=== PATIENT | female | born 1960 | race Caucasian/White ===

== ENCOUNTER 2016-07-05 15:30 | Inpatient (IN) | payer MEDICAID, MEDICARE ==
[~2016-07-05] VITALS: Ht 165.1 cm; Wt 67.6 kg
--- NOTE | 2016-07-05 15:55 | NUR ---
BIB [facility] FOR LOW O2 SPO2=85% PULLER OVER. PATIENT IS FEBRILE WITH RECTAL TEMP OF 100.3. G-TUBE NOTED IN PLACE. RESP IS EVEN AND UNLABORED WITH NAD NOTED. SKIN IS WARM AND NO HOT TO TOUCH. PLACED ON MONITOR. WILL CONTINUOUSLY MONITOR THE PATIENT. DR MURRY AT FOR EVAL.
--- NOTE | 2016-07-05 16:10 | NUR ---
SUCTION THE PATIENT AT BS
[2016-07-05] MEDS ORDERED: FOLI0.8T2 GT (16:16)
[2016-07-05] MEDS ORDERED: AMLO5TAB2 GT (16:16)
[2016-07-05] MEDS ORDERED: LEVE100S GT (16:16)
[2016-07-05] MEDS ORDERED: FAMO40TA7 GT (16:16)
[2016-07-05] MEDS ORDERED: ZINC220C8 GT (16:16)
[2016-07-05] MEDS ORDERED: AMIN30LI4 GT (16:16)
[2016-07-05] MEDS ORDERED: METO5TAB87 GT (16:16)
[2016-07-05] MEDS ORDERED: HYDR-4076 GT (16:16)
[2016-07-05] MEDS ORDERED: ASCO500S2 GT (16:16)
[2016-07-05] MEDS ORDERED: ACET-868 GT (16:16)
[2016-07-05] MEDS ORDERED: FERR220S2 GT (16:16)
[2016-07-05] MEDS ORDERED: ACET-868 PO (16:16)
[2016-07-05] MEDS ORDERED: PANT40SU2 GT (16:16)
[2016-07-05] MEDS ORDERED: NUTR100037 GT (16:16)
[2016-07-05] MEDS ORDERED: INSU100V27 SQ (16:16)
[2016-07-05] MEDS ORDERED: LOSA50TA21 PO (16:16)
[2016-07-05] MEDS ORDERED: INSU100I19 SQ (16:16)
[2016-07-05] MEDS ORDERED: SCOP1PAT TD (16:16)
[2016-07-05 16:22] LABS: BASOPHILS % (AUTO) 0.3 % (0.0-2.0); EOSINOPHILS # (AUTO) 0.3 /CMM (0.0-0.7); EOSINOPHILS % (AUTO) 2.1 % (0.0-6.0); HEMATOCRIT 33 % (33-45); HEMOGLOBIN 10.5 g/dL (11.5-14.8); LYMPHOCYTES % (AUTO) 6.8 % (20.0-44.0); MEAN CORPUSCULAR HEMOGLOBIN 31 PG (26.0-33.0); MEAN CORPUSCULAR HGB CONC 32 g/dl (31.0-36.0); MEAN CORPUSCULAR VOLUME 95 fL (82-100); MONOCYTES # (AUTO) 0.7 /CMM (0.1-1.30); NEUTROPHILS # (AUTO) 12.4 /CMM (1.8-8.9); NEUTROPHILS % (AUTO) 85.8 % (43.0-81.0); PLATELET COUNT (AUTO) 425 /CMM (150-450); RDW COEFFICIENT OF VARIATION 13.9 (11.5-15.0); RED BLOOD CELL COUNT(AUTO) 3.44 MIL/uL (4.0-5.2); WHITE BLOOD COUNT (AUTO) 14.4 K/uL (4.3-11.0)
--- NOTE | 2016-07-05 16:25 | NUR ---
RT AT FOR SUCTION. PATIENT TOLERATED THE PROCEDURE.
[2016-07-05] MEDS ORDERED: IV NS 0.9% 1,000 ML BAG IV ONE (16:30)
[2016-07-05] MEDS ORDERED: PIPERACILLIN /TAZOBACTAM 3.375 G in IV D5W 50 ML IV ONE (16:30)
[2016-07-05] MEDS ORDERED: VANCOMYCIN 1 GM in IV D5W 250 ML IV ONE (16:30)
[2016-07-05 16:32] LABS: APPEARANCE,URINE Slightly Cloudy (CLEAR); BILIRUBIN,URINE Negative (NEGATIVE); BLOOD, URINE Negative Ery/uL (NEGATIVE); COLOR,URINE Yellow (YELLOW); KETONES,URINE Trace (NEGATIVE); LEUKOCYTE ESTERASE ,URINE Trace (NEGATIVE); NITRITE, URINE Negative (NEGATIVE); PROTEIN,URINE 100 mg/dl (NEGATIVE); UGLUCOSE Negative (NEGATIVE); UROBILINOGEN,URINE 0.2 EU/dL (0.2)
[2016-07-05 16:38] LABS: INR 1.11 (0.87-1.13); PROTHROMBIN TIME 11.7 SECS (9.5-12.7)
[2016-07-05 16:39] LABS: ALANINE AMINOTRANSFERASE 15 U/L (12-78); ALBUMIN 2.6 g/dL (3.4-5.0); ALKALINE PHOSPHATASE 189 U/L (46-116); ASPARTATE AMINOTRANSFERASE 10 U/L (15-37); BILIRUBIN,DIRECT 0.2 mg/dL (0.0-0.2); BILIRUBIN,TOTAL 0.5 mg/dL (0.2-1.0); CALCIUM, SERUM 9.5 mg/dL (8.5-10.1); CARBON DIOXIDE 27 mmol/L (21-32); CHLORIDE 102 mmol/L (98-107); CREATININE 2.1 mg/dL (0.6-1.3); GFR 25 mL/min (>60); GLUCOSE 172 mg/dL (74-106); POTASSIUM 3.6 mmol/L (3.5-5.1); SODIUM SERUM 141 mmol/L (136-145); TOTAL PROTEIN, SERUM 8.6 g/dL (6.4-8.2); UREA NITROGEN, BLOOD 16 mg/dL (7-18)
[2016-07-05] MEDS ORDERED: IV NS 0.9% 2,000 ML ONE (16:39)
[2016-07-05] MEDS ORDERED: ACETAMINOPHEN 650 MG/20.3 ML UDC ONE (16:39)
[2016-07-05] MEDS ORDERED: IV SET PRIMARY 1 EA INFUS.SET MC ONE (16:39)
[2016-07-05] MEDS ORDERED: IV SET PRIMARY PUMP SET 1 EA INFUS.SET MC ONE ×3 (16:40→22:44)
[2016-07-05 16:42] LABS: TROPONIN I < 0.017 ng/mL (0.00-0.056)
[2016-07-05 16:44] LABS: ADD URINE CULTURE YES; BACTERIA,URINE None seen /HPF (None Seen); RBC,URINE 0-2 /HPF (0-2); SQUAMOUS EPITHELIAL CELL,UR Few /HPF (None Seen); YEAST,URINE Moderate /HPF (None Seen)
[2016-07-05 16:45] LABS: URINE AMORPHOUS PHOSPHATES Few /HPF (None Seen)
[2016-07-05 16:59] LABS: LACTIC ACID 2.9 mmol/L (0.4-2.0)
[2016-07-05] MEDS ORDERED: ACETAMINOPHEN 160 MG/5 ML GT ONE (17:00)
[2016-07-05 17:20] LABS: PARTIAL THROMBOPLASTIN TIME > 170 SEC (23-34)
--- NOTE | 2016-07-05 17:30 | NUR ---
Patient is resting comfortably in bed with eyes closed. Easily aroused. VSS
--- NOTE | 2016-07-05 18:06 | NUR ---
PAGED DR. SANTIAGO WHO IS COMMUNICATIONS FIELD TECHNICIAN FOR DR. CUNHA, [facility]
--- NOTE | 2016-07-05 18:34 | NUR ---
REPAGED DR. BOYCE ALL AROUND PRESSER FOR DR CUNHA
--- NOTE | 2016-07-05 18:56 | NUR ---
REPORT RECEIVED REPORT FROM LAWRENCE ROGERS
--- NOTE | 2016-07-05 18:57 | NUR ---
PT OBTUNDED. TRACH INTACT AND PATENT, CONNECTED TO C/A 10LPM. NO SOB NOTED. 02 SAT 100%.
--- NOTE | 2016-07-05 19:34 | NUR ---
REPORT GIVEN TO LAWRENCE RAJPUT FOR RAJ BED 115
--- NOTE | 2016-07-05 19:45 | NUR ---
RAJ RN INITIAL NOTES RECEIVED REPORT FROM ER NURSE JUSTIN. PER REPORT PATIENT CAME FROM DIALYSIS, AFTER TX PATIENT BECAME HYPOTENSIVE. RECEIVED PATIENT, OBTUNDED. NO S/S OF PAIN OR DISCOMFORT. RESPIRATIONS EVEN AND UNLABORED. WITH TRACH PORTEX 7 C/D/I. WITH TPIECE FIO2 40%, SPO2 100%. PATIENT SUCTIONED, NOTED WITH THICK YELLOW SECRETIONS. SKIN WARM AND DRY TO TOUCH. WITH GTF, PATENT, INTACT, IN PLACE. NOTED WITH 25ML BLACK RESIDUAL NOTED. PATIENT CONTRACTED. WITH RCW HD CATH. WITH LW 18G PATENT AND INTACT. AFEBRILE AT THIS TIME. BODY ASSESSMENT DONE. NOTED WITH FOUL SMELLING SACRAL PRESSURE SORE. SPECIMEN COLLECTED. HOB KEPT ELEVATED. SIDE RAILS UP AND LOCKED, BED KEPT AT LOWEST POSITION. CALL LIGHT KEPT WITHIN EASY REACH. PENDING ADMISSION ORDERS.
--- NOTE | 2016-07-05 19:54 | NUR ---
PT TRASNFERED PER ACLS PROTOCOL.
[2016-07-05 20:00] VITALS: BP 139/82
--- NOTE | 2016-07-05 20:20 | NUR ---
RAJ RN NOTES CALLED DR. SANTIAGO FOR ADMITTING ORDERS WITH TELEPHONE ORDERS NOTED AND CARRIED OUT.
[2016-07-05] MEDS: RENAL NOVASOURCE 1,000 ML BOTTLE GT PRN (22:41)
[2016-07-05] MEDS ORDERED: SCOPOLAMINE HBR 1 EA PATCH.TD72 TD ONE (22:44)
[2016-07-05] MEDS ORDERED: IV NS 0.9% 250 ML IV ONE (22:44)
[2016-07-05] MEDS: SCOPOLAMINE HBR 1 EA PATCH.TD72 TD SCH (22:51)
[2016-07-05] MEDS ORDERED: FEE PK DOSING 1 MIN EA MC ONE (23:01)
[2016-07-06] VITALS: BP 117/89
[2016-07-06] MEDS: BLOOD SUGAR DIAGNOSTIC 1 EACH STRIP IN SCH ×4 (00:16→18:53)
[2016-07-06] MEDS: INSULIN REGULAR, HUMAN 100 UNIT/ML 3 ML VIAL SQ PRN ×3 (00:17→13:06)
[2016-07-06] MEDS: IPRATROPIUM NEB FS 0.5 MG/2.5 ML AMPUL.NEB NEB SCH ×4 (01:36→20:22)
[2016-07-06] MEDS: ALBUTEROL FS 2.5 MG/0.5 ML VIAL.NEB NEB SCH ×4 (01:36→20:22)
[2016-07-06 04:00] VITALS: BP 107/89
[2016-07-06] MEDS: hydrALAZINE HCL 25 MG TABLET GT SCH ×4 (05:35→18:53)
[2016-07-06] MEDS: PIPERACILLIN /TAZOBACTAM 2.25 G in IV D5W 50 ML IV SCH ×3 (05:40→21:39)
[2016-07-06] MEDS ORDERED: VANCOMYCIN 500 MG in IV D5W 100 ML IV PRN (06:00)
[2016-07-06 06:44] LABS: BASOPHILS % (AUTO) 0.3 % (0.0-2.0); EOSINOPHILS # (AUTO) 0.2 /CMM (0.0-0.7); EOSINOPHILS % (AUTO) 2.2 % (0.0-6.0); HEMATOCRIT 28 % (33-45); HEMOGLOBIN 9.1 g/dL (11.5-14.8); LYMPHOCYTES # (AUTO) 0.8 /CMM (0.8-4.8); LYMPHOCYTES % (AUTO) 8.4 % (20.0-44.0); MEAN CORPUSCULAR HEMOGLOBIN 31 PG (26.0-33.0); MEAN CORPUSCULAR HGB CONC 33 g/dl (31.0-36.0); MEAN CORPUSCULAR VOLUME 95 fL (82-100); MONOCYTES # (AUTO) 0.8 /CMM (0.1-1.30); MONOCYTES % (AUTO) 7.8 % (2.0-12.0); NEUTROPHILS # (AUTO) 8.1 /CMM (1.8-8.9); NEUTROPHILS % (AUTO) 81.3 % (43.0-81.0); PLATELET COUNT (AUTO) 349 /CMM (150-450); RED BLOOD CELL COUNT(AUTO) 2.93 MIL/uL (4.0-5.2); WHITE BLOOD COUNT (AUTO) 9.9 K/uL (4.3-11.0)
--- NOTE | 2016-07-06 06:56 | NUR ---
RAJ RN CLOSING NOTES NO SIGNIFICANT CHANGES OVERNIGHT. SINUS RHYTHM ON TELE. NO RESPIRATORY DISTRESS NOTED. TOLERATING TPIECE, SPO2 100%. AFEBRILE. SKIN WARM AND DRY TO TOUCH. KEPT CLEAN AND DRY. TURNED AND REPOSITIONED Q2 AND PRN. TOLERATING GTF. HOB KEPT ELEVATED. SIDE RAILS UP AND LOCKED. BED KEPT AT LOWEST POSITION. CALL LIGHT KEPT WITHIN EASY REACH. WILL ENDORSE CONTINUITY OF CARE TO AM NURSE.
[2016-07-06 07:07] LABS: ALBUMIN 2.1 g/dL (3.4-5.0); BILIRUBIN,TOTAL 0.3 mg/dL (0.2-1.0); CALCIUM, SERUM 8.5 mg/dL (8.5-10.1); CREATININE 3.2 mg/dL (0.6-1.3); POTASSIUM 3.7 mmol/L (3.5-5.1); TOTAL PROTEIN, SERUM 7.1 g/dL (6.4-8.2)
[2016-07-06 07:26] LABS: LACTIC ACID 2.1 mmol/L (0.4-2.0)
[2016-07-06 08:00] VITALS: BP 134/83
[2016-07-06] MEDS ORDERED: SECONDARY IV SET 1 EA INFUS.SET MC ONE (08:53)
[2016-07-06] MEDS ORDERED: SCOPOLAMINE HBR 1 EA PATCH.TD72 TD SCH (09:00)
[2016-07-06] MEDS ORDERED: INSULIN DETEMIR 100 UNIT/ML CARTRIDGE SQ SCH (09:00)
[2016-07-06] MEDS ORDERED: ACETAMINOPHEN 325 MG TABLET PO PRN (09:00)
[2016-07-06] MEDS ORDERED: ASCORBIC ACID 500 MG TABLET GT SCH (09:00)
[2016-07-06] MEDS ORDERED: PANTOPRAZOLE 40 MG/PACK PACK GT SCH (09:00)
[2016-07-06] MEDS ORDERED: LOSARTAN POTASSIUM 50 MG TABLET PO SCH (09:00)
[2016-07-06] MEDS ORDERED: RENAL NOVASOURCE 1,000 ML BOTTLE GT PRN (09:00)
[2016-07-06] MEDS ORDERED: ZINC SULFATE 220 MG CAPSULE GT SCH (09:00)
[2016-07-06] MEDS ORDERED: AMLODIPINE BESYLATE 5 MG TABLET GT SCH (09:00)
[2016-07-06] MEDS ORDERED: INSULIN LISPRO/ASPART 100 UNIT/ML CARTRIDGE SQ PRN (09:00)
[2016-07-06] MEDS ORDERED: LEVETIRACETAM SOL (5 ML) 100 MG/ML UDC GT SCH (09:00)
[2016-07-06] MEDS ORDERED: VIT B CMPLX 3/FA/VIT C/BIOTIN 1 TAB TABLET GT SCH (09:00)
[2016-07-06] MEDS ORDERED: METOCLOPRAMIDE HCL 10 MG TABLET GT PRN (09:00)
[2016-07-06] MEDS ORDERED: FERROUS SULFATE UDC 300 MG/5 ML UDC GT SCH (09:01)
[2016-07-06] MEDS: FERROUS SULFATE UDC 300 MG/5 ML UDC GT SCH (10:11)
[2016-07-06] MEDS: LEVETIRACETAM SOL (5 ML) 100 MG/ML UDC GT SCH ×2 (10:11→21:39)
[2016-07-06] MEDS: PANTOPRAZOLE 40 MG/PACK PACK GT SCH ×2 (10:11→21:39)
[2016-07-06] MEDS: ASCORBIC ACID 500 MG TABLET GT SCH (10:12)
[2016-07-06] MEDS: ZINC SULFATE 220 MG CAPSULE GT SCH (10:12)
[2016-07-06] MEDS: prednisoLONE ACETATE 1% SUSP 5 ML BOTTLE LEFTEYE SCH (10:12)
[2016-07-06] MEDS: VIT B CMPLX 3/FA/VIT C/BIOTIN 1 TAB TABLET GT SCH (10:12)
[2016-07-06] MEDS: LOSARTAN POTASSIUM 50 MG TABLET GT SCH ×2 (10:13→21:00)
[2016-07-06] MEDS: AMLODIPINE BESYLATE 5 MG TABLET GT SCH ×2 (10:13→21:00)
[2016-07-06] MEDS: HEPARIN SODIUM, PORCINE 5000 UNITS/1 ML VIAL SQ SCH ×2 (10:16→21:00)
[2016-07-06] MEDS: PROSOURCE / PROSTAT (PYXIS) 30 ML UDC GT SCH (10:23)
[2016-07-06] MEDS: INSULIN DETEMIR 100 UNIT/ML CARTRIDGE SQ SCH (10:33)
[2016-07-06 12:00] VITALS: BP 156/83
[2016-07-06] MEDS ORDERED: hydrALAZINE HCL 25 MG TABLET GT SCH (12:00)
[2016-07-06] MEDS ORDERED: HEPARIN SODIUM, PORCINE 5000 UNITS/1 ML VIAL SQ SCH (12:00)
[2016-07-06 16:00] VITALS: BP_SYST 125; BP_SYST 169; BP_DIAS 78; BP_DIAS 90
--- NOTE | 2016-07-06 16:00 | NUR ---
STOMACK RESIDULE DOWN TO 40 ML. GTF RESTARTED.
--- NOTE | 2016-07-06 18:00 | NUR ---
INF A&a SENT, H1N1 SENT, RESP CULT SENT, STOOL CDIF AND STOOL OB SENT. WOUND CARE ORDERED. SOON OFFICE NURSE AND EDGE MOLDER RN NILES NOTIFIED TO ASK PMD FOR DEBRIDEMENT CONSULT.
--- NOTE | 2016-07-06 19:30 | NUR ---
RAJ RN INITIAL NOTES RECEIVED PATIENT OBTUNDED, WITH TRACH. NO S/S OF PAIN OR DISCOMFORT. RESPIRATIONS EVEN AND UNLABORED. SKIN WARM AND DRY TO TOUCH. ON TELE MONITOR SINUS RHYTHM. WITH LH 18G PATENT AND INTACT. WITH GTF TOLERATING WELL AT THIS TIME. GT PATENT, INTACT, IN PLACE. HOB KEPT ELEVATED. SIDE RAILS UP AND LOCKED. BED KEPT AT LOWEST POSITION. CALL LIGHT KEPT WITHIN EASY REACH. WILL CONTINUE TO MONITOR CLOSELY.
[2016-07-06 20:00] VITALS: BP 105/58
[2016-07-07] VITALS: BP 111/55
[2016-07-07] MEDS: RENAL NOVASOURCE 1,000 ML BOTTLE GT PRN (01:19)
[2016-07-07] MEDS: BLOOD SUGAR DIAGNOSTIC 1 EACH STRIP IN SCH ×4 (01:20→18:04)
[2016-07-07] MEDS: INSULIN REGULAR, HUMAN 100 UNIT/ML 3 ML VIAL SQ PRN ×5 (01:21→23:58)
[2016-07-07] MEDS: IPRATROPIUM NEB FS 0.5 MG/2.5 ML AMPUL.NEB NEB SCH ×4 (01:39→19:26)
[2016-07-07] MEDS: ALBUTEROL FS 2.5 MG/0.5 ML VIAL.NEB NEB SCH ×4 (01:39→19:26)
[2016-07-07 04:00] VITALS: BP 127/66
[2016-07-07] MEDS ORDERED: IV NS 0.9% 250 ML IV ONE (04:59)
[2016-07-07] MEDS: PIPERACILLIN /TAZOBACTAM 2.25 G in IV D5W 50 ML IV SCH ×3 (05:09→20:42)
[2016-07-07] MEDS: hydrALAZINE HCL 25 MG TABLET GT SCH ×4 (05:20→17:53)
[2016-07-07] MEDS ORDERED: EPOETIN ALFA (10,000 UNIT) 10,000 UNIT/ML VIAL SQ SCH (07:00)
--- NOTE | 2016-07-07 07:15 | NUR ---
RN RAJ INITIAL NOTES RECEIVED PT FROM PM NURSE NILES, PT RESTING IN BED, NO ACUTE DISTRESS OR SOB AT THIS TIME, ON TELE MON SR WITH HR 87, GTUBE FEEDING NOVASOURCE @ 50 ML/HR, LT WRIST 18 G IV INTACT AND PATENT, ON TPIECE FIO2 40% SAT ABOVE 97%, ALL SAFETY MEASURES INITIATED, SIDE RAILS X2, BED LOW AND LOCKED, CALL LIGHT WITHIN REACH, ALL NEEDS MET AT THIS TIME, WILL CONTINUE TO MONITOR.
--- NOTE | 2016-07-07 07:50 | NUR ---
RAJ RN CLOSING NOTES NO SIGNIFICANT CHANGES OVERNIGHT. TOLERATING GTF AT THIS TIME. NO RESPIRATORY DISTRESS NOTED. TOLERATING 8LPMO2 WITH FIO2 35%, SPO2 99%. KEPT CLEAN AND DRY. WOUND TREATMENT DONE. TURNED AND REPOSITIONED Q2 AND PRN. SIDE RAILS UP AND LOCKED. BED KEPT AT LOWEST POSITION. CALL LIGHT KEPT WITHIN EASY REACH. CONTINUITY OF CARE ENDORSE TO AM NURSE.
[2016-07-07 08:00] VITALS: BP 134/64
[2016-07-07] MEDS: PROSOURCE / PROSTAT (PYXIS) 30 ML UDC GT SCH (08:32)
[2016-07-07 08:33] LABS: BASOPHILS % (AUTO) 0.3 % (0.0-2.0); EOSINOPHILS # (AUTO) 0.4 /CMM (0.0-0.7); EOSINOPHILS % (AUTO) 4.3 % (0.0-6.0); HEMATOCRIT 27 % (33-45); HEMOGLOBIN 9.1 g/dL (11.5-14.8); LYMPHOCYTES # (AUTO) 1.2 /CMM (0.8-4.8); LYMPHOCYTES % (AUTO) 14.5 % (20.0-44.0); MEAN CORPUSCULAR HEMOGLOBIN 31 PG (26.0-33.0); MEAN CORPUSCULAR HGB CONC 34 g/dl (31.0-36.0); MEAN CORPUSCULAR VOLUME 93 fL (82-100); MONOCYTES # (AUTO) 0.7 /CMM (0.1-1.30); MONOCYTES % (AUTO) 7.9 % (2.0-12.0); PLATELET COUNT (AUTO) 331 /CMM (150-450); RDW COEFFICIENT OF VARIATION 14.4 (11.5-15.0); WHITE BLOOD COUNT (AUTO) 8.3 K/uL (4.3-11.0)
[2016-07-07] MEDS: LEVETIRACETAM SOL (5 ML) 100 MG/ML UDC GT SCH ×2 (08:33→20:46)
[2016-07-07] MEDS: FERROUS SULFATE UDC 300 MG/5 ML UDC GT SCH (08:33)
[2016-07-07] MEDS: LOSARTAN POTASSIUM 50 MG TABLET GT SCH ×2 (08:34→20:48)
[2016-07-07] MEDS: PANTOPRAZOLE 40 MG/PACK PACK GT SCH ×2 (08:34→20:51)
[2016-07-07] MEDS: FAMOTIDINE (20 MG) 20 MG TABLET GT SCH (08:34)
[2016-07-07] MEDS: ZINC SULFATE 220 MG CAPSULE GT SCH (08:34)
[2016-07-07] MEDS: VIT B CMPLX 3/FA/VIT C/BIOTIN 1 TAB TABLET GT SCH (08:34)
[2016-07-07] MEDS: ASCORBIC ACID 500 MG TABLET GT SCH (08:34)
[2016-07-07] MEDS: INSULIN DETEMIR 100 UNIT/ML CARTRIDGE SQ SCH (08:35)
[2016-07-07] MEDS: HEPARIN SODIUM, PORCINE 5000 UNITS/1 ML VIAL SQ SCH ×2 (08:36→20:32)
[2016-07-07] MEDS: AMLODIPINE BESYLATE 5 MG TABLET GT SCH ×2 (08:36→20:47)
[2016-07-07] MEDS: prednisoLONE ACETATE 1% SUSP 5 ML BOTTLE LEFTEYE SCH (08:37)
[2016-07-07 08:38] LABS: CALCIUM, SERUM 9.1 mg/dL (8.5-10.1); CREATININE 4.8 mg/dL (0.6-1.3); MAGNESIUM 1.7 mg/dL (1.8-2.4); PHOSPHORUS 2.2 mg/dL (2.5-4.9); POTASSIUM 3.7 mmol/L (3.5-5.1)
--- NOTE | 2016-07-07 09:51 | NUR ---
WOUND CARE CONSULT: PT PRESENTS WITH SACRAL STAGE IV ULCER, PRESENT ON ADMISSION. PT ALSO NOTED TO HAVE SCARRING TO BILATERAL LATERAL FEET/HEELS, PRESENT ON ADMISSION WITH LOWER EXTREMITY CONTRACTURES. PT ON HAIR ISOFLEX LOW AIRLOSS BED. PT TO BE TURNED AND REPOSITIONED EVERY 2 HRS PT CONDITION PERMITS, HEELS FLOATED. CABRERA SCORE IS 10. RECOMMEND SURGICAL CONSULT FOR SACRAL WOUND. ALL SKIN AND WOUND RECOMMENDATIONS DISCUSSED WITH NURSING STAFF. IN AGREEMENT WITH PLAN OF CARE. Addendum: 07/07/16 at 0954 by FIDEL MICHAEL WNDNU Amended: Links added.
[2016-07-07] MEDS ORDERED: Z GUARD REMEDY 2 OZ OINT TP PRN (10:00)
[2016-07-07] MEDS ORDERED: HYDROGEL DRESSING 90 GM TUBE TP PRN (10:00)
[2016-07-07] MEDS: DAKINS QUARTER STRENGTH (0.125%) 480 ML BOTTLE TOP SCH (11:38)
[2016-07-07] MEDS: Z GUARD REMEDY 2 OZ OINT TP SCH (11:38)
[2016-07-07] MEDS: HYDROGEL DRESSING 90 GM TUBE TP SCH (11:38)
--- NOTE | 2016-07-07 11:50 | NUR ---
RN RAJ NOTES PT WILL BE STARTING HD WITH HD NURSE MIKEY, WILL NEED TO MONITOR BP ABOVE 130'S.
[2016-07-07 12:00] VITALS: BP_SYST 149; BP_DIAS 75; BP_DIAS 79
[2016-07-07] MEDS: ACETYLCYSTEINE 10% SOLN 400 MG/4 ML VIAL NEB SCH ×2 (12:16→15:51)
--- NOTE | 2016-07-07 15:41 | NUR ---
RN RAJ NOTES PT REPORTED WITH C-DIFF FROM [facility], CHARGE NURSE SOON AWARE BUT NEEDS TO FIND A ROOM FOR PT TO ISOLATE.
[2016-07-07 16:00] VITALS: BP 144/84
--- NOTE | 2016-07-07 17:53 | NUR ---
RN RAJ NOTES PT RECEIVING HD WITH NURSE MIKEY, WILL NOT GIVE BP MEDS.
[2016-07-07] MEDS ORDERED: ALBUMIN 25% 25 GM in PREMIX 1 EA IV PRN (18:00)
[2016-07-07] MEDS ORDERED: NEUTRA PHOS 1 POWD.PACKET NG ONE (18:00)
[2016-07-07] MEDS ORDERED: SECONDARY IV SET 1 EA INFUS.SET MC ONE (18:07)
--- NOTE | 2016-07-07 18:12 | NUR ---
RN RAJ NOTES PT IS RECEIVING DIALAISIS RIGHT NOW, NO MEDS GIVEN.
--- NOTE | 2016-07-07 18:35 | NUR ---
RN RAJ ENDING NOTES NO ACUTE CHANGES NOTED, PT IS POSITIVE CDIFF AND WILL BE CHANGING ROOMS WHEN AVAILABLE, PT RECEIVING HD WITH NURSE MIKEY, VS STABLE AT THIS TIME, WILL ENDORSE TO PM NURSE FOR WOUND TX, SPOKE WITH DAUGHTER SHAILESH TODAY AND WANTED UPDATE ON PT, LT WRIST IV INTACT, RT CHEST WALL HD INTACT, RT FEMORAL HD CATH INTACT, ALL DUE MEDS GIVEN, WILL ENDORSE TO PM NURSE FOR CONTINUITY OF CARE.
--- NOTE | 2016-07-07 19:48 | NUR ---
RAJ/RN RECEIVED PT W/HD IN PROGRESS.
[2016-07-07 20:00] VITALS: BP_SYST 102; BP_SYST 107; BP_DIAS 55; BP_DIAS 67
[2016-07-07] MEDS ORDERED: VANCOMYCIN HCL 125 MG/2.5 ML ORAL.SUSP ONE (21:34)
[2016-07-07] MEDS: VANCOMYCIN HCL 125 MG/2.5 ML ORAL.SUSP PO SCH (21:41)
--- NOTE | 2016-07-07 22:15 | NUR ---
RAJ/LAWRENCE PT TRANSFERRED TO ROOM 110 FR II5-2 FOR C-DIFF ISOLATION.
[2016-07-08] VITALS (8 sets, daily range): BP systolic 93–151; BP diastolic 35–73
[2016-07-08] MEDS: ACETYLCYSTEINE 10% SOLN 400 MG/4 ML VIAL NEB SCH ×4 (00:28→23:59)
[2016-07-08] MEDS: IPRATROPIUM NEB FS 0.5 MG/2.5 ML AMPUL.NEB NEB SCH ×4 (00:30→20:28)
[2016-07-08] MEDS: ALBUTEROL FS 2.5 MG/0.5 ML VIAL.NEB NEB SCH ×4 (00:30→20:28)
[2016-07-08] MEDS: hydrALAZINE HCL 25 MG TABLET GT SCH ×5 (01:15→23:12)
[2016-07-08] MEDS: BLOOD SUGAR DIAGNOSTIC 1 EACH STRIP IN SCH ×5 (01:17→23:17)
[2016-07-08] MEDS: RENAL NOVASOURCE 1,000 ML BOTTLE GT PRN (02:20)
[2016-07-08] MEDS ORDERED: IV NS 0.9% 250 ML IV ONE (03:28)
--- NOTE | 2016-07-08 03:37 | NUR ---
RAJ/RN NEEDS FREQUENT SUCTIONING FOR PALYELLOW TO GALDAMEZ SECRETIONS.TRACH CRE DONE.SAT OF 99-100%
[2016-07-08] MEDS: PIPERACILLIN /TAZOBACTAM 2.25 G in IV D5W 50 ML IV SCH ×3 (04:51→21:57)
--- NOTE | 2016-07-08 06:00 | NUR ---
RAJ NOTES. VITAL SIGNS STABLE.CONTINUES TO SUCTION PALE YELLOW TO GALDAMEZ SECRETIONS VIA TRACH.
[2016-07-08] MEDS: INSULIN REGULAR, HUMAN 100 UNIT/ML 3 ML VIAL SQ PRN ×4 (06:27→23:24)
--- NOTE | 2016-07-08 07:20 | NUR ---
RAJ NOTES REPORT AND CARE OF PT GIVEN TO ERICA BRAVO
[2016-07-08 07:22] LABS: CALCIUM, SERUM 8.4 mg/dL (8.5-10.1); CREATININE 3.1 mg/dL (0.6-1.3); PHOSPHORUS 1.2 mg/dL (2.5-4.9); POTASSIUM 3.4 mmol/L (3.5-5.1)
[2016-07-08] MEDS: LEVETIRACETAM SOL (5 ML) 100 MG/ML UDC GT SCH ×2 (08:17→21:48)
[2016-07-08] MEDS: PROSOURCE / PROSTAT (PYXIS) 30 ML UDC GT SCH (08:17)
[2016-07-08] MEDS: FERROUS SULFATE UDC 300 MG/5 ML UDC GT SCH (08:18)
[2016-07-08] MEDS: PANTOPRAZOLE 40 MG/PACK PACK GT SCH ×2 (08:18→21:48)
[2016-07-08] MEDS: ZINC SULFATE 220 MG CAPSULE GT SCH (08:18)
[2016-07-08] MEDS: VIT B CMPLX 3/FA/VIT C/BIOTIN 1 TAB TABLET GT SCH (08:18)
[2016-07-08] MEDS: AMLODIPINE BESYLATE 5 MG TABLET GT SCH ×2 (08:19→21:48)
[2016-07-08] MEDS: VANCOMYCIN HCL 125 MG/2.5 ML ORAL.SUSP PO SCH ×4 (08:19→21:00)
[2016-07-08] MEDS: LOSARTAN POTASSIUM 50 MG TABLET GT SCH ×2 (08:19→21:49)
[2016-07-08] MEDS: prednisoLONE ACETATE 1% SUSP 5 ML BOTTLE LEFTEYE SCH (08:19)
[2016-07-08] MEDS: ASCORBIC ACID 500 MG TABLET GT SCH (08:19)
[2016-07-08] MEDS: DAKINS QUARTER STRENGTH (0.125%) 480 ML BOTTLE TOP SCH (08:20)
[2016-07-08] MEDS: Z GUARD REMEDY 2 OZ OINT TP SCH (08:20)
[2016-07-08] MEDS: HYDROGEL DRESSING 90 GM TUBE TP SCH (08:20)
[2016-07-08] MEDS: INSULIN DETEMIR 100 UNIT/ML CARTRIDGE SQ SCH (08:26)
[2016-07-08] MEDS: HEPARIN SODIUM, PORCINE 5000 UNITS/1 ML VIAL SQ SCH ×2 (09:00→21:43)
[2016-07-08] MEDS: FLUCONAZOLE (100 MG) 100 MG TABLET GT SCH (12:07)
[2016-07-08] MEDS ORDERED: NEUTRA PHOS 1 POWD.PACKET NG ONE (15:30)
[2016-07-08] MEDS: SCOPOLAMINE HBR 1 EA PATCH.TD72 TD SCH (21:49)
[2016-07-09] MEDS: ALBUTEROL FS 2.5 MG/0.5 ML VIAL.NEB NEB SCH ×4 (01:47→19:48)
[2016-07-09] MEDS: IPRATROPIUM NEB FS 0.5 MG/2.5 ML AMPUL.NEB NEB SCH ×4 (01:47→19:48)
[2016-07-09 02:28] VITALS: BP 126/82
[2016-07-09] MEDS: hydrALAZINE HCL 25 MG TABLET GT SCH ×3 (05:20→17:48)
[2016-07-09] MEDS: PIPERACILLIN /TAZOBACTAM 2.25 G in IV D5W 50 ML IV SCH ×3 (05:33→21:25)
[2016-07-09] MEDS: BLOOD SUGAR DIAGNOSTIC 1 EACH STRIP IN SCH ×3 (06:18→18:16)
[2016-07-09] MEDS: INSULIN REGULAR, HUMAN 100 UNIT/ML 3 ML VIAL SQ PRN ×2 (06:22→18:15)
--- NOTE | 2016-07-09 06:59 | NUR ---
c-dIFF iSOLATION hOB UP TRACH COLLAR 10 LITRES nON VERBAL AWARE WHEN DAUGHTER ENTERS THE ROOM. uPPER AND LOWER CONTRACTIONS. tELE SR 70S. lYING ON AIR MATRESS. gT FEEDING nOVASOURCE @ 50 CC HR NO RISDUAL NOTED. iV TKO INFUSING TO LEFT WRIST. SACRAL WOUND STATGE 3 CHANGED DRESSING AT 0500 DUE TO BE SOILED. lOOSE DARK GREEN STOOL X3 DURING THE SHIFT
[2016-07-09] MEDS: ACETYLCYSTEINE 10% SOLN 400 MG/4 ML VIAL NEB SCH ×3 (07:17→23:47)
[2016-07-09 07:43] LABS: CALCIUM, SERUM 8.8 mg/dL (8.5-10.1); CREATININE 4.6 mg/dL (0.6-1.3); POTASSIUM 3.7 mmol/L (3.5-5.1)
[2016-07-09 07:57] LABS: PHOSPHORUS 1.9 mg/dL (2.5-4.9)
[2016-07-09 08:00] VITALS: BP 115/68
[2016-07-09] MEDS: INSULIN DETEMIR 100 UNIT/ML CARTRIDGE SQ SCH (09:00)
[2016-07-09] MEDS: FERROUS SULFATE UDC 300 MG/5 ML UDC GT SCH (09:01)
[2016-07-09] MEDS: LEVETIRACETAM SOL (5 ML) 100 MG/ML UDC GT SCH ×2 (09:01→21:25)
[2016-07-09] MEDS: FLUCONAZOLE (100 MG) 100 MG TABLET GT SCH (09:01)
[2016-07-09] MEDS: AMLODIPINE BESYLATE 5 MG TABLET GT SCH ×2 (09:02→21:00)
[2016-07-09] MEDS: PROSOURCE / PROSTAT (PYXIS) 30 ML UDC GT SCH (09:02)
[2016-07-09] MEDS: VIT B CMPLX 3/FA/VIT C/BIOTIN 1 TAB TABLET GT SCH (09:02)
[2016-07-09] MEDS: LOSARTAN POTASSIUM 50 MG TABLET GT SCH ×2 (09:02→21:00)
[2016-07-09] MEDS: FAMOTIDINE (20 MG) 20 MG TABLET GT SCH (09:02)
[2016-07-09] MEDS: DAKINS QUARTER STRENGTH (0.125%) 480 ML BOTTLE TOP SCH (09:03)
[2016-07-09] MEDS: PANTOPRAZOLE 40 MG/PACK PACK GT SCH ×2 (09:03→21:26)
[2016-07-09] MEDS: ASCORBIC ACID 500 MG TABLET GT SCH (09:03)
[2016-07-09] MEDS: ZINC SULFATE 220 MG CAPSULE GT SCH (09:03)
[2016-07-09] MEDS: HYDROGEL DRESSING 90 GM TUBE TP SCH (09:03)
[2016-07-09] MEDS: Z GUARD REMEDY 2 OZ OINT TP SCH (09:04)
[2016-07-09] MEDS: prednisoLONE ACETATE 1% SUSP 5 ML BOTTLE LEFTEYE SCH (09:04)
[2016-07-09] MEDS: VANCOMYCIN HCL 125 MG/2.5 ML ORAL.SUSP PO SCH ×4 (09:05→21:27)
[2016-07-09] MEDS: HEPARIN SODIUM, PORCINE 5000 UNITS/1 ML VIAL SQ SCH ×2 (09:06→21:26)
--- NOTE | 2016-07-09 17:23 | NUR ---
NOTE SPOKE TO DR MONTENEGRO REGARDING PHOS 1.9 STATED ITS OK, THAT PT IS A DIAYLSIS PT
[2016-07-09 18:00] VITALS: BP 102/60
--- NOTE | 2016-07-09 19:30 | NUR ---
AS400 ADMINISTRATOR INITIAL NOTES RECEIVED PATIENT OBTUNDED. NO S/S OF PAIN OR DISCOMFORT. RESPIRATIONS EVEN AND UNLABORED WITH TPIECE 8LPMO2 FIO2 35%. ON TELE MONITOR SINUS RHYTH. SKIN WARM AND DRY TO TOUCH. ISOLATION PRECAUTIONS OBSERVED. TOLERATING GTF. GT PATENT, INTACT, IN PLACE. HOB KEPT ELEVATED. SIDE RAILS UP AND LOCKED. BED KEPT AT LOWEST POSITION. CALL LIGHT KEPT WITHIN EASY REACH. WILL CONTINUE TO MONITOR.
[2016-07-09] MEDS ORDERED: IV SET PRIMARY PUMP SET 1 EA INFUS.SET MC ONE (21:27)
[2016-07-09] MEDS: RENAL NOVASOURCE 1,000 ML BOTTLE GT PRN (21:27)
[2016-07-09] MEDS ORDERED: IV NS 0.9% 250 ML IV ONE (21:27)
[2016-07-09] MEDS ORDERED: SECONDARY IV SET 1 EA INFUS.SET MC ONE (21:28)
[2016-07-10] VITALS: BP 137/70
[2016-07-10] MEDS: BLOOD SUGAR DIAGNOSTIC 1 EACH STRIP IN SCH ×4 (00:36→17:21)
[2016-07-10] MEDS: INSULIN REGULAR, HUMAN 100 UNIT/ML 3 ML VIAL SQ PRN ×3 (00:37→13:10)
[2016-07-10] MEDS: hydrALAZINE HCL 25 MG TABLET GT SCH ×4 (00:38→17:22)
[2016-07-10] MEDS: ALBUTEROL FS 2.5 MG/0.5 ML VIAL.NEB NEB SCH ×4 (01:40→20:20)
[2016-07-10] MEDS: IPRATROPIUM NEB FS 0.5 MG/2.5 ML AMPUL.NEB NEB SCH ×4 (01:40→20:20)
[2016-07-10 04:00] VITALS: BP 96/58
[2016-07-10] MEDS: PIPERACILLIN /TAZOBACTAM 2.25 G in IV D5W 50 ML IV SCH ×3 (05:08→21:13)
--- NOTE | 2016-07-10 06:44 | NUR ---
EQUIPMENT COORDINATOR CLOSING NOTES NO SIGNIFICANT CHANGES OVERNIGHT. NO RESPIRATORY DISTRESS NOTED. NO SEIZURE ACTIVITY. KEPT CLEAN AND DRY. TOLERATED GTF. WOUND TREATMENT DONE ORDERED. TRACH CARE DONE. HOB KEPT ELEVATED . SIDE RAILS UP AND LOCKED. BED KEPT AT LOWEST POSITION. ISOLATION PRECAUTIONS OBSERVED. WILL ENDORSE CONTINUITY OF CARE TO AM NURSE.
[2016-07-10] MEDS: ACETYLCYSTEINE 10% SOLN 400 MG/4 ML VIAL NEB SCH ×3 (07:11→23:58)
--- NOTE | 2016-07-10 07:30 | NUR ---
RN INITIAL NOTES RECEIVED PATIENT RESTING IN BED. OBTUNDED. OPENS EYES SPONTANEOUSLY. CONTRACTED. BREATHING WNL WITH MECH VENT. PLAN FOR SURGICAL CONSULT, WILL ASK DR. MORALES TODAY. ISOLATION PRECAUTIONS OBSERVED. REPOSITIONED. DISCUSSED PLAN OF CARE. CALL LIGHT IN REACH
[2016-07-10 08:00] VITALS: BP 108/61
[2016-07-10 08:14] LABS: BASOPHILS % (AUTO) 0.3 % (0.0-2.0); EOSINOPHILS # (AUTO) 0.3 /CMM (0.0-0.7); EOSINOPHILS % (AUTO) 3.5 % (0.0-6.0); HEMATOCRIT 23 % (33-45); HEMOGLOBIN 7.6 g/dL (11.5-14.8); LYMPHOCYTES % (AUTO) 12.5 % (20.0-44.0); MEAN CORPUSCULAR HEMOGLOBIN 31 PG (26.0-33.0); MEAN CORPUSCULAR HGB CONC 33 g/dl (31.0-36.0); MEAN CORPUSCULAR VOLUME 95 fL (82-100); MONOCYTES # (AUTO) 0.6 /CMM (0.1-1.30); MONOCYTES % (AUTO) 7.6 % (2.0-12.0); NEUTROPHILS # (AUTO) 6.2 /CMM (1.8-8.9); NEUTROPHILS % (AUTO) 76.1 % (43.0-81.0); PLATELET COUNT (AUTO) 267 /CMM (150-450); RDW COEFFICIENT OF VARIATION 14.4 (11.5-15.0); RED BLOOD CELL COUNT(AUTO) 2.44 MIL/uL (4.0-5.2); WHITE BLOOD COUNT (AUTO) 8.1 K/uL (4.3-11.0)
[2016-07-10] MEDS: FERROUS SULFATE UDC 300 MG/5 ML UDC GT SCH (08:14)
[2016-07-10] MEDS: PANTOPRAZOLE 40 MG/PACK PACK GT SCH ×2 (08:15→21:14)
[2016-07-10] MEDS: PROSOURCE / PROSTAT (PYXIS) 30 ML UDC GT SCH (08:15)
[2016-07-10] MEDS: FLUCONAZOLE (100 MG) 100 MG TABLET GT SCH (08:15)
[2016-07-10] MEDS: ZINC SULFATE 220 MG CAPSULE GT SCH (08:15)
[2016-07-10] MEDS: VIT B CMPLX 3/FA/VIT C/BIOTIN 1 TAB TABLET GT SCH (08:15)
[2016-07-10] MEDS: LEVETIRACETAM SOL (5 ML) 100 MG/ML UDC GT SCH ×2 (08:15→21:13)
[2016-07-10] MEDS: AMLODIPINE BESYLATE 5 MG TABLET GT SCH ×2 (08:15→21:14)
[2016-07-10] MEDS: ASCORBIC ACID 500 MG TABLET GT SCH (08:15)
[2016-07-10] MEDS: LOSARTAN POTASSIUM 50 MG TABLET GT SCH ×2 (08:16→21:14)
[2016-07-10] MEDS: VANCOMYCIN HCL 125 MG/2.5 ML ORAL.SUSP PO SCH ×4 (08:17→21:16)
[2016-07-10] MEDS: HEPARIN SODIUM, PORCINE 5000 UNITS/1 ML VIAL SQ SCH ×2 (08:17→21:15)
[2016-07-10] MEDS: INSULIN DETEMIR 100 UNIT/ML CARTRIDGE SQ SCH (08:18)
[2016-07-10] MEDS: HYDROGEL DRESSING 90 GM TUBE TP SCH (08:19)
[2016-07-10] MEDS: Z GUARD REMEDY 2 OZ OINT TP SCH (08:20)
[2016-07-10] MEDS: DAKINS QUARTER STRENGTH (0.125%) 480 ML BOTTLE TOP SCH ×2 (08:20→21:18)
[2016-07-10] MEDS: prednisoLONE ACETATE 1% SUSP 5 ML BOTTLE LEFTEYE SCH (08:20)
[2016-07-10 08:32] LABS: ALBUMIN 1.9 g/dL (3.4-5.0); BILIRUBIN,TOTAL 0.4 mg/dL (0.2-1.0); CALCIUM, SERUM 8.3 mg/dL (8.5-10.1); CREATININE 3.5 mg/dL (0.6-1.3); MAGNESIUM 1.9 mg/dL (1.8-2.4); PHOSPHORUS 1.4 mg/dL (2.5-4.9); POTASSIUM 3.7 mmol/L (3.5-5.1); TOTAL PROTEIN, SERUM 6.4 g/dL (6.4-8.2)
[2016-07-10] MEDS ORDERED: NEUTRA PHOS 1 POWD.PACKET GT ONE (15:30)
[2016-07-10 16:00] VITALS: BP 111/80
[2016-07-10] MEDS ORDERED: SILVER NITRATE APPLICATOR 1 EA BOX TP ONE (17:00)
[2016-07-10] MEDS ORDERED: LIDOCAINE 1%-EPI 1:100,000 20 ML VIAL TP ONE (17:00)
[2016-07-10] MEDS: RENAL NOVASOURCE 1,000 ML BOTTLE GT PRN (17:20)
--- NOTE | 2016-07-10 19:30 | NUR ---
RN CLOSING NOTES LEFT PATIENT IN STABLE CONDITION- UNCHANGED. BREATHING EVEN AND UNLABORED, LOC UNCHANGED. DR. HARVEY SAID NO NEED FOR NPO @ MIDNIGHT. DR. MORALES AWARE OF H/H LEVEL, NO NEW ORDER. NO ACTIVE BLEEDING. CALL LIGHT IN REACH.
--- NOTE | 2016-07-10 19:30 | NUR ---
HAND II BLOCKER INITIAL NOTES RECEIVED PATIENT OBTUNDED, OPENS EYES. NO S/S OF PAIN OR DISCOMFORT. RESPIRATIONS EVEN AND UNLABORED. WITH TPIECE 8LPMO2 35% FIO2. TRACH C/D/I. ON TELE MONITOR SINUS RHYTHM. SKIN WARM AND DRY TO TOUCH. TOLERATING GTF. GT PATENT INTACT, IN PLACE. FOR BEDSIDE DEBRIDEMENT IN AM. ISOLATION PRECAUTIONS OBSERVED. HOB KEPT ELEVATED. SIDE RAILS UP AN LOCKED. BED KEPT AT LOWEST POSITION. CALL LIGHT KEPT WITHIN EASY REACH. WILL CONTINUE TO MONITOR.
[2016-07-10 20:00] VITALS: BP 141/75
[2016-07-11] VITALS: BP 118/66
[2016-07-11] MEDS: BLOOD SUGAR DIAGNOSTIC 1 EACH STRIP IN SCH ×5 (00:43→23:11)
[2016-07-11] MEDS: INSULIN REGULAR, HUMAN 100 UNIT/ML 3 ML VIAL SQ PRN ×5 (00:44→23:11)
[2016-07-11] MEDS: ALBUTEROL FS 2.5 MG/0.5 ML VIAL.NEB NEB SCH ×2 (01:41→07:42)
[2016-07-11] MEDS: IPRATROPIUM NEB FS 0.5 MG/2.5 ML AMPUL.NEB NEB SCH ×4 (01:41→19:35)
[2016-07-11 04:00] VITALS: BP 116/65
[2016-07-11] MEDS: PIPERACILLIN /TAZOBACTAM 2.25 G in IV D5W 50 ML IV SCH ×3 (05:36→21:02)
[2016-07-11] MEDS: hydrALAZINE HCL 25 MG TABLET GT SCH ×4 (05:40→18:20)
[2016-07-11] MEDS ORDERED: IV NS 0.9% 250 ML IV ONE (05:42)
--- NOTE | 2016-07-11 06:54 | NUR ---
AUTOMOTIVE POWER ELECTRONICS ENGINEER CLOSING NOTES NO SIGNIFICANT CHANGES OVERNIGHT. NO RESPIRATORY DISTRESS NOTED. ON TPIECE 8LPMO2 FIO2 35%. SKIN WARM AND DRY TO TOUCH. TOLERATING GTF. PATENT, INTACT, IN PLACE. STILL WITH LOOSE STOOLX2. KEPT CLEAN AND DRY. TURNED AND REPOSITIONED Q2 AND PRN. HOB KEPT ELEVATED. SIDE RAILS UP AND LOCKED. BED KEPT AT LOWEST POSITION. CALL LIGHT KEPT WITHIN EASY REACH. WILL ENDORSE CONTINUITY OF CARE TO AM NURSE.
[2016-07-11] MEDS: ACETYLCYSTEINE 10% SOLN 400 MG/4 ML VIAL NEB SCH ×3 (07:42→23:16)
[2016-07-11 08:00] VITALS: BP 103/58
[2016-07-11 08:01] LABS: CALCIUM, SERUM 8.8 mg/dL (8.5-10.1); PHOSPHORUS 1.7 mg/dL (2.5-4.9); POTASSIUM 3.5 mmol/L (3.5-5.1)
[2016-07-11] MEDS: DAKINS QUARTER STRENGTH (0.125%) 480 ML BOTTLE TOP SCH ×3 (09:00→18:24)
[2016-07-11] MEDS: AMLODIPINE BESYLATE 5 MG TABLET GT SCH ×2 (09:00→21:21)
[2016-07-11] MEDS: LOSARTAN POTASSIUM 50 MG TABLET GT SCH ×2 (09:00→21:21)
[2016-07-11] MEDS: VIT B CMPLX 3/FA/VIT C/BIOTIN 1 TAB TABLET GT SCH (09:08)
[2016-07-11] MEDS: FERROUS SULFATE UDC 300 MG/5 ML UDC GT SCH (09:08)
[2016-07-11] MEDS: LEVETIRACETAM SOL (5 ML) 100 MG/ML UDC GT SCH ×2 (09:08→21:02)
[2016-07-11] MEDS: PROSOURCE / PROSTAT (PYXIS) 30 ML UDC GT SCH (09:08)
[2016-07-11] MEDS: ZINC SULFATE 220 MG CAPSULE GT SCH (09:08)
[2016-07-11] MEDS: FLUCONAZOLE (100 MG) 100 MG TABLET GT SCH (09:09)
[2016-07-11] MEDS: PANTOPRAZOLE 40 MG/PACK PACK GT SCH ×2 (09:09→21:02)
[2016-07-11] MEDS: ASCORBIC ACID 500 MG TABLET GT SCH (09:09)
[2016-07-11] MEDS: FAMOTIDINE (20 MG) 20 MG TABLET GT SCH (09:09)
[2016-07-11] MEDS: Z GUARD REMEDY 2 OZ OINT TP SCH (09:11)
[2016-07-11] MEDS: prednisoLONE ACETATE 1% SUSP 5 ML BOTTLE LEFTEYE SCH (09:13)
[2016-07-11] MEDS: VANCOMYCIN HCL 125 MG/2.5 ML ORAL.SUSP PO SCH ×4 (09:15→21:03)
[2016-07-11] MEDS: INSULIN DETEMIR 100 UNIT/ML CARTRIDGE SQ SCH (09:20)
[2016-07-11 12:00] VITALS: BP 122/69
[2016-07-11] MEDS: HEPARIN SODIUM, PORCINE 5000 UNITS/1 ML VIAL SQ SCH ×2 (12:45→21:03)
[2016-07-11] MEDS: ALBUTEROL FS 2.5 MG/3 ML VIAL.NEB NEB SCH ×2 (13:14→19:35)
[2016-07-11 16:00] VITALS: BP 123/65
[2016-07-11] MEDS ORDERED: NEUTRA PHOS 1 POWD.PACKET GT ONE (17:30)
[2016-07-11 20:00] VITALS: BP 135/71
[2016-07-11 20:10] LABS: SUBTYPE NOVEL H1N1 PCR Negative (Negative)
[2016-07-11] MEDS: SCOPOLAMINE HBR 1 EA PATCH.TD72 TD SCH (21:21)
[2016-07-12] VITALS: BP 127/76
[2016-07-12] MEDS: ACETYLCYSTEINE 10% SOLN 400 MG/4 ML VIAL NEB SCH ×3 (01:00→13:20)
[2016-07-12] MEDS: IPRATROPIUM NEB FS 0.5 MG/2.5 ML AMPUL.NEB NEB SCH ×4 (01:43→19:51)
[2016-07-12] MEDS: ALBUTEROL FS 2.5 MG/3 ML VIAL.NEB NEB SCH ×4 (01:43→19:51)
[2016-07-12 04:00] VITALS: BP 125/62
[2016-07-12] MEDS ORDERED: IV NS 0.9% 250 ML IV ONE (04:04)
[2016-07-12] MEDS: PIPERACILLIN /TAZOBACTAM 2.25 G in IV D5W 50 ML IV SCH ×3 (04:20→21:13)
[2016-07-12] MEDS: hydrALAZINE HCL 25 MG TABLET GT SCH ×5 (05:02→23:31)
[2016-07-12] MEDS: BLOOD SUGAR DIAGNOSTIC 1 EACH STRIP IN SCH ×4 (05:10→23:31)
[2016-07-12] MEDS: INSULIN REGULAR, HUMAN 100 UNIT/ML 3 ML VIAL SQ PRN ×4 (05:10→23:34)
[2016-07-12] MEDS: ONDANSETRON HCL/PF 4 MG/2 ML VIAL IV PRN (06:13)
--- NOTE | 2016-07-12 06:16 | NUR ---
rn:td: pt had one episode of vomiting after suctioning. pt tf placed on hold, aspiration precautions in place and pt given zofran per md orders. pt provided oral care as well. will endorse to oncoming shift. vss.
[2016-07-12 07:48] LABS: CALCIUM, SERUM 8.6 mg/dL (8.5-10.1); CREATININE 3.5 mg/dL (0.6-1.3); PHOSPHORUS 2.1 mg/dL (2.5-4.9); POTASSIUM 3.3 mmol/L (3.5-5.1)
[2016-07-12 08:00] VITALS: BP 127/70
--- NOTE | 2016-07-12 08:00 | NUR ---
TELE1/RN AM SHIFT INITIAL NOTES I RECEIVED PATIENT ASLEEP IN BED. PATIENT IS OBTUNDED. NO GRIMACING NOTED, PATIENT IS COMFORTABLE. PATIENT SUCTIONED, NO SOB, NO S/S OF INFECTION. FLUSHED PATIENTS IV/ S/L WITH NO S/S OF INFECTION OR INFILTRATION. PATIENT IS COOL AEROSOL 35%, PATIENT SATURATED AT 99%. PATIENT IS ON TELE WITH SINUS RHYTHM. PATIENTS HEART RATE WAS 90BPM GTUBE FEEDING HELD DUE TO REPORT OF EMESIS AT 0630. GTUBE RESIDUAL FOUND 45CC. DVT PUMP MENTAL HEALTH SOCIAL WORKER LIGHT WITHIN REACH, SAFETY IS MAINTAINED. ISOLATION OBSERVED, ONGOING MONITORING
[2016-07-12] MEDS: ZINC SULFATE 220 MG CAPSULE GT SCH (08:56)
[2016-07-12] MEDS: FLUCONAZOLE (100 MG) 100 MG TABLET GT SCH (08:56)
[2016-07-12] MEDS: VANCOMYCIN HCL 125 MG/2.5 ML ORAL.SUSP PO SCH ×4 (08:56→21:13)
[2016-07-12] MEDS: LEVETIRACETAM SOL (5 ML) 100 MG/ML UDC GT SCH ×2 (08:56→21:13)
[2016-07-12] MEDS: PROSOURCE / PROSTAT (PYXIS) 30 ML UDC GT SCH (08:56)
[2016-07-12] MEDS: FERROUS SULFATE UDC 300 MG/5 ML UDC GT SCH (08:57)
[2016-07-12] MEDS: LOSARTAN POTASSIUM 50 MG TABLET GT SCH ×2 (08:57→21:14)
[2016-07-12] MEDS: AMLODIPINE BESYLATE 5 MG TABLET GT SCH ×2 (08:57→21:14)
[2016-07-12] MEDS: VIT B CMPLX 3/FA/VIT C/BIOTIN 1 TAB TABLET GT SCH (08:57)
[2016-07-12] MEDS: PANTOPRAZOLE 40 MG/PACK PACK GT SCH ×2 (08:57→21:15)
[2016-07-12] MEDS: ASCORBIC ACID 500 MG TABLET GT SCH (08:58)
[2016-07-12] MEDS: prednisoLONE ACETATE 1% SUSP 5 ML BOTTLE LEFTEYE SCH (08:58)
[2016-07-12] MEDS: HEPARIN SODIUM, PORCINE 5000 UNITS/1 ML VIAL SQ SCH ×2 (09:00→21:16)
[2016-07-12] MEDS: INSULIN DETEMIR 100 UNIT/ML CARTRIDGE SQ SCH (09:00)
[2016-07-12] MEDS: DAKINS QUARTER STRENGTH (0.125%) 480 ML BOTTLE TOP SCH ×3 (09:00→17:35)
[2016-07-12] MEDS: Z GUARD REMEDY 2 OZ OINT TP SCH (09:01)
[2016-07-12] MEDS ORDERED: POTASSIUM PHOSPHATE MM 15 MMOL in IV D5W 250 ML IV SCH (10:30)
[2016-07-12] MEDS ORDERED: SECONDARY IV SET 1 EA INFUS.SET MC ONE (11:12)
[2016-07-12 12:00] VITALS: BP 124/54
[2016-07-12] MEDS: POTASSIUM PHOSPHATE MM 7.5 MMOL in IV D5W 100 ML IV SCH ×2 (12:37→17:29)
--- NOTE | 2016-07-12 15:00 | NUR ---
TELE1/DIE CAST DIE MAKER DEBRIDEMENT SACRAL WOUND DEBRIDEMENT PERFORMED BY DR. HARVEY'S PA AT BEDSIDE. PT TOLERATED PROCEDURE. ON GOING MONITORING.
[2016-07-12 16:00] VITALS: BP 104/42
--- NOTE | 2016-07-12 17:30 | NUR ---
OPEN HEARTH FURNACE LABORER CLOSING NOTES PATIENT TOLERATED GTUBE FEEDING SINCE NOON . NO RESPIRATORY DISTRESS NOTED. ON TPIECE FIO2 35%. SKIN WARM AND DRY TO TOUCH. IV ACCES PATENT, INTACT, IN PLACE. 1 BM SOFT. KEPT CLEAN AND DRY. SACRAL WOUND DEBRIDED. TURNED AND REPOSITIONED Q2 AND PRN. HOB KEPT ELEVATED. SIDE RAILS UP AND LOCKED. BED KEPT AT LOWEST POSITION. FAMILY VISITED TODAY AND IS CONCERN WITH BED AT NURSING FACILITY BEING GIVEN AWAY. CALL LIGHT KEPT WITHIN EASY REACH. REPORT GIVEN TO PM SHIFT.
--- NOTE | 2016-07-12 19:35 | NUR ---
RN OPENING NOTES: RECEIVED PT ON BED OBTUNDED, WITH SPON EYE OPENING. WITH TRACH TO MECH VENT ON TPIECE COOL AEROSOL AT 35% FIO2. NOT IN APPARENT DISTRESS. PT IS SR AT 85 ON MONITOR. IV ACCESS REMAINED INTACT ON LEFT WRIST G18 PATENT AND INTACT, KPHOS ONGOING.ALSO WITH R SUBCLAVIAN HD CATH INTACT. GT INTACT, FEEDING ONGOING, NOTED WITH 20CC RESIDUALS. ON CONTACT ISO PRECAUTION. INCONTINENT ON DIAPER MONITORED FOR DIARRHEA. HOB ELEVATED. SAFETY MEASURES ENSURED. CONTINUOUSLY MONITORED PT.
[2016-07-12 20:00] VITALS: BP 116/67
[2016-07-12] MEDS: RENAL NOVASOURCE 1,000 ML BOTTLE GT PRN (21:17)
[2016-07-13] VITALS: BP 121/99
[2016-07-13] MEDS: IPRATROPIUM NEB FS 0.5 MG/2.5 ML AMPUL.NEB NEB SCH ×4 (01:00→20:13)
[2016-07-13] MEDS: ALBUTEROL FS 2.5 MG/3 ML VIAL.NEB NEB SCH ×4 (01:00→20:13)
[2016-07-13 04:00] VITALS: BP 120/72
[2016-07-13] MEDS: hydrALAZINE HCL 25 MG TABLET GT SCH ×3 (05:02→17:19)
[2016-07-13] MEDS: BLOOD SUGAR DIAGNOSTIC 1 EACH STRIP IN SCH ×3 (05:33→17:15)
[2016-07-13] MEDS: PIPERACILLIN /TAZOBACTAM 2.25 G in IV D5W 50 ML IV SCH ×3 (05:33→21:23)
[2016-07-13] MEDS: INSULIN REGULAR, HUMAN 100 UNIT/ML 3 ML VIAL SQ PRN ×3 (05:36→17:18)
[2016-07-13] MEDS ORDERED: IV NS 0.9% 250 ML IV ONE (05:48)
--- NOTE | 2016-07-13 07:03 | NUR ---
RN CLOSING NOTES: PT REMAINED IN BED; NO ACUTE CHANGES WITHIN SHIFT. SR ON TELE. TRACH TO COOL AEROSOL, TOLERATED WELL. TRACH CARE RNEDERED; IV INTACT. IV ATB GIVEN. GT INTACT. WITH MINIMAL GT FEED RESIDUALS. SKIN CARE RENDERED. SAFETY MEASURES ENSURED. CONTINUOUSLY MONITORED. TO ENDORSE TO AM SHIFT RN
[2016-07-13] MEDS: ACETYLCYSTEINE 10% SOLN 400 MG/4 ML VIAL NEB SCH ×2 (07:22→14:31)
--- NOTE | 2016-07-13 07:30 | NUR ---
RN INITIAL NOTES RECEIVED PT. OBTUNDED EYES OPEN, RECIEVING DIALYSIS, TRACH C/DI SATING WELL, NO S/S OF RESP. DISTRESS OR SOB NOTED AT THIS TIME. NO S/S OF PAIN OR DISCOMFORT, TOLERATING GT FEEDING WELL, IV SITE C/D/I, ALL SAFETY MEASURES IN PLACE, CALL LIGHT WITHIN EASY REACH. WILL MONITOR PT CLOSELY
[2016-07-13 08:00] VITALS: BP 126/72
[2016-07-13 08:43] LABS: CALCIUM, SERUM 8.2 mg/dL (8.5-10.1); CREATININE 4.6 mg/dL (0.6-1.3); POTASSIUM 3.7 mmol/L (3.5-5.1)
--- NOTE | 2016-07-13 09:25 | NUR ---
RN NOTES HD DONE, PER [facility] HD NURSE REPORT, 1 LOUT.
[2016-07-13] MEDS: VIT B CMPLX 3/FA/VIT C/BIOTIN 1 TAB TABLET GT SCH (09:58)
[2016-07-13] MEDS: PROSOURCE / PROSTAT (PYXIS) 30 ML UDC GT SCH (09:58)
[2016-07-13] MEDS: LEVETIRACETAM SOL (5 ML) 100 MG/ML UDC GT SCH ×2 (09:58→21:25)
[2016-07-13] MEDS: FLUCONAZOLE (100 MG) 100 MG TABLET GT SCH (09:58)
[2016-07-13] MEDS: ZINC SULFATE 220 MG CAPSULE GT SCH (09:58)
[2016-07-13] MEDS: FERROUS SULFATE UDC 300 MG/5 ML UDC GT SCH (09:58)
[2016-07-13] MEDS: AMLODIPINE BESYLATE 5 MG TABLET GT SCH ×2 (09:59→21:26)
[2016-07-13] MEDS: PANTOPRAZOLE 40 MG/PACK PACK GT SCH ×2 (09:59→21:24)
[2016-07-13] MEDS: FAMOTIDINE (20 MG) 20 MG TABLET GT SCH (09:59)
[2016-07-13] MEDS: ASCORBIC ACID 500 MG TABLET GT SCH (09:59)
[2016-07-13] MEDS: LOSARTAN POTASSIUM 50 MG TABLET GT SCH ×2 (09:59→21:25)
[2016-07-13] MEDS: DAKINS QUARTER STRENGTH (0.125%) 480 ML BOTTLE TOP SCH ×2 (10:00→17:16)
[2016-07-13] MEDS: Z GUARD REMEDY 2 OZ OINT TP SCH (10:01)
[2016-07-13] MEDS: prednisoLONE ACETATE 1% SUSP 5 ML BOTTLE LEFTEYE SCH (10:01)
[2016-07-13] MEDS: VANCOMYCIN HCL 125 MG/2.5 ML ORAL.SUSP PO SCH ×4 (10:13→21:24)
[2016-07-13] MEDS: INSULIN DETEMIR 100 UNIT/ML CARTRIDGE SQ SCH (10:18)
[2016-07-13 12:00] VITALS: BP 112/55
[2016-07-13 16:00] VITALS: BP 125/69
[2016-07-13 20:00] VITALS: BP 136/70
[2016-07-13] MEDS: RENAL NOVASOURCE 1,000 ML BOTTLE GT PRN (21:23)
[2016-07-14] VITALS (7 sets, daily range): BP systolic 115–136; BP diastolic 56–78
[2016-07-14] MEDS: ACETYLCYSTEINE 10% SOLN 400 MG/4 ML VIAL NEB SCH ×3 (00:32→15:30)
[2016-07-14] MEDS: IPRATROPIUM NEB FS 0.5 MG/2.5 ML AMPUL.NEB NEB SCH ×4 (00:33→19:43)
[2016-07-14] MEDS: ALBUTEROL FS 2.5 MG/3 ML VIAL.NEB NEB SCH ×4 (00:33→19:43)
[2016-07-14] MEDS: hydrALAZINE HCL 25 MG TABLET GT SCH ×4 (01:03→18:08)
[2016-07-14] MEDS: INSULIN REGULAR, HUMAN 100 UNIT/ML 3 ML VIAL SQ PRN ×4 (01:13→18:20)
[2016-07-14] MEDS: BLOOD SUGAR DIAGNOSTIC 1 EACH STRIP IN SCH ×4 (05:30→18:19)
[2016-07-14] MEDS: PIPERACILLIN /TAZOBACTAM 2.25 G in IV D5W 50 ML IV SCH ×3 (05:32→21:39)
[2016-07-14 07:22] LABS: BASOPHILS % (AUTO) 0.3 % (0.0-2.0); EOSINOPHILS # (AUTO) 0.3 /CMM (0.0-0.7); EOSINOPHILS % (AUTO) 2.8 % (0.0-6.0); HEMATOCRIT 24 % (33-45); LYMPHOCYTES # (AUTO) 1.3 /CMM (0.8-4.8); MEAN CORPUSCULAR HEMOGLOBIN 32 PG (26.0-33.0); MEAN CORPUSCULAR HGB CONC 34 g/dl (31.0-36.0); MEAN CORPUSCULAR VOLUME 94 fL (82-100); MONOCYTES # (AUTO) 0.7 /CMM (0.1-1.30); MONOCYTES % (AUTO) 7.6 % (2.0-12.0); NEUTROPHILS # (AUTO) 7.1 /CMM (1.8-8.9); NEUTROPHILS % (AUTO) 75.3 % (43.0-81.0); PLATELET COUNT (AUTO) 243 /CMM (150-450); RDW COEFFICIENT OF VARIATION 13.7 (11.5-15.0); RED BLOOD CELL COUNT(AUTO) 2.55 MIL/uL (4.0-5.2); WHITE BLOOD COUNT (AUTO) 9.5 K/uL (4.3-11.0)
[2016-07-14 07:55] LABS: CALCIUM, SERUM 8.9 mg/dL (8.5-10.1); CREATININE 4.1 mg/dL (0.6-1.3); MAGNESIUM 1.8 mg/dL (1.8-2.4); PHOSPHORUS 2.7 mg/dL (2.5-4.9); POTASSIUM 3.6 mmol/L (3.5-5.1)
[2016-07-14] MEDS: VANCOMYCIN HCL 125 MG/2.5 ML ORAL.SUSP PO SCH ×4 (09:00→21:40)
[2016-07-14] MEDS: LOSARTAN POTASSIUM 50 MG TABLET GT SCH ×2 (09:00→21:40)
[2016-07-14] MEDS: AMLODIPINE BESYLATE 5 MG TABLET GT SCH ×2 (09:00→21:39)
--- NOTE | 2016-07-14 10:41 | NUR ---
RN NOTES RECEIVED REPORT FROM STELLA FOR SHERRY, WILL CLOSELY MONITOR PT FOR CHANGES
[2016-07-14] MEDS: FERROUS SULFATE UDC 300 MG/5 ML UDC GT SCH (10:53)
[2016-07-14] MEDS: PANTOPRAZOLE 40 MG/PACK PACK GT SCH ×2 (10:54→21:40)
[2016-07-14] MEDS: PROSOURCE / PROSTAT (PYXIS) 30 ML UDC GT SCH (10:54)
[2016-07-14] MEDS: VIT B CMPLX 3/FA/VIT C/BIOTIN 1 TAB TABLET GT SCH (10:54)
[2016-07-14] MEDS: ASCORBIC ACID 500 MG TABLET GT SCH (10:54)
[2016-07-14] MEDS: ZINC SULFATE 220 MG CAPSULE GT SCH (10:54)
[2016-07-14] MEDS: LEVETIRACETAM SOL (5 ML) 100 MG/ML UDC GT SCH ×2 (10:54→21:40)
[2016-07-14] MEDS: prednisoLONE ACETATE 1% SUSP 5 ML BOTTLE LEFTEYE SCH (10:56)
[2016-07-14] MEDS: Z GUARD REMEDY 2 OZ OINT TP SCH (10:57)
[2016-07-14] MEDS: DAKINS QUARTER STRENGTH (0.125%) 480 ML BOTTLE TOP SCH ×2 (10:57→17:00)
[2016-07-14] MEDS: INSULIN DETEMIR 100 UNIT/ML CARTRIDGE SQ SCH (11:05)
[2016-07-14] MEDS: RENAL NOVASOURCE 1,000 ML BOTTLE GT PRN (13:13)
[2016-07-14] MEDS ORDERED: IV SET PRIMARY PUMP SET 1 EA INFUS.SET MC ONE (13:17)
[2016-07-14] MEDS ORDERED: IV NS 0.9% 250 ML IV ONE (13:17)
[2016-07-14] MEDS ORDERED: Z GUARD REMEDY 4 OZ OINT TP SCH (18:30)
--- NOTE | 2016-07-14 18:40 | NUR ---
RN CLOSING NOTES PT REMAINED STABLE DURING SHIFT, ALL MEDICATIONS GIVEN, ALL MD ORDERS CARRIED OUT, PT KEPT CLEAN AND DRY, IV C/D/I/PATENT, ALL TREATMENTS CARRIED OUT, REPORT TO PM RN FOR SHERRY
[2016-07-14] MEDS: SCOPOLAMINE HBR 1 EA PATCH.TD72 TD SCH (21:41)
[2016-07-15] VITALS: BP_SYST 130; BP_SYST 133; BP_DIAS 74; BP_DIAS 78
[2016-07-15] MEDS: ACETYLCYSTEINE 10% SOLN 400 MG/4 ML VIAL NEB SCH ×3 (00:25→15:41)
[2016-07-15] MEDS: ALBUTEROL FS 2.5 MG/3 ML VIAL.NEB NEB SCH ×4 (00:30→19:34)
[2016-07-15] MEDS: IPRATROPIUM NEB FS 0.5 MG/2.5 ML AMPUL.NEB NEB SCH ×4 (00:30→19:34)
[2016-07-15] MEDS: BLOOD SUGAR DIAGNOSTIC 1 EACH STRIP IN SCH ×4 (00:42→17:13)
[2016-07-15] MEDS: INSULIN REGULAR, HUMAN 100 UNIT/ML 3 ML VIAL SQ PRN ×3 (00:44→12:11)
[2016-07-15] MEDS: hydrALAZINE HCL 25 MG TABLET GT SCH ×5 (00:45→17:01)
[2016-07-15 04:00] VITALS: BP_SYST 136; BP_SYST 145; BP_DIAS 68
[2016-07-15] MEDS: PIPERACILLIN /TAZOBACTAM 2.25 G in IV D5W 50 ML IV SCH ×3 (05:27→20:30)
[2016-07-15 08:00] VITALS: BP 142/71
--- NOTE | 2016-07-15 08:00 | NUR ---
telecommunications sales representative note benito in bed , all needs attended with trach to cooler aerosol, at 8l 35procent, on tele monitor sr , with g tube feeding as ordered, no residual noted , keep hob elevated at all time , rt hand hl intact , bed in lowest and locked position , call light within reach both legs with dvt pumps , will cont to monitor closely
--- NOTE | 2016-07-15 08:51 | NUR ---
tele note on hd at this time
[2016-07-15 09:04] LABS: BASOPHILS % (AUTO) 0.1 % (0.0-2.0); EOSINOPHILS # (AUTO) 0.2 /CMM (0.0-0.7); EOSINOPHILS % (AUTO) 2.5 % (0.0-6.0); HEMATOCRIT 22 % (33-45); HEMOGLOBIN 7.1 g/dL (11.5-14.8); LYMPHOCYTES # (AUTO) 1.1 /CMM (0.8-4.8); LYMPHOCYTES % (AUTO) 12.3 % (20.0-44.0); MEAN CORPUSCULAR HEMOGLOBIN 30 PG (26.0-33.0); MEAN CORPUSCULAR HGB CONC 33 g/dl (31.0-36.0); MEAN CORPUSCULAR VOLUME 93 fL (82-100); MONOCYTES # (AUTO) 0.5 /CMM (0.1-1.30); MONOCYTES % (AUTO) 5.3 % (2.0-12.0); NEUTROPHILS # (AUTO) 7.1 /CMM (1.8-8.9); NEUTROPHILS % (AUTO) 79.8 % (43.0-81.0); PLATELET COUNT (AUTO) 215 /CMM (150-450); RDW COEFFICIENT OF VARIATION 13.5 (11.5-15.0); RED BLOOD CELL COUNT(AUTO) 2.35 MIL/uL (4.0-5.2); WHITE BLOOD COUNT (AUTO) 8.9 K/uL (4.3-11.0)
[2016-07-15 09:11] LABS: CALCIUM, SERUM 8.6 mg/dL (8.5-10.1); POTASSIUM 3.8 mmol/L (3.5-5.1)
[2016-07-15] MEDS: PROSOURCE / PROSTAT (PYXIS) 30 ML UDC GT SCH (09:36)
[2016-07-15] MEDS: FAMOTIDINE (20 MG) 20 MG TABLET GT SCH (09:36)
[2016-07-15] MEDS: VIT B CMPLX 3/FA/VIT C/BIOTIN 1 TAB TABLET GT SCH (09:36)
[2016-07-15] MEDS: ASCORBIC ACID 500 MG TABLET GT SCH (09:36)
[2016-07-15] MEDS: PANTOPRAZOLE 40 MG/PACK PACK GT SCH ×2 (09:36→20:31)
[2016-07-15] MEDS: FERROUS SULFATE UDC 300 MG/5 ML UDC GT SCH (09:36)
[2016-07-15] MEDS: ZINC SULFATE 220 MG CAPSULE GT SCH (09:36)
--- NOTE | 2016-07-15 09:38 | NUR ---
supervisor telephone answering service note spoke with dr cameron notifyed that hg 8.3 ok to give Epogen with hd , order carried out
--- NOTE | 2016-07-15 09:56 | NUR ---
SPOKE WITH DR SANTIAGO REPORTED H/H 7.. GIVING EPOGEN 10,000. STATED OK.
[2016-07-15] MEDS ORDERED: EPOETIN ALFA (10,000 UNIT) 10,000 UNIT/ML VIAL IV ONE (10:00)
[2016-07-15] MEDS: DAKINS QUARTER STRENGTH (0.125%) 480 ML BOTTLE TOP SCH ×2 (10:16→17:02)
[2016-07-15] MEDS: VANCOMYCIN HCL 125 MG/2.5 ML ORAL.SUSP PO SCH ×4 (10:16→20:31)
[2016-07-15] MEDS: Z GUARD REMEDY 2 OZ OINT TP SCH (10:17)
[2016-07-15] MEDS: LEVETIRACETAM SOL (5 ML) 100 MG/ML UDC GT SCH ×2 (10:19→20:30)
[2016-07-15] MEDS: AMLODIPINE BESYLATE 5 MG TABLET GT SCH ×2 (10:20→20:31)
[2016-07-15] MEDS: LOSARTAN POTASSIUM 50 MG TABLET GT SCH ×2 (10:20→20:31)
[2016-07-15] MEDS: prednisoLONE ACETATE 1% SUSP 5 ML BOTTLE LEFTEYE SCH (10:24)
[2016-07-15] MEDS: INSULIN DETEMIR 100 UNIT/ML CARTRIDGE SQ SCH (10:27)
[2016-07-15 12:00] VITALS: BP 130/57
--- NOTE | 2016-07-15 12:00 | NUR ---
NOCTURNIST NOTE HD COMPLETED ,REMOVED 1L BP 136/64 HR 91 NOT IN ACUTE DISTRES
--- NOTE | 2016-07-15 13:40 | NUR ---
TELE RNNOTE ALL NEEDS ATTENDED CONT ON VENT SETTING ORDERED
[2016-07-15 16:00] VITALS: BP_SYST 136; BP_DIAS 68; BP_DIAS 92
[2016-07-15] MEDS: RENAL NOVASOURCE 1,000 ML BOTTLE GT PRN (17:59)
--- NOTE | 2016-07-15 18:05 | NUR ---
FOREST TECHNOLOGY PROFESSOR NOTE STILL HAS LOOSE STOOL, KEEP CLEAN DRY ,WILL CONT ON ISOLATION
--- NOTE | 2016-07-15 19:30 | NUR ---
RN INITIAL NOTES RECEIVED PATIENT ON BED, OBTUNDED AT BASELINE, EYES OPEN. TRACH MIDLINE AND INTACT, DRESSING CLEAN AND DRY, CONTINUES ON COOL AEROSOL, FIO2 @ 35%. NO S/S OF RESPIRATORY DISTRESS OR SOB NOTED AT THIS TIME. NO S/S OF PAIN OR DISCOMFORT, TOLERATING GT FEEDING WELL, IV SITE C/D/I, ALL SAFETY MEASURES IN PLACE, CALL LIGHT WITHIN EASY REACH. WILL MONITOR PATIENT CLOSELY
[2016-07-15 20:00] VITALS: BP 136/64
[2016-07-16] VITALS (7 sets, daily range): BP systolic 113–140; BP diastolic 45–72
[2016-07-16] MEDS: BLOOD SUGAR DIAGNOSTIC 1 EACH STRIP IN SCH ×4 (00:28→17:41)
[2016-07-16] MEDS: INSULIN REGULAR, HUMAN 100 UNIT/ML 3 ML VIAL SQ PRN ×4 (00:33→17:43)
[2016-07-16] MEDS: hydrALAZINE HCL 25 MG TABLET GT SCH ×4 (00:34→17:38)
[2016-07-16] MEDS: ALBUTEROL FS 2.5 MG/3 ML VIAL.NEB NEB SCH ×5 (00:47→19:46)
[2016-07-16] MEDS: ACETYLCYSTEINE 10% SOLN 400 MG/4 ML VIAL NEB SCH ×3 (00:47→14:57)
[2016-07-16] MEDS: IPRATROPIUM NEB FS 0.5 MG/2.5 ML AMPUL.NEB NEB SCH ×6 (00:48→19:46)
[2016-07-16] MEDS: PIPERACILLIN /TAZOBACTAM 2.25 G in IV D5W 50 ML IV SCH ×3 (05:08→21:27)
--- NOTE | 2016-07-16 06:32 | NUR ---
RN CLOSING NOTES PATIENT SLEEPING IN BED, APPEARS COMFORTABLE. ALL DUE MEDS ADMINISTERED PRESCRIBED. IV SITE REMAINS PATENT AND INTACT. WILL ENDORSE THE PATIENT TO THE AM SHIFT NURSE FOR SHERRY.
--- NOTE | 2016-07-16 07:30 | NUR ---
RN NOTES RECEIVED PATIENT OBTUNDED, ON COOL AEROSOL WITH FIO2 @35% WITH BREATHING NORMAL, EVEN AND UNLABORED. NO SOB NOTED. NO ACUTE DISTRESS NOTED. TELE MONITOR REVEALS SR, HR=88. IV R HAND IS PATENT AND INTACT..ON GT FEED NOVASOURCE AT 50CC/HR. TOLERATED WELL. ASPIRATION PRECAUTION TAKEN. HOB ELEVATED. KEPT CLEAN, DRY AND COMFORTABLE. ALL NEEDS ATTENDED. SAFETY MEASURE OBSERVED. ALL NEEDS ATTENDED. CALL LIGHT WITH IN REACH. WILL CONT TO MONITOR.
[2016-07-16 07:39] LABS: BASOPHILS % (AUTO) 0.1 % (0.0-2.0); EOSINOPHILS # (AUTO) 0.2 /CMM (0.0-0.7); HEMATOCRIT 28 % (33-45); HEMOGLOBIN 9.2 g/dL (11.5-14.8); LYMPHOCYTES # (AUTO) 1.2 /CMM (0.8-4.8); LYMPHOCYTES % (AUTO) 11.6 % (20.0-44.0); MEAN CORPUSCULAR HEMOGLOBIN 31 PG (26.0-33.0); MEAN CORPUSCULAR HGB CONC 33 g/dl (31.0-36.0); MEAN CORPUSCULAR VOLUME 93 fL (82-100); MONOCYTES # (AUTO) 0.7 /CMM (0.1-1.30); MONOCYTES % (AUTO) 6.9 % (2.0-12.0); NEUTROPHILS # (AUTO) 8.5 /CMM (1.8-8.9); NEUTROPHILS % (AUTO) 79.4 % (43.0-81.0); PLATELET COUNT (AUTO) 244 /CMM (150-450); RDW COEFFICIENT OF VARIATION 13.7 (11.5-15.0); RED BLOOD CELL COUNT(AUTO) 2.95 MIL/uL (4.0-5.2); WHITE BLOOD COUNT (AUTO) 10.8 K/uL (4.3-11.0)
[2016-07-16 07:46] LABS: CALCIUM, SERUM 9.2 mg/dL (8.5-10.1); CREATININE 4.5 mg/dL (0.6-1.3); POTASSIUM 3.6 mmol/L (3.5-5.1)
[2016-07-16] MEDS: LEVETIRACETAM SOL (5 ML) 100 MG/ML UDC GT SCH ×2 (08:42→21:27)
[2016-07-16] MEDS: VIT B CMPLX 3/FA/VIT C/BIOTIN 1 TAB TABLET GT SCH (08:42)
[2016-07-16] MEDS: FERROUS SULFATE UDC 300 MG/5 ML UDC GT SCH (08:42)
[2016-07-16] MEDS: ASCORBIC ACID 500 MG TABLET GT SCH (08:42)
[2016-07-16] MEDS: ZINC SULFATE 220 MG CAPSULE GT SCH (08:43)
[2016-07-16] MEDS: PANTOPRAZOLE 40 MG/PACK PACK GT SCH ×2 (08:43→21:27)
[2016-07-16] MEDS: AMLODIPINE BESYLATE 5 MG TABLET GT SCH ×2 (08:43→20:12)
[2016-07-16] MEDS: PROSOURCE / PROSTAT (PYXIS) 30 ML UDC GT SCH (08:43)
[2016-07-16] MEDS: LOSARTAN POTASSIUM 50 MG TABLET GT SCH ×2 (08:43→20:11)
[2016-07-16] MEDS: Z GUARD REMEDY 2 OZ OINT TP SCH (08:45)
[2016-07-16] MEDS: DAKINS QUARTER STRENGTH (0.125%) 480 ML BOTTLE TOP SCH ×2 (08:45→17:44)
[2016-07-16] MEDS: prednisoLONE ACETATE 1% SUSP 5 ML BOTTLE LEFTEYE SCH (08:45)
[2016-07-16] MEDS: VANCOMYCIN HCL 125 MG/2.5 ML ORAL.SUSP PO SCH ×4 (08:47→21:27)
[2016-07-16] MEDS: INSULIN DETEMIR 100 UNIT/ML CARTRIDGE SQ SCH (08:54)
--- NOTE | 2016-07-16 16:00 | NUR ---
RN NOTES RELAYED ALBUMIN RESULTS TO DR MIRANDA WITH ORDER OF LASIX 20MG ONCE AND ALBUMIN 25% ONCE. ORDER NOTED AND CARRIED OUT. MOTHER TEAGAN MADE AWARE. WILL CONT TO MONITOR.
[2016-07-16] MEDS: RENAL NOVASOURCE 1,000 ML BOTTLE GT PRN (17:45)
--- NOTE | 2016-07-16 19:30 | NUR ---
RN NOTES PATIENT ENDORSED TO NEXT SHIFT IN STABLE CONDITION FOR CONTINUITY OF CARE. NO SIGNIFICANT CHANGES NOTED. KEPT CLEAN, DRY AND COMFORTABLE. ALL NEEDS ATTENDED. SAFETY MEASURE OBSERVED. CALL LIGHT WITH IN REACH. WILL CONT TO MONITOR.
[2016-07-17] VITALS: BP 125/59
[2016-07-17] MEDS: BLOOD SUGAR DIAGNOSTIC 1 EACH STRIP IN SCH ×4 (00:54→17:34)
[2016-07-17] MEDS: INSULIN REGULAR, HUMAN 100 UNIT/ML 3 ML VIAL SQ PRN ×4 (00:54→17:36)
[2016-07-17] MEDS: IPRATROPIUM NEB FS 0.5 MG/2.5 ML AMPUL.NEB NEB SCH ×4 (02:06→19:39)
[2016-07-17] MEDS: ALBUTEROL FS 2.5 MG/3 ML VIAL.NEB NEB SCH ×4 (02:06→19:39)
[2016-07-17] MEDS: ACETYLCYSTEINE 10% SOLN 400 MG/4 ML VIAL NEB SCH ×3 (02:07→13:33)
[2016-07-17 04:00] VITALS: BP 141/72
[2016-07-17] MEDS: hydrALAZINE HCL 25 MG TABLET GT SCH ×4 (05:32→18:00)
[2016-07-17] MEDS: PIPERACILLIN /TAZOBACTAM 2.25 G in IV D5W 50 ML IV SCH ×3 (05:32→21:05)
--- NOTE | 2016-07-17 07:48 | NUR ---
INITIAL PANTRY GOODS WORKER NOTE RCVD PT NON-VERBAL WITH EYES CLOSED SHOWING NO S/O DISTRESS OR PAIN. PT OPENS EYES TO PAINFUL STIMULI. TOLERATING ORDERED VENT SETTINGS AND TUBE FEEDING RATE. NO RESIDUAL OBSERVED. SR ON TELE HR 93. RIGHT HAND #22 C/D/I/PATENT. NO S/O INFILTRATION OR PHLEBITIS OBSERVED UPON FLUSHING. BED IN LOW AND LOCKED POSITION. CALL LIGHT WITHIN REACH. WILL CONTINUE TO MONITOR PT FOR SAFETY AND COMFORT.
[2016-07-17 08:00] VITALS: BP 116/55
[2016-07-17] MEDS: AMLODIPINE BESYLATE 5 MG TABLET GT SCH ×2 (09:00→21:09)
[2016-07-17] MEDS: LOSARTAN POTASSIUM 50 MG TABLET GT SCH ×2 (09:00→21:06)
[2016-07-17] MEDS: LEVETIRACETAM SOL (5 ML) 100 MG/ML UDC GT SCH ×2 (09:06→21:05)
[2016-07-17] MEDS: VIT B CMPLX 3/FA/VIT C/BIOTIN 1 TAB TABLET GT SCH (09:06)
[2016-07-17] MEDS: PANTOPRAZOLE 40 MG/PACK PACK GT SCH ×2 (09:06→21:05)
[2016-07-17] MEDS: PROSOURCE / PROSTAT (PYXIS) 30 ML UDC GT SCH (09:06)
[2016-07-17] MEDS: FERROUS SULFATE UDC 300 MG/5 ML UDC GT SCH (09:06)
[2016-07-17] MEDS: FAMOTIDINE (20 MG) 20 MG TABLET GT SCH (09:06)
[2016-07-17] MEDS: ZINC SULFATE 220 MG CAPSULE GT SCH (09:06)
[2016-07-17] MEDS: ASCORBIC ACID 500 MG TABLET GT SCH (09:06)
[2016-07-17] MEDS: INSULIN DETEMIR 100 UNIT/ML CARTRIDGE SQ SCH (09:14)
[2016-07-17] MEDS: Z GUARD REMEDY 2 OZ OINT TP SCH (09:16)
[2016-07-17] MEDS: DAKINS QUARTER STRENGTH (0.125%) 480 ML BOTTLE TOP SCH ×2 (09:16→17:33)
[2016-07-17] MEDS: prednisoLONE ACETATE 1% SUSP 5 ML BOTTLE LEFTEYE SCH (09:17)
[2016-07-17] MEDS: VANCOMYCIN HCL 125 MG/2.5 ML ORAL.SUSP PO SCH ×4 (09:29→21:05)
--- NOTE | 2016-07-17 11:17 | NUR ---
BEAN ROASTER NOTE SPOKE WITH LAWRENCE GAY FOR ID INFORMED HER THAT PT'S TONGUE APPEARS TO BE COATED WITH A WHITE SUBSTANCE. SHE'LL REVIEW PT'S RECORDS AND RECOMMEND NYSTATIN INDICATED.
[2016-07-17 12:00] VITALS: BP 102/57
[2016-07-17] MEDS ORDERED: IV SET PRIMARY PUMP SET 1 EA INFUS.SET MC ONE (12:45)
[2016-07-17] MEDS ORDERED: SECONDARY IV SET 1 EA INFUS.SET MC ONE (12:45)
[2016-07-17] MEDS ORDERED: IV NS 0.9% 250 ML IV ONE (12:45)
[2016-07-17 16:00] VITALS: BP 116/49
[2016-07-17] MEDS: NYSTATIN (PYXIS) 500,000 UNIT/5 ML ORAL.SUSP PO SCH (17:33)
[2016-07-17] MEDS: RENAL NOVASOURCE 1,000 ML BOTTLE GT PRN (18:04)
--- NOTE | 2016-07-17 18:55 | NUR ---
ENDING DIRECTOR PATIENT FINANCIAL SERVICES NOTE PT NON-VERBAL, OPENS EYES TO PAIN STIMULI. TOLERATING ORDERED VENT SETTINGS AND G-TUBE FEEDING RATE. SR ON TELE HR 95. RIGHT HAND #22 C/D/I/PATENT. NO S/O INFILTRATION OR PHLEBITIS OBSERVED UPON FLUSHING. BED IN LOW AND LOCKED POSITION. CALL LIGHT WITHIN REACH. WILL CONTINUE TO MONITOR PT FOR SAFETY AND COMFORT.
--- NOTE | 2016-07-17 19:30 | NUR ---
PACKAGE REINSPECTOR INITIAL NOTES PT RECEIVED ON BEDREST. NONVERBAL OPENS EYES TO PAIN. FAMILY AT BEDSIDE. T-PIECE PORTEX #7 FIO2 35% SATING WELL. TELE- SINUS RHYTHM 95. GTUBE FLUSHING WELL, PATENT, NO RESIDUAL AND TOLERATING FEEDING WELL. IV R HAND #22, PATENT, CLEAN DRY AND INTACT, FLUSHING WELL. C HD CATHETER CLEAN AND INTACT. BED LOCKED IN LOW POSITION.CALL LIGHT WITHIN REACH AT ALL TIMES. WILL CONTINUE TO MONITOR.
[2016-07-17 20:00] VITALS: BP 140/70
[2016-07-17] MEDS: SCOPOLAMINE HBR 1 EA PATCH.TD72 TD SCH (21:05)
[2016-07-18] VITALS: BP 128/52
[2016-07-18] MEDS: BLOOD SUGAR DIAGNOSTIC 1 EACH STRIP IN SCH ×5 (00:39→23:52)
[2016-07-18] MEDS: INSULIN REGULAR, HUMAN 100 UNIT/ML 3 ML VIAL SQ PRN ×4 (00:43→17:32)
[2016-07-18] MEDS: IPRATROPIUM NEB FS 0.5 MG/2.5 ML AMPUL.NEB NEB SCH ×4 (01:06→19:52)
[2016-07-18] MEDS: ACETYLCYSTEINE 10% SOLN 400 MG/4 ML VIAL NEB SCH ×4 (01:06→23:11)
[2016-07-18] MEDS: ALBUTEROL FS 2.5 MG/3 ML VIAL.NEB NEB SCH ×4 (01:07→19:52)
[2016-07-18 04:00] VITALS: BP 119/73
[2016-07-18] MEDS: hydrALAZINE HCL 25 MG TABLET GT SCH ×5 (05:22→23:52)
[2016-07-18] MEDS: PIPERACILLIN /TAZOBACTAM 2.25 G in IV D5W 50 ML IV SCH ×3 (05:34→21:08)
--- NOTE | 2016-07-18 06:30 | NUR ---
ELECTRIC FRYING PAN REPAIRER CLOSING NOTE PT REMAINED IN STABLE CONDITION. ON TELE- SR 90'S. ON T-PIECE SATING WELL. IV INTACT AND FLUSHING WELL.GTUBE FEEDING WELL TOLERATED AND NO RESIDUAL NOTED. ALL SAFETY MEASURES IN PLACE. CALL LIGHT WITHIN EASY REACH AT ALL TIMES. WILL ENDORSE TO NEXT SHIFT FOR SHERRY.
--- NOTE | 2016-07-18 07:48 | NUR ---
INITIAL DRIER TAKE OFF TENDER NOTE RCVD PT NON-VERBAL WITH EYES CLOSED SHOWING NO S/O DISTRESS OR PAIN. TOLERATING T-PIECE SETTINGS AND TUBE FEEDING RATE. NO RESIDUAL OBSERVED UPON CHECKING PLACEMENT. SR ON TLE HR 97. RIGHT HAND #22 C/D/I/PATENT. NO S/O INFILTRATION OR PHLEBITIS OBSERVED UPON FLUSHING. WILL CONTINUE TO MONITOR PT FOR SAFETY AND COMFORT. CALL LIGHT WITHIN REACH. BED IN LOW AND LOCKED POSITION.
[2016-07-18 08:00] VITALS: BP 143/75
[2016-07-18] MEDS: ZINC SULFATE 220 MG CAPSULE GT SCH (08:03)
[2016-07-18] MEDS: LEVETIRACETAM SOL (5 ML) 100 MG/ML UDC GT SCH ×2 (08:03→21:10)
[2016-07-18] MEDS: ASCORBIC ACID 500 MG TABLET GT SCH (08:03)
[2016-07-18] MEDS: VIT B CMPLX 3/FA/VIT C/BIOTIN 1 TAB TABLET GT SCH (08:03)
[2016-07-18] MEDS: PROSOURCE / PROSTAT (PYXIS) 30 ML UDC GT SCH (08:03)
[2016-07-18] MEDS: FERROUS SULFATE UDC 300 MG/5 ML UDC GT SCH (08:03)
[2016-07-18] MEDS: NYSTATIN (PYXIS) 500,000 UNIT/5 ML ORAL.SUSP PO SCH ×3 (08:03→17:30)
[2016-07-18] MEDS: PANTOPRAZOLE 40 MG/PACK PACK GT SCH ×2 (08:04→21:09)
[2016-07-18] MEDS: LOSARTAN POTASSIUM 50 MG TABLET GT SCH ×2 (08:04→21:08)
[2016-07-18] MEDS: AMLODIPINE BESYLATE 5 MG TABLET GT SCH ×2 (08:04→21:09)
[2016-07-18] MEDS: VANCOMYCIN HCL 125 MG/2.5 ML ORAL.SUSP PO SCH ×4 (08:05→21:10)
[2016-07-18] MEDS: INSULIN DETEMIR 100 UNIT/ML CARTRIDGE SQ SCH (08:07)
[2016-07-18] MEDS: DAKINS QUARTER STRENGTH (0.125%) 480 ML BOTTLE TOP SCH ×2 (08:09→17:40)
[2016-07-18] MEDS: prednisoLONE ACETATE 1% SUSP 5 ML BOTTLE LEFTEYE SCH (08:09)
[2016-07-18] MEDS: Z GUARD REMEDY 2 OZ OINT TP SCH (08:09)
[2016-07-18 12:00] VITALS: BP 121/56
[2016-07-18 16:00] VITALS: BP 144/59
[2016-07-18] MEDS: RENAL NOVASOURCE 1,000 ML BOTTLE GT PRN (17:39)
--- NOTE | 2016-07-18 19:15 | NUR ---
ENDING DATA DELIVERABLES MANAGER NOTE PT NON-VERBAL, OPENS EYES SHOWING NO S/O DISTRESS TOLERATING T-PIECE SETTINGS AND GTUBE FEEDING RATE. SR ON TELE. RIGHT HAND #22 C/D/I/PATENT. NO S/O INFILTRATION OR PHLEBITIS OBSERVED UPON FLUSHING. CALL LIGHT WITHIN REACH. BED IN LOW AND LOCKED POSITION. PT'S CARE WILL BE ENDORSED TO SUPERVISOR SHED WORKERS RN FOR CONTINUITY OF CARE.
--- NOTE | 2016-07-18 19:30 | NUR ---
SENIOR MEDIA DIRECTOR INITIAL NOTES PT RECEIVED SLEEPING IN BED. NON VERBAL OPEN EYES.T-PIECE 10L PORTEX #7 FIO2 35% AND SATING WELL. TELE- SINUS RHYTHM 90'S. GTUBE FEEDING WELL TOLERATED,NO RESIDUAL, PATENT, FLUSHING WELL, CLEAN AND DRY. IV RIGHT HAND #22 FLUSHING WELL, CLEAN DRY AND INTACT. NO S/S OF INFECTION NOTED. RUC HD CATH CLEAN AND INTACT. ALL SAFETY MEASURES IN PLACE. CALL LIGHT WITHIN REACH. WILL CONTINUE TO MONITOR.
[2016-07-18 20:00] VITALS: BP 136/69
[2016-07-19] VITALS: BP 134/69
[2016-07-19] MEDS: INSULIN REGULAR, HUMAN 100 UNIT/ML 3 ML VIAL SQ PRN ×3 (00:01→13:08)
[2016-07-19] MEDS: ALBUTEROL FS 2.5 MG/3 ML VIAL.NEB NEB SCH ×5 (02:01→19:29)
[2016-07-19] MEDS: IPRATROPIUM NEB FS 0.5 MG/2.5 ML AMPUL.NEB NEB SCH ×5 (02:01→19:29)
[2016-07-19] MEDS ORDERED: IV NS 0.9% 250 ML IV ONE (03:03)
[2016-07-19 04:00] VITALS: BP 144/63
[2016-07-19] MEDS: PIPERACILLIN /TAZOBACTAM 2.25 G in IV D5W 50 ML IV SCH ×2 (06:02→15:49)
[2016-07-19] MEDS: BLOOD SUGAR DIAGNOSTIC 1 EACH STRIP IN SCH ×3 (06:28→18:09)
[2016-07-19] MEDS: hydrALAZINE HCL 25 MG TABLET GT SCH ×3 (06:28→18:08)
--- NOTE | 2016-07-19 06:30 | NUR ---
CLOTH MEASURER CLOSING NOTE PT REMAINED IN STABLE CONDITION DURING SHIFT. T-PIECE ON 10L WELL TOLERATED AND SATING WELL. GTUBE FEEDING WELL TOLERATED AND NO RESIDUAL. IV INTACT, NO S/S OF INFECTION NOTED. ALL SAFETY MEASURES IN PLACE. ALL ISOLATION PRECAUTIONS IN PLACE. WILL ENDORSE TO NEXT SHIFT FOR SHERRY.
[2016-07-19] MEDS: ACETYLCYSTEINE 10% SOLN 400 MG/4 ML VIAL NEB SCH ×4 (07:35→23:06)
[2016-07-19 08:00] VITALS: BP 114/57
[2016-07-19] MEDS: AMLODIPINE BESYLATE 5 MG TABLET GT SCH ×2 (09:00→21:00)
[2016-07-19] MEDS: LOSARTAN POTASSIUM 50 MG TABLET GT SCH ×2 (09:00→21:00)
[2016-07-19] MEDS: LEVETIRACETAM SOL (5 ML) 100 MG/ML UDC GT SCH ×2 (09:22→22:23)
[2016-07-19] MEDS: FERROUS SULFATE UDC 300 MG/5 ML UDC GT SCH (09:22)
[2016-07-19] MEDS: PROSOURCE / PROSTAT (PYXIS) 30 ML UDC GT SCH (09:22)
[2016-07-19] MEDS: PANTOPRAZOLE 40 MG/PACK PACK GT SCH ×2 (09:22→22:22)
[2016-07-19] MEDS: ACETAMINOPHEN 650 MG/20.3 ML UDC GT PRN (09:22)
[2016-07-19] MEDS: NYSTATIN (PYXIS) 500,000 UNIT/5 ML ORAL.SUSP PO SCH ×3 (09:22→18:07)
[2016-07-19] MEDS: ZINC SULFATE 220 MG CAPSULE GT SCH (09:22)
[2016-07-19] MEDS: FAMOTIDINE (20 MG) 20 MG TABLET GT SCH (09:23)
[2016-07-19] MEDS: VIT B CMPLX 3/FA/VIT C/BIOTIN 1 TAB TABLET GT SCH (09:23)
[2016-07-19] MEDS: ASCORBIC ACID 500 MG TABLET GT SCH (09:23)
[2016-07-19] MEDS: VANCOMYCIN HCL 125 MG/2.5 ML ORAL.SUSP PO SCH ×4 (09:29→22:23)
[2016-07-19] MEDS: prednisoLONE ACETATE 1% SUSP 5 ML BOTTLE LEFTEYE SCH (09:30)
[2016-07-19] MEDS: INSULIN DETEMIR 100 UNIT/ML CARTRIDGE SQ SCH (09:36)
[2016-07-19] MEDS: DAKINS QUARTER STRENGTH (0.125%) 480 ML BOTTLE TOP SCH ×2 (09:48→16:36)
[2016-07-19] MEDS: Z GUARD REMEDY 2 OZ OINT TP SCH (09:49)
[2016-07-19 12:00] VITALS: BP 144/82
[2016-07-19] MEDS: ONDANSETRON HCL/PF 4 MG/2 ML VIAL IV PRN (12:44)
--- NOTE | 2016-07-19 14:30 | NUR ---
RN NOTES PT HAD HD TOLERATED WELL, BP MAINTAINED, POST HD BP 128/62. PT VOMITED ONCE PRIOR TO HD, ZOFRAN GIVEN AFTERWARDS, BP MEDS HELD TODAY DUE TO LOW BP IN MORNING.
[2016-07-19] MEDS: RENAL NOVASOURCE 1,000 ML BOTTLE GT PRN (15:57)
[2016-07-19 16:00] VITALS: BP 140/69
[2016-07-19 20:00] VITALS: BP 126/58
[2016-07-20] VITALS (10 sets, daily range): BP systolic 122–140; BP diastolic 46–77
[2016-07-20] MEDS: BLOOD SUGAR DIAGNOSTIC 1 EACH STRIP IN SCH ×5 (00:09→23:39)
[2016-07-20] MEDS: INSULIN REGULAR, HUMAN 100 UNIT/ML 3 ML VIAL SQ PRN ×5 (00:44→23:40)
[2016-07-20] MEDS: ALBUTEROL FS 2.5 MG/3 ML VIAL.NEB NEB SCH ×4 (01:16→20:04)
[2016-07-20] MEDS: IPRATROPIUM NEB FS 0.5 MG/2.5 ML AMPUL.NEB NEB SCH ×4 (01:16→20:04)
--- NOTE | 2016-07-20 05:20 | NUR ---
SENIOR CORPORATE ACCOUNTANT: NO SHERRY DURING THE SHIFT. REMAINED OBTUNDED. ON T-PIECE AT 10L 02 WT NO ACUTE DISTRESS. NO EVIDENCE OF DISCOMFORT. SR ON TELE MONITOR. HELP BP MEDS ACCORDING TO PARAMETERS. AFEBRILE. GTF RESIDUAL LESS THAN 100C. HAD X1 MODERTE AMT. OF FOUL ODOR YELLOW BROWN MUCOID TO LIQUID STOOLS. ISOLATION PRECAUTION NOTED AT ALL TIMES. GOOD SKIN CARE RENDERED. KEPT CLEAN AND DRY. ALL NEEDS MET.
[2016-07-20] MEDS: hydrALAZINE HCL 25 MG TABLET GT SCH ×5 (06:00→23:37)
[2016-07-20] MEDS: ACETYLCYSTEINE 10% SOLN 400 MG/4 ML VIAL NEB SCH ×3 (07:38→23:44)
[2016-07-20 07:59] LABS: BASOPHILS % (AUTO) 0.5 % (0.0-2.0); EOSINOPHILS # (AUTO) 0.3 /CMM (0.0-0.7); EOSINOPHILS % (AUTO) 4.2 % (0.0-6.0); HEMATOCRIT 21 % (33-45); LYMPHOCYTES # (AUTO) 1.1 /CMM (0.8-4.8); LYMPHOCYTES % (AUTO) 13.6 % (20.0-44.0); MEAN CORPUSCULAR HEMOGLOBIN 31 PG (26.0-33.0); MEAN CORPUSCULAR HGB CONC 33 g/dl (31.0-36.0); MEAN CORPUSCULAR VOLUME 94 fL (82-100); MONOCYTES # (AUTO) 0.4 /CMM (0.1-1.30); MONOCYTES % (AUTO) 4.9 % (2.0-12.0); NEUTROPHILS # (AUTO) 6.1 /CMM (1.8-8.9); NEUTROPHILS % (AUTO) 76.8 % (43.0-81.0); PLATELET COUNT (AUTO) 236 /CMM (150-450); RDW COEFFICIENT OF VARIATION 13.9 (11.5-15.0); RED BLOOD CELL COUNT(AUTO) 2.24 MIL/uL (4.0-5.2); WHITE BLOOD COUNT (AUTO) 7.9 K/uL (4.3-11.0)
[2016-07-20 08:19] LABS: CREATININE 4.7 mg/dL (0.6-1.3); PHOSPHORUS 2.9 mg/dL (2.5-4.9); POTASSIUM 3.4 mmol/L (3.5-5.1)
[2016-07-20] MEDS: LOSARTAN POTASSIUM 50 MG TABLET GT SCH ×2 (09:00→20:52)
[2016-07-20] MEDS: AMLODIPINE BESYLATE 5 MG TABLET GT SCH ×2 (09:00→20:52)
[2016-07-20] MEDS: ASCORBIC ACID 500 MG TABLET GT SCH (09:43)
[2016-07-20] MEDS: LEVETIRACETAM SOL (5 ML) 100 MG/ML UDC GT SCH ×2 (09:43→20:52)
[2016-07-20] MEDS: VANCOMYCIN HCL 125 MG/2.5 ML ORAL.SUSP PO SCH ×4 (09:43→20:52)
[2016-07-20] MEDS: PANTOPRAZOLE 40 MG/PACK PACK GT SCH ×2 (09:43→20:52)
[2016-07-20] MEDS: PROSOURCE / PROSTAT (PYXIS) 30 ML UDC GT SCH (09:43)
[2016-07-20] MEDS: VIT B CMPLX 3/FA/VIT C/BIOTIN 1 TAB TABLET GT SCH (09:43)
[2016-07-20] MEDS: NYSTATIN (PYXIS) 500,000 UNIT/5 ML ORAL.SUSP PO SCH ×3 (09:43→18:14)
[2016-07-20] MEDS: ZINC SULFATE 220 MG CAPSULE GT SCH (09:43)
[2016-07-20] MEDS: DAKINS QUARTER STRENGTH (0.125%) 480 ML BOTTLE TOP SCH ×2 (09:44→18:15)
[2016-07-20] MEDS: Z GUARD REMEDY 2 OZ OINT TP SCH (09:45)
[2016-07-20] MEDS: prednisoLONE ACETATE 1% SUSP 5 ML BOTTLE LEFTEYE SCH (09:46)
[2016-07-20] MEDS: FERROUS SULFATE UDC 300 MG/5 ML UDC GT SCH (09:46)
[2016-07-20] MEDS: INSULIN DETEMIR 100 UNIT/ML CARTRIDGE SQ SCH (09:50)
[2016-07-20] MEDS: RENAL NOVASOURCE 1,000 ML BOTTLE GT PRN (12:51)
[2016-07-20] MEDS ORDERED: IV NS 0.9% 250 ML IV ONE (19:29)
[2016-07-20] MEDS ORDERED: BLOOD IV SET 1 EA INFUS.SET MC ONE (19:29)
--- NOTE | 2016-07-20 20:45 | NUR ---
RN NOTES RECEIVED PT WITH TRACH AND C/A RESP IS LITTLE BIT FASTER THAN USUAL RESP 32. BREATHING TX. GIVEN BY RT AND PT STARTED TO CALM DOWN PT HAD A N ORDER OF I UNIT BLOOD TRANSFUSION DUE TO HGB- 7.0 VS CHECKED TEMP 99 PULSE 95 HR 25 AFTER BREATHING TX. TELE MONITOR REVEALS SR HR 86. BILATERAL LUNG SOUND WITH CRACKLES SOUND. GTF NOVASOURCE @ 50 CC/HR TOLERATED WELL WITHOUT N/V/D SHOWS. WITH RESIDUAL OF 20 CC. IV SITE ON RIGHT HAND G 22 INTACT AND PATENT. KEPT PT CLEAN AND COMFORTABLE IN BED. WILL CONTINUE TO MONITOR.
[2016-07-20] MEDS: ACETAMINOPHEN 650 MG/20.3 ML UDC GT PRN (20:52)
[2016-07-20] MEDS: SCOPOLAMINE HBR 1 EA PATCH.TD72 TD SCH (22:58)
--- NOTE | 2016-07-20 23:33 | NUR ---
RN NOTES BT FINISH AT THIS TIME TOLERATED WELL. AFEBRILE. VS CHECKED TEMP 98.3 RESP 26 PULSE 90 BP 123
--- NOTE | 2016-07-20 23:34 | NUR ---
CONTINUATION/CORRECTION VS CHECKED TEMP 98.3 RESP 26 PULSE 90 BP 132/72 SATING 96% IN C/A. BT TOLERATED WELL. WILL CONTINUE TO MONITOR.
[2016-07-21] VITALS: BP_SYST 132; BP_SYST 99; BP_DIAS 35; BP_DIAS 72
[2016-07-21] MEDS: ALBUTEROL FS 2.5 MG/3 ML VIAL.NEB NEB SCH ×4 (02:25→19:50)
[2016-07-21] MEDS: IPRATROPIUM NEB FS 0.5 MG/2.5 ML AMPUL.NEB NEB SCH ×4 (02:25→19:50)
[2016-07-21 04:00] VITALS: BP 136/71
[2016-07-21] MEDS: BLOOD SUGAR DIAGNOSTIC 1 EACH STRIP IN SCH ×3 (05:12→17:25)
[2016-07-21] MEDS: hydrALAZINE HCL 25 MG TABLET GT SCH ×3 (05:13→17:20)
[2016-07-21] MEDS: INSULIN REGULAR, HUMAN 100 UNIT/ML 3 ML VIAL SQ PRN ×2 (05:15→12:34)
--- NOTE | 2016-07-21 06:22 | NUR ---
RN NOTES PT IN STABLE CONDITION THROUGHOUT THE SHIFT TOLERATED TRACH AND C/A ORDERED. INTERVENTION COOL MEASURES FOR TMAX OF 99.3 EFFECTIVE LAST TEMP CHECKED WAS 98.1. BLOOD TRANSFUSION TOLERATED WIHTOUT ASE SHOWS. NO HYPO OR HYPERGLYCEMIA NOTED. SLIDING SCALE EFFECTIVE. DRESSING CHANGE AND PHOTO TAKEN TODAY. KEPT PT CLEAN ND COMFORTABLE IN BED. WILL ENDORSED CONTINUITY OF CARE TO AM NURSE.
[2016-07-21] MEDS: ACETYLCYSTEINE 10% SOLN 400 MG/4 ML VIAL NEB SCH ×3 (07:43→23:08)
[2016-07-21 08:00] VITALS: BP 145/74
--- NOTE | 2016-07-21 08:00 | NUR ---
RN INTIAL NOTE RECEIVED PT OBTUNDED, NON-VERBAL,OPENS EYES, , G-TUBE PATENT, INTACT AND IN PLACE.PT TOLERATING GTF. RIGHT HAND HEPLOCK, FLUSHED. IV SITE C/D/I. NO S/S OF RESPIRATORY DISTRESS OR SOB, NO S/S OF PAIN AT THIS TIME. SAFETY MEASURES IMPLEMENTED. CALL LIGHT WITHIN EASY REACH
[2016-07-21 08:04] LABS: BASOPHILS % (AUTO) 0.2 % (0.0-2.0); EOSINOPHILS # (AUTO) 0.3 /CMM (0.0-0.7); EOSINOPHILS % (AUTO) 3.8 % (0.0-6.0); HEMATOCRIT 28 % (33-45); HEMOGLOBIN 9.4 g/dL (11.5-14.8); LYMPHOCYTES # (AUTO) 1.4 /CMM (0.8-4.8); LYMPHOCYTES % (AUTO) 15.9 % (20.0-44.0); MEAN CORPUSCULAR HEMOGLOBIN 31 PG (26.0-33.0); MEAN CORPUSCULAR HGB CONC 33 g/dl (31.0-36.0); MEAN CORPUSCULAR VOLUME 91 fL (82-100); MONOCYTES # (AUTO) 0.6 /CMM (0.1-1.30); MONOCYTES % (AUTO) 6.8 % (2.0-12.0); NEUTROPHILS # (AUTO) 6.3 /CMM (1.8-8.9); NEUTROPHILS % (AUTO) 73.3 % (43.0-81.0); PLATELET COUNT (AUTO) 227 /CMM (150-450); RDW COEFFICIENT OF VARIATION 16.1 (11.5-15.0); RED BLOOD CELL COUNT(AUTO) 3.08 MIL/uL (4.0-5.2); WHITE BLOOD COUNT (AUTO) 8.6 K/uL (4.3-11.0)
[2016-07-21 08:23] LABS: CALCIUM, SERUM 9.1 mg/dL (8.5-10.1); CREATININE 5.9 mg/dL (0.6-1.3); MAGNESIUM 2.2 mg/dL (1.8-2.4); PHOSPHORUS 3.3 mg/dL (2.5-4.9); POTASSIUM 3.4 mmol/L (3.5-5.1)
[2016-07-21] MEDS: PROSOURCE / PROSTAT (PYXIS) 30 ML UDC GT SCH (09:52)
[2016-07-21] MEDS: FAMOTIDINE (20 MG) 20 MG TABLET GT SCH (09:52)
[2016-07-21] MEDS: FERROUS SULFATE UDC 300 MG/5 ML UDC GT SCH (09:52)
[2016-07-21] MEDS: prednisoLONE ACETATE 1% SUSP 5 ML BOTTLE LEFTEYE SCH (09:52)
[2016-07-21] MEDS: NYSTATIN (PYXIS) 500,000 UNIT/5 ML ORAL.SUSP PO SCH ×3 (09:52→17:20)
[2016-07-21] MEDS: ASCORBIC ACID 500 MG TABLET GT SCH (09:52)
[2016-07-21] MEDS: PANTOPRAZOLE 40 MG/PACK PACK GT SCH ×2 (09:53→20:44)
[2016-07-21] MEDS: INSULIN DETEMIR 100 UNIT/ML CARTRIDGE SQ SCH (09:55)
[2016-07-21] MEDS: ZINC SULFATE 220 MG CAPSULE GT SCH (09:56)
[2016-07-21] MEDS: LOSARTAN POTASSIUM 50 MG TABLET GT SCH ×2 (09:56→20:44)
[2016-07-21] MEDS: VIT B CMPLX 3/FA/VIT C/BIOTIN 1 TAB TABLET GT SCH (09:56)
[2016-07-21] MEDS: AMLODIPINE BESYLATE 5 MG TABLET GT SCH ×2 (09:57→20:44)
[2016-07-21] MEDS: Z GUARD REMEDY 2 OZ OINT TP SCH (09:59)
[2016-07-21 10:11] LABS: INR 0.98 (0.87-1.13); PROTHROMBIN TIME 10.6 SECS (9.5-12.7)
[2016-07-21] MEDS: VANCOMYCIN HCL 125 MG/2.5 ML ORAL.SUSP PO SCH ×4 (10:11→20:43)
[2016-07-21] MEDS: LEVETIRACETAM SOL (5 ML) 100 MG/ML UDC GT SCH ×2 (10:11→20:43)
--- NOTE | 2016-07-21 10:17 | NUR ---
WEBSPHERE PORTAL ARCHITECT NOTE PT'S SATURATION DECREASED TO MID 80s MURAD, RT CALLED TO BEDSIDE. RT TITRATED O2 UP CURRENTLY AT 12L FIO2 AT 60% PT'S SATURATION INCREASED TO HIGH 90s. WILL CONTINUE TO MONITOR PT.
[2016-07-21] MEDS: DAKINS QUARTER STRENGTH (0.125%) 480 ML BOTTLE TOP SCH ×2 (10:23→17:22)
[2016-07-21 12:00] VITALS: BP 126/75
[2016-07-21] MEDS ORDERED: EPOETIN ALFA (10,000 UNIT) 10,000 UNIT/ML VIAL SQ ONE (12:30)
--- NOTE | 2016-07-21 13:15 | NUR ---
POLICE AIDE NOTE PT CONTINUES TO HAVE DIARRHEA.
[2016-07-21 16:00] VITALS: BP 136/63
[2016-07-21] MEDS: RENAL NOVASOURCE 1,000 ML BOTTLE GT PRN (17:21)
[2016-07-21] MEDS: DEXTROSE 50%-WATER 50 ML DISP.SYRIN IV PRN (17:25)
--- NOTE | 2016-07-21 19:02 | NUR ---
RN CLOSING NOTE PT RESTING IN BED COMFORTABLY, ALL MD ORDERS CARRIED OUT, PT KEPT CLEAN AND DRY, IV C/D/I. ALL SAFETY MEASURES IN PLACE AT ALL TIMES. REPORT WILL BE GIVEN TO PM SHIFT OF SHERRY
--- NOTE | 2016-07-21 19:15 | NUR ---
RN INITIAL NOTES RECEIVED PATIENT IN BED, OBTUNDED, OPENS EYES WITH NO EYE TRACKING APPRECIATED. PATIENT WITH NO DISTRESS NOTED. SR AT 82. ON TPIECE VIA TRACH MIDLINE, C/D/I, AIRWAY SUCTIONED NEEDED, MINIMAL PINK TINGED SECRETION SUCTIONED. PATIENT SUCTIONED ORALLY WITH GOOD HELP. PATIENT ON 10LPM WITH FIO2 OF 60%, SATURATION KEPT >92%. WITH GTF, INFUSING WELL, PATIENT NOTED WITH GASTRIC RESIDUAL OF 90CC AT THIS TIME. WILL MONITOR CLOSELY, FEEDING HELD FOR NOW. R CHEST WALL HD CATH WITH DRESSING INTACT, NO DRAINAGE NOTED. R HAND G22, FLUSHED AND PATENT, NO SIGNS OF INFILTRATION NOTED. PATIENT'S NEEDS ANTICIPATED AND MET. SAFETY AND COMFORT ENSURED. BED IN LOW AND LOCKED POSITION. CALL LIGHT IN REACH. WILL CONTINUE TO MONITOR. CONTACT ISOLATION FOR CDIFF, STRICTLY OBSERVED.
[2016-07-21 20:00] VITALS: BP 147/75
--- NOTE | 2016-07-21 20:00 | NUR ---
RN NOTES PATIENT'S FEEDING RESUMED. NO GASTRIC RESIDUAL NOTED. HOB ELEVATED. AIRWAY KEPT PATENT, AIRWAY SUCTIONED NEEDED.
[2016-07-22] VITALS: BP 141/77
--- NOTE | 2016-07-22 00:30 | NUR ---
RN NOTES PATIENT NOTED WITH X1 EPISODE OF VOMITUS, MINIMAL AMOUNT OF GT FEEDING. PATIENT'S GASTRIC RESIDUAL MONITORED AND NOTED TO BE 60CC. HOB ELEVATED. FEEDING HELD. WILL ADMINISTER ZOFRAN AND REGLAN PRN. WILL MONITOR.
[2016-07-22] MEDS: BLOOD SUGAR DIAGNOSTIC 1 EACH STRIP IN SCH ×4 (01:11→17:40)
[2016-07-22] MEDS: METOCLOPRAMIDE HCL 10 MG/10 ML UDC GT PRN (01:13)
[2016-07-22] MEDS: hydrALAZINE HCL 25 MG TABLET GT SCH ×4 (01:13→18:00)
[2016-07-22] MEDS: ONDANSETRON HCL/PF 4 MG/2 ML VIAL IV PRN (01:14)
[2016-07-22] MEDS: IPRATROPIUM NEB FS 0.5 MG/2.5 ML AMPUL.NEB NEB SCH ×4 (01:25→19:31)
[2016-07-22] MEDS: ALBUTEROL FS 2.5 MG/3 ML VIAL.NEB NEB SCH ×4 (01:25→19:31)
--- NOTE | 2016-07-22 01:30 | NUR ---
RN NOTES PATIENT WITH NO GASTRIC RESIDUAL NOTED. RESUMED GTF ORDERED. HOB ELEVATED. SAFETY AND COMFORT ENSURED.
[2016-07-22 04:00] VITALS: BP 131/72
[2016-07-22] MEDS: INSULIN REGULAR, HUMAN 100 UNIT/ML 3 ML VIAL SQ PRN (05:44)
--- NOTE | 2016-07-22 06:42 | NUR ---
RN CLOSING NOTES PATIENT'S SAFETY AND COMFORT ENSURED. PATIENT STILL WITH DIARRHEA, LIQUID STOOL, BROWNISH-YELLOW IN COLOR, X3 EPISODES. GTF INFUSING WELL, TOTAL OF 150CC GASTRIC RESIDUAL FOR THE NIGHT, WITH 90CC AT 2000 AND 60 AT 0000. PATIENT KEPT CLEAN AND DRY. WOUND TREATMENT RENDERED ORDERED, NO ADVERSE SKIN CHANGES NOTED. ALL DUE MEDS GIVEN ORDERED. AM LABS DRAWN. NEEDS ANTICIPATED AND MET. CALL LIGHT IN REACH. WILL ENDORSE ACCORDINGLY FOR CONTINUITY OF CARE.
[2016-07-22 07:36] LABS: BASOPHILS % (AUTO) 0.1 % (0.0-2.0); EOSINOPHILS # (AUTO) 0.2 /CMM (0.0-0.7); EOSINOPHILS % (AUTO) 2.6 % (0.0-6.0); HEMATOCRIT 29 % (33-45); HEMOGLOBIN 9.8 g/dL (11.5-14.8); LYMPHOCYTES # (AUTO) 1.4 /CMM (0.8-4.8); LYMPHOCYTES % (AUTO) 15.3 % (20.0-44.0); MEAN CORPUSCULAR HEMOGLOBIN 31 PG (26.0-33.0); MEAN CORPUSCULAR HGB CONC 34 g/dl (31.0-36.0); MEAN CORPUSCULAR VOLUME 91 fL (82-100); MONOCYTES # (AUTO) 0.6 /CMM (0.1-1.30); MONOCYTES % (AUTO) 6.3 % (2.0-12.0); NEUTROPHILS # (AUTO) 6.9 /CMM (1.8-8.9); NEUTROPHILS % (AUTO) 75.7 % (43.0-81.0); PLATELET COUNT (AUTO) 225 /CMM (150-450); RDW COEFFICIENT OF VARIATION 15.8 (11.5-15.0); RED BLOOD CELL COUNT(AUTO) 3.21 MIL/uL (4.0-5.2); WHITE BLOOD COUNT (AUTO) 9.1 K/uL (4.3-11.0)
[2016-07-22] MEDS: ACETYLCYSTEINE 10% SOLN 400 MG/4 ML VIAL NEB SCH ×2 (07:43→15:29)
[2016-07-22 07:44] LABS: ALBUMIN 2.7 g/dL (3.4-5.0); BILIRUBIN,TOTAL 0.5 mg/dL (0.2-1.0); CALCIUM, SERUM 9.3 mg/dL (8.5-10.1); CREATININE 4.6 mg/dL (0.6-1.3); MAGNESIUM 2.2 mg/dL (1.8-2.4); POTASSIUM 3.8 mmol/L (3.5-5.1); TOTAL PROTEIN, SERUM 7.9 g/dL (6.4-8.2)
[2016-07-22 08:00] VITALS: BP 144/87
--- NOTE | 2016-07-22 08:00 | NUR ---
RN INITIAL NOTE RECEIVED PT IN BED. PT ON TRACH, RESPIRATIONS ARE SHALLOW AND LABORED. OXYGEN SATURATION IMPROVED AFTER SUCTIONING. TRACH MIDLINE AND INTACT. NO S/S OF PAIN OR DISCOMFORT.TOLERATING G-TUBE FEEDING. IV SITE C/D/I. FLUSHED AND PATENT. SAFETY MEASURES IMPLEMENTED, CALL LIGHT WITHIN EASY REACH. DIALYSIS SCHEDULED FOR TODAY. WILL MONITOR PT CLOSELY
[2016-07-22] MEDS ORDERED: ALBUT2 NEB (08:16)
[2016-07-22] MEDS ORDERED: Nystatin PO (08:16)
[2016-07-22] MEDS ORDERED: VANC125C11 PO (08:16)
--- NOTE | 2016-07-22 08:54 | NUR ---
HAIRMASTERS MANAGER NOTE DR. SANTIAGO IN UNIT INFORMED HIM THAT PT WAS DESATING YESTERDAY AND EARLIER THIS AM TO THE MID 80S O2 DELIVERY WAS INCREASED CONTINUES TO BE ON T-PIECE. HE INSTRUCTED TO HOLD D/C UNTIL PT IS SEEN BY DR. TEJADA AND WILL ORDER HD FOR TODAY.
[2016-07-22] MEDS: PANTOPRAZOLE 40 MG/PACK PACK GT SCH ×2 (08:58→22:04)
[2016-07-22] MEDS: LEVETIRACETAM SOL (5 ML) 100 MG/ML UDC GT SCH ×2 (08:58→22:04)
[2016-07-22] MEDS: VANCOMYCIN HCL 125 MG/2.5 ML ORAL.SUSP PO SCH ×4 (08:58→22:04)
[2016-07-22] MEDS: PROSOURCE / PROSTAT (PYXIS) 30 ML UDC GT SCH (08:58)
[2016-07-22] MEDS: NYSTATIN (PYXIS) 500,000 UNIT/5 ML ORAL.SUSP PO SCH ×3 (08:58→17:41)
[2016-07-22] MEDS: prednisoLONE ACETATE 1% SUSP 5 ML BOTTLE LEFTEYE SCH (08:59)
[2016-07-22] MEDS: INSULIN DETEMIR 100 UNIT/ML CARTRIDGE SQ SCH (08:59)
[2016-07-22] MEDS: LOSARTAN POTASSIUM 50 MG TABLET GT SCH ×2 (09:00→21:00)
[2016-07-22] MEDS: AMLODIPINE BESYLATE 5 MG TABLET GT SCH ×2 (09:00→21:00)
[2016-07-22] MEDS: VIT B CMPLX 3/FA/VIT C/BIOTIN 1 TAB TABLET GT SCH (09:00)
[2016-07-22] MEDS: ASCORBIC ACID 500 MG TABLET GT SCH (09:00)
[2016-07-22] MEDS: ZINC SULFATE 220 MG CAPSULE GT SCH (09:00)
[2016-07-22] MEDS: FERROUS SULFATE UDC 300 MG/5 ML UDC GT SCH (09:01)
[2016-07-22] MEDS: DAKINS QUARTER STRENGTH (0.125%) 480 ML BOTTLE TOP SCH ×2 (09:02→17:41)
[2016-07-22] MEDS: Z GUARD REMEDY 2 OZ OINT TP SCH (09:02)
--- NOTE | 2016-07-22 09:18 | NUR ---
UX CONSULTANT NOTE DR. TEJADA IN UNIT INFORMED HIM OF PT'S EPISODE OF DESATURATION ON T-PIECE. HE RECOMMENDED ABG TO BE DONE. ORDER ENTERED AND RT CALLED.
[2016-07-22 09:42] LABS: ABG BASE EXCESS 3.7 mmol/L; ABG OXYGEN SATURATION 88.4 % (92.0-98.5); ABG PCO2 32.8 mmHg (35.0-45.0); ABG PH 7.524 (7.350-7.450); ABG PO2 51.8 mmHg (75.0-100.0); ABG TOTAL HEMOGLOBIN 9.2 G/dL (12.0-16.0); AaDO2 339.9 mmHg; COHb 1.2 % (0.5-1.5); MetHb 1.1 % (0.0-1.5); O2Hb 86.4 % (94.0-97.0); SITE, ABG Right Radial; VENT MODE, BG COOL AEROSOL
--- NOTE | 2016-07-22 11:52 | NUR ---
Pt placed on [facility] vent per MD orders. Vent settings are AC 12 500 50% +5. Trach is secure. Mechanical vent is plugged into a red outlet. Alarms are set and audible. Ambu bag at head of bed. Addendum: 07/22/16 at 1155 by JORDEN BARTH RT Amended: Links added.
[2016-07-22 12:00] VITALS: BP 132/72
--- NOTE | 2016-07-22 12:00 | NUR ---
RN NOTE WITHHELD B/P MEDICATION WHILE PATIENT IS ON DIALYSIS
[2016-07-22] MEDS ORDERED: DEXTROSE 50%-WATER 50 ML DISP.SYRIN ONE (14:34)
[2016-07-22] MEDS: DEXTROSE 50%-WATER 50 ML DISP.SYRIN IV PRN (15:04)
[2016-07-22 16:00] VITALS: BP 104/43
--- NOTE | 2016-07-22 18:50 | NUR ---
RN CLOSING NOTE, PT RESTING IN BED COMFORTABLY, ALL MD ORDERS CARRIED OUT. PT KEPT CLEAN AND DRY. ALL SAFETY MEASURES IN PLACE AT ALL TIMES. WILL GIVE REPORT TO PM NURSE FOR SHERRY
--- NOTE | 2016-07-22 19:15 | NUR ---
RN INITIAL NOTES RECEIVED PATIENT IN BED, OBTUNDED, OPENS EYES. PLACED ON MECH VENT EARLIER IN THE DAY, PATIENT ON PORTEX 7 CUFFED, SETTINGS OF AC 12, TV500, FIO2 50%, PEEP 5. PATIENT WITH NO RESPIRATORY DISTRESS OBSERVED. PATIENT SATURATING AT 100%. SR AT 82. PATIENT;S AIRWAY SUCTIONED, MINIMAL AMOUNT OF YELLOW THICK SPUTUM SUCTIONED. WITH GTF, INFUSING WELL, NO GASTRIC RESIDUAL NOTED. R CHEST WALL HD CATH WITH DRESSING INTACT, NO DRAINAGE NOTED. L HAND G24, FLUSHED AND PATENT, NO SIGNS OF INFILTRATION NOTED. PATIENT'S NEEDS ANTICIPATED AND MET. SAFETY AND COMFORT ENSURED. BED IN LOW AND LOCKED POSITION. CALL LIGHT IN REACH. WILL CONTINUE TO MONITOR. CONTACT ISOLATION FOR CDIFF, STRICTLY OBSERVED.
--- NOTE | 2016-07-22 19:31 | NUR ---
PT RCVD ON MECH VENT WITH NOTED SETTINGS,VENT ALARM WORKING AND AUDIBLE. VENT PLUGGED INTO RED OUTLET. TRACH SECURED IN AND IN PROPER POSITION. CUFF CHECKED OTORHINOLARYNGOLOGIST. SXN MODERATE AMOUNT OF YELLOWISH WITH TINGED BLOOD THICK SECRETIONS. NO RESPIRATORY DISTRESS AT THIS TIME. WILL CONTINUE TO MONITOR.
[2016-07-22 20:00] VITALS: BP 134/66
[2016-07-23] VITALS: BP 139/60
[2016-07-23] MEDS: ACETYLCYSTEINE 10% SOLN 400 MG/4 ML VIAL NEB SCH ×4 (00:25→23:46)
[2016-07-23] MEDS: ALBUTEROL FS 2.5 MG/3 ML VIAL.NEB NEB SCH ×4 (00:32→19:30)
[2016-07-23] MEDS: IPRATROPIUM NEB FS 0.5 MG/2.5 ML AMPUL.NEB NEB SCH ×4 (00:32→19:30)
[2016-07-23] MEDS: RENAL NOVASOURCE 1,000 ML BOTTLE GT PRN (00:45)
[2016-07-23] MEDS: BLOOD SUGAR DIAGNOSTIC 1 EACH STRIP IN SCH ×4 (00:48→17:57)
[2016-07-23] MEDS: hydrALAZINE HCL 25 MG TABLET GT SCH ×4 (00:49→17:02)
[2016-07-23] MEDS: INSULIN REGULAR, HUMAN 100 UNIT/ML 3 ML VIAL SQ PRN ×4 (00:50→18:13)
[2016-07-23 04:00] VITALS: BP 140/56
--- NOTE | 2016-07-23 06:24 | NUR ---
RN CLOSING NOTES PATIENT WITH NO ACUTE DISTRESS OBSERVED OVERNIGHT. ABLE TO TOLERATE MECH VENT SETTINGS WELL, NO RESPIRATORY DISTRESS NOTED. AIRWAY SUCTIONED NEEDED, KEPT PATENT. TRACH CARE RENDERED. WOUND TREATMENT DONE ORDERED. PATIENT KEPT CLEAN AND DRY. STILL NOTED WITH DIARRHEA X1 DURING THE NIGHT. PATIENT TURNED AND REPOSITIONED. GT FEEDING TOLERATED WELL, MINIMAL GASTRIC RESIDUAL NOTED. ALL DUE MEDS GIVEN ORDERED. L HAND G24 INTACT AND PATENT. R FOOT G22, INTACT AND PATENT. NO SIGNS OF INFILTRATION. LABS DRAWN. PATIENT'S NEEDS ANTICIPATED AND MET. SAFETY AND COMFORT ENSURED. BED IN LOW AND LOCKED POSITION. WILL ENDORSE ACCORDINGLY FOR CONTINUITY OF CARE. Addendum: 07/23/16 at 0629 by BENJAMIN AKERS RN ON TELE, REMAINS SR AT 88.
--- NOTE | 2016-07-23 07:15 | NUR ---
RN INITIAL NOTES: REC'D PT IN BED, HOB ELEVATED, OBTUNDED, OPENS EYES. PT ON MECH VENT W/ FF SETTINGS: AC12, TV500, FIO2 50%, PEEP 5, SATURATING WELL. AIRWAY SUCTIONED NEEDED. ON TELEMONITOR SR AT 80'S, NOT IN ANY CARDIAC DISTRESS. HAS R CHEST WALL HD CATH, DRY & INTACT. PT HAS L HAND G24 & R FOOT G22, FLUSHED, PATENT & INTACT. ON CONTINUOUS GT FEEDING, NOVASOURCE AT 50 CC/HR, TOLERATING WELL, NO RESIDUAL NOTED. WILL TURN & REPOSITION, OFFLOAD HEELS PER PROTOCOL. PROVIDED COMFORT & SAFETY MEASURES. BED KEPT LOW & IN LOCKED POSITION. WILL CONTINUE TO MONITOR.
[2016-07-23 08:00] VITALS: BP 147/77
[2016-07-23] MEDS: LEVETIRACETAM SOL (5 ML) 100 MG/ML UDC GT SCH ×2 (09:30→21:32)
[2016-07-23] MEDS: FERROUS SULFATE UDC 300 MG/5 ML UDC GT SCH (09:30)
[2016-07-23] MEDS: LOSARTAN POTASSIUM 50 MG TABLET GT SCH ×2 (09:30→21:00)
[2016-07-23] MEDS: FAMOTIDINE (20 MG) 20 MG TABLET GT SCH (09:30)
[2016-07-23] MEDS: VIT B CMPLX 3/FA/VIT C/BIOTIN 1 TAB TABLET GT SCH (09:30)
[2016-07-23] MEDS: AMLODIPINE BESYLATE 5 MG TABLET GT SCH ×2 (09:30→21:00)
[2016-07-23] MEDS: PANTOPRAZOLE 40 MG/PACK PACK GT SCH ×2 (09:31→21:32)
[2016-07-23] MEDS: ASCORBIC ACID 500 MG TABLET GT SCH (09:31)
[2016-07-23] MEDS: ZINC SULFATE 220 MG CAPSULE GT SCH (09:31)
[2016-07-23] MEDS: VANCOMYCIN HCL 125 MG/2.5 ML ORAL.SUSP PO SCH ×4 (09:31→21:32)
[2016-07-23] MEDS: NYSTATIN (PYXIS) 500,000 UNIT/5 ML ORAL.SUSP PO SCH ×3 (09:31→17:58)
[2016-07-23] MEDS: PROSOURCE / PROSTAT (PYXIS) 30 ML UDC GT SCH (09:31)
[2016-07-23] MEDS: prednisoLONE ACETATE 1% SUSP 5 ML BOTTLE LEFTEYE SCH (09:32)
[2016-07-23] MEDS: INSULIN DETEMIR 100 UNIT/ML CARTRIDGE SQ SCH (09:32)
[2016-07-23] MEDS: DAKINS QUARTER STRENGTH (0.125%) 480 ML BOTTLE TOP SCH ×2 (09:33→17:58)
[2016-07-23] MEDS: Z GUARD REMEDY 2 OZ OINT TP SCH (09:33)
[2016-07-23] MEDS ORDERED: SECONDARY IV SET 1 EA INFUS.SET MC ONE (11:19)
[2016-07-23 12:00] VITALS: BP 110/53
[2016-07-23] MEDS: METRONIDAZOLE 500MG/ NS 100ML 500 MG in PREMIX 1 EA IV SCH ×2 (12:04→17:59)
[2016-07-23] MEDS ORDERED: IV NS 0.9% 250 ML IV ONE (12:23)
[2016-07-23] MEDS ORDERED: IV SET PRIMARY PUMP SET 1 EA INFUS.SET MC ONE (12:23)
--- NOTE | 2016-07-23 15:50 | NUR ---
FLOORHAND NOTES ON C DIFF ISOLATION, HAD WATERY STOOL TODAY 07-23-16. WILL NEED CLEARANCE BEFORE DISCHARGE.
[2016-07-23 16:00] VITALS: BP 129/63
--- NOTE | 2016-07-23 18:47 | NUR ---
RN CLOSING NOTES: PT REMAINED STABLE, OBTUNDED, NOT IN ANY DISTRESS. MV SETTINGS TOLERATED WELL, NO DESATURATION NOTED. SUCTIONED SECRETIONS NEEDED. ON TELEMONITOR, SR AT 80'S. HAS R CHEST WALL HD CATH, DRY & INTACT. PT HAS L THUMB & R FOOT IV LINE, PATENT, C/D/I, NO SIGNS OF INFECTION/ INFILTRATION. WOUND CARE DONE. TURNED & REPOSITIONED, OFFLOADING OF HEELS DONE. COMFORT & SAFETY MEASURES DONE. BED KEPT LOW & IN LOCKED POSITION. ENDORSED TO PM NURSE.
--- NOTE | 2016-07-23 19:30 | NUR ---
PLATE CONDITIONER INITIAL NOTES RECEIVED PATIENT OBTUNDED, NON-VERBAL, VENT DEPENDENT. NO S/S OF PAIN OR DISCOMFORT. RESPIRATIONS EVEN AND UNLABORED. WITH VENT SETTINGS AC 12, TV 500, FIO2 50%, PEEP 5. TRACH C/D/I. ON TELE MONITOR SINUS RHYTHM. ISOLATION PRECAUTIONS OBSERVED. PER REPORT PENDING D/C. SKIN WARM AND DRY TO TOUCH. NOTED WITH GENERALIZED EDEMA. TOLERATING GTF. GT PATENT, INTACT, IN PLACE. HOB KEPT ELEVATED. SIDE RAILS UP AND LOCKED. BED KEPT AT LOWEST POSITION. CALL LIGHT KEPT WITHIN EASY REACH. WILL CONTINUE TO MONITOR.
[2016-07-23 20:00] VITALS: BP 115/48
[2016-07-23] MEDS: SCOPOLAMINE HBR 1 EA PATCH.TD72 TD SCH (21:33)
[2016-07-24] VITALS: BP 127/63
[2016-07-24] MEDS: BLOOD SUGAR DIAGNOSTIC 1 EACH STRIP IN SCH ×4 (00:59→17:04)
[2016-07-24] MEDS: INSULIN REGULAR, HUMAN 100 UNIT/ML 3 ML VIAL SQ PRN ×3 (01:01→12:11)
[2016-07-24] MEDS: IPRATROPIUM NEB FS 0.5 MG/2.5 ML AMPUL.NEB NEB SCH ×4 (01:34→20:09)
[2016-07-24] MEDS: ALBUTEROL FS 2.5 MG/3 ML VIAL.NEB NEB SCH ×4 (01:34→20:09)
[2016-07-24] MEDS ORDERED: IV SET PRIMARY PUMP SET 1 EA INFUS.SET MC ONE (03:29)
[2016-07-24] MEDS ORDERED: IV NS 0.9% 250 ML IV ONE (03:29)
[2016-07-24] MEDS: METRONIDAZOLE 500MG/ NS 100ML 500 MG in PREMIX 1 EA IV SCH ×3 (03:33→18:02)
[2016-07-24 04:00] VITALS: BP 133/81
[2016-07-24] MEDS: hydrALAZINE HCL 25 MG TABLET GT SCH ×4 (06:16→17:03)
--- NOTE | 2016-07-24 06:42 | NUR ---
DIALYSIS NURSE AT BEDSIDE.
--- NOTE | 2016-07-24 06:49 | NUR ---
DRY DRUG WORKER CLOSING NOTES NO SIGNIFICANT CHANGES OVERNIGHT. NO RESPIRATORY DISTRESS. TOLERATED GTF. TOLERATED VENT SETTINGS. WOUND TREATMENT DONE ORDERED. TRACH CARE DONE. KEPT CLEAN AND DRY. TURNED AND REPOSITIONED Q2 AND PRN. HOB KEPT ELEVATED. ISOLATION PRECAUTIONS OBSERVED. SIDE RAILS UP AND LOCKED. BED KEPT AT LOWEST POSITION. CALL LIGHT KEPT WITHIN EASY REACH. WILL ENDORSE CONTINUITY OF CARE TO AM NURSE.
--- NOTE | 2016-07-24 07:25 | NUR ---
MASH PROCESSING OPERATOR INITIAL NOTES: REC'D PT IN BED W/ HOB ELEVATED, OBTUNDED, OPENS EYES. PT [facility] W/ FF SETTINGS: AC12, TV500, FIO2 50%, PEEP 5, SATURATING WELL. ON TELEMONITOR SR AT 90'S, NOT IN ANY CARDIAC DISTRESS. HAS R CHEST WALL HD CATH, DRY & INTACT, ONGOING HD PROCEDURE C/O HD NURSE. PT HAS R FOOT G22 IV LINE, FLUSHED, PATENT & INTACT. ON CONTINUOUS GT FEEDING, NOVASOURCE AT 50 CC/HR, TOLERATING WELL, NO RESIDUAL NOTED. WILL TURN & REPOSITION, OFFLOAD HEELS PER PROTOCOL. PROVIDED COMFORT & SAFETY MEASURES. BED KEPT LOW & IN LOCKED POSITION. WILL CONTINUE TO MONITOR.
[2016-07-24] MEDS: ACETYLCYSTEINE 10% SOLN 400 MG/4 ML VIAL NEB SCH ×3 (07:27→23:56)
--- NOTE | 2016-07-24 07:32 | NUR ---
Trach pt received on mechanical vent. Suctioned moderate amount of secretions. Pt trach is secure. Vent is plugged into a red outlet. Alarms are set and audible. Ambu bag a head of bed. Addendum: 07/24/16 at 0734 by JORDEN BARTH RT Amended: Links added.
[2016-07-24 08:00] VITALS: BP 136/67
[2016-07-24] MEDS: LOSARTAN POTASSIUM 50 MG TABLET GT SCH ×2 (09:18→21:00)
[2016-07-24] MEDS: LEVETIRACETAM SOL (5 ML) 100 MG/ML UDC GT SCH ×2 (09:19→21:00)
[2016-07-24] MEDS: FERROUS SULFATE UDC 300 MG/5 ML UDC GT SCH (09:19)
[2016-07-24] MEDS: VIT B CMPLX 3/FA/VIT C/BIOTIN 1 TAB TABLET GT SCH (09:19)
[2016-07-24] MEDS: NYSTATIN (PYXIS) 500,000 UNIT/5 ML ORAL.SUSP PO SCH ×3 (09:20→17:03)
[2016-07-24] MEDS: ASCORBIC ACID 500 MG TABLET GT SCH (09:20)
[2016-07-24] MEDS: ZINC SULFATE 220 MG CAPSULE GT SCH (09:20)
[2016-07-24] MEDS: PANTOPRAZOLE 40 MG/PACK PACK GT SCH ×2 (09:20→21:00)
[2016-07-24] MEDS: VANCOMYCIN HCL 125 MG/2.5 ML ORAL.SUSP PO SCH ×4 (09:20→21:00)
[2016-07-24] MEDS: AMLODIPINE BESYLATE 5 MG TABLET GT SCH ×2 (09:20→21:00)
[2016-07-24] MEDS: PROSOURCE / PROSTAT (PYXIS) 30 ML UDC GT SCH (09:20)
[2016-07-24] MEDS: INSULIN DETEMIR 100 UNIT/ML CARTRIDGE SQ SCH (09:22)
[2016-07-24] MEDS: DAKINS QUARTER STRENGTH (0.125%) 480 ML BOTTLE TOP SCH ×2 (09:24→17:02)
[2016-07-24] MEDS: Z GUARD REMEDY 2 OZ OINT TP SCH (09:24)
[2016-07-24] MEDS: prednisoLONE ACETATE 1% SUSP 5 ML BOTTLE LEFTEYE SCH (09:25)
--- NOTE | 2016-07-24 09:35 | NUR ---
RN NOTES: PT ENDORSED TO LAWRENCE KNOWLES FOR SHERRY.
--- NOTE | 2016-07-24 09:45 | NUR ---
RN NOTES PT RECEIVED ON BED, OBTUNDED, VENT DEPENDENT , TRACH CARE DONE , TOLERATING TF NOVASOURCE AT 50CC/HR VIA GT WELL, REPORTED 3 LOOSE STOOL LAST NIGHT , CABA NOTIFIED, SR UP x3. CALL LIGHT WITHIN EASY REACH , CONTINUE TO MONITOR PT CLOSELY AND NOTIFY MD FOR ANY SIGNIFICANT CHANGES.
--- NOTE | 2016-07-24 10:55 | NUR ---
RN NOTES PER REPORT PT HAS HAD 3 LOOSE STOOL YESTERDAY AND LAST NIGHT ,
[2016-07-24 12:00] VITALS: BP 139/65
[2016-07-24 16:00] VITALS: BP 117/51
[2016-07-24] MEDS: RENAL NOVASOURCE 1,000 ML BOTTLE GT PRN (17:12)
--- NOTE | 2016-07-24 18:00 | NUR ---
RN NOTES PT STABLE , ON LOOSE STOOL NOTED ON THIS SHIFT, TRACH CARE DONE , RESPIRATION EVEN AND UNLABORED , TOLERATING TF WELL, MEDICATED PER MD ORDER ON THIS SHIFT , NO SIGNIFICANT CHANGES NOTED ON THIS SHIFT
--- NOTE | 2016-07-24 19:25 | NUR ---
RN INITIAL NOTE RECEIVED PT IN NO ACUTE DISTRESS IN BED. PT IS OBTUNDED IN BED. PT IS ON MECHANICAL VENT VIA TRACH. TRACH SITE IS CLEAN DRY AND INTACT. PT TOLERATING VENT SETTING WELL WITH O2 SAT @ 100%. PT IS ON TELE WITH SR ON THE MONITOR. PT NOT SHOWING ANY S/S OF SOB, DIFFICULTY BREATHING OR PAIN AT THIS TIME. PT HAS GTUBE THAT IS CLEAN DRY INTACT AND PATENT WITH 50ML/HR AND TOLERATING WELL WITH 0 RESIDUAL. PT HAS RFA 22G THAT IS CLEAN DRY INTACT AND PATENT WITH SALINE FLUSH. PT HAS RCW HD CATH THAT IS CLEAN DRY AND INTACT. BED IN LOW LOCK POSITION WITH RIALS UP X 2. CALL LIGHT WITHIN REACH AND ALL SAFETY MEASURES ENSURED AND CARRIED OUT. WILL CONTINUE TO MONITOR PT.
[2016-07-24 20:00] VITALS: BP 112/62
[2016-07-25] VITALS: BP 135/67
[2016-07-25] MEDS: hydrALAZINE HCL 25 MG TABLET GT SCH ×4 (00:10→17:20)
[2016-07-25] MEDS: BLOOD SUGAR DIAGNOSTIC 1 EACH STRIP IN SCH ×5 (00:14→23:59)
[2016-07-25] MEDS: INSULIN REGULAR, HUMAN 100 UNIT/ML 3 ML VIAL SQ PRN ×5 (00:16→23:59)
[2016-07-25] MEDS: ALBUTEROL FS 2.5 MG/3 ML VIAL.NEB NEB SCH ×4 (01:39→19:29)
[2016-07-25] MEDS: IPRATROPIUM NEB FS 0.5 MG/2.5 ML AMPUL.NEB NEB SCH ×4 (01:39→19:29)
[2016-07-25] MEDS: METRONIDAZOLE 500MG/ NS 100ML 500 MG in PREMIX 1 EA IV SCH ×3 (03:55→18:15)
[2016-07-25 04:00] VITALS: BP 126/61
--- NOTE | 2016-07-25 07:10 | NUR ---
RN INITIAL NOTES RECEIVED PT IN BED, OBTUNDED, OPENS EYES, DOES NOT FOLLOW COMMANDS, [facility], PORTEX #7 AC 12 TV 500 FIO2 50% PEEP 5, SATING WELL, NO S/S OF RESP. DISTRESS OR SOB NOTED AT THIS TIME. PT IS ON TELE MONITOR SHOWING SR @ 83 BPM, NO C/O OF DISCOMFORT OR DISTRESS AT THIS TIME, PT IS NOTED WITH MULTIPLE SKIN ISSUES, PT HAS RFA # 22G, SL, C/D/I/PATENT, FLUSHING WELL, NO S/S OF INFECTION/ INFILTRATION NOTED AT THIS TIME, RCW HD CATH, DRESSING CLEAN AND DRY, INTACT, PT HAS GTUBE, PATENT/ INTACT, RUNNING NOVASOURCE@ 50ML/HR, TOLERATING WELL, NO RESIDUALS NOTED AT THIS TIME, ISOLATION PRECAUTION OBSERVED AT ALL TIMES, ALL SAFETY MEASURES IN PLACE AT ALL TIMES, CALL LIGHT WITHIN EASY REACH, WILL MONITOR PT CLOSELY FOR CHANGES
--- NOTE | 2016-07-25 07:11 | NUR ---
RN CLOSING NOTE PT REMAINS IN NO ACUTE DISTRESS IN BED. PT DID NOT HAVE ANY SIGNIFICANT CHANGE IN CONDITION DURING SHIFT. PT TOLERATED VENT SETTING WELL. ALL NEEDS MET ALL ORDERS CARRIED OUT. WILL ENDORSE TO AM RN FOR CONTINUITY OF CARE.
[2016-07-25] MEDS: ACETYLCYSTEINE 10% SOLN 400 MG/4 ML VIAL NEB SCH ×3 (07:46→23:23)
[2016-07-25 08:00] VITALS: BP 137/66
[2016-07-25] MEDS: NYSTATIN (PYXIS) 500,000 UNIT/5 ML ORAL.SUSP PO SCH ×3 (08:41→16:15)
[2016-07-25] MEDS: PANTOPRAZOLE 40 MG/PACK PACK GT SCH ×2 (08:41→21:37)
[2016-07-25] MEDS: VANCOMYCIN HCL 125 MG/2.5 ML ORAL.SUSP PO SCH ×4 (08:41→21:38)
[2016-07-25] MEDS: FERROUS SULFATE UDC 300 MG/5 ML UDC GT SCH (08:41)
[2016-07-25] MEDS: ZINC SULFATE 220 MG CAPSULE GT SCH (08:42)
[2016-07-25] MEDS: LOSARTAN POTASSIUM 50 MG TABLET GT SCH ×2 (08:42→21:00)
[2016-07-25] MEDS: AMLODIPINE BESYLATE 5 MG TABLET GT SCH ×2 (08:42→21:00)
[2016-07-25] MEDS: FAMOTIDINE (20 MG) 20 MG TABLET GT SCH (08:42)
[2016-07-25] MEDS: ASCORBIC ACID 500 MG TABLET GT SCH (08:42)
[2016-07-25] MEDS: PROSOURCE / PROSTAT (PYXIS) 30 ML UDC GT SCH (08:42)
[2016-07-25] MEDS: LEVETIRACETAM SOL (5 ML) 100 MG/ML UDC GT SCH ×2 (08:42→21:36)
[2016-07-25] MEDS: VIT B CMPLX 3/FA/VIT C/BIOTIN 1 TAB TABLET GT SCH (08:42)
[2016-07-25] MEDS: prednisoLONE ACETATE 1% SUSP 5 ML BOTTLE LEFTEYE SCH (08:43)
[2016-07-25] MEDS: Z GUARD REMEDY 2 OZ OINT TP SCH (08:45)
[2016-07-25] MEDS: DAKINS QUARTER STRENGTH (0.125%) 480 ML BOTTLE TOP SCH ×2 (08:45→16:16)
[2016-07-25] MEDS: INSULIN DETEMIR 100 UNIT/ML CARTRIDGE SQ SCH (08:51)
[2016-07-25 12:00] VITALS: BP 132/63
[2016-07-25 16:00] VITALS: BP 111/56
[2016-07-25] MEDS: RENAL NOVASOURCE 1,000 ML BOTTLE GT PRN (17:20)
--- NOTE | 2016-07-25 18:37 | NUR ---
RN CLOSING NOTES PT REMAINED STABLE DURING SHIFT, ALL MEDICATIONS GIVEN, ALL MD ORDERS CARRIED OUT, PT KEPT CLEAN AND DRY, ALL TREATMENTS COMPLETED, IV C/I/PATENT, ALL SAFETY MEASURES IN PLACE AT ALL TIMES, CALL LIGHT WITHIN EASY REACH, ALL NEEDS ATTENDED TOO, WILL GIVE REPORT TO PM RN FOR SHERRY
--- NOTE | 2016-07-25 19:30 | NUR ---
VACUUM SYSTEM TESTER INITIAL NOTES RECEIVED PATIENT OBTUNDED, NON-VERBAL, VENT DEPENDENT. NO S/S OF PAIN OR DISCOMFORT. RESPIRATIONS EVEN AND UNLABORED WITH VENT SETTINGS AC 12, VT 500, FIO2 50%, PEEP 5. ON TELE MONITOR SINUS RHYTHM. SKIN WARM AND DRY TO TOUCH. TOLERATING GTF. GT PATENT AND INTACT. WITH RF 22G PATENT AND INTACT. HOB KEPT ELEVATED. SIDE RAILS UP AND LOCKED . BED KEPT AT LOWEST POSITION. CALL LIGHT KEPT WITHIN EASY REACH. WILL CONTINUE TO MONITOR.
[2016-07-25 20:00] VITALS: BP 118/69
[2016-07-25] MEDS: ACETAMINOPHEN 650 MG/20.3 ML UDC GT PRN (21:36)
[2016-07-26] VITALS (7 sets, daily range): BP systolic 127–147; BP diastolic 61–79
[2016-07-26] MEDS: ALBUTEROL FS 2.5 MG/3 ML VIAL.NEB NEB SCH ×4 (01:15→20:01)
[2016-07-26] MEDS: IPRATROPIUM NEB FS 0.5 MG/2.5 ML AMPUL.NEB NEB SCH ×4 (01:15→20:01)
[2016-07-26] MEDS ORDERED: IV NS 0.9% 250 ML IV ONE (03:05)
[2016-07-26] MEDS: METRONIDAZOLE 500MG/ NS 100ML 500 MG in PREMIX 1 EA IV SCH ×2 (03:11→11:09)
[2016-07-26] MEDS: INSULIN REGULAR, HUMAN 100 UNIT/ML 3 ML VIAL SQ PRN ×3 (06:20→17:25)
[2016-07-26] MEDS: BLOOD SUGAR DIAGNOSTIC 1 EACH STRIP IN SCH ×3 (06:20→17:23)
[2016-07-26] MEDS: hydrALAZINE HCL 25 MG TABLET GT SCH ×4 (06:24→17:22)
--- NOTE | 2016-07-26 06:34 | NUR ---
DIALYSIS NURSE AT BEDSIDE.
[2016-07-26 07:04] LABS: BASOPHILS % (AUTO) 0.1 % (0.0-2.0); EOSINOPHILS # (AUTO) 0.1 /CMM (0.0-0.7); EOSINOPHILS % (AUTO) 3.8 % (0.0-6.0); HEMATOCRIT 49 % (33-45); HEMOGLOBIN 16.1 g/dL (11.5-14.8); LYMPHOCYTES # (AUTO) 0.3 /CMM (0.8-4.8); LYMPHOCYTES % (AUTO) 9.7 % (20.0-44.0); MEAN CORPUSCULAR HEMOGLOBIN 30 PG (26.0-33.0); MEAN CORPUSCULAR HGB CONC 33 g/dl (31.0-36.0); MEAN CORPUSCULAR VOLUME 91 fL (82-100); MONOCYTES # (AUTO) 0.3 /CMM (0.1-1.30); MONOCYTES % (AUTO) 7.2 % (2.0-12.0); NEUTROPHILS # (AUTO) 2.8 /CMM (1.8-8.9); NEUTROPHILS % (AUTO) 79.2 % (43.0-81.0); PLATELET COUNT (AUTO) 112 /CMM (150-450); RDW COEFFICIENT OF VARIATION 15.2 (11.5-15.0); RED BLOOD CELL COUNT(AUTO) 5.36 MIL/uL (4.0-5.2); WHITE BLOOD COUNT (AUTO) 3.5 K/uL (4.3-11.0)
--- NOTE | 2016-07-26 07:20 | NUR ---
RN INITIAL NOTES: REC'D PT ON BED, HOB ELEVATED, OBTUNDED, NOT IN ANY DISTRESS. ON MV VIA TRACHE W/ FF SETTINGS: PORTEX 7, AC 12, TV 500, FIO2 50%, PEEP 5, NO SOB NOTED. ON TELEMONITOR SR AT 80 TO 90'S. ON CONT GT FEEDING, PATENT & INTACT. HAS R CW HD CATH DRY & INTACT. HAS R FT G22 SL, PATENT, INTACT, C/D/I, NO SIGNS OF INFECTION/ INFILTRATION NOTED. PT CURRENTLY ON HD PROCEDURE, VSS. KEPT CLEAN & DRY. BED KEPT LOW & IN LOCKED POSITION. WILL TURN & REPOSITION, OFFLOAD HEELS PROTOCOL. NEEDS ATTENDED. WILL CONTINUE TO MONITOR.
[2016-07-26 07:21] LABS: ALBUMIN 2.3 g/dL (3.4-5.0); BILIRUBIN,TOTAL 0.4 mg/dL (0.2-1.0); CALCIUM, SERUM 8.9 mg/dL (8.5-10.1); CREATININE 5.3 mg/dL (0.6-1.3); MAGNESIUM 2.2 mg/dL (1.8-2.4); PHOSPHORUS 2.9 mg/dL (2.5-4.9); POTASSIUM 3.5 mmol/L (3.5-5.1); TOTAL PROTEIN, SERUM 6.8 g/dL (6.4-8.2)
[2016-07-26] MEDS: ACETYLCYSTEINE 10% SOLN 400 MG/4 ML VIAL NEB SCH ×3 (07:22→23:52)
--- NOTE | 2016-07-26 07:26 | NUR ---
WILDLAND FIRE OPERATIONS SPECIALIST CLOSING NOTES NO SIGNIFICANT CHANGES OVERNIGHT. ALL NEEDS ANTICIPATED AND MET. TOLERATED GTF. KEPT CLEAN AND DRY. TURNED AND REPOSITIONED Q2 AND PRN. TOLERATED VENT SETTINGS. ALL WOUND CARE DONE ORDERED. SUCTIONED NEEDED. TRACH CARE DONE. HOB KEPT ELEVATED. SIDE RAILS UP AND LOCKED. BED KEPT AT LOWEST POSITION. CALL LIGHT KEPT WITHIN EASY REACH. WILL ENDORSE CONTINUITY OF CARE TO AM NURSE.
[2016-07-26] MEDS: FERROUS SULFATE UDC 300 MG/5 ML UDC GT SCH (08:59)
[2016-07-26] MEDS: PANTOPRAZOLE 40 MG/PACK PACK GT SCH ×2 (09:00→20:59)
[2016-07-26] MEDS: NYSTATIN (PYXIS) 500,000 UNIT/5 ML ORAL.SUSP PO SCH ×3 (09:00→17:19)
[2016-07-26] MEDS: ZINC SULFATE 220 MG CAPSULE GT SCH (09:00)
[2016-07-26] MEDS: VIT B CMPLX 3/FA/VIT C/BIOTIN 1 TAB TABLET GT SCH (09:00)
[2016-07-26] MEDS: PROSOURCE / PROSTAT (PYXIS) 30 ML UDC GT SCH (09:00)
[2016-07-26] MEDS: AMLODIPINE BESYLATE 5 MG TABLET GT SCH ×2 (09:00→20:59)
[2016-07-26] MEDS: ASCORBIC ACID 500 MG TABLET GT SCH (09:00)
[2016-07-26] MEDS: LEVETIRACETAM SOL (5 ML) 100 MG/ML UDC GT SCH ×2 (09:00→20:59)
[2016-07-26] MEDS: LOSARTAN POTASSIUM 50 MG TABLET GT SCH ×2 (09:00→20:58)
[2016-07-26] MEDS: VANCOMYCIN HCL 125 MG/2.5 ML ORAL.SUSP PO SCH ×4 (09:01→20:59)
[2016-07-26] MEDS: INSULIN DETEMIR 100 UNIT/ML CARTRIDGE SQ SCH (09:02)
[2016-07-26] MEDS: Z GUARD REMEDY 2 OZ OINT TP SCH (09:03)
[2016-07-26] MEDS: DAKINS QUARTER STRENGTH (0.125%) 480 ML BOTTLE TOP SCH ×2 (09:03→17:24)
[2016-07-26] MEDS: prednisoLONE ACETATE 1% SUSP 5 ML BOTTLE LEFTEYE SCH (09:04)
[2016-07-26 10:17] LABS: CALCIUM, SERUM 8.5 mg/dL (8.5-10.1); CREATININE 3.5 mg/dL (0.6-1.3); POTASSIUM 3.3 mmol/L (3.5-5.1)
[2016-07-26] MEDS: RENAL NOVASOURCE 1,000 ML BOTTLE GT PRN (11:10)
[2016-07-26 11:14] LABS: BASOPHILS % (AUTO) 0.2 % (0.0-2.0); EOSINOPHILS # (AUTO) 0.3 /CMM (0.0-0.7); EOSINOPHILS % (AUTO) 3.9 % (0.0-6.0); HEMATOCRIT 24 % (33-45); LYMPHOCYTES # (AUTO) 0.8 /CMM (0.8-4.8); LYMPHOCYTES % (AUTO) 11.9 % (20.0-44.0); MEAN CORPUSCULAR HEMOGLOBIN 30 PG (26.0-33.0); MEAN CORPUSCULAR HGB CONC 33 g/dl (31.0-36.0); MEAN CORPUSCULAR VOLUME 90 fL (82-100); MONOCYTES # (AUTO) 0.6 /CMM (0.1-1.30); MONOCYTES % (AUTO) 8.2 % (2.0-12.0); NEUTROPHILS # (AUTO) 5.4 /CMM (1.8-8.9); NEUTROPHILS % (AUTO) 75.8 % (43.0-81.0); PLATELET COUNT (AUTO) 214 /CMM (150-450); RDW COEFFICIENT OF VARIATION 15.3 (11.5-15.0); RED BLOOD CELL COUNT(AUTO) 2.66 MIL/uL (4.0-5.2); WHITE BLOOD COUNT (AUTO) 7.1 K/uL (4.3-11.0)
--- NOTE | 2016-07-26 12:13 | NUR ---
RN NOTES PAGED DR. SOTO REGARDING LAB RESULTS, AWAITING CALL BACK, NO NEW ORDERS AT THIS TIME
--- NOTE | 2016-07-26 13:30 | NUR ---
RN NOTES: PT HAD 1 EPISODE OF LOOSE BM.
--- NOTE | 2016-07-26 18:25 | NUR ---
RN CLOSING NOTES: PT REMAINED STABLE, NOT IN ANY DISTRESS. TOLERATED MV SETTINGS, NO SOB. SUCTIONED SECRETIONS NEEDED. GT FEEDING TOLERATED WELL, NO RESIDUAL NOTED. R FT G22 SL, PATENT, C/D/I, NO SIGNS OF INFECTION/ INFILTRATION. WOUND CARE DONE. TURNED & REPOSITIONED, OFFLOAD HEELS DONE. BED KEPT LOW & IN LOCKED POSITION. WILL ENDORSED TO PM RN.
--- NOTE | 2016-07-26 19:30 | NUR ---
SURVEILLANCE INSPECTOR INITIAL NOTES RECEIVED PT ON BEDREST. OBTUNDED WITH OPEN EYES. ON [facility] VENT PORTEX 7, AC12, TV500, FIO2 50%, PEEP5 Addendum: 07/26/16 at 2009 by KAMILLA AMBROSE RN SATING WELL. TELE- SINUS RHYTHM 80'S. IV INTACT, CLEAN, FLUSHING WELL. R CHEST WALL HD CATH CLEAN AND INTACT. GTUBE FLUSHING WELL WITH NO RESIDUAL AND FEEDING WELL TOLERATED. ALL SAFETY MEASURES IN PLACE. WILL CONTINUE TO MONITOR.
[2016-07-26] MEDS: METRONIDAZOLE 500 MG TABLET GT SCH (20:58)
[2016-07-26] MEDS: SCOPOLAMINE HBR 1 EA PATCH.TD72 TD SCH (21:23)
[2016-07-27] VITALS: BP 129/77
[2016-07-27] MEDS: BLOOD SUGAR DIAGNOSTIC 1 EACH STRIP IN SCH ×4 (00:25→17:45)
[2016-07-27] MEDS: INSULIN REGULAR, HUMAN 100 UNIT/ML 3 ML VIAL SQ PRN ×4 (00:33→19:14)
[2016-07-27] MEDS: IPRATROPIUM NEB FS 0.5 MG/2.5 ML AMPUL.NEB NEB SCH ×4 (01:24→19:48)
[2016-07-27] MEDS: ALBUTEROL FS 2.5 MG/3 ML VIAL.NEB NEB SCH ×4 (01:24→19:48)
[2016-07-27 04:00] VITALS: BP 144/75
[2016-07-27] MEDS: hydrALAZINE HCL 25 MG TABLET GT SCH ×4 (05:26→17:36)
[2016-07-27] MEDS: METRONIDAZOLE 500 MG TABLET GT SCH ×3 (05:26→20:50)
--- NOTE | 2016-07-27 06:30 | NUR ---
BREAKER UP CLOSING NOTES PT REMAINED IN STABLE CONDITION DURING SHIFT. MECH VENT WELL TOLERATED. SATING WELL. IV SITE INTACT. GTUBE FEEDING WELL TOLERATED WITHOUT RESIDUAL. ALL SAFETY MEASURES IN PLACE. WILL ENDORSE TO NEXT SHIFT FOR SHERRY.
[2016-07-27 07:47] LABS: BASOPHILS % (AUTO) 0.2 % (0.0-2.0); EOSINOPHILS # (AUTO) 0.2 /CMM (0.0-0.7); EOSINOPHILS % (AUTO) 3.2 % (0.0-6.0); HEMATOCRIT 23 % (33-45); HEMOGLOBIN 7.9 g/dL (11.5-14.8); LYMPHOCYTES # (AUTO) 0.8 /CMM (0.8-4.8); LYMPHOCYTES % (AUTO) 9.8 % (20.0-44.0); MEAN CORPUSCULAR HEMOGLOBIN 31 PG (26.0-33.0); MEAN CORPUSCULAR HGB CONC 34 g/dl (31.0-36.0); MEAN CORPUSCULAR VOLUME 91 fL (82-100); MONOCYTES # (AUTO) 0.6 /CMM (0.1-1.30); MONOCYTES % (AUTO) 7.8 % (2.0-12.0); NEUTROPHILS # (AUTO) 6.1 /CMM (1.8-8.9); PLATELET COUNT (AUTO) 213 /CMM (150-450); RDW COEFFICIENT OF VARIATION 15.5 (11.5-15.0); RED BLOOD CELL COUNT(AUTO) 2.56 MIL/uL (4.0-5.2); WHITE BLOOD COUNT (AUTO) 7.7 K/uL (4.3-11.0)
[2016-07-27] MEDS: ACETYLCYSTEINE 10% SOLN 400 MG/4 ML VIAL NEB SCH ×3 (07:55→23:48)
--- NOTE | 2016-07-27 07:55 | NUR ---
RT PATIENT REC'D TRACHED ON [facility] VENT WITH ORDERED SETTINGS SET BY . VENT ALARMS CHECKED + AUDIBLE. TRACH SECURE AND IN PROPER POSITION. INNER CANNULA CHECKED AND PATENT. PATIENT SX'D WITH MOD AMT PALE SEMITHICK SECRETIONS. B/S DIM. PATIENT IN NO DISTRESS OR SOB. AMBU BAG AT HOB. CONT CURRENT PLAN OF RESP CARE. Addendum: 07/27/16 at 1149 by DANELLE MORTENSEN RT Amended: Links added.
[2016-07-27 08:00] VITALS: BP 138/59
[2016-07-27 08:02] LABS: ALBUMIN 2.3 g/dL (3.4-5.0); BILIRUBIN,TOTAL 0.4 mg/dL (0.2-1.0); CALCIUM, SERUM 8.9 mg/dL (8.5-10.1); CREATININE 4.4 mg/dL (0.6-1.3); MAGNESIUM 2.2 mg/dL (1.8-2.4); PHOSPHORUS 2.6 mg/dL (2.5-4.9); POTASSIUM 3.8 mmol/L (3.5-5.1); TOTAL PROTEIN, SERUM 6.9 g/dL (6.4-8.2)
[2016-07-27] MEDS: PANTOPRAZOLE 40 MG/PACK PACK GT SCH ×2 (08:49→20:49)
[2016-07-27] MEDS: LEVETIRACETAM SOL (5 ML) 100 MG/ML UDC GT SCH ×2 (08:50→20:50)
[2016-07-27] MEDS: LOSARTAN POTASSIUM 50 MG TABLET GT SCH ×2 (08:50→20:51)
[2016-07-27] MEDS: FERROUS SULFATE UDC 300 MG/5 ML UDC GT SCH (08:51)
[2016-07-27] MEDS: NYSTATIN (PYXIS) 500,000 UNIT/5 ML ORAL.SUSP PO SCH ×3 (08:51→17:37)
[2016-07-27] MEDS: AMLODIPINE BESYLATE 5 MG TABLET GT SCH ×2 (08:52→20:51)
[2016-07-27] MEDS: FAMOTIDINE (20 MG) 20 MG TABLET GT SCH (08:55)
[2016-07-27] MEDS: PROSOURCE / PROSTAT (PYXIS) 30 ML UDC GT SCH (08:55)
[2016-07-27] MEDS: DAKINS QUARTER STRENGTH (0.125%) 480 ML BOTTLE TOP SCH ×2 (09:00→17:45)
[2016-07-27] MEDS: Z GUARD REMEDY 2 OZ OINT TP SCH (09:00)
[2016-07-27] MEDS: VANCOMYCIN HCL 125 MG/2.5 ML ORAL.SUSP PO SCH ×4 (10:20→20:49)
[2016-07-27] MEDS: ZINC SULFATE 220 MG CAPSULE GT SCH (10:21)
[2016-07-27] MEDS: ASCORBIC ACID 500 MG TABLET GT SCH (10:21)
[2016-07-27] MEDS: VIT B CMPLX 3/FA/VIT C/BIOTIN 1 TAB TABLET GT SCH (10:21)
[2016-07-27] MEDS: prednisoLONE ACETATE 1% SUSP 5 ML BOTTLE LEFTEYE SCH (10:21)
[2016-07-27] MEDS: INSULIN DETEMIR 100 UNIT/ML CARTRIDGE SQ SCH (10:26)
[2016-07-27 12:00] VITALS: BP 131/75
[2016-07-27 16:00] VITALS: BP 136/71
--- NOTE | 2016-07-27 19:30 | NUR ---
STUDENT LIAISON OFFICER INITIAL NOTES PT RECEIVED STABLE AND RESTING IN BED. OBTUNDED WITH OPEN EYES. ON MECH VENT WELL TOLERATED AND SATING WELL. TELE SINUS RHYTHM 80'S. GTUBE FEEDING WELL TOLERATED, 5ML RESIDUAL AND FLUSHING WELL. GTUBE SITE CLEAN, DRY AND INTACT. IV R FOOT#22G SL, PATENT, FLUSHING WELL, NO S/S OF INFECTION NOTED. R CHEST WALL HD CATH CLEAN AND INTACT. ALL SAFETY MEASURES IN PLACE. WILL CONTINUE TO MONITOR.
[2016-07-27 20:00] VITALS: BP 134/69
[2016-07-28] VITALS (7 sets, daily range): BP systolic 132–159; BP diastolic 60–73
[2016-07-28] MEDS: BLOOD SUGAR DIAGNOSTIC 1 EACH STRIP IN SCH ×4 (00:50→17:38)
[2016-07-28] MEDS: hydrALAZINE HCL 25 MG TABLET GT SCH ×4 (00:50→17:35)
[2016-07-28] MEDS: INSULIN REGULAR, HUMAN 100 UNIT/ML 3 ML VIAL SQ PRN ×4 (00:59→17:42)
[2016-07-28] MEDS: ALBUTEROL FS 2.5 MG/3 ML VIAL.NEB NEB SCH ×5 (01:24→20:30)
[2016-07-28] MEDS: IPRATROPIUM NEB FS 0.5 MG/2.5 ML AMPUL.NEB NEB SCH ×5 (01:24→20:30)
[2016-07-28] MEDS ORDERED: IV SET PRIMARY PUMP SET 1 EA INFUS.SET MC ONE (05:03)
[2016-07-28] MEDS ORDERED: IV NS 0.9% 250 ML IV ONE (05:03)
[2016-07-28] MEDS: METRONIDAZOLE 500 MG TABLET GT SCH ×3 (05:17→21:54)
--- NOTE | 2016-07-28 06:30 | NUR ---
SOFTWARE LICENSING ANALYST CLOSING NOTE PT REMAINED IN STABLE CONDITION DURING SHIFT. MECH VENT WELL TOLERATED AND SATING WELL. IV SITE INTACT AND FLUSHING WELL. GTUBE FEEDING WELL TOLERATED AND NO RESIDUAL, FLUSHING WELL. ALL SAFETY MEASURES IN PLACE. WILL ENDORSE TO NEXT SHIFT FOR SHERRY.
--- NOTE | 2016-07-28 07:30 | NUR ---
RN INITIAL NOTES RECEIVED PT IN BED, NON VERBAL,UNABLE TO FOLLOW COMMANDS, PT IS ON TELE MONITOR SHOWING SR 80'S. NO S/S OF DISCOMFORT OR DISTRESS AT THIS TIME, PT IS ON [facility] VENT PORTEX 7, AC 12 TV, TV 500 FI02 50%, PEEP 5. NO S/S OF RESP. DISTRESS OR SOB NOTED, PT HAS G TUBE, C/D/I/PATENT, FLUSHING WELL, RUNNING NOVASOURCE @ 50 ML/HR, TOLERATING WELL, NO RESIDUALS NOTED, PT IS NOTED WITH MULTIPLE SKIN ISSUES, PT HAS R FOOT #22G, SL, C/D/I/PATENT, FLUSHING WELL, NO S/S INFECTION/ INFILTRATION NOTED AT THIS TIME, RCW HD CATH. DRESSING INTACT AND CLEAN. ISOLATION PRECAUTIONS IN PLACE AT ALL TIMES. ALL SAFETY MEASURES IN PLACE AT ALL TIMES, CALL LIGHT WITHIN EASY REACH, WILL MONITOR CLOSELY FOR CHANGES
[2016-07-28 07:32] LABS: BASOPHILS % (AUTO) 0.3 % (0.0-2.0); EOSINOPHILS # (AUTO) 0.3 /CMM (0.0-0.7); EOSINOPHILS % (AUTO) 3.4 % (0.0-6.0); HEMATOCRIT 26 % (33-45); HEMOGLOBIN 8.7 g/dL (11.5-14.8); LYMPHOCYTES # (AUTO) 0.8 /CMM (0.8-4.8); MEAN CORPUSCULAR HEMOGLOBIN 31 PG (26.0-33.0); MEAN CORPUSCULAR HGB CONC 34 g/dl (31.0-36.0); MEAN CORPUSCULAR VOLUME 91 fL (82-100); MONOCYTES # (AUTO) 0.6 /CMM (0.1-1.30); NEUTROPHILS # (AUTO) 6.6 /CMM (1.8-8.9); NEUTROPHILS % (AUTO) 79.3 % (43.0-81.0); PLATELET COUNT (AUTO) 222 /CMM (150-450); RDW COEFFICIENT OF VARIATION 14.6 (11.5-15.0); RED BLOOD CELL COUNT(AUTO) 2.83 MIL/uL (4.0-5.2); WHITE BLOOD COUNT (AUTO) 8.3 K/uL (4.3-11.0)
[2016-07-28] MEDS: ACETYLCYSTEINE 10% SOLN 400 MG/4 ML VIAL NEB SCH ×2 (07:43→15:13)
[2016-07-28 08:06] LABS: ALBUMIN 2.6 g/dL (3.4-5.0); BILIRUBIN,TOTAL 0.5 mg/dL (0.2-1.0); CALCIUM, SERUM 9.5 mg/dL (8.5-10.1); CREATININE 5.4 mg/dL (0.6-1.3); MAGNESIUM 2.4 mg/dL (1.8-2.4); POTASSIUM 4.1 mmol/L (3.5-5.1); TOTAL PROTEIN, SERUM 7.6 g/dL (6.4-8.2)
--- NOTE | 2016-07-28 08:45 | NUR ---
RN NOTES BP MEDICATIONS HELD, PT WILL BE HAVING HD
[2016-07-28] MEDS: LOSARTAN POTASSIUM 50 MG TABLET GT SCH ×2 (09:00→21:00)
[2016-07-28] MEDS: AMLODIPINE BESYLATE 5 MG TABLET GT SCH ×2 (09:00→21:00)
[2016-07-28] MEDS: PROSOURCE / PROSTAT (PYXIS) 30 ML UDC GT SCH (09:25)
[2016-07-28] MEDS: NYSTATIN (PYXIS) 500,000 UNIT/5 ML ORAL.SUSP PO SCH ×3 (09:25→17:34)
[2016-07-28] MEDS: PANTOPRAZOLE 40 MG/PACK PACK GT SCH ×2 (09:25→21:54)
[2016-07-28] MEDS: ZINC SULFATE 220 MG CAPSULE GT SCH (09:25)
[2016-07-28] MEDS: FERROUS SULFATE UDC 300 MG/5 ML UDC GT SCH (09:25)
[2016-07-28] MEDS: VIT B CMPLX 3/FA/VIT C/BIOTIN 1 TAB TABLET GT SCH (09:25)
[2016-07-28] MEDS: LEVETIRACETAM SOL (5 ML) 100 MG/ML UDC GT SCH ×2 (09:26→21:54)
[2016-07-28] MEDS: ASCORBIC ACID 500 MG TABLET GT SCH (09:26)
[2016-07-28] MEDS: RENAL NOVASOURCE 1,000 ML BOTTLE GT PRN (09:26)
[2016-07-28] MEDS: prednisoLONE ACETATE 1% SUSP 5 ML BOTTLE LEFTEYE SCH (09:32)
[2016-07-28] MEDS: Z GUARD REMEDY 2 OZ OINT TP SCH (10:53)
[2016-07-28] MEDS: VANCOMYCIN HCL 125 MG/2.5 ML ORAL.SUSP PO SCH ×4 (10:54→21:54)
[2016-07-28] MEDS: DAKINS QUARTER STRENGTH (0.125%) 480 ML BOTTLE TOP SCH ×2 (10:54→17:45)
[2016-07-28] MEDS: INSULIN DETEMIR 100 UNIT/ML CARTRIDGE SQ SCH (10:58)
--- NOTE | 2016-07-28 12:30 | NUR ---
RN NOTES HD RN IN PT ROOM
--- NOTE | 2016-07-28 19:30 | NUR ---
RN CLOSING NOTE PT REMAINED STABLE THROUGH OUT SHIFT. ALL ORDERS CARRIED OUT. PT KEPT CLEAN AND DRY. REPORT WITH BE GIVEN TO PM NURSE FOR SHERRY.
--- NOTE | 2016-07-28 19:30 | NUR ---
TELE/RN NOTES RECEIVED PT. LYING IN BED. PT. IS NON-VERBAL, IS OBTUNDED AND OPENS HER EYES. PT. IS MECHANICAL VENT/TRACH DEPENDENT. PT. HAS PORTEX #7 TRACH. PT. IS BREATHING EVEN AND UNLABORED ON MECHANICAL VENT. NO SOB, RESPIRATORY DISTRESS OR S/S OF PAIN NOTED AT THIS TIME. PT. WITH EXTERNAL SAP TECHNICAL ARCHITECT PRESENT AND INTACT. CURRENT RHYTHM = SINUS RHYTHM HR 100. PT. WITH RIGHT FOOT 22 GAUGE SALINE LOCK PRESENT, PATENT AND INTACT. PT. WITH RIGHT CHEST WALL HD CATHETER PRESENT AND INTACT. PT. WITH G-TUBE PRESENT AND INTACT ADMINISTERING TO PT. TUBE FEEDING OF NOVASOURCE @ 50ML/HR. PT. TOLERATING WELL. NO RESIDUAL NOTED. BED IN LOWEST POSITION, CALL LIGHT WITHIN REACH. ISOLATION PRECAUTIONS IN PLACE AND IMPLEMENTED AT ALL TIMES. WILL CONTINUE TO MONITOR.
[2016-07-28] MEDS: ACETAMINOPHEN 650 MG/20.3 ML UDC GT PRN (20:52)
--- NOTE | 2016-07-28 20:56 | NUR ---
pt received on vent via trach portex 7, settings as charted ambu bag at bedside alarms set and audible suctioned a small amount of thick white secretions breath sounds equal bilateral coarse pt receiving albuterol and atrovent q6 Addendum: 07/28/16 at 2055 by MARIELOS CANADA RT Amended: Links added.
--- NOTE | 2016-07-28 21:06 | NUR ---
TELE/RN NOTES PT. WITH TEMP OF 99.7F IMPLEMENTED COOLING MEASURES. ADMINISTERED TO PT. TYLENOL 650MG PRN FEVER ORDERED. WILL CONTINUE TO MONITOR.
--- NOTE | 2016-07-28 22:05 | NUR ---
TELE/RN NOTES PT. TEMPERATURE IS 98.8F. COOLING MEASURES AND MEDICATION WERE EFFECTIVE. WILL CONTINUE TO MONITOR.
[2016-07-29] VITALS: BP 142/78
[2016-07-29] MEDS: ACETYLCYSTEINE 10% SOLN 400 MG/4 ML VIAL NEB SCH ×4 (00:13→23:39)
[2016-07-29] MEDS: BLOOD SUGAR DIAGNOSTIC 1 EACH STRIP IN SCH ×4 (00:32→17:30)
[2016-07-29] MEDS: INSULIN REGULAR, HUMAN 100 UNIT/ML 3 ML VIAL SQ PRN ×4 (00:35→19:02)
[2016-07-29] MEDS: hydrALAZINE HCL 25 MG TABLET GT SCH ×4 (00:44→17:30)
--- NOTE | 2016-07-29 00:45 | NUR ---
TELE/RN NOTES PT. TEMPERATURE IS 99.4F. WILL CONTINUE WITH COOLING MEASURES. WILL CONTINUE TO MONITOR.
--- NOTE | 2016-07-29 01:15 | NUR ---
TELE/RN NOTES PT. HAD ONE LOOSE BOWEL MOVEMENT. WILL CONTINUE TO MONITOR.
[2016-07-29] MEDS: IPRATROPIUM NEB FS 0.5 MG/2.5 ML AMPUL.NEB NEB SCH ×4 (02:16→19:43)
[2016-07-29] MEDS: ALBUTEROL FS 2.5 MG/3 ML VIAL.NEB NEB SCH ×4 (02:16→19:43)
--- NOTE | 2016-07-29 02:20 | NUR ---
TELE/RN NOTES PT. TEMP IS 98.9F. WILL CONTINUE WITH COOLING MEASURES WILL CONTINUE TO MONITOR.
--- NOTE | 2016-07-29 03:00 | NUR ---
TELE/RN NOTES PT. TEMP IS 98.7F. COOLING MEASURES EFFECTIVE. WILL CONTINUE TO MONITOR.
[2016-07-29 04:00] VITALS: BP 143/80
[2016-07-29] MEDS: RENAL NOVASOURCE 1,000 ML BOTTLE GT PRN (05:51)
[2016-07-29] MEDS: METRONIDAZOLE 500 MG TABLET GT SCH ×3 (05:51→21:22)
--- NOTE | 2016-07-29 06:34 | NUR ---
TELE/RN NOTES PT. LYING IN BED RESTING. PT. IS MECHANICAL VENT/TRACH DEPENDENT. PT. HAS PORTEX #7 TRACH. BREATHING EVEN AND UNLABORED ON MECHANICAL VENT. NO SOB, RESPIRATORY DISTRESS OR S/S OF PAIN NOTED AT THIS TIME. PT. WITH EXTERNAL HR INTERN PRESENT AND INTACT. CURRENT RHYTHM = SINUS TACHYCARDIA HR 103. PT. WITH RIGHT FOOT 22 GAUGE SALINE LOCK PRESENT, PATENT AND INTACT. PT. WITH RIGHT CHEST WALL HD CATHETER PRESENT AND INTACT. PT. WITH G-TUBE PRESENT AND INTACT ADMINISTERING TO PT. TUBE FEEDING OF NOVASOURCE @ 50ML/HR. PT. TOLERATING WELL. NO RESIDUAL NOTED THROUGHOUT SHIFT. ALL PT. NEEDS MET. PT. OFFLOADED, TURNED AND REPOSITIONED Q2H AND NEEDED. BED IN LOWEST POSITION, CALL LIGHT WITHIN REACH. ISOLATION PRECAUTIONS REMAIN IN PLACE AND IMPLEMENTED AT ALL TIMES. WILL ENDORSE TO DAYSHIFT NURSE FOR CONTINUITY OF CARE.
[2016-07-29 08:00] VITALS: BP 156/66
[2016-07-29] MEDS: ZINC SULFATE 220 MG CAPSULE GT SCH (08:47)
[2016-07-29] MEDS: LOSARTAN POTASSIUM 50 MG TABLET GT SCH ×2 (08:47→21:28)
[2016-07-29] MEDS: VIT B CMPLX 3/FA/VIT C/BIOTIN 1 TAB TABLET GT SCH (08:48)
[2016-07-29] MEDS: LEVETIRACETAM SOL (5 ML) 100 MG/ML UDC GT SCH ×2 (08:48→21:22)
[2016-07-29] MEDS: NYSTATIN (PYXIS) 500,000 UNIT/5 ML ORAL.SUSP PO SCH ×3 (08:48→16:20)
[2016-07-29] MEDS: ASCORBIC ACID 500 MG TABLET GT SCH (08:48)
[2016-07-29] MEDS: FAMOTIDINE (20 MG) 20 MG TABLET GT SCH (08:48)
[2016-07-29] MEDS: PROSOURCE / PROSTAT (PYXIS) 30 ML UDC GT SCH (08:48)
[2016-07-29] MEDS: AMLODIPINE BESYLATE 5 MG TABLET GT SCH ×2 (08:48→21:23)
[2016-07-29] MEDS: FERROUS SULFATE UDC 300 MG/5 ML UDC GT SCH (08:48)
[2016-07-29] MEDS: PANTOPRAZOLE 40 MG/PACK PACK GT SCH ×2 (08:49→21:23)
[2016-07-29] MEDS: Z GUARD REMEDY 2 OZ OINT TP SCH (08:49)
[2016-07-29] MEDS: VANCOMYCIN HCL 125 MG/2.5 ML ORAL.SUSP PO SCH ×4 (08:50→21:27)
[2016-07-29] MEDS: DAKINS QUARTER STRENGTH (0.125%) 480 ML BOTTLE TOP SCH ×2 (08:53→16:20)
[2016-07-29] MEDS: INSULIN DETEMIR 100 UNIT/ML CARTRIDGE SQ SCH (08:54)
[2016-07-29] MEDS: prednisoLONE ACETATE 1% SUSP 5 ML BOTTLE LEFTEYE SCH (08:55)
[2016-07-29] MEDS ORDERED: METR500T GT (09:06)
--- NOTE | 2016-07-29 11:18 | NUR ---
RN NOTES SPOKE WITH DR ALMAZAN FROM ID, PT UPDATES REPORTED. PT HAD LOW GRADE FEVER THIS MORNING, 100.3, CURRENT TEMP 99.9. DR ALMAZAN AWARE. ALSO INFORMED HER PT DC WAS CANCELLED TODAY. PT STILL WITH EPISODE OF WATERY STOOL, FLEXISEAL PLACED.
[2016-07-29 12:00] VITALS: BP 170/68
[2016-07-29 12:03] LABS: EOSINOPHILS # (AUTO) 0.1 /CMM (0.0-0.7); EOSINOPHILS % (AUTO) 0.9 % (0.0-6.0); HEMATOCRIT 23 % (33-45); HEMOGLOBIN 7.7 g/dL (11.5-14.8); LYMPHOCYTES # (AUTO) 0.6 /CMM (0.8-4.8); LYMPHOCYTES % (AUTO) 7.2 % (20.0-44.0); MEAN CORPUSCULAR HEMOGLOBIN 30 PG (26.0-33.0); MEAN CORPUSCULAR HGB CONC 33 g/dl (31.0-36.0); MEAN CORPUSCULAR VOLUME 91 fL (82-100); MONOCYTES # (AUTO) 0.6 /CMM (0.1-1.30); MONOCYTES % (AUTO) 7.5 % (2.0-12.0); NEUTROPHILS # (AUTO) 7.2 /CMM (1.8-8.9); NEUTROPHILS % (AUTO) 84.4 % (43.0-81.0); PLATELET COUNT (AUTO) 218 /CMM (150-450); RDW COEFFICIENT OF VARIATION 14.9 (11.5-15.0); RED BLOOD CELL COUNT(AUTO) 2.57 MIL/uL (4.0-5.2); WHITE BLOOD COUNT (AUTO) 8.5 K/uL (4.3-11.0)
[2016-07-29 12:21] LABS: LACTIC ACID 1.2 mmol/L (0.4-2.0)
[2016-07-29 12:30] LABS: ALBUMIN 2.4 g/dL (3.4-5.0); BILIRUBIN,TOTAL 0.5 mg/dL (0.2-1.0); CREATININE 4.7 mg/dL (0.6-1.3); POTASSIUM 4.1 mmol/L (3.5-5.1); TOTAL PROTEIN, SERUM 7.2 g/dL (6.4-8.2)
[2016-07-29 16:00] VITALS: BP 129/59
[2016-07-29] MEDS: ACETAMINOPHEN 650 MG/20.3 ML UDC GT PRN (16:19)
--- NOTE | 2016-07-29 16:25 | NUR ---
RN NOTES PT TEMPN NOTED 100.9, TYLENOL PRN GIVEN. COLLING MEASURES PROVIDED. WILL CONT TO MONITOR
--- NOTE | 2016-07-29 17:00 | NUR ---
RN NOTES PT TEMP NOTED 99.2
--- NOTE | 2016-07-29 17:10 | NUR ---
RN NOTES PLACED A CALL TO DR SANTIAGO, REGARDING [facility] 7.7, DR SOTO APPRAISER REAL ESTATE. LEFT A MESSAGE TO LINE LOCATOR RAY. AWAITING FOR CALL BACK.
[2016-07-29 20:00] VITALS: BP 133/60
--- NOTE | 2016-07-29 20:00 | NUR ---
SOLE TRIMMER: REC'D PT ON BED, HOB ELEVATED, OBTUNDED, NOT IN ANY DISTRESS. ON VENT VIA TRACHE W/ FF SETTINGS: PORTEX 7, AC 12, TV 500, FIO2 50%, PEEP 5, NO SOB NOTED. ON TELE MONITOR SR AT 80 TO 90'S. ON CONT GT FEEDING NOVASOURCE AT 50 ML/HR, NO RESIDUAL.,GT PATENT & INTACT. HAS R CW HD CATH DRY & INTACT. HAS R FT G22 SL, PATENT, INTACT, C/D/I, NO SIGNS OF INFECTION/ INFILTRATION NOTED., VSS. KEPT CLEAN & DRY. BED KEPT LOW & IN LOCKED POSITION. WILL TURN & REPOSITION, OFFLOAD HEELS PROTOCOL. NEEDS ATTENDED. WILL CONTINUE TO MONITOR.
[2016-07-29] MEDS: SCOPOLAMINE HBR 1 EA PATCH.TD72 TD SCH (21:24)
--- NOTE | 2016-07-29 21:32 | NUR ---
PT RECEIVED TRACHED WITH PTX 7 ON VENT. PT TOLERATING VENT SETTINGS. SX'D AND LAVAGED FOR MOD AMT OF THICK PALE SECRETIONS. VENT ALARMS SET AND AUDIBLE. AMBU BAG AT BEDSIDE. VENT PLUGGED INTO RED OUTLET. WILL CONTINUE TO MONITOR. Addendum: 07/29/16 at 2133 by BRENT STOVER RT Amended: Links added.
[2016-07-30] VITALS: BP 139/64
[2016-07-30] MEDS: BLOOD SUGAR DIAGNOSTIC 1 EACH STRIP IN SCH ×4 (00:16→17:30)
[2016-07-30] MEDS: hydrALAZINE HCL 25 MG TABLET GT SCH ×4 (00:16→17:31)
[2016-07-30] MEDS: ALBUTEROL FS 2.5 MG/3 ML VIAL.NEB NEB SCH ×4 (01:03→19:52)
[2016-07-30] MEDS: IPRATROPIUM NEB FS 0.5 MG/2.5 ML AMPUL.NEB NEB SCH ×4 (01:03→19:52)
[2016-07-30] MEDS: RENAL NOVASOURCE 1,000 ML BOTTLE GT PRN (03:56)
[2016-07-30] MEDS ORDERED: IV NS 0.9% 250 ML IV ONE (03:57)
[2016-07-30 04:00] VITALS: BP 143/60
[2016-07-30] MEDS: INSULIN REGULAR, HUMAN 100 UNIT/ML 3 ML VIAL SQ PRN ×3 (05:56→17:31)
[2016-07-30] MEDS: METRONIDAZOLE 500 MG TABLET GT SCH ×3 (06:03→20:29)
--- NOTE | 2016-07-30 07:38 | NUR ---
RN NOTES RECEIVED PT IN BED. OBTUNDED WITH EYES OPEN. IN NO APPARENT DISTRESS. RESPIRATIONS EVEN AND UNLABORED ON ORDERED VENT SETTINGS. CLEAN AND DRY AT THIS TIME. WILL CONTINUE TO MONITOR
[2016-07-30] MEDS: ACETYLCYSTEINE 10% SOLN 400 MG/4 ML VIAL NEB SCH ×3 (07:44→23:55)
[2016-07-30 08:00] VITALS: BP 143/73
[2016-07-30] MEDS: AMLODIPINE BESYLATE 5 MG TABLET GT SCH ×2 (09:00→20:29)
[2016-07-30] MEDS: LOSARTAN POTASSIUM 50 MG TABLET GT SCH ×2 (09:00→20:29)
--- NOTE | 2016-07-30 09:00 | NUR ---
RN NOTES PT SEEN BY DR GOODE (INFECTIOUS DSE)- WITH NEW ORDERS FOR BLOOD CULTURE X 2. NOTED AND CARRIED OUT. PT NOW RECEIVING HEMODIALYSIS- HELD BP MEDS. WILL CONTINUE TO MONITOR
[2016-07-30] MEDS: VIT B CMPLX 3/FA/VIT C/BIOTIN 1 TAB TABLET GT SCH (09:25)
[2016-07-30] MEDS: NYSTATIN (PYXIS) 500,000 UNIT/5 ML ORAL.SUSP PO SCH ×3 (09:25→16:53)
[2016-07-30] MEDS: PROSOURCE / PROSTAT (PYXIS) 30 ML UDC GT SCH (09:25)
[2016-07-30] MEDS: ZINC SULFATE 220 MG CAPSULE GT SCH (09:25)
[2016-07-30] MEDS: LEVETIRACETAM SOL (5 ML) 100 MG/ML UDC GT SCH ×2 (09:25→20:29)
[2016-07-30] MEDS: FERROUS SULFATE UDC 300 MG/5 ML UDC GT SCH (09:25)
[2016-07-30] MEDS: PANTOPRAZOLE 40 MG/PACK PACK GT SCH ×2 (09:25→20:29)
[2016-07-30] MEDS: ASCORBIC ACID 500 MG TABLET GT SCH (09:25)
[2016-07-30] MEDS: VANCOMYCIN HCL 125 MG/2.5 ML ORAL.SUSP PO SCH ×4 (09:26→20:30)
[2016-07-30] MEDS: DAKINS QUARTER STRENGTH (0.125%) 480 ML BOTTLE TOP SCH ×2 (09:28→16:54)
[2016-07-30] MEDS: Z GUARD REMEDY 2 OZ OINT TP SCH (09:28)
[2016-07-30] MEDS: prednisoLONE ACETATE 1% SUSP 5 ML BOTTLE LEFTEYE SCH (09:28)
[2016-07-30] MEDS: INSULIN DETEMIR 100 UNIT/ML CARTRIDGE SQ SCH (09:29)
[2016-07-30] MEDS: ACETAMINOPHEN 650 MG/20.3 ML UDC GT PRN ×2 (11:37→16:53)
--- NOTE | 2016-07-30 11:45 | NUR ---
RN NOTES PT NOTED TO HAVE ELEVATED TEMP @ 102- COOLING MEASURES INITIATED; ACETAMINOPHEN 650 MG ADMINISTERED. WILL CONTINUE TO MONITOR
[2016-07-30 12:00] VITALS: BP 146/70
--- NOTE | 2016-07-30 13:30 | NUR ---
RN NOTES PT'S TEMP NOTED IMPROVED- 99.8. WILL CONTINUE TO MONITOR
[2016-07-30 16:00] VITALS: BP 139/60
--- NOTE | 2016-07-30 18:00 | NUR ---
RN NOTES PT IN BED. OBTUNDED. ABLE TO OPEN EYES. RESPONSIVE TO TACTILE STIMULI. RESPIRATIONS EVEN AND UNLABORED ON ORDERED VENT SETTINGS. AFEBRILE AT THIS TIME @ 98.5. PT TOLERATED ALL MEDS AND TREATMENTS. WILL ENDORSE TO ONCOMING SHIFT
--- NOTE | 2016-07-30 18:30 | NUR ---
RN NOTES SPOKE WITH LAB AND RECEIVED REPORT FOR PRELIMINARY BLOOD CULTURE (GRAM POSITIVE COCCI IN CLUSTER). PAGED DR ALMAZAN- WILL AWAIT FOR CALL BACK. WILL ENDORSE TO ONCOMING SHIFT
[2016-07-30 20:00] VITALS: BP 133/64
--- NOTE | 2016-07-30 20:00 | NUR ---
WEIGHT TRAINER - RECEIVED PT IN BED. OBTUNDED WITH EYES OPEN. IN NO APPARENT DISTRESS. RESPIRATIONS EVEN AND UNLABORED ON ORDERED VENT SETTINGS. CLEAN AND DRY AT THIS TIME. WILL CONTINUE TO MONITOR
[2016-07-31] VITALS (11 sets, daily range): BP systolic 126–145; BP diastolic 65–74
[2016-07-31] MEDS: INSULIN REGULAR, HUMAN 100 UNIT/ML 3 ML VIAL SQ PRN ×4 (01:17→17:13)
[2016-07-31] MEDS: ALBUTEROL FS 2.5 MG/3 ML VIAL.NEB NEB SCH ×4 (02:15→20:32)
[2016-07-31] MEDS: IPRATROPIUM NEB FS 0.5 MG/2.5 ML AMPUL.NEB NEB SCH ×4 (02:15→20:32)
[2016-07-31] MEDS: METRONIDAZOLE 500 MG TABLET GT SCH ×3 (04:21→21:50)
[2016-07-31] MEDS: RENAL NOVASOURCE 1,000 ML BOTTLE GT PRN (04:21)
--- NOTE | 2016-07-31 05:00 | NUR ---
BLOOD CULTURES FROM HD CATH CAME BACK POSITIVE FOR GRAM POSITIVE COCCI IN CLUSTERS, MD MIRANDA NOTIFIED, PT ON ABX, NO NEW ORDERS
[2016-07-31] MEDS: hydrALAZINE HCL 25 MG TABLET GT SCH ×4 (06:11→17:02)
[2016-07-31] MEDS: BLOOD SUGAR DIAGNOSTIC 1 EACH STRIP IN SCH ×4 (06:11→17:02)
[2016-07-31] MEDS: ACETYLCYSTEINE 10% SOLN 400 MG/4 ML VIAL NEB SCH ×3 (07:12→23:38)
--- NOTE | 2016-07-31 07:30 | NUR ---
SAFETY BELT INSTALLER NOTES PT IN BED, NO FACIAL GRIMACING OR MOANING, NOT IN DISTRESS, VENT IN PLACE, GT FEEDING INFUSING WELL, KEPT WARM AND COMFORTABLE.
[2016-07-31] MEDS: VANCOMYCIN HCL 125 MG/2.5 ML ORAL.SUSP PO SCH ×4 (08:05→21:50)
[2016-07-31] MEDS: LEVETIRACETAM SOL (5 ML) 100 MG/ML UDC GT SCH ×2 (08:05→21:51)
[2016-07-31] MEDS: PROSOURCE / PROSTAT (PYXIS) 30 ML UDC GT SCH (08:05)
[2016-07-31] MEDS: Z GUARD REMEDY 2 OZ OINT TP SCH (08:05)
[2016-07-31] MEDS: NYSTATIN (PYXIS) 500,000 UNIT/5 ML ORAL.SUSP PO SCH ×3 (08:06→16:57)
[2016-07-31] MEDS: ZINC SULFATE 220 MG CAPSULE GT SCH (08:06)
[2016-07-31] MEDS: VIT B CMPLX 3/FA/VIT C/BIOTIN 1 TAB TABLET GT SCH (08:06)
[2016-07-31] MEDS: PANTOPRAZOLE 40 MG/PACK PACK GT SCH ×2 (08:06→21:51)
[2016-07-31] MEDS: FAMOTIDINE (20 MG) 20 MG TABLET GT SCH (08:06)
[2016-07-31] MEDS: ASCORBIC ACID 500 MG TABLET GT SCH (08:06)
[2016-07-31] MEDS: ACETAMINOPHEN 650 MG/20.3 ML UDC GT PRN ×2 (08:06→14:10)
[2016-07-31] MEDS: FERROUS SULFATE UDC 300 MG/5 ML UDC GT SCH (08:06)
[2016-07-31] MEDS: DAKINS QUARTER STRENGTH (0.125%) 480 ML BOTTLE TOP SCH ×2 (08:07→16:58)
[2016-07-31] MEDS: AMLODIPINE BESYLATE 5 MG TABLET GT SCH ×2 (08:16→21:51)
[2016-07-31] MEDS: LOSARTAN POTASSIUM 50 MG TABLET GT SCH ×2 (08:16→21:51)
[2016-07-31] MEDS: INSULIN DETEMIR 100 UNIT/ML CARTRIDGE SQ SCH (08:22)
[2016-07-31] MEDS: prednisoLONE ACETATE 1% SUSP 5 ML BOTTLE LEFTEYE SCH (08:26)
--- NOTE | 2016-07-31 11:02 | NUR ---
ACCOUNT SERVICES SPECIALIST NOTES PT IN BED, RESTING, NOT IN DISTRESS, NO SIGN OF PAIN OR DISCOMFORT, SEEN BY DR. GABINO MD INFORMED OF EPISODES OF ELEVATED BODY TEMPERATURE.
--- NOTE | 2016-07-31 11:42 | NUR ---
INFORMATION SECURITY CONSULTANT NOTES PER GREGORIO JUAREZ TO TRANSFUSE PRBC IF TEMP IS LESS THAN 100.0
[2016-07-31] MEDS ORDERED: IV NS 0.9% 250 ML IV ONE (14:14)
[2016-07-31] MEDS ORDERED: BLOOD IV SET 1 EA INFUS.SET MC ONE (14:14)
--- NOTE | 2016-07-31 18:11 | NUR ---
TRIAL CONSULTANT NOTES PT IN BED, ASLEEP, EASY TO AROUSE, NON VERBAL, NO SIGN OF PAIN OR DISTRESS, GT FEEDING INFUSING WELL, PM CARE RENDERED, SKIN TREATMENT DONE, AFEBRILE AT THIS TIME, INITIATED BLOOD TRANSFUSION, TOLERATING WELL, NO ADVERSE REACTION NOTED, WILL CONTINUE TO MONITOR.
--- NOTE | 2016-07-31 19:35 | NUR ---
RN INITIAL NOTE RECEIVED PT IN NO ACUTE DISTRESS IN BED. PT IS OBTUNDED AND NON VERBAL. PT IS ON MECHANICAL VENT VIA TRACH. TRACH SITE IS CLEAN DRY AND INTACT. PT TOLERATING VENT SETTING WELL. PT IS ON TELE WITH SR/ST ON THE MONITOR. PT HAS GTUBE THAT IS CLEAN DRY INTACT AND PATENT WITH FIBERSOURCE @ 50ML/HR AND TOLERATING WELL WITH 0 RESIDUAL. PT HAS 1 PRBC INFUSING NOW. PT HAS L FOOT 20G THAT IS CLEAN DRY INTACT AND PATENT WITH 1 PRBC UNIT INFUSING. PT HAS R FOOT 22G THAT IS CLEAN DRY INTACT AND PATENT. PT HAS RCW HD CATH THAT IS CLEAN DRY AND INTACT BED IN LOW LOCK POSITION WITH RAILS UP X 2. CALL LIGHT WITHIN REACH AND ALL SAFETY MEASURES ENSURED AND CARRIED OUT. WILL CONTINUE TO MONITOR PT.
[2016-07-31] MEDS ORDERED: FEE PK DOSING 1 MIN EA MC ONE (20:58)
[2016-07-31] MEDS ORDERED: SECONDARY IV SET 1 EA INFUS.SET MC ONE (21:14)
[2016-07-31] MEDS ORDERED: VANCOMYCIN 1 GM in IV D5W 250 ML IV ONE (22:00)
[2016-08-01] VITALS (7 sets, daily range): BP systolic 110–140; BP diastolic 53–77
[2016-08-01] MEDS: BLOOD SUGAR DIAGNOSTIC 1 EACH STRIP IN SCH ×4 (00:41→17:10)
[2016-08-01] MEDS: INSULIN REGULAR, HUMAN 100 UNIT/ML 3 ML VIAL SQ PRN ×4 (00:42→17:13)
[2016-08-01] MEDS: IPRATROPIUM NEB FS 0.5 MG/2.5 ML AMPUL.NEB NEB SCH ×4 (01:35→19:26)
[2016-08-01] MEDS: ALBUTEROL FS 2.5 MG/3 ML VIAL.NEB NEB SCH ×4 (01:35→19:26)
[2016-08-01] MEDS: METRONIDAZOLE 500 MG TABLET GT SCH ×3 (05:09→20:38)
[2016-08-01] MEDS: hydrALAZINE HCL 25 MG TABLET GT SCH ×4 (05:10→17:11)
--- NOTE | 2016-08-01 06:38 | NUR ---
RN CLOSING NOTE PT REMAINS IN NO ACUTE DISTRESS IN BED. PT DID NOT HAVE ANY SIGNIFICANT CHANGE IN CONDITION DURING SHIFT. PT TOLERATED VENT SETTING WELL. WILL ENDORSE CARE TO AM RN FOR CONTINUITY OF CARE. ALL NEEDS MET ALL ORDERS CARRIED OUT.
[2016-08-01] MEDS: ACETYLCYSTEINE 10% SOLN 400 MG/4 ML VIAL NEB SCH ×3 (07:29→23:06)
--- NOTE | 2016-08-01 07:29 | NUR ---
RT PATIENT REC'D TRACHED ON THE [facility] VENT WITH SETTINGS SET PER MD TOLERATED WELL. VENT ALARMS CHECKED + AUDIBLE. TRACH SECURE + IN PROPER POSITION. PATIENT APPEARS COMFORTABLE AND IN NO DISTRESS. SX'D WITH SMALL AMT PALE SEMI-THICK SECRETIONS. B/S DIM COARSE. AMBU BAG AT [facility]. Addendum: 08/01/16 at 0844 by DANELLE MORTENSEN RT Amended: Links added.
[2016-08-01 08:22] LABS: BASOPHILS % (AUTO) 0.4 % (0.0-2.0); EOSINOPHILS # (AUTO) 0.1 /CMM (0.0-0.7); EOSINOPHILS % (AUTO) 1.2 % (0.0-6.0); HEMATOCRIT 26 % (33-45); HEMOGLOBIN 8.6 g/dL (11.5-14.8); LYMPHOCYTES % (AUTO) 9.9 % (20.0-44.0); MEAN CORPUSCULAR HEMOGLOBIN 30 PG (26.0-33.0); MEAN CORPUSCULAR HGB CONC 33 g/dl (31.0-36.0); MEAN CORPUSCULAR VOLUME 92 fL (82-100); MONOCYTES # (AUTO) 0.7 /CMM (0.1-1.30); MONOCYTES % (AUTO) 7.1 % (2.0-12.0); NEUTROPHILS # (AUTO) 8.1 /CMM (1.8-8.9); NEUTROPHILS % (AUTO) 81.4 % (43.0-81.0); PLATELET COUNT (AUTO) 228 /CMM (150-450); RDW COEFFICIENT OF VARIATION 13.8 (11.5-15.0); RED BLOOD CELL COUNT(AUTO) 2.82 MIL/uL (4.0-5.2); WHITE BLOOD COUNT (AUTO) 9.9 K/uL (4.3-11.0)
[2016-08-01 08:32] LABS: CREATININE 5.6 mg/dL (0.6-1.3); MAGNESIUM 2.4 mg/dL (1.8-2.4); PHOSPHORUS 1.9 mg/dL (2.5-4.9); POTASSIUM 3.7 mmol/L (3.5-5.1)
[2016-08-01] MEDS: AMLODIPINE BESYLATE 5 MG TABLET GT SCH ×2 (09:00→20:40)
[2016-08-01] MEDS: LOSARTAN POTASSIUM 50 MG TABLET GT SCH ×2 (09:00→20:40)
[2016-08-01] MEDS: PANTOPRAZOLE 40 MG/PACK PACK GT SCH ×2 (09:11→20:38)
[2016-08-01] MEDS: ZINC SULFATE 220 MG CAPSULE GT SCH (09:12)
[2016-08-01] MEDS: ASCORBIC ACID 500 MG TABLET GT SCH (09:13)
[2016-08-01] MEDS: VIT B CMPLX 3/FA/VIT C/BIOTIN 1 TAB TABLET GT SCH (09:13)
[2016-08-01] MEDS: LEVETIRACETAM SOL (5 ML) 100 MG/ML UDC GT SCH ×2 (09:13→20:37)
[2016-08-01] MEDS: NYSTATIN (PYXIS) 500,000 UNIT/5 ML ORAL.SUSP PO SCH ×3 (09:13→17:10)
[2016-08-01] MEDS: FERROUS SULFATE UDC 300 MG/5 ML UDC GT SCH (09:13)
[2016-08-01] MEDS: VANCOMYCIN HCL 125 MG/2.5 ML ORAL.SUSP PO SCH ×4 (09:15→20:38)
[2016-08-01] MEDS: PROSOURCE / PROSTAT (PYXIS) 30 ML UDC GT SCH (09:15)
[2016-08-01] MEDS: Z GUARD REMEDY 2 OZ OINT TP SCH (09:17)
[2016-08-01] MEDS: DAKINS QUARTER STRENGTH (0.125%) 480 ML BOTTLE TOP SCH ×2 (09:19→17:12)
[2016-08-01] MEDS: prednisoLONE ACETATE 1% SUSP 5 ML BOTTLE LEFTEYE SCH (09:20)
[2016-08-01] MEDS: INSULIN DETEMIR 100 UNIT/ML CARTRIDGE SQ SCH (09:23)
[2016-08-01] MEDS ORDERED: LIDOCAINE 1%-EPI 1:100,000 20 ML VIAL TP ONE (10:30)
[2016-08-01] MEDS ORDERED: NEUTRA PHOS 1 POWD.PACKET GT ONE (16:00)
[2016-08-01] MEDS: ACETAMINOPHEN 650 MG/20.3 ML UDC GT PRN (17:10)
--- NOTE | 2016-08-01 19:37 | NUR ---
PT RECEIVED TRACHED ON VENT SETTINGS CHARTED. TRACH IS SECURE. NO RESP DISTRESS NOTED. SX MODERATE YELLOW THICK SECRETIONS. VENT IS PLUGGED IN RED OUTLET. VENT ALARMS CHECKED AND AUDIBLE. AMBU BAG BEDSIDE. WILL CONTINUE TO MONITOR Addendum: 08/02/16 at 0500 by VITOR TILLMAN RT Amended: Links added.
[2016-08-01] MEDS: SCOPOLAMINE HBR 1 EA PATCH.TD72 TD SCH (22:37)
--- NOTE | 2016-08-01 23:40 | NUR ---
RN INITIAL NOTE RECEIVED PT IN NO ACUTE DISTRESS IN BED. PT IS OBTUNDED AND NON VERBAL. PT IS ON MECHANICAL VENT VIA TRACH. TRACH SITE IS CDI. PT TOLERATING VENT SETTING WELL. PT IS ON TELE WITH SR 90's. PT HAS GTUBE THAT IS CLEAN DRY INTACT AND PATENT WITH FIBERSOURCE @ 50ML/HR AND TOLERATING WELL WITH 0 RESIDUAL. PT HAS L FOOT 20G THAT IS CLEAN DRY INTACT AND PATENT R FOOT 22G THAT IS CLEAN DRY INTACT AND PATENT. BED IN LOW LOCK POSITION WITH RAILS UP X 2. CALL LIGHT WITHIN REACH AND ALL SAFETY MEASURES ENSURED AND CARRIED OUT. WILL CONTINUE TO MONITOR PT. Addendum: 08/01/16 at 2349 by LORNE RAMIREZ RN PT WITH FLEXISEAL WATERY BROWN OUTPUT. HOB ELEVATED. ISOLATION PRECAUTIONS OBSERVED.
[2016-08-02] VITALS (7 sets, daily range): BP systolic 118–134; BP diastolic 61–79
[2016-08-02] MEDS: hydrALAZINE HCL 25 MG TABLET GT SCH ×4 (00:45→17:34)
[2016-08-02] MEDS: BLOOD SUGAR DIAGNOSTIC 1 EACH STRIP IN SCH ×4 (00:51→17:33)
[2016-08-02] MEDS: IPRATROPIUM NEB FS 0.5 MG/2.5 ML AMPUL.NEB NEB SCH ×4 (00:56→20:11)
[2016-08-02] MEDS: ALBUTEROL FS 2.5 MG/3 ML VIAL.NEB NEB SCH ×4 (00:56→20:11)
[2016-08-02] MEDS: INSULIN REGULAR, HUMAN 100 UNIT/ML 3 ML VIAL SQ PRN ×3 (00:59→17:36)
[2016-08-02] MEDS: METRONIDAZOLE 500 MG TABLET GT SCH ×3 (06:20→21:11)
--- NOTE | 2016-08-02 07:13 | NUR ---
RN CLOSING NOTES PT IS STABLE. NO S/S OF DISTRESS. ALL MD ORDERS CARRIED OUT. PT TOLERATING FEEDING. PT TOLERATING VENT SETTINGS. FLEXISEAL IN PLACE AND DRAINING. BED IN LOW POSITION AND SIDE RAILS LOCKED. PT KEPT CLEAN AND DRY, WOUND TREATMENT PERFORMED ORDERED. PT TURNED AND REPOSITIONED Q2H AND PRN. CONTINUITY OF CARE ENDORSED TO AM NURSE.
[2016-08-02 07:31] LABS: CALCIUM, SERUM 9.1 mg/dL (8.5-10.1); CREATININE 3.8 mg/dL (0.6-1.3); PHOSPHORUS 2.5 mg/dL (2.5-4.9)
[2016-08-02] MEDS: ACETYLCYSTEINE 10% SOLN 400 MG/4 ML VIAL NEB SCH ×2 (07:43→15:06)
[2016-08-02] MEDS: FAMOTIDINE (20 MG) 20 MG TABLET GT SCH (10:44)
[2016-08-02] MEDS: FERROUS SULFATE UDC 300 MG/5 ML UDC GT SCH (10:44)
[2016-08-02] MEDS: PROSOURCE / PROSTAT (PYXIS) 30 ML UDC GT SCH (10:44)
[2016-08-02] MEDS: PANTOPRAZOLE 40 MG/PACK PACK GT SCH ×2 (10:44→21:11)
[2016-08-02] MEDS: LEVETIRACETAM SOL (5 ML) 100 MG/ML UDC GT SCH ×2 (10:45→21:11)
[2016-08-02] MEDS: ASCORBIC ACID 500 MG TABLET GT SCH (10:45)
[2016-08-02] MEDS: NYSTATIN (PYXIS) 500,000 UNIT/5 ML ORAL.SUSP PO SCH ×3 (10:45→17:34)
[2016-08-02] MEDS: ZINC SULFATE 220 MG CAPSULE GT SCH (10:45)
[2016-08-02] MEDS: VIT B CMPLX 3/FA/VIT C/BIOTIN 1 TAB TABLET GT SCH (10:45)
[2016-08-02] MEDS: VANCOMYCIN HCL 125 MG/2.5 ML ORAL.SUSP PO SCH ×4 (10:46→21:11)
[2016-08-02] MEDS: AMLODIPINE BESYLATE 5 MG TABLET GT SCH ×2 (10:47→21:00)
[2016-08-02] MEDS: LOSARTAN POTASSIUM 50 MG TABLET GT SCH ×2 (10:47→21:00)
[2016-08-02] MEDS: Z GUARD REMEDY 2 OZ OINT TP SCH (10:48)
[2016-08-02] MEDS: DAKINS QUARTER STRENGTH (0.125%) 480 ML BOTTLE TOP SCH ×2 (10:49→17:35)
[2016-08-02] MEDS: prednisoLONE ACETATE 1% SUSP 5 ML BOTTLE LEFTEYE SCH (10:49)
[2016-08-02] MEDS: INSULIN DETEMIR 100 UNIT/ML CARTRIDGE SQ SCH (11:02)
--- NOTE | 2016-08-02 19:30 | NUR ---
RECORDER HELPER GRAVITY PROSPECTING INITIAL NOTES RECEIVED PATIENT OBTUNDED, OPENS EYES, VENT DEPENDENT. NO S/S OF PAIN OR DISCOMFORT. NO RESPIRATORY DISTRESS NOTED, WITH VENT SETTINGS AC 12, VT 500, PEEP 5, FIO2 40%, SPO2 100%. ON TELE MONITOR SINUS RHYTHM 83. TOLERATING GTF. GT PATENT, INTACT, AND IN PLACE. HOB KEPT ELEVATED. ISOLATION PRECAUTIONS OBSERVED. SIDE RAILS UP AND LOCKED. BED KEPT AT LOWEST POSITION. TURNED AND REPOSITIONED. CALL LIGHT KEPT WITHIN EASY REACH. WILL CONTINUE TO MONITOR.
[2016-08-03] VITALS: BP 127/61
[2016-08-03] MEDS: BLOOD SUGAR DIAGNOSTIC 1 EACH STRIP IN SCH ×5 (00:18→23:59)
[2016-08-03] MEDS: INSULIN REGULAR, HUMAN 100 UNIT/ML 3 ML VIAL SQ PRN ×3 (00:19→17:43)
[2016-08-03] MEDS: ACETYLCYSTEINE 10% SOLN 400 MG/4 ML VIAL NEB SCH ×4 (00:27→23:29)
[2016-08-03] MEDS: ALBUTEROL FS 2.5 MG/3 ML VIAL.NEB NEB SCH ×4 (00:30→20:11)
[2016-08-03] MEDS: IPRATROPIUM NEB FS 0.5 MG/2.5 ML AMPUL.NEB NEB SCH ×4 (00:30→20:11)
[2016-08-03 04:00] VITALS: BP 129/69
[2016-08-03] MEDS: RENAL NOVASOURCE 1,000 ML BOTTLE GT PRN (05:32)
[2016-08-03] MEDS: hydrALAZINE HCL 25 MG TABLET GT SCH ×5 (05:32→23:59)
[2016-08-03] MEDS: METRONIDAZOLE 500 MG TABLET GT SCH ×3 (05:32→21:10)
--- NOTE | 2016-08-03 07:11 | NUR ---
SHOE REPAIRER HELPER CLOSING NOTES NO SIGNIFICANT CHANGES OVERNIGHT. NO RESPIRATORY DISTRESS NOTED. TOLERATED VENT SETTINGS. TOLERATED GTF. HAD ONE EPISODE OF SMALL SOFT BM. KEPT CLEAN AND DRY. TURNED AND REPOSITIONED Q2 AND PRN. WOUND TREATMENT DONE ORDERED. TRACH CARE DONE. ISOLATION PRECAUTIONS OBSERVED. SIDE RAILS UP AND LOCKED. BED KEPT AT LOWEST POSITION. CALL LIGHT KEPT WITHIN EASY REACH. WILL ENDORSE CONTINUITY OF CARE TO AM NURSE.
--- NOTE | 2016-08-03 07:30 | NUR ---
RN NOTES RECEIVED PATIENT IN BED OBTUNDED, ON MECH VENT WITH BREATHING NORMAL, EVEN AND UNLABORED. NO SOB NOTED. NO ACUTE DISTRESS NOTED. VENT SETTING REVIEWED AND VERIFIED. TOLERATED WELL. AFEBRILE. TELE MONITOR REVEALS SR, HR=80. IV RFA AND LFA ARE PATENT AND INTACT, NO INFILTRATION NOTED. BOWEL SOUND PRESENT. ON GT FEED NOVASOURCE @ 50CC/HR. TOLERATED WELL. HOB ELEVATED. ASPIRATION PRECAUTION TAKEN. KEPT CLEAN, DRY AND COMFORTABLE. ALL NEEDS ATTENDED. SAFETY MEASURE OBSERVED. CALL LIGHT WITH REACH. WILL CONT TO MONITOR.
[2016-08-03 08:00] VITALS: BP 140/67
[2016-08-03] MEDS: VANCOMYCIN HCL 125 MG/2.5 ML ORAL.SUSP PO SCH ×4 (08:47→21:07)
[2016-08-03] MEDS: PANTOPRAZOLE 40 MG/PACK PACK GT SCH ×2 (08:48→21:11)
[2016-08-03] MEDS: LEVETIRACETAM SOL (5 ML) 100 MG/ML UDC GT SCH ×2 (08:48→21:07)
[2016-08-03] MEDS: NYSTATIN (PYXIS) 500,000 UNIT/5 ML ORAL.SUSP PO SCH ×3 (08:48→17:37)
[2016-08-03] MEDS: ZINC SULFATE 220 MG CAPSULE GT SCH (08:48)
[2016-08-03] MEDS: FERROUS SULFATE UDC 300 MG/5 ML UDC GT SCH (08:48)
[2016-08-03] MEDS: PROSOURCE / PROSTAT (PYXIS) 30 ML UDC GT SCH (08:48)
[2016-08-03] MEDS: AMLODIPINE BESYLATE 5 MG TABLET GT SCH ×2 (08:49→21:11)
[2016-08-03] MEDS: VIT B CMPLX 3/FA/VIT C/BIOTIN 1 TAB TABLET GT SCH (08:49)
[2016-08-03] MEDS: ASCORBIC ACID 500 MG TABLET GT SCH (08:49)
[2016-08-03] MEDS: LOSARTAN POTASSIUM 50 MG TABLET GT SCH ×2 (08:49→21:11)
[2016-08-03] MEDS: Z GUARD REMEDY 2 OZ OINT TP SCH (08:50)
[2016-08-03] MEDS: DAKINS QUARTER STRENGTH (0.125%) 480 ML BOTTLE TOP SCH (08:55)
[2016-08-03] MEDS: prednisoLONE ACETATE 1% SUSP 5 ML BOTTLE LEFTEYE SCH (08:56)
[2016-08-03 08:58] LABS: CALCIUM, SERUM 8.8 mg/dL (8.5-10.1); POTASSIUM 3.9 mmol/L (3.5-5.1)
[2016-08-03] MEDS: INSULIN DETEMIR 100 UNIT/ML CARTRIDGE SQ SCH (08:58)
--- NOTE | 2016-08-03 09:30 | NUR ---
RN NOTES RELAYED ABNORMAL BUN RESULTS TO DR PRECIOUS LLOYD WITH NNO. WILL CONT TO MONITOR.
[2016-08-03] MEDS: HYDROGEL DRESSING 90 GM TUBE TP SCH ×2 (11:43→17:39)
[2016-08-03 12:00] VITALS: BP 142/63
[2016-08-03 16:00] VITALS: BP 126/60
--- NOTE | 2016-08-03 19:11 | NUR ---
RN NOTES PATIENT ENDORSED TO NEXT SHIFT IN STABLE CONDITION WITH BREATHING NORMAL, EVEN AND UNLABORED. NO SOB NOTED. NO ACUTE DISTRESS NOTED. KEPT CLEAN, DRY AND COMFORTABLE. ALL NEEDS ATTENDED. SAFETY MEASURE OBSERVED. CALL LIGHT WITH IN REACH. WILL CONT TO MONITOR.
--- NOTE | 2016-08-03 19:30 | NUR ---
BAKER PIE INITIAL NOTE RECEIVED PT RESTING IN BED. OBTUNDED. ON MECH VENT, TOLERATING WELL AND SATING WELL. TELE-SINUS RHYTHM 80'S. GTUBE FEEDING WEL TOLERATED AND GTUBE SITE CLEAN DRY AND INTACT, FLUSHING WELL WITH NO RESIDUAL. IV SITES CLEAN AND INTACT, FLUSHING WELL. NO S/S OF INFECTION OR INFILTRATION NOTED. ISOLATION PRECAUTIONS OBSERVED. ALL SAFETY MEASURES IN PLACE. WILL CONTINUE TO MONITOR.
[2016-08-03 20:00] VITALS: BP 140/62
--- NOTE | 2016-08-03 20:11 | NUR ---
PT REC'D ON TRACH PORTEX 7 ON VENT SETTINGS CHARTED. TRACH IS SECURE AND IS IN PROPER POSITION. NO RESP DISTRESS NOTED. VENT ALARMS ARE SET AND AUDIBLE. VENT IS PLUGGED IN RED OUTLET AMBU BAG IS BEDSIDE. SX MODERATE THICK YELLOW SECRETIONS. WILL CONTINUE TO MONITOR. Addendum: 08/04/16 at 0438 by VITOR TILLMAN RT Amended: Links added.
[2016-08-04] VITALS: BP 134/57
[2016-08-04] MEDS: INSULIN REGULAR, HUMAN 100 UNIT/ML 3 ML VIAL SQ PRN ×4 (00:14→17:12)
[2016-08-04] MEDS: IPRATROPIUM NEB FS 0.5 MG/2.5 ML AMPUL.NEB NEB SCH ×4 (01:30→20:11)
[2016-08-04] MEDS: ALBUTEROL FS 2.5 MG/3 ML VIAL.NEB NEB SCH ×4 (01:30→20:11)
[2016-08-04 04:00] VITALS: BP 121/55
[2016-08-04] MEDS: BLOOD SUGAR DIAGNOSTIC 1 EACH STRIP IN SCH ×3 (05:38→17:16)
[2016-08-04] MEDS: hydrALAZINE HCL 25 MG TABLET GT SCH ×3 (05:38→17:13)
[2016-08-04] MEDS: METRONIDAZOLE 500 MG TABLET GT SCH ×3 (05:38→21:33)
[2016-08-04] MEDS: RENAL NOVASOURCE 1,000 ML BOTTLE GT PRN (05:48)
--- NOTE | 2016-08-04 06:30 | NUR ---
NEGATIVE RESTORER CLOSING NOTE PT REMAINED STABLE DURING SHIFT. ON MECH VENT AND WELL TOLERATED, SATING WELL. GTUBE CLEAN AND INTACT, FEEDING WELL TOLERATED. ALL SAFETY MEASURES IN PLACE. ISOLATION PRECAUTIONS OBSERVED. WILL ENDORSE TO NEXT SHIFT FOR SHERRY.
[2016-08-04] MEDS: ACETYLCYSTEINE 10% SOLN 400 MG/4 ML VIAL NEB SCH ×3 (07:21→23:26)
[2016-08-04 07:33] LABS: BASOPHILS % (AUTO) 0.4 % (0.0-2.0); EOSINOPHILS # (AUTO) 0.2 /CMM (0.0-0.7); EOSINOPHILS % (AUTO) 2.9 % (0.0-6.0); HEMATOCRIT 24 % (33-45); HEMOGLOBIN 7.9 g/dL (11.5-14.8); LYMPHOCYTES # (AUTO) 1.2 /CMM (0.8-4.8); LYMPHOCYTES % (AUTO) 15.5 % (20.0-44.0); MEAN CORPUSCULAR HEMOGLOBIN 30 PG (26.0-33.0); MEAN CORPUSCULAR HGB CONC 33 g/dl (31.0-36.0); MEAN CORPUSCULAR VOLUME 91 fL (82-100); MONOCYTES # (AUTO) 0.5 /CMM (0.1-1.30); MONOCYTES % (AUTO) 6.8 % (2.0-12.0); NEUTROPHILS # (AUTO) 5.7 /CMM (1.8-8.9); NEUTROPHILS % (AUTO) 74.4 % (43.0-81.0); PLATELET COUNT (AUTO) 278 /CMM (150-450); RDW COEFFICIENT OF VARIATION 14.6 (11.5-15.0); RED BLOOD CELL COUNT(AUTO) 2.65 MIL/uL (4.0-5.2); WHITE BLOOD COUNT (AUTO) 7.6 K/uL (4.3-11.0)
[2016-08-04 08:00] VITALS: BP 134/69
[2016-08-04] MEDS: LEVETIRACETAM SOL (5 ML) 100 MG/ML UDC GT SCH ×2 (08:00→21:31)
[2016-08-04] MEDS: FERROUS SULFATE UDC 300 MG/5 ML UDC GT SCH (08:00)
[2016-08-04] MEDS: VIT B CMPLX 3/FA/VIT C/BIOTIN 1 TAB TABLET GT SCH (08:00)
[2016-08-04] MEDS: PROSOURCE / PROSTAT (PYXIS) 30 ML UDC GT SCH (08:00)
[2016-08-04] MEDS: ZINC SULFATE 220 MG CAPSULE GT SCH (08:00)
[2016-08-04] MEDS: NYSTATIN (PYXIS) 500,000 UNIT/5 ML ORAL.SUSP PO SCH ×3 (08:00→17:13)
[2016-08-04] MEDS: FAMOTIDINE (20 MG) 20 MG TABLET GT SCH (08:00)
[2016-08-04] MEDS: ASCORBIC ACID 500 MG TABLET GT SCH (08:00)
--- NOTE | 2016-08-04 08:00 | NUR ---
RN NOTE RECEIVED PT ON BED , OBTUNDED.VENT DEPENDENT , TOLERATING CURRENT SETTING WELL, ON TELE SR TOLERATING G TUBE FEEDING WELL , NO RESIDUAL NOTED, R AND L FOOD IV SITES CLEAN AND INTACT, FLUSHING WELL. NO S/S OF INFECTION OR INFILTRATION NOTED. ISOLATION PRECAUTIONS OBSERVED.SR UP x3, ALL SAFETY MEASURES IN PLACE. WILL CONTINUE TO MONITOR PT CLOSELY AND NOTIFY MD FOR ANY SIGNIFICANT CHANGES.
[2016-08-04] MEDS: LOSARTAN POTASSIUM 50 MG TABLET GT SCH ×2 (08:01→21:34)
[2016-08-04] MEDS: PANTOPRAZOLE 40 MG/PACK PACK GT SCH ×2 (08:01→21:31)
[2016-08-04] MEDS: AMLODIPINE BESYLATE 5 MG TABLET GT SCH ×2 (08:01→21:34)
[2016-08-04] MEDS: VANCOMYCIN HCL 125 MG/2.5 ML ORAL.SUSP PO SCH ×4 (08:03→21:30)
[2016-08-04] MEDS: INSULIN DETEMIR 100 UNIT/ML CARTRIDGE SQ SCH (08:04)
[2016-08-04 08:06] LABS: CREATININE 5.8 mg/dL (0.6-1.3); MAGNESIUM 2.1 mg/dL (1.8-2.4); PHOSPHORUS 3.3 mg/dL (2.5-4.9); POTASSIUM 4.1 mmol/L (3.5-5.1)
[2016-08-04] MEDS: Z GUARD REMEDY 2 OZ OINT TP SCH (08:07)
[2016-08-04] MEDS: HYDROGEL DRESSING 90 GM TUBE TP SCH ×2 (08:07→17:15)
[2016-08-04] MEDS: prednisoLONE ACETATE 1% SUSP 5 ML BOTTLE LEFTEYE SCH (08:07)
[2016-08-04 12:00] VITALS: BP_SYST 128; BP_SYST 131; BP_DIAS 57; BP_DIAS 58
[2016-08-04 16:00] VITALS: BP_SYST 129; BP_SYST 131; BP_DIAS 53; BP_DIAS 55
--- NOTE | 2016-08-04 18:00 | NUR ---
RN NOTES TRACH CARE DONE, TELEPHONE CONSENT OBTAINED FOR HD CATH PLACEMENT FROM PT'S DAUGHTER , PT STABLE , NO SIGNIFICANT CHANGES NOTED ON THIS SHIFT.
--- NOTE | 2016-08-04 18:57 | NUR ---
RN NOTES DR ZUÑIGA AT THE BEDSIDE INSERTING HD CATH . PT STABLE.
--- NOTE | 2016-08-04 19:30 | NUR ---
PEARL RESTORER INITIAL NOTE PT RECEIVED IN BED. OBTUNDED, NON VERBAL. ON MECH VENT WELL TOLERATED AND SATING WELL. TELE -SINUS RHYTHM 80'S. IV SITE R AND L FOOT INTACT AND FLUSHING WELL, NO S/S OF INFECTION NOTED. GTUBE FEEDING WELL TOLERATED WITH 10ML RESIDUAL. GTUBE FLUSHING WELL AND PATENT. HD CATH NOT INSERTED WITH 2 ATTEMPTS ON L FEMORAL AND L CHEST WALL. MONITOR FOR BLEEDING. ALL SAFETY MEASURES IN PLACE. WILL CONTINUE TO MONITOR.
[2016-08-04 20:00] VITALS: BP 131/60
--- NOTE | 2016-08-04 20:00 | NUR ---
YIELD ANALYST NOTE SPOKE WITH DR PEDRAZA. ORDERED NPO AT MIDNIGHT TONIGHT FOR HD CATH INSERTION TOMORROW AT 1530. CONSENTS DONE. ORDERS NOTED AND CARRIED OUT.
[2016-08-04] MEDS: SCOPOLAMINE HBR 1 EA PATCH.TD72 TD SCH (21:33)
[2016-08-05] VITALS (8 sets, daily range): BP systolic 120–138; BP diastolic 41–68
[2016-08-05] MEDS: BLOOD SUGAR DIAGNOSTIC 1 EACH STRIP IN SCH ×4 (00:01→17:49)
[2016-08-05] MEDS: INSULIN REGULAR, HUMAN 100 UNIT/ML 3 ML VIAL SQ PRN ×3 (00:20→17:50)
[2016-08-05] MEDS: IPRATROPIUM NEB FS 0.5 MG/2.5 ML AMPUL.NEB NEB SCH ×4 (01:50→20:55)
[2016-08-05] MEDS: ALBUTEROL FS 2.5 MG/3 ML VIAL.NEB NEB SCH ×4 (01:50→20:55)
[2016-08-05] MEDS: hydrALAZINE HCL 25 MG TABLET GT SCH ×4 (05:04→17:29)
[2016-08-05] MEDS: METRONIDAZOLE 500 MG TABLET GT SCH ×3 (05:04→21:41)
--- NOTE | 2016-08-05 05:21 | NUR ---
RN NOTES PATIENT SCHEDULED FOR VASCULAR SURGERY/HD CATH PLACEMENT BY DR. PEDRAZA IN AM. ATTEMPTED TO CALL AND OBTAIN CONSENT FOR ANESTHESIA FROM PATIENT'S DAUGHTER, SHAILESH SEGURA; HOWEVER NO ANSWER AT THIS TIME, LEFT A VOICE MESSAGE.
--- NOTE | 2016-08-05 06:30 | NUR ---
INFECTIOUS WASTE TECHNICIAN CLOSING NOTE PT REMAINED IN STABLE CONDITION DURING SHIFT. ON MECH VENT AND WELL TOLERATED. GTUBE FLUSHING WELL AND NO RESIDUAL. PT NPO SINCE MIDNIGHT D/T HD CATH INSERTION TODAY. IV SITES INTACT, FLUSHING WELL AND PATENT. WILL ENDORSE TO NEXT SHIFT FOR SHERRY.
--- NOTE | 2016-08-05 07:05 | NUR ---
RN INITIAL NOTES RECEIVED PT OBTUNDED. ON [facility] VENT WITH FF SETTINGS: AC12, TV500, FI02 40%, PEEP +5. PORTEX#7. NO RESPIRATORY DISTRESS NOTED. NO SOB NOTED. NO SIGNS OF PAIN NOTED. GT IN PLACE, CLAMPED. PT NPO FOR HD CATH INSERTION TODAY. IV LINES ON RIGHT FOOT G#22 AND LEFT FOOT G#[address] CLEAN AND DRY. BLE ELEVATED. PT COMFORTABLE. WILL CONTINUE TO MONITOR.
[2016-08-05] MEDS: ACETYLCYSTEINE 10% SOLN 400 MG/4 ML VIAL NEB SCH ×3 (07:15→23:38)
[2016-08-05 07:35] LABS: INR 1.02 (0.87-1.13); PROTHROMBIN TIME 10.9 SECS (9.5-12.7)
[2016-08-05 07:47] LABS: CALCIUM, SERUM 8.7 mg/dL (8.5-10.1); CREATININE 6.9 mg/dL (0.6-1.3); POTASSIUM 4.1 mmol/L (3.5-5.1)
[2016-08-05] MEDS: prednisoLONE ACETATE 1% SUSP 5 ML BOTTLE LEFTEYE SCH (08:14)
[2016-08-05] MEDS: NYSTATIN (PYXIS) 500,000 UNIT/5 ML ORAL.SUSP PO SCH ×3 (08:14→17:28)
[2016-08-05] MEDS: LEVETIRACETAM SOL (5 ML) 100 MG/ML UDC GT SCH ×2 (08:14→21:40)
[2016-08-05] MEDS: AMLODIPINE BESYLATE 5 MG TABLET GT SCH ×2 (08:15→21:00)
[2016-08-05] MEDS: LOSARTAN POTASSIUM 50 MG TABLET GT SCH ×2 (08:15→21:00)
[2016-08-05] MEDS: ASCORBIC ACID 500 MG TABLET GT SCH (08:16)
[2016-08-05] MEDS: PANTOPRAZOLE 40 MG/PACK PACK GT SCH ×2 (08:16→21:40)
[2016-08-05] MEDS: VIT B CMPLX 3/FA/VIT C/BIOTIN 1 TAB TABLET GT SCH (08:16)
[2016-08-05] MEDS: ZINC SULFATE 220 MG CAPSULE GT SCH (08:16)
[2016-08-05] MEDS: FERROUS SULFATE UDC 300 MG/5 ML UDC GT SCH (08:16)
[2016-08-05] MEDS: PROSOURCE / PROSTAT (PYXIS) 30 ML UDC GT SCH (08:16)
[2016-08-05] MEDS: INSULIN DETEMIR 100 UNIT/ML CARTRIDGE SQ SCH (08:17)
[2016-08-05] MEDS: VANCOMYCIN HCL 125 MG/2.5 ML ORAL.SUSP PO SCH ×4 (08:17→21:42)
[2016-08-05] MEDS: Z GUARD REMEDY 2 OZ OINT TP SCH (08:18)
[2016-08-05] MEDS: HYDROGEL DRESSING 90 GM TUBE TP SCH ×2 (08:18→17:29)
--- NOTE | 2016-08-05 08:30 | NUR ---
RN NOTES 0900 MEDS HELD. PT IS ON NPO FOR HD CATH INSERTION. NIMESH HELD, PT HAS AN ORDER TO HOLD MEDS IF BP <130. PT BP 127/41. WILL CONTINUE TO MONITOR.
--- NOTE | 2016-08-05 08:45 | NUR ---
RN NOTES SEEN AND EXAMINED BY DR. SANTIAGO. AWARE OF CURRENT BMP RESULT. BUN 142, CREA 6.9. FOR HD CATH INSERTION TODAY. PER MD, NO NEED FOR CBC TODAY. NO ORDER MADE.
--- NOTE | 2016-08-05 08:56 | NUR ---
RT PT RECEIVED TRACHED ON THE VENT WITH NOTED SETTINGS. PT IS AWAKE BUT DOES NOT FOLLOW COMMANDS. VENT ALARMS ARE SET AND AUDIBLE WITH BVM BY BEDSIDE. RECREATIONAL PROGRAMS DIRECTOR CUFF PRESSURE NOTED. VENT IS PLUGGED INTO RED OUTLET. SX SMALL MODERATE THICK SECRETIONS. NO RESPIRATORY DISTRESS NOTED AT THIS TIME, WILL CONTINUE TO MONITOR. Addendum: 08/05/16 at 0858 by TITO WADDELL RT Amended: Links added.
--- NOTE | 2016-08-05 09:45 | NUR ---
RN NOTES SEEN AND EXAMINED BY DR. ALMAZAN. AWARE OF CURRENT LAB RESULT. STILL ON CONTACT ISOLATION FOR CDIFF. STILL WITH LOOSE STOOL. ON ATB. NO ASE NOTED. NNO.
[2016-08-05 11:11] LABS: BASOPHILS % (AUTO) 0.2 % (0.0-2.0); EOSINOPHILS # (AUTO) 0.2 /CMM (0.0-0.7); EOSINOPHILS % (AUTO) 2.7 % (0.0-6.0); HEMATOCRIT 22 % (33-45); LYMPHOCYTES % (AUTO) 12.3 % (20.0-44.0); MEAN CORPUSCULAR HEMOGLOBIN 30 PG (26.0-33.0); MEAN CORPUSCULAR HGB CONC 33 g/dl (31.0-36.0); MEAN CORPUSCULAR VOLUME 91 fL (82-100); MONOCYTES # (AUTO) 0.6 /CMM (0.1-1.30); MONOCYTES % (AUTO) 7.2 % (2.0-12.0); NEUTROPHILS # (AUTO) 6.5 /CMM (1.8-8.9); NEUTROPHILS % (AUTO) 77.6 % (43.0-81.0); PLATELET COUNT (AUTO) 278 /CMM (150-450); RDW COEFFICIENT OF VARIATION 14.6 (11.5-15.0); RED BLOOD CELL COUNT(AUTO) 2.36 MIL/uL (4.0-5.2); WHITE BLOOD COUNT (AUTO) 8.4 K/uL (4.3-11.0)
--- NOTE | 2016-08-05 11:45 | NUR ---
RN NOTES [address] SANTIAGO CBC RESULT. AWARE OF HGB 7.0, HCT 22, PLATELET 278. NO SIGNS OF ACTIVE BLEEDING NOTED. AWAITING FOR CALL BACK. 1141 DR. SANTIAGO CALLED BACK. NO ORDER MADE.
[2016-08-05] MEDS ORDERED: HEPARIN SODIUM, PORCINE 1,000 UNIT/ML VIAL ONE (13:13)
[2016-08-05] MEDS ORDERED: LIDOCAINE HCL/PF 1% 30 ML SDV ONE (13:13)
[2016-08-05] MEDS ORDERED: FENTANYL PF 100MCG/2ML AMPUL ONE (15:42)
--- NOTE | 2016-08-05 15:59 | NUR ---
RN NOTES PT LEFT FOR HD CATH INSERTION. NO RESPIRATORY DISTRESS NOTED. NO SOB NOTED. LEFT IN STABLE CONDITION.
[2016-08-05] MEDS ORDERED: IOHEXOL 240MG/ML 50 ML IV ONE (16:32)
[2016-08-05] MEDS ORDERED: ANESTHESIA TRAY IN PYXIS 1 EA TRAY MC ONE (17:22)
[2016-08-05] MEDS: RENAL NOVASOURCE 1,000 ML BOTTLE GT PRN (17:30)
--- NOTE | 2016-08-05 17:30 | NUR ---
RN NOTES PT BACK FROM OR. SP HD CATH INSERTION, RIGHT FEMORAL. PLACED COMFORTABLY BACK TO BED. NO RESPIRATORY DISTRESS NOTED. NO SOB NOTED. NO SIGNS OF PAIN NOTED. DR. PEDRAZA TRIED TO INSERT HD CATH LINE ON RIGHT CHEST WALL. WILL DO STAT CXR TO R/O PNEUMOTHORAX. WILL RESUME ALL ORDERS. WILL CONTINUE TO MONITOR.
--- NOTE | 2016-08-05 18:41 | NUR ---
RN CLOSING NOTES PT STABLE. NO RESPIRATORY DISTRESS NOTED. NO SOB NOTED. KEPT HOB ELEVATED. TOLERATING VENT WELL. KEPT HOB ELEVATED. GT IN PLACE. GTF RESTARTED. NO RESIDUAL NOTED. IV LINES IN PLACE. SP RIGHT FEMORAL CATH PLACEMENT. DRESSING INTACT. KEPT CLEAN AND DRY. REPOSITIONED Q2. TX PROVIDED ORDERED. KEPT COMFORTABLE. WILL ENDORSE FOR CONTINUITY OF CARE
--- NOTE | 2016-08-05 19:30 | NUR ---
TEAM ASSEMBLY LINE MACHINE OPERATOR INITIAL NOTE PT RECEIVED IN BED. PT OBTUNDED. MECH VENT WELL TOLERATED AND SATING WELL. STABLE CONDITION WITHOUT ANY ACUTE DISTRESS NOTED AT THIS TIME. TELE SINUS RHYTHM 80'S. GTUBE SITE INTACT AND FLUSHING WELL. GTUBE FEEDING WELL TOLERATED WITH NO RESIDUAL NOTED. HD CATH INSERTED AT 1730 IN R FEMORAL. SITE CLEAN AND INTACT. NO C/O PAIN. RECEIVING DIALYSIS AT BEDSIDE NOW AND TOLERATING WELL. IV R AND L FOOT INTACT, FLUSHING WELL AND PATENT. ALL SAFETY MEASURES IN PLACE. WILL CONTINUE TO MONITOR.
--- NOTE | 2016-08-05 21:52 | NUR ---
PT RECEIVED TRACHED WITH PTX 7 ON VENT. PT TOLERATING VENT SETTINGS. SX'D AND LAVAGED FOR MOD AMT OF THICK PALE SECRETIONS. VENT ALARMS SET AND AUDIBLE. AMBU BAG AT BEDSIDE. VENT PLUGGED INTO RED OUTLET. WILL CONTINUE TO MONITOR. Addendum: 08/05/16 at 2152 by BRENT STOVER RT Amended: Links added.
[2016-08-06] VITALS (7 sets, daily range): BP systolic 127–140; BP diastolic 46–87
[2016-08-06] MEDS: BLOOD SUGAR DIAGNOSTIC 1 EACH STRIP IN SCH ×4 (00:21→17:57)
[2016-08-06] MEDS: hydrALAZINE HCL 25 MG TABLET GT SCH ×4 (00:21→18:08)
[2016-08-06] MEDS: INSULIN REGULAR, HUMAN 100 UNIT/ML 3 ML VIAL SQ PRN ×4 (00:29→17:59)
[2016-08-06] MEDS: ALBUTEROL FS 2.5 MG/3 ML VIAL.NEB NEB SCH ×4 (01:42→19:45)
[2016-08-06] MEDS: IPRATROPIUM NEB FS 0.5 MG/2.5 ML AMPUL.NEB NEB SCH ×4 (01:42→19:45)
[2016-08-06] MEDS: METRONIDAZOLE 500 MG TABLET GT SCH ×3 (05:14→21:26)
--- NOTE | 2016-08-06 06:30 | NUR ---
CARGO CHECKER CLOSING NOTE PT REMAINED STABLE DURING SHIFT. ON [facility] VENT, WELL TOLERATED AND SATING WELL. NO ACUTE DISTRESS NOTED. IV SITES FLUSHING WELL AND INTACT. GTUBE INTACT AND FEEDING WELL TOLERATED WITH NO RESIDUAL. ALL SAFETY MEASURES IN PLACE. WILL ENDORSE TO NEXT SHIFT FOR SHERRY.
[2016-08-06] MEDS: ACETYLCYSTEINE 10% SOLN 400 MG/4 ML VIAL NEB SCH ×3 (07:24→23:27)
--- NOTE | 2016-08-06 07:25 | NUR ---
RN INITIAL NOTES: Received patient on bed during rounds, asleep but easily arousable, obtunded,not able to make needs known, needs anticipated and attended. With right foot G22 and left foot G20 flushed with NS and patent. With Vent and trach setting are the following AC 12 TV 500 FIO2 40% Peep5 saturating well at 99-100%. NPO maintained. With Gtube in placed, no residual noted, checked for patency, Novasource at 50cc/hr tolerating well. NO SOB, No LOC, respirations are even and unlabored, no acute distress noted. Kept clean and dry. Provided safety and comfort measures. Bed low and locked position, fall precaution observed. Will turn and reposition, offload heels as per protocol. Suction secretions PRN. To continue to monitor accordingly.
[2016-08-06 07:58] LABS: CALCIUM, SERUM 8.4 mg/dL (8.5-10.1); CREATININE 4.7 mg/dL (0.6-1.3); POTASSIUM 3.8 mmol/L (3.5-5.1)
[2016-08-06] MEDS: LOSARTAN POTASSIUM 50 MG TABLET GT SCH ×2 (08:36→21:26)
[2016-08-06] MEDS: AMLODIPINE BESYLATE 5 MG TABLET GT SCH ×2 (08:37→21:28)
[2016-08-06] MEDS: LEVETIRACETAM SOL (5 ML) 100 MG/ML UDC GT SCH ×2 (08:37→21:36)
[2016-08-06] MEDS: FERROUS SULFATE UDC 300 MG/5 ML UDC GT SCH (08:37)
[2016-08-06] MEDS: VIT B CMPLX 3/FA/VIT C/BIOTIN 1 TAB TABLET GT SCH (08:37)
[2016-08-06] MEDS: ZINC SULFATE 220 MG CAPSULE GT SCH (08:38)
[2016-08-06] MEDS: NYSTATIN (PYXIS) 500,000 UNIT/5 ML ORAL.SUSP PO SCH ×3 (08:38→18:00)
[2016-08-06] MEDS: PROSOURCE / PROSTAT (PYXIS) 30 ML UDC GT SCH (08:38)
[2016-08-06] MEDS: FAMOTIDINE (20 MG) 20 MG TABLET GT SCH (08:38)
[2016-08-06] MEDS: ASCORBIC ACID 500 MG TABLET GT SCH (08:38)
[2016-08-06] MEDS: PANTOPRAZOLE 40 MG/PACK PACK GT SCH ×2 (08:38→21:26)
[2016-08-06] MEDS: INSULIN DETEMIR 100 UNIT/ML CARTRIDGE SQ SCH (08:39)
[2016-08-06] MEDS: Z GUARD REMEDY 2 OZ OINT TP SCH (08:43)
[2016-08-06] MEDS: VANCOMYCIN HCL 125 MG/2.5 ML ORAL.SUSP PO SCH ×4 (08:43→21:28)
[2016-08-06] MEDS: HYDROGEL DRESSING 90 GM TUBE TP SCH ×2 (08:43→17:58)
[2016-08-06] MEDS: prednisoLONE ACETATE 1% SUSP 5 ML BOTTLE LEFTEYE SCH (08:43)
[2016-08-06] MEDS ORDERED: VANCOMYCIN 500 MG in IV D5W 100 ML IV ONE (15:00)
--- NOTE | 2016-08-06 17:20 | NUR ---
RN NOTES: As confirmed with Pharmacist Leticia to give 1 gm Vancomycin post HD, Vancomycin level 7, she noted to give Vancomycin 1gm medication.
[2016-08-06] MEDS: RENAL NOVASOURCE 1,000 ML BOTTLE GT PRN (18:08)
--- NOTE | 2016-08-06 18:42 | NUR ---
RN NOTES: Patient remained stable within shift, no signs and symptoms of distress noted. HD done and 1500cc out, tolerating well. Kept clean and dry. Provided safety and comfort measure. Aspiration precaution observed. Noted diarrhea x2, wound care done. To endorsed to next shift for continuity of care.
[2016-08-06] MEDS ORDERED: VANCOMYCIN 1 GM in IV D5W 250 ML IV ONE (19:00)
[2016-08-07] VITALS: BP 139/70
[2016-08-07] MEDS: hydrALAZINE HCL 25 MG TABLET GT SCH ×4 (00:15→17:01)
[2016-08-07] MEDS: BLOOD SUGAR DIAGNOSTIC 1 EACH STRIP IN SCH ×4 (00:21→17:03)
[2016-08-07] MEDS: INSULIN REGULAR, HUMAN 100 UNIT/ML 3 ML VIAL SQ PRN ×4 (00:23→17:04)
[2016-08-07] MEDS: ALBUTEROL FS 2.5 MG/3 ML VIAL.NEB NEB SCH ×4 (01:11→19:47)
[2016-08-07] MEDS: IPRATROPIUM NEB FS 0.5 MG/2.5 ML AMPUL.NEB NEB SCH ×4 (01:11→19:47)
[2016-08-07 04:00] VITALS: BP 138/63
[2016-08-07] MEDS: METRONIDAZOLE 500 MG TABLET GT SCH ×3 (05:07→21:11)
--- NOTE | 2016-08-07 06:51 | NUR ---
RN- ALL NEEDS ATTENDED AND MET. NO S/SX OF ACUTE DISTRESS. WILL ENDORSE TO AM SHIFT FOR CONTINUATION OF CARE.
--- NOTE | 2016-08-07 06:56 | NUR ---
RN- HD NURSE AT BEDSIDE FOR DIALYSIS.
[2016-08-07 07:17] LABS: CALCIUM, SERUM 8.7 mg/dL (8.5-10.1); CREATININE 4.2 mg/dL (0.6-1.3); POTASSIUM 4.5 mmol/L (3.5-5.1)
--- NOTE | 2016-08-07 07:20 | NUR ---
RN INITIAL NOTES: Rec'd pt on bed, HOB elevated, obtunded, not in any distress. On MV via trache w/ ff settings: Portex 7, AC 12, TV 500, FiO2 40%, PEEP 5, saturating at 100%. On telemonitor, ST w/ HR 104. Pt on cont GT feeding, Novasource at 50 cc/hr, patent & intact. Has R ft G22 & L ft G20, SL, flushed, patent, C/D/I, no signs of infection of infiltration noted. HD done w/ 1L output, tolerated well. Isolation prec observed. Bed kept low & in locked pos. Will turn & reposition, offload heels as per protocol. Will continue to monitor.
[2016-08-07] MEDS: ACETYLCYSTEINE 10% SOLN 400 MG/4 ML VIAL NEB SCH ×3 (07:51→23:35)
[2016-08-07 08:00] VITALS: BP 139/46
[2016-08-07] MEDS: PROSOURCE / PROSTAT (PYXIS) 30 ML UDC GT SCH (08:24)
[2016-08-07] MEDS: LEVETIRACETAM SOL (5 ML) 100 MG/ML UDC GT SCH ×2 (08:24→21:10)
[2016-08-07] MEDS: PANTOPRAZOLE 40 MG/PACK PACK GT SCH ×2 (08:25→21:10)
[2016-08-07] MEDS: VIT B CMPLX 3/FA/VIT C/BIOTIN 1 TAB TABLET GT SCH (08:25)
[2016-08-07] MEDS: ASCORBIC ACID 500 MG TABLET GT SCH (08:25)
[2016-08-07] MEDS: NYSTATIN (PYXIS) 500,000 UNIT/5 ML ORAL.SUSP PO SCH ×3 (08:25→16:59)
[2016-08-07] MEDS: VANCOMYCIN HCL 125 MG/2.5 ML ORAL.SUSP PO SCH ×4 (08:25→21:10)
[2016-08-07] MEDS: ZINC SULFATE 220 MG CAPSULE GT SCH (08:25)
[2016-08-07] MEDS: FERROUS SULFATE UDC 300 MG/5 ML UDC GT SCH (08:25)
[2016-08-07] MEDS: HYDROGEL DRESSING 90 GM TUBE TP SCH ×2 (08:26→17:01)
[2016-08-07] MEDS: prednisoLONE ACETATE 1% SUSP 5 ML BOTTLE LEFTEYE SCH (08:26)
[2016-08-07] MEDS: Z GUARD REMEDY 2 OZ OINT TP SCH (08:26)
[2016-08-07] MEDS: LOSARTAN POTASSIUM 50 MG TABLET GT SCH ×2 (08:27→21:00)
[2016-08-07] MEDS: AMLODIPINE BESYLATE 5 MG TABLET GT SCH ×2 (08:28→21:00)
[2016-08-07] MEDS: INSULIN DETEMIR 100 UNIT/ML CARTRIDGE SQ SCH (09:18)
--- NOTE | 2016-08-07 10:00 | NUR ---
RN NOTES: Verified w/ Pharmacy c/o Sena re: Vancomycin IV, she said HOLD Vancomycin 500 mg IV. Pt's Vanco Trough level 23.
--- NOTE | 2016-08-07 11:43 | NUR ---
RN NOTES: Dr. Ferrari made aware of Hgb level 7.0, hct 22 08/05/16 and noted to review.
[2016-08-07 12:00] VITALS: BP 132/75
[2016-08-07 16:00] VITALS: BP 129/71
[2016-08-07] MEDS: RENAL NOVASOURCE 1,000 ML BOTTLE GT PRN (17:01)
--- NOTE | 2016-08-07 18:45 | NUR ---
RN CLOSING NOTES: No acute changes noted w/in shift. Kept HOB elevated. Pt not in any distress. MV settings tolerated well, saturating at 100%. Suctioned secretions. Pt tolerated GT feeding, Novasource at 50 cc/hr, residual checked. Pt's R ft G22 & L ft G20, SL, patent, C/D/I, no signs of infection of infiltration noted. Isolation prec observed. Wound care done. Turned & repositioned, offload heels as per protocol. Bed kept low & in locked pos. Will endorse to PM RN for SHERRY.
--- NOTE | 2016-08-07 19:55 | NUR ---
RN NOTES RECEIVED PT RESTING ON BED. NO ACUTE RESP DISTRESS. WITH TRACH CONNECTED TO VENT SETTING OF AC 12 TV 500 FIO2 40% PEEP 5 TELE MONITOR REVEALS SR HR 95 SATING WELL 100% ON GTF NOVASOURCE @ 50 CC/HR INTACT PATENCY CHECKED. NO RESIDUAL SHOWN. IV SITE ON RIGHT FOOT G 22 AND LEFT FOOT G 20 INTACT AND PATENT HD SITE REMAINED CLEANED WITH DRESSING. OFFLOADED EXT WITH PILLOWS. REDUCED PRESSURE TO BONY PROMINENCE AREA. WILL CONTINUE TO MONITOR.
[2016-08-07 20:00] VITALS: BP 123/67
[2016-08-07] MEDS: SCOPOLAMINE HBR 1 EA PATCH.TD72 TD SCH (21:10)
[2016-08-08] VITALS (10 sets, daily range): BP systolic 93–160; BP diastolic 47–82
[2016-08-08] MEDS: INSULIN REGULAR, HUMAN 100 UNIT/ML 3 ML VIAL SQ PRN ×2 (00:08→12:35)
[2016-08-08] MEDS: BLOOD SUGAR DIAGNOSTIC 1 EACH STRIP IN SCH ×5 (00:09→23:49)
[2016-08-08] MEDS: IPRATROPIUM NEB FS 0.5 MG/2.5 ML AMPUL.NEB NEB SCH ×4 (00:47→19:18)
[2016-08-08] MEDS: ALBUTEROL FS 2.5 MG/3 ML VIAL.NEB NEB SCH ×4 (00:47→19:18)
[2016-08-08] MEDS: METRONIDAZOLE 500 MG TABLET GT SCH ×3 (05:42→23:48)
[2016-08-08] MEDS: hydrALAZINE HCL 25 MG TABLET GT SCH ×4 (05:46→17:35)
--- NOTE | 2016-08-08 06:41 | NUR ---
RN NOTES PT REMAINED IN STABLE CONDITION. TRACH AND VENT TOLERATED WELL. RESP EVEN AND UNLABORED. MAINTAINED VS WNL. AFEBRILE. GTF TOLERATED WELL RESTART FEEDING AT 6AM ORDERED. ALL DUE MEDICINE TOLERATED WELL WITHOUT N/V/D. WOUND DRESSING CHANGES KEPT PT CLEAN AND COMFORTABLE IN BED. SUCTIONED FREQ DUE TO EXCESSIVE SECRETION WITH WHITISH THICK SECRETION. WILL CONTINUE TO MONITOR.
--- NOTE | 2016-08-08 07:15 | NUR ---
TELE/RN: PT RECEIVED IN BED, ON VENT, WITH MODERATE AMOUNT OF ORAL SECRETIONS. AIRWAY CLEARED, TOLERATED WELL. PT RESPONDS TO PAIN, GAG AND COUGH REFLEX PRESENT, UNABLE TO FOLLOW COMMANDS. IV HL ON R AND L FOOT #22 FLUSHED AND PATENT. TOLERATING GTF FEEDINGS, NO RESIDUAL NOTED. SAFETY MEASURES IN PLACE, ALARM SOUNDS AUDIBLE, WILL CONT TO MONITOR PT
[2016-08-08 07:16] LABS: BASOPHILS % (AUTO) 0.1 % (0.0-2.0); EOSINOPHILS # (AUTO) 0.2 /CMM (0.0-0.7); EOSINOPHILS % (AUTO) 2.5 % (0.0-6.0); LYMPHOCYTES # (AUTO) 1.1 /CMM (0.8-4.8); LYMPHOCYTES % (AUTO) 12.9 % (20.0-44.0); MEAN CORPUSCULAR HEMOGLOBIN 30 PG (26.0-33.0); MEAN CORPUSCULAR HGB CONC 33 g/dl (31.0-36.0); MEAN CORPUSCULAR VOLUME 91 fL (82-100); MONOCYTES # (AUTO) 0.6 /CMM (0.1-1.30); MONOCYTES % (AUTO) 6.8 % (2.0-12.0); NEUTROPHILS # (AUTO) 6.5 /CMM (1.8-8.9); NEUTROPHILS % (AUTO) 77.7 % (43.0-81.0); PLATELET COUNT (AUTO) 276 /CMM (150-450); RDW COEFFICIENT OF VARIATION 15.2 (11.5-15.0); WHITE BLOOD COUNT (AUTO) 8.4 K/uL (4.3-11.0)
[2016-08-08] MEDS: ACETYLCYSTEINE 10% SOLN 400 MG/4 ML VIAL NEB SCH ×3 (07:26→23:52)
[2016-08-08 07:30] LABS: CALCIUM, SERUM 8.4 mg/dL (8.5-10.1); CREATININE 4.1 mg/dL (0.6-1.3); MAGNESIUM 1.9 mg/dL (1.8-2.4); PHOSPHORUS 2.6 mg/dL (2.5-4.9); POTASSIUM 4.3 mmol/L (3.5-5.1)
[2016-08-08 07:38] LABS: RED BLOOD CELL COUNT(AUTO) 1.95 MIL/uL (4.0-5.2)
[2016-08-08 07:39] LABS: HEMOGLOBIN 5.9 g/dL (11.5-14.8)
[2016-08-08 07:40] LABS: HEMATOCRIT 18 % (33-45)
[2016-08-08] MEDS: HYDROGEL DRESSING 90 GM TUBE TP SCH ×2 (08:07→16:29)
[2016-08-08] MEDS: LEVETIRACETAM SOL (5 ML) 100 MG/ML UDC GT SCH ×2 (08:08→23:47)
[2016-08-08] MEDS: VANCOMYCIN HCL 125 MG/2.5 ML ORAL.SUSP PO SCH ×4 (08:08→23:49)
[2016-08-08] MEDS: VIT B CMPLX 3/FA/VIT C/BIOTIN 1 TAB TABLET GT SCH (08:08)
[2016-08-08] MEDS: ZINC SULFATE 220 MG CAPSULE GT SCH (08:08)
[2016-08-08] MEDS: PANTOPRAZOLE 40 MG/PACK PACK GT SCH ×2 (08:08→23:48)
[2016-08-08] MEDS: FAMOTIDINE (20 MG) 20 MG TABLET GT SCH (08:08)
[2016-08-08] MEDS: NYSTATIN (PYXIS) 500,000 UNIT/5 ML ORAL.SUSP PO SCH ×3 (08:08→16:29)
[2016-08-08] MEDS: PROSOURCE / PROSTAT (PYXIS) 30 ML UDC GT SCH (08:08)
[2016-08-08] MEDS: ASCORBIC ACID 500 MG TABLET GT SCH (08:08)
[2016-08-08] MEDS: FERROUS SULFATE UDC 300 MG/5 ML UDC GT SCH (08:08)
[2016-08-08] MEDS: AMLODIPINE BESYLATE 5 MG TABLET GT SCH ×2 (08:09→23:48)
[2016-08-08] MEDS: LOSARTAN POTASSIUM 50 MG TABLET GT SCH ×2 (08:09→23:48)
[2016-08-08] MEDS: Z GUARD REMEDY 2 OZ OINT TP SCH (08:10)
[2016-08-08] MEDS: INSULIN DETEMIR 100 UNIT/ML CARTRIDGE SQ SCH (08:12)
[2016-08-08] MEDS: prednisoLONE ACETATE 1% SUSP 5 ML BOTTLE LEFTEYE SCH (08:13)
--- NOTE | 2016-08-08 08:15 | NUR ---
TELE/RN: CLARIFIED PRBC ORDER WITH BRITTANY, PER , TRANSFUSE ONLY 2 UNITS PRBCS TODAY WITH HD. RECHECK H/H POST HD. NOTED, CARRIED OUT. CALLED BLOOD BANK TO F/U.
--- NOTE | 2016-08-08 09:00 | NUR ---
TELE/RN: DR ALMAZAN ROUNDS; UPDATED ON PT STATUS, NO DIARRHEA PAST 24 HRS. ABN LABS ARIEL RASMUSSEN. NEW ORDERS NOTED AND CARRIED OUT.
[2016-08-08 09:21] LABS: BAND % (MANUAL) 2 % (0.0-5.0); EOSINOPHILS % (MANUAL) 2 % (0-4); LYMPHOCYTES % (MANUAL) 13 % (16-48); MONOCYTES % (MANUAL) 6 % (0-11.0); NEUTROPHILS % (MANUAL) 77 (42-76); PLATELET ESTIMATE ADEQUATE
[2016-08-08 09:22] LABS: ANISOCYTOSIS 1+; HYPOCHROMASIA 2+
--- NOTE | 2016-08-08 12:05 | NUR ---
TELE/RN: BP MEDS HELD; PT SCHEDULED FOR HD.
[2016-08-08] MEDS: RENAL NOVASOURCE 1,000 ML BOTTLE GT PRN (15:25)
--- NOTE | 2016-08-08 16:30 | NUR ---
TELE/RN: PT NOTED WITH LARGE AMOUNT OF LIQUID BROWN STOOL. SPECIMEN COLLECTED FOR OBS; CALLED LAB FOR MANAGER BUSINESS SYSTEMS. WOUND CARE RENDERED; PT TOLERATED WELL. TURNED AND REPOSITIONED FOR COMFORT.
--- NOTE | 2016-08-08 16:55 | NUR ---
TELE/RN: CALLED HD RNGERALD TO F/U HD TIME, PER HD RN, "I WILL BE THERE IN A FEW HOURS." INFORMED OF NEED FOR BLOOD TRANSFUSION FOR H/H 5.02/02.
--- NOTE | 2016-08-08 19:14 | NUR ---
RAJ/RN: PENDING HD TREATMENT. REMAINS HEMODYNAMICALLY STABLE. CARE ENDORSED TO PM RN FOR SHERRY.
[2016-08-08] MEDS ORDERED: BLOOD IV SET 1 EA INFUS.SET MC ONE (21:18)
[2016-08-08] MEDS ORDERED: IV NS 0.9% 250 ML IV ONE (21:18)
--- NOTE | 2016-08-08 21:40 | NUR ---
TELE-1/SMOKING PIPES CLEANER 2 UNITS PRBC BEING TRANSFUSED WITH HD RIGHT NOW. WILL CONTINUE TO MONITOR.
--- NOTE | 2016-08-08 21:57 | NUR ---
TELE-1/TOBY MAKER BLOOD TRANSFUSION COMPLETED BY HD NURSE. VSS AFEBRILE.
--- NOTE | 2016-08-08 23:39 | NUR ---
TELE-1/EXTRUDER TENDER HD COMPLETE 1700ML REMOVED. VSS. I WILL ADMIN 2100 MEDS.
[2016-08-08] MEDS: VANCOMYCIN 500 MG in IV D5W 100 ML IV PRN (23:57)
[2016-08-09] VITALS: BP 152/84
[2016-08-09 00:20] LABS: HEMOGLOBIN 8.5 g/dL (11.5-14.8)
[2016-08-09] MEDS: hydrALAZINE HCL 25 MG TABLET GT SCH ×5 (00:55→23:26)
[2016-08-09] MEDS: IPRATROPIUM NEB FS 0.5 MG/2.5 ML AMPUL.NEB NEB SCH ×4 (01:52→21:32)
[2016-08-09] MEDS: ALBUTEROL FS 2.5 MG/3 ML VIAL.NEB NEB SCH ×4 (01:52→21:32)
[2016-08-09 04:00] VITALS: BP 144/75
[2016-08-09] MEDS: BLOOD SUGAR DIAGNOSTIC 1 EACH STRIP IN SCH ×4 (05:04→23:25)
[2016-08-09] MEDS: METRONIDAZOLE 500 MG TABLET GT SCH ×3 (05:04→21:43)
[2016-08-09] MEDS: INSULIN REGULAR, HUMAN 100 UNIT/ML 3 ML VIAL SQ PRN ×3 (05:09→23:32)
--- NOTE | 2016-08-09 07:05 | NUR ---
RN NOTES RECEIVED PT ON BED , OBTUNDED , VENT DEPENDED , TRACH CARE DONE, TOLERATING CURRENT VENT SETTING WELL, IV HL ON R AND L FOOT #22 FLUSHED AND PATENT. TF NOVASOURCE AT 50CC/H RUNNING VIA GT , TOLERATING TF WELL, NO RESIDUAL NOTED. SR UP x3, SAFETY MEASURES IN PLACE, ALARM SOUNDS AUDIBLE, WILL CONT TO MONITOR PT CLOSELY AND NOTIFY MD FOR ANY SIGNIFICANT CHANGES.
[2016-08-09] MEDS: ACETYLCYSTEINE 10% SOLN 400 MG/4 ML VIAL NEB SCH ×3 (07:44→23:52)
[2016-08-09 07:50] LABS: EOSINOPHILS # (AUTO) 0.3 /CMM (0.0-0.7); EOSINOPHILS % (AUTO) 4.3 % (0.0-6.0); HEMATOCRIT 25 % (33-45); HEMOGLOBIN 8.6 g/dL (11.5-14.8); LYMPHOCYTES # (AUTO) 0.7 /CMM (0.8-4.8); LYMPHOCYTES % (AUTO) 11.5 % (20.0-44.0); MEAN CORPUSCULAR HEMOGLOBIN 30 PG (26.0-33.0); MEAN CORPUSCULAR HGB CONC 34 g/dl (31.0-36.0); MEAN CORPUSCULAR VOLUME 88 fL (82-100); MONOCYTES # (AUTO) 0.4 /CMM (0.1-1.30); MONOCYTES % (AUTO) 6.6 % (2.0-12.0); NEUTROPHILS # (AUTO) 4.9 /CMM (1.8-8.9); NEUTROPHILS % (AUTO) 77.6 % (43.0-81.0); PLATELET COUNT (AUTO) 299 /CMM (150-450); RDW COEFFICIENT OF VARIATION 16.8 (11.5-15.0); RED BLOOD CELL COUNT(AUTO) 2.85 MIL/uL (4.0-5.2); WHITE BLOOD COUNT (AUTO) 6.4 K/uL (4.3-11.0)
[2016-08-09 08:00] VITALS: BP 141/67
[2016-08-09 08:25] LABS: ALBUMIN 2.3 g/dL (3.4-5.0); BILIRUBIN,TOTAL 0.6 mg/dL (0.2-1.0); CALCIUM, SERUM 8.6 mg/dL (8.5-10.1); CREATININE 4.3 mg/dL (0.6-1.3); PHOSPHORUS 3.1 mg/dL (2.5-4.9); POTASSIUM 4.7 mmol/L (3.5-5.1); TOTAL PROTEIN, SERUM 7.1 g/dL (6.4-8.2)
[2016-08-09] MEDS: PROSOURCE / PROSTAT (PYXIS) 30 ML UDC GT SCH (08:39)
[2016-08-09] MEDS: VIT B CMPLX 3/FA/VIT C/BIOTIN 1 TAB TABLET GT SCH (08:39)
[2016-08-09] MEDS: LOSARTAN POTASSIUM 50 MG TABLET GT SCH ×2 (08:39→21:44)
[2016-08-09] MEDS: NYSTATIN (PYXIS) 500,000 UNIT/5 ML ORAL.SUSP PO SCH ×3 (08:39→17:23)
[2016-08-09] MEDS: PANTOPRAZOLE 40 MG/PACK PACK GT SCH ×2 (08:40→21:42)
[2016-08-09] MEDS: LEVETIRACETAM SOL (5 ML) 100 MG/ML UDC GT SCH ×2 (08:40→21:42)
[2016-08-09] MEDS: AMLODIPINE BESYLATE 5 MG TABLET GT SCH ×2 (08:40→21:42)
[2016-08-09] MEDS: ASCORBIC ACID 500 MG TABLET GT SCH (08:40)
[2016-08-09] MEDS: ZINC SULFATE 220 MG CAPSULE GT SCH (08:40)
[2016-08-09] MEDS: FERROUS SULFATE UDC 300 MG/5 ML UDC GT SCH (08:40)
[2016-08-09] MEDS: INSULIN DETEMIR 100 UNIT/ML CARTRIDGE SQ SCH (08:43)
[2016-08-09] MEDS: VANCOMYCIN HCL 125 MG/2.5 ML ORAL.SUSP PO SCH ×4 (08:43→21:41)
[2016-08-09] MEDS: prednisoLONE ACETATE 1% SUSP 5 ML BOTTLE LEFTEYE SCH (08:45)
[2016-08-09] MEDS: HYDROGEL DRESSING 90 GM TUBE TP SCH ×2 (08:46→17:26)
[2016-08-09] MEDS: Z GUARD REMEDY 2 OZ OINT TP SCH (08:46)
[2016-08-09 12:00] VITALS: BP 150/62
--- NOTE | 2016-08-09 12:00 | NUR ---
RN NOTES TRACH CARE DONE, VSS STABLE, TOLERATING CURRENT VENT SETTING WELL, TOLERATING TF NOVASOURCE AT 50CCHR VIA PEG , NO RESIDUAL NOTED, MEDICATED PER MD ORDER , NO SIGNIFICANT CHANGES NOTED ON THIS SHIFT. Addendum: 08/09/16 at 1828 by YOSVANY MILLER RN ABOVE TIME IS 18:27
--- NOTE | 2016-08-09 13:00 | NUR ---
RN NOTES TRACH CARE DONE, R FOOT AND L FOOT IV SITES CDI, VSS STABLE , CONTINUE TO MONITOR .
[2016-08-09] MEDS: RENAL NOVASOURCE 1,000 ML BOTTLE GT PRN (15:02)
[2016-08-09 16:00] VITALS: BP 132/68
[2016-08-09 20:00] VITALS: BP 131/60
[2016-08-10] VITALS: BP 134/67
[2016-08-10] MEDS: ALBUTEROL FS 2.5 MG/3 ML VIAL.NEB NEB SCH ×4 (01:32→19:28)
[2016-08-10] MEDS: IPRATROPIUM NEB FS 0.5 MG/2.5 ML AMPUL.NEB NEB SCH ×4 (01:32→19:28)
[2016-08-10 04:00] VITALS: BP 145/88
[2016-08-10] MEDS: hydrALAZINE HCL 25 MG TABLET GT SCH ×4 (05:15→23:57)
[2016-08-10] MEDS: BLOOD SUGAR DIAGNOSTIC 1 EACH STRIP IN SCH ×4 (05:15→23:56)
[2016-08-10] MEDS: METRONIDAZOLE 500 MG TABLET GT SCH ×3 (05:15→20:36)
[2016-08-10] MEDS: INSULIN REGULAR, HUMAN 100 UNIT/ML 3 ML VIAL SQ PRN ×4 (05:19→23:58)
[2016-08-10 08:00] VITALS: BP 149/71
[2016-08-10] MEDS: ACETYLCYSTEINE 10% SOLN 400 MG/4 ML VIAL NEB SCH ×2 (08:27→14:04)
--- NOTE | 2016-08-10 08:27 | NUR ---
RT PATIENT REC'D TRACHED ON [facility] VENT WITH SETTINGS SET PER MD TOLERATED WELL. VENT ALARMS CHECKED + AUDIBLE. VENT PLUGGED INTO RED OUTLET. PATIENT APPEARS COMFORTABLE AND NO DISTRESS. TRACH SECURE AND IN PROPER POSITION. PATIENT SUCTIONED WITH SMALL AMT PALE SEMITHICK SECRETIONS. BS DIM COARSE. AMBU BAG AT [facility]. CONT CURRENT PLAN OF CARE. Addendum: 08/10/16 at 1226 by DANELLE MORTENSEN RT Amended: Links added.
--- NOTE | 2016-08-10 08:30 | NUR ---
RN NOTE PT HAVING DIALYSIS THIS MORNING HELP B/P MEDICATIONS
[2016-08-10] MEDS: LOSARTAN POTASSIUM 50 MG TABLET GT SCH ×2 (08:43→20:33)
[2016-08-10] MEDS: NYSTATIN (PYXIS) 500,000 UNIT/5 ML ORAL.SUSP PO SCH ×3 (08:44→16:55)
[2016-08-10] MEDS: FERROUS SULFATE UDC 300 MG/5 ML UDC GT SCH (08:44)
[2016-08-10] MEDS: PROSOURCE / PROSTAT (PYXIS) 30 ML UDC GT SCH (08:44)
[2016-08-10] MEDS: LEVETIRACETAM SOL (5 ML) 100 MG/ML UDC GT SCH ×2 (08:44→20:36)
[2016-08-10] MEDS: VIT B CMPLX 3/FA/VIT C/BIOTIN 1 TAB TABLET GT SCH (08:45)
[2016-08-10] MEDS: ASCORBIC ACID 500 MG TABLET GT SCH (08:45)
[2016-08-10] MEDS: ZINC SULFATE 220 MG CAPSULE GT SCH (08:45)
[2016-08-10] MEDS: FAMOTIDINE (20 MG) 20 MG TABLET GT SCH (08:45)
[2016-08-10] MEDS: PANTOPRAZOLE 40 MG/PACK PACK GT SCH ×2 (08:45→20:36)
[2016-08-10] MEDS: prednisoLONE ACETATE 1% SUSP 5 ML BOTTLE LEFTEYE SCH (08:46)
[2016-08-10] MEDS: HYDROGEL DRESSING 90 GM TUBE TP SCH ×2 (08:46→16:56)
[2016-08-10] MEDS: Z GUARD REMEDY 2 OZ OINT TP SCH (08:47)
[2016-08-10] MEDS: AMLODIPINE BESYLATE 5 MG TABLET GT SCH ×2 (08:51→20:33)
[2016-08-10] MEDS: VANCOMYCIN HCL 125 MG/2.5 ML ORAL.SUSP PO SCH ×4 (08:51→20:35)
[2016-08-10] MEDS: INSULIN DETEMIR 100 UNIT/ML CARTRIDGE SQ SCH (08:55)
[2016-08-10 09:07] LABS: CALCIUM, SERUM 8.8 mg/dL (8.5-10.1); CREATININE 5.2 mg/dL (0.6-1.3); POTASSIUM 4.6 mmol/L (3.5-5.1)
[2016-08-10] MEDS: RENAL NOVASOURCE 1,000 ML BOTTLE GT PRN (09:11)
--- NOTE | 2016-08-10 09:57 | NUR ---
RN INITIAL NOTE PT RECEIVED IN BED RESTING COMFORTABLY. PT IS OBTUNDED-NON VERBAL. NO S/S OF PAIN OR DISCOMFORT. NO S/S OF RESPIRATORY DISTRESS OR SOB. TRACH: PORTEX #7, AC 12, TV 500, FI02 40%, SKIN WARM AND DRY TO TOUCH. IV SITE FLUSHED AND PATENT. TOLERATING GTUBE FEEDING WELL. SAFETY MEASURES IMPLEMENTED. CALL LIGHT WITHIN REACH. WILL CONTINUE TO MONITOR.
[2016-08-10 12:00] VITALS: BP 143/73
[2016-08-10 16:00] VITALS: BP 121/30
[2016-08-10 20:00] VITALS: BP 106/52
[2016-08-10] MEDS: VANCOMYCIN 500 MG in IV D5W 100 ML IV PRN (20:40)
[2016-08-10] MEDS: SCOPOLAMINE HBR 1 EA PATCH.TD72 TD SCH (21:30)
[2016-08-11] VITALS: BP 131/74
[2016-08-11] MEDS: ALBUTEROL FS 2.5 MG/3 ML VIAL.NEB NEB SCH ×4 (00:41→19:18)
[2016-08-11] MEDS: IPRATROPIUM NEB FS 0.5 MG/2.5 ML AMPUL.NEB NEB SCH ×4 (00:41→19:18)
[2016-08-11] MEDS: ACETYLCYSTEINE 10% SOLN 400 MG/4 ML VIAL NEB SCH ×4 (00:41→23:57)
[2016-08-11 04:00] VITALS: BP 131/71
[2016-08-11] MEDS: BLOOD SUGAR DIAGNOSTIC 1 EACH STRIP IN SCH ×3 (05:13→17:51)
[2016-08-11] MEDS: METRONIDAZOLE 500 MG TABLET GT SCH ×3 (05:13→21:11)
[2016-08-11] MEDS: hydrALAZINE HCL 25 MG TABLET GT SCH ×3 (05:13→17:01)
--- NOTE | 2016-08-11 07:20 | NUR ---
RN INITIAL NOTES RECEIVED PT IN BED, OBTUNDED, PT IS ON [facility] VENT, PORTEX # 7 AC 12 TV 500 FIO2 40% PEEP5, SATING WELL, NO S/S OF RESP. DISTRESS OR SOB NOTED AT THIS TIME, BREATHING IS UNLABORED AND EVEN,PT IS NOTED WITH MULTIPLE SKIN ISSUES, PT IS ON TELE MONITOR SHOWING SR @ 86 BPM, NO C/O OF CHEST PAIN OR DISTRESS AT THIS TIME, PT HAS LEFT FOOT #20G, SL, R FOOT #20G, SL, C/D/I/PATENT, FLUSHING WELL, NO S/S OF INFECTION/ INFILTRATION NOTED AT THIS TIME, R FEMORAL HD CATH, DRESSING INTACT/CLEAN AND DRY, PT HAS GTUBE INTACT/PATENT, RUNNING NOVASOURCE @ 50ML/HR, TOLERATING WELL, NO RESIDUAL NOTED AT THIS TIME, ISOLATION PRECAUTIONS OBSERVED AT ALL TIMES, ALL SAFETY MEASURES IN PLACE AT ALL TIMES, CALL LIGHT WITHIN EASY REACH, ALL NEEDS MET AT THIS TIME, WILL CLOSELY MONITOR PT CLOSELY
[2016-08-11 07:45] LABS: CALCIUM, SERUM 7.1 mg/dL (8.5-10.1); CREATININE 4.1 mg/dL (0.6-1.3); POTASSIUM 4.3 mmol/L (3.5-5.1)
[2016-08-11 08:00] VITALS: BP 112/62
[2016-08-11] MEDS: INSULIN DETEMIR 100 UNIT/ML CARTRIDGE SQ SCH (08:25)
[2016-08-11] MEDS: NYSTATIN (PYXIS) 500,000 UNIT/5 ML ORAL.SUSP PO SCH ×3 (08:26→16:17)
[2016-08-11] MEDS: VIT B CMPLX 3/FA/VIT C/BIOTIN 1 TAB TABLET GT SCH (08:27)
[2016-08-11] MEDS: VANCOMYCIN HCL 125 MG/2.5 ML ORAL.SUSP PO SCH ×3 (08:27→16:17)
[2016-08-11] MEDS: LEVETIRACETAM SOL (5 ML) 100 MG/ML UDC GT SCH ×2 (08:27→21:11)
[2016-08-11] MEDS: PANTOPRAZOLE 40 MG/PACK PACK GT SCH ×2 (08:27→21:11)
[2016-08-11] MEDS: FERROUS SULFATE UDC 300 MG/5 ML UDC GT SCH (08:27)
[2016-08-11] MEDS: ZINC SULFATE 220 MG CAPSULE GT SCH (08:27)
[2016-08-11] MEDS: LOSARTAN POTASSIUM 50 MG TABLET GT SCH ×2 (08:27→21:00)
[2016-08-11] MEDS: ASCORBIC ACID 500 MG TABLET GT SCH (08:27)
[2016-08-11] MEDS: PROSOURCE / PROSTAT (PYXIS) 30 ML UDC GT SCH (08:28)
[2016-08-11] MEDS: AMLODIPINE BESYLATE 5 MG TABLET GT SCH ×2 (08:29→21:00)
[2016-08-11] MEDS: Z GUARD REMEDY 2 OZ OINT TP SCH (08:30)
[2016-08-11] MEDS: HYDROGEL DRESSING 90 GM TUBE TP SCH ×2 (08:30→16:18)
[2016-08-11] MEDS: prednisoLONE ACETATE 1% SUSP 5 ML BOTTLE LEFTEYE SCH (08:30)
--- NOTE | 2016-08-11 08:30 | NUR ---
RN NOTES LEVEMIR WAS NOT GIVEN, BS 95
[2016-08-11] MEDS: INSULIN REGULAR, HUMAN 100 UNIT/ML 3 ML VIAL SQ PRN ×2 (11:54→17:52)
[2016-08-11] MEDS: RENAL NOVASOURCE 1,000 ML BOTTLE GT PRN (11:55)
[2016-08-11] MEDS: ACETAMINOPHEN 650 MG/20.3 ML UDC GT PRN (11:56)
[2016-08-11 12:00] VITALS: BP 96/46
[2016-08-11] MEDS: BENEFIBER 4 GM 1 EA PACKET GT SCH ×2 (12:59→16:17)
[2016-08-11 16:00] VITALS: BP 117/65
--- NOTE | 2016-08-11 17:00 | NUR ---
RN NOTES PT NOTED WITH 4 LARGE LOOSE BM'S
--- NOTE | 2016-08-11 18:31 | NUR ---
RN NOTES PT REMAINED STABLE DURING SHIFT, ALL ORDERS CARRIED OUT, ALL MEDICATIONS GIVEN, IV C/D/I/PATENT, PT KEPT CLEAN AND DRY, GTUBE, INTACT/PATENT, RUNNING FEEDING ORDERED, ISOLATION PRECAUTIONS OBSERVED AT THIS TIME, ALL TREATMENTS CARRIED OUT. ALL SAFETY MEASURES IN PLACE AT ALL TIMES, CALL LIGHT WITHIN EASY REACH, ALL NEEDS MET AT THIS TIME, REPORT WILL BE GIVEN TO PM RN FOR SHERRY
--- NOTE | 2016-08-11 19:15 | NUR ---
RN INITIAL NOTES RECEIVED PATIENT IN BED, OBTUNDED, OPENS EYES SPONTANEOUSLY. PATIENT WITH NO ACUTE DISTRESS OBSERVED. ON MECH VENT VIA TRACH, C/D/I, MIDLINE. AIRWAY KEPT PATENT, SUCTIONED NEEDED. HOB ELEVATED WITH GTF INFUSING WELL. FLUSHED AND KEPT PATENT. NO GASTRIC RESIDUAL NOTED. L FOOT AND R FOOT PIV, FLUSHED AND PATENT, NO SIGNS OF INFILTRATION NOTED. PATIENT'S NEEDS ANTICIPATED AND MET. SAFETY AND COMFORT ENSURED. BED IN LOW AND LOCKED POSITION. WILL MONITOR.
[2016-08-11 20:00] VITALS: BP 129/66
[2016-08-12] VITALS (7 sets, daily range): BP systolic 101–179; BP diastolic 37–82
[2016-08-12] MEDS: hydrALAZINE HCL 25 MG TABLET GT SCH ×5 (00:21→23:58)
[2016-08-12] MEDS: VANCOMYCIN HCL 125 MG/2.5 ML ORAL.SUSP PO SCH ×5 (00:21→23:58)
[2016-08-12] MEDS: BLOOD SUGAR DIAGNOSTIC 1 EACH STRIP IN SCH ×5 (00:25→23:57)
[2016-08-12] MEDS: INSULIN REGULAR, HUMAN 100 UNIT/ML 3 ML VIAL SQ PRN ×4 (00:29→17:50)
--- NOTE | 2016-08-12 01:10 | NUR ---
RN NOTES NOTED WITH LOOSE, LIQUID BROWN STOOL. PM CARE RENDERED. PATIENT KEPT CLEAN AND DRY. PATIENT WITH LOW GRADE FEVER OF 99.9, COOLING MEASURES RENDERED. WILL MONITOR PATIENT CLOSELY.
[2016-08-12] MEDS: ALBUTEROL FS 2.5 MG/3 ML VIAL.NEB NEB SCH ×4 (01:49→20:20)
[2016-08-12] MEDS: IPRATROPIUM NEB FS 0.5 MG/2.5 ML AMPUL.NEB NEB SCH ×4 (01:49→20:20)
[2016-08-12] MEDS: RENAL NOVASOURCE 1,000 ML BOTTLE GT PRN (05:29)
[2016-08-12] MEDS: ACETAMINOPHEN 650 MG/20.3 ML UDC GT PRN ×3 (05:29→16:31)
[2016-08-12] MEDS: METRONIDAZOLE 500 MG TABLET GT SCH ×3 (05:29→21:27)
--- NOTE | 2016-08-12 06:51 | NUR ---
RN CLOSING NOTES PATIENT WITH NO ACUTE CHANGE IN CONDITION OBSERVED OVERNIGHT. PATIENT PROVIDED WITH COOLING MEASURES, KEPT CLEAN AND DRY. X2 LOOSE STOOL NOTED DURING THE SHIFT. WOUND CARE RENDERED. TRACH CARE AND ORAL CARE DONE. GT KEPT PATENT, FEEDING INFUSING WELL, NO GASTRIC RESIDUAL NOTED. ALL DUE MEDS GIVEN ORDERED. PATIENT'S NEEDS ANTICIPATED AND MET. SAFETY AND COMFORT ENSURED. TURNED AND REPOSITIONED [id number] AND PRN FOR COMFORT. BED IN LOW AND LOCKED POSITION. CALL LIGHT IN REACH. WILL ENDORSE ACCORDINGLY FOR CONTINUITY OF CARE.
--- NOTE | 2016-08-12 07:30 | NUR ---
RN INITIAL NOTES PT ON BEDREST, OBTUNDED, ON CUSTOMER CONTACT SPECIALIST SINUS TACHY, 105 B/MIN, NO SOB, SUCTIONED NEEDED, ON MECH VENT WITH SETTINGS ORDERED, SATURATION 100% ON G TUBE FEEDING, 50 ML/H, NO RESIDUAL, IV IN BLE, PATENT,FLUSHED, DVT PUMPS IN PLACE, WORKING, VS STABLE, BED IN LOW AND LOCKED POSITION, CALL LIGHT WITHIN REACH, CLOSE TO NURSING STATION, ALL ALARMS ARE ON, TEACHING DONE TO FAMILY, PT UNABLE TO COMPREHEND, WOUND CARE DONE ORDERED, KEPT CLEAN AND DRY, TURNED AND REPOSITIONED Q2H, LABS WNL, EXCEPT FOR BUN/CR PT ON HD.PT HAS LOOSE STOOL, WBC 6.4, NO FEVER, ON ANTIBIOTIC TREATMENT. WILL CONTINUE TO MONITOR
[2016-08-12 07:48] LABS: CALCIUM, SERUM 8.3 mg/dL (8.5-10.1); CREATININE 5.3 mg/dL (0.6-1.3); POTASSIUM 4.5 mmol/L (3.5-5.1)
[2016-08-12] MEDS: ACETYLCYSTEINE 10% SOLN 400 MG/4 ML VIAL NEB SCH ×3 (08:35→23:29)
[2016-08-12] MEDS: ASCORBIC ACID 500 MG TABLET GT SCH (09:04)
[2016-08-12] MEDS: ZINC SULFATE 220 MG CAPSULE GT SCH (09:04)
[2016-08-12] MEDS: FERROUS SULFATE UDC 300 MG/5 ML UDC GT SCH (09:05)
[2016-08-12] MEDS: FAMOTIDINE (20 MG) 20 MG TABLET GT SCH (09:05)
[2016-08-12] MEDS: LEVETIRACETAM SOL (5 ML) 100 MG/ML UDC GT SCH ×2 (09:05→21:48)
[2016-08-12] MEDS: PANTOPRAZOLE 40 MG/PACK PACK GT SCH ×2 (09:05→21:26)
[2016-08-12] MEDS: NYSTATIN (PYXIS) 500,000 UNIT/5 ML ORAL.SUSP PO SCH ×3 (09:05→16:31)
[2016-08-12] MEDS: PROSOURCE / PROSTAT (PYXIS) 30 ML UDC GT SCH (09:05)
[2016-08-12] MEDS: VIT B CMPLX 3/FA/VIT C/BIOTIN 1 TAB TABLET GT SCH (09:05)
[2016-08-12] MEDS: BENEFIBER 4 GM 1 EA PACKET GT SCH ×2 (09:06→16:31)
[2016-08-12] MEDS: prednisoLONE ACETATE 1% SUSP 5 ML BOTTLE LEFTEYE SCH (09:07)
[2016-08-12] MEDS: HYDROGEL DRESSING 90 GM TUBE TP SCH ×2 (09:08→16:33)
[2016-08-12] MEDS: Z GUARD REMEDY 2 OZ OINT TP SCH (09:08)
[2016-08-12] MEDS: AMLODIPINE BESYLATE 5 MG TABLET GT SCH ×2 (09:08→21:27)
[2016-08-12] MEDS: LOSARTAN POTASSIUM 50 MG TABLET GT SCH ×2 (09:09→21:26)
[2016-08-12] MEDS: INSULIN DETEMIR 100 UNIT/ML CARTRIDGE SQ SCH (09:10)
[2016-08-12] MEDS ORDERED: SECONDARY IV SET 1 EA INFUS.SET MC ONE (17:17)
--- NOTE | 2016-08-12 19:46 | NUR ---
RN NOTE. INITIAL ASSESSMENT. RECEIVEDV THE PT REST ON THE BED. NONVERBAL TRACH TO VENT CONNECTED. PORTEX #7, AC 12, TV 500,FIO2 40%PEEP 5. SAT 98 %. ROOM SERVICE RUNNER SHOWING NSR. IV RT FOOT SALINE LOCK. RT FEMORAL HD CATH. GT INTACT, NOVA SOURCE 50 ML/H. HOB ELEVATED. TURN AND REPOSITION Q2H. WILL CONTINUE TO MONITOR VITALS.
[2016-08-12] MEDS ORDERED: IV SET PRIMARY PUMP SET 1 EA INFUS.SET MC ONE (21:16)
[2016-08-12] MEDS ORDERED: METRONIDAZOLE 250 MG TABLET ONE (21:17)
[2016-08-12] MEDS: VANCOMYCIN 500 MG in IV D5W 100 ML IV PRN (21:27)
[2016-08-13] VITALS: BP_SYST 122; BP_SYST 123; BP_DIAS 60; BP_DIAS 65
[2016-08-13] MEDS: INSULIN REGULAR, HUMAN 100 UNIT/ML 3 ML VIAL SQ PRN ×3 (00:01→23:33)
--- NOTE | 2016-08-13 00:11 | NUR ---
RN NOTE. PT GETTING FLAGYL 500MG Q8H. 2100 GIVEN. 2`117 AGAIN NEW ORDER FLAGYL 250 MG ONCE DOSE. NAM NUCLEAR POWER REACTOR OPERATOR ORDERED. PAGED FOR CLARIFICATION ORDER . NOT CALL BACK. THEN CALLED [facility] . ORDER JUST HOLD AND FIND OUT I WILL BE ENDORSE TO DAY SHIFT.
[2016-08-13] MEDS: IPRATROPIUM NEB FS 0.5 MG/2.5 ML AMPUL.NEB NEB SCH ×4 (01:38→19:41)
[2016-08-13] MEDS: ALBUTEROL FS 2.5 MG/3 ML VIAL.NEB NEB SCH ×4 (01:38→19:41)
[2016-08-13] MEDS: METOCLOPRAMIDE HCL 10 MG/10 ML UDC GT PRN (02:27)
--- NOTE | 2016-08-13 02:34 | NUR ---
RN NOTE. AM CARE, ORAL CARE, BED BATH GIVEN. LINEN CHANGED. REMAINING SAME VENT SETTING TOLERATED SAT 98 %. ETHYLENE PLANT OPERATOR SHOWING NSR. IV RT FOOT. SALINE LOCK. GT FEEDING TOLERATED WELL. TURN AND REPOSITION Q2H. WILL COTINUE TO MONITO VITALS..
[2016-08-13 04:00] VITALS: BP 137/67
[2016-08-13] MEDS: hydrALAZINE HCL 25 MG TABLET GT SCH ×4 (05:35→23:19)
[2016-08-13] MEDS: METRONIDAZOLE 500 MG TABLET GT SCH ×2 (05:35→12:03)
[2016-08-13] MEDS: BLOOD SUGAR DIAGNOSTIC 1 EACH STRIP IN SCH ×4 (05:36→23:40)
[2016-08-13] MEDS: VANCOMYCIN HCL 125 MG/2.5 ML ORAL.SUSP PO SCH ×4 (05:36→23:27)
--- NOTE | 2016-08-13 06:08 | NUR ---
RN NOTE. PT VOMITED X2. FEEDING HELD.
[2016-08-13 07:41] LABS: CALCIUM, SERUM 8.8 mg/dL (8.5-10.1); CREATININE 5.5 mg/dL (0.6-1.3); POTASSIUM 4.4 mmol/L (3.5-5.1)
[2016-08-13 08:00] VITALS: BP 127/63
[2016-08-13] MEDS: ACETYLCYSTEINE 10% SOLN 400 MG/4 ML VIAL NEB SCH ×3 (08:43→23:31)
[2016-08-13] MEDS: AMLODIPINE BESYLATE 5 MG TABLET GT SCH ×2 (09:00→21:00)
[2016-08-13] MEDS: LOSARTAN POTASSIUM 50 MG TABLET GT SCH ×2 (09:36→21:00)
[2016-08-13] MEDS: VIT B CMPLX 3/FA/VIT C/BIOTIN 1 TAB TABLET GT SCH (09:36)
[2016-08-13] MEDS: FERROUS SULFATE UDC 300 MG/5 ML UDC GT SCH (09:36)
[2016-08-13] MEDS: LEVETIRACETAM SOL (5 ML) 100 MG/ML UDC GT SCH ×2 (09:36→21:40)
[2016-08-13] MEDS: ZINC SULFATE 220 MG CAPSULE GT SCH (09:37)
[2016-08-13] MEDS: PROSOURCE / PROSTAT (PYXIS) 30 ML UDC GT SCH (09:37)
[2016-08-13] MEDS: NYSTATIN (PYXIS) 500,000 UNIT/5 ML ORAL.SUSP PO SCH ×3 (09:37→16:13)
[2016-08-13] MEDS: PANTOPRAZOLE 40 MG/PACK PACK GT SCH ×2 (09:37→21:45)
[2016-08-13] MEDS: ASCORBIC ACID 500 MG TABLET GT SCH (09:37)
[2016-08-13] MEDS: HYDROGEL DRESSING 90 GM TUBE TP SCH ×2 (09:38→16:01)
[2016-08-13] MEDS: Z GUARD REMEDY 2 OZ OINT TP SCH (09:38)
[2016-08-13] MEDS: BENEFIBER 4 GM 1 EA PACKET GT SCH ×2 (09:58→16:13)
[2016-08-13] MEDS: prednisoLONE ACETATE 1% SUSP 5 ML BOTTLE LEFTEYE SCH (09:59)
[2016-08-13] MEDS: INSULIN DETEMIR 100 UNIT/ML CARTRIDGE SQ SCH (10:00)
[2016-08-13] MEDS: ACETAMINOPHEN 650 MG/20.3 ML UDC GT PRN ×2 (10:00→16:32)
[2016-08-13] MEDS: RENAL NOVASOURCE 1,000 ML BOTTLE GT PRN (10:01)
--- NOTE | 2016-08-13 11:06 | NUR ---
PROPELLANT CHARGE LOADER NOTE Pt obtunded, nonverbal. Tolerating vent settings. On tele, SR/ST. No residuals, no emesis this shift, restarted tube feeding at 50ml/hr. Held norvasc for SBP<130. Temp 100.4, tylenol given. PIVs in foot SL. Will cont to monitor.
[2016-08-13 12:00] VITALS: BP 169/58
--- NOTE | 2016-08-13 12:49 | NUR ---
SPICE ROOM WORKER NOTE RN alerted by RT of respirations of 30-40. BP elevated 169/58, HR 120's. Pt appeared to be fighting vent, RT increased flow. Pt has calmed down, RR now around 17, HR back down to 100's. Temp 102.7. Restarted tube feed at 1000, residuals of 200cc at 1200, stopped tube feed. Will cont to monitor.
[2016-08-13 16:00] VITALS: BP 130/62
--- NOTE | 2016-08-13 18:15 | NUR ---
PRESENTATION TEAM MEMBER NOTE Pt stable, HR 100's. BM x3, liquid stool. Discharge order, waiting for SNF placement. Fevers today, tylenol given q6h, ice packs applied, fan on. Per Robert, wants to keep pt on cdiff precautions until pt no longer having diarrhea. Residuals 200ml, held tube feed for 3 hrs, tube feed running now at 50ml/hr. MRSA sent d/t possible discharge & being in hospital >21 days. Will cont to monitor.
--- NOTE | 2016-08-13 19:43 | NUR ---
CLINICAL TRANSFORMATION SPECIALIST INITIAL NOTE RECEIVED PT FROM AM SHIFT. PT IN BED PT OBTUNDED. NO S/S OF DISTRESS OR DISCOMFORT. TOLERATING VENT SETTINGS WELL. ON TELE SR. PT ON GTF 30CC RESIDUAL/FLUSHED. TUBE FEEDING RUNNING AT 50ML/HR. IV/HL RIGHT FOOT 20G FLUSHED AND PATENT WITH NO S/S OF INFILTRATION. IV/HL LEFT FOOT 20G FLUSHED AND PATENT WITH NO S/S OF INFILTRATION. WILL CONTINUE TO CARE AND MONITOR PATIENT AND FOLLOW MD ORDERS.
[2016-08-13 20:00] VITALS: BP 101/49
[2016-08-13] MEDS ORDERED: IV SET PRIMARY PUMP SET 1 EA INFUS.SET MC ONE (21:29)
[2016-08-13] MEDS: METRONIDAZOLE 500MG/ NS 100ML 500 MG in PREMIX 1 EA IV SCH (21:36)
[2016-08-13] MEDS: SCOPOLAMINE HBR 1 EA PATCH.TD72 TD SCH (21:39)
[2016-08-14] VITALS: BP 122/60
[2016-08-14] MEDS: ONDANSETRON HCL/PF 4 MG/2 ML VIAL IV PRN (01:39)
[2016-08-14] MEDS: IPRATROPIUM NEB FS 0.5 MG/2.5 ML AMPUL.NEB NEB SCH ×4 (02:26→20:34)
[2016-08-14] MEDS: ALBUTEROL FS 2.5 MG/3 ML VIAL.NEB NEB SCH ×4 (02:26→20:35)
[2016-08-14 04:00] VITALS: BP 138/61
[2016-08-14] MEDS: VANCOMYCIN HCL 125 MG/2.5 ML ORAL.SUSP PO SCH ×4 (05:58→23:50)
[2016-08-14] MEDS: BLOOD SUGAR DIAGNOSTIC 1 EACH STRIP IN SCH ×4 (06:00→23:50)
[2016-08-14] MEDS: INSULIN REGULAR, HUMAN 100 UNIT/ML 3 ML VIAL SQ PRN ×3 (06:01→23:57)
--- NOTE | 2016-08-14 07:15 | NUR ---
RN CLOSING NOTES: PT IS RESTING WITH NO S/S OF DISTRESS OR DISCOMFORT. PT VOMITED DURING SHIFT, PRN OF ZOFRAN WAS GIVEN. PT IS NOW TOLERATING FEEDING WELL. PT IS TOLERATING VENT WITH NO S/S OF DISTRESS. WILL ENDORSE PT TO AM SHIFT FOR SHERRY.
[2016-08-14] MEDS: METRONIDAZOLE 500MG/ NS 100ML 500 MG in PREMIX 1 EA IV SCH ×3 (07:22→20:34)
[2016-08-14] MEDS: hydrALAZINE HCL 25 MG TABLET GT SCH ×4 (07:23→23:50)
--- NOTE | 2016-08-14 07:30 | NUR ---
initial note patient resting in bed, does not respond to name. opens eyes spontaneously. breathing with mech vent appearing stable, trach patent, minimal light yellow secretions. tele monitor reading SR/ ST 99-105. no emesis noted. residuals checked and received approximately 200 ml. feeding held. Patient has 2 IVs, BL feet- both noted to be non-patent, leaking. will remove. skin warm, slightly moist, fan on. repositioned in functional allignment. patient contracted. call light in reach.
[2016-08-14 07:33] LABS: CALCIUM, SERUM 9.3 mg/dL (8.5-10.1); CREATININE 6.5 mg/dL (0.6-1.3); POTASSIUM 4.8 mmol/L (3.5-5.1)
[2016-08-14] MEDS: ACETYLCYSTEINE 10% SOLN 400 MG/4 ML VIAL NEB SCH ×3 (07:35→23:45)
[2016-08-14 08:00] VITALS: BP 149/75
[2016-08-14] MEDS: LEVETIRACETAM SOL (5 ML) 100 MG/ML UDC GT SCH ×2 (08:10→20:32)
[2016-08-14] MEDS: VIT B CMPLX 3/FA/VIT C/BIOTIN 1 TAB TABLET GT SCH (08:10)
[2016-08-14] MEDS: FERROUS SULFATE UDC 300 MG/5 ML UDC GT SCH (08:10)
[2016-08-14] MEDS: NYSTATIN (PYXIS) 500,000 UNIT/5 ML ORAL.SUSP PO SCH ×3 (08:10→16:47)
[2016-08-14] MEDS: AMLODIPINE BESYLATE 5 MG TABLET GT SCH ×2 (08:10→20:50)
[2016-08-14] MEDS: ZINC SULFATE 220 MG CAPSULE GT SCH (08:10)
[2016-08-14] MEDS: BENEFIBER 4 GM 1 EA PACKET GT SCH ×2 (08:10→16:49)
[2016-08-14] MEDS: ASCORBIC ACID 500 MG TABLET GT SCH (08:10)
[2016-08-14] MEDS: LOSARTAN POTASSIUM 50 MG TABLET GT SCH ×2 (08:11→20:50)
[2016-08-14] MEDS: PROSOURCE / PROSTAT (PYXIS) 30 ML UDC GT SCH (08:11)
[2016-08-14] MEDS: PANTOPRAZOLE 40 MG/PACK PACK GT SCH ×2 (08:11→20:33)
[2016-08-14] MEDS: FAMOTIDINE (20 MG) 20 MG TABLET GT SCH (08:11)
[2016-08-14] MEDS: prednisoLONE ACETATE 1% SUSP 5 ML BOTTLE LEFTEYE SCH (08:12)
[2016-08-14] MEDS: HYDROGEL DRESSING 90 GM TUBE TP SCH ×2 (08:12→16:48)
[2016-08-14] MEDS: Z GUARD REMEDY 2 OZ OINT TP SCH (08:13)
[2016-08-14] MEDS: INSULIN DETEMIR 100 UNIT/ML CARTRIDGE SQ SCH ×2 (08:15→09:00)
[2016-08-14] MEDS: CHOLESTYRAMINE/ASPARTAME 4 G/PKT PACKET GT SCH ×2 (11:15→20:33)
--- NOTE | 2016-08-14 11:29 | NUR ---
rn note no residual noted at this time, feeding has been off since 0800. resuming feeding at this time. blood sugar 131, no insulin coverage.
[2016-08-14] MEDS ORDERED: SECONDARY IV SET 1 EA INFUS.SET MC ONE ×2 (11:58→20:37)
[2016-08-14 12:00] VITALS: BP 146/71
[2016-08-14] MEDS: VANCOMYCIN 500 MG in IV D5W 100 ML IV PRN (12:08)
[2016-08-14] MEDS ORDERED: ALTEPLASE CATHFLO 2 MG/VIAL IV ONE (13:30)
[2016-08-14 16:00] VITALS: BP 129/73
[2016-08-14] MEDS ORDERED: LIDOCAINE 1% INJ 50 ML MDV IJ ONE (18:00)
--- NOTE | 2016-08-14 18:17 | NUR ---
RT END OF THE SHIFT REPORT: PT. 56 Y OLD MALE REMAIN TRACHED ON VENT WITH NOTED SETTINGS, ALARMS ARE SET AND FUNCTIONAL, B/S RHONCHI SUX' FOR MINIMAL GALDAMEZ SECRETIONS, NO DISTRESS NOTED T/O SHIFT NO CHANGES EQUAL CHEST RISE NOTED HME CHANGED PT. REMAIN STABLE BERE. NOTED SETTINGS VENT PLUGGED INTO RED OUTLET AND AMBU BAG AT THE BEDSIDE. REPORT WILL BE PASS TO PM SHIFT. Addendum: 08/14/16 at 1818 by YVONNE HARPER RT Amended: Links added.
--- NOTE | 2016-08-14 19:30 | NUR ---
GEOLOGIC TECHNICIAN INITIAL NOTE PT IN BED. NO S/S OF RESPIRATORY DISTRESS NOTED. ON MECH VENT TOLERATING WELL AND SATING WELL. TELE- SINUS RHYTHM 90'S. IV STAN MIDLINE CLEAN DRY AND INTACT, FLUSHING WELL. GTUBE FEEDING WELL TOLERATED WITHOUT RESIDUAL. GTUBE SITE INTACT, PATENT AND FLUSHING WELL. ISOLATION PRECAUTIONS OBSERVED. ALL SAFETY MEASURES IN PLACE. WILL CONTINUE TO MONITOR.
--- NOTE | 2016-08-14 19:32 | NUR ---
closing note left patient in stable condition. breathing even and unlabored on mechanical ventilator. no more GT residual noted. endorsed to rrts about blood sugar levels, coverage and feeding. last BP checked @ 1915 noted 123/71. wound unchanged, provided frequent repositioning and ADL and wound care. call light in reach.
[2016-08-14 20:00] VITALS: BP 126/67
[2016-08-14] MEDS ORDERED: IV SET PRIMARY PUMP SET 1 EA INFUS.SET MC ONE (20:27)
[2016-08-14] MEDS ORDERED: IV NS 0.9% 250 ML IV ONE (20:27)
[2016-08-15] VITALS: BP 139/76
--- NOTE | 2016-08-15 01:45 | NUR ---
SYRUP MIXER ASSISTANT NOTE CONTINUATION OF CARE ENDORSED.
--- NOTE | 2016-08-15 01:50 | NUR ---
PROVIDER NETWORK MANAGER NOTES RECEIVED CONTINUITY OF CARE FROM KAMILLA. NO RESPIRATORY DISTRESS NOTED. TOLERATING VENT SETTINGS. KEPT CLEAN AND DRY. TURNED AND REPOSITIONED. GT PATENT, INTACT, AND IN PLACE. WITH STAN MIDLINE PATENT AND INTACT. ISOLATION PRECAUTIONS OBSERVED. HOB KEPT ELEVATED. SIDE RAILS UP AND LOCKED. BED KEPT AT LOWEST POSITION. SINUS RHYTHM ON TELE MONITOR. WILL CONTINUE TO MONITOR.
[2016-08-15] MEDS: IPRATROPIUM NEB FS 0.5 MG/2.5 ML AMPUL.NEB NEB SCH ×4 (01:57→20:14)
[2016-08-15] MEDS: ALBUTEROL FS 2.5 MG/3 ML VIAL.NEB NEB SCH ×4 (01:57→20:14)
[2016-08-15 04:00] VITALS: BP 134/74
[2016-08-15] MEDS ORDERED: IV NS 0.9% 250 ML IV ONE (05:16)
[2016-08-15] MEDS: METRONIDAZOLE 500MG/ NS 100ML 500 MG in PREMIX 1 EA IV SCH ×3 (05:20→20:18)
[2016-08-15] MEDS: BLOOD SUGAR DIAGNOSTIC 1 EACH STRIP IN SCH ×4 (05:20→23:46)
[2016-08-15] MEDS: hydrALAZINE HCL 25 MG TABLET GT SCH ×4 (05:21→23:46)
[2016-08-15] MEDS: VANCOMYCIN HCL 125 MG/2.5 ML ORAL.SUSP PO SCH ×4 (05:22→23:46)
[2016-08-15] MEDS: INSULIN REGULAR, HUMAN 100 UNIT/ML 3 ML VIAL SQ PRN ×2 (05:23→17:28)
--- NOTE | 2016-08-15 06:24 | NUR ---
WELCOME CENTER ATTENDANT CLOSING NOTES NO SIGNIFICANT CHANGES OVERNIGHT. ALL NEEDS ANTICIPATED AND MET. NO EPISODE OF N/V. TOLERATING GTF. NO RESPIRATORY DISTRESS. TOLERATING VENT SETTINGS. KEPT CLEAN AND DRY. TURNED AND REPOSITIONED Q2 AND PRN. ISOLATION PRECAUTIONS OBSERVED. SIDE RAILS UP AND LOCKED. BED KEPT AT LOWEST POSITION. HOB KEPT ELEVATED. WILL ENDORSE CONTINUITY OF CARE TO AM NURSE.
--- NOTE | 2016-08-15 07:00 | NUR ---
ASSISTANT DISTRIBUTION MANAGER INITIAL NOTE PT IN BED. NO S/S OF RESPIRATORY DISTRESS NOTED. ON MECH VENT TOLERATING WELL AND SATING WELL. TELE- SINUS RHYTHM 90'S. IV STAN MIDLINE CLEAN DRY AND INTACT, FLUSHING WELL. GTUBE FEEDING WELL TOLERATED WITHOUT RESIDUAL. GTUBE SITE INTACT, PATENT AND FLUSHING WELL. ISOLATION PRECAUTIONS OBSERVED. ALL SAFETY MEASURES IN PLACE. WILL CONTINUE TO MONITOR
[2016-08-15] MEDS: ACETYLCYSTEINE 10% SOLN 400 MG/4 ML VIAL NEB SCH ×3 (07:19→23:01)
[2016-08-15 07:25] LABS: CALCIUM, SERUM 9.2 mg/dL (8.5-10.1); CREATININE 6.8 mg/dL (0.6-1.3); POTASSIUM 3.9 mmol/L (3.5-5.1)
[2016-08-15 08:00] VITALS: BP 110/54
[2016-08-15] MEDS: LEVETIRACETAM SOL (5 ML) 100 MG/ML UDC GT SCH ×2 (08:28→20:16)
[2016-08-15] MEDS: CHOLESTYRAMINE/ASPARTAME 4 G/PKT PACKET GT SCH ×2 (08:28→20:17)
[2016-08-15] MEDS: VIT B CMPLX 3/FA/VIT C/BIOTIN 1 TAB TABLET GT SCH (08:28)
[2016-08-15] MEDS: FERROUS SULFATE UDC 300 MG/5 ML UDC GT SCH (08:30)
[2016-08-15] MEDS: AMLODIPINE BESYLATE 5 MG TABLET GT SCH ×2 (08:31→20:17)
[2016-08-15] MEDS: LOSARTAN POTASSIUM 50 MG TABLET GT SCH ×2 (08:32→20:17)
[2016-08-15] MEDS: PROSOURCE / PROSTAT (PYXIS) 30 ML UDC GT SCH (08:36)
[2016-08-15] MEDS: PANTOPRAZOLE 40 MG/PACK PACK GT SCH ×2 (08:36→20:17)
[2016-08-15] MEDS: ZINC SULFATE 220 MG CAPSULE GT SCH (08:36)
[2016-08-15] MEDS: NYSTATIN (PYXIS) 500,000 UNIT/5 ML ORAL.SUSP PO SCH ×3 (08:36→17:18)
[2016-08-15] MEDS: ASCORBIC ACID 500 MG TABLET GT SCH (08:36)
[2016-08-15] MEDS: HYDROGEL DRESSING 90 GM TUBE TP SCH ×2 (09:00→17:19)
[2016-08-15] MEDS: Z GUARD REMEDY 2 OZ OINT TP SCH (09:00)
[2016-08-15] MEDS: BENEFIBER 4 GM 1 EA PACKET GT SCH ×2 (09:39→17:00)
[2016-08-15] MEDS: prednisoLONE ACETATE 1% SUSP 5 ML BOTTLE LEFTEYE SCH (09:39)
[2016-08-15] MEDS: INSULIN DETEMIR 100 UNIT/ML CARTRIDGE SQ SCH (09:44)
[2016-08-15 12:00] VITALS: BP 128/67
[2016-08-15 16:00] VITALS: BP_SYST 115; BP_SYST 128; BP_DIAS 59; BP_DIAS 67
[2016-08-15] MEDS: VANCOMYCIN 500 MG in IV D5W 100 ML IV PRN (17:18)
[2016-08-15] MEDS ORDERED: SECONDARY IV SET 1 EA INFUS.SET MC ONE (17:20)
--- NOTE | 2016-08-15 19:14 | NUR ---
pt in stable condition,no c/o pain,no s/s of distress.breathing even and unlabored.all m.d orders noted and carried out.endorsed to next shift for continuity of care.
--- NOTE | 2016-08-15 19:15 | NUR ---
DISPENSING LEAD RCD PT W/DX SEPSIS; PT IS OBTUNDED. PORTEX 7 W/VENT SETTINGS AC 12 500 40% 5; PROVIDED ORAL CARE. MIN SECRETIONS NOTED. NSR 90s ON MONITOR. PT IS ANURIC. NO BM AT THIS TIME. NOVASOURCE AT 50 ML/HR NO RESIDUAL NOTED; TO BE TURNED OFF AT 2300 AND RESUMED AT 0600. STAN MIDLINE PATENT AND WITH GOOD BLOOD RETURN. HOB ELEVATED. BED LOCKED AND IN LOW POSITION.
[2016-08-15 20:00] VITALS: BP 134/63
[2016-08-15] MEDS: RENAL NOVASOURCE 1,000 ML BOTTLE GT PRN (20:16)
[2016-08-15] MEDS: ACETAMINOPHEN 650 MG/20.3 ML UDC GT PRN (20:18)
--- NOTE | 2016-08-15 20:20 | NUR ---
CREW TRUCK DRIVER TEMP 99.8 JOSE 650 ADMINISTERED; RENDERED COOLING MEASURES. CONTINUE TO MONITOR.
[2016-08-16] VITALS: BP 140/68
[2016-08-16] MEDS: IPRATROPIUM NEB FS 0.5 MG/2.5 ML AMPUL.NEB NEB SCH ×4 (00:36→19:31)
[2016-08-16] MEDS: ALBUTEROL FS 2.5 MG/3 ML VIAL.NEB NEB SCH ×4 (00:36→19:31)
[2016-08-16 04:00] VITALS: BP 141/70
[2016-08-16] MEDS: BLOOD SUGAR DIAGNOSTIC 1 EACH STRIP IN SCH ×3 (05:51→17:08)
[2016-08-16] MEDS: METRONIDAZOLE 500MG/ NS 100ML 500 MG in PREMIX 1 EA IV SCH ×3 (05:51→21:49)
[2016-08-16] MEDS: VANCOMYCIN HCL 125 MG/2.5 ML ORAL.SUSP PO SCH ×3 (05:51→17:10)
[2016-08-16] MEDS: hydrALAZINE HCL 25 MG TABLET GT SCH ×3 (05:52→17:09)
[2016-08-16 07:13] LABS: BASOPHILS % (AUTO) 0.1 % (0.0-2.0); EOSINOPHILS # (AUTO) 0.1 /CMM (0.0-0.7); EOSINOPHILS % (AUTO) 0.7 % (0.0-6.0); HEMATOCRIT 25 % (33-45); HEMOGLOBIN 8.7 g/dL (11.5-14.8); LYMPHOCYTES # (AUTO) 0.9 /CMM (0.8-4.8); LYMPHOCYTES % (AUTO) 7.9 % (20.0-44.0); MEAN CORPUSCULAR HEMOGLOBIN 30 PG (26.0-33.0); MEAN CORPUSCULAR HGB CONC 34 g/dl (31.0-36.0); MEAN CORPUSCULAR VOLUME 88 fL (82-100); MONOCYTES # (AUTO) 0.8 /CMM (0.1-1.30); MONOCYTES % (AUTO) 6.8 % (2.0-12.0); NEUTROPHILS # (AUTO) 9.9 /CMM (1.8-8.9); NEUTROPHILS % (AUTO) 84.5 % (43.0-81.0); PLATELET COUNT (AUTO) 312 /CMM (150-450); RDW COEFFICIENT OF VARIATION 15.9 (11.5-15.0); RED BLOOD CELL COUNT(AUTO) 2.86 MIL/uL (4.0-5.2); WHITE BLOOD COUNT (AUTO) 11.7 K/uL (4.3-11.0)
[2016-08-16 07:38] LABS: ALBUMIN 2.9 g/dL (3.4-5.0); BILIRUBIN,TOTAL 0.6 mg/dL (0.2-1.0); CREATININE 4.3 mg/dL (0.6-1.3); MAGNESIUM 1.8 mg/dL (1.8-2.4); PHOSPHORUS 3.3 mg/dL (2.5-4.9); POTASSIUM 4.3 mmol/L (3.5-5.1); TOTAL PROTEIN, SERUM 7.9 g/dL (6.4-8.2)
[2016-08-16] MEDS: ACETYLCYSTEINE 10% SOLN 400 MG/4 ML VIAL NEB SCH ×2 (07:50→13:32)
--- NOTE | 2016-08-16 07:55 | NUR ---
RN INITIAL NOTES PT IS IN BED, HOB 35 DEGREES ELEVATED, SIDERAILS UP, NO S/SX OF DISTRESS NOTED, IV SITE IS INTACT AND PATENT, NO S/SX OF INFECTION, SAFETY MEASURES MAINTAINED, ALL NEEDS ANTICIPATE. WILL CONTINUE TO MONITOR
[2016-08-16 08:00] VITALS: BP 116/70
[2016-08-16] MEDS: NYSTATIN (PYXIS) 500,000 UNIT/5 ML ORAL.SUSP PO SCH ×3 (08:22→17:09)
[2016-08-16] MEDS: LEVETIRACETAM SOL (5 ML) 100 MG/ML UDC GT SCH ×2 (08:22→21:50)
[2016-08-16] MEDS: PANTOPRAZOLE 40 MG/PACK PACK GT SCH ×2 (08:22→21:50)
[2016-08-16] MEDS: PROSOURCE / PROSTAT (PYXIS) 30 ML UDC GT SCH (08:23)
[2016-08-16] MEDS: BENEFIBER 4 GM 1 EA PACKET GT SCH ×2 (08:23→17:10)
[2016-08-16] MEDS: CHOLESTYRAMINE/ASPARTAME 4 G/PKT PACKET GT SCH ×2 (08:23→21:50)
[2016-08-16] MEDS: VIT B CMPLX 3/FA/VIT C/BIOTIN 1 TAB TABLET GT SCH (08:23)
[2016-08-16] MEDS: LOSARTAN POTASSIUM 50 MG TABLET GT SCH ×3 (08:24→21:00)
[2016-08-16] MEDS: FAMOTIDINE (20 MG) 20 MG TABLET GT SCH (08:24)
[2016-08-16] MEDS: ASCORBIC ACID 500 MG TABLET GT SCH (08:24)
[2016-08-16] MEDS: ZINC SULFATE 220 MG CAPSULE GT SCH (08:24)
[2016-08-16] MEDS: FERROUS SULFATE UDC 300 MG/5 ML UDC GT SCH (08:30)
[2016-08-16] MEDS: HYDROGEL DRESSING 90 GM TUBE TP SCH ×2 (08:31→17:08)
[2016-08-16] MEDS: Z GUARD REMEDY 2 OZ OINT TP SCH (08:31)
[2016-08-16] MEDS: prednisoLONE ACETATE 1% SUSP 5 ML BOTTLE LEFTEYE SCH (08:32)
[2016-08-16] MEDS: INSULIN DETEMIR 100 UNIT/ML CARTRIDGE SQ SCH (08:52)
[2016-08-16] MEDS: AMLODIPINE BESYLATE 5 MG TABLET GT SCH ×2 (08:57→21:00)
[2016-08-16 12:00] VITALS: BP_SYST 117; BP_SYST 137; BP_DIAS 73; BP_DIAS 75
[2016-08-16] MEDS: INSULIN REGULAR, HUMAN 100 UNIT/ML 3 ML VIAL SQ PRN ×2 (12:21→17:17)
[2016-08-16 16:00] VITALS: BP_SYST 127; BP_SYST 131; BP_DIAS 69; BP_DIAS 75
--- NOTE | 2016-08-16 19:20 | NUR ---
RN CLOSING NOTES PT IS BED, HOB OF ELEVATED AT 35 DEGREES. PT IS ON MECHNICAL VENT SAT 100%. PT WOUND TREATMENT PROVIDED, PT WAS TURNED AND REPOSITIONED Q2H. MIDLINE IV SITES PATENT, NO S/SX OF INFECTION/INFILTRATION, ALL MEDICATIONS GIVEN ORDERED, PT BERE IT WELL, ALL NEEDS ANTICIPATED, SAFETY MEASURES MAINTAINED. ENDORSED TO THE NIGHT NURSE.
[2016-08-16 20:00] VITALS: BP 125/75
[2016-08-16] MEDS: SCOPOLAMINE HBR 1 EA PATCH.TD72 TD SCH (22:00)
[2016-08-17] VITALS: BP 138/79
[2016-08-17] MEDS: hydrALAZINE HCL 25 MG TABLET GT SCH ×4 (00:47→17:01)
[2016-08-17] MEDS: VANCOMYCIN HCL 125 MG/2.5 ML ORAL.SUSP PO SCH ×4 (00:48→17:17)
[2016-08-17] MEDS: INSULIN REGULAR, HUMAN 100 UNIT/ML 3 ML VIAL SQ PRN ×4 (00:50→17:13)
[2016-08-17] MEDS: BLOOD SUGAR DIAGNOSTIC 1 EACH STRIP IN SCH ×4 (00:58→17:15)
[2016-08-17] MEDS: IPRATROPIUM NEB FS 0.5 MG/2.5 ML AMPUL.NEB NEB SCH ×4 (01:32→19:05)
[2016-08-17] MEDS: ALBUTEROL FS 2.5 MG/3 ML VIAL.NEB NEB SCH ×4 (01:32→19:05)
[2016-08-17] MEDS: ACETYLCYSTEINE 10% SOLN 400 MG/4 ML VIAL NEB SCH ×3 (01:32→15:21)
[2016-08-17 04:00] VITALS: BP 137/87
[2016-08-17] MEDS: METRONIDAZOLE 500MG/ NS 100ML 500 MG in PREMIX 1 EA IV SCH ×3 (04:55→21:41)
--- NOTE | 2016-08-17 06:00 | NUR ---
CUSTOMER COUNTER REPRESENTATIVE - PT. ADM. A COMP. BEDBATH AT 5AM. ORAL/TRACH/NATALYA/SKIN/WOUND/PEG CARE ADM. PT. HAS COPIOUS AMTS OF WHITE,GALDAMEZ,PINK-TINGED SECRETIONS ORALLY & MORE THICK YELLOW/TRACHEAL. PT.IS SX'D FREQUENTLY BY RN/RT STAFF. TUBE FEEDING HAS BEEN OFF SINCE [place] DUE TO ABDOMINAL U/S ORDERED. REPORT ENDORSED TO JOSE MARTIN BRAVO CONT.POC.
[2016-08-17 07:27] LABS: EOSINOPHILS % (AUTO) 0.1 % (0.0-6.0); HEMATOCRIT 23 % (33-45); HEMOGLOBIN 7.6 g/dL (11.5-14.8); LYMPHOCYTES % (AUTO) 8.4 % (20.0-44.0); MEAN CORPUSCULAR HEMOGLOBIN 30 PG (26.0-33.0); MEAN CORPUSCULAR HGB CONC 33 g/dl (31.0-36.0); MEAN CORPUSCULAR VOLUME 88 fL (82-100); MONOCYTES # (AUTO) 0.7 /CMM (0.1-1.30); MONOCYTES % (AUTO) 6.2 % (2.0-12.0); NEUTROPHILS % (AUTO) 85.3 % (43.0-81.0); PLATELET COUNT (AUTO) 292 /CMM (150-450); RDW COEFFICIENT OF VARIATION 15.1 (11.5-15.0); RED BLOOD CELL COUNT(AUTO) 2.57 MIL/uL (4.0-5.2); WHITE BLOOD COUNT (AUTO) 11.7 K/uL (4.3-11.0)
[2016-08-17 07:46] LABS: CALCIUM, SERUM 9.2 mg/dL (8.5-10.1); CREATININE 5.5 mg/dL (0.6-1.3); POTASSIUM 4.3 mmol/L (3.5-5.1)
[2016-08-17 08:00] VITALS: BP 127/65
--- NOTE | 2016-08-17 08:32 | NUR ---
telegraph service clerk note patient in bed, with trach to vent setting as ordered ambu bag at [facility] spoke with dr palumbo notifyed that hg 7.5 and bun 95 stated that hd will be done today , on tele monitor sr , with on gtube feeding but hod at this time will have abd us soon seen by rt , bed in lowest and locked position not in acute distress, will cont to monitor closely,
[2016-08-17] MEDS: ASCORBIC ACID 500 MG TABLET GT SCH (08:53)
[2016-08-17] MEDS: BENEFIBER 4 GM 1 EA PACKET GT SCH ×2 (08:53→16:48)
[2016-08-17] MEDS: NYSTATIN (PYXIS) 500,000 UNIT/5 ML ORAL.SUSP PO SCH ×3 (08:53→16:47)
[2016-08-17] MEDS: CHOLESTYRAMINE/ASPARTAME 4 G/PKT PACKET GT SCH ×2 (08:53→21:41)
[2016-08-17] MEDS: PROSOURCE / PROSTAT (PYXIS) 30 ML UDC GT SCH (08:54)
[2016-08-17] MEDS: LEVETIRACETAM SOL (5 ML) 100 MG/ML UDC GT SCH ×2 (08:54→21:39)
[2016-08-17] MEDS: FERROUS SULFATE UDC 300 MG/5 ML UDC GT SCH (08:54)
[2016-08-17] MEDS: VIT B CMPLX 3/FA/VIT C/BIOTIN 1 TAB TABLET GT SCH (08:54)
[2016-08-17] MEDS: PANTOPRAZOLE 40 MG/PACK PACK GT SCH ×2 (08:54→21:41)
[2016-08-17] MEDS: LOSARTAN POTASSIUM 50 MG TABLET GT SCH ×2 (08:54→21:00)
[2016-08-17] MEDS: HYDROGEL DRESSING 90 GM TUBE TP SCH ×2 (08:55→16:47)
[2016-08-17] MEDS: AMLODIPINE BESYLATE 5 MG TABLET GT SCH ×2 (08:55→21:00)
[2016-08-17] MEDS: INSULIN DETEMIR 100 UNIT/ML CARTRIDGE SQ SCH (08:55)
[2016-08-17] MEDS: Z GUARD REMEDY 2 OZ OINT TP SCH (08:56)
[2016-08-17] MEDS: ZINC SULFATE 220 MG CAPSULE GT SCH (09:08)
--- NOTE | 2016-08-17 09:10 | NUR ---
ENGINE LATHE SET UP OPERATOR NOTE UNABLE TO CONT HD ,HD CATH IS NOT WORKING WELL
--- NOTE | 2016-08-17 09:12 | NUR ---
telephone maintenance mechanic note on hd at this time held bp Meds
--- NOTE | 2016-08-17 09:47 | NUR ---
ENVELOPE PRESS OPERATOR NOTE PER HD NURSE UNABLE TO CONT HD AT THIS TIME CATH IS WORKING WELL DR KEN NOTIFIED
[2016-08-17] MEDS: RENAL NOVASOURCE 1,000 ML BOTTLE GT PRN (10:34)
[2016-08-17] MEDS: ACETAMINOPHEN 650 MG/20.3 ML UDC GT PRN ×2 (11:01→17:05)
--- NOTE | 2016-08-17 11:18 | NUR ---
ELECTRICAL ENGINEERING DRAFTSPERSON NOTE PER HD NURSE REMOVED 200 ML FROM HD , CHECKED T 100.4 TYLENOL VIA G TUBE GIVEN , COOLING MEASURE PROVIDED
[2016-08-17 12:00] VITALS: BP 128/67
--- NOTE | 2016-08-17 12:00 | NUR ---
GANG PLANK WORKMAN NOTE T FOR NOW 98.9, WILL CONT TO MONITOR CLOSELY
[2016-08-17] MEDS ORDERED: ALTEPLASE CATHFLO 2 MG/VIAL XX ONE ×2 (13:30→13:40)
--- NOTE | 2016-08-17 15:02 | NUR ---
HAZARDOUS WASTE MATERIAL TECHNICIAN NOTE ABDOMINAL US DOING NOW
--- NOTE | 2016-08-17 15:40 | NUR ---
TEST DESIGNER NOTE T 102.2 DR ID DOCTOR KATHI NOTIFIED COOLING MEASURE PROVIDED
--- NOTE | 2016-08-17 15:59 | NUR ---
GOVERNMENT INSTRUCTOR NOTE CALLED TO DR KEN NOTIFIED THAT PATIENT BECOME RESTLESS AND AGITATED WITH ORDER TO GIVE ATIVAN 0.5 MG Q6 HOUR PRN , ALSO SPUTUM CX CATHECTED BY RT ORDERED ,ALSO HD NURSE NICKIE HUERTA HD CATH , STATED HD WILL BE DONE TOMORROW Addendum: 08/17/16 at 1836 by JOSE MARTIN RIVAS RN SPUTUM CX CATHECTED BY RT HR AT THIS TIME 126-130
[2016-08-17 16:00] VITALS: BP 128/68
[2016-08-17] MEDS ORDERED: LORAZEPAM INJ 2 MG/ML VIAL IV PRN (16:00)
--- NOTE | 2016-08-17 16:00 | NUR ---
REPAIRER PUMP NOTE HR ON TELE MONITOR 128-130 PATINT BECOME RESTLESS RT AT BEDSIDE ,WILL CONT TO MONITOR CLOSELY
[2016-08-17] MEDS ORDERED: FEE PK DOSING 1 MIN EA MC ONE (16:03)
[2016-08-17] MEDS ORDERED: SECONDARY IV SET 1 EA INFUS.SET MC ONE ×2 (16:39→18:27)
[2016-08-17] MEDS ORDERED: IV NS 0.9% 250 ML IV ONE (16:39)
[2016-08-17 16:50] LABS: ALBUMIN 2.9 g/dL (3.4-5.0); BILIRUBIN,DIRECT 0.2 mg/dL (0.0-0.2); BILIRUBIN,TOTAL 0.6 mg/dL (0.2-1.0)
[2016-08-17 16:55] LABS: LACTIC ACID 1.8 mmol/L (0.4-2.0)
[2016-08-17] MEDS ORDERED: VANCOMYCIN 1 GM in IV D5W 250 ML IV ONE (17:00)
--- NOTE | 2016-08-17 17:03 | NUR ---
RESEARCH ELECTRICIAN NOTE BLOOD CX DONE ORDERED , DOPPLEX STUDY DONE ORDERED, SEEN BY DR SIMON AWARE THAT PATINT HAD T 102.2 WILL F\U
[2016-08-17] MEDS: PIPERACILLIN /TAZOBACTAM 2.25 G in IV D5W 50 ML IV SCH (18:26)
--- NOTE | 2016-08-17 18:28 | NUR ---
SAND CASTER NOTE T 99.5 ,ALL NEEDS ATTENDED, ON TELE MONITOR SR 100, KEEP CLEAN DRY , WILL CONT TO MONITOR CLOSELY
--- NOTE | 2016-08-17 19:40 | NUR ---
RN INITIAL NOTE RECEIVED PT IN NO ACUTE DISTRESS IN BED. PT IS OBTUNDED. PT IS ON MECHANICAL VENTILATION VIA TRACH. TRACH SITE IS CLEAN DRY AND INTACT. PT TOLERATING VENT SETTING WELL WITH O2 SAT @ 100%. PT IS ON TELE WITH SR ON THE MONITOR. PT HAS GTUBE THAT IS CLEAN DRY INTACT AND PATENT WITH FLUSH. PT TOLERATING FEEDING WELL WITH 0 RESIDUAL. PT HAS STAN MIDLINE THAT IS CLEAN DRY INTACT AND PATENT. BED IN LOW LOCK POSITION WITH RIALS UP X 2. CALL LIGHT WITHIN REACH AND ALL SAFETY MEASURES ENSURED AND CARRIED OUT. WILL CONTINUE TO MONITOR PT.
[2016-08-17 20:00] VITALS: BP 125/64
[2016-08-18] VITALS (14 sets, daily range): BP systolic 103–143; BP diastolic 60–92
--- NOTE | 2016-08-18 | NUR ---
RN NOTE GAVE ALL 0000 MEDICATION. COMPUTER BEFORE IT WAS SAVED.
[2016-08-18] MEDS: ALBUTEROL FS 2.5 MG/3 ML VIAL.NEB NEB SCH ×4 (00:31→19:49)
[2016-08-18] MEDS: IPRATROPIUM NEB FS 0.5 MG/2.5 ML AMPUL.NEB NEB SCH ×4 (00:31→19:49)
[2016-08-18] MEDS: ACETYLCYSTEINE 10% SOLN 400 MG/4 ML VIAL NEB SCH ×3 (00:31→12:38)
[2016-08-18] MEDS: INSULIN REGULAR, HUMAN 100 UNIT/ML 3 ML VIAL SQ PRN ×4 (02:06→17:34)
[2016-08-18] MEDS: VANCOMYCIN HCL 125 MG/2.5 ML ORAL.SUSP PO SCH ×4 (05:06→17:20)
[2016-08-18] MEDS: METRONIDAZOLE 500MG/ NS 100ML 500 MG in PREMIX 1 EA IV SCH ×3 (05:07→21:37)
[2016-08-18] MEDS: hydrALAZINE HCL 25 MG TABLET GT SCH ×4 (05:07→17:27)
[2016-08-18] MEDS: BLOOD SUGAR DIAGNOSTIC 1 EACH STRIP IN SCH ×4 (05:17→17:29)
--- NOTE | 2016-08-18 06:22 | NUR ---
RN [id number] NOTE PT REMAINS IN NO ACUTE DISTRESS IN BED. PT DID NOT HAVE ANY SIGNIFICANT CHANGE IN CONDITION DURING SHIFT. PT TOLERATED VENT SETTING WELL WITH O2 SAT @ 100%. ALL NEEDS MET ALL ORDERS CARRIED OUT. PT HAD 2 BOWEL MOVEMENTS AND 2/3 SAMPLES WERE TAKEN. WILL ENDORSE CARE TO AM RN FOR CONTINUITY OF CARE AND TO TAKE LAST SAMPLE OF STOOL OCCULT.
[2016-08-18] MEDS: PIPERACILLIN /TAZOBACTAM 2.25 G in IV D5W 50 ML IV SCH ×2 (06:48→17:26)
--- NOTE | 2016-08-18 07:00 | NUR ---
RN INITIAL NOTES PT IS IN BED, HOB ELEVATED AT 35 DEGREES. SIDERAILS X3, PT IS OBTUNDED. PT IS ON MECHANICAL VENT SATURATION OF 100%, IV SITES IS PATENT, NO SIGNS AND SYMPTOMS OF INFECTION OR INFILTRATION. SAFETY MEASURES MAINTAINED, ALL NEEDS ANTICIPATED.
[2016-08-18 07:16] LABS: EOSINOPHILS % (AUTO) 0.1 % (0.0-6.0); LYMPHOCYTES # (AUTO) 1.1 /CMM (0.8-4.8); LYMPHOCYTES % (AUTO) 8.4 % (20.0-44.0); MEAN CORPUSCULAR HEMOGLOBIN 30 PG (26.0-33.0); MEAN CORPUSCULAR HGB CONC 34 g/dl (31.0-36.0); MEAN CORPUSCULAR VOLUME 88 fL (82-100); MONOCYTES # (AUTO) 0.5 /CMM (0.1-1.30); MONOCYTES % (AUTO) 3.6 % (2.0-12.0); NEUTROPHILS # (AUTO) 11.4 /CMM (1.8-8.9); NEUTROPHILS % (AUTO) 87.9 % (43.0-81.0); PLATELET COUNT (AUTO) 226 /CMM (150-450); RDW COEFFICIENT OF VARIATION 15.5 (11.5-15.0); RED BLOOD CELL COUNT(AUTO) 2.27 MIL/uL (4.0-5.2)
--- NOTE | 2016-08-18 07:30 | NUR ---
RN INITIAL NOTES PT IS IN BED, HOB ELEVATED AT 35 DEGREES. SIDERAILS X3, PT I S OBTUNDED. PT IS ON 2L NS, SATURATION OF 98%, IV SITES IS PATENTNO SIGNS AND SYMPTOMS OF INFECTION OR INFILTRATION. CALL LIGHTS WITHIN REACH.
[2016-08-18 07:39] LABS: HEMATOCRIT 20 % (33-45); HEMOGLOBIN 6.8 g/dL (11.5-14.8)
[2016-08-18 07:50] LABS: ALBUMIN 2.4 g/dL (3.4-5.0); BILIRUBIN,TOTAL 0.6 mg/dL (0.2-1.0); CALCIUM, SERUM 8.8 mg/dL (8.5-10.1); CREATININE 6.4 mg/dL (0.6-1.3); PHOSPHORUS 3.4 mg/dL (2.5-4.9); POTASSIUM 4.3 mmol/L (3.5-5.1); TOTAL PROTEIN, SERUM 6.9 g/dL (6.4-8.2)
[2016-08-18] MEDS: CHOLESTYRAMINE/ASPARTAME 4 G/PKT PACKET GT SCH ×2 (09:10→21:22)
[2016-08-18] MEDS: ASCORBIC ACID 500 MG TABLET GT SCH (09:11)
[2016-08-18] MEDS: FERROUS SULFATE UDC 300 MG/5 ML UDC GT SCH (09:11)
[2016-08-18] MEDS: FAMOTIDINE (20 MG) 20 MG TABLET GT SCH (09:11)
[2016-08-18] MEDS: NYSTATIN (PYXIS) 500,000 UNIT/5 ML ORAL.SUSP PO SCH ×3 (09:11→17:26)
[2016-08-18] MEDS: PANTOPRAZOLE 40 MG/PACK PACK GT SCH ×2 (09:11→21:22)
[2016-08-18] MEDS: LEVETIRACETAM SOL (5 ML) 100 MG/ML UDC GT SCH ×2 (09:11→21:22)
[2016-08-18] MEDS: PROSOURCE / PROSTAT (PYXIS) 30 ML UDC GT SCH (09:12)
[2016-08-18] MEDS: BENEFIBER 4 GM 1 EA PACKET GT SCH ×2 (09:12→17:29)
[2016-08-18] MEDS: LOSARTAN POTASSIUM 50 MG TABLET GT SCH ×2 (09:12→21:00)
[2016-08-18] MEDS: VIT B CMPLX 3/FA/VIT C/BIOTIN 1 TAB TABLET GT SCH (09:12)
[2016-08-18] MEDS: AMLODIPINE BESYLATE 5 MG TABLET GT SCH ×2 (09:13→21:00)
[2016-08-18] MEDS: HYDROGEL DRESSING 90 GM TUBE TP SCH ×2 (09:15→17:27)
--- NOTE | 2016-08-18 09:19 | NUR ---
SETTING NO CHANGED, SUCTION DONE WITH MODERATE YELLOW WHITE SECRETION . PT UNRESPONSIVE. Addendum: 08/18/16 at 0921 by AUBREY NAIDU RT Amended: Links added.
[2016-08-18] MEDS: INSULIN DETEMIR 100 UNIT/ML CARTRIDGE SQ SCH (09:20)
[2016-08-18] MEDS: ZINC SULFATE 220 MG CAPSULE GT SCH (09:22)
[2016-08-18] MEDS: Z GUARD REMEDY 2 OZ OINT TP SCH (10:20)
--- NOTE | 2016-08-18 11:05 | NUR ---
MODERATE,THIN,YELLOW/WHITE SECRETION DURING SUCTION. NO DISTRESS. Addendum: 08/18/16 at 1107 by AUBREY NAIDU RT Amended: Links added.
[2016-08-18 11:13] LABS: LYMPHOCYTES % (MANUAL) 12 % (16-48); MONOCYTES % (MANUAL) 3 % (0-11.0); NEUTROPHILS % (MANUAL) 85 (42-76); PLATELET ESTIMATE ADEQUATE
--- NOTE | 2016-08-18 12:43 | NUR ---
tX GIVEN. VENT SET IS THE SAME BEFORE, NO DISTRESS.NO SUCTION NEED. Addendum: 08/18/16 at 1244 by AUBREY NAIDU RT Amended: Links added.
[2016-08-18] MEDS ORDERED: SECONDARY IV SET 1 EA INFUS.SET MC ONE (13:22)
--- NOTE | 2016-08-18 14:24 | NUR ---
RN NOTES; refer to Dr. Jacinto, hgb and hct level today and with orders noted and carried out. To transfuse 1 unit PRBC today, properly screened and crossmatch.
[2016-08-18] MEDS ORDERED: VANCOMYCIN 500 MG in IV D5W 100 ML IV PRN (16:00)
--- NOTE | 2016-08-18 16:30 | NUR ---
RN NOTES: Noted patient x1 bowel movement, diarrhea and black tarry stool noted, bed bath provided.
[2016-08-18] MEDS ORDERED: IV NS 0.9% 250 ML IV ONE (18:34)
[2016-08-18] MEDS ORDERED: BLOOD IV SET 1 EA INFUS.SET MC ONE (18:34)
--- NOTE | 2016-08-18 19:26 | NUR ---
RN NOTES: Blood Transfusion started x1 PRBC at 1850hrs with no ill effect. No signs and symptoms of distress noted within shift. HOB elevated, aspiration precaution observed, Gtube feeding tolerating well, with no residual noted. Comfort and safety measures provided. KEpt clean and dry. Turned and repositioned, offload heels as per protocol. Endorsed to next shift for continuity of care.
[2016-08-19] VITALS (7 sets, daily range): BP systolic 120–153; BP diastolic 65–79
[2016-08-19 00:05] LABS: BASOPHILS % (AUTO) 0.2 % (0.0-2.0); EOSINOPHILS # (AUTO) 0.2 /CMM (0.0-0.7); EOSINOPHILS % (AUTO) 1.9 % (0.0-6.0); HEMATOCRIT 22 % (33-45); HEMOGLOBIN 7.5 g/dL (11.5-14.8); LYMPHOCYTES # (AUTO) 1.1 /CMM (0.8-4.8); LYMPHOCYTES % (AUTO) 11.4 % (20.0-44.0); MEAN CORPUSCULAR HEMOGLOBIN 30 PG (26.0-33.0); MEAN CORPUSCULAR HGB CONC 34 g/dl (31.0-36.0); MEAN CORPUSCULAR VOLUME 89 fL (82-100); MONOCYTES # (AUTO) 0.6 /CMM (0.1-1.30); MONOCYTES % (AUTO) 5.9 % (2.0-12.0); NEUTROPHILS # (AUTO) 7.6 /CMM (1.8-8.9); NEUTROPHILS % (AUTO) 80.6 % (43.0-81.0); PLATELET COUNT (AUTO) 235 /CMM (150-450); RDW COEFFICIENT OF VARIATION 15.2 (11.5-15.0); RED BLOOD CELL COUNT(AUTO) 2.51 MIL/uL (4.0-5.2); WHITE BLOOD COUNT (AUTO) 9.5 K/uL (4.3-11.0)
[2016-08-19] MEDS: ACETYLCYSTEINE 10% SOLN 400 MG/4 ML VIAL NEB SCH ×3 (00:27→13:51)
[2016-08-19] MEDS: ALBUTEROL FS 2.5 MG/3 ML VIAL.NEB NEB SCH ×4 (00:32→19:26)
[2016-08-19] MEDS: IPRATROPIUM NEB FS 0.5 MG/2.5 ML AMPUL.NEB NEB SCH ×4 (00:32→19:26)
[2016-08-19] MEDS: VANCOMYCIN HCL 125 MG/2.5 ML ORAL.SUSP PO SCH ×4 (00:35→17:01)
[2016-08-19] MEDS: BLOOD SUGAR DIAGNOSTIC 1 EACH STRIP IN SCH ×5 (00:38→23:46)
[2016-08-19] MEDS: INSULIN REGULAR, HUMAN 100 UNIT/ML 3 ML VIAL SQ PRN ×5 (00:39→23:48)
--- NOTE | 2016-08-19 02:00 | NUR ---
RN NOTE PT HAD 1 BOWEL MOVEMENT WHICH WAS SOFT/LIQUID.
[2016-08-19] MEDS: METRONIDAZOLE 500MG/ NS 100ML 500 MG in PREMIX 1 EA IV SCH ×3 (04:23→21:39)
[2016-08-19] MEDS: hydrALAZINE HCL 25 MG TABLET GT SCH ×5 (05:34→23:49)
[2016-08-19] MEDS: PIPERACILLIN /TAZOBACTAM 2.25 G in IV D5W 50 ML IV SCH (05:36)
--- NOTE | 2016-08-19 07:00 | NUR ---
RN [id number] NOTE PT REMAINS IN NO ACUTE DISTRESS IN BED. PT DID NOT HAVE ANY SIGNIFICANT CHANGE IN CONDITION DURING SHIFT. PT TOLERATED VENT SETTING WELL WITH O2 SAT @ 100%. ALL NEEDS MET ALL ORDERS CARRIED OUT. PT HAD 1 BOWEL MOVEMENT WHICH WAS SOFT/ LIQUID. WILL ENDORSE CARE TO AM RN FOR CONTINUITY OF CARE.
--- NOTE | 2016-08-19 07:20 | NUR ---
RN INITIAL NOTES PT IS IN BED, HOB ELEVATED AT 35 DEGREES. SIDERAILS X3, PT IS OBTUNDED. PT IS ON MECHANICAL VENT SATURATION OF 100%, IV MIDLINE IS PATENT, NO SIGNS AND SYMPTOMS OF INFECTION OR INFILTRATION, PT IS ON GTUBE FEEDING NOVASOURCE @50ML/HR, SAFETY MEASURES MAINTAINED, ALL NEEDS ANTICIPATED
[2016-08-19 07:56] LABS: CALCIUM, SERUM 8.7 mg/dL (8.5-10.1); CREATININE 7.1 mg/dL (0.6-1.3); POTASSIUM 4.3 mmol/L (3.5-5.1)
[2016-08-19] MEDS: AMLODIPINE BESYLATE 5 MG TABLET GT SCH ×2 (08:42→21:41)
[2016-08-19] MEDS: VIT B CMPLX 3/FA/VIT C/BIOTIN 1 TAB TABLET GT SCH (08:43)
[2016-08-19] MEDS: ASCORBIC ACID 500 MG TABLET GT SCH (08:43)
[2016-08-19] MEDS: INSULIN DETEMIR 100 UNIT/ML CARTRIDGE SQ SCH (08:45)
[2016-08-19] MEDS: NYSTATIN (PYXIS) 500,000 UNIT/5 ML ORAL.SUSP PO SCH ×3 (08:47→16:29)
[2016-08-19] MEDS: PROSOURCE / PROSTAT (PYXIS) 30 ML UDC GT SCH (08:47)
[2016-08-19] MEDS: LEVETIRACETAM SOL (5 ML) 100 MG/ML UDC GT SCH ×2 (08:48→21:39)
[2016-08-19] MEDS: FERROUS SULFATE UDC 300 MG/5 ML UDC GT SCH (08:48)
[2016-08-19] MEDS: BENEFIBER 4 GM 1 EA PACKET GT SCH ×2 (08:48→16:58)
[2016-08-19] MEDS: CHOLESTYRAMINE/ASPARTAME 4 G/PKT PACKET GT SCH ×2 (08:48→21:39)
[2016-08-19] MEDS: ZINC SULFATE 220 MG CAPSULE GT SCH (08:49)
[2016-08-19] MEDS: PANTOPRAZOLE 40 MG/PACK PACK GT SCH ×2 (08:49→21:40)
[2016-08-19] MEDS: LOSARTAN POTASSIUM 50 MG TABLET GT SCH ×2 (08:50→21:41)
[2016-08-19] MEDS: HYDROGEL DRESSING 90 GM TUBE TP SCH ×2 (08:51→16:29)
[2016-08-19] MEDS: Z GUARD REMEDY 2 OZ OINT TP SCH (08:53)
[2016-08-19] MEDS ORDERED: LEVOFLOXACIN 500 MG /D5W 100ML 500 MG in PREMIX 1 EA IV ONE (15:00)
[2016-08-19] MEDS ORDERED: SECONDARY IV SET 1 EA INFUS.SET MC ONE ×2 (16:41→21:42)
--- NOTE | 2016-08-19 17:00 | NUR ---
RN NOTES: Noted patient x1 black tarry stool/diarrhea, kept clean and dry.
--- NOTE | 2016-08-19 18:57 | NUR ---
RN CLOSING NOTES PT IS IN BED, NO SIGNS AND SYMPTOMS OF DISTRESS NOTED, PT IS ON MECH VENT, SAT 100%, PT TURNED AND REPOSITIONED, KEPT SKIN CLEAN AND DRY, IV SITES PATENT, NO SIGNS AND SYMPTOMS OF INFECTION/INFILTRATION NOTED, ALL MEDICATIONS GIVEN AND PT TOLERATED IT WELL. SAFETY MEASURES MAINTAINED,ALL NEEDS ANTICIPATED, ENDORSED TO THE NIGHT NURSE
--- NOTE | 2016-08-19 20:00 | NUR ---
HOGSHEAD LINER RECEIVED PT IN BED SEMIFOWLER. OBTUNDED. NO DISTRESS OR DISCOMFORT NOTED. NO S/S OF PAIN NOTED. REMAIN ON TRACH/VENT TOLERATING THE SETTING. SUCTIONED HER PRN DRESSING ON SACRUM INTACT. STAN MIDLINE INTACT TKO. ON TELE S TECH HR 104. REPOSITION HER Q2H. KEPT HER DRY AND CLEAN. ALL NEEDS ATTENDED. REPOSITION HER Q2H. SIDE RAILS UP X 3 AND CALL LIGHT WITHIN REACH. VSS. CONTINUE TO MONITOR HER.
[2016-08-19] MEDS: SCOPOLAMINE HBR 1 EA PATCH.TD72 TD SCH (21:40)
[2016-08-20] VITALS (7 sets, daily range): BP systolic 128–145; BP diastolic 52–80
[2016-08-20] MEDS: IPRATROPIUM NEB FS 0.5 MG/2.5 ML AMPUL.NEB NEB SCH ×4 (00:39→19:30)
[2016-08-20] MEDS: ALBUTEROL FS 2.5 MG/3 ML VIAL.NEB NEB SCH ×4 (00:40→19:30)
[2016-08-20] MEDS: ACETYLCYSTEINE 10% SOLN 400 MG/4 ML VIAL NEB SCH ×3 (00:40→15:39)
[2016-08-20] MEDS: VANCOMYCIN HCL 125 MG/2.5 ML ORAL.SUSP PO SCH ×5 (01:36→23:54)
--- NOTE | 2016-08-20 04:30 | NUR ---
PRODUCT SAFETY COMPLIANCE LEADER BED BATH GIVEN. ALSO SACRAL DECUB TX GIVEN ORDERED. REPOSITION HER Q2H. KEPT HER DRY AND CLEAN.
[2016-08-20] MEDS: METRONIDAZOLE 500MG/ NS 100ML 500 MG in PREMIX 1 EA IV SCH ×2 (05:00→12:11)
[2016-08-20] MEDS: hydrALAZINE HCL 25 MG TABLET GT SCH ×3 (05:59→17:06)
[2016-08-20] MEDS: RENAL NOVASOURCE 1,000 ML BOTTLE GT PRN (06:04)
[2016-08-20] MEDS: BLOOD SUGAR DIAGNOSTIC 1 EACH STRIP IN SCH ×4 (06:14→23:53)
--- NOTE | 2016-08-20 06:38 | NUR ---
COUNTER CASER NOTE PT IN BED OBTUNDED. NO DISTRESS OR DISCOMFORT NOTED. NO S/S OF PAIN NOTED. TOLERATING VENT SETTINGS WELL. IVF TKO WELL, NO S/S OF INFILTRATION NOTED. ON TELE SR HR 89. GT INTACT AND PATENT INFUSING NOVASOURCE 50 ML/HR, 0 ML RESIDUAL NOTED. KEPT HOB ELEVATED. REPOSITION HER Q2H. KEPT HER DRY AND CLEAN. SIDE RAILS UP X 6 AND CALL LIGHT WITHIN REACH. WILL ENDORSE TO DAY SHIFT NURSE FOR CONTINUE TO CARE.
--- NOTE | 2016-08-20 07:20 | NUR ---
LIFE GUARD INITIAL NOTES: Rec'd pt awake on bed, obtunded, HOB elevated, not in any distress. Pt on mech vent via trache (Portex 7) w/ ff settings: AC 12, TV 500, FiO2 40%, PEEP 5, saturating at 100%. Suctioned secretions. On telemonitor, SR w/ HR 87 bpm. Pt has STAN midline, patent, clean, dry, intact w/ NS 250 cc x TKO, infusing well. Has R femoral HD cath dry and intact. On continuous GT feeding Novasource at 50 cc/hr, residual checked, patent and intact. Will turn, reposition and offload heels as per protocol. Call light placed w/in reached. Bed kept low and in locked position. Will continue to monitor.
[2016-08-20 07:21] LABS: CALCIUM, SERUM 8.7 mg/dL (8.5-10.1); CREATININE 4.9 mg/dL (0.6-1.3)
[2016-08-20] MEDS ORDERED: IV NS 0.9% 250 ML IV ONE (09:15)
[2016-08-20] MEDS: PROSOURCE / PROSTAT (PYXIS) 30 ML UDC GT SCH (09:21)
[2016-08-20] MEDS: CHOLESTYRAMINE/ASPARTAME 4 G/PKT PACKET GT SCH ×2 (09:21→21:12)
[2016-08-20] MEDS: LEVETIRACETAM SOL (5 ML) 100 MG/ML UDC GT SCH ×2 (09:22→21:13)
[2016-08-20] MEDS: NYSTATIN (PYXIS) 500,000 UNIT/5 ML ORAL.SUSP PO SCH ×3 (09:22→17:05)
[2016-08-20] MEDS: LOSARTAN POTASSIUM 50 MG TABLET GT SCH ×2 (09:22→21:18)
[2016-08-20] MEDS: FAMOTIDINE (20 MG) 20 MG TABLET GT SCH (09:22)
[2016-08-20] MEDS: AMLODIPINE BESYLATE 5 MG TABLET GT SCH ×2 (09:23→21:17)
[2016-08-20] MEDS: BENEFIBER 4 GM 1 EA PACKET GT SCH ×2 (09:23→17:05)
[2016-08-20] MEDS: VIT B CMPLX 3/FA/VIT C/BIOTIN 1 TAB TABLET GT SCH (09:23)
[2016-08-20] MEDS: PANTOPRAZOLE 40 MG/PACK PACK GT SCH ×2 (09:23→21:13)
[2016-08-20] MEDS: ASCORBIC ACID 500 MG TABLET GT SCH (09:23)
[2016-08-20] MEDS: FERROUS SULFATE UDC 300 MG/5 ML UDC GT SCH (09:23)
[2016-08-20] MEDS: ZINC SULFATE 220 MG CAPSULE GT SCH (09:23)
[2016-08-20] MEDS: INSULIN DETEMIR 100 UNIT/ML CARTRIDGE SQ SCH (09:27)
[2016-08-20] MEDS: Z GUARD REMEDY 2 OZ OINT TP SCH (09:28)
[2016-08-20] MEDS: HYDROGEL DRESSING 90 GM TUBE TP SCH ×2 (09:28→17:10)
[2016-08-20] MEDS: INSULIN REGULAR, HUMAN 100 UNIT/ML 3 ML VIAL SQ PRN ×2 (12:12→17:07)
[2016-08-20] MEDS ORDERED: METRONIDAZOLE 500 MG TABLET PO SCH (13:00)
--- NOTE | 2016-08-20 18:07 | NUR ---
RT NOTES: BREATHING TREATMENTS GIVEN AND TOLERATED WELL. WILL CONTINUE TO MONITOR PER MD.
--- NOTE | 2016-08-20 18:41 | NUR ---
HANDICRAFT OR HOBBY SHOP MANAGER CLOSING NOTES: No acute changes noted w/in shift. Pt obtunded, HOB elevated, not in any distress. Pt tolerated prescribed mech vent settings, saturating at 100%. Suctioned secretions. On telemonitor, SR w/ HR 85 bpm. Pt has STAN midline, patent, clean, dry, intact w/ NS 250 cc x TKO, infusing well. Has R femoral HD cath dry and intact. On continuous GT feeding Novasource at 50 cc/hr, residual checked, patent and intact. Wound care done. Turned, repositioned and offloaded heels. Call light placed w/in reached. Bed kept low and in locked position. Isolation precautions observed. Will endorse to PM RN for SHERRY.
--- NOTE | 2016-08-20 19:30 | NUR ---
RN NOTES PT RESTING WELL ON BED. WITH TRACH AND VENT SETTING OF AC 12 TV 500 FIO2 40% PEEP5 SUCTIONED WITH WHITISH/ YELLOWISH THICK SECRETION OF SPUTUM. BILATERAL BREATH SOUND DIMINISHED. OBTUNDED. ABLE TO OPEN EYES. MAXIMUM ASSISTANCE PROVIDED. SR HR 89 WITH GTF OF NOVASOURCE @ 50 CC/HR IV SITE ON STAN MIDLINE INTACT AND PATENT RIGHT FEMORAL HD CATH CLEANED AND INTACT OFFLOADED EXT WITH PILLOWS. WILL CONTINUE TO MONITOR.
[2016-08-20] MEDS: METRONIDAZOLE 500 MG TABLET PO SCH (21:14)
[2016-08-21] VITALS: BP 113/63
[2016-08-21] MEDS: ALBUTEROL FS 2.5 MG/3 ML VIAL.NEB NEB SCH ×4 (00:39→19:59)
[2016-08-21] MEDS: ACETYLCYSTEINE 10% SOLN 400 MG/4 ML VIAL NEB SCH ×4 (00:39→23:45)
[2016-08-21] MEDS: IPRATROPIUM NEB FS 0.5 MG/2.5 ML AMPUL.NEB NEB SCH ×4 (00:39→19:59)
[2016-08-21 04:00] VITALS: BP 133/69
[2016-08-21] MEDS: METRONIDAZOLE 500 MG TABLET PO SCH ×3 (05:50→21:18)
[2016-08-21] MEDS: RENAL NOVASOURCE 1,000 ML BOTTLE GT PRN (05:52)
[2016-08-21] MEDS: VANCOMYCIN HCL 125 MG/2.5 ML ORAL.SUSP PO SCH ×4 (05:53→23:31)
[2016-08-21] MEDS: BLOOD SUGAR DIAGNOSTIC 1 EACH STRIP IN SCH ×4 (05:56→23:35)
[2016-08-21] MEDS: hydrALAZINE HCL 25 MG TABLET GT SCH ×5 (05:58→23:30)
[2016-08-21] MEDS: INSULIN REGULAR, HUMAN 100 UNIT/ML 3 ML VIAL SQ PRN ×5 (06:03→23:58)
--- NOTE | 2016-08-21 07:15 | NUR ---
RN NOTES PT IN STABLE CONDITION THROUGHOUT THE SHIFT. GTF TOLERATED WELL NO N/V/D. AFEBRILE. VS STABLE. ALL DUE MEDICINE TOLERATED WELL. TRACH AND VENT SETTING TOLERATED AIRWAY PATENT. ISOLATION PRECAUTION ALWAYS MET. KEPT PT CLEAN AND COMFORTABLE IN BED. BED LOCKED AND SECURED. WILL ENDORSED CONTINUITY OF CARE TO AM NURSE.
--- NOTE | 2016-08-21 07:30 | NUR ---
initial note patient resting in bed, does not respond to name. opens eyes spontaneously. breathing with mech vent appearing stable, trach patent, minimal light yellow secretions. tele monitor reading SR 90. no emesis noted. residuals checked and received approximately 70 ml. philipp mid line patent with good blood return. skin warm, slightly moist, fan on. repositioned in functional alignment. patient contracted. call light in reach.
[2016-08-21 07:45] LABS: CALCIUM, SERUM 8.8 mg/dL (8.5-10.1); CREATININE 6.1 mg/dL (0.6-1.3); POTASSIUM 4.2 mmol/L (3.5-5.1)
[2016-08-21 08:00] VITALS: BP 96/66
[2016-08-21] MEDS: BENEFIBER 4 GM 1 EA PACKET GT SCH ×2 (08:26→16:14)
[2016-08-21] MEDS: CHOLESTYRAMINE/ASPARTAME 4 G/PKT PACKET GT SCH ×2 (08:26→21:18)
[2016-08-21] MEDS: ZINC SULFATE 220 MG CAPSULE GT SCH (08:26)
[2016-08-21] MEDS: VIT B CMPLX 3/FA/VIT C/BIOTIN 1 TAB TABLET GT SCH (08:26)
[2016-08-21] MEDS: PANTOPRAZOLE 40 MG/PACK PACK GT SCH ×2 (08:26→21:18)
[2016-08-21] MEDS: PROSOURCE / PROSTAT (PYXIS) 30 ML UDC GT SCH (08:26)
[2016-08-21] MEDS: NYSTATIN (PYXIS) 500,000 UNIT/5 ML ORAL.SUSP PO SCH ×3 (08:26→16:14)
[2016-08-21] MEDS: ASCORBIC ACID 500 MG TABLET GT SCH (08:27)
[2016-08-21] MEDS: AMLODIPINE BESYLATE 5 MG TABLET GT SCH ×2 (08:27→21:23)
[2016-08-21] MEDS: LEVETIRACETAM SOL (5 ML) 100 MG/ML UDC GT SCH ×2 (08:27→21:17)
[2016-08-21] MEDS: FERROUS SULFATE UDC 300 MG/5 ML UDC GT SCH (08:27)
[2016-08-21] MEDS: LOSARTAN POTASSIUM 50 MG TABLET GT SCH ×2 (08:27→21:22)
[2016-08-21] MEDS: Z GUARD REMEDY 2 OZ OINT TP SCH (08:28)
[2016-08-21] MEDS: HYDROGEL DRESSING 90 GM TUBE TP SCH ×2 (08:28→16:14)
[2016-08-21] MEDS: INSULIN DETEMIR 100 UNIT/ML CARTRIDGE SQ SCH (08:31)
[2016-08-21 12:00] VITALS: BP 135/85
[2016-08-21 16:00] VITALS: BP 140/78
[2016-08-21] MEDS: LEVOFLOXACIN 250 MG /D5W 50 ML 250 MG in PREMIX 1 EA IV SCH (16:14)
[2016-08-21] MEDS: METOCLOPRAMIDE HCL 10 MG/10 ML UDC GT PRN (18:58)
--- NOTE | 2016-08-21 19:00 | NUR ---
RN NOTE PAGED DR. HEMPHILL TO INFORM ABOUT GT RESIDUALS 100ML @ 1800. NOTIFIED SANDOR GAY WITH DR. WILKS OF TEMP 99.4, SHE SAID DO NOT ADMIN TYLENOL. APPLIED COOLING MEASURES, ADMINISTERED REGLAN. PENDING RESPONSE FROM
--- NOTE | 2016-08-21 19:00 | NUR ---
CLINICAL CODER OPENING NOTES RECEIVED PATIENT IN BED IN STABLE CONDITION, IV SITE INTACT WITH S/S OF INFILTRATION. NO S/S OF DISTRESS NO SOB, NO CHEST PAIN. NO S/S PAIN, GT RUNNING. SAFE FREE ENVIRONMENT PROVIDED FREE OF CLUTTERS, WILL CONTINUE TO MONITOR, ON LOW BED TO ENSURE SAFETY, CALL LIGHT WITHIN REACH.
--- NOTE | 2016-08-21 19:30 | NUR ---
CLOSING NOTE HANDED OFF REPORT TO NIGHT NURSE. INFORMED ABOUT RESIDUALS AND TEMPERATURE. DIETITIAN AWARE OF RESIDUALS. BREATHING AND LOC UNCHANGED. NO NEW WOUNDS NOTED.
[2016-08-21 20:00] VITALS: BP 145/71
[2016-08-22] VITALS (11 sets, daily range): BP systolic 110–151; BP diastolic 54–79
[2016-08-22] MEDS: ALBUTEROL FS 2.5 MG/3 ML VIAL.NEB NEB SCH ×4 (01:27→20:34)
[2016-08-22] MEDS: METRONIDAZOLE 500 MG TABLET PO SCH (05:24)
[2016-08-22] MEDS: VANCOMYCIN HCL 125 MG/2.5 ML ORAL.SUSP PO SCH ×3 (05:25→17:02)
[2016-08-22] MEDS: BLOOD SUGAR DIAGNOSTIC 1 EACH STRIP IN SCH ×3 (05:25→17:01)
[2016-08-22] MEDS: hydrALAZINE HCL 25 MG TABLET GT SCH ×3 (05:25→17:01)
[2016-08-22] MEDS: RENAL NOVASOURCE 1,000 ML BOTTLE GT PRN (06:09)
--- NOTE | 2016-08-22 06:27 | NUR ---
FOUNDRY MANAGER CLOSING NOTES PATIENT COMFORTABLY ASLEEP AND EASILY AWAKEN, OBTUNDED, ON BOOKKEEPING CLERKS SUPERVISOR WITH SR 75'S. ON MECHANICAL VENTILATOR. 100% SP02. STAN ML INTACT NO S/S OF INFECTION NOTED. RESPIRATIONS EVEN AND UNLABORED. NO S/S OF ACUTE DISTRESS, NO SOB, NO CONGESTION, SKIN WARM AND DRY TO TOUCH, AFEBRILE, ALL NURSING CARE NEEDS PROVIDED AND RENDERED, NEEDS ATTENDED AND ANTICIPATED, KEPT CLEAN AND DRY AND COMFORTABLE, BLADDER NOT DISTENDED, TREATMENT ORDERED. GOOD SKIN CARE PROVIDED. ALL DUE MEDS WAS GIVEN TOLERATED. FREQUENT VISUAL CHECK DONE FOR SAFETY EVERY 2 HOURS. SAFE HAZARD FREE ENVIRONMENT PROVIDED. CALL LIGHT WITHIN EASY TO REACH, ON LOW BED AT ALL TIMES TO ENSURE SAFETY, WILL ENDORSE TO THE NEXT SHIFT CONTINUE PLAN OF CARE. GT WAS OFF AT 2300 ORDERED YESTERDAY ON AT 0600 RUNNING AT 50 CC GT SITE NO S/S OF INFECTION NOTED. GT INFUSING AND TOLERATED WELL. REPOSITIONED EVERY 2 HOURS FOR SKIN MGT. Addendum: 08/22/16 at 0655 by ADI JOHNSON RN ADDENDUM: COOLING MEASURES PROVIDED TEMP NOW 98.9
[2016-08-22] MEDS: IPRATROPIUM NEB FS 0.5 MG/2.5 ML AMPUL.NEB NEB SCH ×4 (07:42→20:34)
[2016-08-22] MEDS: ACETYLCYSTEINE 10% SOLN 400 MG/4 ML VIAL NEB SCH ×3 (07:54→23:18)
--- NOTE | 2016-08-22 08:00 | NUR ---
ENGLISH PROFESSOR NOTE PATIENT IN BED ,ALL NEEDS ATTENDED, WITH TRACH TO VENT SETTING ORDERED , AMBU BAG AT HOB AT ALL TIME, WITH G TUBE FEEDING ORDERED ,KEEP HOB ELEVATED ,AT ALL TIME, NO RESIDUAL NOTED , RT UPPER ARM MID LINE IN PLACE, NO S\S INFECTION NOTED , BED IN LOWEST AND LOCKED POSITION , WILL CONT TO MONITOR CLOSELY
[2016-08-22] MEDS: CHOLESTYRAMINE/ASPARTAME 4 G/PKT PACKET GT SCH ×2 (08:36→21:52)
[2016-08-22] MEDS: LEVETIRACETAM SOL (5 ML) 100 MG/ML UDC GT SCH ×2 (08:37→21:52)
[2016-08-22] MEDS: LOSARTAN POTASSIUM 50 MG TABLET GT SCH ×3 (08:37→21:53)
[2016-08-22] MEDS: ZINC SULFATE 220 MG CAPSULE GT SCH (08:37)
[2016-08-22] MEDS: PROSOURCE / PROSTAT (PYXIS) 30 ML UDC GT SCH (08:37)
[2016-08-22] MEDS: NYSTATIN (PYXIS) 500,000 UNIT/5 ML ORAL.SUSP PO SCH (08:37)
[2016-08-22] MEDS: FERROUS SULFATE UDC 300 MG/5 ML UDC GT SCH (08:37)
[2016-08-22] MEDS: AMLODIPINE BESYLATE 5 MG TABLET GT SCH ×3 (08:38→21:53)
[2016-08-22] MEDS: VIT B CMPLX 3/FA/VIT C/BIOTIN 1 TAB TABLET GT SCH (08:38)
[2016-08-22] MEDS: PANTOPRAZOLE 40 MG/PACK PACK GT SCH ×2 (08:38→21:52)
[2016-08-22] MEDS: ASCORBIC ACID 500 MG TABLET GT SCH (08:38)
[2016-08-22] MEDS: HYDROGEL DRESSING 90 GM TUBE TP SCH ×2 (08:39→16:40)
[2016-08-22] MEDS: INSULIN DETEMIR 100 UNIT/ML CARTRIDGE SQ SCH (08:41)
[2016-08-22] MEDS: FAMOTIDINE (20 MG) 20 MG TABLET GT SCH (09:42)
[2016-08-22] MEDS: BENEFIBER 4 GM 1 EA PACKET GT SCH ×2 (09:42→16:39)
[2016-08-22] MEDS: Z GUARD REMEDY 2 OZ OINT TP SCH (09:43)
[2016-08-22 10:51] LABS: BASOPHILS % (AUTO) 0.1 % (0.0-2.0); EOSINOPHILS # (AUTO) 0.1 /CMM (0.0-0.7); EOSINOPHILS % (AUTO) 1.2 % (0.0-6.0); HEMATOCRIT 22 % (33-45); HEMOGLOBIN 7.4 g/dL (11.5-14.8); LYMPHOCYTES # (AUTO) 0.9 /CMM (0.8-4.8); LYMPHOCYTES % (AUTO) 14.4 % (20.0-44.0); MEAN CORPUSCULAR HEMOGLOBIN 30 PG (26.0-33.0); MEAN CORPUSCULAR HGB CONC 34 g/dl (31.0-36.0); MEAN CORPUSCULAR VOLUME 88 fL (82-100); MONOCYTES # (AUTO) 0.6 /CMM (0.1-1.30); MONOCYTES % (AUTO) 10.5 % (2.0-12.0); NEUTROPHILS # (AUTO) 4.5 /CMM (1.8-8.9); NEUTROPHILS % (AUTO) 73.8 % (43.0-81.0); PLATELET COUNT (AUTO) 203 /CMM (150-450); RDW COEFFICIENT OF VARIATION 15.1 (11.5-15.0); RED BLOOD CELL COUNT(AUTO) 2.45 MIL/uL (4.0-5.2); WHITE BLOOD COUNT (AUTO) 6.1 K/uL (4.3-11.0)
--- NOTE | 2016-08-22 11:12 | NUR ---
CRIME SCENE INVESTIGATOR NOTE SEEN BY DR ENRIQUEZ WITH ODER TO HAVE HD , WILL MONITOR CLOSELY
[2016-08-22] MEDS: INSULIN REGULAR, HUMAN 100 UNIT/ML 3 ML VIAL SQ PRN ×2 (11:58→17:25)
--- NOTE | 2016-08-22 12:32 | NUR ---
telemarketing sales representative note called to dr johnson notified that hg 7.4with order to transfuse 1 unit prbc
[2016-08-22] MEDS: METRONIDAZOLE 500MG/ NS 100ML 500 MG in PREMIX 1 EA IV SCH ×2 (12:42→21:53)
[2016-08-22] MEDS ORDERED: BLOOD IV SET 1 EA INFUS.SET MC ONE (14:56)
[2016-08-22] MEDS ORDERED: IV NS 0.9% 250 ML IV ONE (14:56)
--- NOTE | 2016-08-22 15:00 | NUR ---
CHIROPRACTIC NEUROLOGIST NOTE SEEN BY RT , BREATHING TX DONE ORDERED , KEEP CLEAN DRY MADE BM , ALL NEEDS ATTENDED
--- NOTE | 2016-08-22 15:35 | NUR ---
MARINE FARMER NOTE 1 ST UNIT PRBC START TO TRANSFUSE , NO ADVERSE REACTION NOTED
--- NOTE | 2016-08-22 18:33 | NUR ---
BUTCHERETTE NOTE BLOOD TRANSFUSION 1 [id number] UNIT COMPLETED, NO ADVERSE REACTION NOTED , KEEP CLEAN DRY
[2016-08-22] MEDS: SCOPOLAMINE HBR 1 EA PATCH.TD72 TD SCH (21:52)
[2016-08-23] VITALS: BP 144/77
[2016-08-23] MEDS: hydrALAZINE HCL 25 MG TABLET GT SCH ×4 (00:52→18:00)
[2016-08-23] MEDS: VANCOMYCIN HCL 125 MG/2.5 ML ORAL.SUSP PO SCH ×4 (00:52→18:10)
[2016-08-23] MEDS: BLOOD SUGAR DIAGNOSTIC 1 EACH STRIP IN SCH ×4 (00:52→18:10)
[2016-08-23] MEDS: INSULIN REGULAR, HUMAN 100 UNIT/ML 3 ML VIAL SQ PRN ×4 (00:53→18:12)
[2016-08-23] MEDS: ALBUTEROL FS 2.5 MG/3 ML VIAL.NEB NEB SCH ×4 (01:46→19:58)
[2016-08-23] MEDS: IPRATROPIUM NEB FS 0.5 MG/2.5 ML AMPUL.NEB NEB SCH ×4 (01:46→19:58)
[2016-08-23 04:00] VITALS: BP 135/71
[2016-08-23] MEDS: METRONIDAZOLE 500MG/ NS 100ML 500 MG in PREMIX 1 EA IV SCH ×3 (05:23→20:47)
--- NOTE | 2016-08-23 06:41 | NUR ---
RN [id number] NOTE PT REMAINS IN NO ACUTE DISTRESS IN BED. PT DID NOT HAVE ANY SIGNIFICANT CHANGE IN CONDITION DURING SHIFT. PT TOLERATED VENT SETTING WELL WITH O2 SAT @ 100%. ALL NEEDS MET, ALL ORDERS CARRIED OUT. PT HAD 1 BOWEL MOVEMENT WHICH WAS SOFT/ LIQUID. WILL ENDORSE CARE TO AM RN FOR CONTINUITY OF CARE.
--- NOTE | 2016-08-23 07:20 | NUR ---
RN INITIAL NOTES RECEIVED PT IN BED, OBTUNDED, [facility], PORTEX #7 AC 12 TV 500 TV 500 FIO2 40% PEEP 5, SATING WELL, NO S/S OF RESP. DISTRESS OR SOB NOTED AT THIS TIME, PT IS ON TELE MONITOR SHOWING SR @ 79 BPM, NO C/O CHEST PAIN OR DISCOMFORT AT THIS TIME, PT IS NOTED WITH SKIN ISSUES, PT HAS STAN MIDLINE, SL, C/D/I/PATENT, FLUSHING WELL, NO S/S OF INFECTION/ INFILTRATION NOTED AT THIS TIME, R FEMORAL HD CATH, DRESSING INTACT, DRY AND CLEAN, GTUBE FEEDING RUNNING ORDERED, TOLERATING WELL, NO RESIDUALS NOTED AT THIS TIME, ISOLATION PRECAUTIONS OBSERVED AT ALL TIMES, ALL SAFETY MEASURES IN PLACE AT ALL TIMES, CALL LIGHT WITHIN EASY REACH, WILL MONITOR PT CLOSELY FOR CHANGES
[2016-08-23] MEDS: ACETYLCYSTEINE 10% SOLN 400 MG/4 ML VIAL NEB SCH ×3 (07:26→22:47)
[2016-08-23 08:00] VITALS: BP 131/59
[2016-08-23] MEDS: LOSARTAN POTASSIUM 50 MG TABLET GT SCH ×2 (09:00→20:49)
[2016-08-23] MEDS: AMLODIPINE BESYLATE 5 MG TABLET GT SCH ×2 (09:00→20:49)
--- NOTE | 2016-08-23 09:30 | NUR ---
RN NOTES PT IS CURRENTLY RECEIVING HD AT THIS TIME, BP MEDICATIONS WERE HELD
[2016-08-23 09:43] LABS: HEPATITIS B CORE AB, IgM Negative (Negative); HEPATITIS B CORE AB, TOTAL Negative (Negative); HEPATITIS B SURFACE AB Reactive (.); HEPATITIS C VIRUS AB <0.1 s/co ratio (0.0-0.9)
[2016-08-23] MEDS: INSULIN DETEMIR 100 UNIT/ML CARTRIDGE SQ SCH (10:04)
[2016-08-23] MEDS: CHOLESTYRAMINE/ASPARTAME 4 G/PKT PACKET GT SCH ×2 (10:05→20:48)
[2016-08-23] MEDS: ZINC SULFATE 220 MG CAPSULE GT SCH (10:05)
[2016-08-23] MEDS: FERROUS SULFATE UDC 300 MG/5 ML UDC GT SCH (10:05)
[2016-08-23] MEDS: ASCORBIC ACID 500 MG TABLET GT SCH (10:05)
[2016-08-23] MEDS: BENEFIBER 4 GM 1 EA PACKET GT SCH ×2 (10:05→18:07)
[2016-08-23] MEDS: LEVETIRACETAM SOL (5 ML) 100 MG/ML UDC GT SCH ×2 (10:05→20:47)
[2016-08-23] MEDS: PANTOPRAZOLE 40 MG/PACK PACK GT SCH ×2 (10:05→20:48)
[2016-08-23] MEDS: PROSOURCE / PROSTAT (PYXIS) 30 ML UDC GT SCH (10:05)
[2016-08-23] MEDS: VIT B CMPLX 3/FA/VIT C/BIOTIN 1 TAB TABLET GT SCH (10:05)
[2016-08-23] MEDS: Z GUARD REMEDY 2 OZ OINT TP SCH (10:06)
[2016-08-23] MEDS: HYDROGEL DRESSING 90 GM TUBE TP SCH ×2 (10:06→18:09)
[2016-08-23 12:00] VITALS: BP 147/52
[2016-08-23] MEDS: LEVOFLOXACIN 250 MG /D5W 50 ML 250 MG in PREMIX 1 EA IV SCH (15:30)
[2016-08-23 16:00] VITALS: BP 119/50
--- NOTE | 2016-08-23 18:22 | NUR ---
RN CLOSING NOTES PT REMAINED STABLE DURING SHIFT, ALL MD ORDERS CARRIED OUT, PT KEPT CLEAN AND DRY, ISOLATIONS PRECAUTIONS OBSERVED AT ALL TIME,ALL SAFETY MEASURES IN PLACE AT ALL TIMES, CALL LIGHT WITHIN EASY REACH, WILL GIVE PM RN FOR SHERRY
--- NOTE | 2016-08-23 19:30 | NUR ---
INTERACTIVE PRODUCER INITIAL NOTE PT RECEIVED SLEEPING IN BED. ON [facility] VENT TOLERATING SETTINGS AND SATING WELL. OBTUNDED. TELE-SINUS RHYTHM 90'S. GTUBE FEEDING WELL TOLERATED WITH NO RESIDUAL. GTUBE SITE CLEAN DRY AND INTACT. NO S/S OF INFECTION NOTED AT THIS TIME. IV STAN MIDLINE FLUSHING WELL AND PATENT. R FEMORAL HD CATH CLEAN AND INTACT. ISOLATION PRECAUTION OBSERVED. WILL CONTINUE TO MONITOR.
[2016-08-23 20:00] VITALS: BP 151/70
[2016-08-23] MEDS ORDERED: IV NS 0.9% 250 ML IV ONE (20:56)
[2016-08-24] VITALS: BP 150/77
[2016-08-24] MEDS: VANCOMYCIN HCL 125 MG/2.5 ML ORAL.SUSP PO SCH ×4 (00:39→17:40)
[2016-08-24] MEDS: hydrALAZINE HCL 25 MG TABLET GT SCH ×4 (00:39→17:40)
[2016-08-24] MEDS: BLOOD SUGAR DIAGNOSTIC 1 EACH STRIP IN SCH ×4 (00:39→17:41)
[2016-08-24] MEDS: INSULIN REGULAR, HUMAN 100 UNIT/ML 3 ML VIAL SQ PRN ×4 (00:47→17:44)
[2016-08-24] MEDS: IPRATROPIUM NEB FS 0.5 MG/2.5 ML AMPUL.NEB NEB SCH ×4 (02:09→19:23)
[2016-08-24] MEDS: ALBUTEROL FS 2.5 MG/3 ML VIAL.NEB NEB SCH ×4 (02:09→19:23)
[2016-08-24 04:00] VITALS: BP 142/84
[2016-08-24] MEDS: METRONIDAZOLE 500MG/ NS 100ML 500 MG in PREMIX 1 EA IV SCH ×3 (05:18→21:10)
[2016-08-24] MEDS: RENAL NOVASOURCE 1,000 ML BOTTLE GT PRN (05:42)
--- NOTE | 2016-08-24 06:30 | NUR ---
LABOR RELATIONS DIRECTOR CLOSING NOTE PT REMAINED STABLE DURING SHIFT. [facility] VENT SETTINGS WELL TOLERATED. ISOLATION PRECAUTIONS OBSERVED. ALL SAFETY MEASURES IN PLACE. ALL DUE MEDS GIVEN ORDERED AND WELL TOLERATED. WILL ENDORSE TO NEXT SHIFT FOR SHERRY.
[2016-08-24] MEDS: ACETYLCYSTEINE 10% SOLN 400 MG/4 ML VIAL NEB SCH ×3 (07:45→23:48)
[2016-08-24 08:00] VITALS: BP 125/64
[2016-08-24 08:28] LABS: BASOPHILS % (AUTO) 0.2 % (0.0-2.0); EOSINOPHILS # (AUTO) 0.3 /CMM (0.0-0.7); EOSINOPHILS % (AUTO) 3.3 % (0.0-6.0); HEMATOCRIT 26 % (33-45); HEMOGLOBIN 8.8 g/dL (11.5-14.8); LYMPHOCYTES % (AUTO) 12.6 % (20.0-44.0); MEAN CORPUSCULAR HEMOGLOBIN 30 PG (26.0-33.0); MEAN CORPUSCULAR HGB CONC 34 g/dl (31.0-36.0); MEAN CORPUSCULAR VOLUME 89 fL (82-100); MONOCYTES # (AUTO) 0.6 /CMM (0.1-1.30); MONOCYTES % (AUTO) 7.1 % (2.0-12.0); NEUTROPHILS # (AUTO) 6.1 /CMM (1.8-8.9); NEUTROPHILS % (AUTO) 76.8 % (43.0-81.0); PLATELET COUNT (AUTO) 217 /CMM (150-450); RDW COEFFICIENT OF VARIATION 14.9 (11.5-15.0); RED BLOOD CELL COUNT(AUTO) 2.95 MIL/uL (4.0-5.2)
[2016-08-24 08:44] LABS: CREATININE 4.8 mg/dL (0.6-1.3); MAGNESIUM 2.1 mg/dL (1.8-2.4); PHOSPHORUS 2.9 mg/dL (2.5-4.9); POTASSIUM 4.2 mmol/L (3.5-5.1)
[2016-08-24] MEDS: CHOLESTYRAMINE/ASPARTAME 4 G/PKT PACKET GT SCH ×2 (09:07→21:12)
[2016-08-24] MEDS: PROSOURCE / PROSTAT (PYXIS) 30 ML UDC GT SCH (09:07)
[2016-08-24] MEDS: LEVETIRACETAM SOL (5 ML) 100 MG/ML UDC GT SCH ×2 (09:07→21:11)
[2016-08-24] MEDS: LOSARTAN POTASSIUM 50 MG TABLET GT SCH ×2 (09:07→21:13)
[2016-08-24] MEDS: BENEFIBER 4 GM 1 EA PACKET GT SCH ×2 (09:07→17:40)
[2016-08-24] MEDS: FERROUS SULFATE UDC 300 MG/5 ML UDC GT SCH (09:07)
[2016-08-24] MEDS: VIT B CMPLX 3/FA/VIT C/BIOTIN 1 TAB TABLET GT SCH (09:08)
[2016-08-24] MEDS: FAMOTIDINE (20 MG) 20 MG TABLET GT SCH (09:08)
[2016-08-24] MEDS: PANTOPRAZOLE 40 MG/PACK PACK GT SCH ×2 (09:08→21:10)
[2016-08-24] MEDS: ASCORBIC ACID 500 MG TABLET GT SCH (09:08)
[2016-08-24] MEDS: ZINC SULFATE 220 MG CAPSULE GT SCH (09:08)
[2016-08-24] MEDS: AMLODIPINE BESYLATE 5 MG TABLET GT SCH ×2 (09:08→21:13)
[2016-08-24] MEDS: Z GUARD REMEDY 2 OZ OINT TP SCH (09:09)
[2016-08-24] MEDS: HYDROGEL DRESSING 90 GM TUBE TP SCH ×2 (09:09→17:41)
[2016-08-24] MEDS: INSULIN DETEMIR 100 UNIT/ML CARTRIDGE SQ SCH (09:11)
--- NOTE | 2016-08-24 10:00 | NUR ---
RN INITIAL NOTES: Rec'd pt from [facility]. Pt is obtunded, not in any form of distress. Pt on mech vent via trache (Portex 7) w/ ff settings: AC 12, TV 500, FiO2 40%, PEEP 5, no SOB, saturating at 100%. Suctioned secretions. On telemonitor, SR w/ HR 83 bpm. Pt has patent & intact PEG, on continuous feeding Novasource at 50 cc/hr, no residuals noted upon checking. Pt has STAN midline, flushed, patent, C/D/I, no signs of infection/ infiltration noted. Has R femoral HD cath in place, C/D/I. Turning, repositioning, and offloading of heels done. Provided comfort and safe environment. Call light placed w/in reached. Bed kept low & in locked position. Isolation precaution observed. Will closely monitor.
--- NOTE | 2016-08-24 10:51 | NUR ---
RN NOTES: Pt seen & examined by Dr. Salguero.
[2016-08-24 12:00] VITALS: BP 143/68
[2016-08-24 16:00] VITALS: BP_SYST 112; BP_SYST 132; BP_DIAS 52; BP_DIAS 62
--- NOTE | 2016-08-24 18:00 | NUR ---
RN NOTES: Pt had large loose bowel movement. MARLENY Yo made aware.
--- NOTE | 2016-08-24 18:48 | NUR ---
RN CLOSING NOTES: No acute changes noted w/in shift. Pt is obtunded, not in any form of distress. Pt tolerated prescribed mech vent settings, saturating at 100%. Suctioned secretions. Pt remains on SR w/ HR 86 bpm. On continuous feeding Novasource at 50 cc/hr via PEG, no residuals noted upon checking. Pt's STAN midline, flushed, patent, C/D/I, no signs of infection/ infiltration noted. R femoral HD cath in place, C/D/I. Turned, repositioned & offloaded heels. Kept well rested & comfortable. Call light placed w/in reached. Bed kept low & in locked position. Isolation precaution observed. Will endorse to PM RN for SHERRY.
--- NOTE | 2016-08-24 19:30 | NUR ---
ELECTROPHYSIOLOGY SCIENTIST INITIAL NOTE PT RECEIVED RESTING IN BED. ON [facility] VENT WITH ALL SETTINGS WELL TOLERATED AND SATING WELL. TELE- SINUS RHYTHM 90'S. ISOLATION PRECAUTIONS OBSERVED. IV SITE CLEAN AND INTACT, FLUSHING WELL, PATENT. GTUBE FEEDING WELL TOLERATED WITH 10 Addendum: 08/24/16 at 2033 by KAMILLA AMBROSE RN 10ML RESIDUAL NOTED. GTUBE SITE CLEAN, DRY AND INTACT WITH NO S/S OF INFECTION. R FEMORAL HD CATH INTACT AND DRESSING CLEAN. WILL CONTINUE TO MONITOR.
[2016-08-24 20:00] VITALS: BP 136/64
[2016-08-25] VITALS: BP 119/50
[2016-08-25] MEDS: VANCOMYCIN HCL 125 MG/2.5 ML ORAL.SUSP PO SCH ×4 (00:36→17:00)
[2016-08-25] MEDS: BLOOD SUGAR DIAGNOSTIC 1 EACH STRIP IN SCH ×4 (00:36→17:02)
[2016-08-25] MEDS: INSULIN REGULAR, HUMAN 100 UNIT/ML 3 ML VIAL SQ PRN ×4 (00:42→17:00)
[2016-08-25] MEDS: IPRATROPIUM NEB FS 0.5 MG/2.5 ML AMPUL.NEB NEB SCH ×4 (01:36→19:28)
[2016-08-25] MEDS: ALBUTEROL FS 2.5 MG/3 ML VIAL.NEB NEB SCH ×4 (01:36→19:28)
[2016-08-25] MEDS ORDERED: IV NS 0.9% 250 ML IV ONE (03:35)
[2016-08-25 04:00] VITALS: BP_SYST 132; BP_SYST 136; BP_DIAS 64
[2016-08-25] MEDS: METRONIDAZOLE 500MG/ NS 100ML 500 MG in PREMIX 1 EA IV SCH (05:47)
[2016-08-25] MEDS: hydrALAZINE HCL 25 MG TABLET GT SCH ×4 (05:47→17:01)
[2016-08-25] MEDS: RENAL NOVASOURCE 1,000 ML BOTTLE GT PRN (05:54)
--- NOTE | 2016-08-25 06:35 | NUR ---
FORESTRY CONSERVATION WORKER CLOSING NOTE PT REMAINED STABLE DURING SHIFT. SATING WELL. TREATMENT DONE. ISOLATION PRECAUTIONS OBSERVED. WILL ENDORSE TO NEXT SHIFT FOR SHERRY.
--- NOTE | 2016-08-25 07:00 | NUR ---
RN NOTES: RECEIVED PT ON BED, OBTUNDED, VENT DEPENDENT , TRACH CARE DONE, TOLERATING CURRENT SETTING WELL, ON TELE SR , GTF WITH NOVASOURCE AT AT 50CC/HR NO RESIDUAL NOTED, R UPPER ARM MID LINE SITE CDI, R FEMORAL HD CATH IN PLACE, SR UP x3, CALL LIGHT WITHIN EASY REACH , BED LOCKED AND IN LOWEST POSITION, WILL CONTINUE TO MONITOR PT CLOSELY AND NOTIFY MD FOR ANY SINGICANT CHANGE
[2016-08-25 07:19] LABS: BASOPHILS % (AUTO) 0.1 % (0.0-2.0); EOSINOPHILS # (AUTO) 0.2 /CMM (0.0-0.7); EOSINOPHILS % (AUTO) 3.3 % (0.0-6.0); HEMATOCRIT 24 % (33-45); HEMOGLOBIN 8.2 g/dL (11.5-14.8); LYMPHOCYTES # (AUTO) 0.7 /CMM (0.8-4.8); LYMPHOCYTES % (AUTO) 10.1 % (20.0-44.0); MEAN CORPUSCULAR HEMOGLOBIN 30 PG (26.0-33.0); MEAN CORPUSCULAR HGB CONC 34 g/dl (31.0-36.0); MEAN CORPUSCULAR VOLUME 89 fL (82-100); MONOCYTES # (AUTO) 0.4 /CMM (0.1-1.30); MONOCYTES % (AUTO) 6.3 % (2.0-12.0); NEUTROPHILS # (AUTO) 5.7 /CMM (1.8-8.9); NEUTROPHILS % (AUTO) 80.2 % (43.0-81.0); PLATELET COUNT (AUTO) 215 /CMM (150-450); RDW COEFFICIENT OF VARIATION 15.3 (11.5-15.0); RED BLOOD CELL COUNT(AUTO) 2.73 MIL/uL (4.0-5.2); WHITE BLOOD COUNT (AUTO) 7.1 K/uL (4.3-11.0)
[2016-08-25] MEDS: ACETYLCYSTEINE 10% SOLN 400 MG/4 ML VIAL NEB SCH ×3 (07:22→23:51)
[2016-08-25 07:57] LABS: CREATININE 5.9 mg/dL (0.6-1.3); MAGNESIUM 2.2 mg/dL (1.8-2.4); PHOSPHORUS 3.7 mg/dL (2.5-4.9); POTASSIUM 4.3 mmol/L (3.5-5.1)
[2016-08-25 08:00] VITALS: BP 126/69
[2016-08-25] MEDS: BENEFIBER 4 GM 1 EA PACKET GT SCH ×2 (08:27→17:01)
[2016-08-25] MEDS: ZINC SULFATE 220 MG CAPSULE GT SCH (08:28)
[2016-08-25] MEDS: FERROUS SULFATE UDC 300 MG/5 ML UDC GT SCH (08:28)
[2016-08-25] MEDS: VIT B CMPLX 3/FA/VIT C/BIOTIN 1 TAB TABLET GT SCH (08:28)
[2016-08-25] MEDS: PROSOURCE / PROSTAT (PYXIS) 30 ML UDC GT SCH (08:28)
[2016-08-25] MEDS: LEVETIRACETAM SOL (5 ML) 100 MG/ML UDC GT SCH ×2 (08:28→21:04)
[2016-08-25] MEDS: ASCORBIC ACID 500 MG TABLET GT SCH (08:29)
[2016-08-25] MEDS: LOSARTAN POTASSIUM 50 MG TABLET GT SCH ×3 (08:29→21:04)
[2016-08-25] MEDS: CHOLESTYRAMINE/ASPARTAME 4 G/PKT PACKET GT SCH ×2 (08:30→21:04)
[2016-08-25] MEDS: AMLODIPINE BESYLATE 5 MG TABLET GT SCH ×2 (08:30→21:04)
[2016-08-25] MEDS: PANTOPRAZOLE 40 MG/PACK PACK GT SCH ×2 (08:31→21:04)
[2016-08-25] MEDS: INSULIN DETEMIR 100 UNIT/ML CARTRIDGE SQ SCH (08:32)
[2016-08-25] MEDS: Z GUARD REMEDY 2 OZ OINT TP SCH (08:34)
[2016-08-25] MEDS: HYDROGEL DRESSING 90 GM TUBE TP SCH ×2 (08:35→17:02)
[2016-08-25 12:00] VITALS: BP 145/62
--- NOTE | 2016-08-25 12:00 | NUR ---
RN NOTES PT , STABLE , TOLERATING TF WELL, NOT RESIDUAL NOTED, CONTINUE TO MONITOR
[2016-08-25] MEDS: METRONIDAZOLE 500 MG TABLET GT SCH ×2 (12:23→21:04)
[2016-08-25] MEDS: LEVOFLOXACIN 250 MG /D5W 50 ML 250 MG in PREMIX 1 EA IV SCH (14:39)
[2016-08-25] MEDS ORDERED: EPOETIN ALFA (10,000 UNIT) 10,000 UNIT/ML VIAL SQ ONE (15:00)
[2016-08-25 16:00] VITALS: BP 141/70
--- NOTE | 2016-08-25 18:24 | NUR ---
RN NOTES TRACH CARE DONE , PT REMAINS THE SAME TOLERATING TF WELL , NO RESIDUAL NOTED, R UPPER ARM PICC LINE CDI, MEDICATED PER MD ORDER , NO SIGNIFICANT CHANGES NOTED ON THIS SHIFT .
--- NOTE | 2016-08-25 19:30 | NUR ---
AUTOMOTIVE GLASS TECHNICIAN INITIAL NOTE PT RECEIVED IN BED ON MECH VENT WITH SETTINGS WELL TOLERATED AND SATING WELL. OBTUNDED. TELE-SINUS RHYTHM 90'S. IV STAN MIDLINE FLUSHING WELL AND PATENT. R FEMORAL HD CATH CLEAN AND INTACT. GTUBE FEEDING WELL TOLERATED WITH NO RESIDUAL. GTUBE SITE CLEAN, DRY AND INTACT. ISOLATION PRECAUTIONS OBSERVED. WILL CONTINUE TO MONITOR.
[2016-08-25 20:00] VITALS: BP 139/57
[2016-08-25] MEDS: SCOPOLAMINE HBR 1 EA PATCH.TD72 TD SCH (21:05)
[2016-08-26] VITALS (7 sets, daily range): BP systolic 123–138; BP diastolic 55–69
[2016-08-26] MEDS: VANCOMYCIN HCL 125 MG/2.5 ML ORAL.SUSP PO SCH ×4 (00:20→17:00)
[2016-08-26] MEDS: BLOOD SUGAR DIAGNOSTIC 1 EACH STRIP IN SCH ×4 (00:20→17:00)
[2016-08-26] MEDS: hydrALAZINE HCL 25 MG TABLET GT SCH ×4 (00:20→17:01)
[2016-08-26] MEDS: INSULIN REGULAR, HUMAN 100 UNIT/ML 3 ML VIAL SQ PRN ×3 (00:25→17:02)
[2016-08-26] MEDS: IPRATROPIUM NEB FS 0.5 MG/2.5 ML AMPUL.NEB NEB SCH ×4 (01:16→20:22)
[2016-08-26] MEDS: ALBUTEROL FS 2.5 MG/3 ML VIAL.NEB NEB SCH ×4 (01:16→20:22)
[2016-08-26] MEDS ORDERED: IV NS 0.9% 250 ML IV ONE (05:04)
[2016-08-26] MEDS: METRONIDAZOLE 500 MG TABLET GT SCH ×2 (05:18→12:05)
[2016-08-26] MEDS: RENAL NOVASOURCE 1,000 ML BOTTLE GT PRN ×2 (05:22→16:50)
--- NOTE | 2016-08-26 06:39 | NUR ---
VP LEGAL AFFAIRS CLOSING NOTE. PT REMAINED STABLE DURING SHIFT.MECH VENT AND WELL TOLERATED. NO ACUTE DISTRESS NOTED. ISOLATION PRECAUTIONS OBSERVED. ALL DUE MEDS GIVEN ORDERED AND WELL TOLERATED. TREATMENT DONE. IV SITE INTACT AND FLUSHING WELL. R FEMORAL HD CATH CLEAN AND INTACT. ALL SAFETY MEASURES IN PLACE. WILL ENDORSE TO NEXT SHIFT FOR SHERRY.
--- NOTE | 2016-08-26 07:15 | NUR ---
RN INITIAL NOTES RECEIVED PT IN BED, OBTUNDED, PT IS ON [facility] VENT, PORTEX # 7 AC 12 TV 500 FIO2 40% PEEP 5, SATING WELL, NO S/S OF RESP. DISTRESS OR SOB NOTED AT THIS TIME, PT IS ON TELE MONITOR SHOWING SR 88, NO S/S OF PAIN OR DISCOMFORT AT THIS TIME, PT IS NOTED WITH SKIN ISSUES, HAS G TUBE, RUNNING NOVASOURCE @ 50ML/HR,TOLERATING WELL, NO RESIDUALS NOTED AT THIS TIME, PATENT/ INTACT, FLUSHING WELL, PT HAS STAN MIDLINE, SL, C/D/I/PATENT, FLUSHING WELL, NO INFECTION/ INFILTRATION NOTED AT THIS TIME, R FEMORAL HD CATH, DRESSING INTACT, CLEAN AND DRY, ISOLATION PRECAUTIONS OBSERVED AT ALL TIMES,ALL SAFETY MEASURES IN PLACE AT ALL TIMES, CALL LIGHT WITHIN EASY REACH, WILL MONITOR PT CLOSELY FOR CHANGES.
[2016-08-26] MEDS: ACETYLCYSTEINE 10% SOLN 400 MG/4 ML VIAL NEB SCH ×3 (07:35→23:30)
[2016-08-26] MEDS: PROSOURCE / PROSTAT (PYXIS) 30 ML UDC GT SCH (08:12)
[2016-08-26] MEDS: BENEFIBER 4 GM 1 EA PACKET GT SCH ×2 (08:12→16:50)
[2016-08-26] MEDS: PANTOPRAZOLE 40 MG/PACK PACK GT SCH ×2 (08:12→21:39)
[2016-08-26] MEDS: HYDROGEL DRESSING 90 GM TUBE TP SCH ×2 (08:12→16:52)
[2016-08-26] MEDS: Z GUARD REMEDY 2 OZ OINT TP SCH (08:12)
[2016-08-26] MEDS: LEVETIRACETAM SOL (5 ML) 100 MG/ML UDC GT SCH ×2 (08:13→21:38)
[2016-08-26] MEDS: ZINC SULFATE 220 MG CAPSULE GT SCH (08:13)
[2016-08-26] MEDS: VIT B CMPLX 3/FA/VIT C/BIOTIN 1 TAB TABLET GT SCH (08:13)
[2016-08-26] MEDS: FERROUS SULFATE UDC 300 MG/5 ML UDC GT SCH (08:13)
[2016-08-26] MEDS: FAMOTIDINE (20 MG) 20 MG TABLET GT SCH (08:13)
[2016-08-26] MEDS: CHOLESTYRAMINE/ASPARTAME 4 G/PKT PACKET GT SCH ×2 (08:13→21:38)
[2016-08-26] MEDS: ASCORBIC ACID 500 MG TABLET GT SCH (08:13)
[2016-08-26] MEDS: INSULIN DETEMIR 100 UNIT/ML CARTRIDGE SQ SCH (08:14)
[2016-08-26] MEDS: LOSARTAN POTASSIUM 50 MG TABLET GT SCH ×2 (08:16→21:00)
[2016-08-26] MEDS: AMLODIPINE BESYLATE 5 MG TABLET GT SCH ×2 (08:17→21:38)
--- NOTE | 2016-08-26 18:44 | NUR ---
RN CLOSING NOTES PT REMAINED STABLE DURING SHIFT, ALL MD ORDERS CARRIED OUT, ALL MEDICATIONS GIVEN, ALL TREATMENTS CARRIED OUT, PT KEPT CLEAN AND DRY, IV REMAINS INTACT, G TUBE RUNNING FEEDING ORDERED, ALL SAFETY MEASURES IN PLACE AT ALL TIMES, CALL LIGHT WITHIN EASY REACH, REPORT WILL BE GIVEN TO PM RN FOR SHERRY
--- NOTE | 2016-08-26 19:35 | NUR ---
TELE INITIAL RN NOTES PT IS IN BED, HOB ELEVATED AT 35 DEGREES ANGLE, PT IS OBTUNDED, ON MECHANICAL VENT SATURATING AT 100%. NO S/SX OF RESPIRATORY DISTRESS NOTED. ON CONTINOUS FEEDING, GT IS INTACT, O RESIDUAL NOTED. IV SITES ON THE STAN IS FLUSHED AND PATENT, CDI. BED IN LOWEST POSITION, SIDERAILS UP, AL SAFETY MEASURES MAINTAINED.
[2016-08-27] VITALS (9 sets, daily range): BP systolic 122–148; BP diastolic 50–80
[2016-08-27] MEDS: hydrALAZINE HCL 25 MG TABLET GT SCH ×5 (00:13→23:33)
[2016-08-27] MEDS: BLOOD SUGAR DIAGNOSTIC 1 EACH STRIP IN SCH ×4 (00:13→17:36)
[2016-08-27] MEDS: VANCOMYCIN HCL 125 MG/2.5 ML ORAL.SUSP PO SCH ×5 (00:13→23:32)
[2016-08-27] MEDS: INSULIN REGULAR, HUMAN 100 UNIT/ML 3 ML VIAL SQ PRN ×4 (00:19→23:43)
[2016-08-27] MEDS: ACETYLCYSTEINE 10% SOLN 400 MG/4 ML VIAL NEB SCH ×4 (02:09→23:54)
[2016-08-27] MEDS: ALBUTEROL FS 2.5 MG/3 ML VIAL.NEB NEB SCH ×4 (02:09→20:05)
[2016-08-27] MEDS: IPRATROPIUM NEB FS 0.5 MG/2.5 ML AMPUL.NEB NEB SCH ×4 (02:09→20:05)
[2016-08-27 06:49] LABS: BASOPHILS % (AUTO) 0.2 % (0.0-2.0); EOSINOPHILS # (AUTO) 0.3 /CMM (0.0-0.7); HEMATOCRIT 25 % (33-45); HEMOGLOBIN 8.6 g/dL (11.5-14.8); LYMPHOCYTES # (AUTO) 1.1 /CMM (0.8-4.8); LYMPHOCYTES % (AUTO) 12.8 % (20.0-44.0); MEAN CORPUSCULAR HEMOGLOBIN 31 PG (26.0-33.0); MEAN CORPUSCULAR HGB CONC 35 g/dl (31.0-36.0); MEAN CORPUSCULAR VOLUME 89 fL (82-100); MONOCYTES # (AUTO) 0.5 /CMM (0.1-1.30); MONOCYTES % (AUTO) 5.2 % (2.0-12.0); NEUTROPHILS % (AUTO) 78.8 % (43.0-81.0); PLATELET COUNT (AUTO) 202 /CMM (150-450); RDW COEFFICIENT OF VARIATION 15.3 (11.5-15.0); RED BLOOD CELL COUNT(AUTO) 2.82 MIL/uL (4.0-5.2); WHITE BLOOD COUNT (AUTO) 8.9 K/uL (4.3-11.0)
[2016-08-27 07:08] LABS: ALBUMIN 2.8 g/dL (3.4-5.0); BILIRUBIN,TOTAL 0.6 mg/dL (0.2-1.0); CALCIUM, SERUM 9.5 mg/dL (8.5-10.1); POTASSIUM 4.8 mmol/L (3.5-5.1); TOTAL PROTEIN, SERUM 7.3 g/dL (6.4-8.2)
--- NOTE | 2016-08-27 07:24 | NUR ---
TELE CLOSING RN NOTES NO SIGNIFICANT CHANGES, ALL MEDS GIVEN, PT TOLERATING IT WELL, TOLERATING VENT SETTINGS, NO RESPIRATORY DISTRESS NOTED, TRACH DONE. GTUBE FEEDING 2300 OFF AND 0600 ON. WOUND TREATMENT PROVIDED ORDERED, KEPT CLEAN AND DRY. TURNED AND REPOSITIONED EVERY 2 HOURS, AND PRN. HOB KEPT ELEVATED. WILL ENDORSE TO AM NURSE FOR CONTINUITY OF CARE.
--- NOTE | 2016-08-27 07:35 | NUR ---
RN INITIAL NOTES: Received patient on bed during rounds, asleep but easily arousable, obtunded,not able to make needs known, needs anticipated and attended. With STAN midline flushed with NS and patent. With Vent and trach setting are the following AC 12 TV 500 FIO2 40% Peep5 saturating well at 99-100%. NPO maintained. With Gtube in placed, no residual noted, checked for patency, Novasource at 50cc/hr tolerating well. NO SOB, No LOC, respirations are even and unlabored, no acute distress noted. Kept clean and dry. Provided safety and comfort measures. Bed low and locked position, fall precaution observed. Will turn and reposition, offload heels as per protocol. Suction secretions PRN. To continue to monitor accordingly.
[2016-08-27] MEDS: BENEFIBER 4 GM 1 EA PACKET GT SCH ×2 (09:10→17:36)
[2016-08-27] MEDS: VIT B CMPLX 3/FA/VIT C/BIOTIN 1 TAB TABLET GT SCH (09:11)
[2016-08-27] MEDS: AMLODIPINE BESYLATE 5 MG TABLET GT SCH ×2 (09:11→21:02)
[2016-08-27] MEDS: PANTOPRAZOLE 40 MG/PACK PACK GT SCH ×2 (09:11→21:02)
[2016-08-27] MEDS: PROSOURCE / PROSTAT (PYXIS) 30 ML UDC GT SCH (09:11)
[2016-08-27] MEDS: FERROUS SULFATE UDC 300 MG/5 ML UDC GT SCH (09:11)
[2016-08-27] MEDS: LOSARTAN POTASSIUM 50 MG TABLET GT SCH ×2 (09:11→21:03)
[2016-08-27] MEDS: CHOLESTYRAMINE/ASPARTAME 4 G/PKT PACKET GT SCH ×2 (09:12→21:02)
[2016-08-27] MEDS: ASCORBIC ACID 500 MG TABLET GT SCH (09:12)
[2016-08-27] MEDS: ZINC SULFATE 220 MG CAPSULE GT SCH (09:12)
[2016-08-27] MEDS: INSULIN DETEMIR 100 UNIT/ML CARTRIDGE SQ SCH (09:13)
[2016-08-27] MEDS: LEVETIRACETAM SOL (5 ML) 100 MG/ML UDC GT SCH ×2 (09:15→21:02)
[2016-08-27] MEDS: Z GUARD REMEDY 2 OZ OINT TP SCH (09:16)
[2016-08-27] MEDS: HYDROGEL DRESSING 90 GM TUBE TP SCH ×2 (09:16→17:37)
--- NOTE | 2016-08-27 16:00 | NUR ---
RN NOTES; HD RN Ahmad noted to do HD today after an hr, will give Levofloxacin IV after HD.
--- NOTE | 2016-08-27 18:45 | NUR ---
RN NOTES; Patient remain stable within shift, no signs and symptoms of distress noted. On going HD as of this time, tolerating well so far. Levaquin ATB will be given after HD. Hydralazine not given low BP, not within parameters. Right midline dressing done as per protocol, kept clean and dry. to endorsed to next shift for continuity of care.
[2016-08-27] MEDS: LEVOFLOXACIN 250 MG /D5W 50 ML 250 MG in PREMIX 1 EA IV SCH (19:22)
[2016-08-28] VITALS (7 sets, daily range): BP systolic 120–140; BP diastolic 54–73
[2016-08-28] MEDS: IPRATROPIUM NEB FS 0.5 MG/2.5 ML AMPUL.NEB NEB SCH ×4 (01:45→19:17)
[2016-08-28] MEDS: ALBUTEROL FS 2.5 MG/3 ML VIAL.NEB NEB SCH ×4 (01:45→19:17)
[2016-08-28] MEDS: hydrALAZINE HCL 25 MG TABLET GT SCH ×3 (05:39→17:20)
[2016-08-28] MEDS: VANCOMYCIN HCL 125 MG/2.5 ML ORAL.SUSP PO SCH ×3 (05:39→21:52)
[2016-08-28] MEDS: BLOOD SUGAR DIAGNOSTIC 1 EACH STRIP IN SCH ×4 (05:49→18:56)
[2016-08-28] MEDS: RENAL NOVASOURCE 1,000 ML BOTTLE GT PRN (05:57)
--- NOTE | 2016-08-28 07:15 | NUR ---
RN INITIAL NOTE PT RECEIVED IN BED RESTING COMFORTABLY. SO S/S OF PAIN OR DISCOMFORT. PT IS AWAKE, OBTUNDED, NON VERBAL. PT HAS TRACH. PORTEX #7, AC-12, TV-500, FI02-40, PEEP 5. RESPIRATIONS ARE EVEN AND UNLABORED, NO EVIDENCE OF SOB, OR RESPIRATORY DISTRESS. PT IS SINUS TACH ON TELE MONITOR. SKIN WARM, SLIGHT MOIST TO TOUCH. RIGHT UPPER ARM MIDLINE FLUSHED, PATENT. DRESSING C/D/I. GTUBE HAS NO RESIDUAL. NOVASOURCE FEEDING AT 50ML/HR. SAFETY MEASURES IMPLEMENTED AT ALL TIMES. BED IN LOCKED, LOW POSITION. TWO SIDE RAILS UP. BELONGINGS AND CALL LIGHT WITHIN REACH. WILL CONTINUE TO MONITOR.
[2016-08-28] MEDS: ACETYLCYSTEINE 10% SOLN 400 MG/4 ML VIAL NEB SCH ×3 (08:02→22:39)
[2016-08-28] MEDS: LEVETIRACETAM SOL (5 ML) 100 MG/ML UDC GT SCH ×2 (08:59→21:51)
[2016-08-28] MEDS: PANTOPRAZOLE 40 MG/PACK PACK GT SCH ×2 (08:59→21:52)
[2016-08-28] MEDS: PROSOURCE / PROSTAT (PYXIS) 30 ML UDC GT SCH (08:59)
[2016-08-28] MEDS: BENEFIBER 4 GM 1 EA PACKET GT SCH ×2 (09:00→17:20)
[2016-08-28] MEDS: FERROUS SULFATE UDC 300 MG/5 ML UDC GT SCH (09:00)
[2016-08-28] MEDS: ZINC SULFATE 220 MG CAPSULE GT SCH (09:01)
[2016-08-28] MEDS: CHOLESTYRAMINE/ASPARTAME 4 G/PKT PACKET GT SCH ×2 (09:01→21:52)
[2016-08-28] MEDS: ASCORBIC ACID 500 MG TABLET GT SCH (09:01)
[2016-08-28] MEDS: VIT B CMPLX 3/FA/VIT C/BIOTIN 1 TAB TABLET GT SCH (09:01)
[2016-08-28] MEDS: FAMOTIDINE (20 MG) 20 MG TABLET GT SCH (09:01)
[2016-08-28] MEDS: INSULIN DETEMIR 100 UNIT/ML CARTRIDGE SQ SCH (09:03)
[2016-08-28] MEDS: LOSARTAN POTASSIUM 50 MG TABLET GT SCH ×2 (09:04→22:00)
[2016-08-28] MEDS: AMLODIPINE BESYLATE 5 MG TABLET GT SCH ×2 (09:04→22:00)
[2016-08-28] MEDS: Z GUARD REMEDY 2 OZ OINT TP SCH (09:27)
[2016-08-28] MEDS: HYDROGEL DRESSING 90 GM TUBE TP SCH ×2 (09:27→17:20)
--- NOTE | 2016-08-28 10:40 | NUR ---
WOUND CARE CONSULT CALLED TO ASSESS THE LEFT LATERAL HEEL NEAR THE CALLUS. VENT DEPENDENT PATIENT, IMMOBILE, BILATERAL LEGS CONTRACTURES, ON HAIR ISOFLEX BIA BED, CABRERA 10. SEE TODAY'S SKIN ASSESSMENT IN PCS ALONG WITH RECOMMENDATIONS DISCUSSED WITH NURSING STAFF. RECOMMEND PRESSURE PREVENTION MEASURES, TURN AND REPOSITION EVERY 2 HRS PATIENT CONDITION PERMITS, OFFLOAD BOTH HEELS. MD IN AGREEMENT WITH PLAN OF CARE. Addendum: 08/28/16 at 1043 by BETH TANG WNDNU Amended: Links added.
--- NOTE | 2016-08-28 12:00 | NUR ---
RN NOTE HELP B/P MEDS. PT RECEIVING DIALYSIS
--- NOTE | 2016-08-28 18:59 | NUR ---
RN CLOSING NOTES ALL MD ORDERS CARRIED. PATIENT KEPT CLEAN AND DRY. SAFETY PRECAUTIONS OBSERVED AT ALL TIMES. REPORT WILL BE GIVEN TO PM RN FOR SHERRY.
--- NOTE | 2016-08-28 19:30 | NUR ---
RN NOTES RECEIVED PT RESTING ON BED WITH TRACH PORTEX 7 CONNECTED TO VENT SETTING OF AC 12 TV 500 FIO2 40% PEEP 5. OBTUNDED, OPENS EYES. SR HR 90 ON TELE MONITOR. GTF OF NOVASOURCE @ 50 CC/HR TOLERATED WELL. PATENCY CHECKED, ZERO RESIDUAL. IV SITE ON STAN MIDLINE INTACT AND PATENT AND RIGHT FEMORAL HD CATH WITH CLEANED DRESSING. KEPT PT CLEAN AND COMFORTABLE ION BED. REDUCED PRESSURE TO BONY PROMINENCE AREA. OFFLOADED EXT WITH PILLOWS. WILL CONTINUE TO MONITOR.
[2016-08-28] MEDS: SCOPOLAMINE HBR 1 EA PATCH.TD72 TD SCH (22:00)
[2016-08-29] VITALS: BP 142/73
[2016-08-29] MEDS: hydrALAZINE HCL 25 MG TABLET GT SCH ×5 (00:49→23:51)
[2016-08-29] MEDS: BLOOD SUGAR DIAGNOSTIC 1 EACH STRIP IN SCH ×5 (00:52→23:50)
[2016-08-29] MEDS: IPRATROPIUM NEB FS 0.5 MG/2.5 ML AMPUL.NEB NEB SCH ×4 (01:10→19:36)
[2016-08-29] MEDS: ALBUTEROL FS 2.5 MG/3 ML VIAL.NEB NEB SCH ×4 (01:10→19:36)
[2016-08-29 04:00] VITALS: BP 136/64
[2016-08-29] MEDS: VANCOMYCIN HCL 125 MG/2.5 ML ORAL.SUSP PO SCH ×3 (05:58→20:40)
[2016-08-29] MEDS: RENAL NOVASOURCE 1,000 ML BOTTLE GT PRN (06:04)
--- NOTE | 2016-08-29 07:00 | NUR ---
RN NOTES RECEIVED PT RESTING ON BED WITH TRACH PORTEX 7 CONNECTED TO VENT SETTING OF AC 12 TV 500 FIO2 40% PEEP 5. OBTUNDED, OPENS EYES. SR HR 90 ON TELE MONITOR. GTF OF NOVASOURCE @ 50 CC/HR TOLERATED WELL. PATENCY CHECKED, ZERO RESIDUAL. IV SITE ON STAN MIDLINE INTACT AND PATENT AND RIGHT FEMORAL HD CATH WITH CLEANED DRESSING.SAFETY MEASURES IN PLACE,BED IN LOW AND LOCKED POSITION. OFFLOADED EXT WITH PILLOWS. WILL CONTINUE TO MONITOR.
--- NOTE | 2016-08-29 07:20 | NUR ---
RN NOTES PT REMAINE DIN STABLE CONDITION THROUGHOUT THE SHIFT, NO SIGNIFICANT CHANGES . ENDORSED CONTINUITY OF CARE TO AM NURSE.
[2016-08-29] MEDS: ACETYLCYSTEINE 10% SOLN 400 MG/4 ML VIAL NEB SCH ×3 (07:36→23:41)
--- NOTE | 2016-08-29 07:39 | NUR ---
Received female claudia pt on mechanical vent. Pt claudia is secure. Vent is plugged into a red outlet, alarms are set and audible. BVM is at bedside. Addendum: 08/29/16 at 0740 by JORDEN BARTH RT Amended: Links added.
[2016-08-29 08:00] VITALS: BP 116/69
[2016-08-29] MEDS: FERROUS SULFATE UDC 300 MG/5 ML UDC GT SCH (09:08)
[2016-08-29] MEDS: PROSOURCE / PROSTAT (PYXIS) 30 ML UDC GT SCH (09:08)
[2016-08-29] MEDS: VIT B CMPLX 3/FA/VIT C/BIOTIN 1 TAB TABLET GT SCH (09:08)
[2016-08-29] MEDS: LEVETIRACETAM SOL (5 ML) 100 MG/ML UDC GT SCH ×2 (09:08→20:40)
[2016-08-29] MEDS: CHOLESTYRAMINE/ASPARTAME 4 G/PKT PACKET GT SCH ×2 (09:08→20:40)
[2016-08-29] MEDS: AMLODIPINE BESYLATE 5 MG TABLET GT SCH ×2 (09:09→20:40)
[2016-08-29] MEDS: LOSARTAN POTASSIUM 50 MG TABLET GT SCH ×2 (09:09→20:40)
[2016-08-29] MEDS: PANTOPRAZOLE 40 MG/PACK PACK GT SCH ×2 (09:09→20:40)
[2016-08-29] MEDS: ZINC SULFATE 220 MG CAPSULE GT SCH (09:09)
[2016-08-29] MEDS: ASCORBIC ACID 500 MG TABLET GT SCH (09:10)
[2016-08-29] MEDS: INSULIN DETEMIR 100 UNIT/ML CARTRIDGE SQ SCH (09:22)
[2016-08-29] MEDS: BENEFIBER 4 GM 1 EA PACKET GT SCH ×2 (09:23→18:02)
[2016-08-29] MEDS: HYDROGEL DRESSING 90 GM TUBE TP SCH ×2 (09:23→16:29)
[2016-08-29] MEDS: Z GUARD REMEDY 2 OZ OINT TP SCH (09:24)
[2016-08-29 12:00] VITALS: BP 132/68
[2016-08-29] MEDS: LEVOFLOXACIN 500 MG /D5W 100ML 500 MG in PREMIX 1 EA IV SCH (13:50)
[2016-08-29] MEDS ORDERED: LEVOFLOXACIN 250 MG /D5W 50 ML 250 MG in PREMIX 1 EA IV SCH (15:00)
[2016-08-29 16:00] VITALS: BP 137/63
--- NOTE | 2016-08-29 19:30 | NUR ---
VISUAL SPECIALIST INITIAL NOTE RECEIVED PT RESTING WITH FAMILY AT BEDSIDE. [facility] AND TOLERATING ALL SETTINGS WELL. TELE-SINUS RHYTHM 90'S. IV STAN MIDLINE FLUSHING WELL AND PATENT. R FEMORAL HD CATH CLEAN AND INTACT. GTUBE FEEDING WELL TOLERATED AND WITHOUT RESIDUAL. GTUBE SITE CLEAN, DRY AND INTACT. ISOLATION PRECAUTIONS OBSERVED. WILL CONTINUE TO MONITOR.
[2016-08-29 20:00] VITALS: BP 140/63
[2016-08-29] MEDS ORDERED: IV SET PRIMARY PUMP SET 1 EA INFUS.SET MC ONE (20:47)
[2016-08-29] MEDS ORDERED: IV NS 0.9% 250 ML IV ONE (20:47)
[2016-08-29] MEDS: INSULIN REGULAR, HUMAN 100 UNIT/ML 3 ML VIAL SQ PRN (23:57)
[2016-08-30] VITALS: BP 142/69
[2016-08-30] MEDS: ALBUTEROL FS 2.5 MG/3 ML VIAL.NEB NEB SCH ×4 (01:58→19:46)
[2016-08-30] MEDS: IPRATROPIUM NEB FS 0.5 MG/2.5 ML AMPUL.NEB NEB SCH ×4 (01:59→19:46)
[2016-08-30 04:00] VITALS: BP 130/58
[2016-08-30] MEDS: VANCOMYCIN HCL 125 MG/2.5 ML ORAL.SUSP PO SCH ×3 (05:39→21:52)
[2016-08-30] MEDS: hydrALAZINE HCL 25 MG TABLET GT SCH ×3 (05:40→18:13)
[2016-08-30] MEDS: BLOOD SUGAR DIAGNOSTIC 1 EACH STRIP IN SCH ×3 (05:40→18:14)
[2016-08-30] MEDS: RENAL NOVASOURCE 1,000 ML BOTTLE GT PRN (05:42)
--- NOTE | 2016-08-30 07:00 | NUR ---
COW BUYER INITIAL NOTE RECEIVED PT RESTING WITH FAMILY AT BEDSIDE. [facility] AND TOLERATING ALL SETTINGS WELL. TELE-SINUS RHYTHM 90'S. IV STAN MIDLINE FLUSHING WELL AND PATENT. R FEMORAL HD CATH CLEAN AND INTACT. GTUBE FEEDING WELL TOLERATED AND WITHOUT RESIDUAL. GTUBE SITE CLEAN, DRY AND INTACT. ISOLATION PRECAUTIONS OBSERVED. WILL CONTINUE TO MONITOR.
--- NOTE | 2016-08-30 07:00 | NUR ---
ASSIGNMENT DESK ASSISTANT CLOSING NOTE UT REMAINED STABLE DURING SHIFT. VENT SETTINGS WELL TOLERATED. ISOLATION PRECAUTIONS OBSERVED. GTUBE WITHOUT RESIDUAL AND FLUSHING WELL. DIALYSIS NURSE AT BEDSIDE. WILL ENDORSE TO NEXT SHIFT FOR SHERRY.
[2016-08-30 08:00] VITALS: BP 140/77
[2016-08-30] MEDS: ACETYLCYSTEINE 10% SOLN 400 MG/4 ML VIAL NEB SCH ×2 (08:03→14:48)
[2016-08-30] MEDS: ASCORBIC ACID 500 MG TABLET GT SCH (09:07)
[2016-08-30] MEDS: FAMOTIDINE (20 MG) 20 MG TABLET GT SCH (09:07)
[2016-08-30] MEDS: PANTOPRAZOLE 40 MG/PACK PACK GT SCH ×2 (09:07→21:51)
[2016-08-30] MEDS: ZINC SULFATE 220 MG CAPSULE GT SCH (09:07)
[2016-08-30] MEDS: LOSARTAN POTASSIUM 50 MG TABLET GT SCH ×3 (09:08→21:51)
[2016-08-30] MEDS: AMLODIPINE BESYLATE 5 MG TABLET GT SCH ×3 (09:08→21:51)
[2016-08-30] MEDS: FERROUS SULFATE UDC 300 MG/5 ML UDC GT SCH (09:08)
[2016-08-30] MEDS: BENEFIBER 4 GM 1 EA PACKET GT SCH ×2 (09:08→16:37)
[2016-08-30] MEDS: VIT B CMPLX 3/FA/VIT C/BIOTIN 1 TAB TABLET GT SCH (09:08)
[2016-08-30] MEDS: PROSOURCE / PROSTAT (PYXIS) 30 ML UDC GT SCH (09:09)
[2016-08-30] MEDS: LEVETIRACETAM SOL (5 ML) 100 MG/ML UDC GT SCH ×2 (09:15→21:51)
[2016-08-30] MEDS: CHOLESTYRAMINE/ASPARTAME 4 G/PKT PACKET GT SCH ×2 (09:20→21:51)
[2016-08-30] MEDS: HYDROGEL DRESSING 90 GM TUBE TP SCH ×2 (09:22→15:27)
[2016-08-30] MEDS: INSULIN DETEMIR 100 UNIT/ML CARTRIDGE SQ SCH (09:22)
[2016-08-30] MEDS: Z GUARD REMEDY 2 OZ OINT TP SCH (09:22)
[2016-08-30] MEDS: ACETAMINOPHEN 650 MG/20.3 ML UDC GT PRN (11:33)
[2016-08-30 12:00] VITALS: BP 138/67
[2016-08-30 16:00] VITALS: BP_SYST 123; BP_SYST 140; BP_DIAS 50; BP_DIAS 77
--- NOTE | 2016-08-30 19:07 | NUR ---
RN INITIAL NOTES RECEIVED PATIENT IN BED, AWAKE, POOR EYE TRACKING NOTED, PATIENT IS OBTUNDED. PATIENT ON TELE MONITORING, SR WITH HR OF 96. WITH MECH VENT ON TRACH. TRACH IS C/D/I, MIDLINE. AIRWAY SUCTIONED NEEDED, PATIENT SATURATING WELL AT 100%. WITH GT, C/D/I, FLUSHED AND KEPT PATENT. HOB ELEVATED. STAN MIDLINE INTACT, FLUSHED AND PATENT. R FEMORAL HD CATH WITH DRESSING INTACT, NO DISCHARGE NOTED. PATIENT REPOSITIONED. SAFETY AND COMFORT ENSURED. BED IN LOW AND LOCKED POSITION. ISOLATION PRECAUTION OBSERVED. WILL MONITOR.
[2016-08-30 20:00] VITALS: BP 124/70
[2016-08-31] VITALS: BP 131/63
--- NOTE | 2016-08-31 01:00 | NUR ---
ASLEEP,AROUSABLE,SKIN WARM DRY TO TOUCH COLOR IS FAIR. B/S ARE EQUAL CRACKLES,SECRETIONS,YELLOWISH. TOLERATING CURRENT VENTILATOR SETTINGS. VENTILATOR ALARMS ARE AUDIBLE AND FUNCTIONAL.POWER PLUGGED TO RED WALL OUTLET. CONTINUE MECHANICAL VENTILATOR SUPPORT. RADHA HUGHES. Addendum: 08/31/16 at 0104 by CAROL HUANG RT Amended: Links added.
[2016-08-31] MEDS: BLOOD SUGAR DIAGNOSTIC 1 EACH STRIP IN SCH ×4 (01:01→17:58)
[2016-08-31] MEDS: INSULIN REGULAR, HUMAN 100 UNIT/ML 3 ML VIAL SQ PRN ×4 (01:02→18:04)
[2016-08-31] MEDS: ACETYLCYSTEINE 10% SOLN 400 MG/4 ML VIAL NEB SCH ×4 (01:30→23:24)
[2016-08-31] MEDS: ALBUTEROL FS 2.5 MG/3 ML VIAL.NEB NEB SCH ×4 (01:31→20:32)
[2016-08-31] MEDS: IPRATROPIUM NEB FS 0.5 MG/2.5 ML AMPUL.NEB NEB SCH ×4 (01:31→20:32)
[2016-08-31 04:00] VITALS: BP 126/70
[2016-08-31] MEDS ORDERED: IV NS 0.9% 250 ML IV ONE (04:15)
[2016-08-31] MEDS: VANCOMYCIN HCL 125 MG/2.5 ML ORAL.SUSP PO SCH ×3 (05:58→21:33)
[2016-08-31] MEDS: hydrALAZINE HCL 25 MG TABLET GT SCH ×4 (05:58→17:57)
[2016-08-31] MEDS: RENAL NOVASOURCE 1,000 ML BOTTLE GT PRN (06:00)
[2016-08-31 06:19] LABS: BASOPHILS % (AUTO) 0.1 % (0.0-2.0); EOSINOPHILS % (AUTO) 0.2 % (0.0-6.0); HEMATOCRIT 22 % (33-45); HEMOGLOBIN 7.6 g/dL (11.5-14.8); LYMPHOCYTES # (AUTO) 0.9 /CMM (0.8-4.8); LYMPHOCYTES % (AUTO) 9.8 % (20.0-44.0); MEAN CORPUSCULAR HEMOGLOBIN 31 PG (26.0-33.0); MEAN CORPUSCULAR HGB CONC 34 g/dl (31.0-36.0); MEAN CORPUSCULAR VOLUME 89 fL (82-100); MONOCYTES # (AUTO) 0.7 /CMM (0.1-1.30); MONOCYTES % (AUTO) 7.3 % (2.0-12.0); NEUTROPHILS # (AUTO) 7.6 /CMM (1.8-8.9); NEUTROPHILS % (AUTO) 82.6 % (43.0-81.0); PLATELET COUNT (AUTO) 239 /CMM (150-450); RDW COEFFICIENT OF VARIATION 14.8 (11.5-15.0); RED BLOOD CELL COUNT(AUTO) 2.48 MIL/uL (4.0-5.2); WHITE BLOOD COUNT (AUTO) 9.2 K/uL (4.3-11.0)
--- NOTE | 2016-08-31 06:55 | NUR ---
RN CLOSING NOTES PATIENT IN BED, WITH NO ACUTE DISTRESS OBSERVED OVERNIGHT. PATIENT'S AIRWAY SUCTIONED NEEDED. ORAL CARE RENDERED. TRACH CARE DONE. TOLERATED GT FEEDING WELL, NO GASTRIC RESIDUAL NOTED. REMAINS SR ON TELE MONITOR. BS MONITORED AND COVERED WITH INSULIN ORDERED. PATIENT TURNED AND REPOSITIONED [id number]. PATIENT'S NEEDS ANTICIPATED AND MET. SAFETY AND COMFORT ENSURED. BED IN LOW AND LOCKED POSITION. WILL ENDORSE ACCORDINGLY FOR CONTINUITY OF CARE.
[2016-08-31 07:16] LABS: CALCIUM, SERUM 8.4 mg/dL (8.5-10.1); CREATININE 5.7 mg/dL (0.6-1.3); MAGNESIUM 2.2 mg/dL (1.8-2.4); PHOSPHORUS 3.2 mg/dL (2.5-4.9); POTASSIUM 4.2 mmol/L (3.5-5.1)
--- NOTE | 2016-08-31 07:20 | NUR ---
RN INITIAL NOTES: Received patient on bed during rounds, asleep but easily arousable, obtunded,not able to make needs known, needs anticipated and attended. With STAN midline flushed with NS and patent. With Vent and trach setting are the following AC 12 TV 500 FIO2 40% Peep5 saturating well at 99-100%. NPO maintained. With Gtube in placed, no residual noted, checked for patency, Novasource at 50cc/hr tolerating well, no residual noted. NO SOB, No LOC, respirations are even and unlabored, no acute distress noted. Kept clean and dry. Provided safety and comfort measures. Bed low and locked position, fall precaution observed. Will turn and reposition, offload heels as per protocol. Suction secretions PRN. Contact precaution observed. To continue to monitor accordingly.
[2016-08-31 08:00] VITALS: BP 116/52
[2016-08-31] MEDS: LEVETIRACETAM SOL (5 ML) 100 MG/ML UDC GT SCH ×2 (08:42→21:33)
[2016-08-31] MEDS: VIT B CMPLX 3/FA/VIT C/BIOTIN 1 TAB TABLET GT SCH (08:42)
[2016-08-31] MEDS: LOSARTAN POTASSIUM 50 MG TABLET GT SCH ×2 (08:42→21:35)
[2016-08-31] MEDS: FERROUS SULFATE UDC 300 MG/5 ML UDC GT SCH (08:42)
[2016-08-31] MEDS: BENEFIBER 4 GM 1 EA PACKET GT SCH ×2 (08:42→17:58)
[2016-08-31] MEDS: PROSOURCE / PROSTAT (PYXIS) 30 ML UDC GT SCH (08:43)
[2016-08-31] MEDS: PANTOPRAZOLE 40 MG/PACK PACK GT SCH ×2 (08:43→21:34)
[2016-08-31] MEDS: AMLODIPINE BESYLATE 5 MG TABLET GT SCH ×2 (08:43→21:35)
[2016-08-31] MEDS: ZINC SULFATE 220 MG CAPSULE GT SCH (08:44)
[2016-08-31] MEDS: CHOLESTYRAMINE/ASPARTAME 4 G/PKT PACKET GT SCH ×2 (08:44→21:34)
[2016-08-31] MEDS: ASCORBIC ACID 500 MG TABLET GT SCH (08:44)
[2016-08-31] MEDS: INSULIN DETEMIR 100 UNIT/ML CARTRIDGE SQ SCH (08:45)
[2016-08-31] MEDS: HYDROGEL DRESSING 90 GM TUBE TP SCH ×2 (08:49→17:58)
[2016-08-31] MEDS: Z GUARD REMEDY 2 OZ OINT TP SCH (08:49)
[2016-08-31 12:00] VITALS: BP 116/66
[2016-08-31] MEDS ORDERED: SECONDARY IV SET 1 EA INFUS.SET MC ONE (15:24)
[2016-08-31] MEDS: LEVOFLOXACIN 500 MG /D5W 100ML 500 MG in PREMIX 1 EA IV SCH (15:36)
[2016-08-31 16:00] VITALS: BP 122/65
--- NOTE | 2016-08-31 18:40 | NUR ---
RN NOTES: Patient remained stable within shift, no signs and symptoms of distress noted. Kept clean and dry. Provided safety and comfort measure. HOB elevated, Gtube feeding tolerating well, no residual noted, Aspiration precaution observed. Wound care done. To endorsed to next shift for continuity of care.
[2016-08-31 20:00] VITALS: BP 138/60
[2016-08-31] MEDS: SCOPOLAMINE HBR 1 EA PATCH.TD72 TD SCH (21:36)
--- NOTE | 2016-08-31 21:38 | NUR ---
[facility] Breath sounds equal and trach midline. Tx given as ordered No adverse reactions. Vent plugged into red outlet and alarms loud and functioning. Ambu bag at the bed side.
[2016-09-01] VITALS: BP 130/68
[2016-09-01] MEDS: BLOOD SUGAR DIAGNOSTIC 1 EACH STRIP IN SCH ×4 (00:13→17:49)
[2016-09-01] MEDS: hydrALAZINE HCL 25 MG TABLET GT SCH ×4 (00:20→17:47)
[2016-09-01] MEDS: INSULIN REGULAR, HUMAN 100 UNIT/ML 3 ML VIAL SQ PRN ×2 (00:23→12:44)
[2016-09-01] MEDS: ALBUTEROL FS 2.5 MG/3 ML VIAL.NEB NEB SCH ×4 (00:49→19:46)
[2016-09-01] MEDS: IPRATROPIUM NEB FS 0.5 MG/2.5 ML AMPUL.NEB NEB SCH ×4 (00:49→19:46)
[2016-09-01 04:00] VITALS: BP 61/68
--- NOTE | 2016-09-01 07:30 | NUR ---
RN NOTES [facility] WITH BREATHING NORMAL, EVEN AND UNLABORED. NO SOB NOTED. NO ACUTE DISTRESS NOTED. VENT SETTING REVIEWED AND VERIFIED. TOLERATED WELL. TELE MONITOR REVEALS SR, HR=90. IV STAN MIDLINE IS PATENT AND INTACT. ON GT FEED. TOLERATED WELL. ASPIRATION PRECAUTION TAKEN. HOB ELEVATED. KEPT CLEAN, DRY AND COMFORTABLE. ALL NEEDS ATTENDED. SAFETY MEASURE OBSERVED. CALL LIGHT WITH IN REACH. WILL CONT TO MONITOR.
[2016-09-01 07:37] LABS: BASOPHILS % (AUTO) 0.1 % (0.0-2.0); EOSINOPHILS # (AUTO) 0.1 /CMM (0.0-0.7); EOSINOPHILS % (AUTO) 1.3 % (0.0-6.0); HEMATOCRIT 24 % (33-45); HEMOGLOBIN 8.2 g/dL (11.5-14.8); LYMPHOCYTES # (AUTO) 0.9 /CMM (0.8-4.8); LYMPHOCYTES % (AUTO) 8.9 % (20.0-44.0); MEAN CORPUSCULAR HEMOGLOBIN 31 PG (26.0-33.0); MEAN CORPUSCULAR HGB CONC 35 g/dl (31.0-36.0); MEAN CORPUSCULAR VOLUME 89 fL (82-100); MONOCYTES # (AUTO) 0.8 /CMM (0.1-1.30); MONOCYTES % (AUTO) 8.1 % (2.0-12.0); NEUTROPHILS # (AUTO) 7.8 /CMM (1.8-8.9); NEUTROPHILS % (AUTO) 81.6 % (43.0-81.0); PLATELET COUNT (AUTO) 246 /CMM (150-450); RDW COEFFICIENT OF VARIATION 15.3 (11.5-15.0); RED BLOOD CELL COUNT(AUTO) 2.69 MIL/uL (4.0-5.2); WHITE BLOOD COUNT (AUTO) 9.6 K/uL (4.3-11.0)
[2016-09-01 07:51] LABS: CALCIUM, SERUM 8.8 mg/dL (8.5-10.1); CREATININE 6.4 mg/dL (0.6-1.3); MAGNESIUM 2.3 mg/dL (1.8-2.4); PHOSPHORUS 4.1 mg/dL (2.5-4.9); POTASSIUM 4.7 mmol/L (3.5-5.1)
[2016-09-01] MEDS: ACETYLCYSTEINE 10% SOLN 400 MG/4 ML VIAL NEB SCH ×2 (07:53→15:21)
[2016-09-01 08:00] VITALS: BP 147/72
[2016-09-01] MEDS ORDERED: VANCOMYCIN FOR PO/GT USE 500 MG ORAL.SUSP PO SCH (09:00)
[2016-09-01] MEDS: FERROUS SULFATE UDC 300 MG/5 ML UDC GT SCH (09:55)
[2016-09-01] MEDS: ASCORBIC ACID 500 MG TABLET GT SCH (09:56)
[2016-09-01] MEDS: CHOLESTYRAMINE/ASPARTAME 4 G/PKT PACKET GT SCH ×2 (09:56→21:12)
[2016-09-01] MEDS: VIT B CMPLX 3/FA/VIT C/BIOTIN 1 TAB TABLET GT SCH (09:56)
[2016-09-01] MEDS: PROSOURCE / PROSTAT (PYXIS) 30 ML UDC GT SCH (09:56)
[2016-09-01] MEDS: BENEFIBER 4 GM 1 EA PACKET GT SCH ×2 (09:56→17:46)
[2016-09-01] MEDS: FAMOTIDINE (20 MG) 20 MG TABLET GT SCH (09:56)
[2016-09-01] MEDS: LEVETIRACETAM SOL (5 ML) 100 MG/ML UDC GT SCH ×2 (09:56→21:11)
[2016-09-01] MEDS: ZINC SULFATE 220 MG CAPSULE GT SCH (09:56)
[2016-09-01] MEDS: PANTOPRAZOLE 40 MG/PACK PACK GT SCH ×2 (09:56→21:11)
[2016-09-01] MEDS: Z GUARD REMEDY 2 OZ OINT TP SCH (09:57)
[2016-09-01] MEDS: VANCOMYCIN HCL 125 MG/2.5 ML ORAL.SUSP PO SCH ×3 (09:59→17:52)
[2016-09-01] MEDS: INSULIN DETEMIR 100 UNIT/ML CARTRIDGE SQ SCH (10:03)
[2016-09-01] MEDS: HYDROGEL DRESSING 90 GM TUBE TP SCH ×2 (10:04→17:50)
[2016-09-01] MEDS: LOSARTAN POTASSIUM 50 MG TABLET GT SCH ×2 (10:17→21:00)
[2016-09-01] MEDS: AMLODIPINE BESYLATE 5 MG TABLET GT SCH ×2 (10:21→21:00)
[2016-09-01 12:00] VITALS: BP 143/76
[2016-09-01 16:00] VITALS: BP 149/69
--- NOTE | 2016-09-01 17:19 | NUR ---
Pt tolerated current vent settings well. No changes made. Pt trach is secure. Vent is plugged into a red outlet, alarms are set and audible. BVM is at bedside. Addendum: 09/01/16 at 1721 by JORDEN BARTH RT Amended: Links added.
--- NOTE | 2016-09-01 19:30 | NUR ---
RN INITIAL NOTES RECEIVED PATIENT IN BED, EYES CLOSED, OBTUNDED BASELINE. TRACH MIDLINE AND INTACT ON MECHANICAL VENT AT PRESCRIBED SETTINGS WITH BREATHING EVEN AND UNLABORED. NO SOB OR RESPIRATORY DISTRESS NOTED. NO ACUTE DISTRESS NOTED. PATIENT ON TELEMETRY MONITORING, REVEALING SR, HR=88. NOTED WITH STAN MIDLINE, PATENT AND INTACT. GT PATENT AND INTACT, ONOING TUBE FEEDINGS AT PRESCRIBED RATE, TOLERATED WELL. ASPIRATION PRECAUTION OBSERVED. HOB ELEVATED. KEPT CLEAN, DRY AND COMFORTABLE. ALL NEEDS ATTENDED. SAFETY MEASURE OBSERVED. CALL LIGHT WITH IN REACH. WILL CONT TO MONITOR.
--- NOTE | 2016-09-01 19:50 | NUR ---
RN NOTES PATIENT ENDORSED TO NEXT SHIFT IN STABLE CONDITION FOR CONTINUITY OF CARE.
[2016-09-01 20:00] VITALS: BP 117/63
--- NOTE | 2016-09-01 23:00 | NUR ---
RN NOTES TUBE FEEDING PLACED ON HOLD, WILL RESUME TUBE FEEDING @ 0600.
[2016-09-02] VITALS: BP 133/77
[2016-09-02] MEDS: ALBUTEROL FS 2.5 MG/3 ML VIAL.NEB NEB SCH ×4 (00:30→19:55)
[2016-09-02] MEDS: IPRATROPIUM NEB FS 0.5 MG/2.5 ML AMPUL.NEB NEB SCH ×4 (00:30→19:55)
[2016-09-02] MEDS: ACETYLCYSTEINE 10% SOLN 400 MG/4 ML VIAL NEB SCH ×3 (00:30→15:29)
[2016-09-02] MEDS: VANCOMYCIN HCL 125 MG/2.5 ML ORAL.SUSP PO SCH ×5 (00:35→23:14)
[2016-09-02] MEDS: BLOOD SUGAR DIAGNOSTIC 1 EACH STRIP IN SCH ×5 (00:39→23:23)
[2016-09-02] MEDS: hydrALAZINE HCL 25 MG TABLET GT SCH ×5 (00:41→23:15)
[2016-09-02] MEDS: ACETAMINOPHEN 650 MG/20.3 ML UDC GT PRN ×2 (03:43→16:57)
[2016-09-02 04:00] VITALS: BP 130/72
[2016-09-02] MEDS ORDERED: IV NS 0.9% 250 ML IV ONE ×2 (05:39→20:47)
[2016-09-02] MEDS: RENAL NOVASOURCE 1,000 ML BOTTLE GT PRN (06:04)
[2016-09-02] MEDS: INSULIN REGULAR, HUMAN 100 UNIT/ML 3 ML VIAL SQ PRN ×4 (06:18→23:16)
--- NOTE | 2016-09-02 06:47 | NUR ---
RN CLOSING NOTES PATIENT ASLEEP IN BED, TUBE FEEDINGS RESUMED AT 0600. NO ACUTE CHANGES OVERNIGHT. WILL ENDORSE THE PATIENT TO THE AM SHIFT NURSE FOR SHERRY
[2016-09-02 08:00] VITALS: BP 130/48
[2016-09-02] MEDS: AMLODIPINE BESYLATE 5 MG TABLET GT SCH ×2 (09:00→21:10)
[2016-09-02] MEDS: INSULIN DETEMIR 100 UNIT/ML CARTRIDGE SQ SCH (09:00)
[2016-09-02] MEDS: Z GUARD REMEDY 2 OZ OINT TP SCH (09:00)
[2016-09-02] MEDS: HYDROGEL DRESSING 90 GM TUBE TP SCH ×2 (09:00→17:24)
[2016-09-02] MEDS: ASCORBIC ACID 500 MG TABLET GT SCH (09:00)
[2016-09-02] MEDS: PROSOURCE / PROSTAT (PYXIS) 30 ML UDC GT SCH (09:08)
[2016-09-02] MEDS: LEVETIRACETAM SOL (5 ML) 100 MG/ML UDC GT SCH ×2 (09:08→21:10)
[2016-09-02] MEDS: CHOLESTYRAMINE/ASPARTAME 4 G/PKT PACKET GT SCH ×2 (09:08→21:10)
[2016-09-02] MEDS: ZINC SULFATE 220 MG CAPSULE GT SCH (09:08)
[2016-09-02] MEDS: VIT B CMPLX 3/FA/VIT C/BIOTIN 1 TAB TABLET GT SCH (09:08)
[2016-09-02] MEDS: BENEFIBER 4 GM 1 EA PACKET GT SCH ×2 (09:08→16:58)
[2016-09-02] MEDS: PANTOPRAZOLE 40 MG/PACK PACK GT SCH ×2 (09:09→21:10)
[2016-09-02] MEDS: FERROUS SULFATE UDC 300 MG/5 ML UDC GT SCH (09:09)
[2016-09-02] MEDS: LOSARTAN POTASSIUM 50 MG TABLET GT SCH ×2 (09:09→21:10)
[2016-09-02 12:00] VITALS: BP 150/69
[2016-09-02 16:00] VITALS: BP_SYST 137; BP_SYST 173; BP_DIAS 66; BP_DIAS 77
--- NOTE | 2016-09-02 18:56 | NUR ---
RN CLOSING NOTE PT RESTING IN BED COMFORTABLY. ALL MD ORDERS CARRIED OUT. PATIENT KEPT CLEAN AND DRY. SAFETY PRECAUTIONS IN PLACE AT ALL TIMES. WILL GIVE REPORT TO PM RN FOR SHERRY
[2016-09-02 20:00] VITALS: BP 146/62
--- NOTE | 2016-09-02 20:00 | NUR ---
RN NOTES RECEIVED PX AROUSABLE TO TOUCH NOT FOLLOWING COMMANDS, NO EYE REGARD; WITH TRACH PORTEX WITH CUFF INTACT CONNECTED TO VENT; NOT IN DISTRESSS; WITH LEFT UA MIDLINE WITH CLEAN INTACT DRY DRESSING; G TUBE CONNECTED TO TF, TF TOLERATED; DIAPER ON; WITH RIGHT FEM HD CATH WITH CLEAN,DRY,INTACT DRESSING; HEELS OFFLOADED; REPOSITIONED TO THE RIGHT WITH HOB AT 30 ANGLE; SUCTIONED ORALLY AND TRACHEALLY; CONTINUED TO MONITOR.
[2016-09-03] VITALS (8 sets, daily range): BP systolic 98–158; BP diastolic 47–76
[2016-09-03] MEDS: ACETYLCYSTEINE 10% SOLN 400 MG/4 ML VIAL NEB SCH ×4 (00:12→23:47)
--- NOTE | 2016-09-03 00:24 | NUR ---
RN NOTES CONDITION AND NEURO STATUS UNCHANGED; SUCTIONED ORALLY AND TRACHEALLY; REPOSITIONED; SR WITH BP WNL.
[2016-09-03] MEDS: IPRATROPIUM NEB FS 0.5 MG/2.5 ML AMPUL.NEB NEB SCH ×4 (02:09→19:58)
[2016-09-03] MEDS: ALBUTEROL FS 2.5 MG/3 ML VIAL.NEB NEB SCH ×4 (02:09→19:58)
[2016-09-03] MEDS: INSULIN REGULAR, HUMAN 100 UNIT/ML 3 ML VIAL SQ PRN ×2 (05:15→17:43)
[2016-09-03] MEDS: RENAL NOVASOURCE 1,000 ML BOTTLE GT PRN (05:17)
[2016-09-03] MEDS: VANCOMYCIN HCL 125 MG/2.5 ML ORAL.SUSP PO SCH ×3 (05:18→16:54)
[2016-09-03] MEDS: hydrALAZINE HCL 25 MG TABLET GT SCH ×3 (05:18→17:00)
[2016-09-03] MEDS: BLOOD SUGAR DIAGNOSTIC 1 EACH STRIP IN SCH ×3 (05:19→17:38)
--- NOTE | 2016-09-03 06:48 | NUR ---
RN NOTES BEDBATH RENDERED, PX HAD 1 LARGE LOOSE BM BROWNISH IN COLOR, PERICARE RENDERED; CHANGED DRESSING ON THE SACRAL AREA; NO OTHER SKIN BREAKDOWN NOTED; ORAL, TRACH AND GTUBE SITE CARE GIVEN; MIDLINE PATENT AND INTACT; REPOSITIONED; CONTINUED TO MONITOR; NO S/SX DISTRESS; WILL ENDORSE TO NEXT RN.
[2016-09-03 07:38] LABS: ALBUMIN 2.6 g/dL (3.4-5.0); BILIRUBIN,TOTAL 0.5 mg/dL (0.2-1.0); CALCIUM, SERUM 8.6 mg/dL (8.5-10.1); CREATININE 6.1 mg/dL (0.6-1.3); POTASSIUM 4.7 mmol/L (3.5-5.1); TOTAL PROTEIN, SERUM 7.2 g/dL (6.4-8.2)
[2016-09-03] MEDS: BENEFIBER 4 GM 1 EA PACKET GT SCH ×2 (09:19→17:00)
[2016-09-03] MEDS: LOSARTAN POTASSIUM 50 MG TABLET GT SCH ×2 (09:26→21:00)
[2016-09-03] MEDS: FERROUS SULFATE UDC 300 MG/5 ML UDC GT SCH (09:30)
[2016-09-03] MEDS: LEVETIRACETAM SOL (5 ML) 100 MG/ML UDC GT SCH ×2 (09:30→21:12)
[2016-09-03] MEDS: AMLODIPINE BESYLATE 5 MG TABLET GT SCH ×2 (09:31→21:00)
[2016-09-03] MEDS: VIT B CMPLX 3/FA/VIT C/BIOTIN 1 TAB TABLET GT SCH (09:31)
[2016-09-03] MEDS: FAMOTIDINE (20 MG) 20 MG TABLET GT SCH (09:32)
[2016-09-03] MEDS: PANTOPRAZOLE 40 MG/PACK PACK GT SCH ×2 (09:33→21:12)
[2016-09-03] MEDS: CHOLESTYRAMINE/ASPARTAME 4 G/PKT PACKET GT SCH ×2 (09:33→21:12)
[2016-09-03] MEDS: PROSOURCE / PROSTAT (PYXIS) 30 ML UDC GT SCH (09:33)
[2016-09-03] MEDS: ZINC SULFATE 220 MG CAPSULE GT SCH (09:34)
[2016-09-03] MEDS: ASCORBIC ACID 500 MG TABLET GT SCH (09:34)
[2016-09-03] MEDS: HYDROGEL DRESSING 90 GM TUBE TP SCH ×2 (09:34→16:55)
[2016-09-03] MEDS: Z GUARD REMEDY 2 OZ OINT TP SCH (09:35)
[2016-09-03] MEDS: INSULIN DETEMIR 100 UNIT/ML CARTRIDGE SQ SCH (10:59)
[2016-09-03] MEDS: ACETAMINOPHEN 650 MG/20.3 ML UDC GT PRN (17:00)
--- NOTE | 2016-09-03 20:00 | NUR ---
RECEIVED PATIENT IN BED, OBTUNDENT VENT DEPENDENT NO DISTRESS NOTED. VITAL SIGNS WNL, NO S/S OF PAIN NOTED PATIENT TURNED AND REPOSITIONED FOR MORE COMFORT AND HOSPITAL PROTOCOL. CONTINUE TO MONITOR
[2016-09-03] MEDS: SCOPOLAMINE HBR 1 EA PATCH.TD72 TD SCH (21:12)
[2016-09-04] VITALS: BP 144/71
[2016-09-04] MEDS: DEXTROSE 50%-WATER 50 ML DISP.SYRIN IV PRN (00:06)
[2016-09-04] MEDS: hydrALAZINE HCL 25 MG TABLET GT SCH ×4 (00:09→18:48)
[2016-09-04] MEDS: VANCOMYCIN HCL 125 MG/2.5 ML ORAL.SUSP PO SCH ×2 (00:09→05:09)
[2016-09-04] MEDS: BLOOD SUGAR DIAGNOSTIC 1 EACH STRIP IN SCH ×4 (00:10→18:49)
--- NOTE | 2016-09-04 00:10 | NUR ---
BS 52- HYPOGLYCEMIC PROTOCOL INITIATE- D50% AMPUL IVP GIVEN
[2016-09-04] MEDS: INSULIN REGULAR, HUMAN 100 UNIT/ML 3 ML VIAL SQ PRN ×3 (00:11→12:58)
--- NOTE | 2016-09-04 00:30 | NUR ---
BS UPON RECHECK 144, CONTINUE TO MONITOR
[2016-09-04] MEDS: ALBUTEROL FS 2.5 MG/3 ML VIAL.NEB NEB SCH ×3 (01:53→13:27)
[2016-09-04] MEDS: IPRATROPIUM NEB FS 0.5 MG/2.5 ML AMPUL.NEB NEB SCH ×3 (01:53→13:27)
[2016-09-04 04:00] VITALS: BP 151/71
[2016-09-04] MEDS: RENAL NOVASOURCE 1,000 ML BOTTLE GT PRN (05:10)
--- NOTE | 2016-09-04 07:00 | NUR ---
RN NOTES RECEIVED Pt. AROUSABLE TO TOUCH NOT FOLLOWING COMMANDS, NO EYE REGARD; WITH TRACH PORTEX WITH CUFF INTACT CONNECTED TO VENT; NOT IN DISTRESSS; WITH LEFT UA MIDLINE WITH CLEAN INTACT DRY DRESSING; G TUBE CONNECTED TO TF, TF TOLERATED; DIAPER ON; WITH RIGHT FEM HD CATH WITH CLEAN,DRY,INTACT DRESSING; HEELS OFFLOADED; REPOSITIONED TO THE RIGHT WITH HOB AT 30 ANGLE; SUCTIONED ORALLY AND TRACHEALLY; CONTINUED TO MONITOR.
[2016-09-04] MEDS: ACETYLCYSTEINE 10% SOLN 400 MG/4 ML VIAL NEB SCH ×2 (07:14→15:25)
[2016-09-04 08:00] VITALS: BP 176/76
[2016-09-04] MEDS: VIT B CMPLX 3/FA/VIT C/BIOTIN 1 TAB TABLET GT SCH (09:00)
[2016-09-04] MEDS: BENEFIBER 4 GM 1 EA PACKET GT SCH ×2 (09:25→16:22)
[2016-09-04] MEDS: LEVETIRACETAM SOL (5 ML) 100 MG/ML UDC GT SCH (09:26)
[2016-09-04] MEDS: FERROUS SULFATE UDC 300 MG/5 ML UDC GT SCH (09:27)
[2016-09-04] MEDS: PANTOPRAZOLE 40 MG/PACK PACK GT SCH (09:29)
[2016-09-04] MEDS: LOSARTAN POTASSIUM 50 MG TABLET GT SCH (09:35)
[2016-09-04] MEDS: ZINC SULFATE 220 MG CAPSULE GT SCH (09:35)
[2016-09-04] MEDS: AMLODIPINE BESYLATE 5 MG TABLET GT SCH (09:35)
[2016-09-04] MEDS: PROSOURCE / PROSTAT (PYXIS) 30 ML UDC GT SCH (09:36)
[2016-09-04] MEDS: CHOLESTYRAMINE/ASPARTAME 4 G/PKT PACKET GT SCH (09:36)
[2016-09-04] MEDS: ASCORBIC ACID 500 MG TABLET GT SCH (09:36)
[2016-09-04] MEDS: INSULIN DETEMIR 100 UNIT/ML CARTRIDGE SQ SCH (09:38)
[2016-09-04] MEDS: HYDROGEL DRESSING 90 GM TUBE TP SCH ×2 (09:45→17:55)
[2016-09-04] MEDS: Z GUARD REMEDY 2 OZ OINT TP SCH (09:46)
[2016-09-04 10:20] LABS: BASOPHILS % (AUTO) 0.2 % (0.0-2.0); EOSINOPHILS # (AUTO) 0.2 /CMM (0.0-0.7); EOSINOPHILS % (AUTO) 2.8 % (0.0-6.0); HEMATOCRIT 21 % (33-45); HEMOGLOBIN 7.2 g/dL (11.5-14.8); LYMPHOCYTES # (AUTO) 0.7 /CMM (0.8-4.8); LYMPHOCYTES % (AUTO) 11.3 % (20.0-44.0); MEAN CORPUSCULAR HEMOGLOBIN 30 PG (26.0-33.0); MEAN CORPUSCULAR HGB CONC 34 g/dl (31.0-36.0); MEAN CORPUSCULAR VOLUME 88 fL (82-100); MONOCYTES # (AUTO) 0.6 /CMM (0.1-1.30); MONOCYTES % (AUTO) 9.5 % (2.0-12.0); NEUTROPHILS # (AUTO) 4.9 /CMM (1.8-8.9); NEUTROPHILS % (AUTO) 76.2 % (43.0-81.0); PLATELET COUNT (AUTO) 262 /CMM (150-450); RDW COEFFICIENT OF VARIATION 14.7 (11.5-15.0); WHITE BLOOD COUNT (AUTO) 6.4 K/uL (4.3-11.0)
[2016-09-04 10:39] LABS: ALBUMIN 2.4 g/dL (3.4-5.0); BILIRUBIN,TOTAL 0.4 mg/dL (0.2-1.0); CALCIUM, SERUM 8.5 mg/dL (8.5-10.1); CREATININE 5.9 mg/dL (0.6-1.3); POTASSIUM 4.8 mmol/L (3.5-5.1); TOTAL PROTEIN, SERUM 6.8 g/dL (6.4-8.2)
[2016-09-04 12:00] VITALS: BP 153/73
[2016-09-04] MEDS: VANCOMYCIN HCL 125 MG/2.5 ML ORAL.SUSP GT SCH ×2 (12:47→18:49)
[2016-09-04 16:00] VITALS: BP 143/61
[2016-09-04 18:48] VITALS: BP 143/61
--- NOTE | 2016-09-04 19:09 | NUR ---
pt discharged to [facility].all m.d orders noted.no s/s of distress. pt d/c instructions given to ambulance personnel.
[2016-09-08] MEDS ORDERED: VANCOMYCIN HCL 125 MG/2.5 ML ORAL.SUSP GT SCH (06:00)
== END 2016-09-04 20:16 | DRG 710 ==
LOC: ER 15:32 → TELE-TD 18:53 → TELE1 07-08 10:28
PROVIDERS: ADMIT Internal Medicine; ATTEND Internal Medicine Nephrology
PROC: 5A1955Z Respiratory Ventilation, Greater than 96 Consecutive Hours (ICD-10-PCS; 2016-07-05)
PROC: 5A1D60Z (ICD-10-PCS; 2016-07-07)
PROC: 0KBP0ZZ Excision of Left Hip Muscle, Open Approach (ICD-10-PCS; principal; 2016-07-12)
PROC: 0KBN0ZZ Excision of Right Hip Muscle, Open Approach (ICD-10-PCS; 2016-07-12)
PROC: 02PYX3Z Removal of Infusion Device from Great Vessel, External Approach (ICD-10-PCS; 2016-08-01)
PROC: 06H033Z Insertion of Infusion Device into Inferior Vena Cava, Percutaneous Approach (ICD-10-PCS; 2016-08-05)
PROC: B519YZA Fluoroscopy of Inferior Vena Cava using Other Contrast, Guidance (ICD-10-PCS; 2016-08-05)
PROC: 30233N1 Transfusion of Nonautologous Red Blood Cells into Peripheral Vein, Percutaneous Approach (ICD-10-PCS; 2016-08-08)
PROC: 05H533Z Insertion of Infusion Device into Right Subclavian Vein, Percutaneous Approach (ICD-10-PCS; 2016-08-14)
PROC: 05H633Z Insertion of Infusion Device into Left Subclavian Vein, Percutaneous Approach (ICD-10-PCS; 2016-09-02)
DX: A41.9 Sepsis, unspecified organism (principal); G93.40 Encephalopathy, unspecified; G93.1 Anoxic brain damage, not elsewhere classified; J90 Pleural effusion, not elsewhere classified; J15.1 Pneumonia due to Pseudomonas; Z99.11 Dependence on respirator [ventilator] status; L89.154 Pressure ulcer of sacral region, stage 4; E87.2 Acidosis; J44.0 Chronic obstructive pulmonary disease with (acute) lower respiratory infection; J96.10 Chronic respiratory failure, unspecified whether with hypoxia or hypercapnia; E44.0 Moderate protein-calorie malnutrition; N18.6 End stage renal disease; B37.0 Candidal stomatitis; I12.0 Hypertensive chronic kidney disease with stage 5 chronic kidney disease or end stage renal disease; R13.10 Dysphagia, unspecified; E11.22 Type 2 diabetes mellitus with diabetic chronic kidney disease; E66.9 Obesity, unspecified; G40.909 Epilepsy, unspecified, not intractable, without status epilepticus; D64.9 Anemia, unspecified; Z93.0 Tracheostomy status; Z93.1 Gastrostomy status; A04.7 Enterocolitis due to Clostridium difficile; E87.1 Hypo-osmolality and hyponatremia; E87.70 Fluid overload, unspecified; I51.7 Cardiomegaly; J98.11 Atelectasis; N39.0 Urinary tract infection, site not specified; Y95 Nosocomial condition; Z99.2 Dependence on renal dialysis; I95.9 Hypotension, unspecified
CPT/HCPCS: 31720; 36415; 36569; 36600; 71010-TC; 71250-TC; 73550-TC; 76700-TC; 76882; 76942-TC; 80048-TC; 80053-TC; 80076-TC; 80202-TC; 81000-TC; 82272-TC; 82728-TC; 82962-TC; 82977-TC; 83540-TC; 83605-TC; 83690-TC; 83735-TC; 84100-TC; 84484-TC; 85025-TC; 85027-TC; 85610-TC; 85730-TC; 86704; 86705; 86706; 86803; 86850-TC; 86921-TC; 87040-TC; 87045-TC; 87070-TC; 87081-TC; 87086-TC; 87186-TC; 87340; 89055; 90935-TC; 93971-TC; 94002; 94002-TC; 94003-TC; 94640-TC; 94667-TC; 94668-TC; 94760-TC; 94799-TC; 99082-TC; A4216; A4606; A4623; A6248; A6253; A6402; A6403; A7526; C1750; C1757; C1769; J0885; J1644; J1815; J1953; J1956; J2405; J2543; J2704; J2997; J3010; J3370; J3490; J7030; J7050; J7060; J8597; P9016-BL; P9047; Q9966; Z7610

== ENCOUNTER 2016-09-12 09:44 | Inpatient (IN) | payer MEDICAID, MEDICARE ==
[~2016-09-12] VITALS: Ht 154.9 cm; Wt 61.2 kg
[2016-09-12] VITALS (12 sets, daily range): BP systolic 123–168; BP diastolic 64–85
[~2016-09-12 09:44] MED LIST: ACET-868 GT; ACET-868 PO; ALBUT2 NEB; AMIN30LI4 GT; AMLO5TAB2 GT; ASCO500S2 GT; FAMO40TA7 GT; FERR220S2 GT; FOLI0.8T2 GT; HYDR-4076 GT; INSU100I19 SQ; INSU100V27 SQ; LEVE100S GT; LOSA50TA21 PO; METO5TAB87 GT; METR500T GT; NUTR100037 GT; Nystatin PO; PANT40SU2 GT; SCOP1PAT TD; VANC125C11 PO; ZINC220C8 GT
--- NOTE | 2016-09-12 09:53 | NUR ---
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 came in with vent trach with the following settings: AC=12, DP=008, PEEP=5, FIO2=40%. midline noted on left upper arm--intact. G-tube and right femoral dialysis port noted LAWN MOWER OPERATOR intact. Dr Escalante at for eval. no acute resp and cardiac distress noted.
--- NOTE | 2016-09-12 09:53 | NUR ---
PT. PLACED INTO ESPRIT VENTILATOR VIA TRACH SIZE #7 PORTEX CUFFED. VENT PARAMETERS BELLOW SET PER RT TRANSPORT: AC 12 VT 500 FIO2 40% PEEP +5 BREATH SOUNDS CLEAR BILATERAL, SXN SMALL AMNT CLEAR TO PALE YELLOW SECRETIONS. BHARGAV@ BEDSIDE. Addendum: 09/12/16 at 1006 by FLORES SAMS RT Amended: Links added.
[2016-09-12 10:06] LABS: BASOPHILS % (AUTO) 0.2 % (0.0-2.0); EOSINOPHILS # (AUTO) 0.3 /CMM (0.0-0.7); EOSINOPHILS % (AUTO) 3.4 % (0.0-6.0); HEMATOCRIT 21 % (33-45); LYMPHOCYTES # (AUTO) 0.9 /CMM (0.8-4.8); LYMPHOCYTES % (AUTO) 11.7 % (20.0-44.0); MEAN CORPUSCULAR HEMOGLOBIN 30 PG (26.0-33.0); MEAN CORPUSCULAR HGB CONC 33 g/dl (31.0-36.0); MEAN CORPUSCULAR VOLUME 90 fL (82-100); MONOCYTES # (AUTO) 0.5 /CMM (0.1-1.30); MONOCYTES % (AUTO) 6.4 % (2.0-12.0); NEUTROPHILS # (AUTO) 6.1 /CMM (1.8-8.9); NEUTROPHILS % (AUTO) 78.3 % (43.0-81.0); PLATELET COUNT (AUTO) 248 /CMM (150-450); RDW COEFFICIENT OF VARIATION 13.8 (11.5-15.0); WHITE BLOOD COUNT (AUTO) 7.8 K/uL (4.3-11.0)
[2016-09-12 10:22] LABS: ALANINE AMINOTRANSFERASE 9 U/L (12-78); ALBUMIN 2.5 g/dL (3.4-5.0); ALKALINE PHOSPHATASE 349 U/L (46-116); ASPARTATE AMINOTRANSFERASE 9 U/L (15-37); BILIRUBIN,DIRECT 0.1 mg/dL (0.0-0.2); BILIRUBIN,TOTAL 0.3 mg/dL (0.2-1.0); CARBON DIOXIDE 24 mmol/L (21-32); CHLORIDE 105 mmol/L (98-107); GFR 9 mL/min (>60); GLUCOSE 159 mg/dL (74-106); POTASSIUM 4.9 mmol/L (3.5-5.1); SODIUM SERUM 136 mmol/L (136-145); TOTAL PROTEIN, SERUM 6.9 g/dL (6.4-8.2); UREA NITROGEN, BLOOD 61 mg/dL (7-18)
[2016-09-12 10:24] LABS: TROPONIN I < 0.017 ng/mL (0.00-0.056)
[2016-09-12] MEDS ORDERED: ALBU2.5V13 IH (10:26)
[2016-09-12] MEDS ORDERED: ONDA-25 GT (10:26)
[2016-09-12] MEDS ORDERED: FERR300L GT (10:26)
[2016-09-12] MEDS ORDERED: ACET650S26 GT (10:26)
[2016-09-12] MEDS ORDERED: BLOO-668 IN (10:26)
[2016-09-12] MEDS ORDERED: INSU100V3 SQ (10:26)
[2016-09-12] MEDS ORDERED: CHOL4PAC9 GT (10:26)
[2016-09-12] MEDS ORDERED: EPOE1VIA4 SQ (10:26)
[2016-09-12] MEDS ORDERED: IPRA0.2S9 IH (10:26)
[2016-09-12] MEDS ORDERED: OMEP40CA37 GT (10:28)
[2016-09-12] MEDS ORDERED: ACET200V5 NEB (10:28)
[2016-09-12 10:29] LABS: HEMOGLOBIN 6.9 g/dL (11.5-14.8)
[2016-09-12 10:36] LABS: INR 1.01 (0.87-1.13); PROTHROMBIN TIME 10.5 SECS (9.5-12.7)
[2016-09-12 10:48] LABS: LACTIC ACID 1.3 mmol/L (0.4-2.0)
--- NOTE | 2016-09-12 10:56 | NUR ---
CALLED ALPHONSE WILL CALL US BACK
--- NOTE | 2016-09-12 11:26 | NUR ---
CALLED ALPHONSE SECOND TIME
--- NOTE | 2016-09-12 11:36 | NUR ---
Patient is resting comfortably in bed with eyes closed. Easily aroused. VSS
--- NOTE | 2016-09-12 11:54 | NUR ---
PAGED DR. LLOYD WHO IS COVERING [facility]
[2016-09-12 11:55] LABS: LYMPHOCYTES % (MANUAL) 6 % (16-48); MONOCYTES % (MANUAL) 7 % (0-11.0); NEUTROPHILS % (MANUAL) 87 (42-76); PLATELET ESTIMATE ADEQUATE
--- NOTE | 2016-09-12 12:25 | NUR ---
Report given to LAWRENCE Diop for SHERRY Tele [phone]
[2016-09-12] MEDS ORDERED: PIPERACILLIN /TAZOBACTAM 3.375 G in IV D5W 50 ML IV ONE (12:30)
[2016-09-12] MEDS ORDERED: VANCOMYCIN 1 GM in IV D5W 250 ML IV ONE (12:30)
[2016-09-12] MEDS ORDERED: IV NS 0.9% 500 ML BAG IV ONE (12:30)
[2016-09-12] MEDS ORDERED: IV NS 0.9% 500 ML IV ONE ×2 (12:30→12:51)
[2016-09-12] MEDS ORDERED: IV SET PRIMARY PUMP SET 1 EA INFUS.SET MC ONE (12:38)
[2016-09-12] MEDS ORDERED: IV NS 0.9% 0 ML ONE (12:38)
[2016-09-12] MEDS ORDERED: IV SET PRIMARY 1 EA INFUS.SET MC ONE (12:38)
--- NOTE | 2016-09-12 12:40 | NUR ---
iv ns 500ml given to patient only.
--- NOTE | 2016-09-12 13:07 | NUR ---
PT TRANSFERRED FROM ER#5 TO 321 BED 2. VENT PLUGGED INTO RED OUTLET WITH ALARM ON AND AUDIBLE. BHARGAV @ BEDSIDE. Addendum: 09/12/16 at 1325 by FLORES SAMS RT Amended: Links added.
[2016-09-12] MEDS ORDERED: IV NS 0.9% 250 ML IV ONE (14:30)
[2016-09-12] MEDS ORDERED: BLOOD IV SET 1 EA INFUS.SET MC ONE (14:30)
--- NOTE | 2016-09-12 15:05 | NUR ---
RN ADMITTING NOTES PATIENT RECEIVED @ 1400 FROM ER VIA GURNEY ACCOMPANIED BY ER NURSES. OPENS HER EYES SPONTANEOUSLY BUT NON-VERBAL. PATIENT ON MECHANICAL VENT AT PRESCRIBED SETTINGS OF AC 500 RR 12 FI02 405 PEEP 5, TOLERATING SETTINGS WITH NO SOB NOTED. PATIENT WITH G-TUBE IN PLACE AND PATENT, WILL START NOVASOURCE FEEDING AT 50 ML/HR. MIDLINE ON LEFT UPPER ARM G#20 INTACT AND PATENT. WITH RIGHT FEMORAL SHUNT IN PLACE FOR HD ACCESS. PHOTOS OF WOUNDS TAKEN AND FILED ON CHART. V/S CHECKED AND RECORDED. BED KEPT LOW AND LOCKED WITH SIDE-RAILS UP APPROPRIATE. ALL SAFETY MEASURES ENFORCED. ALL ROUTINE ADMISSION DONE. MD MADE AWARE OF ADMISSION. WILL CONTINUE TO MONITOR PATIENT. Addendum: 09/12/16 at 2018 by ALLA MILLER RN ADDENDUM; PATIENT ADMITTED WITH DIAGNOSIS OF ANEMIA WITH HGB OF 6.2 AND HCT OF 6.2 WITH ORDER TO TRANSFUSE 2 BAGS OF PRBC. PATIENT ALSO HAS SIGNIFICANT DIAGNOSIS OF SEIZURE, ANOXIC BRAIN DAMAGE, GERD, DM TYPE AND ESDR. SHE IS FOR H.DIALYSIS THREE TIMES A WEEK ON THURSDAY, THURSDAY AND THURSDAY.
--- NOTE | 2016-09-12 16:18 | NUR ---
RN NOTES TELEPHONE CONSENT FOR BLOOD TRANSFUSION TAKEN FROM DAUGHTER SHAILESH NOLAN AND VERIFIED BY 2 NURSES. BLOOD TRANSFUSION OF 2 BAGS PRBC GIVEN DURING HEMODIALYSIS WITH NO ADVERSE REACTIONS NOTED. NO RASHES, NO SOB AND NO FEVER. OUTPUT AFTER DIALYSIS WAS 2.5L. WILL CONTINUE TO MONITOR
[2016-09-12] MEDS ORDERED: ONDANSETRON HCL 4 MG/5 ML SOLUTION GT PRN (17:30)
[2016-09-12] MEDS: SCOPOLAMINE HBR 1 EA PATCH.TD72 TD SCH (17:56)
[2016-09-12] MEDS ORDERED: INSULIN REGULAR, HUMAN 100 UNIT/ML 3 ML VIAL SQ PRN (18:00)
[2016-09-12] MEDS ORDERED: BLOOD SUGAR DIAGNOSTIC 1 EACH STRIP IN SCH (18:00)
[2016-09-12] MEDS ORDERED: DEXTROSE 50%-WATER 50 ML DISP.SYRIN IV PRN (18:00)
[2016-09-12] MEDS ORDERED: FAMOTIDINE 40 MG TABLET GT SCH (18:00)
[2016-09-12] MEDS: BLOOD SUGAR DIAGNOSTIC 1 EACH STRIP IN SCH ×2 (18:04→23:59)
[2016-09-12] MEDS: hydrALAZINE HCL 25 MG TABLET GT SCH (18:10)
--- NOTE | 2016-09-12 18:45 | NUR ---
RN CLOSING NOTES PATIENT IN BED AT MODERATE HIGH BACKREST POSITION, NO ACUTE SIGNS OF DISTRESS NOTED SINCE ADMISSION. ON TELE-MONITORING WITH READING OF NS AND HR OF 75. G-TUBE FEEDING OF NOVASOURCE AT 50ML/HR IN PROGRESS AND TOLERATED. MID-LINE ON RIGHT UPPER ARM INTACT AND PATENT. CONTINUES ON MECHANICAL VENT AND TOLERATING SETTINGS WELL. ALL NEEDS AND CARE WELL PROVIDED. DUE MEDS GIVEN ORDERED. SAFETY PRECAUTIONS MAINTAINED. ENDORSED TO HUMAN RESOURCES BENEFITS SPECIALIST NURSE FOR SHERRY.
--- NOTE | 2016-09-12 19:00 | NUR ---
SENIOR LIVING SALES COUNSELOR OPENING NOTES RECEIVED PATIENT IN BED, AWAKE, BREATHING TREATMENT TOLERATED WELL. IV SITE INTACT WITH NO S/S OF INFILTRATION NOTED. NO S/S OF BLEEDING NOTED. NO S/S OF DISTRESS, NO CHEST PAIN IN STABLE CONDITION. KEPT CLEAN DRY AND COMFORTABLE. SAFE HAZARD FREE ENVIRONMENT PROVIDED. WILL CONTINUE TO MONITOR PATIENT.
[2016-09-12] MEDS: RENAL NOVASOURCE 1,000 ML BOTTLE GT PRN (19:06)
[2016-09-12] MEDS: IPRATROPIUM NEB FS 0.5 MG/2.5 ML AMPUL.NEB IH SCH (20:01)
[2016-09-12] MEDS: ALBUTEROL FS 2.5 MG/0.5 ML VIAL.NEB IH SCH (20:01)
[2016-09-12] MEDS: LOSARTAN POTASSIUM 50 MG TABLET PO SCH (21:22)
[2016-09-12] MEDS: FAMOTIDINE (20 MG) 20 MG TABLET GT SCH (21:22)
[2016-09-12] MEDS: LEVETIRACETAM SOL (5 ML) 100 MG/ML UDC GT SCH (21:22)
[2016-09-12] MEDS: CHOLESTYRAMINE/ASPARTAME 4 G/PKT PACKET PO SCH (21:22)
[2016-09-12] MEDS: PANTOPRAZOLE 40 MG TABLET.DR PO SCH (21:22)
[2016-09-12] MEDS: AMLODIPINE BESYLATE 5 MG TABLET GT SCH (21:23)
[2016-09-12] MEDS: ACETYLCYSTEINE 20% SOLN 800 MG/4 ML VIAL NEB SCH (23:26)
[2016-09-13] VITALS (8 sets, daily range): BP systolic 133–167; BP diastolic 66–81
[2016-09-13] MEDS: INSULIN REGULAR, HUMAN 100 UNIT/ML 3 ML VIAL SQ PRN ×2 (00:01→05:10)
[2016-09-13] MEDS: hydrALAZINE HCL 25 MG TABLET GT SCH ×5 (00:03→23:29)
[2016-09-13] MEDS: ALBUTEROL FS 2.5 MG/0.5 ML VIAL.NEB IH SCH ×4 (00:54→19:42)
[2016-09-13] MEDS: IPRATROPIUM NEB FS 0.5 MG/2.5 ML AMPUL.NEB IH SCH ×4 (00:54→19:42)
--- NOTE | 2016-09-13 02:00 | NUR ---
PLACED AND SPOKE TO METAL WORKER EPIC REGARDING RESULTS OF BLOOD CULTURE OF GRAM POSITIVE COCCI WITH NO NEW ORDERS NOTED AND CARRIED OUT. Addendum: 09/13/16 at 0624 by ADI JOHNSON RN ADDENDUM: SPOKE TO DR. JOSÉ MIGUEL DELUNA
[2016-09-13] MEDS: BLOOD SUGAR DIAGNOSTIC 1 EACH STRIP IN SCH ×4 (05:06→23:28)
--- NOTE | 2016-09-13 06:24 | NUR ---
SUPERINTENDENT SANITATION CLOSING NOTES PATIENT COMFORTABLY ASLEEP AND EASILY AWAKEN, HEAD OF BED ELEVATED FOR BETTER LUNG EXPANSION ON 02 SAT 100% BREATHING TREATMENT TOLERATED WELL. AC 12, RR 12 FI02 40% PEEP +5 VT 500 MECH VENT. VS STABLE, ON BEHAVIOR SPECIALIST. NO S/S OF HYPO/HYPERGLYCEMIA. GT INFUSING WELL, 50 CC/HR TOLERATED. IV SITE NO S/S OF INFILTRATED, PATIENT NO S/S OF PAIN SKIN WARM AND DRY TO TOUCH, AFEBRILE, ALL NURSING CARE NEEDS PROVIDED AND RENDERED, NEEDS ATTENDED AND ANTICIPATED, KEPT CLEAN AND DRY AND COMFORTABLE, BLADDER NOT DISTENDED, URINATED 3X, GOOD SKIN CARE PROVIDED. ABDOMEN SOFT AND NON TENDER. ALL DUE MEDS WAS GIVEN TOLERATED. FREQUENT VISUAL CHECK DONE FOR SAFETY EVERY 2 HOURS. REPOSITIONED EVERY 2 HOURS FOR COMFORT AND SKIN MGT. OFFLOAD AT ALL TIMES. SAFE HAZARD FREE ENVIRONMENT PROVIDED. CALL LIGHT WITHIN EASY TO REACH, ON LOW BED AT ALL TIMES TO ENSURE SAFETY, WILL ENDORSE TO THE NEXT SHIFT CONTINUE PLAN OF CARE.
--- NOTE | 2016-09-13 07:05 | NUR ---
TELE/RN AM NOTES RECEIVED PATIENT IN BED, ASLEEP, ON MECHANICAL VENT, AC 12, RR 12 FI02 40% PEEP +5 VT 500 TOLERATING WELL, NO S/SX DISTRESS, SATURATION 100%. HOB 35 DEGREE FOR COMFORT. ON TELE MONITOR, HR 85. TORI MIDLINE INTACT, PATENT. GT PLACEMENT CHECKED, PATENT, INTACT, INFUSING NOVASOURCE 50 CC/H, NO ABDOMINAL DISTENTION, BOWEL SOUNDS PRESENT. BED IN LOW POSITION, 2 SR UP FOR SAFETY, CALL LIGHT WITHIN EASY REACH. WILL CONTINUE TO MONITOR ACCORDINGLY.
[2016-09-13] MEDS: ACETYLCYSTEINE 20% SOLN 800 MG/4 ML VIAL NEB SCH ×3 (07:43→23:43)
[2016-09-13] MEDS: PROSOURCE / PROSTAT (PYXIS) 30 ML UDC GT SCH (08:53)
[2016-09-13] MEDS: LEVETIRACETAM SOL (5 ML) 100 MG/ML UDC GT SCH ×2 (08:53→21:01)
[2016-09-13] MEDS: VIT B CMPLX 3/FA/VIT C/BIOTIN 1 TAB TABLET PO SCH (08:53)
[2016-09-13] MEDS: ZINC SULFATE 220 MG CAPSULE GT SCH (08:53)
[2016-09-13] MEDS: ACETAMINOPHEN 650 MG/20.3 ML UDC GT SCH (08:53)
[2016-09-13] MEDS: FERROUS SULFATE UDC 300 MG/5 ML UDC GT SCH (08:53)
[2016-09-13] MEDS: CHOLESTYRAMINE/ASPARTAME 4 G/PKT PACKET PO SCH ×2 (08:53→21:01)
[2016-09-13] MEDS: ASCORBIC ACID 500 MG TABLET GT SCH (08:53)
[2016-09-13] MEDS: AMLODIPINE BESYLATE 5 MG TABLET GT SCH ×2 (08:54→21:02)
[2016-09-13] MEDS: LOSARTAN POTASSIUM 50 MG TABLET PO SCH ×2 (08:54→21:02)
[2016-09-13] MEDS: PANTOPRAZOLE 40 MG TABLET.DR PO SCH ×2 (08:54→21:02)
[2016-09-13] MEDS: INSULIN DETEMIR 100 UNIT/ML CARTRIDGE SQ SCH (08:57)
[2016-09-13 11:55] LABS: HEMOGLOBIN 10.6 g/dL (11.5-14.8)
--- NOTE | 2016-09-13 12:06 | NUR ---
RN NOTES BLOOD SUGAR CHECKED, READING 260, 6 UNITS REGULAR INSULIN GIVEN PER SLIDING SCALE ORDERED
[2016-09-13] MEDS: HYDROGEL DRESSING 90 GM TUBE TP SCH (13:29)
[2016-09-13] MEDS: NEOMY SULF/BACITRAC ZN/POLY 15 GM TUBE TP SCH (13:29)
--- NOTE | 2016-09-13 15:52 | NUR ---
LAB REPORT RECEIVED, POSITIVE BLOOD CULTURE FOR COCCI, LEFT MESSAGE TO DR. LLOYD'S ANSWERING SERVICE
--- NOTE | 2016-09-13 18:00 | NUR ---
RN NOTES UNABLE TO GIVE DEBRIDEMENT CONSENT TO THE PATIENT'S FAMILY TO SIGN, WILL ENDORSE, AND F/U TOMORROW
--- NOTE | 2016-09-13 18:34 | NUR ---
BLOOD SUGAR CHECKED 92, NO COVERAGE GIVEN
--- NOTE | 2016-09-13 19:00 | NUR ---
CUSTOMER SERVICE CASHIER OPENING NOTES RECEIVED PATIENT IN BED, AWAKE, NON VERBAL, GT TUBE RUNNING NOVASOURCE 50CC/HR, IV SITE INTACT WITH NO S/S OF INFILTRATION NOTED. NO S/S OF BLEEDING NOTED. NO S/S OF DISTRESS, NO CHEST PAIN IN STABLE CONDITION. KEPT CLEAN DRY AND COMFORTABLE. SAFE HAZARD FREE ENVIRONMENT PROVIDED. WILL CONTINUE TO MONITOR PATIENT.
--- NOTE | 2016-09-13 19:00 | NUR ---
TELE/RN CLOSING NOTES PATIENT IS IN THE BED, AWAKE, NON-VERBAL, ON MECHANICAL VENT, TOLERATING WELL, O2 SATURATION 100%, HOB ELEVATED FOR ASPIRATION PRECAUTION, BED IN LOW POSITION, 2 SR UP FOR SAFETY. IV MIDLINE ON LEFT UPPER ARM INTACT, DRESSING CHANGED, NO S.SX BLEEDING OR INFECTION. GT INTACT, PATENT, WITH 5O CC/H NOVASOURCE, TOLERATING WELL, NO ABDOMINAL DISTENTION, B/M NOTED, SMALL AMOUNT ,UNABLE TO COLLECT STOOL, WILL ENDORSE TO THE NEXT SHIFT. TURNED, REPOSITIONED PATIENT EVERY 2H, KEPT CLEAN, DRY,COMFORTABLE, INCONTINENT CARE PROVIDED NEEDED, WITH CALL LIGHT WITHIN EASY REACH, ENDORSED TO THE BROACH GRINDER NURSE FOR SHERRY.
[2016-09-13] MEDS: RENAL NOVASOURCE 1,000 ML BOTTLE GT PRN (21:01)
[2016-09-14] VITALS (8 sets, daily range): BP systolic 122–136; BP diastolic 61–76
[2016-09-14] MEDS: IPRATROPIUM NEB FS 0.5 MG/2.5 ML AMPUL.NEB IH SCH ×4 (01:31→20:02)
[2016-09-14] MEDS: ALBUTEROL FS 2.5 MG/0.5 ML VIAL.NEB IH SCH ×4 (01:31→20:02)
[2016-09-14] MEDS: hydrALAZINE HCL 25 MG TABLET GT SCH ×3 (05:04→18:30)
[2016-09-14] MEDS: BLOOD SUGAR DIAGNOSTIC 1 EACH STRIP IN SCH ×3 (05:09→18:29)
[2016-09-14] MEDS: INSULIN REGULAR, HUMAN 100 UNIT/ML 3 ML VIAL SQ PRN ×3 (05:14→17:43)
--- NOTE | 2016-09-14 06:19 | NUR ---
WATER JET OPERATOR CLOSING NOTES IN BED ASLEEP AND EASILY AWAKEN, NON VERBAL OPEN EYES, ON SEMI FOWLERS POSITION, PORTEX #7, AC 12, RR 12 FIO2 40%, VT 500 GT SITE INTACT WITH NO S/S OF INFECTION NOTED RUNNING 50 CC/HR. TORI MIDLINE SITE INTACT WITH NO S/S OF INFILTRATION NOTED. SKIN WARM AND DRY TO TOUCH, AFEBRILE, ALL NURSING CARE NEEDS PROVIDED AND RENDERED, NEEDS ATTENDED AND ANTICIPATED, KEPT CLEAN AND DRY AND COMFORTABLE, BLADDER NOT DISTENDED, CONTINUE WITH CURRENT MEDICATION ORDERED, NO LATE ADVERSE REACTION NOTED. SAFE HAZARD FREE ENVIRONMENT MAINTAINED. REPOSITIONED EVERY 2 HOURS FOR SKIN MANAGEMENT AND COMFORT. TREATMENT ORDERED, GOOD SKIN CARE PROVIDED. KEPT AT LOW BED. FREQUENT VISUAL CHECK FOR SAFETY. PLAN OF CARE ORDERED. CALL LIGHT ATTENDED PROMPTLY AND KEPT AT EASY REACH. WILL ENDORSE TO THE NEXT SHIFT CONTINUE PLAN OF CARE. NO S/S OF HYPO/HYPERGLYCEMIA. BREATHING TREATMENT TOLERATED WELL. PATIENT ON PORTFOLIO STRATEGIST SR 87, 02 [id number]
--- NOTE | 2016-09-14 07:21 | NUR ---
TELE/RN AM NOTES RECEIVED PATIENT IN BED, AWAKE, NON-VERBAL, ON MECHANICAL VENT, WITH O2 SATURATION 99%, NO DISTRESS NOTED, NO S/SX PAIN, NO GRIMACING. TELE MONITOR ATTACHED, WITH SINUS RHYTHM 74, IV MIDLINE ON LEFT UPPER ARM INTACT, NO S/SX BLEEDING OR INFECTION, PATENT. GT INTACT, NO RESIDUAL, DELIVERING NOVASOURCE 50 CC/H, TOLERATING WELL, ABDOMEN SOFT, INTACT, BOWEL SOUNDS PRESENT. HOB ELEVATED FOR ASPIRATION PRECAUTION, BED IN LOW POSITION, 2 SR UP FOR SAFETY, WITH CALL LIGHT WITHIN EASY REACH. WILL CONTINUE TO MONITOR ACCORDINGLY.
[2016-09-14 08:13] LABS: BASOPHILS % (AUTO) 0.1 % (0.0-2.0); EOSINOPHILS # (AUTO) 0.2 /CMM (0.0-0.7); EOSINOPHILS % (AUTO) 1.5 % (0.0-6.0); HEMATOCRIT 30 % (33-45); HEMOGLOBIN 9.9 g/dL (11.5-14.8); LYMPHOCYTES # (AUTO) 0.8 /CMM (0.8-4.8); MEAN CORPUSCULAR HEMOGLOBIN 30 PG (26.0-33.0); MEAN CORPUSCULAR HGB CONC 33 g/dl (31.0-36.0); MEAN CORPUSCULAR VOLUME 91 fL (82-100); MONOCYTES # (AUTO) 0.5 /CMM (0.1-1.30); MONOCYTES % (AUTO) 5.1 % (2.0-12.0); NEUTROPHILS # (AUTO) 8.9 /CMM (1.8-8.9); NEUTROPHILS % (AUTO) 85.3 % (43.0-81.0); PLATELET COUNT (AUTO) 255 /CMM (150-450); RED BLOOD CELL COUNT(AUTO) 3.27 MIL/uL (4.0-5.2); WHITE BLOOD COUNT (AUTO) 10.4 K/uL (4.3-11.0)
[2016-09-14] MEDS: ACETYLCYSTEINE 20% SOLN 800 MG/4 ML VIAL NEB SCH ×3 (08:37→23:25)
[2016-09-14 08:44] LABS: CALCIUM, SERUM 8.9 mg/dL (8.5-10.1); CREATININE 5.9 mg/dL (0.6-1.3); MAGNESIUM 2.6 mg/dL (1.8-2.4); PHOSPHORUS 2.1 mg/dL (2.5-4.9); POTASSIUM 4.2 mmol/L (3.5-5.1)
[2016-09-14] MEDS ORDERED: FEE PK DOSING 1 MIN EA MC ONE (09:28)
[2016-09-14] MEDS: VANCOMYCIN HCL 125 MG/2.5 ML ORAL.SUSP PO SCH ×3 (09:30→17:42)
[2016-09-14] MEDS: ZINC SULFATE 220 MG CAPSULE GT SCH (09:54)
[2016-09-14] MEDS: FERROUS SULFATE UDC 300 MG/5 ML UDC GT SCH (09:54)
[2016-09-14] MEDS: LEVETIRACETAM SOL (5 ML) 100 MG/ML UDC GT SCH ×2 (09:54→20:38)
[2016-09-14] MEDS: ASCORBIC ACID 500 MG TABLET GT SCH (09:54)
[2016-09-14] MEDS: ACETAMINOPHEN 650 MG/20.3 ML UDC GT SCH (09:54)
[2016-09-14] MEDS: AMLODIPINE BESYLATE 5 MG TABLET GT SCH ×3 (09:56→21:55)
[2016-09-14] MEDS: PANTOPRAZOLE 40 MG TABLET.DR PO SCH ×2 (09:56→20:38)
[2016-09-14] MEDS: LOSARTAN POTASSIUM 50 MG TABLET PO SCH ×3 (09:57→21:54)
[2016-09-14] MEDS: CHOLESTYRAMINE/ASPARTAME 4 G/PKT PACKET PO SCH ×2 (09:57→21:54)
[2016-09-14] MEDS: VIT B CMPLX 3/FA/VIT C/BIOTIN 1 TAB TABLET PO SCH (09:57)
[2016-09-14] MEDS: PROSOURCE / PROSTAT (PYXIS) 30 ML UDC GT SCH (09:57)
[2016-09-14] MEDS: HYDROGEL DRESSING 90 GM TUBE TP SCH (09:57)
[2016-09-14] MEDS: NEOMY SULF/BACITRAC ZN/POLY 15 GM TUBE TP SCH (09:57)
[2016-09-14] MEDS: INSULIN DETEMIR 100 UNIT/ML CARTRIDGE SQ SCH (10:00)
[2016-09-14] MEDS ORDERED: EPOETIN ALFA (10,000 UNIT) 10,000 UNIT/ML VIAL SQ ONE (11:30)
[2016-09-14] MEDS ORDERED: ALTEPLASE CATHFLO 2 MG/VIAL XX ONE (12:00)
--- NOTE | 2016-09-14 13:10 | NUR ---
RN NOTES PAGED DOCTOR APPLICATIONS DEVELOPMENT ANALYST FOR DR. RIVERA FOR PHOSPHORUS LEVEL 2.1, AWAITING MD TO CALL BACK
--- NOTE | 2016-09-14 13:50 | NUR ---
RN NOTES DIALYSIS COMPLETED, 3000 ML FLUID REMOVED, PATIENT TOLERATED WELL, BP-103/58, P-96, Y-98.6, NO S/SX OF PAIN, HELD NOON TIME B/P MEDICATION HYDRALAZINE. CATHFLO GIVEN BY DIALYSES NURSE. HD CATHETER, AND MIDLINE DRESSING CHANGED BY DIALYSES NURSE WELL
[2016-09-14] MEDS: VANCOMYCIN 500 MG in IV D5W 100 ML IV PRN (14:57)
[2016-09-14] MEDS ORDERED: IV SET PRIMARY PUMP SET 1 EA INFUS.SET MC ONE ×2 (14:59→15:00)
[2016-09-14] MEDS ORDERED: IV NS 0.9% 250 ML IV ONE (15:00)
--- NOTE | 2016-09-14 17:44 | NUR ---
RN NOTES BLOOD SUGAR CHECKED 263, 6 UNITS REGULAR INSULIN GIVEN SQ PER SLIDING SCALE
--- NOTE | 2016-09-14 19:20 | NUR ---
TELE /RN CLOSING NOTES PATIENT IS IN BED ASLEEP, EASILY AROUSABLE, NON VERBAL OPEN EYES, NO DISTRSS NOTED, RESTING COMFORTABLY, HOB ELEVATED FOR ASPIRATION PRECAUTION. ON [facility] VENT PORTEX #7, AC 12, RR 12 FIO2 40%, VT 500. TELE MONITOR ATTACHED TO THE PATIENT, HR 94, SINUS RHYTHM. GT SITE INTACT, PATENT, NO RESIDUAL NOTED, FEEDING TOLERATING WELL, ABDOMEN SOFT, NON DISTENDED. NO S/SX OF HYPO OR HYPERGLYCEMIA. TORI MIDLINE SITE INTACT, PATENT, NO S/SX BLEEDING OR INFECTION. TURNED, REPOSITIONED EVERY 2 HOURS, SKIN TREATMENT DONE, ORDERED. KEPT CLEAN, DRY, COMFORTABLE ALL THE TIME, BED IN LOW POSITION, 2 SR UP FOR SAFETY, WITH CALL LIGHT WITHIN EASY REACH. WILL ENDORSE TO THE RESIDENTIAL SUBSTANCE ABUSE COUNSELOR NURSE ACCORDINGLY FOR SHERRY.
--- NOTE | 2016-09-14 19:35 | NUR ---
MS/RN OPENING NOTES PT OBTUNDED, OPENS EYES TO NAME/TOUCH. NONVERBAL. ON VENT WITH SETTINGS AC 12, RR 12, FIO2 40, TV 500, PORTEX 7. BREATHING IS EVEN AND UNLABORED. NO S/S OF DISTRESS NOTED. ON TELE MONITOR, SR AT 88. NO FACIAL GRIMACING OR OTHER SIGNS OF DISTRESS NOTED. NOVASOURCE RUNNING GT FEEDING AT 50CC/HR. TORI MIDLINE PATENT AND INTACT. BED IN LOW/LOCKED POSITION, EXTREMITIES OFFLOADED. WILL CONTINUE TO MONITOR
[2016-09-14] MEDS: FAMOTIDINE (20 MG) 20 MG TABLET GT SCH (20:38)
[2016-09-14] MEDS: RENAL NOVASOURCE 1,000 ML BOTTLE GT PRN (20:38)
[2016-09-14] MEDS: ACETAMINOPHEN 325 MG TABLET PO PRN (20:38)
--- NOTE | 2016-09-14 22:00 | NUR ---
TELE/RN NOTES WOUND CARE PROVIDED. STOOL SPECIMEN COLLECTED.
[2016-09-15] VITALS: BP 133/65
[2016-09-15] MEDS: BLOOD SUGAR DIAGNOSTIC 1 EACH STRIP IN SCH ×5 (00:41→23:40)
[2016-09-15] MEDS: hydrALAZINE HCL 25 MG TABLET GT SCH ×4 (00:42→18:00)
--- NOTE | 2016-09-15 01:00 | NUR ---
TELE/RN NOTES BLOOD MRKUH=908, NO INSULIN ADMINISTERED PER SLIDING SCALE
[2016-09-15] MEDS ORDERED: IV SET PRIMARY PUMP SET 1 EA INFUS.SET MC ONE (01:22)
[2016-09-15] MEDS: IPRATROPIUM NEB FS 0.5 MG/2.5 ML AMPUL.NEB IH SCH ×6 (01:37→20:05)
[2016-09-15] MEDS: ALBUTEROL FS 2.5 MG/0.5 ML VIAL.NEB IH SCH ×6 (01:37→20:05)
[2016-09-15 04:00] VITALS: BP 124/66
[2016-09-15] MEDS: INSULIN REGULAR, HUMAN 100 UNIT/ML 3 ML VIAL SQ PRN ×3 (06:30→18:10)
--- NOTE | 2016-09-15 06:30 | NUR ---
TELE/RN NOTES BLOOD SUGAR 219, 4 UNITS OF INSULIN ADMINISTERED PER SLIDING SCALE. GT FEEDING RESUMED.
[2016-09-15 07:17] VITALS: BP 136/77
--- NOTE | 2016-09-15 07:30 | NUR ---
MS/RN OPENING NOTES PT. IS IN BED, AWAKE, AND NON VERBAL. NO S/S OF DISTRESS, NO SOB, BREATHING ON A MECHANICAL VENTILATOR. GT TUBE RUNNING NOVASOURCE 50ML/HR. LEFT HAND HAD S/S OF BLEEDING THAT HAS BEEN STOPPED, HAND WRAPPED IN TOWEL. BED IN LOW POSITION, 2 SIDE RAILS UP, WILL CONTINUE TO MONITOR.
--- NOTE | 2016-09-15 07:30 | NUR ---
TELE/RN OPENING NOTES PT OBTUNDED, OPENS EYES TO NAME/TOUCH. NONVERBAL. ON VENT WITH SETTINGS AC 12, RR 12, FIO2 40, TV 500, PORTEX 7. BREATHING IS EVEN AND UNLABORED. NO S/S OF DISTRESS NOTED. ON TELE MONITOR, SR AT 80. NO FACIAL GRIMACING OR OTHER SIGNS OF DISTRESS NOTED. NOVASOURCE TEMPORARILY HELD DURING SHIFT. DIETARY CONSULT ORDERED FOR POSSIBLE RATE ADJUSTMENT DUE TO ORDER STATING 50CC/HR X 17HR, HOWEVER PT TOLERATING WELL, NO RESIDUAL NOTED. RESTARTED GT FEEDING POST ADMINISTRATION OF INSULIN SLIDING SCALE AT 50CC/HR TO AVOID HYPOGLYCEMIA. GT FLUSHED PERIODICALLY TO MAINTAIN PATENCY. TORI MIDLINE PATENT AND INTACT RUNNING IVF TKO. RIGHT FEMORAL HD CATH REMAINS C/D/I. BED IN LOW/LOCKED POSITION, EXTREMITIES OFFLOADED, TURNED/REPOSITIONED Q2H. WOUND CARE PROVIDED. ENDORSED TO AM SHIFT SHERRY.
[2016-09-15] MEDS: ACETYLCYSTEINE 20% SOLN 800 MG/4 ML VIAL NEB SCH ×4 (07:35→23:28)
[2016-09-15 07:46] LABS: BASOPHILS % (AUTO) 0.1 % (0.0-2.0); EOSINOPHILS # (AUTO) 0.4 /CMM (0.0-0.7); EOSINOPHILS % (AUTO) 3.3 % (0.0-6.0); HEMATOCRIT 31 % (33-45); HEMOGLOBIN 10.3 g/dL (11.5-14.8); LYMPHOCYTES # (AUTO) 1.1 /CMM (0.8-4.8); LYMPHOCYTES % (AUTO) 8.5 % (20.0-44.0); MEAN CORPUSCULAR HEMOGLOBIN 30 PG (26.0-33.0); MEAN CORPUSCULAR HGB CONC 33 g/dl (31.0-36.0); MEAN CORPUSCULAR VOLUME 91 fL (82-100); MONOCYTES # (AUTO) 0.6 /CMM (0.1-1.30); MONOCYTES % (AUTO) 4.5 % (2.0-12.0); NEUTROPHILS # (AUTO) 11.2 /CMM (1.8-8.9); NEUTROPHILS % (AUTO) 83.6 % (43.0-81.0); PLATELET COUNT (AUTO) 252 /CMM (150-450); RDW COEFFICIENT OF VARIATION 15.6 (11.5-15.0); RED BLOOD CELL COUNT(AUTO) 3.43 MIL/uL (4.0-5.2); WHITE BLOOD COUNT (AUTO) 13.4 K/uL (4.3-11.0)
[2016-09-15 08:00] VITALS: BP 136/77
[2016-09-15 08:13] LABS: CALCIUM, SERUM 9.1 mg/dL (8.5-10.1); CREATININE 4.7 mg/dL (0.6-1.3); MAGNESIUM 2.4 mg/dL (1.8-2.4); PHOSPHORUS 1.9 mg/dL (2.5-4.9)
[2016-09-15] MEDS: INSULIN DETEMIR 100 UNIT/ML CARTRIDGE SQ SCH (09:00)
[2016-09-15] MEDS: AMLODIPINE BESYLATE 5 MG TABLET GT SCH ×2 (09:00→21:57)
[2016-09-15] MEDS: ACETAMINOPHEN 650 MG/20.3 ML UDC GT SCH (09:00)
[2016-09-15] MEDS: NEOMY SULF/BACITRAC ZN/POLY 15 GM TUBE TP SCH (09:00)
[2016-09-15] MEDS: VIT B CMPLX 3/FA/VIT C/BIOTIN 1 TAB TABLET PO SCH (09:00)
[2016-09-15] MEDS ORDERED: EPOETIN ALFA (10,000 UNIT) 10,000 UNIT/ML VIAL SQ ONE (09:30)
[2016-09-15] MEDS: PROSOURCE / PROSTAT (PYXIS) 30 ML UDC GT SCH (11:56)
[2016-09-15] MEDS: CHOLESTYRAMINE/ASPARTAME 4 G/PKT PACKET PO SCH ×2 (11:56→21:58)
[2016-09-15] MEDS: LEVETIRACETAM SOL (5 ML) 100 MG/ML UDC GT SCH ×2 (11:57→21:58)
[2016-09-15] MEDS: ACETAMINOPHEN 325 MG TABLET PO PRN (11:57)
[2016-09-15] MEDS: ZINC SULFATE 220 MG CAPSULE GT SCH (11:57)
[2016-09-15] MEDS: FERROUS SULFATE UDC 300 MG/5 ML UDC GT SCH (11:57)
[2016-09-15] MEDS: ASCORBIC ACID 500 MG TABLET GT SCH (11:59)
[2016-09-15] MEDS: LOSARTAN POTASSIUM 50 MG TABLET PO SCH ×2 (12:00→21:57)
[2016-09-15] MEDS: PANTOPRAZOLE 40 MG TABLET.DR PO SCH ×2 (12:00→21:56)
[2016-09-15] MEDS: HYDROGEL DRESSING 90 GM TUBE TP SCH (12:03)
--- NOTE | 2016-09-15 13:00 | NUR ---
MS/REWORKER DEBRIDEMENT DR. RIVERA PERFORMED A WOUND DEBRIDEMENT FOR SACRAL WOUND. CLEANSED WITH NORMAL SALINE, HYDROGEL APPLIED, AND MEPILEX APPLIED.
[2016-09-15 16:00] VITALS: BP_SYST 104; BP_SYST 125; BP_DIAS 58; BP_DIAS 64
[2016-09-15] MEDS: VANCOMYCIN HCL 125 MG/2.5 ML ORAL.SUSP GT SCH (16:34)
[2016-09-15] MEDS: SCOPOLAMINE HBR 1 EA PATCH.TD72 TD SCH (18:21)
--- NOTE | 2016-09-15 19:00 | NUR ---
MS/RN MISSED MEDICATIONS MISSED 0900 MEDICATIONS... NORVASC WAS ADMINISTERED BUT WAS NOT SCANNED. LEVEMIR DID NOT FIND IN PYXIS. WHEN THE MEDICATION WAS FOUND IN THE MEDICATION ROOM WITHOUT THE PYXIS THE TIME WAS PAST DUE TO ADMINISTER IT. NEOSPORIN WAS NOT ADMINISTERED COULD NOT FIND NEAR BEDSIDE OR IN MEDICATION ROOMS. MISSED 1200 MEDICATIONS... APRESOLINE WAS NOT GIVEN DUE TO THE TIME BEING TOO CLOSE TO LAST MEDICATIONS GIVEN.
--- NOTE | 2016-09-15 19:30 | NUR ---
MS/RN CLOSING NOTE PT. IS LYING IN BED SLEEPING. PT. IS NOT IN DISTRESS, NO SOB, AND IS BREATHING ON A MECHANICAL VENTILATOR. PT. RECEIVED BREATHING TREATMENTS TODAY. NOVASOURCE WAS CHANGED TO 35ML/HR PER DIETARY CONSULTATION EARLIER TODAY. REPORT WAS ENDORSED TO TEST FACILITY ENGINEER NURSE.
--- NOTE | 2016-09-15 19:30 | NUR ---
MS/RN OPENING NOTES PT NON VERBAL, OPENS EYES. ON VENT WITH SETTINGS KV=327, AC=12, RR=12, FI02=40, PORTEX #7. ON TELE MONITOR, SINUS RHYTHM HR=89. ON GT FEEDING, NOVASOURCE AT 35ML/HR. TORI MIDLINE PATENT AND INTACT. RIGHT FEMORAL CATH IN PLACE. S/P WOUND DEBRIDEMENT 09/15/[address] HARVEY. EXTREMITIES OFFLOADED, BED IN LOW/LOCKED POSITION, CALL LIGHT IN REACH. BED RAILS UPX2. WILL CONTINUE TO MONITOR
[2016-09-15 20:00] VITALS: BP 150/65
[2016-09-15] MEDS: RENAL NOVASOURCE 1,000 ML BOTTLE GT PRN (23:44)
[2016-09-16] VITALS: BP 147/79
[2016-09-16] MEDS: INSULIN REGULAR, HUMAN 100 UNIT/ML 3 ML VIAL SQ PRN ×4 (00:05→23:32)
[2016-09-16] MEDS: hydrALAZINE HCL 25 MG TABLET GT SCH ×4 (00:40→18:59)
[2016-09-16] MEDS: ALBUTEROL FS 2.5 MG/0.5 ML VIAL.NEB IH SCH ×4 (01:57→19:44)
[2016-09-16] MEDS: IPRATROPIUM NEB FS 0.5 MG/2.5 ML AMPUL.NEB IH SCH ×4 (01:57→19:44)
[2016-09-16 04:00] VITALS: BP 138/70
[2016-09-16] MEDS: VANCOMYCIN HCL 125 MG/2.5 ML ORAL.SUSP GT SCH ×3 (04:12→21:15)
--- NOTE | 2016-09-16 04:15 | NUR ---
MS/RN NOTES VANCOCIN 250MG ADMINISTERED LATE DUE TO DAY SHIFT ADMINISTERING LATE. WAS TOO CLOSE TO GIVE AT SCHEDULED TIME AT 2100. NOTIFIED SENIOR NET ARCHITECT TANA TO EITHER GIVE LATE OR NON-ADMINISTER. TANA SAID TO GIVE LATE AND PHARMACY CAN MAKE ADJUSTMENTS NECESSARY.
[2016-09-16 06:38] LABS: BASOPHILS % (AUTO) 0.1 % (0.0-2.0); EOSINOPHILS # (AUTO) 0.5 /CMM (0.0-0.7); EOSINOPHILS % (AUTO) 3.8 % (0.0-6.0); HEMATOCRIT 29 % (33-45); HEMOGLOBIN 9.5 g/dL (11.5-14.8); LYMPHOCYTES # (AUTO) 1.1 /CMM (0.8-4.8); LYMPHOCYTES % (AUTO) 9.3 % (20.0-44.0); MEAN CORPUSCULAR HEMOGLOBIN 30 PG (26.0-33.0); MEAN CORPUSCULAR HGB CONC 33 g/dl (31.0-36.0); MEAN CORPUSCULAR VOLUME 91 fL (82-100); MONOCYTES # (AUTO) 0.6 /CMM (0.1-1.30); NEUTROPHILS # (AUTO) 9.8 /CMM (1.8-8.9); NEUTROPHILS % (AUTO) 81.8 % (43.0-81.0); PLATELET COUNT (AUTO) 227 /CMM (150-450); RDW COEFFICIENT OF VARIATION 15.7 (11.5-15.0); RED BLOOD CELL COUNT(AUTO) 3.15 MIL/uL (4.0-5.2)
[2016-09-16] MEDS: BLOOD SUGAR DIAGNOSTIC 1 EACH STRIP IN SCH ×4 (06:41→23:29)
--- NOTE | 2016-09-16 07:00 | NUR ---
MS/RN NOTES BLOOD QTDTV=834, ADMINISTERED 4 UNITS OF INSULIN PER SLIDING SCALE. PT REMAINS ON GT FEEDING.
[2016-09-16 07:01] LABS: CALCIUM, SERUM 9.3 mg/dL (8.5-10.1); MAGNESIUM 2.6 mg/dL (1.8-2.4); PHOSPHORUS 1.9 mg/dL (2.5-4.9); POTASSIUM 4.4 mmol/L (3.5-5.1)
--- NOTE | 2016-09-16 07:20 | NUR ---
RN MS OPENING NOTES PT ON BED,NON VERBAL, OPENS EYES. PATIENT ON VENTILATOR WITH SETTINGS EY=507, AC=12, RR=12, FI02=40, PORTEX #7. ON TELE MONITOR, SINUS RHYTHM HR=86. ON GT FEEDING, NOVASOURCE AT 35ML/HR. LEFT UPPER ARM PATENT AND INTACT. RIGHT FEMORAL CATH IN PLACE. BED IN LOWEST LOCKED POSITION, CALL LIGHT IN REACH. BOTH BED RAILS UP. WILL CONTINUE TO MONITOR ACCORDINGLY.
[2016-09-16] MEDS: ACETYLCYSTEINE 20% SOLN 800 MG/4 ML VIAL NEB SCH ×2 (07:47→13:39)
--- NOTE | 2016-09-16 07:53 | NUR ---
MS/RN CLOSING NOTES PT REMAINS WITH MECHANICAL VENT SETTINGS. SUCTIONED PRN. ON TELE MONITOR, SINUS RHYTHM HEART RATE 84. GT FEEDING RUNNING AT 35ML/HR, NO RESIDUAL NOTED. SACRAL WOUND CARE DONE AND DRESSING CHANGED. TURNED/REPOSITIONED Q2H, OFFLOADED. TORI MIDLINE REMAINS PATENT AND INTACT. BLOOD SUGAR THIS AM WAS 232, ADMINISTERED 4 UNITS OF INSULIN PER SLIDING SCALE. BED IN LOW/LOCKED POSITION WITH CALL LIGHT IN REACH. BED RAILS UP. ALL NEEDS MET AND ATTENDED TO. MADE PT COMFORTABLE THROUGHOUT SHIFT. PT TO HAVE HD TODAY. ENDORSED TO AM SHIFT SHERRY.
[2016-09-16 08:00] VITALS: BP 138/70
[2016-09-16] MEDS: PROSOURCE / PROSTAT (PYXIS) 30 ML UDC GT SCH (08:58)
[2016-09-16] MEDS: FERROUS SULFATE UDC 300 MG/5 ML UDC GT SCH (08:58)
[2016-09-16] MEDS: LEVETIRACETAM SOL (5 ML) 100 MG/ML UDC GT SCH ×2 (08:58→21:08)
[2016-09-16] MEDS: ACETAMINOPHEN 650 MG/20.3 ML UDC GT SCH (08:58)
[2016-09-16] MEDS: CHOLESTYRAMINE/ASPARTAME 4 G/PKT PACKET PO SCH ×2 (08:58→21:10)
[2016-09-16] MEDS: VIT B CMPLX 3/FA/VIT C/BIOTIN 1 TAB TABLET PO SCH (08:59)
[2016-09-16] MEDS: PANTOPRAZOLE 40 MG TABLET.DR PO SCH ×2 (08:59→21:10)
[2016-09-16] MEDS: ZINC SULFATE 220 MG CAPSULE GT SCH (08:59)
[2016-09-16] MEDS: ASCORBIC ACID 500 MG TABLET GT SCH (08:59)
[2016-09-16] MEDS: LOSARTAN POTASSIUM 50 MG TABLET PO SCH ×2 (09:00→21:09)
[2016-09-16] MEDS: AMLODIPINE BESYLATE 5 MG TABLET GT SCH ×2 (09:00→21:09)
[2016-09-16] MEDS: INSULIN DETEMIR 100 UNIT/ML CARTRIDGE SQ SCH (09:03)
[2016-09-16] MEDS: HYDROGEL DRESSING 90 GM TUBE TP SCH (09:04)
[2016-09-16 12:00] VITALS: BP 137/70
[2016-09-16] MEDS: VANCOMYCIN 500 MG in IV D5W 100 ML IV PRN (12:31)
[2016-09-16] MEDS ORDERED: SECONDARY IV SET 1 EA INFUS.SET MC ONE ×3 (12:33→19:45)
[2016-09-16] MEDS: NEOMY SULF/BACITRAC ZN/POLY 15 GM TUBE TP SCH (12:49)
[2016-09-16 16:00] VITALS: BP 130/69
--- NOTE | 2016-09-16 17:16 | NUR ---
RN NOTES RECEIVED RESULT PT WITH VRE IN BLOOD, WITH PRELIMINARY RESULTS, SENSITIVITY RESULT AVAILABLE CALLED DR. ALMAZAN EDITOR MANAGING NEWSPAPER FOR DR. WILKS WILL AWAIT CALL BACK Addendum: 09/16/16 at 1718 by ALLEGRA HALEY RN Amended: Links added.
--- NOTE | 2016-09-16 19:30 | NUR ---
RN CLOSING NOTES ALL NEEDS PROVIDED, ATTENDED AND ANTICIPATED. ON TELE MONITOR SR HEART RATE OF 93. KEPT PATIENT CLEAN AND COMFORTABLE IN BED, CALL LIGHT WITHIN PATIENT REACH, WILL CONTINUE TO MONITOR ACCORDINGLY. IV SITE INTACT, NO INFILTRATION NOTED. ENDORSED TO NEXT SHIFT RN TO CONTINUE CARE.
--- NOTE | 2016-09-16 19:35 | NUR ---
ROOFING MACHINE TENDER NOTES RECEIVED ON BED, ON LEFT SIDE LYING POSITION.HOB ELEVATED FOR ASPIRATION PRECAUTION,ON NOVASOURCE GT FEEDING AT 35ML/HR RATE,TOLERATED WELL,NO RESIDUAL NOTED.WITH LEFT FEMORAL CATHETER FOR HD ACCESS.TRACH SETTING TOLERATED WELL.SOUNDS AT TIMES WHEN PATIENT COUGH.RT AT BEDSIDE ADMINISTERING BREATHING TX SCHEDULED.ISOLATION PRECAUTION FOR VRE IN THE BLOOD.OPEN EYES TO NAME.WITH TORI MIDLINE FOR IV MEDS.REPOSITION PER PROTOCOL.WILL CONTINUE TO MONITOR STATUS.
--- NOTE | 2016-09-16 19:44 | NUR ---
[facility] WITH NOTED SETTINGS. VENT ALARM WORKING AND AUDIBLE. VENT PLUGGED INTO RED OUTLET. TRACH SECURE IN AND IN PROPER POSITION. CUFF CHECKED BAG MACHINE OPERATOR. PT SUCTIONED WITH SMALL AMOUNT OF YELLOWISH WHITE SEMI THICK SECRETIONS. NO RESPIRATORY DISTRESS AT THIS TIME. AMBU BAG AT BEDSIDE. WILL CONTINUE TO MONITOR
[2016-09-16] MEDS: LINEZOLID RTU BAG 600 MG in PREMIX 1 EA IV SCH (19:52)
[2016-09-16 20:00] VITALS: BP 140/67
--- NOTE | 2016-09-16 21:00 | NUR ---
MAJOR ACCOUNT MANAGER NOTES DUE MEDS GIVEN VIA GT,TOLERATED WELL.NO RESIDUAL VOLUME NOTED.
[2016-09-16] MEDS: FAMOTIDINE (20 MG) 20 MG TABLET GT SCH (21:09)
[2016-09-17] VITALS (8 sets, daily range): BP systolic 127–146; BP diastolic 71–95
[2016-09-17] MEDS: hydrALAZINE HCL 25 MG TABLET GT SCH ×5 (00:17→23:08)
[2016-09-17] MEDS: ACETYLCYSTEINE 20% SOLN 800 MG/4 ML VIAL NEB SCH ×4 (00:34→23:18)
[2016-09-17] MEDS: ALBUTEROL FS 2.5 MG/0.5 ML VIAL.NEB IH SCH ×4 (00:34→20:34)
[2016-09-17] MEDS: IPRATROPIUM NEB FS 0.5 MG/2.5 ML AMPUL.NEB IH SCH ×4 (00:34→20:34)
[2016-09-17] MEDS ORDERED: IV NS 0.9% 250 ML IV ONE (01:49)
--- NOTE | 2016-09-17 02:15 | NUR ---
MS BRAVO NOTES' PATIENT PULLED OUT SALINE LOCK.NEW SALINE LOCK PLACE ON LEFT HAND #22,FLUSHED AND KEPT PATENT. Addendum: 09/17/16 at 0325 by ERNESTO PHILLIPS RN WRONG ENTRY OF NOTES
[2016-09-17] MEDS: RENAL NOVASOURCE 1,000 ML BOTTLE GT PRN ×2 (04:50→21:07)
--- NOTE | 2016-09-17 05:00 | NUR ---
CERTIFIED DIALYSIS TECHNICIAN NOTES ACCU-CHECK BLOOD SUGAR CHECK 133,GT FEEDING IN PROGRESS,NO COVERAGE PER SLIDING SCALE.
[2016-09-17] MEDS: BLOOD SUGAR DIAGNOSTIC 1 EACH STRIP IN SCH ×4 (06:12→23:07)
--- NOTE | 2016-09-17 06:28 | NUR ---
PRODUCTION SUPPORT SPECIALIST NOTES GT FEEDING TOLERATED WELL.NO RESIDUAL NOTED.NO SOB,AFEBRILE.IN NO ACUTE DISTRESS.WILL ENDORSE TO DAYNURSE FOR SHERRY.
[2016-09-17 07:55] LABS: EOSINOPHILS # (AUTO) 0.4 /CMM (0.0-0.7); EOSINOPHILS % (AUTO) 3.6 % (0.0-6.0); HEMATOCRIT 30 % (33-45); HEMOGLOBIN 10.2 g/dL (11.5-14.8); LYMPHOCYTES # (AUTO) 0.9 /CMM (0.8-4.8); LYMPHOCYTES % (AUTO) 7.2 % (20.0-44.0); MEAN CORPUSCULAR HEMOGLOBIN 30 PG (26.0-33.0); MEAN CORPUSCULAR HGB CONC 34 g/dl (31.0-36.0); MEAN CORPUSCULAR VOLUME 90 fL (82-100); MONOCYTES # (AUTO) 0.6 /CMM (0.1-1.30); MONOCYTES % (AUTO) 4.5 % (2.0-12.0); NEUTROPHILS # (AUTO) 10.6 /CMM (1.8-8.9); NEUTROPHILS % (AUTO) 84.7 % (43.0-81.0); PLATELET COUNT (AUTO) 218 /CMM (150-450); RDW COEFFICIENT OF VARIATION 15.7 (11.5-15.0); RED BLOOD CELL COUNT(AUTO) 3.37 MIL/uL (4.0-5.2); WHITE BLOOD COUNT (AUTO) 12.5 K/uL (4.3-11.0)
--- NOTE | 2016-09-17 08:03 | NUR ---
ADJUNCT INSTRUCTOR CHEMISTRY INITIAL NOTES REPORT RECEIVED AT THE BEDSIDE. PATIENT IS RESTING COMFORTABLY IN BED. VENT SETTINGS CHECKED AND VERIFIED. NO SOB OR DISTRESS NOTED AT THIS TIME. PATIENT DOES NOT APPEAR TO BE IN PAIN, NO FACIAL GRIMACE NOTED. HEART RATE IS SR 64. BED IN A LOW POSITION, CALL LIGHT WITHIN PATIENT REACH, FAMILY IS AT THE BEDSIDE. WILL CONTINUE TO MONITOR.
[2016-09-17 08:12] LABS: CREATININE 4.7 mg/dL (0.6-1.3); MAGNESIUM 2.3 mg/dL (1.8-2.4); PHOSPHORUS 2.3 mg/dL (2.5-4.9)
[2016-09-17] MEDS: LINEZOLID RTU BAG 600 MG in PREMIX 1 EA IV SCH ×2 (08:31→21:06)
[2016-09-17] MEDS: VANCOMYCIN HCL 125 MG/2.5 ML ORAL.SUSP GT SCH ×2 (08:31→21:07)
[2016-09-17] MEDS: INSULIN DETEMIR 100 UNIT/ML CARTRIDGE SQ SCH (08:34)
[2016-09-17] MEDS: LEVETIRACETAM SOL (5 ML) 100 MG/ML UDC GT SCH ×2 (08:35→21:07)
[2016-09-17] MEDS: FERROUS SULFATE UDC 300 MG/5 ML UDC GT SCH (08:35)
[2016-09-17] MEDS: CHOLESTYRAMINE/ASPARTAME 4 G/PKT PACKET PO SCH ×2 (08:35→21:10)
[2016-09-17] MEDS: PROSOURCE / PROSTAT (PYXIS) 30 ML UDC GT SCH (08:35)
[2016-09-17] MEDS: ACETAMINOPHEN 650 MG/20.3 ML UDC GT SCH (08:35)
[2016-09-17] MEDS: AMLODIPINE BESYLATE 5 MG TABLET GT SCH ×2 (08:36→21:08)
[2016-09-17] MEDS: ZINC SULFATE 220 MG CAPSULE GT SCH (08:36)
[2016-09-17] MEDS: VIT B CMPLX 3/FA/VIT C/BIOTIN 1 TAB TABLET PO SCH (08:36)
[2016-09-17] MEDS: PANTOPRAZOLE 40 MG TABLET.DR PO SCH ×2 (08:36→21:07)
[2016-09-17] MEDS: LOSARTAN POTASSIUM 50 MG TABLET PO SCH ×2 (08:36→21:08)
[2016-09-17] MEDS: ASCORBIC ACID 500 MG TABLET GT SCH (08:36)
[2016-09-17] MEDS: HYDROGEL DRESSING 90 GM TUBE TP SCH (08:37)
[2016-09-17] MEDS: NEOMY SULF/BACITRAC ZN/POLY 15 GM TUBE TP SCH (08:38)
[2016-09-17] MEDS: INSULIN REGULAR, HUMAN 100 UNIT/ML 3 ML VIAL SQ PRN ×2 (12:28→17:46)
--- NOTE | 2016-09-17 14:51 | NUR ---
PAPER INSPECTOR NOTES PATIENT HAD AN EPISODE OF VOMITING. PATIENT HAD HEAD ELEVATED >30 DEGREES AT THE TIME. SUCTIONED PATIENT AND HAD RT CHANGE VENT TUBING. LUNG SOUNDS CLEAR. HELD FEEDING AND CALLED DR RIVERA'S OFFICE FOR ORDERS.
--- NOTE | 2016-09-17 15:12 | NUR ---
CLASSIFICATION CONTROL CLERK NOTE DR RIVERA CALLED AND ASKED TO HAVE TO PATIENT PLACED ON REGLAN 5MG VIA GTUBE Q6H. ORDERS PLACED.
--- NOTE | 2016-09-17 15:40 | NUR ---
TRAFFIC WORKFORCE REPRESENTATIVE NOTE INFORMED OF REACTION BETWEEN ZYVOX AND REGLAN. MD STATES TO GIVE MEDICATION ANYWAY. PHARMACY INFORMED OF MD ORDER.
[2016-09-17] MEDS: METOCLOPRAMIDE HCL 10 MG/10 ML UDC PO SCH ×3 (15:59→23:09)
--- NOTE | 2016-09-17 17:50 | NUR ---
HEAT TREAT TECHNICIAN NOTE BLOOD SUGAR IS 65. TOO LOW FOR DEXTROSE IV. GAVE THREE PACKS OF SUGAR IN H2O. WILL RECHECK.
--- NOTE | 2016-09-17 18:17 | NUR ---
CNC MANUFACTURING ENGINEER CLOSING NOTES CHANGES IN PATIENT CONDITION NOTED THROUGHOUT THE SHIFT. PATIENT RESTING COMFORTABLY IN BED. NO SOB OR DISTRESS NOTED AT THIS TIME. PATIENT DOES NOT APPEAR TO BE IN PAIN, NO FACIAL GRIMACE NOTED. NO VOMITING SINCE REGLAN WAS STARTED. VENT SETTINGS REMAIN UNCHANGED. HEART RATE SR IN THE 80S. BED IN A LOW POSITION, CALL LIGHT WITHIN PATIENT REACH. WILL ENDORSE FOR SHERRY.
--- NOTE | 2016-09-17 19:00 | NUR ---
UTILITY WORKER [place] OPENING NOTES RECEIVED PATIENT IN BED, AWAKE, NON VERBAL, GT TUBE RUNNING NOVASOURCE 35CC/HR, NO MIDLINE, SHE WILL RECEIVE MIDLINE TODAY. NO S/S OF BLEEDING NOTED. NO S/S OF DISTRESS, NO CHEST PAIN IN STABLE CONDITION. KEPT CLEAN DRY AND COMFORTABLE. SAFE HAZARD FREE ENVIRONMENT PROVIDED. WILL CONTINUE TO MONITOR PATIENT.
[2016-09-18] VITALS (7 sets, daily range): BP systolic 126–144; BP diastolic 71–90
[2016-09-18] MEDS: IPRATROPIUM NEB FS 0.5 MG/2.5 ML AMPUL.NEB IH SCH ×4 (02:19→20:25)
[2016-09-18] MEDS: ALBUTEROL FS 2.5 MG/0.5 ML VIAL.NEB IH SCH ×4 (02:19→20:25)
[2016-09-18] MEDS: hydrALAZINE HCL 25 MG TABLET GT SCH ×3 (04:58→18:12)
[2016-09-18] MEDS: BLOOD SUGAR DIAGNOSTIC 1 EACH STRIP IN SCH ×3 (05:00→17:57)
[2016-09-18] MEDS: METOCLOPRAMIDE HCL 10 MG/10 ML UDC PO SCH ×3 (05:00→18:11)
[2016-09-18] MEDS: INSULIN REGULAR, HUMAN 100 UNIT/ML 3 ML VIAL SQ PRN ×2 (05:05→12:32)
--- NOTE | 2016-09-18 06:35 | NUR ---
FLOOR SPACE ALLOCATOR OPENING NOTES PT NON VERBAL, COMFORTABLY SLEEPING IN BED OPENS EYES. BREATHING TREATMENT TOLERATED WELL. STAN MIDLINE PATENT AND INTACT. ON ATB WITH NO A/R NOTED. ON MECH VENT WITH SETTINGS TD=040, AC=12, RR=12, FI02=40, PORTEX #7. ON TELE MONITOR, SINUS RHYTHM HR=76. ON GT FEEDING, NOVASOURCE AT 35ML/HR. RIGHT FEMORAL CATH IN PLACE. NEEDS ATTENDED AND ANTICIPATED, KEPT CLEAN AND DRY AND COMFORTABLE, NURSING CARE RENDERED, REPOSITIONED EVERY 2 HOURS FOR COMFORT AND SKIN MGT. EXTREMITIES WAS OFFLOADED, BED IN LOW/LOCKED POSITION, VS STABLE SATURATING 100%, TREATMENT ORDERED, GOOD SKIN CARE PROVIDED, NO S/S OF HYPO/HYPERGLYCEMIA CALL LIGHT IN REACH. BED RAILS UP X 2. WILL ENDORSE TO THE NEXT SHIFT CONTINUITY OF CARE.
--- NOTE | 2016-09-18 07:20 | NUR ---
TELE/RN AM NOTES RECEIVED PATIENT IN BED, ASLEEP, ON MECHANICAL VENT, AC 12, RR 12 FI02 40% PEEP +5 VT 500 TOLERATING WELL, NO S/SX DISTRESS, SATURATION 100%. HOB 35 DEGREE FOR COMFORT. ON TELE MONITOR, HR 86. TORI MIDLINE INTACT, PATENT. GT PLACEMENT CHECKED, PATENT, INTACT, INFUSING NOVASOURCE 35 CC/H, NO ABDOMINAL DISTENTION, BOWEL SOUNDS PRESENT. BED IN LOW POSITION, 2 SR UP FOR SAFETY, CALL LIGHT WITHIN EASY REACH. WILL CONTINUE TO MONITOR ACCORDINGLY. Addendum: 09/18/16 at 1215 by DANAE WHITESIDE RN CORRECTION: RIGHT UPPER ARM MIDLINE PATENT, INTACT, NO S/SX BLEEDING OR INFECTION, DRESSING INTACT
[2016-09-18] MEDS: ACETYLCYSTEINE 20% SOLN 800 MG/4 ML VIAL NEB SCH ×3 (07:51→23:16)
[2016-09-18] MEDS: ACETAMINOPHEN 650 MG/20.3 ML UDC GT SCH (09:00)
[2016-09-18] MEDS: HYDROGEL DRESSING 90 GM TUBE TP SCH (09:00)
[2016-09-18] MEDS: AMLODIPINE BESYLATE 5 MG TABLET GT SCH ×2 (09:00→20:22)
[2016-09-18] MEDS: NEOMY SULF/BACITRAC ZN/POLY 15 GM TUBE TP SCH (09:00)
[2016-09-18] MEDS: LOSARTAN POTASSIUM 50 MG TABLET PO SCH ×2 (09:00→20:22)
[2016-09-18] MEDS: VIT B CMPLX 3/FA/VIT C/BIOTIN 1 TAB TABLET PO SCH (09:01)
[2016-09-18] MEDS: ZINC SULFATE 220 MG CAPSULE GT SCH (09:01)
[2016-09-18] MEDS: PROSOURCE / PROSTAT (PYXIS) 30 ML UDC GT SCH (09:01)
[2016-09-18] MEDS: ASCORBIC ACID 500 MG TABLET GT SCH (09:01)
[2016-09-18] MEDS: CHOLESTYRAMINE/ASPARTAME 4 G/PKT PACKET PO SCH ×2 (09:01→20:21)
[2016-09-18] MEDS: FERROUS SULFATE UDC 300 MG/5 ML UDC GT SCH (09:01)
[2016-09-18] MEDS: PANTOPRAZOLE 40 MG TABLET.DR PO SCH ×2 (09:01→20:22)
[2016-09-18] MEDS: VANCOMYCIN HCL 125 MG/2.5 ML ORAL.SUSP GT SCH ×2 (09:08→20:23)
[2016-09-18] MEDS: LEVETIRACETAM SOL (5 ML) 100 MG/ML UDC GT SCH ×2 (09:14→20:22)
[2016-09-18] MEDS: INSULIN DETEMIR 100 UNIT/ML CARTRIDGE SQ SCH (10:45)
[2016-09-18] MEDS: LINEZOLID RTU BAG 600 MG in PREMIX 1 EA IV SCH ×2 (10:46→20:21)
[2016-09-18] MEDS ORDERED: EPOETIN ALFA (10,000 UNIT) 10,000 UNIT/ML VIAL SQ ONE (11:00)
--- NOTE | 2016-09-18 11:01 | NUR ---
TELE/RN NOTES DIALYSIS COMPLETED, TOLERATED WELL, PATIENT IS STABLE, 1L FLUID REMOVED, BLOOD PRESSURE 120/69, P-90, HELD MORNING BLOOD PRESSURE MEDICATIONS. ZYVOX ADMINISTERED
[2016-09-18] MEDS: SCOPOLAMINE HBR 1 EA PATCH.TD72 TD SCH (16:43)
--- NOTE | 2016-09-18 17:37 | NUR ---
RT RECEIVED PT TRACH'D WITH PORTEX #[address] [facility]. GENERAL ACCOUNTING CLERK DONE. VENT PLUGGED INTO RED OUTLET. ALARMS ON AND FUNCTIONING PROPERLY. BILAT RHONCHI BREATH SOUNDS ON AUSCULTATION. AMBU BAG AT BEDSIDE. TX'S GIVEN AND TOLERATED WELL. NO ADVERSE REACTIONS OBSERVED. SUCTIONED MOD AMOUNTS OF THICK, WHITE/YELLOW SECRETIONS. NO SOB OR SIGNS OF DISTRESS NOTED AT THIS TIME. WILL CONTINUE TO MONITOR FOR ANY CHANGE OF CONDITION. Addendum: 09/18/16 at 1740 by RACHAEL FAIRBANKS RT Amended: Links added.
--- NOTE | 2016-09-18 18:45 | NUR ---
TELE/RN NOTES BLOOD SUGAR CHECKED 211, INSULIN REGULAR 4 UNITS GIVEN SQ, PER SLIDING SCALE
--- NOTE | 2016-09-18 18:47 | NUR ---
TELE/RN CLOSING NOTES PATIENT IS IN THE BED, AWAKE, NON-VERBAL, ON MECHANICAL VENT, TOLERATING WELL, O2 SATURATION 100%, SUCTIONED NEEDED. HOB ELEVATED FOR ASPIRATION PRECAUTION, BED IN LOW POSITION, 2 SR UP FOR SAFETY. IV MIDLINE ON RIGHT UPPER ARM INTACT, WITH DRY DRESSING, NO S/SX BLEEDING OR INFECTION. GT INTACT, NO RESIDUAL NOTED EVERY 4 H, PATENT, WITH 35 CC/H NOVASOURCE, TOLERATING WELL, NO ABDOMINAL DISTENTION, HAD BM X2, MEDIUM. TURNED, REPOSITIONED PATIENT EVERY 2H, KEPT CLEAN, DRY,COMFORTABLE, WOUND DRESSING CHANGED ORDERED, INCONTINENT CARE PROVIDED. EPOGEN ADMINISTERED, WELL ANTIBIOTIC POST DIALYSES. WITH CALL LIGHT WITHIN EASY REACH, WILL ENDORSE TO THE MANAGER ASSESSMENT NURSE FOR SHERRY.
[2016-09-18] MEDS: FAMOTIDINE (20 MG) 20 MG TABLET GT SCH (20:22)
[2016-09-19] VITALS (7 sets, daily range): BP systolic 130–154; BP diastolic 57–84
[2016-09-19] MEDS: hydrALAZINE HCL 25 MG TABLET GT SCH ×4 (00:43→17:42)
[2016-09-19] MEDS: METOCLOPRAMIDE HCL 10 MG TABLET GT PRN ×2 (00:43→06:00)
[2016-09-19] MEDS: METOCLOPRAMIDE HCL 10 MG/10 ML UDC PO SCH ×4 (00:44→17:42)
[2016-09-19] MEDS: ACETAMINOPHEN 325 MG TABLET PO PRN (00:58)
--- NOTE | 2016-09-19 01:00 | NUR ---
ms/rn notes Patient in bed, medicated with Tylenol 650 mg via gt for temp.-100.9. Will continue to monitor.
[2016-09-19] MEDS: INSULIN REGULAR, HUMAN 100 UNIT/ML 3 ML VIAL SQ PRN ×4 (01:07→17:44)
[2016-09-19] MEDS: IPRATROPIUM NEB FS 0.5 MG/2.5 ML AMPUL.NEB IH SCH ×3 (01:57→14:50)
[2016-09-19] MEDS: ALBUTEROL FS 2.5 MG/0.5 ML VIAL.NEB IH SCH ×3 (01:57→14:50)
--- NOTE | 2016-09-19 02:30 | NUR ---
ms/rn notes Recheck Vital signs . Patient afebrile. Temp-98.9. Will continue to monitor
[2016-09-19] MEDS: BLOOD SUGAR DIAGNOSTIC 1 EACH STRIP IN SCH ×4 (05:46→17:42)
[2016-09-19] MEDS: RENAL NOVASOURCE 1,000 ML BOTTLE GT PRN (06:08)
--- NOTE | 2016-09-19 06:30 | NUR ---
TRUCK SALES MANAGER CLOSING NOTES PATIENT IN STABLE CONDITION NOTED THROUGHOUT THE SHIFT. PATIENT RESTING COMFORTABLY IN BED. NO SOB OR DISTRESS NOTED AT THIS TIME. VENT SETTINGS REMAIN UNCHANGED. HEART RATE SR IN THE 70S. BED IN A LOW POSITION, CALL LIGHT WITHIN PATIENT REACH. WILL ENDORSE FOR CONTINUITY OF CARE
--- NOTE | 2016-09-19 07:15 | NUR ---
RN CLOSING NOTES ALL NEEDS PROVIDED, ATTENDED, AND ANTICIPATED. ON TELE MONITOR SR HEART RATE OF 85. KEPT PATIENT CLEAN AND COMFORTABLE IN BED, CALL LIGHT WITHIN PATIENT REACH. WILL CONTINUE TO MONITOR ACCORDINGLY
--- NOTE | 2016-09-19 07:15 | NUR ---
RN MS OPENING NOTES PT ON BED,NON VERBAL, OPENS EYES. PATIENT ON VENTILATOR WITH SETTINGS ZF=187, AC=12, RR=12, FI02=40, PORTEX #7. ON TELE MONITOR, SINUS RHYTHM HR=87. ON GT FEEDING. IV ON LEFT UPPER ARM PATENT AND INTACT. RIGHT FEMORAL CATH IN PLACE. BED IN LOWEST LOCKED POSITION, CALL LIGHT IN REACH. BOTH BED RAILS UP. WILL CONTINUE TO MONITOR ACCORDINGLY
[2016-09-19] MEDS: ACETYLCYSTEINE 20% SOLN 800 MG/4 ML VIAL NEB SCH ×2 (07:35→14:50)
[2016-09-19 07:39] LABS: BASOPHILS % (AUTO) 0.2 % (0.0-2.0); EOSINOPHILS # (AUTO) 0.5 /CMM (0.0-0.7); EOSINOPHILS % (AUTO) 4.2 % (0.0-6.0); HEMATOCRIT 29 % (33-45); HEMOGLOBIN 9.9 g/dL (11.5-14.8); LYMPHOCYTES # (AUTO) 1.1 /CMM (0.8-4.8); MEAN CORPUSCULAR HEMOGLOBIN 31 PG (26.0-33.0); MEAN CORPUSCULAR HGB CONC 34 g/dl (31.0-36.0); MEAN CORPUSCULAR VOLUME 90 fL (82-100); MONOCYTES # (AUTO) 0.6 /CMM (0.1-1.30); MONOCYTES % (AUTO) 5.7 % (2.0-12.0); NEUTROPHILS # (AUTO) 8.9 /CMM (1.8-8.9); NEUTROPHILS % (AUTO) 79.9 % (43.0-81.0); PLATELET COUNT (AUTO) 218 /CMM (150-450); RDW COEFFICIENT OF VARIATION 15.1 (11.5-15.0); RED BLOOD CELL COUNT(AUTO) 3.23 MIL/uL (4.0-5.2); WHITE BLOOD COUNT (AUTO) 11.2 K/uL (4.3-11.0)
[2016-09-19 08:00] LABS: CALCIUM, SERUM 8.6 mg/dL (8.5-10.1); CREATININE 5.2 mg/dL (0.6-1.3); MAGNESIUM 2.3 mg/dL (1.8-2.4); PHOSPHORUS 2.6 mg/dL (2.5-4.9); POTASSIUM 4.1 mmol/L (3.5-5.1)
[2016-09-19] MEDS ORDERED: SECONDARY IV SET 1 EA INFUS.SET MC ONE (08:01)
[2016-09-19] MEDS: LINEZOLID RTU BAG 600 MG in PREMIX 1 EA IV SCH (08:15)
[2016-09-19] MEDS: FERROUS SULFATE UDC 300 MG/5 ML UDC GT SCH (08:16)
[2016-09-19] MEDS: VIT B CMPLX 3/FA/VIT C/BIOTIN 1 TAB TABLET PO SCH (08:16)
[2016-09-19] MEDS: PROSOURCE / PROSTAT (PYXIS) 30 ML UDC GT SCH (08:16)
[2016-09-19] MEDS: LEVETIRACETAM SOL (5 ML) 100 MG/ML UDC GT SCH (08:16)
[2016-09-19] MEDS: CHOLESTYRAMINE/ASPARTAME 4 G/PKT PACKET PO SCH (08:16)
[2016-09-19] MEDS: PANTOPRAZOLE 40 MG TABLET.DR PO SCH (08:17)
[2016-09-19] MEDS: VANCOMYCIN HCL 125 MG/2.5 ML ORAL.SUSP GT SCH (08:17)
[2016-09-19] MEDS: ACETAMINOPHEN 650 MG/20.3 ML UDC GT SCH (08:17)
[2016-09-19] MEDS: ASCORBIC ACID 500 MG TABLET GT SCH (08:17)
[2016-09-19] MEDS: AMLODIPINE BESYLATE 5 MG TABLET GT SCH (08:18)
[2016-09-19] MEDS: LOSARTAN POTASSIUM 50 MG TABLET PO SCH (08:18)
[2016-09-19] MEDS: ZINC SULFATE 220 MG CAPSULE GT SCH (08:29)
[2016-09-19] MEDS ORDERED: IV SET PRIMARY PUMP SET 1 EA INFUS.SET MC ONE (08:42)
[2016-09-19] MEDS: INSULIN DETEMIR 100 UNIT/ML CARTRIDGE SQ SCH (08:55)
--- NOTE | 2016-09-19 12:00 | NUR ---
BLOOD GLUCOSE 195 AT 1130 COVERED WITH 2 UNITS
[2016-09-19] MEDS: HYDROGEL DRESSING 90 GM TUBE TP SCH (12:28)
[2016-09-19] MEDS: NEOMY SULF/BACITRAC ZN/POLY 15 GM TUBE TP SCH (12:29)
--- NOTE | 2016-09-19 17:07 | NUR ---
Patient received trached on mech vent as ordered. Breath sounds equal bilateral. Trach midline. Patient suctioned as need it yellow thin secretions. Breathing Tx given as ordered and tolerated well. No adverse reactions noted. Ventilator plugged into red outlet and alarms set and audible. Ambu bag and spare trach at the bed side.
--- NOTE | 2016-09-19 20:40 | NUR ---
DC NOTES: PT FOR DC TO [facility], PT LEFT ACCOMPANIED BY EMT,ALL BELONGING SENT HOME WITH THE PT, STAN MIDLINE NOT REMOVE BECAUSE PT WILL RECEIVE ZYVOX TILL 09/28/16. LEFT FEMORAL HD CATH IN PLACED WITH C/D/I. VS TAKEN AND RECORDED, ALL DC PAPER WORKS COMPLETED BY JAY RN, PICTURES TAKEN, [employer] ATTACHED, ALL DC PAPER WORKS HANDED TO EMT. ARMBAND REMOVED. REPORT GIVEN TO TAMAR BRAVO AT [facility]. PT LEFT IN STABLE CONDITION ACCOMPANIED BY EMT
== END 2016-09-19 20:40 | DRG 711 ==
LOC: ER 09:45 → TELE 12:14
PROVIDERS: ADMIT Internal Medicine Nephrology; ATTEND Internal Medicine Nephrology
PROC: 5A1955Z Respiratory Ventilation, Greater than 96 Consecutive Hours (ICD-10-PCS; 2016-09-12)
PROC: 30233N1 Transfusion of Nonautologous Red Blood Cells into Peripheral Vein, Percutaneous Approach (ICD-10-PCS; 2016-09-12)
PROC: 5A1D60Z (ICD-10-PCS; 2016-09-12)
PROC: 0KBP0ZZ Excision of Left Hip Muscle, Open Approach (ICD-10-PCS; principal; 2016-09-15)
PROC: 0KBN0ZZ Excision of Right Hip Muscle, Open Approach (ICD-10-PCS; principal; 2016-09-15)
PROC: 05H533Z Insertion of Infusion Device into Right Subclavian Vein, Percutaneous Approach (ICD-10-PCS; 2016-09-17)
DX: T85.79XA Infection and inflammatory reaction due to other internal prosthetic devices, implants and grafts, initial encounter (principal); J96.21 Acute and chronic respiratory failure with hypoxia; A41.1 Sepsis due to other specified staphylococcus; G93.1 Anoxic brain damage, not elsewhere classified; J18.9 Pneumonia, unspecified organism; J90 Pleural effusion, not elsewhere classified; L89.94 Pressure ulcer of unspecified site, stage 4; Z99.11 Dependence on respirator [ventilator] status; N18.6 End stage renal disease; I12.0 Hypertensive chronic kidney disease with stage 5 chronic kidney disease or end stage renal disease; R13.10 Dysphagia, unspecified; D64.9 Anemia, unspecified; Z99.2 Dependence on renal dialysis; K21.9 Gastro-esophageal reflux disease without esophagitis; Z93.1 Gastrostomy status; E11.22 Type 2 diabetes mellitus with diabetic chronic kidney disease; B95.8 Unspecified staphylococcus as the cause of diseases classified elsewhere; E78.5 Hyperlipidemia, unspecified; G40.909 Epilepsy, unspecified, not intractable, without status epilepticus; I25.10 Atherosclerotic heart disease of native coronary artery without angina pectoris; J40 Bronchitis, not specified as acute or chronic
CPT/HCPCS: 31720; 36415; 36569; 71010-TC; 80048-TC; 80076-TC; 80202-TC; 82962-TC; 83605-TC; 83735-TC; 84100-TC; 84484-TC; 85025-TC; 85027-TC; 85730-TC; 86850-TC; 86921-TC; 87040-TC; 87081-TC; 87186-TC; 90935-TC; 94002-TC; 94003-TC; 94760-TC; A4216; A4217; A4606; A6248; A6253; A6402; A6403; J0885; J1815; J1953; J2020; J2543; J2997; J3370; J7030; J7040; J7050; J7060; J8597; P9016-BL; Q0162; Z7610

== ENCOUNTER 2016-10-13 13:07 | Inpatient (IN) | payer MEDICARE, MEDICAID ==
[~2016-10-13] VITALS: Ht 162.6 cm; Wt 54.0 kg
[~2016-10-13 13:07] MED LIST changes: -ACET-868 PO; +ACET200V5 NEB; +ACET650S26 GT; +ALBU2.5V13 IH; -ALBUT2 NEB; +BLOO-668 IN; +CHOL4PAC9 GT; +EPOE1VIA4 SQ; -FERR220S2 GT; +FERR300L GT; -INSU100V27 SQ; +INSU100V3 SQ; +IPRA0.2S9 IH; -METR500T GT; -Nystatin PO; +OMEP40CA37 GT; +ONDA-25 GT; -PANT40SU2 GT; -VANC125C11 PO
--- NOTE | 2016-10-13 13:24 | NUR ---
VIBHA BEAN FROM [facility], PATIENT IS NON VERBAL, ON VENT AND HAS RESPIRATORY THEARPY AT BEDSIDE, AT BEDSIDE, PLACED ON MONINTOR AND IN BED WITH GOWN AND 45 DEGREE UPRIGHT POSITION, NO RESPIRATORY DISTERSS, WILL CONTINUE TO MONITOR CLOSELY.
[2016-10-13 13:40] VITALS: BP 132/72
--- NOTE | 2016-10-13 13:40 | NUR ---
PT PLACED ON [facility] VENT VIA TRACH SIZE 7 PORTEX CUFFED. BREATH SOUNDS CLEAR BILATERAL. VENT PARAMETERS BELLOW SET PER RT TRANSPORTER: AC 8 VT 550 FIO2 40% PEEP +5 AMBUBAG @ BEDSIDE Addendum: 10/13/16 at 1409 by FLORES SAMS RT Amended: Links added.
[2016-10-13 14:29] LABS: BASOPHILS % (AUTO) 0.4 % (0.0-2.0); EOSINOPHILS # (AUTO) 0.8 /CMM (0.0-0.7); EOSINOPHILS % (AUTO) 7.2 % (0.0-6.0); HEMATOCRIT 31 % (33-45); HEMOGLOBIN 10.2 g/dL (11.5-14.8); LYMPHOCYTES # (AUTO) 1.1 /CMM (0.8-4.8); LYMPHOCYTES % (AUTO) 10.3 % (20.0-44.0); MEAN CORPUSCULAR HEMOGLOBIN 32 PG (26.0-33.0); MEAN CORPUSCULAR HGB CONC 33 g/dl (31.0-36.0); MEAN CORPUSCULAR VOLUME 96 fL (82-100); MONOCYTES # (AUTO) 0.6 /CMM (0.1-1.30); MONOCYTES % (AUTO) 5.1 % (2.0-12.0); NEUTROPHILS # (AUTO) 8.6 /CMM (1.8-8.9); PLATELET COUNT (AUTO) 285 /CMM (150-450); RDW COEFFICIENT OF VARIATION 17.3 (11.5-15.0); RED BLOOD CELL COUNT(AUTO) 3.23 MIL/uL (4.0-5.2); WHITE BLOOD COUNT (AUTO) 11.1 K/uL (4.3-11.0)
[2016-10-13] MEDS ORDERED: PANTOPRAZOLE 40 MG VIAL IV ONE (14:30)
[2016-10-13] MEDS ORDERED: ONDANSETRON HCL/PF 4 MG/2 ML VIAL IVP ONE (14:30)
[2016-10-13] MEDS ORDERED: ONDANSETRON HCL/PF - ER 4 MG/2 ML VIAL IV ONE (14:30)
[2016-10-13] MEDS ORDERED: ONDANSETRON HCL/PF 4 MG/2 ML VIAL ONE (14:35)
[2016-10-13] MEDS ORDERED: PANTOPRAZOLE 40 MG VIAL ONE (14:35)
[2016-10-13 14:36] LABS: CALCIUM, SERUM 9.6 mg/dL (8.5-10.1); CREATININE 7.2 mg/dL (0.6-1.3); POTASSIUM 5.6 mmol/L (3.5-5.1)
--- NOTE | 2016-10-13 14:43 | NUR ---
DOUBLE ORDER FOR MD FABIAN NOTIFIED, DISCONTINUED SECOND ORDER
[2016-10-13 14:45] LABS: INR 0.99 (0.87-1.13); PROTHROMBIN TIME 10.3 SECS (9.5-12.7)
--- NOTE | 2016-10-13 15:40 | NUR ---
INFORMED NURSING COMMUNICATION PROFESSOR OF NEED FOR TELE BED
--- NOTE | 2016-10-13 15:40 | NUR ---
PAGED DR CUNHA FOR CALL BACK
--- NOTE | 2016-10-13 15:45 | NUR ---
DR CUNHA ON THE LINE WITH DR GONZALES
[2016-10-13 16:22] VITALS: BP 149/74
[2016-10-13 16:30] VITALS: BP 135/65
--- NOTE | 2016-10-13 16:30 | NUR ---
RN NOTES RECEIVED PT ON BED IN ROOM 120-1 , PT NONVERBAL , VENT DEPENDENT, ALL 4 EXTREMITAS CONTRACTED, G TUBE INTACT , R FEMORAL HD CATH INTACT, R FA IV SITE #20 CDI, SACRAL WOUND AND L HEEL SCAB NOTED, ADMISSION SKIN PHOTO TAKEN , WOUND CONSULT ORDERED , SR UP x3, CALL LIGHT WITHIN EASY REACH, CONTINUE TO MONITOR PT CLOSELY AND NOTIFY MD FOR ANY SIGNIFICANT CHANGES.
--- NOTE | 2016-10-13 16:31 | NUR ---
REPORT GIVEN TO PEDRO PABLO RN FOR ROOM 120 B 2, AND ORDERS TAKEN FROM DR. CUNHA
[2016-10-13 16:50] VITALS: BP 135/65
--- NOTE | 2016-10-13 17:11 | NUR ---
transferred from ER 5 TO 120-1. PT. USED SAME [facility] VENT. MECH VENT PLUGGED ON RED OUTLET WITH ALARMS ON AND AUDIBLE. BHARGAV@ BEDSIDE. Addendum: 10/13/16 at 1712 by FLORES SAMS RT Amended: Links added.
[2016-10-13] MEDS ORDERED: RENAL NOVASOURCE 1,000 ML BOTTLE GT PRN (17:30)
[2016-10-13] MEDS: PANTOPRAZOLE 40 MG VIAL IV SCH (18:13)
--- NOTE | 2016-10-13 18:33 | NUR ---
RN NOTES HD NURSE NOTIFED REGARDING HD ORDER .
--- NOTE | 2016-10-13 19:20 | NUR ---
RN NOTES RECEIVED PATIENT RESTING IN BED. PT NON-VERBAL. NO SIGNS OF DISTRESS OR DISCOMFORT. BREATHING EVEN AND UNLABORED. ON MECH VENT WITH SETTINGS ORDERED. ON TELE MONITORING WITH NSR NOTED. HAS R FEMORAL HD CATH AND IV ACCESS IN RFA PATENT AND INTACT, NO SIGNS OF REDNESS OR INFILTRATION. BED IN LOW LOCKED POSITION WITH SIDE RAILS X3. CALL LIGHT WITHIN REACH. WILL CONTINUE TO MONITOR.
[2016-10-13 20:00] VITALS: BP 104/53
--- NOTE | 2016-10-13 20:42 | NUR ---
RN NOTES HD STARTED. HD NURSE IN ROOM WITH PATIENT. WILL CONTINUE TO MONITOR.
[2016-10-13 21:17] LABS: HEMOGLOBIN 9.8 g/dL (11.5-14.8)
--- NOTE | 2016-10-13 22:06 | NUR ---
RN NOTES HD STOPPED. PER HD NURSE THERE IS NO OUTPUT AND HD CATHETER IS NOT WORKING PROPERLY. STATES SHE WILL NOTIFY MD TOMORROW. WILL CONTINUE TO MONITOR.
[2016-10-14] VITALS (8 sets, daily range): BP systolic 90–157; BP diastolic 42–67
[2016-10-14 06:32] LABS: BASOPHILS % (AUTO) 0.2 % (0.0-2.0); EOSINOPHILS # (AUTO) 0.7 /CMM (0.0-0.7); EOSINOPHILS % (AUTO) 8.1 % (0.0-6.0); HEMATOCRIT 33 % (33-45); HEMOGLOBIN 11.2 g/dL (11.5-14.8); LYMPHOCYTES # (AUTO) 1.2 /CMM (0.8-4.8); LYMPHOCYTES % (AUTO) 13.3 % (20.0-44.0); MEAN CORPUSCULAR HEMOGLOBIN 32 PG (26.0-33.0); MEAN CORPUSCULAR HGB CONC 34 g/dl (31.0-36.0); MEAN CORPUSCULAR VOLUME 95 fL (82-100); MONOCYTES # (AUTO) 0.6 /CMM (0.1-1.30); MONOCYTES % (AUTO) 6.4 % (2.0-12.0); NEUTROPHILS # (AUTO) 6.6 /CMM (1.8-8.9); PLATELET COUNT (AUTO) 261 /CMM (150-450); RDW COEFFICIENT OF VARIATION 17.4 (11.5-15.0); RED BLOOD CELL COUNT(AUTO) 3.53 MIL/uL (4.0-5.2); WHITE BLOOD COUNT (AUTO) 9.2 K/uL (4.3-11.0)
--- NOTE | 2016-10-14 06:49 | NUR ---
RN CLOSING NOTES PATIENT RESTING IN BED. PT NON-VERBAL. NO SIGNS OF DISTRESS OR DISCOMFORT. BREATHING EVEN AND UNLABORED. ON MECH VENT WITH SETTINGS ORDERED. ON TELE MONITORING WITH NSR NOTED. HAS R FEMORAL HD CATH AND IV ACCESS IN RFA PATENT AND INTACT, NO SIGNS OF REDNESS OR INFILTRATION. HAS GTUBE FEEDING RUNNING, TOLERATING WELL. ALL NEEDS MET. NO SIGNIFICANT CHANGES THROUGH THE NIGHT. PATIENT KEPT CLEAN DRY AND COMFORTABLE. REPOSITIONED Q2H. BED IN LOW LOCKED POSITION WITH SIDE RAILS X3. CALL LIGHT WITHIN REACH. WILL ENDORSE TO AM SHIFT FOR SHERRY.
[2016-10-14 06:54] LABS: CALCIUM, SERUM 9.3 mg/dL (8.5-10.1); CREATININE 7.2 mg/dL (0.6-1.3); PHOSPHORUS 3.4 mg/dL (2.5-4.9); POTASSIUM 5.4 mmol/L (3.5-5.1)
[2016-10-14] MEDS ORDERED: ONDANSETRON 4 MG TAB.RAPDIS GT PRN (08:30)
[2016-10-14] MEDS ORDERED: RENAL NOVASOURCE 1,000 ML BOTTLE GT PRN (08:30)
[2016-10-14] MEDS ORDERED: METOCLOPRAMIDE HCL 10 MG TABLET GT PRN (08:30)
[2016-10-14] MEDS ORDERED: ACETAMINOPHEN 650 MG/20.3 ML UDC GT PRN (08:30)
[2016-10-14] MEDS ORDERED: PANTOPRAZOLE 40 MG TABLET.DR PO SCH (09:00)
[2016-10-14] MEDS ORDERED: IV NS 0.9% 1,000 ML ONE (09:28)
[2016-10-14] MEDS: CHOLESTYRAMINE/ASPARTAME 4 G/PKT PACKET GT SCH ×2 (09:41→20:43)
[2016-10-14] MEDS: ZINC SULFATE 220 MG CAPSULE GT SCH (09:41)
[2016-10-14] MEDS: LOSARTAN POTASSIUM 50 MG TABLET GT SCH ×2 (09:56→21:00)
[2016-10-14] MEDS: FERROUS SULFATE UDC 300 MG/5 ML UDC GT SCH (09:56)
[2016-10-14] MEDS: SCOPOLAMINE HBR 1 EA PATCH.TD72 TD SCH (09:57)
[2016-10-14] MEDS: PANTOPRAZOLE 40 MG VIAL IV SCH ×2 (09:57→18:13)
[2016-10-14] MEDS: ACETAMINOPHEN 650 MG/20.3 ML UDC GT SCH (09:57)
[2016-10-14] MEDS: FAMOTIDINE (20 MG) 20 MG TABLET GT SCH (09:58)
[2016-10-14] MEDS: VIT B CMPLX 3/FA/VIT C/BIOTIN 1 TAB TABLET GT SCH (09:58)
[2016-10-14] MEDS: ASCORBIC ACID 500 MG TABLET GT SCH (09:58)
[2016-10-14] MEDS: LEVETIRACETAM SOL (5 ML) 100 MG/ML UDC GT SCH ×2 (09:58→20:43)
[2016-10-14] MEDS: AMLODIPINE BESYLATE 5 MG TABLET GT SCH ×2 (09:59→21:00)
[2016-10-14] MEDS ORDERED: SECONDARY IV SET 1 EA INFUS.SET MC ONE (10:21)
[2016-10-14] MEDS: INSULIN DETEMIR 100 UNIT/ML CARTRIDGE SQ SCH (11:50)
[2016-10-14] MEDS: INSULIN REGULAR, HUMAN 100 UNIT/ML 3 ML VIAL SQ PRN ×2 (11:51→18:29)
[2016-10-14] MEDS: hydrALAZINE HCL 25 MG TABLET GT SCH ×2 (12:00→18:14)
[2016-10-14] MEDS: BLOOD SUGAR DIAGNOSTIC 1 EACH STRIP IN SCH ×3 (12:12→23:35)
[2016-10-14] MEDS: ALBUTEROL FS 2.5 MG/3 ML VIAL.NEB NEB SCH ×3 (13:30→20:23)
[2016-10-14] MEDS: IPRATROPIUM NEB FS 0.5 MG/2.5 ML AMPUL.NEB IH SCH ×3 (13:30→20:23)
[2016-10-14] MEDS: ACETYLCYSTEINE 20% SOLN 800 MG/4 ML VIAL NEB SCH ×2 (15:30→23:19)
--- NOTE | 2016-10-14 16:06 | NUR ---
NO GASTRIC TUBE RESIDUAL NOTED. PATIENT MAY BE DUE FOR A NEW G-TUBE. SOME SMALL AMOUNT OF CLEAR RED DRAINAGE FROM SITE. STOOL OCCULT BLOOD SENT TO LAB FOR VERIFICATION.
--- NOTE | 2016-10-14 19:27 | NUR ---
Patient rounds at bedside. Discussed patient hemodialysis. Output possible 800ml. Section [employer] Activities Clerk could not remember said value by dialysis nurse. Patient g-tube feed resumed at this time. It was paused from chief of internal medicine. Patient dressing on coccyx discussed. Noted anuria and blood glucose at 1800. Patient secretions suctioned. Also has scopolamine patch for tracheal secretions.
--- NOTE | 2016-10-14 19:40 | NUR ---
SUPERVISOR PHOSPHORIC ACID NOTE SHAILESH SEGURA DTSimona GAVE CONSENT FOR EGD PROCEDURE OVER THE TELEPHONE. CHARGE NURSE GIANNI WITNESSED IT.
--- NOTE | 2016-10-14 20:00 | NUR ---
FOOD SAFETY FIELD SPECIALIST NOTE RECEIVED PT IN BED WITH EYES CLOSED. NON VERBAL, REMAIN ON VENT/TRACH TOLERATING THE SETTINGS WELL. ON TELE SR 84. GTF NOVASOURCE INFUSING WELL AT 50 ML/HR, O ML RESIDUAL NOTED. KEPT HER HOB ELEVATED. REPOSITION HER Q2H FOR SKIN MANAGEMENT. SIDE RAILS UP X 3 AND CALL LIGHT WITHIN REACH. VSS. CONTINUE TO MONITOR HER.
[2016-10-15] VITALS (7 sets, daily range): BP systolic 102–123; BP diastolic 46–61
[2016-10-15] MEDS: hydrALAZINE HCL 25 MG TABLET GT SCH ×4 (00:17→17:17)
[2016-10-15] MEDS: ALBUTEROL FS 2.5 MG/3 ML VIAL.NEB NEB SCH ×4 (01:38→19:36)
[2016-10-15] MEDS: IPRATROPIUM NEB FS 0.5 MG/2.5 ML AMPUL.NEB IH SCH ×4 (01:38→19:36)
[2016-10-15] MEDS: BLOOD SUGAR DIAGNOSTIC 1 EACH STRIP IN SCH ×3 (06:21→17:25)
--- NOTE | 2016-10-15 06:49 | NUR ---
CHECKER DUMP GROUNDS NOTE NO CHANGE IN CONDITION. PT IN BED ASLEEP, AROUSABLE. NO DISTRESS OR DISCOMFORT NOTED. NO S/S OF PAIN NOTED. . ON TELE SR 75. SIDE RAILS UP X 3 AND CALL LIGHT WITHIN REACH. REPOSITION HER Q2H. KEPT HER DRY AND CLEAN. ALL NEEDS ATTENDED. WILL ENDORSE TO DAY SHIFT NURSE FOR CONTINUE TO CARE.
--- NOTE | 2016-10-15 07:00 | NUR ---
RN NOTE RECEIVED PT ON BED, NON VERBAL, VENT DEPENDENT , TOLERATING CURRENT VENT SETTING WELL, TRCH CARE DONE , ON TELE SR IN 70'S , TF ON HOLD AT THIS TIME FOR EGD TODAY , HOB ELEVATED. REPOSITION HER Q2H FOR SKIN MANAGEMENT. SIDE RAILS UP X 3 AND CALL LIGHT WITHIN REACH. BED IS LOCKED AND IN LOWEST POSITION ,CONTINUE TO MONITOR PT CLOSELY AND NOTIFY MD FOR ANY SIGNIFICANT CHANGES.
[2016-10-15] MEDS: ACETYLCYSTEINE 20% SOLN 800 MG/4 ML VIAL NEB SCH ×3 (07:50→22:38)
--- NOTE | 2016-10-15 08:24 | NUR ---
WOUND CARE CONSULT: PT PRESENTS WITH STAGE IV ULCER WITH FRAGILE HYPERGRANULAR TISSUE AND ODOR. LEFT HEEL PRESENTS WITH ESCHAR. ALL ABOVE ARE PRESENT ON ADMISSION. LOWER EXTREMITES ARE CONTRACTED, MAKING OFFLOADING DIFFICULT. PT ON HAIR ISOFLEX LOW AIRLOSS BED. PT TO BE TURNED AND REPOSITIONED EVERY 2 HRS PT CONDITION PERMTIS, HEELS FLOATED. SURGICAL CONSULT RECOMMENDED. ALL SKIN PROTECTION AND WOUND RECOMMENDATIONS DISCUSSED WITH NURSING STAFF. MD IN AGREEMENT WITH PLAN OF CARE. Addendum: 10/15/16 at 0835 by FIDEL MICHAEL WNDNU Amended: Links added.
[2016-10-15] MEDS ORDERED: Z GUARD REMEDY 2 OZ OINT TP PRN (08:30)
[2016-10-15] MEDS: ASCORBIC ACID 500 MG TABLET GT SCH (09:32)
[2016-10-15] MEDS: LEVETIRACETAM SOL (5 ML) 100 MG/ML UDC GT SCH ×2 (09:32→21:05)
[2016-10-15] MEDS: CHOLESTYRAMINE/ASPARTAME 4 G/PKT PACKET GT SCH ×2 (09:32→21:05)
[2016-10-15] MEDS: ACETAMINOPHEN 650 MG/20.3 ML UDC GT SCH (09:32)
[2016-10-15] MEDS: FERROUS SULFATE UDC 300 MG/5 ML UDC GT SCH (09:32)
[2016-10-15] MEDS: PANTOPRAZOLE 40 MG VIAL IV SCH ×2 (09:33→17:18)
[2016-10-15] MEDS: AMLODIPINE BESYLATE 5 MG TABLET GT SCH ×2 (09:33→21:06)
[2016-10-15] MEDS: ZINC SULFATE 220 MG CAPSULE GT SCH (09:33)
[2016-10-15] MEDS: VIT B CMPLX 3/FA/VIT C/BIOTIN 1 TAB TABLET GT SCH (09:33)
[2016-10-15] MEDS: RENAL NOVASOURCE 1,000 ML BOTTLE GT PRN (09:33)
[2016-10-15] MEDS: Z GUARD REMEDY 2 OZ OINT TP SCH (09:36)
[2016-10-15] MEDS: LOSARTAN POTASSIUM 50 MG TABLET GT SCH ×2 (09:37→21:07)
--- NOTE | 2016-10-15 09:45 | NUR ---
RN NOTES TF STATED BACK PER DR FLETCHER ORDER ,
[2016-10-15] MEDS: INSULIN DETEMIR 100 UNIT/ML CARTRIDGE SQ SCH (10:43)
--- NOTE | 2016-10-15 10:55 | NUR ---
SUGAR SAMPLER NOTE NURSE CONTACTED PHARMACY IN [place] TO [facility] FOR DRESSING CHANGE NURSING STAFF ADVISED THAT [facility] WILL BE DELIVERED AROUND 1200 NOON , NURSING STAFF WILL CONTINUE TO FOLLOW
[2016-10-15] MEDS: DAKINS QUARTER STRENGTH (0.125%) 480 ML BOTTLE TOP SCH (11:30)
[2016-10-15] MEDS ORDERED: ANESTHESIA TRAY IN PYXIS 1 EA TRAY MC ONE (12:16)
--- NOTE | 2016-10-15 14:17 | NUR ---
PERSONNEL COORDINATOR NOTE NO ISSUES NOTED DRESSING CHANGE COMPLETED WITHOUT ISSUES PATIENT TURNED AND REPOSITIONED Q 2HRS. NURSING STAFF WILL CONTINUE TO FOLLOW
--- NOTE | 2016-10-15 18:24 | NUR ---
RN CLOSING NOTES PATIENT RESTING IN BED. PT NON-VERBAL. NO SIGNS OF DISTRESS OR DISCOMFORT. BREATHING EVEN AND UNLABORED. [facility] WITH [facility] ORDERED. ON TELE MONITORING WITH NSR NOTED. HAS R FEMORAL HD CATH AND IV ACCESS IN RFA PATENT AND INTACT, HD SCHEDULED FOR THE AM 10/16/16 NO SIGNS OF REDNESS OR INFILTRATION. HAS GTUBE FEEDING RUNNING, TOLERATING WELL. ALL NEEDS MET. NO SIGNIFICANT CHANGES THROUGH THE DAY. PATIENT KEPT CLEAN DRY AND COMFORTABLE. REPOSITIONED Q2H. BED IN LOW LOCKED POSITION WITH SIDE RAILS X3. CALL LIGHT WITHIN REACH. WILL ENDORSE TO PM SHIFT FOR SHERRY.
--- NOTE | 2016-10-15 20:00 | NUR ---
RN NOTE RECEIVED PT ON BED, NON VERBAL, VENT DEPENDENT , TOLERATING CURRENT VENT SETTING WELL, TRACH CARE DONE , ON TELE SR IN 70'S , GTF RUNNING NOVASOURCE AT 50 ML/HR, NO RESIDUAL, HOB ELEVATED. REPOSITION HER Q2H FOR SKIN MANAGEMENT. SIDE RAILS UP X 3 AND CALL LIGHT WITHIN REACH. BED IS LOCKED AND IN LOWEST POSITION ,CONTINUE TO MONITOR PT CLOSELY AND NOTIFY MD FOR ANY SIGNIFICANT CHANGES.
[2016-10-16] VITALS (7 sets, daily range): BP systolic 108–159; BP diastolic 61–71
[2016-10-16] MEDS: INSULIN REGULAR, HUMAN 100 UNIT/ML 3 ML VIAL SQ PRN ×4 (00:09→17:53)
[2016-10-16] MEDS: IPRATROPIUM NEB FS 0.5 MG/2.5 ML AMPUL.NEB IH SCH ×4 (01:46→20:21)
[2016-10-16] MEDS: ALBUTEROL FS 2.5 MG/3 ML VIAL.NEB NEB SCH ×4 (01:46→20:21)
[2016-10-16] MEDS: RENAL NOVASOURCE 1,000 ML BOTTLE GT PRN (03:38)
[2016-10-16] MEDS: BLOOD SUGAR DIAGNOSTIC 1 EACH STRIP IN SCH ×4 (05:41→17:45)
[2016-10-16] MEDS: hydrALAZINE HCL 25 MG TABLET GT SCH ×4 (05:41→17:43)
[2016-10-16 06:41] LABS: BASOPHILS % (AUTO) 0.4 % (0.0-2.0); EOSINOPHILS # (AUTO) 0.5 /CMM (0.0-0.7); EOSINOPHILS % (AUTO) 5.4 % (0.0-6.0); HEMATOCRIT 30 % (33-45); HEMOGLOBIN 10.1 g/dL (11.5-14.8); LYMPHOCYTES # (AUTO) 1.5 /CMM (0.8-4.8); LYMPHOCYTES % (AUTO) 17.4 % (20.0-44.0); MEAN CORPUSCULAR HEMOGLOBIN 32 PG (26.0-33.0); MEAN CORPUSCULAR HGB CONC 34 g/dl (31.0-36.0); MEAN CORPUSCULAR VOLUME 95 fL (82-100); MONOCYTES # (AUTO) 0.7 /CMM (0.1-1.30); MONOCYTES % (AUTO) 8.2 % (2.0-12.0); NEUTROPHILS # (AUTO) 5.9 /CMM (1.8-8.9); NEUTROPHILS % (AUTO) 68.6 % (43.0-81.0); PLATELET COUNT (AUTO) 266 /CMM (150-450); RDW COEFFICIENT OF VARIATION 17.1 (11.5-15.0); RED BLOOD CELL COUNT(AUTO) 3.13 MIL/uL (4.0-5.2); WHITE BLOOD COUNT (AUTO) 8.5 K/uL (4.3-11.0)
[2016-10-16 07:11] LABS: CREATININE 6.9 mg/dL (0.6-1.3); MAGNESIUM 2.6 mg/dL (1.8-2.4); PHOSPHORUS 3.9 mg/dL (2.5-4.9); POTASSIUM 4.7 mmol/L (3.5-5.1)
[2016-10-16] MEDS: ACETYLCYSTEINE 20% SOLN 800 MG/4 ML VIAL NEB SCH ×3 (07:20→23:45)
--- NOTE | 2016-10-16 07:40 | NUR ---
INITIAL RAIL CREW MEMBER NOTE PT CURRENT RESTING, NON VERBAL, VENT DEPENDENT , TOLERATING CURRENT VENT SETTING WELL , ON TELE SR , G-TUBE FEEDINGS RUNNING NOVASOURCE AT 50 ML/HR, NO RESIDUAL NOTED, HOB ELEVATED. SIDE RAILS UP X 3 AND CALL LIGHT WITHIN REACH. BED IS LOCKED AND IN LOWEST POSITION , NURSING STAFF WILL CONTINUE TO MONITOR PT CLOSELY AND NOTIFY MD FOR ANY SIGNIFICANT CHANGES.
--- NOTE | 2016-10-16 07:42 | NUR ---
RT PATIENT REC'D TRACHED ON [facility] VENT WITH SETTINGS SET PER MD TOLERATED WELL. VENT ALARMS CHECKED + AUDIBLE. VENT PLUGGED INTO RED OUTLETS. CUFF PRESSURE CHECKED DRY STARCH OPERATOR. TRACH SECURE AND IN GOOD POSITION. BILAT DIM COARSE B/S HEARD. SX'D WITH SMALL AMT PALE SEMITHICK SECRETIONS. PATIENT APPEARS COMFORTABLE AND IN NO RESP DISTRESS. AMBU BAG AT HOB. CONT CURRENT PLAN OF RESP CARE. Addendum: 10/16/16 at 0742 by DANELLE MORTENSEN RT Amended: Links added.
[2016-10-16] MEDS: ASCORBIC ACID 500 MG TABLET GT SCH (08:36)
[2016-10-16] MEDS: AMLODIPINE BESYLATE 5 MG TABLET GT SCH ×2 (08:36→21:47)
[2016-10-16] MEDS: ZINC SULFATE 220 MG CAPSULE GT SCH (08:36)
[2016-10-16] MEDS: VIT B CMPLX 3/FA/VIT C/BIOTIN 1 TAB TABLET GT SCH (08:37)
[2016-10-16] MEDS: FAMOTIDINE (20 MG) 20 MG TABLET GT SCH (08:37)
[2016-10-16] MEDS: CHOLESTYRAMINE/ASPARTAME 4 G/PKT PACKET GT SCH ×2 (08:37→21:48)
[2016-10-16] MEDS: LEVETIRACETAM SOL (5 ML) 100 MG/ML UDC GT SCH ×2 (08:37→21:48)
[2016-10-16] MEDS: PANTOPRAZOLE 40 MG VIAL IV SCH ×2 (08:37→17:43)
[2016-10-16] MEDS: Z GUARD REMEDY 2 OZ OINT TP SCH (08:38)
[2016-10-16] MEDS: FERROUS SULFATE UDC 300 MG/5 ML UDC GT SCH (08:38)
[2016-10-16] MEDS: DAKINS QUARTER STRENGTH (0.125%) 480 ML BOTTLE TOP SCH (08:38)
[2016-10-16] MEDS: ACETAMINOPHEN 650 MG/20.3 ML UDC GT SCH (08:38)
[2016-10-16] MEDS: INSULIN DETEMIR 100 UNIT/ML CARTRIDGE SQ SCH (08:42)
[2016-10-16] MEDS: LOSARTAN POTASSIUM 50 MG TABLET GT SCH ×2 (09:07→21:48)
--- NOTE | 2016-10-16 10:13 | NUR ---
teletypesetter operator note HD present in patient room , hd nurse given patient most recent potassium level 4.7
--- NOTE | 2016-10-16 18:48 | NUR ---
RN CLOSING NOTES PATIENT RESTING IN BED. PT NON-VERBAL. NO SIGNS OF DISTRESS OR DISCOMFORT. BREATHING EVEN AND UNLABORED. [facility] ORDERED. ON TELE MONITORING WITH NSR NOTED. HAS R FEMORAL HD CATH 1 L FLUID REMOVED TODAY 10/16/16 VIA HD AND IV ACCESS IN RFA PATENT AND INTACT, NO SIGNS OF REDNESS OR INFILTRATION. HAS GTUBE FEEDING RUNNING, TOLERATING WELL. ALL NEEDS MET. NO SIGNIFICANT CHANGES THROUGH THE DAY. PATIENT KEPT CLEAN DRY AND COMFORTABLE. REPOSITIONED Q2H. BED IN LOW LOCKED POSITION WITH SIDE RAILS X3. CALL LIGHT WITHIN REACH. WILL ENDORSE TO PM SHIFT FOR SHERRY.
--- NOTE | 2016-10-16 20:00 | NUR ---
RN INITIAL NOTE; PT IN THE BED NON VERBAL , OPEN EYES TO PAIN, ON MECH VENT , SETTING ORDERED . TELE MONITOR SHOWING NSR 70 , PERIPHERAL IV IN RFA 20 G INTACT AND PATENT , R FEMORAL HD CATH INTACT . G TUBE INTACT AND NOVASOURCE @ 50 ML CONTINUE , NO RESIDUAL NOTED. ASPIRATION PRECAUTION APPLIED. PT IS ANURIC, INCONTINENT TO BOWEL. BED IN THE LOWEST/LOCKED POSITION, SAFETY MEASURES APPLIED. WILL TURN AND REPOSITION Q2H , WILL CONTINUE TO MONITOR .
[2016-10-17] VITALS: BP 121/79
[2016-10-17] MEDS: INSULIN REGULAR, HUMAN 100 UNIT/ML 3 ML VIAL SQ PRN ×4 (00:31→17:10)
[2016-10-17] MEDS: RENAL NOVASOURCE 1,000 ML BOTTLE GT PRN (00:32)
[2016-10-17] MEDS: BLOOD SUGAR DIAGNOSTIC 1 EACH STRIP IN SCH ×5 (00:32→23:34)
[2016-10-17] MEDS: hydrALAZINE HCL 25 MG TABLET GT SCH ×4 (00:46→17:04)
[2016-10-17] MEDS: ALBUTEROL FS 2.5 MG/3 ML VIAL.NEB NEB SCH ×4 (02:02→19:30)
[2016-10-17] MEDS: IPRATROPIUM NEB FS 0.5 MG/2.5 ML AMPUL.NEB IH SCH ×4 (02:02→19:30)
[2016-10-17 04:00] VITALS: BP 103/60
--- NOTE | 2016-10-17 07:02 | NUR ---
RN EOS NOTE; PT REMAINED STABLE DURING THE SHIFT. NO ANY DISTRESS NOTED . V/S WNL . IV SITE, HD CATH INTACT .G TUBE FEEDING TOLERATED WELL. NO RESIDUAL NOTED .TOTAL CARE RENDERED . TURNED AND REPOSITIONED Q2H .WILL ENDORSE TO NEXT SHIFT RN FOR CONTINUITY OF CARE.
[2016-10-17] MEDS: ACETYLCYSTEINE 20% SOLN 800 MG/4 ML VIAL NEB SCH ×2 (07:38→13:31)
[2016-10-17 08:00] VITALS: BP 108/54
--- NOTE | 2016-10-17 08:00 | NUR ---
TELE1/RN AM SHIFT INITIAL NOTES RECEIVED PT ASLEEP IN BED, AROUSEABLE. MOVES TO PAIN, NON-VERBAL. NO ACTIVE BLEEDING OR ACUTE CHANGE OF CONDITION NOTED. ON VENTILATOR RATES SET PRESCRIBED, SATURATING @ 100%, LUNG SOUNDS CLEAR, SUCTIONED FOR AIRWAY CLEARANCE. ON TELE WITH SINUS RHYTHM, HR 84. GTF @ 50CC/HR, NO GASTRIC RESIDUAL NOTED. FLUSHED, PATENT. IV SITE FLUSHED, PATENT WITH NO S/S OF INFECTION. PT IS COMFORTABLE AT THIS TIME. SCHEDULED AM MEDS TO BE GIVEN. CL WITHIN REACHED AND SAFETY MAINTAINED. ON GOING MONITORING.
[2016-10-17] MEDS: LEVETIRACETAM SOL (5 ML) 100 MG/ML UDC GT SCH ×2 (08:48→22:17)
[2016-10-17] MEDS: FERROUS SULFATE UDC 300 MG/5 ML UDC GT SCH (08:48)
[2016-10-17] MEDS: ACETAMINOPHEN 650 MG/20.3 ML UDC GT SCH (08:48)
[2016-10-17] MEDS: CHOLESTYRAMINE/ASPARTAME 4 G/PKT PACKET GT SCH ×2 (08:49→22:17)
[2016-10-17] MEDS: ASCORBIC ACID 500 MG TABLET GT SCH (08:49)
[2016-10-17] MEDS: PANTOPRAZOLE 40 MG VIAL IV SCH ×2 (08:49→16:43)
[2016-10-17] MEDS: VIT B CMPLX 3/FA/VIT C/BIOTIN 1 TAB TABLET GT SCH (08:49)
[2016-10-17] MEDS: AMLODIPINE BESYLATE 5 MG TABLET GT SCH ×2 (08:49→22:17)
[2016-10-17] MEDS: SCOPOLAMINE HBR 1 EA PATCH.TD72 TD SCH (08:49)
[2016-10-17] MEDS: LOSARTAN POTASSIUM 50 MG TABLET GT SCH ×2 (08:50→22:17)
[2016-10-17] MEDS: ZINC SULFATE 220 MG CAPSULE GT SCH (08:50)
[2016-10-17] MEDS: Z GUARD REMEDY 2 OZ OINT TP SCH (08:50)
[2016-10-17] MEDS: DAKINS QUARTER STRENGTH (0.125%) 480 ML BOTTLE TOP SCH (08:50)
[2016-10-17] MEDS: INSULIN DETEMIR 100 UNIT/ML CARTRIDGE SQ SCH (08:54)
[2016-10-17 12:00] VITALS: BP 105/50
--- NOTE | 2016-10-17 12:00 | NUR ---
TELE1/RN NOON ROUNDS PT SUCTIONED AND REPOSITIONED. NO CHANGE OF CONDITION. MONITORING CONTINUED.
[2016-10-17 12:44] LABS: EOSINOPHILS # (AUTO) 0.3 /CMM (0.0-0.7); EOSINOPHILS % (AUTO) 2.4 % (0.0-6.0); HEMATOCRIT 28 % (33-45); HEMOGLOBIN 9.4 g/dL (11.5-14.8); LYMPHOCYTES # (AUTO) 0.9 /CMM (0.8-4.8); LYMPHOCYTES % (AUTO) 7.7 % (20.0-44.0); MEAN CORPUSCULAR HEMOGLOBIN 32 PG (26.0-33.0); MEAN CORPUSCULAR HGB CONC 34 g/dl (31.0-36.0); MEAN CORPUSCULAR VOLUME 94 fL (82-100); MONOCYTES # (AUTO) 0.7 /CMM (0.1-1.30); MONOCYTES % (AUTO) 6.1 % (2.0-12.0); NEUTROPHILS # (AUTO) 9.8 /CMM (1.8-8.9); NEUTROPHILS % (AUTO) 83.8 % (43.0-81.0); PLATELET COUNT (AUTO) 268 /CMM (150-450); RDW COEFFICIENT OF VARIATION 16.4 (11.5-15.0); RED BLOOD CELL COUNT(AUTO) 2.97 MIL/uL (4.0-5.2); WHITE BLOOD COUNT (AUTO) 11.7 K/uL (4.3-11.0)
[2016-10-17 16:00] VITALS: BP 102/62
--- NOTE | 2016-10-17 19:40 | NUR ---
RN INITIAL NOTE PT ON THE BED , WITH TRACH /MECH VENT, SETTINGS -AC 8, TV 550, FIO2 40% ,PEEP-5 , TELE MONITOR SHOWING SR 91 , RFA 20 G AND R FEMORAL HD CATH INTACT . PT IS ANURIC . BED IN THE LOWEST/LOCKED POSITION . SAFETY MEASURES APPLIED. PT VOMITED X 1 , MEDIUM AMOUNT , PRN ZOFRAN GIVEN ORDERED , G TUBE RESIDUAL NOTED > 150 ML, FEEDING HELD AT THIS TIME . ASPIRATION PRECAUTION APPLIED . WILL CONTINUE TO MONITOR
--- NOTE | 2016-10-17 19:42 | NUR ---
TELE1/RN AM SHIFT END NOTES ALL NEEDS MET. NO ACUTE CHANGE OF CONDITION NOTED DURING SHIFT. PT ENDORSED TO PM NURSE TO CONTINUE CARE. CL WITHIN REACHED AND SAFETY MAINTAINED.
[2016-10-17 20:00] VITALS: BP 114/61
--- NOTE | 2016-10-17 21:40 | NUR ---
ADVERSE REACTION. PT ASPIRATING PER RN. Addendum: 10/17/16 at 2141 by JERE LOPES RT Amended: Links added.
--- NOTE | 2016-10-17 21:45 | NUR ---
RN NOTE; G TUBE RESIDUAL NOTED 30 ML , NO NAUSEA/VOMIT NOTED . FEEDING RESUMED AT THIS TIME . ASPIRATION PRECAUTION APPLIED. WILL CONTINUE TO MONITOR .
[2016-10-18] VITALS: BP 90/57
[2016-10-18] MEDS: ALBUTEROL FS 2.5 MG/3 ML VIAL.NEB NEB SCH ×4 (02:06→21:18)
[2016-10-18] MEDS: ACETYLCYSTEINE 20% SOLN 800 MG/4 ML VIAL NEB SCH ×4 (02:06→23:39)
[2016-10-18] MEDS: IPRATROPIUM NEB FS 0.5 MG/2.5 ML AMPUL.NEB IH SCH ×4 (02:06→21:18)
[2016-10-18 04:00] VITALS: BP 91/49
[2016-10-18] MEDS: RENAL NOVASOURCE 1,000 ML BOTTLE GT PRN (05:06)
[2016-10-18] MEDS: hydrALAZINE HCL 25 MG TABLET GT SCH ×4 (06:00→17:42)
[2016-10-18] MEDS: INSULIN REGULAR, HUMAN 100 UNIT/ML 3 ML VIAL SQ PRN ×3 (06:20→17:47)
[2016-10-18] MEDS: BLOOD SUGAR DIAGNOSTIC 1 EACH STRIP IN SCH ×3 (06:21→17:42)
--- NOTE | 2016-10-18 07:10 | NUR ---
RN EOS NOTE; FEEDING TOLERATED WELL AT THIS TIME, NO RESIDUAL NOTED. ASPIRATION PRECAUTION APPLIED. TOTAL CARE RENDERED , REPOSITIONED Q2H . BM X 1 . KEPT CLEAN AND DRY .ENDORSED TO NEXT SHIFT RN FOR CONTINUITY OF CARE .
[2016-10-18 07:20] LABS: BASOPHILS % (AUTO) 0.2 % (0.0-2.0); EOSINOPHILS # (AUTO) 0.3 /CMM (0.0-0.7); EOSINOPHILS % (AUTO) 2.3 % (0.0-6.0); HEMATOCRIT 29 % (33-45); HEMOGLOBIN 9.8 g/dL (11.5-14.8); LYMPHOCYTES # (AUTO) 1.2 /CMM (0.8-4.8); LYMPHOCYTES % (AUTO) 10.6 % (20.0-44.0); MEAN CORPUSCULAR HEMOGLOBIN 32 PG (26.0-33.0); MEAN CORPUSCULAR HGB CONC 34 g/dl (31.0-36.0); MEAN CORPUSCULAR VOLUME 95 fL (82-100); MONOCYTES # (AUTO) 0.6 /CMM (0.1-1.30); MONOCYTES % (AUTO) 5.6 % (2.0-12.0); NEUTROPHILS % (AUTO) 81.3 % (43.0-81.0); PLATELET COUNT (AUTO) 267 /CMM (150-450); RDW COEFFICIENT OF VARIATION 16.6 (11.5-15.0); RED BLOOD CELL COUNT(AUTO) 3.03 MIL/uL (4.0-5.2); WHITE BLOOD COUNT (AUTO) 11.1 K/uL (4.3-11.0)
--- NOTE | 2016-10-18 07:20 | NUR ---
RN INITIAL NOTES: Rec'd pt on bed, HOB elevated, not in any form of distress. Pt on mech vent via trach (Portex 7) w/ ff settings: AC 8, TV 550, FiO2 40%, PEEP 5, saturating at 100%. On telemonitor, SR. Has patent & intact PEG, on Novasource at 50 cc/hr infusing well, no residual noted upon checking. Has RFA G20, SL, flushed, patent & intact w/ no signs of infection/ infiltration noted. Has R femoral permacath in place, intact. Provided comfort & safety measures. Call light placed w/in reach. Bed kept low & in locked pos. Will continue to monitor.
[2016-10-18 07:38] LABS: CALCIUM, SERUM 9.3 mg/dL (8.5-10.1); MAGNESIUM 2.8 mg/dL (1.8-2.4); PHOSPHORUS 3.2 mg/dL (2.5-4.9); POTASSIUM 5.2 mmol/L (3.5-5.1)
[2016-10-18 07:41] LABS: CREATININE 8.1 mg/dL (0.6-1.3)
[2016-10-18 08:00] VITALS: BP 99/53
[2016-10-18] MEDS: CHOLESTYRAMINE/ASPARTAME 4 G/PKT PACKET GT SCH ×2 (08:12→22:02)
[2016-10-18] MEDS: FERROUS SULFATE UDC 300 MG/5 ML UDC GT SCH (08:12)
[2016-10-18] MEDS: ACETAMINOPHEN 650 MG/20.3 ML UDC GT SCH (08:12)
[2016-10-18] MEDS: ASCORBIC ACID 500 MG TABLET GT SCH (08:13)
[2016-10-18] MEDS: ZINC SULFATE 220 MG CAPSULE GT SCH (08:13)
[2016-10-18] MEDS: VIT B CMPLX 3/FA/VIT C/BIOTIN 1 TAB TABLET GT SCH (08:13)
[2016-10-18] MEDS: FAMOTIDINE (20 MG) 20 MG TABLET GT SCH (08:13)
[2016-10-18] MEDS: PANTOPRAZOLE 40 MG VIAL IV SCH ×2 (08:13→17:40)
[2016-10-18] MEDS: LEVETIRACETAM SOL (5 ML) 100 MG/ML UDC GT SCH ×2 (08:13→22:02)
[2016-10-18] MEDS: DAKINS QUARTER STRENGTH (0.125%) 480 ML BOTTLE TOP SCH (08:14)
[2016-10-18] MEDS: Z GUARD REMEDY 2 OZ OINT TP SCH (08:14)
[2016-10-18] MEDS: AMLODIPINE BESYLATE 5 MG TABLET GT SCH ×2 (09:00→22:01)
[2016-10-18] MEDS: LOSARTAN POTASSIUM 50 MG TABLET GT SCH ×2 (09:00→22:01)
[2016-10-18] MEDS: INSULIN DETEMIR 100 UNIT/ML CARTRIDGE SQ SCH (09:27)
[2016-10-18 12:00] VITALS: BP 103/53
[2016-10-18 16:00] VITALS: BP 94/57
--- NOTE | 2016-10-18 18:52 | NUR ---
RN INITIAL NOTES: No acute changes noted w/in shift. Pt tolerated prescribed mech vent via settings. Suctioned secretions. PEG kept patent & intact on Novasource x 50 cc/hr infusing well, no residual noted w/in shift. RFA G20, kept patent & intact w/ no signs of infection/ infiltration noted. R femoral permacath kept in place, intact. Pt tolerated HD w/ 1L output. Kept well rested. Call light placed w/in reach. Bed kept low & in locked pos. Will endorse to PM RN for SHERRY. Addendum: 10/18/16 at 1853 by NILTON HURTADO RN CORRECTION: RN CLOSING NOTES
--- NOTE | 2016-10-18 19:30 | NUR ---
RN INITIAL NOTE RECEIVED PT IN NO ACUTE DISTRESS IN BED. PT IS OBTUNDED, NON VERBAL, BUT RESPONDS TO PAINFUL STIMULI. PT IS ON MECHANICAL VENT VIA TRACH, TRACH SITE IS CLEAN DRY AND INTACT. PT TOLERATING VENT SETTING WELL WITH O2 SAT @ 98%. PT IS ON TELE WITH SR ON THE MONITOR. PT HAS GTUBE THAT IS CLEAN DRY INTACT AND PATENT WITH NOVASOURCE @ 50ML/HR AND TOLERATING WELL WITH 0 RESIDUAL. PT HAS RFA 20G THAT IS CLEAN DRY INTACT AND PATENT WITH SALINE LOCK. PT HAS R FEMORAL PERMACATH THAT IS CLEAN DRY AND INTACT. BED IN LOW LOCK POSITION WITH RAILS UP X 2. CALL LIGHT WITHIN REACH AND ALL SAFETY MEASURES ENSURED AND CARRIED OUT. WILL CONTINUE TO MONITOR FOR ANY CHANGES IN CONDITION.
[2016-10-18 20:00] VITALS: BP 113/68
[2016-10-19] VITALS: BP 97/60
[2016-10-19] MEDS: BLOOD SUGAR DIAGNOSTIC 1 EACH STRIP IN SCH ×4 (00:52→17:26)
[2016-10-19] MEDS: INSULIN REGULAR, HUMAN 100 UNIT/ML 3 ML VIAL SQ PRN ×3 (00:54→17:27)
[2016-10-19] MEDS: ALBUTEROL FS 2.5 MG/3 ML VIAL.NEB NEB SCH ×4 (02:20→19:11)
[2016-10-19] MEDS: IPRATROPIUM NEB FS 0.5 MG/2.5 ML AMPUL.NEB IH SCH ×4 (02:20→19:11)
[2016-10-19 04:00] VITALS: BP 129/61
[2016-10-19] MEDS: hydrALAZINE HCL 25 MG TABLET GT SCH ×4 (05:26→17:26)
--- NOTE | 2016-10-19 06:39 | NUR ---
RN CLOSING NOTE PT REMAINS IN NO ACUTE DISTRESS IN BED. PT DID NOT HAVE ANY SIGNIFICANT CHANGE IN CONDITION. ALL NEEDS MET ALL ORDERS CARRIED OUT. WILL ENDORSE TO AM RN FOR CONTINUITY OF CARE.
--- NOTE | 2016-10-19 07:20 | NUR ---
RN INITIAL NOTES: Rec'd pt on bed, HOB elevated, not in any form of distress. Pt on mech vent via trach (Portex 7) w/ ff settings: AC 8, TV 550, FiO2 40%, PEEP 5. On telemonitor, SR. Has patent & intact PEG, on Novasource at 50 cc/hr infusing well, no residual noted upon checking. Has RFA G20, SL, flushed, patent & intact w/ no signs of infection/ infiltration noted. Has R femoral permacath in place, intact. Provided comfort & safety measures. Call light placed w/in reach. Bed kept low & in locked pos. Will continue to monitor.
[2016-10-19] MEDS: ACETYLCYSTEINE 20% SOLN 800 MG/4 ML VIAL NEB SCH ×3 (07:30→23:14)
[2016-10-19 07:41] LABS: CALCIUM, SERUM 9.4 mg/dL (8.5-10.1); CREATININE 6.4 mg/dL (0.6-1.3); MAGNESIUM 2.5 mg/dL (1.8-2.4); PHOSPHORUS 3.1 mg/dL (2.5-4.9); POTASSIUM 5.1 mmol/L (3.5-5.1)
[2016-10-19 08:00] VITALS: BP 109/64
[2016-10-19 08:16] LABS: BASOPHILS % (AUTO) 0.1 % (0.0-2.0); EOSINOPHILS # (AUTO) 0.8 /CMM (0.0-0.7); EOSINOPHILS % (AUTO) 7.4 % (0.0-6.0); HEMATOCRIT 30 % (33-45); HEMOGLOBIN 10.6 g/dL (11.5-14.8); LYMPHOCYTES # (AUTO) 1.1 /CMM (0.8-4.8); LYMPHOCYTES % (AUTO) 10.1 % (20.0-44.0); MEAN CORPUSCULAR HEMOGLOBIN 33 PG (26.0-33.0); MEAN CORPUSCULAR HGB CONC 35 g/dl (31.0-36.0); MEAN CORPUSCULAR VOLUME 94 fL (82-100); MONOCYTES # (AUTO) 0.7 /CMM (0.1-1.30); MONOCYTES % (AUTO) 6.4 % (2.0-12.0); NEUTROPHILS # (AUTO) 8.4 /CMM (1.8-8.9); PLATELET COUNT (AUTO) 260 /CMM (150-450); RDW COEFFICIENT OF VARIATION 15.4 (11.5-15.0); RED BLOOD CELL COUNT(AUTO) 3.25 MIL/uL (4.0-5.2)
[2016-10-19] MEDS: LOSARTAN POTASSIUM 50 MG TABLET GT SCH ×2 (08:20→20:30)
[2016-10-19] MEDS: VIT B CMPLX 3/FA/VIT C/BIOTIN 1 TAB TABLET GT SCH (08:21)
[2016-10-19] MEDS: ACETAMINOPHEN 650 MG/20.3 ML UDC GT SCH (08:21)
[2016-10-19] MEDS: ASCORBIC ACID 500 MG TABLET GT SCH (08:21)
[2016-10-19] MEDS: CHOLESTYRAMINE/ASPARTAME 4 G/PKT PACKET GT SCH ×2 (08:21→20:29)
[2016-10-19] MEDS: FERROUS SULFATE UDC 300 MG/5 ML UDC GT SCH (08:22)
[2016-10-19] MEDS: LEVETIRACETAM SOL (5 ML) 100 MG/ML UDC GT SCH ×2 (08:22→20:29)
[2016-10-19] MEDS: AMLODIPINE BESYLATE 5 MG TABLET GT SCH ×2 (08:22→20:29)
[2016-10-19] MEDS: PANTOPRAZOLE 40 MG VIAL IV SCH ×2 (08:23→17:25)
[2016-10-19] MEDS: ZINC SULFATE 220 MG CAPSULE GT SCH (08:23)
[2016-10-19] MEDS: INSULIN DETEMIR 100 UNIT/ML CARTRIDGE SQ SCH (08:28)
[2016-10-19] MEDS: Z GUARD REMEDY 2 OZ OINT TP SCH (08:55)
[2016-10-19] MEDS: DAKINS QUARTER STRENGTH (0.125%) 480 ML BOTTLE TOP SCH (08:56)
[2016-10-19 12:00] VITALS: BP 96/57
--- NOTE | 2016-10-19 13:00 | NUR ---
RN NOTES: As per Dr. Jose M hercules to decrease TF to 45 cc/hr x 17 hrs.
[2016-10-19] MEDS ORDERED: RENAL NOVASOURCE 1,000 ML BOTTLE GT PRN (13:10)
[2016-10-19] MEDS ORDERED: ALTEPLASE CATHFLO 2 MG/VIAL IV ONE (14:00)
--- NOTE | 2016-10-19 15:00 | NUR ---
RN NOTES: HD started.
[2016-10-19 16:00] VITALS: BP 107/60
--- NOTE | 2016-10-19 17:00 | NUR ---
RN NOTES: Pt tolerated well HD, 1L output. Cathflo Alteplase cathflo given by HD RN.
--- NOTE | 2016-10-19 17:46 | NUR ---
RT RECEIVED PT TRACHED WITH PORTEX #7 CUFFED ON [facility] VENT WITH SETTINGS PER MD ORDER. HAIR SPINNER DONE. BILAT BREATH SOUNDS ON AUSCULTATION. VENT PLUGGED INTO RED OUTLET. ALARMS ON AND AUDIBLE. AMBU BAG AT HEAD OF BED. TRACH SECURED VIA TRACH TIE AND AIRWAY PATENT. SUCTIONS MOD AMOUNTS OF THICK, PALE YELLOW SECRETIONS. TX'S GIVEN AND TOLERATED WELL. NO ADVERSE REACTIONS OBSERVED. NO SIGNS OF DISTRESS NOTED AT THIS TIME. WILL CONTINUE TO MONITOR THE PATIENT CLOSELY FOR ANY CHANGE OF CONDITION. Addendum: 10/19/16 at 1801 by RACHAEL FAIRBANKS RT Amended: Links added.
--- NOTE | 2016-10-19 18:51 | NUR ---
RN CLOSING NOTES: No acute changes noted w/in shift. Pt tolerated prescribed mech vent via settings. Suctioned secretions. PEG kept patent & intact on Novasource x 45 cc/hr infusing well, no residual noted w/in shift. RFA G20, kept patent & intact w/ no signs of infection/ infiltration noted. R femoral permacath kept in place, intact. Pt tolerated HD w/ 1L output. Kept well rested. Call light placed w/in reach. Bed kept low & in locked pos. Wound care done. Turned, repositioned & offloaded heels. Will endorse to PM RN for SHERRY.
--- NOTE | 2016-10-19 19:20 | NUR ---
CONTRACT TECHNICAL WRITER INITIAL NOTES PT IS IN BED, EYES CLOSED, OBTUNDED. TRACH INTACT, RESPONSE TO PAIN. NO RESPIRATORY DISTRESS NOTED. ON TELE MONITOR ON MECHANICAL VENT AND TURNED AND REPOSITIONED. ON NOVASOURCE @ 45ML/HR. IV SITE RFA FLUSHED AND PATENT. BED LOCKED AND IN LOWEST POSITION. SIDE RAILS UP, WILL CONTINUE TO MONITOR CLOSELY.
[2016-10-19 20:00] VITALS: BP 117/55
--- NOTE | 2016-10-19 22:30 | NUR ---
MEDICAL ACCOUNTANT NOTES PT NOTED SMALL AMOUNT OF VOMIT, YELLOWISH COLOR. CHECKED FOR RESIDUAL, O RESIDUAL NOTED. WILL HOLD GT FEEDING FOR 2 HOURS.
[2016-10-20] VITALS: BP 121/90
[2016-10-20] MEDS: BLOOD SUGAR DIAGNOSTIC 1 EACH STRIP IN SCH ×4 (00:19→17:05)
[2016-10-20] MEDS: hydrALAZINE HCL 25 MG TABLET GT SCH ×4 (00:21→17:02)
--- NOTE | 2016-10-20 00:30 | NUR ---
STATION ENGINEER NOTES NO RESIDUAL NOTED, NO MORE EPISODES OF VOMITING, HOB ELEVATED, RESUMED FEEDING.WILL CONTINUE TO MONITOR
[2016-10-20] MEDS: INSULIN REGULAR, HUMAN 100 UNIT/ML 3 ML VIAL SQ PRN ×4 (00:32→17:09)
[2016-10-20] MEDS: IPRATROPIUM NEB FS 0.5 MG/2.5 ML AMPUL.NEB IH SCH ×3 (01:51→13:53)
[2016-10-20] MEDS: ALBUTEROL FS 2.5 MG/3 ML VIAL.NEB NEB SCH ×3 (01:51→13:53)
[2016-10-20 04:00] VITALS: BP 97/60
--- NOTE | 2016-10-20 07:02 | NUR ---
INJECTION MOLDING MACHINE OFFBEARER CLOSING NOTES NO SIGNIFICANT CHANGES OVERNIGHT. NO RESPIRATORY DISTRESS NOTED, TRACH GIVEN, TOLERATING CURRENT VENT SETTINGS, GT FEEDING PATENT, HOB ELEVATED AND CONTINUOUS FEEDING AT 45ML/HR, NO RESIDUAL NOTED, RIGHT FA IS PATENT, NO S/SX OF INFECTION/INFILTRATION NOTED. WOUND CARE DONE, NO NEW SKIN BREAKDOWN NOTED. TURNED AND REPOSITIONED Q2H AND PRN, KEPT CLEAN AND DRY, BED LOCKED AND IN LOWEST POSITION, SIDE RAILS UP, ALL SAFETY MEASURES MET, WILL ENDORSED TO AM NURSE FOR CONTINUATION OF CARE.
[2016-10-20] MEDS: ACETYLCYSTEINE 20% SOLN 800 MG/4 ML VIAL NEB SCH ×2 (07:05→16:08)
[2016-10-20 07:08] LABS: BASOPHILS % (AUTO) 0.3 % (0.0-2.0); EOSINOPHILS # (AUTO) 0.6 /CMM (0.0-0.7); EOSINOPHILS % (AUTO) 7.9 % (0.0-6.0); HEMATOCRIT 30 % (33-45); HEMOGLOBIN 10.3 g/dL (11.5-14.8); LYMPHOCYTES # (AUTO) 1.2 /CMM (0.8-4.8); LYMPHOCYTES % (AUTO) 14.3 % (20.0-44.0); MEAN CORPUSCULAR HEMOGLOBIN 32 PG (26.0-33.0); MEAN CORPUSCULAR HGB CONC 34 g/dl (31.0-36.0); MEAN CORPUSCULAR VOLUME 94 fL (82-100); MONOCYTES # (AUTO) 0.5 /CMM (0.1-1.30); MONOCYTES % (AUTO) 6.5 % (2.0-12.0); NEUTROPHILS # (AUTO) 5.8 /CMM (1.8-8.9); PLATELET COUNT (AUTO) 272 /CMM (150-450); RED BLOOD CELL COUNT(AUTO) 3.22 MIL/uL (4.0-5.2); WHITE BLOOD COUNT (AUTO) 8.2 K/uL (4.3-11.0)
--- NOTE | 2016-10-20 07:10 | NUR ---
RN INITIAL NOTES RECEIVED PT [facility]DED. [facility], TRACH IN PLACE. NO RESPIRATORY DISTRESS NOTED. NO SOB NOTED. NO SIGNS OF PAIN NOTED. HOB ELEVATED. IV LINE IN PLACE. RIGHT FEMORAL HD CATH IN PLACE. GT IN PLACE. TOLERATING GTF WELL. NO RESIDUAL NOTED. PT CLEAN AND DRY. BLE ELEVATED. REPOSITIONED. WILL MONITOR.
[2016-10-20 07:15] LABS: CALCIUM, SERUM 9.3 mg/dL (8.5-10.1); CREATININE 5.5 mg/dL (0.6-1.3); MAGNESIUM 2.4 mg/dL (1.8-2.4); PHOSPHORUS 2.8 mg/dL (2.5-4.9)
[2016-10-20 08:00] VITALS: BP 154/55
[2016-10-20] MEDS: LEVETIRACETAM SOL (5 ML) 100 MG/ML UDC GT SCH (08:17)
[2016-10-20] MEDS: ASCORBIC ACID 500 MG TABLET GT SCH (08:17)
[2016-10-20] MEDS: VIT B CMPLX 3/FA/VIT C/BIOTIN 1 TAB TABLET GT SCH (08:17)
[2016-10-20] MEDS: SCOPOLAMINE HBR 1 EA PATCH.TD72 TD SCH (08:17)
[2016-10-20] MEDS: PANTOPRAZOLE 40 MG VIAL IV SCH ×2 (08:17→17:01)
[2016-10-20] MEDS: ACETAMINOPHEN 650 MG/20.3 ML UDC GT SCH (08:17)
[2016-10-20] MEDS: CHOLESTYRAMINE/ASPARTAME 4 G/PKT PACKET GT SCH (08:17)
[2016-10-20] MEDS: FERROUS SULFATE UDC 300 MG/5 ML UDC GT SCH (08:17)
[2016-10-20] MEDS: LOSARTAN POTASSIUM 50 MG TABLET GT SCH (08:18)
[2016-10-20] MEDS: ZINC SULFATE 220 MG CAPSULE GT SCH (08:18)
[2016-10-20] MEDS: AMLODIPINE BESYLATE 5 MG TABLET GT SCH (08:18)
[2016-10-20] MEDS: FAMOTIDINE (20 MG) 20 MG TABLET GT SCH (08:18)
[2016-10-20] MEDS: Z GUARD REMEDY 2 OZ OINT TP SCH (08:19)
[2016-10-20] MEDS: DAKINS QUARTER STRENGTH (0.125%) 480 ML BOTTLE TOP SCH (08:19)
[2016-10-20] MEDS: INSULIN DETEMIR 100 UNIT/ML CARTRIDGE SQ SCH (08:27)
[2016-10-20 12:00] VITALS: BP 110/54
--- NOTE | 2016-10-20 12:10 | NUR ---
RN NOTES SEEN AND EXAMINED BY DR. ZBIGNIEW RIVERA. AWARE OF CURRENT LAB RESULTS. MD ORDERED DC SNF. NOTED AND CARRIED OUT. WILL NOTIFY DG FINISH INSPECTOR.
[2016-10-20 16:00] VITALS: BP 112/61
--- NOTE | 2016-10-20 16:55 | NUR ---
RN NOTES CALLED [facility], SPOKE WITH JOSE F. GAVE ALL PERTINENT INFORMATION NOTED. PT WILL PICKED UP AT 1630.
[2016-10-20 17:02] VITALS: BP 112/61
--- NOTE | 2016-10-20 19:22 | NUR ---
RN NOTES PT LEFT VIA AMBULANCE. NO RESPIRATORY DISTRESS NOTED. NO SOB NOTED. NO SIGNS OF PAIN NOTED. VITAL SIGNS WNL. LEFT IN STABLE CONDITION
== END 2016-10-20 19:27 | DRG 377 ==
LOC: ER 13:09 → TELE1 16:49
PROVIDERS: ADMIT Internal Medicine; ATTEND Internal Medicine
PROC: 5A1955Z Respiratory Ventilation, Greater than 96 Consecutive Hours (ICD-10-PCS; principal; 2016-10-13)
PROC: 5A1D60Z (ICD-10-PCS; 2016-10-13)
PROC: 0W3P8ZZ Control Bleeding in Gastrointestinal Tract, Via Natural or Artificial Opening Endoscopic (ICD-10-PCS; 2016-10-15)
DX: K31.811 Angiodysplasia of stomach and duodenum with bleeding (principal); N18.6 End stage renal disease; G93.40 Encephalopathy, unspecified; L89.154 Pressure ulcer of sacral region, stage 4; Z99.11 Dependence on respirator [ventilator] status; J96.11 Chronic respiratory failure with hypoxia; I12.0 Hypertensive chronic kidney disease with stage 5 chronic kidney disease or end stage renal disease; G93.1 Anoxic brain damage, not elsewhere classified; J98.11 Atelectasis; D62 Acute posthemorrhagic anemia; Z93.0 Tracheostomy status; Z79.899 Other long term (current) drug therapy; Z93.1 Gastrostomy status; R13.10 Dysphagia, unspecified; Z99.2 Dependence on renal dialysis; E78.5 Hyperlipidemia, unspecified; K21.9 Gastro-esophageal reflux disease without esophagitis; G40.909 Epilepsy, unspecified, not intractable, without status epilepticus; L30.4 Erythema intertrigo; E11.9 Type 2 diabetes mellitus without complications; L89.620 Pressure ulcer of left heel, unstageable; L98.8 Other specified disorders of the skin and subcutaneous tissue; D50.0 Iron deficiency anemia secondary to blood loss (chronic); E11.22 Type 2 diabetes mellitus with diabetic chronic kidney disease; N20.0 Calculus of kidney
CPT/HCPCS: 31720; 36415; 71010-TC; 80048-TC; 82272-TC; 82962-TC; 83735-TC; 84100-TC; 85025-TC; 85027-TC; 85730-TC; 87081-TC; 90935-TC; 94002-TC; 94003-TC; 94760-TC; 94761-TC; A4606; A6253; A6402; A6403; C9113; J1815; J1953; J2001; J2405; J2704; J2997; J7030; Q0162; Z7610

== ENCOUNTER 2016-10-24 16:32 | Inpatient (IN) | payer MEDICARE, MEDICAID ==
[~2016-10-24] VITALS: Ht 160 cm; Wt 60.3 kg
[~2016-10-24 16:32] MED LIST changes: -AMIN30LI4 GT
--- NOTE | 2016-10-24 16:40 | NUR ---
BIB EMS REQUESTING CVC REPLACEMENT DUE TO CONTRACTED LEG. RESP IS EVEN AND UNLABORED WITH NAD NOTED. SKIN IS WARM AND DRY. G-TUBE IS INTACT. PATIENT FINISHED HIS DIALYSIS TODAY. PLACED ON MONITOR. VENT SETTINGS: AC=12, PEEP=5 QG=508; FIO2=35%. DR PIZANO AT FOR EVAL.
[2016-10-24 16:55] VITALS: BP 113/59
--- NOTE | 2016-10-24 16:59 | NUR ---
PT REC'D ON PORTEX TRACH SZ 7. PT PLACED ON [facility] VENT SETTINGS CHARTED, NOTED BY EMT RT. MATERIAL SCHEDULER CUFF PRESSURE NOTED. SX CLEAR THICK SECRETIONS. VENT PLUGGED INTO RED OUTLET. ALARMS ARE SET AND AUDIBLE. AMBU BAG BEDSIDE, WILL CONTINUE TO MONITOR Addendum: 10/24/16 at 1705 by VITOR TILLMAN RT Amended: Links added.
[2016-10-24 17:13] LABS: BASOPHILS % (AUTO) 0.3 % (0.0-2.0); EOSINOPHILS # (AUTO) 0.4 /CMM (0.0-0.7); EOSINOPHILS % (AUTO) 3.6 % (0.0-6.0); HEMATOCRIT 28 % (33-45); HEMOGLOBIN 9.7 g/dL (11.5-14.8); MEAN CORPUSCULAR HEMOGLOBIN 33 PG (26.0-33.0); MEAN CORPUSCULAR HGB CONC 34 g/dl (31.0-36.0); MEAN CORPUSCULAR VOLUME 95 fL (82-100); MONOCYTES # (AUTO) 0.5 /CMM (0.1-1.30); MONOCYTES % (AUTO) 4.6 % (2.0-12.0); NEUTROPHILS # (AUTO) 9.8 /CMM (1.8-8.9); NEUTROPHILS % (AUTO) 82.5 % (43.0-81.0); PLATELET COUNT (AUTO) 291 /CMM (150-450); RDW COEFFICIENT OF VARIATION 14.8 (11.5-15.0); RED BLOOD CELL COUNT(AUTO) 2.98 MIL/uL (4.0-5.2); WHITE BLOOD COUNT (AUTO) 11.6 K/uL (4.3-11.0)
[2016-10-24 17:16] LABS: CALCIUM, SERUM 9.2 mg/dL (8.5-10.1); CREATININE 3.2 mg/dL (0.6-1.3); POTASSIUM 4.5 mmol/L (3.5-5.1)
[2016-10-24] MEDS ORDERED: AMIN30LI4 GT (17:16)
[2016-10-24 17:19] LABS: INR 1.08 (0.87-1.13); PROTHROMBIN TIME 11.2 SECS (9.5-12.7)
[2016-10-24 17:39] LABS: PARTIAL THROMBOPLASTIN TIME > 170 SEC (23-34)
--- NOTE | 2016-10-24 18:18 | NUR ---
CALLED , TRANSFERRED CALL TO
--- NOTE | 2016-10-24 18:21 | NUR ---
CALLED NURSING SUP. FOR RAJ BED
--- NOTE | 2016-10-24 18:48 | NUR ---
REPORT GIVEN TO LAWRENCE ALEXANDER FOR [facility] RAJ 111-2.
[2016-10-24 19:00] VITALS: BP 120/75
--- NOTE | 2016-10-24 19:00 | NUR ---
RAJ/RN- PT BI FROM ER W/ DX OF MALFUNCTIONING DIALYSIS CATHETER. PER REPORT, PT WAS ABLE TO GET HD TODAY. PT IS AWAKE, OPENS EYES, MOVES TO PAINFUL STIMULI. PUT ON MONITOR W/ SR 80S. PT HAS TRACH, PORTEX 7, WITH MECH VENT AC 12, TV 550, FIO2 35% P 5. TOLERATING SETTINGS WELL. HL IN R HAND 20 G PATENT AND INTACT. R FEM PERMACATH IN PLACE. DRESSING INTACT. GT IN PLACE, CLAMPED AT THIS TIME. REPOSITION FOR COMFORT. BED LOW AND IN LOCKED POSITION. WILL MONITOR PT ACCORDINGLY.
[2016-10-24 20:00] VITALS: BP 123/62
[2016-10-24] MEDS ORDERED: RENAL NOVASOURCE 1,000 ML BOTTLE GT PRN (20:00)
[2016-10-24] MEDS ORDERED: INSULIN REGULAR, HUMAN 100 UNIT/ML 3 ML VIAL SQ PRN (20:30)
[2016-10-24] MEDS ORDERED: DEXTROSE 50%-WATER 50 ML DISP.SYRIN IV PRN (20:30)
[2016-10-24] MEDS: FAMOTIDINE (20 MG) 20 MG TABLET GT SCH (20:59)
[2016-10-24] MEDS: CHOLESTYRAMINE/ASPARTAME 4 G/PKT PACKET PO SCH (21:01)
[2016-10-24] MEDS: PANTOPRAZOLE 40 MG/PACK PACK GT SCH (21:02)
[2016-10-24] MEDS: AMLODIPINE BESYLATE 5 MG TABLET GT SCH (21:02)
[2016-10-24] MEDS: LEVETIRACETAM SOL (5 ML) 100 MG/ML UDC GT SCH (21:02)
[2016-10-24] MEDS: LOSARTAN POTASSIUM 50 MG TABLET PO SCH (21:04)
[2016-10-24] MEDS: ACETYLCYSTEINE 20% SOLN 800 MG/4 ML VIAL NEB SCH (23:29)
[2016-10-25] VITALS (7 sets, daily range): BP systolic 101–124; BP diastolic 46–62
[2016-10-25] MEDS ORDERED: BLOOD SUGAR DIAGNOSTIC 1 EACH STRIP IN SCH
[2016-10-25] MEDS: hydrALAZINE HCL 25 MG TABLET GT SCH ×4 (00:24→17:06)
[2016-10-25] MEDS: BLOOD SUGAR DIAGNOSTIC 1 EACH STRIP IN SCH ×4 (00:25→17:09)
[2016-10-25] MEDS: METOCLOPRAMIDE HCL 10 MG TABLET GT SCH ×4 (00:25→17:06)
[2016-10-25] MEDS: ALBUTEROL FS 2.5 MG/0.5 ML VIAL.NEB IH SCH ×4 (01:54→20:47)
[2016-10-25] MEDS: IPRATROPIUM NEB FS 0.5 MG/2.5 ML AMPUL.NEB IH SCH ×4 (01:54→20:47)
[2016-10-25] MEDS: INSULIN REGULAR, HUMAN 100 UNIT/ML 3 ML VIAL SQ PRN ×3 (05:42→17:11)
--- NOTE | 2016-10-25 06:27 | NUR ---
RAJ/RN. ALL NEEDS ATTENDED AND MET. NO ACUTE DISTRESS NOTED. AM CARE PROVIDED. WILL ENDORSE TO AM SHIFT FOR CONTINUATION OF CARE.
[2016-10-25 07:06] LABS: BASOPHILS % (AUTO) 0.4 % (0.0-2.0); EOSINOPHILS # (AUTO) 0.5 /CMM (0.0-0.7); EOSINOPHILS % (AUTO) 6.4 % (0.0-6.0); HEMATOCRIT 28 % (33-45); HEMOGLOBIN 9.7 g/dL (11.5-14.8); LYMPHOCYTES # (AUTO) 1.6 /CMM (0.8-4.8); LYMPHOCYTES % (AUTO) 18.6 % (20.0-44.0); MEAN CORPUSCULAR HEMOGLOBIN 32 PG (26.0-33.0); MEAN CORPUSCULAR HGB CONC 34 g/dl (31.0-36.0); MEAN CORPUSCULAR VOLUME 95 fL (82-100); MONOCYTES # (AUTO) 0.6 /CMM (0.1-1.30); MONOCYTES % (AUTO) 6.7 % (2.0-12.0); NEUTROPHILS # (AUTO) 5.8 /CMM (1.8-8.9); NEUTROPHILS % (AUTO) 67.9 % (43.0-81.0); PLATELET COUNT (AUTO) 289 /CMM (150-450); RDW COEFFICIENT OF VARIATION 15.7 (11.5-15.0); RED BLOOD CELL COUNT(AUTO) 2.99 MIL/uL (4.0-5.2); WHITE BLOOD COUNT (AUTO) 8.6 K/uL (4.3-11.0)
--- NOTE | 2016-10-25 07:14 | NUR ---
RN NOTES RECEIVED PATIENT OBTUNDED , RESPONSIVE TO PAIN STIMULI , NON VERBAL , NOT IN ACUTE DISTRESS , RESPIRATIONS EVEN AND UNLABORED WITH SPO2 OF 10% VIA MECHANICAL VENTILATOR SETTINGS ORDERED , TRACH OF PROTEX # [address] , SR 75 ON TELE MONITOR , GT PATENT AND INTACT WITH GTF OF NOVASOURCE @ 50ML/HR TOLERATING WELL WITH NO RESIDUALS NOTED , IV OF R WRIST # 20 PATENT AND INTACT SL . R FEMORAL PERMCATH C/D/I , ALL NEEDS ATTENDED , BED ON LOW AND LOCKED POSITION , SIDE RAILS X2 ,HOB @ 45 , WILL CONTINUE TO MONITOR
[2016-10-25 07:22] LABS: CALCIUM, SERUM 9.3 mg/dL (8.5-10.1); CREATININE 4.4 mg/dL (0.6-1.3); MAGNESIUM 2.3 mg/dL (1.8-2.4); PHOSPHORUS 1.5 mg/dL (2.5-4.9); POTASSIUM 4.9 mmol/L (3.5-5.1)
[2016-10-25] MEDS: ACETYLCYSTEINE 20% SOLN 800 MG/4 ML VIAL NEB SCH ×3 (07:44→23:24)
[2016-10-25] MEDS: ACETAMINOPHEN 650 MG/20.3 ML UDC GT SCH (08:00)
[2016-10-25] MEDS: ASCORBIC ACID SYRUP 500 MG/5 ML UDC GT SCH (08:00)
[2016-10-25] MEDS: FERROUS SULFATE UDC 300 MG/5 ML UDC GT SCH (08:00)
[2016-10-25] MEDS: CHOLESTYRAMINE/ASPARTAME 4 G/PKT PACKET PO SCH ×2 (08:01→21:00)
[2016-10-25] MEDS: PANTOPRAZOLE 40 MG/PACK PACK GT SCH ×2 (08:01→21:01)
[2016-10-25] MEDS: PROSOURCE / PROSTAT (PYXIS) 30 ML UDC GT SCH (08:01)
[2016-10-25] MEDS: LEVETIRACETAM SOL (5 ML) 100 MG/ML UDC GT SCH ×2 (08:01→21:00)
[2016-10-25] MEDS: ZINC SULFATE 220 MG CAPSULE GT SCH (08:01)
[2016-10-25] MEDS: VIT B CMPLX 3/FA/VIT C/BIOTIN 1 TAB TABLET PO SCH (08:01)
[2016-10-25] MEDS: SCOPOLAMINE HBR 1 EA PATCH.TD72 TD SCH (08:02)
[2016-10-25] MEDS: LOSARTAN POTASSIUM 50 MG TABLET PO SCH ×2 (08:02→21:02)
[2016-10-25] MEDS: AMLODIPINE BESYLATE 5 MG TABLET GT SCH ×2 (08:02→21:01)
[2016-10-25] MEDS: INSULIN DETEMIR 100 UNIT/ML CARTRIDGE SQ SCH (08:18)
--- NOTE | 2016-10-25 11:06 | NUR ---
RN NOTES DR LLOYD AT BEDSIDE , DISCUSSED LABS , HD DONE YESTERDAY , V/S STABLE AFEBRILE , PENDING ID CONSULT FOR POSSIBLE SCABIES , TOLERATING GT FEEDING , NOT IN ACUTE DISTRESS , MD AWARE .
--- NOTE | 2016-10-25 12:45 | NUR ---
RN NOTES SPOKE WITH DR LLOYD , FOLLOWED UP PULMONARY CONSULT FOR TRACH / VENT AND ID CONSULT FOR POSSIBLE SCABIES , PATIENT SEEN AND EVALUATED BY CLEMENTINE RAMIREZ PHOTOENGRAVING ETCHER APPRENTICE FOR SACRAL ULCER , AWAITING FOR WOUND TX ORDER
[2016-10-25] MEDS: HYDROGEL DRESSING 90 GM TUBE TP SCH (13:21)
[2016-10-25] MEDS ORDERED: NEUTRA PHOS 1 POWD.PACKET NG ONE (14:30)
[2016-10-25] MEDS: RENAL NOVASOURCE 1,000 ML BOTTLE GT PRN (17:07)
[2016-10-25] MEDS: Z GUARD REMEDY 2 OZ OINT TP PRN (17:07)
[2016-10-26] VITALS (8 sets, daily range): BP systolic 100–111; BP diastolic 45–69
[2016-10-26] MEDS: BLOOD SUGAR DIAGNOSTIC 1 EACH STRIP IN SCH ×4 (00:21→17:21)
[2016-10-26] MEDS: METOCLOPRAMIDE HCL 10 MG TABLET GT SCH ×4 (00:32→17:10)
[2016-10-26] MEDS: hydrALAZINE HCL 25 MG TABLET GT SCH ×4 (00:35→17:10)
[2016-10-26] MEDS: INSULIN REGULAR, HUMAN 100 UNIT/ML 3 ML VIAL SQ PRN ×3 (00:37→11:51)
[2016-10-26] MEDS: IPRATROPIUM NEB FS 0.5 MG/2.5 ML AMPUL.NEB IH SCH ×4 (01:40→22:32)
[2016-10-26] MEDS: ALBUTEROL FS 2.5 MG/0.5 ML VIAL.NEB IH SCH ×4 (01:40→22:32)
--- NOTE | 2016-10-26 06:27 | NUR ---
TD RN: PT REMAINED OBTUNDED, RESPONSIVE TO TOUCH [facility]ULI. [facility] TOLERATING VENT SETTINGS WT NO ACUTE DISTRESS. NO EVIDENCE OF DISCOMFORT. TOLERATING GTF WT NO RESIDUAL. HAD 1 LARGE SOFT DARK WHITLOCK BOWEL MOVEMENT. GOOD SKIN CARE RENDERED. NOTED WT RECURRENT ORAL THRUSH. GOOD ORAL CARE RENDERED. WILL ENDORSE TO DAY SHIFT TO FF-UP WT MD FOR FURTHER ORDERS. VS WITHIN HER BASELINE. KEPT CLEAN AND DRY. HOB AT 35% AT ALL TIMES.
[2016-10-26] MEDS: ACETYLCYSTEINE 20% SOLN 800 MG/4 ML VIAL NEB SCH ×2 (07:20→13:38)
[2016-10-26 07:26] LABS: BASOPHILS # (AUTO) 0.1 /CMM (0.0-0.2); BASOPHILS % (AUTO) 0.5 % (0.0-2.0); EOSINOPHILS # (AUTO) 0.5 /CMM (0.0-0.7); EOSINOPHILS % (AUTO) 4.6 % (0.0-6.0); HEMATOCRIT 27 % (33-45); HEMOGLOBIN 9.5 g/dL (11.5-14.8); LYMPHOCYTES # (AUTO) 1.6 /CMM (0.8-4.8); LYMPHOCYTES % (AUTO) 15.9 % (20.0-44.0); MEAN CORPUSCULAR HEMOGLOBIN 34 PG (26.0-33.0); MEAN CORPUSCULAR HGB CONC 35 g/dl (31.0-36.0); MEAN CORPUSCULAR VOLUME 95 fL (82-100); MONOCYTES # (AUTO) 0.5 /CMM (0.1-1.30); MONOCYTES % (AUTO) 5.2 % (2.0-12.0); NEUTROPHILS # (AUTO) 7.5 /CMM (1.8-8.9); NEUTROPHILS % (AUTO) 73.8 % (43.0-81.0); PLATELET COUNT (AUTO) 289 /CMM (150-450); RED BLOOD CELL COUNT(AUTO) 2.84 MIL/uL (4.0-5.2); WHITE BLOOD COUNT (AUTO) 10.2 K/uL (4.3-11.0)
[2016-10-26 07:45] LABS: CALCIUM, SERUM 9.4 mg/dL (8.5-10.1); CREATININE 6.1 mg/dL (0.6-1.3); MAGNESIUM 2.3 mg/dL (1.8-2.4); PHOSPHORUS 1.9 mg/dL (2.5-4.9); POTASSIUM 5.3 mmol/L (3.5-5.1)
[2016-10-26] MEDS: VIT B CMPLX 3/FA/VIT C/BIOTIN 1 TAB TABLET PO SCH (08:18)
[2016-10-26] MEDS: ZINC SULFATE 220 MG CAPSULE GT SCH (08:18)
[2016-10-26] MEDS: CHOLESTYRAMINE/ASPARTAME 4 G/PKT PACKET PO SCH ×2 (08:19→20:54)
[2016-10-26] MEDS: ASCORBIC ACID SYRUP 500 MG/5 ML UDC GT SCH (08:19)
[2016-10-26] MEDS: LOSARTAN POTASSIUM 50 MG TABLET PO SCH ×2 (08:19→21:15)
[2016-10-26] MEDS: FERROUS SULFATE UDC 300 MG/5 ML UDC GT SCH (08:19)
[2016-10-26] MEDS: ACETAMINOPHEN 650 MG/20.3 ML UDC GT SCH (08:19)
[2016-10-26] MEDS: PANTOPRAZOLE 40 MG/PACK PACK GT SCH ×2 (08:19→20:54)
[2016-10-26] MEDS: PROSOURCE / PROSTAT (PYXIS) 30 ML UDC GT SCH (08:19)
[2016-10-26] MEDS: HYDROGEL DRESSING 90 GM TUBE TP SCH (08:20)
[2016-10-26] MEDS: AMLODIPINE BESYLATE 5 MG TABLET GT SCH ×2 (08:20→20:54)
[2016-10-26] MEDS: INSULIN DETEMIR 100 UNIT/ML CARTRIDGE SQ SCH (08:26)
[2016-10-26] MEDS: LEVETIRACETAM SOL (5 ML) 100 MG/ML UDC GT SCH ×2 (08:30→20:54)
[2016-10-26] MEDS ORDERED: Sodium Phosphate 15 MMOL in IV D5W 250 ML IV ONE (12:00)
[2016-10-26] MEDS ORDERED: IV SET PRIMARY PUMP SET 1 EA INFUS.SET MC ONE (12:52)
[2016-10-26] MEDS ORDERED: LIDOCAINE 2%-EPI 1:200,000 20 ML VIAL IJ ONE (14:00)
--- NOTE | 2016-10-26 14:59 | NUR ---
DR. ALMAZAN ON THE UNIT, SHE ORDERS TO HOLD OFF ON THE SKIN SCRAPING TEST BECAUSE [facility] ALREADY HAS TAKEN IT AND THE [facility] PLAN IS TO DC HER BACK TO [facility]. LONG CASE MANAGMENT CONFIRMS THAT SHE WILL GO BACK TO [facility] WE DON'T NEED ANOTHER SKIN SCRAPING TEST. IF THE PATIENT WILL DC TO A DIFFERENT SNF THEN A SKIN SCRAPING TEST WILL BE ORDERED IN THAT CASE.
[2016-10-26] MEDS: RENAL NOVASOURCE 1,000 ML BOTTLE GT PRN (17:30)
--- NOTE | 2016-10-26 19:50 | NUR ---
RN NOTES RECEIVED PT EYES IS OPEN OBTUNDED ON STRICTLY OBSERVATION FOR ISOLATION DUE TO POSS. SCABIES. PT WITH TRACH CONNECTED TO VENT SETTING OF AC 12 TV 550 FIO2 35% PEEP 5 SATING 98% TELE MONITOR REVEALS SR HR 81. WITH GTF NOVASOURCE @ 50 CC/HR PATENCY CHECKED WITH RESIDUAL OF 150 CC FEEDING HELD FOR NOW AND WILL RECHECKED AFTER 2 HOURS. IV SITE ON RIGHT WRIST G 20 SL AND RIGHT FEMORAL HD CATH INTACT AND PATENT WITH CLEANED DRESSING. OFFLOADED EXT WITH PILLOWS. KEPT PT CLEAN AND COMFORTABLE IN BED. WILL CONTINUE TO MONITOR.
[2016-10-26] MEDS: FAMOTIDINE (20 MG) 20 MG TABLET GT SCH (20:55)
[2016-10-27] VITALS (8 sets, daily range): BP systolic 96–132; BP diastolic 40–62
[2016-10-27] MEDS: BLOOD SUGAR DIAGNOSTIC 1 EACH STRIP IN SCH ×4 (00:21→17:20)
[2016-10-27] MEDS: METOCLOPRAMIDE HCL 10 MG TABLET GT SCH ×4 (00:22→17:20)
[2016-10-27] MEDS: ACETYLCYSTEINE 20% SOLN 800 MG/4 ML VIAL NEB SCH ×3 (00:31→15:07)
[2016-10-27] MEDS: ALBUTEROL FS 2.5 MG/0.5 ML VIAL.NEB IH SCH ×5 (02:49→19:43)
[2016-10-27] MEDS: IPRATROPIUM NEB FS 0.5 MG/2.5 ML AMPUL.NEB IH SCH ×5 (02:49→19:43)
[2016-10-27] MEDS: hydrALAZINE HCL 25 MG TABLET GT SCH ×4 (05:48→17:20)
[2016-10-27] MEDS: INSULIN REGULAR, HUMAN 100 UNIT/ML 3 ML VIAL SQ PRN ×2 (05:49→12:38)
[2016-10-27 06:45] LABS: BASOPHILS % (AUTO) 0.1 % (0.0-2.0); EOSINOPHILS # (AUTO) 0.6 /CMM (0.0-0.7); EOSINOPHILS % (AUTO) 5.5 % (0.0-6.0); HEMATOCRIT 24 % (33-45); HEMOGLOBIN 8.1 g/dL (11.5-14.8); LYMPHOCYTES # (AUTO) 1.6 /CMM (0.8-4.8); MEAN CORPUSCULAR HEMOGLOBIN 33 PG (26.0-33.0); MEAN CORPUSCULAR HGB CONC 34 g/dl (31.0-36.0); MEAN CORPUSCULAR VOLUME 95 fL (82-100); MONOCYTES # (AUTO) 0.5 /CMM (0.1-1.30); MONOCYTES % (AUTO) 4.2 % (2.0-12.0); NEUTROPHILS # (AUTO) 8.8 /CMM (1.8-8.9); NEUTROPHILS % (AUTO) 76.2 % (43.0-81.0); PLATELET COUNT (AUTO) 271 /CMM (150-450); RDW COEFFICIENT OF VARIATION 15.8 (11.5-15.0); WHITE BLOOD COUNT (AUTO) 11.5 K/uL (4.3-11.0)
--- NOTE | 2016-10-27 06:56 | NUR ---
RN NOTES PT ASLEEP WELL ON BED. NO SIGNIFICANT SHERRY SHOWS. ISOLATION PRECAUTION MET. TOLERATED TRACH AND VENT SETTING .GTF RUNNING @ 50 CC/HR INTACT AND PATENT. PATENCY CHECKED WITH ZERO RESIDUAL. HD CATH KEPT CLEAN AND DRY. WOUND DRESSING CHANGE DONE ORDERED. WILL ENDORSED CONTINUITY OF CARE TO AM NURSE AND TO CALL [facility] ABOUT THE RESULT OF SKIN SCRAPING PER DR. LLOYD.
[2016-10-27 07:10] LABS: CALCIUM, SERUM 8.4 mg/dL (8.5-10.1); CREATININE 4.8 mg/dL (0.6-1.3); PHOSPHORUS 3.4 mg/dL (2.5-4.9); POTASSIUM 4.4 mmol/L (3.5-5.1)
--- NOTE | 2016-10-27 07:30 | NUR ---
RN NOTES RECEIVED PT LAYING IN BED, PT IS OBTUNDED, TRACHED, ON MECH VENTS SETTINGS PRESCRIBED. SUCTIONED FOR AIRWAY CLEARANCE. SR ON TELE MONITOR HR 80, NO ACUTE DISTRESS NOTED. ONGOING GTF NOVASOURCE@50ML/HR NO RESIDUAL NOTED. IV SALINE LOCK ON R WRIST 20G, FLUSED WITH NS, PATENT. PT INCONTINENT B&B. REPOSITIONED FOR COMFORT, SAFETY MAINTAINED. IOLATION PRECAUTION OBSERVED, FOR POSSIBLE SCABIES. CALL LIGHT WITHIN REACH, WILL CONT TO MONITOR.
--- NOTE | 2016-10-27 08:07 | NUR ---
RN NOTES CALLED [facility] TO FOLLOW UP SKIN SCRAPING RESULT, NO ANSWER. WILL TRY AGAIN LATER
[2016-10-27] MEDS: INSULIN DETEMIR 100 UNIT/ML CARTRIDGE SQ SCH (08:26)
[2016-10-27] MEDS: CHOLESTYRAMINE/ASPARTAME 4 G/PKT PACKET PO SCH ×2 (08:27→20:33)
[2016-10-27] MEDS: NYSTATIN (PYXIS) 500,000 UNIT/5 ML ORAL.SUSP PO SCH ×3 (08:27→17:19)
[2016-10-27] MEDS: LEVETIRACETAM SOL (5 ML) 100 MG/ML UDC GT SCH ×2 (08:27→20:32)
[2016-10-27] MEDS: PANTOPRAZOLE 40 MG/PACK PACK GT SCH ×2 (08:28→20:33)
[2016-10-27] MEDS: FERROUS SULFATE UDC 300 MG/5 ML UDC GT SCH (08:28)
[2016-10-27] MEDS: VIT B CMPLX 3/FA/VIT C/BIOTIN 1 TAB TABLET PO SCH (08:28)
[2016-10-27] MEDS: ZINC SULFATE 220 MG CAPSULE GT SCH (08:28)
[2016-10-27] MEDS: ASCORBIC ACID SYRUP 500 MG/5 ML UDC GT SCH (08:28)
[2016-10-27] MEDS: PROSOURCE / PROSTAT (PYXIS) 30 ML UDC GT SCH (08:28)
[2016-10-27] MEDS: ACETAMINOPHEN 650 MG/20.3 ML UDC GT SCH (08:28)
[2016-10-27] MEDS: HYDROGEL DRESSING 90 GM TUBE TP SCH (08:29)
[2016-10-27] MEDS: Z GUARD REMEDY 2 OZ OINT TP PRN (08:29)
[2016-10-27] MEDS: LOSARTAN POTASSIUM 50 MG TABLET PO SCH ×2 (08:30→20:33)
[2016-10-27] MEDS: AMLODIPINE BESYLATE 5 MG TABLET GT SCH ×2 (08:30→20:33)
[2016-10-27] MEDS ORDERED: SILVER NITRATE APPLICATOR 1 EA BOX TP ONE (09:00)
--- NOTE | 2016-10-27 09:26 | NUR ---
RN NOTES CALLED [facility] TO FOLLOW UP SKIN SCRAPING RESULT, SPOKE WITH JANET PÉREZ PT WAS SEEN BY LAPPING MACHINE SET UP OPERATOR LAST THURSDAY AND ORDERED ELIMITE APPLICATION. SKIN SCRAPE WAS NEVER DONE IN THE SNF.
--- NOTE | 2016-10-27 11:15 | NUR ---
rn notes spoke with dr cameron, tej calero skin scraping not done at the snf, hydro operator ordered Elimite application instead. no new order given. charge nurse sergey notified.
--- NOTE | 2016-10-27 12:36 | NUR ---
WOUND CARE CONSULT WOUND CARE RECEIVED WOUND CARE CONSULT, WOUND CARE WILL DEFER TO THE WOUND SURGICAL TEAM AT THIS TIME. ALL SKIN MANAGEMENT AND PREVENTION MEASURES NOTED TO BE IN PLACE PER CURRENT PLAN OF CARE. TREATMENT ORDERS HAVE BEEN DONE BY SURGICAL TEAM.
--- NOTE | 2016-10-27 12:44 | NUR ---
rn notes spoke with dr martinez from infection control, informed md skin scraping not done at the snf, sweatband drummer ordered Elimite application instead. per Dr Martinez, to do skin scarping. charge nurse sergey notified. will call infection control
[2016-10-27] MEDS ORDERED: LIDOCAINE 2%-EPI 1:100,000 30 ML VIAL TP ONE (14:00)
--- NOTE | 2016-10-27 15:10 | NUR ---
RN NOTES SKIN SCRAPING DONE AT BEDSIDE BY INFECTION CONTROL NURSE MARY, SPECIMEN SENT TO LAB.
--- NOTE | 2016-10-27 17:33 | NUR ---
RN NOTES DR ALMAZAN AT BEDSIDE, UPDATES GIVEN, MD AWARE REGARDING SKIN SCRAPE DONE TODAY, PER MD NEEDS REPEAT SKIN SCRAPE HANNA.
--- NOTE | 2016-10-27 19:20 | NUR ---
RN NOTES PT IS AWAKE, OBTUNDED ON STRICTLY OBSERVATION FOR ISOLATION DUE TO POSS. SCABIES. WITH TRACH CONNECTED TO VENT WITH SETTING AC 12 TV 550 FIO2 35% PEEP 5 SATING 99%. BILATERAL BREATH SOUND DIMINISHED. TELE MONITOR REVEALS SR WITH OCCASIONAL V-PACING HR 85. WITH GTF NOVASOURCE @ 50 CC/HR PATENCY CHECKED WITH ZERO RESIDUAL . IV SITE ON RIGHT WRIST G 20 SL AND RIGHT FEMORAL HD CATH INTACT AND PATENT WITH CLEANED DRESSING. OFFLOADED EXT WITH PILLOWS. KEPT PT CLEAN AND COMFORTABLE IN BED. WILL CONTINUE TO MONITOR.
[2016-10-28] VITALS (7 sets, daily range): BP systolic 111–139; BP diastolic 52–63
[2016-10-28] MEDS: RENAL NOVASOURCE 1,000 ML BOTTLE GT PRN (00:18)
[2016-10-28] MEDS: METOCLOPRAMIDE HCL 10 MG TABLET GT SCH ×4 (00:19→17:51)
[2016-10-28] MEDS: hydrALAZINE HCL 25 MG TABLET GT SCH ×4 (00:21→17:55)
[2016-10-28] MEDS: INSULIN REGULAR, HUMAN 100 UNIT/ML 3 ML VIAL SQ PRN ×3 (00:33→12:37)
[2016-10-28] MEDS: BLOOD SUGAR DIAGNOSTIC 1 EACH STRIP IN SCH ×4 (00:34→17:51)
[2016-10-28] MEDS: IPRATROPIUM NEB FS 0.5 MG/2.5 ML AMPUL.NEB IH SCH ×4 (01:29→19:41)
[2016-10-28] MEDS: ALBUTEROL FS 2.5 MG/0.5 ML VIAL.NEB IH SCH ×4 (01:29→19:41)
[2016-10-28] MEDS: ACETYLCYSTEINE 20% SOLN 800 MG/4 ML VIAL NEB SCH ×3 (01:29→13:52)
--- NOTE | 2016-10-28 06:39 | NUR ---
RN NOTES PT ASLEEP WELL ON BED. NO SIGNIFICANT SHERRY SHOWS. ISOLATION PRECAUTION MET. TOLERATED TRACH AND VENT SETTING .GTF RUNNING @ 50 CC/HR INTACT AND PATENT. PATENCY CHECKED WITH ZERO RESIDUAL. HD CATH KEPT CLEAN AND DRY. WOUND DRESSING CHANGE DONE ORDERED. WILL ENDORSED CONTINUITY OF CARE TO AM NURSE TO F/U INFECTION CONTROL STAFF ABOUT TO SCRAPE WHAT MD ORDERED.
[2016-10-28] MEDS: LEVETIRACETAM SOL (5 ML) 100 MG/ML UDC GT SCH ×2 (08:54→20:32)
[2016-10-28] MEDS: ZINC SULFATE 220 MG CAPSULE GT SCH (08:54)
[2016-10-28] MEDS: CHOLESTYRAMINE/ASPARTAME 4 G/PKT PACKET PO SCH ×2 (08:54→20:32)
[2016-10-28] MEDS: ACETAMINOPHEN 650 MG/20.3 ML UDC GT SCH (08:54)
[2016-10-28] MEDS: NYSTATIN (PYXIS) 500,000 UNIT/5 ML ORAL.SUSP PO SCH ×3 (08:54→17:51)
[2016-10-28] MEDS: ASCORBIC ACID SYRUP 500 MG/5 ML UDC GT SCH (08:54)
[2016-10-28] MEDS: FERROUS SULFATE UDC 300 MG/5 ML UDC GT SCH (08:54)
[2016-10-28] MEDS: PROSOURCE / PROSTAT (PYXIS) 30 ML UDC GT SCH (08:54)
[2016-10-28] MEDS: PANTOPRAZOLE 40 MG/PACK PACK GT SCH ×2 (08:54→20:32)
[2016-10-28] MEDS: VIT B CMPLX 3/FA/VIT C/BIOTIN 1 TAB TABLET PO SCH (08:55)
[2016-10-28] MEDS: HYDROGEL DRESSING 90 GM TUBE TP SCH (08:55)
[2016-10-28] MEDS: SCOPOLAMINE HBR 1 EA PATCH.TD72 TD SCH (08:55)
[2016-10-28] MEDS: AMLODIPINE BESYLATE 5 MG TABLET GT SCH ×2 (08:56→20:32)
[2016-10-28] MEDS: LOSARTAN POTASSIUM 50 MG TABLET PO SCH ×2 (08:56→20:32)
[2016-10-28] MEDS: INSULIN DETEMIR 100 UNIT/ML CARTRIDGE SQ SCH (09:02)
--- NOTE | 2016-10-28 16:04 | NUR ---
paged infection control office to acquire skin scraping- left message, pending response.
--- NOTE | 2016-10-28 16:22 | NUR ---
INFCTN. CTRL.NURSE SAID WILL SCRAP TOMORROW AM
--- NOTE | 2016-10-28 16:30 | NUR ---
FEEDING HELD AT THIS TIME FOR RESIDUALS 120 ML.
--- NOTE | 2016-10-28 17:58 | NUR ---
RESUMED FEEDING, NO RESIDUALS,BS 61. WILL CONT' TO MONITOR BS AND RESIDUALS.
--- NOTE | 2016-10-28 19:30 | NUR ---
TAILOR APPRENTICE INITIAL NOTE RECEIVED REPORT FROM KAMILLA BRAVO. PT IN BED. OBTUNDED. CHRONIC VENT TRACH, TOLERATING VENT SETTINGS. LUNG SOUNDS RHONCHI. BOWEL SOUNDS PRESENT. GT PATENT AND INTACT, 40CC RESIDUAL. IV PATENT AND INTACT. PULSES PRESENT. BED IN LOW LOCKED POSITION. WILL CONTINUE TO MONITOR.
[2016-10-28] MEDS: FAMOTIDINE (20 MG) 20 MG TABLET GT SCH (20:32)
--- NOTE | 2016-10-28 21:30 | NUR ---
RN NOTE RECEIVED PT FROM RAJ LAWRENCE BACA FOR CONTINUITY OF CARE.
--- NOTE | 2016-10-28 21:30 | NUR ---
RN INITIAL NOTE RECEIVED PT IN NO ACUTE DISTRESS IN BED. PT IS ON OBSERVATION FOR POSSIBLE SCABBIES. PT IS ON MECHANICAL VENT VIA TRACH. TRACH SITE IS CLEAN DRY INTACT AND PATENT WITH O2 SAT @ 100%. PT TOLERATING VENT SETTINGS. PT HAS GTUBE THAT IS CLEAN DRY INTACT AND PATENT WITH NOVASOURCE @ 35 ML/HR. PT TOLERATING FEEDING WITH RESIDUAL OF 40ML. PT HAS R WRIST 20G THAT IS CLEAN DRY INTACT AND PATENT WITH NS @ TKO. PT HAS R FEMORAL HD CATH THAT IS CLEAN DRY AND INTACT. BED IN LOW LOCK POSITION WITH RIALS UP X 2. CALL LIGHT WITHIN REACH AND ALL SAFETY MEASURES ENSURED AND CARRIED OUT. WILL CONTINUE TO MONITOR PT.
[2016-10-29] VITALS: BP 128/62
[2016-10-29] MEDS: METOCLOPRAMIDE HCL 10 MG TABLET GT SCH ×4 (00:47→17:39)
[2016-10-29] MEDS: hydrALAZINE HCL 25 MG TABLET GT SCH ×4 (00:47→17:39)
[2016-10-29] MEDS: BLOOD SUGAR DIAGNOSTIC 1 EACH STRIP IN SCH ×4 (00:53→17:39)
[2016-10-29] MEDS: ALBUTEROL FS 2.5 MG/0.5 ML VIAL.NEB IH SCH ×4 (01:46→19:26)
[2016-10-29] MEDS: IPRATROPIUM NEB FS 0.5 MG/2.5 ML AMPUL.NEB IH SCH ×4 (01:46→19:26)
[2016-10-29] MEDS: ACETYLCYSTEINE 20% SOLN 800 MG/4 ML VIAL NEB SCH ×3 (01:46→14:25)
[2016-10-29 04:00] VITALS: BP 152/86
[2016-10-29] MEDS: INSULIN REGULAR, HUMAN 100 UNIT/ML 3 ML VIAL SQ PRN (05:24)
--- NOTE | 2016-10-29 07:45 | NUR ---
RN INITIAL NOTE RECEIVED REPORT FROM GIOVANA SKELTON NURSE FOR SHERRY. PORTEX # 7 AC 12 TV 550 FI02 35% PEEP 5. PT OBTUNDED. TELE SR. NOVASOURCE HELD BY COSTA NURSE DUE TO RESIDUAL. IV R WRIST 20 G INTACT AND PATENT. R FEMORAL HD CATH. ALL SAFETY MEASURES IN PLACE WILL CONTINUE TO MONITOR.
[2016-10-29 08:00] VITALS: BP 135/79
[2016-10-29] MEDS: ACETAMINOPHEN 650 MG/20.3 ML UDC GT SCH (09:03)
[2016-10-29] MEDS: PANTOPRAZOLE 40 MG/PACK PACK GT SCH ×2 (09:03→20:55)
[2016-10-29] MEDS: VIT B CMPLX 3/FA/VIT C/BIOTIN 1 TAB TABLET PO SCH (09:03)
[2016-10-29] MEDS: ZINC SULFATE 220 MG CAPSULE GT SCH (09:03)
[2016-10-29] MEDS: CHOLESTYRAMINE/ASPARTAME 4 G/PKT PACKET PO SCH ×2 (09:03→20:55)
[2016-10-29] MEDS: LEVETIRACETAM SOL (5 ML) 100 MG/ML UDC GT SCH ×2 (09:03→20:55)
[2016-10-29] MEDS: AMLODIPINE BESYLATE 5 MG TABLET GT SCH ×2 (09:04→20:55)
[2016-10-29] MEDS: LOSARTAN POTASSIUM 50 MG TABLET PO SCH ×2 (09:04→20:55)
[2016-10-29] MEDS: ASCORBIC ACID SYRUP 500 MG/5 ML UDC GT SCH (09:04)
[2016-10-29] MEDS: FERROUS SULFATE UDC 300 MG/5 ML UDC GT SCH (09:04)
[2016-10-29] MEDS: NYSTATIN (PYXIS) 500,000 UNIT/5 ML ORAL.SUSP PO SCH ×3 (09:05→17:39)
[2016-10-29] MEDS: HYDROGEL DRESSING 90 GM TUBE TP SCH (09:05)
[2016-10-29] MEDS: INSULIN DETEMIR 100 UNIT/ML CARTRIDGE SQ SCH (09:16)
[2016-10-29] MEDS: PROSOURCE / PROSTAT (PYXIS) 30 ML UDC GT SCH (09:18)
[2016-10-29] MEDS: ONDANSETRON HCL 4 MG/5 ML SOLUTION GT PRN (11:53)
[2016-10-29 12:00] VITALS: BP 123/64
--- NOTE | 2016-10-29 12:07 | NUR ---
RN NOTE ZOFRAN GIVEN PT VOMITED X1. GTF HELD 50ML RESIDUAL. WILL CONTINUE TO MONITOR. INSULIN NOT GIVEN DUE TO NPO.
[2016-10-29 16:00] VITALS: BP 133/65
--- NOTE | 2016-10-29 16:53 | NUR ---
RN NOTE CALLED AND LEFT MESSAGE FOR DR. SOTO REGARDING POSITIVE SCABIES.
--- NOTE | 2016-10-29 19:01 | NUR ---
RN CLOSING REPORT GIVEN TO CHELSEY SKELTON NURSE FOR SHERRY. PORTEX # 7 AC 12 TV 550 FI02 35% PEEP 5. PT OBTUNDED. TELE SR. NOVASOURCE RESTARTED 30ML/HR PT TOLERATING NO RESIDUAL. IV R WRIST #20 G INTACT AND PATENT. R FEMORAL HD CATH. ALL SAFETY MEASURES IN PLACE. ALL ORDERS CARRIED OUT. ALL MEDICATIONS GIVEN.
--- NOTE | 2016-10-29 19:30 | NUR ---
COMMODITY LOAN CLERK INITIAL NOTE RECEIVED REPORT FROM ZANDRA BRAVO. PT IN IN BED. OPENS EYES BUT DOES NOT FOLLOW COMMANDS. PT IS ON ISOLATION FOR SCABIES. SCRAPPING WAS DONE TODAY AND CONFIRMED RESULTS FOR SCABIES. ISOLATION PRECAUTIONS ARE BEING USED. LUNG SOUNDS RHONCHI. BOWEL SOUNDS PRESENT WITH GT INTACT, 100CC RESIDUAL NOTED. PT IS CONTRACTED. REPOSITIONED FOR COMFORT. BED IN LOW LOCKED POSITION. WILL CONTINUE TO MONITOR.
[2016-10-29 20:00] VITALS: BP 123/60
[2016-10-30] VITALS: BP 121/52
[2016-10-30] MEDS: BLOOD SUGAR DIAGNOSTIC 1 EACH STRIP IN SCH ×5 (00:09→23:34)
[2016-10-30] MEDS: METOCLOPRAMIDE HCL 10 MG TABLET GT SCH ×5 (00:10→23:31)
[2016-10-30] MEDS: hydrALAZINE HCL 25 MG TABLET GT SCH ×5 (00:10→23:27)
[2016-10-30] MEDS: IPRATROPIUM NEB FS 0.5 MG/2.5 ML AMPUL.NEB IH SCH ×4 (02:08→20:27)
[2016-10-30] MEDS: ACETYLCYSTEINE 20% SOLN 800 MG/4 ML VIAL NEB SCH ×4 (02:08→23:58)
[2016-10-30] MEDS: ALBUTEROL FS 2.5 MG/0.5 ML VIAL.NEB IH SCH ×4 (02:08→20:27)
[2016-10-30 04:00] VITALS: BP 108/60
[2016-10-30 08:00] VITALS: BP 113/51
[2016-10-30] MEDS: AMLODIPINE BESYLATE 5 MG TABLET GT SCH ×2 (09:00→21:53)
[2016-10-30] MEDS: LOSARTAN POTASSIUM 50 MG TABLET PO SCH ×2 (09:00→20:24)
[2016-10-30] MEDS: NYSTATIN (PYXIS) 500,000 UNIT/5 ML ORAL.SUSP PO SCH ×3 (09:02→17:27)
[2016-10-30] MEDS: FERROUS SULFATE UDC 300 MG/5 ML UDC GT SCH (09:02)
[2016-10-30] MEDS: LEVETIRACETAM SOL (5 ML) 100 MG/ML UDC GT SCH ×2 (09:02→20:37)
[2016-10-30] MEDS: ACETAMINOPHEN 650 MG/20.3 ML UDC GT SCH (09:02)
[2016-10-30] MEDS: VIT B CMPLX 3/FA/VIT C/BIOTIN 1 TAB TABLET PO SCH (09:03)
[2016-10-30] MEDS: PANTOPRAZOLE 40 MG/PACK PACK GT SCH ×2 (09:03→20:23)
[2016-10-30] MEDS: ZINC SULFATE 220 MG CAPSULE GT SCH (09:03)
[2016-10-30] MEDS: PROSOURCE / PROSTAT (PYXIS) 30 ML UDC GT SCH (09:03)
[2016-10-30] MEDS: ASCORBIC ACID SYRUP 500 MG/5 ML UDC GT SCH (09:03)
[2016-10-30] MEDS: CHOLESTYRAMINE/ASPARTAME 4 G/PKT PACKET PO SCH ×2 (09:03→20:25)
[2016-10-30] MEDS: HYDROGEL DRESSING 90 GM TUBE TP SCH (09:04)
[2016-10-30] MEDS: INSULIN DETEMIR 100 UNIT/ML CARTRIDGE SQ SCH (09:08)
[2016-10-30] MEDS ORDERED: IVERMECTIN 3 MG TABLET GT ONE (11:00)
[2016-10-30] MEDS ORDERED: PERMETHRIN 5% CRM 60 GM TUBE TP ONE (11:00)
[2016-10-30 12:00] VITALS: BP 116/48
[2016-10-30 16:00] VITALS: BP 122/70
--- NOTE | 2016-10-30 16:36 | NUR ---
RN NOTES PT HAS BEEN TREATED FOR SCABIES TODAY WITH PERMETHRIN CREAM AND ORAL IVERMECTIN TAB PER DR YOVANNY WHITE.
[2016-10-30] MEDS: INSULIN REGULAR, HUMAN 100 UNIT/ML 3 ML VIAL SQ PRN (17:30)
[2016-10-30 20:00] VITALS: BP 118/45
[2016-10-30] MEDS: FAMOTIDINE (20 MG) 20 MG TABLET GT SCH (20:23)
[2016-10-31] VITALS: BP 97/36
[2016-10-31] MEDS: ALBUTEROL FS 2.5 MG/0.5 ML VIAL.NEB IH SCH ×4 (02:00→20:01)
[2016-10-31] MEDS: IPRATROPIUM NEB FS 0.5 MG/2.5 ML AMPUL.NEB IH SCH ×4 (02:00→20:01)
[2016-10-31 04:00] VITALS: BP 137/52
[2016-10-31] MEDS: METOCLOPRAMIDE HCL 10 MG TABLET GT SCH ×3 (05:42→18:00)
[2016-10-31] MEDS: hydrALAZINE HCL 25 MG TABLET GT SCH ×3 (05:43→17:59)
[2016-10-31] MEDS: BLOOD SUGAR DIAGNOSTIC 1 EACH STRIP IN SCH ×3 (05:46→18:00)
[2016-10-31] MEDS: ACETYLCYSTEINE 20% SOLN 800 MG/4 ML VIAL NEB SCH ×3 (07:47→20:01)
[2016-10-31 08:00] VITALS: BP 129/63
[2016-10-31] MEDS: NYSTATIN (PYXIS) 500,000 UNIT/5 ML ORAL.SUSP PO SCH ×3 (09:20→18:00)
[2016-10-31] MEDS: VIT B CMPLX 3/FA/VIT C/BIOTIN 1 TAB TABLET PO SCH (09:20)
[2016-10-31] MEDS: ASCORBIC ACID SYRUP 500 MG/5 ML UDC GT SCH (09:20)
[2016-10-31] MEDS: PANTOPRAZOLE 40 MG/PACK PACK GT SCH ×2 (09:20→21:04)
[2016-10-31] MEDS: PROSOURCE / PROSTAT (PYXIS) 30 ML UDC GT SCH (09:20)
[2016-10-31] MEDS: LEVETIRACETAM SOL (5 ML) 100 MG/ML UDC GT SCH ×2 (09:21→21:04)
[2016-10-31] MEDS: ACETAMINOPHEN 650 MG/20.3 ML UDC GT SCH (09:21)
[2016-10-31] MEDS: FERROUS SULFATE UDC 300 MG/5 ML UDC GT SCH (09:21)
[2016-10-31] MEDS: SCOPOLAMINE HBR 1 EA PATCH.TD72 TD SCH (09:21)
[2016-10-31] MEDS: CHOLESTYRAMINE/ASPARTAME 4 G/PKT PACKET PO SCH ×2 (09:21→21:04)
[2016-10-31] MEDS: ZINC SULFATE 220 MG CAPSULE GT SCH (09:21)
[2016-10-31] MEDS: LOSARTAN POTASSIUM 50 MG TABLET PO SCH ×2 (09:22→20:55)
[2016-10-31] MEDS: AMLODIPINE BESYLATE 5 MG TABLET GT SCH ×2 (09:23→20:55)
[2016-10-31] MEDS: HYDROGEL DRESSING 90 GM TUBE TP SCH (09:24)
[2016-10-31] MEDS: INSULIN DETEMIR 100 UNIT/ML CARTRIDGE SQ SCH (09:25)
[2016-10-31 12:00] VITALS: BP 94/55
[2016-10-31] MEDS: TOBRAMYCIN OPHTH 5ML 5 ML BOTTLE LEFTEYE SCH ×2 (14:18→18:00)
[2016-10-31] MEDS: INSULIN REGULAR, HUMAN 100 UNIT/ML 3 ML VIAL SQ PRN ×2 (14:29→18:16)
[2016-10-31] MEDS: RENAL NOVASOURCE 1,000 ML BOTTLE GT PRN (14:29)
[2016-10-31 16:00] VITALS: BP 90/48
[2016-10-31] MEDS: ACETAMINOPHEN 650 MG/20.3 ML UDC GT PRN (18:00)
--- NOTE | 2016-10-31 18:15 | NUR ---
RT RECEIVED PT TRACHED WITH PORTEX #7 CUFFED ON VENT WITH SETTINGS PER MD ORDER. INSTALLMENT AGENT DONE. BILAT RHONCHI BREATH SOUNDS ON AUSCULTATION. VENT PLUGGED INTO RED OUTLET. ALARMS ON AND SET PROPERLY. AMBU BAG AT BEDSIDE. TRACH SECURED AND AIRWAY PATENT. SUCTIONED MOD AMOUNTS OF THICK, YELLOW SECRETIONS. BREATHING TX'S GIVEN ORDERED. NO ADVERSE EFFECTS OBSERVED. NO SOB OR SIGNS OF DISTRESS NOTED. WILL CONTINUE TO MONITOR THE PATIENT CLOSELY FOR ANY CHANGES. Addendum: 10/31/16 at 1817 by RACHAEL FAIRBANKS RT Amended: Links added.
[2016-10-31 20:00] VITALS: BP 96/36
[2016-11-01] VITALS: BP 114/60
[2016-11-01] MEDS: BLOOD SUGAR DIAGNOSTIC 1 EACH STRIP IN SCH ×4 (00:35→17:02)
[2016-11-01] MEDS: ACETAMINOPHEN 650 MG/20.3 ML UDC GT PRN ×2 (00:39→20:13)
[2016-11-01] MEDS: METOCLOPRAMIDE HCL 10 MG TABLET GT SCH ×4 (00:39→17:02)
[2016-11-01] MEDS: TOBRAMYCIN OPHTH 5ML 5 ML BOTTLE LEFTEYE SCH ×4 (00:40→17:02)
[2016-11-01] MEDS: ALBUTEROL FS 2.5 MG/0.5 ML VIAL.NEB IH SCH ×4 (00:55→19:18)
[2016-11-01] MEDS: IPRATROPIUM NEB FS 0.5 MG/2.5 ML AMPUL.NEB IH SCH ×4 (00:55→19:18)
[2016-11-01 04:00] VITALS: BP 99/54
[2016-11-01] MEDS: hydrALAZINE HCL 25 MG TABLET GT SCH ×5 (06:00→23:54)
[2016-11-01] MEDS: ACETYLCYSTEINE 20% SOLN 800 MG/4 ML VIAL NEB SCH ×3 (07:00→19:18)
[2016-11-01 08:00] VITALS: BP 112/64
[2016-11-01] MEDS: PROSOURCE / PROSTAT (PYXIS) 30 ML UDC GT SCH (08:12)
[2016-11-01] MEDS: PANTOPRAZOLE 40 MG/PACK PACK GT SCH ×2 (08:12→20:13)
[2016-11-01] MEDS: CHOLESTYRAMINE/ASPARTAME 4 G/PKT PACKET PO SCH ×2 (08:12→20:14)
[2016-11-01] MEDS: NYSTATIN (PYXIS) 500,000 UNIT/5 ML ORAL.SUSP PO SCH ×2 (08:13→12:05)
[2016-11-01] MEDS: ACETAMINOPHEN 650 MG/20.3 ML UDC GT SCH (08:13)
[2016-11-01] MEDS: LEVETIRACETAM SOL (5 ML) 100 MG/ML UDC GT SCH ×2 (08:13→20:14)
[2016-11-01] MEDS: ASCORBIC ACID SYRUP 500 MG/5 ML UDC GT SCH (08:13)
[2016-11-01] MEDS: VIT B CMPLX 3/FA/VIT C/BIOTIN 1 TAB TABLET PO SCH (08:14)
[2016-11-01] MEDS: AMLODIPINE BESYLATE 5 MG TABLET GT SCH ×2 (08:14→20:33)
[2016-11-01] MEDS: ZINC SULFATE 220 MG CAPSULE GT SCH (08:14)
[2016-11-01] MEDS: HYDROGEL DRESSING 90 GM TUBE TP SCH (08:15)
[2016-11-01] MEDS: FERROUS SULFATE UDC 300 MG/5 ML UDC GT SCH (08:17)
[2016-11-01] MEDS: LOSARTAN POTASSIUM 50 MG TABLET PO SCH ×2 (08:24→20:33)
[2016-11-01] MEDS: INSULIN DETEMIR 100 UNIT/ML CARTRIDGE SQ SCH (09:01)
[2016-11-01 12:00] VITALS: BP 108/54
[2016-11-01] MEDS: INSULIN REGULAR, HUMAN 100 UNIT/ML 3 ML VIAL SQ PRN (12:24)
[2016-11-01 16:00] VITALS: BP 126/64
[2016-11-01] MEDS: RENAL NOVASOURCE 1,000 ML BOTTLE GT PRN (17:01)
[2016-11-01 20:00] VITALS: BP 105/30
[2016-11-01] MEDS: FAMOTIDINE (20 MG) 20 MG TABLET GT SCH (20:13)
[2016-11-02] VITALS (7 sets, daily range): BP systolic 114–134; BP diastolic 58–71
[2016-11-02] MEDS: METOCLOPRAMIDE HCL 10 MG TABLET GT SCH ×5 (00:04→23:37)
[2016-11-02] MEDS: TOBRAMYCIN OPHTH 5ML 5 ML BOTTLE LEFTEYE SCH ×5 (00:09→23:40)
[2016-11-02] MEDS: BLOOD SUGAR DIAGNOSTIC 1 EACH STRIP IN SCH ×5 (00:09→23:39)
[2016-11-02] MEDS: ALBUTEROL FS 2.5 MG/0.5 ML VIAL.NEB IH SCH ×4 (00:49→19:18)
[2016-11-02] MEDS: IPRATROPIUM NEB FS 0.5 MG/2.5 ML AMPUL.NEB IH SCH ×4 (00:49→19:18)
[2016-11-02] MEDS: ACETAMINOPHEN 650 MG/20.3 ML UDC GT PRN (05:07)
[2016-11-02] MEDS: hydrALAZINE HCL 25 MG TABLET GT SCH ×4 (05:11→23:37)
[2016-11-02] MEDS: ACETYLCYSTEINE 20% SOLN 800 MG/4 ML VIAL NEB SCH ×3 (07:52→22:36)
[2016-11-02] MEDS: PROSOURCE / PROSTAT (PYXIS) 30 ML UDC GT SCH (09:00)
[2016-11-02] MEDS: ACETAMINOPHEN 650 MG/20.3 ML UDC GT SCH (09:00)
[2016-11-02] MEDS: ASCORBIC ACID SYRUP 500 MG/5 ML UDC GT SCH (09:57)
[2016-11-02] MEDS: FERROUS SULFATE UDC 300 MG/5 ML UDC GT SCH (09:57)
[2016-11-02] MEDS: PANTOPRAZOLE 40 MG/PACK PACK GT SCH ×2 (09:57→20:40)
[2016-11-02] MEDS: AMLODIPINE BESYLATE 5 MG TABLET GT SCH ×2 (09:57→20:42)
[2016-11-02] MEDS: LEVETIRACETAM SOL (5 ML) 100 MG/ML UDC GT SCH ×2 (09:57→20:40)
[2016-11-02] MEDS: CHOLESTYRAMINE/ASPARTAME 4 G/PKT PACKET PO SCH ×2 (09:57→21:41)
[2016-11-02] MEDS: ZINC SULFATE 220 MG CAPSULE GT SCH (09:58)
[2016-11-02] MEDS: VIT B CMPLX 3/FA/VIT C/BIOTIN 1 TAB TABLET PO SCH (09:58)
[2016-11-02] MEDS: LOSARTAN POTASSIUM 50 MG TABLET PO SCH ×2 (09:58→21:40)
[2016-11-02] MEDS: HYDROGEL DRESSING 90 GM TUBE TP SCH (10:11)
[2016-11-02] MEDS: INSULIN DETEMIR 100 UNIT/ML CARTRIDGE SQ SCH (10:39)
--- NOTE | 2016-11-02 15:30 | NUR ---
Patient rounds with ID. No diarrhea charted this past shift during bm. Patient skin , pericare and reposition. Note g-tube feed at 30 milliliters per hour of novasource.
--- NOTE | 2016-11-02 19:40 | NUR ---
RN INITIAL NOTES: RECEIVED REPORT FROM YOON BRAVO. PT IN BED, AWAKE, OBTUNDED, NO FACIAL GRIMACE NOTED, APPEARS CALM AND COMFORTABLE, MECH VENT PT WITH THE FF SETTING PORTEX #7, AC 12 TV 550 FIO2 35% PEEP 5, AMBU BAG AND CLINICAL ALARMS CHECKED, PT ON CONTINUOUS PULSE OX, HAS RIGHT FEMORAL HD CATH IN PLACED DRESSING C/D/I, ALSO PT HAS RIGHT FA IV ACCESS PATENT AND FLUSHING WELL, ON HL. HAS GTUBE IN PLACED CURRENTLY RECEIVING NOVASOURCE RENAL AT 30CC/HR. ON TELE SINUS RHYTHM HR 85, SAFETY PRECAUTIONS FOR FALL INITIATED CALL LIGHT IN REACH WILL CONTINUE TO MONITOR
--- NOTE | 2016-11-02 20:43 | NUR ---
residual check and patency: checked pt's abdomen, soft tot ouch with active bowel sound noted, no gtube residual obtained, due meds given at this time
[2016-11-02] MEDS: INSULIN REGULAR, HUMAN 100 UNIT/ML 3 ML VIAL SQ PRN (23:39)
--- NOTE | 2016-11-02 23:40 | NUR ---
accuc heck: blood sugar check and reveal 109, no insulin coverage given per sliding scale, all due meds given at this time, also no gtube residual noted,will continue to monitor for any s/s of hypo or hyper glycemia
[2016-11-03] VITALS: BP 148/87
[2016-11-03] MEDS: ALBUTEROL FS 2.5 MG/0.5 ML VIAL.NEB IH SCH ×4 (00:31→19:18)
[2016-11-03] MEDS: IPRATROPIUM NEB FS 0.5 MG/2.5 ML AMPUL.NEB IH SCH ×4 (00:31→19:18)
[2016-11-03 04:00] VITALS: BP 115/52
[2016-11-03] MEDS: BLOOD SUGAR DIAGNOSTIC 1 EACH STRIP IN SCH ×3 (05:15→17:48)
[2016-11-03] MEDS: METOCLOPRAMIDE HCL 10 MG TABLET GT SCH ×3 (05:16→17:48)
[2016-11-03] MEDS: INSULIN REGULAR, HUMAN 100 UNIT/ML 3 ML VIAL SQ PRN ×2 (05:16→12:32)
[2016-11-03] MEDS: hydrALAZINE HCL 25 MG TABLET GT SCH ×3 (05:16→17:48)
[2016-11-03] MEDS: TOBRAMYCIN OPHTH 5ML 5 ML BOTTLE LEFTEYE SCH ×3 (05:17→17:52)
--- NOTE | 2016-11-03 05:57 | NUR ---
accu check: blood sugar shows 136, no insulin coverage per sliding scale, pt on gtube feeding, will monitor for any s/s of hyper or hypoglycemia
--- NOTE | 2016-11-03 06:47 | NUR ---
rn closing notes: pt in bed, awake, tolerated [facility] vent setting well,remains sinus rhythm hr 82. pt right fa iv access remains in placed, all dressing c/d/i, ble kept offloaded, for scraping today with orders to send specimen to lab, right femoral hd cath remains in placed with dressing c/d/i. vs remains stable, needs attended, will endorse to day rn for belinda.
[2016-11-03] MEDS: ACETYLCYSTEINE 20% SOLN 800 MG/4 ML VIAL NEB SCH ×2 (07:38→13:22)
[2016-11-03 08:00] VITALS: BP 128/64
[2016-11-03] MEDS: ACETAMINOPHEN 650 MG/20.3 ML UDC GT SCH (09:09)
[2016-11-03] MEDS: FERROUS SULFATE UDC 300 MG/5 ML UDC GT SCH (09:10)
[2016-11-03] MEDS: LEVETIRACETAM SOL (5 ML) 100 MG/ML UDC GT SCH ×2 (09:11→20:52)
[2016-11-03] MEDS: SCOPOLAMINE HBR 1 EA PATCH.TD72 TD SCH (09:11)
[2016-11-03] MEDS: ZINC SULFATE 220 MG CAPSULE GT SCH (09:11)
[2016-11-03] MEDS: VIT B CMPLX 3/FA/VIT C/BIOTIN 1 TAB TABLET PO SCH (09:11)
[2016-11-03] MEDS: CHOLESTYRAMINE/ASPARTAME 4 G/PKT PACKET PO SCH ×2 (09:12→20:52)
[2016-11-03] MEDS: PANTOPRAZOLE 40 MG/PACK PACK GT SCH ×2 (09:12→20:52)
[2016-11-03] MEDS: AMLODIPINE BESYLATE 5 MG TABLET GT SCH ×2 (09:13→20:52)
[2016-11-03] MEDS: PROSOURCE / PROSTAT (PYXIS) 30 ML UDC GT SCH (09:13)
[2016-11-03] MEDS: LOSARTAN POTASSIUM 50 MG TABLET PO SCH ×2 (09:13→21:00)
[2016-11-03] MEDS: HYDROGEL DRESSING 90 GM TUBE TP SCH (09:14)
[2016-11-03] MEDS: ASCORBIC ACID SYRUP 500 MG/5 ML UDC GT SCH (09:14)
[2016-11-03] MEDS: INSULIN DETEMIR 100 UNIT/ML CARTRIDGE SQ SCH (09:20)
--- NOTE | 2016-11-03 11:43 | NUR ---
Dr. HUFFMAN AT NURSE STATION, REVIEWED MD MARIPOSA SAID OK NO LABS TODAY. PATIENT RECEIVING DIALYSIS RIGHT NOW WITH DIALYSIS NURSE AT BED SIDE. PATIENT TOLERATING PROCEDURE PER VITAL SIGNS. CENTRAL LINE DRESSING CHANGE ON R FEMORAL CATH CHANGED BY HD NURSE.
[2016-11-03 12:00] VITALS: BP 122/63
[2016-11-03 16:00] VITALS: BP 135/70
--- NOTE | 2016-11-03 18:49 | NUR ---
END OF SHIFT PATIENT REMAINS IN STABLE CONDITION AT END OF SHIFT. BREATHING EVEN AND UNLABORED ON MECH VENT. NO COMPLICATIONS WITH GT, NO RESIDUALS, NO EMESIS, NO ASPIRATION. RFA IV STILL PATENT, NO S/S OF INFECTION OR INFILTRATION. PATIENT REPOSITIONED Q2 HRS WITH EXTENSIVE WOUND/ SKIN CARE PROVIDED. PATIENT TOLERATED HD. NO ACUTE VS CHANGES THIS SHIFT. NO NEW SKIN BREAK DOWN. CALL IGHT IN REACH. WILL ENDORSE TO NIGHT NURSE.
[2016-11-03 20:00] VITALS: BP_SYST 118; BP_SYST 125; BP_DIAS 59; BP_DIAS 68
[2016-11-03] MEDS: FAMOTIDINE (20 MG) 20 MG TABLET GT SCH (20:52)
[2016-11-04] VITALS (7 sets, daily range): BP systolic 89–149; BP diastolic 59–76
[2016-11-04] MEDS: METOCLOPRAMIDE HCL 10 MG TABLET GT SCH ×4 (00:21→18:03)
[2016-11-04] MEDS: hydrALAZINE HCL 25 MG TABLET GT SCH ×4 (00:21→18:03)
[2016-11-04] MEDS: TOBRAMYCIN OPHTH 5ML 5 ML BOTTLE LEFTEYE SCH ×4 (00:22→18:03)
[2016-11-04] MEDS: ACETYLCYSTEINE 20% SOLN 800 MG/4 ML VIAL NEB SCH ×3 (00:29→14:14)
[2016-11-04] MEDS: IPRATROPIUM NEB FS 0.5 MG/2.5 ML AMPUL.NEB IH SCH ×4 (00:31→19:32)
[2016-11-04] MEDS: ALBUTEROL FS 2.5 MG/0.5 ML VIAL.NEB IH SCH ×4 (00:31→19:32)
[2016-11-04] MEDS: BLOOD SUGAR DIAGNOSTIC 1 EACH STRIP IN SCH ×4 (00:51→18:03)
--- NOTE | 2016-11-04 08:00 | NUR ---
curriculum director received pt in bed obtunded contracted on vent settings noted, pt on monitor, ambu bag at bedside with continuos pulse ox at bedside, gt feeding running with 0 cc residual, vs stable meds given turn and reposition in bed fall precautions noted, offloaded lower and upper extremities as able pt is contracted difficult to fully offload, scabies scraping done by Mariola BRAVO infectious department awaiting for results to dc pt back to [facility].
[2016-11-04] MEDS: ZINC SULFATE 220 MG CAPSULE GT SCH (08:31)
[2016-11-04] MEDS: LEVETIRACETAM SOL (5 ML) 100 MG/ML UDC GT SCH ×2 (08:31→20:30)
[2016-11-04] MEDS: LOSARTAN POTASSIUM 50 MG TABLET PO SCH ×2 (08:31→20:31)
[2016-11-04] MEDS: PANTOPRAZOLE 40 MG/PACK PACK GT SCH ×2 (08:31→20:31)
[2016-11-04] MEDS: ACETAMINOPHEN 650 MG/20.3 ML UDC GT SCH (08:31)
[2016-11-04] MEDS: AMLODIPINE BESYLATE 5 MG TABLET GT SCH ×2 (08:31→20:31)
[2016-11-04] MEDS: CHOLESTYRAMINE/ASPARTAME 4 G/PKT PACKET PO SCH ×2 (08:31→20:30)
[2016-11-04] MEDS: VIT B CMPLX 3/FA/VIT C/BIOTIN 1 TAB TABLET PO SCH (08:31)
[2016-11-04] MEDS: PROSOURCE / PROSTAT (PYXIS) 30 ML UDC GT SCH (08:43)
[2016-11-04] MEDS: FERROUS SULFATE UDC 300 MG/5 ML UDC GT SCH (08:44)
[2016-11-04] MEDS: ASCORBIC ACID SYRUP 500 MG/5 ML UDC GT SCH (08:44)
[2016-11-04] MEDS: HYDROGEL DRESSING 90 GM TUBE TP SCH (08:45)
[2016-11-04] MEDS: INSULIN DETEMIR 100 UNIT/ML CARTRIDGE SQ SCH (08:48)
--- NOTE | 2016-11-04 08:50 | NUR ---
RT PATIENT REC'D TRACHED ON [facility] VENT WITH SETTINGS SET BY MD WHITE TOLERATED WELL. VENT ALARMS CHECKED + AUDIBLE. CUFF PRESSURE CHECKED CUPOLA REPAIRER. TRACH SECURE + IN PROPER POSITION. B/S DIM COARSE. SUCTIONED WITH MOD AMT PALE SEMITHICK SECRETIONS. PATIENT NON RESPONSIVE, APPEARS COMFORTABLE AND IN NO DISTRESS AT THIS TIME. AMBU BAG AT HOB. CONT CURRENT PLAN OF RESPIRATORY CARE. Addendum: 11/04/16 at 0850 by DANELLE MORTENSEN RT Amended: Links added.
[2016-11-04] MEDS ORDERED: TOBR5DRO12 LEFTEYE (10:54)
[2016-11-04] MEDS: INSULIN REGULAR, HUMAN 100 UNIT/ML 3 ML VIAL SQ PRN (11:53)
[2016-11-04] MEDS: RENAL NOVASOURCE 1,000 ML BOTTLE GT PRN (18:02)
--- NOTE | 2016-11-04 19:12 | NUR ---
RESULTS OF REPEAT SKIN SCRAPING POSITIVE FOR SCABBIES, ,ENDORSED TO NIGHT MILLER APPRENTICE IVANA AND PAGING DR. WILKS ID IN CHARGE OF PATIENT CASE AWAITS RESPONSE.RESULT RELAYED BY PATHOLOGIST DR. JENSEN.
--- NOTE | 2016-11-04 19:22 | NUR ---
rn SPOKE TO MD EFE MD AWARE OF POSITIVE SCABIES RESULT, WITH NEW ORDER TO REPEAT PREVIOUS TREATMENT FROM 10/30, GIVE IVERMECTIN 12MG GT ONCE AND ELIMITE CREAM TONIGHT TIMES ONE.
[2016-11-04] MEDS ORDERED: PERMETHRIN 5% CRM 60 GM TUBE TP ONE (19:30)
[2016-11-04] MEDS ORDERED: IVERMECTIN 3 MG TABLET GT ONE (19:30)
[2016-11-05] VITALS (10 sets, daily range): BP systolic 110–136; BP diastolic 55–68
[2016-11-05] MEDS: ALBUTEROL FS 2.5 MG/0.5 ML VIAL.NEB IH SCH ×4 (00:29→19:28)
[2016-11-05] MEDS: IPRATROPIUM NEB FS 0.5 MG/2.5 ML AMPUL.NEB IH SCH ×4 (00:30→19:28)
[2016-11-05] MEDS: ACETYLCYSTEINE 20% SOLN 800 MG/4 ML VIAL NEB SCH ×3 (00:30→15:40)
[2016-11-05] MEDS: hydrALAZINE HCL 25 MG TABLET GT SCH ×4 (00:33→17:34)
[2016-11-05] MEDS: METOCLOPRAMIDE HCL 10 MG TABLET GT SCH ×4 (00:33→17:34)
[2016-11-05] MEDS: TOBRAMYCIN OPHTH 5ML 5 ML BOTTLE LEFTEYE SCH ×4 (00:33→17:07)
[2016-11-05] MEDS: BLOOD SUGAR DIAGNOSTIC 1 EACH STRIP IN SCH ×4 (00:37→17:34)
[2016-11-05] MEDS: INSULIN REGULAR, HUMAN 100 UNIT/ML 3 ML VIAL SQ PRN (06:37)
--- NOTE | 2016-11-05 07:34 | NUR ---
Received pt in bed sleeping.no c/o pain,no sob,no s/s of distress.on mechanical vent setting well tolerated.on g.tube feeding at 30 ml/hr.i.v site cdi and patent.safety measures in place bed in low and locked position.will continue to monitor for changes.
[2016-11-05] MEDS: FERROUS SULFATE UDC 300 MG/5 ML UDC GT SCH (08:15)
[2016-11-05] MEDS: ZINC SULFATE 220 MG CAPSULE GT SCH (08:15)
[2016-11-05] MEDS: LOSARTAN POTASSIUM 50 MG TABLET PO SCH ×2 (08:15→21:04)
[2016-11-05] MEDS: VIT B CMPLX 3/FA/VIT C/BIOTIN 1 TAB TABLET PO SCH (08:15)
[2016-11-05] MEDS: CHOLESTYRAMINE/ASPARTAME 4 G/PKT PACKET PO SCH ×2 (08:16→21:03)
[2016-11-05] MEDS: AMLODIPINE BESYLATE 5 MG TABLET GT SCH ×2 (08:16→21:03)
[2016-11-05] MEDS: ASCORBIC ACID SYRUP 500 MG/5 ML UDC GT SCH (08:16)
[2016-11-05] MEDS: ACETAMINOPHEN 650 MG/20.3 ML UDC GT SCH (08:16)
[2016-11-05] MEDS: PANTOPRAZOLE 40 MG/PACK PACK GT SCH ×2 (08:16→21:03)
[2016-11-05] MEDS: LEVETIRACETAM SOL (5 ML) 100 MG/ML UDC GT SCH ×2 (08:32→21:03)
[2016-11-05] MEDS: PROSOURCE / PROSTAT (PYXIS) 30 ML UDC GT SCH (08:32)
[2016-11-05] MEDS: INSULIN DETEMIR 100 UNIT/ML CARTRIDGE SQ SCH (08:39)
[2016-11-05] MEDS: HYDROGEL DRESSING 90 GM TUBE TP SCH (09:00)
[2016-11-05] MEDS ORDERED: IVERMECTIN 3 MG TABLET PO ONE (12:30)
--- NOTE | 2016-11-05 19:35 | NUR ---
BATCH UNLOADER INITIAL NOTE PT RECEIVED IN BED. OBTUNDED. ON MECH VENT WITH SETTINGS WELL TOLERATED AND SATING WELL. TELE-SINUS RHYTHM. ISOLATION PRECAUTIONS FOR SCABIES OBSERVED. IV RFA PATENT, CLEAN AND FLUSHING WELL. R FEMORAL HD CATH DRY, CLEAN AND INTACT. GTUBE SITE INTACT AND FEEDING WELL TOLERATED WITHOUT ANY RESIDUAL. WILL CONTINUE TO MONITOR.
[2016-11-05] MEDS: FAMOTIDINE (20 MG) 20 MG TABLET GT SCH (21:03)
[2016-11-06] VITALS: BP 110/74
[2016-11-06] MEDS: ACETYLCYSTEINE 20% SOLN 800 MG/4 ML VIAL NEB SCH ×3 (00:21→14:25)
[2016-11-06] MEDS: IPRATROPIUM NEB FS 0.5 MG/2.5 ML AMPUL.NEB IH SCH ×4 (00:22→20:05)
[2016-11-06] MEDS: ALBUTEROL FS 2.5 MG/0.5 ML VIAL.NEB IH SCH ×4 (00:22→20:05)
[2016-11-06] MEDS: BLOOD SUGAR DIAGNOSTIC 1 EACH STRIP IN SCH ×4 (00:39→18:24)
[2016-11-06] MEDS: METOCLOPRAMIDE HCL 10 MG TABLET GT SCH ×4 (00:39→18:23)
[2016-11-06] MEDS: TOBRAMYCIN OPHTH 5ML 5 ML BOTTLE LEFTEYE SCH ×4 (00:42→18:26)
[2016-11-06] MEDS: INSULIN REGULAR, HUMAN 100 UNIT/ML 3 ML VIAL SQ PRN ×2 (00:45→12:27)
[2016-11-06 04:00] VITALS: BP 124/39
[2016-11-06] MEDS: hydrALAZINE HCL 25 MG TABLET GT SCH ×4 (05:23→18:00)
[2016-11-06] MEDS: RENAL NOVASOURCE 1,000 ML BOTTLE GT PRN (05:32)
--- NOTE | 2016-11-06 06:47 | NUR ---
DIGITAL SALES EXECUTIVE CLOSING NOTE PT REMAINED STABLE DURING SHIFT. NO ACUTE DISTRESS NOTED. VENT SETTINGS WELL TOLERATED. ISOLATION PRECAUTIONS OBSERVED FOR SCABIES. GTUBE FEEDING WELL TOLERATED WITHOUT RESIDUAL. IV SITE INTACT AND PATENT. WILL ENDORSE TO NEXT SHIFT FOR SHERRY.
--- NOTE | 2016-11-06 07:15 | NUR ---
RN INITIAL NOTE: RECEIVED REPORT W/ PT IN BED, SLEEPING, WITH NO FACIAL GRIMACE NOTED, IN A COMFORTABLE POSITION. [facility] VENT PT WITH THE FF SETTING PORTEX #7, AC 12, TV 550, FI02 35%, PEEP 5. ALL EQUIPMENT SEEN AT BEDSIDE. PT IS ON CONTINUOUS PULSE OX, HAS RIGHT FEMORAL HD CATH. HAS G-TUBE PLACED RECEIVING NOVASOURCE RENAL AT 30CC/HR. ON TELE SINUS RHYTHM 75. SAFETY PRECAUTIONS IN PLACE, CALL LIGHT WITHIN REACH, WILL CONTINUE TO MONITOR FOR PATIENT NEEDS.
[2016-11-06 08:00] VITALS: BP 120/51
[2016-11-06] MEDS ORDERED: IVERMECTIN 3 MG TABLET PO ONE (09:00)
[2016-11-06] MEDS: ACETAMINOPHEN 650 MG/20.3 ML UDC GT SCH (09:04)
[2016-11-06] MEDS: ASCORBIC ACID SYRUP 500 MG/5 ML UDC GT SCH (09:04)
[2016-11-06] MEDS: PROSOURCE / PROSTAT (PYXIS) 30 ML UDC GT SCH (09:05)
[2016-11-06] MEDS: CHOLESTYRAMINE/ASPARTAME 4 G/PKT PACKET PO SCH ×2 (09:05→22:09)
[2016-11-06] MEDS: VIT B CMPLX 3/FA/VIT C/BIOTIN 1 TAB TABLET PO SCH (09:05)
[2016-11-06] MEDS: SCOPOLAMINE HBR 1 EA PATCH.TD72 TD SCH (09:05)
[2016-11-06] MEDS: LEVETIRACETAM SOL (5 ML) 100 MG/ML UDC GT SCH ×2 (09:05→22:09)
[2016-11-06] MEDS: FERROUS SULFATE UDC 300 MG/5 ML UDC GT SCH (09:05)
[2016-11-06] MEDS: ZINC SULFATE 220 MG CAPSULE GT SCH (09:05)
[2016-11-06] MEDS: AMLODIPINE BESYLATE 5 MG TABLET GT SCH ×2 (09:06→21:00)
[2016-11-06] MEDS: LOSARTAN POTASSIUM 50 MG TABLET PO SCH ×2 (09:06→22:09)
[2016-11-06] MEDS: PANTOPRAZOLE 40 MG/PACK PACK GT SCH ×2 (09:06→22:09)
[2016-11-06] MEDS: HYDROGEL DRESSING 90 GM TUBE TP SCH (09:06)
[2016-11-06] MEDS: Z GUARD REMEDY 2 OZ OINT TP PRN (09:06)
[2016-11-06] MEDS: INSULIN DETEMIR 100 UNIT/ML CARTRIDGE SQ SCH (09:07)
[2016-11-06 12:00] VITALS: BP 114/45
--- NOTE | 2016-11-06 15:22 | NUR ---
RT RCV'D PT TRACH'D ON PORTEX #7 CUFFED ON [facility] VENT WITH SETTINGS PER MD ORDER. COAL DRIER OPERATOR DONE. BILAT BREATH SOUNDS ON AUSCULTATION. AMBU BAG AT HEAD OF BED. ALARMS ON AND FUNCTIONING PROPERLY. TRACH SECURED AND AIRWAY PATENT. SUCTIONED SMALL AMOUNTS OF THICK, YELLOW SECRETIONS. TX'S GIVEN ORDERED, NO ADVERSE REACTIONS OBESRVED. NO SIGNS OF DISTRESS NOTED. WILL CONTINUE TO MONITOR THE PATIENT FOR ANY CHANGE OF CONDITION. Addendum: 11/06/16 at 1836 by RACHAEL FAIRBANKS RT Amended: Links added.
[2016-11-06 16:00] VITALS: BP 110/56
--- NOTE | 2016-11-06 18:30 | NUR ---
PRESS SETTER CLOSING NOTE PT RECEIVED AT 1700 IN NO ACUTE DISTRESS. PT REMAINED STABLE DURING REMAINDER OF THE SHIFT. NO ACUTE DISTRESS NOTED. VENT SETTINGS WELL TOLERATED. ISOLATION PRECAUTIONS OBSERVED FOR SCABIES. G-TUBE FEEDING WELL TOLERATED WITHOUT RESIDUAL. IV SITE INTACT AND PATENT. WILL ENDORSE TO PM SHIFT FOR CONTINUATION OF CARE.
--- NOTE | 2016-11-06 19:40 | NUR ---
COPY CENTER ASSOCIATE INITIAL NOTE RECEIVED PT IN BED. OBTUNDED. ON MECH VENT WITH SETTINGS WELL TOLERATED. NO SOB AND SATING WELL. TELE-SINUS RHYTHM. R FEMORAL HD CATH CLEAN AND INTACT. IV RFA #20 CLEAN AND FLUSHING WELL. GTUBE FEEDING WELL TOLERATED WITH 10 ML OF RESIDUAL NOTED AND FLUSHING WELL. GTUBE SITE CLEAN AND DRY. RECEIVED CALL FROM LAB/PATHOLOGY REGARDING SKIN SCRAPING TO R/O SCABIES. PT SCRAPE TEST REVEALS NEGATIVE FOR SCABIES. WILL INFORM MD REGARDING RESULTS. WILL CONTINUE TO MONITOR.
[2016-11-06 20:00] VITALS: BP 111/41
[2016-11-07] VITALS: BP 127/45
[2016-11-07] MEDS: BLOOD SUGAR DIAGNOSTIC 1 EACH STRIP IN SCH ×4 (00:37→18:12)
[2016-11-07] MEDS: METOCLOPRAMIDE HCL 10 MG TABLET GT SCH ×4 (00:37→18:12)
[2016-11-07] MEDS: hydrALAZINE HCL 25 MG TABLET GT SCH ×4 (00:37→18:00)
[2016-11-07] MEDS: TOBRAMYCIN OPHTH 5ML 5 ML BOTTLE LEFTEYE SCH ×2 (00:39→05:17)
[2016-11-07] MEDS: ACETYLCYSTEINE 20% SOLN 800 MG/4 ML VIAL NEB SCH ×4 (02:06→23:30)
[2016-11-07] MEDS: ALBUTEROL FS 2.5 MG/0.5 ML VIAL.NEB IH SCH ×4 (02:07→19:36)
[2016-11-07] MEDS: IPRATROPIUM NEB FS 0.5 MG/2.5 ML AMPUL.NEB IH SCH ×4 (02:07→19:36)
[2016-11-07] MEDS: RENAL NOVASOURCE 1,000 ML BOTTLE GT PRN (03:11)
[2016-11-07 04:00] VITALS: BP 115/42
--- NOTE | 2016-11-07 07:00 | NUR ---
BOX ICER CLOSING NOTE PT REMAINED STABLE DURING SHIFT. NO ACUTE DISTRESS NOTED. VENT SETTINGS WELL TOLERATED AND SATING WELL. ISOLATION PRECAUTIONS OBSERVED. REPOSITIONED Q2H. TREATMENT DONE ORDERED. ALL DUE MEDS GIVEN ORDERED AND WELL TOLERATED. ALL NEEDS ATTENDED TO PROMPTLY. WILL ENDORSE TO NEXT SHIFT FOR SHERRY.
--- NOTE | 2016-11-07 07:20 | NUR ---
RN INITIAL NOTES: REC'D PT ON BED, OBTUNDED, NOT IN ANY DISTRESS. PT ON MECH VENT VIA TRACH ON PRESCRIBED SETTINGS, SATURATING AT 100%. ON TELEMONITOR, SR. HAS PEG PATENT & INTACT, ON CONTINUOUS TF NOVASOURCE 30 CC/HR INFUSING WELL, NO RESIDUAL UPON CHECKING. HAS R FEMORAL HD CATH INTACT. HAS RFA G20, SL, FLUSHED, PATENT & INTACT W/ NO SIGNS OF INFECTION/ INFILTRATION NOTED. PROVIDED COMFORT & SAFETY MEASURES. CALL LIGHT PLACED W/IN REACH. BED KEPT LOW & IN LOCKED POSITION. ISOLATION PRECAUTION OBSERVED. NEEDS ATTENDED. WILL CONTINUE TO MONITOR.
[2016-11-07 08:00] VITALS: BP 127/55
[2016-11-07] MEDS: VIT B CMPLX 3/FA/VIT C/BIOTIN 1 TAB TABLET PO SCH (08:18)
[2016-11-07] MEDS: LEVETIRACETAM SOL (5 ML) 100 MG/ML UDC GT SCH ×2 (08:18→21:48)
[2016-11-07] MEDS: PANTOPRAZOLE 40 MG/PACK PACK GT SCH ×2 (08:18→21:48)
[2016-11-07] MEDS: FERROUS SULFATE UDC 300 MG/5 ML UDC GT SCH (08:18)
[2016-11-07] MEDS: ASCORBIC ACID SYRUP 500 MG/5 ML UDC GT SCH (08:18)
[2016-11-07] MEDS: ACETAMINOPHEN 650 MG/20.3 ML UDC GT SCH (08:18)
[2016-11-07] MEDS: CHOLESTYRAMINE/ASPARTAME 4 G/PKT PACKET PO SCH ×2 (08:18→21:51)
[2016-11-07] MEDS: PROSOURCE / PROSTAT (PYXIS) 30 ML UDC GT SCH (08:19)
[2016-11-07] MEDS: ZINC SULFATE 220 MG CAPSULE GT SCH (08:19)
[2016-11-07] MEDS: Z GUARD REMEDY 2 OZ OINT TP PRN (08:20)
[2016-11-07] MEDS: HYDROGEL DRESSING 90 GM TUBE TP SCH (08:20)
[2016-11-07] MEDS: INSULIN DETEMIR 100 UNIT/ML CARTRIDGE SQ SCH (08:22)
[2016-11-07] MEDS: AMLODIPINE BESYLATE 5 MG TABLET GT SCH ×2 (09:00→21:49)
[2016-11-07] MEDS: LOSARTAN POTASSIUM 50 MG TABLET PO SCH ×2 (09:00→21:52)
[2016-11-07 12:00] VITALS: BP 107/52
--- NOTE | 2016-11-07 12:30 | NUR ---
RN NOTES: DR. RIVERA MADE AWARE THAT PER PATHOLOGY SKIN SCRAPING OF THE LEFT THIGH WAS NEGATIVE TO PARASITE/ OVA W/ ORDERS FOR HER TO BE DC HANNA.
[2016-11-07] MEDS: INSULIN REGULAR, HUMAN 100 UNIT/ML 3 ML VIAL SQ PRN ×2 (12:37→18:13)
[2016-11-07 16:00] VITALS: BP 95/38
--- NOTE | 2016-11-07 19:00 | NUR ---
RN CLOSING NOTES: NO ACUTE CHANGES NOTED W/IN SHIFT. PT TOLERATED PRESCRIBED MV SETTINGS. PEG KEPT PATENT & INTACT, TOLERATED CONT TF NOVASOURCE X 30 CC/HR INFUSING WELL. IV LINE ACCESS KEPT PATENT & INTACT. HD TOLERATED WELL, 1L OUTPUT. WOUND CARE DONE. KEPT WELL RESTED. ISOLATION PREC OBSERVED. BED KEPT LOW & IN LOCKED POS. SUCTIONED SECRETIONS. ENDORSED TO PM RN FOR SHERRY.
--- NOTE | 2016-11-07 19:28 | NUR ---
RN INITIAL NOTES: RECEIVED PT ON BED, OBTUNDED, NOT IN ANY DISTRESS OR SIGN OF FACIAL GRIMACING NOTED. PT ON MECH VENT VIA TRACH ON PRESCRIBED SETTINGS, SATURATING AT 100%. ON TELEMONITOR, SR. HAS PEG PATENT & INTACT, ON CONTINUOUS TF NOVASOURCE 30 CC/HR INFUSING WELL, NO RESIDUAL UPON CHECKING. HAS R FEMORAL HD CATH INTACT. HAS RFA G20, SL, FLUSHED, PATENT & INTACT W/ NO SIGNS OF INFECTION/ INFILTRATION NOTED. PROVIDED COMFORT & SAFETY MEASURES. CALL LIGHT PLACED W/IN REACH. BED KEPT LOW & IN LOCKED POSITION. ISOLATION PRECAUTION OBSERVED. NEEDS ATTENDED. WILL CONTINUE TO MONITOR
[2016-11-07 20:00] VITALS: BP 114/59
[2016-11-07] MEDS: FAMOTIDINE (20 MG) 20 MG TABLET GT SCH (21:48)
[2016-11-08] VITALS (12 sets, daily range): BP systolic 102–124; BP diastolic 42–66
[2016-11-08] MEDS: METOCLOPRAMIDE HCL 10 MG TABLET GT SCH ×5 (00:14→23:47)
[2016-11-08] MEDS: hydrALAZINE HCL 25 MG TABLET GT SCH ×5 (00:15→23:49)
[2016-11-08] MEDS: BLOOD SUGAR DIAGNOSTIC 1 EACH STRIP IN SCH ×5 (00:18→23:42)
[2016-11-08] MEDS: ALBUTEROL FS 2.5 MG/0.5 ML VIAL.NEB IH SCH ×4 (03:14→19:16)
[2016-11-08] MEDS: IPRATROPIUM NEB FS 0.5 MG/2.5 ML AMPUL.NEB IH SCH ×4 (03:14→19:16)
[2016-11-08] MEDS: INSULIN REGULAR, HUMAN 100 UNIT/ML 3 ML VIAL SQ PRN ×3 (05:10→23:57)
[2016-11-08] MEDS: RENAL NOVASOURCE 1,000 ML BOTTLE GT PRN (05:11)
--- NOTE | 2016-11-08 06:18 | NUR ---
RN INITIAL NOTES: ENDORSED PT ON BED, OBTUNDED, NOT IN ANY DISTRESS OR SIGN OF FACIAL GRIMACING NOTED. PT ON MECH VENT VIA TRACH ON PRESCRIBED SETTINGS, SATURATING AT 100%. ON TELEMONITOR, SR. HAS PEG PATENT & INTACT, ON CONTINUOUS TF NOVASOURCE 30 CC/HR INFUSING WELL, NO RESIDUAL UPON CHECKING. HAS R FEMORAL HD CATH INTACT. HAS RFA G20, SL, FLUSHED, PATENT & INTACT W/ NO SIGNS OF INFECTION/ INFILTRATION NOTED. PROVIDED COMFORT & SAFETY MEASURES. CALL LIGHT PLACED W/IN REACH. BED KEPT LOW & IN LOCKED POSITION. ISOLATION PRECAUTION OBSERVED. NEEDS, FOR PENDING DISCHARGE IN AM.
--- NOTE | 2016-11-08 07:15 | NUR ---
RN INITIAL NOTE PATIENT RECEIVED IN BED, SLEEPING. PT IS OBTUNDED, NON VERBAL. PT HAS TRACH, PORTEX #7, AC-12, VT-550,FI02-35%, PEEP-5. SATING WELL. NO S/S OF RESPIRATORY DISTRESS OR SOB. PT IS SINUS RHYTHM ON TELE MONITOR WITH BBB. SKIN IS WARM AND DRY TO TOUCH.IV SITE FLUSHED, PATENT. GTUBE, PATENT, RUNNING NOVASOURCE AT 30ML/HR. SAFETY PRECAUTIONS IN PLACE, BED IN LOCKED, LOW POSITION, TWO SIDE RAILS UP WITH ALARM ON. CALL LIGHT WITHIN EASY REACH. WILL CONTINUE TO MONITOR.
[2016-11-08] MEDS: ACETYLCYSTEINE 20% SOLN 800 MG/4 ML VIAL NEB SCH ×3 (07:40→23:20)
[2016-11-08] MEDS: FERROUS SULFATE UDC 300 MG/5 ML UDC GT SCH (08:36)
[2016-11-08] MEDS: ACETAMINOPHEN 650 MG/20.3 ML UDC GT SCH (08:36)
[2016-11-08] MEDS: PROSOURCE / PROSTAT (PYXIS) 30 ML UDC GT SCH (08:36)
[2016-11-08] MEDS: ASCORBIC ACID SYRUP 500 MG/5 ML UDC GT SCH (08:36)
[2016-11-08] MEDS: LEVETIRACETAM SOL (5 ML) 100 MG/ML UDC GT SCH ×2 (08:36→20:50)
[2016-11-08] MEDS: PANTOPRAZOLE 40 MG/PACK PACK GT SCH ×2 (08:36→20:50)
[2016-11-08] MEDS: ZINC SULFATE 220 MG CAPSULE GT SCH (08:36)
[2016-11-08] MEDS: CHOLESTYRAMINE/ASPARTAME 4 G/PKT PACKET PO SCH ×2 (08:36→20:50)
[2016-11-08] MEDS: VIT B CMPLX 3/FA/VIT C/BIOTIN 1 TAB TABLET PO SCH (08:38)
[2016-11-08] MEDS: LOSARTAN POTASSIUM 50 MG TABLET PO SCH ×2 (08:38→20:51)
[2016-11-08] MEDS: HYDROGEL DRESSING 90 GM TUBE TP SCH (08:39)
[2016-11-08] MEDS: AMLODIPINE BESYLATE 5 MG TABLET GT SCH ×2 (08:39→20:51)
[2016-11-08] MEDS: INSULIN DETEMIR 100 UNIT/ML CARTRIDGE SQ SCH (09:00)
--- NOTE | 2016-11-08 19:02 | NUR ---
RN CLOSING NOTE ALL MD ORDERS CARRIED OUT. PATIENT KEPT CLEAN AND DRY. SAFETY PRECAUTIONS IN PLACE AT ALL TIMES. ISOLATION PRECAUTIONS OBSERVED AT ALL TIMES. WILL GIVE REPORT TO PM RN FOR SHERRY.
[2016-11-08] MEDS: ACETAMINOPHEN 650 MG/20.3 ML UDC GT PRN (23:47)
[2016-11-09] VITALS (7 sets, daily range): BP systolic 110–148; BP diastolic 42–69
[2016-11-09] MEDS: ALBUTEROL FS 2.5 MG/0.5 ML VIAL.NEB IH SCH ×4 (01:11→19:11)
[2016-11-09] MEDS: IPRATROPIUM NEB FS 0.5 MG/2.5 ML AMPUL.NEB IH SCH ×4 (01:11→19:11)
[2016-11-09] MEDS: METOCLOPRAMIDE HCL 10 MG TABLET GT SCH ×3 (05:26→17:36)
[2016-11-09] MEDS: BLOOD SUGAR DIAGNOSTIC 1 EACH STRIP IN SCH ×3 (05:27→17:37)
[2016-11-09] MEDS: hydrALAZINE HCL 25 MG TABLET GT SCH ×3 (05:27→17:37)
[2016-11-09] MEDS: RENAL NOVASOURCE 1,000 ML BOTTLE GT PRN (05:28)
--- NOTE | 2016-11-09 05:45 | NUR ---
B/S 139 NO COVERAGE GIVEN PT TRENDING NORMAL.
--- NOTE | 2016-11-09 05:56 | NUR ---
RN CLOSING NOTES: ENDORSED PT ON BED, OBTUNDED, NOT IN ANY DISTRESS OR SIGN OF FACIAL GRIMACING NOTED. PT ON MECH VENT VIA TRACH ON PRESCRIBED SETTINGS, SATURATING AT 100%. ON TELEMONITOR, SR. HAS PEG PATENT & INTACT, ON CONTINUOUS TF NOVASOURCE 30 CC/HR INFUSING WELL, NO RESIDUAL UPON CHECKING. HAS R FEMORAL HD CATH INTACT. HAS RFA G20, SL, FLUSHED, PATENT & INTACT W/ NO SIGNS OF INFECTION/ INFILTRATION NOTED. PROVIDED COMFORT & SAFETY MEASURES. CALL LIGHT PLACED W/IN REACH. BED KEPT LOW & IN LOCKED POSITION. ISOLATION PRECAUTION OBSERVED. NEEDS
[2016-11-09] MEDS: ACETYLCYSTEINE 20% SOLN 800 MG/4 ML VIAL NEB SCH ×2 (08:22→14:18)
[2016-11-09 08:42] LABS: BASOPHILS % (AUTO) 0.3 % (0.0-2.0); EOSINOPHILS % (AUTO) 9.2 % (0.0-6.0); HEMATOCRIT 23 % (33-45); HEMOGLOBIN 7.9 g/dL (11.5-14.8); LYMPHOCYTES # (AUTO) 1.1 /CMM (0.8-4.8); LYMPHOCYTES % (AUTO) 9.6 % (20.0-44.0); MEAN CORPUSCULAR HEMOGLOBIN 32 PG (26.0-33.0); MEAN CORPUSCULAR HGB CONC 34 g/dl (31.0-36.0); MEAN CORPUSCULAR VOLUME 93 fL (82-100); MONOCYTES # (AUTO) 0.4 /CMM (0.1-1.30); MONOCYTES % (AUTO) 3.5 % (2.0-12.0); NEUTROPHILS # (AUTO) 8.6 /CMM (1.8-8.9); NEUTROPHILS % (AUTO) 77.4 % (43.0-81.0); PLATELET COUNT (AUTO) 355 /CMM (150-450); RDW COEFFICIENT OF VARIATION 15.7 (11.5-15.0); RED BLOOD CELL COUNT(AUTO) 2.49 MIL/uL (4.0-5.2); WHITE BLOOD COUNT (AUTO) 11.1 K/uL (4.3-11.0)
[2016-11-09 08:47] LABS: CALCIUM, SERUM 8.7 mg/dL (8.5-10.1); CREATININE 3.5 mg/dL (0.6-1.3); POTASSIUM 3.7 mmol/L (3.5-5.1)
[2016-11-09] MEDS: ACETAMINOPHEN 650 MG/20.3 ML UDC GT SCH (09:21)
[2016-11-09] MEDS: CHOLESTYRAMINE/ASPARTAME 4 G/PKT PACKET PO SCH ×2 (09:21→21:11)
[2016-11-09] MEDS: ZINC SULFATE 220 MG CAPSULE GT SCH (09:21)
[2016-11-09] MEDS: LEVETIRACETAM SOL (5 ML) 100 MG/ML UDC GT SCH ×2 (09:21→21:11)
[2016-11-09] MEDS: VIT B CMPLX 3/FA/VIT C/BIOTIN 1 TAB TABLET PO SCH (09:21)
[2016-11-09] MEDS: FERROUS SULFATE UDC 300 MG/5 ML UDC GT SCH (09:21)
[2016-11-09] MEDS: ASCORBIC ACID SYRUP 500 MG/5 ML UDC GT SCH (09:21)
[2016-11-09] MEDS: PANTOPRAZOLE 40 MG/PACK PACK GT SCH ×2 (09:21→21:11)
[2016-11-09] MEDS: AMLODIPINE BESYLATE 5 MG TABLET GT SCH ×2 (09:23→21:10)
[2016-11-09] MEDS: HYDROGEL DRESSING 90 GM TUBE TP SCH (09:24)
[2016-11-09] MEDS: LOSARTAN POTASSIUM 50 MG TABLET PO SCH ×2 (09:24→21:12)
[2016-11-09] MEDS: INSULIN DETEMIR 100 UNIT/ML CARTRIDGE SQ SCH (09:26)
[2016-11-09] MEDS: PROSOURCE / PROSTAT (PYXIS) 30 ML UDC GT SCH (09:27)
[2016-11-09] MEDS: SCOPOLAMINE HBR 1 EA PATCH.TD72 TD SCH (09:55)
[2016-11-09] MEDS: INSULIN REGULAR, HUMAN 100 UNIT/ML 3 ML VIAL SQ PRN (13:07)
--- NOTE | 2016-11-09 20:00 | NUR ---
TELE/RN OPENING NOTES RECEIVED PATIENT HOB ELEVATED. NO S/S OF SOB OR DISTRESS. CAN OPEN EYES BUT OBTUNDED. SR AT 87. WOUND ON SACRAL AREA. WILL MONITOR. ON GTUBE FEEDING NOVA SOURCE AT 30ML/HR. WILL CONTINUE TO MONITOR.
[2016-11-09] MEDS: FAMOTIDINE (20 MG) 20 MG TABLET GT SCH (21:12)
[2016-11-10] VITALS: BP 126/59
[2016-11-10] MEDS: hydrALAZINE HCL 25 MG TABLET GT SCH ×4 (00:24→18:30)
[2016-11-10] MEDS: METOCLOPRAMIDE HCL 10 MG TABLET GT SCH ×4 (00:24→18:30)
[2016-11-10] MEDS: BLOOD SUGAR DIAGNOSTIC 1 EACH STRIP IN SCH ×4 (00:33→18:31)
[2016-11-10] MEDS: IPRATROPIUM NEB FS 0.5 MG/2.5 ML AMPUL.NEB IH SCH ×4 (00:34→19:38)
[2016-11-10] MEDS: ALBUTEROL FS 2.5 MG/0.5 ML VIAL.NEB IH SCH ×4 (00:34→19:38)
[2016-11-10] MEDS: ACETYLCYSTEINE 20% SOLN 800 MG/4 ML VIAL NEB SCH ×4 (00:34→23:01)
[2016-11-10 04:00] VITALS: BP 116/52
[2016-11-10] MEDS: RENAL NOVASOURCE 1,000 ML BOTTLE GT PRN (05:39)
--- NOTE | 2016-11-10 07:00 | NUR ---
tele/rn closing notes patient in bed, hob elevated, obtunded but can open eyes. tele on sr 78 , on vent, monitoring for any s/s of sob or distress. gtube running at 30ml per hour no residual.bs check at 135 with no coverage. hd in am. gave report to am rn for belinda. will continue to monitor.
--- NOTE | 2016-11-10 07:11 | NUR ---
RT PT RECEIVED TRACHED WITH A PORTEX 7 ON THE VENT WITH NOTED SETTINGS. PT IS AWAKE BUT DOES NOT FOLLOW COMMANDS. VENT ALARMS ARE SET AND AUDIBLE WITH BVM BY BEDSIDE. ZIGZAG TOPSTITCHER CUFF PRESSURE NOTED. VENT IS PLUGGED INTO RED OUTLET. NO RESPIRATORY DISTRESS NOTED AT THIS TIME, WILL CONTINUE TO MONITOR. Addendum: 11/10/16 at 0829 by TITO WADDELL RT Amended: Links added.
[2016-11-10 08:00] VITALS: BP 138/84
[2016-11-10] MEDS: LEVETIRACETAM SOL (5 ML) 100 MG/ML UDC GT SCH ×2 (08:56→21:31)
[2016-11-10] MEDS: ZINC SULFATE 220 MG CAPSULE GT SCH (08:57)
[2016-11-10] MEDS: AMLODIPINE BESYLATE 5 MG TABLET GT SCH ×2 (08:57→21:31)
[2016-11-10] MEDS: VIT B CMPLX 3/FA/VIT C/BIOTIN 1 TAB TABLET PO SCH (08:57)
[2016-11-10] MEDS: ACETAMINOPHEN 650 MG/20.3 ML UDC GT SCH (08:57)
[2016-11-10] MEDS: PANTOPRAZOLE 40 MG/PACK PACK GT SCH ×2 (08:57→21:31)
[2016-11-10] MEDS: CHOLESTYRAMINE/ASPARTAME 4 G/PKT PACKET PO SCH ×2 (08:57→21:31)
[2016-11-10] MEDS: ASCORBIC ACID SYRUP 500 MG/5 ML UDC GT SCH (08:57)
[2016-11-10] MEDS: LOSARTAN POTASSIUM 50 MG TABLET PO SCH ×2 (08:57→21:31)
[2016-11-10] MEDS: PROSOURCE / PROSTAT (PYXIS) 30 ML UDC GT SCH (08:57)
[2016-11-10] MEDS: FERROUS SULFATE UDC 300 MG/5 ML UDC GT SCH (08:57)
[2016-11-10] MEDS: HYDROGEL DRESSING 90 GM TUBE TP SCH (09:00)
[2016-11-10] MEDS: INSULIN DETEMIR 100 UNIT/ML CARTRIDGE SQ SCH (11:11)
[2016-11-10 12:00] VITALS: BP 111/75
[2016-11-10] MEDS: ONDANSETRON HCL 4 MG/5 ML SOLUTION GT PRN (15:06)
[2016-11-10 16:00] VITALS: BP 113/85
--- NOTE | 2016-11-10 19:35 | NUR ---
RN NOTES PT IS OBTUNDED RESPONSIVE TO TACTILE STIMULI WITH TRACH CONNECTED TO VENT WITH SETTING AC 12 TV 550 FIO2 35% PEEP 5 SATING 99%. BILATERAL BREATH SOUND DIMINISHED. TELE MONITOR REVEALS SR HR 75. WITH GTF NOVASOURCE @ 30 CC/HR PATENCY CHECKED WITH ZERO RESIDUAL . IV SITE ON RIGHT FOREARM G 20 SL AND RIGHT FEMORAL HD CATH INTACT AND PATENT WITH CLEANED DRESSING. OFFLOADED EXT WITH PILLOWS. KEPT PT CLEAN AND COMFORTABLE IN BED. WILL CONTINUE TO MONITOR.
[2016-11-10 20:00] VITALS: BP 130/44
[2016-11-11] VITALS (7 sets, daily range): BP systolic 116–134; BP diastolic 40–69
[2016-11-11] MEDS: hydrALAZINE HCL 25 MG TABLET GT SCH ×4 (00:36→17:22)
[2016-11-11] MEDS: METOCLOPRAMIDE HCL 10 MG TABLET GT SCH ×4 (00:37→17:22)
[2016-11-11] MEDS: BLOOD SUGAR DIAGNOSTIC 1 EACH STRIP IN SCH ×4 (00:37→17:35)
[2016-11-11] MEDS: ALBUTEROL FS 2.5 MG/0.5 ML VIAL.NEB IH SCH ×4 (01:14→19:41)
[2016-11-11] MEDS: IPRATROPIUM NEB FS 0.5 MG/2.5 ML AMPUL.NEB IH SCH ×4 (01:14→19:41)
[2016-11-11] MEDS: RENAL NOVASOURCE 1,000 ML BOTTLE GT PRN (06:02)
--- NOTE | 2016-11-11 06:59 | NUR ---
RN NOTES PT REMAINED IN STABLE CONDITION THROUGHOUT THE SHIFT. NO ACUTE RESP DISTRESS. TRACH AND VENT SETTING TOLERATED WELL. AFEBRILE. VS CONTROLLED. NO N/V/D SHOWS. GTF TOLERATED WELL. NO SIGNIFICANT CHANGES NOTED. KEPT CLEANED AND COMFORTABLE IN BED. WILL ENDORSED CONTINUITY OF CARE TO AM NURSE
[2016-11-11] MEDS: ACETYLCYSTEINE 20% SOLN 800 MG/4 ML VIAL NEB SCH ×3 (07:07→23:22)
[2016-11-11] MEDS: PANTOPRAZOLE 40 MG/PACK PACK GT SCH ×2 (08:58→21:35)
[2016-11-11] MEDS: LEVETIRACETAM SOL (5 ML) 100 MG/ML UDC GT SCH ×2 (08:59→21:35)
[2016-11-11] MEDS: CHOLESTYRAMINE/ASPARTAME 4 G/PKT PACKET PO SCH ×2 (08:59→21:35)
[2016-11-11] MEDS: ASCORBIC ACID SYRUP 500 MG/5 ML UDC GT SCH (08:59)
[2016-11-11] MEDS: ACETAMINOPHEN 650 MG/20.3 ML UDC GT SCH (08:59)
[2016-11-11] MEDS: FERROUS SULFATE UDC 300 MG/5 ML UDC GT SCH (09:01)
[2016-11-11] MEDS: LOSARTAN POTASSIUM 50 MG TABLET PO SCH ×2 (09:01→21:35)
[2016-11-11] MEDS: VIT B CMPLX 3/FA/VIT C/BIOTIN 1 TAB TABLET PO SCH (09:01)
[2016-11-11] MEDS: ZINC SULFATE 220 MG CAPSULE GT SCH (09:01)
[2016-11-11] MEDS: AMLODIPINE BESYLATE 5 MG TABLET GT SCH ×2 (09:02→21:39)
[2016-11-11] MEDS: PROSOURCE / PROSTAT (PYXIS) 30 ML UDC GT SCH (09:07)
[2016-11-11] MEDS: INSULIN DETEMIR 100 UNIT/ML CARTRIDGE SQ SCH (09:17)
[2016-11-11] MEDS: HYDROGEL DRESSING 90 GM TUBE TP SCH (09:20)
--- NOTE | 2016-11-11 11:22 | NUR ---
INITIAL NURSING NOTE RECEIVED PATIENT IN BED, OBTUNDED, WITH NO DISTRESS OR PAIN COMFORTABLY SLEEPING INTERMITTENTLY. PT ON MECH VENT VIA TRACH WITH SETTINGS ORDERED BY MD. 02 SATURATION AT 100%. SR ON TELE. HAS PEG PATENT AND FLUSHED. NOVASOURCE 30CC/HR INFUSING WITH NO PROBELSM/BLOCKS. NO RESIDUAL. PATIENT HAD DIALYSIS VIA R FEMORAL HD CATH WHICH IS INTACT. RFA 20G PATENT AND FLUSHED WELL. PROVIDED SAFETY AND COMFORT MEASURES AND WILL CONTINUE TO MONITOR THE PATIENT FOR ANY ISSUES.
--- NOTE | 2016-11-11 11:28 | NUR ---
DIALYSIS COMPLETED WITH 1.5L TAKEN OUT. LAST BP WAS 118/68
[2016-11-11] MEDS: INSULIN REGULAR, HUMAN 100 UNIT/ML 3 ML VIAL SQ PRN (12:09)
--- NOTE | 2016-11-11 19:03 | NUR ---
RN CLOSING NOTE ALL MEDICATIONS WERE ADMINISTERED ORDERED. PT IS COMFORTABLE AND CLEAN IN BED WITH COOLING MEASURES IN PLACE. WOUND CARE WAS DONE ORDERED. PT WAS MONITORED THROUGHOUT THE SHIFT WITH NO ISSUES ARISING. ISOLATION PRECAUTIONS CARRIED OUT. DIALYSIS WAS DONE DURING AM SHIFT WITH 1.5L TAKEN OUT. WILL GIVE REPORT TO PM RN.
--- NOTE | 2016-11-11 20:00 | NUR ---
TELE 1 RN NOTE PT IN BED OBTUNDED. EYES OPEN. ON VENT/TRACH, TOLERATING THE SETTINGS WELL. NO DISTRESS OR DISCOMFORT NOTED. NO S/S OF PAIN NOTED. GTF NOVASOURCE INFUSING WELL AT 30 ML/HR, 0 ML RESIDUAL NOTED. RFA WITH SL #20 G INTACT AND PATENT. RT FEMORAL HD CATH INTACT. REPOSITION HER Q2H. KEPT HER DRY AND CLEAN. VSS. SIDE RAILS UP X 3 AND CALL LIGHT WITHIN REACH. CONTINUE TO MONITOR HER. Addendum: 11/11/16 at 2106 by ROBY VILLARREAL RN ON TELE SR HR 82.
[2016-11-11] MEDS: FAMOTIDINE (20 MG) 20 MG TABLET GT SCH (21:35)
[2016-11-12] VITALS (7 sets, daily range): BP systolic 115–130; BP diastolic 55–75
[2016-11-12] MEDS: BLOOD SUGAR DIAGNOSTIC 1 EACH STRIP IN SCH ×4 (00:34→18:11)
[2016-11-12] MEDS: METOCLOPRAMIDE HCL 10 MG TABLET GT SCH ×4 (00:35→18:13)
[2016-11-12] MEDS: hydrALAZINE HCL 25 MG TABLET GT SCH ×4 (00:37→18:13)
[2016-11-12] MEDS: ALBUTEROL FS 2.5 MG/0.5 ML VIAL.NEB IH SCH ×4 (01:09→19:42)
[2016-11-12] MEDS: IPRATROPIUM NEB FS 0.5 MG/2.5 ML AMPUL.NEB IH SCH ×4 (01:09→19:42)
[2016-11-12] MEDS: RENAL NOVASOURCE 1,000 ML BOTTLE GT PRN (05:58)
--- NOTE | 2016-11-12 06:20 | NUR ---
TELE 1 RN NOTE PT IN BED OBTUNDED. EYES OPEN. PT REMAIN STABLE DURING THE SHIFT. SUCTIONED HER FREQUENTLY WHITISH THICK SECRETIONS NOTED. ON VENT/TRACH, TOLERATING THE SETTINGS WELL. NO DISTRESS OR DISCOMFORT NOTED. NO S/S OF PAIN NOTED. GTF NOVASOURCE INFUSING WELL AT 30 ML/HR, 0 ML RESIDUAL NOTED. RFA WITH SL #20 G INTACT AND PATENT. RT FEMORAL HD CATH INTACT. REPOSITION HER Q2H DURING THE SHIFT. KEPT HER DRY AND CLEAN. VSS. SIDE RAILS UP X 3 AND CALL LIGHT WITHIN REACH. WILL ENDORSE TO DAY SHIFT NURSE FOR CONTINUE TO CARE. Addendum: 11/12/16 at 0622 by ROBY VILLARREAL RN ON TELE SR HR 83
[2016-11-12] MEDS: ACETYLCYSTEINE 20% SOLN 800 MG/4 ML VIAL NEB SCH ×3 (07:20→23:24)
[2016-11-12] MEDS: FERROUS SULFATE UDC 300 MG/5 ML UDC GT SCH (09:21)
[2016-11-12] MEDS: SCOPOLAMINE HBR 1 EA PATCH.TD72 TD SCH (09:21)
[2016-11-12] MEDS: LEVETIRACETAM SOL (5 ML) 100 MG/ML UDC GT SCH ×2 (09:21→21:44)
[2016-11-12] MEDS: ASCORBIC ACID SYRUP 500 MG/5 ML UDC GT SCH (09:21)
[2016-11-12] MEDS: PANTOPRAZOLE 40 MG/PACK PACK GT SCH ×2 (09:22→21:44)
[2016-11-12] MEDS: ZINC SULFATE 220 MG CAPSULE GT SCH (09:22)
[2016-11-12] MEDS: CHOLESTYRAMINE/ASPARTAME 4 G/PKT PACKET PO SCH ×2 (09:22→21:44)
[2016-11-12] MEDS: VIT B CMPLX 3/FA/VIT C/BIOTIN 1 TAB TABLET PO SCH (09:22)
[2016-11-12] MEDS: AMLODIPINE BESYLATE 5 MG TABLET GT SCH ×2 (09:22→21:45)
[2016-11-12] MEDS: LOSARTAN POTASSIUM 50 MG TABLET PO SCH ×2 (09:22→21:45)
[2016-11-12] MEDS: HYDROGEL DRESSING 90 GM TUBE TP SCH (09:23)
[2016-11-12] MEDS: INSULIN DETEMIR 100 UNIT/ML CARTRIDGE SQ SCH (09:28)
[2016-11-12] MEDS: ACETAMINOPHEN 650 MG/20.3 ML UDC GT SCH (09:34)
[2016-11-12] MEDS: PROSOURCE / PROSTAT (PYXIS) 30 ML UDC GT SCH (09:35)
--- NOTE | 2016-11-12 19:20 | NUR ---
RN NOTES PT IS OBTUNDED RESPONSIVE TO TACTILE STIMULI WITH TRACH CONNECTED TO VENT WITH SETTING AC 12 TV 550 FIO2 35% PEEP 5 SATING 99%. BILATERAL BREATH SOUND DIMINISHED. DAUGHTER AT BEDSIDE EXPLAINED PLAN OF CARE. TELE MONITOR REVEALS SR HR 86. WITH GTF NOVASOURCE @ 30 CC/HR PATENCY CHECKED WITH ZERO RESIDUAL . IV SITE ON RIGHT FOREARM G 20 SL AND RIGHT FEMORAL HD CATH INTACT AND PATENT WITH CLEANED DRESSING. OFFLOADED EXT WITH PILLOWS. KEPT PT CLEAN AND COMFORTABLE IN BED. WILL CONTINUE TO MONITOR.
[2016-11-13] VITALS: BP 129/67
[2016-11-13] MEDS: hydrALAZINE HCL 25 MG TABLET GT SCH ×4 (00:04→17:12)
[2016-11-13] MEDS: METOCLOPRAMIDE HCL 10 MG TABLET GT SCH ×4 (00:04→17:11)
[2016-11-13] MEDS: BLOOD SUGAR DIAGNOSTIC 1 EACH STRIP IN SCH ×4 (00:06→17:12)
[2016-11-13] MEDS: IPRATROPIUM NEB FS 0.5 MG/2.5 ML AMPUL.NEB IH SCH ×4 (01:27→19:35)
[2016-11-13] MEDS: ALBUTEROL FS 2.5 MG/0.5 ML VIAL.NEB IH SCH ×4 (01:27→19:35)
[2016-11-13 04:00] VITALS: BP 130/60
[2016-11-13] MEDS: INSULIN REGULAR, HUMAN 100 UNIT/ML 3 ML VIAL SQ PRN ×2 (06:29→12:14)
--- NOTE | 2016-11-13 07:05 | NUR ---
RN NOTES PT ASLEEP WELL ON BED. NO ACUTE RESP DISTRESS. AFEBRILE. TRACH AND VENT SETTING TOLERATED WELL. SATING WELL REMAINED SR HR 80'S ON TELE MONITOR. NO SIGNIFICANT CHANGES NOTED. INCONTINENT CARE RENDERED. KEPT PT CLEAN AND COMFORTABLE ON BED. WILL ENDORSED CONTINUITY OF CARE TO AM NURSE.
--- NOTE | 2016-11-13 07:20 | NUR ---
RN INITIAL NOTE REPORT RECEIVED FROM LEONEL SKELTON NURSE FOR SHERRY. PT TELE SR 81. A/O OPENS EYES NON VERBAL. VENT SETTING PORTEX 7 AC 12 TV 550 FI02 35% PEEP 5. IV RFA #20 G FLUSHED PATENT AND INTACT. HD TODAY. ALL SAFETY MEASURES IN PLACE. WILL CONTINUE TO MONITOR.
[2016-11-13] MEDS: ACETYLCYSTEINE 20% SOLN 800 MG/4 ML VIAL NEB SCH ×2 (07:27→14:30)
--- NOTE | 2016-11-13 07:27 | NUR ---
RT PT RECEIVED TRACHED ON THE VENT WITH NOTED SETTINGS. PT IS AWAKE AND RESPONDS TO STIMULI. VENT ALARMS ARE SET AND AUDIBLE WITH BVM BY BEDSIDE. NEUROSURGICAL PHYSICIAN ASSISTANT CUFF PRESSURE NOTED. VENT IS PLUGGED INTO RED OUTLET. NO RESPIRATORY DISTRESS NOTED AT THIS TIME, WILL CONTINUE TO MONITOR. Addendum: 11/13/16 at 1148 by TITO WADDELL RT Amended: Links added.
[2016-11-13 08:00] VITALS: BP 133/52
[2016-11-13] MEDS: ZINC SULFATE 220 MG CAPSULE GT SCH (08:41)
[2016-11-13] MEDS: CHOLESTYRAMINE/ASPARTAME 4 G/PKT PACKET PO SCH ×2 (08:47→21:24)
[2016-11-13] MEDS: LEVETIRACETAM SOL (5 ML) 100 MG/ML UDC GT SCH ×2 (08:48→21:23)
[2016-11-13] MEDS: FERROUS SULFATE UDC 300 MG/5 ML UDC GT SCH (08:48)
[2016-11-13] MEDS: ACETAMINOPHEN 650 MG/20.3 ML UDC GT SCH (08:48)
[2016-11-13] MEDS: ASCORBIC ACID SYRUP 500 MG/5 ML UDC GT SCH (08:48)
[2016-11-13] MEDS: LOSARTAN POTASSIUM 50 MG TABLET PO SCH ×2 (08:48→21:23)
[2016-11-13] MEDS: PROSOURCE / PROSTAT (PYXIS) 30 ML UDC GT SCH (08:48)
[2016-11-13] MEDS: VIT B CMPLX 3/FA/VIT C/BIOTIN 1 TAB TABLET PO SCH (08:49)
[2016-11-13] MEDS: PANTOPRAZOLE 40 MG/PACK PACK GT SCH ×2 (08:49→21:23)
[2016-11-13] MEDS: AMLODIPINE BESYLATE 5 MG TABLET GT SCH ×2 (08:49→21:24)
[2016-11-13] MEDS: HYDROGEL DRESSING 90 GM TUBE TP SCH (08:50)
[2016-11-13] MEDS: INSULIN DETEMIR 100 UNIT/ML CARTRIDGE SQ SCH (08:57)
[2016-11-13] MEDS ORDERED: IVERMECTIN 3 MG TABLET PO ONE (09:00)
[2016-11-13 12:00] VITALS: BP 118/52
--- NOTE | 2016-11-13 12:16 | NUR ---
RN NOTE B/P MEDICATION NOT ADMINISTERED PT RECEIVING DIALYSIS.
[2016-11-13 16:00] VITALS: BP 133/52
--- NOTE | 2016-11-13 19:37 | NUR ---
RN CLOSING NOTE REPORT GIVEN TO WHITLEY SKELTON NURSE FOR SHERRY. PT TELE SR THROUGH OUT SHIFT. A/O OPENS EYES NON VERBAL. VENT SETTING PORTEX 7 AC 12 TV 550 FI02 35% PEEP 5. IV RFA #20 G INTACT TODAY. HD 1 L REMOVED. GTF NOVASOURCE 30 ML/HR THROUGH OUT SHIFT NO RESIDUAL. ALL SAFETY MEASURES IN PLACE. ALL ORDERS CARRIED OUT.
[2016-11-13 20:00] VITALS: BP 105/52
--- NOTE | 2016-11-13 20:05 | NUR ---
RN INITIAL NOTE; PT ON THE BED RESTING WITHOUT ANY DISTRESS. [facility], SETTING ORDERED . PT IS NON VERBAL , OPENS EYES. TELE SHOWING SR WITH HR 81 . RFA PERIPHERAL IV 20G INTACT AND PATENT. R FEMORAL HD CATH INTACT . G TUBE INTACT AND PATENT WITH CONTINUE NOVASOURCE @ 30 ML/HR. NO RESIDUAL NOTED, WILL APPLY ASPIRATION PRECAUTION. BED IN THE LOWEST/LOCKED POSITION , SAFETY MEASURES APPLIED . WILL TURN AND REPOSITION Q2H .WILL CONTINUE TO MONITOR .
[2016-11-13] MEDS: FAMOTIDINE (20 MG) 20 MG TABLET GT SCH (21:23)
[2016-11-14] VITALS (7 sets, daily range): BP systolic 103–134; BP diastolic 41–68
[2016-11-14] MEDS: METOCLOPRAMIDE HCL 10 MG TABLET GT SCH ×4 (00:42→17:10)
[2016-11-14] MEDS: BLOOD SUGAR DIAGNOSTIC 1 EACH STRIP IN SCH ×4 (00:42→17:11)
[2016-11-14] MEDS: RENAL NOVASOURCE 1,000 ML BOTTLE GT PRN (00:45)
[2016-11-14] MEDS: IPRATROPIUM NEB FS 0.5 MG/2.5 ML AMPUL.NEB IH SCH ×4 (01:22→20:05)
[2016-11-14] MEDS: ALBUTEROL FS 2.5 MG/0.5 ML VIAL.NEB IH SCH ×4 (01:22→20:05)
[2016-11-14] MEDS: ACETYLCYSTEINE 20% SOLN 800 MG/4 ML VIAL NEB SCH ×3 (01:23→13:09)
[2016-11-14] MEDS: hydrALAZINE HCL 25 MG TABLET GT SCH ×4 (06:01→17:10)
[2016-11-14] MEDS: INSULIN REGULAR, HUMAN 100 UNIT/ML 3 ML VIAL SQ PRN (06:09)
--- NOTE | 2016-11-14 06:41 | NUR ---
RT PT RECEIVED ON [facility] VENT WITH NOTED SETTING. VENT PLUGGED IN TO RED OUTLET. ALARM SET AND AUDIBLE. . SX SMALL AMOUNT OF THIN GREEN SECRETIONS. NO SOB OR RESP DISTRESS NOTED ON SHIFT. C CONTINUE CURRENT CARE PLAN AND MONITOR FOR ANY CHANGES. Addendum: 11/14/16 at 0642 by YOSELIN NETTLES RT Amended: Links added.
--- NOTE | 2016-11-14 07:20 | NUR ---
RN INITIAL NOTE REPORT RECEIVED FROM WHITLEY SKELTON NURSE FOR SHERRY. PT TELE SR . A/O OPENS EYES NON VERBAL. VENT SETTING PORTEX 7 AC 12 TV 550 FI02 35% PEEP 5. IV RFA #20 G FLUSHED PATENT AND INTACT. PT VOMITED WHILE IN ROOM . GTF HELD, ZOFRAN WILL BE GIVEN AND HOB UP. ALL SAFETY MEASURES IN PLACE. WILL CONTINUE TO MONITOR.
--- NOTE | 2016-11-14 07:21 | NUR ---
RN EOS NOTE; NO ANY DISTRESS NOTED DURING THE SHIFT. REMAINED SR ON TELE MONITOR . IV SITE AND INTACT AND PATENT . G TUBE FEEDING TOLERATED WELL. NO RESIDUAL NOTED. ASPIRATION PRECAUTION APPLIED. ALL NEEDS ATTENDED PROMPTLY. TOTAL CARE RENDERED . ENDORSED TO NEXT SHIFT RN FOR CONTINUITY OF CARE.
--- NOTE | 2016-11-14 07:31 | NUR ---
RT PATIENT REC'D TRACHED ON [facility] VENT WITH SETTINGS SET BY MD BERE THOMAS. VENT ALARMS CHECKED + AUDIBLE. VENT PLUGGED INTO RED OUTLET. TRACH SECURE + IN PROPER POSITION. COARSE BILAT B/S HEARD. SX'D WITH SMALL AMT PALE SEMI-THICK SECRETIONS. PATIENT APPEARS COMFORTABLE AND IN NO DISTRESS AT THIS TIME. AMBU BAG AT HOB. CONT CURRENT PLAN OF RESP CARE. Addendum: 11/14/16 at 0908 by DANELLE MORTENSEN RT Amended: Links added.
[2016-11-14] MEDS: VIT B CMPLX 3/FA/VIT C/BIOTIN 1 TAB TABLET PO SCH (08:49)
[2016-11-14] MEDS: PROSOURCE / PROSTAT (PYXIS) 30 ML UDC GT SCH (08:49)
[2016-11-14] MEDS: ZINC SULFATE 220 MG CAPSULE GT SCH (08:49)
[2016-11-14] MEDS: ONDANSETRON HCL 4 MG/5 ML SOLUTION GT PRN (08:49)
[2016-11-14] MEDS: ACETAMINOPHEN 650 MG/20.3 ML UDC GT SCH (08:49)
[2016-11-14] MEDS: CHOLESTYRAMINE/ASPARTAME 4 G/PKT PACKET PO SCH ×2 (08:50→21:26)
[2016-11-14] MEDS: FERROUS SULFATE UDC 300 MG/5 ML UDC GT SCH (08:50)
[2016-11-14] MEDS: LEVETIRACETAM SOL (5 ML) 100 MG/ML UDC GT SCH ×2 (08:50→21:26)
[2016-11-14] MEDS: PANTOPRAZOLE 40 MG/PACK PACK GT SCH ×2 (08:51→21:26)
[2016-11-14] MEDS: HYDROGEL DRESSING 90 GM TUBE TP SCH (08:51)
[2016-11-14] MEDS: ASCORBIC ACID SYRUP 500 MG/5 ML UDC GT SCH (08:51)
[2016-11-14] MEDS: AMLODIPINE BESYLATE 5 MG TABLET GT SCH ×2 (08:53→21:26)
[2016-11-14] MEDS: LOSARTAN POTASSIUM 50 MG TABLET PO SCH ×2 (08:53→21:26)
[2016-11-14] MEDS: INSULIN DETEMIR 100 UNIT/ML CARTRIDGE SQ SCH (08:54)
[2016-11-14] MEDS ORDERED: IVERMECTIN 3 MG TABLET PO ONE (09:00)
--- NOTE | 2016-11-14 19:15 | NUR ---
spoke with Casey - nursing rose grading supervisor at the [facility] at [facility] [phone] who confirmed patient has been approved to return and accepted to room# 17A.Spoke with daughter Sharri [phone] agreed with dc plan. Ambulance arranged for pickle solution maker 9pm Addendum: 11/14/16 at 1915 by BARNEY BALBUENA RN Amended: Links added.
--- NOTE | 2016-11-14 19:20 | NUR ---
RN INITIAL NOTES RECEIVED REPORT FROM MORNING SHIFT. PATIENT ABLE TO OPEN EYES SPONTANEOUSLY, NONVERBAL, NO ACUTE SIGNS OF PAIN AND DISCOMFORT. ON MECH VENT VIA TRACH, TOLERATING WELL, AIRWAY SUCTIONED AND OBTAINED MODERATE AMOUNT OF THICK YELLOW SPUTUM. AIRWAY KEPT CLEAR AND PATENT. SR ON TELE AT 93. WITH GTF, INFUSING WELL, NO GASTRIC RESIDUAL NOTED. HOB ELEVATED. PATIENT TURNED AND REPOSITIONED, SAFETY AND COMFORT ENSURED. BED IN LOW AND LOCKED POSITION. PATIENT FOR DISCHARGE TO SNF, WILL PREPARE PATIENT'S D/C PAPERS ACCORDINGLY. WILL MONITOR.
--- NOTE | 2016-11-14 19:36 | NUR ---
RN CLOSING NOTE REPORT GIVEN TO BENJAMIN SKELTON NURSE FOR [facility]. PT TELE SR THROUGH OUT SHIFT. A/O OPENS EYES NON VERBAL. VENT SETTING PORTEX 7 AC 12 TV 550 FI02 35% PEEP 5. IV RFA #20 G INTACT. GTF NOVASOURCE 30 ML/HR THROUGH OUT SHIFT NO RESIDUAL. ALL SAFETY MEASURES IN PLACE. ALL ORDERS CARRIED OUT.
--- NOTE | 2016-11-14 20:00 | NUR ---
RN NOTES PATIENT FOR DISCHARGE BACK TO SNF ENDORSED. D/C PAPERS PREPARED AND PLACED IN CHART. PICTURES TAKEN AND FILED IN CHART. PATIENT WITH NO BELONGINGS. PATIENT PROVIDED WITH BED BATH, WOUND CARE RENDERED ORDERED. TRACH CARE DONE. SAFETY AND COMFORT ENSURED. BED IN LOW AND LOCKED POSITION. WILL MONITOR.
--- NOTE | 2016-11-14 22:15 | NUR ---
RN NOTES REPORT GIVEN TO loading unit tool setter AND NURSE AT BEDSIDE. PATIENT IS AT STABLE CONDITION. NO DISTRESS. SUCTIONED AIRWAY AND KEPT PATENT. GT FLUSHED AND CLAMPED. PIV ON R FOREARM REMOVED, PRESSURE DRESSING APPLIED. CALLED AND GAVE REPORT AT [facility], REPORT GIVEN TO CHRISSY. PATIENT'S CARE ENDORSED ACCORDINGLY. LEFT UNIT IN A STABLE CONDITION.
[2016-11-20] MEDS ORDERED: IVERMECTIN 3 MG TABLET PO ONE (09:00)
== END 2016-11-14 22:33 | DRG 579 ==
LOC: ER 16:33 → TELE1 18:52 → TELE-TD 19:15 → TELE1 10-27 10:47
PROVIDERS: ADMIT Internal Medicine; ATTEND Internal Medicine
PROC: 5A1955Z Respiratory Ventilation, Greater than 96 Consecutive Hours (ICD-10-PCS; principal; 2016-10-24)
PROC: 5A1D60Z (ICD-10-PCS; 2016-10-26)
PROC: 0KBP0ZZ Excision of Left Hip Muscle, Open Approach (ICD-10-PCS; 2016-10-27)
PROC: 0KBN0ZZ Excision of Right Hip Muscle, Open Approach (ICD-10-PCS; 2016-10-27)
DX: B86 Scabies (principal); L89.154 Pressure ulcer of sacral region, stage 4; N18.6 End stage renal disease; G93.40 Encephalopathy, unspecified; J96.10 Chronic respiratory failure, unspecified whether with hypoxia or hypercapnia; Z99.11 Dependence on respirator [ventilator] status; I12.0 Hypertensive chronic kidney disease with stage 5 chronic kidney disease or end stage renal disease; G93.1 Anoxic brain damage, not elsewhere classified; E11.22 Type 2 diabetes mellitus with diabetic chronic kidney disease; Z93.0 Tracheostomy status; Z93.1 Gastrostomy status; Z99.2 Dependence on renal dialysis; E78.5 Hyperlipidemia, unspecified; I25.10 Atherosclerotic heart disease of native coronary artery without angina pectoris; K21.9 Gastro-esophageal reflux disease without esophagitis; L98.8 Other specified disorders of the skin and subcutaneous tissue; D63.8 Anemia in other chronic diseases classified elsewhere; E83.39 Other disorders of phosphorus metabolism; R74.8 Abnormal levels of other serum enzymes; H10.9 Unspecified conjunctivitis; F09 Unspecified mental disorder due to known physiological condition; E11.9 Type 2 diabetes mellitus without complications; R13.10 Dysphagia, unspecified; Z78.9 Other specified health status; G40.909 Epilepsy, unspecified, not intractable, without status epilepticus
CPT/HCPCS: 31720; 36415; 71010-TC; 80048-TC; 82962-TC; 83735-TC; 84100-TC; 85025-TC; 85730-TC; 87081-TC; 90935-TC; 94002-TC; 94003-TC; 94760-TC; 94761-TC; 94762-TC; A4606; A4623; A6248; A6253; A6403; A7526; A9563; J1815; J1953; J3490; J7060; J8597; Q0162; Z7610

== ENCOUNTER 2016-11-19 20:05 | Inpatient (IN) | payer MEDICARE, MEDICAID ==
[~2016-11-19] VITALS: Ht 167.6 cm; Wt 59.4 kg
[2016-11-19] VITALS: BP 133/71
[~2016-11-19 20:05] MED LIST changes: +AMIN30LI4 GT; +TOBR5DRO12 LEFTEYE
[2016-11-19 20:18] VITALS: BP 107/63
[2016-11-19 20:35] LABS: BASOPHILS % (AUTO) 0.2 % (0.0-2.0); EOSINOPHILS # (AUTO) 1.2 /CMM (0.0-0.7); EOSINOPHILS % (AUTO) 6.9 % (0.0-6.0); HEMATOCRIT 22 % (33-45); HEMOGLOBIN 7.3 g/dL (11.5-14.8); LYMPHOCYTES # (AUTO) 1.1 /CMM (0.8-4.8); LYMPHOCYTES % (AUTO) 6.3 % (20.0-44.0); MEAN CORPUSCULAR HEMOGLOBIN 32 PG (26.0-33.0); MEAN CORPUSCULAR HGB CONC 33 g/dl (31.0-36.0); MEAN CORPUSCULAR VOLUME 96 fL (82-100); MONOCYTES # (AUTO) 1.2 /CMM (0.1-1.30); MONOCYTES % (AUTO) 7.1 % (2.0-12.0); NEUTROPHILS # (AUTO) 13.4 /CMM (1.8-8.9); NEUTROPHILS % (AUTO) 79.5 % (43.0-81.0); PLATELET COUNT (AUTO) 400 /CMM (150-450); RDW COEFFICIENT OF VARIATION 15.1 (11.5-15.0); WHITE BLOOD COUNT (AUTO) 16.9 K/uL (4.3-11.0)
[2016-11-19 20:46] LABS: CALCIUM, SERUM 8.3 mg/dL (8.5-10.1); CREATININE 3.7 mg/dL (0.6-1.3); POTASSIUM 3.1 mmol/L (3.5-5.1)
[2016-11-19 20:50] LABS: INR 0.98 (0.87-1.13); PROTHROMBIN TIME 10.2 SECS (9.5-12.7)
[2016-11-19 21:47] VITALS: BP 105/45
[2016-11-19] MEDS ORDERED: CEFEPIME 1 GM VIAL ONE (21:59)
[2016-11-19] MEDS ORDERED: IV D5W 50 ML IV ONE (21:59)
[2016-11-19] MEDS ORDERED: IV SET PRIMARY PUMP SET 1 EA INFUS.SET MC ONE ×2 (21:59→23:09)
[2016-11-19] MEDS ORDERED: VANCOMYCIN 1 GM in IV D5W 250 ML IV ONE (22:00)
[2016-11-19] MEDS ORDERED: CEFEPIME 1 GM in IV D5W 50 ML IV ONE (22:00)
[2016-11-19] MEDS ORDERED: POTASSIUM CHLORIDE 10 MEQ/50 ML PREMIXED IVPB FOR PERIPHERAL LINE IV ONE (22:00)
[2016-11-19] MEDS ORDERED: VANCOMYCIN 1 GM VIAL ONE (22:58)
[2016-11-19] MEDS ORDERED: POTASSIUM CL. PREMIX PERIPHER. 50 ML ONE (23:00)
[2016-11-19] MEDS ORDERED: RENAL NOVASOURCE 1,000 ML BOTTLE GT PRN (23:00)
[2016-11-19] MEDS ORDERED: DEXTROSE 50%-WATER 50 ML DISP.SYRIN IV PRN (23:00)
[2016-11-19] MEDS ORDERED: ACETAMINOPHEN 650 MG/20.3 ML UDC NG PRN (23:00)
[2016-11-19] MEDS ORDERED: IV NS 0.9% 250 ML IV ONE (23:01)
[2016-11-19] MEDS ORDERED: IV D5W 250 ML IV ONE (23:08)
[2016-11-19] MEDS ORDERED: SECONDARY IV SET 1 EA INFUS.SET MC ONE ×2 (23:12→23:23)
[2016-11-19] MEDS ORDERED: ACETAMINOPHEN 325 MG TABLET ONE (23:23)
[2016-11-19] MEDS: IV NS 0.9% 250 ML IV PRN (23:35)
[2016-11-19] MEDS: BLOOD SUGAR DIAGNOSTIC 1 EACH STRIP IN SCH (23:44)
[2016-11-19] MEDS: INSULIN REGULAR, HUMAN 100 UNIT/ML 3 ML VIAL SQ PRN (23:47)
[2016-11-19 23:52] VITALS: BP 133/71
[2016-11-20] VITALS (12 sets, daily range): BP systolic 91–150; BP diastolic 41–71
[2016-11-20] MEDS ORDERED: IV NS 0.9% 250 ML IV ONE (00:46)
[2016-11-20] MEDS ORDERED: BLOOD IV SET 1 EA INFUS.SET MC ONE (00:47)
[2016-11-20] MEDS: BLOOD SUGAR DIAGNOSTIC 1 EACH STRIP IN SCH ×3 (06:12→17:13)
[2016-11-20] MEDS: INSULIN REGULAR, HUMAN 100 UNIT/ML 3 ML VIAL SQ PRN ×3 (06:13→17:16)
[2016-11-20 06:24] LABS: BASOPHILS # (AUTO) 0.1 /CMM (0.0-0.2); BASOPHILS % (AUTO) 0.6 % (0.0-2.0); EOSINOPHILS # (AUTO) 0.8 /CMM (0.0-0.7); EOSINOPHILS % (AUTO) 7.6 % (0.0-6.0); HEMATOCRIT 25 % (33-45); HEMOGLOBIN 8.6 g/dL (11.5-14.8); LYMPHOCYTES # (AUTO) 1.4 /CMM (0.8-4.8); LYMPHOCYTES % (AUTO) 13.4 % (20.0-44.0); MEAN CORPUSCULAR HEMOGLOBIN 32 PG (26.0-33.0); MEAN CORPUSCULAR HGB CONC 35 g/dl (31.0-36.0); MEAN CORPUSCULAR VOLUME 93 fL (82-100); MONOCYTES # (AUTO) 0.9 /CMM (0.1-1.30); MONOCYTES % (AUTO) 8.5 % (2.0-12.0); NEUTROPHILS # (AUTO) 7.5 /CMM (1.8-8.9); NEUTROPHILS % (AUTO) 69.9 % (43.0-81.0); PLATELET COUNT (AUTO) 338 /CMM (150-450); RDW COEFFICIENT OF VARIATION 15.3 (11.5-15.0); RED BLOOD CELL COUNT(AUTO) 2.68 MIL/uL (4.0-5.2); WHITE BLOOD COUNT (AUTO) 10.7 K/uL (4.3-11.0)
[2016-11-20] MEDS ORDERED: VANCOMYCIN 500 MG in IV D5W 100 ML IV PRN (07:30)
[2016-11-20] MEDS ORDERED: FEE PK DOSING 1 MIN EA MC ONE (07:31)
[2016-11-20 08:04] LABS: CALCIUM, SERUM 8.8 mg/dL (8.5-10.1); CREATININE 4.5 mg/dL (0.6-1.3); MAGNESIUM 2.2 mg/dL (1.8-2.4); POTASSIUM 4.2 mmol/L (3.5-5.1)
[2016-11-20] MEDS ORDERED: INSULIN REGULAR, HUMAN 100 UNIT/ML 3 ML VIAL SQ PRN (09:00)
[2016-11-20] MEDS ORDERED: RENAL NOVASOURCE 1,000 ML BOTTLE GT PRN (09:00)
[2016-11-20] MEDS: LOSARTAN POTASSIUM 50 MG TABLET PO SCH ×2 (09:00→21:00)
[2016-11-20] MEDS: AMLODIPINE BESYLATE 5 MG TABLET GT SCH ×2 (09:00→21:00)
[2016-11-20] MEDS: PROSOURCE / PROSTAT (PYXIS) 30 ML UDC GT SCH (09:00)
[2016-11-20] MEDS ORDERED: NEUTRA PHOS 1 POWD.PACKET PO ONE (12:00)
[2016-11-20] MEDS: hydrALAZINE HCL 25 MG TABLET GT SCH ×2 (12:00→17:11)
[2016-11-20] MEDS ORDERED: ONDANSETRON HCL 4 MG/5 ML SOLUTION GT PRN (12:00)
[2016-11-20] MEDS ORDERED: TOBRAMYCIN OPHTH 5ML 5 ML BOTTLE LEFTEYE SCH (12:00)
[2016-11-20] MEDS ORDERED: ACETAMINOPHEN 650 MG/20.3 ML UDC GT PRN (12:00)
[2016-11-20] MEDS: CHOLESTYRAMINE/ASPARTAME 4 G/PKT PACKET GT SCH ×2 (12:03→20:59)
[2016-11-20] MEDS: ZINC SULFATE 220 MG CAPSULE GT SCH (12:03)
[2016-11-20] MEDS: FAMOTIDINE (20 MG) 20 MG TABLET GT SCH (12:04)
[2016-11-20] MEDS: PANTOPRAZOLE 40 MG/PACK PACK GT SCH ×2 (12:04→20:59)
[2016-11-20] MEDS: LEVETIRACETAM SOL (5 ML) 100 MG/ML UDC GT SCH ×2 (12:04→20:59)
[2016-11-20] MEDS: SCOPOLAMINE HBR 1 EA PATCH.TD72 TD SCH (12:04)
[2016-11-20] MEDS: ACETAMINOPHEN 650 MG/20.3 ML UDC GT SCH (12:05)
[2016-11-20] MEDS: VIT B CMPLX 3/FA/VIT C/BIOTIN 1 TAB TABLET GT SCH (12:05)
[2016-11-20] MEDS: ASCORBIC ACID SYRUP 500 MG/5 ML UDC GT SCH (12:05)
[2016-11-20] MEDS: METOCLOPRAMIDE HCL 10 MG/10 ML UDC GT SCH ×2 (12:05→17:11)
[2016-11-20] MEDS: FERROUS SULFATE UDC 300 MG/5 ML UDC GT SCH (12:06)
[2016-11-20] MEDS: INSULIN DETEMIR 100 UNIT/ML CARTRIDGE SQ SCH (12:15)
[2016-11-20] MEDS: IPRATROPIUM NEB FS 0.5 MG/2.5 ML AMPUL.NEB NEB SCH ×3 (13:30→19:42)
[2016-11-20] MEDS: ALBUTEROL FS 2.5 MG/0.5 ML VIAL.NEB IH SCH ×2 (14:16→19:42)
[2016-11-20] MEDS: ACETYLCYSTEINE 20% SOLN 800 MG/4 ML VIAL NEB SCH (16:26)
[2016-11-20] MEDS ORDERED: CEFEPIME 1 GM in IV D5W 50 ML IV SCH (22:00)
[2016-11-20 22:50] LABS: RETICULOCYTE COUNT 5.2 % (0.6-2.5)
[2016-11-20 23:12] LABS: THYROID STIMULATING HORMONE 1.84 uIU/mL (0.358-3.74); URIC ACID 3.4 mg/dL (2.6-7.2)
[2016-11-21] VITALS (7 sets, daily range): BP systolic 110–151; BP diastolic 52–76
[2016-11-21] MEDS: METOCLOPRAMIDE HCL 10 MG/10 ML UDC GT SCH ×4 (00:31→17:21)
[2016-11-21] MEDS: BLOOD SUGAR DIAGNOSTIC 1 EACH STRIP IN SCH ×4 (00:31→18:54)
[2016-11-21] MEDS: hydrALAZINE HCL 25 MG TABLET GT SCH ×4 (00:31→17:20)
[2016-11-21] MEDS: INSULIN REGULAR, HUMAN 100 UNIT/ML 3 ML VIAL SQ PRN ×3 (00:39→12:19)
[2016-11-21] MEDS: ACETYLCYSTEINE 20% SOLN 800 MG/4 ML VIAL NEB SCH ×3 (01:19→15:43)
[2016-11-21] MEDS: IPRATROPIUM NEB FS 0.5 MG/2.5 ML AMPUL.NEB NEB SCH ×4 (01:19→19:36)
[2016-11-21] MEDS: ALBUTEROL FS 2.5 MG/0.5 ML VIAL.NEB IH SCH ×4 (01:19→19:36)
[2016-11-21] MEDS: RENAL NOVASOURCE 1,000 ML BOTTLE GT PRN (05:47)
[2016-11-21 07:58] LABS: BASOPHILS % (AUTO) 0.4 % (0.0-2.0); EOSINOPHILS % (AUTO) 10.2 % (0.0-6.0); HEMATOCRIT 23 % (33-45); HEMOGLOBIN 7.8 g/dL (11.5-14.8); LYMPHOCYTES # (AUTO) 1.6 /CMM (0.8-4.8); MEAN CORPUSCULAR HEMOGLOBIN 32 PG (26.0-33.0); MEAN CORPUSCULAR HGB CONC 35 g/dl (31.0-36.0); MEAN CORPUSCULAR VOLUME 94 fL (82-100); MONOCYTES # (AUTO) 0.8 /CMM (0.1-1.30); MONOCYTES % (AUTO) 8.9 % (2.0-12.0); NEUTROPHILS % (AUTO) 63.5 % (43.0-81.0); PLATELET COUNT (AUTO) 300 /CMM (150-450); RED BLOOD CELL COUNT(AUTO) 2.41 MIL/uL (4.0-5.2); WHITE BLOOD COUNT (AUTO) 9.5 K/uL (4.3-11.0)
[2016-11-21 08:16] LABS: CREATININE 5.9 mg/dL (0.6-1.3); MAGNESIUM 2.3 mg/dL (1.8-2.4); PHOSPHORUS 1.3 mg/dL (2.5-4.9)
[2016-11-21] MEDS: ACETAMINOPHEN 650 MG/20.3 ML UDC GT SCH (09:44)
[2016-11-21] MEDS: PROSOURCE / PROSTAT (PYXIS) 30 ML UDC GT SCH (09:44)
[2016-11-21] MEDS: LEVETIRACETAM SOL (5 ML) 100 MG/ML UDC GT SCH ×2 (09:44→21:30)
[2016-11-21] MEDS: ASCORBIC ACID SYRUP 500 MG/5 ML UDC GT SCH (09:44)
[2016-11-21] MEDS: FERROUS SULFATE UDC 300 MG/5 ML UDC GT SCH (09:44)
[2016-11-21] MEDS: CHOLESTYRAMINE/ASPARTAME 4 G/PKT PACKET GT SCH ×2 (09:44→21:30)
[2016-11-21] MEDS: AMLODIPINE BESYLATE 5 MG TABLET GT SCH ×2 (09:45→21:30)
[2016-11-21] MEDS: VIT B CMPLX 3/FA/VIT C/BIOTIN 1 TAB TABLET GT SCH (09:45)
[2016-11-21] MEDS: PANTOPRAZOLE 40 MG/PACK PACK GT SCH ×2 (09:45→21:30)
[2016-11-21] MEDS: ZINC SULFATE 220 MG CAPSULE GT SCH (09:45)
[2016-11-21] MEDS: INSULIN DETEMIR 100 UNIT/ML CARTRIDGE SQ SCH (09:46)
[2016-11-21] MEDS: LOSARTAN POTASSIUM 50 MG TABLET PO SCH ×2 (09:47→21:31)
[2016-11-21] MEDS ORDERED: Z GUARD REMEDY 2 OZ OINT TP PRN (10:00)
[2016-11-21] MEDS ORDERED: HYDROGEL DRESSING 90 GM TUBE TP PRN (10:00)
[2016-11-21] MEDS: Z GUARD REMEDY 2 OZ OINT TP SCH (12:16)
[2016-11-21] MEDS: HYDROGEL DRESSING 90 GM TUBE TP SCH (12:16)
[2016-11-22] VITALS: BP 156/79
[2016-11-22] MEDS: ACETYLCYSTEINE 20% SOLN 800 MG/4 ML VIAL NEB SCH ×4 (00:07→23:50)
[2016-11-22] MEDS: METOCLOPRAMIDE HCL 10 MG/10 ML UDC GT SCH ×4 (00:20→17:16)
[2016-11-22] MEDS: hydrALAZINE HCL 25 MG TABLET GT SCH ×4 (00:20→17:17)
[2016-11-22] MEDS: BLOOD SUGAR DIAGNOSTIC 1 EACH STRIP IN SCH ×4 (00:21→17:17)
[2016-11-22] MEDS: IPRATROPIUM NEB FS 0.5 MG/2.5 ML AMPUL.NEB NEB SCH ×4 (02:28→20:09)
[2016-11-22] MEDS: ALBUTEROL FS 2.5 MG/0.5 ML VIAL.NEB IH SCH ×4 (02:28→20:09)
[2016-11-22 04:00] VITALS: BP 149/72
[2016-11-22] MEDS: INSULIN REGULAR, HUMAN 100 UNIT/ML 3 ML VIAL SQ PRN ×3 (05:38→17:19)
[2016-11-22 06:47] LABS: CALCIUM, SERUM 9.2 mg/dL (8.5-10.1); POTASSIUM 3.8 mmol/L (3.5-5.1)
[2016-11-22] MEDS: IV NS 0.9% 250 ML IV PRN (07:21)
[2016-11-22 08:00] VITALS: BP 111/63
[2016-11-22] MEDS: PANTOPRAZOLE 40 MG/PACK PACK GT SCH ×2 (08:49→21:52)
[2016-11-22] MEDS: ZINC SULFATE 220 MG CAPSULE GT SCH (08:49)
[2016-11-22] MEDS: CHOLESTYRAMINE/ASPARTAME 4 G/PKT PACKET GT SCH ×2 (08:49→21:51)
[2016-11-22] MEDS: FAMOTIDINE (20 MG) 20 MG TABLET GT SCH (08:49)
[2016-11-22] MEDS: ACETAMINOPHEN 650 MG/20.3 ML UDC GT SCH (08:50)
[2016-11-22] MEDS: FERROUS SULFATE UDC 300 MG/5 ML UDC GT SCH (08:50)
[2016-11-22] MEDS: LEVETIRACETAM SOL (5 ML) 100 MG/ML UDC GT SCH ×2 (08:50→21:51)
[2016-11-22] MEDS: VIT B CMPLX 3/FA/VIT C/BIOTIN 1 TAB TABLET GT SCH (08:50)
[2016-11-22] MEDS: PROSOURCE / PROSTAT (PYXIS) 30 ML UDC GT SCH (08:51)
[2016-11-22] MEDS: ASCORBIC ACID SYRUP 500 MG/5 ML UDC GT SCH (08:51)
[2016-11-22] MEDS: INSULIN DETEMIR 100 UNIT/ML CARTRIDGE SQ SCH (08:53)
[2016-11-22] MEDS: HYDROGEL DRESSING 90 GM TUBE TP SCH (08:54)
[2016-11-22] MEDS: Z GUARD REMEDY 2 OZ OINT TP SCH (08:54)
[2016-11-22] MEDS: LOSARTAN POTASSIUM 50 MG TABLET PO SCH ×2 (09:00→21:51)
[2016-11-22] MEDS: AMLODIPINE BESYLATE 5 MG TABLET GT SCH ×2 (09:00→21:51)
[2016-11-22 12:00] VITALS: BP 124/68
[2016-11-22 16:00] VITALS: BP 143/66
[2016-11-22 20:00] VITALS: BP 120/67
[2016-11-23] VITALS: BP 134/66
[2016-11-23] MEDS: METOCLOPRAMIDE HCL 10 MG/10 ML UDC GT SCH ×3 (00:20→12:36)
[2016-11-23] MEDS: hydrALAZINE HCL 25 MG TABLET GT SCH ×3 (00:21→12:37)
[2016-11-23] MEDS: BLOOD SUGAR DIAGNOSTIC 1 EACH STRIP IN SCH ×3 (00:22→12:36)
[2016-11-23] MEDS: ALBUTEROL FS 2.5 MG/0.5 ML VIAL.NEB IH SCH ×3 (01:05→13:13)
[2016-11-23] MEDS: IPRATROPIUM NEB FS 0.5 MG/2.5 ML AMPUL.NEB NEB SCH ×3 (01:05→13:13)
[2016-11-23 04:00] VITALS: BP 141/77
[2016-11-23] MEDS: RENAL NOVASOURCE 1,000 ML BOTTLE GT PRN (06:27)
[2016-11-23] MEDS ORDERED: IV SET PRIMARY PUMP SET 1 EA INFUS.SET MC ONE (06:35)
[2016-11-23] MEDS: IV NS 0.9% 250 ML IV PRN (06:44)
[2016-11-23 06:46] LABS: CREATININE 5.8 mg/dL (0.6-1.3); POTASSIUM 4.1 mmol/L (3.5-5.1)
[2016-11-23 08:00] VITALS: BP 141/63
[2016-11-23] MEDS: ACETYLCYSTEINE 20% SOLN 800 MG/4 ML VIAL NEB SCH ×2 (08:06→13:13)
[2016-11-23] MEDS: ACETAMINOPHEN 650 MG/20.3 ML UDC GT SCH (09:30)
[2016-11-23] MEDS: ASCORBIC ACID SYRUP 500 MG/5 ML UDC GT SCH (09:30)
[2016-11-23] MEDS: SCOPOLAMINE HBR 1 EA PATCH.TD72 TD SCH (09:31)
[2016-11-23] MEDS: FERROUS SULFATE UDC 300 MG/5 ML UDC GT SCH (09:31)
[2016-11-23] MEDS: VIT B CMPLX 3/FA/VIT C/BIOTIN 1 TAB TABLET GT SCH (09:32)
[2016-11-23] MEDS: ZINC SULFATE 220 MG CAPSULE GT SCH (09:32)
[2016-11-23] MEDS: PROSOURCE / PROSTAT (PYXIS) 30 ML UDC GT SCH (09:32)
[2016-11-23] MEDS: PANTOPRAZOLE 40 MG/PACK PACK GT SCH (09:32)
[2016-11-23] MEDS: LEVETIRACETAM SOL (5 ML) 100 MG/ML UDC GT SCH (09:32)
[2016-11-23] MEDS: AMLODIPINE BESYLATE 5 MG TABLET GT SCH (09:32)
[2016-11-23] MEDS: LOSARTAN POTASSIUM 50 MG TABLET PO SCH (09:33)
[2016-11-23] MEDS: CHOLESTYRAMINE/ASPARTAME 4 G/PKT PACKET GT SCH (09:34)
[2016-11-23] MEDS: INSULIN DETEMIR 100 UNIT/ML CARTRIDGE SQ SCH (09:34)
[2016-11-23] MEDS: Z GUARD REMEDY 2 OZ OINT TP SCH (09:36)
[2016-11-23] MEDS: HYDROGEL DRESSING 90 GM TUBE TP SCH (09:55)
[2016-11-23] MEDS ORDERED: ALLA266C2 TP (11:18)
[2016-11-23] MEDS ORDERED: RXVAN XX (11:18)
[2016-11-23 12:00] VITALS: BP 134/71
[2016-11-23 12:37] VITALS: BP 134/78
[2016-11-23] MEDS: INSULIN REGULAR, HUMAN 100 UNIT/ML 3 ML VIAL SQ PRN (12:43)
[2016-11-23 14:11] LABS: HAPTOGLOBIN 323 mg/dL (34-200)
[2016-11-24 13:13] LABS: *SPE A/G RATIO 0.9 (0.7-1.7); *SPE ALBUMIN 3.2 g/dL (2.9-4.4); *SPE ALPHA-1-GLOBULIN 0.3 g/dL (0.0-0.4); *SPE ALPHA-2-GLOBULIN 0.9 g/dL (0.4-1.0); *SPE BETA GLOBULIN 0.8 g/dL (0.7-1.3); *SPE GLOBULIN, TOTAL 3.5 g/dL (2.2-3.9); *SPE M-SPIKE Not Observed g/dL (Not Observed); *SPE PROTEIN TOTAL 6.7 g/dL (6.0-8.5); *SPEGAMMA GLOBULIN 1.5 g/dL (0.4-1.8)
== END 2016-11-23 15:30 | DRG 208 ==
LOC: ER 20:10 → TELE1 21:32
PROVIDERS: ADMIT Internal Medicine; ATTEND Internal Medicine
PROC: 5A1945Z Respiratory Ventilation, 24-96 Consecutive Hours (ICD-10-PCS; principal; 2016-11-19)
PROC: 30233N1 Transfusion of Nonautologous Red Blood Cells into Peripheral Vein, Percutaneous Approach (ICD-10-PCS; 2016-11-19)
PROC: 5A1D60Z (ICD-10-PCS; 2016-11-20)
DX: J15.6 Pneumonia due to other Gram-negative bacteria (principal); N18.6 End stage renal disease; L89.154 Pressure ulcer of sacral region, stage 4; G93.49 Other encephalopathy; L89.323 Pressure ulcer of left buttock, stage 3; J96.11 Chronic respiratory failure with hypoxia; Z99.11 Dependence on respirator [ventilator] status; G93.1 Anoxic brain damage, not elsewhere classified; J98.11 Atelectasis; I12.0 Hypertensive chronic kidney disease with stage 5 chronic kidney disease or end stage renal disease; J15.9 Unspecified bacterial pneumonia; Z93.0 Tracheostomy status; Z99.2 Dependence on renal dialysis; E11.22 Type 2 diabetes mellitus with diabetic chronic kidney disease; G40.909 Epilepsy, unspecified, not intractable, without status epilepticus; Z93.1 Gastrostomy status; R13.10 Dysphagia, unspecified; D64.9 Anemia, unspecified; E78.5 Hyperlipidemia, unspecified; E87.6 Hypokalemia; D63.1 Anemia in chronic kidney disease; B86 Scabies; F09 Unspecified mental disorder due to known physiological condition; I25.10 Atherosclerotic heart disease of native coronary artery without angina pectoris; M85.80 Other specified disorders of bone density and structure, unspecified site; K21.9 Gastro-esophageal reflux disease without esophagitis; Z79.899 Other long term (current) drug therapy; Z79.4 Long term (current) use of insulin
CPT/HCPCS: 31720; 36415; 71010-TC; 80048-TC; 80202-TC; 82272-TC; 82306; 82378; 82728-TC; 82746; 82962-TC; 83010; 83540-TC; 83605-TC; 83615-TC; 83735-TC; 84100-TC; 84155; 84165; 84443-TC; 84550-TC; 85025-TC; 85045-TC; 85652-TC; 85730-TC; 86850-TC; 86921-TC; 87040-TC; 87081-TC; 90935-TC; 94002-TC; 94003-TC; 94762-TC; A4217; A4606; A6248; A6253; A6403; J0692; J1815; J1953; J3370; J3480; J7050; J7060; J8597; P9016-BL; Q0162; Z7610

== ENCOUNTER 2017-02-06 13:02 | Inpatient (IN) | payer MEDICARE, MEDICAID ==
[~2017-02-06] VITALS: Ht 162.6 cm; Wt 57.2 kg
[~2017-02-06 13:02] MED LIST changes: +ALLA266C2 TP; +LOSA50TA21 GT; -LOSA50TA21 PO; +RXVAN XX
--- NOTE | 2017-02-06 13:07 | NUR ---
[facility] D/T RIGHT FEMORAL HD CATH MALFUNCTION 1 HOUR INTO DIALYSIS. PATIENT IS VENT/TRACH DEPENDENT, OBTUNDED. NO SOB. VITALS STABLE. SAFETY AND COMFORT MEASURES IN PLACE. AWAITING MD ORDERS.
[2017-02-06 13:15] VITALS: BP 110/45
--- NOTE | 2017-02-06 13:15 | NUR ---
PT REC'D TRACHED PORTEX 7 VIA MECH VENT. PT PLACED ON MECH VENT WITH NOTED SETTINGS GIVEN FROM TRANSPORT RT. NO RESP DISTRESS NOTED. SX'D THICK YELLOW MOD AMT OF SECRETIONS. TRACK LAYER HEAD CUFF PRESSURE NOTED. VENT PLUGGED INTO RED OUTLET. ALARMS ARE SET AND AUDIBLE PER POLICY. AMBU BAG BEDSIDE. WILL CONTINUE TO MONITOR. Addendum: 02/06/17 at 1421 by VITOR TILLMAN RT Amended: Links added.
--- NOTE | 2017-02-06 13:39 | NUR ---
NEW IV STARTED ON RIGHT HAND, 20 G. BLOOD DRAWN AND SENT TO LAB. VULCANIZING MACHINE OPERATOR AT BEDSIDE FOR CXR.
[2017-02-06 13:41] LABS: BASOPHILS # (AUTO) 0.1 /CMM (0.0-0.2); BASOPHILS % (AUTO) 0.6 % (0.0-2.0); EOSINOPHILS # (AUTO) 0.5 /CMM (0.0-0.7); EOSINOPHILS % (AUTO) 5.3 % (0.0-6.0); HEMATOCRIT 31 % (33-45); HEMOGLOBIN 10.5 g/dL (11.5-14.8); LYMPHOCYTES # (AUTO) 1.8 /CMM (0.8-4.8); LYMPHOCYTES % (AUTO) 20.6 % (20.0-44.0); MEAN CORPUSCULAR HEMOGLOBIN 33 PG (26.0-33.0); MEAN CORPUSCULAR HGB CONC 35 g/dl (31.0-36.0); MEAN CORPUSCULAR VOLUME 96 fL (82-100); MONOCYTES # (AUTO) 0.6 /CMM (0.1-1.30); NEUTROPHILS % (AUTO) 66.5 % (43.0-81.0); PLATELET COUNT (AUTO) 258 /CMM (150-450); RED BLOOD CELL COUNT(AUTO) 3.18 MIL/uL (4.0-5.2)
[2017-02-06 13:54] LABS: INR 0.96 (0.87-1.13)
[2017-02-06 13:57] LABS: ALANINE AMINOTRANSFERASE 51 U/L (12-78); ALBUMIN 3.3 g/dL (3.4-5.0); ALKALINE PHOSPHATASE 413 U/L (46-116); ASPARTATE AMINOTRANSFERASE 23 U/L (15-37); BILIRUBIN,DIRECT 0.1 mg/dL (0.0-0.2); BILIRUBIN,TOTAL 0.5 mg/dL (0.2-1.0); CALCIUM, SERUM 9.3 mg/dL (8.5-10.1); CARBON DIOXIDE 25 mmol/L (21-32); CHLORIDE 98 mmol/L (98-107); CREATININE 6.7 mg/dL (0.6-1.3); GLUCOSE 115 mg/dL (74-106); POTASSIUM 4.8 mmol/L (3.5-5.1); SODIUM SERUM 135 mmol/L (136-145)
--- NOTE | 2017-02-06 13:57 | NUR ---
CALLED Tobin DRISCOLL FOR CONSULT. PAGED FOR CALLBACK.
[2017-02-06 13:58] LABS: UREA NITROGEN, BLOOD 93 mg/dL (7-18)
[2017-02-06 13:59] LABS: TROPONIN I < 0.017 ng/mL (0.00-0.056)
--- NOTE | 2017-02-06 14:03 | NUR ---
CALLED FOR TELE BED.
[2017-02-06] MEDS ORDERED: NUTR100037 GT (14:21)
[2017-02-06] MEDS ORDERED: ALTEPLASE CATHFLO 2 MG/VIAL XX ONE (15:00)
--- NOTE | 2017-02-06 15:15 | NUR ---
REPORT GIVEN TO SHIV BRAVO FOR ADMISSION
[2017-02-06 16:00] VITALS: BP 121/67
--- NOTE | 2017-02-06 16:00 | NUR ---
Tele/RN: [place] accompanied by RN, RT. On trach/vent tolerating well. R hand PIV #20 patent and intact. R Femoral HD Cath dressing C/D/I, no active bleeding noted on site. Pt presents with portable wound vac from facility with serosanguineous drainage noted on dressing. Dr. Vega antonio for pt admission of clarification of wound vac orders.
--- NOTE | 2017-02-06 16:40 | NUR ---
Tele/RN: Wound care DW Ami, Wound RN, bundle person and Dr Ferrari with instructions to d/c wound vac, cleanse with NS, apply hydrogel and protect with Mepilex. Pt wound vac labeled, logged in inventory and kept at bedside. Surgical wound consult obtained from Dr Ferrari for Dr Gatica. Consult notified. Dressing change performed, pt tolerated well. Will cont to monitor pt status.
[2017-02-06] MEDS ORDERED: Z GUARD REMEDY 2 OZ OINT TP PRN (17:00)
[2017-02-06] MEDS: BLOOD SUGAR DIAGNOSTIC 1 EACH STRIP IN SCH (17:58)
[2017-02-06] MEDS: hydrALAZINE HCL 25 MG TABLET GT SCH (17:58)
[2017-02-06] MEDS ORDERED: RENAL NOVASOURCE 1,000 ML BOTTLE GT PRN (18:00)
[2017-02-06] MEDS ORDERED: SCOPOLAMINE HBR 1 EA PATCH.TD72 TD SCH (18:00)
--- NOTE | 2017-02-06 19:05 | NUR ---
Tele/RN: Pt in stable condition, breathing even and unlabored, IV HL patent, R Fem Cath C/D/I s/p cathflow administration by HD RN. Portable wound vac placed in chart; rn discharge Sanaz nassar. Care endorsed to pm rn for belinda
--- NOTE | 2017-02-06 19:30 | NUR ---
AUTOMATIC WHEEL LINE OPERATOR INITIAL NOTE RECEIVED REPORT FROM SHIV BRAVO. PT IN BED. NONVERBAL, UNABLE TO MAKE NEEDS KNOWN. PT IS CHRONIC VENT TRACH TOLERATING CURRENT VENT SETTINGS. LUNG SOUNDS MINIMAL RHONCHI. BOWEL SOUNDS PRESENT. IV PATENT AND INTACT. DIAPER PRESENT. HD CATH INTACT. PORTABLE WOUND VAC WAS REMOVED BY DAY NURSE AND PLACED IN ZIPLOC AND IN CHART. MACHINE IS VERY SMALL AND WE BOTH FELT IT WOULD BE SAFER IN THE CHART VERSUS THE BEDSIDE. WILL ENDORSE TO ONCOMING SHIFTS. BED IN LOW LOCKED POSITION. WILL CONTINUE TO MONITOR.
[2017-02-06] MEDS: ALBUTEROL FS 2.5 MG/0.5 ML VIAL.NEB IH SCH (19:35)
[2017-02-06] MEDS: IPRATROPIUM NEB FS 0.5 MG/2.5 ML AMPUL.NEB IH SCH (19:35)
[2017-02-06 20:00] VITALS: BP 99/71
[2017-02-06] MEDS: AMLODIPINE BESYLATE 5 MG TABLET GT SCH (21:00)
[2017-02-06] MEDS ORDERED: FAMOTIDINE (20 MG) 20 MG TABLET GT SCH (21:00)
[2017-02-06] MEDS: LOSARTAN POTASSIUM 50 MG TABLET GT SCH (21:00)
[2017-02-06] MEDS: LEVETIRACETAM SOL (5 ML) 100 MG/ML UDC GT SCH (21:24)
[2017-02-06] MEDS: CHOLESTYRAMINE/ASPARTAME 4 G/PKT PACKET GT SCH (21:25)
[2017-02-07] VITALS: BP 111/67
[2017-02-07] MEDS: BLOOD SUGAR DIAGNOSTIC 1 EACH STRIP IN SCH ×4 (00:19→17:26)
[2017-02-07 04:00] VITALS: BP 150/88
[2017-02-07] MEDS: hydrALAZINE HCL 25 MG TABLET GT SCH ×4 (05:50→17:22)
--- NOTE | 2017-02-07 07:20 | NUR ---
RN NOTE REGARDING FEEDING DR. MORALES AT [id number]. ASKED MD IF WE SHOULD START NOVA SOURCE FEEDING. MD SAID WILL REVIEW CHART AND ASSESS PATIENT THEN DECIDE.
[2017-02-07 07:33] LABS: BASOPHILS % (AUTO) 0.4 % (0.0-2.0); EOSINOPHILS # (AUTO) 0.4 /CMM (0.0-0.7); EOSINOPHILS % (AUTO) 5.2 % (0.0-6.0); HEMATOCRIT 30 % (33-45); HEMOGLOBIN 10.3 g/dL (11.5-14.8); LYMPHOCYTES # (AUTO) 2.3 /CMM (0.8-4.8); LYMPHOCYTES % (AUTO) 29.9 % (20.0-44.0); MEAN CORPUSCULAR HEMOGLOBIN 33 PG (26.0-33.0); MEAN CORPUSCULAR HGB CONC 34 g/dl (31.0-36.0); MEAN CORPUSCULAR VOLUME 96 fL (82-100); MONOCYTES # (AUTO) 0.7 /CMM (0.1-1.30); MONOCYTES % (AUTO) 8.9 % (2.0-12.0); NEUTROPHILS # (AUTO) 4.2 /CMM (1.8-8.9); NEUTROPHILS % (AUTO) 55.6 % (43.0-81.0); PLATELET COUNT (AUTO) 242 /CMM (150-450); RDW COEFFICIENT OF VARIATION 15.7 (11.5-15.0); RED BLOOD CELL COUNT(AUTO) 3.13 MIL/uL (4.0-5.2); WHITE BLOOD COUNT (AUTO) 7.6 K/uL (4.3-11.0)
[2017-02-07 07:46] LABS: CALCIUM, SERUM 9.4 mg/dL (8.5-10.1)
[2017-02-07] MEDS: IPRATROPIUM NEB FS 0.5 MG/2.5 ML AMPUL.NEB IH SCH ×2 (07:49→19:30)
[2017-02-07] MEDS: ALBUTEROL FS 2.5 MG/0.5 ML VIAL.NEB IH SCH ×2 (07:49→19:33)
[2017-02-07 07:50] LABS: CREATININE 7.9 mg/dL (0.6-1.3)
[2017-02-07 08:00] VITALS: BP 133/66
[2017-02-07] MEDS: CHOLESTYRAMINE/ASPARTAME 4 G/PKT PACKET GT SCH ×2 (08:47→22:31)
[2017-02-07] MEDS: ACETAMINOPHEN 650 MG/20.3 ML UDC GT SCH (08:47)
[2017-02-07] MEDS: LEVETIRACETAM SOL (5 ML) 100 MG/ML UDC GT SCH ×2 (08:47→21:59)
[2017-02-07] MEDS: AMLODIPINE BESYLATE 5 MG TABLET GT SCH ×2 (08:48→21:00)
[2017-02-07] MEDS: VIT B CMPLX 3/FA/VIT C/BIOTIN 1 TAB TABLET GT SCH (08:48)
[2017-02-07] MEDS: PROSTAT (PYXIS) 30 ML UDC GT SCH (08:48)
[2017-02-07] MEDS: LOSARTAN POTASSIUM 50 MG TABLET GT SCH ×2 (08:48→21:00)
[2017-02-07] MEDS: FERROUS SULFATE UDC 300 MG/5 ML UDC GT SCH (08:48)
[2017-02-07] MEDS: INSULIN DETEMIR 100 UNIT/ML CARTRIDGE SQ SCH (08:50)
[2017-02-07] MEDS: ASCORBIC ACID SYRUP 500 MG/5 ML UDC GT SCH (09:00)
--- NOTE | 2017-02-07 09:50 | NUR ---
NON ADMIN REASON BP MEDS NON-ADMIN D/T DIALYSIS TODAY
[2017-02-07 12:00] VITALS: BP 109/59
--- NOTE | 2017-02-07 12:59 | NUR ---
RN NOTE SEEN AND EXAMINED BY SHAILESH RAMIREZ
[2017-02-07 16:00] VITALS: BP 90/62
--- NOTE | 2017-02-07 16:07 | NUR ---
FEEDING ORDER DR. FOY GAVE TELEPHONE ORDERS TO [facility] FEEDING PER DIETARY REC. NOVASOURCE 50ML/HR X17 HOURS. READ BACK AND CONFIRMED.
[2017-02-07] MEDS ORDERED: RENAL NOVASOURCE 1,000 ML BOTTLE GT PRN (16:44)
[2017-02-07 20:00] VITALS: BP 104/71
--- NOTE | 2017-02-07 20:00 | NUR ---
BLOW UP OPERATOR NOTES RECEIVED PTS ON BED WITH EYE OPEN , CONT ON VENT DEPENDENT AC SETTINGS WELL TOLERATED , HOB ELEVATED FOR ASPIRATION PRECAUTION, SUCTION SECRETION DONE AND PRN , V/S STABLE AFEBRILE . ALL NEEDS ATTENDED TOO . CALL LIGHT WITHIN REACH , ALL DUE MEDS GIVEN ORDERED , WITH RIGHT FEMORAL HD CATH INTACT AND PATENT , S/P DIALYSIS WITH 1800 CC OUTPUT. WITH IV ACCESS IN RIGHT HAND INTACT AND PATENT . PTS ON TELE SR ON THE MONITOR , SATING 100% NO SOB NO DISTRESS NOTED NO FACIAL GRIMACES NOTED AT THIS TIME, TURNED AND REPOSITION Q 2 HRS AND PRN.KEPT PTS CLEAN DRY AND COMFORTABLE , WILL CONTINUE TO MONITOR PTS.
--- NOTE | 2017-02-07 21:00 | NUR ---
EARLY CHILDHOOD SPECIALIST NOTES BLOOD PRESSURE MEDICATION DOSE FOR 9PM WAS HOLD D/T LOW BP, WILL CONTINUE TO MONITOR.
[2017-02-08] VITALS: BP 126/77
--- NOTE | 2017-02-08 | NUR ---
TUBE ROOM SUPERVISOR NOTES BLOOD SUGAR FOR 12MN IS 310 MG/DL = 8 UNITS OF REGULAR INSULIN GIVEN PER SLIDING SCALE WILL CHECK BLOOD SUGAR AGAIN IN 6AM . PTS ON GT FEEDING.
[2017-02-08] MEDS ORDERED: DEXTROSE 50%-WATER 50 ML DISP.SYRIN IV PRN (00:30)
[2017-02-08] MEDS: INSULIN REGULAR, HUMAN 100 UNIT/ML 3 ML VIAL SQ PRN ×4 (00:38→18:25)
[2017-02-08] MEDS: BLOOD SUGAR DIAGNOSTIC 1 EACH STRIP IN SCH ×4 (00:42→18:24)
[2017-02-08] MEDS: hydrALAZINE HCL 25 MG TABLET GT SCH ×4 (00:44→18:00)
[2017-02-08 04:00] VITALS: BP 90/60
--- NOTE | 2017-02-08 04:00 | NUR ---
TOWER AIR TRAFFIC CONTROL SPECIALIST NOTES MORNING CARE RENDERED , V/S STABLE AFEBRILE NO SIGNIFICANCE CHANGE NOTED .
--- NOTE | 2017-02-08 06:00 | NUR ---
CASING COOKER NOTES HYDRALAZINE DOSE FOR 6AM IS HOLD D/T BP 90/60 WILL CONTINUE TO MONITOR.
[2017-02-08] MEDS: ALBUTEROL FS 2.5 MG/0.5 ML VIAL.NEB IH SCH (07:37)
[2017-02-08] MEDS: IPRATROPIUM NEB FS 0.5 MG/2.5 ML AMPUL.NEB IH SCH (07:37)
--- NOTE | 2017-02-08 07:38 | NUR ---
SASH MAKER NOTES PTS ON BED , WITH EYE OPEN . REMAINS ON VENT SETTING WELL TOLERATED ,NO SIGNIFICANCE CHANGE NOTED , WILL ENDORSE TO RN DAY SHIFT FOR CONTINUITY OF CARE.
[2017-02-08 07:52] LABS: BASOPHILS % (AUTO) 0.1 % (0.0-2.0); EOSINOPHILS # (AUTO) 0.3 /CMM (0.0-0.7); EOSINOPHILS % (AUTO) 3.5 % (0.0-6.0); HEMATOCRIT 34 % (33-45); HEMOGLOBIN 11.4 g/dL (11.5-14.8); LYMPHOCYTES # (AUTO) 2.4 /CMM (0.8-4.8); LYMPHOCYTES % (AUTO) 32.2 % (20.0-44.0); MEAN CORPUSCULAR HEMOGLOBIN 32 PG (26.0-33.0); MEAN CORPUSCULAR HGB CONC 34 g/dl (31.0-36.0); MEAN CORPUSCULAR VOLUME 97 fL (82-100); MONOCYTES # (AUTO) 0.6 /CMM (0.1-1.30); MONOCYTES % (AUTO) 8.8 % (2.0-12.0); NEUTROPHILS # (AUTO) 4.1 /CMM (1.8-8.9); NEUTROPHILS % (AUTO) 55.4 % (43.0-81.0); PLATELET COUNT (AUTO) 247 /CMM (150-450); RDW COEFFICIENT OF VARIATION 15.8 (11.5-15.0); RED BLOOD CELL COUNT(AUTO) 3.52 MIL/uL (4.0-5.2); WHITE BLOOD COUNT (AUTO) 7.3 K/uL (4.3-11.0)
[2017-02-08 08:00] VITALS: BP 89/59
--- NOTE | 2017-02-08 08:11 | NUR ---
RN INITIAL NOTE PATIENT RECEIVED IN BED, RESTING. PATIENT SHOWS NO S/S OF PAIN OR DISCOMFORT. PATIENT IS OBTUNDED, NON VERBAL. SINUS RHYTHM ON TELE MONITOR. HAS TRACH; PORTEX-7, SATING WELL ON VENT SETTINGS. IV SITE FLUSHED, PATENT. GTUBE, PATENT, PLACEMENT CONFIRMED. RUNNING NOVASOURCE AT 50ML/HR. TOLERATING FEEDING WELL. SAFETY PRECAUTIONS IMPLEMENTED. BED IN LOCKED POSITION. TWO SIDE RAILS UP. WILL CONTINUE TO MONITOR.
[2017-02-08 08:18] LABS: ALBUMIN 3.5 g/dL (3.4-5.0); BILIRUBIN,TOTAL 0.6 mg/dL (0.2-1.0); CALCIUM, SERUM 9.8 mg/dL (8.5-10.1); MAGNESIUM 2.4 mg/dL (1.8-2.4); PHOSPHORUS 3.7 mg/dL (2.5-4.9); POTASSIUM 4.3 mmol/L (3.5-5.1); TOTAL PROTEIN, SERUM 8.3 g/dL (6.4-8.2)
[2017-02-08] MEDS ORDERED: HYDROGEL DRESSING 90 GM TUBE TP SCH (09:00)
[2017-02-08] MEDS: ACETAMINOPHEN 650 MG/20.3 ML UDC GT SCH (10:02)
[2017-02-08] MEDS: FERROUS SULFATE UDC 300 MG/5 ML UDC GT SCH (10:02)
[2017-02-08] MEDS: LEVETIRACETAM SOL (5 ML) 100 MG/ML UDC GT SCH (10:03)
[2017-02-08] MEDS: PROSTAT (PYXIS) 30 ML UDC GT SCH (10:03)
[2017-02-08] MEDS: VIT B CMPLX 3/FA/VIT C/BIOTIN 1 TAB TABLET GT SCH (10:03)
[2017-02-08] MEDS: AMLODIPINE BESYLATE 5 MG TABLET GT SCH (10:04)
[2017-02-08] MEDS: LOSARTAN POTASSIUM 50 MG TABLET GT SCH (10:05)
[2017-02-08] MEDS: ASCORBIC ACID SYRUP 500 MG/5 ML UDC GT SCH (10:24)
[2017-02-08] MEDS: CHOLESTYRAMINE/ASPARTAME 4 G/PKT PACKET GT SCH (10:27)
[2017-02-08] MEDS: INSULIN DETEMIR 100 UNIT/ML CARTRIDGE SQ SCH (10:29)
[2017-02-08 12:00] VITALS: BP 106/75
[2017-02-08 16:00] VITALS: BP 91/58
--- NOTE | 2017-02-08 16:45 | NUR ---
RN CLOSING NOTE PATIENT DISCHARGED, PAPERWORK COMPLETE, REPORT CALLED. IV SITE D/C'D, ID AND TELE BOX REMOVED LEFT VIA AMBULANCE
[2017-02-08 18:00] VITALS: BP 91/58
[2017-02-09] MEDS ORDERED: ASCORBIC ACID 500 MG TABLET PO SCH (12:00)
== END 2017-02-08 18:58 | DRG 314 ==
LOC: ER 13:04 → MEDSG1 14:46 → TELE1 15:15
PROVIDERS: ADMIT Internal Medicine Nephrology; ATTEND Internal Medicine Nephrology
PROC: 5A1945Z Respiratory Ventilation, 24-96 Consecutive Hours (ICD-10-PCS; principal; 2017-02-06)
PROC: 5A1D60Z (ICD-10-PCS; 2017-02-06)
DX: T82.41XA Breakdown (mechanical) of vascular dialysis catheter, initial encounter (principal); N18.6 End stage renal disease; Z99.11 Dependence on respirator [ventilator] status; G93.40 Encephalopathy, unspecified; L89.154 Pressure ulcer of sacral region, stage 4; J96.10 Chronic respiratory failure, unspecified whether with hypoxia or hypercapnia; Z93.0 Tracheostomy status; E11.22 Type 2 diabetes mellitus with diabetic chronic kidney disease; I12.0 Hypertensive chronic kidney disease with stage 5 chronic kidney disease or end stage renal disease; Y84.9 Medical procedure, unspecified as the cause of abnormal reaction of the patient, or of later complication, without mention of misadventure at the time of the procedure; Y92.129 Unspecified place in nursing home as the place of occurrence of the external cause; E78.5 Hyperlipidemia, unspecified; G40.909 Epilepsy, unspecified, not intractable, without status epilepticus; K21.9 Gastro-esophageal reflux disease without esophagitis; Z93.1 Gastrostomy status; Z99.2 Dependence on renal dialysis; Y71.2 Prosthetic and other implants, materials and accessory cardiovascular devices associated with adverse incidents; L98.9 Disorder of the skin and subcutaneous tissue, unspecified; R13.10 Dysphagia, unspecified; D64.9 Anemia, unspecified; Z79.899 Other long term (current) drug therapy
CPT/HCPCS: 31720; 36415; 71010-TC; 80048-TC; 80053-TC; 80076-TC; 82962-TC; 83735-TC; 84100-TC; 84484-TC; 85025-TC; 85730-TC; 87081-TC; 90935-TC; 94002-TC; 94003-TC; 94762-TC; 99082-TC; A4606; A6248; A6253; A6402; J1815; J1953; J2997; Z7610

== ENCOUNTER 2017-07-07 11:59 | Inpatient (IN) | payer MEDICARE, MEDICAID ==
[~2017-07-07] VITALS: Ht 160 cm; Wt 60.8 kg
[~2017-07-07 11:59] MED LIST changes: -ACET-868 GT; -ACET200V5 NEB; -METO5TAB87 GT; -OMEP40CA37 GT; -ONDA-25 GT; -RXVAN XX; -TOBR5DRO12 LEFTEYE; -ZINC220C8 GT
--- NOTE | 2017-07-07 12:15 | NUR ---
PT bib EMS FROM [facility] FOR G-TUBE DISLODGEMENT SEVERAL ATTEMPTS DONE AT FACILITY UNABLE TO REPLACE G-TUBE OUT SINCE 0900 SIZE UNKNOW. PT VENT DEPENDENT.
[2017-07-07 12:18] VITALS: BP 98/61
[2017-07-07] MEDS ORDERED: DIATR MEGLU/DIATRIZOATE SODIUM 30 ML BOTTLE (GASTROGRAPHIN) ONE (12:20)
--- NOTE | 2017-07-07 12:43 | NUR ---
PRE-OP LABS DONE PIV PLACED 20 G IN LH EKG DONE NOW WELL
[2017-07-07 12:47] LABS: BASOPHILS % (AUTO) 0.2 % (0.0-2.0); EOSINOPHILS # (AUTO) 0.3 /CMM (0.0-0.7); EOSINOPHILS % (AUTO) 2.6 % (0.0-6.0); HEMATOCRIT 29 % (33-45); HEMOGLOBIN 9.9 g/dL (11.5-14.8); LYMPHOCYTES # (AUTO) 1.4 /CMM (0.8-4.8); LYMPHOCYTES % (AUTO) 12.4 % (20.0-44.0); MEAN CORPUSCULAR HEMOGLOBIN 32 PG (26.0-33.0); MEAN CORPUSCULAR HGB CONC 34 g/dl (31.0-36.0); MEAN CORPUSCULAR VOLUME 96 fL (82-100); MONOCYTES # (AUTO) 0.9 /CMM (0.1-1.30); MONOCYTES % (AUTO) 8.1 % (2.0-12.0); NEUTROPHILS # (AUTO) 8.6 /CMM (1.8-8.9); NEUTROPHILS % (AUTO) 76.7 % (43.0-81.0); PLATELET COUNT (AUTO) 347 /CMM (150-450); RDW COEFFICIENT OF VARIATION 17.4 (11.5-15.0); RED BLOOD CELL COUNT(AUTO) 3.06 MIL/uL (4.0-5.2); WHITE BLOOD COUNT (AUTO) 11.2 K/uL (4.3-11.0)
[2017-07-07 13:01] LABS: INR 0.96 (0.85-1.15)
[2017-07-07 13:06] LABS: BILIRUBIN,TOTAL 0.5 mg/dL (0.2-1.0); CALCIUM, SERUM 9.9 mg/dL (8.5-10.1); CREATININE 6.9 mg/dL (0.6-1.3); POTASSIUM 3.7 mmol/L (3.5-5.1); TOTAL PROTEIN, SERUM 8.5 g/dL (6.4-8.2)
--- NOTE | 2017-07-07 13:17 | NUR ---
CALLED [facility],VAMP MAKER WAS PAGED.
[2017-07-07] MEDS ORDERED: ONDA4TAB5 GT (13:22)
[2017-07-07] MEDS ORDERED: FOLI0.8T2 GT (13:22)
[2017-07-07] MEDS ORDERED: IPRA3AMP IH (13:22)
--- NOTE | 2017-07-07 14:01 | NUR ---
CALLED [facility] BRANCH RENTAL MANAGER IS NICOLE
--- NOTE | 2017-07-07 17:00 | NUR ---
ms rn received a new admission from er, came in w/ gt malfuction, hd pt, vent dependent, nonverbal patient, will monitor patient's condition.
[2017-07-07] MEDS ORDERED: MORPHINE SULFATE INJ 2 MG/ML DISP.SYRIN IV PRN (17:30)
[2017-07-07] MEDS ORDERED: DEXTROSE 50%-WATER 50 ML DISP.SYRIN IV PRN (17:30)
[2017-07-07] MEDS ORDERED: ONDANSETRON HCL/PF 4 MG/2 ML VIAL IV PRN (17:30)
[2017-07-07] MEDS ORDERED: IV D5/0.45 NACL 1,000 ML IV SCH (17:30)
--- NOTE | 2017-07-07 17:30 | NUR ---
ms rn orders made by dr. barkley and carried out.
--- NOTE | 2017-07-07 17:40 | NUR ---
ms rn upon assessment, patient noted to have a pump at lower back, charge nurse said its a pain pump.
[2017-07-07 17:50] VITALS: BP 111/63
--- NOTE | 2017-07-07 18:00 | NUR ---
ms rn started on dialysis,will monitor patient.
[2017-07-07] MEDS: ALBUMIN 25% 25 GM in PREMIX 1 EA IV PRN ×2 (18:46→18:50)
[2017-07-07] MEDS: BLOOD SUGAR DIAGNOSTIC 1 EACH STRIP IN SCH (18:49)
[2017-07-07] MEDS: PANTOPRAZOLE 40 MG VIAL IV SCH (18:52)
--- NOTE | 2017-07-07 18:55 | NUR ---
ms rn dr. velasco called, that pt will have peg placement in am.
--- NOTE | 2017-07-07 19:14 | NUR ---
ms rn still on dialysis, will endorse to banjo repair person.
--- NOTE | 2017-07-07 19:30 | NUR ---
TELE/RN NOTES RECEIVED PT. LYING IN BED. PT. IS AWAKE, NON-VERBAL VENT/TRACH DEPENDENT. BREATHING EVEN AND UNLABORED. NO SOB, RESPIRATORY DISTRESS OR S/S OF PAIN NOTED AT THIS TIME. PT. WITH EXTERNAL TRANSPORTATION MECHANIC PRESENT AND INTACT. CURRENT RHYTHM = SINUS RHYTHM HR 91. PT. WITH LEFT HAND 22 GAUGE PERIPHERAL IV PRESENT, PATENT AND INTACT. PT. WITH RIGHT FEMORAL KAYLA CATHETER PRESENT AND INTACT. PT. IS CURRENTLY RECEIVING DIALYSIS. BED LOCKED AND IN LOWEST POSITION, SIDE RAILS UP X3, BED ALARM ON, WILL CONTINUE TO MONITOR.
[2017-07-07 20:00] VITALS: BP 95/67
--- NOTE | 2017-07-07 20:20 | NUR ---
TELE/RN NOTES PT. DIALYSIS COMPLETED. 1 L OUT. PT. VITAL SIGNS STABLE. WILL CONTINUE TO MONITOR.
--- NOTE | 2017-07-07 20:42 | NUR ---
RCVD PT ON VENT WITH NOTED SETTINGS. VENT PLUGGED INTO RED OUTLET, VENT ALARM WORKING AND AUDIBLE, AMBU BAG AT BEDSIDE. SUCTIONED MODERATE YELLOW THICK SECRETIONS .WILL CONTINUE TO MONITOR THE PT.
[2017-07-08] VITALS: BP 91/53
[2017-07-08] MEDS: BLOOD SUGAR DIAGNOSTIC 1 EACH STRIP IN SCH ×5 (00:08→23:49)
--- NOTE | 2017-07-08 00:08 | NUR ---
TELE/RN NOTES PT. BLOOD SUGAR IS 178 MG/DL. NO INSULIN ADMINISTERED TO PT. AT THIS TIME. PT. IS NPO. WILL CONTINUE TO MONITOR FOR CHANGES.
[2017-07-08 04:00] VITALS: BP 92/57
--- NOTE | 2017-07-08 06:25 | NUR ---
TELE/RN NOTES PT. BLOOD SUGAR IS 189 MG/DL. NO INSULIN ADMINISTERED TO PT. AT THIS TIME. PT. IS NPO. WILL CONTINUE TO MONITOR FOR CHANGES.
--- NOTE | 2017-07-08 06:43 | NUR ---
TELE/RN NOTES PT. IS LYING IN BED RESTING. PT. IS NON-VERBAL VENT/TRACH DEPENDENT. BREATHING EVEN AND UNLABORED. NO SOB, RESPIRATORY DISTRESS OR S/S OF PAIN NOTED AT THIS TIME. PT. WITH EXTERNAL INSTITUTIONAL CUSTODIAN PRESENT AND INTACT. CURRENT RHYTHM = SINUS RHYTHM HR 94. PT. WITH LEFT HAND 22 GAUGE PERIPHERAL IV PRESENT, PATENT AND INTACT ADMINISTERING TO PT. D5 1/2 NS @ 30ML/HR. ALL PT. NEEDS MET. PT. OFFLOADED, TURNED AND REPOSITIONED Q2H AND NEEDED. BED LOCKED AND IN LOWEST POSITION, SIDE RAILS UP X3, BED ALARM ON, WILL ENDORSE TO DAYSHIFT NURSE FOR CONTINUITY OF CARE.
--- NOTE | 2017-07-08 06:55 | NUR ---
TELE/RN NOTES CALLED PT. DAUGHTER SHAILESH AND RECEIVED TELEPHONE CONSENT FOR PEG PLACEMENT, ANESTHESIA AND BLOOD CONSENT. TELEPHONE CONSENT WITNESSED BY LAWRENCE CASH. WILL FILL OUT CONSENT FORMS AND PLACE IN PT. CHART.
[2017-07-08 07:05] LABS: BASOPHILS # (AUTO) 0.1 /CMM (0.0-0.2); BASOPHILS % (AUTO) 0.8 % (0.0-2.0); EOSINOPHILS # (AUTO) 0.3 /CMM (0.0-0.7); EOSINOPHILS % (AUTO) 3.5 % (0.0-6.0); HEMATOCRIT 26 % (33-45); HEMOGLOBIN 8.8 g/dL (11.5-14.8); LYMPHOCYTES # (AUTO) 1.8 /CMM (0.8-4.8); LYMPHOCYTES % (AUTO) 24.2 % (20.0-44.0); MEAN CORPUSCULAR HEMOGLOBIN 33 PG (26.0-33.0); MEAN CORPUSCULAR HGB CONC 34 g/dl (31.0-36.0); MEAN CORPUSCULAR VOLUME 97 fL (82-100); MONOCYTES # (AUTO) 0.9 /CMM (0.1-1.30); MONOCYTES % (AUTO) 11.9 % (2.0-12.0); NEUTROPHILS # (AUTO) 4.5 /CMM (1.8-8.9); NEUTROPHILS % (AUTO) 59.6 % (43.0-81.0); PLATELET COUNT (AUTO) 283 /CMM (150-450); RDW COEFFICIENT OF VARIATION 18.1 (11.5-15.0); RED BLOOD CELL COUNT(AUTO) 2.63 MIL/uL (4.0-5.2); WHITE BLOOD COUNT (AUTO) 7.5 K/uL (4.3-11.0)
[2017-07-08 07:30] LABS: CALCIUM, SERUM 10.4 mg/dL (8.5-10.1); CREATININE 6.1 mg/dL (0.6-1.3); MAGNESIUM 2.3 mg/dL (1.8-2.4); PHOSPHORUS 4.6 mg/dL (2.5-4.9); POTASSIUM 3.8 mmol/L (3.5-5.1)
[2017-07-08 08:00] VITALS: BP 88/50
--- NOTE | 2017-07-08 08:00 | NUR ---
TELE/RN AM NOTES RECEIVED PT. LYING IN BED. PT. IS AWAKE, NON-VERBAL VENT/TRACH DEPENDENT. BREATHING EVEN AND UNLABORED. NO SOB, RESPIRATORY DISTRESS OR S/S OF PAIN NOTED AT THIS TIME.ON TELE WITH SINUS RHYTHM HR 92. PT. WITH LEFT HAND 22 GAUGE PERIPHERAL IV PRESENT, PATENT AND INTACT. PT. WITH RIGHT FEMORAL KAYLA CATHETER PRESENT AND INTACT.FOR PEG PLACEMENT TODAY.CONSENT HAS BEEN SIGNED.BED LOCKED AND IN LOWEST POSITION, SIDE RAILS UP X3, BED ALARM ON, WILL CONTINUE TO MONITOR.
[2017-07-08] MEDS ORDERED: HYDROMORPHONE INJ 0.5 MG/0.5 ML SYRINGE IV PRN (10:00)
--- NOTE | 2017-07-08 10:24 | NUR ---
WOUND CARE CONSULT: PT PRESENTS WITH MULTIPLE WOUNDS INCLUDING HEALING STAGE 4 ULCER TO SACRUM, BILATERAL HEEL ESCHARS WITH RT 5TH TOE ESCHAR AND HYPERGRANULAR TISSUE TO OLD G TUBE SITE, ALL PRESENT ON ADMISSION. BECERRIL AND NEPHEW DEVICE REMOVED FROM SACRAL ULCER. ALL SKIN PROTECTION AND WOUND RECOMMENDATIONS DISCUSSED WITH NURSING STAFF. RECOMMEND SURGICAL CONSULT. CURRENT CABRERA SCORE IS 11. PT IS VENT-DEPENDENT. WILL SEE PRN. RASMUSSEN IN AGREEMENT WITH PLAN OF CARE. PT ON HAIR ISOFLEX LOW AIRLOSS BED. Addendum: 07/08/17 at 1027 by FIDEL MICHAEL WNDNU Amended: Links added.
[2017-07-08] MEDS ORDERED: HYDROGEL DRESSING 90 GM TUBE TP PRN (10:30)
[2017-07-08] MEDS ORDERED: SILVER NITRATE APPLICATOR 1 EA BOX TP ONE (10:30)
[2017-07-08] MEDS ORDERED: Z GUARD REMEDY 2 OZ OINT TP PRN (10:30)
--- NOTE | 2017-07-08 10:50 | NUR ---
PEG PLACEMENT PROCEDURE COMPLETED BY DR AUGUST.WITH STABLE V/S.WITH CAUTERIZED OLD PEG SITE NOTED.PEG TUBE PLACED ON A NEW SITE CLOSED TO THE OLD GT SITE.NO S/S OF PAIN OR DISTRESS.WILL CONTINUE TO MONITOR.
--- NOTE | 2017-07-08 10:50 | NUR ---
SILVER NITRATE APPLICATOR APPLIED BY SURGEON DURING PEG TUBE PROCEDURE.
[2017-07-08] MEDS ORDERED: KEPPRA 500 MG in IV NS 100 ML IV SCH (11:00)
[2017-07-08] MEDS: Z GUARD REMEDY 2 OZ OINT TP SCH (11:41)
[2017-07-08] MEDS: INSULIN REGULAR, HUMAN 100 UNIT/ML 3 ML VIAL SQ PRN ×3 (12:00→23:46)
[2017-07-08] MEDS: HYDROGEL DRESSING 90 GM TUBE TP SCH (14:07)
[2017-07-08 15:58] LABS: IRON, SERUM 56 ug/dl (50-175); TOTAL IRON BINDING CAPACITY 153 ug/dl (250-450)
[2017-07-08 16:00] VITALS: BP 119/63
[2017-07-08] MEDS: PROSOURCE / PROSTAT (PYXIS) 30 ML UDC GT SCH (16:34)
[2017-07-08] MEDS: PANTOPRAZOLE 40 MG VIAL IV SCH (16:34)
--- NOTE | 2017-07-08 18:00 | NUR ---
GT FEEDING TO BE RESUMED.CALLED [facility] FOR GT PUMP AND CALLED DIETARY FOR NOVASOURCE RENAL GT FEEDING.ENDORSED TO NIGHT NURSE TO HOOK GT FEEDING WHEN AVAILABLE.PT HAS NO S/S OF PAIN OR DISTRESS.TURNED EVERY TWO HRS.SUCTIONED SECRETIONS PRN AND KEPT CLEAN AND DRY.
--- NOTE | 2017-07-08 19:15 | NUR ---
RN OPENING NOTES PT NONVERBAL. NO APPARENT S/S OF PAIN, DISTRESS OR SOB NOTED AT THIS TIME. PT HAS A NEWLY REPLACED PEG TUBE (07/08/17). PER DAY SHIFT NURSE WILL BEGIN TUBE FEEDING. PEG IS INTACT AND FLUSHES WELL. PT HAS A LEFT HAND #22 IV RUNNING D5 1/2 NS @30 ML/HR. PT IS VENT DEPENDENT. PT IS TELE MONITORED SINUS RHYTHM. SAFETY PRECAUTIONS IN PLACE. WILL CONTINUE TO MONITOR.
[2017-07-08] MEDS ORDERED: LIDOCAINE 1%-EPI 1:100,000 20 ML VIAL TP ONE (19:30)
[2017-07-08] MEDS ORDERED: SILVER NITRATE APPLICATOR 1 EA BOX TP SCH (19:30)
[2017-07-08 20:00] VITALS: BP 91/58
[2017-07-08] MEDS: LEVETIRACETAM SOL (5 ML) 100 MG/ML UDC GT SCH (20:10)
[2017-07-09] VITALS: BP 114/68
[2017-07-09 04:00] VITALS: BP 101/48
[2017-07-09] MEDS: INSULIN REGULAR, HUMAN 100 UNIT/ML 3 ML VIAL SQ PRN ×4 (06:25→23:51)
[2017-07-09] MEDS: BLOOD SUGAR DIAGNOSTIC 1 EACH STRIP IN SCH ×4 (06:25→23:00)
--- NOTE | 2017-07-09 06:58 | NUR ---
RN CLOSING NOTES PT NONVERBAL. NO APPARENT S/S OF PAIN, DISTRESS OR SOB OVERNIGHT. PT HAS G TUBE FEEDING 35ML/HR NOVASOURCE, PT TOLERATING WELL. GTUBE IS INTACT AND FLUSHES WELL. PT HAS A LEFT HAND #22 IV RUNNING D5 1/2 NS @30 ML/HR. PT IS TELE MONITORED SINUS RHYTHM RATE 92. PT VENT/TRACH INTACT. SAFETY PRECAUTIONS IN PLACE. WILL ENDORSE TO DAY SHIFT NURSE FOR CONTINUITY OF CARE.
[2017-07-09 07:11] LABS: BASOPHILS % (AUTO) 0.5 % (0.0-2.0); EOSINOPHILS # (AUTO) 0.3 /CMM (0.0-0.7); EOSINOPHILS % (AUTO) 3.7 % (0.0-6.0); HEMATOCRIT 26 % (33-45); HEMOGLOBIN 8.9 g/dL (11.5-14.8); LYMPHOCYTES # (AUTO) 1.3 /CMM (0.8-4.8); LYMPHOCYTES % (AUTO) 14.9 % (20.0-44.0); MEAN CORPUSCULAR HEMOGLOBIN 34 PG (26.0-33.0); MEAN CORPUSCULAR HGB CONC 35 g/dl (31.0-36.0); MEAN CORPUSCULAR VOLUME 96 fL (82-100); MONOCYTES % (AUTO) 11.3 % (2.0-12.0); NEUTROPHILS % (AUTO) 69.6 % (43.0-81.0); PLATELET COUNT (AUTO) 271 /CMM (150-450); RDW COEFFICIENT OF VARIATION 18.4 (11.5-15.0); RED BLOOD CELL COUNT(AUTO) 2.64 MIL/uL (4.0-5.2); WHITE BLOOD COUNT (AUTO) 8.6 K/uL (4.3-11.0)
[2017-07-09 07:37] LABS: CALCIUM, SERUM 9.9 mg/dL (8.5-10.1); MAGNESIUM 2.4 mg/dL (1.8-2.4); PHOSPHORUS 6.8 mg/dL (2.5-4.9); POTASSIUM 3.9 mmol/L (3.5-5.1)
[2017-07-09 07:41] LABS: CREATININE 8.4 mg/dL (0.6-1.3)
[2017-07-09] MEDS: ALBUMIN 25% 25 GM in PREMIX 1 EA IV PRN (07:58)
[2017-07-09 08:00] VITALS: BP 97/42
--- NOTE | 2017-07-09 08:00 | NUR ---
TELE/RN AM NOTES RECEIVED PT. LYING IN BED. PT. IS AWAKE, NON-VERBAL VENT/TRACH DEPENDENT WITH SETTINGS ORDERED. BREATHING EVEN AND UNLABORED. NO SOB, RESPIRATORY DISTRESS OR S/S OF PAIN NOTED AT THIS TIME.ON TELE WITH SINUS RHYTHM HR 92. PT. WITH LEFT HAND 22 GAUGE PERIPHERAL IV PRESENT, PATENT AND INTACT. PT. WITH RIGHT FEMORAL KAYLA CATHETER PRESENT AND INTACT.FOR SACRAL WOUND DEBRIDEMENT TODAY.BED LOCKED AND IN LOWEST POSITION, SIDE RAILS UP X3, BED ALARM ON, WILL CONTINUE TO MONITOR. Addendum: 07/09/17 at 1721 by JOSUE DE PAZ RN ON GT FEEDING OF NOV[employer]im[employer]CE RENAL RUNNING AT 35 ML/HR TOLERATING WELL WITH NO RESIDUALS NOTED.HOB KEPT ELEVATED.
--- NOTE | 2017-07-09 09:00 | NUR ---
HEMODIALYSIS COMPLETED WITH NO OUTPUT.BP 105/53 HR 94.ALBUMIN IV GIVEN TO THE PT WITH HD.
[2017-07-09] MEDS: VIT B CMPLX 3/FA/VIT C/BIOTIN 1 TAB TABLET GT SCH (09:45)
[2017-07-09] MEDS: Z GUARD REMEDY 2 OZ OINT TP SCH (09:46)
[2017-07-09] MEDS: HYDROGEL DRESSING 90 GM TUBE TP SCH (09:47)
[2017-07-09] MEDS: LEVETIRACETAM SOL (5 ML) 100 MG/ML UDC GT SCH ×2 (09:54→20:33)
[2017-07-09] MEDS: PROSOURCE / PROSTAT (PYXIS) 30 ML UDC GT SCH ×2 (09:54→16:41)
--- NOTE | 2017-07-09 10:30 | NUR ---
SACRAL WOUND DEBRIDEMENT DONE TODAY BY DR HARVEY.DRESSING CLEAN AND DRY.WILL CONTINUE TO MONITOR.
[2017-07-09] MEDS: PIPERACILLIN /TAZOBACTAM 2.25 G in IV NS 0.9% 50 ML IV SCH ×2 (15:36→22:44)
[2017-07-09 16:00] VITALS: BP 108/65
[2017-07-09] MEDS: PANTOPRAZOLE 40 MG VIAL IV SCH (16:41)
--- NOTE | 2017-07-09 17:46 | NUR ---
PT RESTING COMFORTABLY IN BED WITH NO SOB ON MECH VENT.SUCTIONED SECRETIONS PRN AND KEPT CLEAN AND DRY.ABLE TO COLLECT OB STOOL AND SENT TO LAB.
--- NOTE | 2017-07-09 18:00 | NUR ---
TOLERATING GT FEEDING WELL.DRESSING CHANGED TO GT SITE WITH DRY SEROSANGUINOUS DRAINAGE MINIMAL IN AMT.
--- NOTE | 2017-07-09 19:15 | NUR ---
SLOT FLOORMAN OPENING NOTES: RECEIVED PT IN BED AND IS ASLEEP AT THIS TIME. PT IS ON PORTEX 7, AC 2, TV 500, FIO2 40, AND PEEP 5. PT ON TELE BOX. PT OPENS EYES AND IS NONVERBAL. PT HAS G TUBE FEEDING. NO RESIDUAL NOTED. PT ON GT NOVASOURCE FEEDING AT 35ML/HR. PT HAS L HAND #22G AND IS PATENT AND INTACT. PT ALSO HAS R FEMORAL KAYLA CATH NOTED. PT SUCTIONED PRN. CALL LIGHT WITHIN PT'S REACH. BED KEPT IN LOW, LOCKED POSITION, AND SIDE RAILS X 2UP. WILL CONTINUE TO MONITOR PT.
[2017-07-09 20:00] VITALS: BP 107/75
--- NOTE | 2017-07-09 23:11 | NUR ---
ANALYTICAL STRATEGIST NOTES: FAXED OVER INSULIN SHEET TO DEPILATORY PAINTER. NO INSULIN FOUND IN CASSETTE. AWAITING WHEN IT IS READY.
[2017-07-09] MEDS ORDERED: INSULIN REGULAR, HUMAN 100 UNIT/ML 3 ML VIAL ONE (23:44)
--- NOTE | 2017-07-09 23:51 | NUR ---
FINISHED CARPET INSPECTOR NOTES: BLOOD SUGAR WAS 185. 3 UNITS OF INSULIN WAS ADMINISTERED. HAD TO MANUALLY ADMINISTER. GOT INSULIN FROM NURSING LABOR RELATIONS TEACHER.
[2017-07-10] VITALS (7 sets, daily range): BP systolic 94–149; BP diastolic 54–91
[2017-07-10] MEDS: RENAL NOVASOURCE 1,000 ML BOTTLE GT SCH (04:38)
[2017-07-10] MEDS: PIPERACILLIN /TAZOBACTAM 2.25 G in IV NS 0.9% 50 ML IV SCH ×3 (05:19→21:00)
[2017-07-10] MEDS: BLOOD SUGAR DIAGNOSTIC 1 EACH STRIP IN SCH ×4 (05:19→23:32)
[2017-07-10] MEDS: INSULIN REGULAR, HUMAN 100 UNIT/ML 3 ML VIAL SQ PRN ×4 (05:20→23:33)
--- NOTE | 2017-07-10 05:22 | NUR ---
MOTHERCRAFT NURSE NOTES: BLOOD SUGAR WAS 222. 4 UNITS OF INSULIN WAS ADMINISTERED. PT ON NOVASOURCE FEEDING VIA G TUBE AT 35ML/HR. WILL CONTINUE TO MONITOR PT.
--- NOTE | 2017-07-10 05:24 | NUR ---
BOTTLING LINE ATTENDANT NOTES: HAD TO MANUALLY ADMINISTER INSULIN SINCE THIS INSULIN WAS OVERRODE BY SUPERINTENDENT PIER.
--- NOTE | 2017-07-10 08:00 | NUR ---
TELE/RN AM NOTES RECEIVED PT LYING IN BED. PT IS AWAKE, NON-VERBAL VENT/TRACH DEPENDENT WITH SETTINGS ORDERED. BREATHING EVEN AND UNLABORED. NO SOB, RESPIRATORY DISTRESS OR S/S OF PAIN NOTED AT THIS TIME.ON TELE WITH SINUS RHYTHM HR 92. PT. WITH LEFT HAND 22 GAUGE PERIPHERAL IV PRESENT, PATENT AND INTACT. PT. WITH RIGHT FEMORAL KAYLA CATHETER PRESENT AND INTACT.ON GT FEEDING OF NOVASOURCE RENAL RUNNING AT 35 ML/HR TOLERATING WELL WITH NO RESIDUALS NOTED.HOB KEPT ELEVATED.BED LOCKED AND IN LOWEST POSITION, SIDE RAILS UP X3, BED ALARM ON, WILL CONTINUE TO MONITOR.
[2017-07-10] MEDS: PROSOURCE / PROSTAT (PYXIS) 30 ML UDC GT SCH ×2 (08:24→17:53)
[2017-07-10] MEDS: LEVETIRACETAM SOL (5 ML) 100 MG/ML UDC GT SCH ×2 (08:24→20:06)
[2017-07-10] MEDS: VIT B CMPLX 3/FA/VIT C/BIOTIN 1 TAB TABLET GT SCH (08:25)
[2017-07-10] MEDS: Z GUARD REMEDY 2 OZ OINT TP SCH (08:26)
[2017-07-10] MEDS: HYDROGEL DRESSING 90 GM TUBE TP SCH (08:26)
[2017-07-10] MEDS: PANTOPRAZOLE 40 MG VIAL IV SCH (17:52)
--- NOTE | 2017-07-10 18:52 | NUR ---
PT RESTING COMFORTABLY IN BED WITH NO SOB ON MECH VENT.SUCTIONED SECRETIONS PRN AND KEPT CLEAN AND DRY.TOLERATED GT FEEDING AT 35 ML/HR WITHOUT RESIDUALS NOTED.HOB ELEVATED.
--- NOTE | 2017-07-10 19:15 | NUR ---
UROLOGIST PHYSICIAN OPENING NOTES: RECEIVED PT IN BED WITH HOB ELEVATED. PT OPENS EYES AND IS NON-VERBAL. PT ON PORTEX #7, AC 2, TV 500, FIO2 40%, AND PEEP 5. PT ON TELE BOX. PT HAS L HAND #20G AND IS PATENT AND INTACT. CURRENTLY S/L. PT ALSO HAS R FEMORAL KAYLA CATH. PT HAS G TUBE NOTED. 5 ML OF RESIDUAL NOTED. PT TO BE RESUMED BACK TO FEEDING NOVASOURCE AT 35ML/HR. CALL LIGHT WITHIN PT'S REACH. BED KEPT IN LOW, LOCKED POSITION, AND SIDE RAILS X 2UP. WILL CONTINUE TO MONITOR PT.
--- NOTE | 2017-07-10 23:34 | NUR ---
DEICER ELEMENT WINDER MACHINE NOTES: BLOOD SUGAR WAS 245. 4 UNITS OF INSULIN WAS ADMINISTERED.
[2017-07-11] VITALS (7 sets, daily range): BP systolic 90–121; BP diastolic 53–71
[2017-07-11] MEDS: RENAL NOVASOURCE 1,000 ML BOTTLE GT SCH (05:10)
[2017-07-11] MEDS: PIPERACILLIN /TAZOBACTAM 2.25 G in IV NS 0.9% 50 ML IV SCH ×2 (05:10→13:18)
[2017-07-11] MEDS: BLOOD SUGAR DIAGNOSTIC 1 EACH STRIP IN SCH ×4 (05:10→23:22)
[2017-07-11] MEDS: INSULIN REGULAR, HUMAN 100 UNIT/ML 3 ML VIAL SQ PRN ×4 (05:17→23:27)
--- NOTE | 2017-07-11 05:18 | NUR ---
TRADE SALES ASSISTANT NOTES: BLOOD SUGAR WAS 316. 8 UNITS OF INSULIN WAS ADMINISTERED. PT ON NOVASOURCE FEEDING VIA G TUBE 35M/HR. WILL CONTINUE TO MONITOR PT.
--- NOTE | 2017-07-11 05:34 | NUR ---
RECEIVED PT TRACHED ON VENT ON MD ORDERED SETTINGS. VENT/ ALARMS WELL FUNCTIONING WITH AMBU BAG AT BEDSIDE. NO SOB/ DISTRESS NOTED/ SX'D Q2 +PRN FOR MOD THICK YELLOW SECRETIONS. NO SOB NOTED POST SX. Addendum: 07/11/17 at 0536 by MELANIE CORBIN RT Amended: Links added.
--- NOTE | 2017-07-11 07:38 | NUR ---
SHRIMP CLEANER CLOSING NOTES: ALL NEEDS WERE ATTENDED AND ANTICIPATED FOR. PT ON G TUBE FEEDING AND TOLERATING WELL. 5ML OF RESIDUAL NOTED. HAS BEEN FLUSHED. PT ON NOVASOURCE 35ML/HR. PT HAS IV ON L HAND AND IS PATENT AND INTACT. CURRENTLY S/L. PT ALSO HAS R FEMORAL KAYLA CATH NOTED. PT SUCTIONED PRN. PT KEPT CLEAN, DRY, AND COMFORTABLE. PT ON TELE BOX AND READING SHOWS SR. BED KEPT IN LOW, LOCKED POSITION, AND SIDE RAILS X 2 UP. ENDORSED TO AM NURSE FOR SHERRY.
--- NOTE | 2017-07-11 07:55 | NUR ---
DRYWALL SANDER: INITIAL NOTE RECEIVED NON VERBAL. ON MECHANICAL VENT. SETTING INCLUDE PORTEX 7, FIO2 40%, AC 2, PEEP 5, TV 500. ON TELE SR AT 82 BPM. ANURIC. ON DIALYSIS. SCHEDULED FOR DIALYSIS TODAY. ON G-TUBE FEEDING NOVASOURCE RUNNING AT 35ML/HR. L HAND #20 HL. NO IV FLUIDS RUNNING. R FEMORAL KAYLA CATH IN PLACE. DRESSING INTACT. NO DISTRESS NOTED. NO SOB NOTED. NO PAIN NOTED USING FLACC SCALE. RESTING COMFORTABLY IN BED. CALL LIGHT WITHIN REACH.
[2017-07-11] MEDS: VIT B CMPLX 3/FA/VIT C/BIOTIN 1 TAB TABLET GT SCH (08:23)
[2017-07-11] MEDS: LEVETIRACETAM SOL (5 ML) 100 MG/ML UDC GT SCH ×2 (08:23→20:35)
[2017-07-11] MEDS: PROSOURCE / PROSTAT (PYXIS) 30 ML UDC GT SCH ×2 (08:23→17:03)
[2017-07-11] MEDS: Z GUARD REMEDY 2 OZ OINT TP SCH (08:24)
[2017-07-11] MEDS: HYDROGEL DRESSING 90 GM TUBE TP SCH (08:24)
--- NOTE | 2017-07-11 10:53 | NUR ---
DIALYSIS COMPLETE FOR CLEANING ONLY. NO OUTPUT.
--- NOTE | 2017-07-11 16:01 | NUR ---
RECEIVED PT TRACHED ON MECHANICAL VENT PER MD ORDERS. VENT ALARMS FUNCTIONING WELL. AMBU BAG AT BEDSIDE. SUCTIONED MOD YELLOW THICK SECRETIONS. BREATH SOUNDS BILATERAL COARSE. WILL CONTINUE TO MONITOR PT. Addendum: 07/11/17 at 1603 by KELLY BAKER RT Amended: Links added.
--- NOTE | 2017-07-11 16:26 | NUR ---
PT ON CONTACT ISOLATION DUE TO ESBL OF WOUND.
[2017-07-11] MEDS ORDERED: DOSE PER PHARMACY (MD SPECIFY MEDICATION) 1 EA XX PRN (16:30)
--- NOTE | 2017-07-11 16:32 | NUR ---
PER DR LLOYD TO ORDER MEROPENEM PER PHARMACY TO DOSE. D/C ZOSYN DUE TO RESISTANCE TO ESBL OF WOUND.
[2017-07-11] MEDS ORDERED: MEROPENEM 500 MG in IV NS 0.9% 50 ML IV SCH (17:00)
[2017-07-11] MEDS: PANTOPRAZOLE 40 MG VIAL IV SCH (17:01)
--- NOTE | 2017-07-11 18:41 | NUR ---
CAREER MANAGER: CLOSING NOTE PT ADMINISTERED ALL MEDICATIONS ON TIME. NO ADVERSE REACTIONS NOTED. GIVEN THROUGH G-TUBE. SITE CLEAR AND PATENT. G-TUBE FEEDING RUNNING NOVASOURCE AT 35ML/HR. SITE CLEAR AND PATENT. ON MECHANICAL VENTILATOR. SETTINGS INCLUDE PORTEX 7, AC 2 TV 500, FIO2 40%, PEEP 5. NONVERBAL. OPEN EYES. ON TELE MONITORING SR AT 84 BPM. WOUND CARE DONE ORDERED. ANURIC. L HAND #22 HL. R FEMORAL KAYLA CATH. DRESSING PIN PLACE. DIALYSIS DONE TODAY. NO OUTPUT. JUST CLEANSING. INSULIN GIVEN PER SLIDING SCALE. TURNED AND REPOSITIONED Q2 HOURS. RESTING COMFORTABLY IN BED. ON CONTACT ISOLATION FOR ESBL OF WOUND.
--- NOTE | 2017-07-11 19:15 | NUR ---
COMMERCIAL LINES ACCOUNT MANAGER NOTES RECEIVED ON BED,ON RIGHT SIDE POSITION,ON TRACH TO VENT AC-2,TV-500,FIO2-40%,PEEP-5,PORTEX#7 TOLERATED WELL.OPEN EYES,NON VERBAL,ANURIC,ON DIALYSIS TX.WITH RIGHT FEMORAL WUINTON CATH FOR HD ACCESS.WITH LEFT HAND SALINE LOCK #20 FOR MEDS.WITH GT FEEDING OF NOVASOURCE AT 35ML/HR RATE TOLERATED WELL.ISOLATION STATUS WAS DISCONTINUE BY ID,ESBL WOUND WAS COLONIZED.WILL CONTINUE TO MONITOR STATUS.
--- NOTE | 2017-07-11 19:18 | NUR ---
per tom infectious disease to d/c contact isolation due to colonization of esbl in wound.
--- NOTE | 2017-07-11 21:00 | NUR ---
WELL TENDER NOTES DUE RADHA 1GM /GT ADMINISTERED
--- NOTE | 2017-07-11 23:34 | NUR ---
BLIND TEACHER NOTES ACCU-CHECK BLOOD SUGAR CHECK 277,COVERED WITH HUMULIN R 6 UNITS PER SLIDING SCALE.
[2017-07-12] VITALS (8 sets, daily range): BP systolic 107–151; BP diastolic 61–85
--- NOTE | 2017-07-12 04:00 | NUR ---
BOTTOM SAW OPERATOR NOTES MORNING CARE RENDERED,TOLERATED WELL
[2017-07-12] MEDS: RENAL NOVASOURCE 1,000 ML BOTTLE GT SCH (05:05)
[2017-07-12] MEDS: BLOOD SUGAR DIAGNOSTIC 1 EACH STRIP IN SCH ×3 (05:06→17:33)
[2017-07-12] MEDS: INSULIN REGULAR, HUMAN 100 UNIT/ML 3 ML VIAL SQ PRN ×3 (05:11→18:16)
--- NOTE | 2017-07-12 05:15 | NUR ---
CARPENTERS NOTES ACCU-CHECK BLOOD SUGAR CHECK 281,COVERED WITH HUMULIN R 6 UNITS PER SLIDING SCALE.
--- NOTE | 2017-07-12 06:30 | NUR ---
NATURAL DEVELOPER NOTES NO SIGNIFICANT CHANGE IN STATUS.GT FEEDING TOLERATED WELL.REPOSITION TO COMFORT,SUCTION MUCUS NEEDED.IN NO ACUTE DISTRESS.WILL ENDORSE TO DAY NURSE FOR SHERRY.
[2017-07-12 06:36] LABS: BASOPHILS % (AUTO) 0.4 % (0.0-2.0); EOSINOPHILS # (AUTO) 0.4 /CMM (0.0-0.7); EOSINOPHILS % (AUTO) 5.3 % (0.0-6.0); HEMATOCRIT 22 % (33-45); HEMOGLOBIN 7.7 g/dL (11.5-14.8); LYMPHOCYTES # (AUTO) 1.1 /CMM (0.8-4.8); LYMPHOCYTES % (AUTO) 13.7 % (20.0-44.0); MEAN CORPUSCULAR HEMOGLOBIN 33 PG (26.0-33.0); MEAN CORPUSCULAR HGB CONC 35 g/dl (31.0-36.0); MEAN CORPUSCULAR VOLUME 96 fL (82-100); MONOCYTES # (AUTO) 0.5 /CMM (0.1-1.30); MONOCYTES % (AUTO) 5.9 % (2.0-12.0); NEUTROPHILS # (AUTO) 6.2 /CMM (1.8-8.9); NEUTROPHILS % (AUTO) 74.7 % (43.0-81.0); PLATELET COUNT (AUTO) 220 /CMM (150-450); RDW COEFFICIENT OF VARIATION 17.8 (11.5-15.0); RED BLOOD CELL COUNT(AUTO) 2.32 MIL/uL (4.0-5.2); WHITE BLOOD COUNT (AUTO) 8.3 K/uL (4.3-11.0)
[2017-07-12 07:08] LABS: CALCIUM, SERUM 9.5 mg/dL (8.5-10.1); CREATININE 7.3 mg/dL (0.6-1.3); MAGNESIUM 2.3 mg/dL (1.8-2.4); PHOSPHORUS 3.7 mg/dL (2.5-4.9); POTASSIUM 3.5 mmol/L (3.5-5.1)
[2017-07-12] MEDS: LEVETIRACETAM SOL (5 ML) 100 MG/ML UDC GT SCH ×2 (09:12→20:12)
[2017-07-12] MEDS: PROSOURCE / PROSTAT (PYXIS) 30 ML UDC GT SCH ×2 (09:12→17:40)
[2017-07-12] MEDS: VIT B CMPLX 3/FA/VIT C/BIOTIN 1 TAB TABLET GT SCH (09:12)
[2017-07-12] MEDS: Z GUARD REMEDY 2 OZ OINT TP SCH (09:13)
[2017-07-12] MEDS: HYDROGEL DRESSING 90 GM TUBE TP SCH (09:13)
--- NOTE | 2017-07-12 10:40 | NUR ---
MS RN RECEIVED ON BED,NON VERBAL,VENT DEPENDENT PATIENT, AWAKE,NOT IN ANY FORM OF DISTRESS, RESPIRATIONS EVEN AND UNLABORED,NO SOB NOTED, LUNGS ARE CLEAR,ABDOMEN SOFT,POSITIVE BOWEL SOUNDS, DENIES PAIN AT THIS TIME, WILL MONITOR PATIENT'S CONDITION,ALL NEEDS ATTENDED.
--- NOTE | 2017-07-12 11:00 | NUR ---
ms rn was seen by dr. filippo suero/ orders made and carried out.
--- NOTE | 2017-07-12 11:21 | NUR ---
REPORT GIVEN TO VIET FOR SHERRY
[2017-07-12] MEDS ORDERED: FEE PK DOSING 1 MIN EA MC ONE (14:56)
[2017-07-12] MEDS ORDERED: VANCOMYCIN 500 MG in IV D5W 100 ML IV PRN (15:00)
--- NOTE | 2017-07-12 15:26 | NUR ---
RT NOTE: PATIENT RECEIVED TRACHED ON PB 840 VENT. SETTING PER MD ORDER. ALARMS VERIFIED AND AUDIBLE. SUCTIONED AND LAVAGED THICK GALDAMEZ SECRETIONS. VENT PLUGGED INTO RED OUTLET. AMBU BAG AT [facility].
[2017-07-12] MEDS ORDERED: VANCOMYCIN 1 GM in IV D5W 250 ML IV ONE (16:00)
[2017-07-12] MEDS: MEROPENEM 500 MG in IV NS 0.9% 50 ML IV SCH (17:33)
[2017-07-12] MEDS: PANTOPRAZOLE 40 MG VIAL IV SCH (17:40)
--- NOTE | 2017-07-12 18:49 | NUR ---
ms rn on bed,no change of condition ,all needs attended.
--- NOTE | 2017-07-12 19:30 | NUR ---
RT NOTE PATIENT RECEIVED IN STABLE CONDITION ON MECHANICAL VENT. PATIENT IS TOLERATING CURRENT ORDERED VENT SETTINGS. NO SIGNS OF RESPIRATORY DISTRESS NOTED. TRACH TUBE IS PATENT AND SECURE. ALARMS ARE SET AND AUDIBLE. MECHANICAL VENT IS PLUGGED INTO RED OUTLET. AMBU BAG IS AT PATIENT BEDSIDE.
--- NOTE | 2017-07-12 19:30 | NUR ---
SEMICONDUCTOR TESTING GROUP LEADER NOTE RECEIVED PATIENT IN STABLE CONDITION. NO RESPIRATORY DISTRESS NOTED. VENT IN PLACE WITH CORRECT SETTINGS. GTUBE IN PLACE WITH FEEDING RUNNING ORDERED. GTUBE SITE CLEAN, WITH NO S/S OF INFECTION NOTED. IV SITE INTACT, WITH FLUIDS RUNNING ORDERED. NO S/S OF INFILTRATION NOTED. BED LOCKED AND IN LOWEST POSITION. SIDE RAILS UP, CALL LIGHT WITHIN REACH. WILL CONTINUE TO MONITOR.
--- NOTE | 2017-07-12 19:34 | NUR ---
RT NOTE PATIENT RECEIVED IN STABLE CONDITION ON MECHANICAL VENT. PATIENT IS TOLERATING CURRENT ORDERED VENT SETTINGS. NO SIGNS OF RESPIRATORY DISTRESS NOTED. TRACH TUBE IS PATENT AND SECURE. ALARMS ARE SET AND AUDIBLE. MECHANICAL VENT IS PLUGGED INTO RED OUTLET. AMBU BAG IS AT PATIENT BEDSIDE. Addendum: 07/12/17 at 2015 by THOR JOHNSON RT Amended: Links added.
[2017-07-13] VITALS: BP 90/53
[2017-07-13] MEDS: BLOOD SUGAR DIAGNOSTIC 1 EACH STRIP IN SCH ×5 (00:10→23:47)
[2017-07-13] MEDS: INSULIN REGULAR, HUMAN 100 UNIT/ML 3 ML VIAL SQ PRN ×5 (00:11→23:00)
--- NOTE | 2017-07-13 00:18 | NUR ---
EQUIPMENT OPERATOR WAREHOUSE NOTE BLOOD SUGAR 330. 8 UNITS OF REGULAR INSULIN GIVEN PER SLIDING SCALE.
[2017-07-13] MEDS: MEROPENEM 500 MG in IV NS 0.9% 50 ML IV SCH ×2 (03:42→15:13)
[2017-07-13 04:00] VITALS: BP 112/71
--- NOTE | 2017-07-13 06:03 | NUR ---
SHOP ESTIMATOR NOTE BLOOD SUGAR 279. 6 UNITS OF REGULAR INSULIN GIVEN PER SLIDING SCALE.
--- NOTE | 2017-07-13 06:04 | NUR ---
MANIPULATIVE THERAPY SPECIALIST NOTE PATIENT STABLE. VENT IN PLACE WITH SETTINGS ORDERED. KEPT CLEAN, DRY AND COMFORTABLE. GTUBE IN PLACE WITH FEELING RUNNING ORDERED. IV SITE INTACT. WILL ENDORSE TO DAY SHIFT FOR SHERRY.
[2017-07-13 06:50] LABS: BASOPHILS % (AUTO) 0.3 % (0.0-2.0); EOSINOPHILS # (AUTO) 0.5 /CMM (0.0-0.7); EOSINOPHILS % (AUTO) 5.2 % (0.0-6.0); HEMATOCRIT 23 % (33-45); LYMPHOCYTES # (AUTO) 1.5 /CMM (0.8-4.8); LYMPHOCYTES % (AUTO) 16.8 % (20.0-44.0); MEAN CORPUSCULAR HEMOGLOBIN 33 PG (26.0-33.0); MEAN CORPUSCULAR HGB CONC 35 g/dl (31.0-36.0); MEAN CORPUSCULAR VOLUME 95 fL (82-100); MONOCYTES # (AUTO) 0.5 /CMM (0.1-1.30); NEUTROPHILS # (AUTO) 6.4 /CMM (1.8-8.9); NEUTROPHILS % (AUTO) 71.7 % (43.0-81.0); PLATELET COUNT (AUTO) 221 /CMM (150-450); RDW COEFFICIENT OF VARIATION 17.1 (11.5-15.0); RED BLOOD CELL COUNT(AUTO) 2.43 MIL/uL (4.0-5.2)
--- NOTE | 2017-07-13 07:25 | NUR ---
OUTSIDE OPERATOR NOTES PATIENT RECEIVED RESTING INSIDE ROOM, BREATHING EVEN AND UNLABORED. NO SOB OR ACUTE DISTRESS NOTED. PATIENT AFEBRILE, SKIN DRY AND WARM TO TOUCH. NO CHANGES IN LOC NOTED AT THIS TIME. NO FACIAL GRIMACE OR ANY INDICATION OF PAIN NOTED AT THIS TIME. GT PATENT AND INTACT WITH [employer] AT 35CC/HR. MAINTAINED ASPIRATION PRECAUTION. WILL CONTINUE TO MONITOR. BILATERAL UPPER SIDE RAILS UP AND LOCKED. BED LOCKED AND IN LOW POSITION. CALL LIGHT WITHIN EASY REACH
[2017-07-13 07:34] LABS: CALCIUM, SERUM 9.9 mg/dL (8.5-10.1); MAGNESIUM 2.5 mg/dL (1.8-2.4); PHOSPHORUS 4.3 mg/dL (2.5-4.9); POTASSIUM 3.5 mmol/L (3.5-5.1)
[2017-07-13 07:36] LABS: CREATININE 8.8 mg/dL (0.6-1.3)
[2017-07-13 08:00] VITALS: BP 100/67
[2017-07-13] MEDS: PROSOURCE / PROSTAT (PYXIS) 30 ML UDC GT SCH ×2 (08:44→17:06)
[2017-07-13] MEDS: VIT B CMPLX 3/FA/VIT C/BIOTIN 1 TAB TABLET GT SCH (08:44)
[2017-07-13] MEDS: LEVETIRACETAM SOL (5 ML) 100 MG/ML UDC GT SCH ×2 (08:44→21:12)
[2017-07-13] MEDS: Z GUARD REMEDY 2 OZ OINT TP SCH (08:45)
[2017-07-13] MEDS: HYDROGEL DRESSING 90 GM TUBE TP SCH (08:45)
[2017-07-13 12:00] VITALS: BP_SYST 100; BP_SYST 117; BP_DIAS 67; BP_DIAS 71
--- NOTE | 2017-07-13 15:00 | NUR ---
ABALONE DIVER NOTES PATIENT S/P HD WITH 1000cc TAKEN. PATIENT REMAINS AFEBRILE, SKIN DRY AND WARM TO TOUCH. NO CHANGES IN LOC NOTED. WILL CONTINUE TO MONITOR
[2017-07-13] MEDS: LACTOBACILLUS RHAMNOSUS GG 1 EACH CAP.SPRINK PO SCH (17:06)
[2017-07-13] MEDS: PANTOPRAZOLE 40 MG VIAL IV SCH (17:06)
--- NOTE | 2017-07-13 18:54 | NUR ---
DIRECTOR STYLE NOTES PATIENT RESTING INSIDE ROOM, SLEEPING, BREATHING EVEN AND UNLABORED. NO CHANGES IN LOC NOTED AT THIS TIME. PATIENT REMAINS AFEBRILE, SKIN DRY AND WARM TO TOUCH. IV SITE ON RIGHT HAND. NO SWELLING OR BLEEDING NOTED AT THIS TIME. GT IN PLACE, PATENT AND INTACT. ONGOING GTF OF [employer] RENAL AT 35CC/HR. WILL CONTINUE TO MONITOR. MAINTAINED ASPIRATION PRECAUTION. PATIENT KEPT CLEAN, DRY AND COMFORTABLE. PROVIDED WITH CALM, SAFE, HAZARD-FREE ENVIRONMENT. CALL LIGHT PLACED WITHIN EASY REACH. WILL ENDORSE TO INCOMING SHIFT
--- NOTE | 2017-07-13 19:30 | NUR ---
DEMOLITION ENGINEER NOTES PATIENT RESTING INSIDE ROOM, SLEEPING, BREATHING EVEN AND UNLABORED. NO CHANGES IN LOC NOTED AT THIS TIME. PATIENT REMAINS AFEBRILE, SKIN DRY AND WARM TO TOUCH. IV SITE ON RIGHT HAND. NO SWELLING OR BLEEDING NOTED AT THIS TIME. GT IN PLACE, PATENT AND INTACT. ONGOING GTF OF [employer] RENAL AT 35CC/HR. WILL CONTINUE TO MONITOR. ASPIRATION PRECAUTIONS IN PLACE. BED LOCKED AND IN LOWEST POSITION. SIDE RAILS UP. WILL CONTINUE TO MONITOR.
[2017-07-13 20:00] VITALS: BP 104/55
--- NOTE | 2017-07-13 20:05 | NUR ---
RCVD PT ON VENT WITH NOTED SETTINGS. VENT PLUGGED INTO RED OUTLET, VENT ALARM WORKING AND AUDIBLE, AMBU BAG AT BEDSIDE. SUCTIONED MODERATE PALE YELLOW THICK SECRETIONS .NO RESPIRATORY DISTRESS AT THIS TIME. WILL CONTINUE TO MONITOR THE PT.
[2017-07-14] VITALS: BP 109/59
[2017-07-14] MEDS: MEROPENEM 500 MG in IV NS 0.9% 50 ML IV SCH ×2 (03:43→15:20)
[2017-07-14 04:00] VITALS: BP 129/73
[2017-07-14] MEDS: BLOOD SUGAR DIAGNOSTIC 1 EACH STRIP IN SCH ×3 (05:26→18:26)
[2017-07-14] MEDS: INSULIN REGULAR, HUMAN 100 UNIT/ML 3 ML VIAL SQ PRN ×3 (06:05→18:26)
--- NOTE | 2017-07-14 06:07 | NUR ---
DEMETRIA RN NOTE PATIENT STABLE. VENT IN PLACE WITH SETTINGS ORDERED. KEPT CLEAN, DRY AND COMFORTABLE. GTUBE IN PLACE WITH FEELING RUNNING ORDERED. IV SITE INTACT. BLOOD SUGAR 360. 10 UNITS OF INSULIN GIVEN. WILL ENDORSE TO DAY SHIFT FOR SHERRY.
[2017-07-14 07:39] LABS: CALCIUM, SERUM 7.5 mg/dL (8.5-10.1); CREATININE 6.8 mg/dL (0.6-1.3); POTASSIUM 3.7 mmol/L (3.5-5.1)
--- NOTE | 2017-07-14 08:00 | NUR ---
tele porter baggage: initial assessment received pt in bed with eyes close, non-verbal, vent dependent. tracheostomy intact and secured at midline. suctioned prn. turned and repositioned. kept comfortable. tolerating g-tube feeding with no residual obtained. tele sr. will continue to monitor.
[2017-07-14 08:24] VITALS: BP 93/48
[2017-07-14] MEDS: VIT B CMPLX 3/FA/VIT C/BIOTIN 1 TAB TABLET GT SCH (08:51)
[2017-07-14] MEDS: LACTOBACILLUS RHAMNOSUS GG 1 EACH CAP.SPRINK PO SCH ×2 (08:51→17:03)
[2017-07-14] MEDS: LEVETIRACETAM SOL (5 ML) 100 MG/ML UDC GT SCH ×2 (08:51→20:10)
[2017-07-14] MEDS: HYDROGEL DRESSING 90 GM TUBE TP SCH (08:52)
[2017-07-14] MEDS: Z GUARD REMEDY 2 OZ OINT TP SCH (08:52)
[2017-07-14] MEDS: PROSOURCE / PROSTAT (PYXIS) 30 ML UDC GT SCH ×2 (08:53→17:03)
--- NOTE | 2017-07-14 10:00 | NUR ---
tele drop count associate: notes am care rendered. turned and repositioned. will continue to monitor.
--- NOTE | 2017-07-14 11:00 | NUR ---
tele flight engineer instructor: notes hd tx started at this time. will continue to monitor.
[2017-07-14 12:00] VITALS: BP 126/80
--- NOTE | 2017-07-14 14:00 | NUR ---
m/s assisted living housekeeper: notes hd tx completed with 700ml uf per ivan (nurse). no distress noted. pt for d'c back to snf today. awaiting for case management to make arrangement. will continue to monitor.
--- NOTE | 2017-07-14 14:43 | NUR ---
tele premium note interest calculator clerk: notes leoncio (daughter) notified re: d'c back to snf today, left message via answering machine.
--- NOTE | 2017-07-14 14:50 | NUR ---
tele anchor tack puller: notes report given to [facility], spoke to hardy (rn) for continuity of care. eta [id number].
--- NOTE | 2017-07-14 15:00 | NUR ---
tele production crew supervisor: notes pt unable to sign d'c papers due to vent dependent and cognitive impairment. 2 licensed staff signed all d'c papers. will continue to monitor.
[2017-07-14 15:14] VITALS: BP 118/76
--- NOTE | 2017-07-14 15:30 | NUR ---
tele land survey technician: notes all d'c photos taken and placed in chart. tx done as ordered to wounds.
--- NOTE | 2017-07-14 16:20 | NUR ---
tele director community center: notes suzanne notified, spoke to ray and informed her re: eta change to [phone].
[2017-07-14] MEDS: PANTOPRAZOLE 40 MG VIAL IV SCH (17:03)
--- NOTE | 2017-07-14 17:20 | NUR ---
RT NOTE PATIENT RECEIVED ON MECHANICAL VENTILATION WITH SETTINGS OF AC 12, 500, +5, 40%. PORTEX 8 TRACH IS SECURED AND IN PLACE. SUCTION DONE T/O SHIFT. VENT PLUG IS PLUGGED INTO RED OUTLET. AMBU BAG @ BEDSIDE. ALARMS ON AND AUDIBLE. PATIENT STABLE T/O SHIFT, NO DISTRESS NOTED. HME REPLACED AT END OF SHIFT. Addendum: 07/14/17 at 1722 by KEVIN DANIEL RT Amended: Links added.
--- NOTE | 2017-07-14 18:25 | NUR ---
tele decoration checker: notes bs [id number]. held insulin coverage, pt for d'c to snf tonight. g-tube clamped and flushed with 30ml of water. awaiting for ambulance to moss picker the pt. needs attended. will continue to monitor.
--- NOTE | 2017-07-14 19:20 | NUR ---
tele regional clinical research associate: notes still awaiting for ambulance to case picker pt. report given to beny (rn) for continuity of care and endorse to remove iv and tele monitor. will continue to monitor.
--- NOTE | 2017-07-14 19:30 | NUR ---
CHARCOAL UNLOADER NOTES: RECEIVED PT IN BED AND IS ON VENT/ TRACH. PORTEX 7 ; SETTINGS ARE AC 12, TV 500, FIO2 40%, PEEP 5. PT OPENS EYES. PT NONVERBAL. PT ON TELE BOX. PT HAS G TUBE AND IS PATENT AND INTACT. HAS BEEN FLUSHED. PT HAS R HAND #22G AND IS PATENT AND INTACT. PT ALSO HAS R FEMORAL KAYLA CATH. CALL CALL LIGHT WITHIN PT'S REACH. BED KEPT IN LOW, LOCKED POSITION, AND SIDE RAILS X 2UP. AWAITING FOR DISCHARGE. WILL CONTINUE TO MONITOR PT.
--- NOTE | 2017-07-14 21:57 | NUR ---
WASH WORKER NOTES: AMBULANZ 2 STUDENT LIFE ADVISOR AND 1 RT AT BEDSIDE. IV HEPLOCK REMOVED. TELE BOX TAKEN OFF AND BROUGHT TO ENERGY AUDITOR. PT READY FOR DISCHARGE.
--- NOTE | 2017-07-14 22:07 | NUR ---
LEAD TINNER NOTES: PT [facility] IN STABLE [facility]
== END 2017-07-14 22:00 | DRG 356 ==
LOC: ER 12:01 → TELE 13:32
PROVIDERS: ADMIT Internal Medicine; ATTEND Internal Medicine
PROC: 5A1955Z Respiratory Ventilation, Greater than 96 Consecutive Hours (ICD-10-PCS; principal; 2017-07-07)
PROC: 5A1D70Z Performance of Urinary Filtration, Intermittent, Less than 6 Hours Per Day (ICD-10-PCS; 2017-07-07)
PROC: 0DH63UZ Insertion of Feeding Device into Stomach, Percutaneous Approach (ICD-10-PCS; 2017-07-08)
PROC: 0HB7XZZ Excision of Abdomen Skin, External Approach (ICD-10-PCS; 2017-07-08)
PROC: 0JB70ZZ Excision of Back Subcutaneous Tissue and Fascia, Open Approach (ICD-10-PCS; 2017-07-09)
PROC: 5A1D70Z Performance of Urinary Filtration, Intermittent, Less than 6 Hours Per Day (ICD-10-PCS; 2017-07-09)
PROC: 5A1D70Z Performance of Urinary Filtration, Intermittent, Less than 6 Hours Per Day (ICD-10-PCS; 2017-07-11)
PROC: 5A1D70Z Performance of Urinary Filtration, Intermittent, Less than 6 Hours Per Day (ICD-10-PCS; 2017-07-13)
PROC: 5A1D70Z Performance of Urinary Filtration, Intermittent, Less than 6 Hours Per Day (ICD-10-PCS; 2017-07-14)
DX: K94.23 Gastrostomy malfunction (principal); G93.40 Encephalopathy, unspecified; Z99.11 Dependence on respirator [ventilator] status; J15.6 Pneumonia due to other Gram-negative bacteria; J96.11 Chronic respiratory failure with hypoxia; I96 Gangrene, not elsewhere classified; J15.9 Unspecified bacterial pneumonia; K31.6 Fistula of stomach and duodenum; L89.154 Pressure ulcer of sacral region, stage 4; N18.6 End stage renal disease; R53.2 Functional quadriplegia; I12.0 Hypertensive chronic kidney disease with stage 5 chronic kidney disease or end stage renal disease; J98.11 Atelectasis; E11.52 Type 2 diabetes mellitus with diabetic peripheral angiopathy with gangrene; E44.1 Mild protein-calorie malnutrition; E78.5 Hyperlipidemia, unspecified; K21.9 Gastro-esophageal reflux disease without esophagitis; I25.10 Atherosclerotic heart disease of native coronary artery without angina pectoris; Z99.2 Dependence on renal dialysis; Z93.0 Tracheostomy status; Z87.01 Personal history of pneumonia (recurrent); R62.7 Adult failure to thrive; Z79.4 Long term (current) use of insulin; E11.22 Type 2 diabetes mellitus with diabetic chronic kidney disease; R13.10 Dysphagia, unspecified; D64.9 Anemia, unspecified; G40.909 Epilepsy, unspecified, not intractable, without status epilepticus; E83.9 Disorder of mineral metabolism, unspecified; L89.620 Pressure ulcer of left heel, unstageable; L89.610 Pressure ulcer of right heel, unstageable; L89.891 Pressure ulcer of other site, stage 1; D72.829 Elevated white blood cell count, unspecified; Y84.9 Medical procedure, unspecified as the cause of abnormal reaction of the patient, or of later complication, without mention of misadventure at the time of the procedure; Y73.8 Miscellaneous gastroenterology and urology devices associated with adverse incidents, not elsewhere classified; Y92.129 Unspecified place in nursing home as the place of occurrence of the external cause; L92.9 Granulomatous disorder of the skin and subcutaneous tissue, unspecified; E87.70 Fluid overload, unspecified; F09 Unspecified mental disorder due to known physiological condition
CPT/HCPCS: 31720; 36415; 43761; 71045-TC; 76882; 80048-TC; 80053-TC; 80202-TC; 82272-TC; 82962-TC; 83540-TC; 83735-TC; 84100-TC; 85025-TC; 85610-TC; 85730-TC; 86850-TC; 87040-TC; 87070-TC; 87081-TC; 87186-TC; 88305-TC; 88312-TC; 90935-TC; 94002-TC; 94003-TC; 94760-TC; 94762-TC; 99082-TC; A4216; A4606; A6248; A6253; A6402; A6403; A6407; C9113; J0690; J1815; J1953; J2185; J2543; J2704; J3370; J3490; J7030; J7050; J7060; P9047; Q9963; Z7610

== ENCOUNTER 2017-10-21 11:10 | Inpatient (IN) | payer MEDICARE, MEDICAID ==
[~2017-10-21] VITALS: Ht 160 cm; Wt 72.1 kg
[2017-10-21] VITALS (41 sets, daily range): BP systolic 54–144; BP diastolic 21–75
[~2017-10-21 11:10] MED LIST changes: -ALBU2.5V13 IH; -ALLA266C2 TP; -AMLO5TAB2 GT; +AMLO5TAB7 GT; -EPOE1VIA4 SQ; -HYDR-4076 GT; -IPRA0.2S9 IH; +IPRA3AMP23 IH; +ONDA4TAB5 GT
--- NOTE | 2017-10-21 11:20 | NUR ---
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
[2017-10-21 11:36] LABS: BASOPHILS # (AUTO) 0.1 /CMM (0.0-0.2); BASOPHILS % (AUTO) 0.7 % (0.0-2.0); EOSINOPHILS % (AUTO) 1.4 % (0.0-6.0); HEMATOCRIT 35 % (33-45); HEMOGLOBIN 11.9 g/dL (11.5-14.8); LYMPHOCYTES # (AUTO) 1.1 /CMM (0.8-4.8); LYMPHOCYTES % (AUTO) 6.5 % (20.0-44.0); MEAN CORPUSCULAR HGB CONC 34 g/dl (31.0-36.0); MEAN CORPUSCULAR VOLUME 94 fL (82-100); MONOCYTES # (AUTO) 1.1 /CMM (0.1-1.30); MONOCYTES % (AUTO) 6.4 % (2.0-12.0); PLATELET COUNT (AUTO) 286 /CMM (150-450); RDW COEFFICIENT OF VARIATION 16.6 (11.5-15.0); RED BLOOD CELL COUNT(AUTO) 3.69 MIL/uL (4.0-5.2); WHITE BLOOD COUNT (AUTO) 17.5 K/uL (4.3-11.0)
[2017-10-21 11:46] LABS: CALCIUM, SERUM 9.4 mg/dL (8.5-10.1); CARBON DIOXIDE 26 mmol/L (21-32); CHLORIDE 94 mmol/L (98-107); CREATININE 5.4 mg/dL (0.6-1.3); GLUCOSE 206 mg/dL (74-106); POTASSIUM 3.8 mmol/L (3.5-5.1); SODIUM SERUM 135 mmol/L (136-145); UREA NITROGEN, BLOOD 60 mg/dL (7-18)
[2017-10-21 11:52] LABS: INR 0.98 (0.85-1.15)
[2017-10-21 11:54] LABS: TROPONIN I < 0.017 ng/mL (0.00-0.056)
[2017-10-21] MEDS ORDERED: IV NS 0.9% 500 ML BAG IV ONE ×2 (12:00→15:30)
[2017-10-21] MEDS ORDERED: PIPERACILLIN /TAZOBACTAM 3.375 G in IV D5W 50 ML IV ONE (12:00)
[2017-10-21] MEDS ORDERED: VANCOMYCIN 1 GM in IV D5W 250 ML IV ONE (12:00)
[2017-10-21] MEDS ORDERED: HYDR-4076 PO (12:08)
[2017-10-21] MEDS ORDERED: TRAV5DRO EACHEYE (12:08)
[2017-10-21 12:18] LABS: ALANINE AMINOTRANSFERASE 18 U/L (12-78); ALBUMIN 3.7 g/dL (3.4-5.0); ALKALINE PHOSPHATASE 219 U/L (46-116); ASPARTATE AMINOTRANSFERASE 16 U/L (15-37); BILIRUBIN,DIRECT 0.2 mg/dL (0.0-0.2); BILIRUBIN,TOTAL 1.2 mg/dL (0.2-1.0); TOTAL PROTEIN, SERUM 9.2 g/dL (6.4-8.2)
--- NOTE | 2017-10-21 12:54 | NUR ---
CALLED NURSING SUP. FOR RAJ BED
--- NOTE | 2017-10-21 13:43 | NUR ---
REPORT GIVEN TO LAWRENCE HASSAN. WILL TRANSFER WHEN [facility] ROOM IS READY.
[2017-10-21 14:29] LABS: BAND % (MANUAL) 11 % (0.0-5.0); LYMPHOCYTES % (MANUAL) 4 % (16-48); MONOCYTES % (MANUAL) 7 % (0-11.0); NEUTROPHILS % (MANUAL) 78 (42-76)
--- NOTE | 2017-10-21 14:49 | NUR ---
PT. TRANSFERRED FROM ER TO [facility] RM 101. PT USED SAME MECHANICAL VENTILATOR VIA TRACH WITH SETTINGS BELLOW: AC 12 VT 500 FIO2 40% NO PEEP VENTILATOR IS PLUGGED INTO RED OUTLET WITH ALARMS ON AND AUDIBLE. BHARGAV @ BEDSIDE. Addendum: 10/21/17 at 1453 by FLORES SAMS RT Amended: Links added.
[2017-10-21] MEDS ORDERED: ONDANSETRON HCL/PF 4 MG/2 ML VIAL IV PRN (15:30)
[2017-10-21] MEDS ORDERED: ACETAMINOPHEN 325 MG TABLET PO PRN (15:30)
[2017-10-21] MEDS ORDERED: IPRATROPIUM NEB FS 0.5 MG/2.5 ML AMPUL.NEB NEB PRN (15:30)
[2017-10-21] MEDS ORDERED: ALBUTEROL FS 2.5 MG/0.5 ML VIAL.NEB NEB PRN (15:30)
[2017-10-21] MEDS ORDERED: DEXTROSE 50%-WATER 50 ML DISP.SYRIN IV PRN (15:30)
[2017-10-21] MEDS ORDERED: FEE PK DOSING 1 MIN EA MC ONE ×2 (15:57→19:06)
[2017-10-21] MEDS ORDERED: NEPRO 1,000 ML BOTTLE GT PRN ×2 (16:00→17:00)
[2017-10-21] MEDS ORDERED: MORPHINE SULFATE INJ 4 MG/ML DISP.SYRIN IV PRN (16:00)
[2017-10-21] MEDS ORDERED: NOREPINEPHRINE 16 MG in IV D5W 500 ML IV PRN ×2 (16:30→18:00)
--- NOTE | 2017-10-21 16:45 | NUR ---
POWER BRAKE REBUILDER PT TRANSFERRED TO ICU FROM TELE BY MATT FOR HYPOTENSION. PT CAME FROM DIALYSIS CENTER TO THE ER AND ADMITTED TO TELE. PT TO BE STARTED ON LEVOPHED.
--- NOTE | 2017-10-21 17:00 | NUR ---
RN NOTE PT SEEN BY DR LLOYD, SHE ORDERED TO GIVE 500 ML BOLUS, BOLUS GIVEN BUT BP REMAINED STILL LOW, DR LLOYD CONTACTED AND GOT ORDER TO TRANSFER TO ICU ON LEVOPHED DRIP PER PROTOCOL TO KEEP MAP >65 MMHG. PT TRANSFERRED TO ROOM 253, REPORT GIVEN TO REJI MTZ RN
--- NOTE | 2017-10-21 17:00 | NUR ---
RN INITIAL NOTES RECEIVED PT FRO [facility] VIA BED. TRACH IN PLACE. VENT IN PLACE. NO RESPIRATORY DISTRESS NOTED. NO SOB NOTED. NO SIGNS OF PAIN NOTED. HOB ELEVATED. PT CONNECTED TO MONITOR. BP ON LOW 60S. WILL ADMINISTER LEVOPHED ORDERED. RH G#20 AND RIGHT FEMORAL HD CATH IN PLACE. LEFT AV SHUNT PATENT. BODY ASSESSMENT DONE. DR. LLOYD AWARE OF ADMISSION. WILL KEEP PT COMFORTABLE. WILL CONTINUE TO MONITOR.
[2017-10-21] MEDS: hydrALAZINE HCL 25 MG TABLET PO SCH ×2 (17:23→23:17)
[2017-10-21] MEDS: BLOOD SUGAR DIAGNOSTIC 1 EACH STRIP IN SCH ×2 (17:27→23:27)
[2017-10-21] MEDS: SCOPOLAMINE HBR 1 EA PATCH.TD72 TD SCH (17:28)
[2017-10-21] MEDS ORDERED: DOSING PER PHARMACY-AMIKACI IV XX PRN (19:00)
[2017-10-21] MEDS ORDERED: AMIKACIN IV PRN (19:30)
[2017-10-21] MEDS ORDERED: NS 0.9% IV PRN (19:30)
--- NOTE | 2017-10-21 19:30 | NUR ---
HEALTH PROFESSOR INITIAL NOTES RECEIVED PATIENT LETHARGIC, MOVES AND OPENS EYES TO PAIN. NON-VERBAL, VENT DEPENDENT, WITH VENT SETTINGS AC 12, VT 500, FIO2 40%, PEEP 0, SPO2 100%. TRACH C/D/I. SKIN WARM AND DRY TO TOUCH. ON MONITOR SR 73. WITH GT PATENT AND INTACT, IN PLACE, CLAMPED. WITH RH 20G PATENT AND INTACT, LEVO RUNNING AT 3MCG/MIN. RIGHT FEMORAL HD CATH INTACT. HOB ELEVATED. TURNED AND REPOSITIONED. SIDE RAILS UP AND LOCKED. BED KEPT AT LOWEST POSITION. WILL CONTINUE TO MONITOR.
[2017-10-21] MEDS ORDERED: AMIKACIN 350 MG in IV D5W 100 ML IV ONE (20:00)
--- NOTE | 2017-10-21 20:14 | NUR ---
CITY TAX AUDITOR NOTE PENDING PICC LINE PLACEMENT, PER SOD STRIPPER DR. GREEN WILL COME IN AN HOUR AND A HALF TO PLACE PICC LINE. PATIENT WITH ONE PERIPHERAL ON RIGHT HAND, ATTEMPTEDX2 TO PLACE 2ND PERIPHERAL, UNSUCCESSFUL. WILL ADMINISTER AMIKACIN WHEN PICC LINE IS PLACED.
[2017-10-21] MEDS: NOREPINEPHRINE 16 MG in IV D5W 500 ML IV PRN (20:22)
[2017-10-21] MEDS: LOSARTAN POTASSIUM 50 MG TABLET GT SCH (21:00)
[2017-10-21] MEDS ORDERED: PIPERACILLIN /TAZOBACTAM 2.25 G in IV D5W 50 ML IV SCH (21:00)
[2017-10-21] MEDS: AMLODIPINE BESYLATE 5 MG TABLET GT SCH (21:00)
[2017-10-21] MEDS: HEPARIN SODIUM, PORCINE 5000 UNITS/1 ML VIAL SQ SCH (21:00)
--- NOTE | 2017-10-21 21:20 | NUR ---
FENCE REPAIRMAN NOTE NON-ADMIN BP MEDICATIONS, PATIENT ON LEVO. NON-ADMIN HEPARIN APTT LEVEL 120, CHARGE NURSE AWARE.
[2017-10-21] MEDS: FAMOTIDINE (20 MG) 20 MG TABLET GT SCH (21:24)
[2017-10-21] MEDS: LEVETIRACETAM SOL (5 ML) 100 MG/ML UDC GT SCH (21:24)
[2017-10-21] MEDS: CHOLESTYRAMINE/ASPARTAME 4 G/PKT PACKET GT SCH (21:24)
[2017-10-21] MEDS: LATANOPROST EYE DROP 0.005% 2.5 ML BOTTLE EACHEYE SCH (21:25)
--- NOTE | 2017-10-21 23:15 | NUR ---
NEWSPAPER DISTRIBUTOR SUPERVISOR NOTE DR. GREEN AT BEDSIDE FOR PICC LINE PLACEMENT
[2017-10-21] MEDS: INSULIN REGULAR, HUMAN 100 UNIT/ML 3 ML VIAL SQ PRN (23:29)
[2017-10-22] VITALS (93 sets, daily range): BP systolic 75–129; BP diastolic 33–75
--- NOTE | 2017-10-22 00:41 | NUR ---
RELIEF COOK NOTE S/P LEFT IJ TLC PLACED BY DR. GREEN, WITH ORDER FOR STAT CXR TO CHECK PLACEMENT. NOTED, RADIOLOGY MADE AWARE.
--- NOTE | 2017-10-22 00:50 | NUR ---
BIODIESEL DIVISION MANAGER NOTE RADIOLOGY AT BEDSIDE, CXR TAKEN AND SHOWN TO DR. GREEN AT BEDSIDE. PER NORMA OK TO USE PICC LINE, LINE IS IN PLACE.
[2017-10-22] MEDS ORDERED: PIPERACILLIN /TAZOBACTAM 2.25 G VIAL IV ONE (01:00)
--- NOTE | 2017-10-22 01:03 | NUR ---
SPRAY PILOT NOTE INFORMED PHARMACY REGARDING LATE ADMINISTRATION OF ZOSYN DUE TO LACK OF IV LINE, PER PHARMACY SHE WILL ADJUST THE TIME.
[2017-10-22 04:22] LABS: BASOPHILS # (AUTO) 0.1 /CMM (0.0-0.2); BASOPHILS % (AUTO) 0.9 % (0.0-2.0); EOSINOPHILS % (AUTO) 3.1 % (0.0-6.0); HEMATOCRIT 30 % (33-45); LYMPHOCYTES # (AUTO) 1.7 /CMM (0.8-4.8); LYMPHOCYTES % (AUTO) 20.1 % (20.0-44.0); MEAN CORPUSCULAR HGB CONC 34 g/dl (31.0-36.0); MEAN CORPUSCULAR VOLUME 94 fL (82-100); MONOCYTES # (AUTO) 0.7 /CMM (0.1-1.30); MONOCYTES % (AUTO) 7.9 % (2.0-12.0); NEUTROPHILS # (AUTO) 5.8 /CMM (1.8-8.9); PLATELET COUNT (AUTO) 258 /CMM (150-450); RDW COEFFICIENT OF VARIATION 17.4 (11.5-15.0); RED BLOOD CELL COUNT(AUTO) 3.15 MIL/uL (4.0-5.2); WHITE BLOOD COUNT (AUTO) 8.5 K/uL (4.3-11.0)
[2017-10-22 04:41] LABS: CALCIUM, SERUM 9.3 mg/dL (8.5-10.1); CREATININE 6.9 mg/dL (0.6-1.3); MAGNESIUM 2.1 mg/dL (1.8-2.4); PHOSPHORUS 3.6 mg/dL (2.5-4.9); POTASSIUM 3.2 mmol/L (3.5-5.1)
--- NOTE | 2017-10-22 04:51 | NUR ---
PT REC'D TRACHED ON [facility] VENT SETTINGS CHARTED. NO RESP DISTRESS NOTED. NO CHANGES MADE THROUGHOUT SHIFT. SX'D SMALL AMT OF CLEAR SECRETIONS. AMBU BAG BEDSIDE. ALARMS ARE SET AND AUDIBLE. VENT PLUGGED INTO RED OUTLET. WILL CONTINUE TO MONITOR. Addendum: 10/22/17 at 0451 by VITOR TILLMAN RT Amended: Links added.
[2017-10-22] MEDS: BLOOD SUGAR DIAGNOSTIC 1 EACH STRIP IN SCH ×3 (05:32→17:05)
[2017-10-22] MEDS: INSULIN REGULAR, HUMAN 100 UNIT/ML 3 ML VIAL SQ PRN ×3 (05:33→17:07)
[2017-10-22] MEDS: hydrALAZINE HCL 25 MG TABLET PO SCH (05:33)
--- NOTE | 2017-10-22 07:00 | NUR ---
BUTTON BREAKER OPERATOR- RECEIVED PT RESTING IN BED. PT OPENS EYES BUT DOES NOT FOLLOW COMMANDS. VENT/TRACH PT, RESPIRATIONS EVEN AND UNLABORED, NO SOB OR DISTRESS PRESENT. BEDSIDE MONITOR REVEALS SINUS RHYTHM. G-TUBE RUNNING NEPHROVITE @ 45 ML/HR. RIGHT FEMORAL HD CATH PRESENT. LEFT IJ TLC RUNNING LEVOPHED @ 2 MCG/MIN AND NS @ TKO. WILL CONTINUE TO MONITOR.
--- NOTE | 2017-10-22 07:16 | NUR ---
FACILITY ENVIRONMENTAL TECHNICIAN CLOSING NOTE NO SIGNIFICANT CHANGES OVERNIGHT. ALL DUE MEDS GIVEN. TOLERATING VENT SETTINGS. TOLERATING GTF. NO RESPIRATORY DISTRESS NOTED. KEPT CLEAN AND DRY. TURNED AND REPOSITIONED Q2 AND PRN. HOB ELEVATED. SIDE RAILS UP AND LOCKED. BED KEPT AT LOWEST POSITION. CONTINUITY OF CARE ENDORSED TO AM NURSE.
[2017-10-22] MEDS: LOSARTAN POTASSIUM 50 MG TABLET GT SCH ×2 (08:15→21:00)
[2017-10-22] MEDS: AMLODIPINE BESYLATE 5 MG TABLET GT SCH ×2 (08:15→21:00)
--- NOTE | 2017-10-22 08:15 | NUR ---
PT RECIEVED TRACHED W A PORTEX # 7. BS WERE CLEAR BILATERALLY. SMALL AMOUNTS OF THICK WHITE SECRETIONS NOTED. VENT SETTINGS AND ALARMS ARE NOTED. VENT IS PLUGGED INTO THE RED OUTLET W BHARGAV AT BEDSIDE. PT UNABLE TO FOLLOW SIMPLE COMMANDS. Addendum: 10/22/17 at 0820 by SOPHIA RAYMOND RT Amended: Links added.
[2017-10-22] MEDS: LEVETIRACETAM SOL (5 ML) 100 MG/ML UDC GT SCH ×3 (08:25→21:13)
[2017-10-22] MEDS: FERROUS SULFATE UDC 300 MG/5 ML UDC GT SCH ×2 (08:25→08:44)
[2017-10-22] MEDS: CHOLESTYRAMINE/ASPARTAME 4 G/PKT PACKET GT SCH ×3 (08:25→21:14)
[2017-10-22] MEDS: Z GUARD REMEDY 2 OZ OINT TP SCH (08:25)
[2017-10-22] MEDS: VIT B CMPLX 3/FA/VIT C/BIOTIN 1 TAB TABLET PO SCH ×2 (08:26→08:44)
[2017-10-22] MEDS: INSULIN GLARGINE, 100 UNIT/ML CARTRIDGE SQ SCH (08:27)
[2017-10-22] MEDS: HEPARIN SODIUM, PORCINE 5000 UNITS/1 ML VIAL SQ SCH ×2 (08:37→21:15)
[2017-10-22] MEDS ORDERED: ACETAMINOPHEN 650 MG/20.3 ML UDC PO PRN (09:58)
[2017-10-22] MEDS: hydrALAZINE HCL 25 MG TABLET GT SCH ×2 (11:07→17:19)
--- NOTE | 2017-10-22 11:20 | NUR ---
CAN PUSHER- DR. SANTIAGO AT BEDSIDE. MD AWARE PT CONTINUES ON LEVOPHED GTT AT 1 MCG/MIN. INFORMED MD PT'S POTASSIUM THIS AM WAS 3.2. MD AWARE AND NO ORDERS RECEIVED FOR REPLACEMENT. WILL CONTINUE TO MONITOR.
[2017-10-22] MEDS: NOREPINEPHRINE 16 MG in IV D5W 500 ML IV PRN (12:18)
[2017-10-22] MEDS: PIPERACILLIN /TAZOBACTAM 2.25 G in IV D5W 50 ML IV SCH ×2 (12:20→21:14)
--- NOTE | 2017-10-22 12:40 | NUR ---
1240- WOUND CARE TEAM AT BEDSIDE. ORDERS OBTAINED FOR SACRAL & RIGHT HEEL WOUND DEBRIDEMENT. 1315- LEFT MESSAGE WITH PT'S DAUGHTER, SHAILESH SEGURA TO OBTAIN DEBRIDEMENT CONSENTS. WILL CONTINUE TO MONITOR.
--- NOTE | 2017-10-22 13:53 | NUR ---
KNOTTER- PT'S DAUGHTER, CLEMENTINE SEGURA RETURNED CALL. OBTAINED TELEPHONE CONSENT FOR SACRAL & RIGHT HEEL DEBRIDEMENTS. VERIFIED WITH DURGA BRAVO. PLACED IN PT'S CHART. WILL CONTINUE TO MONITOR.
[2017-10-22] MEDS ORDERED: NEPRO 1,000 ML BOTTLE GT PRN (16:00)
[2017-10-22] MEDS: LACTOBACILLUS RHAMNOSUS GG 1 EACH CAP.SPRINK GT SCH (16:12)
--- NOTE | 2017-10-22 16:30 | NUR ---
SPECIAL DELIVERY WORKER- DR. CONCEPCION AT BEDSIDE AND PERFORMED RIGHT HEEL WOUND DEBRIDEMENT. PT TOLERATED WELL. WILL CONTINUE TO MONITOR.
--- NOTE | 2017-10-22 19:00 | NUR ---
ALFALFA DEHYDRATOR OPERATOR NOTES Received patient on the ventilator ,with tracheostomy Portex #7 on AC mode,opens eyes,does not follow commands,dose not seem to be aware ,grimaces,with strong cough and gag.Breathing non labored,with copious amount of secretions.On Levophed drip for BP support via left IJ TLC ,will titrate Levophed to maintain BP.Contracted extremities,withdraws to pain.Comfort care done,needs attended.
[2017-10-22] MEDS: LATANOPROST EYE DROP 0.005% 2.5 ML BOTTLE EACHEYE SCH (21:14)
[2017-10-23] VITALS (96 sets, daily range): BP systolic 55–153; BP diastolic 26–81
--- NOTE | 2017-10-23 | NUR ---
BRANCH OPERATIONS SPECIALIST NOTES REMAINS STABLE BUT STILL NEEDS LEVOPHED FOR BLOOD PRESSURE SUPPORT.rEMAINS STUPOROUS,OPENS EYES,GRIMACES TO PAIN ,WITHDRAWS TO PAIN.NOT IN ANY DISTRESS,STILL A LOT OF SECRETIONS AROUND STOMA,TRACHE CARE DONE.
[2017-10-23] MEDS: BLOOD SUGAR DIAGNOSTIC 1 EACH STRIP IN SCH ×4 (00:53→17:48)
[2017-10-23] MEDS: INSULIN REGULAR, HUMAN 100 UNIT/ML 3 ML VIAL SQ PRN ×5 (00:57→23:52)
--- NOTE | 2017-10-23 01:00 | NUR ---
PICKLE WATER PUMP OPERATOR NOTES Attempted to wean down Levophed drip by 1 mcg but BP drop to low 90's.Back to 2 mcg/min.will cotinue to wean off as tolerated. 0200 AM care done.
--- NOTE | 2017-10-23 04:00 | NUR ---
POEM WRITER NOTES Remains stable ,not in any distress. 0600 Back care,skin care done ,had another large amount BM ,greenish ,pasty.
[2017-10-23 04:32] LABS: CALCIUM, SERUM 9.5 mg/dL (8.5-10.1); POTASSIUM 3.4 mmol/L (3.5-5.1)
[2017-10-23 04:48] LABS: CREATININE 8.6 mg/dL (0.6-1.3)
[2017-10-23] MEDS: PIPERACILLIN /TAZOBACTAM 2.25 G in IV D5W 50 ML IV SCH ×2 (04:50→12:47)
[2017-10-23] MEDS: hydrALAZINE HCL 25 MG TABLET GT SCH ×4 (06:00→17:47)
--- NOTE | 2017-10-23 06:12 | NUR ---
PT REC'D TRACHED PORTEX SZ 7 ON [facility] VENT SETTINGS CHARTED. NO RESP DISTRESS NOTED. NO CHANGES MADE THROUGHOUT SHIFT. SX'D MOD AMT OF YELLOW SECRETIONS. AMBU BAG BEDSIDE. ALARMS ARE SET AND AUDIBLE. VENT PLUGGED INTO RED OUTLET. WILL CONTINUE TO MONITOR. Addendum: 10/23/17 at 0613 by VITOR TILLMAN RT Amended: Links added.
--- NOTE | 2017-10-23 06:40 | NUR ---
WOUND CARE CONSULT WOUND CARE RECEIVED CONSULT FOR MULTIPLE WOUNDS. WOUND CARE WILL DEFER CONSULT AND ALL TREATMENT PLANS TO SURGICAL TEAM WHO ARE CURRENTLY FOLLOWING. PATIENT WITH CABRERA AT 9, 1ST STEP LOW AIRLOSS MATTRESS ORDERED, ALL PRESSURE ULCER PREVENTION MEASURES NOTED TO BE IN PLACE. WILL SEE PRN.
--- NOTE | 2017-10-23 07:00 | NUR ---
VAMPER NOTES Report given to Jose Raul BRAVO.Patient remains stable on low dose Levophed For HD today and possible debridement of sacral area.Consent signed in the chart.
--- NOTE | 2017-10-23 07:45 | NUR ---
DOCK LOADER: pt.is obtunded, able to open eyes for seconds by touch, no eyes contact, unable to follow commands, rigid, no any sedation, SR, on 1mcg/min Levophed gtt, SBP over 90, MAP over 65 now, will titrate down, O2 sat. 100% on AC mode, 40% FiO2, GTF residual WNL, HD for today per report, need get BC x1 from HD cath per report, BS 200-300 on mild insulin scale, will s/w MD, waiting for sacral debridement
--- NOTE | 2017-10-23 07:46 | NUR ---
ANTIQUE FURNITURE REPAIRER: is in room, updated with pt.condition, VS, vasopressor gtt rate, HD, I/O
[2017-10-23] MEDS: Z GUARD REMEDY 2 OZ OINT TP SCH (08:30)
[2017-10-23] MEDS: HYDROGEL DRESSING 90 GM TUBE TP SCH (08:31)
[2017-10-23] MEDS: LOSARTAN POTASSIUM 50 MG TABLET GT SCH ×2 (09:00→20:53)
[2017-10-23] MEDS: AMLODIPINE BESYLATE 5 MG TABLET GT SCH ×2 (09:00→20:54)
[2017-10-23] MEDS: CHOLESTYRAMINE/ASPARTAME 4 G/PKT PACKET GT SCH ×2 (09:22→21:20)
[2017-10-23] MEDS: LACTOBACILLUS RHAMNOSUS GG 1 EACH CAP.SPRINK GT SCH ×2 (09:22→17:47)
[2017-10-23] MEDS: FERROUS SULFATE UDC 300 MG/5 ML UDC GT SCH (09:22)
[2017-10-23] MEDS: LEVETIRACETAM SOL (5 ML) 100 MG/ML UDC GT SCH ×2 (09:22→20:58)
[2017-10-23] MEDS: VIT B CMPLX 3/FA/VIT C/BIOTIN 1 TAB TABLET GT SCH (09:22)
[2017-10-23] MEDS: HEPARIN SODIUM, PORCINE 5000 UNITS/1 ML VIAL SQ SCH ×2 (09:24→20:57)
[2017-10-23] MEDS: INSULIN GLARGINE, 100 UNIT/ML CARTRIDGE SQ SCH (09:27)
[2017-10-23] MEDS: PROSOURCE / PROSTAT (PYXIS) 30 ML UDC GT SCH ×2 (09:39→17:47)
--- NOTE | 2017-10-23 09:50 | NUR ---
ADJUNCT LATIN PROFESSOR: Levophed was stopped and restarted, SBP was down to 71, MAP 56, sacral debridement done by SANDOR Woodson, w/c Hydrogel, Mepilex
--- NOTE | 2017-10-23 10:00 | NUR ---
PERSONAL CARE AIDE: updated with pt.current condition, VS, Levophed gtt, I/O, GTF, O2sat., HD, labs, suction amount
--- NOTE | 2017-10-23 12:00 | NUR ---
HEEL BLACKER: updated with pt.current condition, VS, Levophed gtt, I/O, GTF, BG 200-300 level/getting mild SSI, Lantus daily, wounds debridement, see new orders
--- NOTE | 2017-10-23 13:09 | NUR ---
BUGGY LOADER: notified HD RN for pt.status, VS, pressor gtt, labs, e-lytes, HD cath., BCx1 from HD cath needs to draw
[2017-10-23] MEDS: NOREPINEPHRINE 16 MG in IV D5W 500 ML IV PRN (14:01)
--- NOTE | 2017-10-23 14:54 | NUR ---
FIRE PROTECTION SPECIALIST: DT reevaluated pt., GTF, current status, VS, ordered: increase Nepro GTF rate to 40 ml/h
[2017-10-23] MEDS ORDERED: NEPRO 1,000 ML BOTTLE GT PRN (15:00)
--- NOTE | 2017-10-23 15:02 | NUR ---
DENTAL DETAIL REPRESENTATIVE: pt.is obtunded, able to open eyes by touch, rest, no grimacing, SR, on 6 mcg.min Levophed gtt now, getting HD, SBP over 90 below 110, O2 sat. WNL, GTF residual 10ml now, continue GTF rate 40ml/hr per DT recommendation, suctioned well via TT/orally
[2017-10-23] MEDS: VANCOMYCIN 500 MG in IV NS 0.9% 100 ML IV PRN (17:56)
--- NOTE | 2017-10-23 18:00 | NUR ---
ROADING ENGINEER: same neuro status, obtunded, O2 sat. over 98%, continue titrate Levophed gtt, now 6 mcg/min, Vanco after HD given, BCx1 from HD cath done, PM/skin/wounds care done, changed dressings, pt.is suctioned well via TT/orally, BS 377/covered per ISS, Sagrario,IDNP was in room, updated with all above
--- NOTE | 2017-10-23 19:30 | NUR ---
ICU/RN RECEIVED PT W/ EYES CLOSED BUT OPENS EYE WHEN NAME CALLED.DOES NOT FOLLOW COMMANDS.ON VENT PER TRACH W/ PO4405% SATURATION OF 100%.RECEIVING TUBE FEEDING OF NEPHRO AT 40ML/HR,W/ MINIMAL RESIDUAL.
--- NOTE | 2017-10-23 19:46 | NUR ---
PT REC'D TRACHED ON [facility] VENT SETTINGS CHARTED. NO RESP DISTRESS NOTED. SX'D MOD AMT OF YELLOW SECRETIONS. AMBU BAG BEDSIDE. ALARMS ARE SET AND AUDIBLE. VENT PLUGGED INTO RED OUTLET. WILL CONTINUE TO MONITOR. Addendum: 10/23/17 at 1946 by SHAHZAD WOODS RT Amended: Links added.
[2017-10-23] MEDS ORDERED: MEROPENEM 500 MG in IV NS 0.9% 50 ML IV SCH (20:00)
--- NOTE | 2017-10-23 20:00 | NUR ---
ICU/RN. YGBE=944.5,GIVEN 650 MG OF TYLENOL PER GT.WILL MONITOR.
[2017-10-23] MEDS: FAMOTIDINE (20 MG) 20 MG TABLET GT SCH (21:00)
--- NOTE | 2017-10-23 21:00 | NUR ---
ICU/RN TEMP=99.9% AFTER TYLENOL.
[2017-10-23] MEDS ORDERED: CHOLESTYRAMINE/ASPARTAME 4 G/PKT PACKET ONE (21:17)
--- NOTE | 2017-10-23 21:30 | NUR ---
ICU/RN LEVOPHED DRIP INCREASED TO 7MCG/MIN FOR SBP OF 84MMHG
--- NOTE | 2017-10-23 22:00 | NUR ---
ICU/RN BP REMAINS LOW,LEVOPHED INC TO 8MCG/MIN.SEE VITAL SIGN SHEET.
[2017-10-24] VITALS (98 sets, daily range): BP systolic 80–143; BP diastolic 37–106
[2017-10-24] MEDS: LATANOPROST EYE DROP 0.005% 2.5 ML BOTTLE EACHEYE SCH ×2 (00:03→21:19)
[2017-10-24] MEDS ORDERED: DEXTROSE 50%-WATER 50 ML DISP.SYRIN IV PRN (01:00)
[2017-10-24] MEDS ORDERED: IV NS 0.9% 250 ML IV PRN ×2 (03:30→04:00)
[2017-10-24 04:43] LABS: CALCIUM, SERUM 9.9 mg/dL (8.5-10.1); CREATININE 7.1 mg/dL (0.6-1.3); POTASSIUM 2.9 mmol/L (3.5-5.1)
[2017-10-24] MEDS: IV NS 0.9% 250 ML IV SCH (05:21)
[2017-10-24] MEDS: hydrALAZINE HCL 25 MG TABLET GT SCH ×4 (05:43→16:40)
[2017-10-24] MEDS: INSULIN REGULAR, HUMAN 100 UNIT/ML 3 ML VIAL SQ PRN ×2 (06:04→11:47)
[2017-10-24] MEDS: BLOOD SUGAR DIAGNOSTIC 1 EACH STRIP IN SCH ×4 (06:04→17:33)
--- NOTE | 2017-10-24 06:37 | NUR ---
ICU/RN PT REMAINS ON LEVOPHED DRIP,CURRENTLY AT 6MCG/OK,WITH SBP 90'SMMHG.SEE VITAL SIGN SHEET.SUCTIONED FOR COPIOUS WHITE SECRETIONS FROM MOUTH AND TRACH.TRACH CARE DONE AND DRESSING FROM LT.IJ TLC CHANGED,SATURATED W/ SECRETIONS
--- NOTE | 2017-10-24 07:52 | NUR ---
BILLING ADJUDICATOR: pt.is obtunded, can open eyes by touch, no eyes contact, unable to follow commands, rigid, rest now, no grimacing, SR, SBP over 90, MAP over 65 now, continue titrate Levophed gtt, O2 sat. over 93%, needs to be suction well, BMx3 over night, no diarrhea, anuric, GTF residual WNL, ISS was changed to aggressive scale, Lantus was increased, BS was around 300-400, K+ 2.9, HD was done yesterday, will speak with
--- NOTE | 2017-10-24 08:30 | NUR ---
HOTEL HOUSEKEEPER: is in room, updated with pt.current condition, neuro status, VS, Levophed gtt, I/O, GTF Nepro, HD done yesterday, O2 sat., k+ 2.9, anion gap 26, BS 306, wounds, ordered: changed GTF for Glucerna, ISS was changed for aggressive before, no K+ replacement for now
[2017-10-24] MEDS: LEVETIRACETAM SOL (5 ML) 100 MG/ML UDC GT SCH ×2 (08:46→21:13)
[2017-10-24] MEDS: LACTOBACILLUS RHAMNOSUS GG 1 EACH CAP.SPRINK GT SCH ×2 (08:46→16:39)
[2017-10-24] MEDS: VIT B CMPLX 3/FA/VIT C/BIOTIN 1 TAB TABLET GT SCH (08:46)
[2017-10-24] MEDS: FERROUS SULFATE UDC 300 MG/5 ML UDC GT SCH (08:46)
[2017-10-24] MEDS: HEPARIN SODIUM, PORCINE 5000 UNITS/1 ML VIAL SQ SCH ×2 (08:48→21:14)
[2017-10-24] MEDS: INSULIN GLARGINE, 100 UNIT/ML CARTRIDGE SQ SCH (08:49)
[2017-10-24] MEDS: Z GUARD REMEDY 2 OZ OINT TP SCH (08:50)
[2017-10-24] MEDS: HYDROGEL DRESSING 90 GM TUBE TP SCH (08:50)
[2017-10-24] MEDS: LOSARTAN POTASSIUM 50 MG TABLET GT SCH ×2 (08:51→21:00)
[2017-10-24] MEDS: AMLODIPINE BESYLATE 5 MG TABLET GT SCH ×2 (08:51→21:00)
[2017-10-24] MEDS: PROSOURCE / PROSTAT (PYXIS) 30 ML UDC GT SCH ×2 (08:51→16:39)
--- NOTE | 2017-10-24 10:30 | NUR ---
TAKE OFF WORKER: is in room, notified re pt.status, history, neuro status, VS, vent setting, suctions amount, Levophed gtt, labs, meds, HD, BS, GTF, ordered: ABG now
--- NOTE | 2017-10-24 11:00 | NUR ---
BREWING TECHNICIAN: pt.family is in room, updated with pt.condition, VS, orders, POC
[2017-10-24] MEDS: GLUCERNA 1.2 1,000 ML BOTTLE NG PRN (11:12)
[2017-10-24] MEDS: CHOLESTYRAMINE/ASPARTAME 4 G/PKT PACKET GT SCH ×2 (11:12→21:00)
--- NOTE | 2017-10-24 13:22 | NUR ---
DESIGN PRINTING MACHINE SET UP OPERATOR: GTF residual 120ml now, hold GTF for 2hrs
--- NOTE | 2017-10-24 14:30 | NUR ---
CELL BIOLOGIST: suctioned pt.orally q1-2h with large saliva amount, changed L.IJ TLC dressing with sterile technique, GTF on hold, pt.had one vomiting episode (light yellow) may be PO meds reaction, suctioned well, continue keep HOB over 40
[2017-10-24] MEDS: SCOPOLAMINE HBR 1 EA PATCH.TD72 TD SCH (16:46)
[2017-10-24] MEDS: NOREPINEPHRINE 16 MG in IV D5W 500 ML IV PRN (16:50)
--- NOTE | 2017-10-24 18:09 | NUR ---
GIN INSPECTOR: pt.is rest, no grimacing, same neuro status, SR, Levophed down to 5 mcg/min, O2 sat. over 96%, resumed GTF after 1600 with normal residual, applied Scopolamine patch, no more vomiting, keep HOB over 40, BS down to 122, PM/skin/wounds care done, trach site is dry, TLC dressing is intact/dry, continue titrate off Levophed gtt
[2017-10-24] MEDS: MEROPENEM 500 MG in IV NS 0.9% 100 ML IV SCH (20:16)
--- NOTE | 2017-10-24 20:16 | NUR ---
RECEIVED PT TRACH PTX 7 ON [facility] VENT. PT TOLERATING VENT SETTINGS. SX'D FOR MOD AMT OF THICK WHITE SECRETIONS. VENT ALARMS SET AND AUDIBLE. AMBU BAG AT BEDSIDE. TRACH CUFF AS400 ANALYST AND SECURED. VENT PLUGGED INTO RED OUTLET. WILL CONTINUE TO MONITOR. Addendum: 10/24/17 at 2018 by BRENT STOVER RT Amended: Links added.
--- NOTE | 2017-10-24 21:03 | NUR ---
ICU/TOP ICER PT IS CURRENTLY ON LEVO AT 5MCG FOR LOW BLOOD PRESSURE, [facility] AND [facility] WAS HELD FOR THIS. PT WAS TURNED AND REPOSITIONED FOR COMFORT AND CARE.
[2017-10-24] MEDS ORDERED: CHOLESTYRAMINE/ASPARTAME 4 G/PKT PACKET ONE (22:07)
--- NOTE | 2017-10-24 22:13 | NUR ---
ICU/CYBER SECURITY ANALYST HAD TO GO TO [facility] TO GET MEDICATION EDUARDORADOM, COULD NOT FIND IN ICU VEDAIS
[2017-10-25] VITALS (91 sets, daily range): BP systolic 78–139; BP diastolic 29–94
--- NOTE | 2017-10-25 00:20 | NUR ---
ICU/TOOL FILER PT'S BLOOD SUGAR WAS 254, THIS WAS COVERED WITH AN AGGRESSIVE SCALE. WILL RECHECK SUGAR AGAIN PER MD ORDERS AND PROTOCOL. PT WAS TURNED AND REPOSITIONED FOR COMFORT AND CARE.
[2017-10-25] MEDS: BLOOD SUGAR DIAGNOSTIC 1 EACH STRIP IN SCH ×5 (00:44→23:50)
[2017-10-25] MEDS: INSULIN REGULAR, HUMAN 100 UNIT/ML 3 ML VIAL SQ PRN ×5 (00:57→23:51)
--- NOTE | 2017-10-25 02:30 | NUR ---
ICU/MANAGER TRANSPORTATION PLANNING PT GIVEN AM CARE, ALONG WITH ORAL CARE. PT TOLERATED THIS WELL. PT REMAINS ON CURRENT VENT SETTINGS WITH SATURATION AT 100%. PT WAS THEN TURNED AND REPOSITIONED FOR COMFORT AND CARE. PT REMAINS ON LEVO AT 5MCG WITH BLOOD PRESSURE 90'S.
--- NOTE | 2017-10-25 03:30 | NUR ---
ICU/RIGGER APPRENTICE NOTICED PT'S G/TUBE FEEDING RESIDUALS ARE ABOUT 225ML. TURNED OFF FEEING AND WILL MONITOR PT'S RESIDUALS.
[2017-10-25] MEDS: hydrALAZINE HCL 25 MG TABLET GT SCH ×5 (04:46→23:52)
[2017-10-25] MEDS: IV NS 0.9% 250 ML IV SCH (04:47)
[2017-10-25 05:11] LABS: POTASSIUM 3.5 mmol/L (3.5-5.1)
[2017-10-25 05:13] LABS: CREATININE 8.5 mg/dL (0.6-1.3)
--- NOTE | 2017-10-25 05:53 | NUR ---
ICU/TELEGRAPH REPEATER TECHNICIAN PT HAD VOMITED BROWNISH EMESIS WHILE PT WAS BEING SUCTIONED, NOTIFIED CHARGE NURSE PT WAS GIVEN ZOFRAN IVP FOR THIS. PT WAS TURNED AND REPOSITIONED FOR COMFORT AND CARE. ALSO AT THIS TIME MORNING LABS WERE DONE, AWAIT ANY CRITICAL LAB VALUES.
--- NOTE | 2017-10-25 07:36 | NUR ---
RT PATIENT REC'D TRACHED ON [facility] VENT WITH SETTINGS SET BY . VENT ALARMS CHECKED + AUDIBLE. CUFF PRESSURE CHECKED FX ARTIST. PATIENT SUCTIONED WITH SMALL/MOD AMT PALE SEMI-THICK SECRETIONS. B/S DIM. BACK UP TRACH AND AMBU BAG AT [facility]. Addendum: 10/25/17 at 1529 by DANELLE MORTENSEN RT Amended: Links added.
--- NOTE | 2017-10-25 07:50 | NUR ---
ICU/RN INITIAL NOTES,AM RECEIVED REPORT FROM NIGHT NURSE. PT OBTUNDED, DOES NOT FOLLOW COMMANDS. TRACH TO VENT ORDERED BY MD, NO ACUTE DISTRESS NOTED AT THIS TIME. LARGE/MODERATE SECRETIONS NOTED. PT ON TELE, SINUS 88. LEFT IJ INTACT AND PATENT, LEVO INFUSING PER PROTOCOL FOR BP SUPPORT. OVERNIGHT NIGHT RESIDUALS NOTED, PT VOMITED X2, TUBE FEEDING ON HOLD SINCE PT IS NOT TOLERATING FEEDINGS. PT SCHEDULED FOR HD TODAY. ALL NEEDS WILL BE MET, PT TURNED AND REPOSITIONED, BED IN LOW POSITION, PAPER REEL OPERATOR RAILS UP, CALL LIGHT WITHIN REACH.
[2017-10-25] MEDS: PROSOURCE / PROSTAT (PYXIS) 30 ML UDC GT SCH ×2 (08:37→17:31)
[2017-10-25] MEDS: LACTOBACILLUS RHAMNOSUS GG 1 EACH CAP.SPRINK GT SCH ×2 (08:37→17:31)
[2017-10-25] MEDS: CHOLESTYRAMINE/ASPARTAME 4 G/PKT PACKET GT SCH ×2 (08:37→21:47)
[2017-10-25] MEDS: LEVETIRACETAM SOL (5 ML) 100 MG/ML UDC GT SCH ×2 (08:37→21:47)
[2017-10-25] MEDS: FERROUS SULFATE UDC 300 MG/5 ML UDC GT SCH (08:37)
[2017-10-25] MEDS: LOSARTAN POTASSIUM 50 MG TABLET GT SCH ×2 (08:38→21:00)
[2017-10-25] MEDS: AMLODIPINE BESYLATE 5 MG TABLET GT SCH ×2 (08:38→21:00)
[2017-10-25] MEDS: VIT B CMPLX 3/FA/VIT C/BIOTIN 1 TAB TABLET GT SCH (08:42)
[2017-10-25] MEDS: Z GUARD REMEDY 2 OZ OINT TP SCH (08:43)
[2017-10-25] MEDS: HYDROGEL DRESSING 90 GM TUBE TP SCH (08:44)
[2017-10-25] MEDS: INSULIN GLARGINE, 100 UNIT/ML CARTRIDGE SQ SCH (08:45)
[2017-10-25] MEDS: HEPARIN SODIUM, PORCINE 5000 UNITS/1 ML VIAL SQ SCH ×2 (08:45→21:48)
[2017-10-25 09:39] LABS: BASOPHILS % (AUTO) 0.3 % (0.0-2.0); EOSINOPHILS % (AUTO) 3.3 % (0.0-6.0); HEMATOCRIT 31 % (33-45); HEMOGLOBIN 10.3 g/dL (11.5-14.8); LYMPHOCYTES # (AUTO) 1.9 /CMM (0.8-4.8); LYMPHOCYTES % (AUTO) 14.9 % (20.0-44.0); MEAN CORPUSCULAR HGB CONC 34 g/dl (31.0-36.0); MEAN CORPUSCULAR VOLUME 99 fL (82-100); MONOCYTES # (AUTO) 0.6 /CMM (0.1-1.30); MONOCYTES % (AUTO) 4.7 % (2.0-12.0); NEUTROPHILS # (AUTO) 9.8 /CMM (1.8-8.9); NEUTROPHILS % (AUTO) 76.8 % (43.0-81.0); PLATELET COUNT (AUTO) 295 /CMM (150-450); RDW COEFFICIENT OF VARIATION 18.2 (11.5-15.0); RED BLOOD CELL COUNT(AUTO) 3.13 MIL/uL (4.0-5.2); WHITE BLOOD COUNT (AUTO) 12.7 K/uL (4.3-11.0)
[2017-10-25 09:48] LABS: BILIRUBIN,DIRECT 0.1 mg/dL (0.0-0.2); BILIRUBIN,TOTAL 0.5 mg/dL (0.2-1.0); MAGNESIUM 2.4 mg/dL (1.8-2.4); PHOSPHORUS 3.5 mg/dL (2.5-4.9); TOTAL PROTEIN, SERUM 7.7 g/dL (6.4-8.2)
[2017-10-25 10:10] LABS: BAND % (MANUAL) 1 % (0.0-5.0); EOSINOPHILS % (MANUAL) 2 % (0-4); LYMPHOCYTES % (MANUAL) 12 % (16-48); MONOCYTES % (MANUAL) 3 % (0-11.0); NEUTROPHILS % (MANUAL) 82 (42-76)
--- NOTE | 2017-10-25 13:30 | NUR ---
ICU/RN: END HD. VSS. LOW DOSE LEVO FOR BP SUPPORT. 1600ML OUT. WILL CONTINUE TO MONITOR
--- NOTE | 2017-10-25 13:45 | NUR ---
ICU/RN: PER DIGITAL MARKETING LEAD AND DR. MORALES PT SHOULD RESUME GLUCERNA FEEDING WITH HALF DOSE AND MONITOR HOW PT TOLERATES. WILL START FEEDING AT 20ML/HR AND MONITOR RESIDUALS.
[2017-10-25] MEDS: NOREPINEPHRINE 16 MG in IV D5W 500 ML IV PRN (17:32)
[2017-10-25] MEDS: GLUCERNA 1.2 1,000 ML BOTTLE NG PRN (17:33)
[2017-10-25] MEDS: VANCOMYCIN 500 MG in IV NS 0.9% 100 ML IV PRN (18:44)
--- NOTE | 2017-10-25 18:44 | NUR ---
ICU/RN: POST HD KERWINO HELD. VANCO TROUGH 22. PHARMACIST NOTIFIED.
--- NOTE | 2017-10-25 19:21 | NUR ---
ICU/RN ENDING NOTES,AM REPORT ENDORSED TO NIGHT NURSE FOR CONTINUATION OF CARE. PT TRACH TO VENT WITH SETTINGS ORDERED BY MD, NO ACUTE DISTRESS NOTED, TOLERATING WELL. SINUS ON TELE. LOW DOSE LEVO FOR BP SUPPORT. BED BATH GIVEN, LINENS CHANGED. BED IN LOW POSITION, SIDE RAILS UP, CALL LIGHT WITHIN REACH. WILL CONTINUE CARE.
--- NOTE | 2017-10-25 19:30 | NUR ---
AVIONICS MECHANIC INITIAL NOTE RECEIVED PATIENT NON-VERBAL, VENT DEPENDENT, RESPONSIVE TO PAINFUL STIMULI. NO RESPIRATORY DISTRESS NOTED, WITH VENT SETTINGS AC 12, TV 500, FIO2 40%, PEEP 0. SKIN WARM AND DRY TO TOUCH. ON TELE MONITOR SR. WITH GT PATENT, INTACT, IN PLACE, GTF AT 20ML/HR, NO RESIDUAL NOTED AT THIS TIME. WITH LIJ TLC PATENT AND INTACT, LEVO AT 7MCG/MIN. HOB ELEVATED. SIDE RAILS UP AND LOCKED. BED KEPT AT LOWEST POSITION. TURNED AND REPOSITIONED. WILL CONTINUE TO MONITOR.
--- NOTE | 2017-10-25 20:00 | NUR ---
RECEIVED PT TRACH PTX 7 ON [facility] VENT. PT TOLERATING VENT SETTINGS. SX'D FOR MOD AMT OF THICK WHITE SECRETIONS. VENT ALARMS SET AND AUDIBLE. AMBU BAG AT BEDSIDE. TRACH CUFF CARTON PACKAGING MACHINE OPERATOR AND SECURED. VENT PLUGGED INTO RED OUTLET. WILL CONTINUE TO MONITOR. Addendum: 10/25/17 at 2000 by BRENT STOVER RT Amended: Links added.
[2017-10-25] MEDS: MEROPENEM 500 MG in IV NS 0.9% 100 ML IV SCH (20:53)
[2017-10-25] MEDS: FAMOTIDINE (20 MG) 20 MG TABLET GT SCH (21:47)
[2017-10-25] MEDS: LATANOPROST EYE DROP 0.005% 2.5 ML BOTTLE EACHEYE SCH (21:53)
--- NOTE | 2017-10-25 22:03 | NUR ---
SALVAGER NOTE NON-ADMIN ANTIHYPERTENSIVE MEDICATIONS. PATIENT ON LEVO. WILL CONTINUE TO MONITOR.
--- NOTE | 2017-10-25 23:55 | NUR ---
RECORDS MANAGEMENT ASSOCIATE NOTE NOTED WITH GTF RESIDUAL >100, NO N/V NOTED. GTF HELD AT THIS TIME. WILL CONTINUE TO MONITOR.
[2017-10-26] VITALS (114 sets, daily range): BP systolic 55–137; BP diastolic 4–76
--- NOTE | 2017-10-26 04:00 | NUR ---
CUSTOMER ACCOUNT COORDINATOR NOTE NO RESIDUAL NOTED, GTF RESUMED AT 20ML/HR. WILL CONTINUE TO MONITOR.
[2017-10-26] MEDS: IV NS 0.9% 250 ML IV SCH (04:17)
[2017-10-26 04:35] LABS: CALCIUM, SERUM 9.8 mg/dL (8.5-10.1); POTASSIUM 3.8 mmol/L (3.5-5.1)
[2017-10-26 04:57] LABS: CREATININE 7.5 mg/dL (0.6-1.3)
[2017-10-26] MEDS: BLOOD SUGAR DIAGNOSTIC 1 EACH STRIP IN SCH ×4 (05:15→23:29)
[2017-10-26] MEDS: hydrALAZINE HCL 25 MG TABLET GT SCH ×4 (05:16→23:33)
[2017-10-26] MEDS: INSULIN REGULAR, HUMAN 100 UNIT/ML 3 ML VIAL SQ PRN ×4 (05:16→23:32)
--- NOTE | 2017-10-26 06:46 | NUR ---
HIDE SORTER CLOSING NOTE NO SIGNIFICANT CHANGES OVERNIGHT. ALL DUE MEDS GIVEN. NO RESPIRATORY DISTRESS NOTED, TOLERATING CURRENT VENT SETTINGS. GT PATENT AND INTACT, IN PLACE, WITH MINIMAL RESIDUAL NOTED AT THIS TIME. WITH LIJ TLC PATENT AND INTACT WITH TKO AND LEVO AT 5MCG/MIN. KEPT CLEAN AND DRY. NO EPISODE OF N/V. TURNED AND REPOSITIONED Q2 AND PRN. WOUND TX PROVIDED. HOB ELEVATED. SIDE RAILS UP AND LOCKED. BED KEPT AT LOWEST POSITION. WILL ENDORSE CONTINUITY OF CARE TO AM NURSE.
--- NOTE | 2017-10-26 07:24 | NUR ---
RT PATIENT REC'D TRACHED ON [facility] VENT WITH SETTINGS SET BY . VENT ALARMS CHECKED + AUDIBLE. CUFF PRESSURE CHECKED GROUP PRODUCT MANAGER. PATIENT SUCTIONED WITH SMALL/MOD AMT PALE SEMI-THICK SECRETIONS. B/S DIM. BACK UP TRACH AND AMBU BAG AT [facility]. Addendum: 10/26/17 at 0847 by DANELLE MORTENSEN RT Amended: Links added.
--- NOTE | 2017-10-26 07:31 | NUR ---
RECEIVED PATIENT EYES OPEN TO LIGHT TOUCH. VENT SETTINGS ORDERED TOLERATING WELL. RT AT BEDSIDE. PATIENT APPEARS IN NO RESPIRATORY DISTRESS, NO SOB, DIFFICULTY BREATHING AND FLACC 0. PATIENT WOUND CARE DRESSINGS IN PLACE, CLEAN AND DRY. IV SITES CLEAN DRY INTACT PATENT. HD SITE CLEAN DRY AND INTACT. TUBE FEEDING RUNNING AT 20ML/HR NO RESIDUAL NOTED AT THIS TIME. WILL MONITOR. SAFETY PRECAUTIONS IN PLACE. WILL ROUND PRN
[2017-10-26] MEDS: FERROUS SULFATE UDC 300 MG/5 ML UDC GT SCH (08:04)
[2017-10-26] MEDS: AMLODIPINE BESYLATE 5 MG TABLET GT SCH ×2 (08:05→21:00)
[2017-10-26] MEDS: VIT B CMPLX 3/FA/VIT C/BIOTIN 1 TAB TABLET GT SCH (08:05)
[2017-10-26] MEDS: Z GUARD REMEDY 2 OZ OINT TP SCH (08:05)
[2017-10-26] MEDS: CHOLESTYRAMINE/ASPARTAME 4 G/PKT PACKET GT SCH ×2 (08:05→21:34)
[2017-10-26] MEDS: LEVETIRACETAM SOL (5 ML) 100 MG/ML UDC GT SCH ×2 (08:05→21:34)
[2017-10-26] MEDS: PROSOURCE / PROSTAT (PYXIS) 30 ML UDC GT SCH ×2 (08:05→16:03)
[2017-10-26] MEDS: HYDROGEL DRESSING 90 GM TUBE TP SCH (08:05)
[2017-10-26] MEDS: LACTOBACILLUS RHAMNOSUS GG 1 EACH CAP.SPRINK GT SCH ×2 (08:05→16:03)
[2017-10-26] MEDS: LOSARTAN POTASSIUM 50 MG TABLET GT SCH ×2 (08:06→21:00)
[2017-10-26] MEDS: HEPARIN SODIUM, PORCINE 5000 UNITS/1 ML VIAL SQ SCH ×2 (08:15→21:35)
[2017-10-26] MEDS: INSULIN GLARGINE, 100 UNIT/ML CARTRIDGE SQ SCH (08:16)
--- NOTE | 2017-10-26 08:52 | NUR ---
SBP 58 NOT ACCURATE. REPLACED BP CUFF AND NOW 87 SBP
[2017-10-26] MEDS: NOREPINEPHRINE 16 MG in IV D5W 500 ML IV PRN (11:01)
--- NOTE | 2017-10-26 11:22 | NUR ---
DR SANTIAGO AT BEDSIDE. UPDATED ON PATIENT CONDITION, VS, LABS. NO NEW ORDERS.
--- NOTE | 2017-10-26 11:27 | NUR ---
FIO2 TITRATED TO 30% Addendum: 10/26/17 at 1127 by DANELLE MORTENSEN RT Amended: Links added.
--- NOTE | 2017-10-26 11:59 | NUR ---
WOUND CARE CONSULT WOUND CARE RECEIVED CONSULT FOR ABD FOL EXCORIATIONS. WOUND CARE WILL DEFER CONSULT AND TREATMENT PLAN TO SURGICAL TEAM WHO ARE CURRENTLY FOLLOWING. WILL SEE PRN.
--- NOTE | 2017-10-26 15:19 | NUR ---
dr bragg at bedside. updated on patient condition and dressing change completed on right heel per order
--- NOTE | 2017-10-26 17:41 | NUR ---
CALLED PHARMACY SPOKE WITH AMY TO FOLLOW UP ON ANNMARIE WHITE
--- NOTE | 2017-10-26 18:35 | NUR ---
all due meds given and all needs met. vent stable. iv sites patent, clean dry. fem cath clean dry intact. safety and aspiration precautions in place. levophed running at 3mcg/min at this time. no sob, difficulty breathing or pain. care will be endorsed to rn for belinda.
--- NOTE | 2017-10-26 18:47 | NUR ---
spoke to [facility] to follow up again on lotrimin cream.
[2017-10-26] MEDS: CLOTRIMAZOLE 1% 15 GM TUBE TP SCH (19:02)
--- NOTE | 2017-10-26 19:30 | NUR ---
GELATIN PLANT SUPERVISOR INITIAL NOTE RECEIVED PATIENT NON-VERBAL, VENT DEPENDENT, RESPONSIVE TO PAINFUL STIMULI. NO RESPIRATORY DISTRESS NOTED, WITH VENT SETTINGS AC 12, TV 500, FIO2 30%, PEEP 0, SPO2 100%. SKIN WARM AND DRY TO TOUCH. ON TELE MONITOR SR. WITH GT PATENT, INTACT, IN PLACE, GTF AT 30ML/HR, WITH MINIMAL RESIDUAL NOTED AT THIS TIME. WITH LIJ TLC PATENT AND INTACT, LEVO AT 3MCG/MIN. HOB ELEVATED. SIDE RAILS UP AND LOCKED. BED KEPT AT LOWEST POSITION. TURNED AND REPOSITIONED. WILL CONTINUE TO MONITOR.
[2017-10-26] MEDS: MEROPENEM 500 MG in IV NS 0.9% 100 ML IV SCH (20:42)
[2017-10-26] MEDS: LATANOPROST EYE DROP 0.005% 2.5 ML BOTTLE EACHEYE SCH (21:36)
[2017-10-27] VITALS (116 sets, daily range): BP systolic 58–148; BP diastolic 29–86
--- NOTE | 2017-10-27 | NUR ---
CHERRY CUTTER NOTE PATIENT NOTED WITH >100 GTF RESIDUAL. GTF HELD AT THIS TIME. NO N/V NOTED. WILL CONTINUE TO MONITOR.
--- NOTE | 2017-10-27 04:00 | NUR ---
EXECUTIVE CHEF NOTE PATIENT STILL NOTED WITH GTF RESIDUAL GREATER THAN 100ML. WILL CONTINUE TO HOLD GTF AT THIS TIME. WILL CONTINUE TO MONITOR.
[2017-10-27 04:17] LABS: BASOPHILS # (AUTO) 0.1 /CMM (0.0-0.2); BASOPHILS % (AUTO) 0.8 % (0.0-2.0); EOSINOPHILS % (AUTO) 3.9 % (0.0-6.0); HEMATOCRIT 31 % (33-45); HEMOGLOBIN 10.7 g/dL (11.5-14.8); LYMPHOCYTES # (AUTO) 2.8 /CMM (0.8-4.8); LYMPHOCYTES % (AUTO) 25.2 % (20.0-44.0); MEAN CORPUSCULAR HGB CONC 35 g/dl (31.0-36.0); MEAN CORPUSCULAR VOLUME 98 fL (82-100); MONOCYTES # (AUTO) 0.9 /CMM (0.1-1.30); NEUTROPHILS # (AUTO) 6.9 /CMM (1.8-8.9); NEUTROPHILS % (AUTO) 62.1 % (43.0-81.0); PLATELET COUNT (AUTO) 464 /CMM (150-450); RED BLOOD CELL COUNT(AUTO) 3.14 MIL/uL (4.0-5.2); WHITE BLOOD COUNT (AUTO) 11.2 K/uL (4.3-11.0)
[2017-10-27] MEDS: IV NS 0.9% 250 ML IV SCH (04:17)
[2017-10-27 05:13] LABS: ALBUMIN 3.2 g/dL (3.4-5.0); BILIRUBIN,TOTAL 0.6 mg/dL (0.2-1.0); CREATININE 9.4 mg/dL (0.6-1.3); MAGNESIUM 2.7 mg/dL (1.8-2.4); PHOSPHORUS 3.9 mg/dL (2.5-4.9); POTASSIUM 3.7 mmol/L (3.5-5.1); TOTAL PROTEIN, SERUM 7.6 g/dL (6.4-8.2)
[2017-10-27] MEDS: GLUCERNA 1.2 1,000 ML BOTTLE NG PRN (05:57)
[2017-10-27] MEDS: BLOOD SUGAR DIAGNOSTIC 1 EACH STRIP IN SCH ×4 (06:00→23:22)
[2017-10-27] MEDS: hydrALAZINE HCL 25 MG TABLET GT SCH ×2 (06:00→11:38)
--- NOTE | 2017-10-27 06:00 | NUR ---
MANAGER COMBINATION NOTE GLUCOMETER OUT OF SERVICE. PER CHARGE OK TO USE BLOOD GLUCOSE FROM MORNING LAB. RESULT 177. COVERED PER SLIDING SCALE. WILL CONTINUE TO MONITOR.
[2017-10-27] MEDS: INSULIN REGULAR, HUMAN 100 UNIT/ML 3 ML VIAL SQ PRN ×3 (06:01→23:24)
--- NOTE | 2017-10-27 06:40 | NUR ---
MOSHGIACH NOTE NO SIGNIFICANT CHANGES OVERNIGHT. GT WITH <100ML RESIDUAL NOTED, GTF RESUMED. GT PATENT AND INTACT, IN PLACE. NO N/V NOTED. TOLERATED VENT SETTINGS, SPO2 100%. SKIN WARM AND DRY TO TOUCH. WOUND TX DONE. HOB ELEVATED. TURNED AND REPOSITIONED Q2 AND PRN. SEIZURE PRECAUTIONS OBSERVED. SIDE RAILS UP AND LOCKED. BED KEPT AT LOWEST POSITION. WILL ENDORSE CONTINUITY OF CARE TO AM NURSE.
--- NOTE | 2017-10-27 07:33 | NUR ---
RT PT RECEIVED WITH A PORTEX 7 TRACH ON THE VENT WITH NOTED SETTINGS. PT IS AWAKE BUT DOES NOT FOLLOW COMMANDS. VENT ALARMS ARE SET AND AUDIBLE WITH BVM BY BEDSIDE. TRANSPLANT IMMUNOLOGIST CUFF PRESSURE NOTED. VENT IS PLUGGED INTO RED OUTLET. PT SX'D SMALL THIN WHITE/CLEAR SECRETIONS. NO RESPIRATORY DISTRESS NOTED AT THIS TIME, WILL CONTINUE TO MONITOR. Addendum: 10/27/17 at 0736 by TITO WADDELL RT Amended: Links added.
--- NOTE | 2017-10-27 07:38 | NUR ---
ICU/RN INITIAL NOTES,AM RECEIVED REPORT FROM NIGHT NURSE. PT OBTUNDED, DOES NOT FOLLOW COMMANDS, SOMETIMES OPENS EYES BUT DOES NOT TRACK. TRACH TO VENT WITH SETTINGS ORDERED BY MD, NO ACUTE DISTRESS NOTED AT THIS TIME. PT ON TELE, SINUS 80. LEFT IJ INTACT AND PATENT, LEVO INFUSING PER PROTOCOL FOR BP SUPPORT. PT ON GTUBE FEEDING WILL CLOSELY MONITOR RESIDUALS, PT NOT TOLERATING WELL. PT SCHEDULED FOR HD TODAY. ALL NEEDS WILL BE MET, PT TURNED AND REPOSITIONED, BED IN LOW POSITION, TOWEL FOLDER RAILS UP, CALL LIGHT WITHIN REACH.
--- NOTE | 2017-10-27 08:15 | NUR ---
ICU/RN: HD STARTED. VSS. WILL CONTINUE TO MONITOR. ALBUMIN GIVEN FOR BP SUPPORT.
[2017-10-27] MEDS: ALBUMIN 25% 25 GM in PREMIX 1 EA IV PRN (08:19)
[2017-10-27] MEDS: LACTOBACILLUS RHAMNOSUS GG 1 EACH CAP.SPRINK GT SCH ×2 (08:20→17:15)
[2017-10-27] MEDS: LEVETIRACETAM SOL (5 ML) 100 MG/ML UDC GT SCH ×2 (08:20→21:03)
[2017-10-27] MEDS: VIT B CMPLX 3/FA/VIT C/BIOTIN 1 TAB TABLET GT SCH (08:20)
[2017-10-27] MEDS: CHOLESTYRAMINE/ASPARTAME 4 G/PKT PACKET GT SCH ×2 (08:20→21:03)
[2017-10-27] MEDS: FERROUS SULFATE UDC 300 MG/5 ML UDC GT SCH (08:20)
[2017-10-27] MEDS: HEPARIN SODIUM, PORCINE 5000 UNITS/1 ML VIAL SQ SCH ×2 (08:21→21:04)
[2017-10-27] MEDS: Z GUARD REMEDY 2 OZ OINT TP SCH (08:23)
[2017-10-27] MEDS: HYDROGEL DRESSING 90 GM TUBE TP SCH (08:23)
[2017-10-27] MEDS: INSULIN GLARGINE, 100 UNIT/ML CARTRIDGE SQ SCH (08:28)
[2017-10-27] MEDS: CLOTRIMAZOLE 1% 15 GM TUBE TP SCH ×2 (08:44→17:20)
[2017-10-27] MEDS: LOSARTAN POTASSIUM 50 MG TABLET GT SCH (08:54)
[2017-10-27] MEDS: AMLODIPINE BESYLATE 5 MG TABLET GT SCH (08:54)
[2017-10-27] MEDS: PROSOURCE / PROSTAT (PYXIS) 30 ML UDC GT SCH ×2 (08:55→17:15)
--- NOTE | 2017-10-27 10:11 | NUR ---
ICU/RN: END HD, NOTHING OUT. CLEANING ONLY. VSS. WILL CONTINUE TO MONITOR
[2017-10-27] MEDS: NOREPINEPHRINE 16 MG in IV D5W 500 ML IV PRN (11:39)
[2017-10-27] MEDS: VANCOMYCIN 500 MG in IV NS 0.9% 100 ML IV PRN (11:46)
[2017-10-27] MEDS: SCOPOLAMINE HBR 1 EA PATCH.TD72 TD SCH (17:20)
--- NOTE | 2017-10-27 18:41 | NUR ---
ICU/RN ENDING NOTES,AM REPORT WILL BE ENDORSED TO NIGHT NURSE FOR CONTINUATION OF CARE. PT TRACH TO VENT WITH SETTINGS ORDERED BY MD, NO ACUTE DISTRESS NOTED, TOLERATING WELL. SINUS ON TELE. LOW DOSE LEVO FOR BP SUPPORT. BED BATH GIVEN, LINENS CHANGED. BED IN LOW POSITION, SIDE RAILS UP, CALL LIGHT WITHIN REACH. WILL CONTINUE CARE.
--- NOTE | 2017-10-27 19:30 | NUR ---
SWITCH CLEANER INITIAL NOTE RECEIVED PATIENT NON-VERBAL, VENT DEPENDENT, RESPONSIVE TO PAINFUL STIMULI. NO S/S OF PAIN OR DISCOMFORT. NO RESPIRATORY DISTRESS NOTED, WITH VENT SETTINGS AC 12, TV 500, FIO2 30%, PEEP 0, SPO2 100%. SKIN WARM AND DRY TO TOUCH. ON TELE MONITOR SR. WITH GT PATENT, INTACT, IN PLACE, GTF AT 30ML/HR, WITH NO RESIDUAL NOTED AT THIS TIME, GT RATE INCREASED TO GOAL RATE 40ML/HR. WITH LIJ TLC PATENT AND INTACT, LEVO AT 2MCG/MIN. HOB ELEVATED. SIDE RAILS UP AND LOCKED. BED KEPT AT LOWEST POSITION. TURNED AND REPOSITIONED. SEIZURE PRECAUTIONS OBSERVED. WILL CONTINUE TO MONITOR.
--- NOTE | 2017-10-27 20:46 | NUR ---
RECEIVED PT TRACH PTX 7 ON [facility] VENT. PT TOLERATING VENT SETTINGS. SX'D FOR MOD AMT OF THIN WHITE SECRETIONS. VENT ALARMS SET AND AUDIBLE. AMBU BAG AT BEDSIDE. TRACH CUFF ROOF CEMENT AND PAINT MAKER HELPER AND SECURED. VENT PLUGGED INTO RED OUTLET. WILL CONTINUE TO MONITOR. Addendum: 10/27/17 at 2045 by BRENT STOVER RT Amended: Links added.
[2017-10-27] MEDS: MEROPENEM 500 MG in IV NS 0.9% 100 ML IV SCH (20:55)
[2017-10-27] MEDS: FAMOTIDINE (20 MG) 20 MG TABLET GT SCH (21:02)
[2017-10-27] MEDS: LATANOPROST EYE DROP 0.005% 2.5 ML BOTTLE EACHEYE SCH (21:06)
[2017-10-28] VITALS (99 sets, daily range): BP systolic 70–147; BP diastolic 40–91
--- NOTE | 2017-10-28 | NUR ---
FINANCIAL ANALYST ACCOUNTANT NOTE PATIENT NOTED WITH HIGH RESIDUAL >100ML. WILL HOLD FEEDING AT THIS TIME. WILL CONTINUE TO MONITOR.
--- NOTE | 2017-10-28 02:00 | NUR ---
ELEVATOR CONSTRUCTOR NOTE NO RESIDUAL NOTED, FEEDING RESUMED AT 35ML/HR. WILL CONTINUE TO MONITOR.
--- NOTE | 2017-10-28 04:00 | NUR ---
LYE MACHINE OPERATOR NOTE BED BATH GIVEN, WOUND TX DONE ORDERED.
[2017-10-28] MEDS: IV NS 0.9% 250 ML IV SCH (04:16)
[2017-10-28 04:47] LABS: BASOPHILS % (AUTO) 0.5 % (0.0-2.0); EOSINOPHILS % (AUTO) 6.4 % (0.0-6.0); HEMATOCRIT 27 % (33-45); LYMPHOCYTES # (AUTO) 1.9 /CMM (0.8-4.8); LYMPHOCYTES % (AUTO) 27.5 % (20.0-44.0); MEAN CORPUSCULAR HGB CONC 34 g/dl (31.0-36.0); MEAN CORPUSCULAR VOLUME 99 fL (82-100); MONOCYTES # (AUTO) 0.5 /CMM (0.1-1.30); MONOCYTES % (AUTO) 7.6 % (2.0-12.0); NEUTROPHILS # (AUTO) 3.9 /CMM (1.8-8.9); PLATELET COUNT (AUTO) 250 /CMM (150-450); RDW COEFFICIENT OF VARIATION 18.4 (11.5-15.0); RED BLOOD CELL COUNT(AUTO) 2.68 MIL/uL (4.0-5.2); WHITE BLOOD COUNT (AUTO) 6.8 K/uL (4.3-11.0)
[2017-10-28 04:59] LABS: CALCIUM, SERUM 9.5 mg/dL (8.5-10.1); MAGNESIUM 2.6 mg/dL (1.8-2.4); PHOSPHORUS 3.7 mg/dL (2.5-4.9); POTASSIUM 3.7 mmol/L (3.5-5.1)
[2017-10-28 05:11] LABS: CREATININE 7.9 mg/dL (0.6-1.3)
[2017-10-28] MEDS: BLOOD SUGAR DIAGNOSTIC 1 EACH STRIP IN SCH ×4 (05:47→23:57)
--- NOTE | 2017-10-28 06:54 | NUR ---
WINDOWS SYSTEMS ADMINISTRATOR CLOSING NOTE NO SIGNIFICANT CHANGES OVERNIGHT. NO RESPIRATORY DISTRESS NOTED. NO N/V. TOLERATING CURRENT VENT SETTINGS. NO S/S OF PAIN OR DISCOMFORT. GT PATENT, INTACT, IN PLACE, TOLERATING GTF AT 35M/HR AT THIS TIME. LIJ TLC PATENT AND INTACT, WITH TKO AND LEVO AT 1MCG/MIN. KEPT CLEAN AND DRY. TURNED AND REPOSITIONED Q2 AND PRN. WOUND TX DONE. HOB ELEVATED. SIDE RAILS UP AND LOCKED. BED KEPT AT LOWEST POSITION. WILL ENDORSED CONTINUITY OF CARE TO NURSE.
--- NOTE | 2017-10-28 08:00 | NUR ---
PATIENT TRACHED TO VENT-NO DISTRESS NOTED. WITHDRAWS TO PAIN. ALL EXTREMITIES OTHERWISE ARE RIGID. AFEBRILE. LOW DOSE LEVOPHED DRIP ONGOING AT 1 MCG/MIN. WILL TITRATE OFF ABLE.
--- NOTE | 2017-10-28 08:10 | NUR ---
RT PATIENT REC'D TRACHED ON [facility] VENT WITH SETTINGS SET BY . VENT ALARMS CHECKED + AUDIBLE. CUFF PRESSURE CHECKED INFANTRY INDIRECT FIRE CREWMEMBER. PATIENT SUCTIONED WITH SMALL/MOD AMT PALE SEMI-THICK SECRETIONS. B/S DIM. BACK UP TRACH AND AMBU BAG AT [facility]. Addendum: 10/28/17 at 0811 by DANELLE MORTENSEN RT Amended: Links added.
[2017-10-28] MEDS: FERROUS SULFATE UDC 300 MG/5 ML UDC GT SCH (08:45)
[2017-10-28] MEDS: LACTOBACILLUS RHAMNOSUS GG 1 EACH CAP.SPRINK GT SCH ×2 (08:45→16:47)
[2017-10-28] MEDS: VIT B CMPLX 3/FA/VIT C/BIOTIN 1 TAB TABLET GT SCH (08:45)
[2017-10-28] MEDS: LEVETIRACETAM SOL (5 ML) 100 MG/ML UDC GT SCH ×2 (08:45→20:14)
[2017-10-28] MEDS: HEPARIN SODIUM, PORCINE 5000 UNITS/1 ML VIAL SQ SCH ×2 (08:46→20:28)
[2017-10-28] MEDS: INSULIN GLARGINE, 100 UNIT/ML CARTRIDGE SQ SCH (08:47)
[2017-10-28] MEDS: HYDROGEL DRESSING 90 GM TUBE TP SCH (08:47)
[2017-10-28] MEDS: CLOTRIMAZOLE 1% 15 GM TUBE TP SCH ×2 (08:48→16:48)
[2017-10-28] MEDS: Z GUARD REMEDY 2 OZ OINT TP SCH (08:48)
[2017-10-28] MEDS: CHOLESTYRAMINE/ASPARTAME 4 G/PKT PACKET GT SCH ×2 (08:52→20:14)
[2017-10-28] MEDS: PROSOURCE / PROSTAT (PYXIS) 30 ML UDC GT SCH ×2 (08:53→16:47)
--- NOTE | 2017-10-28 09:00 | NUR ---
TITRATED OFF LEVO -SBP>100.
--- NOTE | 2017-10-28 10:30 | NUR ---
PATIENT S/E BY DR. TEJADA AND DR. LLOYD.
--- NOTE | 2017-10-28 12:05 | NUR ---
BS-124. NO SS COVERAGE.
[2017-10-28] MEDS: NOREPINEPHRINE 16 MG in IV D5W 500 ML IV PRN (13:40)
--- NOTE | 2017-10-28 14:00 | NUR ---
PATIENT LEVOPHED DRIP RESTARTED-SBP 70'S.
[2017-10-28] MEDS: GLUCERNA 1.2 1,000 ML BOTTLE NG PRN (16:47)
[2017-10-28] MEDS: INSULIN REGULAR, HUMAN 100 UNIT/ML 3 ML VIAL SQ PRN (17:57)
--- NOTE | 2017-10-28 18:00 | NUR ---
REMAINS ON LEVOPHED AT 2 MCG/MIN. FOR BP SUPPORT. HD IN AM. AFEBRILE THE WHOLE SHIFT. NO SIGNS OF DISCOMFORT.
--- NOTE | 2017-10-28 19:40 | NUR ---
RN NOTES RECEIVED PT WITH TRACH PORTEX 7 CONNECTED TO VENT SETTING AC 12 TV 500 FIO2 30% NO PEEP SATURATION 100%. ABLE TO OPEN EYES. RESPONSIVE TO PAIN. NON VERBAL. TELE MONITOR REVEALS SR HR 87. WITH IV SITE ON LIJ TLC RUNNING WITH LEVOPHED @ 2MCG/MIN. SBP WNL. WILL TITRATE ACCORDINGLY. RIGHT FEMORAL HD CATH WAS CLEANED AND DRY DRESSING INTACT. GLUCERNA @ 35 ML/HR TOLERATED WELL. PATENCY CHECKED. KEPT PT CLEANED AND DRY WILL CONTINUE TO MONITOR.
[2017-10-28] MEDS: MEROPENEM 500 MG in IV NS 0.9% 100 ML IV SCH (20:14)
--- NOTE | 2017-10-28 20:50 | NUR ---
RN NOTES LEVOPHED DECREASED TO 1 MCG/MIN. SBP 132 MMHG.
--- NOTE | 2017-10-28 21:17 | NUR ---
RECEIVED PT TRACH PTX 7 ON [facility] VENT. PT TOLERATING VENT SETTINGS. SX'D FOR MOD AMT OF THIN WHITE SECRETIONS. VENT ALARMS SET AND AUDIBLE. AMBU BAG AT BEDSIDE. TRACH CUFF FISHER TRAWL NET AND SECURED. VENT PLUGGED INTO RED OUTLET. WILL CONTINUE TO MONITOR. Addendum: 10/28/17 at 2117 by BRENT STOVER RT Amended: Links added.
--- NOTE | 2017-10-28 21:20 | NUR ---
RN NOTES TITRATE LEVOPHED @ 2 MCG/MIN BP WAS 72/45 MMHG. WILL CONTINUE TO MONITOR.
[2017-10-28] MEDS: LATANOPROST EYE DROP 0.005% 2.5 ML BOTTLE EACHEYE SCH (22:19)
--- NOTE | 2017-10-28 23:00 | NUR ---
RN NOTES DECREASED LEVOPHED TO 1 MCG/MIN BP WAS 137/ 73 MMHG.
[2017-10-29] VITALS (84 sets, daily range): BP systolic 73–169; BP diastolic 44–102
[2017-10-29] MEDS: INSULIN REGULAR, HUMAN 100 UNIT/ML 3 ML VIAL SQ PRN
--- NOTE | 2017-10-29 04:15 | NUR ---
RN NOTES HELD LEVOPHED AT THIS TIME. SBP 148 MMHG. WILL CONTINUE TO MONITOR VS.
[2017-10-29 04:40] LABS: BASOPHILS % (AUTO) 0.4 % (0.0-2.0); EOSINOPHILS % (AUTO) 7.1 % (0.0-6.0); HEMATOCRIT 27 % (33-45); LYMPHOCYTES # (AUTO) 1.6 /CMM (0.8-4.8); LYMPHOCYTES % (AUTO) 22.8 % (20.0-44.0); MEAN CORPUSCULAR HGB CONC 34 g/dl (31.0-36.0); MEAN CORPUSCULAR VOLUME 100 fL (82-100); MONOCYTES # (AUTO) 0.4 /CMM (0.1-1.30); MONOCYTES % (AUTO) 5.3 % (2.0-12.0); NEUTROPHILS # (AUTO) 4.6 /CMM (1.8-8.9); NEUTROPHILS % (AUTO) 64.4 % (43.0-81.0); PLATELET COUNT (AUTO) 248 /CMM (150-450); RDW COEFFICIENT OF VARIATION 19.1 (11.5-15.0); RED BLOOD CELL COUNT(AUTO) 2.66 MIL/uL (4.0-5.2); WHITE BLOOD COUNT (AUTO) 7.1 K/uL (4.3-11.0)
[2017-10-29 05:14] LABS: CALCIUM, SERUM 9.5 mg/dL (8.5-10.1); MAGNESIUM 2.7 mg/dL (1.8-2.4); PHOSPHORUS 4.9 mg/dL (2.5-4.9)
[2017-10-29 05:28] LABS: CREATININE 9.3 mg/dL (0.6-1.3)
[2017-10-29] MEDS: IV NS 0.9% 250 ML IV SCH (05:42)
[2017-10-29] MEDS: BLOOD SUGAR DIAGNOSTIC 1 EACH STRIP IN SCH ×4 (05:44→23:24)
--- NOTE | 2017-10-29 07:09 | NUR ---
RN NOTES 6:30 AM - RE STARTED LEVOPHED AT 1 MCG/MIN DUE TO SBP 75 MMHG. PT REMAINED STABLE THROUGHOUT THE SHIFT. AFEBRILE. ALL DUE MEDICINE TOLERATED WELL. GTF INTACT AND PATENT. INCONTINENT CARE RENDERED. WOUND DRESSING CHANGED. SKIN CARE PROVIDED. PT KEPT CLEAN AND DRY. ENDORSED CONTINUITY OF CARE TO AM NURSE.
[2017-10-29] MEDS: LEVETIRACETAM SOL (5 ML) 100 MG/ML UDC GT SCH ×2 (08:31→21:20)
[2017-10-29] MEDS: LACTOBACILLUS RHAMNOSUS GG 1 EACH CAP.SPRINK GT SCH ×2 (08:31→16:29)
[2017-10-29] MEDS: VIT B CMPLX 3/FA/VIT C/BIOTIN 1 TAB TABLET GT SCH (08:31)
[2017-10-29] MEDS: PROSOURCE / PROSTAT (PYXIS) 30 ML UDC GT SCH ×2 (08:31→16:29)
[2017-10-29] MEDS: FERROUS SULFATE UDC 300 MG/5 ML UDC GT SCH (08:32)
[2017-10-29] MEDS: CHOLESTYRAMINE/ASPARTAME 4 G/PKT PACKET GT SCH ×2 (08:32→21:20)
[2017-10-29] MEDS: HYDROGEL DRESSING 90 GM TUBE TP SCH (08:33)
[2017-10-29] MEDS: CLOTRIMAZOLE 1% 15 GM TUBE TP SCH ×2 (08:33→16:29)
[2017-10-29] MEDS: Z GUARD REMEDY 2 OZ OINT TP SCH (08:34)
[2017-10-29] MEDS: INSULIN GLARGINE, 100 UNIT/ML CARTRIDGE SQ SCH (08:35)
--- NOTE | 2017-10-29 09:00 | NUR ---
HD STARTED BY HD RN.
--- NOTE | 2017-10-29 12:00 | NUR ---
HD COMPLETED AND TOLERATED WELL WITH 1.5L OUT.
[2017-10-29] MEDS: NOREPINEPHRINE 8 MG in IV D5W 500 ML IV PRN (12:13)
--- NOTE | 2017-10-29 15:00 | NUR ---
TITRATED OFF LEVOPHED DRIP-SBP 120'S.
--- NOTE | 2017-10-29 19:30 | NUR ---
RN NOTES RECEIVED PT OFF FROM LEVOPHED. VS WNL. PT RESTING ON BED. WITH TRACH AND VENT SETTING TOLERATED WELL. AFEBRILE. SINUS RHYTHM ON TELE MONITOR. GTF GLUCERNA @ 35 ML/HR BERE WELL WITH ZERO RESIDUAL. PATENCY CHECKED. IV SITE ON LIJ INTACT AND PATENT. RIGHT FEMORAL HD CATH IS CLEAN WITH DRY DRESSING. OFFLOADED EXT WITH PILLOWS. REPOSITIONED FOR SKIN MANAGEMENT. WILL CONT. TO MONITOR CLOSELY,
[2017-10-29] MEDS: LATANOPROST EYE DROP 0.005% 2.5 ML BOTTLE EACHEYE SCH (21:20)
[2017-10-29] MEDS: FAMOTIDINE (20 MG) 20 MG TABLET GT SCH (21:20)
[2017-10-30] VITALS (75 sets, daily range): BP systolic 66–142; BP diastolic 40–84
[2017-10-30] MEDS: IV NS 0.9% 250 ML IV SCH (04:18)
[2017-10-30] MEDS: GLUCERNA 1.2 1,000 ML BOTTLE NG PRN (04:18)
[2017-10-30] MEDS: BLOOD SUGAR DIAGNOSTIC 1 EACH STRIP IN SCH ×4 (06:52→23:20)
--- NOTE | 2017-10-30 06:54 | NUR ---
RN NOTES PT ASLEEP WELL ON BED WITH TRACH AND VENT TOLERATED WELL. NO ACUTE RESP DISTRESS. AFEBRILE. REMAINED OFF FROM LEVOPHED THROUGHOUT THE SHIFT. VS WNL. ALL DUE MEDICINE TOLERATED WELL VIA GT WITHOUT N/V/D. INCONTINENT CARE RENDERED. KEPT PT CLEAN AND DRY. NO S/S OF HYPO OR HYPERGLYCEMIA. NO ASE FORM MEDICINE. WILL ENDORSED CONTINUITY OF CARE TO AM NURSE.
--- NOTE | 2017-10-30 07:40 | NUR ---
GLASS BLOWING INSTRUCTOR: pt.is obtunded, can open eyes by touch, no eyes contact, no activity tracking, rigid, rest now, no grimacing, SR, SBP over 90 now, Levophed is off, O2sat. over 96% on AC mode FiO2 30%, HD done yesterday 1.5L out, GTF residual WNL, TLC blue port is occluded
--- NOTE | 2017-10-30 08:01 | NUR ---
RAILROAD POLICE OFFICER: GTF rate 35ml/h now, goal 40ml/h, rate adjusted to goal, BS going down, BS 78 now, hold Lantus 25 units/will s/w
[2017-10-30] MEDS: CHOLESTYRAMINE/ASPARTAME 4 G/PKT PACKET GT SCH ×2 (08:14→20:39)
[2017-10-30] MEDS: LACTOBACILLUS RHAMNOSUS GG 1 EACH CAP.SPRINK GT SCH ×2 (08:14→17:12)
[2017-10-30] MEDS: LEVETIRACETAM SOL (5 ML) 100 MG/ML UDC GT SCH ×2 (08:14→20:38)
[2017-10-30] MEDS: VIT B CMPLX 3/FA/VIT C/BIOTIN 1 TAB TABLET GT SCH (08:14)
[2017-10-30] MEDS: FERROUS SULFATE UDC 300 MG/5 ML UDC GT SCH (08:14)
[2017-10-30] MEDS: PROSOURCE / PROSTAT (PYXIS) 30 ML UDC GT SCH ×2 (08:15→17:14)
[2017-10-30] MEDS: Z GUARD REMEDY 2 OZ OINT TP SCH (08:16)
[2017-10-30] MEDS: HYDROGEL DRESSING 90 GM TUBE TP SCH (08:16)
[2017-10-30] MEDS: CLOTRIMAZOLE 1% 15 GM TUBE TP SCH ×2 (08:17→17:15)
[2017-10-30] MEDS: INSULIN GLARGINE, 100 UNIT/ML CARTRIDGE SQ SCH (09:00)
--- NOTE | 2017-10-30 09:50 | NUR ---
SEAL MIXING OPERATOR: updated with pt.current condition, VS, I/O, Levophed gtt off/on/rate, GTF, HD, BS 78, ok to hold Lantus today
[2017-10-30] MEDS: INSULIN REGULAR, HUMAN 100 UNIT/ML 3 ML VIAL SQ PRN ×3 (11:19→23:22)
--- NOTE | 2017-10-30 11:49 | NUR ---
KILN PLACER: is in room, updated with pt.status, VS, Levophed gtt off/on/rate, I/O, GTF, HD, suction amount, O2sat.
[2017-10-30] MEDS: MIDODRINE HCL (5MG) 5 MG TABLET PO SCH ×2 (14:15→17:13)
[2017-10-30] MEDS: NOREPINEPHRINE 8 MG in IV D5W 500 ML IV PRN (14:16)
[2017-10-30] MEDS: HYDROCORTISONE SOD SUCCINATE 100 MG/2 ML VIAL IV SCH (15:45)
[2017-10-30] MEDS: SCOPOLAMINE HBR 1 EA PATCH.TD72 TD SCH (17:26)
--- NOTE | 2017-10-30 18:12 | NUR ---
NUTRITION INSTRUCTOR: same neurostatus, levophed is off now, SR, SBP over 90, O2 sat. WNL, PM/wounds/skin care done
--- NOTE | 2017-10-30 19:14 | NUR ---
NUT ORCHARDIST. INITIAL ASSESSMENT, RECEIVED THE PT REST ON THE BED. TRACH TO VENT CONNECTED. PT IS OBTUNDED. PORTEX#7, AC 12, TV 500,FIO2 30%. SAT 98%. NO ACUTE DISTRESS NOTED. CARDIOLOGY PHYSICIAN SHOWING NSR. IV LT IJ, TRIPLE LUMEN, TKO RUNNING.LT ARM AV FISTULA, RT FEMORAL HD CATH. HOB ELEVATED. GT GLUCERNA 40ML/H. PT HAS SACRAL AND RT FOOT ULCER. WILL CONTINUE TO MONITOR VITALS.
[2017-10-30] MEDS: LATANOPROST EYE DROP 0.005% 2.5 ML BOTTLE EACHEYE SCH (21:21)
[2017-10-31] VITALS (46 sets, daily range): BP systolic 101–158; BP diastolic 50–84
--- NOTE | 2017-10-31 00:05 | NUR ---
PER DIEM PHYSICAL THERAPIST ASSISTANT. GT FEEDING RESIDUAL 200ML. FEEDING HELD. WILL CONTINUE TO MONITOR.
--- NOTE | 2017-10-31 02:00 | NUR ---
SOCIAL WORK ASSISTANT GT FEEDING RESUMED. WILL CONTINUE TO MONITOR.
--- NOTE | 2017-10-31 03:04 | NUR ---
LAY OUT TECHNICIAN AM CARE. ORAL CARE, BED BATH GIVEN. LINEN CHANGED. REMAINING SAME VENT SETTING TOLERATED WELL. SAT 99%. NO ACUTE DISTRESS NOTED. TREATING PLANT SUPERVISOR SHOWING NSR, IV LT IJ SALINE LOCK.GT FEEDING RE STARTED, HOB ELEVATED. TURN AND REPOSITION Q2H. WILL CONTINUE TO MONITOR VITALS.
[2017-10-31 04:54] LABS: BASOPHILS % (AUTO) 0.4 % (0.0-2.0); EOSINOPHILS % (AUTO) 0.6 % (0.0-6.0); HEMATOCRIT 30 % (33-45); HEMOGLOBIN 10.2 g/dL (11.5-14.8); LYMPHOCYTES # (AUTO) 1.9 /CMM (0.8-4.8); LYMPHOCYTES % (AUTO) 17.4 % (20.0-44.0); MEAN CORPUSCULAR HGB CONC 34 g/dl (31.0-36.0); MEAN CORPUSCULAR VOLUME 99 fL (82-100); MONOCYTES # (AUTO) 0.4 /CMM (0.1-1.30); MONOCYTES % (AUTO) 3.9 % (2.0-12.0); NEUTROPHILS # (AUTO) 8.3 /CMM (1.8-8.9); NEUTROPHILS % (AUTO) 77.7 % (43.0-81.0); PLATELET COUNT (AUTO) 263 /CMM (150-450); RDW COEFFICIENT OF VARIATION 19.1 (11.5-15.0); RED BLOOD CELL COUNT(AUTO) 3.02 MIL/uL (4.0-5.2); WHITE BLOOD COUNT (AUTO) 10.7 K/uL (4.3-11.0)
[2017-10-31] MEDS: IV NS 0.9% 250 ML IV SCH (04:57)
[2017-10-31 05:35] LABS: CALCIUM, SERUM 9.5 mg/dL (8.5-10.1); MAGNESIUM 2.8 mg/dL (1.8-2.4); PHOSPHORUS 5.5 mg/dL (2.5-4.9); POTASSIUM 4.6 mmol/L (3.5-5.1)
[2017-10-31 05:37] LABS: CREATININE 9.8 mg/dL (0.6-1.3)
[2017-10-31] MEDS: BLOOD SUGAR DIAGNOSTIC 1 EACH STRIP IN SCH ×3 (06:17→17:43)
--- NOTE | 2017-10-31 07:40 | NUR ---
BITUMINOUS PAVING MACHINE OPERATOR: pt.is obtunded, able to open eyes by touch, no eyes contact, unable to follow commands, rigid, rest, SR, SBP over 90, Levophed gtt off, O2sat. over 96%, needs to be suction well, had high GTF residual and vomiting episode over night, keep HOB over 40, GTF residual WNL 10ml now, morning BS 121/will s/w re Lantus 25units daily?, HD today, BM x2 over night
[2017-10-31] MEDS: HYDROCORTISONE SOD SUCCINATE 100 MG/2 ML VIAL IV SCH ×3 (08:38→16:45)
[2017-10-31] MEDS: FERROUS SULFATE UDC 300 MG/5 ML UDC GT SCH (08:38)
[2017-10-31] MEDS: LEVETIRACETAM SOL (5 ML) 100 MG/ML UDC GT SCH ×2 (08:38→20:10)
[2017-10-31] MEDS: LACTOBACILLUS RHAMNOSUS GG 1 EACH CAP.SPRINK GT SCH ×2 (08:39→16:45)
[2017-10-31] MEDS: VIT B CMPLX 3/FA/VIT C/BIOTIN 1 TAB TABLET GT SCH (08:39)
[2017-10-31] MEDS: MIDODRINE HCL (5MG) 5 MG TABLET PO SCH ×3 (08:39→16:45)
[2017-10-31] MEDS: Z GUARD REMEDY 2 OZ OINT TP SCH (08:40)
[2017-10-31] MEDS: CLOTRIMAZOLE 1% 15 GM TUBE TP SCH ×2 (08:40→16:45)
[2017-10-31] MEDS: HYDROGEL DRESSING 90 GM TUBE TP SCH (08:40)
[2017-10-31] MEDS ORDERED: IV NS 0.9% 250 ML IV PRN (08:41)
[2017-10-31] MEDS: PROSOURCE / PROSTAT (PYXIS) 30 ML UDC GT SCH ×2 (08:47→16:44)
--- NOTE | 2017-10-31 09:00 | NUR ---
GARMENT PRESSER: updated with pt.status, VS, O2sat., GTF, I/O, HD, suction amount
[2017-10-31] MEDS: CHOLESTYRAMINE/ASPARTAME 4 G/PKT PACKET GT SCH ×2 (10:25→21:43)
[2017-10-31] MEDS: INSULIN REGULAR, HUMAN 100 UNIT/ML 3 ML VIAL SQ PRN ×2 (11:24→17:47)
[2017-10-31] MEDS: INSULIN GLARGINE, 100 UNIT/ML CARTRIDGE SQ SCH (11:42)
--- NOTE | 2017-10-31 12:36 | NUR ---
DELICATESSEN MANAGER: is in room, updated with pt.current condition, VS, IV pressor off, I/O, GTF, BS, wounds, confirmed: HD for today, ordered: if pt is stable after HD can be transfer to [facility]
[2017-10-31] MEDS: ALBUMIN 25% 25 GM in PREMIX 1 EA IV PRN (13:53)
--- NOTE | 2017-10-31 17:20 | NUR ---
PRESS BREAKER: pt.is stable after HD, transferred to [facility] after full report for LAWRENCE Edgar
--- NOTE | 2017-10-31 17:30 | NUR ---
DENTOFACIAL ORTHOPEDICS DENTIST: same neuro status, SR, SBP 100-140, O2 sat. over 92%, suctioned well, trach care done, TLC dressing is intact, GTF residual WNL, 1L out per HD, PM/skin/wounds care done
[2017-10-31] MEDS: GLUCERNA 1.2 1,000 ML BOTTLE NG PRN (17:49)
--- NOTE | 2017-10-31 18:27 | NUR ---
RN NOTE: PATIENT RECEIVED FROM ICU VENT-TRAC, SETTINGS TOLERATING WELL. AMBU BAG AT BEDSIDE. G-TUBE INTACT. SAFETY MEASURES OBSERVED. ASPIRATION PRECAUTIONS. LEFT IJ TRIPLE LUMEN CATH INTACT, DRESSING CLEAN & DRY. BLUE PORT IS OCCLUDED. CONTINUE TO MONITOR.
[2017-10-31] MEDS: FAMOTIDINE (20 MG) 20 MG TABLET GT SCH (20:10)
[2017-10-31] MEDS: LATANOPROST EYE DROP 0.005% 2.5 ML BOTTLE EACHEYE SCH (21:45)
[2017-11-01] VITALS: BP 140/85
[2017-11-01] MEDS: BLOOD SUGAR DIAGNOSTIC 1 EACH STRIP IN SCH ×3 (00:59→11:55)
[2017-11-01] MEDS: INSULIN REGULAR, HUMAN 100 UNIT/ML 3 ML VIAL SQ PRN ×2 (01:02→12:25)
[2017-11-01 04:00] VITALS: BP 114/73
--- NOTE | 2017-11-01 06:08 | NUR ---
RT NOTE: PT RECEIVED TRACHED AND ON A VENT W NOTED SETTINGS. ALARMS ARE ON AND AUDIBLE. VENT IS PLUGGED INTO RED OUTLET W AMBUBAG AT [facility]. MODERATE AMOUNTS OF THICK WHITE SECRETIONS OBSERVED. NO DISTRESS NOTED AT THIS TIME. WILL CONTINUE TO MONITOR.
[2017-11-01 07:24] LABS: BASOPHILS % (AUTO) 0.2 % (0.0-2.0); EOSINOPHILS % (AUTO) 0.3 % (0.0-6.0); HEMATOCRIT 29 % (33-45); HEMOGLOBIN 9.8 g/dL (11.5-14.8); LYMPHOCYTES % (AUTO) 20.9 % (20.0-44.0); MEAN CORPUSCULAR HGB CONC 34 g/dl (31.0-36.0); MEAN CORPUSCULAR VOLUME 100 fL (82-100); MONOCYTES # (AUTO) 0.7 /CMM (0.1-1.30); MONOCYTES % (AUTO) 7.1 % (2.0-12.0); NEUTROPHILS % (AUTO) 71.5 % (43.0-81.0); PLATELET COUNT (AUTO) 272 /CMM (150-450); RDW COEFFICIENT OF VARIATION 18.7 (11.5-15.0); RED BLOOD CELL COUNT(AUTO) 2.89 MIL/uL (4.0-5.2); WHITE BLOOD COUNT (AUTO) 9.8 K/uL (4.3-11.0)
[2017-11-01 08:00] VITALS: BP 120/60
--- NOTE | 2017-11-01 08:00 | NUR ---
TD/RN AM SHIFT INITIAL NOTES RECEIVED PT ASLEEP IN BED, PT OBTUNDED, OPEN EYES, NO TRACKING. NO GRIMACING OR ACUTE CHANGE OF CONDITION NOTED. VENT DEPENDENT, WITH RATES SET PRESCRIBED, SATURATING @ 100%, LUNG SOUNDS DIMINISHED, SUCTIONED FOR AIRWAY CLEARANCE, RESPIRATIONS EVEN AND UNLABORED. ON TELE MONITORING, SINUS RHYTHM, HR 73. CENTRAL LINE ON TKO ONLY ONE PORT IS PATENT. GTF ON GOING @ 40CC/HR, NO GASTRIC RESIDUAL NOTED. BLOOD GLUCOSE CHECKED, 92, TO BE GIVEN 25 UNITS OF LANTUS ORDERED. PT IS COMFORTABLE AT THIS TIME. AM MEDS TO BE GIVEN. CL WITHIN REACHED AND SAFETY MAINTAINED. ON GOING MONITORING.
[2017-11-01 08:01] LABS: CALCIUM, SERUM 9.8 mg/dL (8.5-10.1); PHOSPHORUS 4.7 mg/dL (2.5-4.9); POTASSIUM 4.5 mmol/L (3.5-5.1)
[2017-11-01 08:08] LABS: CREATININE 8.9 mg/dL (0.6-1.3)
[2017-11-01] MEDS: INSULIN GLARGINE, 100 UNIT/ML CARTRIDGE SQ SCH (08:38)
[2017-11-01] MEDS: HYDROCORTISONE SOD SUCCINATE 100 MG/2 ML VIAL IV SCH ×2 (08:39→12:17)
[2017-11-01] MEDS: PROSOURCE / PROSTAT (PYXIS) 30 ML UDC GT SCH (08:39)
[2017-11-01] MEDS: LEVETIRACETAM SOL (5 ML) 100 MG/ML UDC GT SCH (08:39)
[2017-11-01] MEDS: MIDODRINE HCL (5MG) 5 MG TABLET PO SCH (08:39)
[2017-11-01] MEDS: FERROUS SULFATE UDC 300 MG/5 ML UDC GT SCH (08:39)
[2017-11-01] MEDS: HYDROGEL DRESSING 90 GM TUBE TP SCH (08:40)
[2017-11-01] MEDS: Z GUARD REMEDY 2 OZ OINT TP SCH (08:40)
[2017-11-01] MEDS: VIT B CMPLX 3/FA/VIT C/BIOTIN 1 TAB TABLET GT SCH (08:40)
[2017-11-01] MEDS: CHOLESTYRAMINE/ASPARTAME 4 G/PKT PACKET GT SCH (08:40)
[2017-11-01] MEDS: LACTOBACILLUS RHAMNOSUS GG 1 EACH CAP.SPRINK GT SCH (08:40)
[2017-11-01] MEDS: CLOTRIMAZOLE 1% 15 GM TUBE TP SCH (08:41)
[2017-11-01 12:00] VITALS: BP 114/69
--- NOTE | 2017-11-01 12:45 | NUR ---
TD/RN ROUNDS - DR. LLOYD PT SEEN & EXAMINED BY DR. LLOYD, WITH VERBAL ORDERS TO DISCHARGE PT BACK TO SNF. NOTED. MONITORING CONTINUED.
[2017-11-01] MEDS ORDERED: MIDODRINE HCL 2.5 MG TABLET PO SCH (13:00)
--- NOTE | 2017-11-01 15:11 | NUR ---
RT SHIFT REPORT, PT. 57 Y OLD FEMALE REMAIN TRACHED PORTEX # 7 WITH NOTED SETTINGS, VENT ALARMS ARE SET AND AUDIBLE WITH AMBU BAG AT THE BEDSIDE. BUTTON BREAKER OPERATOR CUFF PRESSURE NOTED. VENT IS PLUGGED INTO RED OUTLET. B/S BILATERALLY RALES EQUAL CHEST RISE NOTED. HME CHANGED SX MODERATE THICK YELLOW SECRETIONS. NO RESPIRATORY DISTRESS NOTED T/O SHIFT, WILL CONTINUE TO MONITOR. REPORT WILL BE GIVEN TO PM SHIFT. PT REMAIN STABLE. Addendum: 11/01/17 at 1511 by YVONNE HARPER RT Amended: Links added.
[2017-11-01 16:00] VITALS: BP 118/78
--- NOTE | 2017-11-01 16:47 | NUR ---
TD/HIGH SCHOOL COORDINATOR - SNF REPORT GIVEN TO FLEX ROSA RN OF [facility] PERSONNEL. DISCHARGE INSTRUCTIONS GIVEN, VERBALIZED UNDERSTANDING. IV SITES INTACT AND PATENT. NO PERSONAL BELONGINGS, INVENTORY LOG SIGNED OFF. TELE BOX REMOVED WELL IB BANDS. DISCHARGE DOCUMENTS GIVEN TO TRANSPORT SERVICE. PT LEFT UNIT VIA GURNEY IN STABLE CONDITION.
== END 2017-11-01 16:46 | DRG 853 ==
LOC: ER 11:12 → TELE-TD 13:47 → ICU 16:34 → TELE1 17:45 → ICU 17:50 → TELE-TD 10-31 17:14
PROVIDERS: ADMIT Internal Medicine Nephrology; ATTEND Internal Medicine Nephrology
PROC: 5A1955Z Respiratory Ventilation, Greater than 96 Consecutive Hours (ICD-10-PCS; principal; 2017-10-21)
PROC: 0JBQ0ZZ Excision of Right Foot Subcutaneous Tissue and Fascia, Open Approach (ICD-10-PCS; 2017-10-22)
PROC: 05HN33Z Insertion of Infusion Device into Left Internal Jugular Vein, Percutaneous Approach (ICD-10-PCS; 2017-10-22)
PROC: B544ZZA Ultrasonography of Left Jugular Veins, Guidance (ICD-10-PCS; 2017-10-22)
PROC: 0KBP0ZZ Excision of Left Hip Muscle, Open Approach (ICD-10-PCS; 2017-10-23)
PROC: 0KBN0ZZ Excision of Right Hip Muscle, Open Approach (ICD-10-PCS; 2017-10-23)
PROC: 5A1D70Z Performance of Urinary Filtration, Intermittent, Less than 6 Hours Per Day (ICD-10-PCS; 2017-10-23)
PROC: 5A1D70Z Performance of Urinary Filtration, Intermittent, Less than 6 Hours Per Day (ICD-10-PCS; 2017-10-25)
PROC: 5A1D70Z Performance of Urinary Filtration, Intermittent, Less than 6 Hours Per Day (ICD-10-PCS; 2017-10-27)
PROC: 5A1D70Z Performance of Urinary Filtration, Intermittent, Less than 6 Hours Per Day (ICD-10-PCS; 2017-10-29)
PROC: 5A1D70Z Performance of Urinary Filtration, Intermittent, Less than 6 Hours Per Day (ICD-10-PCS; 2017-10-31)
DX: A41.9 Sepsis, unspecified organism (principal); L89.613 Pressure ulcer of right heel, stage 3; R65.21 Severe sepsis with septic shock; G93.40 Encephalopathy, unspecified; N18.6 End stage renal disease; R53.2 Functional quadriplegia; L89.154 Pressure ulcer of sacral region, stage 4; Z99.11 Dependence on respirator [ventilator] status; I12.0 Hypertensive chronic kidney disease with stage 5 chronic kidney disease or end stage renal disease; E87.2 Acidosis; J96.11 Chronic respiratory failure with hypoxia; Z93.0 Tracheostomy status; Z99.2 Dependence on renal dialysis; R13.10 Dysphagia, unspecified; R62.7 Adult failure to thrive; Z93.1 Gastrostomy status; E11.22 Type 2 diabetes mellitus with diabetic chronic kidney disease; I25.10 Atherosclerotic heart disease of native coronary artery without angina pectoris; E83.9 Disorder of mineral metabolism, unspecified; G40.909 Epilepsy, unspecified, not intractable, without status epilepticus; M24.562 Contracture, left knee; M24.561 Contracture, right knee; L90.5 Scar conditions and fibrosis of skin; L98.8 Other specified disorders of the skin and subcutaneous tissue; E11.65 Type 2 diabetes mellitus with hyperglycemia; Z79.4 Long term (current) use of insulin; D64.9 Anemia, unspecified; F09 Unspecified mental disorder due to known physiological condition
CPT/HCPCS: 31720; 36415; 36569; 71045-TC; 80048-TC; 80053-TC; 80076-TC; 80150; 80202-TC; 82533; 82962-TC; 83605-TC; 83735-TC; 84100-TC; 84484-TC; 85025-TC; 85730-TC; 87040-TC; 87081-TC; 90935-TC; 94002-TC; 94003-TC; 94762-TC; 99082-TC; A4216; A4606; A4623; A6248; A6253; A6402; A6403; A7526; C1751; J0278; J1644; J1720; J1815; J1953; J2185; J2405; J2543; J3370; J7030; J7040; J7050; J7060; P9047; Z7610

== ENCOUNTER 2018-02-17 11:26 | Emergency (ER) | payer MEDICARE, MEDICAID ==
[~2018-02-17] VITALS: Ht 162.6 cm; Wt 72.6 kg
[~2018-02-17 11:26] MED LIST changes: -ACET650S26 GT; -AMIN30LI4 GT; -ASCO500S2 GT; -BLOO-668 IN; +HYDR-4076 PO; -INSU100V3 SQ; -IPRA3AMP23 IH; -ONDA4TAB5 GT; +TRAV5DRO EACHEYE
--- NOTE | 2018-02-17 11:35 | NUR ---
PT REC'D TRACHED ON PORTEX SZ 7 ON [facility] VENT FROM TRANSPORT RT. NO RESP DISTRESS OR SOB NOTED. SX'D FOR THICK SMALL AMT OF YELLOW SECRETIONS. STRAIGHTENER AND ALIGNER CUFF PRESSURE NOTED. TRACH PATENT SECURED. ALARMS ARE SET AND AUDIBLE. VENT PLUGGED INTO RED OUTLET. AMBU BEDSIDE WILL CONTINUE TO MONITOR.. Addendum: 02/17/18 at 1152 by VITOR TILLMAN RT Amended: Links added.
--- NOTE | 2018-02-17 11:42 | NUR ---
SARAH FROM HD CENTER DT LOW BLOOD PRESSURE SP HD.RECEIEVED PATIENT AWAKE, NON VERBAL, VENT/ TRACHE DEPENDENT. PT NOTED WITH GT. SKIN IS WARM TO TOUCH AND NON DIAPHORETIC. PATIENT IS AFEBRILE.VSS
[2018-02-17 11:45] VITALS: BP 82/43
[2018-02-17] MEDS ORDERED: ONDANSETRON HCL/PF 4 MG/2 ML VIAL IVP ONE (12:00)
[2018-02-17] MEDS ORDERED: IV NS 0.9% 500 ML BAG IV ONE (12:00)
[2018-02-17] MEDS ORDERED: ONDANSETRON HCL/PF 4 MG/2 ML VIAL ONE (12:05)
[2018-02-17 12:14] LABS: BASOPHILS % (AUTO) 0.2 % (0.0-2.0); EOSINOPHILS % (AUTO) 2.6 % (0.0-6.0); HEMATOCRIT 32 % (33-45); HEMOGLOBIN 10.6 g/dL (11.5-14.8); LYMPHOCYTES # (AUTO) 1.1 /CMM (0.8-4.8); LYMPHOCYTES % (AUTO) 12.7 % (20.0-44.0); MEAN CORPUSCULAR HGB CONC 34 g/dl (31.0-36.0); MEAN CORPUSCULAR VOLUME 91 fL (82-100); MONOCYTES # (AUTO) 0.7 /CMM (0.1-1.30); MONOCYTES % (AUTO) 7.7 % (2.0-12.0); NEUTROPHILS # (AUTO) 6.9 /CMM (1.8-8.9); NEUTROPHILS % (AUTO) 76.8 % (43.0-81.0); PLATELET COUNT (AUTO) 267 /CMM (150-450); RED BLOOD CELL COUNT(AUTO) 3.45 MIL/uL (4.0-5.2); WHITE BLOOD COUNT (AUTO) 8.9 K/uL (4.3-11.0)
[2018-02-17 12:22] LABS: CALCIUM, SERUM 8.8 mg/dL (8.5-10.1); CREATININE 4.1 mg/dL (0.6-1.3); POTASSIUM 3.2 mmol/L (3.5-5.1)
--- NOTE | 2018-02-17 13:01 | NUR ---
PAGED [facility] FOR CONSULT - PIPE LINER NICOLE
--- NOTE | 2018-02-17 13:47 | NUR ---
PAGED DR. RIVERA AT [facility] NEPHROLOGY AGAIN
--- NOTE | 2018-02-17 15:33 | NUR ---
ETA 1610 FOR TRANSPORT
--- NOTE | 2018-02-17 16:02 | NUR ---
REPORT GIVEN TO LAWRENCE ESCOBAR FROM [facility] [place]
[2018-02-17 16:40] VITALS: BP 116/52
--- NOTE | 2018-02-17 16:42 | NUR ---
PATIENT WAS PICKED UP BY JENNIE. VSS
== END 2018-02-17 16:44 | disposition home or self-care (01) ==
LOC: ER 11:30
DX: I12.0 Hypertensive chronic kidney disease with stage 5 chronic kidney disease or end stage renal disease (principal); E11.22 Type 2 diabetes mellitus with diabetic chronic kidney disease; N18.6 End stage renal disease; I95.9 Hypotension, unspecified; R11.10 Vomiting, unspecified; R09.02 Hypoxemia; R56.9 Unspecified convulsions; G93.40 Encephalopathy, unspecified; K21.9 Gastro-esophageal reflux disease without esophagitis; R13.10 Dysphagia, unspecified; E78.5 Hyperlipidemia, unspecified; Z93.1 Gastrostomy status; Z93.0 Tracheostomy status; Z99.2 Dependence on renal dialysis; Z79.4 Long term (current) use of insulin
CPT/HCPCS: 36415; 80048; 85025; 96361; 96374; 99284; A4606; J2405; J7040; Z7610

== ENCOUNTER 2018-10-29 09:39 | Inpatient (IN) | payer MEDICARE, MEDICAID ==
[~2018-10-29] VITALS: Ht 162.6 cm; Wt 68.9 kg
[2018-10-29] VITALS (35 sets, daily range): BP systolic 40–184; BP diastolic 19–161
[~2018-10-29 09:39] MED LIST changes: -AMLO5TAB7 GT; +AMLO5TAB9 GT; -LOSA50TA21 GT; +LOSA50TA39 GT
--- NOTE | 2018-10-29 09:39 | NUR ---
PT BIB PA FROM [facility], HYPOTENSION, 30 MINUTES AFTER STARTING DIALYSIS, PT IS AAOX0, ON MECH VENT RT AT BEDSIDE FOR SET UP, HOOKED TO MONITOR, KEPT RESTED AND COMFORTABLE, WILL CONTINUE TO MONITOR.
--- NOTE | 2018-10-29 09:50 | NUR ---
PT SEEN AND EXAMINED BY DR. MCCANN
--- NOTE | 2018-10-29 09:55 | NUR ---
PT IV LINE ESTABLISHED, BLOOD DRAWNED AND SENT TO LAB.
[2018-10-29] MEDS ORDERED: DOPamine 400 MG in IV D5W 250 ML IV PRN (10:00)
[2018-10-29 10:05] LABS: BASOPHILS # (AUTO) 0.1 /CMM (0.0-0.2); BASOPHILS % (AUTO) 1.1 % (0.0-2.0); EOSINOPHILS % (AUTO) 0.3 % (0.0-6.0); HEMATOCRIT 31 % (33-45); HEMOGLOBIN 9.6 g/dL (11.5-14.8); LYMPHOCYTES # (AUTO) 0.7 /CMM (0.8-4.8); LYMPHOCYTES % (AUTO) 5.2 % (20.0-44.0); MEAN CORPUSCULAR HGB CONC 31 g/dl (31.0-36.0); MEAN CORPUSCULAR VOLUME 101 fL (82-100); MONOCYTES # (AUTO) 0.6 /CMM (0.1-1.30); MONOCYTES % (AUTO) 4.2 % (2.0-12.0); NEUTROPHILS # (AUTO) 12.6 /CMM (1.8-8.9); NEUTROPHILS % (AUTO) 89.2 % (43.0-81.0); PLATELET COUNT (AUTO) 285 /CMM (150-450); RED BLOOD CELL COUNT(AUTO) 3.04 MIL/uL (4.0-5.2); WHITE BLOOD COUNT (AUTO) 14.1 K/uL (4.3-11.0)
[2018-10-29] MEDS ORDERED: DOCU-141 GT (10:17)
[2018-10-29] MEDS ORDERED: BRIM5DRO3 OP (10:17)
[2018-10-29] MEDS ORDERED: ASCO500C18 GT (10:17)
[2018-10-29] MEDS ORDERED: MIDO10TA GT (10:17)
[2018-10-29] MEDS ORDERED: OMEG1CAP PO (10:17)
[2018-10-29] MEDS ORDERED: INSU100I26 SQ (10:17)
[2018-10-29] MEDS ORDERED: TYL2T GT (10:17)
[2018-10-29] MEDS ORDERED: FOLI0.8T2 GT (10:17)
[2018-10-29] MEDS ORDERED: CHLO473M3 MM (10:17)
[2018-10-29] MEDS ORDERED: PROT946L GT (10:17)
[2018-10-29] MEDS ORDERED: ONDA4VIA52 GT (10:17)
[2018-10-29] MEDS ORDERED: ACET-2030 GT (10:17)
[2018-10-29] MEDS ORDERED: INSU100V30 IJ (10:17)
--- NOTE | 2018-10-29 10:19 | NUR ---
PICC LINE TEAM ETA 1 HR PER [facility]
--- NOTE | 2018-10-29 10:22 | NUR ---
PT WHEELED OUT VIA [facility] FOR CT SCAN
[2018-10-29] MEDS ORDERED: DOPamine 400MG/D5W 250ML RTU 250 ML IV ONE (10:24)
[2018-10-29 10:25] LABS: BILIRUBIN,DIRECT 0.4 mg/dL (0.0-0.2); BILIRUBIN,TOTAL 0.8 mg/dL (0.2-1.0); TOTAL PROTEIN, SERUM 8.1 g/dL (6.4-8.2)
[2018-10-29] MEDS ORDERED: ACETAMINOPHEN 650 MG/SUPP.RECT RC ONE ×2 (10:25→10:30)
--- NOTE | 2018-10-29 10:25 | NUR ---
DR SANTIAGO PAGED
[2018-10-29 10:28] LABS: CREATININE 7.6 mg/dL (0.6-1.3)
[2018-10-29] MEDS ORDERED: LEVOFLOXACIN 750 MG /D5W 150ML 150 ML IV ONE ×2 (10:30→10:44)
--- NOTE | 2018-10-29 10:48 | NUR ---
Beckman catheter inserted using sterile technique. No urine output noted. aware
[2018-10-29] MEDS ORDERED: ACETAMINOPHEN 650 MG/20.3 ML UDC ONE (10:52)
[2018-10-29] MEDS ORDERED: CLINDAMYCIN 900 MG in IV D5W 100 ML IV ONE (11:00)
[2018-10-29] MEDS ORDERED: INSULIN REGULAR, HUMAN 100 UNIT/ML 3 ML VIAL SQ PRN (11:00)
[2018-10-29] MEDS ORDERED: *INSULIN REGULAR(HUMULIN R)HUM 100 UNIT/ML VIAL SQ PRN (11:00)
[2018-10-29] MEDS ORDERED: INSULIN REGULAR, HUMAN 100 UNIT/ML 10 ML VIAL IV ONE (11:00)
[2018-10-29] MEDS ORDERED: ZOLPIDEM TARTRATE 5 MG TABLET PO PRN (11:00)
[2018-10-29] MEDS ORDERED: DEXTROSE 50%-WATER 50 ML DISP.SYRIN IV PRN ×2 (11:00→15:30)
[2018-10-29] MEDS ORDERED: CLINDAMYCIN 900 MG/6 ML VIAL ONE (11:13)
[2018-10-29] MEDS ORDERED: INSULIN REGULAR, HUMAN 100 UNIT/ML 10 ML VIAL ONE (11:13)
--- NOTE | 2018-10-29 11:37 | NUR ---
PICC LINE NURSE KATE BRAVO AT BEDSIDE
[2018-10-29] MEDS ORDERED: BLOOD SUGAR DIAGNOSTIC 1 EACH STRIP VI SCH (12:00)
--- NOTE | 2018-10-29 12:34 | NUR ---
PAGED DR SANTIAGO FOR ORDERS
[2018-10-29] MEDS ORDERED: ACETAMINOPHEN 650 MG/20.3 ML UDC PO ONE ×2 (13:00)
--- NOTE | 2018-10-29 13:06 | NUR ---
REPORT GIVEN TO ROSIE BRAVO FOR SHERRY; PT WILL BE TRANSPORTED TO ICU VIA ACLS PROTOCOL
--- NOTE | 2018-10-29 13:25 | NUR ---
ASSISTANT CHIEF ENGINEER NOTES RECEIVED PT FROM ER VIA [facility], CHIEF COMPLAINT HYPOTENSION AT HD CENTER. DX SEPTIC SHOCK C/O DR. MATHIS, OBTUNDED, WITH PORTEX 7 TO MECHANICAL VENT, SETTING AC 18 TV 500 FIO2 100% PEEP 0. DIAPHORETIC. STAN MIDLINE WITH DOPAMINE DRIP AT 17 MCG ONGOING. RFA G 20 FLUSHES WELL SITE CLEAR. SINUS TACH. NO GRIMACING. PHOTOS OF SKIN ISSUES TAKEN AND INCORPORATED IN THE CHART. GT IN PLACE, CLAMPED NPO FOR NOW. HD CATH ACCESS RIGHT GROIN CDI DRESSING. PATIENT CLEANED AND MADE COMFORTABLE. CALL LIGHT WITHIN REACH. SAFETY MEASURES IN PLACE. WILL MONITOR CLOSELY.
[2018-10-29] MEDS ORDERED: FEE PK DOSING 1 MIN EA MC ONE (13:35)
--- NOTE | 2018-10-29 13:45 | NUR ---
RN NOTES BS CHECK DONE 559 MG/DL. DR. TEJADA AWARE. NO NEW ORDER.
[2018-10-29] MEDS ORDERED: NOREPINEPHRINE 16 MG in IV D5W 500 ML IV PRN (14:00)
--- NOTE | 2018-10-29 14:10 | NUR ---
RN NOTES PER DR. MATHIS TO CHECK BS EVERY 4 HOURS/ MODERATE SCALE.
[2018-10-29] MEDS: NOREPINEPHRINE 16 MG in IV D5W 500 ML IV PRN (14:24)
[2018-10-29] MEDS ORDERED: IV NS 0.9% 500 ML IV ONE (14:30)
[2018-10-29 14:46] LABS: ABG BASE EXCESS -14.5 mmol/L; ABG OXYGEN SATURATION 99.5 % (92.0-98.5); ABG PCO2 20.8 mmHg (35.0-45.0); ABG PH 7.302 (7.350-7.450); ABG PO2 378.4 mmHg (75.0-100.0); AaDO2 313.8 mmHg; COHb 0.3 % (0.5-1.5); MetHb 0.7 % (0.0-1.5); O2Hb 98.5 % (94.0-97.0); SITE, ABG Right Radial; VENT MODE, BG A/C; VT, ABG 500 mL
[2018-10-29] MEDS ORDERED: VANCOMYCIN 1 GM in IV D5W 250 ML IV ONE (15:00)
[2018-10-29] MEDS ORDERED: MISCELLANEOUS MED 1 EA EA XX ONE (16:00)
--- NOTE | 2018-10-29 16:13 | NUR ---
RN NOTES BS RE CHECKED >600 MG/DL. ORDERED FOR RBS. 15 UNITS HUM R GIVEN
[2018-10-29] MEDS: BLOOD SUGAR DIAGNOSTIC 1 EACH STRIP IN SCH ×6 (16:19→23:18)
[2018-10-29] MEDS: PIPERACILLIN /TAZOBACTAM 2.25 G in IV D5W 50 ML IV SCH ×2 (16:23→23:18)
[2018-10-29] MEDS: INSULIN REGULAR, HUMAN 100 UNIT/ML 3 ML VIAL SQ PRN ×2 (16:33→18:16)
--- NOTE | 2018-10-29 17:03 | NUR ---
RN NOTES RANDOM BLOOD SUGAR 779 MG/DL. CALLED IN TO DR. MATHIS
--- NOTE | 2018-10-29 17:08 | NUR ---
RN NOTESS PER DR. MATHIS STAT BMP
--- NOTE | 2018-10-29 17:55 | NUR ---
RN NOTES BMP RESULT GLUCOSE LEVEL 884. DR. DEL COOPER.
--- NOTE | 2018-10-29 18:04 | NUR ---
LAWRENCE NOTES BS DONE = >600. BNP DRAWN ONLY NOW. Addendum: 10/29/18 at 1937 by ROSIE NETTLES RN ADDENDUM: PER DEL LOZANO HUMULIN R. ADMINISTERED 20 UNITS HUM R AT 1804.
[2018-10-29 18:26] LABS: CALCIUM, SERUM 8.4 mg/dL (8.5-10.1); POTASSIUM 4.4 mmol/L (3.5-5.1)
[2018-10-29 18:32] LABS: CREATININE 7.8 mg/dL (0.6-1.3)
--- NOTE | 2018-10-29 18:55 | NUR ---
RN NOTES CRITICAL RESULT; CORTISOL - 52.2. DR. MATHIS NOTIFIED.
[2018-10-29] MEDS ORDERED: INSULIN REGULAR, HUMAN 100 UNIT in IV NS 0.9% 99 ML IV PRN ×4 (19:30)
--- NOTE | 2018-10-29 19:39 | NUR ---
HEARING AID SPECIALIST CLOSING NOTES PT RESTING IN BED, OBTUNDED, WITH PORTEX 7 TO MECHANICAL VENT, SETTING AC 18 TV 500 FIO2 50% PEEP 0. STAN MIDLINE WITH LEVOPHED DRIP AT 4 MCG ONGOING. RFA G 20 FLUSHES WELL SITE CLEAR. SINUS TACH. NO GRIMACING. GT IN PLACE, CLAMPED NPO EXCEPT MEDS FOR NOW. HD CATH ACCESS RIGHT GROIN CDI DRESSING. CALL LIGHT WITHIN REACH. SAFETY MEASURES IN PLACE. ALL NEEDS MET FOR NOW. ENDORSED TO NEXT SHIFT FOR SHERRY. FOR INSULIN DRIP. PLACED ORDER. GAYATHRI TO FOLLOW UP WITH ORDER.
--- NOTE | 2018-10-29 19:46 | NUR ---
RT RT PT RECEIVED TRACHED ON [facility] VENT ON CHARTED SETTINGS. NO SIGNS OF RESP DISTRESS NOTED AT THIS TIME. AIRWAY PATENT AND SECURED. AUTO BODY MECHANIC DONE. PT SUCTIONED. ALARMS SET AND AUDIBLE. AMBUBAG AT BEDSIDE. VENT CONNECTED TO RED OUTLET. WILL CONT TO MONITOR. Addendum: 10/29/18 at 2021 by BETHANY MUSE RT Amended: Links added.
--- NOTE | 2018-10-29 20:00 | NUR ---
BUTTON BRADDER NOTE PATIENT'S 1999 ACCUCHECK DONE. BLOOD SUGAR GREATER THAN 600. MD/ PHARMACY/ LAB AWARE OF PATIENT HISTORY. ISULIN PROTOCOL INITIATED WAITING ON INSULIN DRIP TO BE BROUGHT UP BY PHARMACY. WILL HOLD SUBQ INSULIN ON 1999 ACCUCHECK.
--- NOTE | 2018-10-29 20:30 | NUR ---
BURNING SUPERVISOR NOTE INSULIN DRIP STARTED ACCU CHECK DONE Q 1 HOUR, NEXT ONE WILL BE AT 2130 1 HOUR POST INITIATION.
--- NOTE | 2018-10-29 20:34 | NUR ---
WELDER TOOL AND DIE NOTE DISCUSSED WITH PHARMACY THE USE OF ALGORITHM ONE FOR THE PATIENT. INSULIN DRIP PROTOCOL FAXED OVER TO PHARMACY.
[2018-10-29] MEDS: HEPARIN SODIUM, PORCINE 5000 UNITS/1 ML VIAL SQ SCH (21:04)
[2018-10-29] MEDS: ACETAMINOPHEN 325 MG TABLET PO PRN (21:06)
--- NOTE | 2018-10-29 21:12 | NUR ---
PEANUT VENDOR NOTE TYLENOL GIVEN FOR FEVER VIA GTUBE PER MD ORDER.
[2018-10-30] VITALS (79 sets, daily range): BP systolic 67–169; BP diastolic 25–108
[2018-10-30] MEDS: BLOOD SUGAR DIAGNOSTIC 1 EACH STRIP IN SCH ×14 (00:56→21:40)
[2018-10-30 01:06] LABS: CALCIUM, SERUM 8.5 mg/dL (8.5-10.1); POTASSIUM 4.3 mmol/L (3.5-5.1)
[2018-10-30 01:08] LABS: CREATININE 7.6 mg/dL (0.6-1.3)
[2018-10-30 02:31] LABS: CALCIUM, SERUM 8.4 mg/dL (8.5-10.1); POTASSIUM 3.8 mmol/L (3.5-5.1)
[2018-10-30 02:43] LABS: CREATININE 7.6 mg/dL (0.6-1.3)
[2018-10-30] MEDS: ACETAMINOPHEN 325 MG TABLET PO PRN ×3 (05:37→23:47)
[2018-10-30 06:50] LABS: CALCIUM, SERUM 8.4 mg/dL (8.5-10.1)
[2018-10-30 06:51] LABS: CREATININE 7.6 mg/dL (0.6-1.3); THYROID STIMULATING HORMONE 1.242 uIU/mL (0.358-3.74)
[2018-10-30] MEDS ORDERED: DEXTROSE 50%-WATER 50 ML DISP.SYRIN IV PRN (10:00)
--- NOTE | 2018-10-30 10:20 | NUR ---
rn note 0730-received patient from rn. patient unresponsive to voice, temperature elevated, tachycardic, on 100% on vent. cooling measures continued. 0830-on dialysis, levophed titrated as needed for bp support.continue monitor patient status 1000-Dr. Soni made rounds, patient remains on dialysis. updated her of patient status.continue monitor status
[2018-10-30] MEDS: PIPERACILLIN /TAZOBACTAM 2.25 G in IV D5W 50 ML IV SCH ×3 (10:38→23:48)
[2018-10-30] MEDS: PANTOPRAZOLE 40 MG TABLET.DR PO SCH (10:53)
[2018-10-30] MEDS: CHOLESTYRAMINE/ASPARTAME 4 G/PKT PACKET GT SCH ×2 (11:43→22:04)
[2018-10-30] MEDS: HEPARIN SODIUM, PORCINE 5000 UNITS/1 ML VIAL SQ SCH ×2 (11:44→21:43)
[2018-10-30] MEDS: INSULIN GLARGINE, 100 UNIT/ML CARTRIDGE SQ SCH (11:46)
[2018-10-30 11:59] LABS: ABG BASE EXCESS 2.6 mmol/L; ABG OXYGEN SATURATION 98.9 % (92.0-98.5); ABG PCO2 25.4 mmHg (35.0-45.0); ABG PH 7.585 (7.350-7.450); ABG PO2 162.9 mmHg (75.0-100.0); AaDO2 524.7 mmHg; COHb 0.2 % (0.5-1.5); MetHb 0.4 % (0.0-1.5); O2Hb 98.3 % (94.0-97.0); SITE, ABG Right Brachial
[2018-10-30] MEDS ORDERED: LEVOFLOXACIN 250 MG /D5W 50 ML 250 MG in PREMIX 1 EA IV SCH (12:00)
[2018-10-30] MEDS: PROSOURCE / PROSTAT (PYXIS) 30 ML UDC GT SCH (12:16)
--- NOTE | 2018-10-30 12:48 | NUR ---
rn notes patient dialysis finished earlier. 2800 out . levophed opngoing, titarted as needed. cooling measures on going. insulin drip discontinued as ordered.monitor glucose as ordered. nati fang [phone] was updated of patient status
[2018-10-30] MEDS: INSULIN REGULAR, HUMAN 100 UNIT/ML 3 ML VIAL SQ PRN ×3 (13:00→22:02)
[2018-10-30] MEDS: LATANOPROST EYE DROP 0.005% 2.5 ML BOTTLE EACHEYE SCH (13:39)
[2018-10-30] MEDS: MIDODRINE HCL (5MG) 5 MG TABLET GT SCH ×2 (13:39→16:36)
[2018-10-30] MEDS ORDERED: VANCOMYCIN 500 MG in IV D5W 100 ML IV PRN (14:00)
[2018-10-30] MEDS ORDERED: EPOETIN ALFA (10,000 UNIT) 10,000 UNIT/ML VIAL IV SCH (16:30)
[2018-10-30] MEDS: DOCUSATE SODIUM 100 MG CAPSULE PO SCH (16:36)
[2018-10-30] MEDS ORDERED: DOSING PER PHARMACY-AMIKACI IV XX PRN (17:00)
[2018-10-30] MEDS ORDERED: FEE PK DOSING 1 MIN EA MC ONE (17:20)
[2018-10-30] MEDS ORDERED: AMIKACIN 350 MG in IV D5W 100 ML IV ONE (18:00)
[2018-10-30] MEDS: BRIMONIDINE TARTRATE OPHT SOLN 5 ML BOTTLE EACHEYE SCH ×2 (18:54→18:55)
[2018-10-30] MEDS: NEPRO 1,000 ML BOTTLE GT PRN (19:00)
--- NOTE | 2018-10-30 19:14 | NUR ---
RN NOTES 1300-BP WITHIN RANGE, TITRATED LEVOPHED NEEDED. PATIENT RESPIRATIONS BETTER THAN EARLIER. SEEMS TO RESPOND TO VOICE WHEN NAME CALLED.MONITOR 1700-ACCUCHECK DONE, INSULIN ADMINISTERED ORDERED.GT FEEDINGS ONGOING. 1830-LEVOPHED OFF, CONITNUE MONITOR BP. VITALS WITHIN ACCEPTABLE RANGE.
[2018-10-30] MEDS: CHLORHEXIDINE GLUCONATE 15 ML UDC MM SCH (21:40)
[2018-10-30] MEDS: LEVETIRACETAM SOL (5 ML) 100 MG/ML UDC GT SCH (21:41)
[2018-10-31] VITALS (108 sets, daily range): BP systolic 68–178; BP diastolic 17–121
[2018-10-31] MEDS: BLOOD SUGAR DIAGNOSTIC 1 EACH STRIP IN SCH ×6 (01:04→21:09)
[2018-10-31] MEDS: INSULIN REGULAR, HUMAN 100 UNIT/ML 3 ML VIAL SQ PRN ×6 (01:06→21:15)
--- NOTE | 2018-10-31 04:39 | NUR ---
pt rec'd rec'd trached on [facility] vent settings as charted per md order. no resp distress or sob noted. sx'd for mod amt of pale yellow secretions. alarms are set and audible. vent plugged into red outlet. ambu bag bedside. will continue to monitor. Addendum: 10/31/18 at 0440 by VITOR TILLMAN RT Amended: Links added.
[2018-10-31 04:43] LABS: EOSINOPHILS % (AUTO) 1.3 % (0.0-6.0); HEMATOCRIT 25 % (33-45); HEMOGLOBIN 8.1 g/dL (11.5-14.8); LYMPHOCYTES # (AUTO) 0.2 /CMM (0.8-4.8); LYMPHOCYTES % (AUTO) 1.9 % (20.0-44.0); MEAN CORPUSCULAR HGB CONC 33 g/dl (31.0-36.0); MEAN CORPUSCULAR VOLUME 96 fL (82-100); MONOCYTES # (AUTO) 0.3 /CMM (0.1-1.30); MONOCYTES % (AUTO) 2.4 % (2.0-12.0); NEUTROPHILS # (AUTO) 11.5 /CMM (1.8-8.9); NEUTROPHILS % (AUTO) 94.4 % (43.0-81.0); PLATELET COUNT (AUTO) 178 /CMM (150-450); RED BLOOD CELL COUNT(AUTO) 2.57 MIL/uL (4.0-5.2); WHITE BLOOD COUNT (AUTO) 12.2 K/uL (4.3-11.0)
[2018-10-31 05:05] LABS: ALBUMIN 1.5 g/dL (3.4-5.0); BILIRUBIN,TOTAL 0.7 mg/dL (0.2-1.0); CALCIUM, SERUM 8.2 mg/dL (8.5-10.1); CREATININE 5.1 mg/dL (0.6-1.3); MAGNESIUM 1.8 mg/dL (1.8-2.4); PHOSPHORUS 3.3 mg/dL (2.5-4.9); POTASSIUM 3.3 mmol/L (3.5-5.1); TOTAL PROTEIN, SERUM 6.9 g/dL (6.4-8.2)
[2018-10-31 07:19] LABS: ABG BASE EXCESS -2.1 mmol/L; ABG OXYGEN SATURATION 99.6 % (92.0-98.5); ABG PCO2 26.2 mmHg (35.0-45.0); ABG PH 7.503 (7.350-7.450); ABG PO2 336.8 mmHg (75.0-100.0); COHb 0.1 % (0.5-1.5); MetHb 0.5 % (0.0-1.5); SITE, ABG Right Brachial
--- NOTE | 2018-10-31 08:04 | NUR ---
RT PATIENT REMAINS TRACHED ON [facility] VENT WITH VENT ALARMS CHECKED + AUDIBLE. PATIENT AIRWAY SUCTIONED WITH SMALL AMT OF WHITE SEMI-THICK SECRETIONS. PATIENT NON RESPONSIVE TO VERBAL COMMANDS. AMBU BAG AT [facility]. CONT CURRENT PLAN OF CARE. Addendum: 10/31/18 at 1439 by DANELLE MORTENSEN RT Amended: Links added.
[2018-10-31] MEDS: PIPERACILLIN /TAZOBACTAM 2.25 G in IV D5W 50 ML IV SCH ×3 (08:05→23:27)
[2018-10-31] MEDS: LEVETIRACETAM SOL (5 ML) 100 MG/ML UDC GT SCH ×2 (08:09→21:11)
[2018-10-31] MEDS: FAMOTIDINE (20 MG) 20 MG TABLET GT SCH (08:09)
[2018-10-31] MEDS: ASCORBIC ACID 500 MG TABLET GT SCH (08:10)
[2018-10-31] MEDS: PANTOPRAZOLE 40 MG TABLET.DR PO SCH (08:10)
[2018-10-31] MEDS: MIDODRINE HCL (5MG) 5 MG TABLET GT SCH ×3 (08:10→16:18)
[2018-10-31] MEDS: DOCUSATE SODIUM 100 MG CAPSULE PO SCH ×2 (08:10→16:17)
[2018-10-31] MEDS: BRIMONIDINE TARTRATE OPHT SOLN 5 ML BOTTLE EACHEYE SCH ×3 (08:23→16:17)
[2018-10-31] MEDS ORDERED: OMEGA PO SCH (09:00)
[2018-10-31] MEDS ORDERED: FISH OIL PO SCH (09:00)
[2018-10-31] MEDS ORDERED: FATTY ACIDS PO SCH (09:00)
[2018-10-31] MEDS: PROSOURCE / PROSTAT (PYXIS) 30 ML UDC GT SCH (09:04)
[2018-10-31] MEDS: VIT B CMPLX 3/FA/VIT C/BIOTIN 1 TAB TABLET GT SCH (09:04)
[2018-10-31] MEDS: CHLORHEXIDINE GLUCONATE 15 ML UDC MM SCH ×2 (09:05→21:11)
[2018-10-31] MEDS: ACETAMINOPHEN 325 MG TABLET PO PRN ×2 (09:05→21:23)
[2018-10-31] MEDS: HEPARIN SODIUM, PORCINE 5000 UNITS/1 ML VIAL SQ SCH ×2 (09:06→21:16)
[2018-10-31] MEDS: CHOLESTYRAMINE/ASPARTAME 4 G/PKT PACKET GT SCH ×2 (11:03→23:27)
--- NOTE | 2018-10-31 11:35 | NUR ---
RN NOTES 0730-RECEIVED PATIENT FROM RN. PATIENT TEMP GETTING ELEVATED AGAIN, TAHCYPNEC, TACHYCARDIC.COOLING MEASURES ONGOING.MONITOR PATIENT STATUS 1000-DR. MATHIS, DR COOPER MADE ROUNDS THEY WERE INFORMED OF PATIENT STATUS, PATIENT BP WITHIN RANGE, LEVOPHED RESTARTED FOR BP SUPPORT. CONTINUE ON COOLING MEASURES. NO SIGN OF PAIN NOTED.
[2018-10-31] MEDS ORDERED: Sodium Bicarbonate 100 MEQ in IV 1/2NS 1000 ML 1,000 ML IV PRN (17:00)
[2018-10-31] MEDS ORDERED: AMIKACIN 350 MG in IV D5W 100 ML IV PRN (17:30)
--- NOTE | 2018-10-31 18:06 | NUR ---
rn notes 1300-acccuehcks done, insulin coverage administered as ordered. temperature noted getting lower than this morning. patient remaisn unresponsive to voice. levophed drip ongoing 1500-no distress. bp within range 1700-daughter called and updated her of patient status.
[2018-10-31] MEDS: LATANOPROST EYE DROP 0.005% 2.5 ML BOTTLE EACHEYE SCH (21:14)
[2018-10-31] MEDS: INSULIN GLARGINE, 100 UNIT/ML CARTRIDGE SQ SCH (21:16)
--- NOTE | 2018-10-31 21:52 | NUR ---
PT RECEIVED ON VENT VIA TRACH ON CHARTED SETTINGS. AIRWAY PATENT AND SECURE VIA TRACH TIE. PT RESPONSIVE TO PAIN. AMBU BAG AT BEDSIDE ALARMS SET AND AUDIBLE. VENT PLUGGED IN TO RED OUTLET. DISCONNECT ALARMS CHECKED. SUCTIONED A SMALL AMOUNT OF THICK WHITE SECRETIONS. PT RECEIVING NO BREATHING TX AT THIS TIME. HEAD OF BED AT 30 DEGREES. MOUTH SUCTIONED VIA LUCIAKAUER. Addendum: 10/31/18 at 2202 by MARIELOS CANADA RT Amended: Links added.
[2018-11-01] VITALS (113 sets, daily range): BP systolic 68–151; BP diastolic 29–88
[2018-11-01] MEDS: BLOOD SUGAR DIAGNOSTIC 1 EACH STRIP IN SCH ×6 (00:13→21:22)
[2018-11-01] MEDS: INSULIN REGULAR, HUMAN 100 UNIT/ML 3 ML VIAL SQ PRN ×5 (00:22→21:27)
[2018-11-01] MEDS: NOREPINEPHRINE 16 MG in IV D5W 500 ML IV PRN ×2 (02:04→08:03)
[2018-11-01] MEDS: ACETAMINOPHEN 325 MG TABLET PO PRN ×2 (05:55→16:16)
[2018-11-01 06:38] LABS: EOSINOPHILS % (AUTO) 1.3 % (0.0-6.0); HEMATOCRIT 24 % (33-45); HEMOGLOBIN 8.1 g/dL (11.5-14.8); LYMPHOCYTES # (AUTO) 0.2 /CMM (0.8-4.8); LYMPHOCYTES % (AUTO) 2.5 % (20.0-44.0); MEAN CORPUSCULAR HGB CONC 33 g/dl (31.0-36.0); MEAN CORPUSCULAR VOLUME 95 fL (82-100); MONOCYTES # (AUTO) 0.2 /CMM (0.1-1.30); MONOCYTES % (AUTO) 2.5 % (2.0-12.0); NEUTROPHILS % (AUTO) 93.7 % (43.0-81.0); PLATELET COUNT (AUTO) 146 /CMM (150-450); RED BLOOD CELL COUNT(AUTO) 2.57 MIL/uL (4.0-5.2); WHITE BLOOD COUNT (AUTO) 9.6 K/uL (4.3-11.0)
[2018-11-01 07:25] LABS: BILIRUBIN,TOTAL 0.7 mg/dL (0.2-1.0); CALCIUM, SERUM 8.1 mg/dL (8.5-10.1); CREATININE 5.8 mg/dL (0.6-1.3); MAGNESIUM 1.8 mg/dL (1.8-2.4); POTASSIUM 2.9 mmol/L (3.5-5.1); TOTAL PROTEIN, SERUM 6.5 g/dL (6.4-8.2)
[2018-11-01 07:33] LABS: ALBUMIN 1.3 g/dL (3.4-5.0)
--- NOTE | 2018-11-01 07:37 | NUR ---
INITIAL RUBBLE PLACER NOTE RCVD PT ABLE TO OPEN EYES, NOT FOLLOWING COMMANDS, REACTS TO PAINFUL STIMULI. RIGID UPPER AND LOWER EXTREMITIES, SR ON MONITOR, TOLERATING ORDERED VENT SETTINGS. G-TUBE PLACEMENT VERIFIED BY AUSCULTATION/ASPIRATION OF GASTRIC CONTENTS, NO RESIDUAL OBTAINED, TOLERATING TUBE FEEDING RATE WELL. SCHEDULED TO HAVE DIALYSIS TODAY. STAN PICC C/D/I/PATENT, NO S/O INFILTRATION/PHLEBITIS OBSERVED UPON FLUSHING, IVF INFUSING ORDERED, PT ON LOW DOSE LEVO FOR BP SUPPORT. WILL CONTINUE TO MONITOR PT FOR SAFETY AND COMFORT, BED IN LOW AND LOCKED POSITION, CALL LIGHT WITHIN REACH, HEAD OF BED ELEVATED.
[2018-11-01] MEDS: CHLORHEXIDINE GLUCONATE 15 ML UDC MM SCH ×2 (08:04→21:28)
[2018-11-01] MEDS: LEVETIRACETAM SOL (5 ML) 100 MG/ML UDC GT SCH ×2 (08:04→21:28)
[2018-11-01] MEDS: PIPERACILLIN /TAZOBACTAM 2.25 G in IV D5W 50 ML IV SCH ×3 (08:04→23:32)
[2018-11-01] MEDS: ASCORBIC ACID 500 MG TABLET GT SCH (08:05)
[2018-11-01] MEDS: VIT B CMPLX 3/FA/VIT C/BIOTIN 1 TAB TABLET GT SCH (08:05)
[2018-11-01] MEDS: MIDODRINE HCL (5MG) 5 MG TABLET GT SCH ×3 (08:05→16:11)
[2018-11-01] MEDS: NEPRO 1,000 ML BOTTLE GT PRN (08:05)
[2018-11-01] MEDS: HEPARIN SODIUM, PORCINE 5000 UNITS/1 ML VIAL SQ SCH ×2 (08:06→21:30)
[2018-11-01] MEDS: DOCUSATE SODIUM 100 MG CAPSULE PO SCH ×2 (08:29→16:12)
[2018-11-01] MEDS: CHOLESTYRAMINE/ASPARTAME 4 G/PKT PACKET GT SCH ×2 (11:41→23:32)
[2018-11-01] MEDS: PROSOURCE / PROSTAT (PYXIS) 30 ML UDC GT SCH (11:41)
--- NOTE | 2018-11-01 11:41 | NUR ---
DIGITAL DEVELOPER NOTE DR. RIVERA IN UNIT AWARE OF PT'S K THIS AM REPLACEMENT ORDERED AND PT UNDERGOING DIALYSIS TX. TOLERATING WELL SO FAR. INFORMED THAT PT HAS A WORKING TORI FISTULA AND RIGHT FEMORAL PERMA CATH. PER CHIN WILDLIFE BIOLOGIST FOR ID RECOMMENDING TO DISCONTINUE PERMACATH, DR RIVERA INFORMED AND RECOMMENDED TO KEEP FOR NOW WILL RE-EVALUATE TOMORROW. CHIN AWARE.
[2018-11-01] MEDS: PANTOPRAZOLE 40 MG/PACK PACK GT SCH (11:43)
[2018-11-01] MEDS: BRIMONIDINE TARTRATE OPHT SOLN 5 ML BOTTLE EACHEYE SCH ×3 (11:46→16:17)
[2018-11-01] MEDS ORDERED: POTASSIUM CHLORIDE 20 MEQ TAB.PRT.SR PO ONE (12:00)
[2018-11-01] MEDS ORDERED: POTASSIUM CHLORIDE 20 MEQ POWDER PACKET PO ONE (12:30)
[2018-11-01] MEDS ORDERED: EPOETIN ALFA (10,000 UNIT) 10,000 UNIT/ML VIAL IV ONE (15:00)
[2018-11-01 15:30] LABS: ABG BASE EXCESS 5.3 mmol/L; ABG OXYGEN SATURATION 92.6 % (92.0-98.5); ABG PCO2 29.6 mmHg (35.0-45.0); ABG PO2 62.5 mmHg (75.0-100.0); AaDO2 116.6 mmHg; COHb 0.8 % (0.5-1.5); MetHb 0.2 % (0.0-1.5); O2Hb 91.7 % (94.0-97.0); PEEP,BG 5 cm H2O; SITE, ABG Right Radial
[2018-11-01] MEDS: HYDROGEL DRESSING 90 GM TUBE TP SCH ×2 (16:03→21:34)
[2018-11-01] MEDS: CLOTRIMAZOLE 1% 15 GM TUBE TP SCH ×2 (16:03→16:26)
--- NOTE | 2018-11-01 17:44 | NUR ---
RESEARCH DIETITIAN NOTE PT REMAINS ON LOW DOSE LEVOPHED TOLERATING ORDERED VENT SETTINGS WHICH WERE ADJUSTED THIS AFTERNOON, SR/ST ON MONITOR WITH LOW GRADE TEMPERATURE ALL DAY, NO CHANGE IN NEURO STATE. DIETARY CONSULT DONE RECOMMEND TO INCREASED RATE TO A GOAL OF 40 ML/HR. PT'S TUBE FEEDING INCREASED TO 30ML/HR NO RESIDUAL IN THE AFTERNOON CHECK. PT HAVING MUCOID BOWEL MOVEMENTS THROUGHOUT SHIFT. PT'S CARE WILL BE ENDORSED TO HATCHERY LABORER RN FOR CONTINUITY OF CARE, BED IN LOW AND LOCKED POSITION.
[2018-11-01] MEDS ORDERED: VANCOMYCIN 1 GM in IV D5W 250 ML IV ONE (18:00)
--- NOTE | 2018-11-01 20:00 | NUR ---
HOSPICE ENTRANCE ATTENDANT - RECEIVED PT ABLE TO OPEN EYES, NOT FOLLOWING COMMANDS, REACTS TO PAINFUL STIMULI. SR ON MONITOR, TOLERATING ORDERED VENT SETTINGS. G-TUBE PLACEMENT VERIFIED BY AUSCULTATION/ASPIRATION OF GASTRIC CONTENTS, NO RESIDUAL OBTAINED, TOLERATING TUBE FEEDING RATE WELL. STAN PICC C/D/I/PATENT, NO S/O INFILTRATION/PHLEBITIS OBSERVED UPON FLUSHING, IVF INFUSING ORDERED, PT ON LOW DOSE LEVO FOR BP SUPPORT. WILL CONTINUE TO MONITOR PT FOR SAFETY AND COMFORT, BED IN LOW AND LOCKED POSITION, CALL LIGHT WITHIN REACH, HEAD OF BED ELEVATED.
--- NOTE | 2018-11-01 20:19 | NUR ---
RECEIVED PT TRACHED PTX 7 ON VENT. PT TOLERATING VENT SETTINGS. SX'D FOR SML AMT OF THIN WHITE SECRETIONS. VENT ALARMS SET AND AUDIBLE. AMBU BAG AT BEDSIDE. TRACH SECURE, CUFF CLERK GUIDE. VENT PLUGGED INTO RED OUTLET. WILL CONTINUE TO MONITOR. Addendum: 11/01/18 at 2020 by BRENT STOVER RT Amended: Links added.
[2018-11-01] MEDS: INSULIN GLARGINE, 100 UNIT/ML CARTRIDGE SQ SCH (21:31)
[2018-11-01] MEDS: LATANOPROST EYE DROP 0.005% 2.5 ML BOTTLE EACHEYE SCH (21:33)
--- NOTE | 2018-11-01 21:45 | NUR ---
LEVO GTT TURNED OFF, BP WNL , WILL CONTINUE TO MONITOR
[2018-11-02] VITALS (53 sets, daily range): BP systolic 81–145; BP diastolic 33–82
[2018-11-02] MEDS: BLOOD SUGAR DIAGNOSTIC 1 EACH STRIP IN SCH ×6 (00:42→20:36)
[2018-11-02] MEDS: INSULIN REGULAR, HUMAN 100 UNIT/ML 3 ML VIAL SQ PRN ×6 (00:44→20:50)
[2018-11-02 05:00] LABS: BASOPHILS % (AUTO) 0.2 % (0.0-2.0); EOSINOPHILS % (AUTO) 1.6 % (0.0-6.0); HEMATOCRIT 24 % (33-45); HEMOGLOBIN 7.8 g/dL (11.5-14.8); LYMPHOCYTES # (AUTO) 0.5 /CMM (0.8-4.8); LYMPHOCYTES % (AUTO) 6.5 % (20.0-44.0); MEAN CORPUSCULAR HGB CONC 33 g/dl (31.0-36.0); MEAN CORPUSCULAR VOLUME 97 fL (82-100); MONOCYTES # (AUTO) 0.3 /CMM (0.1-1.30); MONOCYTES % (AUTO) 3.5 % (2.0-12.0); NEUTROPHILS # (AUTO) 6.8 /CMM (1.8-8.9); NEUTROPHILS % (AUTO) 88.2 % (43.0-81.0); PLATELET COUNT (AUTO) 122 /CMM (150-450); RED BLOOD CELL COUNT(AUTO) 2.44 MIL/uL (4.0-5.2); WHITE BLOOD COUNT (AUTO) 7.8 K/uL (4.3-11.0)
[2018-11-02 05:09] LABS: CALCIUM, SERUM 8.1 mg/dL (8.5-10.1); MAGNESIUM 1.8 mg/dL (1.8-2.4); PHOSPHORUS 2.7 mg/dL (2.5-4.9); POTASSIUM 3.5 mmol/L (3.5-5.1)
[2018-11-02] MEDS: ASCORBIC ACID 500 MG TABLET GT SCH (08:09)
[2018-11-02] MEDS: PIPERACILLIN /TAZOBACTAM 2.25 G in IV D5W 50 ML IV SCH ×2 (08:09→16:20)
[2018-11-02] MEDS: VIT B CMPLX 3/FA/VIT C/BIOTIN 1 TAB TABLET GT SCH (08:10)
[2018-11-02] MEDS: CHLORHEXIDINE GLUCONATE 15 ML UDC MM SCH ×2 (08:10→20:36)
[2018-11-02] MEDS: MIDODRINE HCL (5MG) 5 MG TABLET GT SCH ×3 (08:10→16:31)
[2018-11-02] MEDS: FAMOTIDINE (20 MG) 20 MG TABLET GT SCH (08:10)
[2018-11-02] MEDS: PROSOURCE / PROSTAT (PYXIS) 30 ML UDC GT SCH (08:10)
[2018-11-02] MEDS: PANTOPRAZOLE 40 MG/PACK PACK GT SCH (08:10)
[2018-11-02] MEDS: LEVETIRACETAM SOL (5 ML) 100 MG/ML UDC GT SCH ×2 (08:10→20:35)
[2018-11-02] MEDS: NEPRO 1,000 ML BOTTLE GT PRN (08:11)
[2018-11-02] MEDS: HEPARIN SODIUM, PORCINE 5000 UNITS/1 ML VIAL SQ SCH (08:12)
--- NOTE | 2018-11-02 08:21 | NUR ---
INITIAL LEISURE STUDIES PROFESSOR NOTE RCVD PT ABLE TO OPEN EYES, NOT FOLLOWING COMMANDS OR TRACKING WITH EYES WHEN SPOKEN TO, SR ON MONITOR, OFF PRESSORS SINCE LAST NIGHT PER REPORT. TOLERATING ORDERED VENT SETTINGS. PEG PLACEMENT VERIFIED BY AUSCULTATION/ASPIRATION OF GASTRIC CONTENTS, MINIMAL RESIDUAL OBTAINED, TOLERATING TUBE FEEDING RATE AT GOAL. STAN PICC C/D/I/PATENT, TORI AV FISTULA WITH BRUIT/THRILL PRESENT, PRESSURE DRESSING IN PLACE. RIGHT FEMORAL PERMACATH IN PLACE C/D/I. WILL CONTINUE TO MONITOR PT FOR SAFETY AND COMFORT. BED IN LOW AND LOCKED POSITION, CALL LIGHT WITHIN REACH, HEAD OF BED ELEVATED.
[2018-11-02] MEDS: DOCUSATE SODIUM 100 MG CAPSULE PO SCH ×2 (08:23→16:31)
[2018-11-02] MEDS: BRIMONIDINE TARTRATE OPHT SOLN 5 ML BOTTLE EACHEYE SCH ×3 (08:44→16:30)
[2018-11-02] MEDS: HYDROGEL DRESSING 90 GM TUBE TP SCH ×2 (08:44→20:37)
[2018-11-02] MEDS: CLOTRIMAZOLE 1% 15 GM TUBE TP SCH ×2 (08:44→16:32)
[2018-11-02] MEDS: Z GUARD REMEDY 2 OZ OINT TP SCH (08:45)
[2018-11-02] MEDS: CHOLESTYRAMINE/ASPARTAME 4 G/PKT PACKET GT SCH ×2 (10:55→21:59)
--- NOTE | 2018-11-02 11:19 | NUR ---
EXCHANGE CLERK NOTE DR. MATHIS AT PT'S BEDSIDE UPDATED ON PT'S CONDITION, LEVO OFF SINCE ~2200 PER REPORT. VITALS REMAINED STABLE DURING SHIFT. MD INFORMED OF POSSIBLE VAGINAL BLEEDING OBSERVED UPON CLEANING PT, HGB DROPPED 0.3 THIS AM. RN REQUESTED HEPARIN BE DISCONTINUED AND SCD TO RECOMMENDED. MD AGREED. WILL CONTINUE TO MONITOR PT.
[2018-11-02 13:56] LABS: ABG BASE EXCESS 1.9 mmol/L; ABG OXYGEN SATURATION 97.5 % (92.0-98.5); ABG PCO2 32.4 mmHg (35.0-45.0); ABG PH 7.504 (7.350-7.450); ABG PO2 98.4 mmHg (75.0-100.0); AaDO2 149.5 mmHg; COHb 1.5 % (0.5-1.5); MetHb 0.3 % (0.0-1.5); O2Hb 95.7 % (94.0-97.0); PEEP,BG 0 cm H2O; SITE, ABG Right Radial; VT, ABG 400 mL
--- NOTE | 2018-11-02 17:56 | NUR ---
RN SANE NOTE PT REMAINS OFF PRESSORS, NO S/O DISTRESS OBSERVED. VITAL SIGNS REMAINED STABLE DURING SHIFT, SR ON MONITOR, TOLERATING ORDERED VENT SETTINGS. G-TUBE PLACEMENT VERIFIED BY AUSCULTATION/ASPIRATION OF GASTRIC CONTENTS, NO RESIDUAL OBTAINED, STAN PICC C/D/I/PATENT, NO S/O INFILTRATION/PHLEBITIS OBSERVED UPON FLUSHING. PT'S CARE WILL BE ENDORSED TO ENGINEERING OFFICER RN FOR CONTINUITY OF CARE, BED IN LOW AND LOCKED POSITION, CALL LIGHT WITHIN REACH, HEAD OF BED ELEVATED.
--- NOTE | 2018-11-02 20:00 | NUR ---
NON DESTRUCTIVE TESTING TECHNICIAN NOTE PATIENT NOTED TO HAVE LOW GRADE FEVER. (101.1) COOLING MEASURES IMPLEMENTED. PATIENT IN NO OTHERS S/S OF DISTRESS AT THIS TIME. PATIENT TOLERATING AND SATURATING WELL ON VENT SETTINGS.
[2018-11-02] MEDS: RIFAMPIN 300 MG CAPSULE PO SCH (20:50)
[2018-11-02] MEDS: INSULIN GLARGINE, 100 UNIT/ML CARTRIDGE SQ SCH (22:06)
[2018-11-02] MEDS: LATANOPROST EYE DROP 0.005% 2.5 ML BOTTLE EACHEYE SCH (22:15)
[2018-11-03] VITALS (22 sets, daily range): BP systolic 101–156; BP diastolic 30–95
[2018-11-03] MEDS: PIPERACILLIN /TAZOBACTAM 2.25 G in IV D5W 50 ML IV SCH ×4 (00:04→23:23)
[2018-11-03] MEDS: BLOOD SUGAR DIAGNOSTIC 1 EACH STRIP IN SCH ×6 (00:04→21:54)
[2018-11-03] MEDS: INSULIN REGULAR, HUMAN 100 UNIT/ML 3 ML VIAL SQ PRN ×6 (00:05→21:56)
[2018-11-03 07:30] LABS: CREATININE 5.1 mg/dL (0.6-1.3); POTASSIUM 4.4 mmol/L (3.5-5.1)
[2018-11-03] MEDS: NEPRO 1,000 ML BOTTLE GT PRN (08:08)
[2018-11-03] MEDS: RIFAMPIN 300 MG CAPSULE PO SCH ×2 (08:27→17:23)
[2018-11-03] MEDS: LEVETIRACETAM SOL (5 ML) 100 MG/ML UDC GT SCH ×2 (08:28→20:19)
[2018-11-03] MEDS: PANTOPRAZOLE 40 MG/PACK PACK GT SCH (08:28)
[2018-11-03] MEDS: MIDODRINE HCL (5MG) 5 MG TABLET GT SCH ×3 (08:28→17:00)
[2018-11-03] MEDS: CHLORHEXIDINE GLUCONATE 15 ML UDC MM SCH ×2 (08:28→20:18)
[2018-11-03] MEDS: VIT B CMPLX 3/FA/VIT C/BIOTIN 1 TAB TABLET GT SCH (08:29)
[2018-11-03] MEDS: ASCORBIC ACID 500 MG TABLET GT SCH (08:29)
[2018-11-03] MEDS: DOCUSATE SODIUM 100 MG CAPSULE PO SCH ×2 (08:29→17:23)
[2018-11-03 08:53] LABS: ABG BASE EXCESS -0.8 mmol/L; ABG OXYGEN SATURATION 95.8 % (92.0-98.5); ABG PCO2 32.1 mmHg (35.0-45.0); ABG PH 7.466 (7.350-7.450); ABG PO2 85.6 mmHg (75.0-100.0); AaDO2 162.7 mmHg; COHb 1.1 % (0.5-1.5); MetHb 0.6 % (0.0-1.5); O2Hb 94.2 % (94.0-97.0); PEEP,BG 0 cm H2O; SITE, ABG Right Radial; VT, ABG 400 mL
[2018-11-03] MEDS: CLOTRIMAZOLE 1% 15 GM TUBE TP SCH ×2 (09:00→17:26)
[2018-11-03] MEDS: Z GUARD REMEDY 2 OZ OINT TP SCH (09:01)
[2018-11-03] MEDS: BRIMONIDINE TARTRATE OPHT SOLN 5 ML BOTTLE EACHEYE SCH ×3 (09:01→17:26)
[2018-11-03] MEDS: HYDROGEL DRESSING 90 GM TUBE TP SCH ×2 (09:02→21:16)
[2018-11-03] MEDS: PROSOURCE / PROSTAT (PYXIS) 30 ML UDC GT SCH (09:03)
--- NOTE | 2018-11-03 10:01 | NUR ---
WOUND CARE CONSULT WOUND CARE RECEIVED CONSULT FOR SACRAL WOUND AND LOW CABRERA SCORE. WOUND CARE WILL DEFER CONSULT AND TREATMENT PLANS TO PLASTIC SURGICAL TEAM WHO ARE CURRENTLY FOLLOWING THIS PATIENT. PATIENT WITH CABRERA AT 12, ALL PRESSURE ULCER PREVENTION MEASURES ARE NOTED TO BE IN PLACE AT THIS TIME. WILL SEE PRN.
[2018-11-03] MEDS: CHOLESTYRAMINE/ASPARTAME 4 G/PKT PACKET GT SCH ×2 (10:05→23:18)
--- NOTE | 2018-11-03 10:37 | NUR ---
RN NOTES 0730-RECEIVED PATIENT FROM RN. PATIENT REMAINS ON AC MODE OF VENTILATION.OFF PRESSOR, TEMP NOTED AT 99'S. UNRESPONSIVE TO VOICE, NOT FOLLOWING COMMANDS. OPENS EYES AT TIMES.LEFT UPPER ARM AV SHUNT WITH CRLEAN,DRY,INTACT DRESSINGS, WITH BRUITS AND THRILLS, FOR HD TODAY.BP WITHIN ACCEPTABLE RANGE
[2018-11-03] MEDS ORDERED: LIDOCAINE 1%-EPI 1:100,000 20 ML VIAL TP ONE (13:30)
--- NOTE | 2018-11-03 14:45 | NUR ---
RN NOTES 1300-AFEBRILE. ACCUCHECKS DONE, INSULIN COVERAGE ADMINISTERED ORDERED.OPENS EYES WHEN STIMULATED.REPOSIITONED FOR COMFORT AND SAFETY 1430-EYES OPEN SPONTANEOUSLY. BP WITHIN RANGE. AWAITING HD.
--- NOTE | 2018-11-03 16:20 | NUR ---
RAJ WARRANTY CLERK NOTES REPORT GIVEN BY OLIVIA IN ICU.PT TRANSFERRED FROM ICU TI ROOM 111-2,CAN OPEN EYES,OBTUNDED.ON TELE HR IS 92 WITH SR.MECH AND VENT DEPENDENT WITH PORTEX 7 AC 14 AND TV-400,FIO2-40%,TOLERATING WELL.NO SOB AND ACUTE DISTRESS NOTED.RIGHT UA PICC LINE AND AV SHUNT ON LEFT UA PRESENT,SITE IS CLEAN,DRY AND INTACT.NO INFILTRATION NOTED.BED IS IN LOW POSITION AND LOCKED,CALL LIGHT IS WITHIN REACH.WOUND DRESSING HAS DONE BY ICU STAFF PER THE REPORT.SCD PRESENT BILATERAL.WILL CONTINUE TO MONITOR THE PT CLOSELY.
--- NOTE | 2018-11-03 17:44 | NUR ---
RN NOTES 1613-VS STABLE. TRANSFERRED TO [facility]-2, ACLS PROTOCOL UTILIZED. HD TO BE DONE NEXT SHIFT PER HD NURSE.REPORT GIVEN TO RN FOR FURTHER CARE
--- NOTE | 2018-11-03 18:33 | NUR ---
MS RN CLOSING NOTES PT IS LYING ON BED WITH PEG TUBE AND IV ANTIBIOTICS RUNNING.RESPIRATION IS EVEN AND NONLABORED.ALL DUE MEDS ARE GIVEN.REPORT GIVEN TO PATROL MOTHER RN FOR SHERRY. Addendum: 11/03/18 at 1836 by TALA MAGDALENO RN ON TELE HR IS SR WITH 90.
--- NOTE | 2018-11-03 19:00 | NUR ---
RAJ RN OPENING NOTES RECEIVED BEDSIDE REPORT FROM LAWRENCE EDGAR. PATIENT IN BED, OBTUNDED, BUT OPENS EYES TO TACTILE STIMULI. ON TELE MONITOR SR WITH HR 80S. ON MECH AND VENT DEPENDENT WITH PORTEX 7, AC 14 AND TV-400, FIO2-40%, TOLERATING WELL. NO SOB AND ACUTE DISTRESS NOTED. RIGHT UA PICC LINE, SL, SITE CLEAN, DRY, INTACT, FLUSHING AND PATENT. AV SHUNT ON LEFT UA PRESENT, SITE C/D/I. NO INFILTRATION NOTED ON BOTH IV SITES. GTUBE IN PLACE, FLUSHED AND PATENT, NO RESIDUAL NOTED, GTUBE FEEDING RUNNING AT 40CC/HR, TOLERATING WELL. BED IS IN LOW POSITION AND LOCKED, CALL LIGHT WITHIN REACH. SCD PRESENT BILATERAL. WILL CONTINUE TO MONITOR THE PT CLOSELY. PER REPORT, PATIENT WILL HAVE DIALYSIS AT 2200/2300.
--- NOTE | 2018-11-03 21:18 | NUR ---
RT NOTE PATIENT RECEIVED TRACHED ON MECHANICAL VENTILATION. PORTEX [address] AMBU BAG @ BEDSIDE. VENT ALARMS ON AND AUDIBLE. SX DONE, TRACH SECURED AND PATENT. PATIENT STABLE AT THIS TIME. WILL MONITOR T/O SHIFT. CONTINUOUS PULSE OX CONNECTED. Addendum: 11/03/18 at 2119 by KEVIN DANIEL RT Amended: Links added.
[2018-11-03] MEDS: LATANOPROST EYE DROP 0.005% 2.5 ML BOTTLE EACHEYE SCH (21:57)
[2018-11-03] MEDS: INSULIN GLARGINE, 100 UNIT/ML CARTRIDGE SQ SCH (21:58)
[2018-11-04] VITALS: BP 130/58
[2018-11-04] MEDS: BLOOD SUGAR DIAGNOSTIC 1 EACH STRIP IN SCH ×6 (01:55→21:57)
[2018-11-04] MEDS: INSULIN REGULAR, HUMAN 100 UNIT/ML 3 ML VIAL SQ PRN ×6 (02:13→22:16)
[2018-11-04 04:00] VITALS: BP 125/48
[2018-11-04] MEDS: NEPRO 1,000 ML BOTTLE GT PRN (05:31)
--- NOTE | 2018-11-04 07:00 | NUR ---
RAJ RN CLOSING NOTES PT SLEEPING IN BED, BUT EASY TO AROUSE. ON TELE MONITOR SR WITH HR 90S. ON MECH AND VENT DEPENDENT WITH PORTEX 7, AC 14 AND TV-400, FIO2-40%, TOLERATING WELL. NO SOB AND ACUTE DISTRESS NOTED. GTUBE IN PLACE, FLUSHED AND PATENT, MINIMAL RESIDUAL NOTED, GTUBE FEEDING RUNNING AT 40CC/HR, TOLERATING WELL. BED IS IN LOW POSITION AND LOCKED, CALL LIGHT WITHIN REACH. SCD PRESENT BILATERAL. NO ACUTE CHANGES THROUGHOUT SHIFT. REPOSITIONED Q2H. ALL MD ORDERS ATTENDED. ALL NEEDS ANTICIPATED AND MET. CALLED DAUGHTER FOR CONSENT BUT NO ANSWER. LEFT VOICEMAIL FOR CALL BACK. ENDORSED TO AM RN FOR SHERRY.
[2018-11-04 07:09] LABS: BASOPHILS % (AUTO) 0.6 % (0.0-2.0); EOSINOPHILS % (AUTO) 2.6 % (0.0-6.0); HEMATOCRIT 23 % (33-45); HEMOGLOBIN 7.8 g/dL (11.5-14.8); LYMPHOCYTES % (AUTO) 17.4 % (20.0-44.0); MEAN CORPUSCULAR HGB CONC 33 g/dl (31.0-36.0); MEAN CORPUSCULAR VOLUME 96 fL (82-100); MONOCYTES # (AUTO) 0.5 /CMM (0.1-1.30); NEUTROPHILS # (AUTO) 4.2 /CMM (1.8-8.9); NEUTROPHILS % (AUTO) 70.4 % (43.0-81.0); PLATELET COUNT (AUTO) 124 /CMM (150-450); RED BLOOD CELL COUNT(AUTO) 2.44 MIL/uL (4.0-5.2)
[2018-11-04 07:14] LABS: CALCIUM, SERUM 8.7 mg/dL (8.5-10.1); POTASSIUM 3.7 mmol/L (3.5-5.1)
--- NOTE | 2018-11-04 07:30 | NUR ---
RN OPENING NOTES RECEIVED PATIENT IN BED RESTING COMFORTABLY. PATIENT ABLE TO RESPOND TO TACTILE STIMULI. NO ACUTE DISTRESS AT THIS TIME. NO FACIAL GRIMING WELL. PATIENT ON TELE MONITOR, HR AROUND 80'S. PATIENT ON [facility] VENTILATOR WITH PORTEX 7, AC 14 AND TV-400, FIO2-40%, TOLERATING WELL. NO SOB. PATIENT NOTED WITH IV ACCESS ON RIGHT UA PICC LINE. SITE CLEAN, DRY, INTACT, FLUSHING AND PATENT. NO S/S OF INFILTRATION AND INFECTION. NOTED WITH AV SHUNT ON LEFT UA. GTUBE IN PLACE WELL, FLUSHED AND PATENT, NO RESIDUAL NOTED AT THIS TIME, GTUBE FEEDING RUNNING AT 40CC/HR, TOLERATING WELL. HOB ELEVATED AT ALL TIMES. ALL NEEDS ANTICIPATED. KEPT CLEAN AND DRY. CALL LIGHT WITHIN REACHED. BED LOCKED AND IN LOWEST POSITION. SAFETY MAINTAINED. SIDERAILS UP X2. WILL CONTINUE TO MONITOR CLOSELY.
[2018-11-04 08:00] VITALS: BP 138/52
[2018-11-04] MEDS: PIPERACILLIN /TAZOBACTAM 2.25 G in IV D5W 50 ML IV SCH ×2 (08:17→16:29)
[2018-11-04] MEDS: LEVETIRACETAM SOL (5 ML) 100 MG/ML UDC GT SCH ×2 (08:48→21:34)
[2018-11-04] MEDS: FAMOTIDINE (20 MG) 20 MG TABLET GT SCH (08:48)
[2018-11-04] MEDS: VIT B CMPLX 3/FA/VIT C/BIOTIN 1 TAB TABLET GT SCH (08:48)
[2018-11-04] MEDS: BRIMONIDINE TARTRATE OPHT SOLN 5 ML BOTTLE EACHEYE SCH ×3 (08:48→16:52)
[2018-11-04] MEDS: RIFAMPIN 300 MG CAPSULE PO SCH ×2 (08:49→16:50)
[2018-11-04] MEDS: CHLORHEXIDINE GLUCONATE 15 ML UDC MM SCH ×2 (08:49→21:34)
[2018-11-04] MEDS: PANTOPRAZOLE 40 MG/PACK PACK GT SCH (08:49)
[2018-11-04] MEDS: DOCUSATE SODIUM 100 MG CAPSULE PO SCH ×2 (08:49→16:51)
[2018-11-04] MEDS: ASCORBIC ACID 500 MG TABLET GT SCH (08:52)
[2018-11-04] MEDS: PROSOURCE / PROSTAT (PYXIS) 30 ML UDC GT SCH (08:52)
[2018-11-04] MEDS: MIDODRINE HCL (5MG) 5 MG TABLET GT SCH ×3 (09:05→16:50)
[2018-11-04] MEDS: CLOTRIMAZOLE 1% 15 GM TUBE TP SCH ×2 (09:24→16:53)
[2018-11-04] MEDS: Z GUARD REMEDY 2 OZ OINT TP SCH (09:24)
[2018-11-04] MEDS: HYDROGEL DRESSING 90 GM TUBE TP SCH ×2 (09:24→21:34)
--- NOTE | 2018-11-04 09:40 | NUR ---
RN NOTES DEBRIDEMENT PROCEDURE WAS DONE AT BEDSIDE. PATIENT CONTINUES TO REMAIN IS STABLE CONDITION. PATIENT TOLERATED THE PROCEDURE WELL. WILL CONTINUE TO MONITOR CLOSELY.
--- NOTE | 2018-11-04 10:27 | NUR ---
RN NOTES DIALYSIS NURSE AT BEDSIDE PERFORMING DIALYSIS ON THE PATIENT. PATIENT REMAINS IN STABLE CONDITION. WILL CONTINUE TO MONITOR.
--- NOTE | 2018-11-04 10:35 | NUR ---
RN NOTES SPOKE TO THE DIALYSIS NURSE, ACCORDING TO HIM THE PATIENT IS OOZING ON THE DIALYSIS SITE. HE IS UNABLE TO CONTINUE DIALYSIS AT THE MOMENT. DIALYSIS NURSE SAID HE ALREADY CONTACTED DR. KAUR AND REPORTED THE SITUATION. DIALYSIS NURSE SAID THAT AFTER SHE IS SEEN AND EVALUATED BY DR. KAUR AND IF HE OK TO DIALYLIZE AGAIN HE WOULD JUST COME BACK LATER TO DO IT. PATIENT IN STABLE CONDITION AT THE MOMENT. WILL CONTINUE TO MONITOR.
[2018-11-04] MEDS: CHOLESTYRAMINE/ASPARTAME 4 G/PKT PACKET GT SCH ×2 (11:24→22:20)
[2018-11-04 12:00] VITALS: BP 130/72
--- NOTE | 2018-11-04 14:39 | NUR ---
RN NOTES RECEIVED A CALL FROM DIALYSIS NURSE, SHE SAID THAT SHE WILL BE COMING BY TO DO DIALYSIS ON THE PATIENT AROUND 5PM TODAY. PATIENT CONTINUES TO REMAIN IN STABLE CONDITION. WILL CONTINUE TO MONITOR.
[2018-11-04 16:00] VITALS: BP 100/58
[2018-11-04] MEDS ORDERED: ALBUMIN 25% 25 GM in PREMIX 1 EA IV PRN (18:30)
--- NOTE | 2018-11-04 19:00 | NUR ---
RAJ RN OPENING NOTES PATIENT SLEEPING IN BED, BUT EASY TO AROUSE. ON TELE MONITOR ST WITH HR 110. HEMODIALYSIS AT BEDSIDE. ON MECH AND VENT DEPENDENT WITH PORTEX 7, AC 14 AND TV-400, FIO2-40%, TOLERATING WELL. IV SITE STAN PICC S/L, SITE C/D/I, FLUSHING WELL. TORI AV SHUNT NOTED, SITE C/D/I, CURRENTLY BEING USED BY HD. NO SOB AND ACUTE DISTRESS NOTED. GTUBE IN PLACE, FLUSHED AND PATENT, MINIMAL RESIDUAL NOTED, GTUBE FEEDING RUNNING AT 40CC/HR, TOLERATING WELL. SAFETY MEASURES IN PLACE. BED IS IN LOW POSITION AND LOCKED, CALL LIGHT WITHIN REACH. SCD PRESENT BILATERAL. WILL REPOSITION Q2H. WILL CONT TO MONITOR PT CLOSELY.
--- NOTE | 2018-11-04 19:19 | NUR ---
RN CLOSING NOTES PATIENT CONTINUES TO REMAIN IS STABLE CONDITION. PATIENT ON DIALYSIS AT THE MOMENT. DIALYSIS NURSE AT BEDSIDE. PATIENT ABLE TO TOLERATE IT WELL. PROVIDED COMFORT AND SAFETY. PATIENT ABLE TO TOLERATE FEEDING AND MEDS WELL. IV ACCESS ON STAN INTACT AND PATENT. NO S/S OF INFECTION OR INFILTRATION. FLUSHING WELL. HOB ELEVATED AT ALL TIMES TO PREVENT ASPIRATION. PATIENT WAS ALSO ABLE TO TOLERATE DEBRIDEMENT WELL. TREATMENT WAS DONE ORDERED. ALL NEEDS ANTICIPATED. KEPT CLEAN AND DRY. CALL LIGHT WITHIN REACHED. REPOSITIONED Q2HRS. WILL CONTINUE TO MONITOR. ENDORSED TO PM NURSE FOR SHERRY.
[2018-11-04 20:00] VITALS: BP 109/58
[2018-11-04] MEDS: INSULIN GLARGINE, 100 UNIT/ML CARTRIDGE SQ SCH (22:16)
[2018-11-04] MEDS: LATANOPROST EYE DROP 0.005% 2.5 ML BOTTLE EACHEYE SCH (22:17)
[2018-11-05] VITALS: BP 145/63
[2018-11-05] MEDS: PIPERACILLIN /TAZOBACTAM 2.25 G in IV D5W 50 ML IV SCH ×2 (00:10→08:12)
--- NOTE | 2018-11-05 00:20 | NUR ---
RAJ RN NOTES PATIENT TEMP 100 TAKEN AXILLARY. COOLING MEASURES IN PLACE. WILL GIVE PATIENT COLD BATH. WILL CONT TO MONITOR CLOSELY.
[2018-11-05] MEDS: BLOOD SUGAR DIAGNOSTIC 1 EACH STRIP IN SCH ×6 (01:32→20:09)
[2018-11-05] MEDS: INSULIN REGULAR, HUMAN 100 UNIT/ML 3 ML VIAL SQ PRN ×4 (01:38→20:10)
--- NOTE | 2018-11-05 03:27 | NUR ---
RAJ RN NOTES RECHECKED PATIENT 99.6 POST COLD BATH. COOLING MEASURES STILL IN PLACE. WILL ADMINISTER TYLENOL PRN.
[2018-11-05] MEDS: ACETAMINOPHEN 325 MG TABLET PO PRN (03:36)
[2018-11-05] MEDS: NEPRO 1,000 ML BOTTLE GT PRN (03:58)
[2018-11-05 04:00] VITALS: BP 143/40
--- NOTE | 2018-11-05 05:40 | NUR ---
RAJ RN NOTES RECHECKED PATIENT TEMP NOW 98.5. WILL CONT TO MONITOR PT.
[2018-11-05 06:59] LABS: BASOPHILS % (AUTO) 0.5 % (0.0-2.0); EOSINOPHILS % (AUTO) 1.2 % (0.0-6.0); HEMATOCRIT 22 % (33-45); HEMOGLOBIN 7.2 g/dL (11.5-14.8); LYMPHOCYTES # (AUTO) 0.7 /CMM (0.8-4.8); LYMPHOCYTES % (AUTO) 11.6 % (20.0-44.0); MEAN CORPUSCULAR HGB CONC 33 g/dl (31.0-36.0); MEAN CORPUSCULAR VOLUME 97 fL (82-100); MONOCYTES # (AUTO) 0.5 /CMM (0.1-1.30); MONOCYTES % (AUTO) 8.7 % (2.0-12.0); NEUTROPHILS # (AUTO) 4.7 /CMM (1.8-8.9); PLATELET COUNT (AUTO) 128 /CMM (150-450); RED BLOOD CELL COUNT(AUTO) 2.26 MIL/uL (4.0-5.2)
--- NOTE | 2018-11-05 07:20 | NUR ---
RAJ RN CLOSING NOTES PATIENT SLEEPING IN BED, BUT EASY TO AROUSE. ON TELE MONITOR SR WITH HR 80S. PATIENT AFEBRILE. ON MECH AND VENT DEPENDENT, SETTINGS ORDERED, TOLERATING WELL, SATURATION 100%. IV SITE STAN PICC S/L, SITE C/D/I, FLUSHING WELL. TORI AV SHUNT NOTED, SITE C/D/I. NO SOB AND ACUTE DISTRESS NOTED. GTUBE IN PLACE, FLUSHED AND PATENT, MINIMAL RESIDUAL NOTED, GTUBE FEEDING RUNNING AT 40CC/HR, TOLERATING WELL. SAFETY MEASURES IN PLACE. BED IS IN LOW POSITION AND LOCKED, CALL LIGHT WITHIN REACH. SCD PRESENT BILATERAL. REPOSITIONED Q2H. ALL MD ORDERS ATTENDED. ALL NEEDS MET AND ANTICIPATED. ENDORSED TO AM RN FOR SHERRY.
--- NOTE | 2018-11-05 07:23 | NUR ---
RAJ RN OPENING NOTES PATIENT IN BED SLEEPING COMFORTABLY. EASILY AROUSABLE. NO FACIAL GRIMACING OR ACUTE DISTRESS AT THIS TIME. HOB OF BED ELEVATED AT ALL TIMES. PATIENT ON VENT WITH PORTEX 7, AC 14 AND TV-400, FIO2-40%, TOLERATING WELL. NO RESPIRATORY DISTRESS AT THIS TIME. PATIENT ON TELE MONITORING WELL. SINUS RHYTHM AROUND 80-90'S HR. IV ACCESS ON STAN PICC S/L, INTACT AND PATENT. FLUSHING WELL. TORI AV SHUNT NOTED, INTACT WELL. GTUBE IN PLACE, FLUSHED AND PATENT, MINIMAL RESIDUAL NOTED, GTUBE FEEDING RUNNING AT 40CC/HR, TOLERATING WELL. ALL NEEDS ANTICIPATED. KEPT CLEAN AND DRY. CALL LIGHT WITHIN REACHED. BED LOCKED AND IN LOWEST POSITION. SAFETY MEASURES IN PLACE. REPOSITION Q2HRS. WILL CONTINUE TO MONITOR PT CLOSELY.
[2018-11-05 07:25] LABS: CALCIUM, SERUM 8.5 mg/dL (8.5-10.1); CREATININE 3.7 mg/dL (0.6-1.3); POTASSIUM 3.6 mmol/L (3.5-5.1)
[2018-11-05 08:00] VITALS: BP_SYST 105; BP_SYST 128; BP_DIAS 42; BP_DIAS 70
[2018-11-05] MEDS: CHLORHEXIDINE GLUCONATE 15 ML UDC MM SCH ×2 (08:44→20:08)
[2018-11-05] MEDS: LEVETIRACETAM SOL (5 ML) 100 MG/ML UDC GT SCH ×2 (08:44→20:08)
[2018-11-05] MEDS: VIT B CMPLX 3/FA/VIT C/BIOTIN 1 TAB TABLET GT SCH (08:45)
[2018-11-05] MEDS: PANTOPRAZOLE 40 MG/PACK PACK GT SCH (08:45)
[2018-11-05] MEDS: DOCUSATE SODIUM 100 MG CAPSULE PO SCH ×2 (08:45→16:57)
[2018-11-05] MEDS: RIFAMPIN 300 MG CAPSULE PO SCH ×2 (08:45→16:57)
[2018-11-05] MEDS: MIDODRINE HCL (5MG) 5 MG TABLET GT SCH ×3 (08:45→16:57)
[2018-11-05] MEDS: BRIMONIDINE TARTRATE OPHT SOLN 5 ML BOTTLE EACHEYE SCH ×3 (08:45→17:01)
[2018-11-05] MEDS: ASCORBIC ACID 500 MG TABLET GT SCH (08:45)
[2018-11-05] MEDS: Z GUARD REMEDY 2 OZ OINT TP SCH (09:23)
[2018-11-05] MEDS: HYDROGEL DRESSING 90 GM TUBE TP SCH ×2 (09:24→21:53)
[2018-11-05] MEDS: CLOTRIMAZOLE 1% 15 GM TUBE TP SCH ×2 (09:29→17:06)
[2018-11-05] MEDS: PROSOURCE / PROSTAT (PYXIS) 30 ML UDC GT SCH (09:32)
--- NOTE | 2018-11-05 10:52 | NUR ---
RN NOTES INFORMED HOSPITALIST NICKY ABOUT THE GTUBE MALFUCTIONING. HE ORDERED GI COSULT FOR POSSIBLE GTUBE REPLACEMENT. ACCORDING TO HIM HE ALREADY INFORMED BRYAN LERNER NP REGARDING THE SITUATION. PATIENT REMAINS IN STABLE CONDITION. WILL CONTINUE TO MONITOR.
[2018-11-05] MEDS: CHOLESTYRAMINE/ASPARTAME 4 G/PKT PACKET GT SCH ×2 (11:00→22:47)
--- NOTE | 2018-11-05 11:20 | NUR ---
RN NOTES MEDICATION QUESTRAN NOT GIVEN DUE TO GTUBE MALFUNCTIONING. STILL AWAITING FOR GI CONSULT. PATIENT REMAINS IN STABLE CONDITION. WILL CONTINUE TO MONITOR.
[2018-11-05 12:00] VITALS: BP 104/55
--- NOTE | 2018-11-05 12:36 | NUR ---
RN NOTES MEDICATION MIDODRINE NOT GIVEN DUE TO GTUBE MALFUNCTION. PATIENT REMAINS IN STABLE CONDITION. WILL CONTINUE TO MONITOR.
[2018-11-05 16:00] VITALS: BP_SYST 145; BP_DIAS 35; BP_DIAS 38
--- NOTE | 2018-11-05 16:58 | NUR ---
RN NOTES MEDICATION RIFAMPIN, COLACE, AND MIDODRINE HELD DUE TO GTUBE MALFUNCTION. PATIENT REMAINS IN STABLE CONDITION. WILL CONTINUE TO MONITOR.
--- NOTE | 2018-11-05 17:35 | NUR ---
RN NOTES BRYAN LERNER NP ARRIVED AT THE UNIT TO REPLACE THE GTUBE. PROCEDURE WAS DONE. PLACED AN ORDER FOR A STAT KUB WITH GASTROGRAFIN. AWAITING FOR RADIOLOGY. PATIENT REMAINS IN STABLE CONDITION. WILL CONTINUE TO MONITOR.
[2018-11-05] MEDS ORDERED: DIATR MEGLU/DIATRIZOATE SODIUM 30 ML BOTTLE (GASTROGRAPHIN) ONE (17:46)
--- NOTE | 2018-11-05 18:50 | NUR ---
RN CLOSING NOTES PATIENT CONTINUES TO REMAIN IN STABLE CONDITION. PROVIDED COMFORT AND SAFETY. NO PAIN OR ACUTE DISTRESS AT THIS TIME. RESPIRATION EVEN AND UNLABORED. SKIN IS DRY WARM TO TOUCH. STILL AWAITING FOR RESULTS OF THE KUB TO BE ABLE TO DISCHARGE PATIENT TO [facility]. ENDORSED TO PM NURSE THAT DISCHARGE PAPERS ARE READY, FAMILY MEMBER MADE AWARE OF THE TRANSFER WELL. ALL NEEDS ANTICIPATED. KEPT CLEAN AND DRY. CALL LIGHT WITHIN REACHED. BED LOCKED AND IN LOWEST POSITION. WILL CONTINUE TO MONITOR.
--- NOTE | 2018-11-05 19:05 | NUR ---
DIRECTOR OF HOTEL NOTE PATIENT REPORT GIVEN BEDSIDE. PATIENT RECEIVED IN BED OBTUNDED, NON VERBAL, OPENS EYES. NO S.S OF DISTRESS. PATIENT TOLERATING PRESCRIBED VENT SETTINGS AT THIS TIME. NO RESPIRATORY DISTRESS NOTED, BREATHING EVEN AND UNLABORED. PATIENT SUCTIONED AND TURNED FOR COMFORT. ISOLATION PRECAUTIONS OBSERVED. MADE AWARE OF PATIENT PLAN TO D/C TO [facility]. PATIENT SR ON THE MONITOR, HR 81. RN WILL CONTINUE TO MONITOR.
--- NOTE | 2018-11-05 19:11 | NUR ---
BAR PILOT NOTE REPORT GIVEN TO LAWRENCE KELLEY AT [facility]. PATIENT ESTIMATED MEDICAL RECORDS SUPERVISOR TIME IS 2100. PATIENT IS GOING TO ROOM 3347.
[2018-11-05 20:00] VITALS: BP 104/53
--- NOTE | 2018-11-05 21:30 | NUR ---
COMPUTER NUMERIC CONTROL SETTER NOTE [facility] CALLED TO CONFIRM NEW ETA OF 22.30. RN WILL CONTINUE TO MONITOR PATIENT AND RENDER CARE ORDERED.
--- NOTE | 2018-11-05 22:00 | NUR ---
MATH SPECIALIST NOTE CT OF ABDOMEN RESULTS REPORTED TO ZAHIDA. SANDOR BROWN CONFIRMED FINDINGS THAT GTUBE WAS CORRECTLY PLACED AND GAVE THE OKAY TO D/C PATIENT. RESULTS WERE REPORTED TO WARREN AT [facility].
[2018-11-05] MEDS: LATANOPROST EYE DROP 0.005% 2.5 ML BOTTLE EACHEYE SCH (22:47)
[2018-11-05] MEDS: INSULIN GLARGINE, 100 UNIT/ML CARTRIDGE SQ SCH (22:57)
--- NOTE | 2018-11-05 23:10 | NUR ---
OVERLOCK ELASTIC ATTACHER NOTE AMBULANZ TEAM ARRIVED AT 2245. PATIENT HAD BOWEL MOVEMENT AT 2230, PATIENT BATHED AND CLEANED. AT [facility] ARRIVAL REPORT WAS GIVEN, AND 2200 MED WERE GIVEN ORDERED. ALL PATIENT CARE RENDERED ORDERED. PATIENT STABLE, PICC LINE FLUSHED, GTUBE FLUSHED. V/S WNL. TRANSFER OF CARE GIVEN OVER TO [facility]UL[facility] TEAM. PATIENT WHEELED OUT OF ROOM IN [facility] AT 2307.
== END 2018-11-05 23:10 | disposition short-term general hospital (02) | DRG 981 ==
LOC: ER 09:42 → ICU 12:58 → TELE-TD 11-03 16:19 → TELE1 11-05 09:50
PROVIDERS: ADMIT Student in an Organized Health Care Education/Training Program; ATTEND Nurse Practitioner Acute Care
PROC: 5A1955Z Respiratory Ventilation, Greater than 96 Consecutive Hours (ICD-10-PCS; 2018-10-29)
PROC: 02HV33Z Insertion of Infusion Device into Superior Vena Cava, Percutaneous Approach (ICD-10-PCS; 2018-10-29)
PROC: B548ZZA Ultrasonography of Superior Vena Cava, Guidance (ICD-10-PCS; 2018-10-29)
PROC: 5A1D70Z Performance of Urinary Filtration, Intermittent, Less than 6 Hours Per Day (ICD-10-PCS; 2018-10-30)
PROC: 0KBP0ZZ Excision of Left Hip Muscle, Open Approach (ICD-10-PCS; principal; 2018-11-01)
PROC: 0KBN0ZZ Excision of Right Hip Muscle, Open Approach (ICD-10-PCS; 2018-11-01)
PROC: 5A1D70Z Performance of Urinary Filtration, Intermittent, Less than 6 Hours Per Day (ICD-10-PCS; 2018-11-01)
PROC: 0KBP0ZZ Excision of Left Hip Muscle, Open Approach (ICD-10-PCS; 2018-11-03)
PROC: 0KBN0ZZ Excision of Right Hip Muscle, Open Approach (ICD-10-PCS; 2018-11-03)
PROC: 5A1D70Z Performance of Urinary Filtration, Intermittent, Less than 6 Hours Per Day (ICD-10-PCS; 2018-11-04)
PROC: 5A1D70Z Performance of Urinary Filtration, Intermittent, Less than 6 Hours Per Day (ICD-10-PCS; 2018-11-05)
DX: T80.211A Bloodstream infection due to central venous catheter, initial encounter (principal); A41.9 Sepsis, unspecified organism; L89.154 Pressure ulcer of sacral region, stage 4; R65.21 Severe sepsis with septic shock; R53.2 Functional quadriplegia; N18.6 End stage renal disease; J15.6 Pneumonia due to other Gram-negative bacteria; E11.10 Type 2 diabetes mellitus with ketoacidosis without coma; E43 Unspecified severe protein-calorie malnutrition; I21.A1 Myocardial infarction type 2; Z99.11 Dependence on respirator [ventilator] status; G93.49 Other encephalopathy; E87.1 Hypo-osmolality and hyponatremia; E87.2 Acidosis; J96.11 Chronic respiratory failure with hypoxia; E87.3 Alkalosis; I12.0 Hypertensive chronic kidney disease with stage 5 chronic kidney disease or end stage renal disease; K92.2 Gastrointestinal hemorrhage, unspecified; Y84.8 Other medical procedures as the cause of abnormal reaction of the patient, or of later complication, without mention of misadventure at the time of the procedure; Y92.129 Unspecified place in nursing home as the place of occurrence of the external cause; Z99.2 Dependence on renal dialysis; D63.8 Anemia in other chronic diseases classified elsewhere; L30.4 Erythema intertrigo; D53.9 Nutritional anemia, unspecified; E88.09 Other disorders of plasma-protein metabolism, not elsewhere classified; Z68.26 Body mass index [BMI] 26.0-26.9, adult; I25.10 Atherosclerotic heart disease of native coronary artery without angina pectoris; E11.65 Type 2 diabetes mellitus with hyperglycemia; E11.22 Type 2 diabetes mellitus with diabetic chronic kidney disease; G40.909 Epilepsy, unspecified, not intractable, without status epilepticus; K21.9 Gastro-esophageal reflux disease without esophagitis; R62.7 Adult failure to thrive; Z90.710 Acquired absence of both cervix and uterus; Z79.4 Long term (current) use of insulin; Z87.01 Personal history of pneumonia (recurrent); Y71.2 Prosthetic and other implants, materials and accessory cardiovascular devices associated with adverse incidents; H70.93 Unspecified mastoiditis, bilateral; M24.561 Contracture, right knee; M24.562 Contracture, left knee; I95.9 Hypotension, unspecified; J32.9 Chronic sinusitis, unspecified; L89.621 Pressure ulcer of left heel, stage 1; L89.611 Pressure ulcer of right heel, stage 1; B95.62 Methicillin resistant Staphylococcus aureus infection as the cause of diseases classified elsewhere; Z74.01 Bed confinement status
CPT/HCPCS: 31720; 36415; 36569; 36600; 70450-TC; 71045-TC; 74018; 80048-TC; 80053-TC; 80061-TC; 80076-TC; 80150; 80202-TC; 82533; 82803-TC; 82947-TC; 82962-TC; 83605-TC; 83735-TC; 83880; 84100-TC; 84443-TC; 84484-TC; 85025-TC; 85730-TC; 86706; 87040-TC; 87081-TC; 87340; 90935-TC; 93307-TC; 94002-TC; 94003-TC; 94760-TC; 94762-TC; 94799-TC; A4216; A4217; A6248; A6253; A6403; C1751; G0378; J0278; J0885; J1265; J1644; J1815; J1953; J1956; J2543; J3370; J3490; J7030; J7040; J7050; J7060; P9047; Q9963

== ENCOUNTER 2018-12-29 21:29 | Inpatient (IN) | payer MEDICARE, MEDICAID ==
[~2018-12-29] VITALS: Ht 152.4 cm; Wt 88.9 kg
[~2018-12-29 21:29] MED LIST changes: +ACET-2030 GT; -AMLO5TAB9 GT; +ASCO500C18 GT; +BRIM5DRO3 OP; +CHLO473M3 MM; +DOCU-141 GT; -FERR300L GT; -HYDR-4076 PO; -INSU100I19 SQ; +INSU100I26 SQ; +INSU100V30 IJ; -LOSA50TA39 GT; +MIDO10TA GT; +OMEG1CAP PO; +ONDA4VIA52 GT; +PROT946L GT; -SCOP1PAT TD; +TYL2T GT
--- NOTE | 2018-12-29 21:35 | NUR ---
BIBA FOR WEAKNESS S/P HD. PT W/ RESP FAILURE AND VENT DEPENDENT. RT AND MD AT THE BED [facility]. PT WAS PLACED ON THE VENT, AND MONITOR, VS OBTAINED.
[2018-12-29] MEDS ORDERED: CEFEPIME 1 GM VIAL ONE (21:43)
[2018-12-29 21:46] LABS: BASOPHILS # (AUTO) 0.1 /CMM (0.0-0.2); BASOPHILS % (AUTO) 0.6 % (0.0-2.0); EOSINOPHILS % (AUTO) 3.1 % (0.0-6.0); HEMATOCRIT 25 % (33-45); HEMOGLOBIN 8.3 g/dL (11.5-14.8); LYMPHOCYTES # (AUTO) 1.7 /CMM (0.8-4.8); LYMPHOCYTES % (AUTO) 17.6 % (20.0-44.0); MEAN CORPUSCULAR HGB CONC 34 g/dl (31.0-36.0); MEAN CORPUSCULAR VOLUME 90 fL (82-100); MONOCYTES # (AUTO) 0.7 /CMM (0.1-1.30); MONOCYTES % (AUTO) 7.2 % (2.0-12.0); NEUTROPHILS # (AUTO) 6.9 /CMM (1.8-8.9); NEUTROPHILS % (AUTO) 71.5 % (43.0-81.0); PLATELET COUNT (AUTO) 360 /CMM (150-450); RED BLOOD CELL COUNT(AUTO) 2.77 MIL/uL (4.0-5.2); WHITE BLOOD COUNT (AUTO) 9.6 K/uL (4.3-11.0)
[2018-12-29 21:53] LABS: CALCIUM, SERUM 8.8 mg/dL (8.5-10.1); CARBON DIOXIDE 32 mmol/L (21-32); CHLORIDE 97 mmol/L (98-107); CREATININE 2.4 mg/dL (0.6-1.3); GLUCOSE 141 mg/dL (74-106); POTASSIUM 3.1 mmol/L (3.5-5.1); SODIUM SERUM 138 mmol/L (136-145); UREA NITROGEN, BLOOD 32 mg/dL (7-18)
[2018-12-29 21:59] LABS: ALANINE AMINOTRANSFERASE 17 U/L (12-78); ALBUMIN 2.3 g/dL (3.4-5.0); ALKALINE PHOSPHATASE 450 U/L (46-116); ASPARTATE AMINOTRANSFERASE 18 U/L (15-37); BILIRUBIN,DIRECT 0.5 mg/dL (0.0-0.2); TOTAL PROTEIN, SERUM 8.9 g/dL (6.4-8.2)
[2018-12-29] MEDS ORDERED: IV NS 0.9% 1,000 ML BAG IV ONE (22:00)
[2018-12-29] MEDS ORDERED: CEFEPIME 1 GM in IV D5W 50 ML IV ONE (22:00)
[2018-12-29] MEDS ORDERED: VANCOMYCIN 1 GM in IV D5W 250 ML IV ONE (22:00)
[2018-12-29] MEDS ORDERED: VANCOMYCIN 1 GM VIAL ONE (22:01)
--- NOTE | 2018-12-29 22:35 | NUR ---
bp: 116/61, per dr ramírez to hold on to the fluid .
--- NOTE | 2018-12-29 22:40 | NUR ---
RT NOTES Nicole calero notified of abg results. pointed out that sampled obtained contained venous blood evident by low 02 recording. actual pt sat 100% on pulseox on 40% fi02. no sob, distress noted. will cont to monitor pt and obtain other sample if desat occurs.
[2018-12-29 22:42] LABS: ABG BASE EXCESS 3.6 mmol/L; ABG OXYGEN SATURATION 35.7 % (92.0-98.5); ABG PH 7.476 (7.350-7.450); ABG PO2 21.4 mmHg (75.0-100.0); AaDO2 220.1 mmHg; COHb 0.7 % (0.5-1.5); MetHb 0.7 % (0.0-1.5); O2Hb 35.2 % (94.0-97.0); PEEP,BG 5 cm H2O; SITE, ABG Right Radial; VT, ABG 400 mL
--- NOTE | 2018-12-29 22:57 | NUR ---
Patient is resting comfortably in bed with eyes closed. Easily aroused. VSS. on ongoing infusion of vanco. vent tolerated well. HD site w/ c/d/i w/ no bleeding. will cont to monitor
--- NOTE | 2018-12-29 23:40 | NUR ---
CALLED VIP NEPHRONICOLED
--- NOTE | 2018-12-29 23:41 | NUR ---
INFORMED CHRISTIAN BRAVO FROM [facility] PT WILL BE ADMITTED
[2018-12-30] VITALS (7 sets, daily range): BP systolic 90–129; BP diastolic 40–63
[2018-12-30] MEDS ORDERED: POTASSIUM CL. PREMIX PERIPHER. 50 ML IV SCH
[2018-12-30] MEDS ORDERED: POTASSIUM CL. PREMIX PERIPHER. 50 ML ONE (00:36)
--- NOTE | 2018-12-30 00:47 | NUR ---
report given to Dian on third floor
--- NOTE | 2018-12-30 01:19 | NUR ---
pt was transferred to [facility] under acls protocol in stable condition,.
--- NOTE | 2018-12-30 01:30 | NUR ---
TELE/LEATHER SHAVER NOTES PATIENT IS A 58 Y.O OBESE FEMALE, NON VERBAL, BED BOUND,APHASIC, OBTUNDED, PARAPLEGIC, ON MECHANICAL VENT WITH PRESCRIBED SETTING TV 400, PEEP 5, EXTENSIVE ASSISTANCE REQUIRED WITH FEEDING TUBE, GTUBE SITE OBSERVED PATENCY CHECKED. INCONTINENT, WITH SACRAL WOUND FOR DRESSING TREATMENT FOR PRESSURE ULCER, DR RIVERA IS THE ADMITTING MD FOR TELE AT [facility], PATIENT CHEST XRAY RESULT OF RIGHT INFILTRATES, POTASSIUM REPLACED DUE TO 3.1, VANCOMYCIN ADMINISTERED AT ER AND CEFEPIME. , ZOSYN TO ADMINISTER PHARMACY TO DOSE. NOTED SEVERAL SCABS AROUND LOWER LEGS AND THIGH. PATIENT REQUIRE FREQUENT SUCTIONING. FOR WOUND CONSULT AN [facility] BED MATTRESS. WILL CONTINUE WITH CARE.
--- NOTE | 2018-12-30 01:36 | NUR ---
TELE/RN NOTES PER MD RIVERA WILL REVIEW HOME MEDICATIONS REPORTED IN AM TO START GTUBE FEEDING INSTRUCTIONS. ORDERS CARRIED OUT.
[2018-12-30] MEDS ORDERED: ZOSYN IVPB 3.375 G in IV D5W 50ml IV ONE (02:00)
[2018-12-30] MEDS ORDERED: PIPERACILLIN /TAZOBACTAM 3.375 G VIAL IV ONE (02:53)
--- NOTE | 2018-12-30 04:50 | NUR ---
TELE/RN NOTES PATIENT TELE MONITOR ON AFIB RYTHM REPORTED, OBSERVE PILSE AT 108, PATIENT REPOSITIONED FOR COMFORT, AND NEEDED SUCTION PROVIDED, WILL MONITOR./
--- NOTE | 2018-12-30 05:10 | NUR ---
Pt rec'd trached via portex sz 7 on [facility] vent settings as charted. no resp distress or sob noted. Trach is patent and secured. Sx'd for thick moderate amount of pale yellow secretions. Alarms are set and audible. vent plugged into red outlet. ambu bag bedside. will continue to monitor. Addendum: 12/30/18 at 0512 by VITOR TILLMAN RT Amended: Links added.
--- NOTE | 2018-12-30 06:30 | NUR ---
TELE/RN NOTES PATIENT TELE MONITORING FROM SINUS RYTHM 86 TO AFIB OF 103 TO 105 THAT STARTED AT 0315. CHARGE NURSE AWARE AND TO RE CHECK EKG FOR CONFIRMATION WILL CALL OFFICE OF NICOLE FOR UPDATES.
--- NOTE | 2018-12-30 06:50 | NUR ---
TELE/RN NOTES MD RIVERA OFFICE MADE AWARE REGARDING EKG, BLOOD SUGAR CHECK AT 206.
--- NOTE | 2018-12-30 06:53 | NUR ---
319-1 TELE/RN NOTES PATIENT ON TACHYCARDIA, EXTENSIVE ASSISTANCE REQUIRE. MECHANICAL TUBE PLACED, PATENT. WILL MONITOR.
[2018-12-30] MEDS ORDERED: FEE PK DOSING 1 MIN EA MC ONE (07:59)
[2018-12-30] MEDS ORDERED: ONDA4TAB5 GT (08:53)
[2018-12-30] MEDS ORDERED: LATA2.5D7 OP (08:56)
[2018-12-30] MEDS ORDERED: NEPRO 1,000 ML BOTTLE GT PRN (09:00)
[2018-12-30] MEDS ORDERED: ZINC220C8 GT (09:00)
[2018-12-30] MEDS ORDERED: EPOETIN ALFA (10,000 UNIT) 10,000 UNIT/ML VIAL IV ONE (10:30)
[2018-12-30 10:44] LABS: CALCIUM, SERUM 8.3 mg/dL (8.5-10.1); CREATININE 2.9 mg/dL (0.6-1.3); POTASSIUM 3.1 mmol/L (3.5-5.1)
[2018-12-30 10:49] LABS: ALBUMIN 1.9 g/dL (3.4-5.0); BILIRUBIN,TOTAL 0.7 mg/dL (0.2-1.0); TOTAL PROTEIN, SERUM 7.3 g/dL (6.4-8.2)
[2018-12-30 10:57] LABS: THYROID STIMULATING HORMONE 2.159 uIU/mL (0.358-3.74)
[2018-12-30] MEDS ORDERED: ALBUMIN 25% 25 GM in PREMIX 1 EA IV ONE (11:30)
[2018-12-30] MEDS: IPRATROPIUM NEB FS 0.5 MG/2.5 ML AMPUL.NEB NEB SCH ×4 (11:30→23:40)
[2018-12-30] MEDS: ALBUTEROL HALF STRENGTH 1.25 MG/3 ML VIAL.NEB NEB SCH ×4 (11:30→23:40)
--- NOTE | 2018-12-30 11:51 | NUR ---
HOUSEKEEPING ASSOCIATE NOTES PATIENT NOT GIVEN ALBUMIN PER IVELISSE FROM DIALYSIS, BP 97/47, STATED THAT BP SYSTOLIC WAS OVER 80, PATIENT IN STABLE CONDITION.
[2018-12-30] MEDS ORDERED: INSULIN REGULAR, HUMAN 100 UNIT/ML 3 ML VIAL IJ PRN (12:00)
[2018-12-30] MEDS ORDERED: ONDANSETRON 4 MG TAB.RAPDIS GT PRN (12:00)
[2018-12-30] MEDS ORDERED: ACETAMINOPHEN 325 MG TABLET PO PRN (12:00)
[2018-12-30] MEDS ORDERED: MISCELLANEOUS MED 1 EA EA GT PRN (12:00)
[2018-12-30] MEDS: PIPERACILLIN /TAZOBACTAM 2.25 G in IV D5W 50 ML IV SCH ×2 (12:51→21:10)
[2018-12-30] MEDS ORDERED: DEXTROSE 50%-WATER 50 ML DISP.SYRIN IV PRN (13:00)
[2018-12-30] MEDS: BRIMONIDINE TARTRATE OPHT SOLN 5 ML BOTTLE EACHEYE SCH ×2 (13:42→17:11)
[2018-12-30] MEDS: MIDODRINE HCL (5MG) 5 MG TABLET GT SCH ×2 (13:44→17:13)
[2018-12-30] MEDS: BLOOD SUGAR DIAGNOSTIC 1 EACH STRIP IN SCH ×3 (13:45→21:11)
[2018-12-30] MEDS: INSULIN REGULAR, HUMAN 100 UNIT/ML 3 ML VIAL SQ PRN ×3 (13:52→21:35)
[2018-12-30] MEDS: DOCUSATE SODIUM LIQ 100 MG/10 ML UDC GT SCH (17:12)
--- NOTE | 2018-12-30 18:23 | NUR ---
JOB COACHING NOTES CALLED DR. RIVERA'S OFFICE, SPOKE TO SENIOR ACCOUNTING ASSOCIATE DR. MORALES. AWARE PATIENT'S POTASSIUM AT 3.1, NO ORDERS GIVEN. PATIENT WITH SR, HR 66
--- NOTE | 2018-12-30 18:27 | NUR ---
PULVERIZER TENDER NOTES PATIENT RESTING IN BED, NO RESPIRATORY DISTRESS NOTED, NO S/S OF PAIN AT THIS TIME, DIRECTOR OF MANAGED SERVICES IN PLACE, SR HR AT 66. PATIENT'S IV ACCESS SITE INTACT AND PATENT. PATIENT'S NEEDS ATTENDED. BED ON LOWEST LOCKED POSITION, SIDE RAILS UP X3. WILL ENDORSE TO ONCOMING NURSE.
[2018-12-30] MEDS: HYDROGEL DRESSING 90 GM TUBE TP SCH (19:19)
--- NOTE | 2018-12-30 20:00 | NUR ---
RT NOTE PATIENT RECEIVED TRACHED ON MECHANICAL VENTILATION. AMBU BAG/BACK UP TRACH @ BEDSIDE. TX GIVEN, NO ADVERSE REACTIONS NOTED. SX DONE, TRACH SECURED AND PATENT. ALARMS ON AND AUDIBLE. NO SOB NOTED. WILL CONTINUE TO MONITOR. CONT. POX. @ BEDSIDE. Addendum: 12/30/18 at 2220 by KEVIN DANIEL RT Amended: Links added.
--- NOTE | 2018-12-30 20:00 | NUR ---
TELE/RN OPENING NOTED RECEIVED PATIENT IN BED, HOB ELEVATED, REQUIRE SUCTIONING NEEDED FOR MODERATE SECRETIONS, NON VERBAL OPEN EYES, TONGUE PROTRUSIONS, ON MECHANICAL VENT WITH PRESCRIBED SETTING, GTUBE FEEDING RUNNING, CHECK PLACEMENT AND WITH ZERO RESIDUALS. REPOSITION FOR COMFORT AND KEPT SKIN INTACT AND DRY., MONITOR FOR ANY CHANGES, BLOOD SUGAR TO BE CHECKED, URINE OUT PUT AND BOWEL MOVEMENT. ON ROUTINE BREATHING TREATMENT FOR COMFORT. RECEIVED ENDORSEMENT FROM AM RN FOR PLAN FOR WOUND DEBRIDEMENT NEED CONSENT, POTASSIUM LEVEL LOW PER AM RN COMMUNICATED RESULT TO RECHECK IN AM ALSO H S/P HEMODIALYSIS TODAY WILL MONITOR.
--- NOTE | 2018-12-30 20:30 | NUR ---
TELE/RN NOTES PATIENT ON TELE MONITOR AT SR 80'S AND FAMILY MEMBER DAUGHTER WAS CONTACTED REGARDING CONSENT FOR PROCEDURE FOR WOUND DEBRIDEMENT FIOR FERREIRA, WITNESSED BY ANOTHER RN ADI, DAUGHTER AGREED WITH VERBAL CONSENT OBTAINED.
--- NOTE | 2018-12-30 21:03 | NUR ---
Patient is trach/vent dependent, resident of [facility] [phone]. She is bedfast and totally dependent with adl's. Receives routine outpt hemodialysis every MWF at [facility] [phone] 6:45am. Currently on bedhold with plan to dc back to [facility]. Addendum: 12/30/18 at 2104 by BARNEY BALBUENA RN Amended: Links added.
[2018-12-30] MEDS: CHLORHEXIDINE GLUCONATE 15 ML UDC MM SCH (21:10)
[2018-12-30] MEDS: FAMOTIDINE (20 MG) 20 MG TABLET GT SCH (21:10)
[2018-12-30] MEDS: CHOLESTYRAMINE/ASPARTAME 4 G/PKT PACKET GT SCH (21:10)
[2018-12-30] MEDS: LEVETIRACETAM SOL (5 ML) 100 MG/ML UDC GT SCH (21:10)
[2018-12-30] MEDS: LATANOPROST EYE DROP 0.005% 2.5 ML BOTTLE EACHEYE SCH (21:11)
[2018-12-30] MEDS: INSULIN GLARGINE, 100 UNIT/ML CARTRIDGE SQ SCH (21:34)
[2018-12-31] VITALS: BP_SYST 114; BP_SYST 116; BP_DIAS 47
[2018-12-31] MEDS: NEPRO 1,000 ML BOTTLE GT PRN (02:27)
[2018-12-31] MEDS: ALBUTEROL HALF STRENGTH 1.25 MG/3 ML VIAL.NEB NEB SCH ×6 (03:50→23:10)
[2018-12-31] MEDS: IPRATROPIUM NEB FS 0.5 MG/2.5 ML AMPUL.NEB NEB SCH ×6 (03:50→23:10)
[2018-12-31 04:00] VITALS: BP 109/51
[2018-12-31] MEDS: PIPERACILLIN /TAZOBACTAM 2.25 G in IV D5W 50 ML IV SCH ×3 (04:28→20:19)
[2018-12-31] MEDS: BLOOD SUGAR DIAGNOSTIC 1 EACH STRIP IN SCH ×4 (05:26→21:23)
[2018-12-31] MEDS: INSULIN REGULAR, HUMAN 100 UNIT/ML 3 ML VIAL SQ PRN ×4 (05:40→21:25)
[2018-12-31 06:34] LABS: BASOPHILS % (AUTO) 0.6 % (0.0-2.0); EOSINOPHILS % (AUTO) 4.2 % (0.0-6.0); HEMATOCRIT 25 % (33-45); HEMOGLOBIN 8.1 g/dL (11.5-14.8); LYMPHOCYTES # (AUTO) 1.3 /CMM (0.8-4.8); LYMPHOCYTES % (AUTO) 19.5 % (20.0-44.0); MEAN CORPUSCULAR HGB CONC 33 g/dl (31.0-36.0); MEAN CORPUSCULAR VOLUME 90 fL (82-100); MONOCYTES # (AUTO) 0.5 /CMM (0.1-1.30); NEUTROPHILS # (AUTO) 4.6 /CMM (1.8-8.9); NEUTROPHILS % (AUTO) 68.7 % (43.0-81.0); PLATELET COUNT (AUTO) 306 /CMM (150-450); RED BLOOD CELL COUNT(AUTO) 2.76 MIL/uL (4.0-5.2); WHITE BLOOD COUNT (AUTO) 6.7 K/uL (4.3-11.0)
--- NOTE | 2018-12-31 06:42 | NUR ---
319-1 TELE/RN NOTES PATIENT HEAD OF BED ELEVATED, EXTENSIVE ASSISTANCE WITH ALL ADLS AND CARE. ON MECHANICAL VENT WITH REQUIRED SETTING, GTUBE FEEDING ADMINISTERED, MONITORED FOR ANY CHANGES.
[2018-12-31 06:51] LABS: ALBUMIN 2.3 g/dL (3.4-5.0); BILIRUBIN,TOTAL 0.7 mg/dL (0.2-1.0); CALCIUM, SERUM 8.7 mg/dL (8.5-10.1); CREATININE 2.9 mg/dL (0.6-1.3); PHOSPHORUS 2.1 mg/dL (2.5-4.9); POTASSIUM 3.3 mmol/L (3.5-5.1); TOTAL PROTEIN, SERUM 8.3 g/dL (6.4-8.2)
--- NOTE | 2018-12-31 07:31 | NUR ---
TELE/RN OPENING NOTE PATIENT IN BED IN STABLE CONDITION. NON VERBAL, OBTUNDED, OPEN EYES. NO SIGNS OF ACUTE DISTRESS. NO COMPLAIN OF PAIN OR DISCOMFORT. TRACH AND VENT DEPENDENT. TOLERATING WELL. ON GTF TOLERATING WELL. HOB ELEVATED FOR ASPIRATION PRECAUTION. ON TELE MONITOR NOTED WITH SR WITH RATE OF 82. ALL NEEDS ATTENDED TO AT THIS TIME. CALL LIGHT WITHIN REACH. WILL CONTINUE TO MONITOR TO ENSURE SAFETY.
--- NOTE | 2018-12-31 07:47 | NUR ---
WOUND CARE CONSULT WOUND CARE RECEIVED CONSULT FOR SACRAL ULCER. WOUND CARE WILL DEFER CONSULT AND TREATMENT PLANS TO PLASTIC SURGICAL TEAM WHO ARE CURRENTLY FOLLOWING THIS PATIENT. PATIENT WITH CABRERA AT 9, ALL PRESSURE ULCER PREVENTION MEASURES ARE NOTED TO BE IN PLACE. WILL SEE PRN.
[2018-12-31] MEDS ORDERED: POTASSIUM PHOSPHATE MM 15 MMOL in IV D5W 250 ML IV SCH (08:00)
[2018-12-31] MEDS ORDERED: Z GUARD REMEDY 2 OZ OINT TP PRN (08:00)
[2018-12-31 08:13] VITALS: BP 121/61
[2018-12-31] MEDS: LEVETIRACETAM SOL (5 ML) 100 MG/ML UDC GT SCH ×2 (09:08→20:20)
[2018-12-31] MEDS: BRIMONIDINE TARTRATE OPHT SOLN 5 ML BOTTLE EACHEYE SCH ×3 (09:08→16:18)
[2018-12-31] MEDS: POTASSIUM PHOSPHATE MM 7.5 MMOL in IV D5W 100 ML IV SCH ×2 (09:08→12:05)
[2018-12-31] MEDS: PROSOURCE / PROSTAT (PYXIS) 30 ML UDC GT SCH ×3 (09:08→16:17)
[2018-12-31] MEDS: DOCUSATE SODIUM LIQ 100 MG/10 ML UDC GT SCH ×2 (09:08→16:17)
[2018-12-31] MEDS: MIDODRINE HCL (5MG) 5 MG TABLET GT SCH ×3 (09:09→16:17)
[2018-12-31] MEDS: ASCORBIC ACID 500 MG TABLET GT SCH (09:09)
[2018-12-31] MEDS: CHOLESTYRAMINE/ASPARTAME 4 G/PKT PACKET GT SCH ×2 (09:09→21:18)
[2018-12-31] MEDS: ZINC SULFATE 220 MG CAPSULE GT SCH (09:09)
[2018-12-31] MEDS: CHLORHEXIDINE GLUCONATE 15 ML UDC MM SCH ×2 (09:10→20:19)
[2018-12-31] MEDS: VIT B CMPLX 3/FA/VIT C/BIOTIN 1 TAB TABLET GT SCH (09:10)
[2018-12-31] MEDS: Z GUARD REMEDY 2 OZ OINT TP SCH (09:10)
[2018-12-31] MEDS: HYDROGEL DRESSING 90 GM TUBE TP SCH (09:11)
[2018-12-31 12:00] VITALS: BP 150/60
[2018-12-31] MEDS ORDERED: POTASSIUM CHLORIDE 20 MEQ TAB.PRT.SR PO ONE (13:30)
[2018-12-31 16:00] VITALS: BP 125/52
[2018-12-31] MEDS: LACTOBACILLUS RHAMNOSUS GG 1 EACH CAP.SPRINK PO SCH (16:17)
--- NOTE | 2018-12-31 18:06 | NUR ---
TELE/RN CLOSING NOTE PATIENT IN BED IN STABLE CONDITION. NON VERBAL, OPEN EYES. NO SIGNS OF ACUTE DISTRESS. NO COMPLAIN OF PAIN OR DISCOMFORT. TRACH AND VENT DEPENDENT TOLERATING WELL. ON TELE MONITOR NOTED WITH SR WITH RATE OF 82. ALL NEEDS ATTENDED TO AT THIS TIME. CALL LIGHT WITHIN REACH. WILL ENDORSE TO NEXT SHIFT FOR CONTINUITY OF CARE.
--- NOTE | 2018-12-31 19:50 | NUR ---
RN INITIAL NOTES: RECEIVED REPORT FROM ZAC BRAVO. PT OBTUNDED, NON VERBAL, MECH VENT TRACHE DEPENDEDNT, WITH THE FF SETTING AC 14, TV 400 FIO2 40% PEEP 5 PORTEX #7, AMBU BAG AVAILABLE AT BED SIDE, PT CONNECTED ON CONTINUOUS PULSE OXIMETRY SPO2 99%, TELE MONITORING SINUS RHYTHM WITH ELEVATED T WAVE HR 89. NO FACIAL GRIMACE NOTED, APPEARS COMFORTABLE. PT RECEIVED WITH GTUBE IN PLACED, RECEIVING FEEDING/NEPRO AT 50ML/HR. S/P LEFT BUTTOCK WOUND DEBRIDEMENT WITH DR MAURO. S/P HD YESTERDAY WITH 500ML OUTPUT. PT HAS TORI HD ACCESS. IV ACCESS PATENT AND FLUSHING WELL, ON HL. SAFETY PRECAUTIONS FOR FALL INITIATED, CALL LIGHT IN REACH, WILL CONTINUE MONITORING PT.
[2018-12-31 20:00] VITALS: BP 118/76
--- NOTE | 2018-12-31 20:20 | NUR ---
RN NOTES: PT'S ABDOMEN SOFT TO TOUCH, ACTIVE BOWEL SOUND HEARD UPON AUSCULTATION. GTUBE IN PLACED, NO RESIDUAL OBTAIN (0ML), NO RESISTANCE NOTED UPON FLUSHING TUBE WITH 40ML OF WATER. GTUBE SITE CLEAN AND DRY, NO REDNESS OR DRAINAGE NOTED. DUE MEDS ADMINISTERED WILL CONTINUE TO MONITOR AREA.
[2018-12-31] MEDS: LATANOPROST EYE DROP 0.005% 2.5 ML BOTTLE EACHEYE SCH (21:18)
[2018-12-31] MEDS: INSULIN GLARGINE, 100 UNIT/ML CARTRIDGE SQ SCH (21:26)
[2019-01-01] VITALS: BP 127/81
[2019-01-01] MEDS: ALBUTEROL HALF STRENGTH 1.25 MG/3 ML VIAL.NEB NEB SCH ×6 (02:39→23:22)
[2019-01-01] MEDS: IPRATROPIUM NEB FS 0.5 MG/2.5 ML AMPUL.NEB NEB SCH ×6 (02:39→23:22)
[2019-01-01] MEDS: NEPRO 1,000 ML BOTTLE GT PRN (03:45)
[2019-01-01 04:00] VITALS: BP 112/85
--- NOTE | 2019-01-01 04:26 | NUR ---
RN NOTES: BED BATH PROVIDED AT THIS TIME, WOUND CARE DONE ORDERED
[2019-01-01] MEDS: PIPERACILLIN /TAZOBACTAM 2.25 G in IV D5W 50 ML IV SCH ×3 (05:23→21:17)
[2019-01-01] MEDS: BLOOD SUGAR DIAGNOSTIC 1 EACH STRIP IN SCH ×4 (05:53→21:44)
[2019-01-01] MEDS: INSULIN REGULAR, HUMAN 100 UNIT/ML 3 ML VIAL SQ PRN ×4 (05:55→21:43)
[2019-01-01 06:22] LABS: BASOPHILS % (AUTO) 0.5 % (0.0-2.0); EOSINOPHILS % (AUTO) 3.7 % (0.0-6.0); HEMATOCRIT 25 % (33-45); HEMOGLOBIN 8.1 g/dL (11.5-14.8); LYMPHOCYTES # (AUTO) 0.9 /CMM (0.8-4.8); LYMPHOCYTES % (AUTO) 11.3 % (20.0-44.0); MEAN CORPUSCULAR HGB CONC 33 g/dl (31.0-36.0); MEAN CORPUSCULAR VOLUME 89 fL (82-100); MONOCYTES # (AUTO) 0.3 /CMM (0.1-1.30); MONOCYTES % (AUTO) 4.2 % (2.0-12.0); NEUTROPHILS # (AUTO) 6.2 /CMM (1.8-8.9); NEUTROPHILS % (AUTO) 80.3 % (43.0-81.0); PLATELET COUNT (AUTO) 298 /CMM (150-450); RED BLOOD CELL COUNT(AUTO) 2.77 MIL/uL (4.0-5.2); WHITE BLOOD COUNT (AUTO) 7.8 K/uL (4.3-11.0)
--- NOTE | 2019-01-01 06:48 | NUR ---
RN CLOSING NOTES: PT REMAINS OBTUNDED, NON VERBAL. TOLERATED MECH VENT SETTING WELL. GTUBE FEEDING REMAINS INFUSING WITH NEPRO AT 50CC/HR, NO RESIDUAL OBTAINED. GTUBE FLUSHING WELL, NO RESISTANCE NOTED WHEN FLUSHING WITH WATER. REMAINS ON SINUS RHYTHM WITH SLIGHTLY ELEVATED T WAVE HR 89. PT APPEARS CALM AND COMFORTABLE. IV ACCESS REMAINS PATENT AND FLUSHING WELL, ON HL. SAFETY PRECAUTIONS FOR FALL REMAINS ENGAGED, CALL LIGHT IN REACH, WILL ENDORSE TO DAY RN FOR CONTINUITY OF CARE.
[2019-01-01 07:08] LABS: CALCIUM, SERUM 8.7 mg/dL (8.5-10.1); CREATININE 3.7 mg/dL (0.6-1.3); MAGNESIUM 2.3 mg/dL (1.8-2.4); PHOSPHORUS 3.4 mg/dL (2.5-4.9); POTASSIUM 3.9 mmol/L (3.5-5.1)
--- NOTE | 2019-01-01 07:38 | NUR ---
TELE/RN OPENING NOTE PATIENT IN BED IN STABLE CONDITION. NON VERBAL, OPEN EYES. NO SIGNS OF ACUTE DISTRESS. NO COMPLAIN OF PAIN OR DISCOMFORT. TRACH AND VENT DEPENDENT TOLERATING WELL. ON TELE MONITOR NOTED WITH SR WITH RATE OF 90. ON G TUBE FEEDING TOLERATING WELL. HOB ELEVATED FOR ASPIRATION PRECAUTION. ALL NEEDS ATTENDED TO. CALL LIGHT WITHIN REACH. WILL CONTINUE TO MONITOR TO ENSURE SAFETY.
[2019-01-01 08:00] VITALS: BP 137/75
[2019-01-01] MEDS: Z GUARD REMEDY 2 OZ OINT TP SCH (08:42)
[2019-01-01] MEDS: HYDROGEL DRESSING 90 GM TUBE TP SCH (08:43)
[2019-01-01] MEDS: BRIMONIDINE TARTRATE OPHT SOLN 5 ML BOTTLE EACHEYE SCH ×3 (08:43→16:34)
[2019-01-01] MEDS: VIT B CMPLX 3/FA/VIT C/BIOTIN 1 TAB TABLET GT SCH (08:46)
[2019-01-01] MEDS: PROSOURCE / PROSTAT (PYXIS) 30 ML UDC GT SCH ×3 (08:46→16:34)
[2019-01-01] MEDS: ASCORBIC ACID 500 MG TABLET GT SCH (08:46)
[2019-01-01] MEDS: CHOLESTYRAMINE/ASPARTAME 4 G/PKT PACKET GT SCH ×2 (08:46→21:16)
[2019-01-01] MEDS: LACTOBACILLUS RHAMNOSUS GG 1 EACH CAP.SPRINK PO SCH ×2 (08:46→16:34)
[2019-01-01] MEDS: ZINC SULFATE 220 MG CAPSULE GT SCH (08:46)
[2019-01-01] MEDS: LEVETIRACETAM SOL (5 ML) 100 MG/ML UDC GT SCH ×2 (08:47→21:16)
[2019-01-01] MEDS: DOCUSATE SODIUM LIQ 100 MG/10 ML UDC GT SCH ×2 (08:47→16:14)
[2019-01-01] MEDS: MIDODRINE HCL (5MG) 5 MG TABLET GT SCH ×3 (08:47→16:14)
[2019-01-01] MEDS: CHLORHEXIDINE GLUCONATE 15 ML UDC MM SCH ×2 (08:47→21:16)
--- NOTE | 2019-01-01 09:00 | NUR ---
TELE/RN SEEN BY DR JESUS MANUEL Bingham AND NOTIFIED REGARDING PATIENT BLOOD GLUCOSE LEVEL NOTED 355 AND ON ACCUCHECK WELL PATIENT BLOOD GLUCOSE NOTED IN MID 300 TO HIGH 300 SINCE LAST NIGHT BESIDES LANTUS 10U QHS. PER DR JESUS MANUEL Bingham, WILL REVIEW AND PUT IN ORDERS NEEDED.
[2019-01-01] MEDS ORDERED: INSULIN NPH, HUMAN ISOPHANE 100 UNIT/ML CARTRIDGE SQ ONE (11:30)
[2019-01-01 12:00] VITALS: BP 117/50
[2019-01-01 16:00] VITALS: BP 156/61
--- NOTE | 2019-01-01 16:15 | NUR ---
TELE/RN MIDODRINE 10MG HELD SECONDARY TO PATIENT BP NOTED 156/61.
[2019-01-01] MEDS: VANCOMYCIN 500 MG in IV D5W 100 ML IV PRN (16:41)
--- NOTE | 2019-01-01 18:21 | NUR ---
TELE/RN CLOSING NOTE PATIENT IN BED IN STABLE CONDITION. OBTUNDED, NON VERBAL, OPEN EYES. NO SIGNS OF ACUTE DISTRESS. NO COMPLAIN OF PAIN OR DISCOMFORT. TRACH AND VENT DEPENDENT. TOLERATING WELL. ON TELE MONITOR NOTED WITH SR WITH RATE OF 89. ON GTF NEPRO AT 50MLS/HR TOLERATING WELL. HOB ELEVATED FOR ASPIRATION PRECAUTION. ALL NEEDS ATTENDED TO AT THIS TIME. CALL LIGHT WITHIN REACH. WILL ENDORSE TO NEXT SHIFT FOR CONTINUITY OF CARE.
[2019-01-01 20:00] VITALS: BP 172/57
[2019-01-01] MEDS: FAMOTIDINE (20 MG) 20 MG TABLET GT SCH (21:16)
[2019-01-01] MEDS: LATANOPROST EYE DROP 0.005% 2.5 ML BOTTLE EACHEYE SCH (21:44)
[2019-01-01] MEDS ORDERED: INSULIN GLARGINE, 100 UNIT/ML CARTRIDGE SQ SCH (22:00)
[2019-01-02] VITALS (7 sets, daily range): BP systolic 105–161; BP diastolic 47–72
[2019-01-02] MEDS: IPRATROPIUM NEB FS 0.5 MG/2.5 ML AMPUL.NEB NEB SCH ×6 (03:27→23:11)
[2019-01-02] MEDS: ALBUTEROL HALF STRENGTH 1.25 MG/3 ML VIAL.NEB NEB SCH ×6 (03:27→23:11)
[2019-01-02] MEDS: PIPERACILLIN /TAZOBACTAM 2.25 G in IV D5W 50 ML IV SCH ×3 (04:53→20:46)
[2019-01-02] MEDS: NEPRO 1,000 ML BOTTLE GT PRN (05:12)
--- NOTE | 2019-01-02 06:06 | NUR ---
BEEF KILLER NOTES PT AWAKE, NON VERBAL, OPENS EYES, RESPONDS TO TACTILE STIMULI WITH SAME VENT SETTINGS. NOT IN ANY DISTRESS. NO SOB NOTED. NO S/SX OF ANY PAIN OR DISCOMFORT AT THIS TIME. ON TELE SR @ 94 WITH IV-HL PATENT & INTACT. WITH GTF INFUSING WELL. AM CARE DONE. MONITORED ACCORDINGLY. CALL LIGHT WITHIN REACH. BED IN LOWEST POSITION. SR UP X 3 WITH BED ALARM ON FOR SAFETY. WILL ENDORSE TO NEXT SHIFT.
[2019-01-02] MEDS: BLOOD SUGAR DIAGNOSTIC 1 EACH STRIP IN SCH ×4 (06:23→22:23)
[2019-01-02] MEDS: INSULIN REGULAR, HUMAN 100 UNIT/ML 3 ML VIAL SQ PRN ×4 (06:24→22:25)
--- NOTE | 2019-01-02 07:30 | NUR ---
SATELLITE DISH TECHNICIAN OPENING NOTES RECEIVED PT IN BED. OBTUNDED, NON-VERBAL. DURING MORNING ROUNDS PT IS WITH RT. PT TOLERATING CURRENT VENT SETTING, WITH NO ACUTE RESPIRATORY DISTRESS. ON TELEMONITORING SR [address] ELEVATION, PER PUMP HOUSE OPERATOR IT'S BEEN LIKE SUN EVEN LAST NIGHT. PT NOT EXHIBITING ANY PAIN OR DISCOMFORT AT THE MOMENT. PIV TO RIGHT HAND G20, FLUSHED WITH NS, INTACT AND OPERATIONAL. TORI HD ACCESS NOTED WELL. HOB KEPT ELEVATED. PT KEPT COMFORTABLE IN BED. PT'S BED IN LOWEST, LOCKED POSITION WITH SR X3. WILL CONTINUE PLAN OF CARE. Addendum: 01/02/19 at 1757 by JULIET PINTO RN CORRECTION OF DOCUMENTATION. >PT WAS SR 93, WITHOUT ST ELEVATION.
[2019-01-02] MEDS: CHLORHEXIDINE GLUCONATE 15 ML UDC MM SCH ×2 (08:34→20:45)
[2019-01-02] MEDS: ZINC SULFATE 220 MG CAPSULE GT SCH (08:34)
[2019-01-02] MEDS: DOCUSATE SODIUM LIQ 100 MG/10 ML UDC GT SCH ×2 (08:34→16:39)
[2019-01-02] MEDS: LEVETIRACETAM SOL (5 ML) 100 MG/ML UDC GT SCH ×2 (08:34→20:45)
[2019-01-02] MEDS: PROSOURCE / PROSTAT (PYXIS) 30 ML UDC GT SCH ×3 (08:34→16:38)
[2019-01-02] MEDS: VIT B CMPLX 3/FA/VIT C/BIOTIN 1 TAB TABLET GT SCH (08:35)
[2019-01-02] MEDS: ASCORBIC ACID 500 MG TABLET GT SCH (08:35)
[2019-01-02] MEDS: LACTOBACILLUS RHAMNOSUS GG 1 EACH CAP.SPRINK PO SCH ×2 (08:35→16:38)
[2019-01-02] MEDS: CHOLESTYRAMINE/ASPARTAME 4 G/PKT PACKET GT SCH ×2 (08:39→20:45)
[2019-01-02] MEDS: MIDODRINE HCL (5MG) 5 MG TABLET GT SCH ×3 (08:40→16:38)
[2019-01-02] MEDS: Z GUARD REMEDY 2 OZ OINT TP SCH (08:41)
[2019-01-02] MEDS: BRIMONIDINE TARTRATE OPHT SOLN 5 ML BOTTLE EACHEYE SCH ×3 (08:41→16:38)
[2019-01-02] MEDS: HYDROGEL DRESSING 90 GM TUBE TP SCH (08:42)
[2019-01-02] MEDS ORDERED: INSULIN NPH, HUMAN ISOPHANE 100 UNIT/ML CARTRIDGE SQ ONE (10:30)
--- NOTE | 2019-01-02 18:32 | NUR ---
LUTE PACKER OR APPLIER CLOSING NOTES PT REMAINS IN BED. OBTUNDED, NON-VERBAL. PT TOLERATING CURRENT VENT SETTING, WITH NO ACUTE RESPIRATORY DISTRESS. ON TELEMONITORING SR 87. PT NOT EXHIBITING ANY PAIN OR DISCOMFORT AT THE MOMENT. VS STABLE. PIV TO RIGHT HAND G20, FLUSHED WITH NS, INTACT AND OPERATIONAL. TORI HD ACCESS NOTED WELL. HOB KEPT ELEVATED. PT KEPT COMFORTABLE IN BED. PT'S BED IN LOWEST, LOCKED POSITION WITH SR X3. WILL ENDORSE TO INCOMING NIGHT NURSE FOR SHERRY.
--- NOTE | 2019-01-02 19:00 | NUR ---
AGRICULTURAL LENDER OPENING NOTES RECEIVED PATIENT IN BED AWAKE, EYES OPEN,NON VERBAL, OBTUNDED, ON MECHANICAL VENT,TRACH SITE INTACT AND CLEAN , MECHANICAL VENT CONNECTED TO RED EMERGENCY PLUG, AMBU BAG AT BEDSIDE, CONTINUOUS PULSE OX MONITOR IN PLACE, SP02 100%, SUCTION EQUIPMENT IN PLACE, HEAD OF BED ELEVATED FOR ASPIRATION PRECAUTIONS, GTUBE INTACT AND PATENT, 5CC RESIDUALS PRESENT TOLERATING FEEDING WELL, ON TOLL TICKET CLERK SR 79.IV SITE TO RIGHT HAND #24 G INTACT AND PATENT,SL, NO REDNESS , NO INFILTRATION PRESENT, LEFT UPPER ARM HD ACCESS IS CLEAN AND DRY, BRUIT PRESENT, HEELS OFFLOADED, BOTH ELBOWS OFFLOADED, POSITIONED ON SIDE, ORIENTED TO STAFF AND CALL LIGHT AND KEPT WITHIN REACH, SAFETY PRECAUTIONS IN PLACE, LOW BED AND LOCKED, WILL CONTINUE FREQUENT CHECKS AT THIS TIME REMAINS COMFORTABLE ,ALL NEEDS ATTENDED.
--- NOTE | 2019-01-02 20:32 | NUR ---
PT RECEIVED TRACHED ON [facility] VENT ON CHARTED SETTINGS. NO SIGNS OF RESP DISTRESS NOTED. AMBUBAG AT BEDSIDE. VENT CONNECTED TO RED OUTLET. WILL CONT TO MONITOR. Addendum: 01/02/19 at 2123 by BETHANY MUSE RT Amended: Links added.
[2019-01-02] MEDS ORDERED: INSULIN GLARGINE, 100 UNIT/ML CARTRIDGE SQ SCH (22:00)
[2019-01-02] MEDS ORDERED: LATANOPROST EYE DROP 0.005% 2.5 ML BOTTLE ONE (22:58)
[2019-01-02] MEDS: LATANOPROST EYE DROP 0.005% 2.5 ML BOTTLE EACHEYE SCH (23:04)
--- NOTE | 2019-01-02 23:04 | NUR ---
CONTROL OPERATOR FLOW COAT NOTES LATANOPROST EYE DROPS NOT IN CASSETTE MEDICATION RECEIVED FROM NIGHT LOCKER AT THIS TIME, WILL GIVE ORDERED.
[2019-01-03] VITALS: BP_SYST 146; BP_SYST 147; BP_DIAS 70
[2019-01-03] MEDS: NEPRO 1,000 ML BOTTLE GT PRN (03:04)
[2019-01-03] MEDS: ALBUTEROL HALF STRENGTH 1.25 MG/3 ML VIAL.NEB NEB SCH ×6 (03:56→23:25)
[2019-01-03] MEDS: IPRATROPIUM NEB FS 0.5 MG/2.5 ML AMPUL.NEB NEB SCH ×6 (03:56→23:25)
[2019-01-03 04:00] VITALS: BP 120/91
[2019-01-03 04:31] VITALS: BP 120/91
[2019-01-03] MEDS: PIPERACILLIN /TAZOBACTAM 2.25 G in IV D5W 50 ML IV SCH ×3 (04:31→21:14)
[2019-01-03] MEDS: BLOOD SUGAR DIAGNOSTIC 1 EACH STRIP IN SCH ×4 (06:21→21:19)
[2019-01-03] MEDS: INSULIN REGULAR, HUMAN 100 UNIT/ML 3 ML VIAL SQ PRN ×3 (06:23→18:16)
--- NOTE | 2019-01-03 06:48 | NUR ---
KISS MIXER CLOSING NOTES PATIENT IN BED AWAKE, EYES OPEN,NON VERBAL, OBTUNDED, ON MECHANICAL VENT,TRACH SITE INTACT AND CLEAN , MECHANICAL VENT CONNECTED TO RED EMERGENCY PLUG, AMBU BAG AT BEDSIDE, CONTINUOUS PULSE OX MONITOR IN PLACE, SP02 100%, SUCTION EQUIPMENT IN PLACE, SUCTION PRN TOLERATED WELL HEAD OF BED ELEVATED FOR ASPIRATION PRECAUTIONS, GTUBE INTACT AND PATENT, 5CC RESIDUALS PRESENT TOLERATING FEEDING WELL, ON DIVERSITY INTERN SR 91. IV SITE TO RIGHT WRIST #24 G INTACT AND PATENT,SL, NO REDNESS , NO INFILTRATION PRESENT, LEFT UPPER ARM HD ACCESS IS CLEAN AND DRY, BRUIT PRESENT, HEELS OFFLOADED, BOTH ELBOWS OFFLOADED, POSITIONED ON SIDE, CALL LIGHT KEPT WITHIN REACH, SAFETY PRECAUTIONS IN PLACE, LOW BED AND LOCKED, PATIENT WAS FREQUENTLY REPOSITIONED AND WOUND CARE PROVIDED ORDERED , DRESSING REMAIN CLEAN AND DRY, OFFLOADED AFFECTED AREAS, WILL CONTINUE FREQUENT CHECKS AT THIS TIME REMAINS COMFORTABLE ,ALL NEEDS ATTENDED WILL CONTINUE TO MONITOR AND ENDORSE TO NEXT SHIFT, GTUBE IS INTACT AND PATENT. FEEDING FLOWING ORDERED.
--- NOTE | 2019-01-03 07:35 | NUR ---
TELE/RN NOTE THE PATIENT IS RECEIVED IN BED. PATIENT AWAKE. EYES OPEN. PATIENT IS TUNDED. PATIENT TRACH AND VENT AND TOLERATES IT WELL. EXTERNAL TELE BOX READING IS SR 92. GT PRESENT AND NEPHRO INFUSING AT 50 ML/HR. ABDOMEN SOFT AND NON-DISTENDED. RIGHT WRIST G 24 PATENT AND SALINE LOCKED. BED LOW AND LOCKED. SIDE RAILS UP X3. CALL LIGHT WITHIN REACH. WILL CONTINUE TO MONITOR.
[2019-01-03 08:00] VITALS: BP 165/72
[2019-01-03] MEDS: ZINC SULFATE 220 MG CAPSULE GT SCH (08:21)
[2019-01-03] MEDS: LACTOBACILLUS RHAMNOSUS GG 1 EACH CAP.SPRINK PO SCH ×2 (08:21→18:03)
[2019-01-03] MEDS: CHOLESTYRAMINE/ASPARTAME 4 G/PKT PACKET GT SCH ×2 (08:21→21:15)
[2019-01-03] MEDS: CHLORHEXIDINE GLUCONATE 15 ML UDC MM SCH ×2 (08:21→21:13)
[2019-01-03] MEDS: VIT B CMPLX 3/FA/VIT C/BIOTIN 1 TAB TABLET GT SCH (08:21)
[2019-01-03] MEDS: ASCORBIC ACID 500 MG TABLET GT SCH (08:21)
[2019-01-03] MEDS: LEVETIRACETAM SOL (5 ML) 100 MG/ML UDC GT SCH ×2 (08:21→21:13)
[2019-01-03] MEDS: DOCUSATE SODIUM LIQ 100 MG/10 ML UDC GT SCH ×2 (08:21→18:02)
[2019-01-03] MEDS: HYDROGEL DRESSING 90 GM TUBE TP SCH (08:22)
[2019-01-03] MEDS: Z GUARD REMEDY 2 OZ OINT TP SCH (08:22)
[2019-01-03] MEDS: BRIMONIDINE TARTRATE OPHT SOLN 5 ML BOTTLE EACHEYE SCH ×3 (08:24→18:08)
[2019-01-03] MEDS: PROSOURCE / PROSTAT (PYXIS) 30 ML UDC GT SCH ×3 (09:00→18:11)
[2019-01-03] MEDS: MIDODRINE HCL (5MG) 5 MG TABLET GT SCH ×3 (09:00→18:03)
[2019-01-03] MEDS ORDERED: INSULIN NPH, HUMAN ISOPHANE 100 UNIT/ML CARTRIDGE SQ ONE (10:30)
[2019-01-03 10:39] LABS: ALBUMIN 2.3 g/dL (3.4-5.0); BASOPHILS # (AUTO) 0.1 /CMM (0.0-0.2); BASOPHILS % (AUTO) 0.6 % (0.0-2.0); BILIRUBIN,TOTAL 0.6 mg/dL (0.2-1.0); CALCIUM, SERUM 9.4 mg/dL (8.5-10.1); CREATININE 4.1 mg/dL (0.6-1.3); EOSINOPHILS % (AUTO) 4.8 % (0.0-6.0); HEMATOCRIT 26 % (33-45); HEMOGLOBIN 8.5 g/dL (11.5-14.8); LYMPHOCYTES # (AUTO) 1.5 /CMM (0.8-4.8); LYMPHOCYTES % (AUTO) 16.6 % (20.0-44.0); MAGNESIUM 2.5 mg/dL (1.8-2.4); MEAN CORPUSCULAR HGB CONC 33 g/dl (31.0-36.0); MEAN CORPUSCULAR VOLUME 90 fL (82-100); MONOCYTES # (AUTO) 0.4 /CMM (0.1-1.30); MONOCYTES % (AUTO) 4.9 % (2.0-12.0); NEUTROPHILS # (AUTO) 6.6 /CMM (1.8-8.9); NEUTROPHILS % (AUTO) 73.1 % (43.0-81.0); PHOSPHORUS 2.5 mg/dL (2.5-4.9); PLATELET COUNT (AUTO) 305 /CMM (150-450); POTASSIUM 4.2 mmol/L (3.5-5.1); RED BLOOD CELL COUNT(AUTO) 2.88 MIL/uL (4.0-5.2); TOTAL PROTEIN, SERUM 8.9 g/dL (6.4-8.2)
--- NOTE | 2019-01-03 11:15 | NUR ---
TELE/RN NOTE WAITING FOR PHARMACY TO DELIVER HUMULIN N DUE AT 1030. FOLLOW UP CALL WAS MADE. WILL CONTINUE TO FOLLOW UP.
--- NOTE | 2019-01-03 14:12 | NUR ---
RT NOTE RECEIVED PT MECHANICALLY VENTILATED VIA CUFFED TRACHEOSTOMY TUBE. CUFF INFLATED. TRACH TUBE MIDLINE AND SECURE. VENTILATOR SETTINGS PRESCRIBED. ALARMS SET PER PROTOCOL AND AUDIBLE. VENT PLUGGED IN TO RED OUTLET. AMBU BAG AT BED SIDE. NO DISTRESS NOTED. Addendum: 01/03/19 at 1413 by LILO RAMIREZ RT Amended: Links added.
[2019-01-03 16:00] VITALS: BP 151/100
[2019-01-03] MEDS: VANCOMYCIN 500 MG in IV D5W 100 ML IV PRN (16:10)
--- NOTE | 2019-01-03 18:55 | NUR ---
TELE/RN NOTE THE PATIENT IN BED. EYES OPEN. NON, VERBAL, OBTUNDED. THE PATIENT HAS TRACH AND IS ON VENT. THE PATIENT TOLERATES VENT SETTING WELL. SATURATION IS AT 100%. THE PATIENT IN STABLE CONDITION. GT FEEDING RUNNING AT 50ML/HR AND NOTED 5 ML OF RESIDUAL. HOB ELEVATED TO PREVENT ASPIRATION. ABDOMEN SOFT AND NON-DISTENDED. EXTERNAL TELE BOX READING IS SR 86. RIGHT WRIST G 24 PATENT AND SALINE LOCKED. TORI MIDLINE G 18 PATENT AND SALINE LOCKED. PATIENT GOT DIALYSIS TODAY AND 2.5 L IS REMOVED. TOLERATED DIAYLSIS WELL. BED LOW AND LOCKED. SIDE RAILS UP X3. CALL LIGHT WITHIN REACH. WILL ENDORSE TO NIIGHT SHIFT.
[2019-01-03 20:00] VITALS: BP 166/69
[2019-01-03] MEDS: FAMOTIDINE (20 MG) 20 MG TABLET GT SCH (21:14)
[2019-01-03] MEDS: LATANOPROST EYE DROP 0.005% 2.5 ML BOTTLE EACHEYE SCH (21:15)
[2019-01-03] MEDS: INSULIN GLARGINE, 100 UNIT/ML CARTRIDGE SQ SCH ×2 (21:27→22:01)
--- NOTE | 2019-01-03 22:04 | NUR ---
MS/RN ON INITIAL SHIFT ROUND AT 1930, PATIENT WAS AWAKE, NON VERBAL, FLAT AFFECT, APPEAR COMFORTABLE, ON MECH VENT, NO DISTRESS NOTED, GT FEEDING INFUSING, HOB ELEVATED, WILL MONITOR.
[2019-01-04] VITALS: BP 149/53
[2019-01-04] MEDS: ALBUTEROL HALF STRENGTH 1.25 MG/3 ML VIAL.NEB NEB SCH ×7 (03:09→22:52)
[2019-01-04] MEDS: IPRATROPIUM NEB FS 0.5 MG/2.5 ML AMPUL.NEB NEB SCH ×7 (03:09→22:52)
[2019-01-04] MEDS: NEPRO 1,000 ML BOTTLE GT PRN (03:19)
[2019-01-04 04:00] VITALS: BP 127/76
[2019-01-04] MEDS: BLOOD SUGAR DIAGNOSTIC 1 EACH STRIP IN SCH ×4 (06:31→22:03)
[2019-01-04] MEDS: PIPERACILLIN /TAZOBACTAM 2.25 G in IV D5W 50 ML IV SCH ×3 (06:31→20:47)
--- NOTE | 2019-01-04 06:59 | NUR ---
MS/RN PATIENT IS AWAKE, COMFORTABLE, NO DISTRESS NOTED, HOB ELEVATED, GT FEEDING INFUSING, HOB ELEVATED, ALL NEEDS ATTENDED AT THIS TIME, WILL CONTINUE TO MONITOR.
[2019-01-04 08:00] VITALS: BP 106/42
[2019-01-04] MEDS: CHOLESTYRAMINE/ASPARTAME 4 G/PKT PACKET GT SCH ×2 (09:49→21:59)
[2019-01-04] MEDS: MIDODRINE HCL (5MG) 5 MG TABLET GT SCH ×3 (09:49→17:32)
[2019-01-04] MEDS: LACTOBACILLUS RHAMNOSUS GG 1 EACH CAP.SPRINK PO SCH ×2 (09:49→17:31)
[2019-01-04] MEDS: ZINC SULFATE 220 MG CAPSULE GT SCH (09:49)
[2019-01-04] MEDS: LEVETIRACETAM SOL (5 ML) 100 MG/ML UDC GT SCH ×2 (09:49→20:48)
[2019-01-04] MEDS: ASCORBIC ACID 500 MG TABLET GT SCH (09:49)
[2019-01-04] MEDS: DOCUSATE SODIUM LIQ 100 MG/10 ML UDC GT SCH ×2 (09:49→17:31)
[2019-01-04] MEDS: VIT B CMPLX 3/FA/VIT C/BIOTIN 1 TAB TABLET GT SCH (09:49)
[2019-01-04] MEDS: PROSOURCE / PROSTAT (PYXIS) 30 ML UDC GT SCH ×3 (09:50→17:32)
[2019-01-04] MEDS: Z GUARD REMEDY 2 OZ OINT TP SCH (09:51)
[2019-01-04] MEDS: BRIMONIDINE TARTRATE OPHT SOLN 5 ML BOTTLE EACHEYE SCH ×3 (09:51→17:32)
[2019-01-04] MEDS: HYDROGEL DRESSING 90 GM TUBE TP SCH (09:52)
[2019-01-04] MEDS: CHLORHEXIDINE GLUCONATE 15 ML UDC MM SCH ×2 (13:55→20:48)
[2019-01-04 16:00] VITALS: BP 108/50
[2019-01-04] MEDS: INSULIN REGULAR, HUMAN 100 UNIT/ML 3 ML VIAL SQ PRN ×2 (17:56→22:06)
--- NOTE | 2019-01-04 19:15 | NUR ---
RN CLOSING PATIENT OBTUNDED, DOES NOT FOLLOW COMMAND, ATTACHED TO [facility] [place] VENTILATOR AND PULSE OX. ALARMS AUDIBLE. NO ACUTE DISTRESS OR SOB NOTED. SUCTIONED PRN THIS SHIFT. ALL ORDERED MEDS GIVEN, WOUND CARE COMPLETED. AWAITING SNF PLACEMENT, FAMILY AT BEDSIDE AND AWARE OF PLAN. R UA MIDLINE INTACT, PATENT, NO S/S INFILTRATION.
--- NOTE | 2019-01-04 20:00 | NUR ---
RN OPEN NOTES RECEIVED PATIENT RESTING IN BED, AROUSABLE TO TOUCH. OBTUNDED. NO SIGNS OF DISTRESS OR DISCOMFORT. BREATHING EVEN AND UNLABORED. [facility] WITH SETTINGS ORDERED. ATTACHED TO TELE MONITOR WITH SR 79 NOTED. HAS GTUBE INTACT WITH FEEDING RUNNING, PATIENT TOLERATING WELL WITH APPROX 10ML OF RESIDUAL NOTED. HAS IV ACCESS IN R WRIST AND STAN MIDLINE, PATENT AND INTACT, NO SIGNS OF REDNESS OR INFILTRATION. BED IN LOW LOCKED POSITION WITH SIDE RAILS X2. CALL LIGHT WITHIN REACH. WILL CONTINUE TO MONITOR.
[2019-01-04 20:47] VITALS: BP 141/83
[2019-01-04] MEDS: LATANOPROST EYE DROP 0.005% 2.5 ML BOTTLE EACHEYE SCH (22:03)
[2019-01-04] MEDS: INSULIN GLARGINE, 100 UNIT/ML CARTRIDGE SQ SCH (22:05)
[2019-01-05] VITALS: BP 138/80
[2019-01-05] MEDS: NEPRO 1,000 ML BOTTLE GT PRN (00:32)
[2019-01-05] MEDS: ALBUTEROL HALF STRENGTH 1.25 MG/3 ML VIAL.NEB NEB SCH ×5 (02:52→20:02)
[2019-01-05] MEDS: IPRATROPIUM NEB FS 0.5 MG/2.5 ML AMPUL.NEB NEB SCH ×5 (02:52→20:02)
[2019-01-05 04:17] VITALS: BP 129/78
[2019-01-05] MEDS: PIPERACILLIN /TAZOBACTAM 2.25 G in IV D5W 50 ML IV SCH ×3 (05:03→20:30)
[2019-01-05] MEDS: INSULIN REGULAR, HUMAN 100 UNIT/ML 3 ML VIAL SQ PRN ×4 (06:36→21:33)
[2019-01-05] MEDS: BLOOD SUGAR DIAGNOSTIC 1 EACH STRIP IN SCH ×4 (06:37→21:28)
--- NOTE | 2019-01-05 07:28 | NUR ---
RN CLOSING NOTES PATIENT RESTING IN BED, AROUSABLE TO TOUCH. OBTUNDED. NO SIGNS OF DISTRESS OR DISCOMFORT. BREATHING EVEN AND UNLABORED. ON MECH VENT WITH SETTINGS ORDERED. ATTACHED TO TELE MONITOR WITH SR 83 NOTED. HAS GTUBE INTACT WITH FEEDING RUNNING, PATIENT TOLERATING WELL WITH APPROX 10ML OF RESIDUAL NOTED THROUGHOUT SHIFT. HAS IV ACCESS IN R WRIST AND STAN MIDLINE, PATENT AND INTACT, NO SIGNS OF REDNESS OR INFILTRATION. ALL NEEDS MET. NO SIGNIFICANT CHANGES THROUGH THE NIGHT. PATIENT REPOSITIONED Q2H AND PRN. BED IN LOW LOCKED POSITION WITH SIDE RAILS X2. CALL LIGHT WITHIN REACH. ENDORSED TO AM SHIFT FOR SHERRY.
--- NOTE | 2019-01-05 07:30 | NUR ---
METAL LOADER OPENING NOTES RECEIVED PT IN BED, OBTUNDED, NONVERBAL. PT TOLERATING CURRENT VENT SETTING, WITH NO ACUTE RESPIRATORY DISTRESS NOTED. ON TELEMONITORING SR 89. PT NOT EXHIBITING ANY PAIN OR DISCOMFORT AT THIS TIME. PIV TO STAN MIDLINE AND RIGHT WRIST SL, FLUSHED WITH NS, INTACT AND OPERATIONAL. PT KEPT COMFORTABLE. HOB ELEVATED. PT'S BED IN LOWEST, LOCKED POSITION SR X3. CALL LIGHT KEPT WITHIN REACH. WILL CONTINUE PLAN OF CARE.
[2019-01-05 07:57] LABS: CALCIUM, SERUM 9.6 mg/dL (8.5-10.1); CREATININE 4.2 mg/dL (0.6-1.3); POTASSIUM 4.2 mmol/L (3.5-5.1)
[2019-01-05 08:00] VITALS: BP 119/71
[2019-01-05] MEDS: PROSOURCE / PROSTAT (PYXIS) 30 ML UDC GT SCH ×3 (09:05→16:30)
[2019-01-05] MEDS: Z GUARD REMEDY 2 OZ OINT TP SCH (09:06)
[2019-01-05] MEDS: BRIMONIDINE TARTRATE OPHT SOLN 5 ML BOTTLE EACHEYE SCH ×3 (09:06→16:44)
[2019-01-05] MEDS: LEVETIRACETAM SOL (5 ML) 100 MG/ML UDC GT SCH ×2 (09:07→20:32)
[2019-01-05] MEDS: DOCUSATE SODIUM LIQ 100 MG/10 ML UDC GT SCH ×2 (09:07→16:30)
[2019-01-05] MEDS: ASCORBIC ACID 500 MG TABLET GT SCH (09:07)
[2019-01-05] MEDS: ZINC SULFATE 220 MG CAPSULE GT SCH (09:07)
[2019-01-05] MEDS: CHLORHEXIDINE GLUCONATE 15 ML UDC MM SCH ×2 (09:07→20:32)
[2019-01-05] MEDS: MIDODRINE HCL (5MG) 5 MG TABLET GT SCH ×3 (09:08→16:30)
[2019-01-05] MEDS: LACTOBACILLUS RHAMNOSUS GG 1 EACH CAP.SPRINK PO SCH ×2 (09:08→16:30)
[2019-01-05] MEDS: CHOLESTYRAMINE/ASPARTAME 4 G/PKT PACKET GT SCH ×2 (09:08→20:32)
[2019-01-05] MEDS: HYDROGEL DRESSING 90 GM TUBE TP SCH (09:08)
[2019-01-05] MEDS: VIT B CMPLX 3/FA/VIT C/BIOTIN 1 TAB TABLET GT SCH (09:08)
[2019-01-05 16:00] VITALS: BP 125/52
--- NOTE | 2019-01-05 18:30 | NUR ---
SOLID TIRE FINISHER OPENING NOTES PT IN BED, OBTUNDED, NONVERBAL. PT TOLERATING CURRENT VENT SETTING, WITH NO ACUTE RESPIRATORY DISTRESS NOTED. ON TELEMONITORING SR 84. PT NOT EXHIBITING ANY PAIN OR DISCOMFORT AT THIS TIME. PIV TO STAN MIDLINE AND RIGHT WRIST SL, FLUSHED WITH NS, INTACT AND OPERATIONAL. ALL NEEDS AND CARE ATTENDED. PT KEPT COMFORTABLE. HOB ELEVATED. PT'S BED IN LOWEST, LOCKED POSITION SR X3. CALL LIGHT KEPT WITHIN REACH. WILL ENDORSE TO INCOMING NIGHT NURSE FOR SHERRY.
--- NOTE | 2019-01-05 19:30 | NUR ---
RECEIVED PATIENT IN BED OBTUNDED, NON VERBAL. NO ACUTE DISTRESS NOTED. ON VENT WITH ORDERED SETTINGS. TRACH INTACT. IV SITES PATENT, INTACT; FLUSHED. AV FISTULA INTACT. GT INTACT; GTF INFUSING ORDERED. HOB RAISED. NO GTF RESIDUAL ASPIRATED. ON LOW BED WITH BILATERAL UPPER SIDE RAILS UP. CALL IVY WITHIN EASY REACH. WILL CONTINUE TO MONITOR.
[2019-01-05 20:00] VITALS: BP 149/83
[2019-01-05] MEDS: FAMOTIDINE (20 MG) 20 MG TABLET GT SCH (20:32)
[2019-01-05 20:55] VITALS: BP 149/83
[2019-01-05] MEDS: INSULIN GLARGINE, 100 UNIT/ML CARTRIDGE SQ SCH (21:31)
[2019-01-05] MEDS: LATANOPROST EYE DROP 0.005% 2.5 ML BOTTLE EACHEYE SCH (21:33)
[2019-01-06] VITALS: BP 131/74
[2019-01-06] MEDS: IPRATROPIUM NEB FS 0.5 MG/2.5 ML AMPUL.NEB NEB SCH ×5 (00:03→15:30)
[2019-01-06] MEDS: ALBUTEROL HALF STRENGTH 1.25 MG/3 ML VIAL.NEB NEB SCH ×5 (00:03→15:30)
[2019-01-06 04:07] VITALS: BP 130/76
[2019-01-06] MEDS: NEPRO 1,000 ML BOTTLE GT PRN (05:13)
[2019-01-06] MEDS: PIPERACILLIN /TAZOBACTAM 2.25 G in IV D5W 50 ML IV SCH ×2 (05:13→13:21)
--- NOTE | 2019-01-06 06:00 | NUR ---
PATIENT IN BED WITH EYES CLOSED, AROUSABLE. RESPIRATIONS EVEN. NO SIGNS OF PAIN NOTED. DUE MEDS GIVEN WITH NO ASE NOTED. GTF ONGOING. PATIENT TOLERATING GTF. KEPT CLEAN, DRY, AND COMFORTABLE. SAFETY PRECAUTIONS AND COMFORT MEASURES IN PLACE. WILL GIVE REPORT TO DAY SHIFT FOR CONTINUITY OF CARE.
[2019-01-06] MEDS: BLOOD SUGAR DIAGNOSTIC 1 EACH STRIP IN SCH ×2 (06:38→12:57)
[2019-01-06] MEDS: INSULIN REGULAR, HUMAN 100 UNIT/ML 3 ML VIAL SQ PRN ×2 (06:41→12:58)
[2019-01-06 06:59] LABS: CALCIUM, SERUM 9.1 mg/dL (8.5-10.1); CREATININE 3.1 mg/dL (0.6-1.3); POTASSIUM 3.9 mmol/L (3.5-5.1)
--- NOTE | 2019-01-06 07:15 | NUR ---
SCRUFF WORKER OPENING NOTES RECEIVED PATIENT IN BED WITH EYES CLOSE. RESPONSIVE TO VERBAL AND TACTILE STIMULI. HOB ELEVATED. NO EVIDENCE OF PAIN NOR DISCOMFORT. NO EVIDENCE OF RESPIRATORY DISTRESS. ON MECHANICAL VENTILATION WITH SETTINGS FOLLOWED: AC 14, TV 400, PEEP 5, FIO2 40% BERE WELL. SUCTIONED PATIENT AND OBTAINED SMALL THIN PALE YELLOW SECRETIONS. PORTEX #7 INTACT. TORI AV FISTULA IN PLACE WITH GOOD BRUIT/THRILL. STAN MIDLINE INTACT AND PATENT. GT INTACT AND PATENT ON NEPRO @ 50ML/ HR. BED IN LOWEST POSITION. BED SIDERAILS UPX2.
[2019-01-06 08:00] VITALS: BP 126/53
[2019-01-06] MEDS: LACTOBACILLUS RHAMNOSUS GG 1 EACH CAP.SPRINK PO SCH (09:36)
[2019-01-06] MEDS: LEVETIRACETAM SOL (5 ML) 100 MG/ML UDC GT SCH (09:36)
[2019-01-06] MEDS: CHOLESTYRAMINE/ASPARTAME 4 G/PKT PACKET GT SCH (09:36)
[2019-01-06] MEDS: DOCUSATE SODIUM LIQ 100 MG/10 ML UDC GT SCH (09:37)
[2019-01-06] MEDS: CHLORHEXIDINE GLUCONATE 15 ML UDC MM SCH (09:37)
[2019-01-06] MEDS: ZINC SULFATE 220 MG CAPSULE GT SCH (09:37)
[2019-01-06] MEDS: VIT B CMPLX 3/FA/VIT C/BIOTIN 1 TAB TABLET GT SCH (09:37)
[2019-01-06] MEDS: ASCORBIC ACID 500 MG TABLET GT SCH (09:37)
[2019-01-06] MEDS: MIDODRINE HCL (5MG) 5 MG TABLET GT SCH ×2 (09:38→13:20)
[2019-01-06] MEDS: PROSOURCE / PROSTAT (PYXIS) 30 ML UDC GT SCH ×2 (09:38→13:20)
[2019-01-06] MEDS: Z GUARD REMEDY 2 OZ OINT TP SCH (09:39)
[2019-01-06] MEDS: HYDROGEL DRESSING 90 GM TUBE TP SCH (09:41)
[2019-01-06] MEDS: BRIMONIDINE TARTRATE OPHT SOLN 5 ML BOTTLE EACHEYE SCH ×2 (09:42→13:21)
[2019-01-06] MEDS ORDERED: PIPE2.257 IV (10:42)
[2019-01-06] MEDS ORDERED: INSU100I30 SQ (10:42)
[2019-01-06] MEDS ORDERED: ALLA266C2 TP (10:42)
[2019-01-06] MEDS ORDERED: RXVAN XX (10:42)
[2019-01-06] MEDS ORDERED: Hydrogel Dressing TP (10:42)
[2019-01-06] MEDS ORDERED: ALBU1.25 NEB (10:42)
[2019-01-06] MEDS ORDERED: IPRA0.2S9 NEB (10:42)
[2019-01-06] MEDS ORDERED: LACT1CAP72 PO (10:42)
[2019-01-06 11:35] VITALS: BP 126/53
[2019-01-06 11:40] VITALS: BP 127/55
[2019-01-06 13:20] VITALS: BP 125/57
--- NOTE | 2019-01-06 15:15 | NUR ---
BIOLOGY MANAGERASSISTANT SUPERINTENDENT/CLOSING NOTES PATIENT IN BED, AWAKE. RESPONSIVE TO VERBAL AND TACTILE STIMULI. HOB ELEVATED. NO EVIDENCE OF PAIN NOR DISCOMFORT. NO EVIDENCE OF RESPIRATORY DISTRESS. ON MECHANICAL VENTILATION WITH SETTINGS FOLLOWED: AC 14, TV 400, PEEP 5, FIO2 40% BERE WELL. PORTEX #[address] TORI [address] PL[address] WITH GOOD BRUIT/THRILL. GT INTACT AND PATENT ON NEPRO @ 50ML/ HR, NO RESIDUAL NOTED. PATIENT FOR DISCHARGE TO [facility]. GAVE REPORT TO EMT AND RT PERSONNEL ALONG WITH DISCHARGE PACKET AND INSTRUCTIONS. CALLED [facility] , SPOKE TO LAWRENCE KEBEDE AND REPORT WAS GIVEN. IV ACCESS REMOVED WITH CATHETER TIP INTACT WITH GAUZE DRESSING IN PLACE. ALL BELONGINGS ACCOUNTED FOR. PATIENT LEFT VIA GURNEY VIA AMBULANCE IN STABLE CONDITION.IN NO APPARENT DISTRESS.
== END 2019-01-06 15:30 | DRG 166 ==
LOC: ER 21:32 → TELE 12-30 00:34
PROVIDERS: ADMIT Internal Medicine Nephrology; ATTEND Internal Medicine Nephrology
PROC: 5A1955Z Respiratory Ventilation, Greater than 96 Consecutive Hours (ICD-10-PCS; principal; 2018-12-30)
PROC: 5A1D70Z Performance of Urinary Filtration, Intermittent, Less than 6 Hours Per Day (ICD-10-PCS; 2018-12-30)
PROC: 0JB70ZZ Excision of Back Subcutaneous Tissue and Fascia, Open Approach (ICD-10-PCS; 2018-12-31)
PROC: 0JB90ZZ Excision of Buttock Subcutaneous Tissue and Fascia, Open Approach (ICD-10-PCS; 2018-12-31)
PROC: 5A1D70Z Performance of Urinary Filtration, Intermittent, Less than 6 Hours Per Day (ICD-10-PCS; 2019-01-01)
PROC: 5A1D70Z Performance of Urinary Filtration, Intermittent, Less than 6 Hours Per Day (ICD-10-PCS; 2019-01-03)
PROC: 05H933Z Insertion of Infusion Device into Right Brachial Vein, Percutaneous Approach (ICD-10-PCS; 2019-01-03)
PROC: B54MZZA Ultrasonography of Right Upper Extremity Veins, Guidance (ICD-10-PCS; 2019-01-03)
PROC: 5A1D70Z Performance of Urinary Filtration, Intermittent, Less than 6 Hours Per Day (ICD-10-PCS; 2019-01-05)
DX: J96.21 Acute and chronic respiratory failure with hypoxia (principal); L89.324 Pressure ulcer of left buttock, stage 4; L89.314 Pressure ulcer of right buttock, stage 4; J18.9 Pneumonia, unspecified organism; N18.6 End stage renal disease; L89.154 Pressure ulcer of sacral region, stage 4; I50.31 Acute diastolic (congestive) heart failure; R53.2 Functional quadriplegia; I13.2 Hypertensive heart and chronic kidney disease with heart failure and with stage 5 chronic kidney disease, or end stage renal disease; Z99.11 Dependence on respirator [ventilator] status; G93.1 Anoxic brain damage, not elsewhere classified; Z99.2 Dependence on renal dialysis; E11.22 Type 2 diabetes mellitus with diabetic chronic kidney disease; E87.70 Fluid overload, unspecified; D63.1 Anemia in chronic kidney disease; Z93.0 Tracheostomy status; R13.10 Dysphagia, unspecified; E11.65 Type 2 diabetes mellitus with hyperglycemia; G40.909 Epilepsy, unspecified, not intractable, without status epilepticus; Z93.1 Gastrostomy status; E78.5 Hyperlipidemia, unspecified; E87.6 Hypokalemia; F09 Unspecified mental disorder due to known physiological condition; I25.10 Atherosclerotic heart disease of native coronary artery without angina pectoris; I95.3 Hypotension of hemodialysis; L89.621 Pressure ulcer of left heel, stage 1; L89.611 Pressure ulcer of right heel, stage 1; M24.562 Contracture, left knee; M24.561 Contracture, right knee; R62.7 Adult failure to thrive; Z68.34 Body mass index [BMI] 34.0-34.9, adult; K21.9 Gastro-esophageal reflux disease without esophagitis
CPT/HCPCS: 31720; 36415; 36600; 71045-TC; 80048-TC; 80053-TC; 80076-TC; 80202-TC; 82962-TC; 83605-TC; 83735-TC; 84100-TC; 84439-TC; 84443-TC; 84484-TC; 85025-TC; 85730-TC; 86706; 87040-TC; 87081-TC; 87340; 90935-TC; 94002-TC; 94003-TC; 94760-TC; 94762-TC; 94799-TC; A4216; A4623; A6248; A6253; A6403; A7526; G0378; J0692; J0885; J1815; J1953; J2543; J3370; J3480; J3490; J7030; J7060; P9047

== ENCOUNTER 2019-03-23 14:19 | Inpatient (IN) | payer MEDICARE, MEDICAID ==
[~2019-03-23] VITALS: Ht 149.9 cm; Wt 81.6 kg
[~2019-03-23 14:19] MED LIST changes: +ALBU1.25 NEB; +ALLA266C2 TP; +BRIM5DRO3 EACHEYE; -BRIM5DRO3 OP; +Hydrogel Dressing TP; -INSU100I26 SQ; +INSU100I30 SQ; +IPRA0.2S9 NEB; +LACT1CAP72 PO; +LATA2.5D7 OP; +ONDA4TAB5 GT; -ONDA4VIA52 GT; +PIPE2.257 IV; +RXVAN XX; -TRAV5DRO EACHEYE; +ZINC220C8 GT
--- NOTE | 2019-03-23 14:40 | NUR ---
RT Pt received in ER trached on mechanical ventilation. Pt switched to hospital ventilator with noted settings by transport RT. Vent is plugged into red outlet. No SOB or respiratory distress noted at this time. Addendum: 03/23/19 at 1454 by TITO WADDELL RT Amended: Links added.
[2019-03-23] MEDS ORDERED: GLUC1KIT IM (14:45)
[2019-03-23] MEDS ORDERED: INSU100I26 SQ (14:45)
[2019-03-23] MEDS ORDERED: ACET-868 PO (14:45)
[2019-03-23] MEDS ORDERED: ALBU2.5V38 IH (14:45)
[2019-03-23] MEDS ORDERED: LACT1CAP94 GT (14:45)
[2019-03-23] MEDS ORDERED: VIT500LI GT (14:45)
[2019-03-23] MEDS ORDERED: INSU100V3 SQ (14:45)
[2019-03-23] MEDS ORDERED: EPOE1000 SQ (14:45)
--- NOTE | 2019-03-23 15:00 | NUR ---
SARAH FROM DIALYSIS CENTER C/O BLEEDING SHUNT. PT AWAKE EYES OPEN ONLY. RR EVEN & UNLABORED, NAD NOTED @ THIS TIME. DRESSING ON LT UPPER ARM INTACT, NO ACTIVE BLEEDING @ THIS TIME. PT SEEN & EVAL'D BY DR. DALE. PLACED ON HOURLY SALES STAFF, SR. WILL CONT TO MONITOR.
[2019-03-23 15:19] LABS: BASOPHILS # (AUTO) 0.1 /CMM (0.0-0.2); BASOPHILS % (AUTO) 0.8 % (0.0-2.0); EOSINOPHILS % (AUTO) 5.5 % (0.0-6.0); HEMATOCRIT 35 % (33-45); HEMOGLOBIN 11.5 g/dL (11.5-14.8); LYMPHOCYTES # (AUTO) 1.2 /CMM (0.8-4.8); LYMPHOCYTES % (AUTO) 15.7 % (20.0-44.0); MEAN CORPUSCULAR HGB CONC 32 g/dl (31.0-36.0); MEAN CORPUSCULAR VOLUME 93 fL (82-100); MONOCYTES # (AUTO) 0.5 /CMM (0.1-1.30); MONOCYTES % (AUTO) 6.6 % (2.0-12.0); NEUTROPHILS # (AUTO) 5.5 /CMM (1.8-8.9); NEUTROPHILS % (AUTO) 71.4 % (43.0-81.0); PLATELET COUNT (AUTO) 261 /CMM (150-450); RED BLOOD CELL COUNT(AUTO) 3.81 MIL/uL (4.0-5.2); WHITE BLOOD COUNT (AUTO) 7.7 K/uL (4.3-11.0)
[2019-03-23 15:26] LABS: POTASSIUM 3.7 mmol/L (3.5-5.1)
--- NOTE | 2019-03-23 15:58 | NUR ---
CALLED VIP NEPHRONICOLED
--- NOTE | 2019-03-23 16:04 | NUR ---
CALLED NURSING SUP FOR TELE BED
--- NOTE | 2019-03-23 16:11 | NUR ---
DR RIVERA SPEAKING WITH DR DALE
--- NOTE | 2019-03-23 16:26 | NUR ---
CALLED OFFICE OF MD NICOLE SO MD
--- NOTE | 2019-03-23 16:26 | NUR ---
CALLED OFFICE OF DR PEDRAZA, STATES WILL PAGE DR PEDRAZA BUT MAY TAKE 1HR DUE TO MD IN SURGERY
--- NOTE | 2019-03-23 16:30 | NUR ---
CORRECTION: DR. DALE UNABLE TO REPAIR BLEEDIN ON TORI SHUNT.
--- NOTE | 2019-03-23 16:30 | NUR ---
DR. DALE REPAIRED BLEEDING SHUNT ON TORI. PT BERE WELL.
--- NOTE | 2019-03-23 16:54 | NUR ---
Spoke to LAWRENCE Sheffield regarding U/S guided thoracentesis. Told him no radiologist onsite today, will do procedure tomorrow morning. Patient being admitted.
[2019-03-23] MEDS ORDERED: EPOETIN ALFA (10,000 UNIT) 10,000 UNIT/ML VIAL IV ONE (17:00)
[2019-03-23] MEDS ORDERED: LIDOCAINE 1%-EPI 1:100,000 20 ML VIAL ONE (17:03)
[2019-03-23] MEDS ORDERED: LIDOCAINE 1%-EPI 1:100,000 20 ML VIAL TP ONE (17:30)
[2019-03-23] MEDS ORDERED: FENTANYL PF 100MCG/2ML AMPUL ONE (18:54)
[2019-03-23] MEDS ORDERED: LIDOCAINE HCL/MPF 1% 30 ML VIAL IJ ONE (19:17)
--- NOTE | 2019-03-23 19:25 | NUR ---
RT NOTE: RECEIVED TRACH PT ON [facility] VENT ON NOTED SETTINGS PER MD ORDERS. PORTEX 7 TRACH IS PATENT AND SECURED. ART MUSEUM AIDE DONE. SX MODERATE AMOUNT OF THICK YELLOW SECRETIONS. VENT PLUGGED INTO RED OUTLET. ALARMS ON AND AUDIBLE. PADMAU BAG @ BEDSIDE. NO RESP DISTRESS AT THIS TIME. PT TO BE TRANSPORTED TO OR AT THIS TIME. Addendum: 03/24/19 at 0406 by MURALI LE RT Amended: Links added.
--- NOTE | 2019-03-23 19:26 | NUR ---
REPORT GIVEN TO LAWRENCE SEGUNDO @ [facility]. PT EN ROUTE TO OR VIA [facility].
--- NOTE | 2019-03-23 20:21 | NUR ---
POLYETHYLENE COMBINER ADMIT NOTE RECEIVED PT FROM OR S/P HD REPLACEMENT, OBTUNDED, VDRF, SETTINGS OBTAINED, NO BLEEDING AT SITE, RECOVERED BY OR TEAM, VS STABLE, NO SKIN ISSUES NOTED, WITH 20G RH, GT IN PLACE, NICOLE COY CALLED, OKAY TO CONTINUE ALL ORDERS, ALL SAFETY MEASURES IN PLACE.
[2019-03-23 22:00] VITALS: BP 112/70
[2019-03-24] MEDS ORDERED: DEXTROSE 50%-WATER 50 ML DISP.SYRIN IV PRN
[2019-03-24] MEDS: BLOOD SUGAR DIAGNOSTIC 1 EACH STRIP IN SCH ×5 (00:58→23:23)
[2019-03-24 02:00] VITALS: BP 118/87
[2019-03-24 06:24] VITALS: BP 117/87
[2019-03-24] MEDS: INSULIN REGULAR, HUMAN 100 UNIT/ML 3 ML VIAL SQ PRN ×3 (06:27→17:18)
--- NOTE | 2019-03-24 06:32 | NUR ---
RN CLOSING NOTE ENDORSED PT FOR SHERRY, AM RN WILL F/U WITH RECONCILED MEDS WELL PLAN OF CARE, NO LABS ORDERED.
[2019-03-24 06:49] LABS: CALCIUM, SERUM 9.1 mg/dL (8.5-10.1); CREATININE 5.6 mg/dL (0.6-1.3); MAGNESIUM 2.3 mg/dL (1.8-2.4); PHOSPHORUS 5.1 mg/dL (2.5-4.9); POTASSIUM 3.9 mmol/L (3.5-5.1)
[2019-03-24 06:59] LABS: BASOPHILS % (AUTO) 0.4 % (0.0-2.0); EOSINOPHILS % (AUTO) 4.5 % (0.0-6.0); HEMATOCRIT 32 % (33-45); HEMOGLOBIN 10.7 g/dL (11.5-14.8); LYMPHOCYTES # (AUTO) 1.4 /CMM (0.8-4.8); LYMPHOCYTES % (AUTO) 16.3 % (20.0-44.0); MEAN CORPUSCULAR HGB CONC 34 g/dl (31.0-36.0); MEAN CORPUSCULAR VOLUME 92 fL (82-100); MONOCYTES # (AUTO) 0.5 /CMM (0.1-1.30); MONOCYTES % (AUTO) 6.2 % (2.0-12.0); NEUTROPHILS # (AUTO) 6.2 /CMM (1.8-8.9); NEUTROPHILS % (AUTO) 72.6 % (43.0-81.0); PLATELET COUNT (AUTO) 227 /CMM (150-450); RED BLOOD CELL COUNT(AUTO) 3.46 MIL/uL (4.0-5.2); WHITE BLOOD COUNT (AUTO) 8.5 K/uL (4.3-11.0)
--- NOTE | 2019-03-24 07:20 | NUR ---
TIMBER GIRDLER OPENING NOTE: RECEIVED PATIENT IN BED, AWAKE WITH EYES OPEN. ON MECHANICAL VENTILATION WITH PORTEX 7 AND SETTINGS OF AC:10. TV500, TIO2: 40%, PEEP:5. LUNG SOUNDS ARE CLEAR, TOLERATING WELL, NO SHORTNESS OF BREATH, NO ACUTE DISTRESS NOTED. WITH GTUBE, IN PLACE AND PATENT. NO RESIDUAL NOTED. WITH ORDER OF NEPRO 50CC/HR, CURRENTLY ON 25CC/HR TO START. ON CARDIAC MONITORING WITH SINUS RHYTHM NOTED. WITH IV SITE ON THE RIGHT HAND WITH G20 SALINE LOCK, PATENT AND IN PLACE. SITE CLEAN, DRY AND INTACT. SKIN IS INTACT. HD SHUNT LOCATED AT THE LEFT ARM, BRUIT HEARD. RIGHT FOOT EDEMA NOTED WITH +1. BED IN LOW POSITION, LOCKED AND AT SEMI-WOODARD'S. CALL LIGHT IN REACH. WILL CONTINUE TO MONITOR.
--- NOTE | 2019-03-24 07:40 | NUR ---
TELEPHONE CONSENT OBTAINED FROM SHAILESH SEGURA FOR US GUIDED THORACENTESIS THAT WILL BE DONE TO THE PATIENT TODAY.
[2019-03-24 08:00] VITALS: BP 117/87
[2019-03-24] MEDS ORDERED: ONDANSETRON 4 MG TAB.RAPDIS GT PRN (08:30)
[2019-03-24] MEDS ORDERED: ACETAMINOPHEN 325 MG TABLET PO PRN ×2 (08:30)
[2019-03-24] MEDS ORDERED: MISCELLANEOUS MED 1 EA EA GT PRN (08:30)
[2019-03-24] MEDS ORDERED: GLUCAGON,HUMAN RECOMBINANT 1 MG/VIAL VIAL IM PRN (08:30)
[2019-03-24] MEDS ORDERED: NEPRO 1,000 ML BOTTLE GT PRN ×2 (08:30)
[2019-03-24] MEDS: IPRATROPIUM NEB FS 0.5 MG/2.5 ML AMPUL.NEB NEB SCH ×3 (08:42→20:13)
[2019-03-24] MEDS: ALBUTEROL FS 2.5 MG/0.5 ML VIAL.NEB NEB SCH ×3 (08:42→20:13)
[2019-03-24] MEDS ORDERED: FAMOTIDINE (20 MG) 20 MG TABLET GT SCH (09:00)
[2019-03-24] MEDS: CHOLESTYRAMINE/ASPARTAME 4 G/PKT PACKET GT SCH ×2 (09:21→21:43)
[2019-03-24] MEDS: LEVETIRACETAM SOL (5 ML) 100 MG/ML UDC GT SCH ×2 (09:21→21:43)
[2019-03-24] MEDS: ASCORBIC ACID 500 MG TABLET GT SCH (09:21)
[2019-03-24] MEDS: CHLORHEXIDINE GLUCONATE 15 ML UDC MM SCH ×2 (09:21→21:43)
[2019-03-24] MEDS: DOCUSATE SODIUM LIQ 100 MG/10 ML UDC GT SCH ×2 (09:21→16:33)
[2019-03-24] MEDS: MIDODRINE HCL (5MG) 5 MG TABLET GT SCH ×3 (09:22→16:33)
[2019-03-24] MEDS: LACTOBACILLUS RHAMNOSUS GG 1 EACH CAP.SPRINK GT SCH (09:22)
[2019-03-24] MEDS: VIT B CMPLX 3/FA/VIT C/BIOTIN 1 TAB TABLET GT SCH (09:22)
--- NOTE | 2019-03-24 09:46 | NUR ---
RIPSAW OPERATOR NOTE THORACENTESIS DONE, 500 ML REMOVED ON LT SIDE OF CHEST BP 113/68 HR 86 SAT 100%
[2019-03-24] MEDS: BRIMONIDINE TARTRATE OPHT SOLN 5 ML BOTTLE EACHEYE SCH ×3 (10:42→16:35)
[2019-03-24] MEDS: Z GUARD REMEDY 2 OZ OINT TP SCH (10:43)
--- NOTE | 2019-03-24 12:07 | NUR ---
INCOME TAX AUDITOR NOTE SPOKE WIT DR RIVERA THAT THORACENTESIS IS DONE , SALTED NO NEED TO SENT TO LAB FLUID S\P THORACENTESIS
[2019-03-24] MEDS ORDERED: PIPERACILLIN /TAZOBACTAM 2.25 G in IV D5W 50 ML IV SCH (13:00)
--- NOTE | 2019-03-24 13:02 | NUR ---
television engineer note noted vomiting with yellow color urine , stopped g tube feeding, keep hob elevated at all time student from [facility] dnp at bedside will relay patient condition, h' will hold midodrine at this time ,
[2019-03-24] MEDS ORDERED: ALBUTEROL FS 2.5 MG/3 ML VIAL.NEB IH SCH (13:30)
[2019-03-24 14:00] VITALS: BP 128/71
[2019-03-24 16:00] VITALS: BP 129/73
--- NOTE | 2019-03-24 16:00 | NUR ---
TELE R NOTE RECHECK RESIDUAL, NO RESIDUAL NOTED WILL,START G TUBE FEEDING AT 25 ML PER HOUR AT THIS TIME , WILL CONT TO MONITOR CLOSELY
[2019-03-24] MEDS: PROSOURCE / PROSTAT (PYXIS) 30 ML UDC GT SCH (16:33)
--- NOTE | 2019-03-24 18:00 | NUR ---
PERSONALIZED LIVING MANAGER NURSE NOTE: TELEPHONE CONSENT OBTAINED FROM SHAILESH (DAUGHTER) FOR HEMODIALYSIS OF PATIENT.
--- NOTE | 2019-03-24 19:00 | NUR ---
WOOL SHEARER CLOSING NOTE: PATIENT IS IN BED. AWAKE AND AROUSABLE TO PAIN. STILL ON MECHANICAL VENTILATION AND TOLERATING SETTINGS. GTUBE FEEDING RATE CHANGED ON SHIFT. NOW @35CC/HR. CURRENTLY @ 25CC/HR FOR PATIENT TO TOLERATE. AV SHUNT SITE DRESSING CLEAN, INTACT AND DRY. DIALYSIS IS SCHEDULED TO COME ON THE NEXT SHIFT AND WILL MAKE ONCOMING NURSE AWARE. BED IN LOW POSITION, SEMI-WOODARD'S AND LOCKED. CALL LIGHT IN REACH. WILL ENDORSE TO ONCOMING SHIFT FOR CONTINUITY OF CARE.
--- NOTE | 2019-03-24 19:49 | NUR ---
HEARING THERAPIST INITIAL NOTE: RECEIVED PATIENT IN BED, AWAKE WITH EYES OPEN. ON MECHANICAL VENTILATION WITH PORTEX 7 AND SETTINGS OF AC:10. TV500, TIO2: 40%, PEEP:5. LUNG SOUNDS ARE CLEAR, TOLERATING WELL, NO SHORTNESS OF BREATH, NO ACUTE DISTRESS NOTED. WITH GTUBE, IN PLACE AND PATENT. NO RESIDUAL NOTED. WITH ORDER OF NEPRO@ 25CC/HR . ON CARDIAC MONITORING WITH SINUS RHYTHM NOTED. WITH IV SITE ON THE RIGHT HAND WITH G20 SALINE LOCK, PATENT AND IN PLACE. SITE CLEAN, DRY AND INTACT. SKIN IS INTACT. HD SHUNT LOCATED AT THE LEFT ARM, BRUIT HEARD. RIGHT FOOT EDEMA NOTED WITH +1. BED IN LOW POSITION, LOCKED AND AT SEMI-WOODARD'S. CALL LIGHT IN REACH. WILL CONTINUE TO MONITOR.
[2019-03-24 22:00] VITALS: BP 131/78
[2019-03-24] MEDS: INSULIN GLARGINE, 100 UNIT/ML CARTRIDGE SQ SCH (23:23)
[2019-03-25] VITALS: BP 112/78
[2019-03-25] MEDS: ALBUTEROL FS 2.5 MG/0.5 ML VIAL.NEB NEB SCH ×4 (01:46→20:17)
[2019-03-25] MEDS: IPRATROPIUM NEB FS 0.5 MG/2.5 ML AMPUL.NEB NEB SCH ×4 (01:47→20:17)
[2019-03-25 04:54] VITALS: BP 118/84
[2019-03-25] MEDS: BLOOD SUGAR DIAGNOSTIC 1 EACH STRIP IN SCH ×4 (06:34→23:43)
--- NOTE | 2019-03-25 06:39 | NUR ---
RN CLOSING NOTE S/P HD, 300 ML O/P, WELL TOLERATED, S/P PARACENTESIS IN AM 500 ML O/P, VS STABLE, WILL CONT' TO MONITOR.
[2019-03-25 06:56] LABS: BASOPHILS % (AUTO) 0.7 % (0.0-2.0); EOSINOPHILS % (AUTO) 4.9 % (0.0-6.0); HEMATOCRIT 31 % (33-45); HEMOGLOBIN 10.1 g/dL (11.5-14.8); LYMPHOCYTES # (AUTO) 1.3 /CMM (0.8-4.8); LYMPHOCYTES % (AUTO) 19.1 % (20.0-44.0); MEAN CORPUSCULAR HGB CONC 33 g/dl (31.0-36.0); MEAN CORPUSCULAR VOLUME 91 fL (82-100); MONOCYTES # (AUTO) 0.7 /CMM (0.1-1.30); MONOCYTES % (AUTO) 9.9 % (2.0-12.0); NEUTROPHILS # (AUTO) 4.5 /CMM (1.8-8.9); NEUTROPHILS % (AUTO) 65.4 % (43.0-81.0); PLATELET COUNT (AUTO) 219 /CMM (150-450); RED BLOOD CELL COUNT(AUTO) 3.35 MIL/uL (4.0-5.2); WHITE BLOOD COUNT (AUTO) 6.9 K/uL (4.3-11.0)
--- NOTE | 2019-03-25 07:10 | NUR ---
SALES CORRESPONDENCE CLERK OPENING NOTE: RECEIVED PATIENT IN BED. AWAKE, ABLE TO OPEN EYES. ON MECHANICAL VENTILATION WITH PORTEX 7 AND SETTINGS OF AC:10. TV:500, FIO2: 40, PEEP:5. NO SOB NOT ACUTE DISTRESS NOTED. TOLERATING SETTINGS WELL. ON CARDIAC MONITORING WITH SINUS RHYTHM OF 83 NOTED. GTUBE, PATENT AND IN PLACE WITH NEPRO @ 25CC/HR AND TOLERATING WELL. WITH AV SHUNT ON THE LEFT ARM, DRESSING INTACT, CLEAN AND DRY. IV SITE IN R HAND G20 PATENT, DRESSING DRY AND INTACT. REDNESS ON SACRUM NOTED. BED LOCKED, IN LOW POSITION, SEMI-FOWLERS. CALL LIGHT IN REACH. WILL CONTINUE TO MONITOR.
[2019-03-25 07:18] LABS: CALCIUM, SERUM 9.2 mg/dL (8.5-10.1); CREATININE 3.9 mg/dL (0.6-1.3); MAGNESIUM 2.3 mg/dL (1.8-2.4); PHOSPHORUS 3.2 mg/dL (2.5-4.9); POTASSIUM 3.6 mmol/L (3.5-5.1)
[2019-03-25 08:00] VITALS: BP 90/36
[2019-03-25] MEDS ORDERED: ALBUMIN 25% 25 GM in PREMIX 1 EA IV ONE (08:00)
--- NOTE | 2019-03-25 08:00 | NUR ---
MAINTAINABILITY ENGINEER NOTE: ALBUMIN NOT NEEDED PER DIALYSIS NURSE. DOSE SCHEDULED HELD.
--- NOTE | 2019-03-25 08:01 | NUR ---
WOUND CARE CONSULT: PT FOLLOWED BY PLASTIC SURGERY TEAM FOR WOUND/SKIN TREATMENT. DEFER TO SURGICAL TEAM FOR WOUND/SKIN TREATMENT PLAN. PT ON FIRST STEP CIRRUS LOW AIRLOSS MATTRESS. ALL SKIN PROTECTION MEASURES IN PLACE AND DISCUSSED WITH NURSING STAFF. WILL SEE PRN. CURRENT CABRERA SCORE IS 8.
[2019-03-25] MEDS: BRIMONIDINE TARTRATE OPHT SOLN 5 ML BOTTLE EACHEYE SCH ×3 (09:02→16:34)
[2019-03-25] MEDS: MIDODRINE HCL (5MG) 5 MG TABLET GT SCH ×3 (09:03→16:34)
[2019-03-25] MEDS: VIT B CMPLX 3/FA/VIT C/BIOTIN 1 TAB TABLET GT SCH (09:05)
[2019-03-25] MEDS: CHLORHEXIDINE GLUCONATE 15 ML UDC MM SCH ×2 (09:05→21:02)
[2019-03-25] MEDS: DOCUSATE SODIUM LIQ 100 MG/10 ML UDC GT SCH ×2 (09:05→16:33)
[2019-03-25] MEDS: ASCORBIC ACID 500 MG TABLET GT SCH (09:05)
[2019-03-25] MEDS: LEVETIRACETAM SOL (5 ML) 100 MG/ML UDC GT SCH ×2 (09:05→21:02)
[2019-03-25] MEDS: LACTOBACILLUS RHAMNOSUS GG 1 EACH CAP.SPRINK GT SCH (09:05)
[2019-03-25] MEDS: Z GUARD REMEDY 2 OZ OINT TP SCH (09:10)
[2019-03-25] MEDS: CHOLESTYRAMINE/ASPARTAME 4 G/PKT PACKET GT SCH ×2 (09:10→21:02)
[2019-03-25] MEDS: PROSOURCE / PROSTAT (PYXIS) 30 ML UDC GT SCH ×3 (09:10→16:34)
[2019-03-25 12:00] VITALS: BP 96/46
--- NOTE | 2019-03-25 14:20 | NUR ---
STEEL PAN FORM PLACING SUPERVISOR NOTE: RECEIVED CALL FROM MONICA OF LAB DEPT REGARDING PATIENT'S POSITIVE CULTURE FOR MRSA NARES. CONTACT ISOLATION PRECAUTIONS INITIATED, CURRENT ROOMMATE MOVED TO ANOTHER ROOM. ORDERED BACTROBAN OINTMENT FOR TREATMENT. CHARGE NURSE MADE AWARE OF SITUATION.
[2019-03-25 16:00] VITALS: BP 95/47
[2019-03-25] MEDS: INSULIN REGULAR, HUMAN 100 UNIT/ML 3 ML VIAL SQ PRN (18:24)
--- NOTE | 2019-03-25 18:57 | NUR ---
HAM FACER CLOSING NOTE: PATIENT IN BED. AWAKE WITH EYE TRACKING. APPEARS COMFORTABLE, NO SOB, NO DISTRESS NOTED. TOLERATING MECHANICAL VENTILATION WELL. IV SITE AT R HAND PATENT, DRESSING CLEAN AND INTACT. GTUBE CONNECTED AND PATENT, CURRENTLY TOLERATING GTUBE FEEDING OF NEPRO AT 30CC/HR. NO CHANGES NOTED ON SHIFT. SAFETY ENSURED AND OBSERVED. BED IN LOCKED, LOW AND [facility] POSITION. WILL ENDORSE TO ONCOMING NURSE FOR CONTINUITY OF CARE.
--- NOTE | 2019-03-25 19:43 | NUR ---
FINANCIAL INSTITUTION VICE PRESIDENT INITIAL NOTE: RECEIVED PATIENT IN BED. AWAKE, ABLE TO OPEN EYES. ON MECHANICAL VENTILATION WITH PORTEX 7 AND SETTINGS OF AC:10. TV:500, FIO2: 40, PEEP:5. NO SOB NOT ACUTE DISTRESS NOTED. TOLERATING SETTINGS WELL. ON CARDIAC MONITORING WITH SINUS RHYTHM OF 83 NOTED. GTUBE, PATENT AND IN PLACE WITH NEPRO @ 35CC/HR AND TOLERATING WELL. WITH AV SHUNT ON THE LEFT ARM, DRESSING INTACT, CLEAN AND DRY. IV SITE IN R HAND G20 PATENT, DRESSING DRY AND INTACT. REDNESS ON SACRUM NOTED. BED LOCKED, IN LOW POSITION, SEMI-FOWLERS. CALL LIGHT IN REACH. WILL CONTINUE TO MONITOR.
[2019-03-25 20:23] VITALS: BP 114/47
--- NOTE | 2019-03-25 20:36 | NUR ---
PT RECEIVE STABLE ON MV SETTINGS ARE AC 10 500 +5 AT 40%, ALARMS ARE ON AND AUDIBLE, VENT PLUG IN AT RED OUTLET, TRACH PATENT AND SECURED, CRAIGE CARIE AND JANNY BAG IS AT BEDSIDE, WILL CONTINUE TO MONITOR Addendum: 03/25/19 at 2038 by AMINA GARCIA RT Amended: Links added.
[2019-03-25] MEDS: MUPIROCIN OINT 2% 22 GM TUBE SCH (21:03)
[2019-03-25] MEDS: INSULIN GLARGINE, 100 UNIT/ML CARTRIDGE SQ SCH (23:43)
[2019-03-26 00:10] VITALS: BP 131/45
[2019-03-26] MEDS: IPRATROPIUM NEB FS 0.5 MG/2.5 ML AMPUL.NEB NEB SCH ×4 (01:51→19:10)
[2019-03-26] MEDS: ALBUTEROL FS 2.5 MG/0.5 ML VIAL.NEB NEB SCH ×4 (01:51→19:10)
[2019-03-26 04:57] VITALS: BP 102/67
[2019-03-26] MEDS: BLOOD SUGAR DIAGNOSTIC 1 EACH STRIP IN SCH ×4 (06:08→23:07)
[2019-03-26 06:30] LABS: BASOPHILS % (AUTO) 0.7 % (0.0-2.0); EOSINOPHILS % (AUTO) 5.1 % (0.0-6.0); HEMATOCRIT 32 % (33-45); HEMOGLOBIN 10.5 g/dL (11.5-14.8); LYMPHOCYTES # (AUTO) 1.4 /CMM (0.8-4.8); LYMPHOCYTES % (AUTO) 20.7 % (20.0-44.0); MEAN CORPUSCULAR HGB CONC 33 g/dl (31.0-36.0); MEAN CORPUSCULAR VOLUME 93 fL (82-100); MONOCYTES # (AUTO) 0.8 /CMM (0.1-1.30); MONOCYTES % (AUTO) 10.9 % (2.0-12.0); NEUTROPHILS # (AUTO) 4.4 /CMM (1.8-8.9); NEUTROPHILS % (AUTO) 62.6 % (43.0-81.0); PLATELET COUNT (AUTO) 258 /CMM (150-450); RED BLOOD CELL COUNT(AUTO) 3.48 MIL/uL (4.0-5.2)
[2019-03-26 06:46] LABS: CALCIUM, SERUM 9.4 mg/dL (8.5-10.1); CREATININE 3.3 mg/dL (0.6-1.3); MAGNESIUM 2.3 mg/dL (1.8-2.4); PHOSPHORUS 3.2 mg/dL (2.5-4.9); POTASSIUM 4.2 mmol/L (3.5-5.1)
--- NOTE | 2019-03-26 07:10 | NUR ---
RN INITIAL NOTE PATIENT IN BED, AWAKE OPENS EYES ONLY. ON VENT, 100%. NO SIGNS OF ANY PAIN NOR SOB AT THIS TIME. ON TELE MONITOR, SR. ON GTF NEPRO AT 35 ML/HR. HAS A RIGHT HAND #20 SALINE LOCKED. BED LOCKED AND IN LOWEST POSITION. WILL CONTINUE TO MONITOR
[2019-03-26 08:00] VITALS: BP 108/51
[2019-03-26] MEDS: CHOLESTYRAMINE/ASPARTAME 4 G/PKT PACKET GT SCH ×2 (08:25→23:03)
[2019-03-26] MEDS: DOCUSATE SODIUM LIQ 100 MG/10 ML UDC GT SCH ×2 (08:25→16:04)
[2019-03-26] MEDS: CHLORHEXIDINE GLUCONATE 15 ML UDC MM SCH ×2 (08:25→20:54)
[2019-03-26] MEDS: LEVETIRACETAM SOL (5 ML) 100 MG/ML UDC GT SCH ×2 (08:25→20:54)
[2019-03-26] MEDS: MIDODRINE HCL (5MG) 5 MG TABLET GT SCH ×3 (08:26→16:05)
[2019-03-26] MEDS: PROSOURCE / PROSTAT (PYXIS) 30 ML UDC GT SCH ×3 (08:26→16:05)
[2019-03-26] MEDS: LACTOBACILLUS RHAMNOSUS GG 1 EACH CAP.SPRINK GT SCH (08:26)
[2019-03-26] MEDS: BRIMONIDINE TARTRATE OPHT SOLN 5 ML BOTTLE EACHEYE SCH ×3 (08:26→16:05)
[2019-03-26] MEDS: ASCORBIC ACID 500 MG TABLET GT SCH (08:26)
[2019-03-26] MEDS: VIT B CMPLX 3/FA/VIT C/BIOTIN 1 TAB TABLET GT SCH (08:26)
[2019-03-26] MEDS: MUPIROCIN OINT 2% 22 GM TUBE SCH ×2 (08:42→20:55)
[2019-03-26] MEDS: Z GUARD REMEDY 2 OZ OINT TP SCH (08:42)
--- NOTE | 2019-03-26 10:22 | NUR ---
RN NOTE DR MALDONADO AT BEDSIDE, AWAITING FOR WOUND CARE TO CHECK THE RIGHT UA SITE WHICH IS LEAKING. STILL PENDING. NNO FOR THIS PATIENT FOR NOW
[2019-03-26] MEDS: NEPRO 1,000 ML BOTTLE GT PRN (10:43)
[2019-03-26 12:00] VITALS: BP 121/51
[2019-03-26 16:00] VITALS: BP 123/51
--- NOTE | 2019-03-26 18:53 | NUR ---
RN CLOSING NOTE PATIENT IN BED, AWAKE AND OPENS EYES ONLY. ALL MEDS GIVEN, ALL NEEDS MET. WOUND TX ORDERED. REPOSITIONED PER PROTOCOL. PATIENT HAS NO SIGNS OF ANY DISTRESS NOR PAIN AT THIS TIME. HD SCHEDULED FOR TOMORROW. BED LOCKED AND IN LOWEST POSITION. WILL ENDORSE TO NOC SHIFT FOR SHERRY
[2019-03-26 20:00] VITALS: BP 149/85
[2019-03-26] MEDS: INSULIN REGULAR, HUMAN 100 UNIT/ML 3 ML VIAL SQ PRN (23:14)
[2019-03-26] MEDS: INSULIN GLARGINE, 100 UNIT/ML CARTRIDGE SQ SCH (23:18)
[2019-03-27] VITALS: BP 120/76
[2019-03-27] MEDS: IPRATROPIUM NEB FS 0.5 MG/2.5 ML AMPUL.NEB NEB SCH ×4 (01:25→19:27)
[2019-03-27] MEDS: ALBUTEROL FS 2.5 MG/0.5 ML VIAL.NEB NEB SCH ×4 (01:26→19:27)
[2019-03-27 04:00] VITALS: BP 110/76
--- NOTE | 2019-03-27 05:12 | NUR ---
RT NOTE: RECEIVED PT ON ORDERED NOTED AC VENT SETTINGS. NO RESPIRATORY DISTRESS NOTED. TRACH CHECKED SECURE AND PATENT. SXD AND LAVAGED Q ROUND AND NEEDED. TXS GIVEN ORDERED WITH NO ADVERSE REACTIONS NOTED. TRACH CARE DONE. SPARE TRACH AND JANNY BAG @ BEDSIDE. ALARMS CHECKED AND AUDIBLE. VENT PLUGGED INTO RED OUTLET. Addendum: 03/27/19 at 0513 by SEN ASHFORD RT Amended: Links added.
[2019-03-27] MEDS: BLOOD SUGAR DIAGNOSTIC 1 EACH STRIP IN SCH ×4 (05:56→23:39)
--- NOTE | 2019-03-27 06:00 | NUR ---
CHANGE MANAGEMENT FACILITATOR: NO SIGNIFICANT CHANGE OF CONDITION DURING THE SHIFT. GTF TOLERATED WELL. REMAINED SR ON TELE MONITOR. VENT SETTINGS ORDERED WT NO ACUTE DISTRESS. NO EVIDENCE OF DISCOMFORT. HOB AT 35 DEGREES. BED IN LOWEST AND LOCKED POSITION, SIDE RAILS UP X2, HOB AT 35 DEGREES. FREQUENT ORAL SUCTIONING RENDERED. WILL CONTINUE TO MONITOR.
[2019-03-27 06:23] LABS: BASOPHILS % (AUTO) 0.5 % (0.0-2.0); EOSINOPHILS % (AUTO) 5.7 % (0.0-6.0); HEMATOCRIT 31 % (33-45); HEMOGLOBIN 10.1 g/dL (11.5-14.8); LYMPHOCYTES # (AUTO) 1.5 /CMM (0.8-4.8); LYMPHOCYTES % (AUTO) 18.6 % (20.0-44.0); MEAN CORPUSCULAR HGB CONC 33 g/dl (31.0-36.0); MEAN CORPUSCULAR VOLUME 93 fL (82-100); MONOCYTES # (AUTO) 0.6 /CMM (0.1-1.30); MONOCYTES % (AUTO) 7.5 % (2.0-12.0); NEUTROPHILS # (AUTO) 5.5 /CMM (1.8-8.9); NEUTROPHILS % (AUTO) 67.7 % (43.0-81.0); PLATELET COUNT (AUTO) 245 /CMM (150-450); RED BLOOD CELL COUNT(AUTO) 3.33 MIL/uL (4.0-5.2); WHITE BLOOD COUNT (AUTO) 8.1 K/uL (4.3-11.0)
[2019-03-27 06:28] LABS: CALCIUM, SERUM 9.5 mg/dL (8.5-10.1); CREATININE 4.7 mg/dL (0.6-1.3); MAGNESIUM 2.6 mg/dL (1.8-2.4); PHOSPHORUS 4.2 mg/dL (2.5-4.9); POTASSIUM 4.4 mmol/L (3.5-5.1)
--- NOTE | 2019-03-27 07:00 | NUR ---
TELE NOTES AM RN PATIENT RECIVED BY PM SHIFT PATIENT IS ASLEEP BUT WOKEN UP WITH SOUND AND TOUCH PATIENT IS ABLE TO OPEN EYES. PATIENT IS VENTED AND IS SATURATING WELL AT 100 % FIO2 OF 40% PATIENT IS TOLERATING OXYGEN WELL. PATIENT IS CURRENTLY SINUS RHYTHM. PATIENT DOESH AVE SACRAL REDNESS. NEPRO AT 35 ML/HR WITH 5 ML RESIDUAL. PATIENTS R HAND IV 20, LINE IS PATENT AND INTACT WITH NO SIGNS OF INFECTION. AND TORI AV FISTULA . BED IN LOWEST POSITION, SAFETY MAINTAINED AND CALL LIGHT WITH IN REACH . WILL CONTINUE TO MONITOR
[2019-03-27 08:00] VITALS: BP 139/58
[2019-03-27] MEDS: BRIMONIDINE TARTRATE OPHT SOLN 5 ML BOTTLE EACHEYE SCH ×3 (09:00→16:40)
[2019-03-27] MEDS: DOCUSATE SODIUM LIQ 100 MG/10 ML UDC GT SCH ×2 (09:25→16:43)
[2019-03-27] MEDS: ASCORBIC ACID 500 MG TABLET GT SCH (09:25)
[2019-03-27] MEDS: PROSOURCE / PROSTAT (PYXIS) 30 ML UDC GT SCH ×3 (09:25→16:40)
[2019-03-27] MEDS: LEVETIRACETAM SOL (5 ML) 100 MG/ML UDC GT SCH ×2 (09:25→21:20)
[2019-03-27] MEDS: CHLORHEXIDINE GLUCONATE 15 ML UDC MM SCH ×2 (09:25→21:20)
[2019-03-27] MEDS: LACTOBACILLUS RHAMNOSUS GG 1 EACH CAP.SPRINK GT SCH (09:26)
[2019-03-27] MEDS: MIDODRINE HCL (5MG) 5 MG TABLET GT SCH ×3 (09:27→16:42)
[2019-03-27] MEDS: VIT B CMPLX 3/FA/VIT C/BIOTIN 1 TAB TABLET GT SCH (10:24)
[2019-03-27] MEDS: MUPIROCIN OINT 2% 22 GM TUBE SCH ×2 (10:24→21:21)
[2019-03-27] MEDS: Z GUARD REMEDY 2 OZ OINT TP SCH (10:25)
[2019-03-27] MEDS: CHOLESTYRAMINE/ASPARTAME 4 G/PKT PACKET GT SCH ×2 (10:26→21:20)
[2019-03-27 12:00] VITALS: BP 111/51
--- NOTE | 2019-03-27 12:00 | NUR ---
GREY IRON MOLDER NOTES PATIENT FINISHED HD. DIALYSIS NURSE - TOTAL OUT 1500 ML
[2019-03-27] MEDS: INSULIN REGULAR, HUMAN 100 UNIT/ML 3 ML VIAL SQ PRN ×3 (12:29→23:41)
[2019-03-27 16:00] VITALS: BP 140/48
--- NOTE | 2019-03-27 18:50 | NUR ---
RN CLOSING NOTE PATIENT IN BED, AWAKE AND OPENS EYES ONLY. ALL MEDS GIVEN, ALL NEEDS MET. WOUND TX ORDERED. REPOSITIONED PER PROTOCOL. PATIENT HAS NO SIGNS OF ANY DISTRESS NOR PAIN AT THIS TIME. PATIENT HAS HD WITH 1500 ML OUT. PROVIDED AM CARE AND WOUND CHANGE KEPT CLEAN AND DRY. BED LOCKED AND IN LOWEST POSITION. ETL DEVELOPER INTACT WILL ENSURE TO PM SHIFT
--- NOTE | 2019-03-27 19:45 | NUR ---
ECOMMERCE PROJECT MANAGER NOTES, RECEIVED PATIENT IN BED, ASLEEP AT THIS TIME, BUT AROUSES TO TACTILE STIMULI, ON MECHANICAL VENTILATOR AT THIS TIME, TOLERATING SETTINGS WE'LL, SATURATING WELL AT 100 %, NORMAL SINUS RHYTHM IN THE MONITOR WITH HR 70S AT THIS TIME, NEPRO AT 35 ML/HR INFUSING WELL AND PATIENT TOLERATED WELL, MINIMAL RESIDUAL NOTED, PATIENTS R HAND IV 20, PATENT AND INTACT, WITH NO SIGNS OF INFECTION, AND TORI AV FISTULA WITH OPEN SKIN AT SITE, WILL TAKE PICTURE AND PLACE IN CHART, APPLIED MEPILEX, CONTACT ISOLATION MAINTAINED, BED IN LOWEST POSITION, SAFETY MAINTAINED AND CALL LIGHT W/I REACH, WILL CONTINUE TO MONITOR CLOSELY.
[2019-03-27 20:00] VITALS: BP 145/70
[2019-03-27] MEDS: INSULIN GLARGINE, 100 UNIT/ML CARTRIDGE SQ SCH (22:38)
[2019-03-28] VITALS: BP 151/95
[2019-03-28] MEDS: IPRATROPIUM NEB FS 0.5 MG/2.5 ML AMPUL.NEB NEB SCH ×4 (01:23→19:51)
[2019-03-28] MEDS: ALBUTEROL FS 2.5 MG/0.5 ML VIAL.NEB NEB SCH ×4 (01:23→19:51)
[2019-03-28] MEDS: NEPRO 1,000 ML BOTTLE GT PRN (03:50)
[2019-03-28 04:00] VITALS: BP 138/90
[2019-03-28] MEDS: INSULIN REGULAR, HUMAN 100 UNIT/ML 3 ML VIAL SQ PRN ×4 (05:37→23:41)
[2019-03-28] MEDS: BLOOD SUGAR DIAGNOSTIC 1 EACH STRIP IN SCH ×4 (05:37→23:36)
[2019-03-28 07:00] LABS: BASOPHILS % (AUTO) 0.5 % (0.0-2.0); EOSINOPHILS % (AUTO) 6.8 % (0.0-6.0); HEMATOCRIT 31 % (33-45); HEMOGLOBIN 9.9 g/dL (11.5-14.8); LYMPHOCYTES # (AUTO) 0.9 /CMM (0.8-4.8); MEAN CORPUSCULAR HGB CONC 32 g/dl (31.0-36.0); MEAN CORPUSCULAR VOLUME 93 fL (82-100); MONOCYTES # (AUTO) 0.5 /CMM (0.1-1.30); MONOCYTES % (AUTO) 7.3 % (2.0-12.0); NEUTROPHILS # (AUTO) 4.5 /CMM (1.8-8.9); NEUTROPHILS % (AUTO) 71.4 % (43.0-81.0); PLATELET COUNT (AUTO) 267 /CMM (150-450); RED BLOOD CELL COUNT(AUTO) 3.33 MIL/uL (4.0-5.2); WHITE BLOOD COUNT (AUTO) 6.3 K/uL (4.3-11.0)
--- NOTE | 2019-03-28 07:00 | NUR ---
HOSPICE CARE SALES CONSULTANT NOTES, PATIENT IN BED, ASLEEP AT THIS TIME, BUT AROUSES TO TACTILE STIMULI, ON MECHANICAL VENTILATOR AT THIS TIME, TOLERATING SETTINGS WELL, SATURATING WELL AT 100 %, NORMAL SINUS RHYTHM IN THE MONITOR WITH HR 70-80S AT THIS TIME, NO SIGNIFICANT CHANGE IN CONDITION DURING THE NIGHT, CONTACT ISOLATION MAINTAINED, BED IN LOWEST POSITION, SAFETY MAINTAINED AND CALL LIGHT W/I REACH, WILL ENDORSE CONTINUITY OF CARE TO ONCOMING NURSE.
--- NOTE | 2019-03-28 07:15 | NUR ---
RN INITIAL NOTE PATIENT IN BED, AWAKE OPENS EYES ONLY. ON VENT, SATING WELL AT 100%. NO SIGNS OF ANY PAIN NOR SOB AT THIS TIME. ON TELE MONITOR, SR. ON GTF NEPRO AT 35 ML/HR. HAS A RIGHT HAND #20 SALINE LOCKED. BED LOCKED AND IN LOWEST POSITION. WILL CONTINUE TO MONITOR
[2019-03-28 07:23] LABS: CALCIUM, SERUM 9.6 mg/dL (8.5-10.1); CREATININE 3.5 mg/dL (0.6-1.3); MAGNESIUM 2.4 mg/dL (1.8-2.4); PHOSPHORUS 3.2 mg/dL (2.5-4.9); POTASSIUM 3.9 mmol/L (3.5-5.1)
--- NOTE | 2019-03-28 07:40 | NUR ---
RN NOTE FIDEL FROM WOUND CARE HAS SEEN THE PATIENT WITH ME REGARDING THE PATIENT'S LEFT UA SKIN TEAR FROM THE AV FISTULA. PER FIDEL, SHE WILL LET DR PEDRAZA AND ZUNILDA Bingham KNOW ABOUT THIS. OK TO COVER WITH MEPILEX FOR NOW.
[2019-03-28 08:00] VITALS: BP 128/54
--- NOTE | 2019-03-28 08:10 | NUR ---
RT PATIENT REC'D TRACHED ON [facility] VENT WITH ORDERED SETTINGS BERE WELL. ALARMS CHECKED + AUDIBLE. AMBU BAG AT [facility]. PATIENT APPEARS COMFORTABLE AND IN NO DISTRESS. CONT CURRENT PLAN OF RESP CARE. Addendum: 03/28/19 at 1007 by DANELLE MORTENSEN RT Amended: Links added.
[2019-03-28] MEDS: DOCUSATE SODIUM LIQ 100 MG/10 ML UDC GT SCH ×2 (08:37→17:04)
[2019-03-28] MEDS: VIT B CMPLX 3/FA/VIT C/BIOTIN 1 TAB TABLET GT SCH (08:37)
[2019-03-28] MEDS: PROSOURCE / PROSTAT (PYXIS) 30 ML UDC GT SCH ×3 (08:37→17:05)
[2019-03-28] MEDS: LACTOBACILLUS RHAMNOSUS GG 1 EACH CAP.SPRINK GT SCH (08:37)
[2019-03-28] MEDS: LEVETIRACETAM SOL (5 ML) 100 MG/ML UDC GT SCH ×2 (08:37→21:02)
[2019-03-28] MEDS: ASCORBIC ACID 500 MG TABLET GT SCH (08:37)
[2019-03-28] MEDS: CHLORHEXIDINE GLUCONATE 15 ML UDC MM SCH ×2 (08:37→21:02)
[2019-03-28] MEDS: MIDODRINE HCL (5MG) 5 MG TABLET GT SCH ×3 (08:37→17:00)
[2019-03-28] MEDS: CHOLESTYRAMINE/ASPARTAME 4 G/PKT PACKET GT SCH ×2 (08:40→21:02)
[2019-03-28] MEDS: Z GUARD REMEDY 2 OZ OINT TP SCH (08:53)
[2019-03-28] MEDS: MUPIROCIN OINT 2% 22 GM TUBE SCH ×2 (08:53→21:03)
[2019-03-28] MEDS: BRIMONIDINE TARTRATE OPHT SOLN 5 ML BOTTLE EACHEYE SCH ×3 (08:54→17:05)
[2019-03-28 12:00] VITALS: BP 149/52
--- NOTE | 2019-03-28 12:20 | NUR ---
RN NOTE MIDODRINE NOT GIVEN, PATIENT'S BP AT 149/52
[2019-03-28 16:00] VITALS: BP 141/54
--- NOTE | 2019-03-28 16:03 | NUR ---
RN NOTES RECEIVED HAND OFF REPORT FROM SWAPNA BRAVO FOR CONTINUITY OF CARE.
--- NOTE | 2019-03-28 17:06 | NUR ---
1700 MIDODRINE NOT ADMINISTERED, PT BP WAS 135/50. WILL CONTINUE TO MONITOR
--- NOTE | 2019-03-28 19:18 | NUR ---
RN CLOSING NOTES PATIENT IS RESTING COMFORTABLY IN BED AT THIS TIME, DOES NOT SHOW ANY S/SX OF RESP DISTRESS, SOB, OR PAIN. PT GTUBE IS CLOGGED, ATTEMPTED TO UNCLOG BUT HAD NO SUCCESS, ENDORSED TO NIGHTSHIFT RN. NO ACUTE CHANGES OCCURRED THROUGHOUT THE SHIFT, VITAL SIGNS ARE STABLE, PT NEEDS HAVE BEEN MET. SAFETY MEASURES HAVE BEEN IMPLEMENTED, CALL LIGHT IS WITHIN REACH, BED IS IN LOWEST AND LOCKED POSITION, SIDE RAILS UP X2, PT HAS BEEN ENDORSED TO NIGHTSHIFT RN FOR CONTINUITY OF CARE.
[2019-03-28 20:00] VITALS: BP 152/73
[2019-03-28] MEDS: INSULIN GLARGINE, 100 UNIT/ML CARTRIDGE SQ SCH (22:00)
[2019-03-29] VITALS: BP 132/68
--- NOTE | 2019-03-29 00:04 | NUR ---
RT NOTE Pt rec'd trached on [facility] vent on AC mode. No resp distress or sob noted. Trach is patent and secured. Sx'd for thick mod amt of pale yellow secretions. Alarms are set and audible. Vent plugged into red outlet. Ambu bag bedside. Will continue to monitor. Addendum: 03/29/19 at 0004 by VITOR TILLMAN RT Amended: Links added.
[2019-03-29] MEDS: ALBUTEROL FS 2.5 MG/0.5 ML VIAL.NEB NEB SCH ×3 (01:49→12:58)
[2019-03-29] MEDS: IPRATROPIUM NEB FS 0.5 MG/2.5 ML AMPUL.NEB NEB SCH ×3 (01:49→12:58)
[2019-03-29 04:00] VITALS: BP 117/40
[2019-03-29] MEDS: BLOOD SUGAR DIAGNOSTIC 1 EACH STRIP IN SCH ×2 (05:00→11:39)
[2019-03-29] MEDS: INSULIN REGULAR, HUMAN 100 UNIT/ML 3 ML VIAL SQ PRN ×2 (05:03→11:42)
[2019-03-29 07:17] LABS: BASOPHILS % (AUTO) 0.5 % (0.0-2.0); EOSINOPHILS % (AUTO) 5.8 % (0.0-6.0); HEMATOCRIT 27 % (33-45); HEMOGLOBIN 8.9 g/dL (11.5-14.8); LYMPHOCYTES # (AUTO) 1.1 /CMM (0.8-4.8); MEAN CORPUSCULAR HGB CONC 33 g/dl (31.0-36.0); MEAN CORPUSCULAR VOLUME 93 fL (82-100); MONOCYTES # (AUTO) 0.4 /CMM (0.1-1.30); MONOCYTES % (AUTO) 7.1 % (2.0-12.0); NEUTROPHILS # (AUTO) 4.1 /CMM (1.8-8.9); NEUTROPHILS % (AUTO) 67.6 % (43.0-81.0); PLATELET COUNT (AUTO) 255 /CMM (150-450); RED BLOOD CELL COUNT(AUTO) 2.92 MIL/uL (4.0-5.2)
[2019-03-29 07:20] LABS: CALCIUM, SERUM 9.5 mg/dL (8.5-10.1); CREATININE 4.9 mg/dL (0.6-1.3); MAGNESIUM 2.4 mg/dL (1.8-2.4); PHOSPHORUS 3.5 mg/dL (2.5-4.9); POTASSIUM 3.7 mmol/L (3.5-5.1)
--- NOTE | 2019-03-29 07:30 | NUR ---
RN AM NOTES PATIENT IN BED, AWAKE OPENS EYES ONLY. WITH TRACH PORTEX 7 TO MECHANICAL VENT, SETTING ORDERED, SATING WELL AT 100%. SINUS RHYTHM ON MONITOR, NO SIGNS OF PAIN, RT HAND G 20 IVHL FUSHES WELL,SITE CLEAR, LEFT ARM AV SHUNT THRILL PRESENT. ON GTF NEPRO AT 35 ML/HR. 5 ML RESIDUAL.SEE NURSING FLOWSHEET FOR SKIN ISSUES. WILL DO PRESCRIBED WOUND TREATMENT IN A WHILE. BED LOCKED AND IN LOWEST POSITION. WILL TURN AND REPOSITION Q 2HOURS. CALL LIGHT WITHIN REACH. WILL CONTINUE TO MONITOR
[2019-03-29 08:00] VITALS: BP 152/67
[2019-03-29] MEDS: ASCORBIC ACID 500 MG TABLET GT SCH (08:44)
[2019-03-29] MEDS: CHLORHEXIDINE GLUCONATE 15 ML UDC MM SCH (08:44)
[2019-03-29] MEDS: DOCUSATE SODIUM LIQ 100 MG/10 ML UDC GT SCH (08:44)
[2019-03-29] MEDS: LEVETIRACETAM SOL (5 ML) 100 MG/ML UDC GT SCH (08:44)
[2019-03-29] MEDS: MIDODRINE HCL (5MG) 5 MG TABLET GT SCH ×2 (08:45→13:00)
[2019-03-29] MEDS: VIT B CMPLX 3/FA/VIT C/BIOTIN 1 TAB TABLET GT SCH (08:45)
[2019-03-29] MEDS: LACTOBACILLUS RHAMNOSUS GG 1 EACH CAP.SPRINK GT SCH (08:45)
[2019-03-29] MEDS: CHOLESTYRAMINE/ASPARTAME 4 G/PKT PACKET GT SCH (08:45)
[2019-03-29] MEDS: Z GUARD REMEDY 2 OZ OINT TP SCH (08:46)
[2019-03-29] MEDS: MUPIROCIN OINT 2% 22 GM TUBE SCH (08:57)
[2019-03-29] MEDS: BRIMONIDINE TARTRATE OPHT SOLN 5 ML BOTTLE EACHEYE SCH ×2 (08:58→13:59)
[2019-03-29] MEDS: PROSOURCE / PROSTAT (PYXIS) 30 ML UDC GT SCH ×2 (08:59→14:00)
--- NOTE | 2019-03-29 09:30 | NUR ---
RN NOTES DUE MEDS GIVEN
--- NOTE | 2019-03-29 11:42 | NUR ---
RN NOTES ACCUCHECK DONE. BS 140 MG/DL. 2 UNITS HUM R GIVEN PER SS.
[2019-03-29 12:00] VITALS: BP_SYST 131; BP_SYST 146; BP_DIAS 66
[2019-03-29] MEDS ORDERED: MUPI22OI7 (12:43)
[2019-03-29 16:00] VITALS: BP 154/72
--- NOTE | 2019-03-29 16:42 | NUR ---
DEVELOPMENT VICE PRESIDENT NOTES PATIENT DISCHARGE TO [facility] TODAY PER MD IN STABLE CONDITION. PROVIDED DC INSTRUCTION,, MED RECON LIST AND HEALTH TEACHINGS. IV ACCESS TO RIGHT HAND REMOVED, PRESSURES APPLIED, NO BLEEDING DRESSING IN PLACE. WILL FOLLOW UP WITH PCP PER FACILITY PROTOCOL. PHOTOS OF SKIN ISSUES TAKEN AND PLACED IN CHART. ALL PAPERWORKS SIGNED. REPORT CALLED TO EILEEN AT RECEIVING FACILITY EARLIER. PT ;EFT UNIT IN STABLE CONDITION VIA GURNEY. PT ENDORSED TO AMBULANCE CREW ACCORDINGLY.
== END 2019-03-29 16:42 | DRG 264 ==
LOC: ER 14:20 → TELE1 16:18
PROVIDERS: ADMIT Nurse Practitioner Acute Care; ATTEND Hospitalist
PROC: 5A1955Z Respiratory Ventilation, Greater than 96 Consecutive Hours (ICD-10-PCS; principal; 2019-03-23)
PROC: 0X390ZZ Control Bleeding in Left Upper Arm, Open Approach (ICD-10-PCS; 2019-03-23)
PROC: 5A1D70Z Performance of Urinary Filtration, Intermittent, Less than 6 Hours Per Day (ICD-10-PCS; 2019-03-23)
PROC: 0W9B3ZZ Drainage of Left Pleural Cavity, Percutaneous Approach (ICD-10-PCS; 2019-03-24)
DX: T82.838A Hemorrhage due to vascular prosthetic devices, implants and grafts, initial encounter (principal); N18.6 End stage renal disease; R53.2 Functional quadriplegia; G93.1 Anoxic brain damage, not elsewhere classified; I12.0 Hypertensive chronic kidney disease with stage 5 chronic kidney disease or end stage renal disease; Z99.11 Dependence on respirator [ventilator] status; R40.3 Persistent vegetative state; E87.1 Hypo-osmolality and hyponatremia; J96.10 Chronic respiratory failure, unspecified whether with hypoxia or hypercapnia; J90 Pleural effusion, not elsewhere classified; Y84.8 Other medical procedures as the cause of abnormal reaction of the patient, or of later complication, without mention of misadventure at the time of the procedure; Z99.2 Dependence on renal dialysis; E11.22 Type 2 diabetes mellitus with diabetic chronic kidney disease; E78.5 Hyperlipidemia, unspecified; E87.70 Fluid overload, unspecified; I25.10 Atherosclerotic heart disease of native coronary artery without angina pectoris; Z93.1 Gastrostomy status; R13.10 Dysphagia, unspecified; D63.8 Anemia in other chronic diseases classified elsewhere; G40.909 Epilepsy, unspecified, not intractable, without status epilepticus; L98.8 Other specified disorders of the skin and subcutaneous tissue; L90.5 Scar conditions and fibrosis of skin; Z87.01 Personal history of pneumonia (recurrent); Z22.322 Carrier or suspected carrier of Methicillin resistant Staphylococcus aureus; Z79.4 Long term (current) use of insulin; Z90.710 Acquired absence of both cervix and uterus; Y84.1 Kidney dialysis as the cause of abnormal reaction of the patient, or of later complication, without mention of misadventure at the time of the procedure; Y92.129 Unspecified place in nursing home as the place of occurrence of the external cause
CPT/HCPCS: 31720; 36415; 71045-TC; 76942-TC; 80048-TC; 82962-TC; 83735-TC; 84100-TC; 85025-TC; 85730-TC; 86706; 87081-TC; 87340; 90935-TC; 94002-TC; 94003-TC; 94760-TC; 94762-TC; 99082-TC; A4216; A4623; A6403; G0378; J0690; J0885; J1644; J1815; J1953; J2543; J2704; J3010; J3490; J7060; P9047; Q0162

== ENCOUNTER 2019-04-15 13:12 | Inpatient (IN) | payer MEDICARE, MEDICAID ==
[~2019-04-15] VITALS: Ht 160 cm; Wt 77.1 kg
[~2019-04-15 13:12] MED LIST changes: +ACET-868 PO; -ALBU1.25 NEB; +ALBU2.5V38 IH; -ASCO500C18 GT; +EPOE1000 SQ; +GLUC1KIT IM; -Hydrogel Dressing TP; +INSU100I26 SQ; -INSU100I30 SQ; +INSU100V3 SQ; -INSU100V30 IJ; -IPRA0.2S9 NEB; -LACT1CAP72 PO; +LACT1CAP94 GT; -LATA2.5D7 OP; +MUPI22OI7; -OMEG1CAP PO; -PIPE2.257 IV; -PROT946L GT; -RXVAN XX; +VIT500LI GT; -ZINC220C8 GT
--- NOTE | 2019-04-15 13:25 | NUR ---
BIB [facility] FROM [facility] 'WAS SUPPOSED TO BE DIALYZED TODAY BUT THEY SAID THE DIALYSIS SITE WAS INFECTED". TO ER BED 8, PATIENT WITH TRACH HOOKED TO VENTILATOR, RT AT BEDSIDE, VENT SETTINGS AT VT 500, 02 40%, RATE: 10, PEEP 5. HOOKED TO MONITOR, DR BECERRIL AT BEDSIDE FOR EVAL.
[2019-04-15] MEDS ORDERED: NAPH1POW3 GT (13:42)
[2019-04-15] MEDS ORDERED: LATA2.5D7 EACHEYE (13:42)
[2019-04-15] MEDS ORDERED: BLOO-668 IN (13:42)
--- NOTE | 2019-04-15 13:52 | NUR ---
CALLED [facility] [phone]
--- NOTE | 2019-04-15 13:59 | NUR ---
labs drawn by tech
--- NOTE | 2019-04-15 14:00 | NUR ---
RT NOTE PT PLACED ON VENT PER MD ORDER. PT HAS PORTEX 7 CUFFED TRACHEOSTOMY TUBE IN PLACE. CUFF INFLATED. TRACH TUBE MIDLINE AND SECURE. VENTILATOR SETTINGS ENDORSED BY TRANSPORT RT AC 10 500 40% +5. ALARMS SET PER PROTOCOL AND AUDIBLE. VENT PLUGGED IN TO RED OUTLET. AMBU BAG AT BED SIDE. NO DISTRESS NOTED. Addendum: 04/15/19 at 1403 by LILO RAMIREZ RT Amended: Links added.
--- NOTE | 2019-04-15 14:02 | NUR ---
emanations analysis technician at bedside
[2019-04-15 14:04] LABS: BASOPHILS % (AUTO) 0.5 % (0.0-2.0); HEMATOCRIT 31 % (33-45); HEMOGLOBIN 10.2 g/dL (11.5-14.8); LYMPHOCYTES # (AUTO) 1.3 /CMM (0.8-4.8); LYMPHOCYTES % (AUTO) 14.1 % (20.0-44.0); MEAN CORPUSCULAR HGB CONC 33 g/dl (31.0-36.0); MEAN CORPUSCULAR VOLUME 94 fL (82-100); MONOCYTES # (AUTO) 0.7 /CMM (0.1-1.30); MONOCYTES % (AUTO) 7.1 % (2.0-12.0); NEUTROPHILS # (AUTO) 6.9 /CMM (1.8-8.9); NEUTROPHILS % (AUTO) 74.3 % (43.0-81.0); PLATELET COUNT (AUTO) 320 /CMM (150-450); RED BLOOD CELL COUNT(AUTO) 3.32 MIL/uL (4.0-5.2); WHITE BLOOD COUNT (AUTO) 9.2 K/uL (4.3-11.0)
--- NOTE | 2019-04-15 14:23 | NUR ---
CALLED [facility] [phone]
[2019-04-15 14:32] LABS: ALANINE AMINOTRANSFERASE 20 U/L (12-78); ALBUMIN 2.9 g/dL (3.4-5.0); ALKALINE PHOSPHATASE 380 U/L (46-116); ASPARTATE AMINOTRANSFERASE 21 U/L (15-37); BILIRUBIN,DIRECT 0.3 mg/dL (0.0-0.2); BILIRUBIN,TOTAL 0.8 mg/dL (0.2-1.0); CALCIUM, SERUM 9.5 mg/dL (8.5-10.1); CARBON DIOXIDE 28 mmol/L (21-32); CHLORIDE 94 mmol/L (98-107); CREATININE 4.2 mg/dL (0.6-1.3); GLUCOSE 200 mg/dL (74-106); POTASSIUM 3.5 mmol/L (3.5-5.1); SODIUM SERUM 133 mmol/L (136-145); TOTAL PROTEIN, SERUM 8.3 g/dL (6.4-8.2); UREA NITROGEN, BLOOD 56 mg/dL (7-18)
[2019-04-15] MEDS ORDERED: CEFEPIME 1 GM in IV D5W 50 ML IV STA (14:48)
[2019-04-15] MEDS ORDERED: VANCOMYCIN 1 GM in IV D5W 250 ML IV STA (14:49)
--- NOTE | 2019-04-15 15:22 | NUR ---
GOT BED 321-1
--- NOTE | 2019-04-15 15:38 | NUR ---
US TECH AT BEDSIDE
--- NOTE | 2019-04-15 15:51 | NUR ---
REPORT GIVEN TO MARLINE OF TELE UNIT
[2019-04-15] MEDS ORDERED: HYDROCODONE/APAP 5/325MG 1 EACH TABLET PO PRN (17:00)
[2019-04-15] MEDS ORDERED: Medication Not On Formulary EA (Ondansetron Hcl (Zofran) 4 MG) GT PRN (17:00)
[2019-04-15] MEDS ORDERED: MAG HYDROX/AL HYDROX/SIMETH 30 ML UDC PO PRN (17:00)
[2019-04-15] MEDS ORDERED: ONDANSETRON HCL/PF 4 MG/2 ML VIAL IVP PRN (17:00)
[2019-04-15] MEDS ORDERED: ACETAMINOPHEN 325 MG TABLET PO PRN ×2 (17:00)
[2019-04-15] MEDS ORDERED: MAGNESIUM HYDROXIDE 30 ML UDC PO PRN (17:00)
[2019-04-15] MEDS ORDERED: MISCELLANEOUS MED 1 EA EA GT PRN (17:00)
[2019-04-15] MEDS ORDERED: DEXTROSE 50%-WATER 50 ML DISP.SYRIN IV PRN (17:00)
--- NOTE | 2019-04-15 17:15 | NUR ---
RN ADMITTING NOTES ADMITTED 58 YEARS OLD, FEMALE TO UNIT VIA GURNEY AT 1700 ACCOMPANIED BY Annika NURSE. PATIENT ORIENTED TO UNIT, ROOM AND STAFF. NOTED WITH TRACH, PATIENT IS VENT DEPENDENT. NO SIGNS OF DISTRESS NOTED AT THIS TIME. NOTED WITH G-TUBE. V/S TAKEN, STABLE AND RECORDED. PHOTOS OF SKIN ISSUES TAKEN AND FILED ON CHART. PATIENT IS NOTED WITH IV ACCESS, PATENT AND INTACT. SAFETY MEASURES INITIATED, BED PLACED IN LOW LOCKED POSITION WITH SIDE RAILS UP X3. CALL LIGHT PLACED WITHIN EASY REACH. WILL CONTINUE TO MONITOR.
[2019-04-15] MEDS ORDERED: BLOOD SUGAR DIAGNOSTIC 1 EACH STRIP VI SCH (17:30)
[2019-04-15] MEDS: BLOOD SUGAR DIAGNOSTIC 1 EACH STRIP IN SCH ×2 (18:32→23:06)
[2019-04-15] MEDS ORDERED: FEE PK DOSING 1 MIN EA MC ONE (18:38)
[2019-04-15] MEDS: NEPRO 1,000 ML BOTTLE GT PRN (18:51)
[2019-04-15] MEDS ORDERED: VANCOMYCIN 500 MG in IV D5W 100 ML IV PRN (19:00)
[2019-04-15] MEDS: INSULIN REGULAR, HUMAN 100 UNIT/ML 3 ML VIAL SQ PRN (19:02)
--- NOTE | 2019-04-15 19:05 | NUR ---
RN NOTES BS 204. GIVEN 6 UNITS OF INSULIN.
--- NOTE | 2019-04-15 19:05 | NUR ---
DIRECTOR OF GOLF NOTE RECEIVED PT IN STABLE CONDITION, NOTED TO BE ON VENT, TOLERATING SETTINGS WELL. NO SIGNS OF SOB OR DISTRESS, NO INDICATIONS OF PAIN. IV IN R WRIST IN PLACE, S/L. TELE MONITOR: SR 80. GTUBE FEEDING INFUSING, MINIMAL RESIDUAL NOTED. ALL CURRENT NEEDS ATTENDED TO. BED LOW, LOCKED, UPPER RAILS UP, AND CALL LIGHT WITHIN REACH. WILL CONT. TO MONITOR.
--- NOTE | 2019-04-15 19:29 | NUR ---
RN NOTES PATIENT IN BED RESTING COMFORTABLY IN MODERATE HIGH BACK REST. NONVERBAL, NOTED WITH TRACH AND VENT DEPENDENT. NOTED WITH G-TUBE WITH NEPHRO RUNNING AT 50ML/HR. IV ACCESS PATENT AND INTACT. SAFETY MEASURES IN PLACE, BED IN LOW LOCKED POSITION WITH SIDE RAILS UP X3. CALL LIGHT WITHIN EASY REACH. ENDORSED TO FARMWORKER NURSE FOR SHERRY.
[2019-04-15] MEDS ORDERED: ACETAMINOPHEN 650 MG/20.3 ML UDC GT PRN ×2 (19:30)
[2019-04-15] MEDS ORDERED: MAGNESIUM HYDROXIDE 30 ML UDC GT PRN (19:30)
[2019-04-15] MEDS ORDERED: HYDROCODONE/APAP 5/325MG 1 EACH TABLET GT PRN (19:30)
[2019-04-15] MEDS ORDERED: MAG HYDROX/AL HYDROX/SIMETH 30 ML UDC GT PRN (19:30)
[2019-04-15 20:00] VITALS: BP 143/66
[2019-04-15] MEDS ORDERED: DOCUSATE SODIUM 100 MG CAPSULE PO SCH (20:00)
[2019-04-15] MEDS: BRIMONIDINE TARTRATE OPHT SOLN 5 ML BOTTLE EACHEYE SCH (20:11)
[2019-04-15] MEDS: DOCUSATE SODIUM LIQ 100 MG/10 ML UDC GT SCH (20:11)
[2019-04-15] MEDS: MIDODRINE HCL (5MG) 5 MG TABLET GT SCH (20:12)
--- NOTE | 2019-04-15 20:21 | NUR ---
PT RCVD CARIE'D ON MECHANICAL VENT WITH CHARTED SETTINGS. SX DONE. PT TRACH IS PATENT AND SECURE. VENT ALARMS APPEAR TO BE FUNCTIONING PROPERLY. VENT PLUGGED INTO RED OUTLET. AMBU BAG AT BEDSIDE. NO SOB NOTED. Addendum: 04/15/19 at 2020 by CELINA SHORT RT Amended: Links added.
[2019-04-15] MEDS: LEVETIRACETAM SOL (5 ML) 100 MG/ML UDC GT SCH (21:13)
[2019-04-15] MEDS: CHLORHEXIDINE GLUCONATE 15 ML UDC MM SCH (21:13)
[2019-04-15] MEDS: LATANOPROST EYE DROP 0.005% 2.5 ML BOTTLE EACHEYE SCH (21:14)
[2019-04-15] MEDS: INSULIN GLARGINE, 100 UNIT/ML CARTRIDGE SQ SCH (21:25)
[2019-04-15] MEDS: *INSULIN REGULAR(HUMULIN R)HUM 100 UNIT/ML VIAL SQ PRN (23:07)
[2019-04-16] VITALS: BP 150/67
[2019-04-16 04:00] VITALS: BP 148/61
[2019-04-16] MEDS: BLOOD SUGAR DIAGNOSTIC 1 EACH STRIP IN SCH ×4 (05:17→23:46)
[2019-04-16] MEDS: INSULIN REGULAR, HUMAN 100 UNIT/ML 3 ML VIAL SQ PRN ×3 (05:18→18:35)
--- NOTE | 2019-04-16 06:18 | NUR ---
CLAIM AGENT NOTE PT REMAINS IN STABLE CONDITION, NOTED TO BE ON VENT, TOLERATING SETTINGS WELL. NO SIGNS OF SOB OR DISTRESS, NO INDICATIONS OF PAIN. IV IN R WRIST IN PLACE, S/L. TELE MONITOR: SR 72. GTUBE FEEDING INFUSING, MINIMAL RESIDUAL NOTED. ALL CURRENT NEEDS ATTENDED TO. BED LOW, LOCKED, UPPER RAILS UP, AND CALL LIGHT WITHIN REACH. WILL CONT. TO MONITOR AND ENDORSE TO NEXT SHIFT FOR SHERRY.
[2019-04-16 06:44] LABS: BASOPHILS % (AUTO) 0.6 % (0.0-2.0); EOSINOPHILS % (AUTO) 5.9 % (0.0-6.0); HEMATOCRIT 30 % (33-45); HEMOGLOBIN 10.1 g/dL (11.5-14.8); LYMPHOCYTES # (AUTO) 1.2 /CMM (0.8-4.8); LYMPHOCYTES % (AUTO) 17.8 % (20.0-44.0); MEAN CORPUSCULAR HGB CONC 34 g/dl (31.0-36.0); MEAN CORPUSCULAR VOLUME 93 fL (82-100); MONOCYTES # (AUTO) 0.5 /CMM (0.1-1.30); MONOCYTES % (AUTO) 7.7 % (2.0-12.0); NEUTROPHILS # (AUTO) 4.6 /CMM (1.8-8.9); PLATELET COUNT (AUTO) 295 /CMM (150-450); RED BLOOD CELL COUNT(AUTO) 3.23 MIL/uL (4.0-5.2); WHITE BLOOD COUNT (AUTO) 6.7 K/uL (4.3-11.0)
[2019-04-16 07:17] LABS: CALCIUM, SERUM 9.3 mg/dL (8.5-10.1); CREATININE 5.1 mg/dL (0.6-1.3); MAGNESIUM 2.2 mg/dL (1.8-2.4); PHOSPHORUS 3.4 mg/dL (2.5-4.9); POTASSIUM 3.2 mmol/L (3.5-5.1)
[2019-04-16 08:00] VITALS: BP 129/51
--- NOTE | 2019-04-16 08:20 | NUR ---
MS RN RECEIVED ON BED, NONVERBAL,VENT DEPENDENT PATIENT , ON HD, NO SOB NOTED,G TUBE INTACT RUNNING AT50ML,TOLERATED WELL. NO DISTRESS NOTED,ALL NEEDS ATTENDED.
--- NOTE | 2019-04-16 08:31 | NUR ---
RT PT RECEIVED ON CURRENT VENT SETTINGS. PT TRACHED WITH PORTEX SIZE 7. VENT PLUGGED IN TO RED OUTLET. HOB AT 30 DEGREES. AMBU BAG AT HEAD OF BED. SPARE TRACH AT BEDSIDE. MODERATE, GALDAMEZ, THICK SECRETIONS SUCTIONED VIA TRACH. PT IN NO APPARENT RESPIRATORY DISTRESS. WILL CONTINUE TO MONITOR. Addendum: 04/16/19 at 1550 by VALDO DAY RT Amended: Links added.
[2019-04-16] MEDS ORDERED: FAMOTIDINE (20 MG) 20 MG TABLET GT SCH (09:00)
--- NOTE | 2019-04-16 09:50 | NUR ---
MS RN DUE MEDS GIVEN, VIA G TUBE, TOLERATED WELL W/ NO RESIDUAL,REPOSITIONED FOR COMFORT,NO DISTRESS NOTED.
[2019-04-16] MEDS: CHLORHEXIDINE GLUCONATE 15 ML UDC MM SCH ×2 (09:53→22:06)
[2019-04-16] MEDS: DOCUSATE SODIUM LIQ 100 MG/10 ML UDC GT SCH ×2 (09:53→18:16)
[2019-04-16] MEDS: NEUTRA PHOS 1 POWD.PACKET GT SCH (09:54)
[2019-04-16] MEDS: LEVETIRACETAM SOL (5 ML) 100 MG/ML UDC GT SCH ×2 (09:54→21:48)
[2019-04-16] MEDS: MIDODRINE HCL (5MG) 5 MG TABLET GT SCH ×3 (09:55→18:16)
--- NOTE | 2019-04-16 09:55 | NUR ---
MS LAWRENCE WAS SEEN BY RACHID LOZANO, W/ ORDERS MADE AND CARRIED OUT.
--- NOTE | 2019-04-16 10:00 | NUR ---
ms rn cleaned patient,all needs attended.
[2019-04-16] MEDS: BRIMONIDINE TARTRATE OPHT SOLN 5 ML BOTTLE EACHEYE SCH ×3 (10:16→18:15)
[2019-04-16 12:00] VITALS: BP 135/59
--- NOTE | 2019-04-16 13:00 | NUR ---
MS RN STILL WAITING FOR HD RN TO DO DIALYSIS.
--- NOTE | 2019-04-16 15:40 | NUR ---
ms rn started on hd. tolerated.
--- NOTE | 2019-04-16 18:02 | NUR ---
MS RN STILL ON DIALYSIS,TOLERATED WELL.
--- NOTE | 2019-04-16 18:45 | NUR ---
ms rn just finished hd, tolerated well. w/ 2500ml output, due meds given via g tube.
[2019-04-16 20:00] VITALS: BP 141/90
[2019-04-16] MEDS: NEPRO 1,000 ML BOTTLE GT PRN (21:47)
[2019-04-16] MEDS: LATANOPROST EYE DROP 0.005% 2.5 ML BOTTLE EACHEYE SCH (21:48)
--- NOTE | 2019-04-16 22:25 | NUR ---
JOINT CREASER NOTES RECEIVED PATIENT ASLEEP IN BED WITH NO DISTRESS NOTE. CALL LIGHT WITHIN REACH. TRACH INTACT AND PATENT WITH VENT SETTING ORDERED. GTF ON AND RUNNING @50ML/HR. AV SHUNT IN TORI INTACT WITH (+) BRUIT AND THRILL. PERIPHERAL LINE INTACT AND PATENT. NO FACIAL GRIMACING OR GROANING TO INDICATE PAIN OR DISCOMFORT. BED IN LOW LOCK SETTING. ALL BELONGINGS KEPT NEAR BEDSIDE. WILL CONTINUE TO MONITOR.
[2019-04-16] MEDS: INSULIN GLARGINE, 100 UNIT/ML CARTRIDGE SQ SCH (23:50)
[2019-04-16] MEDS: *INSULIN REGULAR(HUMULIN R)HUM 100 UNIT/ML VIAL SQ PRN (23:52)
[2019-04-17] VITALS (7 sets, daily range): BP systolic 124–152; BP diastolic 54–85
[2019-04-17] MEDS: INSULIN REGULAR, HUMAN 100 UNIT/ML 3 ML VIAL SQ PRN ×3 (05:31→17:41)
[2019-04-17] MEDS: BLOOD SUGAR DIAGNOSTIC 1 EACH STRIP IN SCH ×3 (05:32→17:41)
--- NOTE | 2019-04-17 06:50 | NUR ---
COMPOUND MACHINE OPERATOR NOTES PATIENT ASLEEP IN BED WITH NO DISTRESS NOTED. CALL LIGHT WITHIN REACH. TRACH INTACT/PATENT WITH VENT SETTINGS ORDERED. NO FACIAL GRIMACING OR GROANING TO INDICATE PAIN OR DISCOMFORT. GTF ON AND RUNNING AT 50ML/HR AND TOLERATING WELL. ALL DUE MEDS GIVEN ORDERED WITH NO ASE NOTED. PERIPHERAL LINE INTACT AND PATENT. TORI AV SHUNT INTACT WITH (+) BRUIT AND THRILL. CONTACT ISOLATION OBSERVED AND MAINTAINED AT ALL TIMES. ALL BELONGINGS KEPT NEAR BEDSIDE. BED IN LOW LOCK SETTING. WILL ENDORSE TO ONCOMING SHIFT.
--- NOTE | 2019-04-17 07:31 | NUR ---
BRAILLE AND TALKING BOOKS CLERK OPENING NOTES PATIENT RECEIVED IN BED AWAKE IN NO ACUTE SIGNS OF DISTRESS. HOB ELEVATED. RESPONSIVE TO TACTILE STIMULI, NO GRIMACING OR MOANING NOTED AT THIS TIME. CONTACT PRECAUTIONS IN PLACE. DRESSING ON TORI AV FISTULA SITE C/D/I. ON MECH VENT PRESCRIBED SETTINGS, TOLERATING SETTINGS WELL WITH NO SOB NOTED. ON TELEMONITORING WITH CURRENT READING OF SR WITH HR IN THE 70'S, NO CARDIAC DISTRESS NOTED AT THIS TIME. IV ACCESS ON RIGHT WRIST G#20 INTACT AND PATENT. G-TUBE IN PLACE AND PATENT WITH FEEDING OF NEPRO @ 50ML/HR IN PROGRESS, TOLERATING WELL. ASPIRATION PRECAUTIONS MAINTAINED. SAFETY MEASURES IN PLACE:BED IN LOW LOCKED POSITION WITH SIDE RAILS UP X3. CALL LIGHT WITHIN REACH. WILL CONTINUE TO MONITOR PT ACCORDINGLY.
[2019-04-17 08:57] LABS: BASOPHILS % (AUTO) 0.4 % (0.0-2.0); EOSINOPHILS % (AUTO) 3.2 % (0.0-6.0); HEMATOCRIT 30 % (33-45); LYMPHOCYTES # (AUTO) 1.1 /CMM (0.8-4.8); LYMPHOCYTES % (AUTO) 11.2 % (20.0-44.0); MEAN CORPUSCULAR HGB CONC 33 g/dl (31.0-36.0); MEAN CORPUSCULAR VOLUME 94 fL (82-100); MONOCYTES # (AUTO) 0.6 /CMM (0.1-1.30); MONOCYTES % (AUTO) 6.1 % (2.0-12.0); NEUTROPHILS # (AUTO) 7.8 /CMM (1.8-8.9); NEUTROPHILS % (AUTO) 79.1 % (43.0-81.0); PLATELET COUNT (AUTO) 279 /CMM (150-450); RED BLOOD CELL COUNT(AUTO) 3.18 MIL/uL (4.0-5.2); WHITE BLOOD COUNT (AUTO) 9.9 K/uL (4.3-11.0)
[2019-04-17 09:08] LABS: CALCIUM, SERUM 9.5 mg/dL (8.5-10.1); CREATININE 3.6 mg/dL (0.6-1.3); MAGNESIUM 2.3 mg/dL (1.8-2.4); PHOSPHORUS 2.5 mg/dL (2.5-4.9); POTASSIUM 3.6 mmol/L (3.5-5.1)
[2019-04-17] MEDS: LEVETIRACETAM SOL (5 ML) 100 MG/ML UDC GT SCH ×2 (09:13→21:18)
[2019-04-17] MEDS: CHLORHEXIDINE GLUCONATE 15 ML UDC MM SCH ×2 (09:13→21:18)
[2019-04-17] MEDS: NEUTRA PHOS 1 POWD.PACKET GT SCH (09:13)
[2019-04-17] MEDS: DOCUSATE SODIUM LIQ 100 MG/10 ML UDC GT SCH ×2 (09:13→16:27)
[2019-04-17] MEDS: MIDODRINE HCL (5MG) 5 MG TABLET GT SCH ×3 (09:14→16:27)
[2019-04-17] MEDS: BRIMONIDINE TARTRATE OPHT SOLN 5 ML BOTTLE EACHEYE SCH ×3 (09:17→16:28)
[2019-04-17] MEDS: Z GUARD REMEDY 2 OZ OINT TP PRN (16:04)
--- NOTE | 2019-04-17 16:47 | NUR ---
RN NOTES PATIENT FEELING ANXIOUS DUE TO SOME MIDSTERNAL PAIN. PATIENT OFFERED PAIN MEDICATION NORCO OR MORPHINE BUT PATIENT REFUSED. PATIENT ASKED SOMETHING FOR ANXIETY. LORAZEPAM 0.5MG/.25ML IVP WAS ADMINISTERED AT 1636. WILL CONTINUE TO MONITOR AND REASSESS PATIENT.
--- NOTE | 2019-04-17 18:10 | NUR ---
RT END OF THE SHIFT NOTE. PT. 58 Y OLD FEMALE REC/ @ 0700 AM PT. TRACH'D PORTEX # 7 ON VENT WITH NOTED SETTINGS, ALARMS ARE SET AND FUNCTIONAL, EQUAL CHEST RISE NOTED. B/S BILATERALLY RALES AND SUX'S FOR MINIMAL AMT. OF WHITE SECRETIONS, VENT PLUGGED INTO RED OUT LET, HME CHANGED, DISPATCH CLERK DONE, REMAIN STABLE AND NO CHANGES T/O DAY. AMBU BAG REMAIN AT THE BEDSIDE. PT. BERE. VENT WELL AND NO COMPLICATION NOTED. REPORT WILL PASS TO PM SHIFT. Addendum: 04/17/19 at 1810 by YVONNE HARPER RT Amended: Links added.
--- NOTE | 2019-04-17 18:40 | NUR ---
STABLE MANAGER CLOSING NOTES PATIENT IN BED LYING AT MODERATE HIGH BACKREST POSITION. OBTUNDED AND OPEN EYES, NO GRIMACING OR MOANING NOTED. TORI AV FISTULA IN PLACE WITH +BRUIT AND THRILL NOTED WITH DRESSING AT SITE C/D/I. MAINTAINED ON [facility] VENTILATOR ORDERED, TOLERATING SETTINGS WELL WITH NO SOB NOTED THROUGHOUT THE DAY, SP02 100%@ THIS TIME. ON TELEMONITORING WITH CURRENT READING OF SR WITH HR IN THE 70'S, NO CARDIAC DISTRESS NOTED. IV ACCESS ON RIGHT WRIST G#20 INTACT, PATENT AND FLUSHES WELL. G-TUBE IN PLACE AND PATENT, FEEDING OF NEPRO @ 50ML/HR ON HOLD AND WILL RESTART @ 10PM. ASPIRATION PRECAUTIONS MAINTAINED. PT TURNED AND REPOSITIONED Q 2HRS AND PRN. KEPT CLEAN, DRY AND COMFORTABLE AT ALL TIMES. ALL NEEDS AND CARE PROVIDED WELL. SAFETY MEASURES KEPT IN PLACE: BED IN LOWEST LOCKED POSITION WITH SIDE RAILS UP X3. CALL LIGHT WITHIN REACH. WILL ENDORSE TO BUDGET COUNSELOR NURSE FOR SHERRY.
--- NOTE | 2019-04-17 19:03 | NUR ---
ANALYSIS DIRECTOR OPENING NOTES RECEIVED PATIENT IN BED, OBTUNDED, OPENS EYES, RESPIRATIONS EVEN AND UNLABORED WITH EQUAL RISE AND FALL OF CHEST, APPEARS COMFORTABLE AT THIS TIME, NO FACIAL GRIMACING PRESENT, ON MECHANICAL VENTILATION, WORKING PROPERLY, PLUGGED INTO RED EMERGENCY PLUG, ALARMS AUDIBLE AND WORKING WELL, AMBU BAG AT BEDSIDE, SUCTION EQUIPMENT IN PLACE, TRACH AND COLLAR IN PLACE AND SECURED ,ON CARDIAC TELE MONITOR SR 67, LEFT UPPER ARM HD SITE BRUIT PRESENT, HEAD OF BED ELEVATED FOR ASPIRATION PRECAUTIONS, GTUBE IN PLACE, PROPER PLACEMENT, NO RESIDUALS NOTED AT THIS TIME UPON ASSESSING, IV SITE TO RIGHT WRIST REMOVED DUE TO LEAKING, NEW IV SITE PLACE TO RIGHT FOREARM #22 G. NO REDNESS, NO INFILTRATION.SAFETY PRECAUTIONS IN PLACE, LOW BED AND LOCKED, ORIENTED TO STAFF AND CALL LIGHT AND KEPT WITHIN REACH, ALL NEEDS ATTENDED AT THIS TIME WILL CONTINUE TO MONITOR AND ATTEND TO NEEDS.
[2019-04-17] MEDS: LATANOPROST EYE DROP 0.005% 2.5 ML BOTTLE EACHEYE SCH (21:19)
[2019-04-17] MEDS: INSULIN GLARGINE, 100 UNIT/ML CARTRIDGE SQ SCH (21:23)
--- NOTE | 2019-04-17 22:00 | NUR ---
WOOD BORER NOTES STARTED GTUBE FEEDING 2199
[2019-04-18] VITALS (7 sets, daily range): BP systolic 137–166; BP diastolic 64–85
[2019-04-18] MEDS: BLOOD SUGAR DIAGNOSTIC 1 EACH STRIP IN SCH ×5 (00:03→23:47)
[2019-04-18] MEDS: *INSULIN REGULAR(HUMULIN R)HUM 100 UNIT/ML VIAL SQ PRN ×2 (00:05→23:49)
[2019-04-18] MEDS: NEPRO 1,000 ML BOTTLE GT PRN (01:03)
[2019-04-18] MEDS: INSULIN REGULAR, HUMAN 100 UNIT/ML 3 ML VIAL SQ PRN ×3 (05:21→17:34)
--- NOTE | 2019-04-18 06:20 | NUR ---
CRIMINAL RECORDS TECHNICIAN CLOSING NOTES PATIENT IN BED, OBTUNDED, OPENS EYES, RESPIRATIONS EVEN AND UNLABORED WITH EQUAL RISE AND FALL OF CHEST, APPEARS COMFORTABLE AT THIS TIME, NO FACIAL GRIMACING PRESENT, ON MECHANICAL VENTILATION, WORKING PROPERLY, PLUGGED INTO RED EMERGENCY PLUG, ALARMS AUDIBLE AND WORKING WELL, AMBU BAG AT BEDSIDE, SUCTION EQUIPMENT IN PLACE, TRACH AND COLLAR IN PLACE AND SECURED ,ON CARDIAC TELE MONITOR SR 74, LEFT UPPER ARM HD SITE BRUIT PRESENT, HEAD OF BED ELEVATED FOR ASPIRATION PRECAUTIONS, GTUBE IN PLACE, PROPER PLACEMENT, NO RESIDUALS NOTED AT THIS TIME UPON ASSESSING, IV SITE TO RIGHT FOREARM #22 . NO REDNESS, NO INFILTRATION.SAFETY PRECAUTIONS IN PLACE, LOW BED AND LOCKED, CALL LIGHT KEPT WITHIN REACH, ALL NEEDS ATTENDED AT THIS TIME WILL CONTINUE TO MONITOR AND ATTEND TO NEEDS AND ENDORSE TO NEXT SHIFT, NO SEIZURE ACTIVITY. REPOSITIONED AND OFFLOADED AFFECTED WOUND SITES. REMAINS COMFORTABLE.
[2019-04-18 07:01] LABS: BASOPHILS % (AUTO) 0.8 % (0.0-2.0); EOSINOPHILS % (AUTO) 7.6 % (0.0-6.0); HEMATOCRIT 30 % (33-45); HEMOGLOBIN 9.7 g/dL (11.5-14.8); LYMPHOCYTES # (AUTO) 1.4 /CMM (0.8-4.8); LYMPHOCYTES % (AUTO) 23.1 % (20.0-44.0); MEAN CORPUSCULAR HGB CONC 33 g/dl (31.0-36.0); MEAN CORPUSCULAR VOLUME 94 fL (82-100); MONOCYTES # (AUTO) 0.4 /CMM (0.1-1.30); MONOCYTES % (AUTO) 7.2 % (2.0-12.0); NEUTROPHILS # (AUTO) 3.7 /CMM (1.8-8.9); NEUTROPHILS % (AUTO) 61.3 % (43.0-81.0); PLATELET COUNT (AUTO) 252 /CMM (150-450); RED BLOOD CELL COUNT(AUTO) 3.15 MIL/uL (4.0-5.2)
[2019-04-18 07:06] LABS: CALCIUM, SERUM 9.6 mg/dL (8.5-10.1); CREATININE 4.7 mg/dL (0.6-1.3); MAGNESIUM 2.5 mg/dL (1.8-2.4); PHOSPHORUS 2.7 mg/dL (2.5-4.9); POTASSIUM 3.6 mmol/L (3.5-5.1)
--- NOTE | 2019-04-18 07:35 | NUR ---
TECH ED TEACHER OPENING NOTES RECEIVED PATIENT IN BED, OBTUNDED, OPENS EYES, RESPIRATIONS EVEN AND UNLABORED WITH EQUAL RISE AND FALL OF CHEST, APPEARS COMFORTABLE AT THIS TIME, NO FACIAL GRIMACING PRESENT, ON MECHANICAL VENTILATION, WORKING PROPERLY, PLUGGED INTO RED EMERGENCY PLUG, ALARMS AUDIBLE AND WORKING WELL, AMBU BAG AT BEDSIDE, SUCTION EQUIPMENT IN PLACE, TRACH AND COLLAR IN PLACE AND SECURED ,ON CARDIAC TELE MONITOR WITH CURRENT READING OF SR WITH HR OF 70'S, LEFT UPPER ARM HD SITE BRUIT PRESENT, HEAD OF BED ELEVATED FOR ASPIRATION PRECAUTIONS, GTUBE IN PLACE, PROPER PLACEMENT, NO RESIDUALS NOTED AT THIS TIME UPON ASSESSING, IV SITE TO RIGHT FOREARM #22 . PATENT AND INTACT. SAFETY PRECAUTIONS IN PLACE, LOW BED AND LOCKED WITH SIDE RAILS UP X3, CALL LIGHT WITHIN REACH. WILL CONTINUE TO MONITOR.
[2019-04-18] MEDS: DOCUSATE SODIUM LIQ 100 MG/10 ML UDC GT SCH ×2 (08:43→17:00)
[2019-04-18] MEDS: BRIMONIDINE TARTRATE OPHT SOLN 5 ML BOTTLE EACHEYE SCH ×3 (08:43→17:00)
[2019-04-18] MEDS: LEVETIRACETAM SOL (5 ML) 100 MG/ML UDC GT SCH ×2 (08:43→20:49)
[2019-04-18] MEDS: CHLORHEXIDINE GLUCONATE 15 ML UDC MM SCH ×2 (08:43→20:49)
[2019-04-18] MEDS: NEUTRA PHOS 1 POWD.PACKET GT SCH (08:44)
[2019-04-18] MEDS: MIDODRINE HCL (5MG) 5 MG TABLET GT SCH ×3 (08:44→17:00)
[2019-04-18] MEDS: Z GUARD REMEDY 2 OZ OINT TP PRN ×2 (12:48→20:50)
[2019-04-18] MEDS: Z GUARD REMEDY 2 OZ OINT TP SCH ×2 (12:51→20:51)
--- NOTE | 2019-04-18 17:00 | NUR ---
RN NOTES DIALYSIS NURSE IS ON UNIT, PATIENT IS TO BE DIALYZED. WILL CONTINUE TO MONITOR.
--- NOTE | 2019-04-18 18:09 | NUR ---
RT RECD PT TRACHED INTACT & SECURED ON ON MECH VENT BERE ORDERED SETTING ALARMS ON AND AUDIBLE BAG AND MASK AT HOB NO RESP DISTRESS THROUGHOUT SHIFT
--- NOTE | 2019-04-18 18:33 | NUR ---
MASTER COASTWISE YACHT CLOSING NOTES PATIENT IN BED, OBTUNDED, OPENS EYES. NO SIGNS OF ANY DISTRESS NOTED THROUGHOUT THE SHIFT. REMAINS ON MECHANICAL VENTILATION, WORKING PROPERLY, PLUGGED INTO RED EMERGENCY PLUG, ALARMS AUDIBLE AND WORKING WELL, AMBU BAG AT BEDSIDE, SUCTION EQUIPMENT IN PLACE, TRACH AND COLLAR IN PLACE AND SECURED ,ON CARDIAC TELE MONITOR WITH CURRENT READING OF SR WITH HR OF 70'S, S/P HD WITH 2L OUTPUT ON LEFT UPPER ARM. HEAD OF BED ELEVATED FOR ASPIRATION PRECAUTIONS, GTUBE IN PLACE, PROPER PLACEMENT, NO RESIDUALS NOTED, IV SITE TO RIGHT FOREARM #22 . PATENT AND INTACT. SAFETY PRECAUTIONS IN PLACE, LOW BED AND LOCKED WITH SIDE RAILS UP X3, CALL LIGHT WITHIN REACH. WILL ENDORSE TO TELEPHONE SWITCHBOARD OPERATOR NURSE FOR SHERRY.
--- NOTE | 2019-04-18 19:40 | NUR ---
AUTOMOTIVE DESIGN DRAFTER OPENING NOTES RECEIVED PATIENT FROM MORNING SHIFT, OBTUNDED WITH EYES OPEN. NONVERBAL WITH TRACHEOSTOMY PATENT AND CONNECTED TO MECHANICAL VENTILATION. BREATHING REGULAR AND UNLABORED WITH RHONCHI BREATHE SOUNDS HEARD ON BOTH LUNG FARIAS. LEFT UPPER ARM AV FISTULA NOTED WITH BRUIT AND THRILL; WITH OPEN WOUNDS, DRESSING INTACT, CLEAN AND DRY. RIGHT FOREARM G22 IV LINE INTACT AND PATENT, FLUSHING WELL WITH NO BLEEDING OR S/S OF INFECTION/INFILTRATION OBSERVED. GTUBE INTACT AND PATENT WITH NO RESIDUAL ASPIRATED. NO S/S OF PAIN/DISCOMFORT SEEN. BED LOW AND LOCKED ON SEMI FOWLERS POSITION. CALL LIGHT IN REACH. WILL CONTINUE TO MONITOR.
[2019-04-18] MEDS ORDERED: VANCOMYCIN 1 GM in IV D5W 250 ML IV ONE (20:00)
[2019-04-18] MEDS: LATANOPROST EYE DROP 0.005% 2.5 ML BOTTLE EACHEYE SCH (21:31)
[2019-04-18] MEDS: INSULIN GLARGINE, 100 UNIT/ML CARTRIDGE SQ SCH (21:32)
--- NOTE | 2019-04-18 21:40 | NUR ---
C4 PLANNER NOTES BS 171mg/dl, 46UNITS LANTUS GIVEN SQ. GTUBE FEEDING ON. WILL CONTINUE TO MONITOR FOR S/S OF HYPO/HYPERGLYCEMIA.
[2019-04-19] VITALS: BP 125/67
[2019-04-19] MEDS ORDERED: VANCOMYCIN 1 GM in IV D5W 250 ML IV ONE ×2
--- NOTE | 2019-04-19 | NUR ---
THERMAL INTELLIGENCE ANALYST NOTES BS 169mg/dl, 3UNITS REGULAR INSULIN GIVEN SQ. GTUBE FEEDING ON, TOLERATING WELL. WILL CONTINUE TO MONITOR FOR S/S OF HYPO/HYPERGLYCEMIA.
[2019-04-19 04:00] VITALS: BP 159/64
[2019-04-19] MEDS ORDERED: VANCOMYCIN 500 MG in IV D5W 100 ML IV PRN (06:00)
[2019-04-19] MEDS: BLOOD SUGAR DIAGNOSTIC 1 EACH STRIP IN SCH ×2 (06:11→14:36)
[2019-04-19] MEDS: INSULIN REGULAR, HUMAN 100 UNIT/ML 3 ML VIAL SQ PRN ×2 (06:13→14:38)
--- NOTE | 2019-04-19 06:40 | NUR ---
SHIPPING AND RECEIVING SPECIALIST CLOSING NOTES PATIENT IN BED OBTUNDED WITH EYES OPEN. NONVERBAL WITH TRACHEOSTOMY PATENT AND CONNECTED TO MECHANICAL VENTILATION. LEFT UPPER ARM AV FISTULA PATENT WITH OPEN WOUNDS, DRESSING INTACT, CLEAN AND DRY. RIGHT FOREARM G22 IV LINE INTACT AND PATENT, FLUSHING WELL WITH NO BLEEDING OR S/S OF INFECTION/INFILTRATION OBSERVED. GTUBE INTACT AND PATENT WITH NO RESIDUAL ASPIRATED. GTUBE FEEDING TOLERATING WELL WITH NO EPISODE OF NAUSEA/VOMITING OBSERVED THE WHOLE SHIFT. MAINTAINED ON CARDIAC MONITORING WITH NSR AT 69bpm. NO S/S OF PAIN/DISCOMFORT SEEN. BED LOW AND LOCKED ON SEMI FOWLERS POSITION. CALL LIGHT IN REACH. WILL ENDORSE TO MORNING SHIFT FOR SHERRY.
--- NOTE | 2019-04-19 07:45 | NUR ---
MS RN RECEIVED ON BED, NON VERBAL PATIENT,VENT DEPENDENT, GTUBE FEEDING ON, TOLERATED WELL W/O RESIDUAL. REPOSITIONED FOR COMFORT,ALL NEEDS ATTENDED.
[2019-04-19 08:00] VITALS: BP 100/52
[2019-04-19] MEDS: BRIMONIDINE TARTRATE OPHT SOLN 5 ML BOTTLE EACHEYE SCH ×2 (09:00→14:37)
[2019-04-19] MEDS: MIDODRINE HCL (5MG) 5 MG TABLET GT SCH ×2 (09:00→13:00)
[2019-04-19] MEDS: LEVETIRACETAM SOL (5 ML) 100 MG/ML UDC GT SCH (09:16)
[2019-04-19] MEDS: DOCUSATE SODIUM LIQ 100 MG/10 ML UDC GT SCH (09:16)
[2019-04-19] MEDS: CHLORHEXIDINE GLUCONATE 15 ML UDC MM SCH (09:16)
[2019-04-19] MEDS: NEUTRA PHOS 1 POWD.PACKET GT SCH (09:16)
--- NOTE | 2019-04-19 09:20 | NUR ---
ms rn due meds given, tolerated well.
[2019-04-19 12:00] VITALS: BP 140/88
--- NOTE | 2019-04-19 12:00 | NUR ---
ms rn am care done,all needs attended.
[2019-04-19] MEDS ORDERED: VANC500F2 IV (12:44)
[2019-04-19] MEDS ORDERED: RXVAN XX (12:44)
--- NOTE | 2019-04-19 14:00 | NUR ---
ms rn patient will be discharge today ,back to facility.
--- NOTE | 2019-04-19 14:45 | NUR ---
ms rn patient ready to discharge, report given to pam suazo.
[2019-04-19 16:00] VITALS: BP 131/90
--- NOTE | 2019-04-19 16:45 | NUR ---
ms rn patient discharge via ambulance,all needs attended.
== END 2019-04-19 17:00 | DRG 314 ==
LOC: ER 13:14 → TELE 15:37
PROVIDERS: ADMIT Internal Medicine; ATTEND Nurse Practitioner Acute Care
PROC: 5A1955Z Respiratory Ventilation, Greater than 96 Consecutive Hours (ICD-10-PCS; 2019-04-15)
PROC: 5A1D70Z Performance of Urinary Filtration, Intermittent, Less than 6 Hours Per Day (ICD-10-PCS; 2019-04-16)
PROC: 5A1D70Z Performance of Urinary Filtration, Intermittent, Less than 6 Hours Per Day (ICD-10-PCS; principal; 2019-04-18)
DX: T82.7XXA Infection and inflammatory reaction due to other cardiac and vascular devices, implants and grafts, initial encounter (principal); R53.2 Functional quadriplegia; N18.6 End stage renal disease; L03.114 Cellulitis of left upper limb; I12.0 Hypertensive chronic kidney disease with stage 5 chronic kidney disease or end stage renal disease; Z99.11 Dependence on respirator [ventilator] status; J96.10 Chronic respiratory failure, unspecified whether with hypoxia or hypercapnia; G93.1 Anoxic brain damage, not elsewhere classified; G93.40 Encephalopathy, unspecified; D68.59 Other primary thrombophilia; E87.1 Hypo-osmolality and hyponatremia; J98.11 Atelectasis; J90 Pleural effusion, not elsewhere classified; Y83.9 Surgical procedure, unspecified as the cause of abnormal reaction of the patient, or of later complication, without mention of misadventure at the time of the procedure; Y92.89 Other specified places as the place of occurrence of the external cause; Z99.2 Dependence on renal dialysis; Z93.0 Tracheostomy status; Z93.1 Gastrostomy status; G40.909 Epilepsy, unspecified, not intractable, without status epilepticus; R13.10 Dysphagia, unspecified; D63.1 Anemia in chronic kidney disease; F09 Unspecified mental disorder due to known physiological condition; I25.10 Atherosclerotic heart disease of native coronary artery without angina pectoris; E78.5 Hyperlipidemia, unspecified; E87.70 Fluid overload, unspecified; E87.6 Hypokalemia; E11.22 Type 2 diabetes mellitus with diabetic chronic kidney disease; L98.8 Other specified disorders of the skin and subcutaneous tissue; M24.50 Contracture, unspecified joint
CPT/HCPCS: 31720; 36415; 71045-TC; 80048-TC; 80076-TC; 80202-TC; 82962-TC; 83605-TC; 83735-TC; 84100-TC; 84484-TC; 85025-TC; 85730-TC; 86706; 87040-TC; 87081-TC; 87340; 90935-TC; 93971-TC; 94002-TC; 94003-TC; 94760-TC; 94762-TC; 94799-TC; 99082-TC; A4623; A6403; G0378; J0692; J1815; J1953; J3370; J7050; J7060

== ENCOUNTER 2019-05-06 16:18 | Inpatient (IN) | payer MEDICARE, MEDICAID ==
[~2019-05-06] VITALS: Ht 165.1 cm; Wt 71.7 kg
[~2019-05-06 16:18] MED LIST changes: -ALBU2.5V38 IH; -ALLA266C2 TP; +BLOO-668 IN; -CHOL4PAC9 GT; +LATA2.5D7 EACHEYE; -MUPI22OI7; +NAPH1POW3 GT; +RXVAN XX; +VANC500F2 IV
--- NOTE | 2019-05-06 16:30 | NUR ---
BIB [facility] FOR BLEEDING AV FISTULA. PATIENT OBTUNDED, TRACHE, MECHANICAL VENT DEPENDENT. AV SHUNT NOTED WITH STOPPER. ATTACHED TO THE KITCHEN MECHANIC.
--- NOTE | 2019-05-06 16:36 | NUR ---
RT NOTE PT PLACED ON VENT PER MD ORDER. SETTINGS ENDORSED BY TRANSPORT RT AC 10 500 40% +5. ALARMS SET PER PROTOCOL AND AUDIBLE. VENT PLUGGED IN TO RED OUTLET. AMBU BAG AT BED SIDE. NO DISTRESS NOTED. PT HAS PORTEX 7 CUFFED [address]ACHE[address]OMY TUBE IN PLACE. CUFF INFLATED. TRACH TUBE MIDLINE AND SECURE. Addendum: 05/06/19 at 1640 by LILO RAMIREZ RT Amended: Links added.
--- NOTE | 2019-05-06 16:43 | NUR ---
VASCULAR SURGERY DR. PEDRAZA [phone] OUT OF TOWN
--- NOTE | 2019-05-06 16:45 | NUR ---
DR. DAVIS ASSESSED TORI AV SHUNT, BLEEDING HAS STOPPED.
[2019-05-06 17:13] LABS: BASOPHILS # (AUTO) 0.1 /CMM (0.0-0.2); BASOPHILS % (AUTO) 0.8 % (0.0-2.0); EOSINOPHILS % (AUTO) 3.9 % (0.0-6.0); HEMATOCRIT 32 % (33-45); HEMOGLOBIN 10.3 g/dL (11.5-14.8); LYMPHOCYTES # (AUTO) 1.2 /CMM (0.8-4.8); LYMPHOCYTES % (AUTO) 12.1 % (20.0-44.0); MEAN CORPUSCULAR HGB CONC 32 g/dl (31.0-36.0); MEAN CORPUSCULAR VOLUME 94 fL (82-100); MONOCYTES # (AUTO) 0.7 /CMM (0.1-1.30); MONOCYTES % (AUTO) 7.6 % (2.0-12.0); NEUTROPHILS # (AUTO) 7.4 /CMM (1.8-8.9); NEUTROPHILS % (AUTO) 75.6 % (43.0-81.0); PLATELET COUNT (AUTO) 258 /CMM (150-450); RED BLOOD CELL COUNT(AUTO) 3.38 MIL/uL (4.0-5.2); WHITE BLOOD COUNT (AUTO) 9.7 K/uL (4.3-11.0)
--- NOTE | 2019-05-06 17:20 | NUR ---
CALLED [facility] [phone] DR. CUNHA WILL BE PAGED.
[2019-05-06 17:21] LABS: CALCIUM, SERUM 8.9 mg/dL (8.5-10.1); CREATININE 2.8 mg/dL (0.6-1.3); POTASSIUM 2.9 mmol/L (3.5-5.1)
[2019-05-06 17:26] LABS: ALBUMIN 2.6 g/dL (3.4-5.0); BILIRUBIN,TOTAL 0.8 mg/dL (0.2-1.0); TOTAL PROTEIN, SERUM 7.9 g/dL (6.4-8.2)
[2019-05-06] MEDS ORDERED: EPOE1000 IJ (18:48)
--- NOTE | 2019-05-06 19:13 | NUR ---
ASKED TO WAIT FOR AFTER THE REPORT FOR BED
--- NOTE | 2019-05-06 19:59 | NUR ---
RECIEVED BED 118-1
--- NOTE | 2019-05-06 20:51 | NUR ---
verbal order from dr. cruz; give potassium 20meq ivpb
--- NOTE | 2019-05-06 20:51 | NUR ---
report given to nadine suazo for belinda; pt will be transported to 1st floor tele
[2019-05-06] MEDS ORDERED: POTASSIUM CL. PREMIX PERIPHER. 50 ML ONE (20:52)
[2019-05-06] MEDS ORDERED: POTASSIUM CHLORIDE 10 MEQ/50 ML PREMIXED IVPB FOR PERIPHERAL LINE IV ONE (21:30)
[2019-05-06] MEDS ORDERED: DEXTROSE 50%-WATER 50 ML DISP.SYRIN IV PRN (22:30)
[2019-05-06] MEDS: BLOOD SUGAR DIAGNOSTIC 1 EACH STRIP IN SCH (23:04)
[2019-05-06] MEDS: INSULIN REGULAR, HUMAN 100 UNIT/ML 3 ML VIAL SQ PRN (23:09)
[2019-05-06] MEDS: INSULIN GLARGINE, 100 UNIT/ML CARTRIDGE SQ SCH (23:15)
[2019-05-06] MEDS: NEPRO 1,000 ML BOTTLE GT PRN (23:16)
[2019-05-07] VITALS: BP 125/75
--- NOTE | 2019-05-07 02:28 | NUR ---
RT NOTE Pt rec'd trached on [facility] vent on AC mode. No resp distress or sob noted. Trach is patent and secured. Pt sx'd for thick mod amt of pale yellow secretions. Alarms are set and audible. Vent plugged into red outlet. Ambu bag bedside. Will continue to monitor. Addendum: 05/07/19 at 0229 by VITOR TILLMAN RT Amended: Links added.
[2019-05-07 04:00] VITALS: BP 125/75
[2019-05-07] MEDS: BLOOD SUGAR DIAGNOSTIC 1 EACH STRIP IN SCH ×4 (05:30→23:02)
[2019-05-07] MEDS: INSULIN REGULAR, HUMAN 100 UNIT/ML 3 ML VIAL SQ PRN ×4 (05:38→23:01)
--- NOTE | 2019-05-07 06:34 | NUR ---
closing notes: GT FEEDING STARTED 2300 LAST NIGHT CKECKED FOR RESIDUAL 3 HOURS AFTER STARTING, 0 OBTAINED. ASPIRATION PRECAUTIONS. 02 SATS 100% LEFT ARM AV FISTULA WITJ CLAMP FROM ER TO STOP THE BLEEDIN ELEVATED THE ARM ON A PILLOW, HAND AND ARM WARM TO TOUCH. AV SHUNT LEFT UPPER ARM WITH + BRUIT AND + THRILLL. SR ON THE TELE MONITOR. NOTED COPIOUS DROOLING
[2019-05-07 06:46] LABS: BASOPHILS % (AUTO) 0.8 % (0.0-2.0); HEMATOCRIT 29 % (33-45); HEMOGLOBIN 9.5 g/dL (11.5-14.8); LYMPHOCYTES # (AUTO) 1.2 /CMM (0.8-4.8); LYMPHOCYTES % (AUTO) 18.8 % (20.0-44.0); MEAN CORPUSCULAR HGB CONC 33 g/dl (31.0-36.0); MEAN CORPUSCULAR VOLUME 94 fL (82-100); MONOCYTES # (AUTO) 0.6 /CMM (0.1-1.30); NEUTROPHILS # (AUTO) 4.1 /CMM (1.8-8.9); NEUTROPHILS % (AUTO) 65.4 % (43.0-81.0); PLATELET COUNT (AUTO) 255 /CMM (150-450); RED BLOOD CELL COUNT(AUTO) 3.08 MIL/uL (4.0-5.2); WHITE BLOOD COUNT (AUTO) 6.2 K/uL (4.3-11.0)
[2019-05-07 07:20] LABS: ALBUMIN 2.4 g/dL (3.4-5.0); BILIRUBIN,TOTAL 0.6 mg/dL (0.2-1.0); CREATININE 3.6 mg/dL (0.6-1.3); POTASSIUM 2.9 mmol/L (3.5-5.1); TOTAL PROTEIN, SERUM 7.3 g/dL (6.4-8.2)
--- NOTE | 2019-05-07 07:30 | NUR ---
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 SATTING 100 %. BREATHING IS EQUAL, UNLABORED. SINUS RHYTHM HR 81 ON TELE MONITOR. NO SIGNS OF DISCOMFORT OR GRIMACING. WITH RT HAND AND RT AC IV ACCESS, BOTH FLUSHES WELL AND BOTH SITES CLEAR. ONGOING GTF NEPRO AT 50 ML/HR. CHECKED FOR PLACEMENT, O RESIDUEAL. SEE NURSING FLOWSHEET FOR SKIN ISSUES. WILL TURN AND REPOSITION Q 2 HOURS. BED LOW LOCKED. HOB ELEVATED. SAFETY MEASURES IN PLACE. WILL CONT TO MONITOR. Addendum: 05/07/19 at 1747 by ROSIE NETTLES RN ADDENDUM A WHITE CLAMP IN SITU ON LEFT UPPER ARM. NO BLEEDING NOTED ON AV SHUNT SITE.
[2019-05-07 08:00] VITALS: BP 115/75
[2019-05-07] MEDS ORDERED: ACETAMINOPHEN 650 MG/20.3 ML UDC GT PRN ×2 (08:30)
[2019-05-07] MEDS ORDERED: ONDANSETRON 4 MG TAB.RAPDIS GT PRN (08:30)
[2019-05-07] MEDS ORDERED: INSULIN REGULAR, HUMAN 100 UNIT/ML 3 ML VIAL SQ PRN (08:30)
[2019-05-07] MEDS ORDERED: MISCELLANEOUS MED 1 EA EA GT PRN (08:30)
[2019-05-07] MEDS ORDERED: MISCELLANEOUS MED 1 EA EA XX ONE (08:30)
[2019-05-07] MEDS: BRIMONIDINE TARTRATE OPHT SOLN 5 ML BOTTLE EACHEYE SCH ×4 (08:56→22:49)
[2019-05-07] MEDS ORDERED: FAMOTIDINE (20 MG) 20 MG TABLET GT SCH (09:00)
[2019-05-07] MEDS ORDERED: NEUTRA PHOS 1 POWD.PACKET GT ONE (09:00)
[2019-05-07] MEDS: DOCUSATE SODIUM LIQ 100 MG/10 ML UDC GT SCH ×2 (09:02→17:11)
[2019-05-07] MEDS: LACTOBACILLUS RHAMNOSUS GG 1 EACH CAP.SPRINK GT SCH (09:03)
[2019-05-07] MEDS: LEVETIRACETAM SOL (5 ML) 100 MG/ML UDC GT SCH ×2 (09:05→22:46)
[2019-05-07] MEDS: CHLORHEXIDINE GLUCONATE 15 ML UDC MM SCH ×2 (09:06→22:45)
[2019-05-07] MEDS: ASCORBIC ACID 500 MG TABLET GT SCH (09:07)
[2019-05-07] MEDS: MIDODRINE HCL (5MG) 5 MG TABLET GT SCH ×3 (09:10→17:00)
[2019-05-07] MEDS: VIT B CMPLX 3/FA/VIT C/BIOTIN 1 TAB TABLET GT SCH (09:12)
--- NOTE | 2019-05-07 09:30 | NUR ---
RN NOTES DUE MEDS GIVEN
[2019-05-07 12:00] VITALS: BP 145/79
[2019-05-07] MEDS ORDERED: BLOOD SUGAR DIAGNOSTIC 1 EACH STRIP IN SCH (12:00)
--- NOTE | 2019-05-07 12:00 | NUR ---
RN NOTES DR. ERICA DELUNA AT BEDSIDE. NOTIFIED OF K LEVEL OF 2.9. NO NEW ORDERS GIVEN PER TO [facility] TO CONTACT DR. RAINES FOR VASCULAR CONSULT. DR. PEDRAZA ON VACATION.
--- NOTE | 2019-05-07 12:12 | NUR ---
RN NOTES ACCUCHECK DONE. BS 291 MG/DL. 6 UNITS HUM R GIVEN PER SS.
--- NOTE | 2019-05-07 12:29 | NUR ---
RN NOTES PLACED A CALL TO DR. RAINES'S OFFICE [phone]. LEFT A MESSAGE RE VASCULAR CONSULT. OFFICE CLOSED ON WEEKENDS.
--- NOTE | 2019-05-07 13:06 | NUR ---
RN NOTES PROAMATINE NOT GIVEN. BP 145/79
[2019-05-07] MEDS ORDERED: POTASSIUM CHLORIDE 20 MEQ POWDER PACKET GT ONE (13:30)
[2019-05-07 16:00] VITALS: BP 153/78
--- NOTE | 2019-05-07 17:00 | NUR ---
RN NOTES PROAMATINE NOT GIVEN. BP 153/78
--- NOTE | 2019-05-07 18:00 | NUR ---
RN NOTES TUBE FEEDING OFF AT 1800. RESTART AT 0100.
--- NOTE | 2019-05-07 18:00 | NUR ---
RN NOTES Pt in bed, obtunded. Repositioned q 2hr. Wound care dressing done. Kept clean and dry. All due meds given via gtube, tolerated well. No signs of bleeding noted. Will continue to monitor.
[2019-05-07 20:00] VITALS: BP 160/74
[2019-05-07] MEDS ORDERED: INSULIN GLARGINE,BASAGLAR 100 UNIT/ML INSULN.PEN SQ SCH (22:00)
[2019-05-07] MEDS: LATANOPROST EYE DROP 0.005% 2.5 ML BOTTLE EACHEYE SCH (22:50)
[2019-05-07] MEDS: INSULIN GLARGINE, 100 UNIT/ML CARTRIDGE SQ SCH (22:59)
[2019-05-08] VITALS: BP 100/40
[2019-05-08 04:00] VITALS: BP 110/57
--- NOTE | 2019-05-08 05:48 | NUR ---
PATIENT RECEIVED ON VENT SUPPORT WITH PORTEX #7 WITH SETTINGS OF AC 10, 500 VT, 40%, +5. SUCTIONED FOR MINIMAL, THIN, WHITE SECRETIONS. NO ADVERSE REACTIONS NOTED. AMBU BAG AT BEDSIDE. VENT AND PULSE OXIMETER ALARMS AUDIBLE AND VISIBLE. VENT PLUGGED INTO RED OUTLET. TRACH CARE DONE. Addendum: 05/08/19 at 0550 by MIRI LOPEZ RT Amended: Links added.
[2019-05-08] MEDS: BLOOD SUGAR DIAGNOSTIC 1 EACH STRIP IN SCH ×4 (06:00→23:12)
[2019-05-08 06:24] LABS: BASOPHILS # (AUTO) 0.1 /CMM (0.0-0.2); BASOPHILS % (AUTO) 0.7 % (0.0-2.0); EOSINOPHILS % (AUTO) 4.9 % (0.0-6.0); HEMATOCRIT 29 % (33-45); HEMOGLOBIN 9.6 g/dL (11.5-14.8); LYMPHOCYTES # (AUTO) 1.5 /CMM (0.8-4.8); LYMPHOCYTES % (AUTO) 20.1 % (20.0-44.0); MEAN CORPUSCULAR HGB CONC 33 g/dl (31.0-36.0); MEAN CORPUSCULAR VOLUME 95 fL (82-100); MONOCYTES # (AUTO) 0.8 /CMM (0.1-1.30); MONOCYTES % (AUTO) 10.3 % (2.0-12.0); NEUTROPHILS # (AUTO) 4.7 /CMM (1.8-8.9); PLATELET COUNT (AUTO) 278 /CMM (150-450); RED BLOOD CELL COUNT(AUTO) 3.09 MIL/uL (4.0-5.2); WHITE BLOOD COUNT (AUTO) 7.4 K/uL (4.3-11.0)
[2019-05-08 06:45] LABS: CALCIUM, SERUM 9.2 mg/dL (8.5-10.1); CREATININE 4.8 mg/dL (0.6-1.3); MAGNESIUM 2.1 mg/dL (1.8-2.4); PHOSPHORUS 2.5 mg/dL (2.5-4.9); POTASSIUM 3.7 mmol/L (3.5-5.1)
[2019-05-08] MEDS: INSULIN REGULAR, HUMAN 100 UNIT/ML 3 ML VIAL SQ PRN ×4 (06:57→23:19)
--- NOTE | 2019-05-08 07:16 | NUR ---
ACADEMIC SPECIALIST OPENING NOTE RECEIVED REPORT FROM [facility] SHIFT NURSE.RECEIVED PT IN BED, OBTUNDED, ON VENT, TOLERATING SETTINGS WELL, NO SIGNS OF RESPIRATORY DISTRESS NOTED. SINUS RHYTHM ON TELE MONITOR. NEPHRO INFUSING AT 50CC/HR, PT TOLERATING FEEDING WELL. IV SITE ON RIGHT HAND G20 INTACT, PATENT WITH HEP LOCK IN PLACE. IV SITE ON RIGHT AC G20 INTACT, PATENT, WITH HEP LOCK IN PLACE. BED IN LOW POSITION, LOCKED, CALL LIGHT WITHIN REACH, HOB ELEVATED.
[2019-05-08 08:00] VITALS: BP_SYST 135; BP_SYST 84; BP_SYST 92; BP_DIAS 34; BP_DIAS 50; BP_DIAS 75
[2019-05-08] MEDS: VIT B CMPLX 3/FA/VIT C/BIOTIN 1 TAB TABLET GT SCH (08:41)
[2019-05-08] MEDS: CHLORHEXIDINE GLUCONATE 15 ML UDC MM SCH ×2 (08:41→21:27)
[2019-05-08] MEDS: ASCORBIC ACID 500 MG TABLET GT SCH (08:41)
[2019-05-08] MEDS: LEVETIRACETAM SOL (5 ML) 100 MG/ML UDC GT SCH ×2 (08:41→21:27)
[2019-05-08] MEDS: DOCUSATE SODIUM LIQ 100 MG/10 ML UDC GT SCH ×2 (08:41→16:14)
[2019-05-08] MEDS: LACTOBACILLUS RHAMNOSUS GG 1 EACH CAP.SPRINK GT SCH (08:41)
[2019-05-08] MEDS: MIDODRINE HCL (5MG) 5 MG TABLET GT SCH ×3 (08:44→16:15)
[2019-05-08 12:00] VITALS: BP 90/45
[2019-05-08] MEDS: BRIMONIDINE TARTRATE OPHT SOLN 5 ML BOTTLE EACHEYE SCH ×2 (12:47→16:16)
--- NOTE | 2019-05-08 15:45 | NUR ---
HEAD TO TOE ASSESSMENT PERFORMED, NOTED SACRAL REDNESS WITH EXCORIATION, SCAB ON RIGHT INNER LEG, SCAR ON RIGHT FOOT, ABDOMINAL FOLD REDNESS BILATERALLY, LEFT ARM SCAB AND SUTURE SITE WITH SUTURES. PHOTOS TAKEN, WOUND CONSULT ORDERED, WOUND CARE PLAN INITIATED.
[2019-05-08 16:00] VITALS: BP 139/51
--- NOTE | 2019-05-08 18:00 | NUR ---
DIALYSIS NURSE BY BEDSIDE
--- NOTE | 2019-05-08 18:28 | NUR ---
WOOD DIE MAKER CLOSING NOTE RECEIVED PT IN BED, OBTUNDED, ON VENT, TOLERATING SETTINGS WELL, NO SIGNS OF RESPIRATORY DISTRESS NOTED. SINUS RHYTHM ON TELE MONITOR. NEPHRO INFUSING AT 50CC/HR, PT TOLERATING FEEDING WELL. IV SITE ON RIGHT HAND G22 INTACT, PATENT WITH HEP LOCK IN PLACE. IV SITE ON RIGHT AC G20 INTACT, PATENT, WITH HEP LOCK IN PLACE. BED IN LOW POSITION, LOCKED, CALL LIGHT WITHIN REACH, HOB ELEVATED. PROVIDED SAFETY AND COMFORT TO PT THROUGHOUT SHIFT, ALL DUE MEDS GIVEN. WILL ENDORSE TO NOC SHIFT NURSE.
--- NOTE | 2019-05-08 19:30 | NUR ---
RADIATOR REPAIRER NOTES, RECEIVED PATIENT IN BED, ON MECHANICAL VENTILATOR, TOLERATING SETTINGS WELL, OBTUNDED, NO S/S OF SOB/ACUTE RESPIRATORY DISTRESS NOTED AT THIS TIME, SINUS RHYTHM ON TELE MONITOR WITH HR IN 90S AT THIS TIME, NEPHRO INFUSING AT 50CC/HR, PATIENT TOLERATING FEEDING WELL, WILL BE OFF AT 1999 ORDERED, IV SITES ON RIGHT PATENT AND INTACT, RECEIVING HD AT THIS TIME AND TOLERATING WELL , BED LOCKED AND IN LOW POSITION, CALL LIGHT WITHIN REACH, HOB ELEVATED, ALL NEEDS PROVIDED, WILL CONTINUE TO MONITOR CLOSELY.
[2019-05-08 20:00] VITALS: BP 129/68
--- NOTE | 2019-05-08 21:00 | NUR ---
RN NOTES, HEMODIALYSIS DONE AT THIS TIME WITH VS 123/67, 90, 98.0, 19, 100%, NO ACUTE DISTRESS NOTED, TOLERATED WELL, WILL CONTINUE TO MONITOR CLOSELY.
[2019-05-08] MEDS: LATANOPROST EYE DROP 0.005% 2.5 ML BOTTLE EACHEYE SCH (21:27)
[2019-05-08] MEDS: INSULIN GLARGINE, 100 UNIT/ML CARTRIDGE SQ SCH (21:38)
[2019-05-09] VITALS: BP 118/72
[2019-05-09] MEDS: NEPRO 1,000 ML BOTTLE GT PRN (02:41)
[2019-05-09 04:00] VITALS: BP 121/59
[2019-05-09] MEDS: BLOOD SUGAR DIAGNOSTIC 1 EACH STRIP IN SCH ×3 (05:05→17:10)
[2019-05-09] MEDS: INSULIN REGULAR, HUMAN 100 UNIT/ML 3 ML VIAL SQ PRN ×3 (05:07→17:10)
--- NOTE | 2019-05-09 07:00 | NUR ---
RN NOTES, PATIENT IN BED ON MECHANICAL VENTILATOR TOLERATED SETTING WELL, NO SOB/ACUTE DISTRESS NOTED, NO C/O PAIN OR DISCOMFORT, NO CHANGE IN CONDITION DURING THE NIGHT, HD LAST NIGHT 1.7 ALL NEEDS PROVIDED, NO ACTIVE BLEEDING DURING THE NIGHT, CALL LIGHT W/I REACH, WILL ENDORSE CONTINUITY OF CARE TO ONCOMING NURSE.
[2019-05-09 07:23] LABS: BASOPHILS # (AUTO) 0.1 /CMM (0.0-0.2); BASOPHILS % (AUTO) 0.9 % (0.0-2.0); EOSINOPHILS % (AUTO) 5.9 % (0.0-6.0); HEMATOCRIT 32 % (33-45); HEMOGLOBIN 10.2 g/dL (11.5-14.8); LYMPHOCYTES # (AUTO) 1.4 /CMM (0.8-4.8); LYMPHOCYTES % (AUTO) 21.2 % (20.0-44.0); MEAN CORPUSCULAR HGB CONC 32 g/dl (31.0-36.0); MEAN CORPUSCULAR VOLUME 96 fL (82-100); MONOCYTES # (AUTO) 0.7 /CMM (0.1-1.30); MONOCYTES % (AUTO) 9.9 % (2.0-12.0); NEUTROPHILS # (AUTO) 4.1 /CMM (1.8-8.9); NEUTROPHILS % (AUTO) 62.1 % (43.0-81.0); PLATELET COUNT (AUTO) 291 /CMM (150-450); RED BLOOD CELL COUNT(AUTO) 3.31 MIL/uL (4.0-5.2); WHITE BLOOD COUNT (AUTO) 6.6 K/uL (4.3-11.0)
[2019-05-09 07:34] LABS: CALCIUM, SERUM 9.4 mg/dL (8.5-10.1); CREATININE 3.8 mg/dL (0.6-1.3); MAGNESIUM 2.2 mg/dL (1.8-2.4); POTASSIUM 3.5 mmol/L (3.5-5.1)
[2019-05-09 08:00] VITALS: BP 116/57
[2019-05-09] MEDS: CHLORHEXIDINE GLUCONATE 15 ML UDC MM SCH (08:50)
[2019-05-09] MEDS: BRIMONIDINE TARTRATE OPHT SOLN 5 ML BOTTLE EACHEYE SCH ×3 (08:50→16:37)
[2019-05-09] MEDS: LEVETIRACETAM SOL (5 ML) 100 MG/ML UDC GT SCH (08:51)
[2019-05-09] MEDS: ASCORBIC ACID 500 MG TABLET GT SCH (08:51)
[2019-05-09] MEDS: DOCUSATE SODIUM LIQ 100 MG/10 ML UDC GT SCH ×2 (08:51→16:37)
[2019-05-09] MEDS: LACTOBACILLUS RHAMNOSUS GG 1 EACH CAP.SPRINK GT SCH (08:51)
[2019-05-09] MEDS: VIT B CMPLX 3/FA/VIT C/BIOTIN 1 TAB TABLET GT SCH (08:51)
[2019-05-09] MEDS: MIDODRINE HCL (5MG) 5 MG TABLET GT SCH ×3 (08:52→16:38)
[2019-05-09] MEDS ORDERED: EPOETIN ALFA (10,000 UNIT) 10,000 UNIT/ML VIAL IV SCH (09:00)
[2019-05-09] MEDS ORDERED: NEUTRA PHOS 1 POWD.PACKET NG ONE (11:00)
[2019-05-09 12:00] VITALS: BP 115/47
[2019-05-09] MEDS ORDERED: Z GUARD REMEDY 2 OZ OINT TP SCH (14:00)
--- NOTE | 2019-05-09 15:00 | NUR ---
RN Note: Bed bath, wound care rendered, pt tolerated well. Pt for discharge to [facility] today. No change in skin condition from last photograph less than 24 hours ago. corporate consultant aware.
--- NOTE | 2019-05-09 15:28 | NUR ---
RN Note: Report called to Elieser Thibodeaux, spoke with LAWRENCE Osuna. Questions answered. Return # provided.
[2019-05-09 16:00] VITALS: BP 131/91
--- NOTE | 2019-05-09 19:17 | NUR ---
RN Note: Transport p/u delayed; ETA 2000 per charge coordinator. Bedside report given; discharge endorsed to [facility] RN for continuity of care.
--- NOTE | 2019-05-09 20:23 | NUR ---
PT RECEIVE STABLE ON MV, SETTINGS ARE AC 10 500 +5 AT 40% FIO2, TRACH PATENT AND SECURED, AMBU BAG IS AT BEDSIDE, VENT IS PLUG IN RED OUTLET, WILL CONTINUE TO MONITOR. Addendum: 05/09/19 at 2028 by AMINA GARCIA RT Amended: Links added.
[2019-05-09 20:50] VITALS: BP 166/52
[2019-05-09] MEDS ORDERED: hydrALAZINE HCL IV 20 MG VIAL IV ONE (21:00)
--- NOTE | 2019-05-09 21:10 | NUR ---
TELE-1/INTEGRATION ANALYST NEW ORDER RECEIVED FOR PT BP MEDICATION. ADMINISTERED ORDERED. PT OFF THE FLOOR WITH EMT FOR TRANSPORT TO [facility].
== END 2019-05-09 22:30 | DRG 314 ==
LOC: ER 16:19 → TELE1 20:18
PROC: 5A1945Z Respiratory Ventilation, 24-96 Consecutive Hours (ICD-10-PCS; principal; 2019-05-06)
PROC: 5A1D70Z Performance of Urinary Filtration, Intermittent, Less than 6 Hours Per Day (ICD-10-PCS; 2019-05-08)
DX: T82.838A Hemorrhage due to vascular prosthetic devices, implants and grafts, initial encounter (principal); N18.6 End stage renal disease; R53.2 Functional quadriplegia; Z99.11 Dependence on respirator [ventilator] status; I12.0 Hypertensive chronic kidney disease with stage 5 chronic kidney disease or end stage renal disease; G93.1 Anoxic brain damage, not elsewhere classified; D68.69 Other thrombophilia; J96.11 Chronic respiratory failure with hypoxia; Z99.2 Dependence on renal dialysis; Z93.1 Gastrostomy status; E11.22 Type 2 diabetes mellitus with diabetic chronic kidney disease; G40.909 Epilepsy, unspecified, not intractable, without status epilepticus; E78.5 Hyperlipidemia, unspecified; I25.10 Atherosclerotic heart disease of native coronary artery without angina pectoris; Z93.0 Tracheostomy status; Y83.8 Other surgical procedures as the cause of abnormal reaction of the patient, or of later complication, without mention of misadventure at the time of the procedure; D63.8 Anemia in other chronic diseases classified elsewhere; E83.9 Disorder of mineral metabolism, unspecified; Y71.2 Prosthetic and other implants, materials and accessory cardiovascular devices associated with adverse incidents; Z79.4 Long term (current) use of insulin; Z90.710 Acquired absence of both cervix and uterus; R13.10 Dysphagia, unspecified; L98.8 Other specified disorders of the skin and subcutaneous tissue; Y92.129 Unspecified place in nursing home as the place of occurrence of the external cause
CPT/HCPCS: 31720; 36415; 80048-TC; 80053-TC; 82962-TC; 83735-TC; 84100-TC; 85025-TC; 85730-TC; 86850-TC; 87081-TC; 90935-TC; 94002-TC; 94003-TC; 94760-TC; 94762-TC; 99082-TC; A4623; G0378; J0360; J0885; J1815; J1953; J3480; Q0162

== ENCOUNTER 2019-07-13 17:59 | Emergency (ER) | payer MEDICARE, OTHER ==
[~2019-07-13] VITALS: Ht 165.1 cm; Wt 67.2 kg
[~2019-07-13 17:59] MED LIST changes: +EPOE1000 IJ; -EPOE1000 SQ; -GLUC1KIT IM; -RXVAN XX; -VANC500F2 IV
--- NOTE | 2019-07-13 18:10 | NUR ---
RT Pt was brought into ER trached on mechanical ventilation with noted settings. Pt is awake but does not follow commands. Pt switched over to hospital ventilator. Vent is plugged into red outlet. No SOB or respiratory distress noted. Addendum: 07/13/19 at 1826 by TITO WADDELL RT Amended: Links added.
--- NOTE | 2019-07-13 18:15 | NUR ---
SEEN BY DR. GONZALES
--- NOTE | 2019-07-13 18:21 | NUR ---
CALLED [facility] FOR TRANSPORT TO [facility]. ETA 30 MINUTES.
[2019-07-13 19:17] VITALS: BP 117/83
== END 2019-07-13 19:17 ==
LOC: ER 18:01
DX: E11.22 Type 2 diabetes mellitus with diabetic chronic kidney disease (principal); I12.0 Hypertensive chronic kidney disease with stage 5 chronic kidney disease or end stage renal disease; N18.6 End stage renal disease; D63.1 Anemia in chronic kidney disease; Z99.2 Dependence on renal dialysis; E78.5 Hyperlipidemia, unspecified; Z93.1 Gastrostomy status; Z93.0 Tracheostomy status; Z79.899 Other long term (current) drug therapy; Z79.4 Long term (current) use of insulin

== ENCOUNTER 2019-08-24 15:27 | Inpatient (IN) | payer MEDICARE, OTHER ==
[~2019-08-24] VITALS: Ht 160 cm; Wt 66.2 kg
[~2019-08-24 15:27] MED LIST changes: -EPOE1000 IJ; +EPOE1000 SQ
--- NOTE | 2019-08-24 15:50 | NUR ---
RT Pt brought in from dialysis for temperature and pneumonia. Pt placed on vent settings given from transport RT Ashu. [facility] w charted settings. No respiratory distress noted. Alarms set and audible. Vent is plugged into red outlet w [facility]. Trach secure and patent.
--- NOTE | 2019-08-24 15:52 | NUR ---
BIBPA SENT BY PMD FOR "ABNORMAL [facility]R" [facility] TRACH/VENT DEPENDENT, GTUBE IN PLACE. CONTRACTURES ALL 4 EXTREMITIES. WOUND PRESENT ON RIGHT FOOT, SCABBING ON BLE. RESPONDS TO VOICE. NO ACUTE DISTRESS NOTED, LOW-GRADE FEVER PRESENT. PLACED ON MONITOR, MADE COMFORTABLE, SEEN BY DR GONZALES. AWAITING ORDERS.
[2019-08-24] MEDS ORDERED: PIPERACILLIN /TAZOBACTAM 3.375 G in IV D5W 50 ML IV ONE (16:00)
[2019-08-24] MEDS ORDERED: PIPERACILLIN /TAZOBACTAM 3.375 G VIAL IV ONE (16:01)
--- NOTE | 2019-08-24 16:04 | NUR ---
CUSTOM HOME INSTALLER AT BEDSIDE
[2019-08-24 16:35] LABS: BASOPHILS # (AUTO) 0.1 /CMM (0.0-0.2); BASOPHILS % (AUTO) 0.7 % (0.0-2.0); HEMATOCRIT 24 % (33-45); HEMOGLOBIN 7.9 g/dL (11.5-14.8); LYMPHOCYTES % (AUTO) 8.7 % (20.0-44.0); MEAN CORPUSCULAR HGB CONC 33 g/dl (31.0-36.0); MEAN CORPUSCULAR VOLUME 91 fL (82-100); MONOCYTES # (AUTO) 0.5 /CMM (0.1-1.30); MONOCYTES % (AUTO) 4.4 % (2.0-12.0); NEUTROPHILS # (AUTO) 9.7 /CMM (1.8-8.9); NEUTROPHILS % (AUTO) 86.2 % (43.0-81.0); PLATELET COUNT (AUTO) 195 /CMM (150-450); RED BLOOD CELL COUNT(AUTO) 2.62 MIL/uL (4.0-5.2); WHITE BLOOD COUNT (AUTO) 11.2 K/uL (4.3-11.0)
[2019-08-24] MEDS ORDERED: ACET-868 GT (16:40)
[2019-08-24] MEDS ORDERED: ALBU2.5V38 IH (16:40)
[2019-08-24] MEDS ORDERED: GLUC1KIT IM (16:40)
[2019-08-24 16:42] LABS: CALCIUM, SERUM 9.2 mg/dL (8.5-10.1); CARBON DIOXIDE 26 mmol/L (21-32); CHLORIDE 95 mmol/L (98-107); CREATININE 5.8 mg/dL (0.6-1.3); GLUCOSE 182 mg/dL (74-106); POTASSIUM 3.7 mmol/L (3.5-5.1); SODIUM SERUM 136 mmol/L (136-145); UREA NITROGEN, BLOOD 57 mg/dL (7-18)
--- NOTE | 2019-08-24 16:42 | NUR ---
PAGED [facility].
--- NOTE | 2019-08-24 16:45 | NUR ---
PT RESTING COMFORTABLY IN BED. VSS. WILL CONT TO MONITOR.
--- NOTE | 2019-08-24 17:20 | NUR ---
CALLED NURSING SUP FOR [facility]J BED.
[2019-08-24 17:24] LABS: ALBUMIN 2.8 g/dL (3.4-5.0); BILIRUBIN,DIRECT 0.6 mg/dL (0.0-0.2); BILIRUBIN,TOTAL 1.1 mg/dL (0.2-1.0); TOTAL PROTEIN, SERUM 8.2 g/dL (6.4-8.2)
--- NOTE | 2019-08-24 17:32 | NUR ---
NURSING SUP GAVE RAJ BED 103.
[2019-08-24] MEDS ORDERED: FEE PK DOSING 1 MIN EA MC ONE (17:54)
[2019-08-24] MEDS ORDERED: INSULIN REGULAR, HUMAN 100 UNIT/ML 3 ML VIAL SQ PRN (18:00)
[2019-08-24] MEDS ORDERED: BLOOD SUGAR DIAGNOSTIC 1 EACH STRIP IN SCH (18:00)
[2019-08-24] MEDS ORDERED: NEPRO 1,000 ML BOTTLE GT PRN (18:00)
[2019-08-24] MEDS ORDERED: VANCOMYCIN 1 GM in IV D5W 250 ML IV ONE (18:00)
[2019-08-24] MEDS ORDERED: DEXTROSE 50%-WATER 50 ML DISP.SYRIN IV PRN (18:00)
[2019-08-24] MEDS ORDERED: ONDANSETRON HCL/PF 4 MG/2 ML VIAL IVP PRN (18:00)
--- NOTE | 2019-08-24 18:06 | NUR ---
Patient is resting comfortably in bed with eyes closed. Easily aroused. VSS
--- NOTE | 2019-08-24 18:37 | NUR ---
REPORT GIVEN TO LAWRENCE ROSALES FOR RAJ 103-T, DR MALDONADO ADMITTING
[2019-08-24 18:50] VITALS: BP 128/73
--- NOTE | 2019-08-24 18:55 | NUR ---
FISH BONING MACHINE FEEDER NOTES RECEIVED PT FROM E.R. STAFF VIA [facility], PT IS AWAKE, NOT IN DISTRESS, ASSISTED TO BED, MADE COMFORTABLE, PT ON TRACH/VENT, RT AT BEDSIDE, KEPT WARM AND COMFORTABLE.
--- NOTE | 2019-08-24 18:58 | NUR ---
[facility]
[2019-08-24 19:22] LABS: C-REACTIVE PROTEIN 41.4 mg/dL (0.0-0.9)
[2019-08-24] MEDS: ALBUTEROL FS 2.5 MG/3 ML VIAL.NEB IH SCH (19:30)
--- NOTE | 2019-08-24 19:30 | NUR ---
[facility] RN NOTES PATIENT ARRIVED TO THE [facility] UNIT [facility]. VITAL SIGNS WNL. PATIENT IS OBTUNDED. IV SITE RT HAND 22G INTACT PATENT. FLUSHING WELL. TELE MONITOR CURRENT READING IS SR IN 70'S. NO S/S OF PAIN NOTED. PATENT IS ON VENT SETTING TOLERATING WELL. ON ISOLATION PRECAUTION. PATIENT HAS A AV SHUNT ON LEFT ARM. UPON ASSESSMENT SKIN ASSESSMENT DONE NOTED WITH MULTIPLE WOUNDS. WOUND CONSULT ORDERED. PATIENT IS ON GTF CURRENTLY NPO ORDERED. ALL SAFETY MEASURES IN PLACE, CALL LIGHT WITHIN REACH, SIDE RAILS UP X2. WILL CONT WITH SHERRY.
--- NOTE | 2019-08-24 19:45 | NUR ---
CO DIRECTOR NOTE UNABLE TO PUT TELE MONITOR. ECO IN PROGRESS.
[2019-08-24 20:00] VITALS: BP 128/73
[2019-08-24] MEDS: AZITHROMYCIN 500 MG in IV D5W 250 ML IV SCH (20:03)
[2019-08-24] MEDS: ACETAMINOPHEN 325 MG TABLET PO PRN (20:35)
[2019-08-24] MEDS: LEVETIRACETAM SOL (5 ML) 100 MG/ML UDC GT SCH (21:04)
[2019-08-24] MEDS: LATANOPROST EYE DROP 0.005% 2.5 ML BOTTLE EACHEYE SCH (21:10)
[2019-08-24 21:44] LABS: ABG BASE EXCESS -3.5 mmol/L; ABG OXYGEN SATURATION 98.2 % (92.0-98.5); ABG PCO2 27.9 mmHg (35.0-45.0); ABG PH 7.463 (7.350-7.450); ABG PO2 132.6 mmHg (75.0-100.0); AaDO2 120.5 mmHg; COHb 0.6 % (0.5-1.5); MetHb 0.3 % (0.0-1.5); O2Hb 97.3 % (94.0-97.0); PEEP,BG 5 cm H2O; SITE, ABG Right Radial; VENT MODE, BG AC 10/500/40/5; VT, ABG 500 mL
[2019-08-24] MEDS: INSULIN GLARGINE, 100 UNIT/ML CARTRIDGE SQ SCH (22:00)
--- NOTE | 2019-08-24 22:00 | NUR ---
FORCE ADJUSTMENT SUPERVISOR NOTE LANTUS IS NON ADMINISTERED PATIENT IS CURRENTLY NPO AND BLOOD SUGAR IS TRENDING DOWN CURRENT BS IS 144.
[2019-08-24 23:27] LABS: BILIRUBIN,DIRECT 0.6 mg/dL (0.0-0.2)
--- NOTE | 2019-08-24 23:43 | NUR ---
RAJ RN NOTE RECEIVED CALL FROM LAB TALKED TO KAR LACTIC ACID IS 6.7. READ BACK THE RESULTS TO VERIFY.
--- NOTE | 2019-08-24 23:46 | NUR ---
RAJ RN NOTE PAGE EPIC TALKED TO TITUS WHELAN RELAY LAB RESULTS NEW ORDERS RECEIVED READ BACK THE ORDERS TO VERIFIED, INPUT THE ORDERS NOTED AND CARRIED OUT.
[2019-08-25] VITALS (10 sets, daily range): BP systolic 70–124; BP diastolic 42–68
[2019-08-25] MEDS: PIPERACILLIN /TAZOBACTAM 2.25 G in IV D5W 50 ML IV SCH ×3 (01:11→17:41)
[2019-08-25] MEDS: ALBUTEROL FS 2.5 MG/3 ML VIAL.NEB IH SCH ×2 (01:30→07:43)
[2019-08-25] MEDS: BLOOD SUGAR DIAGNOSTIC 1 EACH STRIP IN SCH ×4 (06:00→23:15)
--- NOTE | 2019-08-25 06:47 | NUR ---
RAJ RN NOTES PATIENT IN BED RESTING COMFORTABLY NO S/S OF ACUTE DISTRESS NOTED. SKIN WARM AND DRY TO TOUCH. ON TELE MONITOR SHOWS SR, ST RHYTHM. ALL SCHEDULED MEDICATIONS WERE GIVEN ORDERED PATIENT TOLERATED WELL. KEPT CLEAN AND COMFORTABLE. ON MECHANICAL VENTILATOR ORDERED SETTING TOLERATING WELL. TURNING REPOSITIONING Q2H ORDERED. CONTINUES ON ISOLATION. PRECAUTIONS. ALL SAFETY MEASURES IN PLACE, CALL LIGHT WITHIN REACH, SIDE RAILS UP X2. WILL ENDORSE PATIENT TO DAY SHIFT NURSE FOR SHERRY.
[2019-08-25 06:48] LABS: BASOPHILS % (AUTO) 0.3 % (0.0-2.0); EOSINOPHILS % (AUTO) 0.3 % (0.0-6.0); HEMATOCRIT 24 % (33-45); HEMOGLOBIN 7.9 g/dL (11.5-14.8); LYMPHOCYTES # (AUTO) 1.2 /CMM (0.8-4.8); LYMPHOCYTES % (AUTO) 8.3 % (20.0-44.0); MEAN CORPUSCULAR HGB CONC 33 g/dl (31.0-36.0); MEAN CORPUSCULAR VOLUME 91 fL (82-100); MONOCYTES # (AUTO) 0.6 /CMM (0.1-1.30); MONOCYTES % (AUTO) 4.4 % (2.0-12.0); NEUTROPHILS % (AUTO) 86.7 % (43.0-81.0); PLATELET COUNT (AUTO) 194 /CMM (150-450); RED BLOOD CELL COUNT(AUTO) 2.61 MIL/uL (4.0-5.2); WHITE BLOOD COUNT (AUTO) 13.9 K/uL (4.3-11.0)
[2019-08-25 06:58] LABS: CALCIUM, SERUM 9.2 mg/dL (8.5-10.1); CREATININE 6.7 mg/dL (0.6-1.3); POTASSIUM 4.7 mmol/L (3.5-5.1)
[2019-08-25 06:59] LABS: ALBUMIN 2.6 g/dL (3.4-5.0); BILIRUBIN,TOTAL 1.1 mg/dL (0.2-1.0); TOTAL PROTEIN, SERUM 8.1 g/dL (6.4-8.2)
[2019-08-25] MEDS ORDERED: VANCOMYCIN POST DIALYSIS 500MG IV PRN ×2 (07:00)
[2019-08-25] MEDS ORDERED: Z GUARD REMEDY 2 OZ OINT TP PRN (07:30)
--- NOTE | 2019-08-25 07:30 | NUR ---
RN OPENING NOTES RECEIVED PATIENT RESTING IN BED COMFORTABLY AT THIS TIME. PT IS OBTUNDED. NON-VERBAL, AND BEDBOUND. SHE IS ON MECH VENT VIA PORTEX 7 TRACH, TOLERATING SETTINGS WELL, NO SOB OR RESP DISTRESS PRESENT. TELE MONITOR SHOWING SR ST. SKIN IS NOT INTACT, WILL ADDRESS PER WOUND CARE PLAN. CONTACT AND DROPLET ISO HAVE BEEN IMPLEMENTED, AND ENFORCED FOR RULE OUT COVID 19. IV SITE ON RHAND 22 GAUGE IS PATENT AND INTACT, NO FLUIDS ORDERED AT THIS TIME. AV SHUNT ON L ARM INTACT. GTUBE IS INTACT AND CLAMPED, PT IS NPO. SAFETY MEASURES HAVE BEEN IMPLEMENTED, CALL LIGHT IS WITHIN REACH, BED IS IN LOWEST AND LOCKED POSITION, SIDE RAILS UP X2, WILL CONTINUE TO MONITOR FOR ANY CHANGES.
--- NOTE | 2019-08-25 07:33 | NUR ---
WOUND CARE CONSULT: REVIEWED ADMISSION DOCUMENTATION INCLUDING PHOTOS AND DISCUSSED SKIN PROTECTION WITH NURSING STAFF. SURGICAL TEAM HAS BEEN NOTIFIED OF PT ADMISSION. FIRST STEP LOW AIRLOSS MATTRESS ORDERED. WILL SEE PRN. CURRENT CABRERA SCORE IS 9. Addendum: 08/25/19 at 0739 by FIDEL MICHAEL WNDNU DEFER TO SURGICAL TEAM FOR WOUND TREATMENT PLAN.
--- NOTE | 2019-08-25 08:15 | NUR ---
RN NOTES LACTIC ACID 5.8 (DOWNTRENDING) AND PROCALCITONIN 32 (TRENDING UP). LAB VALUES RELAYED TO DR. MALDONADO
[2019-08-25] MEDS: LACTOBACILLUS RHAMNOSUS GG 1 EACH CAP.SPRINK GT SCH (08:16)
[2019-08-25] MEDS: BRIMONIDINE TARTRATE OPHT SOLN 5 ML BOTTLE OP SCH ×3 (08:16→17:42)
[2019-08-25] MEDS: LEVETIRACETAM SOL (5 ML) 100 MG/ML UDC GT SCH ×2 (08:17→21:34)
[2019-08-25] MEDS: ACETAMINOPHEN 325 MG TABLET PO PRN ×3 (08:17→23:05)
[2019-08-25] MEDS: CHLORHEXIDINE GLUCONATE 15 ML UDC MM SCH (08:17)
[2019-08-25] MEDS: DOCUSATE SODIUM 100 MG CAPSULE PO SCH ×2 (08:18→17:41)
--- NOTE | 2019-08-25 08:30 | NUR ---
RN NOTES PT BP THIS AM IS 83/68, TEMP OF 103 F, HR OF 120. TYLENOL AND COOLING MEASURES HAVE BEEN IMPLEMENTED, DR. MALDONADO HAS BEEN NOTIFIED, RECEIVED ORDER FOR 500 ML NS BOLUS, WILL CONTINUE TO MONITOR FOR ANY CHANGES.
[2019-08-25] MEDS ORDERED: IV NS 0.9% 500 ML IV ONE ×2 (09:00)
[2019-08-25] MEDS: Z GUARD REMEDY 2 OZ OINT TP SCH (09:32)
[2019-08-25] MEDS: ALBUMIN 25% 25 GM in PREMIX 1 EA IV PRN (12:21)
[2019-08-25] MEDS ORDERED: VANCOMYCIN 1 GM in IV D5W 250 ML IV ONE (14:00)
[2019-08-25] MEDS: NEPRO 1,000 ML BOTTLE GT PRN (15:11)
[2019-08-25] MEDS: HYDROXYCHLOROQUINE 200 MG TABLET PO SCH ×2 (15:58→21:38)
[2019-08-25] MEDS: INSULIN REGULAR, HUMAN 100 UNIT/ML 3 ML VIAL SQ PRN ×2 (17:56→23:09)
--- NOTE | 2019-08-25 19:28 | NUR ---
RN NOTES PATIENT HAS BEEN ENDORSED TO NIGHTSHIFT RN FOR SHERRY
[2019-08-25] MEDS: AZITHROMYCIN 500 MG in IV D5W 250 ML IV SCH (21:30)
[2019-08-25] MEDS: MUPIROCIN OINT 2% 22 GM TUBE SCH (21:37)
[2019-08-25] MEDS: LATANOPROST EYE DROP 0.005% 2.5 ML BOTTLE EACHEYE SCH (21:40)
[2019-08-25] MEDS: INSULIN GLARGINE, 100 UNIT/ML CARTRIDGE SQ SCH (23:06)
[2019-08-26] VITALS (8 sets, daily range): BP systolic 74–133; BP diastolic 40–55
[2019-08-26] MEDS: PIPERACILLIN /TAZOBACTAM 2.25 G in IV D5W 50 ML IV SCH ×3 (01:39→16:06)
[2019-08-26 06:19] LABS: BASOPHILS % (AUTO) 0.5 % (0.0-2.0); EOSINOPHILS % (AUTO) 0.9 % (0.0-6.0); HEMATOCRIT 22 % (33-45); HEMOGLOBIN 7.4 g/dL (11.5-14.8); LYMPHOCYTES # (AUTO) 1.1 /CMM (0.8-4.8); LYMPHOCYTES % (AUTO) 16.8 % (20.0-44.0); MEAN CORPUSCULAR HGB CONC 33 g/dl (31.0-36.0); MEAN CORPUSCULAR VOLUME 91 fL (82-100); MONOCYTES # (AUTO) 0.2 /CMM (0.1-1.30); MONOCYTES % (AUTO) 3.7 % (2.0-12.0); NEUTROPHILS % (AUTO) 78.1 % (43.0-81.0); PLATELET COUNT (AUTO) 206 /CMM (150-450); RED BLOOD CELL COUNT(AUTO) 2.43 MIL/uL (4.0-5.2); WHITE BLOOD COUNT (AUTO) 6.4 K/uL (4.3-11.0)
[2019-08-26 06:21] LABS: CALCIUM, SERUM 9.6 mg/dL (8.5-10.1); CARBON DIOXIDE 25 mmol/L (21-32); CHLORIDE 96 mmol/L (98-107); CREATININE 4.6 mg/dL (0.6-1.3); GLUCOSE 285 mg/dL (74-106); MAGNESIUM 2.4 mg/dL (1.8-2.4); POTASSIUM 3.7 mmol/L (3.5-5.1); SODIUM SERUM 139 mmol/L (136-145); UREA NITROGEN, BLOOD 45 mg/dL (7-18)
[2019-08-26] MEDS: INSULIN REGULAR, HUMAN 100 UNIT/ML 3 ML VIAL SQ PRN ×3 (06:29→17:41)
[2019-08-26] MEDS: BLOOD SUGAR DIAGNOSTIC 1 EACH STRIP IN SCH ×3 (06:29→17:40)
[2019-08-26 06:32] LABS: CREATINE KINASE, TOTAL 1051 U/L (26-192)
--- NOTE | 2019-08-26 07:30 | NUR ---
RN OPENING NOTE Received patient in bed HOB elevated. Patient is obtunded. No signs of distress. On trach and vent Portex 7 AC 10 TV 500 Fi)2 40% Peep %. Tolerating well. Tele reading SR 90s. Patient has multiple dressings on lower extremities. On GT feeding Nepro 40cc/hr no residual. Patient has R Hand IV line. Safety measure reinforced. Call light within reach. Bed on locked and lowest position. Will cont to monitor.
[2019-08-26] MEDS: LEVETIRACETAM SOL (5 ML) 100 MG/ML UDC GT SCH ×2 (08:30→21:15)
[2019-08-26] MEDS: LACTOBACILLUS RHAMNOSUS GG 1 EACH CAP.SPRINK GT SCH (08:30)
[2019-08-26] MEDS: CHLORHEXIDINE GLUCONATE 15 ML UDC MM SCH (08:30)
[2019-08-26] MEDS: CADEXOMER IODINE 40 GM TUBE TP SCH (08:31)
[2019-08-26] MEDS: HYDROXYCHLOROQUINE 200 MG TABLET PO SCH ×2 (08:31→16:06)
[2019-08-26] MEDS: DOCUSATE SODIUM 100 MG CAPSULE PO SCH ×2 (08:31→16:06)
[2019-08-26] MEDS: MUPIROCIN OINT 2% 22 GM TUBE SCH ×2 (08:31→21:17)
[2019-08-26] MEDS: BRIMONIDINE TARTRATE OPHT SOLN 5 ML BOTTLE OP SCH ×3 (08:31→16:06)
[2019-08-26] MEDS: Z GUARD REMEDY 2 OZ OINT TP SCH (08:32)
[2019-08-26] MEDS: ALBUTEROL FS 2.5 MG/3 ML VIAL.NEB IH SCH ×2 (08:40→14:11)
[2019-08-26] MEDS ORDERED: IV NS 0.9% 1,000 ML BAG IV ONE (13:00)
--- NOTE | 2019-08-26 15:15 | NUR ---
RN NOTE Informed Dr. Chin regarding lactic acid rising from 5.3 yesterday to 6.2 today. Awaiting response. Will follow up.
[2019-08-26] MEDS: NEPRO 1,000 ML BOTTLE GT PRN (15:33)
[2019-08-26] MEDS: ACETAMINOPHEN 325 MG TABLET PO PRN (17:45)
--- NOTE | 2019-08-26 18:47 | NUR ---
RN CLOSING NOTE Patient is in bed. Appears calm and relaxed. Patient is obtunded. On trach and vent. No signs of distress. Patient is on GTube feeding Nepro 40ml/hr x24 hrs. Tolerating well. No residual. Patient has a R hand IV line, patent. Tele reading SR 92bpm. Changed dressing as ordered. Tolerated well. Patient has L arm AV fistula. Dressing changed as ordered. Suctioned trach and mouth PRN. Tolerated well. Cont on antibiotic therapy no signs of adverse reaction. Safety measures reinforced. Call light within reach. Bed locked and on lowest position. Will endorse to film processing shift supervisor nurse for belinda.
[2019-08-26] MEDS: AZITHROMYCIN 500 MG in IV D5W 250 ML IV SCH (20:09)
[2019-08-26] MEDS: LATANOPROST EYE DROP 0.005% 2.5 ML BOTTLE EACHEYE SCH (21:15)
[2019-08-26] MEDS: INSULIN GLARGINE, 100 UNIT/ML CARTRIDGE SQ SCH (21:17)
--- NOTE | 2019-08-26 21:49 | NUR ---
RN NOTE NOTED WITH LACTIC ACID OF 6.2 TRENDING UPWARDS FROM 4.9 EARLIER THIS MORNING. NOTIFIED GIGI QURESHI (SANDOR) DIRECTOR PRISON.
--- NOTE | 2019-08-26 22:13 | NUR ---
RN NOTE GASTROENTEROLOGY PHYSICIAN TITUS CALLED BACK REGARDING CURRENT LACTIC ACID LEVEL WITH NO NEW ORDERS.
--- NOTE | 2019-08-26 22:35 | NUR ---
RN NOTE ENDORSED PT TO LAWRENCE KEBEDE FOR CONTINUATION OF CARE.
--- NOTE | 2019-08-26 23:00 | NUR ---
TELE/RN OPENING NOTES:] Received report from LAWRENCE Hicks. Received patient in bed HOB elevated. Patient is obtunded. No signs of distress. On trach and vent Portex 7 AC 10 TV 500 Fi)2 40% Peep 5%. Tolerating well. Tele reading SR 90s. Patient has multiple dressings on lower extremities. On GT feeding Nepro 40cc/hr no residual. Patient has R Hand IV line #22G. Safety measure reinforced. Call light within reach. Bed on locked and lowest position. Will cont to monitoring patient accordingly.
[2019-08-27] VITALS (10 sets, daily range): BP systolic 80–123; BP diastolic 31–64
[2019-08-27] MEDS: BLOOD SUGAR DIAGNOSTIC 1 EACH STRIP IN SCH ×4 (00:23→18:14)
[2019-08-27] MEDS: INSULIN REGULAR, HUMAN 100 UNIT/ML 3 ML VIAL SQ PRN ×4 (00:40→18:13)
[2019-08-27] MEDS: PIPERACILLIN /TAZOBACTAM 2.25 G in IV D5W 50 ML IV SCH ×3 (01:32→16:38)
--- NOTE | 2019-08-27 04:32 | NUR ---
TELE/RN NOTES: RECEIVED CALL FROM LAB FOR BLOOD CULTURE. GRAM STAIN PRELIMINARY POSITIVE COCCI IN CLUSTERS. WILL INFORM DR. GIGI QURESHI.
--- NOTE | 2019-08-27 05:12 | NUR ---
TELE/RN NOTES: DR. QURESHI CALLED BACK. MADE AWARE OF RESULTS OF BLOOD CULTURE. NO NEW ORDERS FOR NOW. WILL CONTINUE TO MONITOR.
--- NOTE | 2019-08-27 06:05 | NUR ---
RN NOTES MARY FROM [facility] CALLED TO RELAY [facility] RESULT OF 14.0. Yadira QURESHI NP NOTIFIED WITH NEW ORDERS. WILL RELAY RESULT TO ONCOMING NURSE FOR ROUNDING
--- NOTE | 2019-08-27 06:55 | NUR ---
TELE/RN CLOSING NOTES: Patient in bed HOB elevated. Patient is obtunded. No signs of distress. On trach and vent Portex 7 AC 10 TV 500 Fi)2 40% Peep 5%. Tolerating well. Tele reading SR 90s. Patient has multiple dressings on lower extremities. On GT feeding Nepro 40cc/hr no residual. Patient has R Hand IV line #22G. CRITICAL LAB VALUES RELAYED TO DR. YU. NO NEW ORDERS. RELAYED TO INCOMING NURSE. Safety measure reinforced. Call light within reach. Bed on locked and lowest position. Will endorse to day shift for belinda.
[2019-08-27] MEDS: ALBUTEROL FS 2.5 MG/3 ML VIAL.NEB IH SCH ×3 (07:35→19:33)
--- NOTE | 2019-08-27 07:36 | NUR ---
RN OPENING NOTES RECEIVED PATIENT FROM PM NURSE, PATIENT RESTING IN BED, HOB ELEVATED, PT IS OBTUNDED, ON MECHANICAL VENTILATOR WITH SETTINGS ORDERED. ON TELE MONITOR, SINUS RHYTHM IN THE 90S NOTED. G TUBE FEEDING NEPRO RUNNING, TOLERATING WELL. IV ON RIGHT HAND #22, INTACT, PATENT, AND FLUSHED WELL. SAFETY MAINTAINED, CALL LIGHT WITHIN REACH, WILL CONTINUE TO MONITOR.
[2019-08-27 07:40] LABS: CALCIUM, SERUM 9.3 mg/dL (8.5-10.1); CREATININE 5.9 mg/dL (0.6-1.3); MAGNESIUM 2.6 mg/dL (1.8-2.4); POTASSIUM 3.6 mmol/L (3.5-5.1)
[2019-08-27 07:45] LABS: PHOSPHORUS 0.7 mg/dL (2.5-4.9)
--- NOTE | 2019-08-27 07:46 | NUR ---
BREATHING TX NOT GIVEN DUE TO COVID-19 R/O. RESULTS PENDING.
--- NOTE | 2019-08-27 08:00 | NUR ---
RN NOTE CRITICAL LAB VALUES RELAYED TO DR MALDONADO. GLUCOSE OF 555 FROM MORNING BLOOD DRAW AND PHOSPHORUS OF 0.[address] MALDONADO. NO CALL BACK AT THE MOMENT AND NO NEW ORDERS. BS RECHECKED VIA FINGER STICK, BS OF 366, REPORTED EVERYTHING TO MD INCLUDING THE [facility] RESULTS. WILL CONTINUE TO MONITOR.
[2019-08-27 08:09] LABS: IRON, SERUM 36 ug/dl (50-175); TOTAL IRON BINDING CAPACITY 78 ug/dl (250-450)
[2019-08-27] MEDS ORDERED: EPOETIN ALFA (10,000 UNIT) 10,000 UNIT/ML VIAL IV ONE (09:00)
[2019-08-27] MEDS: CHLORHEXIDINE GLUCONATE 15 ML UDC MM SCH (09:27)
[2019-08-27 09:28] LABS: BASOPHILS % (AUTO) 0.6 % (0.0-2.0); EOSINOPHILS % (AUTO) 0.4 % (0.0-6.0); LYMPHOCYTES % (AUTO) 22.3 % (20.0-44.0); MEAN CORPUSCULAR HGB CONC 33 g/dl (31.0-36.0); MEAN CORPUSCULAR VOLUME 91 fL (82-100); MONOCYTES # (AUTO) 0.5 /CMM (0.1-1.30); MONOCYTES % (AUTO) 10.7 % (2.0-12.0); PLATELET COUNT (AUTO) 129 /CMM (150-450); WHITE BLOOD COUNT (AUTO) 4.5 K/uL (4.3-11.0)
[2019-08-27] MEDS: LEVETIRACETAM SOL (5 ML) 100 MG/ML UDC GT SCH ×2 (09:28→20:54)
[2019-08-27] MEDS: MUPIROCIN OINT 2% 22 GM TUBE SCH ×2 (09:28→20:55)
[2019-08-27] MEDS: DOCUSATE SODIUM 100 MG CAPSULE PO SCH ×2 (09:28→16:38)
[2019-08-27] MEDS: HYDROXYCHLOROQUINE 200 MG TABLET PO SCH ×2 (09:28→16:38)
[2019-08-27] MEDS: LACTOBACILLUS RHAMNOSUS GG 1 EACH CAP.SPRINK GT SCH (09:28)
[2019-08-27] MEDS: BRIMONIDINE TARTRATE OPHT SOLN 5 ML BOTTLE OP SCH ×3 (09:29→16:38)
[2019-08-27] MEDS: CADEXOMER IODINE 40 GM TUBE TP SCH (09:30)
[2019-08-27] MEDS: Z GUARD REMEDY 2 OZ OINT TP SCH (09:30)
--- NOTE | 2019-08-27 09:32 | NUR ---
VERIFIED WITH CHARGE NURSE SOON THAT IT IS OK TO GIVE EPOGEN WITH HEMOGLOBIN VALUE OF 7.4 FROM YESTERDAYS LAB DRAW. MORNING LAB HAD TO BE REDRAWN AT 0900. SAFETY MAINTAINED, CALL LIGHT WITHIN REACH, MONITORING CLOSELY.
[2019-08-27 09:39] LABS: RED BLOOD CELL COUNT(AUTO) 1.89 MIL/uL (4.0-5.2)
[2019-08-27 09:44] LABS: HEMOGLOBIN 5.7 g/dL (11.5-14.8)
[2019-08-27 09:45] LABS: HEMATOCRIT 17 % (33-45)
[2019-08-27 09:48] LABS: D-DIMER 2.62 mg/L(FEU (0.17-0.50)
[2019-08-27 11:24] LABS: BAND % (MANUAL) 1 % (0.0-5.0); LYMPHOCYTES % (MANUAL) 23 % (16-48); MONOCYTES % (MANUAL) 10 % (0-11.0); NEUTROPHILS % (MANUAL) 66 (42-76)
--- NOTE | 2019-08-27 12:27 | NUR ---
RN NOTE INSULIN IS BEING HELD BECAUSE PATIENT IS UNDERGOING DIALYSIS AT THE MOMENT AND PER DIALYSIS NURSE, THE BS WILL DROP WITH THE DIALYSIS, ADVISED TO HOLD IT, CLARIFIED WITH CHARGE NURSE, OK TO HOLD. WILL RECHECK THE BS LEVEL POST DIALYSIS. SAFETY MAINTAINED, CALL LIGHT WITHIN REACH, WILL CONTINUE TO MONITOR.
[2019-08-27] MEDS ORDERED: NEUTRA PHOS 1 POWD.PACKET PO ONE (13:00)
--- NOTE | 2019-08-27 14:00 | NUR ---
RN NOTE ORDERED 2 PACKS OF RBC GIVEN DURING DIALYSIS. PATIENT TOLERATED WELL, STABLE CONDITION.
--- NOTE | 2019-08-27 16:34 | NUR ---
SCHEDULED BREATHING TX NOT GIVEN DUE TO COVID-19 R/O. RESULTS PENDING.
--- NOTE | 2019-08-27 19:21 | NUR ---
RN CLOSING NOTES PATIENT IN STABLE CONDITION, ALL PATIENT NEEDS MET, ALL SCHEDULED MEDICATIONS GIVEN ON TIME. NO ACUTE DISTRESS NOTED. 2 UNITS OF BLOOD WAS GIVEN WITH DIALYSIS, PATIENT TOLERATED WELL. NO ADVERSE EFFECTS WERE PRESENT. WOUND CARE WAS RENDERED ORDERED, PATIENT KEPT CLEAN AND DRY. G TUBE RUNNING AT 40CC/HR, TOLERATED WELL, NO RESIDUAL NOTED. SAFETY MAINTAINED, CALL LIGHT WITHIN REACH, ENDORSED TO PM NURSE TO CONTINUE CARE,
--- NOTE | 2019-08-27 19:45 | NUR ---
BRICKMASON SUPERVISOR NOTES PATIENT IN BED, EYES CLOSED. SHOWS NO SIGNS OF ACUTE RESPIRATORY DISTRESS, NO ACUTE PAIN. BREATHING EVEN AND UNLABORED ON PORTEX 7 AC 10, TV 500, FIO2 40 AND PEEP 5. ON TELE SR 89. GTUBE FEEDING ON NEPHRO 40 CC/HR, NO RESIDUALS, FLUSHING WELL. L AV FISTULA CLEAN DRY AND INTACT. AND R HAND 22G CLEAN DRY AND INTACT. SHOW NO SIGNS OF INFILTRATION, NO REDNESS. SAFETY PRECAUTIONS IN PLACE. BED IN LOWEST POSITION, LOCKED, AND CALL LIGHT KEPT WITHIN REACH. WILL CONTINUE TO MONITOR.
[2019-08-27] MEDS ORDERED: AZITHROMYCIN 250 MG TABLET PO SCH (20:00)
[2019-08-27] MEDS: ACETAMINOPHEN 325 MG TABLET PO PRN (20:59)
[2019-08-27] MEDS: INSULIN GLARGINE, 100 UNIT/ML CARTRIDGE SQ SCH (22:45)
[2019-08-27] MEDS: LATANOPROST EYE DROP 0.005% 2.5 ML BOTTLE EACHEYE SCH (22:46)
[2019-08-28] VITALS (7 sets, daily range): BP systolic 114–136; BP diastolic 45–71
[2019-08-28] MEDS: PIPERACILLIN /TAZOBACTAM 2.25 G in IV D5W 50 ML IV SCH ×2 (00:12→09:19)
[2019-08-28] MEDS: BLOOD SUGAR DIAGNOSTIC 1 EACH STRIP IN SCH ×5 (00:13→23:25)
[2019-08-28] MEDS: INSULIN REGULAR, HUMAN 100 UNIT/ML 3 ML VIAL SQ PRN ×4 (00:42→18:13)
[2019-08-28] MEDS: ALBUTEROL FS 2.5 MG/3 ML VIAL.NEB IH SCH ×4 (01:13→19:30)
[2019-08-28] MEDS: ACETAMINOPHEN 325 MG TABLET PO PRN (04:10)
[2019-08-28] MEDS: NEPRO 1,000 ML BOTTLE GT PRN (04:19)
--- NOTE | 2019-08-28 06:55 | NUR ---
PRODUCTION HELPER NOTES PATIENT IN BED, EYES CLOSED. SHOWS NO SIGNS OF ACUTE RESPIRATORY DISTRESS, NO ACUTE PAIN. BREATHING EVEN AND UNLABORED ON MV. GTUBE FEEDING ON NEPHRO 40 CC/HR, NO RESIDUALS, FLUSHING WELL. L AV FISTULA CLEAN DRY AND INTACT. R HAND 22G CLEAN DRY AND INTACT. SHOW NO SIGNS OF INFILTRATION, NO REDNESS. ALL DUE MEDICATIONS GIVEN. SAFETY PRECAUTIONS IN PLACE. BED IN LOWEST POSITION, LOCKED, AND CALL LIGHT KEPT WITHIN REACH. WILL ENDORSE TO ONCOMING NURSE.
[2019-08-28 06:59] LABS: BASOPHILS % (AUTO) 0.3 % (0.0-2.0); EOSINOPHILS % (AUTO) 0.6 % (0.0-6.0); HEMATOCRIT 25 % (33-45); HEMOGLOBIN 8.4 g/dL (11.5-14.8); LYMPHOCYTES # (AUTO) 1.9 /CMM (0.8-4.8); MEAN CORPUSCULAR HGB CONC 34 g/dl (31.0-36.0); MEAN CORPUSCULAR VOLUME 91 fL (82-100); MONOCYTES # (AUTO) 0.8 /CMM (0.1-1.30); MONOCYTES % (AUTO) 10.8 % (2.0-12.0); NEUTROPHILS # (AUTO) 4.8 /CMM (1.8-8.9); NEUTROPHILS % (AUTO) 63.3 % (43.0-81.0); PLATELET COUNT (AUTO) 119 /CMM (150-450); RED BLOOD CELL COUNT(AUTO) 2.72 MIL/uL (4.0-5.2); WHITE BLOOD COUNT (AUTO) 7.6 K/uL (4.3-11.0)
[2019-08-28 07:40] LABS: CALCIUM, SERUM 9.8 mg/dL (8.5-10.1); CREATININE 5.1 mg/dL (0.6-1.3); MAGNESIUM 2.6 mg/dL (1.8-2.4); POTASSIUM 3.5 mmol/L (3.5-5.1)
--- NOTE | 2019-08-28 07:40 | NUR ---
RN OPENING NOTE: RECEIVED PATIENT RESTING IN BED THIS MORNING. PATIENT IS NON-VERBAL AND OBTUNDED. PATIENT ON TRACH SETTINGS PORTEX 7 AC 10, TV 500, FIO2 40 AND PEEP 5. NO SIGNS OF ACUTE RESPIRATORY DISTRESS NOTED. PATIENT IS ON TELE, SINUS RHYTHM 84. PATIENT HAS GT, C/D/I, NO SIGNS OF COMPLICATIONS NOTED, RUNNING NEPRO 40CC/HR NO RESIDUAL. PATIENT HAS LAV FISTULA, C/D/I, NO SIGNS OF COMPLICATIONS NOTED, NO SIGNS OF BLEEDING NOTED, PATIENT WAS DIALYZED ON 08/27/2019. #22 ON RIGHT HAND, C/D/I, NO SIGNS OF COMPLICATIONS NOTED. SAFETY MEASURES IMPLEMENTED, BED IN LOWEST POSITION, LOCKED, SIDE RAILS UP X2, CALL LIGHT WITHIN REACH. WILL CONTINUE TO MONITOR PATIENT FOR CHANGES.
[2019-08-28 07:46] LABS: PHOSPHORUS 0.9 mg/dL (2.5-4.9)
[2019-08-28] MEDS: LEVETIRACETAM SOL (5 ML) 100 MG/ML UDC GT SCH ×2 (09:18→21:45)
[2019-08-28] MEDS: HYDROXYCHLOROQUINE 200 MG TABLET PO SCH (09:18)
[2019-08-28] MEDS: LACTOBACILLUS RHAMNOSUS GG 1 EACH CAP.SPRINK GT SCH (09:18)
[2019-08-28] MEDS: DOCUSATE SODIUM LIQ 100 MG/10 ML UDC GT SCH ×2 (09:19→17:19)
[2019-08-28] MEDS: CHLORHEXIDINE GLUCONATE 15 ML UDC MM SCH (09:19)
[2019-08-28] MEDS: BRIMONIDINE TARTRATE OPHT SOLN 5 ML BOTTLE OP SCH ×3 (09:20→17:20)
[2019-08-28] MEDS: MUPIROCIN OINT 2% 22 GM TUBE SCH ×2 (09:20→21:47)
[2019-08-28] MEDS: Z GUARD REMEDY 2 OZ OINT TP SCH (09:21)
[2019-08-28] MEDS: CADEXOMER IODINE 40 GM TUBE TP SCH (09:21)
[2019-08-28] MEDS ORDERED: NEUTRA PHOS 1 POWD.PACKET PO ONE (13:00)
--- NOTE | 2019-08-28 13:25 | NUR ---
PT RCVD CARIE'D ON MECHANICAL VENT WITH CHARTED SETTINGS. SX DONE. PT TRACH IS PATENT AND SECURE. VENT ALARMS ARE ON AND AUDIBLE. VENT PLUGGED INTO RED OUTLET. AMBU BAG AT BEDSIDE. NO SOB NOTED. Addendum: 08/28/19 at 1325 by CELINA SHORT RT Amended: Links added.
--- NOTE | 2019-08-28 19:31 | NUR ---
RN CLOSING NOTE: PATIENT REMAINS IN BED. NO SIGNS OF ACUTE RESPIRATORY DISTRESS NOTED. PATIENT IS ON TELE, SINUS RHYTHM 72. NO SIGNS OF ACUTE DISTRESS NOTED. SAFETY MEASURES IMPLEMENTED, BED IN LOWEST POSITION, LOCKED, SIDE RAILS UP X2, CALL LIGHT WITHIN REACH. ENDORSED TO LAWRENCE ANDERSEN FOR CONTINUITY OF CARE.
--- NOTE | 2019-08-28 19:54 | NUR ---
RT NOTE PT RECEIVED TRACHED ON MECHANICAL VENTILATION ON CHARTED SETTINGS. AMBU BAG @ BEDSIDE. SX DONE, TRACH SECURED AND PATENT. ALARMS ON AND AUDIBLE. NO DISTRESS NOTED AT THIS TIME. CONT. PULSE OX CONNECTED. WILL MONITOR. Addendum: 08/28/19 at 5 by KEVIN DANIEL RT Amended: Links added.
--- NOTE | 2019-08-28 20:30 | NUR ---
POINTER MACHINE OPERATOR NOTES RECEIVED PT IN BED, OBTUNDED. TRACHED AND VENTED BERE WELL. NO SOB NOTED. ON TELE MONITOR SINUS TACHY. GEN EDEMA ON BUE, BLE 2+. CONTRACTURES ON ALL EXTREMITIES. INCONTINENT OF BOWEL AND URINE IN A DIAPER. MODERATE AMOUNT OF LIQUID BOWEL NO ODOR, DARK BROWN COLOR. ALL DRESSINGS ASSESSED AND CHANGED PRESCRIBED.IV ACCESS ON R ARM SL. BLEEDING NOTED ON THE TORI ON HD FISTULA. ALL SAFETY MEASURES IN PLACE. WILL CONT TO MONITOR
[2019-08-28] MEDS: LATANOPROST EYE DROP 0.005% 2.5 ML BOTTLE EACHEYE SCH (21:53)
--- NOTE | 2019-08-28 23:00 | NUR ---
OPERATIONS TEAM LEADER NOTES L HD FISTULA SITE IS SATURATED IN BLOOD. HIGHWAY PAINTER HELPER AWARE. DR NOTIFIED. ER NURSE BEL PAGED TO CHANGE DRESSING AND STOP THE BLEEDING. ALL SAFETY MEASURES IN PLACE. EXTREMITY ELEVATED. DRESSING REINFORCED. BED LOCKED AND IN LOWEST POSITION. WILL CONT TO MONITOR.
[2019-08-28] MEDS ORDERED: GELATIN SPONGE,ABSORBABLE 1 SPONGE SPONGE TP ONE (23:11)
[2019-08-28] MEDS: INSULIN GLARGINE, 100 UNIT/ML CARTRIDGE SQ SCH (23:25)
--- NOTE | 2019-08-28 23:27 | NUR ---
RN NOTE GIGI QURESHI PELLETIZER CALLED BACK REGARDING [facility]. NOTED WITH ABOUT 100ML OF BLOOD LOSS. SITE WRAPPED WITH SURGICAL DRESSING AND PATRICIA WRAP BY ER NURSE. NO FURTHER BLEEDING NOTED. PELLETIZER WITH ORDER TO DO STAT H&H. ORDER NOTED AND CARRIED OUT.
[2019-08-29] VITALS (8 sets, daily range): BP systolic 84–147; BP diastolic 27–73
[2019-08-29] MEDS: ALBUTEROL FS 2.5 MG/3 ML VIAL.NEB IH SCH ×4 (01:44→20:09)
[2019-08-29] MEDS: BLOOD SUGAR DIAGNOSTIC 1 EACH STRIP IN SCH ×3 (06:44→17:25)
[2019-08-29 06:58] LABS: BASOPHILS % (AUTO) 0.4 % (0.0-2.0); EOSINOPHILS % (AUTO) 1.3 % (0.0-6.0); HEMATOCRIT 23 % (33-45); HEMOGLOBIN 7.7 g/dL (11.5-14.8); LYMPHOCYTES % (AUTO) 11.9 % (20.0-44.0); MEAN CORPUSCULAR HGB CONC 33 g/dl (31.0-36.0); MEAN CORPUSCULAR VOLUME 91 fL (82-100); MONOCYTES # (AUTO) 0.6 /CMM (0.1-1.30); MONOCYTES % (AUTO) 6.6 % (2.0-12.0); NEUTROPHILS # (AUTO) 6.8 /CMM (1.8-8.9); NEUTROPHILS % (AUTO) 79.8 % (43.0-81.0); PLATELET COUNT (AUTO) 138 /CMM (150-450); RED BLOOD CELL COUNT(AUTO) 2.53 MIL/uL (4.0-5.2); WHITE BLOOD COUNT (AUTO) 8.5 K/uL (4.3-11.0)
[2019-08-29 07:28] LABS: CALCIUM, SERUM 9.7 mg/dL (8.5-10.1); CREATININE 6.1 mg/dL (0.6-1.3); MAGNESIUM 2.5 mg/dL (1.8-2.4); POTASSIUM 3.9 mmol/L (3.5-5.1)
--- NOTE | 2019-08-29 07:30 | NUR ---
CLOTH INSPECTOR AM NOTES RECEIVED PT IN BED, OBTUNDED. PORTEX 7 TRACH TO MECHANICAL ENT WITH SETTINGS ORDERED, TOLERATING WELL. FEBRILE TEMP 101.7, COOLING MEASURES GIVEN. TYLENOL GIVEN. NO SOB NOTED. ON TELE MONITOR SINUS RHYTHM ON MONITOR HR 89. NO SIGNS OF PAIN, NO GRIMACING. GEN EDEMA ON BUE, BLE 2+. CONTRACTURES ON ALL EXTREMITIES. INCONTINENT OF BOWEL AND URINE IN A DIAPER. WILL DO DRESSINGS CHANGE PRESCRIBED.IV ACCESS ON R HAND G22 FLUSHES WELL. SITE CLEAR. NO BLEEDING NOTED ON THE TORI HD FISTULA. DRESSING CDI. ALL SAFETY MEASURES IN PLACE. WILL CONT TO MONITOR
[2019-08-29 07:49] LABS: PHOSPHORUS 0.7 mg/dL (2.5-4.9)
[2019-08-29] MEDS ORDERED: Sodium Phosphate 15 MMOL in IV NS 0.9% 245 ML IV SCH (08:30)
--- NOTE | 2019-08-29 09:30 | NUR ---
DOOR PULLER NOTES DUE MEDS GIVEN
[2019-08-29] MEDS: Z GUARD REMEDY 2 OZ OINT TP SCH (09:46)
[2019-08-29] MEDS: DOCUSATE SODIUM LIQ 100 MG/10 ML UDC GT SCH ×2 (09:46→17:29)
[2019-08-29] MEDS: CHLORHEXIDINE GLUCONATE 15 ML UDC MM SCH (09:46)
[2019-08-29] MEDS: LEVETIRACETAM SOL (5 ML) 100 MG/ML UDC GT SCH ×2 (09:46→22:10)
[2019-08-29] MEDS: BRIMONIDINE TARTRATE OPHT SOLN 5 ML BOTTLE OP SCH ×3 (09:49→17:29)
[2019-08-29] MEDS: NEPRO 1,000 ML BOTTLE GT PRN (09:53)
[2019-08-29] MEDS: MUPIROCIN OINT 2% 22 GM TUBE SCH ×2 (10:06→22:12)
[2019-08-29] MEDS: CADEXOMER IODINE 40 GM TUBE TP SCH (10:07)
[2019-08-29] MEDS: LACTOBACILLUS RHAMNOSUS GG 1 EACH CAP.SPRINK GT SCH (10:08)
[2019-08-29] MEDS: INSULIN REGULAR, HUMAN 100 UNIT/ML 3 ML VIAL SQ PRN ×2 (13:11→17:31)
[2019-08-29 17:14] LABS: BILIRUBIN,DIRECT 0.8 mg/dL (0.0-0.2); BILIRUBIN,TOTAL 1.2 mg/dL (0.2-1.0)
--- NOTE | 2019-08-29 19:39 | NUR ---
SPOOLER OPERATOR NOTES. ALL NEEDS MET. PT RESTING COMFORTABLY. TURNED AND REPOSITIONED Q 2 HOURS. PM CARE DONE.EARLIER. ENDORSED TO NEXT SHIFT FOR SHERRY.
[2019-08-29] MEDS: LATANOPROST EYE DROP 0.005% 2.5 ML BOTTLE EACHEYE SCH (22:10)
[2019-08-30] VITALS: BP 130/63
[2019-08-30] MEDS: INSULIN GLARGINE, 100 UNIT/ML CARTRIDGE SQ SCH ×2 (00:15→21:51)
[2019-08-30] MEDS: INSULIN REGULAR, HUMAN 100 UNIT/ML 3 ML VIAL SQ PRN ×4 (00:17→18:14)
[2019-08-30] MEDS: BLOOD SUGAR DIAGNOSTIC 1 EACH STRIP IN SCH ×4 (00:18→18:09)
[2019-08-30] MEDS: ALBUMIN 25% 25 GM in PREMIX 1 EA IV PRN (00:26)
[2019-08-30] MEDS: ALBUTEROL FS 2.5 MG/3 ML VIAL.NEB IH SCH ×4 (01:01→20:19)
[2019-08-30 04:00] VITALS: BP 128/52
[2019-08-30 06:36] LABS: BASOPHILS % (AUTO) 0.3 % (0.0-2.0); EOSINOPHILS % (AUTO) 3.9 % (0.0-6.0); HEMATOCRIT 21 % (33-45); LYMPHOCYTES # (AUTO) 1.3 /CMM (0.8-4.8); LYMPHOCYTES % (AUTO) 20.1 % (20.0-44.0); MEAN CORPUSCULAR HGB CONC 33 g/dl (31.0-36.0); MEAN CORPUSCULAR VOLUME 92 fL (82-100); MONOCYTES # (AUTO) 0.4 /CMM (0.1-1.30); MONOCYTES % (AUTO) 6.9 % (2.0-12.0); NEUTROPHILS # (AUTO) 4.4 /CMM (1.8-8.9); NEUTROPHILS % (AUTO) 68.8 % (43.0-81.0); PLATELET COUNT (AUTO) 133 /CMM (150-450); RED BLOOD CELL COUNT(AUTO) 2.24 MIL/uL (4.0-5.2); WHITE BLOOD COUNT (AUTO) 6.5 K/uL (4.3-11.0)
[2019-08-30 06:59] LABS: HEMOGLOBIN 6.9 g/dL (11.5-14.8)
[2019-08-30 07:05] LABS: CALCIUM, SERUM 9.3 mg/dL (8.5-10.1); CREATININE 4.5 mg/dL (0.6-1.3); MAGNESIUM 2.3 mg/dL (1.8-2.4); POTASSIUM 3.2 mmol/L (3.5-5.1)
[2019-08-30 07:10] LABS: PHOSPHORUS 0.7 mg/dL (2.5-4.9)
[2019-08-30 08:00] VITALS: BP_SYST 135; BP_DIAS 38; BP_DIAS 58
[2019-08-30] MEDS: LACTOBACILLUS RHAMNOSUS GG 1 EACH CAP.SPRINK GT SCH (08:05)
[2019-08-30] MEDS: LEVETIRACETAM SOL (5 ML) 100 MG/ML UDC GT SCH ×2 (08:05→21:48)
[2019-08-30] MEDS: CHLORHEXIDINE GLUCONATE 15 ML UDC MM SCH (08:05)
[2019-08-30] MEDS: DOCUSATE SODIUM LIQ 100 MG/10 ML UDC GT SCH ×2 (08:05→17:17)
[2019-08-30] MEDS: MUPIROCIN OINT 2% 22 GM TUBE SCH ×2 (08:08→21:47)
[2019-08-30] MEDS: CADEXOMER IODINE 40 GM TUBE TP SCH (08:08)
[2019-08-30] MEDS: Z GUARD REMEDY 2 OZ OINT TP SCH (08:09)
[2019-08-30] MEDS: BRIMONIDINE TARTRATE OPHT SOLN 5 ML BOTTLE OP SCH ×3 (08:12→17:20)
[2019-08-30 09:52] LABS: BAND % (MANUAL) 4 % (0.0-5.0); EOSINOPHILS % (MANUAL) 3 % (0-4); LYMPHOCYTES % (MANUAL) 13 % (16-48); METAMYELOCYTES % 1 % (0-0); MONOCYTES % (MANUAL) 1 % (0-11.0); MYELOCYTES % 1 % (0-0); NEUTROPHILS % (MANUAL) 77 (42-76)
[2019-08-30] MEDS ORDERED: POTASSIUM PHOSPHATE MM 15 MMOL in IV NS 0.9% 250 ML IV SCH (10:30)
[2019-08-30] MEDS: POTASSIUM PHOSPHATE MM 7.5 MMOL in IV NS 0.9% 100 ML IV SCH ×2 (11:20→14:17)
[2019-08-30 12:00] VITALS: BP 107/57
[2019-08-30] MEDS: NEPRO 1,000 ML BOTTLE GT PRN (12:32)
[2019-08-30 16:00] VITALS: BP 112/53
[2019-08-30 20:00] VITALS: BP 118/54
--- NOTE | 2019-08-30 20:14 | NUR ---
LEAD POURER NOTES RECEIVED PT IN BED, OBTUNDED. TRACHED AND VENTED BERE WELL. NO SOB NOTED. ON TELE MONITOR SR. GEN EDEMA ON BUE, BLE 2+. CONTRACTURES ON ALL EXTREMITIES. INCONTINENT OF BOWEL AND URINE, IN A DIAPER. . ALL DRESSINGS ASSESSED AND CHANGED PRESCRIBED.IV ACCESS ON R ARM SL. THE TORI HD PORT DRESSING INTACT. ALL SAFETY MEASURES IN PLACE. WILL CONT TO MONITOR
--- NOTE | 2019-08-30 21:30 | NUR ---
AUTOMOTIVE SERVICE DIRECTOR NOTES PT'S TORI, THE SITE OF AV SHUNT IS OOZING BLOOD. DRESSING CHANGED. BERE WELL. TRANSCRIPT CLERK IS AWARE. KEPT CLEAN AND DRY. BED LOCKED AND IN LOWEST POSITION. KEPT CLEAN AND DRY
[2019-08-30] MEDS ORDERED: GELATIN SPONGE,ABSORBABLE 1 SPONGE SPONGE TP ONE (21:47)
[2019-08-30] MEDS: LATANOPROST EYE DROP 0.005% 2.5 ML BOTTLE EACHEYE SCH (21:48)
[2019-08-30] MEDS: ACETAMINOPHEN 325 MG TABLET PO PRN (21:52)
[2019-08-31] VITALS: BP 114/63
[2019-08-31] MEDS: BLOOD SUGAR DIAGNOSTIC 1 EACH STRIP IN SCH ×4 (00:06→17:18)
[2019-08-31] MEDS: INSULIN REGULAR, HUMAN 100 UNIT/ML 3 ML VIAL SQ PRN ×4 (02:01→17:19)
[2019-08-31] MEDS: ALBUTEROL FS 2.5 MG/3 ML VIAL.NEB IH SCH ×4 (02:05→19:45)
--- NOTE | 2019-08-31 02:57 | NUR ---
RT NOTE Pt rec'd trached on [facility] vent on AC mode. Pt shows no signs of resp distress or sob. trach is patent and secured. Pt sx'd for thick mod amt of pale yellow secretions. Alarms are set and audible. Vent plugged into red outlet. Ambu bag bedside. Will continue to monitor. Addendum: 08/31/19 at 0258 by VITOR TILLMAN RT Amended: Links added.
[2019-08-31 04:00] VITALS: BP 131/58
--- NOTE | 2019-08-31 05:37 | NUR ---
DIRECTOR PATIENT FINANCIAL SERVICES NOTES LAB REPORT BLOOD CX: GRAM POSITIVE COCCI IN CLUSTERS. PT IN ABT THERAPY. WILL CONT TO MONITOR
--- NOTE | 2019-08-31 06:25 | NUR ---
WOOD BOAT BUILDER SUPERVISOR NOTES PT IN BED TRACHED AND VENTED. BERE WELL. ON TELE MONITOR WITH SR. INCONTINENT OF BOWEL AND URINE. BMX1 LIQUID AND BLACKISH IN COLOR. TORI AV SHUNT DRESSING INTACT AND SATURATED BLOOD ON THE DRESSING NOTED. KEPT CLEAN AND DRY. ALL NEEDS MET. BED LOCKED AND LOWEST POSITION. WILL ENDORSE TO THE ONCOMING NURSE.
--- NOTE | 2019-08-31 07:31 | NUR ---
GEOTHERMAL ELECTRICAL ENGINEER OPENING NOTES PATIENT IN BED RESTING COMFORTABLY. PATIENT IN NO ACUTE DISTRESS. NO SOB NOTED. PATIENT BREATHING IS EVEN AND UNLABORED. PATIENT ON VENT, TOLERATING VENT SETTINGS WELL. PATIENT HOB IS ELEVATED. BED ALARM IS ON. PATIENT ON CARDIAC MONITORING READING SINUS RHYTHM HR 93. PATIENT SAFETY PRECAUTIONS IN PLACE. PATIENT BED IS LOCKED AND IN LOWEST POSITION. CALL LIGHT WITHIN REACH. WILL CONTINUE TO MONITOR.
[2019-08-31 07:51] LABS: BASOPHILS % (AUTO) 0.4 % (0.0-2.0); EOSINOPHILS % (AUTO) 2.3 % (0.0-6.0); HEMATOCRIT 22 % (33-45); HEMOGLOBIN 7.2 g/dL (11.5-14.8); LYMPHOCYTES # (AUTO) 1.5 /CMM (0.8-4.8); LYMPHOCYTES % (AUTO) 17.6 % (20.0-44.0); MEAN CORPUSCULAR HGB CONC 33 g/dl (31.0-36.0); MEAN CORPUSCULAR VOLUME 93 fL (82-100); MONOCYTES # (AUTO) 0.6 /CMM (0.1-1.30); MONOCYTES % (AUTO) 7.1 % (2.0-12.0); NEUTROPHILS # (AUTO) 6.4 /CMM (1.8-8.9); NEUTROPHILS % (AUTO) 72.6 % (43.0-81.0); PLATELET COUNT (AUTO) 170 /CMM (150-450); RED BLOOD CELL COUNT(AUTO) 2.32 MIL/uL (4.0-5.2); WHITE BLOOD COUNT (AUTO) 8.8 K/uL (4.3-11.0)
[2019-08-31 07:59] LABS: IRON, SERUM 47 ug/dl (50-175); TOTAL IRON BINDING CAPACITY 89 ug/dl (250-450)
[2019-08-31 08:00] VITALS: BP 138/58
[2019-08-31 08:39] LABS: FERRITIN 3174 ng/mL (8-388)
[2019-08-31] MEDS: CHLORHEXIDINE GLUCONATE 15 ML UDC MM SCH (08:47)
[2019-08-31] MEDS: LEVETIRACETAM SOL (5 ML) 100 MG/ML UDC GT SCH ×2 (08:47→21:51)
[2019-08-31] MEDS: DOCUSATE SODIUM LIQ 100 MG/10 ML UDC GT SCH ×2 (08:48→16:21)
[2019-08-31] MEDS: LACTOBACILLUS RHAMNOSUS GG 1 EACH CAP.SPRINK GT SCH (08:48)
[2019-08-31] MEDS: Z GUARD REMEDY 2 OZ OINT TP SCH (08:49)
[2019-08-31] MEDS: BRIMONIDINE TARTRATE OPHT SOLN 5 ML BOTTLE OP SCH ×3 (08:49→16:21)
[2019-08-31] MEDS: MUPIROCIN OINT 2% 22 GM TUBE SCH ×2 (08:51→22:07)
[2019-08-31] MEDS: CADEXOMER IODINE 40 GM TUBE TP SCH (08:51)
--- NOTE | 2019-08-31 09:35 | NUR ---
Pt received on current setting with no SOB noted. HHN Tx tolerated well with no adverse reaction. Airway is patent and secure with no signs of respiratory distress. Vent plugged into red outlet with alarms on and audible. Suction as needed. Addendum: 08/31/19 at 0937 by PATRICIA JACK RT Amended: Links added.
[2019-08-31 12:00] VITALS: BP 144/51
[2019-08-31 16:00] VITALS: BP_SYST 121; BP_SYST 124; BP_DIAS 60; BP_DIAS 74
--- NOTE | 2019-08-31 16:57 | NUR ---
LADIES SUIT OPERATOR NOTE GERALD PATTEN FROM INFECTIOUS DISEASE ASKED TO NOTIFY GIGI QURESHI REGARDING POSSIBLE REMOVAL OF TORI AV SHUNT DUE TO POSSIBLE SOURCE OF INFECTION. SPOKE WITH GIGI QURESHI NP AND PER GIGI VASCULAR CONSULT SAW THE PATIENT AND OPTED NOT TO DO ANYTHING TO AV SHUNT AT THIS TIME.
[2019-08-31] MEDS: NEPRO 1,000 ML BOTTLE GT PRN (17:32)
--- NOTE | 2019-08-31 17:50 | NUR ---
TECHNOLOGY SALES CONSULTANT NOTE PATIENT HAD HEMODIALYSIS WITH SALLY BRAVO. ONCE SALLY WAS REMOVING DIALYSIS NEEDLE PATIENT TORI AV SHUNT STARTED TO BLEED. AFTER PUTTING PRESSURE, AV SHUNT BLEEDING STOPPED. PATIENT BP 126/47 AND HR 96. ER DOCTOR AND VASCULAR DOCTOR CAME AND ASSESSED PATIENT. NO SUTURES NEEDED AT THIS TIME. CHARGE NURSE SAEID SPOKE WITH GIGI QURESHI NOTIFIED OF OCCURRENCE. PER GIGI QURESHI WILL NOTIFY VASCULAR AGAIN AND DISCUSS PLAN OF CARE. WILL CONTINUE TO MONITOR AV SHUNT BLEEDING AT THIS TIME.
[2019-08-31] MEDS: CLOTRIMAZOLE 1% 15 GM TUBE TP SCH (18:04)
[2019-08-31] MEDS ORDERED: LIDOCAINE 1%-EPI 1:100,000 20 ML VIAL ONE (18:15)
--- NOTE | 2019-08-31 19:22 | NUR ---
MOTOR WINDER CLOSING NOTES PATIENT IN BED RESTING COMFORTABLY. PATIENT IN NO ACUTE DISTRESS. NO SOB NOTED. PATIENT BREATHING IS EVEN AND UNLABORED. PATIENT ON VENT, TOLERATING VENT SETTINGS WELL. PATIENT HOB IS ELEVATED. BED ALARM IS ON. PATIENT ON CARDIAC MONITORING READING SINUS RHYTHM HR 95. PATIENT SAFETY PRECAUTIONS IN PLACE. PATIENT TORI AV SHUNT NOTED WITH NO BLEEDING AT THIS TIME. DRESSING AROUND AV SHUNT IS DRY AND INTACT. PATIENT KEPT CLEAN, DRY AND COMFORTABLE THROUGHOUT SHIFT. PATIENT BED IS LOCKED AND IN LOWEST POSITION. CALL LIGHT WITHIN REACH. WILL ENDORSE CARE TO PM SHIFT FOR SHERRY.
[2019-08-31 20:00] VITALS: BP 107/38
[2019-08-31 21:04] LABS: OCCULT BLOOD STOOL NEGATIVE (NEGATIVE)
[2019-08-31 21:05] LABS: HEMATOCRIT 23 % (33-45); HEMOGLOBIN 7.6 g/dL (11.5-14.8); MEAN CORPUSCULAR HGB CONC 34 g/dl (31.0-36.0); MEAN CORPUSCULAR VOLUME 93 fL (82-100); PLATELET COUNT (AUTO) 205 /CMM (150-450); RED BLOOD CELL COUNT(AUTO) 2.44 MIL/uL (4.0-5.2); WHITE BLOOD COUNT (AUTO) 15.7 K/uL (4.3-11.0)
--- NOTE | 2019-08-31 21:21 | NUR ---
RN NOTE ATTEMPTED TO CONTACT SHAILESH SEGURA TO OBTAIN CONSENT FOR DIALYSIS CATHETER INSERTION. CALLED NUMBER ON FILE X 5 BUT NO ANSWER. NOTIFIED MARKY CHARGE NURSE AND ROM FERNANDES NP.
--- NOTE | 2019-08-31 22:00 | NUR ---
RN CHULA CONTACTED SHAILESH SEGURA AND OBTAINED TELEPHONE CONSENT FOR INSERTION OF DIALYSIS CENTRAL VENOUS CATHETER. WITNESSED BY LAWRENCE MATHIAS.
[2019-08-31] MEDS: LATANOPROST EYE DROP 0.005% 2.5 ML BOTTLE EACHEYE SCH (22:08)
[2019-08-31] MEDS: INSULIN GLARGINE, 100 UNIT/ML CARTRIDGE SQ SCH (22:15)
[2019-09-01] VITALS (10 sets, daily range): BP systolic 81–140; BP diastolic 30–76
[2019-09-01] MEDS: BLOOD SUGAR DIAGNOSTIC 1 EACH STRIP IN SCH ×4 (00:44→18:00)
[2019-09-01] MEDS: INSULIN REGULAR, HUMAN 100 UNIT/ML 3 ML VIAL SQ PRN ×4 (00:47→19:07)
--- NOTE | 2019-09-01 00:56 | NUR ---
RN NOTE DR. GREEN AT BEDSIDE AND INSERTED LEFT FEMORAL HD CATHETER WITHOUT COMPLICATIONS.
[2019-09-01] MEDS: ALBUTEROL FS 2.5 MG/3 ML VIAL.NEB IH SCH ×4 (01:31→19:39)
--- NOTE | 2019-09-01 06:47 | NUR ---
RN CLOSING NOTE PT IN BED IN SEMI WOODARD'S POSITION. ON MECHANICAL VENTILATOR AND TOLERATING SETTINGS WELL. RESPIRATIONS EVEN AND UNLABORED. TRACH MID LINE AND IN PLACE. LEFT UPPER ARM AVF WITH PRESSURE DRESSING AND NOTED WITHOUT SIGNS OF BLEEDING. NEW LEFT FEMORAL CENTRAL VENOUS CATHETER IN PLACE AND WITHOUT SIGNS OF COMPLICATIONS. WITH GT RUNNING @ 45CC/HOUR AND TOLERATING WELL WITHOUT GASTRIC RESIDUAL. CALL LIGHT WITHIN REACH, SAFETY MEASURES IN PLACE, WILL ENDORSE TO MORNING SHIFT FOR CONTINUATION OF CARE.
[2019-09-01 07:24] LABS: ALBUMIN 2.3 g/dL (3.4-5.0); CALCIUM, SERUM 9.1 mg/dL (8.5-10.1); CREATININE 4.2 mg/dL (0.6-1.3); MAGNESIUM 2.4 mg/dL (1.8-2.4); POTASSIUM 4.1 mmol/L (3.5-5.1); TOTAL PROTEIN, SERUM 7.4 g/dL (6.4-8.2)
--- NOTE | 2019-09-01 07:30 | NUR ---
power system electrical engineer Notes Received patient from senior game developer. Vented. Portex 7 SIMV TV500 50% FIO2 PEEP 5. Patient is obtunded. SR 70s. BLE 2+ Edema BMx1. Last HD 08/30 2L removed. Multiple skin issues on feet, sacrum, and AV fistula bleeding. Nephro running at 45cc an hour. R hand SL 22g. Bed in lowest position, call light within reach, all measures taken to ensure client safety, will continue to monitor.
[2019-09-01 08:44] LABS: BASOPHILS % (AUTO) 0.4 % (0.0-2.0); EOSINOPHILS % (AUTO) 1.7 % (0.0-6.0); LYMPHOCYTES # (AUTO) 1.4 /CMM (0.8-4.8); LYMPHOCYTES % (AUTO) 14.2 % (20.0-44.0); MEAN CORPUSCULAR HGB CONC 34 g/dl (31.0-36.0); MEAN CORPUSCULAR VOLUME 94 fL (82-100); MONOCYTES # (AUTO) 0.9 /CMM (0.1-1.30); MONOCYTES % (AUTO) 9.1 % (2.0-12.0); NEUTROPHILS # (AUTO) 7.1 /CMM (1.8-8.9); NEUTROPHILS % (AUTO) 74.6 % (43.0-81.0); PLATELET COUNT (AUTO) 206 /CMM (150-450); RED BLOOD CELL COUNT(AUTO) 2.08 MIL/uL (4.0-5.2); WHITE BLOOD COUNT (AUTO) 9.6 K/uL (4.3-11.0)
[2019-09-01 08:54] LABS: HEMOGLOBIN 6.6 g/dL (11.5-14.8)
[2019-09-01 08:55] LABS: HEMATOCRIT 20 % (33-45)
[2019-09-01] MEDS: CHLORHEXIDINE GLUCONATE 15 ML UDC MM SCH (08:59)
[2019-09-01] MEDS: LACTOBACILLUS RHAMNOSUS GG 1 EACH CAP.SPRINK GT SCH (08:59)
[2019-09-01] MEDS: DOCUSATE SODIUM LIQ 100 MG/10 ML UDC GT SCH ×2 (08:59→17:37)
[2019-09-01] MEDS: LEVETIRACETAM SOL (5 ML) 100 MG/ML UDC GT SCH ×2 (08:59→20:28)
[2019-09-01] MEDS: MUPIROCIN OINT 2% 22 GM TUBE SCH ×2 (09:00→20:29)
[2019-09-01] MEDS: BRIMONIDINE TARTRATE OPHT SOLN 5 ML BOTTLE OP SCH ×3 (09:02→17:39)
[2019-09-01] MEDS: CADEXOMER IODINE 40 GM TUBE TP SCH (09:07)
[2019-09-01] MEDS: CLOTRIMAZOLE 1% 15 GM TUBE TP SCH ×2 (09:08→17:40)
[2019-09-01] MEDS: Z GUARD REMEDY 2 OZ OINT TP SCH (09:08)
--- NOTE | 2019-09-01 09:30 | NUR ---
catering coordinator Notes Clive Roe COTTON SEED CULLER informed of critical lab hbg 6.6 and hct 20. Patient is currently saturating 99% on 40% FIO2. BP WNL 133/76. Will continue to monitor.
[2019-09-01 10:05] LABS: BAND % (MANUAL) 4 % (0.0-5.0); LYMPHOCYTES % (MANUAL) 16 % (16-48); MONOCYTES % (MANUAL) 4 % (0-11.0); MYELOCYTES % 4 % (0-0); NEUTROPHILS % (MANUAL) 72 (42-76)
[2019-09-01] MEDS ORDERED: NEUTRA PHOS 1 POWD.PACKET GT ONE (13:00)
[2019-09-01] MEDS ORDERED: VANCOMYCIN 1 GM in IV D5W 250 ML IV ONE ×2 (16:00→20:00)
[2019-09-01] MEDS ORDERED: VANCOMYCIN 500 MG in IV D5W 100 ML IV ONE (16:30)
[2019-09-01] MEDS ORDERED: IV NS 0.9% 500 ML IV ONE (17:00)
--- NOTE | 2019-09-01 17:01 | NUR ---
radar operator Notes Patient VS 66/46 HR 82. Clive Roe ASSOCIATE TEACHER immediately notified. Ordered x1 bolus of NS 500mL. 1 unit of PRBCs started per low h/h 6.6. Provider authorized ICU transfer if BP not stable. Provider notified of that earlier. Margarita charge nurse from ICU reassessed patient. BP with readjustment of BP cuff currently 100/45. At this time she feels the transfer of the patient is not appropriate due to the fact that BP is now higher. Vital signs machine set on interval of 15 min. Will continue to monitor.
--- NOTE | 2019-09-01 17:35 | NUR ---
INFORMED BY HOUSE SUP RE: PATIENT HYPOTENSION. PATIENT ASSESSED AT BEDSIDE. PATIENT BP RECHECKED-SBP>110. SR 80'S. NO DISTRESS NOTED. ONGOING BLOOD TRANSFUSION AT THIS TIME. SPOKE TO GIGI QURESHI, HOSPITALIST ON THE PHONE. INFORMED OF PATIENT CURRENT VITAL SIGNS. PER ACNP, OKAY TO KEEP PATIENT IN RAJ, COMPLETE NS 500 ML BOLUS. SPOKE TO PRIMARY RNLUZ REGARDING ORDER. WILL FOLLOW . 1800-RECEIVED CALL FROM NEREYDA, RAJ CHARGE. PATIENT SBP>120'S AT THIS TIME.
[2019-09-01] MEDS: NEPRO 1,000 ML BOTTLE GT PRN (21:32)
[2019-09-01] MEDS: INSULIN GLARGINE, 100 UNIT/ML CARTRIDGE SQ SCH (22:38)
[2019-09-01] MEDS: LATANOPROST EYE DROP 0.005% 2.5 ML BOTTLE EACHEYE SCH (22:39)
[2019-09-02] VITALS: BP 103/47
[2019-09-02] MEDS: BLOOD SUGAR DIAGNOSTIC 1 EACH STRIP IN SCH ×4 (00:03→18:52)
[2019-09-02] MEDS: ALBUTEROL FS 2.5 MG/3 ML VIAL.NEB IH SCH ×4 (01:00→20:18)
[2019-09-02 04:00] VITALS: BP 128/52
[2019-09-02] MEDS: INSULIN REGULAR, HUMAN 100 UNIT/ML 3 ML VIAL SQ PRN ×4 (05:47→18:57)
--- NOTE | 2019-09-02 06:35 | NUR ---
MYCOLOGY TEACHER NOTES PT AWAKE, NON VERBAL WITH SAME VENT SETTINGS. NOT IN ANY DISTRESS. NO SOB NOTED. NO S/SX OF ANY PAIN OR DISCOMFORT AT THIS TIME. ON TELE SR @ 80 WITH IV-HL PATENT & INTACT. WITH GTF INFUSING WELL. AM CARE DONE. MONITORED ACCORDINGLY. CALL LIGHT WITHIN REACH. BED IN LOWEST POSITION. SR UP X 3 WITH BED ALARM ON FOR SAFETY. WILL ENDORSE TO NEXT SHIFT.
[2019-09-02] MEDS ORDERED: VANCOMYCIN 500 MG in IV D5W 100 ML IV PRN (07:00)
[2019-09-02 07:02] LABS: BASOPHILS % (AUTO) 0.1 % (0.0-2.0); HEMATOCRIT 23 % (33-45); HEMOGLOBIN 7.4 g/dL (11.5-14.8); LYMPHOCYTES # (AUTO) 1.5 /CMM (0.8-4.8); LYMPHOCYTES % (AUTO) 17.7 % (20.0-44.0); MEAN CORPUSCULAR HGB CONC 33 g/dl (31.0-36.0); MEAN CORPUSCULAR VOLUME 92 fL (82-100); MONOCYTES # (AUTO) 0.6 /CMM (0.1-1.30); MONOCYTES % (AUTO) 7.2 % (2.0-12.0); NEUTROPHILS # (AUTO) 6.2 /CMM (1.8-8.9); PLATELET COUNT (AUTO) 212 /CMM (150-450); RED BLOOD CELL COUNT(AUTO) 2.45 MIL/uL (4.0-5.2); WHITE BLOOD COUNT (AUTO) 8.6 K/uL (4.3-11.0)
[2019-09-02 07:12] LABS: CALCIUM, SERUM 8.7 mg/dL (8.5-10.1); CREATININE 5.2 mg/dL (0.6-1.3); PHOSPHORUS 3.2 mg/dL (2.5-4.9); POTASSIUM 4.4 mmol/L (3.5-5.1)
[2019-09-02 08:00] VITALS: BP_SYST 128; BP_SYST 129; BP_DIAS 52
[2019-09-02] MEDS: LEVETIRACETAM SOL (5 ML) 100 MG/ML UDC GT SCH ×2 (09:30→21:11)
[2019-09-02] MEDS: DOCUSATE SODIUM LIQ 100 MG/10 ML UDC GT SCH ×2 (09:30→18:56)
[2019-09-02] MEDS: Z GUARD REMEDY 2 OZ OINT TP SCH (09:30)
[2019-09-02] MEDS: CHLORHEXIDINE GLUCONATE 15 ML UDC MM SCH (09:30)
[2019-09-02] MEDS: LACTOBACILLUS RHAMNOSUS GG 1 EACH CAP.SPRINK GT SCH (09:30)
[2019-09-02] MEDS: CADEXOMER IODINE 40 GM TUBE TP SCH (09:31)
[2019-09-02] MEDS: BRIMONIDINE TARTRATE OPHT SOLN 5 ML BOTTLE OP SCH ×3 (09:33→17:19)
[2019-09-02] MEDS: MUPIROCIN OINT 2% 22 GM TUBE SCH ×2 (09:33→21:11)
[2019-09-02] MEDS: CLOTRIMAZOLE 1% 15 GM TUBE TP SCH ×2 (09:34→17:19)
[2019-09-02 12:00] VITALS: BP 119/57
[2019-09-02] MEDS ORDERED: VANC500F2 IV (12:55)
[2019-09-02] MEDS ORDERED: RXVAN XX (12:55)
[2019-09-02 16:00] VITALS: BP_SYST 112; BP_SYST 115; BP_DIAS 52
[2019-09-02] MEDS ORDERED: ALBUMIN 25% 25 GM in PREMIX 1 EA IV PRN (16:45)
[2019-09-02 20:00] VITALS: BP 101/61
--- NOTE | 2019-09-02 20:02 | NUR ---
RENAL DIALYSIS TECHNICIAN OPENING NOTES RECEIVED PATIENT IN BED. ON ISOLATION FOR MRSA IN BLOOD AND NARES. PATIENT IS OBTUNDED, NONVERBAL, OPENS EYES. ON MECHANICAL VENTILATOR, PORTEX #7, AC 10, TV 500, FIO2 40, PEEP 5. NO RESPIRATORY DISTRESS NOTED. NO S/S PAIN NOTED, EXTERNAL TELE MONITOR READS SINUS RHYTHM HR 91. IN NO APPARENT DISTRESS. IV ACCESS IN RIGHT HAND #22 PATENT AND SALINE LOCKED.PATIENT ALSO HAS A LEFT FEMORAL CATH D/T TORI AV FISTULA NOT WORKING PROPERLY. GTUBE IS PRESENT, ASPIRATED, 4ML RESIDUAL, FLUSHED 200ML, NO REISTANCE, RUNNING NEPRO @40ML/HR. BED IS LOW AND LOCKED, HOB ELEVATED IN SEMI FOWLERS, SIDE RIALS UP X3, BED ALARM ON. CALL LIGHT WITHIN REACH. WILL CONTINUE TO MONITOR.
[2019-09-02] MEDS: LATANOPROST EYE DROP 0.005% 2.5 ML BOTTLE EACHEYE SCH (21:13)
[2019-09-02] MEDS: INSULIN GLARGINE, 100 UNIT/ML CARTRIDGE SQ SCH (21:21)
[2019-09-02] MEDS: NEPRO 1,000 ML BOTTLE GT PRN (21:22)
[2019-09-03] VITALS (11 sets, daily range): BP systolic 86–118; BP diastolic 36–77
[2019-09-03] MEDS: BLOOD SUGAR DIAGNOSTIC 1 EACH STRIP IN SCH ×5 (00:05→23:39)
[2019-09-03] MEDS: INSULIN REGULAR, HUMAN 100 UNIT/ML 3 ML VIAL SQ PRN ×5 (00:11→23:42)
[2019-09-03] MEDS: ALBUTEROL FS 2.5 MG/3 ML VIAL.NEB IH SCH ×4 (02:07→19:54)
--- NOTE | 2019-09-03 04:47 | NUR ---
RT NOTE Pt rec'd trached on [facility] vent on AC mode settings as charted. pt shows no signs of resp distress or sob. trach is patent and secured. sx'd for thick mod amt of pale yellow secretions. alarms are set and audible. vent plugged into red outlet. Ambu bag bedside. Will continue to monitor closely. Addendum: 09/03/19 at 0447 by VITOR TILLMAN RT Amended: Links added.
--- NOTE | 2019-09-03 06:46 | NUR ---
MANAGER COST CLOSING NOTES PATIENT IN BED. ON ISOLATION FOR MRSA IN BLOOD AND NARES. PATIENT IS OBTUNDED, NONVERBAL, OPENS EYES. ON MECHANICAL VENTILATOR, PORTEX #7, AC 10, TV 500, FIO2 40, PEEP 5. NO RESPIRATORY DISTRESS NOTED. NO S/S PAIN NOTED, EXTERNAL TELE MONITOR READS SINUS RHYTHM HR 91. NO DISTRESS NOTED. IV ACCESS MAINTAINED IN RIGHT HAND #22 PATENT AND SALINE LOCKED. LEFT FEMORAL CATH IS MAINTAINED. GTUBE IS MAINTAINED RUNNING NEPRO @40ML/HR. BED IS LOW AND LOCKED, HOB ELEVATED IN SEMI FOWLERS, SIDE RIALS UP X3, BED ALARM ON. CALL LIGHT WITHIN REACH. WILL ENDORSE TO NEXT SHIFT
[2019-09-03] MEDS: CHLORHEXIDINE GLUCONATE 15 ML UDC MM SCH (08:19)
[2019-09-03] MEDS: LACTOBACILLUS RHAMNOSUS GG 1 EACH CAP.SPRINK GT SCH (08:19)
[2019-09-03] MEDS: LEVETIRACETAM SOL (5 ML) 100 MG/ML UDC GT SCH ×2 (08:19→20:23)
[2019-09-03] MEDS: DOCUSATE SODIUM LIQ 100 MG/10 ML UDC GT SCH ×2 (08:19→17:00)
[2019-09-03] MEDS: CADEXOMER IODINE 40 GM TUBE TP SCH (08:20)
[2019-09-03] MEDS: MUPIROCIN OINT 2% 22 GM TUBE SCH ×2 (08:20→20:29)
[2019-09-03] MEDS: BRIMONIDINE TARTRATE OPHT SOLN 5 ML BOTTLE OP SCH ×3 (08:20→17:20)
[2019-09-03] MEDS: Z GUARD REMEDY 2 OZ OINT TP SCH (08:21)
[2019-09-03 08:41] LABS: BASOPHILS % (AUTO) 0.3 % (0.0-2.0); EOSINOPHILS % (AUTO) 2.4 % (0.0-6.0); LYMPHOCYTES # (AUTO) 1.6 /CMM (0.8-4.8); LYMPHOCYTES % (AUTO) 16.9 % (20.0-44.0); MEAN CORPUSCULAR HGB CONC 35 g/dl (31.0-36.0); MEAN CORPUSCULAR VOLUME 92 fL (82-100); MONOCYTES # (AUTO) 0.6 /CMM (0.1-1.30); MONOCYTES % (AUTO) 6.1 % (2.0-12.0); NEUTROPHILS # (AUTO) 6.9 /CMM (1.8-8.9); NEUTROPHILS % (AUTO) 74.3 % (43.0-81.0); PLATELET COUNT (AUTO) 235 /CMM (150-450); RED BLOOD CELL COUNT(AUTO) 2.16 MIL/uL (4.0-5.2); WHITE BLOOD COUNT (AUTO) 9.2 K/uL (4.3-11.0)
[2019-09-03 08:44] LABS: CREATININE 4.2 mg/dL (0.6-1.3); POTASSIUM 3.4 mmol/L (3.5-5.1)
[2019-09-03 08:47] LABS: HEMATOCRIT 20 % (33-45); HEMOGLOBIN 6.9 g/dL (11.5-14.8)
[2019-09-03] MEDS: CLOTRIMAZOLE 1% 15 GM TUBE TP SCH ×2 (09:00→17:20)
--- NOTE | 2019-09-03 10:00 | NUR ---
RN NOTE LICENSED MASS REAL ESTATE APPRAISER aware of HGb 6.9. Received order to transfuse 1 unit PRBC.
[2019-09-03 10:22] LABS: LYMPHOCYTES % (MANUAL) 14 % (16-48); MONOCYTES % (MANUAL) 7 % (0-11.0); NEUTROPHILS % (MANUAL) 79 (42-76)
--- NOTE | 2019-09-03 11:36 | NUR ---
RN NOTE Per Dr. Jacinto, blood transfusion will be given with next HD.
--- NOTE | 2019-09-03 14:34 | NUR ---
RN NOTE box tender Jasmine at the bedside HD and blood transfusion. Will continue to monitor. Patient remains stable, showing no s/sx of tranfusion reaction or SOB. Will continue to monitor.
--- NOTE | 2019-09-03 16:11 | NUR ---
RN NOTE HD complete. 800ml out. Patient remains stable, will continue to monitor.
--- NOTE | 2019-09-03 17:20 | NUR ---
RN NOTE NON-ADMIN COLACE DUE TO PATIENT HAVING LOOSE BM.
--- NOTE | 2019-09-03 18:50 | NUR ---
RN CLOSING NOTE Patient is resting in bed, A/O x0, obtunded, opens eyes. No signs of acute distress, no SOB, saturating 200% on mechanical vent. Portex #7, SC 10, FiO2 40% PEEP 5. Tele monitor SR 80s-90s. IV line in the right hand s/l is clean and intact. Left femoral HD cath noted. TORI AV fistula pressure dressing in place, fistula had episode of bleeding 2 days ago. G-tube feeding running nepro @40ml/hour. All patient needs met, all due medications given. Dressings changed. Patient kept clean and dry throughout shift. Bed is in lowest position, side rails x3 in upright position, fall safety, aspiration and seizure precautions in place. Will endorse to terrestrial ecologist.
--- NOTE | 2019-09-03 19:30 | NUR ---
TRIAL PARALEGAL NOTES RECEIVED ON BED WITH HOB ELEVATED,GT FEEDING IN PROGRESS AT 40ML/HR RATE,NO RESIDUAL NOTED.WITH RIGHT HAND SALINE LOCK INTACT AND PATENT,LEFT FELORAL HD CATH FOR HD TREATMENTON TRACH TO VENT,SETTINGS TOLERATED WELL.REPOSITION PER PROTOCOL.ISOLATION PRECAUTION FOR MRSA NARES.WILL CONTINUE TO MONITOR STATUS.
--- NOTE | 2019-09-03 20:04 | NUR ---
RT NOTE Pt rec'd trached on [facility] vent on AC mode settings as charted. pt shows no signs of resp distress or sob. trach is patent and secured. sx'd for thick mod amt of pale yellow secretions. alarms are set and audible. vent plugged into red outlet. Ambu bag bedside. Will continue to monitor closely. Addendum: 09/03/19 at 2004 by VITOR TILLMAN RT Amended: Links added.
--- NOTE | 2019-09-03 22:00 | NUR ---
LINING LAYER NOTES DUE LANTUS 46 UNITS ADMINISTER SQ FOR BLOOD SUGAR 176.GT FEEDING IN PROGRESS.
[2019-09-03] MEDS: LATANOPROST EYE DROP 0.005% 2.5 ML BOTTLE EACHEYE SCH (22:10)
[2019-09-03] MEDS: INSULIN GLARGINE, 100 UNIT/ML CARTRIDGE SQ SCH (22:22)
[2019-09-04] VITALS: BP 98/52
--- NOTE | 2019-09-04 02:00 | NUR ---
SOAP MIXER NOTES REPORTED BY LAB,BLOOD CULTURE RESULT,GRAM POSITIVE COCCI IN CLUSTERS,ALREADY ON ANTIBIOTIC.
[2019-09-04] MEDS: ALBUTEROL FS 2.5 MG/3 ML VIAL.NEB IH SCH ×4 (02:38→19:21)
[2019-09-04] MEDS: NEPRO 1,000 ML BOTTLE GT PRN (03:12)
[2019-09-04 04:00] VITALS: BP 109/53
--- NOTE | 2019-09-04 04:00 | NUR ---
DIRECTOR MULTIPLE SCLEROSIS CENTER NOTES MORNING CARE RENDERED,TOLERATED WELL,REPOSITION PER PROTOCOL
[2019-09-04] MEDS: BLOOD SUGAR DIAGNOSTIC 1 EACH STRIP IN SCH ×3 (05:28→17:13)
--- NOTE | 2019-09-04 05:28 | NUR ---
SUPERVISING BAILIFF NOTES ACCU-CHECK BLOOD SUGAR CHECK 130,NO INSULIN COVERAGE.
--- NOTE | 2019-09-04 06:31 | NUR ---
STUNT DOUBLE NOTES NO SIGNIFICANT CHANGE IN STATUS.AFEBRILE.REPOSITION PER PROTOCOL,GT FEEDING TOLERATED WELL.IN NO ACUTE DISTRESS.
--- NOTE | 2019-09-04 07:00 | NUR ---
MANUFACTURER AGENT PATIENT IS RESTING COMFORTABLY IN BED VENT PRESCRIBED VENT SETTINGS, OBTUNDED , WITH GENERALIZED EDEMA, SR 90'S. BED REST, SACRAL WOUND WITH 5 TH [place] WOUND, HEEL WOUNDS, ON NEPHRO @ 40 ML/ HR. R HAND 22 AND FEMORAL HD CATH. BED LOCKED AND LOWEST POSITIONB CALL LIGHT WITH IN REACH ALL SAFETY MEASURE IMPLEMENTED PER HOSPITAL POLICY
[2019-09-04 08:00] VITALS: BP 106/44
[2019-09-04] MEDS: CHLORHEXIDINE GLUCONATE 15 ML UDC MM SCH (09:11)
[2019-09-04] MEDS: LEVETIRACETAM SOL (5 ML) 100 MG/ML UDC GT SCH ×2 (09:12→21:45)
[2019-09-04] MEDS: BRIMONIDINE TARTRATE OPHT SOLN 5 ML BOTTLE OP SCH ×3 (09:12→16:28)
[2019-09-04] MEDS: DOCUSATE SODIUM LIQ 100 MG/10 ML UDC GT SCH ×2 (09:12→16:28)
[2019-09-04] MEDS: LACTOBACILLUS RHAMNOSUS GG 1 EACH CAP.SPRINK GT SCH (09:12)
[2019-09-04] MEDS: MUPIROCIN OINT 2% 22 GM TUBE SCH ×2 (09:12→21:46)
[2019-09-04] MEDS: CLOTRIMAZOLE 1% 15 GM TUBE TP SCH ×2 (09:13→16:28)
[2019-09-04] MEDS: Z GUARD REMEDY 2 OZ OINT TP SCH (09:13)
[2019-09-04] MEDS: CADEXOMER IODINE 40 GM TUBE TP SCH (09:15)
[2019-09-04 12:00] VITALS: BP 103/29
[2019-09-04] MEDS: INSULIN REGULAR, HUMAN 100 UNIT/ML 3 ML VIAL SQ PRN ×2 (12:05→17:13)
[2019-09-04 16:00] VITALS: BP 108/26
--- NOTE | 2019-09-04 18:14 | NUR ---
LARRY CAR OPERATOR NO SIGNIFICANT CHANGE AT THIS TIME, NO PAIN, NO ACUTE RESPIRATORY DISTRESS. BED LOCKED LOWEST POSITION CALL LIGHT WITH IN REACH ALL SAFETY MEASURE IMPLEMENTED PER HOSPITAL POLICY, PATIENT TURN Q2H,
--- NOTE | 2019-09-04 19:40 | NUR ---
DIE HOLDER PATIENT IN BED SLEEPING AT THIS TIME, OBTUNDED, ON MECHANICAL VENTILATOR, TOLERATED SETTINGS WELL, NSR IN TELE MONITOR WITH HR 90'S, BED REST, GT IN PLACED WITH NEPHRO @ 40 ML/ HR, TOLERATED WELL, R HAND 22 AND FEMORAL HD CATH IN PLACED, NO ABNORMALITIES NOTED AT SITE, BED LOCKED AND LOWEST POSITION, CALL LIGHT WITH IN REACH, ALL SAFETY MEASURE IMPLEMENTED, ISOLATION PRECAUTIONS IN PLACED, WILL CONTINUE TO MONITOR CLOSELY.
[2019-09-04 20:00] VITALS: BP 112/72
--- NOTE | 2019-09-04 20:52 | NUR ---
PT RECEIVED ON CURRENT SETTINGS WITH NO SIGNS OF RESPIRATORY DISTRESS. AIRWAY IS PATENT AND SECURE WITH NO SOB NOTED. VENT IS PLUGGED IN TO RED OUTLET WITH ALARMS ON AND AUDIBLE. SUCTION PT NEEDED. WILL CONTINUE TO MONITOR. Addendum: 09/04/19 at 2053 by PATRICIA JACK RT Amended: Links added.
[2019-09-04] MEDS: INSULIN GLARGINE, 100 UNIT/ML CARTRIDGE SQ SCH (22:09)
[2019-09-04] MEDS: LATANOPROST EYE DROP 0.005% 2.5 ML BOTTLE EACHEYE SCH (22:11)
[2019-09-05] VITALS: BP 124/60
[2019-09-05] MEDS: BLOOD SUGAR DIAGNOSTIC 1 EACH STRIP IN SCH ×5 (00:20→23:37)
[2019-09-05] MEDS: INSULIN REGULAR, HUMAN 100 UNIT/ML 3 ML VIAL SQ PRN ×5 (01:04→23:38)
--- NOTE | 2019-09-05 01:20 | NUR ---
RN NOTES, AT 0000 BLOOD SUGAR LEVEL 185MG/dL , 3 UNITS GIVEN PER SLIDING SCALE COVERAGE, ACCIDENTALLY INPUT 175MG/dL AFTER QUICKLY SAVE IT, UNABLE TO CHANGE IT.
[2019-09-05] MEDS: ALBUTEROL FS 2.5 MG/3 ML VIAL.NEB IH SCH ×4 (01:34→19:49)
[2019-09-05 04:00] VITALS: BP 127/68
--- NOTE | 2019-09-05 06:26 | NUR ---
RN CLOSING TELE NOTES, PATIENT IN BED SLEEPING AT THIS TIME, OBTUNDED, ON MECHANICAL VENTILATOR, TOLERATED SETTINGS WELL, NO SIGNIFICANT CHANGE IN CONDITION DURING THE NIGHT, BED LOCKED AND LOWEST POSITION, CALL LIGHT WITH IN REACH, ALL SAFETY MEASURE IMPLEMENTED, ISOLATION PRECAUTIONS IN PLACED, WILL ENDORSE CONTINUITY OF CARE TO ONCOMING NURSE.
[2019-09-05 07:14] LABS: BASOPHILS % (AUTO) 0.5 % (0.0-2.0); HEMATOCRIT 23 % (33-45); HEMOGLOBIN 7.8 g/dL (11.5-14.8); LYMPHOCYTES # (AUTO) 1.4 /CMM (0.8-4.8); LYMPHOCYTES % (AUTO) 22.7 % (20.0-44.0); MEAN CORPUSCULAR HGB CONC 34 g/dl (31.0-36.0); MEAN CORPUSCULAR VOLUME 92 fL (82-100); MONOCYTES # (AUTO) 0.4 /CMM (0.1-1.30); MONOCYTES % (AUTO) 6.4 % (2.0-12.0); NEUTROPHILS # (AUTO) 4.2 /CMM (1.8-8.9); NEUTROPHILS % (AUTO) 68.4 % (43.0-81.0); PLATELET COUNT (AUTO) 280 /CMM (150-450); RED BLOOD CELL COUNT(AUTO) 2.51 MIL/uL (4.0-5.2); WHITE BLOOD COUNT (AUTO) 6.1 K/uL (4.3-11.0)
[2019-09-05 07:20] LABS: CALCIUM, SERUM 8.2 mg/dL (8.5-10.1); POTASSIUM 3.9 mmol/L (3.5-5.1)
--- NOTE | 2019-09-05 07:53 | NUR ---
RN OPENING NOTE: RECEIVED PATIENT IN BED THIS MORNING. PATIENT IS OBTUNDED. ON VENT, TOLERATING SETTINGS WELL. ON TELE MONITOR, SR 85. GT, NO SIGNS OF COMPLICATIONS NOTED, RUNNING NEPRO 40CC/HR, TOLERATING FEEDING WELL. #22 RIGHT HAND, C/D/I, NO SIGNS OF COMPLICATIONS NOTED, FLUSHES WELL. FEMORAL HD CATH, C/D/I. SAFETY MEASURES IMPLEMENTED, BED IN LOWEST POSITION, LOCKED, SIDE RAILS UP, CALL LIGHT WITHIN REACH. WILL CONTINUE TO MONITOR PATIENT FOR CHANGES.
[2019-09-05 08:00] VITALS: BP 134/64
[2019-09-05] MEDS: LACTOBACILLUS RHAMNOSUS GG 1 EACH CAP.SPRINK GT SCH (08:13)
[2019-09-05] MEDS: LEVETIRACETAM SOL (5 ML) 100 MG/ML UDC GT SCH ×2 (08:13→21:15)
[2019-09-05] MEDS: DOCUSATE SODIUM LIQ 100 MG/10 ML UDC GT SCH ×2 (08:13→16:46)
[2019-09-05] MEDS: CHLORHEXIDINE GLUCONATE 15 ML UDC MM SCH (08:13)
[2019-09-05] MEDS: MUPIROCIN OINT 2% 22 GM TUBE SCH ×2 (08:19→21:15)
[2019-09-05] MEDS: BRIMONIDINE TARTRATE OPHT SOLN 5 ML BOTTLE OP SCH ×3 (08:19→16:47)
[2019-09-05] MEDS: Z GUARD REMEDY 2 OZ OINT TP SCH (08:20)
[2019-09-05] MEDS: CLOTRIMAZOLE 1% 15 GM TUBE TP SCH ×2 (08:20→16:47)
[2019-09-05] MEDS: CADEXOMER IODINE 40 GM TUBE TP SCH (08:20)
[2019-09-05 12:00] VITALS: BP 106/53
--- NOTE | 2019-09-05 15:48 | NUR ---
PATIENT HAS A TEMP OF 100.6, CONTACTED SANDOR QURESHI TO INFORM HIM AND TO PLACE AN ORDER SINCE THERE'S NO PRN FOR INCREASED TEMP. AWAITING RESPONSE BACK. Addendum: 09/05/19 at 1742 by TANMAY SNOW RN GOT AN ORDER FOR ACETAMINOPHEN AND TO TO DO COVID TESTING X2 24 HOURS APART FOR SNF TO ACCEPT PATIENT BACK.
[2019-09-05 16:00] VITALS: BP 103/50
[2019-09-05] MEDS: NEPRO 1,000 ML BOTTLE GT PRN (16:05)
[2019-09-05] MEDS ORDERED: ACETAMINOPHEN 325 MG TABLET MC PRN (16:30)
[2019-09-05] MEDS: ACETAMINOPHEN 650 MG/20.3 ML UDC GT PRN (16:46)
--- NOTE | 2019-09-05 17:40 | NUR ---
GOT A CALL FROM LAB C/O AVANI THAT THEY HAVE TO RE-DRAW CULTURES D/T NOTED CLOTS.
--- NOTE | 2019-09-05 19:20 | NUR ---
RN CLOSING NOTE: PATIENT REMAINS IN BED. NO SIGNS OF RESPIRATORY DISTRESS NOTED. NO SIGNS OF ACUTE DISTRESS NOTED. TELE MONITOR SR 77. SAFETY MEASURES IMPLEMENTED, BED IN LOWEST POSITION, LOCKED, SIDE RAILS UP, CALL LIGHT WITHIN REACH. WILL ENDORSE TO ONCOMING RN FOR CONTINUITY OF CARE.
[2019-09-05 20:00] VITALS: BP 110/60
[2019-09-05 20:22] LABS: BILIRUBIN,DIRECT 0.4 mg/dL (0.0-0.2); BILIRUBIN,TOTAL 0.8 mg/dL (0.2-1.0)
[2019-09-05] MEDS: LATANOPROST EYE DROP 0.005% 2.5 ML BOTTLE EACHEYE SCH (21:16)
[2019-09-05] MEDS: INSULIN GLARGINE, 100 UNIT/ML CARTRIDGE SQ SCH (21:24)
[2019-09-06] VITALS: BP 110/63
[2019-09-06] MEDS: ALBUTEROL FS 2.5 MG/3 ML VIAL.NEB IH SCH ×3 (01:09→13:54)
[2019-09-06 04:00] VITALS: BP 131/86
--- NOTE | 2019-09-06 05:00 | NUR ---
RN NOTE NOTED PATIENT WITH BLEEDING ON TORI BANDAGE. UPON WOUND EXAMINATION, PATIENT BEGAN BLEEDING LARGE AMOUNT FROM AV FISTULA. BLEEDING CONTROLLED AND STOPPED WITH PRESSURE DRESSING WITH HELP FROM MULTIPLE RNS IN UNIT. ESTATE MANAGER ROM GREEN MADE AWARE WITH NO NEW ORDERS. VITALS STABLE. WILL CONTINUE TO MONITOR.
[2019-09-06] MEDS: BLOOD SUGAR DIAGNOSTIC 1 EACH STRIP IN SCH ×2 (06:25→12:38)
[2019-09-06] MEDS: INSULIN REGULAR, HUMAN 100 UNIT/ML 3 ML VIAL SQ PRN ×2 (06:25→13:24)
--- NOTE | 2019-09-06 07:02 | NUR ---
RN CLOSING NOTE ALL DUE MEDS GIVEN AND TOLERATED WELL. PATIENT KEPT CLEAN, DRY, AND COMFORTABLE. WILL ENDORSE TO AM SHIFT RN FOR CONTINUATION OF CARE.
--- NOTE | 2019-09-06 07:30 | NUR ---
RN OPENING NOTE: RECEIVED PATIENT IN BED THIS MORNING. PATIENT IS OBTUNDED. ON VENT, TOLERATING SETTINGS WELL. ON TELE MONITOR, SINUS TACHY 105. GT, NO SIGNS OF COMPLICATIONS NOTED, RUNNING NEPRO 40CC/HR, TOLERATING FEEDING WELL. #22 RIGHT HAND, C/D/I, NO SIGNS OF COMPLICATIONS NOTED, FLUSHES WELL. FEMORAL HD CATH, C/D/I. SAFETY MEASURES IMPLEMENTED, BED IN LOWEST POSITION, LOCKED, SIDE RAILS UP, CALL LIGHT WITHIN REACH. WILL CONTINUE TO MONITOR PATIENT FOR CHANGES.
[2019-09-06 08:00] VITALS: BP_SYST 100; BP_SYST 118; BP_DIAS 58; BP_DIAS 59
[2019-09-06] MEDS: DOCUSATE SODIUM LIQ 100 MG/10 ML UDC GT SCH ×2 (09:18→16:53)
[2019-09-06] MEDS: LACTOBACILLUS RHAMNOSUS GG 1 EACH CAP.SPRINK GT SCH (09:18)
[2019-09-06] MEDS: LEVETIRACETAM SOL (5 ML) 100 MG/ML UDC GT SCH (09:18)
[2019-09-06] MEDS: Z GUARD REMEDY 2 OZ OINT TP SCH (09:18)
[2019-09-06] MEDS: CHLORHEXIDINE GLUCONATE 15 ML UDC MM SCH (09:18)
[2019-09-06] MEDS: CLOTRIMAZOLE 1% 15 GM TUBE TP SCH ×2 (09:19→16:54)
[2019-09-06] MEDS: MUPIROCIN OINT 2% 22 GM TUBE SCH (09:19)
[2019-09-06] MEDS: BRIMONIDINE TARTRATE OPHT SOLN 5 ML BOTTLE OP SCH ×3 (09:19→16:53)
[2019-09-06] MEDS: CADEXOMER IODINE 40 GM TUBE TP SCH (09:19)
[2019-09-06 12:00] VITALS: BP 121/68
[2019-09-06 16:00] VITALS: BP 94/60
--- NOTE | 2019-09-06 16:46 | NUR ---
dr. connors notified patient will be discharge to [facility] and mo to send per md.report given to pam garcia.tried to reach family regarding discharge phone only ringing unable to left message.
[2019-09-06] MEDS: ACETAMINOPHEN 650 MG/20.3 ML UDC GT PRN (16:47)
--- NOTE | 2019-09-06 16:49 | NUR ---
CHARLI BLACK AND MD AWARE OF EDEMA WITH BLISTERS NOTED ON PATIENTS RUE. FAMILY HAD PREVIOUSLY REQUESTED NO DRASTIC MEASURES TO BE IMPLEMENTED. NO NEW ORDERS. PATIENT WILL BE DC TO SNF TODAY PER MD ORDER. AWAITING TRANSPORTATION PERSONAL BANKING REPRESENTATIVE.
--- NOTE | 2019-09-06 17:52 | NUR ---
IMAGING SPECIALIST NOTE: PATIENT DC TO [facility]. UPON DC ASSESSMENT, PATIENT IS OBTUNDED. VENT DEPENDENT, TOLERATING SETTINGS WELL. NO SIGNS OF RESPIRATORY DISTRESS NOTED. NO SIGNS OF ACUTE DISTRESS NOTED. #22 RIGHT HAND, C/D/I, NO SIGNS OF COMPLICATIONS NOTED, FLUSHES WELL. FEMORAL HD CATH, C/D/I. IV SITE RETAINED PER SNF RECOMMENDATION. WOUND PICTURES TAKEN AND PLACED IN CHART. DISCHARGE ASSESSMENT COMPLETE. PAPERWORK COMPLETE. MARLENY BREAUX GAVE REPORT TO LAWRENCE MITCHELL FROM SNF AND TRANSPORTATION UPON ARRIVAL. PATIENT LEFT [facility] WITH TRANSPORTATION AT 1745 VIA [facility].
== END 2019-09-06 17:58 | DRG 314 ==
LOC: ER 15:31 → TELE-TD 17:46 → TELE1 08-28 12:23
PROVIDERS: ATTEND Family Medicine
PROC: 5A1955Z Respiratory Ventilation, Greater than 96 Consecutive Hours (ICD-10-PCS; principal; 2019-08-24)
PROC: 5A1D70Z Performance of Urinary Filtration, Intermittent, Less than 6 Hours Per Day (ICD-10-PCS; 2019-08-25)
PROC: 30233N1 Transfusion of Nonautologous Red Blood Cells into Peripheral Vein, Percutaneous Approach (ICD-10-PCS; 2019-08-27)
PROC: 06HY33Z Insertion of Infusion Device into Lower Vein, Percutaneous Approach (ICD-10-PCS; 2019-09-01)
DX: T82.7XXA Infection and inflammatory reaction due to other cardiac and vascular devices, implants and grafts, initial encounter (principal); A41.02 Sepsis due to Methicillin resistant Staphylococcus aureus; J18.9 Pneumonia, unspecified organism; R53.2 Functional quadriplegia; N18.6 End stage renal disease; J96.20 Acute and chronic respiratory failure, unspecified whether with hypoxia or hypercapnia; R65.20 Severe sepsis without septic shock; G93.1 Anoxic brain damage, not elsewhere classified; Z99.11 Dependence on respirator [ventilator] status; D68.69 Other thrombophilia; E44.0 Moderate protein-calorie malnutrition; E87.2 Acidosis; I13.2 Hypertensive heart and chronic kidney disease with heart failure and with stage 5 chronic kidney disease, or end stage renal disease; L97.419 Non-pressure chronic ulcer of right heel and midfoot with unspecified severity; I38 Endocarditis, valve unspecified; T82.838A Hemorrhage due to vascular prosthetic devices, implants and grafts, initial encounter; Z99.2 Dependence on renal dialysis; D63.1 Anemia in chronic kidney disease; E11.22 Type 2 diabetes mellitus with diabetic chronic kidney disease; D69.6 Thrombocytopenia, unspecified; E83.39 Other disorders of phosphorus metabolism; E78.5 Hyperlipidemia, unspecified; G40.909 Epilepsy, unspecified, not intractable, without status epilepticus; H40.9 Unspecified glaucoma; R13.10 Dysphagia, unspecified; Z93.0 Tracheostomy status; Z93.1 Gastrostomy status; Z79.4 Long term (current) use of insulin; K21.9 Gastro-esophageal reflux disease without esophagitis; I25.10 Atherosclerotic heart disease of native coronary artery without angina pectoris; I50.9 Heart failure, unspecified; E11.621 Type 2 diabetes mellitus with foot ulcer; L97.519 Non-pressure chronic ulcer of other part of right foot with unspecified severity; L97.529 Non-pressure chronic ulcer of other part of left foot with unspecified severity; L90.5 Scar conditions and fibrosis of skin; Y92.129 Unspecified place in nursing home as the place of occurrence of the external cause; Z90.710 Acquired absence of both cervix and uterus; Y83.2 Surgical operation with anastomosis, bypass or graft as the cause of abnormal reaction of the patient, or of later complication, without mention of misadventure at the time of the procedure; Z66 Do not resuscitate; Z22.322 Carrier or suspected carrier of Methicillin resistant Staphylococcus aureus
CPT/HCPCS: 31720; 36415; 36600; 71045-TC; 80048-TC; 80053-TC; 80076-TC; 80202-TC; 82247-TC; 82248-TC; 82272-TC; 82550-TC; 82728-TC; 82962-TC; 83540-TC; 83605-TC; 83615-TC; 83735-TC; 83880; 84100-TC; 85025-TC; 85027-TC; 85378-TC; 85385-TC; 86140-TC; 86480; 86706; 86850-TC; 86921-TC; 87040-TC; 87070-TC; 87081-TC; 87340; 90935-TC; 93307-TC; 94003-TC; 94640-TC; 94760-TC; 94762-TC; 99082-TC; A4216; A4217; A6253; A6403; A9563; C1750; G0378; J0456; J0885; J1815; J1953; J2543; J3370; J3490; J7030; J7040; J7050; J7060; P9016-BL; P9047

== ENCOUNTER 2019-09-09 11:28 | Inpatient (IN) | payer MEDICARE, MEDICAID ==
[~2019-09-09] VITALS: Ht 162.6 cm; Wt 63.5 kg
[~2019-09-09 11:28] MED LIST changes: +ACET-868 GT; -ACET-868 PO; +ALBU2.5V38 IH; +GLUC1KIT IM; +RXVAN XX; +VANC500F2 IV
--- NOTE | 2019-09-09 11:45 | NUR ---
LAB AT BEDSIDE
--- NOTE | 2019-09-09 12:01 | NUR ---
VENT SETTING: AC12, 500VT, 40% O2, +5PEEP
--- NOTE | 2019-09-09 12:05 | NUR ---
BIBRA FROM SNF. TO ER BED 5. NON VERBAL. TRACH AND VENT DEPENDENT. BED BOUND. BROUGHT IN FOR ABNORMAL LAB - HGB 6.0. SATTING 100%. NOTED GEN BODY EDEMA. TRACH IS INTACT AND PATENT. IV LINE OBTAINED ON R WRIST 20G. BLOOD DRAWN AND GIVEN TO WARP KNITTER HELPER. RT PLACED PT ON VENT. WAS AT BEDSIDE FOR EVAL. WILL CONTINUE TO MONITOR
[2019-09-09 12:07] LABS: BASOPHILS # (AUTO) 0.1 /CMM (0.0-0.2); BASOPHILS % (AUTO) 1.3 % (0.0-2.0); EOSINOPHILS % (AUTO) 1.2 % (0.0-6.0); LYMPHOCYTES # (AUTO) 1.7 /CMM (0.8-4.8); LYMPHOCYTES % (AUTO) 33.3 % (20.0-44.0); MEAN CORPUSCULAR HGB CONC 33 g/dl (31.0-36.0); MEAN CORPUSCULAR VOLUME 95 fL (82-100); MONOCYTES # (AUTO) 0.4 /CMM (0.1-1.30); MONOCYTES % (AUTO) 8.3 % (2.0-12.0); NEUTROPHILS # (AUTO) 2.9 /CMM (1.8-8.9); NEUTROPHILS % (AUTO) 55.9 % (43.0-81.0); PLATELET COUNT (AUTO) 298 /CMM (150-450); RED BLOOD CELL COUNT(AUTO) 2.01 MIL/uL (4.0-5.2); WHITE BLOOD COUNT (AUTO) 5.2 K/uL (4.3-11.0)
[2019-09-09 12:11] LABS: HEMOGLOBIN 6.3 g/dL (11.5-14.8)
[2019-09-09 12:12] LABS: HEMATOCRIT 19 % (33-45)
--- NOTE | 2019-09-09 12:13 | NUR ---
PAGED DR CUNHA FOR ADMISSION
[2019-09-09 12:20] LABS: ALANINE AMINOTRANSFERASE 40 U/L (12-78); ALBUMIN 2.4 g/dL (3.4-5.0); ALKALINE PHOSPHATASE 372 U/L (46-116); ASPARTATE AMINOTRANSFERASE 46 U/L (15-37); BILIRUBIN,DIRECT 0.3 mg/dL (0.0-0.2); BILIRUBIN,TOTAL 0.6 mg/dL (0.2-1.0); CALCIUM, SERUM 8.8 mg/dL (8.5-10.1); CARBON DIOXIDE 24 mmol/L (21-32); CHLORIDE 96 mmol/L (98-107); CREATININE 5.2 mg/dL (0.6-1.3); POTASSIUM 3.9 mmol/L (3.5-5.1); SODIUM SERUM 135 mmol/L (136-145); TOTAL PROTEIN, SERUM 8.2 g/dL (6.4-8.2); UREA NITROGEN, BLOOD 49 mg/dL (7-18)
[2019-09-09 12:21] LABS: GLUCOSE 403 mg/dL (74-106)
[2019-09-09] MEDS ORDERED: ASCO-352 GT (12:32)
[2019-09-09] MEDS ORDERED: ZINC1CAP2 GT (12:32)
[2019-09-09] MEDS ORDERED: INSULIN REGULAR, HUMAN 100 UNIT/ML 10 ML VIAL ONE (12:52)
[2019-09-09 12:55] LABS: BAND % (MANUAL) 2 % (0.0-5.0); EOSINOPHILS % (MANUAL) 1 % (0-4); LYMPHOCYTES % (MANUAL) 21 % (16-48); MONOCYTES % (MANUAL) 9 % (0-11.0); NEUTROPHILS % (MANUAL) 67 (42-76)
[2019-09-09] MEDS ORDERED: INSULIN REGULAR, HUMAN 100 UNIT/ML 10 ML VIAL SQ ONE (13:00)
--- NOTE | 2019-09-09 13:17 | NUR ---
BLOOD TRANSFUSION STARTED. PRODUCT VERIFIED BY LAWRENCE ROBLES
[2019-09-09] MEDS ORDERED: HYDROCODONE/APAP 5/325MG 1 EACH TABLET PO PRN (13:30)
[2019-09-09] MEDS ORDERED: VANCOMYCIN 500 MG in IV NS 0.9% 100 ML IV PRN (13:30)
[2019-09-09] MEDS: ALBUTEROL FS 2.5 MG/3 ML VIAL.NEB IH SCH ×2 (13:30→19:59)
[2019-09-09] MEDS ORDERED: ACETAMINOPHEN 325 MG TABLET PO PRN (13:30)
[2019-09-09] MEDS ORDERED: ONDANSETRON HCL/PF 4 MG/2 ML VIAL IVP PRN (13:30)
[2019-09-09] MEDS ORDERED: INSULIN REGULAR, HUMAN 100 UNIT/ML 3 ML VIAL SQ PRN (13:30)
[2019-09-09] MEDS ORDERED: Z GUARD REMEDY 2 OZ OINT TP PRN (13:30)
--- NOTE | 2019-09-09 13:39 | NUR ---
REPORT GIVEN TO LAWRENCE SILVA FOR SHERRY.
[2019-09-09] MEDS ORDERED: VANCOMYCIN 1 GM in IV D5W 250ml IV ONE (14:00)
--- NOTE | 2019-09-09 14:07 | NUR ---
PT TRANSPORTED TO UNIT ON GURNEY WITH EMT, RT AND RN AT BEDSIDE W/ ACLS PROTOCOL.
[2019-09-09] MEDS: EPOETIN ALFA (10,000 UNIT) 10,000 UNIT/ML VIAL SQ SCH (15:00)
--- NOTE | 2019-09-09 15:00 | NUR ---
Received patient from ER and report obtained. Pt non verbal, stable v/s. Noticed multiple wound, picture taken. Will continue to monitor.
[2019-09-09] MEDS: FAMOTIDINE (20 MG) 20 MG TABLET GT SCH (15:39)
[2019-09-09] MEDS: BRIMONIDINE TARTRATE OPHT SOLN 5 ML BOTTLE EACHEYE SCH ×2 (15:40→17:36)
[2019-09-09 16:00] VITALS: BP 125/68
[2019-09-09] MEDS: MIDODRINE HCL (5MG) 5 MG TABLET PO SCH (17:38)
[2019-09-09] MEDS: DOCUSATE SODIUM 100 MG CAPSULE PO SCH (17:38)
[2019-09-09] MEDS ORDERED: BLOOD SUGAR DIAGNOSTIC 1 EACH STRIP IN SCH (18:00)
[2019-09-09] MEDS ORDERED: ALTEPLASE CATHFLO 2 MG/VIAL XX ONE (18:30)
--- NOTE | 2019-09-09 18:30 | NUR ---
Tele/RN Closing note Patient sleeping in bed comfortably, dose no appears pain or any discomfort. Skin is warm to touch, kept clean/dry, intact IV site. Patient has tube feeding, no residual observed. Started IV ATB, no s/s of adverse reaction observed. Pt is on ventilator, respiratory even and unlabored, keep lower portion if the bed with locked wheel and elevated HOB. Call light within reach, will endorse trouble dispatcher.
--- NOTE | 2019-09-09 18:57 | NUR ---
Pt ordered Epogen and asked pharmacy to deliver multiple times but unable to given.
[2019-09-09] MEDS ORDERED: DEXTROSE 50%-WATER 50 ML DISP.SYRIN IV PRN (19:30)
--- NOTE | 2019-09-09 19:45 | NUR ---
RN Notes Received patient HOB elevated, obtunded, with trach on mechanical vent with settings in place. Telemonitor reads Sinus rhythm. Vital signs stable, afebrile. IV access on left hand patent and intact. GT intact and patent. Left arm wound dressing done. Bilateral foot dressing intact, clean and dry. Kept clean and dry. Will reposition per protocol. Will continue to monitor.
[2019-09-09 20:00] VITALS: BP 125/83
[2019-09-09] MEDS: NEPRO 1,000 ML BOTTLE GT PRN (21:34)
[2019-09-09] MEDS: CHLORHEXIDINE GLUCONATE 15 ML UDC MM SCH (21:52)
[2019-09-09] MEDS: LEVETIRACETAM SOL (5 ML) 100 MG/ML UDC GT SCH (21:52)
[2019-09-09] MEDS: LATANOPROST EYE DROP 0.005% 2.5 ML BOTTLE EACHEYE SCH (21:53)
[2019-09-09] MEDS: BLOOD SUGAR DIAGNOSTIC 1 EACH STRIP IN SCH (21:54)
[2019-09-09] MEDS: INSULIN GLARGINE, 100 UNIT/ML CARTRIDGE SQ SCH (21:55)
[2019-09-09] MEDS: INSULIN REGULAR, HUMAN 100 UNIT/ML 3 ML VIAL SQ PRN (21:58)
[2019-09-09 22:00] VITALS: BP 125/83
[2019-09-10] VITALS (8 sets, daily range): BP systolic 68–144; BP diastolic 54–82
[2019-09-10] MEDS: ALBUTEROL FS 2.5 MG/3 ML VIAL.NEB IH SCH ×4 (01:59→20:14)
--- NOTE | 2019-09-10 06:18 | NUR ---
RN Notes Patient stable overnight, afebrile. No signs of distress and discomfort noted. Current feeding tolerated well. Wound care done. Turned and repositioned per protocol. Kept clean and dry. Will endorse for continuity of care.
[2019-09-10] MEDS: BLOOD SUGAR DIAGNOSTIC 1 EACH STRIP IN SCH ×4 (06:38→21:38)
[2019-09-10] MEDS: INSULIN REGULAR, HUMAN 100 UNIT/ML 3 ML VIAL SQ PRN ×4 (06:42→21:39)
[2019-09-10 07:10] LABS: BASOPHILS # (AUTO) 0.1 /CMM (0.0-0.2); BASOPHILS % (AUTO) 1.1 % (0.0-2.0); EOSINOPHILS % (AUTO) 2.4 % (0.0-6.0); HEMATOCRIT 21 % (33-45); HEMOGLOBIN 7.3 g/dL (11.5-14.8); LYMPHOCYTES # (AUTO) 1.2 /CMM (0.8-4.8); LYMPHOCYTES % (AUTO) 23.9 % (20.0-44.0); MEAN CORPUSCULAR HGB CONC 34 g/dl (31.0-36.0); MEAN CORPUSCULAR VOLUME 93 fL (82-100); MONOCYTES # (AUTO) 0.4 /CMM (0.1-1.30); MONOCYTES % (AUTO) 7.4 % (2.0-12.0); NEUTROPHILS # (AUTO) 3.3 /CMM (1.8-8.9); NEUTROPHILS % (AUTO) 65.2 % (43.0-81.0); PLATELET COUNT (AUTO) 304 /CMM (150-450); RED BLOOD CELL COUNT(AUTO) 2.28 MIL/uL (4.0-5.2); WHITE BLOOD COUNT (AUTO) 5.1 K/uL (4.3-11.0)
[2019-09-10 07:22] LABS: CALCIUM, SERUM 8.7 mg/dL (8.5-10.1); CREATININE 5.4 mg/dL (0.6-1.3); MAGNESIUM 2.3 mg/dL (1.8-2.4); POTASSIUM 3.7 mmol/L (3.5-5.1)
[2019-09-10] MEDS: MIDODRINE HCL (5MG) 5 MG TABLET PO SCH ×3 (09:00→16:46)
[2019-09-10] MEDS: CHLORHEXIDINE GLUCONATE 15 ML UDC MM SCH ×2 (09:08→21:28)
[2019-09-10] MEDS: ZINC SULFATE 220 MG CAPSULE GT SCH (09:08)
[2019-09-10] MEDS: LACTOBACILLUS RHAMNOSUS GG 1 EACH CAP.SPRINK GT SCH (09:08)
[2019-09-10] MEDS: DOCUSATE SODIUM 100 MG CAPSULE PO SCH ×2 (09:08→16:46)
[2019-09-10] MEDS: LEVETIRACETAM SOL (5 ML) 100 MG/ML UDC GT SCH ×2 (09:08→21:26)
[2019-09-10] MEDS: ASCORBIC ACID 500 MG TABLET GT SCH (09:09)
[2019-09-10] MEDS: BRIMONIDINE TARTRATE OPHT SOLN 5 ML BOTTLE EACHEYE SCH ×3 (09:14→16:47)
[2019-09-10] MEDS ORDERED: HEPARIN SODIUM, PORCINE 1000 UNIT/1 ML VIAL IV ONE (12:00)
[2019-09-10] MEDS ORDERED: LIDOCAINE 1%-EPI 1:100,000 20 ML VIAL TP ONE (12:00)
--- NOTE | 2019-09-10 12:00 | NUR ---
DENTAL AIDE NOTES-- CALLED SHAILESH SEGURA (DTR) TO OBTAIN CONSENT FOR KAYLA CATH PLACEMENT. NO ANSWER. LEFT VOICEMAIL. WILL TRY AGAIN.
--- NOTE | 2019-09-10 13:01 | NUR ---
SHADE HANGER NOTES-- CALLED SHAILESH SEGURA (DTR) ANOTHER 2X TO OBTAIN CONSENT FOR KAYLA CATH PLACEMENT. NO ANSWER. LEFT VOICEMAIL. WILL TRY AGAIN.
--- NOTE | 2019-09-10 14:34 | NUR ---
HAND UMBRELLA TIPPER NOTES-- OBTAINED VERBAL CONSENT FROM SHAILESH IMELDA DAUGHTER WITH 2ND RN WITNESS.
--- NOTE | 2019-09-10 18:22 | NUR ---
GROUP WORK PROGRAM DIRECTOR END OF SHIFT SUMMARY PT IS OBTUNDED, CARDIAC MONITORED W/ NSR. CURRENTLY ON MECH VENT, TOLERATING VENT SETTINGS WELL. NOT IN ANY ACUTE DISTRESS NOTED. NO FACIAL GRIMACING OR MOANING NOTED DURING SHIFT. ABDOMEN IS SOFT AND NONDISTENDED, BOWEL SOUNDS ARE PRESENT IN ALL 4 QUADRANTS UPON AUSCULTATION. +FLATUS, X1 BM DURING SHIFT. ON GTF NEPRO @50ML/HRX17 HRS OFF AT 1130 ON 6:30PM. IV SITE TO L HAND INTACT, NO INFILTRATION NOTED. DRESSING KEPT CDI. ACCUCHECKS ACHS. NEEDS MET AND RENDERED. SAFETY MEASURES ARE IN PLACE. CALL LIGHT IS LEFT WITHIN REACH. WILL MONITOR AND CONTINUE POC.
[2019-09-10] MEDS: NEPRO 1,000 ML BOTTLE GT PRN (18:30)
--- NOTE | 2019-09-10 19:30 | NUR ---
ELECTRIC MOTOR AND GENERATOR ASSEMBLER: RECEIVED PATIENT Patient in bed, Dr. Ferrari with SANDOR Fabian at bedside for procedure, HD cath placement in progress.
--- NOTE | 2019-09-10 20:10 | NUR ---
PRODUCTION SUPPORT ANALYST: S/P HD cath placement by Dr. Ferrari. XR chest stat as ordered placed.
--- NOTE | 2019-09-10 21:21 | NUR ---
ASSOCIATE FINANCIAL PLANNER: HD CATH PLACEMENT UNSUCCESSFUL HD cath placement with multiple attempts unsuccessful per SANDOR Fabian (see notes of Dr. Ferrari). Will resume gtube feeding as ordered.
[2019-09-10] MEDS: LATANOPROST EYE DROP 0.005% 2.5 ML BOTTLE EACHEYE SCH (21:41)
[2019-09-10] MEDS: INSULIN GLARGINE, 100 UNIT/ML CARTRIDGE SQ SCH (23:19)
[2019-09-11] VITALS (12 sets, daily range): BP systolic 114–154; BP diastolic 51–90
[2019-09-11] MEDS: ALBUTEROL FS 2.5 MG/3 ML VIAL.NEB IH SCH ×4 (02:21→19:13)
--- NOTE | 2019-09-11 06:08 | NUR ---
FAMILY PROTECTION SPECIALIST: END OF SHIFT REPORT Patient in bed, eyes open, non verbal. Trach intact, vent settings per RT. Suction secretion PRN. Sinus Rhythm in the Tele monitor. Gtube feeding @ 50ml/hr, tolerating well. Had BM this shift. Unsuccessful HD placement at bedside with Dr. Ferrari and SANDOR Fabian with multiple attempts (see notes Dr. Ferrari). Fall: aspiration; skin precaution maintained. Turning and reposition, offload heels at all times, dressing changed to wounds. Wound consult to follow.
[2019-09-11] MEDS: BLOOD SUGAR DIAGNOSTIC 1 EACH STRIP IN SCH ×4 (06:32→22:56)
[2019-09-11] MEDS: INSULIN REGULAR, HUMAN 100 UNIT/ML 3 ML VIAL SQ PRN ×3 (06:32→21:48)
--- NOTE | 2019-09-11 08:00 | NUR ---
RN NOTES RECEIVED PATIENT IN THE BED TOTAL CARE WITH TRACHEA/VENT DEPENDENT, NO ACUTE RESPIRATORY DISTRESS. PATIENT OBTUNDED EYES, GT- FEEDING NEPHRO 50 ML/HR INTACT, IV ACCESS ON RIGHT HAND INTACT. ADMINISTERED SCHEDULED MEDICATION VIA GT,ALSO FLASHED 60 ML OF WATER. KEEP HOB ELEVATED FOR ASPIRATION PRECAUTION. PATIENT HAS A EDEMA BLE, AND BILATERAL HANDS. SACRAL EXCURSION OF SKIN, APPLIED Z-GUARD AND MEPILEX. ASSIST TURN AND REPOSTION Q2 HR, CONTINUED MONITORING.
[2019-09-11] MEDS: LEVETIRACETAM SOL (5 ML) 100 MG/ML UDC GT SCH ×2 (09:50→20:39)
[2019-09-11] MEDS: CHLORHEXIDINE GLUCONATE 15 ML UDC MM SCH ×2 (09:50→20:39)
[2019-09-11] MEDS: DOCUSATE SODIUM 100 MG CAPSULE PO SCH ×2 (09:51→17:33)
[2019-09-11] MEDS: ZINC SULFATE 220 MG CAPSULE GT SCH (09:51)
[2019-09-11] MEDS: ASCORBIC ACID 500 MG TABLET GT SCH (09:51)
[2019-09-11] MEDS: LACTOBACILLUS RHAMNOSUS GG 1 EACH CAP.SPRINK GT SCH (09:51)
[2019-09-11] MEDS: FAMOTIDINE (20 MG) 20 MG TABLET GT SCH (09:51)
[2019-09-11] MEDS: MIDODRINE HCL (5MG) 5 MG TABLET PO SCH ×3 (09:52→17:33)
[2019-09-11] MEDS: BRIMONIDINE TARTRATE OPHT SOLN 5 ML BOTTLE EACHEYE SCH ×3 (09:54→17:28)
[2019-09-11] MEDS ORDERED: FEE PK DOSING 1 MIN EA MC ONE (10:00)
[2019-09-11 11:15] LABS: BASOPHILS % (AUTO) 0.5 % (0.0-2.0); EOSINOPHILS % (AUTO) 1.5 % (0.0-6.0); LYMPHOCYTES # (AUTO) 0.9 /CMM (0.8-4.8); LYMPHOCYTES % (AUTO) 14.8 % (20.0-44.0); MEAN CORPUSCULAR HGB CONC 33 g/dl (31.0-36.0); MEAN CORPUSCULAR VOLUME 94 fL (82-100); MONOCYTES # (AUTO) 0.4 /CMM (0.1-1.30); MONOCYTES % (AUTO) 6.6 % (2.0-12.0); NEUTROPHILS # (AUTO) 4.5 /CMM (1.8-8.9); NEUTROPHILS % (AUTO) 76.6 % (43.0-81.0); PLATELET COUNT (AUTO) 270 /CMM (150-450); RED BLOOD CELL COUNT(AUTO) 2.03 MIL/uL (4.0-5.2); WHITE BLOOD COUNT (AUTO) 5.8 K/uL (4.3-11.0)
--- NOTE | 2019-09-11 11:30 | NUR ---
RN NOTES STOP GT FEEDING PER ORDER.
[2019-09-11 11:38] LABS: CALCIUM, SERUM 8.9 mg/dL (8.5-10.1); CREATININE 6.6 mg/dL (0.6-1.3); POTASSIUM 3.6 mmol/L (3.5-5.1)
[2019-09-11 11:57] LABS: HEMOGLOBIN 6.3 g/dL (11.5-14.8)
[2019-09-11 11:58] LABS: HEMATOCRIT 19 % (33-45)
--- NOTE | 2019-09-11 12:00 | NUR ---
rn notes BS-339 mg/dl, stop GT feeding per md order. Get critical labs hgl 6.3, hct-19, notified Dr. Samano and get TO order PRBC one unit , order taken and carried out.
[2019-09-11 13:06] LABS: BAND % (MANUAL) 7 % (0.0-5.0); EOSINOPHILS % (MANUAL) 3 % (0-4); LYMPHOCYTES % (MANUAL) 16 % (16-48); METAMYELOCYTES % 1 % (0-0); MONOCYTES % (MANUAL) 9 % (0-11.0); NEUTROPHILS % (MANUAL) 64 (42-76)
[2019-09-11] MEDS: EPOETIN ALFA (10,000 UNIT) 10,000 UNIT/ML VIAL SQ SCH (15:08)
--- NOTE | 2019-09-11 16:03 | NUR ---
rn notes started blood transfusion at this time one unit 300 ml at 50 ml/hr per md orders,v/s taken bp 114/76, p-89, r-18, t-97.9, O2-100 trachea/ vent dependent. consent signed verification get TO via daughter name Sharri, cosigned co worker Vishal BRAVO. Continued monitoring.
--- NOTE | 2019-09-11 16:30 | NUR ---
rn notes patient stable, quiet in the bed, no acute respiratory distress, no pain, v/s taken bp 118/76, p70, increased blood infusion on 75 ml/hr, patient tolerated well.
--- NOTE | 2019-09-11 17:00 | NUR ---
rn notes patient stable started GT feeding, bs-355 mg/dl coverage given, v/s taken bp 118/71, p-71, increased blood infusion on 125 mg/dl. continued monitoring.
--- NOTE | 2019-09-11 18:00 | NUR ---
RN NOTES V/S TAKEN BP 145/75, P-71, T-98.8, PATIENT STABLE, ASSIST TURN AND REPOSTION Q 2 HR, PATIENT TOASTING BLOOD INFUSION WELL. HOB ELEVATED FOR ASPIRATION PRECAUTION.
--- NOTE | 2019-09-11 18:30 | NUR ---
RN NOTES STILL INFUSING BLOOD, NO S/S OF SOB, NO PAIN, STABLE, ASSIST TURN AND REPOSTION Q 2 HR. GT FEEDING NEPHRO 50 ML/HR INTACT. KEEP HOB ELEVATED FOR ASPIRATION PRECAUTION. NEEDS ATTENDED AND ANTICIPATED, CALL LIGHT WITHIN TO REACH. ENDORSED ONCOMING NURSE FOLLOW PLAN OF CARE.
--- NOTE | 2019-09-11 19:00 | NUR ---
recieved the patient in bed appears comfortable trach area clean peg feeding infusinf via pump
--- NOTE | 2019-09-11 19:47 | NUR ---
RT NOTE PT RECEIVED TRACHED ON MECHANICAL VENTILATION. AMBU BAG @ BEDSIDE. SX DONE, TRACH SECURED AND PATENT. ALARMS ON AND AUDIBLE. NO DISTRESS NOTED. CONT. PULSE OX CONNECTED. WILL MONITOR T/O SHIFT. Addendum: 09/11/19 at 1948 by ERIC RANDALL RT Amended: Links added.
[2019-09-11] MEDS: LATANOPROST EYE DROP 0.005% 2.5 ML BOTTLE EACHEYE SCH (21:37)
[2019-09-11] MEDS: INSULIN GLARGINE, 100 UNIT/ML CARTRIDGE SQ SCH (21:44)
[2019-09-12] VITALS (7 sets, daily range): BP systolic 142–171; BP diastolic 71–97
[2019-09-12] MEDS: NEPRO 1,000 ML BOTTLE GT PRN ×2 (00:07→01:30)
[2019-09-12] MEDS: ALBUTEROL FS 2.5 MG/3 ML VIAL.NEB IH SCH ×4 (00:32→19:50)
--- NOTE | 2019-09-12 05:36 | NUR ---
ENDING REPORT: SUCTIONED FOR EXCESSIVE SALIVA INCONTINENT 1 BM THIS 12 HOURS KEPT CLEAN AND DRY. 2 NURSES TO TURN AND BE REPOSITIONED.FEEDING STOPPED AT 0000 WILL BE RESTARTED AT 0700, TO RUN ONLY FOR 17 HOURS /24OURS.
[2019-09-12] MEDS: BLOOD SUGAR DIAGNOSTIC 1 EACH STRIP IN SCH ×4 (06:22→22:03)
[2019-09-12] MEDS: INSULIN REGULAR, HUMAN 100 UNIT/ML 3 ML VIAL SQ PRN ×3 (06:28→17:53)
[2019-09-12 07:57] LABS: CREATININE 7.3 mg/dL (0.6-1.3); POTASSIUM 3.8 mmol/L (3.5-5.1)
--- NOTE | 2019-09-12 08:00 | NUR ---
RN NOTES RECEIVED PATIENT IN THE BED TOTAL CARE WITH TRACHEA/VENT DEPENDENT, NO ACUTE RESPIRATORY DISTRESS. PATIENT OBTUNDED EYES ONE A WHILE. GT- FEEDING NEPHRO 50 ML/HR INTACT, IV ACCESS ON RIGHT UPPER ARM INTACT INTACT. ADMINISTERED SCHEDULED MEDICATION VIA GT,ALSO FLASHED 60 ML OF WATER. KEEP HOB ELEVATED FOR ASPIRATION PRECAUTION. PATIENT HAS A EDEMA BLE, AND BILATERAL HANDS. SACRAL EXCURSION OF SKIN, APPLIED Z-GUARD AND MEPILEX, WOUNDS LEFT AND RIGHT ANKLES, ELEVATED LRGS USING PILLOWS. ASSIST TURN AND REPOSTION Q2 HR, CONTINUED MONITORING.
[2019-09-12] MEDS: ZINC SULFATE 220 MG CAPSULE GT SCH (09:17)
[2019-09-12] MEDS: LACTOBACILLUS RHAMNOSUS GG 1 EACH CAP.SPRINK GT SCH (09:17)
[2019-09-12] MEDS: CHLORHEXIDINE GLUCONATE 15 ML UDC MM SCH ×2 (09:17→21:55)
[2019-09-12] MEDS: ASCORBIC ACID 500 MG TABLET GT SCH (09:17)
[2019-09-12] MEDS: MIDODRINE HCL (5MG) 5 MG TABLET PO SCH ×3 (09:17→17:31)
[2019-09-12] MEDS: LEVETIRACETAM SOL (5 ML) 100 MG/ML UDC GT SCH ×2 (09:17→21:55)
[2019-09-12] MEDS: DOCUSATE SODIUM 100 MG CAPSULE PO SCH ×2 (09:17→17:31)
[2019-09-12] MEDS: FAMOTIDINE (20 MG) 20 MG TABLET GT SCH (09:18)
[2019-09-12] MEDS: BRIMONIDINE TARTRATE OPHT SOLN 5 ML BOTTLE EACHEYE SCH ×3 (09:19→17:32)
--- NOTE | 2019-09-12 09:59 | NUR ---
WOUND CARE CONSULT: PT FOLLOWED BY SURGICAL TEAM AND PODIATRY TEAM FOR MULTIPLE WOUNDS PRESENT ON ADMISSION. DR KIRKLAND AND DR HYLTON NOTIFIED OF PT READMISSION. DEFER TO SURGICAL TEAMS FOR WOUND TREATMENT PLAN. PT TO BE PLACED ON LOW AIRLOSS BED WHEN AVAILABLE. DISCUSSED SKIN PROTECTION WITH NURSING STAFF. WILL SEE PRN.
--- NOTE | 2019-09-12 10:00 | NUR ---
RN NOTES SEEN PATIENT BY WOUND MD. NEW ORDER WOUND DEBRIDEMENT ON RIGHT ANKLE. 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
[2019-09-12] MEDS ORDERED: THERAHONEY GEL 1.5 OZ TUBE TP SCH (11:00)
[2019-09-12 11:59] LABS: BASOPHILS # (AUTO) 0.1 /CMM (0.0-0.2); BASOPHILS % (AUTO) 1.1 % (0.0-2.0); EOSINOPHILS % (AUTO) 3.3 % (0.0-6.0); HEMATOCRIT 24 % (33-45); LYMPHOCYTES # (AUTO) 1.5 /CMM (0.8-4.8); LYMPHOCYTES % (AUTO) 22.8 % (20.0-44.0); MEAN CORPUSCULAR HGB CONC 34 g/dl (31.0-36.0); MEAN CORPUSCULAR VOLUME 94 fL (82-100); MONOCYTES # (AUTO) 0.5 /CMM (0.1-1.30); MONOCYTES % (AUTO) 7.7 % (2.0-12.0); NEUTROPHILS # (AUTO) 4.3 /CMM (1.8-8.9); NEUTROPHILS % (AUTO) 65.1 % (43.0-81.0); PLATELET COUNT (AUTO) 315 /CMM (150-450); RED BLOOD CELL COUNT(AUTO) 2.52 MIL/uL (4.0-5.2); WHITE BLOOD COUNT (AUTO) 6.6 K/uL (4.3-11.0)
--- NOTE | 2019-09-12 13:00 | NUR ---
RN NOTES DEBRIDEMENT DONE ON RIGHT ANKLE, PICTURE TAKEN.
--- NOTE | 2019-09-12 13:00 | NUR ---
RN NOTES BS-252 MG/DL, COVERAGE GIVEN, ALSO ADMINISTERED SCHEDULED MEDICATION VIA GT, KEEP HOB ELEVATED.
[2019-09-12 14:48] LABS: BAND % (MANUAL) 6 % (0.0-5.0); EOSINOPHILS % (MANUAL) 5 % (0-4); LYMPHOCYTES % (MANUAL) 10 % (16-48); METAMYELOCYTES % 1 % (0-0); MONOCYTES % (MANUAL) 14 % (0-11.0); NEUTROPHILS % (MANUAL) 64 (42-76)
--- NOTE | 2019-09-12 18:22 | NUR ---
RN NOTES ARTERIAL BLE US DONE, BS-316 GIVEN 8 U COVERAGE AND SCHEDULED MEDICATION , ASSIST PATIENT TURN AND REPOSTION Q 2 HR. SEEN DIRECTOR OF CULTURE, NEW ORDER CONSULTATION VASCULAR MD ON THURSDAY. CALL LIGHT WITHIN TO REACH, ASSIST TURN AND REPOSTION Q 2 HR.. CONTINUED MONITORING.
--- NOTE | 2019-09-12 19:51 | NUR ---
RT NOTES PT RECEIVED TRACHED ON [facility] VENT ON CHARTED SETTINGS. NO SIGNS OF RESP DISTRESS. AIRWAY PATENT AND SECURED. PT SUCTIONED. HHN TX GIVEN WITH NO ADVERSE REACTIONS NOTED. AMBUBAG AND SPARE TRACH PRESENT. VENT PLUGGED INTO TO RED OUTLET. WILL CONT TO MONITOR. Addendum: 09/12/19 at 2043 by BETHANY MUSE RT Amended: Links added.
--- NOTE | 2019-09-12 20:00 | NUR ---
MS/TELE/RN RECEIVED PATIENT AWAKE, NON VERBAL, ON MECHANICAL VENTILATOR, NO SIGNS OF DISTRESS NOTED, HOB ELEVATED, WILL MONITOR.
[2019-09-12] MEDS: INSULIN GLARGINE, 100 UNIT/ML CARTRIDGE SQ SCH (22:01)
[2019-09-12] MEDS: LATANOPROST EYE DROP 0.005% 2.5 ML BOTTLE EACHEYE SCH (22:13)
[2019-09-13] VITALS: BP 112/57
[2019-09-13] MEDS: ALBUTEROL FS 2.5 MG/3 ML VIAL.NEB IH SCH ×4 (01:33→19:59)
[2019-09-13 04:00] VITALS: BP 117/76
--- NOTE | 2019-09-13 05:59 | NUR ---
MS/TELE/RN MORNING CARE/NURSING CARE WAS PROVIDED, TOTAL LINEN CARE CARE WAS DONE, TRACH CARE DONE/TRACH DRESSING CARE CHANGED, PATIENT TOLERATED, APPLIED DRESSING TO GTUBE SITE. REPOSITIONED TO COMFORT. NO CHANGE IN CONDITION, ALL NEEDS ATTENDED AT THIS TIME, WILL CONTINUE TO MONITOR.
--- NOTE | 2019-09-13 06:21 | NUR ---
WOUND CARE CONSULT WOUND CARE RECEIVED CONSULT FOR SACRAL EXCORIATIONS AND RIGHT AND BILATERAL HEEL/ANKLE WOUNDS. WOUND CARE WILL DEFER CONSULT AND ALL TREATMENT PLANS TO PLASTIC SURGICAL TEAM WHO ARE CURRENTLY FOLLOWING THIS PATIENT. DPM DR HYLTON IS ALSO FOLLOWING THIS PATIENT, ALL TREATMENT ORDERS CLARIFIED WITH DR HYLTON. DR TAPIA HAS SIGNED OF THIS PATIENT CASE FOR NOW DR HYLTON IS THE FOLLOWING DPM. PATIENT WITH CABRERA AT 10, ALL PRESSURE ULCER PREVENTION MEASURES ARE NOTED TO BE IN PLACE AT THIS TIME. WILL SEE PRN. ALL DISCUSSED WITH NURSING STAFF.
[2019-09-13] MEDS: BLOOD SUGAR DIAGNOSTIC 1 EACH STRIP IN SCH ×4 (06:55→22:00)
[2019-09-13] MEDS: INSULIN REGULAR, HUMAN 100 UNIT/ML 3 ML VIAL SQ PRN ×3 (06:57→16:42)
--- NOTE | 2019-09-13 07:25 | NUR ---
rn opening notes patient received on a ventilator, no sob noted, patient shows no s/s of pain at this time. HD was last done 09/09/19. NPO GT Nepro 50 ml per hour for 17 hours, off at 1800. bed at the lowest setting, call light within reach, side rails up x2.
[2019-09-13 08:00] VITALS: BP 159/77
[2019-09-13] MEDS: ASCORBIC ACID 500 MG TABLET GT SCH (08:05)
[2019-09-13] MEDS: CHLORHEXIDINE GLUCONATE 15 ML UDC MM SCH ×2 (08:05→22:00)
[2019-09-13] MEDS: LEVETIRACETAM SOL (5 ML) 100 MG/ML UDC GT SCH ×2 (08:05→22:00)
[2019-09-13] MEDS: LACTOBACILLUS RHAMNOSUS GG 1 EACH CAP.SPRINK GT SCH (08:05)
[2019-09-13] MEDS: FAMOTIDINE (20 MG) 20 MG TABLET GT SCH (08:05)
[2019-09-13] MEDS: BRIMONIDINE TARTRATE OPHT SOLN 5 ML BOTTLE EACHEYE SCH ×3 (08:06→16:30)
[2019-09-13] MEDS: MIDODRINE HCL (5MG) 5 MG TABLET PO SCH ×3 (08:06→16:30)
[2019-09-13] MEDS: DOCUSATE SODIUM 100 MG CAPSULE PO SCH ×2 (08:06→16:30)
[2019-09-13] MEDS: ZINC SULFATE 220 MG CAPSULE GT SCH (08:06)
[2019-09-13] MEDS: CADEXOMER IODINE 40 GM TUBE TP SCH (08:07)
[2019-09-13 08:31] LABS: BASOPHILS # (AUTO) 0.1 /CMM (0.0-0.2); BASOPHILS % (AUTO) 0.8 % (0.0-2.0); HEMATOCRIT 26 % (33-45); HEMOGLOBIN 8.8 g/dL (11.5-14.8); LYMPHOCYTES # (AUTO) 2.2 /CMM (0.8-4.8); LYMPHOCYTES % (AUTO) 26.7 % (20.0-44.0); MEAN CORPUSCULAR HGB CONC 34 g/dl (31.0-36.0); MEAN CORPUSCULAR VOLUME 94 fL (82-100); MONOCYTES # (AUTO) 0.6 /CMM (0.1-1.30); MONOCYTES % (AUTO) 7.9 % (2.0-12.0); NEUTROPHILS % (AUTO) 61.6 % (43.0-81.0); PLATELET COUNT (AUTO) 338 /CMM (150-450); WHITE BLOOD COUNT (AUTO) 8.1 K/uL (4.3-11.0)
[2019-09-13 08:56] LABS: CALCIUM, SERUM 9.2 mg/dL (8.5-10.1); MAGNESIUM 2.4 mg/dL (1.8-2.4); PHOSPHORUS 5.1 mg/dL (2.5-4.9); POTASSIUM 4.1 mmol/L (3.5-5.1)
[2019-09-13 08:59] LABS: CREATININE 7.8 mg/dL (0.6-1.3)
--- NOTE | 2019-09-13 09:58 | NUR ---
rn notes patient's bed changed, all plugs plugged in the wall
[2019-09-13 12:00] VITALS: BP 120/66
[2019-09-13 16:00] VITALS: BP 124/79
[2019-09-13] MEDS: EPOETIN ALFA (10,000 UNIT) 10,000 UNIT/ML VIAL SQ SCH (16:31)
--- NOTE | 2019-09-13 17:38 | NUR ---
rn closing notes Patient remains on the ventilator, no sob noted, patient shows no s/s of pain at this time. Feeding off at this time, patient to be NPO at midnight with a scheduled permacath placement tomorrow at 1300. Consent signed. Patient's insulin coverage given and shows no s/s of hypoglycemia. Bed at the lowest setting, call light within reach, side rails up x2. Will give report to NOC RN for SHERRY bedside.
[2019-09-13] MEDS: NEPRO 1,000 ML BOTTLE GT PRN (20:14)
[2019-09-13 20:20] VITALS: BP 116/74
--- NOTE | 2019-09-13 20:41 | NUR ---
MS/TELE/RN PATIENT AWAKE, NON VERBAL, APPEAR COMFORTABLE, NO SIGNS OF DISTRESS NOTED, MECHANICAL VENTILATOR, HOB ELEVATED, STARTED GTUBE FEEDING, NPO AFTER MIDNIGHT FOR HD CATHETER IN A.M., WILL MONITOR.
[2019-09-13] MEDS: INSULIN GLARGINE, 100 UNIT/ML CARTRIDGE SQ SCH (22:00)
[2019-09-13] MEDS: LATANOPROST EYE DROP 0.005% 2.5 ML BOTTLE EACHEYE SCH (22:01)
--- NOTE | 2019-09-13 22:08 | NUR ---
MS/TELE/RN LANTUS 46 UNITS NOT GIVEN, BLOOD SUGAR 105, NPO POST MIDNIGHT.
[2019-09-14 01:03] VITALS: BP 108/67
[2019-09-14] MEDS: ALBUTEROL FS 2.5 MG/3 ML VIAL.NEB IH SCH ×4 (02:32→19:51)
[2019-09-14 04:37] VITALS: BP 152/90
--- NOTE | 2019-09-14 06:21 | NUR ---
MS/TELE/RN PATIENT IS AWAKE, COMFORTABLE, NO DISTRESS NOTED, ALL NEEDS ATTENDED AT THIS TIME, WILL CONTINUE TO MONITOR
[2019-09-14] MEDS: BLOOD SUGAR DIAGNOSTIC 1 EACH STRIP IN SCH ×3 (06:54→18:25)
[2019-09-14 07:00] LABS: CALCIUM, SERUM 9.4 mg/dL (8.5-10.1); POTASSIUM 4.1 mmol/L (3.5-5.1)
--- NOTE | 2019-09-14 07:48 | NUR ---
INTERNAL MEDICINE PHYSICIAN ASSISTANT OPENING NOTES RECEIVED PATIENT IN BED, ASLEEP. PATIENT IS ON VENT SETTINGS BREATHING IS UNLABORED AND SYMMETRICAL. NO SIGNS OF PAIN PRESENT SUCH MOANING OR GUARDING. EXTERNAL PULL WORKER WITH A READING OF SR IN 80S. HL ON TORI G # 22 IS PRESENT AND INTACT; FLUSHING WELL. G-TUBE FEEDING IS STOPPED AT THIS TIME. SAFETY PRECAUTIONS IN PLACE; BED IN LOW POSITION AND LOCKED, RAILS UP X2, CALL LIGHT WITHIN REACH. WILL CONTINUE TO MONITOR PATIENT.
[2019-09-14 08:00] VITALS: BP 161/56
[2019-09-14] MEDS: CADEXOMER IODINE 40 GM TUBE TP SCH (09:00)
[2019-09-14] MEDS: LACTOBACILLUS RHAMNOSUS GG 1 EACH CAP.SPRINK GT SCH (09:00)
[2019-09-14] MEDS: DOCUSATE SODIUM 100 MG CAPSULE PO SCH ×2 (09:00→18:14)
[2019-09-14] MEDS: ZINC SULFATE 220 MG CAPSULE GT SCH (09:00)
[2019-09-14] MEDS: ASCORBIC ACID 500 MG TABLET GT SCH (09:00)
[2019-09-14] MEDS: MIDODRINE HCL (5MG) 5 MG TABLET PO SCH ×3 (09:48→18:14)
[2019-09-14] MEDS: BRIMONIDINE TARTRATE OPHT SOLN 5 ML BOTTLE EACHEYE SCH ×3 (09:49→18:14)
[2019-09-14] MEDS: CHLORHEXIDINE GLUCONATE 15 ML UDC MM SCH ×2 (09:49→22:16)
[2019-09-14] MEDS: LEVETIRACETAM SOL (5 ML) 100 MG/ML UDC GT SCH ×2 (09:49→22:15)
[2019-09-14 16:00] VITALS: BP 162/68
[2019-09-14] MEDS ORDERED: HEPARIN SODIUM, PORCINE 1,000 UNIT/ML VIAL ONE (16:23)
[2019-09-14] MEDS ORDERED: LIDOCAINE HCL/MPF 1% 30 ML VIAL IJ ONE (16:23)
[2019-09-14] MEDS ORDERED: ANESTHESIA TRAY IN PYXIS 1 EA TRAY MC ONE (16:41)
--- NOTE | 2019-09-14 16:49 | NUR ---
RT NOTE PT TRANSFERRED TO OR VIA AMBUBAG WITH NO COMPLICATIONS.
--- NOTE | 2019-09-14 18:44 | NUR ---
MANAGER TRUST CLOSING NOTES PATIENT IN BED, ASLEEP. PATIENT IS ON VENT SETTINGS BREATHING IS UNLABORED AND SYMMETRICAL. NO SIGNS OF PAIN PRESENT SUCH MOANING OR GUARDING. EXTERNAL [employer] OPERATIONS SPECIALIST WITH A READING OF SR IN 80. HL ON TORI G # 22 IS PRESENT AND INTACT; FLUSHING WELL. NEW PERMA-CATH PLACED TODAY TO THE LEFT FEMORAL. G-TUBE FEEDING RESUMED AT 1800 AND IS INFUSING NEPRO AT 50 MLS/HR. SAFETY PRECAUTIONS REMAIN IN PLACE; BED IN LOW POSITION AND LOCKED, RAILS UP X2, CALL LIGHT WITHIN REACH. WILL ENDORSE TO LINE WALKER NURSE.
--- NOTE | 2019-09-14 20:01 | NUR ---
MS/TELE/RN RECEIVED PATIENT APPEAR SLEEPING, APPEAR COMFORTABLE, NO DISTRESS NOTED, MECH VENT WORKING WELL, HOB ELEVATED, GT FEEDING INFUSING, NO RESIDUAL NOTE, WILL MONITOR.
[2019-09-14 20:37] VITALS: BP 147/84
[2019-09-14] MEDS: NEPRO 1,000 ML BOTTLE GT PRN (22:04)
[2019-09-14] MEDS: LATANOPROST EYE DROP 0.005% 2.5 ML BOTTLE EACHEYE SCH (22:13)
[2019-09-15 00:01] VITALS: BP 129/87
[2019-09-15] MEDS: BLOOD SUGAR DIAGNOSTIC 1 EACH STRIP IN SCH ×5 (00:08→23:05)
[2019-09-15] MEDS: INSULIN REGULAR, HUMAN 100 UNIT/ML 3 ML VIAL SQ PRN ×5 (00:11→23:04)
[2019-09-15] MEDS: INSULIN GLARGINE, 100 UNIT/ML CARTRIDGE SQ SCH ×2 (00:12→21:56)
[2019-09-15] MEDS: ALBUTEROL FS 2.5 MG/3 ML VIAL.NEB IH SCH ×4 (01:34→19:34)
[2019-09-15 04:00] VITALS: BP 126/80
--- NOTE | 2019-09-15 06:53 | NUR ---
MS/TELE/RN PATIENT IS SLEEPING, EASILY AROUSABLE, APPEAR COMFORTABLE, NO DISTRESS NOTED, HOB ELEVATED, GTUBE FEEDING INFUSING, ALL NEEDS ATTENDED AT THIS TIME, WILL CONTINUE TO MONITOR.
[2019-09-15 08:00] VITALS: BP 151/63
--- NOTE | 2019-09-15 08:00 | NUR ---
DIRECTOR OF INFECTION PREVENTION NOTES PATIENT IN BED ON VENTILATOR. OBTUNDED. VENT SETTINGS NOTED. BED IN LOW LOCKED POSITION. CALL LIGHT WITHIN REACH. WILL CONTINUE TO MONITOR.
[2019-09-15 08:02] LABS: CALCIUM, SERUM 9.2 mg/dL (8.5-10.1); CREATININE 5.6 mg/dL (0.6-1.3); POTASSIUM 3.9 mmol/L (3.5-5.1)
[2019-09-15] MEDS: DOCUSATE SODIUM 100 MG CAPSULE PO SCH ×2 (09:00→16:29)
[2019-09-15] MEDS: MIDODRINE HCL (5MG) 5 MG TABLET PO SCH ×3 (09:00→16:28)
[2019-09-15] MEDS: BRIMONIDINE TARTRATE OPHT SOLN 5 ML BOTTLE EACHEYE SCH ×3 (09:00→16:29)
--- NOTE | 2019-09-15 09:06 | NUR ---
ENVIRONMENTAL INSPECTOR NOTES PATIENT ON HD TOLERATING IT WELL. WILL CONTINUE TO MONITOR.
[2019-09-15] MEDS: CHLORHEXIDINE GLUCONATE 15 ML UDC MM SCH ×2 (11:08→21:28)
[2019-09-15] MEDS: LACTOBACILLUS RHAMNOSUS GG 1 EACH CAP.SPRINK GT SCH (11:08)
[2019-09-15] MEDS: LEVETIRACETAM SOL (5 ML) 100 MG/ML UDC GT SCH ×2 (11:08→21:29)
[2019-09-15] MEDS: ZINC SULFATE 220 MG CAPSULE GT SCH (11:08)
[2019-09-15] MEDS: FAMOTIDINE (20 MG) 20 MG TABLET GT SCH (11:08)
[2019-09-15] MEDS: ASCORBIC ACID 500 MG TABLET GT SCH (11:16)
[2019-09-15] MEDS: CADEXOMER IODINE 40 GM TUBE TP SCH (11:17)
[2019-09-15 12:00] VITALS: BP 159/90
--- NOTE | 2019-09-15 14:46 | NUR ---
RN NOTES PATIENT NEEDS H/H LEVEL FOR EPOGEN TO BE ADMINISTERED. ORDER OBTAINED AND AWAITING FOR RESULTS.
[2019-09-15 15:03] LABS: BASOPHILS # (AUTO) 0.1 /CMM (0.0-0.2); BASOPHILS % (AUTO) 0.7 % (0.0-2.0); EOSINOPHILS % (AUTO) 2.9 % (0.0-6.0); HEMATOCRIT 28 % (33-45); HEMOGLOBIN 9.1 g/dL (11.5-14.8); LYMPHOCYTES # (AUTO) 1.3 /CMM (0.8-4.8); LYMPHOCYTES % (AUTO) 17.6 % (20.0-44.0); MEAN CORPUSCULAR HGB CONC 33 g/dl (31.0-36.0); MEAN CORPUSCULAR VOLUME 97 fL (82-100); MONOCYTES # (AUTO) 0.8 /CMM (0.1-1.30); MONOCYTES % (AUTO) 10.8 % (2.0-12.0); PLATELET COUNT (AUTO) 329 /CMM (150-450); RED BLOOD CELL COUNT(AUTO) 2.87 MIL/uL (4.0-5.2); WHITE BLOOD COUNT (AUTO) 7.4 K/uL (4.3-11.0)
[2019-09-15 16:00] VITALS: BP 108/73
[2019-09-15 16:32] LABS: BAND % (MANUAL) 2 % (0.0-5.0); LYMPHOCYTES % (MANUAL) 19 % (16-48); MONOCYTES % (MANUAL) 10 % (0-11.0); NEUTROPHILS % (MANUAL) 66 (42-76); REACTIVE LYMPHOCYTES 3 % (0-0)
--- NOTE | 2019-09-15 17:34 | NUR ---
RT NOTE PATIENT FOUND ON MECHANICAL VENT WITH ORDERED SETTINGS, TOLERATING WELL. ALARMS ON AND AUDIBLE. VENT PLUGGED IN TO THE RED OUTLET. TRACH TUBE IN PLACE, PATENT, AND SECURED WITH TRACH TIE. AMBU BAG AND BACK UP TRACH BY THE BEDSIDE. NO DISTRESS AT THIS TIME. MONITOR THROUGHOUT SHIFT.
[2019-09-15] MEDS: EPOETIN ALFA (10,000 UNIT) 10,000 UNIT/ML VIAL SQ SCH (18:20)
--- NOTE | 2019-09-15 19:23 | NUR ---
MS RN NOTES PATIENT IN BED RESTING NO SOB OR ACUTE DISTRESS NOTED. ALL DUE MEDIATIONS ADMINISTERED. ALL NEEDS MET. NO ACUTE CHANGED DURING SHIFT. ENDORSED CARE TO PM SHIFT.
--- NOTE | 2019-09-15 19:30 | NUR ---
RN OPENING NOTES Received patient on bed responsive to pain, opens eyes. On vent with setting noted. With GTF infusing well, no N/V noted. No s/sx of distress noted at this time. All nursing needs attended. Due meds given as ordered.Kept on bed clean dry and comfortable. No new unusalities noted. Endorsed.
--- NOTE | 2019-09-15 19:38 | NUR ---
RT NOTE PT RECEIVED TRACHED ON MECHANICAL VENTILATION. AMBU BAG @ BEDSIDE. SX DONE, TRACH SECURED AND PATENT. ALARMS ON AND AUDIBLE. NO DISTRESS NOTED. CONT. PULSE OX CONNECTED. WILL MONITOR T/O SHIFT. Addendum: 09/15/19 at 1938 by ERIC RANDALL RT Amended: Links added.
[2019-09-15 20:00] VITALS: BP 106/73
[2019-09-15] MEDS: LATANOPROST EYE DROP 0.005% 2.5 ML BOTTLE EACHEYE SCH (22:16)
[2019-09-16] VITALS (14 sets, daily range): BP systolic 91–133; BP diastolic 42–78
[2019-09-16] MEDS: NEPRO 1,000 ML BOTTLE GT PRN ×2 (00:23→22:09)
[2019-09-16] MEDS: ALBUTEROL FS 2.5 MG/3 ML VIAL.NEB IH SCH ×4 (00:28→19:38)
[2019-09-16] MEDS: BLOOD SUGAR DIAGNOSTIC 1 EACH STRIP IN SCH ×4 (05:35→23:37)
--- NOTE | 2019-09-16 06:38 | NUR ---
RN CLOSING NOTES Patient on bed responsive to pain, opens eyes. Blood sugar noted 37. Nursing interventions provided, given D50 glucose as ordered. Rechecked and monitored blood sugar. Elysian juice and sugar given via G-tube. Blood sugar noted to 80. MD notified, no new orders at this time. On vent with setting noted. With GTF infusing well, no N/V noted. No s/sx of distress noted at this time. All nursing needs attended. Due meds given as ordered.Kept on bed clean dry and comfortable. No new unusalities noted. Endorsed.
--- NOTE | 2019-09-16 07:45 | NUR ---
TELE/RN NOTE THE PATIENT IS RECEIVED IN BED. PATIENT IS OBTUNDED. ON VENT, TRACH AND TOLERATING IT WELL. STONE CATH PRESENT WITH NO OUTPUT. NO BLADDER DISTENTION NOTED. GT FEEDING OF. STAN G 22 PATENT AND SALINE LOCKED. TELE BOX READING IS SINUS TACHY 103. BED LOW AND LOCKED. LEFT GROIN HD CATH PRESENT. BED LOW AND LOCKED. SIDE RAILS UP X3. CALL LIGHT WITHIN REACH. WILL CONTINUE TO MONITOR.
[2019-09-16] MEDS: DOCUSATE SODIUM 100 MG CAPSULE PO SCH ×2 (09:43→16:32)
[2019-09-16] MEDS: LEVETIRACETAM SOL (5 ML) 100 MG/ML UDC GT SCH ×2 (09:43→21:40)
[2019-09-16] MEDS: ASCORBIC ACID 500 MG TABLET GT SCH (09:43)
[2019-09-16] MEDS: ZINC SULFATE 220 MG CAPSULE GT SCH (09:43)
[2019-09-16] MEDS: LACTOBACILLUS RHAMNOSUS GG 1 EACH CAP.SPRINK GT SCH (09:43)
[2019-09-16] MEDS: CHLORHEXIDINE GLUCONATE 15 ML UDC MM SCH ×2 (09:43→21:40)
[2019-09-16] MEDS: MIDODRINE HCL (5MG) 5 MG TABLET PO SCH ×3 (09:44→16:42)
[2019-09-16] MEDS: BRIMONIDINE TARTRATE OPHT SOLN 5 ML BOTTLE EACHEYE SCH ×3 (09:56→16:42)
[2019-09-16] MEDS: CADEXOMER IODINE 40 GM TUBE TP SCH (09:57)
[2019-09-16 11:32] LABS: CALCIUM, SERUM 9.2 mg/dL (8.5-10.1); CREATININE 5.2 mg/dL (0.6-1.3); POTASSIUM 4.4 mmol/L (3.5-5.1)
[2019-09-16] MEDS: INSULIN REGULAR, HUMAN 100 UNIT/ML 3 ML VIAL SQ PRN ×2 (12:09→23:36)
--- NOTE | 2019-09-16 16:32 | NUR ---
TELE/RN NOTE COLACE 100 MG DUE AT 1700 IS NOT ADMINISTERED DUE TO PATIENT HAD VERY LARGE BM X2.
--- NOTE | 2019-09-16 17:12 | NUR ---
TELE/RN NOTE DR HEMPHILL CALLED BACK WITH AN ORDER OF STAT G/H. NOTED AND CARRIED OUT.
--- NOTE | 2019-09-16 17:13 | NUR ---
TELE/RN NOTE DR ROM GREEN IS AWARE AND WILL COME TO PUT SUTURE ON LEFT UPPER ARM OLD AV SHUNT.
--- NOTE | 2019-09-16 17:17 | NUR ---
TELE/RN NOTE RECEIVED ORDER FROM DR ROM GREEN FOR LIDOCAINE 1% INJ. NOTED AND CARRIED OUT.
[2019-09-16] MEDS ORDERED: LIDOCAINE 1% INJ 50 ML MDV IJ ONE (17:30)
--- NOTE | 2019-09-16 17:54 | NUR ---
TELE/RN NOTE DR ROM GREEN AT THE BEDSIDE PREPARING TO PLACE SUTURE ON LEFT UPPER ARM OLD AV FISTULA SITE.
--- NOTE | 2019-09-16 18:25 | NUR ---
TELE/RN NOTE RECEIVED STAT ORDER OF [address] ROM GREEN. THE ORDER IS READ BACK, VERIFIED. NOTED AND CARRIED OUT.
--- NOTE | 2019-09-16 19:00 | NUR ---
INDIA/LAWRENCE NOTE NOTED THAT THE PATIENT`S LEFT ARM WOUND DRESSING IS SOILED WITH STOOL. ATTEMPTED TO CHANGE THE DRESSING HOWEVER, EVEN BEFORE I COULD REMOVED THE DRESSING NOTED THAT THE SITE IS SHOOTING. APPLIED PRESSURE DRESSING RIGHT AWAY. Addendum: 09/16/19 at 2008 by VERONICA RIVAS RN INDIA/LAWRENCE NOTE THE ABOVE NOTED WAS FOR 1700.
--- NOTE | 2019-09-16 19:10 | NUR ---
TELE/RN NOTE DR ROM GREEN FINISHED SUTURING LEFT ARM OLD AV SHUNT OPENING. PLACED DRESSING DRESSING AND REINFORCED WITH PATRICIA WRAP. ROM GREEN ORDERED NOT TO OPEN THE DRESSING UNLESS THE PATIENT IS IN OR.
--- NOTE | 2019-09-16 19:26 | NUR ---
TELE/RN NOTE STARTED BLOOD TRANSFUSION PER ORDER WITH DR ROM GREEN SIGNING THE VIEWER.
[2019-09-16 19:34] LABS: HEMOGLOBIN 7.8 g/dL (11.5-14.8)
--- NOTE | 2019-09-16 19:40 | NUR ---
TELE/RN THE PATIENT OBTUNDED. VENT AND TRACH AND TOLERATING IT WELL. LEFT UPPER ARM OLD AV SHUNT PRESSURE DRESSING IN PLACE. BLOOD TRANSFUSING PER ORDER AND NO S/S ADVERSE REACTIONS NOTED. BED LOW AND LOCKED. SIDE RAILS UP X3. CALL LIGHT WITHIN REACH. WILL ENDORSE TO SUPERVISOR FERTILIZER.
--- NOTE | 2019-09-16 20:16 | NUR ---
INSPECTOR WATCH TRAIN PT OBTUNDED IN BED, O2 SAT 100%. BLOOD TRANSFUSION ONGOING. NO S/S OF ACTIVE BLEEDING AT THIS TIME. STABLE. SAFETY MEASURES AT ALL TIMES. WILL CONT TO MONITOR
--- NOTE | 2019-09-16 20:58 | NUR ---
RN NOTES/ORDERS FROM DR PEDRAZA: RECEIVED CALL FROM DR PEDRAZA AT 2030, PER MD HE WAS CALLED BY DR GREEN AND MADE HIM AWARE OF TH PT'S BLEEDING FISTULA. PER , TELEPHONE ORDERS RECEIVED FOLLOWS " PT WILL GO FOR SURGERY TOMORROW AM, 09/17/2019 AT 1100, OBTAIN CONSENT FOR PROCEDURE: LIGATE LEFT ARM FISTULA, OBTAIN CONSENT FOR ANESTHESIA, PLACE PT NPO POST MIDNIGHT, BMP, CBC IN AM, PT INR, TYPE AND SCREEN, HAVE 1 UNIT PRBC AVAILABLE TOMORROW AM FOR SURGERY. NOTIFIED MD THAT PT IS RECEIVING BLOOD TRANSFUSION AT THIS TIME, THERE'S 2 UN[address] PRBC ORDERED BY DR GREEN, PER THAT'S GOOD ENOUGH. ALL ORDERS READ BACK, VERIFIED AND CARRIED OUT.
[2019-09-16] MEDS: LATANOPROST EYE DROP 0.005% 2.5 ML BOTTLE EACHEYE SCH (22:24)
--- NOTE | 2019-09-16 22:59 | NUR ---
SPOKE TO SHAILESH KELLY OBTAINED CONSENT FOR SX TOMORROW AM AGREED WITH 1 RN WITNESS
--- NOTE | 2019-09-16 23:00 | NUR ---
S/P BLOOD TRANSFUSION NO A/R NOTED PT TOLERATED WELL
--- NOTE | 2019-09-16 23:30 | NUR ---
BLOOD SUGAR 166 MG/DL PT WILL BE NPO MIDNIGHT AND SURGERY TOMORROW 09/17/2019 AT 11 AM HELD R INSULIN AND ROUTINE LANTUS DUE HS Tenzin AWARE DR. SANTIAGO. CHARGE NURSE AWARE.
--- NOTE | 2019-09-16 23:30 | NUR ---
PAGED DR. BERGERON NEPHRO NOTED IV SITE TENDER ORDER INSERT MIDLINE READ BACK AND VERIFIED ORDERS NOTED AND CARRIED OUT
[2019-09-16] MEDS: INSULIN GLARGINE, 100 UNIT/ML CARTRIDGE SQ SCH (23:35)
[2019-09-17] VITALS (21 sets, daily range): BP systolic 92–128; BP diastolic 41–79
[2019-09-17] MEDS: ALBUTEROL FS 2.5 MG/3 ML VIAL.NEB IH SCH ×4 (01:40→20:09)
--- NOTE | 2019-09-17 03:53 | NUR ---
S/P 2 PRBC TRANSFUSION NO A/R NOTED
[2019-09-17] MEDS: INSULIN REGULAR, HUMAN 100 UNIT/ML 3 ML VIAL SQ PRN ×3 (05:30→23:10)
[2019-09-17] MEDS: BLOOD SUGAR DIAGNOSTIC 1 EACH STRIP IN SCH ×4 (05:30→23:08)
--- NOTE | 2019-09-17 05:38 | NUR ---
MS RN PT ON VENT SETTINGS TOLERATED WELL O2 SAT 100%. MONITORED ACCORDINGLY, NEEDS ATTENDED AND ANTICIPATED, KEPT CLEAN, DRY AND COMFORTABLE AT ALL TIMES, NO S/S OF DISTRESS, AM CARE RENDERED, REPOSITION EVERY 2 HOURS. NO ACTIVE BLEEDING AT THIS TIME. SAFETY MEASURES AT ALL TIMES. ENDORSE TO NEXT SHIFT POC.
--- NOTE | 2019-09-17 05:41 | NUR ---
MATCH UP WORKER BLOOD SUGAR 267 MG/DL PT R INSULIN HELD PT FOR NPO SURGERY TODAY AT 1100 ALL CONSENT SIGNED, OBTAINED CONSENT FROM DAUGHTER SHAILESH. PT NO S/S/OF DISTRESS. PT ON CARDIAC MONITORING SINUS TACHY 101 HR IN TELE MONITOR
[2019-09-17 05:54] LABS: BASOPHILS % (AUTO) 0.3 % (0.0-2.0); EOSINOPHILS % (AUTO) 0.5 % (0.0-6.0); HEMATOCRIT 27 % (33-45); HEMOGLOBIN 8.8 g/dL (11.5-14.8); LYMPHOCYTES # (AUTO) 1.2 /CMM (0.8-4.8); LYMPHOCYTES % (AUTO) 8.6 % (20.0-44.0); MEAN CORPUSCULAR HGB CONC 33 g/dl (31.0-36.0); MEAN CORPUSCULAR VOLUME 92 fL (82-100); MONOCYTES # (AUTO) 0.7 /CMM (0.1-1.30); MONOCYTES % (AUTO) 5.6 % (2.0-12.0); NEUTROPHILS # (AUTO) 11.4 /CMM (1.8-8.9); PLATELET COUNT (AUTO) 250 /CMM (150-450); RED BLOOD CELL COUNT(AUTO) 2.92 MIL/uL (4.0-5.2); WHITE BLOOD COUNT (AUTO) 13.4 K/uL (4.3-11.0)
[2019-09-17 06:07] LABS: CALCIUM, SERUM 9.2 mg/dL (8.5-10.1); CREATININE 5.7 mg/dL (0.6-1.3); POTASSIUM 4.2 mmol/L (3.5-5.1)
--- NOTE | 2019-09-17 07:50 | NUR ---
TELE/RN NOTE THE PATIENT IS REVIEVED IN BED. PATIENT IS ON VENT AND TRACH AND TOLERATING IT WELL. GT FEEDING OFF DUE TO PATIENT SCHEDULED TO HAVE SURGERY TODAY. ABDOMEN SOFT AND NON-DISTENDED. EXTERNAL TELE BOX READING IS 103. STAN G 22 PATENT AND SALINE LOCKED. LEFT UPPER ARM OLD AV SHUNT PRESSURE DRESSING WITH PATRICIA WRAP ON. NO S/S BLEEDING NOTED. BED LOW AND LOCKED. SIDE RAILS UP X3. CALL LIGHT WITHIN REACH. WILL CONTINUE TO MONITOR.
[2019-09-17] MEDS: FAMOTIDINE (20 MG) 20 MG TABLET GT SCH (08:48)
[2019-09-17] MEDS: DOCUSATE SODIUM 100 MG CAPSULE PO SCH ×2 (08:48→18:40)
[2019-09-17] MEDS: ASCORBIC ACID 500 MG TABLET GT SCH (08:48)
[2019-09-17] MEDS: MIDODRINE HCL (5MG) 5 MG TABLET PO SCH ×3 (08:48→18:40)
[2019-09-17] MEDS: LACTOBACILLUS RHAMNOSUS GG 1 EACH CAP.SPRINK GT SCH (08:48)
[2019-09-17] MEDS: LEVETIRACETAM SOL (5 ML) 100 MG/ML UDC GT SCH ×2 (08:48→21:59)
[2019-09-17] MEDS: ZINC SULFATE 220 MG CAPSULE GT SCH (08:48)
[2019-09-17] MEDS: CADEXOMER IODINE 40 GM TUBE TP SCH (08:49)
--- NOTE | 2019-09-17 09:31 | NUR ---
INFORMATION SENT:FACESHEET, PROGRESS NOTES 09/14, 24HRS REPORT, DC PLANNING, SURGERY OPERATIVE & COMPLETE, UR 09/14. FAXED TO:[phone] FAX SENT BY CAIO
--- NOTE | 2019-09-17 09:32 | NUR ---
INFORMATION SENT:FACESHEET, PROGRESS NOTES 09/15, 24HRS REPORT, FAXED TO:[phone] FAX SENT BY CAIO
[2019-09-17] MEDS: CHLORHEXIDINE GLUCONATE 15 ML UDC MM SCH ×2 (09:40→21:59)
[2019-09-17] MEDS: BRIMONIDINE TARTRATE OPHT SOLN 5 ML BOTTLE EACHEYE SCH ×3 (09:41→18:41)
[2019-09-17] MEDS ORDERED: IOHEXOL 240MG/ML 0 ML IV ONE (10:30)
[2019-09-17] MEDS ORDERED: LIDOCAINE HCL/MPF 1% 30 ML VIAL IJ ONE (10:31)
[2019-09-17] MEDS ORDERED: ANESTHESIA TRAY IN PYXIS 1 EA TRAY MC ONE (10:31)
[2019-09-17] MEDS ORDERED: BACITRACIN 50000 UNITS/VIAL ONE (10:39)
[2019-09-17] MEDS ORDERED: FENTANYL PF 100MCG/2ML AMPUL ONE (10:45)
[2019-09-17] MEDS ORDERED: ROCURONIUM BROMIDE 50 MG/5 ML ONE (10:45)
--- NOTE | 2019-09-17 11:00 | NUR ---
TELE/RN NOTE MIDLINE NURSE INSERTED RIGHT UPPER ARM MIDLINE G 18. THE PATIENT TOLERATED THE INSERTION WELL.
--- NOTE | 2019-09-17 11:03 | NUR ---
TELE/RN NOTE BLOOD SUGAR IS CHECK AND NOTED TO BE 282, HOWEVER, COVERAGE IS NOT GIVEN TO PATIENT NPO/GT FEEDING ON HOLD DUE TO GOING TO SURGERY. PATIENT IS PICKED UP BY OR STAFF AND RT GOING TO OR. LEFT THE UNIT AT 1103 AND IN STABLE CONDITION.
--- NOTE | 2019-09-17 12:20 | NUR ---
TELE/RN NOTE THE PATIENT BACK FROM OR. PATIENT IS OBTUNDED, EXHIBITS USUAL MENTAL STATUS. TOLERATES VENT AND TRACH WELL. NO MANIFESTATION OF DISTRESS NOTED. NOTED LEFT ARM DRESSING WITH PATRICIA WRAP. THE PATIENT IN STABLE CONDITION. WILL CONTINUE TO MONITOR.
--- NOTE | 2019-09-17 13:22 | NUR ---
MS/RN NOTE CHECKED THE BLOOD SUGAR PART OF POST-OP ASSESSMENT AND NOTED BLOOD SUGAR 299. WILL CONTINUE MONITORING THE PATIENT.
[2019-09-17] MEDS: ALBUMIN 25% 25 GM in PREMIX 1 EA IV PRN (15:27)
--- NOTE | 2019-09-17 15:41 | NUR ---
TELE/RN NOTE GT FEEDING NEPRO INFUSING AT 50 ML/HR. HOB ELEVATED. NO RESIDUAL NOTED. ABDOMEN SOFT AND NON-DISTENDED. WILL CONTINUE TO MONITOR.
--- NOTE | 2019-09-17 17:25 | NUR ---
TELE/RN NOTE DIALYSIS DONE AND 1 L WAS REMOVED. THE PATIENT TOLERATED DIALYSIS SESSION WELL.
--- NOTE | 2019-09-17 18:00 | NUR ---
TELE/RN NOTE VANCO POST DIALYSIS NOT ADMINISTERED DUE TO VANO TROUGH IS 22.
--- NOTE | 2019-09-17 18:35 | NUR ---
TELE/RN NOTE THE PATIENT IN BED AND OBTUNDED. PATIENTS BASELINE MENBTAL STATUS. TOLERATES VENT AND TRACH WELL. NO MANIFESTATION OF DISTRESS NOTED/ GT FEEDING NEPRO INFUSING AT 50 ML/HR AND NO RESIDUAL NOTED. EXTERNAL TELE BOX READING IS SR 83. ABDOMEN SOFT AND NON-DISTENDED. LEFT ARM POST-OP DRESSING IN PLACE AND NO S/S BLEEDING NOTED. BED LOW AND LOCKED. SIDE RAILS UP X3. CALL LIGHT WITHIN REACH. WILL ENDORSE TO SUPERINTENDENT METER TESTS.
[2019-09-17] MEDS: EPOETIN ALFA (10,000 UNIT) 10,000 UNIT/ML VIAL SQ SCH (18:39)
--- NOTE | 2019-09-17 19:20 | NUR ---
MS RN PT IN BED OBTUNDED 02 SAT 100% GT FEEDING INFUSING ORDERED STABLE AND NOT IN DISTRESS, SAFETY MEASURES AT ALL TIMES. WILL CONT TO MONITOR
[2019-09-17] MEDS: NEPRO 1,000 ML BOTTLE GT PRN (22:05)
[2019-09-17] MEDS: LATANOPROST EYE DROP 0.005% 2.5 ML BOTTLE EACHEYE SCH (22:06)
[2019-09-17] MEDS: INSULIN GLARGINE, 100 UNIT/ML CARTRIDGE SQ SCH (23:09)
[2019-09-18] VITALS: BP 143/83
[2019-09-18] MEDS: ALBUTEROL FS 2.5 MG/3 ML VIAL.NEB IH SCH ×4 (01:39→20:14)
[2019-09-18 04:00] VITALS: BP 118/74
[2019-09-18] MEDS: BLOOD SUGAR DIAGNOSTIC 1 EACH STRIP IN SCH ×3 (05:11→17:37)
[2019-09-18] MEDS: INSULIN REGULAR, HUMAN 100 UNIT/ML 3 ML VIAL SQ PRN ×3 (05:11→17:38)
--- NOTE | 2019-09-18 05:59 | NUR ---
MANIFEST/ORDER ORGANIZER PRINT ORDERS NO SIGNIFICANT CHANGES, PT OBTUNDED, TOLERATED VENT SETTINGS ORDERED. ON CARDIAC MONITORING SR 84 HR IN TELE MONITOR, MONITORED ACCORDINGLY, NEEDS ATTENDED AND ANTICIPATED, KEPT CLEAN, DRY AND COMFORTABLE AT ALL TIMES, NO S/S OF DISTRESS, TOLERATED GT FEEDING ORDERED. REPOSITION EVERY 2 HOURS. SAFETY MEASURES AT ALL TIMES. ENDORSE TO NEXT SHIFT POC.
[2019-09-18 08:00] VITALS: BP 125/78
[2019-09-18] MEDS: BRIMONIDINE TARTRATE OPHT SOLN 5 ML BOTTLE EACHEYE SCH ×3 (08:50→16:43)
[2019-09-18] MEDS: CADEXOMER IODINE 40 GM TUBE TP SCH (08:50)
[2019-09-18] MEDS: LACTOBACILLUS RHAMNOSUS GG 1 EACH CAP.SPRINK GT SCH (08:51)
[2019-09-18] MEDS: LEVETIRACETAM SOL (5 ML) 100 MG/ML UDC GT SCH ×2 (08:51→21:30)
[2019-09-18] MEDS: DOCUSATE SODIUM 100 MG CAPSULE PO SCH ×2 (08:51→16:42)
[2019-09-18] MEDS: ASCORBIC ACID 500 MG TABLET GT SCH (08:51)
[2019-09-18] MEDS: CHLORHEXIDINE GLUCONATE 15 ML UDC MM SCH ×2 (08:51→21:30)
[2019-09-18] MEDS: ZINC SULFATE 220 MG CAPSULE GT SCH (08:51)
[2019-09-18] MEDS: MIDODRINE HCL (5MG) 5 MG TABLET PO SCH ×3 (08:52→16:42)
[2019-09-18] MEDS: FAMOTIDINE (20 MG) 20 MG TABLET GT SCH (08:52)
[2019-09-18 11:23] LABS: BASOPHILS % (AUTO) 0.4 % (0.0-2.0); EOSINOPHILS % (AUTO) 2.9 % (0.0-6.0); HEMATOCRIT 24 % (33-45); LYMPHOCYTES # (AUTO) 0.9 /CMM (0.8-4.8); LYMPHOCYTES % (AUTO) 11.2 % (20.0-44.0); MEAN CORPUSCULAR HGB CONC 34 g/dl (31.0-36.0); MEAN CORPUSCULAR VOLUME 93 fL (82-100); MONOCYTES # (AUTO) 0.6 /CMM (0.1-1.30); MONOCYTES % (AUTO) 7.8 % (2.0-12.0); NEUTROPHILS # (AUTO) 5.9 /CMM (1.8-8.9); NEUTROPHILS % (AUTO) 77.7 % (43.0-81.0); PLATELET COUNT (AUTO) 194 /CMM (150-450); RED BLOOD CELL COUNT(AUTO) 2.56 MIL/uL (4.0-5.2); WHITE BLOOD COUNT (AUTO) 7.6 K/uL (4.3-11.0)
[2019-09-18 11:58] LABS: ALANINE AMINOTRANSFERASE < 6 U/L (12-78); ALBUMIN 2.7 g/dL (3.4-5.0); ALKALINE PHOSPHATASE 210 U/L (46-116); ASPARTATE AMINOTRANSFERASE 17 U/L (15-37); BILIRUBIN,TOTAL 0.6 mg/dL (0.2-1.0); CALCIUM, SERUM 9.1 mg/dL (8.5-10.1); CARBON DIOXIDE 27 mmol/L (21-32); CHLORIDE 97 mmol/L (98-107); GLUCOSE 348 mg/dL (74-106); MAGNESIUM 2.2 mg/dL (1.8-2.4); PHOSPHORUS 2.8 mg/dL (2.5-4.9); POTASSIUM 3.8 mmol/L (3.5-5.1); SODIUM SERUM 136 mmol/L (136-145); TOTAL PROTEIN, SERUM 7.5 g/dL (6.4-8.2); UREA NITROGEN, BLOOD 44 mg/dL (7-18)
[2019-09-18 16:00] VITALS: BP 122/89
--- NOTE | 2019-09-18 16:10 | NUR ---
CHANGED THE RATE OF FEEDING TO 45ML/HR FOR 24 HR PER LAST COSMETIC DENTIST NOTES.
[2019-09-18] MEDS ORDERED: NEPRO 1,000 ML BOTTLE GT PRN (17:00)
--- NOTE | 2019-09-18 18:38 | NUR ---
PATIENT OBTUNDED, IN STABLE CONDITION. LEFT ARM DRESSING CLEAN AND INTACT. PATIENT REPOSITIONED PER PROTOCOL. WOUND DRESSING CHANGED. PATIENT KEPT CLEAN AND DRY. IV LINE INTACT AND PATENT , FLUSHING WELL, HL.G-TUBE FEEDING ONGOING DIRECTED WITH NO RESIDUAL. SAFETY PRECAUTIONS IN PLACE, BED IN LOWEST AND LOCKED POSITION. WILL ENDORSE TO NEXT SHIFT FOR SHERRY.
--- NOTE | 2019-09-18 19:15 | NUR ---
RN OPENING NOTES RECEIVED PATIENT RESTING IN BED. OBTUNDED. NO SIGNS OF DISTRESS OR DISCOMFORT. BREATHING EVEN AND UNLABORED. [facility] WITH [facility] ORDERED. ON TELE MONITORING WITH SR 89 NOTED. HAS STAN MIDLINE INTACT, NO SIGNS OF INFILTRATION. HAS GTUBE INTACT, TOLERATING WELL WITH NO RESIDUAL NOTED. BED IN LOW LOCKED POSITION WITH SIDE RAILS X2. HOB ELEVATED. CALL LIGHT WITHIN REACH. WILL CONTINUE TO MONITOR.
[2019-09-18 20:00] VITALS: BP 137/79
[2019-09-18] MEDS: INSULIN GLARGINE, 100 UNIT/ML CARTRIDGE SQ SCH (21:32)
[2019-09-18] MEDS: LATANOPROST EYE DROP 0.005% 2.5 ML BOTTLE EACHEYE SCH (21:50)
[2019-09-19] VITALS: BP 121/71
[2019-09-19] MEDS: BLOOD SUGAR DIAGNOSTIC 1 EACH STRIP IN SCH ×4 (00:12→17:18)
[2019-09-19] MEDS: INSULIN REGULAR, HUMAN 100 UNIT/ML 3 ML VIAL SQ PRN ×4 (00:14→17:16)
[2019-09-19] MEDS: ALBUTEROL FS 2.5 MG/3 ML VIAL.NEB IH SCH ×3 (01:38→14:16)
[2019-09-19 04:00] VITALS: BP 127/73
--- NOTE | 2019-09-19 07:11 | NUR ---
RN CLOSING NOTES PATIENT RESTING IN BED. OBTUNDED. NO SIGNS OF DISTRESS OR DISCOMFORT. BREATHING EVEN AND UNLABORED. ON MECH VENT WITH SETTINGS ORDERED. ON TELE MONITORING WITH SR 80'S NOTED. HAS STAN MIDLINE INTACT, NO SIGNS OF INFILTRATION. HAS GTUBE INTACT, TOLERATING WELL WITH NO RESIDUAL NOTED THROUGH OUT SHIFT. ALL NEEDS MET. NO SIGNIFICANT CHANGES THROUGH THE NIGHT. PATIENT KEPT CLEAN DRY AND COMFORTABLE. BED IN LOW LOCKED POSITION WITH SIDE RAILS X2. HOB ELEVATED. CALL LIGHT WITHIN REACH. WILL ENDORSE TO AM SHIFT FOR SHERRY.
--- NOTE | 2019-09-19 07:35 | NUR ---
rn opening notes patient received on ventilator, NEPRO @ 45 ml per hour. STAN midline, L femoral HD cath, R hand 22 SL present. Insulin coverage was given by NOC RN. Bed at the lowest setting, call light within reach, side rails up x2.
[2019-09-19 08:00] VITALS: BP 132/75
[2019-09-19 08:17] LABS: CALCIUM, SERUM 9.3 mg/dL (8.5-10.1); CREATININE 5.4 mg/dL (0.6-1.3); POTASSIUM 3.6 mmol/L (3.5-5.1)
[2019-09-19] MEDS: CHLORHEXIDINE GLUCONATE 15 ML UDC MM SCH (08:36)
[2019-09-19] MEDS: FAMOTIDINE (20 MG) 20 MG TABLET GT SCH (08:36)
[2019-09-19] MEDS: LEVETIRACETAM SOL (5 ML) 100 MG/ML UDC GT SCH (08:36)
[2019-09-19] MEDS: CADEXOMER IODINE 40 GM TUBE TP SCH (08:37)
[2019-09-19] MEDS: ASCORBIC ACID 500 MG TABLET GT SCH (08:37)
[2019-09-19] MEDS: DOCUSATE SODIUM 100 MG CAPSULE PO SCH ×2 (08:37→16:28)
[2019-09-19] MEDS: MIDODRINE HCL (5MG) 5 MG TABLET PO SCH ×3 (08:37→16:29)
[2019-09-19] MEDS: LACTOBACILLUS RHAMNOSUS GG 1 EACH CAP.SPRINK GT SCH (08:37)
[2019-09-19] MEDS: BRIMONIDINE TARTRATE OPHT SOLN 5 ML BOTTLE EACHEYE SCH ×3 (08:37→16:29)
[2019-09-19] MEDS: ZINC SULFATE 220 MG CAPSULE GT SCH (08:37)
[2019-09-19] MEDS: ALBUMIN 25% 25 GM in PREMIX 1 EA IV PRN (12:50)
[2019-09-19 16:29] VITALS: BP 143/74
[2019-09-19] MEDS: EPOETIN ALFA (10,000 UNIT) 10,000 UNIT/ML VIAL SQ SCH (16:29)
--- NOTE | 2019-09-19 18:04 | NUR ---
rn closing notes patient remains on a ventilator at this time, with plans of discharging patient back to [facility]. No sob noted, patient shows no s/s of pain at this time. NEPRO @ 45 ml per hour x 24 hours feeding. blood glucose checked and insulin coverage given, no hypo glycemic episode noted. Bed at the lowest setting, side rails up x2, call light within reach. Will give report to NOC RN for SHERRY bedside.
--- NOTE | 2019-09-19 18:44 | NUR ---
FACER OPERATOR NOTES Patient discharged at this time. Patient taken by ACLS. report given with no further questions. Paperworks given to EMT. IV line to stay with the patient. Along with Damion and claudia.
== END 2019-09-19 18:53 | DRG 252 ==
LOC: ER 11:28 → TELE 13:04
PROVIDERS: ATTEND Internal Medicine
PROC: 5A1955Z Respiratory Ventilation, Greater than 96 Consecutive Hours (ICD-10-PCS; 2019-09-09)
PROC: 30233N1 Transfusion of Nonautologous Red Blood Cells into Peripheral Vein, Percutaneous Approach (ICD-10-PCS; 2019-09-09)
PROC: B543ZZA Ultrasonography of Right Jugular Veins, Guidance (ICD-10-PCS; principal; 2019-09-10)
PROC: 0JBQ0ZZ Excision of Right Foot Subcutaneous Tissue and Fascia, Open Approach (ICD-10-PCS; 2019-09-12)
PROC: 0JHM3XZ Insertion of Tunneled Vascular Access Device into Left Upper Leg Subcutaneous Tissue and Fascia, Percutaneous Approach (ICD-10-PCS; 2019-09-14)
PROC: 06HN33Z Insertion of Infusion Device into Left Femoral Vein, Percutaneous Approach (ICD-10-PCS; 2019-09-14)
PROC: B51CYZA Fluoroscopy of Left Lower Extremity Veins using Other Contrast, Guidance (ICD-10-PCS; 2019-09-14)
PROC: 05HY33Z Insertion of Infusion Device into Upper Vein, Percutaneous Approach (ICD-10-PCS; 2019-09-16)
PROC: 03L80ZZ Occlusion of Left Brachial Artery, Open Approach (ICD-10-PCS; 2019-09-17)
PROC: 05LA0ZZ Occlusion of Left Brachial Vein, Open Approach (ICD-10-PCS; 2019-09-17)
PROC: 5A1D70Z Performance of Urinary Filtration, Intermittent, Less than 6 Hours Per Day (ICD-10-PCS; 2019-09-19)
DX: T82.510A Breakdown (mechanical) of surgically created arteriovenous fistula, initial encounter (principal); N18.6 End stage renal disease; I13.2 Hypertensive heart and chronic kidney disease with heart failure and with stage 5 chronic kidney disease, or end stage renal disease; G93.1 Anoxic brain damage, not elsewhere classified; E44.0 Moderate protein-calorie malnutrition; J96.10 Chronic respiratory failure, unspecified whether with hypoxia or hypercapnia; J98.11 Atelectasis; G93.40 Encephalopathy, unspecified; Z99.11 Dependence on respirator [ventilator] status; L97.419 Non-pressure chronic ulcer of right heel and midfoot with unspecified severity; L97.429 Non-pressure chronic ulcer of left heel and midfoot with unspecified severity; L97.319 Non-pressure chronic ulcer of right ankle with unspecified severity; E11.22 Type 2 diabetes mellitus with diabetic chronic kidney disease; D50.9 Iron deficiency anemia, unspecified; E11.621 Type 2 diabetes mellitus with foot ulcer; E11.51 Type 2 diabetes mellitus with diabetic peripheral angiopathy without gangrene; E11.42 Type 2 diabetes mellitus with diabetic polyneuropathy; E11.622 Type 2 diabetes mellitus with other skin ulcer; I50.9 Heart failure, unspecified; G40.909 Epilepsy, unspecified, not intractable, without status epilepticus; H40.9 Unspecified glaucoma; E78.5 Hyperlipidemia, unspecified; I25.10 Atherosclerotic heart disease of native coronary artery without angina pectoris; K21.9 Gastro-esophageal reflux disease without esophagitis; R13.10 Dysphagia, unspecified; Z79.4 Long term (current) use of insulin; Z93.0 Tracheostomy status; Z93.1 Gastrostomy status; Z79.899 Other long term (current) drug therapy; Z79.51 Long term (current) use of inhaled steroids; Z99.2 Dependence on renal dialysis; Z90.710 Acquired absence of both cervix and uterus; Z87.820 Personal history of traumatic brain injury; E11.65 Type 2 diabetes mellitus with hyperglycemia; Z22.322 Carrier or suspected carrier of Methicillin resistant Staphylococcus aureus; M85.9 Disorder of bone density and structure, unspecified; L89.156 Pressure-induced deep tissue damage of sacral region; S41.102A Unspecified open wound of left upper arm, initial encounter; X58.XXXA Exposure to other specified factors, initial encounter; Y92.9 Unspecified place or not applicable; M62.40 Contracture of muscle, unspecified site; Y92.10 Unspecified residential institution as the place of occurrence of the external cause; Y71.2 Prosthetic and other implants, materials and accessory cardiovascular devices associated with adverse incidents
CPT/HCPCS: 31720; 36410; 36415; 71045-TC; 73610-TC; 73630-TC; 80048-TC; 80053-TC; 80076-TC; 80202-TC; 82962-TC; 83735-TC; 84100-TC; 84484-TC; 85025-TC; 85027-TC; 85610-TC; 85730-TC; 86850-TC; 86921-TC; 87040-TC; 87081-TC; 90935-TC; 94002-TC; 94003-TC; 94760-TC; 94762-TC; 99082-TC; A4216; A4623; A6253; A6403; A6407; A7526; C1750; C1769; G0378; J0690; J0885; J1644; J1815; J1953; J2405; J2704; J2710; J2765; J2997; J3010; J3370; J3490; J7030; J7040; J7050; J7060; P9016-BL; P9047; Q9966

== ENCOUNTER 2019-09-22 13:10 | Emergency (ER) | payer MEDICARE, OTHER ==
[~2019-09-22] VITALS: Ht 152.4 cm; Wt 54.4 kg
[~2019-09-22 13:10] MED LIST changes: +ASCO-352 GT; -RXVAN XX; -VIT500LI GT; +ZINC1CAP2 GT
--- NOTE | 2019-09-22 14:30 | NUR ---
RHONDA FROM [facility] TO ER BED 7. NON VERBAL, VENT AND TRACH DEPENDENT. NOT IN RESP DISTRESS. BEDBOUND. BROUGHT ON FOR TACHYCARDIA REPORTED AT 100BPM NOW AT 74BPM. RECEIVED CALL FROM LAWRENCE MONTIEL EARLIER FROM THE FACILITY REPORTING THAT PT IS BEING SENT FOR ABNORMAL EKG PER MD. PT IS PRESENTED W/ PICC ON STAN PICC WITH 2 LUMEN AND 22G ON R HAND. MD WAS AT BEDSIDE FOR EVAL. ORDERS RECEIVED NOTED AND CARRIED OUT. PT ON MONITOR.*
[2019-09-22 14:33] LABS: BASOPHILS # (AUTO) 0.1 /CMM (0.0-0.2); BASOPHILS % (AUTO) 0.8 % (0.0-2.0); EOSINOPHILS % (AUTO) 2.1 % (0.0-6.0); HEMATOCRIT 27 % (33-45); HEMOGLOBIN 8.6 g/dL (11.5-14.8); LYMPHOCYTES # (AUTO) 1.1 /CMM (0.8-4.8); LYMPHOCYTES % (AUTO) 11.8 % (20.0-44.0); MEAN CORPUSCULAR HGB CONC 32 g/dl (31.0-36.0); MEAN CORPUSCULAR VOLUME 96 fL (82-100); MONOCYTES # (AUTO) 0.6 /CMM (0.1-1.30); NEUTROPHILS # (AUTO) 7.1 /CMM (1.8-8.9); NEUTROPHILS % (AUTO) 78.3 % (43.0-81.0); PLATELET COUNT (AUTO) 215 /CMM (150-450); RED BLOOD CELL COUNT(AUTO) 2.81 MIL/uL (4.0-5.2); WHITE BLOOD COUNT (AUTO) 9.1 K/uL (4.3-11.0)
[2019-09-22 14:46] LABS: CALCIUM, SERUM 9.3 mg/dL (8.5-10.1); CARBON DIOXIDE 26 mmol/L (21-32); CHLORIDE 100 mmol/L (98-107); GLUCOSE 151 mg/dL (74-106); POTASSIUM 3.5 mmol/L (3.5-5.1); SODIUM SERUM 136 mmol/L (136-145); UREA NITROGEN, BLOOD 22 mg/dL (7-18)
[2019-09-22 14:51] LABS: ALANINE AMINOTRANSFERASE 6 U/L (12-78); ALBUMIN 2.8 g/dL (3.4-5.0); ALKALINE PHOSPHATASE 190 U/L (46-116); ASPARTATE AMINOTRANSFERASE 15 U/L (15-37); BILIRUBIN,DIRECT 0.2 mg/dL (0.0-0.2); BILIRUBIN,TOTAL 0.7 mg/dL (0.2-1.0); LIPASE 101 U/L (73-393); TOTAL PROTEIN, SERUM 8.1 g/dL (6.4-8.2)
[2019-09-22] MEDS ORDERED: NUT.237L67 GT (15:18)
[2019-09-22] MEDS ORDERED: VANC500V IV (15:19)
--- NOTE | 2019-09-22 15:38 | NUR ---
DR. ALPHONSE SO.
--- NOTE | 2019-09-22 17:07 | NUR ---
CALLED JENNIE ETA IS 1830 TRIP # [id number] PER GIDEON
--- NOTE | 2019-09-22 18:06 | NUR ---
[facility] TO THE FACILITY. REPORT GIVEN
--- NOTE | 2019-09-22 18:24 | NUR ---
JENNIE 118 AT PT BEDSIDE FOR TRANSPORT BACK TO [facility]. REPORT GIVEN.
[2019-09-22 18:28] VITALS: BP 158/61
== END 2019-09-22 18:41 | disposition home or self-care (01) ==
LOC: ER 13:14
DX: I12.0 Hypertensive chronic kidney disease with stage 5 chronic kidney disease or end stage renal disease (principal); E11.22 Type 2 diabetes mellitus with diabetic chronic kidney disease; N18.6 End stage renal disease; R00.0 Tachycardia, unspecified; Z99.2 Dependence on renal dialysis; Z93.1 Gastrostomy status; Z90.710 Acquired absence of both cervix and uterus; Z79.4 Long term (current) use of insulin; Z79.899 Other long term (current) drug therapy
CPT/HCPCS: 36415; 71045-TC; 80048-TC; 80076-TC; 83690-TC; 84484-TC; 85025-TC; 85730-TC

== ENCOUNTER 2019-11-07 15:28 | Inpatient (IN) | payer MEDICARE, OTHER ==
[~2019-11-07] VITALS: Ht 157.5 cm; Wt 64.9 kg
[~2019-11-07 15:28] MED LIST changes: +NUT.237L67 GT; -NUTR100037 GT; -VANC500F2 IV; +VANC500V IV
--- NOTE | 2019-11-07 15:35 | NUR ---
pt ozzie from dialysis center. per ems report, possible dialysis catheter malfunction. unable to finished dialysis. pt arrived w/ stable vitals. ventilator dependent w/ current setting ac 12 tv 500 fio2 40% peep of 5. awaiting md camarena.
--- NOTE | 2019-11-07 15:46 | NUR ---
dr cruz at bedside for eval.
--- NOTE | 2019-11-07 16:20 | NUR ---
RT RECD PT TRACHED INTACT AND SECURED ON [facility] VENT WITH FOLLOWING SETTINGS AC 12 500 +5 40% FOR CATHETER MALFUNCTION VENT PLUGGED IN RED OUTLET BAG AND MASK AT [facility] WILL CONT TO MONITOR Addendum: 11/07/19 at 1621 by HARJINDER CHEN RT Amended: Links added.
--- NOTE | 2019-11-07 16:26 | NUR ---
iv line started blood drawn and sent to lab.
[2019-11-07 16:32] LABS: BASOPHILS # (AUTO) 0.1 /CMM (0.0-0.2); BASOPHILS % (AUTO) 0.6 % (0.0-2.0); EOSINOPHILS % (AUTO) 2.5 % (0.0-6.0); HEMATOCRIT 37 % (33-45); LYMPHOCYTES # (AUTO) 1.3 /CMM (0.8-4.8); LYMPHOCYTES % (AUTO) 12.2 % (20.0-44.0); MEAN CORPUSCULAR HGB CONC 33 g/dl (31.0-36.0); MEAN CORPUSCULAR VOLUME 90 fL (82-100); MONOCYTES # (AUTO) 0.6 /CMM (0.1-1.30); MONOCYTES % (AUTO) 5.5 % (2.0-12.0); NEUTROPHILS # (AUTO) 8.2 /CMM (1.8-8.9); NEUTROPHILS % (AUTO) 79.2 % (43.0-81.0); PLATELET COUNT (AUTO) 305 /CMM (150-450); WHITE BLOOD COUNT (AUTO) 10.3 K/uL (4.3-11.0)
[2019-11-07 16:49] LABS: ALBUMIN 2.9 g/dL (3.4-5.0); BILIRUBIN,TOTAL 0.7 mg/dL (0.2-1.0); CALCIUM, SERUM 9.3 mg/dL (8.5-10.1); CREATININE 5.3 mg/dL (0.6-1.3); POTASSIUM 4.8 mmol/L (3.5-5.1); TOTAL PROTEIN, SERUM 8.7 g/dL (6.4-8.2)
--- NOTE | 2019-11-07 17:14 | NUR ---
NURSING SUP GAVE 101.
[2019-11-07] MEDS ORDERED: DORZ10DR10 RIGHTEYE (17:42)
[2019-11-07] MEDS ORDERED: AMIN30LI2 GT (17:42)
--- NOTE | 2019-11-07 17:57 | NUR ---
report given to leandro suazo. pt awaiitng transfer to floor.
[2019-11-07] MEDS ORDERED: DEXTROSE 50%-WATER 50 ML DISP.SYRIN IV PRN (18:30)
[2019-11-07] MEDS ORDERED: VANCOMYCIN 500 MG VIAL IV SCH (18:30)
[2019-11-07] MEDS ORDERED: HYDROCODONE/APAP 5/325MG 1 EACH TABLET GT PRN (18:30)
[2019-11-07] MEDS ORDERED: ACETAMINOPHEN 325 MG TABLET MC PRN ×3 (18:30→19:00)
[2019-11-07] MEDS ORDERED: ALBUTEROL FS 2.5 MG/3 ML VIAL.NEB NEB PRN (18:30)
[2019-11-07] MEDS ORDERED: MISCELLANEOUS MED 1 EA EA GT PRN (18:30)
[2019-11-07] MEDS ORDERED: Z GUARD REMEDY 2 OZ OINT TP PRN (18:30)
[2019-11-07] MEDS ORDERED: EPOETIN ALFA (10,000 UNIT) 10,000 UNIT/ML VIAL IV SCH (18:30)
[2019-11-07] MEDS ORDERED: ONDANSETRON HCL/PF 4 MG/2 ML VIAL IVP PRN (18:30)
[2019-11-07] MEDS ORDERED: ACETAMINOPHEN LIQUID 325 MG/10.1 ML UDC GT PRN (18:30)
--- NOTE | 2019-11-07 18:30 | NUR ---
RN OPENING NOTE PT RECEIVED LAYING DOWN COMFORTABLY IN THE BED. PT IS ABUSABLE TO TOUCH. PT IS ON MECH VENT WITH FOLLOWING SETTINGS AC 12 TV500 PEEP +5 Fi O2 40%. TRECH IS IN TACT DRESSING DRY.THERE IS NO S/S OF RESPIRATORY DISTRESS. PT HAS PROTRUDED TONGUE. ON TELE MONITOR SHOWING SR IN 90s. PT HAS AV FISTULA IN UPPER ARM AND 22 G IV ON L ARM. WILL ATTEMPT TO INSERT IV ON R ARM AND REMOVE THE IV ON L ARM.PT HAS G TUBE PATENT, FLUSHES WELL, NO RESEDUAL NOTED. SAFETY MEASURES IN PLACE BED AT LOWEST POSITION, SIDE RAILS UPX2, HOB ELEVATED AT 45 DEGREE, CALL LIGHT IN REACH , SEIZER PRECAUTION IN PLACE SIDE RAILS PADDED. WILL CONTINUE TO MONITOR.
[2019-11-07] MEDS: ALBUTEROL FS 2.5 MG/3 ML VIAL.NEB IH SCH (19:26)
[2019-11-07 20:00] VITALS: BP 153/84
--- NOTE | 2019-11-07 20:00 | NUR ---
RN NOTE IV INSERTION ATTEMPTED, WAS UNSUCCESSFUL. GOT ORDER FOR MIDLINE. NURSING SUPERVISE MADE AWARE.
[2019-11-07] MEDS ORDERED: FEE PK DOSING 1 MIN EA MC ONE (20:33)
[2019-11-07] MEDS: LEVETIRACETAM SOL (5 ML) 100 MG/ML UDC GT SCH (22:02)
[2019-11-07] MEDS: CHLORHEXIDINE GLUCONATE 15 ML UDC MM SCH (22:03)
[2019-11-07] MEDS: LATANOPROST EYE DROP 0.005% 2.5 ML BOTTLE EACHEYE SCH (22:06)
[2019-11-07] MEDS: NEPRO 1,000 ML BOTTLE GT PRN (22:48)
[2019-11-07] MEDS: INSULIN GLARGINE, 100 UNIT/ML CARTRIDGE SQ SCH (22:52)
[2019-11-08] VITALS: BP 155/95
[2019-11-08] MEDS: INSULIN REGULAR, HUMAN 100 UNIT/ML 3 ML VIAL SQ PRN ×5 (00:34→23:17)
[2019-11-08] MEDS: BLOOD SUGAR DIAGNOSTIC 1 EACH STRIP IN SCH ×5 (00:37→23:14)
[2019-11-08] MEDS: ALBUTEROL FS 2.5 MG/3 ML VIAL.NEB IH SCH ×4 (01:32→19:30)
[2019-11-08] MEDS: VANCOMYCIN 500 MG in IV D5W 100 ML IV PRN (03:43)
[2019-11-08 04:00] VITALS: BP 155/81
--- NOTE | 2019-11-08 06:30 | NUR ---
RN CLOSING NOTE PT REMAINES STABLE DURING MY SHIFT NO ACUTE CHANGES. WILL ENDORSE TO INCOMING SHIFT FOR SHERRY.
[2019-11-08 06:57] LABS: BASOPHILS # (AUTO) 0.1 /CMM (0.0-0.2); BASOPHILS % (AUTO) 0.7 % (0.0-2.0); EOSINOPHILS % (AUTO) 4.5 % (0.0-6.0); HEMATOCRIT 35 % (33-45); HEMOGLOBIN 11.1 g/dL (11.5-14.8); LYMPHOCYTES # (AUTO) 1.7 /CMM (0.8-4.8); LYMPHOCYTES % (AUTO) 18.6 % (20.0-44.0); MEAN CORPUSCULAR HGB CONC 32 g/dl (31.0-36.0); MEAN CORPUSCULAR VOLUME 91 fL (82-100); MONOCYTES % (AUTO) 10.8 % (2.0-12.0); NEUTROPHILS % (AUTO) 65.4 % (43.0-81.0); PLATELET COUNT (AUTO) 307 /CMM (150-450); RED BLOOD CELL COUNT(AUTO) 3.78 MIL/uL (4.0-5.2); WHITE BLOOD COUNT (AUTO) 9.2 K/uL (4.3-11.0)
[2019-11-08 07:52] LABS: CALCIUM, SERUM 9.9 mg/dL (8.5-10.1); MAGNESIUM 2.3 mg/dL (1.8-2.4); PHOSPHORUS 5.1 mg/dL (2.5-4.9); POTASSIUM 4.8 mmol/L (3.5-5.1)
[2019-11-08 08:00] VITALS: BP 98/34
[2019-11-08] MEDS: BRIMONIDINE TARTRATE OPHT SOLN 5 ML BOTTLE EACHEYE SCH ×3 (09:00→16:31)
[2019-11-08] MEDS ORDERED: DOCUSATE SODIUM 100 MG CAPSULE PO SCH (09:00)
[2019-11-08] MEDS: DORZOLAMIDE OPTH 2% 10 ML BOTTLE RIGHTEYE SCH ×3 (09:00→16:31)
[2019-11-08] MEDS: LACTOBACILLUS RHAMNOSUS GG 1 EACH CAP.SPRINK GT SCH (09:31)
[2019-11-08] MEDS: LEVETIRACETAM SOL (5 ML) 100 MG/ML UDC GT SCH ×2 (09:31→21:27)
[2019-11-08] MEDS: ASCORBIC ACID 500 MG TABLET GT SCH (09:31)
[2019-11-08] MEDS: VIT B CMPLX 3/FA/VIT C/BIOTIN 1 TAB TABLET GT SCH (09:32)
[2019-11-08] MEDS: CHLORHEXIDINE GLUCONATE 15 ML UDC MM SCH ×2 (09:32→21:27)
[2019-11-08] MEDS: ZINC SULFATE 220 MG CAPSULE GT SCH (09:32)
[2019-11-08] MEDS: FAMOTIDINE (20 MG) 20 MG TABLET GT SCH (09:32)
[2019-11-08] MEDS: NEUTRA PHOS 1 POWD.PACKET GT SCH ×3 (09:32→16:31)
[2019-11-08] MEDS: MIDODRINE HCL (5MG) 5 MG TABLET GT SCH ×3 (09:33→16:31)
[2019-11-08] MEDS: PROSOURCE / PROSTAT (PYXIS) 30 ML UDC GT SCH (09:34)
[2019-11-08] MEDS ORDERED: ALTEPLASE CATHFLO 2 MG/VIAL XX ONE ×3 (10:30→12:30)
[2019-11-08 12:00] VITALS: BP 131/82
[2019-11-08 16:00] VITALS: BP 133/45
[2019-11-08] MEDS: DOCUSATE SODIUM LIQ 100 MG/10 ML UDC GT SCH (16:31)
--- NOTE | 2019-11-08 18:33 | NUR ---
RN Closing Note Patient remains attached to [facility] vent, tolerating current settings, FiO2 40%, SPO2 100%. Tele monitor attached, SR HR 60s-70s. Dialysis completed today via L fem HD cath, animal nursery worker (gave [email or web address]). Dr. Dorothea Ferrari says L Fem cath "needs to be replaced because the flow is not good". Consent obtained from daughter Sharri and placed in chart. Equipment at bedside - Heparin, dialysis cath kit (20cm) , 6 1/2 size sterile gloves. Wound care completed as ordered, turned per protocol. Wounds measured. Nepro currently off, to be turned on @2300 per orders. STAN midline intact, TORI AV Fistula intact, L Femoral dialysis cath intact. No significant changes throughout shift.
[2019-11-08 20:00] VITALS: BP 158/74
[2019-11-08] MEDS: LATANOPROST EYE DROP 0.005% 2.5 ML BOTTLE EACHEYE SCH (21:27)
[2019-11-08] MEDS: INSULIN GLARGINE, 100 UNIT/ML CARTRIDGE SQ SCH (23:14)
[2019-11-09] VITALS: BP 133/58
[2019-11-09 04:00] VITALS: BP_SYST 131; BP_DIAS 47; BP_DIAS 49
[2019-11-09] MEDS: BLOOD SUGAR DIAGNOSTIC 1 EACH STRIP IN SCH ×3 (05:47→18:00)
[2019-11-09] MEDS: INSULIN REGULAR, HUMAN 100 UNIT/ML 3 ML VIAL SQ PRN ×3 (05:49→19:15)
[2019-11-09] MEDS: NEPRO 1,000 ML BOTTLE GT PRN (05:50)
--- NOTE | 2019-11-09 06:26 | NUR ---
RN NOTES, NO SIGNIFICANT CHANGE IN CONDITION DURING THE NIGHT, TOLERATED VENT SETTINGS WELL, NO SOB/DISTRESS NOTED, WILL HAVE HD CATH REPLACED TODAY, SUPPLIES AT BEDSIDE, WILL ENDORSE CONTINUITY OF CARE TO ONCOMING NURSE.
[2019-11-09 06:29] LABS: BASOPHILS # (AUTO) 0.1 /CMM (0.0-0.2); BASOPHILS % (AUTO) 0.9 % (0.0-2.0); EOSINOPHILS % (AUTO) 5.3 % (0.0-6.0); HEMATOCRIT 33 % (33-45); HEMOGLOBIN 10.5 g/dL (11.5-14.8); MEAN CORPUSCULAR HGB CONC 32 g/dl (31.0-36.0); MEAN CORPUSCULAR VOLUME 91 fL (82-100); MONOCYTES # (AUTO) 0.8 /CMM (0.1-1.30); MONOCYTES % (AUTO) 8.7 % (2.0-12.0); NEUTROPHILS % (AUTO) 64.1 % (43.0-81.0); PLATELET COUNT (AUTO) 291 /CMM (150-450); WHITE BLOOD COUNT (AUTO) 9.4 K/uL (4.3-11.0)
[2019-11-09 07:01] LABS: CALCIUM, SERUM 9.4 mg/dL (8.5-10.1); CREATININE 5.6 mg/dL (0.6-1.3); POTASSIUM 3.8 mmol/L (3.5-5.1)
--- NOTE | 2019-11-09 07:30 | NUR ---
opening note Received pt at bed, pt on Ventilator, tolerating settings well no s/sx of distress, A/O x1,G-tube is noted, Feeding formula Nepro running @ 60 cc/hr, tolerating well, Iv line noted on STAN midlene, klean and intact, L fem hd shunt notes, safety measeres implemented, bed in lowest position, call light within reach, will cont to monitor
[2019-11-09] MEDS: ALBUTEROL FS 2.5 MG/3 ML VIAL.NEB IH SCH ×4 (07:35→20:10)
[2019-11-09 08:00] VITALS: BP_SYST 138; BP_SYST 147; BP_DIAS 38; BP_DIAS 70
--- NOTE | 2019-11-09 08:06 | NUR ---
RT neb tx not given due to pending lab results
--- NOTE | 2019-11-09 08:07 | NUR ---
RT pt received on current vent settings. trached, portex 7. trach secure. ambu bag at hob. hob 30 at degrees. no sob/resp distress. alarms on and audible. no changes at this time. will continue to monitor.
[2019-11-09] MEDS: DOCUSATE SODIUM LIQ 100 MG/10 ML UDC GT SCH ×2 (08:15→16:51)
[2019-11-09] MEDS: MIDODRINE HCL (5MG) 5 MG TABLET GT SCH ×3 (08:15→16:50)
[2019-11-09] MEDS: ASCORBIC ACID 500 MG TABLET GT SCH (08:15)
[2019-11-09] MEDS: ZINC SULFATE 220 MG CAPSULE GT SCH (08:15)
[2019-11-09] MEDS: VIT B CMPLX 3/FA/VIT C/BIOTIN 1 TAB TABLET GT SCH (08:15)
[2019-11-09] MEDS: LACTOBACILLUS RHAMNOSUS GG 1 EACH CAP.SPRINK GT SCH (08:15)
[2019-11-09] MEDS: LEVETIRACETAM SOL (5 ML) 100 MG/ML UDC GT SCH ×2 (08:16→21:16)
[2019-11-09] MEDS: NEUTRA PHOS 1 POWD.PACKET GT SCH ×3 (08:16→16:51)
[2019-11-09] MEDS: FAMOTIDINE (20 MG) 20 MG TABLET GT SCH (08:16)
[2019-11-09] MEDS: PROSOURCE / PROSTAT (PYXIS) 30 ML UDC GT SCH (08:17)
[2019-11-09] MEDS: BRIMONIDINE TARTRATE OPHT SOLN 5 ML BOTTLE EACHEYE SCH ×3 (08:17→16:50)
[2019-11-09] MEDS: DORZOLAMIDE OPTH 2% 10 ML BOTTLE RIGHTEYE SCH ×3 (08:18→16:51)
[2019-11-09] MEDS: THERAHONEY GEL 1.5 OZ TUBE TP SCH (08:18)
[2019-11-09] MEDS: CHLORHEXIDINE GLUCONATE 15 ML UDC MM SCH ×2 (08:18→21:14)
[2019-11-09 12:00] VITALS: BP 144/37
[2019-11-09] MEDS: HEPARIN SODIUM, PORCINE 1000 UNIT/1 ML VIAL IV ONE ×2 (12:00→13:33)
--- NOTE | 2019-11-09 12:30 | NUR ---
RN note Didn't give heparin due scheduled procedure of dialysis cath change ; heparin is at pt bed site. Addendum: 11/09/19 at 1730 by Yanna Correa RN addendum ' Heparin on bed site is for following procedure, Dr. Brown notified, confirmed to Heparin at 1200 and resume tomorrow
[2019-11-09 16:00] VITALS: BP 142/65
--- NOTE | 2019-11-09 19:15 | NUR ---
RN CLOSING NOTES PT REMAINS IN BED, TOLERATING SETTINGS WELL, NO CHANGE OF STATUS, SAFETY MEASURES IMPLEMENTED, COMFORT NEED ARE MET, BED IN LOWEST POSITION,BED ALARM IS ON, CALL LIGHT WITHIN REACH, WILL ENDORSE TO WOODWORKER NURSE FOR SHERRY
--- NOTE | 2019-11-09 19:50 | NUR ---
RN OPENING NOTE RECEIVED PATIENT IN BED RESTING,CONFUSED OPEN EYES,ON VENTILATOR, NON VERBAL ROLL OUT FOR COVID RESULT IS PENDING,HR ON 70s,ON G-TUBE FEEDING,NEPRO 1.8 60CC/HR, G-TUBE SITE IS INTACT,NO RESIDUAL NOTED, CONTINUE TO MONITOR.
[2019-11-09 20:00] VITALS: BP 105/51
[2019-11-09] MEDS ORDERED: HEPARIN SODIUM, PORCINE 1000 UNIT/1 ML VIAL IV ONE (20:00)
[2019-11-09] MEDS: LATANOPROST EYE DROP 0.005% 2.5 ML BOTTLE EACHEYE SCH (21:15)
[2019-11-09] MEDS: INSULIN GLARGINE, 100 UNIT/ML CARTRIDGE SQ SCH (21:48)
[2019-11-10] VITALS: BP 169/76
[2019-11-10] MEDS: BLOOD SUGAR DIAGNOSTIC 1 EACH STRIP IN SCH ×5 (00:19→23:58)
[2019-11-10] MEDS: INSULIN REGULAR, HUMAN 100 UNIT/ML 3 ML VIAL SQ PRN ×3 (00:24→14:26)
[2019-11-10] MEDS: hydrALAZINE HCL IV 20 MG VIAL IV PRN ×2 (01:28→20:24)
[2019-11-10 04:00] VITALS: BP 161/68
--- NOTE | 2019-11-10 06:59 | NUR ---
RN CLOSING NOTE PATIENT REMAINS IN STABLE CONDITION,CONFUSED NONVERBAL,ON VENT AND TRACH,HR ON 80s, G-TUBE FEEDIN NEPHRO 1.8 60 CC/HR RUNINNING,ALL DUE MEDS GIVEN VIA G-TUBE SHE TOLERATED WELL,MID LINE ON RIGHT UPPER ARM INTACT PATENT,HD CATH ON LEFT FEMORAL,KEPT CLEAN AND DRY ALL THE TIME,HEAD OF BED ELEVATED ALL THE TIME,ALL NEEDS MET.WILL ENDORSE MORNING SHIFT FOR CONTINUATION OF CARE.
--- NOTE | 2019-11-10 07:00 | NUR ---
LUMBER TAILER- OPENING PATIENT OBTUNDED PATIENT ON VENT SETTINS PERCRIBED BY DR. LINDSEY 12, TV 500, FIO2 40 PEEP 5. NO SOB, NO ACUTE RESPIRATORY DISTRESS AT THIS TIME, VITAL STABLE, BUT HR 100'S PATIENT BM, R HEEL DIABETIC ULCER R LATERAL DIABETIC ULCER AND L HEEL ULCERM, SACRAL WOUND. GTUBE WITH1.8 NEPO @ 60ML/HR FOR 17 HRS. TORI MID AND L FEMORAL HD CATH BED LOCKED LOWEST POSITION CALL LIGHT WITH IN REACH ALL SAFETY MEASRE IMPLEMENTED PER HOSPITAL POLICY
[2019-11-10] MEDS: ALBUTEROL FS 2.5 MG/3 ML VIAL.NEB IH SCH ×3 (07:35→20:14)
[2019-11-10 08:00] VITALS: BP 121/72
--- NOTE | 2019-11-10 09:09 | NUR ---
RT neb tx not given due to pending lab results.
--- NOTE | 2019-11-10 10:00 | NUR ---
INCLUSION INTERNSHIP - DR COY AND Stanton MCKNIGHT WEB APPLICATIONS PROGRAMMER AT BEDSIDE FOR PROCEDURE HD
[2019-11-10] MEDS: LACTOBACILLUS RHAMNOSUS GG 1 EACH CAP.SPRINK GT SCH (10:40)
[2019-11-10] MEDS: DOCUSATE SODIUM LIQ 100 MG/10 ML UDC GT SCH ×2 (10:40→17:50)
[2019-11-10] MEDS: BRIMONIDINE TARTRATE OPHT SOLN 5 ML BOTTLE EACHEYE SCH ×3 (10:40→17:51)
[2019-11-10] MEDS: LEVETIRACETAM SOL (5 ML) 100 MG/ML UDC GT SCH ×2 (10:41→20:20)
[2019-11-10] MEDS: ZINC SULFATE 220 MG CAPSULE GT SCH (10:41)
[2019-11-10] MEDS: NEUTRA PHOS 1 POWD.PACKET GT SCH ×3 (10:41→17:50)
[2019-11-10] MEDS: CHLORHEXIDINE GLUCONATE 15 ML UDC MM SCH ×2 (10:42→20:20)
[2019-11-10] MEDS: THERAHONEY GEL 1.5 OZ TUBE TP SCH (10:42)
[2019-11-10] MEDS: ASCORBIC ACID 500 MG TABLET GT SCH (10:42)
[2019-11-10] MEDS: DORZOLAMIDE OPTH 2% 10 ML BOTTLE RIGHTEYE SCH ×3 (10:42→17:51)
[2019-11-10] MEDS: PROSOURCE / PROSTAT (PYXIS) 30 ML UDC GT SCH (10:42)
[2019-11-10] MEDS: MIDODRINE HCL (5MG) 5 MG TABLET GT SCH ×3 (10:43→17:50)
[2019-11-10] MEDS: FAMOTIDINE (20 MG) 20 MG TABLET GT SCH (10:44)
[2019-11-10] MEDS: VIT B CMPLX 3/FA/VIT C/BIOTIN 1 TAB TABLET GT SCH (10:46)
[2019-11-10 12:00] VITALS: BP 130/80
--- NOTE | 2019-11-10 15:25 | NUR ---
RT Neb tx not given due to pending lab results.
[2019-11-10 16:00] VITALS: BP 118/76
--- NOTE | 2019-11-10 18:22 | NUR ---
INTERNAL CONTROLS CONSULTANT CLOSING PATIENT NO SIGNIFICANT CHANGE AT THIS TIME . PATIENT REMAINS STABLE AT THIS TIME. PATIENT HD CATH REPLACE WITH NEW HD CRISTIAN CATH AT BED SIDE. HD COMPLETE 2L OUT . BED LOCKED LOWEST POSITION CALL LIGHT WITH IN REACH ALL SAFETY MEASURE IMPLEMENTED PER HOSPITAL POLICY
--- NOTE | 2019-11-10 19:28 | NUR ---
RN OPENING NOTE RECEIVED PATIENT IN BED RESTING,OPEN EYES CONFUSED,ON VENTILATOR BREATHING,HAS TRACH,NO SOB NOT ACUTE DISTRESS AT THIS TIME,ON G-TUBE FEEDING,NEPRO 1.8 60 CC/HR FOR 17 HOURS,G-TUBE SITE IS INTACT. HR 100s CONTINUE TO MONITOR.
[2019-11-10 20:00] VITALS: BP 177/46
--- NOTE | 2019-11-10 20:30 | NUR ---
RN NOTE HYDRALAZINE 10 MG IV PUSH GIVEN AT 2023 DUE TO SBP>160
[2019-11-10] MEDS: LATANOPROST EYE DROP 0.005% 2.5 ML BOTTLE EACHEYE SCH (21:02)
[2019-11-10] MEDS: INSULIN GLARGINE, 100 UNIT/ML CARTRIDGE SQ SCH (21:56)
[2019-11-11] VITALS: BP 130/56
[2019-11-11] MEDS: ALBUTEROL FS 2.5 MG/3 ML VIAL.NEB IH SCH ×4 (01:30→19:47)
[2019-11-11 04:00] VITALS: BP 144/50
[2019-11-11] MEDS: BLOOD SUGAR DIAGNOSTIC 1 EACH STRIP IN SCH ×4 (05:58→23:08)
[2019-11-11] MEDS: INSULIN REGULAR, HUMAN 100 UNIT/ML 3 ML VIAL SQ PRN ×4 (06:07→23:06)
--- NOTE | 2019-11-11 06:35 | NUR ---
RN CLOSING NOTE RESIDENT REMAINS IN STABLE CONDITION CONFUSED NO SOB NO ACUTE DISTRESS NOTED,ON VENTILATOR, HAS TRACH,ON G-TUBE FEEDING ALL DUE MEDS GIVEN VIA G-TUBE FEEDING TOLERATED WELL,HEAD OF BED ELEVATED ALL THE TIME, KEPT CLEAN AND DRY ALL THE TIME,WILL ENDORSE NEXT COMING SHIFT FOR CONTINUATION OF CARE.
--- NOTE | 2019-11-11 07:56 | NUR ---
RN OPENING NOTE RECEIVED PATIENT IN BED RESTING.PATIENT OPEN EYES CONFUSED.ON VENTILATOR BREATHING, PATIENT HAS A TRACH.NO SOB NOT ACUTE DISTRESS AT THIS TIME,ON G-TUBE FEEDING INTACT AND PATENT.BED LOCKED AND IN LOWEST POSITION. WILL CONTINUE TO MONITOR
[2019-11-11 08:00] VITALS: BP 147/60
[2019-11-11] MEDS: PROSOURCE / PROSTAT (PYXIS) 30 ML UDC GT SCH (08:40)
[2019-11-11] MEDS: NEUTRA PHOS 1 POWD.PACKET GT SCH ×3 (08:41→16:28)
[2019-11-11] MEDS: ASCORBIC ACID 500 MG TABLET GT SCH (08:41)
[2019-11-11] MEDS: LEVETIRACETAM SOL (5 ML) 100 MG/ML UDC GT SCH ×2 (08:41→22:17)
[2019-11-11] MEDS: DOCUSATE SODIUM LIQ 100 MG/10 ML UDC GT SCH ×2 (08:42→16:28)
[2019-11-11] MEDS: FAMOTIDINE (20 MG) 20 MG TABLET GT SCH (08:42)
[2019-11-11] MEDS: LACTOBACILLUS RHAMNOSUS GG 1 EACH CAP.SPRINK GT SCH (08:42)
[2019-11-11] MEDS: MIDODRINE HCL (5MG) 5 MG TABLET GT SCH ×3 (08:43→16:39)
[2019-11-11] MEDS: VIT B CMPLX 3/FA/VIT C/BIOTIN 1 TAB TABLET GT SCH (08:44)
[2019-11-11] MEDS: CHLORHEXIDINE GLUCONATE 15 ML UDC MM SCH ×2 (08:44→22:18)
[2019-11-11] MEDS: ZINC SULFATE 220 MG CAPSULE GT SCH (08:44)
[2019-11-11] MEDS: DORZOLAMIDE OPTH 2% 10 ML BOTTLE RIGHTEYE SCH ×3 (08:45→16:28)
[2019-11-11] MEDS: THERAHONEY GEL 1.5 OZ TUBE TP SCH (08:45)
[2019-11-11] MEDS: BRIMONIDINE TARTRATE OPHT SOLN 5 ML BOTTLE EACHEYE SCH ×3 (08:45→16:27)
[2019-11-11] MEDS: ACETAMINOPHEN 325 MG TABLET MC PRN (11:12)
[2019-11-11] MEDS: hydrALAZINE HCL IV 20 MG VIAL IV PRN (11:13)
[2019-11-11 12:00] VITALS: BP 164/70
[2019-11-11] MEDS: NEPRO 1,000 ML BOTTLE GT PRN (14:20)
[2019-11-11 16:00] VITALS: BP 116/52
--- NOTE | 2019-11-11 17:50 | NUR ---
RN NOTES PAST MEDICAL HISTORY HAS BEEN DOCUMENTED. WAS NOT COMPLETED UPON ADMISSION
--- NOTE | 2019-11-11 19:22 | NUR ---
RN CLOSING NOTE WILL ENDORSE TO PM NURSE.PT IS IN BED COMFORTABLE. SAFETY MEASURES IMPLEMENTED, BED IN LOWEST POSITION, LOCKED, SIDE RAILS UP, CALL LIGHT WITHIN REACH. ALL NEEDS AND ORDERS ADDRESSED DURING THE SHIFT.
--- NOTE | 2019-11-11 19:50 | NUR ---
RN OPENING NOTES RECEIVED REPORT FROM DANITA RN. FOUND Pt IN BED. Pt IS OBTUNDED ON MECH VENT. MV SETTINGS AT: AC 12, TV 500, FIO2 40%, PEEP 5, O2 SAT @ 100%. ON TELE MONITOR SR 70S-90s. IV ACCESS ON STAN MIDLINE, SL. NEW HD CATH PLACEMENT ON LEFT FEMORAL. PER REPORT FROM DANITA RN, PENDING DC ONCE PLACEMENT IS FOUND. Pt HAS TESTED NEGATIVE COVID X2. SAFETY MEASURES IN PLACE. BED LOW, LOCKED, HOB ELEVATED, SIDE RAILS UP. WILL CONTINUE TO MONITOR Pt's CONDITION AND SAFETY THROUGHOUT THE NIGHT.
[2019-11-11 20:00] VITALS: BP 136/96
[2019-11-11] MEDS: LATANOPROST EYE DROP 0.005% 2.5 ML BOTTLE EACHEYE SCH (22:45)
[2019-11-11] MEDS: INSULIN GLARGINE, 100 UNIT/ML CARTRIDGE SQ SCH (23:01)
--- NOTE | 2019-11-12 | NUR ---
RN NOTES BG 324. ADMINISTERED SCHEDULED 46UN OF LANTUS WITH ADDITIONAL INSULIN COVERAGE OF 8UN PER SLIDING SCALE. Pt IS ON GTF.
[2019-11-12 00:30] VITALS: BP 135/85
[2019-11-12] MEDS: ALBUTEROL FS 2.5 MG/3 ML VIAL.NEB IH SCH ×4 (01:31→20:26)
[2019-11-12 04:00] VITALS: BP 154/75
[2019-11-12] MEDS: BLOOD SUGAR DIAGNOSTIC 1 EACH STRIP IN SCH ×4 (05:33→23:22)
[2019-11-12] MEDS: INSULIN REGULAR, HUMAN 100 UNIT/ML 3 ML VIAL SQ PRN ×3 (05:43→23:24)
--- NOTE | 2019-11-12 06:00 | NUR ---
RN NOTES BG 267. ADMINISTERED 6UN OF INSULIN PER SLIDING SCALE. ON GTF
--- NOTE | 2019-11-12 07:20 | NUR ---
RN CLOSING NOTES NO SIGNIFICANT CHANGES IN Pt's CONDITION. NO S/S OF ACUTE DISTRESS OR SOB NOTED DURING THE NIGHT. Pt IS RESTING IN BED. ALL NEEDS MET AND ATTENDED TO. SAFETY MEASURES IN PLACE. ENDORSED TO DAYSHIFT RN FOR Pt's SHERRY.
--- NOTE | 2019-11-12 07:21 | NUR ---
RN OPENING NOTES RECEIVED PATIENT RESTING IN BED COMFORTABLY, AWAKENS TO PHYSICAL STIMULI. PT IS OBTUNDED, NON-VERBAL, AND BED BOUND. SHE IS ON MECH VENT VIA TRACH, TOLERATING SETTINGS WELL. TELE MONITOR SHOWING SR. MULTIPLE SKIN ISSUES PRESENT, WILL ADDRESS PER WOUND CARE PLAN. GTUBE IS PATENT AND INTACT, INFUSING NEPRO AT 60 ML.HR X18 HOURS. STAN MIDLINE AND L FEMORAL HD CATH IS PATENT AND INTACT. SAFETY MEASURES HAVE BEEN IMPLEMENTED, CALL LIGHT IS WITHIN REACH, BED IS IN LOWEST AND LOCKED POSITION, SIDE RAILS UP X2, WILL CONTINUE TO MONITOR FOR ANY CHANGES
[2019-11-12 08:00] VITALS: BP 157/77
[2019-11-12] MEDS: DOCUSATE SODIUM LIQ 100 MG/10 ML UDC GT SCH ×2 (08:09→16:21)
[2019-11-12] MEDS: ASCORBIC ACID 500 MG TABLET GT SCH (08:09)
[2019-11-12] MEDS: ZINC SULFATE 220 MG CAPSULE GT SCH (08:09)
[2019-11-12] MEDS: CHLORHEXIDINE GLUCONATE 15 ML UDC MM SCH ×2 (08:09→20:19)
[2019-11-12] MEDS: VIT B CMPLX 3/FA/VIT C/BIOTIN 1 TAB TABLET GT SCH (08:10)
[2019-11-12] MEDS: FAMOTIDINE (20 MG) 20 MG TABLET GT SCH (08:10)
[2019-11-12] MEDS: LEVETIRACETAM SOL (5 ML) 100 MG/ML UDC GT SCH ×2 (08:10→20:20)
[2019-11-12] MEDS: LACTOBACILLUS RHAMNOSUS GG 1 EACH CAP.SPRINK GT SCH (08:10)
[2019-11-12] MEDS: NEUTRA PHOS 1 POWD.PACKET GT SCH ×3 (08:10→16:21)
[2019-11-12] MEDS: PROSOURCE / PROSTAT (PYXIS) 30 ML UDC GT SCH (08:10)
[2019-11-12] MEDS: DORZOLAMIDE OPTH 2% 10 ML BOTTLE RIGHTEYE SCH ×3 (08:14→16:22)
[2019-11-12] MEDS: BRIMONIDINE TARTRATE OPHT SOLN 5 ML BOTTLE EACHEYE SCH ×3 (08:15→16:22)
[2019-11-12] MEDS: THERAHONEY GEL 1.5 OZ TUBE TP SCH (08:16)
[2019-11-12] MEDS: MIDODRINE HCL (5MG) 5 MG TABLET GT SCH ×3 (08:18→16:21)
--- NOTE | 2019-11-12 11:12 | NUR ---
FOLLOW UP WITH CM ISRAEL STILL NO BED AVAILABLE IN [facility].
[2019-11-12 12:00] VITALS: BP_SYST 131; BP_DIAS 77; BP_DIAS 86
--- NOTE | 2019-11-12 12:08 | NUR ---
RN NOTES 1300 DOSE MIDODRINE HAS BEEN HELD, PT BP WNL 131/86. WILL CONTINUE TO MONITOR
[2019-11-12] MEDS ORDERED: ALBUMIN 25% 25 GM in PREMIX 1 EA IV ONE (14:00)
[2019-11-12 16:00] VITALS: BP 145/55
[2019-11-12] MEDS: VANCOMYCIN 500 MG in IV D5W 100 ML IV PRN (16:21)
--- NOTE | 2019-11-12 17:23 | NUR ---
RN NOTES VANCO DOSE POST HD HAS BEEN ADMINISTERED. VANCO TROUGH OF 15
--- NOTE | 2019-11-12 19:01 | NUR ---
RN CLOSING NOTES PATIENT IS RESTING IN BED COMFORTABLY AT THIS TIME. NO S.SX OF DISTRESS. PT NEEDS HAVE BEEN MET, VITAL SIGNS ARE STABLE, NO ACUTE CHANGES OCCURRED THROUGHOUT THE SHIFT. SAFETY MEASURES HAVE BEEN IMPLEMENTED, CALL LIGHT IS WITHIN REACH, BED IS IN LOWEST AND LOCKED POSITION, SIDE RAILS UP X2, WILL ENDORSE TO NIGHTSHIFT RN FOR SHERRY.
[2019-11-12] MEDS: NEPRO 1,000 ML BOTTLE GT PRN (19:57)
[2019-11-12 20:00] VITALS: BP 124/58
--- NOTE | 2019-11-12 20:00 | NUR ---
CERAMIC COATER: RECEIVED REPORT FROM MANUEL BRAVO AT 1915. PT [facility] VENT TRACHE DEPENDENT WITH THE FF SETTING: AC 12, TV 500, FIO2 40%, PEEP 5, PORTEX #7, CONNECTED ON CONTINUOUS PULSE OXIMETRY, ON TELE MONITORING SINUS RHYTHM HR 85, AMBU BAG AVAILABLE AT BED SIDE. CLINICAL ALARMS CHECK AND AUDIBLE. GTUBE IN PLACED, ABDOMEN SOFT TO TOUCH WITH ACTIVE BOWEL SOUND HEARD UPON AUSCULTATION OF ABDOMEN. GTUBE EASILY FLUSHES WELL WITH WATER, NO RESIDUAL OBTAINED. PT RECEIVING GTUBE FEEDING OF NEPRO 60ML/HR. STAN MIDLINE IN PLACED, PATENT AND FLUSHING WELL, ON HL. PRECAUTIONS FOR LEFT ARM POSTED PT HAS LEFT AVSHUNT. ASPIRATION PRECAUTIONS AND SEIZURE PRECAUTION INITIATED. KEPT SIDE RAILS PADDED. SUCTION SET UP SECURED. BLE AND BUE KEPT OFFLOADED ON PILLOWS. SAFETY PRECAUTIONS FOR FALL INITIATED, CALL LIGHT IN REACH, WILL CONTINUE MONITORING PT.
[2019-11-12] MEDS: LATANOPROST EYE DROP 0.005% 2.5 ML BOTTLE EACHEYE SCH (21:25)
[2019-11-12] MEDS: INSULIN GLARGINE, 100 UNIT/ML CARTRIDGE SQ SCH (21:27)
--- NOTE | 2019-11-12 21:27 | NUR ---
BLOOD GLUCOSE 262: FINGERSTICK GLUCOSE RESULT IS 262, 46UNITS OF LANTUS ADMINISTERED SCHEDULED
--- NOTE | 2019-11-12 23:24 | NUR ---
accu check 274: fingerstick blood glucose check result is 274, 6units of insulin given per sliding scale, pt on gtube feeding
[2019-11-13] VITALS (9 sets, daily range): BP systolic 122–173; BP diastolic 51–85
[2019-11-13] MEDS: ALBUTEROL FS 2.5 MG/3 ML VIAL.NEB IH SCH ×4 (01:40→19:31)
[2019-11-13] MEDS: BLOOD SUGAR DIAGNOSTIC 1 EACH STRIP IN SCH ×4 (05:17→23:11)
[2019-11-13] MEDS: INSULIN REGULAR, HUMAN 100 UNIT/ML 3 ML VIAL SQ PRN ×4 (05:19→23:17)
--- NOTE | 2019-11-13 05:19 | NUR ---
ACCU CHECK 248: FINGERSTICK BLOOD GLUCOSE CHECK PERFORMED AND RESULT OBTAINED IS 248, 4UNITS OF INSULIN ADMINISTERED PER SLIDING SCALE. PT ON GTUBE FEEDING, WILL MONITOR FOR ANY S/S OF HYPOGLYCEMIA.
--- NOTE | 2019-11-13 06:47 | NUR ---
end of shift report: s/p hd 11/11 with 2l output, left femoral hd cath remains in placed, dressing c/d/i, no active bleeding noted. tele monitoring , sinus rhythm hr 84. pt tolerated mech vent setting well. new suction set up secured. remains afebrile. iv access remains patent and flushing well, on hl, no s/s of iv infiltration noted. gtube remains patent and flushing well, infusing with nepro at 60ml/hr x17hrs, to be off at 0800am. all due meds administered. accu check performed and insulin given per sliding scale coverage. wound care, am care, and linen change provided, suction pt via trache and oral as needed. plan of care: awaiting placement. ble and bue kept offloaded on pillows. vs remains stable, needs attended. safety precautions for fall remains engaged, call light in reach, will endorse to day rn for continuity of care.
--- NOTE | 2019-11-13 08:00 | NUR ---
TELE/VENT RN OPENING NOTES RECEIVED PT ON BED, ASLEEP, OBTUNDED, EYE OPEN. PT ON DEPENDENT MECHANICAL VENTILATOR, SATING 100%, CLINICAL ALARMED CHECKED, NO PRESENCE OF ACUTE RESPIRATORY DISTRESS. ABD SOFT AND NON DISTENDED WITH ACTIVE BOWEL SOUNDS, ON DIAPER, ANURIC. SKIN WARM TO TOUCH AND DRY, BLE OFFLOAD.NO S/SX OF PAIN AND DISCOMFORT NOTED. IV SITE AT RIGHT UPPER MIDLINE, FLUSHED WELL, NO S/S OF INFILTRATION. GTUBE IN PLACED IN AUSCULTATION, NO RESIDUAL NOTED, DRESSING INTACT AND CLEAN. TF OFF ORDERED. LEFT FEMORAL HD CATH IN PLACED. NO BP ON LEFT ARM DUE TO OLD AV SHUNT. BED IN LOW LOCKED POSITION, SR X2 UP FOR SAFETY. TEL MONITOR SHOWS SINUS RHYTHM 80. COVID 19 NEGATIVE. WILL CONTINUE PLAN OF CARE.
[2019-11-13] MEDS: BRIMONIDINE TARTRATE OPHT SOLN 5 ML BOTTLE EACHEYE SCH ×3 (08:36→16:18)
[2019-11-13] MEDS: DORZOLAMIDE OPTH 2% 10 ML BOTTLE RIGHTEYE SCH ×3 (08:36→16:18)
[2019-11-13] MEDS: PROSOURCE / PROSTAT (PYXIS) 30 ML UDC GT SCH (08:37)
[2019-11-13] MEDS: CHLORHEXIDINE GLUCONATE 15 ML UDC MM SCH ×2 (08:37→20:42)
[2019-11-13] MEDS: ZINC SULFATE 220 MG CAPSULE GT SCH (08:37)
[2019-11-13] MEDS: DOCUSATE SODIUM LIQ 100 MG/10 ML UDC GT SCH ×2 (08:37→16:18)
[2019-11-13] MEDS: LEVETIRACETAM SOL (5 ML) 100 MG/ML UDC GT SCH ×2 (08:37→20:42)
[2019-11-13] MEDS: NEUTRA PHOS 1 POWD.PACKET GT SCH ×3 (08:37→16:18)
[2019-11-13] MEDS: VIT B CMPLX 3/FA/VIT C/BIOTIN 1 TAB TABLET GT SCH (08:37)
[2019-11-13] MEDS: LACTOBACILLUS RHAMNOSUS GG 1 EACH CAP.SPRINK GT SCH (08:38)
[2019-11-13] MEDS: THERAHONEY GEL 1.5 OZ TUBE TP SCH (08:38)
[2019-11-13] MEDS: ASCORBIC ACID 500 MG TABLET GT SCH (08:38)
[2019-11-13] MEDS: MIDODRINE HCL (5MG) 5 MG TABLET GT SCH ×3 (08:38→16:18)
[2019-11-13] MEDS: FAMOTIDINE (20 MG) 20 MG TABLET GT SCH (08:38)
--- NOTE | 2019-11-13 11:30 | NUR ---
FIELD CROP GROWER NOTES PT WITH BM, REPOSITIONED TO LEFT SIDE LYING POSITION. BED BATH PROVIDED. WILL CONTINUE TO MONITOR
--- NOTE | 2019-11-13 16:51 | NUR ---
DIRECTOR OF INFECTION CONTROL NOTES PT HAD BM WITH DARK BROWN LOOSE CONSISTENCY. TREATMENT RENDERED ORDERED. OFFLOAD BLE AT ALL TIMES. WILL CONTINUE POC
--- NOTE | 2019-11-13 18:49 | NUR ---
BILINGUAL CALL CENTER REPRESENTATIVE CLOSING NOTES PT OBTUNDED, EYES OPEN, ORAL CARE PROVIDED. PT ON DEPENDENT MECHANICAL VENTILATOR SATING 100%, CLINICAL ALARM CHECKED, NOT IN ACUTE RESPIRATORY DISTRESS, SECRETION OF MEDIUM THICK WHITE IN CONSISTENCY. ABD SOFT AND NON DISTENDED WITH ACTIVE BOWEL SOUNDS, BM TODAY DARK BROWN LOOSE, ANURIC. G-TUBE IN PLACED, DRESSING INTACT, ON NEPRO 60 ML/HR X 17 HOURS, RESIDUAL 0 ML, GTUBE IN PLACED VIA AUSCULTATION, HOB ELEVATED. SKIN WARM TO TOUCH AND DRY, OFF LOAD BLE AT ALL TIMES, TREATMENT RENDERED ORDERED, BERE WELL. PT HAS NO S/SX OF PAIN AND DISCOMFORT, FLACC-0. IV SITE AT RIGHT UPPER MIDLINE PATENT IN FLUSHING, NO S/SX OF INFILTRATION. LEFT FEMORAL HD CATH DRESSING CLEAN. LEFT UPPER ARM AV SHUNT (OLD) DRESSING INTACT. TEL MONITOR SHOWS SINUS RHYTHM 71. BED IN LOW LOCKED POSITION, SR X3 UP FOR SAFETY, CLOSE IN NURSING STATION. ENDORSED PT CARE TO NEXT SHIFT.
--- NOTE | 2019-11-13 19:20 | NUR ---
RN OPENING NOTES: RECEIVED PT A/OX0-1; PATIENT IS OBTUNDED AND ONLY OPEN HER EYES FROM TIME TO TIME. PATIENT IN BED RESTING COMFORTABLY. PATIENT IN NO S/SX OF ACUTE DISTRESS AT THIS TIME. NO SOB NOTED. PATIENT'S BREATHING IS EVEN AND UNLABORED. PATIENT ON MECHANICAL VENT; SETTINGS PRESCRIBED; PT TOLERATED WELL. AMBU BAG AT BED SIDE ALARMS SET PER PROTOCOL AND AUDIBLE. VENT PLUGGED IN TO RED OUTLET. NO DISTRESS NOTED. PATIENT ON TELE MONITORING READING SINUS RHYTHM HR 80S. NOTED IV SITE ON R UA MIDLINE AND L FEMORAL HD CATH; PATENT IN INTACT,NO S/S OF INFECTION OR INFILTRATION. G TUBE FLUSHING AND PATENT; SITE CLEAN DRY AND INTACT; NO RESIDUAL NOTED; CLAMPED.SAFETY MEASURES HAVE BEEN PROVIDED AND IMPLEMENTED. PATIENT BED ALARM IS ON. HEAD OF BED ELEVATED. BED IS LOCKED, IN LOWEST POSITION AND SIDE RAILS UP. CALL LIGHT WITHIN REACH OF THE PATIENT. APPROPRIATE PRECAUTIONS IN PLACE. WILL CONTINUE TO MONITOR AND REASSESS FOR ANY CHANGES.
[2019-11-13] MEDS: LATANOPROST EYE DROP 0.005% 2.5 ML BOTTLE EACHEYE SCH (21:27)
[2019-11-13] MEDS: INSULIN GLARGINE, 100 UNIT/ML CARTRIDGE SQ SCH (23:11)
[2019-11-14] VITALS (8 sets, daily range): BP systolic 104–162; BP diastolic 58–87
--- NOTE | 2019-11-14 | NUR ---
RN NOTES NOTED R UA MIDLINE TO BE NOT PATENT AND DISLODGED. FACILITATED IV INSERTION ON THE R HAND #22; PATENT AND INTACT. BACK STAYER MADE AWARE.
--- NOTE | 2019-11-14 00:05 | NUR ---
RN NOTES NOTED PT'S TEMPT AT 99.4 @1200AM, COOLING MEASURES PROVIDED. COLOR ARTIST MADE AWARE.
[2019-11-14] MEDS: ALBUTEROL FS 2.5 MG/3 ML VIAL.NEB IH SCH ×4 (02:17→20:00)
[2019-11-14] MEDS: NEPRO 1,000 ML BOTTLE GT PRN (03:26)
[2019-11-14] MEDS: BLOOD SUGAR DIAGNOSTIC 1 EACH STRIP IN SCH ×4 (05:46→23:01)
[2019-11-14] MEDS: INSULIN REGULAR, HUMAN 100 UNIT/ML 3 ML VIAL SQ PRN ×4 (05:48→23:13)
--- NOTE | 2019-11-14 06:54 | NUR ---
RN CLOSING NOTE: PATIENT REMAINS IN ROOM. NO SIGNS OF RESPIRATORY DISTRESS. SAFETY MEASURES IMPLEMENTED, BED IN LOWEST POSITION, LOCKED, SIDE RAILS UP, CALL LIGHT WITHIN REACH. ALL NEEDS AND ORDERS ADDRESSED DURING THE SHIFT. ALL DUE MEDS GIVEN ORDERED & SCHEDULED ; PATIENT TOLERATED WELL.PATIENT KEPT CLEAN AND COMFORTABLE WITHIN THE SHIFT. ENDORSED TO INCOMING SHIFT RN FOR CONTINUITY OF CARE.
--- NOTE | 2019-11-14 07:30 | NUR ---
RN opening note PATIENT REMAINS IN BED, NO SIGNS OF RESPIRATORY DISTRESS. HOB ELEVATED, GT PATENT AND INTACT. NO S/S OF HYPO/HYPERGLYCEMIA NOTED. SAFETY MEASURES IMPLEMENTED, BED IN LOWEST POSITION, LOCKED, SIDE RAILS UP, CALL LIGHT WITHIN REACH. PATIENT KEPT CLEAN AND COMFORTABLE WITHIN THE SHIFT. WILL CONT TO MONITOR
[2019-11-14] MEDS: DORZOLAMIDE OPTH 2% 10 ML BOTTLE RIGHTEYE SCH ×3 (09:00→17:01)
[2019-11-14] MEDS: NEUTRA PHOS 1 POWD.PACKET GT SCH ×3 (09:01→16:57)
[2019-11-14] MEDS: THERAHONEY GEL 1.5 OZ TUBE TP SCH (09:01)
[2019-11-14] MEDS: BRIMONIDINE TARTRATE OPHT SOLN 5 ML BOTTLE EACHEYE SCH ×3 (09:01→17:01)
[2019-11-14] MEDS: DOCUSATE SODIUM LIQ 100 MG/10 ML UDC GT SCH ×2 (09:02→16:57)
[2019-11-14] MEDS: CHLORHEXIDINE GLUCONATE 15 ML UDC MM SCH ×2 (09:03→20:50)
[2019-11-14] MEDS: LEVETIRACETAM SOL (5 ML) 100 MG/ML UDC GT SCH ×2 (09:04→20:51)
[2019-11-14] MEDS: LACTOBACILLUS RHAMNOSUS GG 1 EACH CAP.SPRINK GT SCH (09:05)
[2019-11-14] MEDS: FAMOTIDINE (20 MG) 20 MG TABLET GT SCH (09:05)
[2019-11-14] MEDS: ASCORBIC ACID 500 MG TABLET GT SCH (09:05)
[2019-11-14] MEDS: VIT B CMPLX 3/FA/VIT C/BIOTIN 1 TAB TABLET GT SCH (09:05)
[2019-11-14] MEDS: ZINC SULFATE 220 MG CAPSULE GT SCH (09:05)
[2019-11-14] MEDS: PROSOURCE / PROSTAT (PYXIS) 30 ML UDC GT SCH (09:06)
[2019-11-14] MEDS: MIDODRINE HCL (5MG) 5 MG TABLET GT SCH ×3 (09:06→16:58)
[2019-11-14] MEDS: ACETAMINOPHEN 325 MG TABLET MC PRN (16:57)
--- NOTE | 2019-11-14 19:20 | NUR ---
RN OPENING NOTES: RECEIVED PT A/OX0-1; PATIENT IS OBTUNDED AND ONLY OPENS HER EYES FROM TIME TO TIME. PATIENT IN BED RESTING COMFORTABLY. PATIENT IN NO S/SX OF ACUTE DISTRESS AT THIS TIME. NO SOB NOTED. PATIENT'S BREATHING IS EVEN AND UNLABORED. PATIENT ON MECHANICAL VENT; SETTINGS PRESCRIBED; PT TOLERATED WELL. AMBU BAG AT BED SIDE ALARMS SET PER PROTOCOL AND AUDIBLE. VENT PLUGGED IN TO RED OUTLET. NO DISTRESS NOTED. PATIENT ON TELE MONITORING READING SINUS RHYTHM HR 80S. NOTED IV SITE ON R HAND # 22 AND L FEMORAL HD CATH; PATENT IN INTACT,NO S/S OF INFECTION OR INFILTRATION. G TUBE IN PLACE FLUSHING AND PATENT; SITE CLEAN DRY AND INTACT; NO RESIDUAL NOTED; CLAMPED. PATIENT ON NEPHRO DIET @ 60ML/HR; PT ABLE TOLERATE. SAFETY MEASURES HAVE BEEN PROVIDED AND IMPLEMENTED. PATIENT BED ALARM IS ON. HEAD OF BED ELEVATED. BED IS LOCKED, IN LOWEST POSITION AND SIDE RAILS UP. CALL LIGHT WITHIN REACH OF THE PATIENT. APPROPRIATE PRECAUTIONS IN PLACE. WILL CONTINUE TO MONITOR AND REASSESS FOR ANY CHANGES.
--- NOTE | 2019-11-14 19:42 | NUR ---
CROWN BUFFER CLOSING NOTES PT OBTUNDED, EYES OPEN, ORAL CARE PROVIDED. PT ON DEPENDENT MECHANICAL VENTILATOR SATING 100%, CLINICAL ALARM CHECKED, NOT IN ACUTE RESPIRATORY DISTRESS. ABD SOFT AND NON DISTENDED WITH ACTIVE BOWEL SOUNDS, BM TODAY DARK BROWN LOOSE, ANURIC. G-TUBE IN PLACED, DRESSING INTACT, ON NEPRO 60 ML/HR X 17 HOURS, RESIDUAL 0 ML, GTUBE IN PLACED VIA AUSCULTATION, HOB ELEVATED. SKIN WARM TO TOUCH AND DRY, OFF LOAD BLE AT ALL TIMES, TREATMENT RENDERED ORDERED, BERE WELL. PT HAS NO S/SX OF PAIN AND DISCOMFORT, LEFT FEMORAL HD CATH DRESSING CLEAN. LEFT UPPER ARM AV SHUNT (OLD) DRESSING INTACT. TEL MONITOR SHOWS SINUS RHYTHM 71. BED IN LOW LOCKED POSITION, SR X3 UP FOR SAFETY, CLOSE IN NURSING STATION. ENDORSED PT CARE TO NEXT SHIFT.
[2019-11-14] MEDS: LATANOPROST EYE DROP 0.005% 2.5 ML BOTTLE EACHEYE SCH (21:17)
[2019-11-14] MEDS: INSULIN GLARGINE, 100 UNIT/ML CARTRIDGE SQ SCH (23:01)
[2019-11-15] VITALS (9 sets, daily range): BP systolic 120–172; BP diastolic 47–90
[2019-11-15] MEDS: ALBUTEROL FS 2.5 MG/3 ML VIAL.NEB IH SCH ×4 (01:43→20:03)
[2019-11-15] MEDS: BLOOD SUGAR DIAGNOSTIC 1 EACH STRIP IN SCH ×4 (06:37→23:57)
[2019-11-15] MEDS: INSULIN REGULAR, HUMAN 100 UNIT/ML 3 ML VIAL SQ PRN ×4 (06:41→23:56)
--- NOTE | 2019-11-15 07:20 | NUR ---
RN OPENING NOTE: Received patient in bed and obtunded. On mechanical ventilation and tolerating settings well. No SOB and not in respiratory distress. Tele monitor showing sinus rhythm in the 90s. Noted with multiple skin issues. PEG tube patent and in place with feeding of Nepro @ 60mls/hr being tolerated well. IV site clean, dry, patent and intact. L femoral HD catheter secure and clean. Report received that patient is for discharge and awaiting placement . Call light in reach. Bed locked, low and at semi-woods's position. Side rails up x3. Safety ensured and observed. Will continue to monitor.
[2019-11-15] MEDS: DOCUSATE SODIUM LIQ 100 MG/10 ML UDC GT SCH ×2 (09:23→17:29)
[2019-11-15] MEDS: CHLORHEXIDINE GLUCONATE 15 ML UDC MM SCH ×2 (09:23→22:17)
[2019-11-15] MEDS: NEUTRA PHOS 1 POWD.PACKET GT SCH ×3 (09:23→17:29)
[2019-11-15] MEDS: LEVETIRACETAM SOL (5 ML) 100 MG/ML UDC GT SCH ×2 (09:24→22:18)
[2019-11-15] MEDS: FAMOTIDINE (20 MG) 20 MG TABLET GT SCH (09:24)
[2019-11-15] MEDS: ASCORBIC ACID 500 MG TABLET GT SCH (09:24)
[2019-11-15] MEDS: MIDODRINE HCL (5MG) 5 MG TABLET GT SCH ×3 (09:24→17:00)
[2019-11-15] MEDS: LACTOBACILLUS RHAMNOSUS GG 1 EACH CAP.SPRINK GT SCH (09:24)
[2019-11-15] MEDS: ZINC SULFATE 220 MG CAPSULE GT SCH (09:24)
[2019-11-15] MEDS: VIT B CMPLX 3/FA/VIT C/BIOTIN 1 TAB TABLET GT SCH (09:24)
[2019-11-15] MEDS: PROSOURCE / PROSTAT (PYXIS) 30 ML UDC GT SCH (09:26)
[2019-11-15] MEDS: DORZOLAMIDE OPTH 2% 10 ML BOTTLE RIGHTEYE SCH ×3 (09:27→17:30)
[2019-11-15] MEDS: THERAHONEY GEL 1.5 OZ TUBE TP SCH (09:27)
[2019-11-15] MEDS: BRIMONIDINE TARTRATE OPHT SOLN 5 ML BOTTLE EACHEYE SCH ×3 (09:27→17:29)
[2019-11-15] MEDS: NEPRO 1,000 ML BOTTLE GT PRN (11:40)
[2019-11-15] MEDS: ACETAMINOPHEN 325 MG TABLET MC PRN (11:42)
--- NOTE | 2019-11-15 15:17 | NUR ---
PER COMPENSATION SUPERVISOR STILL PENDING BED IN SNF MD AWARE.
[2019-11-15] MEDS: hydrALAZINE HCL IV 20 MG VIAL IV PRN (17:29)
--- NOTE | 2019-11-15 18:53 | NUR ---
RN CLOSING NOTE: No acute changes noted on shift. Seen by Buck Morelos DNP earlier with discharge order ready but placement pending. Patient remains in bed and obtunded. On mechanical ventilation and tolerating settings well. No SOB and not in respiratory distress. Tele monitor showing sinus rhythm in the 70s. Noted with multiple skin issues. PEG tube patent and in place with feeding of Nepro @ 60mls/hr being tolerated well. IV site clean, dry, patent and intact. L femoral HD catheter secure and clean. Call light in reach. Bed locked, low and at semi-woods's position. Side rails up x3. Safety ensured and observed. Due medications given. Treatment given as ordered. Will endorse to oncoming shift for SHERRY.
--- NOTE | 2019-11-15 19:11 | NUR ---
rn note: report given to Mark. Mouna RN
[2019-11-15] MEDS: LATANOPROST EYE DROP 0.005% 2.5 ML BOTTLE EACHEYE SCH (22:18)
[2019-11-15] MEDS: INSULIN GLARGINE, 100 UNIT/ML CARTRIDGE SQ SCH (22:19)
[2019-11-15] MEDS ORDERED: INSULIN GLARGINE, 100 UNIT/ML CARTRIDGE SQ ONE (22:35)
[2019-11-16] VITALS: BP 119/77
[2019-11-16] MEDS: ACETAMINOPHEN 325 MG TABLET MC PRN ×2 (00:44→14:33)
[2019-11-16] MEDS: ALBUTEROL FS 2.5 MG/3 ML VIAL.NEB IH SCH ×4 (01:52→20:22)
[2019-11-16 04:00] VITALS: BP 117/75
[2019-11-16] MEDS: INSULIN REGULAR, HUMAN 100 UNIT/ML 3 ML VIAL SQ PRN ×3 (05:29→17:51)
[2019-11-16] MEDS: BLOOD SUGAR DIAGNOSTIC 1 EACH STRIP IN SCH ×3 (05:40→17:23)
--- NOTE | 2019-11-16 07:30 | NUR ---
RN OPENING NOTES RECEIVED PATIENT RESTING IN BED COMFORTABLY. PATIENT IS OBTUNDED, ON MECHANICAL VENTILATOR WITH SETTINGS ORDERED. NO SIGNS OF ACUTE RESPIRATORY DISTRESS NOTED, SATURATING AT 100%. NO SOB NOTED. ON TELE MONITOR WITH SR NOTED, HR IN THE 80S. NEPRO @60CC/HR RUNNING ORDERED, PATIENT TOLERATING WELL, MINIMAL RESIDUAL NOTED. IV IN RIGHT HAND #22 INTACT, PATENT, AND FLUSHED WELL. DISCHARGE ORDERS ARE IN, PATIENT IS PENDING PLACEMENT TO SNF. SAFETY MAINTAINED, CALL LIGHT WITHIN REACH, WILL CONTINUE TO MONITOR CLOSELY.
[2019-11-16 08:00] VITALS: BP 127/72
[2019-11-16] MEDS: ASCORBIC ACID 500 MG TABLET GT SCH (09:03)
[2019-11-16] MEDS: FAMOTIDINE (20 MG) 20 MG TABLET GT SCH (09:03)
[2019-11-16] MEDS: LACTOBACILLUS RHAMNOSUS GG 1 EACH CAP.SPRINK GT SCH (09:03)
[2019-11-16] MEDS: ZINC SULFATE 220 MG CAPSULE GT SCH (09:04)
[2019-11-16] MEDS: DOCUSATE SODIUM LIQ 100 MG/10 ML UDC GT SCH ×2 (09:04→17:17)
[2019-11-16] MEDS: PROSOURCE / PROSTAT (PYXIS) 30 ML UDC GT SCH (09:05)
[2019-11-16] MEDS: BRIMONIDINE TARTRATE OPHT SOLN 5 ML BOTTLE EACHEYE SCH ×3 (09:05→17:17)
[2019-11-16] MEDS: MIDODRINE HCL (5MG) 5 MG TABLET GT SCH ×3 (09:05→17:16)
[2019-11-16] MEDS: NEUTRA PHOS 1 POWD.PACKET GT SCH ×3 (09:05→17:16)
[2019-11-16] MEDS: LEVETIRACETAM SOL (5 ML) 100 MG/ML UDC GT SCH ×2 (09:05→21:09)
[2019-11-16] MEDS: CHLORHEXIDINE GLUCONATE 15 ML UDC MM SCH ×2 (09:06→21:09)
[2019-11-16] MEDS: DORZOLAMIDE OPTH 2% 10 ML BOTTLE RIGHTEYE SCH ×3 (09:06→17:17)
[2019-11-16] MEDS: VIT B CMPLX 3/FA/VIT C/BIOTIN 1 TAB TABLET GT SCH (09:06)
[2019-11-16] MEDS: THERAHONEY GEL 1.5 OZ TUBE TP SCH (09:06)
[2019-11-16 12:00] VITALS: BP_SYST 136; BP_SYST 148; BP_DIAS 67; BP_DIAS 73
[2019-11-16 16:00] VITALS: BP 126/80
[2019-11-16] MEDS: NEPRO 1,000 ML BOTTLE GT PRN (17:23)
--- NOTE | 2019-11-16 19:04 | NUR ---
RN CLOSING NOTES NO ACUTE CHANGES TO PATIENT CONDITION DURING MY SHIFT. ALL PATIENT NEEDS MET, SAFETY WAS MAINTAINED, CALL LIGHT WITHIN REACH, ENDORSED TO PM NURSE FOR CONTINUITY OF CARE.
[2019-11-16 20:00] VITALS: BP_SYST 136; BP_SYST 156; BP_DIAS 79
[2019-11-16] MEDS: LATANOPROST EYE DROP 0.005% 2.5 ML BOTTLE EACHEYE SCH (21:10)
[2019-11-16] MEDS ORDERED: INSULIN GLARGINE, 100 UNIT/ML CARTRIDGE SQ ONE (21:36)
[2019-11-16] MEDS: INSULIN GLARGINE, 100 UNIT/ML CARTRIDGE SQ SCH (21:44)
[2019-11-17] VITALS (8 sets, daily range): BP systolic 142–182; BP diastolic 74–85
[2019-11-17] MEDS: BLOOD SUGAR DIAGNOSTIC 1 EACH STRIP IN SCH ×5 (00:01→23:32)
[2019-11-17] MEDS: INSULIN REGULAR, HUMAN 100 UNIT/ML 3 ML VIAL SQ PRN ×5 (00:04→23:34)
[2019-11-17] MEDS: ALBUTEROL FS 2.5 MG/3 ML VIAL.NEB IH SCH ×4 (01:26→19:36)
--- NOTE | 2019-11-17 07:30 | NUR ---
RN OPENING NOTES RECEIVED PT. IN BED. NO ACUTE DISTRESS NOTED. PT. OBTUNDED. PT. ON MECHANICAL VENTILATOR, P#7, AC 12, TV 500, FIO2 40%, PEEP 5, SATURATING WELL AT 100%. PT. ON TELE MONITOR, SR NOTED. PT. G-TUBE IN PLACE, INTACT, PATENT, FLUSHED WELL. PT. R HAND IV ACCESS INTACT, PATENT, FLUSHED WELL. PT. SAFETY MAINTAINED. CALL LIGHT WITHIN REACH. WILL CONTINUE TO MONITOR.
[2019-11-17] MEDS: LACTOBACILLUS RHAMNOSUS GG 1 EACH CAP.SPRINK GT SCH (08:46)
[2019-11-17] MEDS: CHLORHEXIDINE GLUCONATE 15 ML UDC MM SCH ×2 (08:46→21:22)
[2019-11-17] MEDS: DOCUSATE SODIUM LIQ 100 MG/10 ML UDC GT SCH ×2 (08:46→16:34)
[2019-11-17] MEDS: FAMOTIDINE (20 MG) 20 MG TABLET GT SCH (08:46)
[2019-11-17] MEDS: ZINC SULFATE 220 MG CAPSULE GT SCH (08:46)
[2019-11-17] MEDS: VIT B CMPLX 3/FA/VIT C/BIOTIN 1 TAB TABLET GT SCH (08:46)
[2019-11-17] MEDS: ASCORBIC ACID 500 MG TABLET GT SCH (08:46)
[2019-11-17] MEDS: LEVETIRACETAM SOL (5 ML) 100 MG/ML UDC GT SCH ×2 (08:47→21:22)
[2019-11-17] MEDS: MIDODRINE HCL (5MG) 5 MG TABLET GT SCH ×3 (08:47→16:35)
[2019-11-17] MEDS: NEUTRA PHOS 1 POWD.PACKET GT SCH ×3 (08:47→16:35)
[2019-11-17] MEDS: DORZOLAMIDE OPTH 2% 10 ML BOTTLE RIGHTEYE SCH ×3 (08:48→16:48)
[2019-11-17] MEDS: PROSOURCE / PROSTAT (PYXIS) 30 ML UDC GT SCH (08:48)
[2019-11-17] MEDS: THERAHONEY GEL 1.5 OZ TUBE TP SCH (08:48)
[2019-11-17] MEDS: BRIMONIDINE TARTRATE OPHT SOLN 5 ML BOTTLE EACHEYE SCH ×3 (08:49→16:48)
[2019-11-17] MEDS: hydrALAZINE HCL IV 20 MG VIAL IV PRN (16:57)
--- NOTE | 2019-11-17 18:52 | NUR ---
PATIENT IN BED. NO ACUTE DISTRESS NOTED. PATIENT OBTUNDED. PATIENT ON MECHANICAL VENTILATOR, P#7, AC 12, TV 500, FIO2 40%, PEEP 5, SATURATING WELL AT 100%. PATIENT ON TELE MONITOR, NORMAL SINUS RHYTHM NOTED. PT. G-TUBE IN PLACE, INTACT, PATENT, FLUSHED WELL. PT. R HAND IV ACCESS INTACT, PATENT, FLUSHED WELL. PT. SAFETY MAINTAINED. CALL LIGHT WITHIN REACH. WILL ENDORSE PLAN OF CARE TO ONCOMING NURSE FOR CONTINUITY OF CARE.
--- NOTE | 2019-11-17 19:30 | NUR ---
RN OPENING NOTES: Received pt in bed obtunded, on mechanical ventilation, tolerating settings well. No SOB or respiratory distress noted. SR on tele monitor. RH #22 patent and flushing. Dressing c/d/i. GT site patent and flushed. Minimal residual noted. GTF Nepro infusing at 60ml/hr. Tolerating well. Safety measures in place. Will continue to monitor.
--- NOTE | 2019-11-17 20:16 | NUR ---
RT NOTE Pt rec'd trached on [facility] vent on AC mode. Pt shows no signs of resp distress or sob. trach is patent and secured. Alarms are set and audible. Vent plugged into red outlet. Ambu bag bedside. Will continue to monitor. Addendum: 11/17/19 at 2016 by ERIC RANDALL RT Amended: Links added.
[2019-11-17] MEDS: LATANOPROST EYE DROP 0.005% 2.5 ML BOTTLE EACHEYE SCH (21:22)
[2019-11-17] MEDS: INSULIN GLARGINE, 100 UNIT/ML CARTRIDGE SQ SCH (21:32)
[2019-11-18] VITALS (7 sets, daily range): BP systolic 86–173; BP diastolic 50–87
[2019-11-18] MEDS: ALBUTEROL FS 2.5 MG/3 ML VIAL.NEB IH SCH ×4 (01:03→19:50)
[2019-11-18] MEDS: NEPRO 1,000 ML BOTTLE GT PRN (04:35)
[2019-11-18] MEDS: BLOOD SUGAR DIAGNOSTIC 1 EACH STRIP IN SCH ×4 (05:33→23:59)
--- NOTE | 2019-11-18 06:54 | NUR ---
RN CLOSING NOTES: Pt remains on mechanical ventilation, tolerating settings well. No SOB or respiratory distress noted during shift. SR on tele monitor. No acute changes noted throughout shift. GTF Nepro infusing at 60ml/hr. IV site on RH #22 patent and flushing. Dressing c/d/i. Wound tx as rendered. All meds administered as ordered. Safety measures in place. Will endorse to AM nurse for SHERRY.
--- NOTE | 2019-11-18 08:00 | NUR ---
INSURANCE SALESMAN NOTES RECEIVED PATIENT WITH NO RESPIRATORY DISTRESS, ON [facility] VENTILATOR WITH PRESCRIBED SETTINGS. PATIENT WITH NO S/S OF ANY DISCOMFORT AT THIS TIME. PATIENT'S SKIN WARM TO TOUCH, IV ACCESS SITE INTACT AND PATENT ON THE RT HAND #22G. GT INTACT AND PATENT WITH NEPRO RUNNING AT 60ML/HR, TOLERATING WELL, HOB UP. PATIENT'S NEEDS ATTENDED, BED ON LOWEST LOCKED POSITION, SIDE RAILS UP X4 AND PADDED. WILL CONTINUE TO MONITOR.
[2019-11-18] MEDS: LEVETIRACETAM SOL (5 ML) 100 MG/ML UDC GT SCH ×2 (10:04→21:44)
[2019-11-18] MEDS: DOCUSATE SODIUM LIQ 100 MG/10 ML UDC GT SCH ×2 (10:04→17:33)
[2019-11-18] MEDS: FAMOTIDINE (20 MG) 20 MG TABLET GT SCH (10:04)
[2019-11-18] MEDS: VIT B CMPLX 3/FA/VIT C/BIOTIN 1 TAB TABLET GT SCH (10:04)
[2019-11-18] MEDS: NEUTRA PHOS 1 POWD.PACKET GT SCH ×3 (10:04→17:33)
[2019-11-18] MEDS: CHLORHEXIDINE GLUCONATE 15 ML UDC MM SCH ×2 (10:04→21:44)
[2019-11-18] MEDS: LACTOBACILLUS RHAMNOSUS GG 1 EACH CAP.SPRINK GT SCH (10:04)
[2019-11-18] MEDS: ZINC SULFATE 220 MG CAPSULE GT SCH (10:04)
[2019-11-18] MEDS: ASCORBIC ACID 500 MG TABLET GT SCH (10:05)
[2019-11-18] MEDS: MIDODRINE HCL (5MG) 5 MG TABLET GT SCH ×4 (10:05→17:56)
[2019-11-18] MEDS: PROSOURCE / PROSTAT (PYXIS) 30 ML UDC GT SCH (10:06)
[2019-11-18] MEDS: BRIMONIDINE TARTRATE OPHT SOLN 5 ML BOTTLE EACHEYE SCH ×3 (10:10→17:34)
[2019-11-18] MEDS: DORZOLAMIDE OPTH 2% 10 ML BOTTLE RIGHTEYE SCH ×3 (10:10→17:34)
[2019-11-18] MEDS: THERAHONEY GEL 1.5 OZ TUBE TP SCH (12:15)
[2019-11-18] MEDS: INSULIN REGULAR, HUMAN 100 UNIT/ML 3 ML VIAL SQ PRN ×2 (12:34→18:30)
--- NOTE | 2019-11-18 13:00 | NUR ---
HEMODIALYSIS DONE WITH 1.5 LITERS OUTPUT. BP 124/59 HR 102.PT HAS NO S/S OF DISTRESS OR DISCOMFORT.
--- NOTE | 2019-11-18 17:00 | NUR ---
TRANSFERRED PT TO [address] [place] [address] [id number] .GAVE REPORT TO LAWRENCE JACKSON. PT WAS STABLE DURING TRANSFER WITH STABLE V/S.
--- NOTE | 2019-11-18 17:10 | NUR ---
MOUNTING INSPECTOR NOTES RECEIVED PATIENT WITH NO RESPIRATORY DISTRESS, ON [facility] VENTILATOR WITH PRESCRIBED SETTINGS. PATIENT WITH NO S/S OF ANY DISCOMFORT AT THIS TIME. PATIENT'S SKIN WARM TO TOUCH, IV ACCESS SITE INTACT AND PATENT ON THE RT HAND #22G. GT INTACT AND PATENT WITH NEPRO RUNNING AT 60ML/HR, TOLERATING WELL, HOB UP. PATIENT'S NEEDS ATTENDED, BED ON LOWEST LOCKED POSITION, SIDE RAILS UP X4 AND PADDED. WILL CONTINUE TO MONITOR.
--- NOTE | 2019-11-18 17:30 | NUR ---
RT NOTE: RECEIVED TRACH PT ON ORDERED NOTED VENT SETTINGS. NO RESPIRATORY DISTRESS NOTED. TRACH CHECKED SECURE AND PATENT. TRANSPORTED PT TO NEW ROOM [id number] WITH RN WITH NO COMPLICATIONS NOTED. SXD AND LAVAGE Q ROUND AND NEEDED. TXS GIVEN WITH NO ADVERSE EFFECTS NOTED. TRACH CARE DONE. EMERGENCY EQUIPMENT @ BEDSIDE. ALARMS ON CHECKED AND AUDIBLE. VENT PLUGGED INTO RED OUTLET.
--- NOTE | 2019-11-18 19:00 | NUR ---
BUSINESS OFFICE ASSISTANT NOTES PATIENT IN NO ACUTE DISTRESS, [facility] VENT ON PRESCRIBED SETTINGS, NO S/S OF ANY DISCOMFORT AT THIS TIME. PATIENT ON FRUIT TRIMMER SR 80S. PATIENT'S SKIN WARM TO TOUCH, IV ACCESS SITE INTACT AND PATENT. GT INTACT AND PATENT. PATIENT'S NEEDS ATTENDED, BED ON LOWEST LOCKED POSITION, CALL LIGHT WITHIN REACH. WILL ENDORSE TO ONCOMING NURSE.
--- NOTE | 2019-11-18 19:30 | NUR ---
telemetry nurse opening note received patient in bed. patient is obtunded, on mechanical ventilator, portex #7, ac 12, tv 500 fio2 40% peep 5. in no s/s resp distress. no s/s pain at this time. external tele monitor reads sr hr 85. in no apparent distress. iv access in right hand#22 patent and saline locked. gtube is present, residual 30ml, flushed with no resistance, feeding nepro@60ml/hr. bed is low and locked, hob elevated in semifowlers, side rails up x2, call light within reach. will continue to monitor.
--- NOTE | 2019-11-18 20:15 | NUR ---
television cabinet finisher note patient has temp 100.4. took off blankets and left top sheet. changed room temp from heater to ac. will continue to monitor.
--- NOTE | 2019-11-18 21:28 | NUR ---
RT NOTE PT RECEIVED TRACHED ON MECHANICAL VENTILATION. AMBU BAG @ BEDSIDE. TX GIVEN, NO ADVERSE REACTIONS NOTED. SX DONE, TRACH SECURED AND PATENT. ALARMS ON AND AUDIBLE. NO DISTRESS NOTED. CONT. PULSE OX CONNECTED. WILL MONITOR T/O SHIFT. Addendum: 11/18/19 at 2129 by KEVIN DANIEL RT Amended: Links added.
[2019-11-18] MEDS: LATANOPROST EYE DROP 0.005% 2.5 ML BOTTLE EACHEYE SCH (21:45)
[2019-11-18] MEDS: INSULIN GLARGINE, 100 UNIT/ML CARTRIDGE SQ SCH (21:56)
[2019-11-18] MEDS: ACETAMINOPHEN 325 MG TABLET MC PRN (22:15)
--- NOTE | 2019-11-18 22:16 | NUR ---
telephone worker note reassessed temp, temp now 99.9. administered prn tylenol 650mg via [employer]. will continue to monitor.
[2019-11-19] VITALS: BP 121/78
[2019-11-19] MEDS: INSULIN REGULAR, HUMAN 100 UNIT/ML 3 ML VIAL SQ PRN ×3 (00:02→12:45)
[2019-11-19] MEDS: ALBUTEROL FS 2.5 MG/3 ML VIAL.NEB IH SCH ×3 (00:46→13:06)
[2019-11-19 04:00] VITALS: BP 126/73
[2019-11-19] MEDS: NEPRO 1,000 ML BOTTLE GT PRN (04:21)
[2019-11-19] MEDS: BLOOD SUGAR DIAGNOSTIC 1 EACH STRIP IN SCH ×2 (05:29→12:42)
--- NOTE | 2019-11-19 06:38 | NUR ---
telecommunications cable jointer closing note patient in bed. obtunded, on mechanical ventilator, portex #7, ac 12, tv 500 fio2 40% peep 5. no resp distress. no s/s pain. external tele monitor reads sinus rhythm to sinus tach.no distress. iv access maintained in right hand#22 patent and saline locked. gtube is maintained with feeding nepro@60ml/hr. bed remains low and locked, hob elevated in semi fowlers, side rails up x2, call light within reach. will endorse to next shift
[2019-11-19 08:00] VITALS: BP 105/51
--- NOTE | 2019-11-19 08:00 | NUR ---
SALESFORCE DEVELOPER NOTES RECEIVED PATIENT WITH NO RESPIRATORY DISTRESS, ON [facility] VENTILATOR WITH PRESCRIBED SETTINGS. PATIENT WITH NO S/S OF ANY DISCOMFORT AT THIS TIME. PATIENT'S SKIN WARM TO TOUCH, IV ACCESS SITE INTACT AND PATENT ON THE RT HAND #22G. GT INTACT AND PATENT WITH NEPRO RUNNING AT 60ML/HR, TOLERATING WELL, HOB ELEVATED WITH ASPIRATION PRECAUTIONS. SUCTIONED SECRETIONS NEEDED. ORAL CARE NEEDED.WOUND TX DONE ORDERED-PT'S SKIN IS SO FRAGILE AND BLEEDS EASILY EVEN WITH GENTLE HANDLING. WITH MULTIPLE DIABETIC ULCERS.BED ON LOWEST LOCKED POSITION, SIDE RAILS UP X4 AND PADDED. WILL CONTINUE TO MONITOR.
[2019-11-19] MEDS: CHLORHEXIDINE GLUCONATE 15 ML UDC MM SCH (09:16)
[2019-11-19] MEDS: DOCUSATE SODIUM LIQ 100 MG/10 ML UDC GT SCH (09:16)
[2019-11-19] MEDS: LACTOBACILLUS RHAMNOSUS GG 1 EACH CAP.SPRINK GT SCH (09:17)
[2019-11-19] MEDS: VIT B CMPLX 3/FA/VIT C/BIOTIN 1 TAB TABLET GT SCH (09:17)
[2019-11-19] MEDS: FAMOTIDINE (20 MG) 20 MG TABLET GT SCH (09:17)
[2019-11-19] MEDS: ASCORBIC ACID 500 MG TABLET GT SCH (09:17)
[2019-11-19] MEDS: ZINC SULFATE 220 MG CAPSULE GT SCH (09:17)
[2019-11-19] MEDS: NEUTRA PHOS 1 POWD.PACKET GT SCH ×2 (09:17→12:42)
[2019-11-19] MEDS: MIDODRINE HCL (5MG) 5 MG TABLET GT SCH ×2 (09:17→12:45)
[2019-11-19] MEDS: LEVETIRACETAM SOL (5 ML) 100 MG/ML UDC GT SCH (09:18)
[2019-11-19] MEDS: DORZOLAMIDE OPTH 2% 10 ML BOTTLE RIGHTEYE SCH ×2 (09:18→12:47)
[2019-11-19] MEDS: PROSOURCE / PROSTAT (PYXIS) 30 ML UDC GT SCH (09:18)
[2019-11-19] MEDS: BRIMONIDINE TARTRATE OPHT SOLN 5 ML BOTTLE EACHEYE SCH ×2 (09:18→12:47)
[2019-11-19] MEDS: THERAHONEY GEL 1.5 OZ TUBE TP SCH (09:19)
[2019-11-19 12:00] VITALS: BP 137/65
[2019-11-19 12:45] VITALS: BP 137/65
--- NOTE | 2019-11-19 12:46 | NUR ---
HELD MIDODRINE PT'S BP IS 137/65 HR 89
--- NOTE | 2019-11-19 15:20 | NUR ---
DISCHARGE INSTRUCTIONS/REPORT GIVEN TO IMPLEMENTATION TECHNICIAN AND DAMON [facility]UTE RN SUPERVISORS,RAMANDEEP AND ALFREDO .IV H/L REMOVED TO RT HAND WITH NO BLEEDING OR SWELLING NOTED. MED RECON SENT. V/S STABLE. PT MADE SOFT BROWN BM.GOOD PERICARE RENDERED PRIOR TO DISCHARGE.
== END 2019-11-19 15:37 | DRG 270 ==
LOC: ER 15:32 → TELE1 18:24 → TELE 11-18 15:16
PROVIDERS: ADMIT Nurse Practitioner Acute Care; ATTEND Nurse Practitioner Acute Care
PROC: 5A1955Z Respiratory Ventilation, Greater than 96 Consecutive Hours (ICD-10-PCS; principal; 2019-11-07)
PROC: 05H533Z Insertion of Infusion Device into Right Subclavian Vein, Percutaneous Approach (ICD-10-PCS; 2019-11-08)
PROC: B546ZZA Ultrasonography of Right Subclavian Vein, Guidance (ICD-10-PCS; 2019-11-08)
PROC: 06CY3ZZ Extirpation of Matter from Lower Vein, Percutaneous Approach (ICD-10-PCS; 2019-11-09)
PROC: 06PY33Z Removal of Infusion Device from Lower Vein, Percutaneous Approach (ICD-10-PCS; 2019-11-10)
PROC: 0JHM3XZ Insertion of Tunneled Vascular Access Device into Left Upper Leg Subcutaneous Tissue and Fascia, Percutaneous Approach (ICD-10-PCS; 2019-11-10)
PROC: 06HY33Z Insertion of Infusion Device into Lower Vein, Percutaneous Approach (ICD-10-PCS; 2019-11-10)
PROC: 5A1D70Z Performance of Urinary Filtration, Intermittent, Less than 6 Hours Per Day (ICD-10-PCS; 2019-11-10)
DX: T82.41XA Breakdown (mechanical) of vascular dialysis catheter, initial encounter (principal); R53.2 Functional quadriplegia; N18.6 End stage renal disease; J96.10 Chronic respiratory failure, unspecified whether with hypoxia or hypercapnia; Z99.11 Dependence on respirator [ventilator] status; G93.1 Anoxic brain damage, not elsewhere classified; E87.1 Hypo-osmolality and hyponatremia; E44.0 Moderate protein-calorie malnutrition; L97.419 Non-pressure chronic ulcer of right heel and midfoot with unspecified severity; L97.429 Non-pressure chronic ulcer of left heel and midfoot with unspecified severity; L97.319 Non-pressure chronic ulcer of right ankle with unspecified severity; I13.2 Hypertensive heart and chronic kidney disease with heart failure and with stage 5 chronic kidney disease, or end stage renal disease; D68.69 Other thrombophilia; K21.9 Gastro-esophageal reflux disease without esophagitis; I25.10 Atherosclerotic heart disease of native coronary artery without angina pectoris; Z79.4 Long term (current) use of insulin; E66.9 Obesity, unspecified; E11.22 Type 2 diabetes mellitus with diabetic chronic kidney disease; Z99.2 Dependence on renal dialysis; G40.909 Epilepsy, unspecified, not intractable, without status epilepticus; Z93.1 Gastrostomy status; Z93.0 Tracheostomy status; E88.09 Other disorders of plasma-protein metabolism, not elsewhere classified; M62.50 Muscle wasting and atrophy, not elsewhere classified, unspecified site; E11.621 Type 2 diabetes mellitus with foot ulcer; E11.622 Type 2 diabetes mellitus with other skin ulcer; Z68.26 Body mass index [BMI] 26.0-26.9, adult; L98.8 Other specified disorders of the skin and subcutaneous tissue; L90.5 Scar conditions and fibrosis of skin; Y84.8 Other medical procedures as the cause of abnormal reaction of the patient, or of later complication, without mention of misadventure at the time of the procedure; Y92.129 Unspecified place in nursing home as the place of occurrence of the external cause; D64.9 Anemia, unspecified; E11.51 Type 2 diabetes mellitus with diabetic peripheral angiopathy without gangrene; I50.9 Heart failure, unspecified; Y71.2 Prosthetic and other implants, materials and accessory cardiovascular devices associated with adverse incidents; Z86.14 Personal history of Methicillin resistant Staphylococcus aureus infection; Z90.710 Acquired absence of both cervix and uterus; E11.65 Type 2 diabetes mellitus with hyperglycemia
CPT/HCPCS: 31720; 36410; 36415; 71045-TC; 80048-TC; 80053-TC; 80061-TC; 80202-TC; 82962-TC; 83735-TC; 84100-TC; 85025-TC; 85730-TC; 86706; 86850-TC; 87040-TC; 87070-TC; 87081-TC; 87340; 90935-TC; 94002-TC; 94003-TC; 94760-TC; 94762-TC; 94799-TC; 99082-TC; A4216; A4623; A6253; A6403; C1750; G0378; J0360; J1644; J1815; J1953; J2997; J3370; J7050; J7060; P9047; U0003-CS

== ENCOUNTER 2019-12-08 16:17 | Inpatient (IN) | payer MEDICARE, OTHER ==
[~2019-12-08] VITALS: Ht 157.5 cm; Wt 68.0 kg
--- NOTE | 2019-12-08 00:42 | NUR ---
SUPERVISOR BLOOD NOTES PER LINOLEUM LAYER HELPER OUTSOLE SKIVER, YVONNE TEAGUE, HOLD SCHEDULED LANTUS 46 UNITS
[~2019-12-08 16:17] MED LIST changes: +AMIN30LI2 GT; +DORZ10DR10 RIGHTEYE
--- NOTE | 2019-12-08 16:20 | NUR ---
VIBHA BEAN FROM RENAL, UNABLE TO DIALYZE DUE TO L FEMORAL CATHETER MALFUNCTION, TO ER BED 8, RT AT BEDSIDE, HOOKED PATIENT TO VENTILATOR WITH SETTINGS OF: AC 12, VT 500, O2 40%, PEEP 5. HOOKED PATIENT TO HOOP COILING MACHINE OPERATOR AND POX, VSS. DR BLACK AT BEDSIDE
--- NOTE | 2019-12-08 16:49 | NUR ---
RT pt placed on vent in er. trached. settings: AC 12 500 40% +5. alarms on and audible. minimal thin yellow secretions suctioned via trach. hob 40 degrees. no sob. no resp distress. ambu bag at hob. will continue to monitor.
--- NOTE | 2019-12-08 17:00 | NUR ---
BENDER MACHINE OPERATOR AT BEDSIDE FOR XRAY
--- NOTE | 2019-12-08 17:06 | NUR ---
DIVING INSTRUCTOR AT BEDSIDE
[2019-12-08 17:16] LABS: BASOPHILS % (AUTO) 0.4 % (0.0-2.0); EOSINOPHILS % (AUTO) 3.5 % (0.0-6.0); HEMATOCRIT 22 % (33-45); LYMPHOCYTES # (AUTO) 1.4 /CMM (0.8-4.8); LYMPHOCYTES % (AUTO) 11.7 % (20.0-44.0); MEAN CORPUSCULAR HGB CONC 31 g/dl (31.0-36.0); MEAN CORPUSCULAR VOLUME 99 fL (82-100); MONOCYTES # (AUTO) 0.8 /CMM (0.1-1.30); MONOCYTES % (AUTO) 6.7 % (2.0-12.0); NEUTROPHILS # (AUTO) 9.2 /CMM (1.8-8.9); NEUTROPHILS % (AUTO) 77.7 % (43.0-81.0); PLATELET COUNT (AUTO) 256 /CMM (150-450); RED BLOOD CELL COUNT(AUTO) 2.21 MIL/uL (4.0-5.2); WHITE BLOOD COUNT (AUTO) 11.9 K/uL (4.3-11.0)
[2019-12-08 17:19] LABS: HEMOGLOBIN 6.8 g/dL (11.5-14.8)
[2019-12-08] MEDS ORDERED: EPOETIN ALFA (10,000 UNIT) 10,000 UNIT/ML VIAL SQ SCH (17:30)
[2019-12-08] MEDS ORDERED: ACETAMINOPHEN 325 MG TABLET PO PRN (17:30)
[2019-12-08] MEDS ORDERED: NEPRO VAN 237 ML CAN GT SCH (17:30)
[2019-12-08] MEDS ORDERED: FAMOTIDINE 40 MG TABLET GT SCH (17:30)
[2019-12-08] MEDS ORDERED: INSULIN REGULAR, HUMAN 100 UNIT/ML 3 ML VIAL SQ PRN (17:30)
[2019-12-08 17:32] LABS: ALBUMIN 2.5 g/dL (3.4-5.0); BILIRUBIN,TOTAL 0.4 mg/dL (0.2-1.0); CALCIUM, SERUM 9.8 mg/dL (8.5-10.1); CREATININE 6.3 mg/dL (0.6-1.3); POTASSIUM 5.4 mmol/L (3.5-5.1); TOTAL PROTEIN, SERUM 8.3 g/dL (6.4-8.2)
--- NOTE | 2019-12-08 17:58 | NUR ---
LAB CALLED FOR COVID SWAB
[2019-12-08] MEDS ORDERED: VANCOMYCIN 1 GM in IV D5W 250 ML IV ONE (18:00)
[2019-12-08] MEDS ORDERED: ONDANSETRON HCL/PF 4 MG/2 ML VIAL IVP PRN (18:00)
[2019-12-08] MEDS ORDERED: Z GUARD REMEDY 2 OZ OINT TP PRN (18:00)
[2019-12-08] MEDS ORDERED: HYDROCODONE/APAP 5/325MG 1 EACH TABLET PO PRN (18:00)
[2019-12-08] MEDS ORDERED: CEFEPIME 1 GM in IV D5W 50 ML IV ONE (18:00)
[2019-12-08 18:23] LABS: EOSINOPHILS % (MANUAL) 2 % (0-4); LYMPHOCYTES % (MANUAL) 12 % (16-48); MONOCYTES % (MANUAL) 7 % (0-11.0); NEUTROPHILS % (MANUAL) 79 (42-76)
--- NOTE | 2019-12-08 18:28 | NUR ---
DAUGHTER SHAILESH LEFT CONTACT # [phone]
--- NOTE | 2019-12-08 18:32 | NUR ---
RH 22G IV PERIIPHERAL LINE INFILTRATED. MADE AWARE.
--- NOTE | 2019-12-08 18:48 | NUR ---
CALLED FOR MIDLINE.
--- NOTE | 2019-12-08 19:19 | NUR ---
REPORT GIVEN TO SARA BRAVO FOR SHERRY
--- NOTE | 2019-12-08 19:25 | NUR ---
REPORT RECIEVED. IV STAN 20G INSERTED BY . UNABLE TO START BLOOD DUE TO 20G IV. MD AWARE. ORDER FOR PIC LINE PLACED.
--- NOTE | 2019-12-08 19:30 | NUR ---
PT NEGATIVE FOR COVID.
--- NOTE | 2019-12-08 20:06 | NUR ---
REPORT GIVEN TO ERICA BRAVO FOR SHERRY
[2019-12-08 20:45] VITALS: BP 117/64
--- NOTE | 2019-12-08 20:45 | NUR ---
PROJECT COACHCHIEF REVENUE OFFICER NOTES PATIENT ADMITTED FOR HD CATH MALFUNCTION ON LEFT FEMORAL; TRANSFERRED VIA GURNEY WITH ACLS PROTOCOL. PATIENT VENT DEPENDENT; TOLERATING SETTINGS WELL; SPO2: 100. TELE MONITOR READING NSR. PATIENT NONVERBAL AND OBTUNDED. NO S/S OF ACUTE RESPIRATORY DISTRESS OR PAIN NOTED. MULTIPLE SKIN ISSUES PRESENT; PHOTOS TAKEN AND PLACED IN CHART. GTUBE PRESENT AND FLUSHING WELL. NO BELONGINGS NOTED. ADMISSION ORDERS IN PLACE. SAFETY MEASURES IN PLACE AND PATIENT'S NEEDS MET. BED LOCKED, HOB ELEVATED, SIDE RAILS X3. WILL CONTINUE TO MONITOR.
--- NOTE | 2019-12-08 20:46 | NUR ---
PT TRANSFERED PER ACLS PROTOCOL
[2019-12-08] MEDS ORDERED: LATANOPROST EYE DROP 0.005% 2.5 ML BOTTLE EACHEYE SCH (22:00)
[2019-12-08] MEDS: LATANOPROST EYE DROP 0.005% 2.5 ML BOTTLE EACHEYE SCH (22:00)
[2019-12-08] MEDS: INSULIN GLARGINE, 100 UNIT/ML CARTRIDGE SQ SCH (22:00)
--- NOTE | 2019-12-08 22:53 | NUR ---
CERTIFIED CREDIT COUNSELOR NOTES SPOKE TO PATIENT'S DAUGHTER, SHAILESH, VIA PHONE. RECEIVED CONSENT FOR PICC LINE INSERTION AND BLOOD TRANSFUSION
[2019-12-08] MEDS: LEVETIRACETAM SOL (5 ML) 100 MG/ML UDC GT SCH (23:03)
[2019-12-08] MEDS: CHLORHEXIDINE GLUCONATE 15 ML UDC MM SCH (23:03)
[2019-12-09] VITALS (15 sets, daily range): BP systolic 101–153; BP diastolic 30–79
[2019-12-09] MEDS: BLOOD SUGAR DIAGNOSTIC 1 EACH STRIP IN SCH ×6 (00:06→23:49)
[2019-12-09] MEDS: ALBUTEROL FS 2.5 MG/3 ML VIAL.NEB IH SCH ×4 (00:45→20:07)
--- NOTE | 2019-12-09 02:51 | NUR ---
PIPELINES LABORER NOTES 1 UNIT OF LRBC TRANSFUSING. NO S/S OF REACTIONS NOTED. VITAL SIGNS - BP: 122/50, HR:85, RR: 18, TEMP:98.9, SPO2: 100. WILL CONTINUE TO MONITOR.
--- NOTE | 2019-12-09 05:43 | NUR ---
FOXER CLOSING NOTES BLOOD TRANSFUSION COMPLETED. NO REACTIONS NOTED. VITAL SIGNS WNL. WILL CONTINUE TO MONITOR.
[2019-12-09] MEDS: INSULIN REGULAR, HUMAN 100 UNIT/ML 3 ML VIAL SQ PRN ×4 (06:50→23:47)
[2019-12-09] MEDS ORDERED: DEXTROSE 50%-WATER 50 ML DISP.SYRIN IV PRN (07:00)
--- NOTE | 2019-12-09 07:00 | NUR ---
REGIONAL FACILITIES SPECIALIST OPENING NOTES RECEIVED PT IN BED AT THIS TIME, EYES OPEN, OBTUNDED AND NON VERBAL. PT ON MECHANICAL VENT, AC 12, VT 500, FIO2 40, PEEP 5. EXTERNAL CARDIAC TELE MONITOR READING NSR 85. NO SOB NOTED, NO S/S OF ANY ACUTE DISTRESS OR PAIN NOTED. RESPIRATIONS EVEN AND UNLABORED, MULTIPLE SKIN ISSUES NOTED. LEFT FEMORAL HD CATH NOTED. G-TUBE IN PLACE,AND FLUSHING WELL WITH NO RESIDUAL NOTED. STAN MIDLINE AND STAN G#20 BOTH INTACT, PATENT AND FLUSHING WELL. SAFETY PRECAUTIONS IN PLACE, BED IN LOWEST LOCKED POSITION, SIDE RAILS UP, HOB ELEVATED, CALL LIGHT WITHIN REACH. WILL CONTINUE TO MONITOR
--- NOTE | 2019-12-09 07:31 | NUR ---
MANAGER DECISION SUPPORT CLOSING NOTES PATIENT OBTUNDED AND NONVERBAL; ABLE TO OPEN EYES. TOLERATING VENT SETTINGS WELL; NO S/S OF ACUTE RESPIRATORY; BREATHING IS EVEN AND UNLABORED. TELE MONITOR READING NSR. GTUBE FEEDING IN PLACE WITH NEPRO AT 60 ML/HR; TOLERATING WELL. SAFETY MEASURES IN PLACE AND PATIENT'S NEEDS MET. BED LOCKED, ALARM ON, SIDE RAILS X3, CALL LIGHT WITHIN REACH. WILL ENDORSE TO DAY SHIFT NURSE PLAN OF CARE.
[2019-12-09 07:45] LABS: BASOPHILS % (AUTO) 0.4 % (0.0-2.0); EOSINOPHILS % (AUTO) 4.1 % (0.0-6.0); HEMATOCRIT 21 % (33-45); LYMPHOCYTES % (AUTO) 9.7 % (20.0-44.0); MEAN CORPUSCULAR HGB CONC 32 g/dl (31.0-36.0); MEAN CORPUSCULAR VOLUME 99 fL (82-100); MONOCYTES # (AUTO) 0.5 /CMM (0.1-1.30); NEUTROPHILS # (AUTO) 8.1 /CMM (1.8-8.9); NEUTROPHILS % (AUTO) 80.8 % (43.0-81.0); PLATELET COUNT (AUTO) 230 /CMM (150-450); RED BLOOD CELL COUNT(AUTO) 2.12 MIL/uL (4.0-5.2)
--- NOTE | 2019-12-09 08:00 | NUR ---
PT STAN NOTED WITH DISCOLORATION, PICTURE TAKEN AND FILED IN CHART, WILL CONTINUE TO MONITOR
[2019-12-09] MEDS ORDERED: FEE PK DOSING 1 MIN EA MC ONE (08:02)
[2019-12-09 08:07] LABS: HEMOGLOBIN 6.7 g/dL (11.5-14.8)
--- NOTE | 2019-12-09 08:17 | NUR ---
SALLY, RETIREMENT CONSULTANT REPORTED CRITICAL LAB VALUE FOR HGB 6.7. REPORT READ BACK. DOCTOR ERICA AND IRENE, CHARGE NURSE MADE AWARE. PER DOCTOR ERICA, TRANSFUSE 1PRBC. ORDERS RECEIVED AND WILL BE ADMINISTERED. WILL CONTINUE TO MONITOR
[2019-12-09 08:28] LABS: CREATININE 6.6 mg/dL (0.6-1.3); MAGNESIUM 2.7 mg/dL (1.8-2.4); PHOSPHORUS 4.7 mg/dL (2.5-4.9); POTASSIUM 5.9 mmol/L (3.5-5.1)
[2019-12-09] MEDS ORDERED: VANCOMYCIN 500 MG in IV D5W 100 ML IV PRN (08:30)
[2019-12-09] MEDS ORDERED: DORZOLAMIDE OPTH 2% 10 ML BOTTLE RIGHTEYE SCH (09:00)
[2019-12-09] MEDS: CHLORHEXIDINE GLUCONATE 15 ML UDC MM SCH ×2 (09:36→22:12)
[2019-12-09] MEDS: LACTOBACILLUS RHAMNOSUS GG 1 EACH CAP.SPRINK GT SCH (09:36)
[2019-12-09] MEDS: LEVETIRACETAM SOL (5 ML) 100 MG/ML UDC GT SCH ×2 (09:36→21:00)
[2019-12-09] MEDS: ASCORBIC ACID 500 MG TABLET GT SCH (09:36)
[2019-12-09] MEDS: DOCUSATE SODIUM 100 MG CAPSULE PO SCH ×2 (09:36→17:00)
[2019-12-09] MEDS: BRIMONIDINE TARTRATE OPHT SOLN 5 ML BOTTLE OP SCH ×3 (09:38→17:00)
[2019-12-09] MEDS: DORZOLAMIDE OPTH 2% 10 ML BOTTLE RIGHTEYE SCH ×3 (09:39→17:15)
[2019-12-09] MEDS: ZINC SULFATE 220 MG CAPSULE GT SCH (09:41)
--- NOTE | 2019-12-09 10:08 | NUR ---
WOUND CARE CONSULT: PT PRESENTS WITH MULTIPLE SKIN ISSUES INCLUDING NECROTIC WOUNDS TO LOWER EXTREMITIES, LEFT HAND SKIN TEAR, DRY ABRASIONS, SACRAL SCARRING WHICH EXTENDS TO BILATERAL BUTTOCKS WITH INCONTINENCE ASSOCIATED SKIN DAMAGE, ALL PRESENT ON ADMISSION. RECOMMEND SURGICAL AND DPM CONSULTS. DR KIRKLAND AND DR HYLTON NOTIFIED OF CONSULT REQUESTS. PT IS ON HAIR ISOFLEX LOW AIRLOSS BED. PT IS INCONTINENENT OF LOOSE STOOL. PT HAS LOWER EXTREMITY CONTRACTURES MAKING OFFLOADING DIFFICULT. RECOMMENDATIONS MADE FOR SKIN PROTECTION. DISCUSSED WITH NURSING STAFF. WILL SEE PRN. RASMUSSEN IN AGREEMENT WITH PLAN OF CARE. Addendum: 12/09/19 at 1011 by FIDEL MICHAEL WNDNU Amended: Links added.
[2019-12-09 10:11] LABS: BAND % (MANUAL) 1 % (0.0-5.0); EOSINOPHILS % (MANUAL) 6 % (0-4); LYMPHOCYTES % (MANUAL) 7 % (16-48); MONOCYTES % (MANUAL) 1 % (0-11.0); NEUTROPHILS % (MANUAL) 85 (42-76)
[2019-12-09] MEDS ORDERED: SODIUM POLYSTYRENE SULF. PWD 15 GM UDC PO ONE (12:00)
--- NOTE | 2019-12-09 12:45 | NUR ---
PATIENT NOTED WITH DISLODGED PEG AT THIS TIME. STONE CATHETER IN PLACE TO KEEP PEG SITE FROM CLOSING UP, DOCTOR ERICA AND IRENE CHARGE NURSE MADE AWARE. DOCTOR MALDONADO REQUESTED TO NOTIFY DR MORALES. WILL CONTINUE TO MONITOR
--- NOTE | 2019-12-09 13:36 | NUR ---
CONSENT FOR BLOOD SIGNED, BLOOD PICKED UP FROM LAB, BLOOD VERIFIED AT BED SIDE BY TWO NURSES, PRE-TRANSFUSION VITAL SIGNS, BP 118/60, HR 83, RR 12, TEMP 98.2, SPO2 100. PT EDUCATION ON S/S OF TRANSFUSION REACTION PROVIDED, BLOOD TRANSFUSION STARTED AT THIS TIME, WILL MONITOR PT FOR FEVER, CHILLS, ITCHES AND S/S OF PAIN
--- NOTE | 2019-12-09 13:49 | NUR ---
PT ONGOING BLOOD-TRANSFUSION VITAL SIGNS, BP 108/54, HR 73, RR 12, TEMP 98.0, SPO2 100. NO ADVERSE REACTIONS OF BLOOD TRANSFUSION NOTED AT THIS TIME. WILL MONITOR PT FOR ADVERSE REACTIONS TO TRANSFUSION LIKE, FEVER, CHILLS, ITCHES AND S/S OF PAIN
[2019-12-09] MEDS ORDERED: LIDOCAINE 2% 20 ML MDV TP ONE (14:00)
[2019-12-09] MEDS ORDERED: HEPARIN SODIUM, PORCINE 1000 UNIT/1 ML VIAL IV ONE (14:00)
--- NOTE | 2019-12-09 14:39 | NUR ---
PT ONGOING BLOOD-TRANSFUSION VITAL SIGNS, BP 109/53, HR 84, RR 12, TEMP 98.2, SPO2 100. NO ADVERSE REACTIONS OF BLOOD TRANSFUSION NOTED AT THIS TIME. WILL MONITOR PT FOR ADVERSE REACTIONS TO TRANSFUSION LIKE, FEVER, CHILLS, ITCHES AND S/S OF PAIN
--- NOTE | 2019-12-09 16:00 | NUR ---
RECEIVED TELEPHONE CONSENT FOR LEFT FEMORAL PERMACATH INSERTION FROM PATIENTS' DAUGHTER SHAILESH. CONSENT CONFIRMED THE PHONE BY ANOTHER NURSE LAWRENCE GARCIA. WILL CONTINUE WITH PLAN OF CARE AND CONTINUE TO MONITOR
--- NOTE | 2019-12-09 16:30 | NUR ---
XYLOCAINE 2%ML MDV 20MG TP ONCE NOT USED BY DOCTOR NICOLE, RETURNED BACK TO PATIENT'S CASETTE
--- NOTE | 2019-12-09 16:30 | NUR ---
LEFT FEMORAL PERMACATH SURGERY PERFORMED BY DR RIVERA. VITAL SIGNS STABLE. WILL CONTINUE TO MONITOR
--- NOTE | 2019-12-09 16:36 | NUR ---
BLOOD TRANSFUSION COMPLETED AT THIS TIME. NO ADVERSE REACTION OF TRANSFUSION NOTED. VITAL SIGNS, BP 101/62 HR 77, RR 12, T 97.8 SPO2 100. WILL CONTINUE TO MONITOR.
--- NOTE | 2019-12-09 17:06 | NUR ---
LEFT FEMORAL PERMACATH SPECIMEN DROPPED OFF WITH PATHOLOGY AT THIS TIME. WILL CONTINUE TO MONITOR
[2019-12-09] MEDS: CEFEPIME 2 GM in IV D5W 100 ML IV SCH (17:15)
--- NOTE | 2019-12-09 18:30 | NUR ---
FIRST STEP LOW AIR LOST MATTRESS ORDERED. DELIVERED AT THIS TIME. WILL ENDORSE TO LINUX NETWORK ENGINEER NURSE FOR SHERRY
--- NOTE | 2019-12-09 18:30 | NUR ---
UNABLE TO REACH DOCTOR ANDREW TWICE ON PHONE TO FOLLOW UP ON PEG DISLODGEMENT. WILL ENDORSE TO NIGHT NURSE TO FOLLOW UP
--- NOTE | 2019-12-09 19:10 | NUR ---
WORM FARMER CLOSING NOTES PT IN BED RESTING AT THIS TIME, PATIENT REMAINED STABLE THROUGH OUT SHIFT. WOUND CARE TREATMENT DONE. PATIENT KEPT CLEAN AND DRY. ALL CARE, NEEDS, TREATMENT AND MEDICATIONS ADMINISTERED ANTICIPATED PER ORDER. ASPIRATION AND SAFETY PRECAUTIONS IN PLACE AND MAINTAINED AT ALL TIMES, BED IN LOWEST LOCKED POSITION, SIDE RAILS UP, HOB ELEVATED TO SEMI FOWLERS POSITION, CALL LIGHT WITHIN REACH. WILL ENDORSE TO EXIT BOOTH AGENT NURSE FOR SHERRY
--- NOTE | 2019-12-09 19:35 | NUR ---
ROLLING UP MACHINE OPERATOR OPENING NOTES PATIENT OBTUNDED AND NONVERBAL; ABLE TO OPEN EYES. TOLERATING VENT SETTINGS WELL; NO S/S OF ACUTE RESPIRATORY; BREATHING IS EVEN AND UNLABORED. TELE MONITOR READING NSR. PER DAY SHIFT RN, GTUBE WAS DISLODGED; CURRENTLY STONE CATH IS IN PLACE TO KEEP GTUBE SITE OPEN; ANDREW CONTACTED FOR CONSULTATION. LEFT FEMORAL CATHETER PRESENT, BLEEDING NOTED ON THE DRESSING; PLACED EARLIER BY DR. RIVERA AND THE BEDSIDE. SAFETY MEASURES IN PLACE AND PATIENT'S NEEDS MET. BED LOCKED, ALARM ON, SIDE RAILS X3, CALL LIGHT WITHIN REACH. WILL CONTINUE TO MONITOR.
--- NOTE | 2019-12-09 21:30 | NUR ---
SUPERVISOR KEYMODULE ASSEMBLY NOTES UNABLE TO GIVE SCHEDULED MEDS VIA GTUBE DUE TO DISLODGMENT
[2019-12-09] MEDS: LATANOPROST EYE DROP 0.005% 2.5 ML BOTTLE EACHEYE SCH (22:00)
[2019-12-09] MEDS: INSULIN GLARGINE, 100 UNIT/ML CARTRIDGE SQ SCH (22:00)
[2019-12-10] VITALS: BP 139/81
[2019-12-10] MEDS: ALBUTEROL FS 2.5 MG/3 ML VIAL.NEB IH SCH ×4 (01:39→19:36)
[2019-12-10 06:40] LABS: BASOPHILS % (AUTO) 0.3 % (0.0-2.0); EOSINOPHILS % (AUTO) 3.6 % (0.0-6.0); HEMATOCRIT 22 % (33-45); HEMOGLOBIN 7.1 g/dL (11.5-14.8); LYMPHOCYTES % (AUTO) 15.1 % (20.0-44.0); MEAN CORPUSCULAR HGB CONC 32 g/dl (31.0-36.0); MEAN CORPUSCULAR VOLUME 98 fL (82-100); MONOCYTES # (AUTO) 0.5 /CMM (0.1-1.30); MONOCYTES % (AUTO) 7.8 % (2.0-12.0); NEUTROPHILS # (AUTO) 4.9 /CMM (1.8-8.9); NEUTROPHILS % (AUTO) 73.2 % (43.0-81.0); PLATELET COUNT (AUTO) 181 /CMM (150-450); RED BLOOD CELL COUNT(AUTO) 2.28 MIL/uL (4.0-5.2); WHITE BLOOD COUNT (AUTO) 6.7 K/uL (4.3-11.0)
[2019-12-10 07:18] LABS: CALCIUM, SERUM 9.5 mg/dL (8.5-10.1); CREATININE 4.3 mg/dL (0.6-1.3); POTASSIUM 4.2 mmol/L (3.5-5.1)
[2019-12-10] MEDS: BLOOD SUGAR DIAGNOSTIC 1 EACH STRIP IN SCH ×3 (07:29→18:08)
--- NOTE | 2019-12-10 07:50 | NUR ---
OIL SCOUT CLOSING NOTES PATIENT OBTUNDED AND NONVERBAL; ABLE TO OPEN EYES. TOLERATING VENT SETTINGS WELL; NO S/S OF ACUTE RESPIRATORY; BREATHING IS EVEN AND UNLABORED. TELE MONITOR READING NSR. STONE CATH REMAINS IN PLACE TO KEEP GTUBE SITE OPEN. LEFT FEMORAL CATHETER REMAINS INTACT. SAFETY MEASURES IN PLACE AND PATIENT'S NEEDS MET. BED LOCKED, ALARM ON, SIDE RAILS X3. ENDORSED TO DAY SHIFT RN PLAN OF CARE.
[2019-12-10 08:00] VITALS: BP 138/54
--- NOTE | 2019-12-10 08:00 | NUR ---
RN OPENING NOTE Patient is resting in bed, obtunded, open eyes, on mechanical vent AC 12 VT 500 PEEP 5 O2 40%. Tele monitor NSR 88. Per shift engineer RN, g-tube was dislodged yesterday morning and a lau catheter was placed to keep site open. Catheter is still in place at this time, secured with tape and dressing. STAN Midline noted and RFA #20g noted flushing well. Left femoral HD cath noted. S/P HD this AM with 1 L out. Oral care and patient turned and repositioned. Bed is in lowest position, side rails x3 in upright position, call light is within reach, fall safety, seizure and aspiration precautions enforced. Will continue with plan of care.
[2019-12-10] MEDS: DOCUSATE SODIUM 100 MG CAPSULE PO SCH ×2 (09:00→16:56)
[2019-12-10] MEDS: LACTOBACILLUS RHAMNOSUS GG 1 EACH CAP.SPRINK GT SCH (09:00)
[2019-12-10] MEDS: ZINC SULFATE 220 MG CAPSULE GT SCH (09:00)
[2019-12-10] MEDS: LEVETIRACETAM SOL (5 ML) 100 MG/ML UDC GT SCH ×2 (09:00→21:22)
[2019-12-10] MEDS: ASCORBIC ACID 500 MG TABLET GT SCH (09:00)
[2019-12-10] MEDS: CHLORHEXIDINE GLUCONATE 15 ML UDC MM SCH ×2 (09:24→21:22)
[2019-12-10] MEDS: HYDROGEL DRESSING 90 GM TUBE TP SCH (09:25)
[2019-12-10] MEDS: BRIMONIDINE TARTRATE OPHT SOLN 5 ML BOTTLE OP SCH ×3 (09:25→16:56)
[2019-12-10] MEDS: DORZOLAMIDE OPTH 2% 10 ML BOTTLE RIGHTEYE SCH ×3 (09:25→16:56)
--- NOTE | 2019-12-10 10:39 | NUR ---
RN NOTE Dr. Nettles re-inserted g-tube at bedside. Ok per MD to start patient on tube feeding. g-tube is flushing well and has 20 mls residual. Will start feeding at 30mls/hour and monitor if patient can tolerate.
[2019-12-10] MEDS ORDERED: NEPRO 1,000 ML BOTTLE GT PRN (11:30)
[2019-12-10] MEDS: INSULIN REGULAR, HUMAN 100 UNIT/ML 3 ML VIAL SQ PRN ×2 (11:49→18:14)
--- NOTE | 2019-12-10 11:50 | NUR ---
RN NOTE Held insulin at this time due to blood sugar trending down, and just started tube feeding. Will continue to monitor.
[2019-12-10 12:00] VITALS: BP 130/55
[2019-12-10 16:00] VITALS: BP 121/53
[2019-12-10 18:00] VITALS: BP 121/53
--- NOTE | 2019-12-10 18:47 | NUR ---
RN CLOSING NOTE Patient is resting in bed, obtunded, open eyes, on mechanical vent AC 12 VT 500 PEEP 5 O2 40%. Tele monitor NSR 80s. G-TUBE is in place with 0mls residual running feeding at 40 mls/hour, will endorse to overnight houseperson to increase as tolerated. RFA #20g noted flushing well. Left femoral HD cath noted. S/P HD this afternoon with 1200 L out. Oral care and patient turned and repositioned q 2 hours. Patient kept clean and dry throughout shift. Wound care done as ordered. Patient has DC order. Exit care done, photos taken and placed in chart. Per MIGEL Solomon, there is no bed available yet. Ambulance on will-call [phone]. Will endorse to overnight houseperson. Bed is in lowest position, side rails x3 in upright position, call light is within reach, fall safety, seizure and aspiration precautions enforced. Ok per pharmacy to give cefepime late, vanco is still running at this time. Will endorse to overnight houseperson.
[2019-12-10] MEDS: CEFEPIME 2 GM in IV D5W 100 ML IV SCH (19:13)
--- NOTE | 2019-12-10 19:45 | NUR ---
RN NOTES RECEIVED PATIENT RESTING COMFORTABLY, OBTUNDED, OPENS EYES, VENT SETTINGS TOLERATING WELL AC 12 VT 500 PEEP 5 O2 40%. TELE MONITOR READS NSR 70s - 80s. NO SIGNS OF ACUTE CARDIAC OR RESPIRATORY DISTRESS NOTED. GT INTACT AND PATENT, IV ACCESS AT RFA INTACT AND PATENT FLUSHING WELL, LEFT FEMORAL HD CATH NOTED, S/P HD IN THE AFTERNOO 12/10/19 WITH 1200 ML OUT. SAFETY MEASURES IN PLACE, ASPIRATION PRECAUTION EMPHASIZED, KEEP CLEAN WARM DRY AND COMFORTABLE. ALL NEEDS ANTICIPATED, WILL CONTINUE TO MONITOR ACCORDINGLY.
[2019-12-10 20:00] VITALS: BP 110/46
[2019-12-10] MEDS: INSULIN GLARGINE, 100 UNIT/ML CARTRIDGE SQ SCH (21:59)
[2019-12-10] MEDS: LATANOPROST EYE DROP 0.005% 2.5 ML BOTTLE EACHEYE SCH (22:00)
[2019-12-11] VITALS (8 sets, daily range): BP systolic 105–155; BP diastolic 47–81
[2019-12-11] MEDS: INSULIN REGULAR, HUMAN 100 UNIT/ML 3 ML VIAL SQ PRN ×5 (00:31→23:57)
[2019-12-11] MEDS: BLOOD SUGAR DIAGNOSTIC 1 EACH STRIP IN SCH ×5 (00:32→23:55)
[2019-12-11] MEDS: ALBUTEROL FS 2.5 MG/3 ML VIAL.NEB IH SCH ×4 (01:37→20:01)
[2019-12-11 07:07] LABS: CALCIUM, SERUM 10.1 mg/dL (8.5-10.1); CREATININE 3.6 mg/dL (0.6-1.3); POTASSIUM 4.4 mmol/L (3.5-5.1)
--- NOTE | 2019-12-11 07:12 | NUR ---
RN NOTES ALL NEEDS ATTENDED AND MET, ABLE TO REST AND SLEPT AT INTERVALS, VENT SETTINGS TOLERATING WELL, IV ACCESS INTACT AND PATENT, SAFETY MEASURES INPLACE, ASPIRATION PRECAUTION EMPHASIZE, ALL NEEDS ANTICIPATED, ENDORSED TO AM NURSE TO FOLLOW BED AVAILABILITY UP FOR DISCHARGE TO [facility], REPORT GIVEN FOR CONTINUITY OF CARE.
--- NOTE | 2019-12-11 08:00 | NUR ---
RN OPENING NOTE Patient is resting in bed, obtunded, open eyes, on mechanical vent AC 12 VT 500 PEEP 5 O2 40%. Tele monitor NSR 80s. G-TUBE is in place with 0mls residual running feeding at 40 mls/hour, will increase as tolerated. RFA #20g noted flushing well. Left femoral HD cath noted. Oral care and patient turned and repositioned q 2 hours. Bed is in lowest position, side rails x3 in upright position, call light is within reach, fall safety and aspiration precautions enforced. Will continue with plan of care.
[2019-12-11] MEDS: DOCUSATE SODIUM 100 MG CAPSULE PO SCH ×2 (08:51→16:31)
[2019-12-11] MEDS: LEVETIRACETAM SOL (5 ML) 100 MG/ML UDC GT SCH ×2 (08:51→20:33)
[2019-12-11] MEDS: LACTOBACILLUS RHAMNOSUS GG 1 EACH CAP.SPRINK GT SCH (08:51)
[2019-12-11] MEDS: ZINC SULFATE 220 MG CAPSULE GT SCH (08:51)
[2019-12-11] MEDS: ASCORBIC ACID 500 MG TABLET GT SCH (08:51)
[2019-12-11] MEDS: CHLORHEXIDINE GLUCONATE 15 ML UDC MM SCH ×2 (08:51→20:33)
[2019-12-11] MEDS: BRIMONIDINE TARTRATE OPHT SOLN 5 ML BOTTLE OP SCH ×3 (08:53→16:31)
[2019-12-11] MEDS: HYDROGEL DRESSING 90 GM TUBE TP SCH (08:53)
[2019-12-11] MEDS: DORZOLAMIDE OPTH 2% 10 ML BOTTLE RIGHTEYE SCH ×3 (08:53→16:31)
[2019-12-11] MEDS: CEFEPIME 2 GM in IV D5W 100 ML IV SCH (17:52)
--- NOTE | 2019-12-11 18:41 | NUR ---
RN CLOSING NOTE Patient is resting in bed, obtunded, open eyes, on mechanical vent AC 12 VT 500 PEEP 5 O2 40%. Tele monitor NSR 80s. G-TUBE is in place with 0mls residual running feeding at 60 mls/hour. RFA #20g noted flushing well. Left femoral HD cath noted. Oral care and patient turned and repositioned q 2 hours. All patient needs met, all due medications given, patient kept clean and dry throughout the shift. Bed is in lowest position, side rails x3 in upright position, call light is within reach, fall safety and aspiration precautions enforced. Will endorse to filemaker developer.
--- NOTE | 2019-12-11 19:30 | NUR ---
TELE/RN OPENING NOTES RECEIVED PATIENT IN BED RESTING. PATIENT IS ALERT AND ORIENTED, OBTUNDED, OPENS EYES. PATIENT IS ON VENT, AC 12, VT520, O2 40%, PEEP 5. TELE READING AT 70 NSR. PATIENT G TUBE IS PATENT NO RESIDUAL NOTED RUNNING NEPRO AT 60 ML/HR. PATIENT HAS RIGHT FOREARM #20 G INTACT AND LEFT FEM HD CATH. SAFETY MEASURES ARE IN PLACE BED IS LOCKED AND PLACED IN THE LOWEST POSITION WITH ALARM ON, SIDE RAILS UP X 2. CALL LIGHT WITHIN REACH. WILL CONTINUE TO MONITOR.
[2019-12-11] MEDS: LATANOPROST EYE DROP 0.005% 2.5 ML BOTTLE EACHEYE SCH (22:17)
[2019-12-11] MEDS: INSULIN GLARGINE, 100 UNIT/ML CARTRIDGE SQ SCH (22:22)
[2019-12-12] VITALS: BP 133/64
[2019-12-12] MEDS: ALBUTEROL FS 2.5 MG/3 ML VIAL.NEB IH SCH ×3 (01:40→13:44)
[2019-12-12 04:00] VITALS: BP 119/53
[2019-12-12] MEDS: BLOOD SUGAR DIAGNOSTIC 1 EACH STRIP IN SCH ×3 (05:23→18:33)
[2019-12-12] MEDS: INSULIN REGULAR, HUMAN 100 UNIT/ML 3 ML VIAL SQ PRN (05:24)
--- NOTE | 2019-12-12 06:35 | NUR ---
TELE/RN CLOSING NOTES PATIENT IN BED RESTING. PATIENT IS ALERT AND ORIENTED, OBTUNDED, OPENS EYES. PATIENT IS ON VENT, AC 12, VT520, O2 40%, PEEP 5. TELE READING AT 75 NSR. PATIENT G TUBE IS PATENT 30ML OF RESIDUAL NOTED RUNNING NEPRO AT 60 ML/HR. PATIENT HAS RIGHT FOREARM #20 G INTACT AND LEFT FEM HD CATH. ALL PATIENTS NEEDS HAVE BEEN MET DURING SHIFT. SAFETY MEASURES ARE IN PLACE BED IS LOCKED AND PLACED IN THE LOWEST POSITION WITH ALARM ON, SIDE RAILS UP X 2. CALL LIGHT WITHIN REACH. WILL ENDORSE CARE TO DAY SHIFT.
[2019-12-12 08:00] VITALS: BP 144/67
[2019-12-12 08:03] LABS: CALCIUM, SERUM 9.9 mg/dL (8.5-10.1); CREATININE 4.8 mg/dL (0.6-1.3); POTASSIUM 4.1 mmol/L (3.5-5.1)
[2019-12-12] MEDS: LACTOBACILLUS RHAMNOSUS GG 1 EACH CAP.SPRINK GT SCH (08:22)
[2019-12-12] MEDS: ZINC SULFATE 220 MG CAPSULE GT SCH (08:22)
[2019-12-12] MEDS: ASCORBIC ACID 500 MG TABLET GT SCH (08:22)
[2019-12-12] MEDS: DOCUSATE SODIUM 100 MG CAPSULE PO SCH ×2 (08:22→16:11)
[2019-12-12] MEDS: CHLORHEXIDINE GLUCONATE 15 ML UDC MM SCH (08:22)
[2019-12-12] MEDS: HYDROGEL DRESSING 90 GM TUBE TP SCH (08:23)
[2019-12-12] MEDS: BRIMONIDINE TARTRATE OPHT SOLN 5 ML BOTTLE OP SCH ×3 (08:24→16:12)
[2019-12-12] MEDS: DORZOLAMIDE OPTH 2% 10 ML BOTTLE RIGHTEYE SCH ×3 (08:24→16:12)
[2019-12-12] MEDS: LEVETIRACETAM SOL (5 ML) 100 MG/ML UDC GT SCH (08:26)
--- NOTE | 2019-12-12 11:16 | NUR ---
RN OPEN NOTES PATIENT IS OBTUNDED WITH NO SIGNS OF DISTRESS ON VENTILATOR AC 12, VT520. O2 40%, PEEP 5. TELE READING AT . G-TUBE INTACT AND FEEDING NEPRO AT 60 MLS/HR. IN R FA #20G AND L FEMORAL HD CATH. HOB ELEVATED. BED IS IN LOW POSITION AND LOCKED WITH SIDE RAILS UP X 2 FOR SAFETY. CALL LIGHT WITHIN REACH. WILL CONTINUE TO MONITOR.
[2019-12-12 16:00] VITALS: BP 95/54
[2019-12-12] MEDS: CEFEPIME 2 GM in IV D5W 100 ML IV SCH (18:33)
--- NOTE | 2019-12-12 18:40 | NUR ---
[facility] [phone] GAVE REPORT TO ELÍAS. INFORMED HER THAT PATIENT IS STABLE AND DISCHARGE INSTRUCTIONS ON CONTINUING PRESCRIBED MEDICATIONS, FOLLOW UP WITH PRIMARY CARE PHYSICIAN AND RETURN BACK TO THE ER IN CASE OF AN EMERGENCY. PATIENT ROOM WILL BE 4A. MADE SURE BELONGING LIST AND DISCHARGE PHOTOS WERE TAKEN, VERIFIED. P
--- NOTE | 2019-12-12 19:30 | NUR ---
RN CLOSING NOTES PATIENT IS OBTUNDED AND OPEN EYES. WITH NO SIGNS OF DISTRESS ON VENT SETTINGS AC 12, VT, 500 O2 40% AND PEEP 5. IV R FA #20G INTACT AND L FEMORAL HD CATH. G-TUBE INTACT FEEDING NEPRO AT 60 MLS/HR. SR 85. PILLOW UNDER RIGHT LEG FOR COMFORT. PATIENT REMAINED STABLE THROUGH OUT SHIFT. PATIENT KEPT CLEAN AND DRY. ALL NEEDS, CARE, TREATMENT AND MEDICATIONS ADMINISTERED ANTICIPATED PER ORDER. BED IS IN LOW POSITION AND LOCKED WITH SIDE RAILS UP X 2 FOR SAFETY. CALL LIGHT WITHIN REACH. AMBULANCE TRAINING SYSTEMS OFFICER WILL BE AT 1930. WILL ENDORSE TO THE NEXT NURSE SHIFT.
--- NOTE | 2019-12-12 19:43 | NUR ---
HEEL CASER OPENING NOTES RECEIVED PATIENT IN BED COMFORTABLY; OBTUNDED, OPENS EYES; VENT-DEPENDENT; TOLERATING CURRENT VENT SETTINGS WELL, NO SOB NOTED; BREATHING EVEN AND UNLABORED; NO DISTRESS NOTED; TELE MONITOR READS NSR 85BPM; G TUBE IN PLACE, INFUSING NEPRO @ 60ML/HR; R FA #20, AND L FEMORAL HD CATH PRESENT; PER MORNING SHIFT, PATIENT IS READY FOR DISCHARGE AND TO KEEP IV ACCESS SITE D/T CONTINUOUS IV ABX; SAFETY PRECAUTIONS IMPLEMENTED; BED LOCKED IN LOW POSITION; SIDE RAILSX2; AWAITING DISCHARGE, WILL CONT TO MONITOR
--- NOTE | 2019-12-12 20:07 | NUR ---
HEALTH SCIENCES PROGRAM COORDINATOR NOTES PATIENT DISCHARGED FROM UNIT, ACCOMPANIED BY 3 EMT STAFF; ALL DOCUMENTS SIGNED WITH LAWRENCE GARCIA SINCE PATIENT IS NON-VERBAL AND UNABLE TO SIGN OFF FOR HERSELF; ALL DOCUMENTS GIVEN TO EMT, PER AM SHIFT, REPORT GIVEN TO LAWRENCE MITCHELL FROM [facility]; PATIENT IS ASSIGNED ROOM 4A; VITAL SIGNS STABLE AND WNL; PATIENT LEFT UNIT APPROXIMATELY 2006, CHARGE NURSE AWARE;
== END 2019-12-12 20:07 | DRG 314 ==
LOC: ER 16:25 → TELE 20:05
PROC: 5A1955Z Respiratory Ventilation, Greater than 96 Consecutive Hours (ICD-10-PCS; principal; 2019-12-08)
PROC: 05H533Z Insertion of Infusion Device into Right Subclavian Vein, Percutaneous Approach (ICD-10-PCS; 2019-12-09)
PROC: B546ZZA Ultrasonography of Right Subclavian Vein, Guidance (ICD-10-PCS; 2019-12-09)
PROC: 5A1D70Z Performance of Urinary Filtration, Intermittent, Less than 6 Hours Per Day (ICD-10-PCS; 2019-12-09)
PROC: 30233N1 Transfusion of Nonautologous Red Blood Cells into Peripheral Vein, Percutaneous Approach (ICD-10-PCS; 2019-12-09)
PROC: 0JH63XZ Insertion of Tunneled Vascular Access Device into Chest Subcutaneous Tissue and Fascia, Percutaneous Approach (ICD-10-PCS; 2019-12-09)
PROC: 06HN33Z Insertion of Infusion Device into Left Femoral Vein, Percutaneous Approach (ICD-10-PCS; 2019-12-09)
PROC: 06PY33Z Removal of Infusion Device from Lower Vein, Percutaneous Approach (ICD-10-PCS; 2019-12-09)
PROC: 0D20XUZ Change Feeding Device in Upper Intestinal Tract, External Approach (ICD-10-PCS; 2019-12-10)
DX: T82.41XA Breakdown (mechanical) of vascular dialysis catheter, initial encounter (principal); N18.6 End stage renal disease; R53.2 Functional quadriplegia; J18.9 Pneumonia, unspecified organism; I13.2 Hypertensive heart and chronic kidney disease with heart failure and with stage 5 chronic kidney disease, or end stage renal disease; G93.1 Anoxic brain damage, not elsewhere classified; J96.10 Chronic respiratory failure, unspecified whether with hypoxia or hypercapnia; D68.69 Other thrombophilia; L97.419 Non-pressure chronic ulcer of right heel and midfoot with unspecified severity; L97.429 Non-pressure chronic ulcer of left heel and midfoot with unspecified severity; E44.0 Moderate protein-calorie malnutrition; Z99.11 Dependence on respirator [ventilator] status; Z43.1 Encounter for attention to gastrostomy; G93.49 Other encephalopathy; Y71.2 Prosthetic and other implants, materials and accessory cardiovascular devices associated with adverse incidents; I50.9 Heart failure, unspecified; E11.621 Type 2 diabetes mellitus with foot ulcer; I25.10 Atherosclerotic heart disease of native coronary artery without angina pectoris; K21.9 Gastro-esophageal reflux disease without esophagitis; G40.909 Epilepsy, unspecified, not intractable, without status epilepticus; R13.10 Dysphagia, unspecified; Z93.0 Tracheostomy status; Z99.2 Dependence on renal dialysis; E11.22 Type 2 diabetes mellitus with diabetic chronic kidney disease; E88.09 Other disorders of plasma-protein metabolism, not elsewhere classified; M62.50 Muscle wasting and atrophy, not elsewhere classified, unspecified site; M24.571 Contracture, right ankle; M24.572 Contracture, left ankle; D64.9 Anemia, unspecified; E87.5 Hyperkalemia; E66.9 Obesity, unspecified; Z68.27 Body mass index [BMI] 27.0-27.9, adult; L90.5 Scar conditions and fibrosis of skin; L98.8 Other specified disorders of the skin and subcutaneous tissue; S41.112A Laceration without foreign body of left upper arm, initial encounter; S41.111A Laceration without foreign body of right upper arm, initial encounter; X58.XXXA Exposure to other specified factors, initial encounter; Y93.9 Activity, unspecified; Y92.129 Unspecified place in nursing home as the place of occurrence of the external cause; E11.51 Type 2 diabetes mellitus with diabetic peripheral angiopathy without gangrene; Z79.4 Long term (current) use of insulin
CPT/HCPCS: 31720; 36415; 71045-TC; 80048-TC; 80053-TC; 80202-TC; 82962-TC; 83605-TC; 83735-TC; 84100-TC; 85025-TC; 85610-TC; 85730-TC; 86706; 86850-TC; 86921-TC; 87040-TC; 87081-TC; 87340; 88300-TC; 90935-TC; 94003-TC; 94760-TC; 94762-TC; 94799-TC; 99082-TC; A4623; A6248; A6253; A6403; A7526; G0378; J0692; J1644; J1815; J1953; J3370; J3490; J7030; J7040; J7050; J7060; P9016-BL

== ENCOUNTER 2020-01-06 23:30 | Inpatient (IN) | payer MEDICARE, OTHER ==
[~2020-01-06] VITALS: Ht 157.5 cm; Wt 68.9 kg
[~2020-01-06 23:30] MED LIST changes: -VANC500V IV
--- NOTE | 2020-01-06 23:30 | NUR ---
BB AMBULANCE FROM [facility] FOR RIGHT SHOULDER DISLOCATION; PT TO BED 5, AOX0, VENT AND TRACHE DEPENDENT, -SOB NOTED. NAD NOTED. NOTED WITH BRUSING ON RT UPPER ARM TO SHOULDER. NO SKIN BREAKDOWN NOTED ON SITE. PLACED ON MONITOR, VSS, PENDING ER PROVIDER ELMA
[2020-01-07] MEDS ORDERED: ETOMIDATE 2 MG/ML VIAL ONE (00:03)
[2020-01-07] MEDS ORDERED: PROPOFOL 20 ML IV ONE (00:16)
--- NOTE | 2020-01-07 00:30 | NUR ---
ATTEMPTED RT SHOULDER REDUCTION BY DR. BURTON. UNSUCCESSFUL
[2020-01-07 00:59] LABS: BASOPHILS # (AUTO) 0.1 /CMM (0.0-0.2); BASOPHILS % (AUTO) 0.6 % (0.0-2.0); EOSINOPHILS % (AUTO) 0.6 % (0.0-6.0); HEMATOCRIT 34 % (33-45); HEMOGLOBIN 10.5 g/dL (11.5-14.8); LYMPHOCYTES # (AUTO) 1.5 /CMM (0.8-4.8); LYMPHOCYTES % (AUTO) 16.3 % (20.0-44.0); MEAN CORPUSCULAR HGB CONC 31 g/dl (31.0-36.0); MEAN CORPUSCULAR VOLUME 92 fL (82-100); MONOCYTES # (AUTO) 0.6 /CMM (0.1-1.30); MONOCYTES % (AUTO) 6.6 % (2.0-12.0); NEUTROPHILS % (AUTO) 75.9 % (43.0-81.0); PLATELET COUNT (AUTO) 297 /CMM (150-450); RED BLOOD CELL COUNT(AUTO) 3.67 MIL/uL (4.0-5.2); WHITE BLOOD COUNT (AUTO) 9.2 K/uL (4.3-11.0)
[2020-01-07] MEDS ORDERED: ETOMIDATE 2 MG/ML VIAL IV ONE (01:00)
[2020-01-07] MEDS ORDERED: PROPOFOL 200 MG/20 ML VIAL IV ONE (01:00)
[2020-01-07] MEDS ORDERED: IV NS 0.9% 500 ML BAG IV ONE (01:00)
[2020-01-07 01:35] LABS: CALCIUM, SERUM 8.9 mg/dL (8.5-10.1); CREATININE 3.7 mg/dL (0.6-1.3); POTASSIUM 3.5 mmol/L (3.5-5.1)
--- NOTE | 2020-01-07 04:25 | NUR ---
REPORT GIVEN TO VANESSA BRAVO FOR SHERRY PT WILL BE TRANSPORTED TO 3RD FLOOR
--- NOTE | 2020-01-07 04:57 | NUR ---
PT TRANSPORTED TO 1ST FLOOR
[2020-01-07 06:15] VITALS: BP 100/40
--- NOTE | 2020-01-07 07:00 | NUR ---
rn note: Per previous nurse, was informed and notified about patient's admission and orders were verified with him.
[2020-01-07] MEDS ORDERED: NEPRO VAN 237 ML CAN GT SCH (07:30)
[2020-01-07] MEDS ORDERED: ONDANSETRON HCL/PF 4 MG/2 ML VIAL IVP PRN (07:30)
[2020-01-07] MEDS ORDERED: Z GUARD REMEDY 2 OZ OINT TP PRN (07:30)
[2020-01-07] MEDS ORDERED: FAMOTIDINE 40 MG TABLET GT SCH (07:30)
[2020-01-07] MEDS ORDERED: MAG HYDROX/AL HYDROX/SIMETH 30 ML UDC GT PRN (07:30)
[2020-01-07] MEDS ORDERED: ZOLPIDEM TARTRATE 5 MG TABLET GT PRN (07:30)
[2020-01-07] MEDS ORDERED: HYDROCODONE/APAP 5/325MG TABLET GT PRN (07:30)
--- NOTE | 2020-01-07 07:30 | NUR ---
RN OPENING NOTE: Received patient in bed and obtunded. On Mechanical Ventilation and tolerating settings well, No SOB and not in respiratory distress and saturation noted @ 98%. Isolation precaution for COVID [address] Tele monitor showing sinus rhythm. IV sites clean, dry, patent and intact. No pain noted on patient. Gtube patent and intact with tube feeding ordered and will hang once feeding pump becomes available. Call light in reach. Bed locked, low and at semi-woods's position. Safety ensured and observed. Side rails up x3. Will continue to monitor.
--- NOTE | 2020-01-07 07:46 | NUR ---
RN NOTES: AT 0425 RECEIVED ENDORSEMENT FROM MARELY/RN/ER,PATIENT WAS BROUGHT BY AMBULANCE FROM [facility] DUE TO RIGHT SHOULDER DISLOCATION, RAPID TEST IS NEGATIVE, PCR STILL PENDING, ER TRIED MANUAL REDUCTION BUT UNABLE TO RETURN BACK IN PLACE, PATIENT WILL BE ADMITTED AND REFEREED TO FOR ORTHO CONSULT.ON G-TUBE WITH TACH ON VENTILATOR.
--- NOTE | 2020-01-07 07:50 | NUR ---
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, IV SITE LH G#18, UPON PHYSICAL ASSESSMENT, NOTED WITH MULTIPLE ULCERS AND WOUND ON THE RIGHT AND LEFT FOTT, WELL THE SACRAL AREA, SHE HAD REDNESS ON THE ABDOMINAL FOLD, RIGHT NAD LEFT ARMPIT, SKIN DISCOLORATION ON THE STAN, SHE HAS DIALYSIS SITE ON THE STAN WITH SUTURES, AND LEFT FEMORAL CATH FOR DIALYSIS INTACT, ,G-TUBE SITE AND THE REST OF THE WOUNDS ALL DRESSING CHANGE, NEEDS WOUND CONSULT AND DIETARY CONSULT ON NEPHRO AT 600CC/HR X 17 HOURS FROM FACILITY AND ON DIALYSIS EVERY M-W- UNDER RENAL OF [place].OFF LOADING BLE, KEPT IN SEMI FOWLERS POSITION, NO SOB OR RESPIRATORY DISTRESS NOTED UPON ADMISSION.ENDORSED FOR CONTINUITY OF CARE.
[2020-01-07 08:00] VITALS: BP 120/61
[2020-01-07] MEDS ORDERED: DEXTROSE 50%-WATER 50 ML DISP.SYRIN IV PRN (08:00)
[2020-01-07 08:47] LABS: BASOPHILS # (AUTO) 0.1 /CMM (0.0-0.2); BASOPHILS % (AUTO) 0.5 % (0.0-2.0); EOSINOPHILS % (AUTO) 0.6 % (0.0-6.0); HEMATOCRIT 36 % (33-45); HEMOGLOBIN 10.6 g/dL (11.5-14.8); LYMPHOCYTES # (AUTO) 1.9 /CMM (0.8-4.8); LYMPHOCYTES % (AUTO) 13.4 % (20.0-44.0); MEAN CORPUSCULAR HGB CONC 30 g/dl (31.0-36.0); MEAN CORPUSCULAR VOLUME 95 fL (82-100); MONOCYTES # (AUTO) 1.5 /CMM (0.1-1.30); MONOCYTES % (AUTO) 10.4 % (2.0-12.0); NEUTROPHILS # (AUTO) 10.5 /CMM (1.8-8.9); NEUTROPHILS % (AUTO) 75.1 % (43.0-81.0); PLATELET COUNT (AUTO) 311 /CMM (150-450); RED BLOOD CELL COUNT(AUTO) 3.76 MIL/uL (4.0-5.2)
[2020-01-07 08:56] LABS: CALCIUM, SERUM 9.2 mg/dL (8.5-10.1); POTASSIUM 3.9 mmol/L (3.5-5.1)
[2020-01-07] MEDS ORDERED: DOCUSATE SODIUM 100 MG CAPSULE PO SCH (09:00)
[2020-01-07] MEDS: MIDODRINE HCL (5MG) 5 MG TABLET GT SCH ×3 (09:00→16:45)
--- NOTE | 2020-01-07 09:00 | NUR ---
rn note: PAtient undergoing dialysis at the moment. Will administer scheduled medications after dialysis
[2020-01-07] MEDS: LEVETIRACETAM SOL (5 ML) 100 MG/ML UDC GT SCH ×2 (11:45→21:41)
[2020-01-07] MEDS: VIT B CMPLX 3/FA/VIT C/BIOTIN 1 TAB TABLET GT SCH (11:45)
[2020-01-07] MEDS: ZINC SULFATE 220 MG CAPSULE GT SCH (11:45)
[2020-01-07] MEDS: LACTOBACILLUS RHAMNOSUS GG 1 EACH CAP.SPRINK GT SCH (11:45)
[2020-01-07] MEDS: ASCORBIC ACID 500 MG TABLET GT SCH (11:45)
[2020-01-07] MEDS: DOCUSATE SODIUM LIQ 100 MG/10 ML UDC GT SCH ×2 (11:45→16:45)
[2020-01-07] MEDS: PROSOURCE / PROSTAT (PYXIS) 30 ML UDC GT SCH (11:45)
[2020-01-07] MEDS: BRIMONIDINE TARTRATE OPHT SOLN 5 ML BOTTLE OP SCH ×2 (11:46→16:46)
[2020-01-07] MEDS: DORZOLAMIDE OPTH 2% 10 ML BOTTLE RIGHTEYE SCH ×3 (11:46→16:46)
[2020-01-07 12:00] VITALS: BP 91/56
[2020-01-07] MEDS: BLOOD SUGAR DIAGNOSTIC 1 EACH STRIP IN SCH ×3 (13:17→23:56)
[2020-01-07] MEDS: INSULIN REGULAR, HUMAN 100 UNIT/ML 3 ML VIAL SQ PRN ×3 (13:21→23:57)
[2020-01-07 16:00] VITALS: BP 90/55
--- NOTE | 2020-01-07 19:15 | NUR ---
COMMUNITY DIETITIAN INITIAL NOTE RECEIVED PATIENT RESTING IN BED. DNR NOTED. DROPLET ISOLATION PRECAUTIONS IMPLEMENTED PENDING COVID RESULTS. PT IS BED RIDDEN AND IS RECEIVING MECHANICAL VENTILATION SATURATING AT 100. VENT SETTINGS SET PER ORDER AND TOLERATING WELL. PT DOES NOT APPEAR TO BE IN DISTRESS. NO PRESENCE OF SOB. ACCORDING TO MONITOR, PT IS SINUS RHYTHM. IVS FLUSHING WELL. G TUBE IS PATENT RECEIVING NEPHRO VIA FEEDING PUMP. CALL LIGHT WITHIN REACH. BED IS IN LOWEST POSITION AND LOCKED. BED ALARM IS ON. WILL CONTINUE TO MONITOR. NEEDS ANTICIPATED.
[2020-01-07] MEDS: NEPRO 1,000 ML BOTTLE GT PRN (19:30)
[2020-01-07 20:00] VITALS: BP 125/40
--- NOTE | 2020-01-07 20:02 | NUR ---
RN CLOSING NOTE: Patient remains in bed and obtunded. On Mechanical Ventilation and tolerating settings well, No SOB and not in respiratory distress and saturation noted @ 100%. Isolation precaution for COVID [address] Tele monitor showing sinus rhythm. IV sites clean, dry, patent and intact. No pain noted on patient. Gtube patent and intact still awaiting proper functioning feeding pump to be delivered. Call light in reach. Bed locked, low and at semi-woods's position. Safety ensured and observed. Side rails up x3. Due medications given. Treatment given as ordered. Endorsed to oncoming shift for SHERRY.
[2020-01-07] MEDS: INSULIN GLARGINE, 100 UNIT/ML CARTRIDGE SQ SCH (21:42)
[2020-01-07] MEDS: LATANOPROST EYE DROP 0.005% 2.5 ML BOTTLE EACHEYE SCH ×2 (22:00→22:26)
[2020-01-07] MEDS: ACETAMINOPHEN 325 MG TABLET PO PRN (22:44)
[2020-01-08] VITALS: BP 92/30
[2020-01-08] MEDS: BRIMONIDINE TARTRATE OPHT SOLN 5 ML BOTTLE OP SCH ×3 (00:32→16:14)
[2020-01-08 04:10] VITALS: BP 127/30
[2020-01-08] MEDS: BLOOD SUGAR DIAGNOSTIC 1 EACH STRIP IN SCH ×4 (05:22→23:19)
[2020-01-08] MEDS: INSULIN REGULAR, HUMAN 100 UNIT/ML 3 ML VIAL SQ PRN ×4 (05:23→22:32)
[2020-01-08 06:25] LABS: BASOPHILS % (AUTO) 0.3 % (0.0-2.0); EOSINOPHILS % (AUTO) 0.7 % (0.0-6.0); HEMATOCRIT 32 % (33-45); HEMOGLOBIN 9.8 g/dL (11.5-14.8); LYMPHOCYTES # (AUTO) 1.3 /CMM (0.8-4.8); LYMPHOCYTES % (AUTO) 9.3 % (20.0-44.0); MEAN CORPUSCULAR HGB CONC 31 g/dl (31.0-36.0); MEAN CORPUSCULAR VOLUME 92 fL (82-100); MONOCYTES # (AUTO) 0.9 /CMM (0.1-1.30); MONOCYTES % (AUTO) 6.5 % (2.0-12.0); NEUTROPHILS # (AUTO) 11.8 /CMM (1.8-8.9); NEUTROPHILS % (AUTO) 83.2 % (43.0-81.0); PLATELET COUNT (AUTO) 339 /CMM (150-450); RED BLOOD CELL COUNT(AUTO) 3.49 MIL/uL (4.0-5.2); WHITE BLOOD COUNT (AUTO) 14.2 K/uL (4.3-11.0)
--- NOTE | 2020-01-08 06:40 | NUR ---
LINSEED OIL TEMPERER CLOSING NOTE PT IS RESTING COMFORTABLY IN BED. IMPLEMENTING DROPLET ISOLATION PRECAUTIONS AND MAINTAINING SAFE ENVIRONMENT. ON MECHANICAL VENTILATION, SETTINGS ORDERED ARE TOLERATED. NO SIGNS OF RESP DISTRESS OR SOB. COORDINATED WITH RT. PERFORMED WOUND CARE TO SACRUM AND BILATERAL FEET. ADMINISTERED MEDICATIONS ORDERED. G TUBE STILL TOLERATING FEEDINGS, FLUSHES WELL. HOB RAISED. IV SITES PATENT, INTACT AND FLUSHES WELL. CALL LIGHT WITHIN REACH. BED IS IN THE LOWEST POSITION, LOCKED WITH BED ALARM ON. WILL ENDORSE ONCOMING NURSE.
[2020-01-08 07:10] LABS: CALCIUM, SERUM 9.1 mg/dL (8.5-10.1); CREATININE 3.9 mg/dL (0.6-1.3); MAGNESIUM 2.1 mg/dL (1.8-2.4); PHOSPHORUS 2.9 mg/dL (2.5-4.9); POTASSIUM 3.1 mmol/L (3.5-5.1)
[2020-01-08 08:00] VITALS: BP 113/42
[2020-01-08] MEDS: ZINC SULFATE 220 MG CAPSULE GT SCH (08:37)
[2020-01-08] MEDS: VIT B CMPLX 3/FA/VIT C/BIOTIN 1 TAB TABLET GT SCH (08:38)
[2020-01-08] MEDS: DOCUSATE SODIUM LIQ 100 MG/10 ML UDC GT SCH ×2 (08:38→16:13)
[2020-01-08] MEDS: LACTOBACILLUS RHAMNOSUS GG 1 EACH CAP.SPRINK GT SCH (08:38)
[2020-01-08] MEDS: LEVETIRACETAM SOL (5 ML) 100 MG/ML UDC GT SCH ×2 (08:38→22:00)
[2020-01-08] MEDS: ASCORBIC ACID 500 MG TABLET GT SCH (08:38)
[2020-01-08] MEDS: MIDODRINE HCL (5MG) 5 MG TABLET GT SCH ×4 (08:38→16:13)
[2020-01-08] MEDS: PROSOURCE / PROSTAT (PYXIS) 30 ML UDC GT SCH (08:39)
[2020-01-08] MEDS: DORZOLAMIDE OPTH 2% 10 ML BOTTLE RIGHTEYE SCH ×3 (08:39→16:14)
--- NOTE | 2020-01-08 09:12 | NUR ---
patient covid negative dr. arias cleared patient to move to noncovid floor nursing sup made aware,awaits bed.
[2020-01-08 12:00] VITALS: BP 146/50
[2020-01-08 16:00] VITALS: BP 120/50
[2020-01-08] MEDS: NEPRO 1,000 ML BOTTLE GT PRN (18:18)
--- NOTE | 2020-01-08 19:30 | NUR ---
TELE/RN OPENING PETER RECEIVED PATIENT RESTING IN BED. PATIENT IS ALERT AND ORIENTED X 0, OBTUNDED, WITH EYES CLOSED. PATIENT IS ON VENT, SETTING AT AC 12, TV 500, FIO2 40 PEEP 5. PATIENT TELE READING SR 90S. PATIENT WILL BE D/C FROM TELE. PATIENT G TUBE IN PLACE RUNNING NEPHRO AT 60 ML/HR. PATIENT HAD PASTOR CATH IN PLACE RIGHT INGUINAL, RIGHT HAND #20 G INTACT. SAFETY MEASURES ARE IN PLACE, BED IS LOCKED AND PLACED IN THE LOW POSITION, CALL LIGHT WITH IN REACH SIDE RAILS UP X 3. WILL CONTINUE TO MONITOR.
[2020-01-08 20:00] VITALS: BP 155/44
--- NOTE | 2020-01-08 21:00 | NUR ---
TELE/RN NOTES REPORT GIVEN TO LAWRENCE NEWSOME. PATIENT TRANSFERRED TO ROOM 328 PER ACLS PROTOCOL. NO INJURIES TO PATIENT DURING TRANSFER. PATIENT IS STABLE, V/S WITHIN NORMAL LIMITS.
[2020-01-08] MEDS: LATANOPROST EYE DROP 0.005% 2.5 ML BOTTLE EACHEYE SCH (22:28)
[2020-01-08] MEDS: INSULIN GLARGINE, 100 UNIT/ML CARTRIDGE SQ SCH (22:32)
--- NOTE | 2020-01-08 23:10 | NUR ---
TELE/RN NOTE Received patient from [facility] via [facility] @ [id number]. Vital signs: BP133/48 P86 T98.9 R14 O2sat 100%. Patient is obtund, open eyes to stimuli. HOB elevated. Patient is on mechanical ventilation AC 12, TV 500, FiO2 40, PEEP 5, O2 saturation 100%. Tele monitor sinus rhythm in the 80s. GTF running @ 60 ml/hr, no residual. Patient tolerating well. GTF schedule: on @ 1830 and off @ 1130. Permacath access in left inguinal. IV site right hand 20g, saline lock, patent and intact. No signs of infiltration. Bed in low position, wheels locked, side rails up x2, will continue to monitor.
[2020-01-09] VITALS (9 sets, daily range): BP systolic 94–139; BP diastolic 45–79
[2020-01-09] MEDS: BRIMONIDINE TARTRATE OPHT SOLN 5 ML BOTTLE OP SCH ×3 (01:34→17:09)
[2020-01-09] MEDS: ACETAMINOPHEN 325 MG TABLET PO PRN ×2 (04:27→18:43)
--- NOTE | 2020-01-09 04:28 | NUR ---
TELE/RN NOTE Patient Tmax 100. Administered PRN acetaminophen as ordered. Will continue to monitor.
[2020-01-09] MEDS: INSULIN REGULAR, HUMAN 100 UNIT/ML 3 ML VIAL SQ PRN ×3 (05:42→17:23)
[2020-01-09] MEDS: BLOOD SUGAR DIAGNOSTIC 1 EACH STRIP IN SCH ×3 (05:46→17:11)
--- NOTE | 2020-01-09 06:26 | NUR ---
TELE/RN CLOSING NOTE Patient in bed. Patient is obtund, eyes open to stimuli. HOB elevated. Tongue midline. Mucous membranes pink and moist. Patient is on mechanical ventilation AC 12, TV 500, FiO2 40, PEEP 5, O2 saturation 100%. Tele monitor normal sinus rhythm in the 90s. GTF running @ 60 ml/hr, no residual. Patient tolerating well. GTF schedule: on @ 1830 and off @ 1130. Permacath access in left inguinal. IV site right hand 20g, saline lock, patent and intact. No signs of infiltration. Bed in low position, wheels locked, side rails up x2, will continue to monitor.
--- NOTE | 2020-01-09 07:28 | NUR ---
TELE/RN OPENING NOTE Patient in bed with HOB elevated, obtunded and opens eyes upon tactile and verbal stimulation. No s/s of pain/discomfort noted. Tolerating vent settings well, AC 12, PEEP 5, TV 500, FiO2 40%, saturating at 100%. No respiratory or cardiac distress noted. On tele monitor, reading SR 85. IV access noted on R hand #20 g, patent and intact, and flushing well. L inguinal permacath noted. Both sites have no s/s of infection, infiltration, or bleeding noted. G-tube in place clean, patent and intact, running Nephro at 60 ml/hr. Fall precautions maintained. Will continue to monitor for any changes of condition.
[2020-01-09] MEDS: DORZOLAMIDE OPTH 2% 10 ML BOTTLE RIGHTEYE SCH ×3 (08:49→17:24)
[2020-01-09] MEDS: PROSOURCE / PROSTAT (PYXIS) 30 ML UDC GT SCH (08:49)
[2020-01-09] MEDS: DOCUSATE SODIUM LIQ 100 MG/10 ML UDC GT SCH ×2 (08:49→17:10)
[2020-01-09] MEDS: ZINC SULFATE 220 MG CAPSULE GT SCH (08:50)
[2020-01-09] MEDS: LACTOBACILLUS RHAMNOSUS GG 1 EACH CAP.SPRINK GT SCH (08:50)
[2020-01-09] MEDS: LEVETIRACETAM SOL (5 ML) 100 MG/ML UDC GT SCH ×2 (08:50→20:32)
[2020-01-09] MEDS: VIT B CMPLX 3/FA/VIT C/BIOTIN 1 TAB TABLET GT SCH (08:50)
[2020-01-09] MEDS: ASCORBIC ACID 500 MG TABLET GT SCH (08:50)
[2020-01-09] MEDS: MIDODRINE HCL (5MG) 5 MG TABLET GT SCH ×4 (08:51→17:10)
--- NOTE | 2020-01-09 10:07 | NUR ---
TELE/RN NOTE Potassium 3.1 noted from yesterday, saw that it was not replaced. Dr. Jacinto at bedside, MD made aware, no new orders at this time, states "will fix by dialysis."
--- NOTE | 2020-01-09 11:30 | NUR ---
TELE/RN NOTE Patient currently having dialysis. Will continue to monitor for any changes of condition.
--- NOTE | 2020-01-09 11:47 | NUR ---
TELE/RN NOTE Checked BS, 427 noted, repeated BS check again and resulted at 417 @1138, notified MD and administered 10 units @1147. Will re-check blood sugar in 15 minutes.
--- NOTE | 2020-01-09 12:03 | NUR ---
TELE/RN NOTE Clarified discharge order with Dr. Whitten since patient is scheduled to have wound debridement on feet tomorrow with Dr. Burrell, with daughter's consent. Dr. Whitten ordered to cancel discharge order.
--- NOTE | 2020-01-09 12:06 | NUR ---
TELE/RN NOTE Blood sugar re-checked, 366. Notified MD. Will check in an hour.
--- NOTE | 2020-01-09 13:04 | NUR ---
TELE/RN NOTE Non-administered Proamatine 10mg since patient is currently having hemodialysis.
--- NOTE | 2020-01-09 13:08 | NUR ---
TELE/RN NOTE Rechecked BS after 1 hour of administering 10 units of insulin, 305. Patient exhibiting no s/s of hyperglycemia. MD aware, no new orders at this time.
--- NOTE | 2020-01-09 13:10 | NUR ---
TELE/RN NOTE Asked Dr. Whitten for an order of chem prophylaxis since patient is contraindicated for DVT pumps (pressure ulcers on the feet present). Ordered heparin 5000u IV q12h, carried out.
--- NOTE | 2020-01-09 18:45 | NUR ---
TELE/RN NOTES Patient noted temp at 100.4, gave tylenol and provided cooling measures. Will continue to monitor.
--- NOTE | 2020-01-09 19:27 | NUR ---
TELE/RN CLOSING NOTE Patient in bed with HOB elevated, obtunded and opens eyes upon tactile and verbal stimulation. No s/s of pain/discomfort noted. Tolerated vent settings well throughout shift, AC 12, PEEP 5, TV 500, FiO2 40%, saturating at 100%. No respiratory or cardiac distress noted. On tele monitor, reading SR 89. IV access noted on R hand #20 g, patent and intact, and flushing well. L inguinal permacath noted to remain patent and clean with dry dressing. Both sites have no s/s of infection, infiltration, or bleeding noted. G-tube in place clean, patent and intact, running Nephro at 60 ml/hr. No gastric residual noted. Fall precautions maintained. Will endorse to night order selector nurse.
[2020-01-09] MEDS: HEPARIN SODIUM, PORCINE 5000 UNITS/1 ML VIAL IV SCH (21:00)
--- NOTE | 2020-01-09 21:24 | NUR ---
RN NOTES HEPARIN SODIUM, PORCINE 5,000 UNITS NOT GIVEN. PATIENT WILL HAVE WOUND DEBRIDEMENT IN THE MORNING. 01/10/20 PER .
[2020-01-09] MEDS: LATANOPROST EYE DROP 0.005% 2.5 ML BOTTLE EACHEYE SCH (22:27)
[2020-01-09] MEDS: INSULIN GLARGINE, 100 UNIT/ML CARTRIDGE SQ SCH (22:30)
[2020-01-09] MEDS: NEPRO 1,000 ML BOTTLE GT PRN (22:34)
[2020-01-10] VITALS: BP 165/83
[2020-01-10] MEDS: BLOOD SUGAR DIAGNOSTIC 1 EACH STRIP IN SCH ×4 (00:35→18:26)
[2020-01-10] MEDS: INSULIN REGULAR, HUMAN 100 UNIT/ML 3 ML VIAL SQ PRN ×4 (00:37→17:00)
[2020-01-10] MEDS: BRIMONIDINE TARTRATE OPHT SOLN 5 ML BOTTLE OP SCH ×3 (00:38→16:55)
--- NOTE | 2020-01-10 07:08 | NUR ---
COKE OVEN MASON NOTES ALL NEEDS ATTENDED AND MET, SAFETY MEASURES IN PLACE, ASPIRATION PRECAUTION EMPHASIZED. VENT SETTINGS TOLERATING WELL, SUCTIONED SECRETIONS PRN, IV ACCESS INTACT AND PATENT ON HER RIGHT HAND. LEFT INGUINAL PERMA CATH INTACT AND IN PLACED. GT INTACT AND PATENT, FEEDING TOLERATING WELL NEPRO AT 60 ML/HR. NO FACIAL GRIMACING NOTED AT THIS TIME, CALL LIGHT WITH IN EASY REACH, BED IN LOW LOCKED POSITION, ALL NEEDS ANTICIPATED, KEPT CLEAN WARM DRY AND COMFORTABLE, AFEBRILE THE WHOLE SHIFT. ENDORSED TO AM NURSE FOR CONTINUITY OF CARE.
--- NOTE | 2020-01-10 07:40 | NUR ---
RN NOTES RECEIVED PATIENT IN BED RESTING COMFORTABLY IN MODERATE HIGH BACK REST. OBTUNDED, OPEN EYES TO VERBAL STIMULI, SAFETY MEASURES IN PLACE, ASPIRATION PRECAUTION. VENT SETTINGS TOLERATING WELL, IV ACCESS ON RIGHT HAND #20, INTACT AND PATENT. NOTED WITH LEFT INGUINAL PERMA CATH INTACT AND IN PLACE. GT INTACT AND PATENT, FEEDING TOLERATING WELL NEPRO AT 60 ML/HR. NO FACIAL GRIMACING NOTED AT THIS TIME, CALL LIGHT WITH IN EASY REACH, BED IN LOW LOCKED POSITION, WILL CONTINUE TO MONITOR.
[2020-01-10 08:00] VITALS: BP 163/84
[2020-01-10] MEDS: LEVETIRACETAM SOL (5 ML) 100 MG/ML UDC GT SCH ×2 (08:32→20:40)
[2020-01-10] MEDS: VIT B CMPLX 3/FA/VIT C/BIOTIN 1 TAB TABLET GT SCH (08:32)
[2020-01-10] MEDS: PROSOURCE / PROSTAT (PYXIS) 30 ML UDC GT SCH (08:32)
[2020-01-10] MEDS: ASCORBIC ACID 500 MG TABLET GT SCH (08:32)
[2020-01-10] MEDS: LACTOBACILLUS RHAMNOSUS GG 1 EACH CAP.SPRINK GT SCH (08:32)
[2020-01-10] MEDS: ZINC SULFATE 220 MG CAPSULE GT SCH (08:32)
[2020-01-10] MEDS: DOCUSATE SODIUM LIQ 100 MG/10 ML UDC GT SCH ×2 (08:32→16:54)
[2020-01-10] MEDS: DORZOLAMIDE OPTH 2% 10 ML BOTTLE RIGHTEYE SCH ×3 (08:34→16:56)
[2020-01-10] MEDS: THERAHONEY GEL 1.5 OZ TUBE TP SCH (08:41)
[2020-01-10] MEDS: MIDODRINE HCL (5MG) 5 MG TABLET GT SCH ×3 (08:43→16:55)
[2020-01-10] MEDS: HEPARIN SODIUM, PORCINE 5000 UNITS/1 ML VIAL IV SCH ×2 (08:44→20:42)
--- NOTE | 2020-01-10 09:10 | NUR ---
RN NOTES HELD HEPARIN DUE TO PROCEDURE AND HELD MIDODRINE DUE TO BP OF 163/84. WILL CONTINUE TO MONITOR.
--- NOTE | 2020-01-10 09:34 | NUR ---
WOUND CARE CONSULT: PT FOLLOWED BY SURGICAL AND PODIATRY TEAMS FOR WOUND CARE. DEFER TO SURGICAL TEAMS FOR WOUND TREATMENT PLAN. DISCUSSED SKIN PROTECTION WITH NURSING STAFF. PT IS ON FIRST STEP KENDALL ESCOBAR MD IN AGREEMENT WITH PLAN OF CARE.
[2020-01-10 12:00] VITALS: BP 122/63
[2020-01-10] MEDS: ACETAMINOPHEN 325 MG TABLET PO PRN (13:12)
[2020-01-10 16:00] VITALS: BP 101/69
--- NOTE | 2020-01-10 18:39 | NUR ---
RN NOTES PATIENT IN BED RESTING COMFORTABLY IN MODERATE HIGH BACK REST. OBTUNDED, OPEN EYES TO VERBAL STIMULI, SAFETY MEASURES IN PLACE, ASPIRATION PRECAUTION. VENT SETTINGS TOLERATING WELL, S/P WOUND DEBRIDEMENT ON RIGHT AND LEFT FOOT, WOUND CARE DONE ORDERED. IV ACCESS ON RIGHT HAND #20, INTACT AND PATENT. NOTED WITH LEFT INGUINAL PERMA CATH INTACT AND IN PLACE. GT INTACT AND PATENT, FEEDING TOLERATING WELL NEPRO AT 60 ML/HR, CALL LIGHT WITH IN EASY REACH, BED IN LOW LOCKED POSITION, WILL ENDORSE TO MARKETING WRITER NURSE FOR SHERRY.
--- NOTE | 2020-01-10 19:48 | NUR ---
LIVESTOCK FARMER NOTES RECEIVED PATIENT OBTUNDED, NO SIGNS OF ACUTE RESPIRATORY DISTRESS NOTED. NO FACIAL GRIMACING NOTED., SAFETY MEASURES IN PLACE, ASPIRATION PRECAUTION EMPHASIZED. VENT SETTINGS TOLERATING WELL, SUCTIONED SECRETIONS PRN, IV ACCESS INTACT AND PATENT ON HER RIGHT HAND. LEFT INGUINAL PERMA CATH INTACT AND IN PLACED. GT INTACT AND PATENT, FEEDING TOLERATING WELL NEPRO AT 60 ML/HR. NO FACIAL GRIMACING NOTED AT THIS TIME, CALL LIGHT WITH IN EASY REACH, BED IN LOW LOCKED POSITION, ALL NEEDS ANTICIPATED, KEPT CLEAN WARM DRY AND COMFORTABLE, ALL NEEDS ANTICIPATED. WILL CONTINUE TO MONITOR ACCORDINGLY.
[2020-01-10 20:53] VITALS: BP 110/68
[2020-01-10] MEDS: LATANOPROST EYE DROP 0.005% 2.5 ML BOTTLE EACHEYE SCH (22:35)
[2020-01-10] MEDS: INSULIN GLARGINE, 100 UNIT/ML CARTRIDGE SQ SCH (22:39)
[2020-01-11] VITALS: BP 113/58
[2020-01-11] MEDS: BLOOD SUGAR DIAGNOSTIC 1 EACH STRIP IN SCH ×4 (00:24→17:10)
[2020-01-11] MEDS: BRIMONIDINE TARTRATE OPHT SOLN 5 ML BOTTLE OP SCH ×3 (00:25→16:37)
[2020-01-11] MEDS: INSULIN REGULAR, HUMAN 100 UNIT/ML 3 ML VIAL SQ PRN ×4 (00:27→17:11)
[2020-01-11] MEDS: NEPRO 1,000 ML BOTTLE GT PRN (05:43)
[2020-01-11 06:57] LABS: BASOPHILS # (AUTO) 0.1 /CMM (0.0-0.2); BASOPHILS % (AUTO) 0.4 % (0.0-2.0); EOSINOPHILS % (AUTO) 2.1 % (0.0-6.0); HEMATOCRIT 30 % (33-45); HEMOGLOBIN 9.2 g/dL (11.5-14.8); LYMPHOCYTES # (AUTO) 1.6 /CMM (0.8-4.8); LYMPHOCYTES % (AUTO) 12.9 % (20.0-44.0); MEAN CORPUSCULAR HGB CONC 31 g/dl (31.0-36.0); MEAN CORPUSCULAR VOLUME 90 fL (82-100); MONOCYTES # (AUTO) 0.7 /CMM (0.1-1.30); MONOCYTES % (AUTO) 5.8 % (2.0-12.0); NEUTROPHILS # (AUTO) 9.5 /CMM (1.8-8.9); NEUTROPHILS % (AUTO) 78.8 % (43.0-81.0); PLATELET COUNT (AUTO) 382 /CMM (150-450); RED BLOOD CELL COUNT(AUTO) 3.27 MIL/uL (4.0-5.2); WHITE BLOOD COUNT (AUTO) 12.1 K/uL (4.3-11.0)
[2020-01-11 07:15] LABS: CALCIUM, SERUM 10.2 mg/dL (8.5-10.1); CREATININE 6.4 mg/dL (0.6-1.3); POTASSIUM 3.5 mmol/L (3.5-5.1)
[2020-01-11 08:00] VITALS: BP 152/82
[2020-01-11] MEDS: ASCORBIC ACID 500 MG TABLET GT SCH (08:21)
[2020-01-11] MEDS: ZINC SULFATE 220 MG CAPSULE GT SCH (08:21)
[2020-01-11] MEDS: VIT B CMPLX 3/FA/VIT C/BIOTIN 1 TAB TABLET GT SCH (08:21)
[2020-01-11] MEDS: LACTOBACILLUS RHAMNOSUS GG 1 EACH CAP.SPRINK GT SCH (08:21)
[2020-01-11] MEDS: DOCUSATE SODIUM LIQ 100 MG/10 ML UDC GT SCH ×2 (08:21→16:37)
[2020-01-11] MEDS: LEVETIRACETAM SOL (5 ML) 100 MG/ML UDC GT SCH ×2 (08:21→20:35)
[2020-01-11] MEDS: PROSOURCE / PROSTAT (PYXIS) 30 ML UDC GT SCH (08:22)
[2020-01-11] MEDS: DORZOLAMIDE OPTH 2% 10 ML BOTTLE RIGHTEYE SCH ×3 (08:22→16:37)
[2020-01-11] MEDS: HEPARIN SODIUM, PORCINE 5000 UNITS/1 ML VIAL IV SCH ×2 (08:25→20:36)
[2020-01-11] MEDS: THERAHONEY GEL 1.5 OZ TUBE TP SCH (08:46)
[2020-01-11] MEDS: MIDODRINE HCL (5MG) 5 MG TABLET GT SCH ×3 (08:47→16:38)
[2020-01-11] MEDS ORDERED: ALTEPLASE CATHFLO 2 MG/VIAL IV ONE (14:30)
[2020-01-11 16:00] VITALS: BP 143/99
--- NOTE | 2020-01-11 18:38 | NUR ---
RN NOTES PATIENT IN BED RESTING COMFORTABLY IN MODERATE HIGH BACK REST. OBTUNDED, OPEN EYES TO VERBAL STIMULI, SAFETY MEASURES IN PLACE, ASPIRATION PRECAUTION. VENT SETTINGS TOLERATING WELL, S/P WOUND DEBRIDEMENT ON RIGHT AND LEFT FOOT, WOUND CARE DONE ORDERED. IV ACCESS ON RIGHT HAND #20, INTACT AND PATENT. NOTED WITH LEFT INGUINAL PERMA CATH INTACT AND IN PLACE. GT INTACT AND PATENT, FEEDING TOLERATING WELL NEPRO AT 60 ML/HR, CALL LIGHT WITH IN EASY REACH, BED IN LOW LOCKED POSITION, WILL ENDORSE TO CUSTOMER EXPERIENCE ANALYST NURSE FOR SHERRY.
--- NOTE | 2020-01-11 19:40 | NUR ---
PATIENT SUPPORT TECH NOTES RECEIVED ON BED,OBTUNDED,OPEN EYES.,TRACH/VENT SETTINGS TOLERATED WELL.WITH GT FEEDING OF NEPRO AT 60ML/HR RATE X 20 HOURS.FLUSHED WITH WATER AND NOTED NO10ML RESIDUAL VOLUME.HOB ELEVATED FOR ASPIRATION PRECAUTION.SALINE LOCK RIGHT HAND INTACT AND PATENT.SPECIALTY MATTRESS IN USED FOR SKIN MANAGEMENT.WILL REPOSITION PER PROTOCOL.WILL CONTINUE TO MONITOR STATUS.
[2020-01-11 20:00] VITALS: BP 109/75
--- NOTE | 2020-01-11 20:02 | NUR ---
PT RCVD WITH PORTEX 7 ON VENT WITH NOTED VENT SETTINGS. TRACH IS PATENT AND SECURE. SX DONE. VENT PLUGGED INTO RED OUTLET, VENTS ALARMS ON AND AUDIBLE, FUEL QUALITY TECH DONE . AMBU BAG @ BEDSIDE. NO RESPIRATORY DISTRESS NOTED AT THIS TIME . WILL CONTINUE TO MONITOR PT T/O SHIFT.
[2020-01-11 20:04] VITALS: BP 109/75
--- NOTE | 2020-01-11 21:30 | NUR ---
FERRULER NOTES BLOOD SUGAR CHECK 247,GIVEN LANTUS 46 UNITS SCHEDULED, GIVEN SQ ON RIGHT DELTOID.GT FEEDING IN PROGRESS.
[2020-01-11] MEDS: LATANOPROST EYE DROP 0.005% 2.5 ML BOTTLE EACHEYE SCH (21:57)
[2020-01-11] MEDS: INSULIN GLARGINE, 100 UNIT/ML CARTRIDGE SQ SCH (21:59)
[2020-01-12] VITALS: BP 140/76
--- NOTE | 2020-01-12 | NUR ---
UTILITY TECH NOTES ACCU-CHECK BLOOD SUGAR CHECK 251,GIVEN 6 UNITS HUMULIN PER SLIDING SCALE.GT FEEDING IN PROGRESS.
[2020-01-12] MEDS: BLOOD SUGAR DIAGNOSTIC 1 EACH STRIP IN SCH ×4 (00:04→17:45)
[2020-01-12] MEDS: INSULIN REGULAR, HUMAN 100 UNIT/ML 3 ML VIAL SQ PRN ×4 (00:13→17:47)
[2020-01-12] MEDS: BRIMONIDINE TARTRATE OPHT SOLN 5 ML BOTTLE OP SCH ×3 (01:35→17:44)
[2020-01-12 04:00] VITALS: BP 137/75
--- NOTE | 2020-01-12 06:21 | NUR ---
RESOURCE SPECIALIST TEACHER NOTES NO SIGNIFICANT CHANGE IN STATUS.GT FEEDING TOLERATED WELL,HAD ONE BOWEL MOVEMENT,TRACH CARE DONE BY RT.REPOSITION PER PROTOCOL.AFEBRILE.WILL ENDORSE TO DAY NURSE FOR SHERRY.
[2020-01-12] MEDS: NEPRO 1,000 ML BOTTLE GT PRN (06:45)
--- NOTE | 2020-01-12 07:15 | NUR ---
CASINO FLOOR PERSON NOTES RECEIVED ON BED,OBTUNDED,OPEN EYES WITH TRACH/VENT, SETTINGS TOLERATED WELL.WITH GT FEEDING RUNNING NEPRO AT 60ML/HR RATE X 20 HOURS, PATENT TOLERATING WELL. HOB ELEVATED. SAFETY MEASURES IN PLACE, CALL LIGHT WITHIN REACH. WILL CONTINUE TO MONITOR ACCORDINGLY.
[2020-01-12] MEDS: ZINC SULFATE 220 MG CAPSULE GT SCH (08:36)
[2020-01-12] MEDS: LEVETIRACETAM SOL (5 ML) 100 MG/ML UDC GT SCH ×2 (08:36→21:08)
[2020-01-12] MEDS: DOCUSATE SODIUM LIQ 100 MG/10 ML UDC GT SCH ×2 (08:36→17:43)
[2020-01-12] MEDS: ASCORBIC ACID 500 MG TABLET GT SCH (08:36)
[2020-01-12] MEDS: LACTOBACILLUS RHAMNOSUS GG 1 EACH CAP.SPRINK GT SCH (08:36)
[2020-01-12] MEDS: VIT B CMPLX 3/FA/VIT C/BIOTIN 1 TAB TABLET GT SCH (08:36)
[2020-01-12] MEDS: PROSOURCE / PROSTAT (PYXIS) 30 ML UDC GT SCH (08:37)
[2020-01-12] MEDS: MIDODRINE HCL (5MG) 5 MG TABLET GT SCH ×3 (08:37→17:43)
[2020-01-12] MEDS: THERAHONEY GEL 1.5 OZ TUBE TP SCH (08:38)
[2020-01-12] MEDS: HEPARIN SODIUM, PORCINE 5000 UNITS/1 ML VIAL IV SCH ×2 (08:40→21:08)
[2020-01-12] MEDS: DORZOLAMIDE OPTH 2% 10 ML BOTTLE RIGHTEYE SCH ×3 (08:43→17:43)
--- NOTE | 2020-01-12 13:45 | NUR ---
MS RN NOTES DIALYSIS DONE BY LAWRENCE OVIEDO , 1 LITTER OUT, VITAL SIGNS WITH IN NORMAL LIMITS. PATIENT IN STABLE CONDITION.
--- NOTE | 2020-01-12 13:57 | NUR ---
EXPERIMENTAL PREFLIGHT MECHANIC NOTES HELD MIDODRINE BLOOD PRESSURE 134/74
--- NOTE | 2020-01-12 19:00 | NUR ---
BREAKER OILER NOTES PATIENT IN BED,OBTUNDED,OPENS EYES WITH TRACH/VENT, SETTINGS TOLERATED WELL.WITH GT FEEDING RUNNING NEPRO AT 60ML/HR RATE X 20 HOURS, PATENT TOLERATING WELL. HOB ELEVATED.NEEDS ATTENDED AND ANTICIPATED . KEPT CLEAN DRY AND COMFORTABLE. TURNED AND REPOSITION EVERY 2 HOURS AND NEEDED. SAFETY MEASURES IN PLACE. CALL LIGHT WITHIN REACH. WILL ENDORSE TO NIGHT NURSE FOR CONTINUATION OF CARE.
[2020-01-12 20:00] VITALS: BP 124/46
--- NOTE | 2020-01-12 20:06 | NUR ---
RT NOTE Pt rec'd trached on [facility] [place] vent on AC mode settings as charted. Pt shows no signs of resp distress or sob. Trach is patent and secured. Pt sx'd for thick mod amt of pale yellow secretions. Alarms are set and audible. Vent plugged into red outlet. Wheel locks in place and ambu bag is bedside. Will continue to monitor closely. Addendum: 01/12/20 at 2008 by VITOR TILLMAN RT Amended: Links added.
[2020-01-12 20:16] VITALS: BP 124/46
[2020-01-12] MEDS: LATANOPROST EYE DROP 0.005% 2.5 ML BOTTLE EACHEYE SCH (21:11)
--- NOTE | 2020-01-12 21:40 | NUR ---
CASINO WORKER NOTES ACCU-CHECK BLOOD SUGAR CHECK 235,LANTUS 46 UNITS GIVEN SQ
[2020-01-12] MEDS: INSULIN GLARGINE, 100 UNIT/ML CARTRIDGE SQ SCH (21:44)
[2020-01-13] VITALS (7 sets, daily range): BP systolic 109–147; BP diastolic 40–90
[2020-01-13] MEDS: BLOOD SUGAR DIAGNOSTIC 1 EACH STRIP IN SCH ×5 (01:12→23:53)
[2020-01-13] MEDS: BRIMONIDINE TARTRATE OPHT SOLN 5 ML BOTTLE OP SCH ×3 (01:12→16:39)
[2020-01-13] MEDS: INSULIN REGULAR, HUMAN 100 UNIT/ML 3 ML VIAL SQ PRN ×5 (01:15→23:58)
--- NOTE | 2020-01-13 04:30 | NUR ---
CONSUMER LENDING MANAGER NOTES ACCU-CHECK BLOOD SUGAR CHECK 236,COVERED WITH HUMULIN R 4 UNITS PER SLIDING SCALE.NEPRO GT FEEDING IN PROGRESS.
--- NOTE | 2020-01-13 06:37 | NUR ---
CARD SERVICES SPECIALIST NOTES NO SIGNIFICANT CHANGE IN STATUS.VENT SETTINGS TOLERATED WELL.SUCTION MUCUS NEEDED,MORNING CARE RENDERED,REPOSITIONED PER PROTOCOL,DRESSING CHANGE DONE ON BILATERAL FOOT.DNR STATUS.DISCHARGE PLANNING BACK TO [facility].
--- NOTE | 2020-01-13 07:15 | NUR ---
DIRECTOR SHOPPER MARKETING NOTES RECEIVED ON BED,OBTUNDED,OPEN EYES WITH TRACH/VENT, SETTINGS TOLERATED WELL.WITH GT FEEDING RUNNING NEPRO AT 60ML/HR, PATIENT TOLERATING WELL. HOB ELEVATED. SAFETY MEASURES IN PLACE, CALL LIGHT WITHIN REACH. WILL CONTINUE TO MONITOR ACCORDINGLY.
[2020-01-13] MEDS: MIDODRINE HCL (5MG) 5 MG TABLET GT SCH ×3 (09:00→17:00)
[2020-01-13] MEDS: ZINC SULFATE 220 MG CAPSULE GT SCH (09:00)
[2020-01-13] MEDS: VIT B CMPLX 3/FA/VIT C/BIOTIN 1 TAB TABLET GT SCH (09:00)
[2020-01-13] MEDS: DOCUSATE SODIUM LIQ 100 MG/10 ML UDC GT SCH ×2 (09:00→17:43)
[2020-01-13] MEDS: ASCORBIC ACID 500 MG TABLET GT SCH (09:01)
[2020-01-13] MEDS: LEVETIRACETAM SOL (5 ML) 100 MG/ML UDC GT SCH ×2 (09:01→21:41)
[2020-01-13] MEDS: LACTOBACILLUS RHAMNOSUS GG 1 EACH CAP.SPRINK GT SCH (09:01)
[2020-01-13] MEDS: HEPARIN SODIUM, PORCINE 5000 UNITS/1 ML VIAL IV SCH ×2 (09:02→21:47)
[2020-01-13] MEDS: THERAHONEY GEL 1.5 OZ TUBE TP SCH (09:03)
[2020-01-13] MEDS: DORZOLAMIDE OPTH 2% 10 ML BOTTLE RIGHTEYE SCH ×3 (09:03→16:39)
[2020-01-13] MEDS: PROSOURCE / PROSTAT (PYXIS) 30 ML UDC GT SCH (09:04)
--- NOTE | 2020-01-13 09:06 | NUR ---
ASSET CARD CLERK NOTES HELD MIDODRINE NOTED BLOOD PRESSURE 139/73.
--- NOTE | 2020-01-13 13:26 | NUR ---
RT NOTE PT REMAINS MECHANICALLY VENTILATED VIA CUFFED TRACHEOSTOMY TUBE. CUFF INFLATED. TRACH TUBE MIDLINE ANS SECURE. VENTILATOR SETTINGS PRESCRIBED. ALARMS SET PER PROTOCOL AND AUDIBLE. VENT PLUGGED IN TO RED OUTLET. AMBU BAG AT BED SIDE. NO DISTRESS NOTED AT MOMENT. Addendum: 01/13/20 at 1328 by LILO RAMIREZ RT Amended: Links added.
--- NOTE | 2020-01-13 19:00 | NUR ---
CYBER SECURITY SYSTEMS ENGINEER NOTES PATIENT IN BED,OBTUNDED,OPENS EYES WITH TRACH/VENT, SETTINGS TOLERATED WELL.WITH GT FEEDING RUNNING NEPRO AT 60ML/HR, PATENT TOLERATING WELL. HOB ELEVATED.NEEDS ATTENDED AND ANTICIPATED . KEPT CLEAN DRY AND COMFORTABLE. TURNED AND REPOSITION EVERY 2 HOURS AND NEEDED. SAFETY MEASURES IN PLACE. CALL LIGHT WITHIN REACH. WILL ENDORSE TO NIGHT NURSE FOR CONTINUATION OF CARE.
--- NOTE | 2020-01-13 19:10 | NUR ---
OIL FIELD EQUIPMENT MECHANIC NOTES PT IN BED,OBTUNDED,OPENS EYES WITH TRACH/VENT, SETTINGS TOLERATED WELL.WITH GT FEEDING RUNNING NEPRO AT 60ML/HR, PATENT TOLERATING WELL. HOB ELEVATED. NO S/S OF PAIN AT THIS TIME. SAFETY MEASURES IN PLACE WITH BED IN LOWEST LOCKED POSITION WITH SIDE RAILS UP X2. CALL LIGHT WITHIN REACH. WILL CONTINUE TO MONITOR.
--- NOTE | 2020-01-13 19:55 | NUR ---
RT NOTE Pt rec'd trached on [facility] vent on AC mode settings as charted. Pt shows no signs of resp distress or sob. Trach is patent and secured. Pt sx'd for thick mod amt of pale yellow secretions. Alarms are set and audible. Vent plugged into red outlet. ambu bag is bedside. Will continue to monitor closely. Addendum: 01/13/20 at 5 by VITOR TILLMAN RT Amended: Links added.
[2020-01-13] MEDS: LATANOPROST EYE DROP 0.005% 2.5 ML BOTTLE EACHEYE SCH (21:41)
[2020-01-13] MEDS: INSULIN GLARGINE, 100 UNIT/ML CARTRIDGE SQ SCH (21:46)
[2020-01-14] VITALS: BP 146/64
[2020-01-14] MEDS: INSULIN REGULAR, HUMAN 100 UNIT/ML 3 ML VIAL SQ PRN ×4 (00:05→17:56)
[2020-01-14] MEDS: BRIMONIDINE TARTRATE OPHT SOLN 5 ML BOTTLE OP SCH ×3 (00:06→17:55)
[2020-01-14 04:00] VITALS: BP 151/71
[2020-01-14] MEDS: BLOOD SUGAR DIAGNOSTIC 1 EACH STRIP IN SCH ×3 (05:55→17:42)
--- NOTE | 2020-01-14 07:46 | NUR ---
HEAD TURNING MACHINE OPERATOR NOTES PT IN BED,OBTUNDED,OPENS EYES WITH TRACH/VENT, SETTINGS TOLERATED WELL. WITH GT FEEDING RUNNING NEPRO AT 60ML/HR, PATENT TOLERATING WELL. HOB ELEVATED. PT KEPT CLEAN, DRY, AND COMFORTABLE. NO S/S OF PAIN AT THIS TIME. SAFETY MEASURES IN PLACE WITH BED IN LOWEST LOCKED POSITION WITH SIDE RAILS UP X2. CALL LIGHT WITHIN REACH. WILL ENDORSE TO ONCOMING NURSE FOR SHERRY.
[2020-01-14 08:00] VITALS: BP 137/49
--- NOTE | 2020-01-14 08:00 | NUR ---
MOTOR COACH TOUR OPERATOR OPENING NOTES Received Patient resting in bed. Obtunded. VS stable with no acute distress. Breathing even and unlabored on trachea and vent with no respiratory distress. No signs and symptoms of pain. Telemonitor in place and patent reading SR with HR-91. Gtube in place and patent with Nephro infusing at 60ml/hr. Permacath on left groin intact. 20g PIV on right hand intact, patent and flushing well. Safety precautions in place. Bed locked and set to lowest position with side rails x 2 up. All needs rendered at this time. Call light within reach. Will continue to monitor.
[2020-01-14] MEDS: MIDODRINE HCL (5MG) 5 MG TABLET GT SCH ×3 (09:00→17:00)
[2020-01-14] MEDS: DOCUSATE SODIUM LIQ 100 MG/10 ML UDC GT SCH ×2 (09:30→17:55)
[2020-01-14] MEDS: LEVETIRACETAM SOL (5 ML) 100 MG/ML UDC GT SCH ×2 (09:31→21:46)
[2020-01-14] MEDS: HEPARIN SODIUM, PORCINE 5000 UNITS/1 ML VIAL IV SCH ×2 (09:31→21:47)
[2020-01-14] MEDS: VIT B CMPLX 3/FA/VIT C/BIOTIN 1 TAB TABLET GT SCH (09:32)
[2020-01-14] MEDS: ASCORBIC ACID 500 MG TABLET GT SCH (09:33)
[2020-01-14] MEDS: ZINC SULFATE 220 MG CAPSULE GT SCH (09:33)
[2020-01-14] MEDS: THERAHONEY GEL 1.5 OZ TUBE TP SCH (09:33)
[2020-01-14] MEDS: DORZOLAMIDE OPTH 2% 10 ML BOTTLE RIGHTEYE SCH ×3 (09:34→17:55)
[2020-01-14] MEDS: LACTOBACILLUS RHAMNOSUS GG 1 EACH CAP.SPRINK GT SCH (09:41)
[2020-01-14] MEDS: PROSOURCE / PROSTAT (PYXIS) 30 ML UDC GT SCH (09:41)
[2020-01-14 12:00] VITALS: BP 133/35
[2020-01-14 16:00] VITALS: BP 135/69
--- NOTE | 2020-01-14 19:00 | NUR ---
DISABILITY MANAGER NOTES NOTED GTUBE FEEDING RUNNING NOTED NEW FEEDING STARTED AT 1830 01/14/20.
--- NOTE | 2020-01-14 19:20 | NUR ---
CAFETERIA OR LUNCHROOM CHECKER OPENING NOTES. HD NURSE AT BEDSIDE, RECEIVED PATIENT IN BED HEAD OF BED ELEVATED FOR ASPIRATION PRECAUTIONS, VENT DEPENDENT, MECHANICAL VENT ALARMS AUDIBLE, AMBU BAG BEDSIDE, TOLERATING WELL, ON DIESEL POWERPLANT MECHANIC SR 89,PATIENT IS OBTUNDED, OPENS EYES, RESPIRATIONS EVEN AND UNLABORED WITH EQUAL RISE AND FALL OF CHEST, APPEARS COMFORTABLE NO FACIAL GRIMACING PRESENT, GT INTACT AND PATENT, INFUSING ORDERED, RESIDUALS 5CC.IV SITE TO RIGHT HAND #20G INTACT AND PATENT, NO REDNESS, NO INFILTRATION PRESENT, LEFT GROIN PERMACATH, BOTH HEELS OFFLOADED, ORIENTED TO STAFF AND CALL LIGHT AND KEPT WITHIN REACH, WILL CONTINUE TO MONITOR AND ATTEND TO NEEDS.
[2020-01-14 20:00] VITALS: BP 124/60
--- NOTE | 2020-01-14 20:00 | NUR ---
ELECTRICAL WIRING LINEMAN CLOSING NOTES Patient resting in bed. Obtunded. VS stable with no acute distress. Breathing even and unlabored on trachea and vent with no respiratory distress. No signs and symptoms of pain. Telemonitor in place and patent. Gtube in place and patent with Nephro infusing at 60ml/hr. Permacath on left groin intact. 20g PIV on right hand intact, patent and flushing well. Safety precautions in place. Bed locked and set to lowest position with side rails x 2 up. All needs rendered at this time. Call light within reach. Will endorse plan of care to oncoming shift.
[2020-01-14] MEDS: LATANOPROST EYE DROP 0.005% 2.5 ML BOTTLE EACHEYE SCH (21:57)
[2020-01-14] MEDS: INSULIN GLARGINE, 100 UNIT/ML CARTRIDGE SQ SCH (22:21)
[2020-01-15] VITALS (8 sets, daily range): BP systolic 113–154; BP diastolic 57–87
[2020-01-15] MEDS: BLOOD SUGAR DIAGNOSTIC 1 EACH STRIP IN SCH ×4 (00:16→17:02)
[2020-01-15] MEDS: INSULIN REGULAR, HUMAN 100 UNIT/ML 3 ML VIAL SQ PRN ×3 (00:19→12:16)
[2020-01-15] MEDS: BRIMONIDINE TARTRATE OPHT SOLN 5 ML BOTTLE OP SCH ×3 (00:21→16:40)
--- NOTE | 2020-01-15 06:45 | NUR ---
SUPERVISOR PHOTOSTAT CLOSING NOTES. PATIENT IN BED HEAD OF BED ELEVATED FOR ASPIRATION PRECAUTIONS, VENT DEPENDENT, MECHANICAL VENT ALARMS AUDIBLE, AMBU BAG AT BEDSIDE, TOLERATING WELL, ON LINEN ROOM ATTENDANT SR 89,PATIENT IS OBTUNDED, OPENS EYES, RESPIRATIONS EVEN AND UNLABORED WITH EQUAL RISE AND FALL OF CHEST, APPEARS COMFORTABLE NO FACIAL GRIMACING PRESENT, GT INTACT AND PATENT, INFUSING ORDERED, RESIDUALS 5CC THROUGHOUT SHIFT.IV SITE TO RIGHT HAND #20G INTACT AND PATENT, NO REDNESS, NO INFILTRATION PRESENT, LEFT GROIN PERMACATH INTACT, BOTH HEELS OFFLOADED DRESSING REMAINS C/D/I. SACRAL DRESSING REMAINS INTACT. BED BATH AND ORAL CARE DONE, REPOSITIONED Q2HRS. CALL LIGHT KEPT WITHIN REACH, WILL CONTINUE TO MONITOR AND ATTEND TO NEEDS AND ENDORSE TO NEXT SHIFT.
[2020-01-15 07:13] LABS: BASOPHILS % (AUTO) 0.4 % (0.0-2.0); HEMATOCRIT 28 % (33-45); HEMOGLOBIN 8.8 g/dL (11.5-14.8); LYMPHOCYTES # (AUTO) 1.1 /CMM (0.8-4.8); LYMPHOCYTES % (AUTO) 12.5 % (20.0-44.0); MEAN CORPUSCULAR HGB CONC 31 g/dl (31.0-36.0); MEAN CORPUSCULAR VOLUME 89 fL (82-100); MONOCYTES # (AUTO) 0.6 /CMM (0.1-1.30); MONOCYTES % (AUTO) 6.7 % (2.0-12.0); NEUTROPHILS # (AUTO) 6.8 /CMM (1.8-8.9); NEUTROPHILS % (AUTO) 78.4 % (43.0-81.0); PLATELET COUNT (AUTO) 376 /CMM (150-450); RED BLOOD CELL COUNT(AUTO) 3.17 MIL/uL (4.0-5.2); WHITE BLOOD COUNT (AUTO) 8.7 K/uL (4.3-11.0)
[2020-01-15 07:34] LABS: CALCIUM, SERUM 9.8 mg/dL (8.5-10.1); CREATININE 4.7 mg/dL (0.6-1.3); POTASSIUM 4.3 mmol/L (3.5-5.1)
[2020-01-15] MEDS: LACTOBACILLUS RHAMNOSUS GG 1 EACH CAP.SPRINK GT SCH (09:12)
[2020-01-15] MEDS: ZINC SULFATE 220 MG CAPSULE GT SCH (09:12)
[2020-01-15] MEDS: DOCUSATE SODIUM LIQ 100 MG/10 ML UDC GT SCH ×2 (09:12→16:40)
[2020-01-15] MEDS: LEVETIRACETAM SOL (5 ML) 100 MG/ML UDC GT SCH ×2 (09:12→21:00)
[2020-01-15] MEDS: VIT B CMPLX 3/FA/VIT C/BIOTIN 1 TAB TABLET GT SCH (09:12)
[2020-01-15] MEDS: ASCORBIC ACID 500 MG TABLET GT SCH (09:12)
[2020-01-15] MEDS: MIDODRINE HCL (5MG) 5 MG TABLET GT SCH ×3 (09:12→16:40)
[2020-01-15] MEDS: PROSOURCE / PROSTAT (PYXIS) 30 ML UDC GT SCH (09:12)
[2020-01-15] MEDS: DORZOLAMIDE OPTH 2% 10 ML BOTTLE RIGHTEYE SCH ×3 (09:12→16:40)
[2020-01-15] MEDS: HEPARIN SODIUM, PORCINE 5000 UNITS/1 ML VIAL IV SCH ×2 (09:13→21:18)
[2020-01-15] MEDS: THERAHONEY GEL 1.5 OZ TUBE TP SCH (09:13)
--- NOTE | 2020-01-15 17:04 | NUR ---
rn notes blood sugar at 182, no coverage given for now because feeding tube was accidentally dislodged.
--- NOTE | 2020-01-15 17:04 | NUR ---
rn notes g tube feeding found to be dislodged. Charge nurse placed a temporary line, KUB ordered at this time.
--- NOTE | 2020-01-15 18:31 | NUR ---
rn notes Patient remains on a ventilator, no sob noted, patient found to have removed her feeding tube. Charge Nurse placed a lau cath at this time to keep hole patent, KUB done and is in place at this time. Dr. Jha notified and is coming tomorrow. Nephro feeding on hold at this time, no insulin coverage for the night coverage. R hand 20 present. L groin permacath. Bed at the lowest setting, call light within reach, side rails up x2.
--- NOTE | 2020-01-15 19:45 | NUR ---
WOOD BARREL RECONDITIONER OPENING NOTES RECEIVED PATIENT FROM MORNING SHIFT, OBTUNDED OPENS EYES. BREATHING REGULAR AND UNLABORED ON MECHANICAL VENT, LATEST SPO2 99%. TRACH INTACT AND PATENT. RIGHT HAND G20 IV LINE INTACT AND PATENT, FLUSHING WELL WITH NO BLEEDING OR S/S OF INFILTRATION NOTED. ON CARDIAC MONITORING WITH NSR AT 92bpm. GTUBE DISLODGED, STONE CATH IN TO KEEP STOMA OPEN. LEFT GROIN PERMACATH INTACT WITH NO BLEEDING SEEN. NO S/S OF PAIN/DISCOMFORT NOTED AT THIS TIME. BED LOW AND LOCKED ON SEMI FOWLERS POSITION, CALL LIGHT IN REACH. WILL CONTINUE TO MONITOR.
[2020-01-15] MEDS: INSULIN GLARGINE, 100 UNIT/ML CARTRIDGE SQ SCH (22:00)
[2020-01-15] MEDS: LATANOPROST EYE DROP 0.005% 2.5 ML BOTTLE EACHEYE SCH (22:49)
[2020-01-15] MEDS ORDERED: IV D5/0.45 NACL 1,000 ML IV PRN (23:00)
[2020-01-16] VITALS: BP 100/66
[2020-01-16] MEDS: INSULIN REGULAR, HUMAN 100 UNIT/ML 3 ML VIAL SQ PRN ×2 (00:27→05:20)
[2020-01-16] MEDS: BLOOD SUGAR DIAGNOSTIC 1 EACH STRIP IN SCH ×3 (00:27→12:56)
--- NOTE | 2020-01-16 00:30 | NUR ---
COPPER PLATER NOTES BS 134mg/dl, NO INSULIN COVERAGE GIVEN; PATIENT ON NPO FOR GTUBE EVAL. IV FLUIDS INFUSING WELL. WILL CONTINUE TO MONITOR.
[2020-01-16] MEDS: BRIMONIDINE TARTRATE OPHT SOLN 5 ML BOTTLE OP SCH ×3 (00:32→17:03)
--- NOTE | 2020-01-16 06:30 | NUR ---
DIRECTOR OF PERIOPERATIVE SERVICES CLOSING NOTES PATIENT IN BED, OBTUNDED OPENS EYES. AFEBRILE WITH NO S/S OF DISTRESS OBSERVED. TRACH INTACT AND PATENT, CURRENT MECHANICAL VENT SETTINGS TOLERATING WELL. LATEST SPO2 100%. RIGHT HAND G20 IV LINE PATENT AND INFUSING WELL. MAINTAINED ON CARDIAC MONITORING WITH NSR AT 82bpm. GTUBE DISLODGED, STONE CATH IN TO KEEP STOMA OPEN, ON NPO. NO S/S OF PAIN/DISCOMFORT NOTED AT THIS TIME. BED LOW AND LOCKED ON SEMI FOWLERS POSITION, CALL LIGHT IN REACH. WILL ENDORSE TO MORNING SHIFT FOR SHERRY.
[2020-01-16 08:00] VITALS: BP 144/76
--- NOTE | 2020-01-16 08:00 | NUR ---
SILVICULTURE TEACHER OPENING NOTES Received Patient resting in bed. Obtunded. VS stable with no acute distress. Breathing even and unlabored on trachea and vent with no respiratory distress. No signs and symptoms of pain. Telemonitor in place and patent reading SR with HR-86. Beckman Cath in Gtube stoma in place. Permacath on left groin intact. 20g PIV on right hand intact, patent and flushing well with D51/2NS infusing at 75ml/hr. Safety precautions in place. Bed locked and set to lowest position with side rails x 2 up. All needs rendered at this time. Call light within reach. Will continue to monitor.
[2020-01-16] MEDS: MIDODRINE HCL (5MG) 5 MG TABLET GT SCH ×4 (08:34→17:32)
[2020-01-16] MEDS: HEPARIN SODIUM, PORCINE 5000 UNITS/1 ML VIAL IV SCH (08:36)
[2020-01-16] MEDS: DORZOLAMIDE OPTH 2% 10 ML BOTTLE RIGHTEYE SCH ×3 (08:40→17:03)
[2020-01-16] MEDS: LACTOBACILLUS RHAMNOSUS GG 1 EACH CAP.SPRINK GT SCH (08:41)
[2020-01-16] MEDS: THERAHONEY GEL 1.5 OZ TUBE TP SCH (08:41)
[2020-01-16] MEDS: DOCUSATE SODIUM LIQ 100 MG/10 ML UDC GT SCH ×2 (08:41→17:02)
[2020-01-16] MEDS: LEVETIRACETAM SOL (5 ML) 100 MG/ML UDC GT SCH (08:42)
[2020-01-16] MEDS: PROSOURCE / PROSTAT (PYXIS) 30 ML UDC GT SCH (08:42)
[2020-01-16] MEDS: ASCORBIC ACID 500 MG TABLET GT SCH (08:42)
[2020-01-16] MEDS: VIT B CMPLX 3/FA/VIT C/BIOTIN 1 TAB TABLET GT SCH (08:42)
[2020-01-16] MEDS: ZINC SULFATE 220 MG CAPSULE GT SCH (08:43)
--- NOTE | 2020-01-16 11:33 | NUR ---
RT NOTE PT REMAINS MECHANICALLY VENTILATED VIA CUFFED TRACHEOSTOMY TUBE. CUFF INFLATED. TRACH TUBE MIDLINE ANS SECURE. VENTILATOR SETTINGS PRESCRIBED. ALARMS SET PER PROTOCOL AND AUDIBLE. VENT PLUGGED IN TO RED OUTLET. AMBU BAG AT BED SIDE. NO DISTRESS NOTED AT MOMENT. Addendum: 01/16/20 at 1133 by LILO RAMIREZ RT Amended: Links added.
[2020-01-16] MEDS: ACETAMINOPHEN 325 MG TABLET PO PRN (15:38)
[2020-01-16 16:00] VITALS: BP 122/55
[2020-01-16 17:32] VITALS: BP 80/35
--- NOTE | 2020-01-16 18:20 | NUR ---
POST HOLE DIGGERMANAGER PAYMENT NOTES Patient discharged for [facility] at this time. Obtunded. Patient in stable condition. VS stable with no acute distress. Breathing even and unlabored on trachea and vent. No signs and symptom of pain. Skin assessment photos taken and placed in chart. Patient obtunded unable to review and explain medication reconciliation and discharge orders at this time. All belongings with Patient. Patient will follow up with PCP at SNF. Patient picked up by ambulance transport. Report given to Thao BRAVO. Addendum: 01/16/20 at 1844 by YANDY BARRON RN ADDITIONALLY Removed intact PIV on right hand. Gtube in place and patent.
== END 2020-01-16 18:20 | DRG 463 ==
LOC: ER 23:37 → MEDSG1 01-07 02:39 → TELE1 01-07 18:28 → MED 01-08 20:13 → TELE 01-08 20:41
PROVIDERS: ADMIT Internal Medicine; ATTEND Internal Medicine
PROC: 5A1955Z Respiratory Ventilation, Greater than 96 Consecutive Hours (ICD-10-PCS; 2020-01-07)
PROC: 5A1D70Z Performance of Urinary Filtration, Intermittent, Less than 6 Hours Per Day (ICD-10-PCS; 2020-01-07)
PROC: 0JBQ0ZZ Excision of Right Foot Subcutaneous Tissue and Fascia, Open Approach (ICD-10-PCS; principal; 2020-01-10)
PROC: 0LBW0ZZ Excision of Left Foot Tendon, Open Approach (ICD-10-PCS; 2020-01-10)
DX: S43.014A Anterior dislocation of right humerus, initial encounter (principal); N18.6 End stage renal disease; E43 Unspecified severe protein-calorie malnutrition; R53.2 Functional quadriplegia; G93.1 Anoxic brain damage, not elsewhere classified; I13.2 Hypertensive heart and chronic kidney disease with heart failure and with stage 5 chronic kidney disease, or end stage renal disease; J96.11 Chronic respiratory failure with hypoxia; D68.59 Other primary thrombophilia; J98.11 Atelectasis; L97.419 Non-pressure chronic ulcer of right heel and midfoot with unspecified severity; L97.429 Non-pressure chronic ulcer of left heel and midfoot with unspecified severity; Z99.11 Dependence on respirator [ventilator] status; G93.49 Other encephalopathy; Z66 Do not resuscitate; Z51.5 Encounter for palliative care; D63.1 Anemia in chronic kidney disease; X58.XXXA Exposure to other specified factors, initial encounter; Y92.9 Unspecified place or not applicable; E11.22 Type 2 diabetes mellitus with diabetic chronic kidney disease; E11.621 Type 2 diabetes mellitus with foot ulcer; E11.622 Type 2 diabetes mellitus with other skin ulcer; E11.65 Type 2 diabetes mellitus with hyperglycemia; E11.51 Type 2 diabetes mellitus with diabetic peripheral angiopathy without gangrene; E78.5 Hyperlipidemia, unspecified; G40.909 Epilepsy, unspecified, not intractable, without status epilepticus; I25.10 Atherosclerotic heart disease of native coronary artery without angina pectoris; I50.9 Heart failure, unspecified; K21.9 Gastro-esophageal reflux disease without esophagitis; L97.529 Non-pressure chronic ulcer of other part of left foot with unspecified severity; Z87.820 Personal history of traumatic brain injury; Z93.1 Gastrostomy status; Z93.0 Tracheostomy status; Z90.710 Acquired absence of both cervix and uterus; Z86.69 Personal history of other diseases of the nervous system and sense organs; Z79.4 Long term (current) use of insulin; R13.10 Dysphagia, unspecified; Z79.899 Other long term (current) drug therapy; Z79.51 Long term (current) use of inhaled steroids; Z87.01 Personal history of pneumonia (recurrent); F32.9 Major depressive disorder, single episode, unspecified; F41.9 Anxiety disorder, unspecified; Z99.2 Dependence on renal dialysis; N25.0 Renal osteodystrophy; E66.9 Obesity, unspecified; Z68.27 Body mass index [BMI] 27.0-27.9, adult; L98.9 Disorder of the skin and subcutaneous tissue, unspecified; L89.326 Pressure-induced deep tissue damage of left buttock; M62.40 Contracture of muscle, unspecified site
CPT/HCPCS: 31720; 36415; 71045-TC; 73030-TC; 74018; 80048-TC; 80061-TC; 82962-TC; 83735-TC; 84100-TC; 85025-TC; 85730-TC; 87081-TC; 90935-TC; 94003-TC; 94640; 94760-TC; 94762-TC; 94799-TC; 99082-TC; A4217; A4623; A6253; A6403; G0378; G0500; J1644; J1815; J1953; J2704; J2997; J3490; J7040; J7050; U0003-CS